=== PATIENT | female | born 1940 | race African-American/Black ===

== ENCOUNTER 2016-09-13 11:09 | Emergency (ER) | payer MEDICARE, MEDICAID ==
[~2016-09-13] VITALS: Ht 167.6 cm; Wt 68.0 kg
[~2016-09-13 11:09] MED LIST: ACETAMINOP160 MG/54 ORAL; ATORVASTATIN CA20 MG ORAL; FUROSEMIDE20 M1 ORAL; LANTUS5 UNITS SUBQ; LISINOPRIL2.5 MG ORAL; METFORMIN HCL500 M1 ORAL; NORCO 5-325 TA1 EACH ORAL
--- NOTE | 2016-09-13 11:26 | Emergency Room Report ---
History of Present Illness General Chief Complaint: Edema Source: Patient, EMS Present Illness HPI Patient is a 75-year-old female who presented after increased bilateral lower extremity swelling. Patient had a recent history of fracture to her right hip. This was treated nonoperatively. Patient had no recent fever. jail had noticed increased swelling to both legs. She had not been vomiting. She had gradual onset of symptoms. Allergies: Coded Allergies: No Known Allergies (Verified , 12/31/09) Patient History Past Medical History: see triage record Reviewed Nursing Documentation: PMH: Agreed, PSxH: Agreed Nursing Documentation-PMH Past Medical History: No History, Except For Hx Hypertension: Yes Hx Pacemaker: No Hx Asthma: No Hx COPD: No Hx Diabetes: Yes Hx Cancer: No Hx Gastrointestinal Problems: No Hx Dialysis: No Hx Neurological Problems: No Hx Cerebrovascular Accident: No Hx Seizures: No Review of Systems All Other Systems: limited - by mental status Physical Exam Vital Signs Date Time Temp Pulse Resp B/P Pulse Ox O2 Delivery O2 Flow Rate FiO2 09/13/16 11:04 98.4 68 20 124/72 98 Room Air Sp02 EP Interpretation: reviewed, normal General Appearance: normal inspection, well appearing, no apparent distress, alert, GCS 15 Head: atraumatic ENT: normal ENT inspection, hearing grossly normal, normal voice Neck: normal inspection, full range of motion, supple, no bony tend Respiratory: normal inspection, no respiratory distress, no retraction, rales Cardiovascular #1: regular rate, rhythm, edema - bilateral lower extremity mild Gastrointestinal: normal inspection, normal bowel sounds, non tender, soft, no guarding, no hernia Genitourinary: no CVA tenderness Musculoskeletal: normal inspection, back normal, normal range of motion, tender - right leg externally rotated, shortened Neurologic: normal inspection, alert, responsive, speech normal Psychiatric: normal inspection, judgement/insight normal, mood/affect normal Skin: normal inspection, normal color, no rash Medical Decision Making Diagnostic Impression: Primary Impression: Edema ER Course Patient presented for lower extremity edema. Because of complexity of patient's case laboratory testing and imaging studies were ordered. The patient had known hip fracture. The a duplex ultrasound of the patient's bilateral lower extremity showed no evidence of deep venous thrombosis. Laboratory testing was unremarkable. The patient was noted to have minimal edema. Patient was sent back to her custodial. The patient was to return if she began having increased shortness of breath fever or other concerns Labs Test 09/13/16 11:48 09/13/16 14:11 White Blood Count 7.6 K/UL (4.8-10.8) Red Blood Count 3.88 M/UL (4.20-5.40) Hemoglobin 11.1 G/DL (12.0-16.0) Hematocrit 34.9 % (37.0-47.0) Mean Corpuscular Volume 90 FL (80-99) Mean Corpuscular Hemoglobin 28.6 PG (27.0-31.0) Mean Corpuscular Hemoglobin Concent 31.8 G/DL (32.0-36.0) Red Cell Distribution Width 13.8 % (11.6-14.8) Platelet Count 265 K/UL (150-450) Mean Platelet Volume 6.3 FL (6.5-10.1) Neutrophils (%) (Auto) 75.3 % (45.0-75.0) Lymphocytes (%) (Auto) 17.5 % (20.0-45.0) Monocytes (%) (Auto) 5.9 % (1.0-10.0) Eosinophils (%) (Auto) 0.6 % (0.0-3.0) Basophils (%) (Auto) 0.6 % (0.0-2.0) Sodium Level 142 mEQ/L (135-145) Potassium Level 4.3 mEQ/L (3.4-4.9) Chloride Level 101 mEQ/L (98-107) Carbon Dioxide Level 29 mEQ/L (20-30) Anion Gap 12 (5-15) Blood Urea Nitrogen 17 mg/dL (7-23) Creatinine 0.8 mg/dL (0.5-0.9) Estimat Glomerular Filtration Rate mL/min (>60) Glucose Level 182 mg/dL (74-106) Lactic Acid Level 1.30 mmol/L (0.66-2.22) Calcium Level 9.1 mg/dL (8.6-10.2) Total Bilirubin 0.5 mg/dL (0.0-1.2) Aspartate Amino Transf (AST/SGOT) 21 U/L (5-40) Alanine Aminotransferase (ALT/SGPT) 15 U/L (3-33) Alkaline Phosphatase 121 U/L (35-104) Total Creatine Kinase 46 U/L (26-140) Creatine Kinase MB < 1.5 ng/mL (< 3.8) Creatine Kinase MB Relative Index 3.2 Troponin I < 0.30 ng/mL (<=0.30) Pro-B-Type Natriuretic Peptide 304 pg/mL (0-450) Total Protein 7.2 g/dL (6.6-8.7) Albumin 3.7 g/dL (3.5-5.2) Globulin 3.5 g/dL Albumin/Globulin Ratio 1.0 (1.0-2.7) Urine Color Pale yellow Urine Appearance Clear Urine pH 5 (4.5-8.0) Urine Specific [place] 1.010 (1.005-1.035) Urine Protein Negative (NEGATIVE) Urine Glucose (UA) Negative (NEGATIVE) Urine Ketones Negative (NEGATIVE) Urine Occult Blood Negative (NEGATIVE) Urine Nitrite Negative (NEGATIVE) Urine Bilirubin Negative (NEGATIVE) Urine Urobilinogen Normal MG/DL (0.0-1.0) Urine Leukocyte Esterase Negative (NEGATIVE) Last Vital Signs Date Time Temp Pulse Resp B/P Pulse Ox O2 Delivery O2 Flow Rate FiO2 09/13/16 11:04 98.4 68 20 124/72 98 Room Air Status: improved Disposition: XF SNF Condition: Stable Kanu Ornelas Sep 13, 2016 11:26
[2016-09-13 11:30] VITALS: BP 127/82
[2016-09-13 12:00] LABS: BASOPHILS % (AUTO) 0.6 % (0.0-2.0); EOSINOPHILS % (AUTO) 0.6 % (0.0-3.0); LYMPHOCYTES % (AUTO) 17.5 % (20.0-45.0); MEAN CORPUSCULAR HEMOGLOBIN 28.6 PG (27.0-31.0); MEAN CORPUSCULAR HGB CONC 31.8 G/DL (32.0-36.0); MEAN CORPUSCULAR VOLUME 90 FL (80-99); MEAN PLATELET VOLUME 6.3 FL (6.5-10.1); MONOCYTES % (AUTO) 5.9 % (1.0-10.0); NEUTROPHILS % (AUTO) 75.3 % (45.0-75.0); PLATELET COUNT 265 K/UL (150-450); RED BLOOD COUNT 3.88 M/UL (4.20-5.40); RED CELL DISTRIBUTION WIDTH 13.8 % (11.6-14.8); WHITE BLOOD COUNT 7.6 K/UL (4.8-10.8)
[2016-09-13 12:10] LABS: ALANINE AMINOTRANSFERASE 15 U/L (3-33); ANION GAP 12 (5-15); ASPARTATE AMINO TRANSFERASE 21 U/L (5-40); CALCIUM 9.1 mg/dL (8.6-10.2); CARBON DIOXIDE 29 mEQ/L (20-30); CHLORIDE 101 mEQ/L (98-107); CREATININE 0.8 mg/dL (0.5-0.9); HEMOLYSIS 9; POTASSIUM 4.3 mEQ/L (3.4-4.9); SODIUM 142 mEQ/L (135-145); TOTAL PROTEIN 7.2 g/dL (6.6-8.7); TROPONIN I < 0.30 ng/mL (<=0.30)
[2016-09-13 12:21] LABS: CKMB < 1.5 ng/mL (< 3.8)
[2016-09-13] MEDS ORDERED: MILK OF MA400 MG/51 ORAL (14:24)
[2016-09-13] MEDS ORDERED: VITAMIN C250 MG ORAL (14:24)
[2016-09-13] MEDS ORDERED: DOCUSATE SODIU100 MG ORAL (14:24)
[2016-09-13] MEDS ORDERED: MULTIVITAMINS1 EAC8 ORAL (14:24)
[2016-09-13] MEDS ORDERED: PRO-STAT LIQUID30 ML ORAL (14:24)
[2016-09-13 14:39] LABS: APPEARANCE,URINE CLEAR; KETONES,URINE NEGATIVE (NEGATIVE); LEUKOCYTE ESTERASE ,URINE NEGATIVE (NEGATIVE); NITRITE,URINE NEGATIVE (NEGATIVE); PH,URINE 5 (4.5-8.0); PROTEIN,URINE NEGATIVE (NEGATIVE); UROBILINOGEN,URINE NORMAL MG/DL (0.0-1.0)
[2016-09-13 16:00] VITALS: BP 118/75
[2016-09-13 16:14] VITALS: BP 118/75
--- NOTE | 2016-09-14 10:29 | Diagnostic Imaging Report ---
Indication: Dyspnea Comparison: 08/12/16 A single view chest radiograph was obtained. Findings: Cardiomegaly is present but stable. Lung volumes are low on the current study. There is no definite infiltrate identified. Aorta is enlarged. Bones are osteopenic. Vascular calcifications are present. Impression: No acute disease
--- NOTE | 2016-09-16 18:02 | Cardiology Report ---
APPROVED REPORT EKG Measurement Heart [id number] Unusual P axis and short OR, probable junctional rhythm Abnormal ECG
--- NOTE | 2016-09-16 23:19 | Diagnostic Imaging Report ---
APPROVED REPORT CPT Code: 66242 Present Symptoms Lower Extremity Pain: Bilateral BILATERAL: Imaging reveals a patent deep venous system bilaterally. There is no evidence of thrombus within the femoral, popliteal or tibial segments. The greater saphenous veins are also within normal limits. Doppler indicates normal spontaneous flow within these segments.
== END 2016-09-13 16:14 ==
LOC: EDBD 11:09 → EMR 12:54
DX: R60.9 Edema, unspecified (principal); E11.9 Type 2 diabetes mellitus without complications; I10 Essential (primary) hypertension
CPT/HCPCS: 36415; 71010; 80053; 81003; 82550; 82553; 82962; 83605; 83880; 84484; 85025; 87040; 93005; 93970; 99283

== ENCOUNTER 2016-10-27 03:04 | Inpatient (IN) | payer MEDICAID, MEDICARE ==
[~2016-10-27] VITALS: Ht 154.9 cm; Wt 59.0 kg
[2016-10-27] VITALS (7 sets, daily range): BP systolic 126–165; BP diastolic 64–87
[~2016-10-27 03:04] MED LIST changes: +DOCUSATE SODIU100 MG ORAL; +MILK OF MA400 MG/51 ORAL; +MULTIVITAMINS1 EAC8 ORAL; +PRO-STAT LIQUID30 ML ORAL; +VITAMIN C250 MG ORAL
[2016-10-27] MEDS ORDERED: D5 1/2NS 1,000 ML IV SCH (03:15)
[2016-10-27 04:20] LABS: MEAN CORPUSCULAR HEMOGLOBIN 26.9 PG (27.0-31.0); MEAN CORPUSCULAR HGB CONC 31.2 G/DL (32.0-36.0); MEAN CORPUSCULAR VOLUME 86 FL (80-99); MEAN PLATELET VOLUME 6.7 FL (6.5-10.1); PLATELET COUNT 272 K/UL (150-450); RED BLOOD COUNT 4.21 M/UL (4.20-5.40); RED CELL DISTRIBUTION WIDTH 13.4 % (11.6-14.8); WHITE BLOOD COUNT 11.6 K/UL (4.8-10.8)
--- NOTE | 2016-10-27 04:27 | Emergency Room Report ---
History of Present Illness General Chief Complaint: Abnormal Labs Source: Patient Present Illness HPI 76-year-old female presents ED for evaluation. Per EMS patient was hypoglycemic at convalescent home. Accu-Chek was in the 30s. Patient was given glucagon in the field. Accu-Chek in ED slightly improved. Per EMS patient had blood sugar greater than 400 last night and was then given insulin by nursing staff. Upon arrival patient is lethargic but awake. Protecting airway. Unable to provide any additional history at this time. No reported fevers chills. No reported chest pain shortness of breath. No other aggravating relieving factors. No other associated symptoms Allergies: Coded Allergies: No Known Allergies (Verified , 12/31/09) Patient History Past Medical History: DM, HTN Pertinent Family History: none Social History: Denies: alcohol use, drug use, smoking Now: No Immunizations: UTD Reviewed Nursing Documentation: PMH: Agreed, PSxH: Agreed Nursing Documentation-PMH Hx Hypertension: Yes Hx Pacemaker: No Hx Asthma: No Hx COPD: No Hx Diabetes: Yes Hx Cancer: No Hx Gastrointestinal Problems: No Hx Dialysis: No Hx Neurological Problems: No Hx Cerebrovascular Accident: No Hx Seizures: No Review of Systems All Other Systems: negative except mentioned in HPI Physical Exam Vital Signs Date Time Temp Pulse Resp B/P Pulse Ox O2 Delivery O2 Flow Rate FiO2 10/27/16 03:13 97.2 70 21 144/70 100 Room Air Sp02 EP Interpretation: reviewed, normal General Appearance: lethargic, thin Head: normocephalic Eyes: bilateral eye PERRL, bilateral eye normal inspection ENT: normal ENT inspection Neck: full range of motion Respiratory: chest non-tender, lungs clear, normal breath sounds, speaking full sentences Cardiovascular #1: regular rate, rhythm, no edema Gastrointestinal: normal bowel sounds, non tender, soft, non-distended, no guarding, no rebound Rectal: deferred Genitourinary: no CVA tenderness Musculoskeletal: normal inspection Neurologic: other - lethargic Psychiatric: other - lethargic Skin: normal inspection Lymphatic: normal inspection Medical Decision Making Diagnostic Impression: Primary Impression: Hypoglycemia ER Course Hospital Course 76-year-old female presenting to ED with lethargy, low FS in field. Given glucagon Differential diagnoses include: dehyration, sepsis, hypoglycemia Clinical course Patient placed on stretcher. 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 Accu-Chek in ED in his 70s. After initial history and physical I ordered labs, D5 1/2 NS Labs-glucose 230, electrolytes ok, noted leukocytosis, hb/hct stable, UA + bacteria antibiotics given. Patient on long-acting medications and will require admission. Case discussed with Dr. Michaels and he agreed to accept the patient to his service for further care and support i. I feel this is a highly complex case requiring extensive working including EKG/Rhythm strip, Xray/CT/US, Blood/urine lab work, repeat exams while in ED, and administration of strong opiates/narcotics for pain control, admission to hospital or close patient follow up. diagnosis - hypoglycemia admitted to floor in serious condition Labs Test 10/27/16 03:54 10/27/16 04:17 White Blood Count 11.6 K/UL (4.8-10.8) Red Blood Count 4.21 M/UL (4.20-5.40) Hemoglobin 11.3 G/DL (12.0-16.0) Hematocrit 36.3 % (37.0-47.0) Mean Corpuscular Volume 86 FL (80-99) Mean Corpuscular Hemoglobin 26.9 PG (27.0-31.0) Mean Corpuscular Hemoglobin Concent 31.2 G/DL (32.0-36.0) Red Cell Distribution Width 13.4 % (11.6-14.8) Platelet Count 272 K/UL (150-450) Mean Platelet Volume 6.7 FL (6.5-10.1) Neutrophils (%) (Auto) % (45.0-75.0) Lymphocytes (%) (Auto) % (20.0-45.0) Monocytes (%) (Auto) % (1.0-10.0) Eosinophils (%) (Auto) % (0.0-3.0) Basophils (%) (Auto) % (0.0-2.0) Sodium Level 142 mEQ/L (135-145) Potassium Level 3.5 mEQ/L (3.4-4.9) Chloride Level 105 mEQ/L (98-107) Carbon Dioxide Level 19 mEQ/L (20-30) Anion Gap 18 (5-15) Blood Urea Nitrogen 23 mg/dL (7-23) Creatinine 0.8 mg/dL (0.5-0.9) Estimat Glomerular Filtration Rate mL/min (>60) Glucose Level 230 mg/dL (74-106) Calcium Level 8.6 mg/dL (8.6-10.2) Total Bilirubin 0.3 mg/dL (0.0-1.2) Aspartate Amino Transf (AST/SGOT) 26 U/L (5-40) Alanine Aminotransferase (ALT/SGPT) 20 U/L (3-33) Alkaline Phosphatase 99 U/L (35-104) Total Creatine Kinase 56 U/L (26-140) Troponin I < 0.30 ng/mL (<=0.30) Total Protein 7.1 g/dL (6.6-8.7) Albumin 3.5 g/dL (3.5-5.2) Globulin 3.6 g/dL Albumin/Globulin Ratio 0.9 (1.0-2.7) Urine Color Yellow Urine Appearance Slightly cloudy Urine pH 5 (4.5-8.0) Urine Specific [place] 1.020 (1.005-1.035) Urine Protein 2+ (NEGATIVE) Urine Glucose (UA) 1+ (NEGATIVE) Urine Ketones Negative (NEGATIVE) Urine Occult Blood 1+ (NEGATIVE) Urine Nitrite Negative (NEGATIVE) Urine Bilirubin Negative (NEGATIVE) Urine Urobilinogen Normal MG/DL (0.0-1.0) Urine Leukocyte Esterase 1+ (NEGATIVE) Urine RBC 2-4 /HPF (0 - 2) Urine WBC 0-2 /HPF (0 - 2) Urine Squamous Epithelial Cells Few /LPF (NONE/OCC) Urine Calcium Oxalate Crystals Many /LPF (NONE) Urine Bacteria Few /HPF (NONE) Urine Fine Granular Casts 2-4 /LPF (NONE) Urine Coarse Granular Casts 5-10 /LPF (NONE) EKG Diagnostic Results Rate: normal Rhythm: NSR ST Segments: no acute changes ASA given to the pt in ED: No Rhythm Strip Diag. Results EP Interpretation: yes Rhythm: NSR, no PVC's, no ectopy Chest X-Ray Diagnostic Results EP Interpretation: Yes Findings: no consolidation, no effusion, no pneumothorax, no acute cardiopulmonary disease, other - cardiomegaly Number of Views: 1 Last Vital Signs Date Time Temp Pulse Resp B/P Pulse Ox O2 Delivery O2 Flow Rate FiO2 10/27/16 03:13 97.2 70 21 144/70 100 Room Air Status: improved Disposition: ADMITTED INPATIENT Condition: Serious Referrals: YAQUELIN MICHAELS (PCP) ELYSIA THOMSON M.D. Oct 27, 2016 04:26
[2016-10-27 04:41] LABS: APPEARANCE,URINE SLIGHTLY CLOUDY; KETONES,URINE NEGATIVE (NEGATIVE); LEUKOCYTE ESTERASE ,URINE 1+ (NEGATIVE); NITRITE,URINE NEGATIVE (NEGATIVE); PH,URINE 5 (4.5-8.0); PROTEIN,URINE 2+ (NEGATIVE); UROBILINOGEN,URINE NORMAL MG/DL (0.0-1.0)
[2016-10-27 04:50] LABS: BACTERIA,URINE FEW /HPF; CALCIUM OXALATE CRYSTALS,UR MANY /LPF; SQUAMOUS EPITHELIAL CELL,UR FEW /LPF (NONE/OCC); WBC,URINE 0-2 /HPF (0 - 2)
[2016-10-27 05:02] LABS: TROPONIN I < 0.30 ng/mL (<=0.30)
[2016-10-27 05:05] LABS: ALANINE AMINOTRANSFERASE 20 U/L (3-33); ALBUMIN/GLOBULIN RATIO 0.9 (1.0-2.7); ANION GAP 18 (5-15); ASPARTATE AMINO TRANSFERASE 26 U/L (5-40); CALCIUM 8.6 mg/dL (8.6-10.2); CARBON DIOXIDE 19 mEQ/L (20-30); CHLORIDE 105 mEQ/L (98-107); CREATININE 0.8 mg/dL (0.5-0.9); HEMOLYSIS 9; POTASSIUM 3.5 mEQ/L (3.4-4.9); SODIUM 142 mEQ/L (135-145); TOTAL PROTEIN 7.1 g/dL (6.6-8.7)
[2016-10-27] MEDS ORDERED: cefTRIAXone 1 GM in NS 55 ML IVPB ONE (05:15)
[2016-10-27] MEDS ORDERED: Mylanta II UD 30ml ORAL PRN (07:15)
[2016-10-27] MEDS ORDERED: Miralax 17gm pkt ORAL PRN (07:15)
[2016-10-27] MEDS ORDERED: Nitroglycerin Subl 0.4mg tab (Bottle Of 25) SL PRN (07:15)
[2016-10-27] MEDS ORDERED: DuoNeb 0.5-3(2.5)mg/3ml neb HHN PRN (07:15)
[2016-10-27 07:22] LABS: CKMB 1.8 ng/mL (< 3.8)
[2016-10-27] MEDS ORDERED: Cefepime HCl 1 GM in D5W 55 ML IV SCH (09:00)
--- NOTE | 2016-10-27 10:00 | Cardiology Report ---
APPROVED REPORT EKG Measurement Heart [id number] [place] 102P [id number] Ectopic atrial rhythm vs accelerated junctional rhythm Nonspecific T wave abnormality Abnormal ECG
[2016-10-27] MEDS: Cefepime HCl 1 GM in D5W 55 ML IV SCH (10:53)
--- NOTE | 2016-10-27 10:54 | Diagnostic Imaging Report ---
Indication: Chest Pain Comparison: 09/13/16 A single view chest radiograph was obtained. Findings: The heart is enlarged. Central vascular prominence demonstrated. Bones are osteopenic. Impression: No acute findings accounting for low lung volumes
[2016-10-27] MEDS: Lisinopril 2.5mg tab ORAL SCH (10:56)
[2016-10-27] MEDS: Heparin 5000 units/ml inj SUBQ SCH ×2 (10:59→20:56)
[2016-10-27] MEDS: NovoLOG Insulin Flexpen SUBQ SCH ×3 (11:36→20:59)
--- NOTE | 2016-10-27 16:06 | Consultation ---
Consult Note Consult Note ID CONSULT: Dict# [id number] Assessment/Plan ASSESSMENT: 76 y/o female with: // Leukocytosis - mild, afebrile r/o infection vs stress - UA benign, CXR: NAF // DM with hypo/hyperglycemia // NH resident // NKDA // Full Code PLAN: - continue empiric cefepime d# 1 - f/u cultures - monitor CBC, temperatures - monitor BMP - glucose control Thanks! Will follow ANDREA THURMAN Oct 27, 2016 16:06
--- NOTE | 2016-10-27 17:11 | History and Physical ---
History of Present Illness General Date patient seen: Oct 27, 2016 Reason for Hospitalization: Abnormal Labs Present Illness HPI 76-year-old female with hx of DM, dementia, bed ridden, recent fx of femur, detention resident presents ED with CC of hypoglycemic at convalescent home. Accu-Chek was in the 30s. Patient was given glucagon in the field. Accu -Chek in ED slightly improved. Per EMS patient had blood sugar greater than 400 last night and was then given insulin by nursing staff. Upon arrival patient is lethargic but awake. She was also found to have leukocytosis and UTI and admitted for further w/u. Allergies: Coded Allergies: No Known Allergies (Verified , 12/31/09) Medication History Scheduled Amino Acids/Protein Hydrolys (Pro-Stat Liquid), 30 ML ORAL TWICE A DAY, ( Reported) Ascorbic Acid* (Vitamin C*), 250 MG ORAL DAILY, (Reported) Atorvastatin Calcium* (Atorvastatin Calcium*), 10 MG ORAL BEDTIME, (Reported) Docusate Sodium* (Docusate Sodium*), 100 MG ORAL BID, (Reported) Furosemide* (Lasix*), 20 MG ORAL DAILY, (Reported) Insulin Glargine (Lantus), 5 SUBQ AC, (Reported) Lisinopril* (Lisinopril*), 2.5 MG ORAL DAILY, (Reported) Magnesium Hydroxide* (Milk Of Magnesia*), 30 ML ORAL DAILY, (Reported) Metformin Hcl* (Metformin Hcl*), 500 MG ORAL TWICE A DAY, (Reported) Multivitamin With Minerals (Multivitamins With Minerals*), 1 TAB ORAL DAILY, ( Reported) Scheduled PRN Acetaminophen* (Acetaminophen*), 325 MG ORAL Q6H PRN for Mild Pain/Temp > 100.5, (Reported) Hydrocodone Bit/Acetaminophen 5-325* ([place] 5-325*), 1 TAB ORAL Q4H PRN for For Pain, (Reported) Patient History Limited by: medical condition Healthcare decision maker Brandy Ugalde Resuscitation status Full Code Advanced Directive on File Past Medical/Surgical History Past Medical/Surgical History: (1) Dementia (2) Hip fracture (3) Diabetes mellitus Review of Systems All Other Systems: negative except mentioned in HPI Physical Exam General Appearance: cachetic Lines, tubes and drains: peripheral HEENT: normocephalic, atraumatic Neck: non-tender, normal alignment Respiratory/Chest: chest wall non-tender, lungs clear Breasts: no masses Cardiovascular/Chest: normal peripheral pulses Abdomen: normal bowel sounds, non tender Genitourinary/Rectal: normal genital exam Extremities: normal range of motion, normal inspection Skin Exam: normal pigmentation Last 24 Hour Vital Signs Date Time Temp Pulse Resp B/P Pulse Ox O2 Delivery O2 Flow Rate FiO2 10/27/16 12:01 97.6 88 20 150/77 98 Room Air 10/27/16 10:56 135/68 10/27/16 10:00 97.9 83 20 135/68 99 Room Air 10/27/16 09:48 75 20 126/66 98 Room Air 10/27/16 08:59 75 20 126/66 98 Room Air 10/27/16 06:20 98.0 68 21 165/64 100 Room Air 10/27/16 05:20 97.8 75 17 140/65 100 Room Air 10/27/16 03:20 97.2 73 16 130/87 100 Room Air 10/27/16 03:13 97.2 70 21 144/70 100 Room Air Intake and Output 10/26/16 10/27/16 19:00 07:00 # Voids 1 Laboratory Tests Test 10/27/16 03:54 10/27/16 04:17 White Blood Count 11.6 K/UL (4.8-10.8) H Red Blood Count 4.21 M/UL (4.20-5.40) Hemoglobin 11.3 G/DL (12.0-16.0) L Hematocrit 36.3 % (37.0-47.0) L Mean Corpuscular Volume 86 FL (80-99) Mean Corpuscular Hemoglobin 26.9 PG (27.0-31.0) L Mean Corpuscular Hemoglobin Concent 31.2 G/DL (32.0-36.0) L Red Cell Distribution Width 13.4 % (11.6-14.8) Platelet Count 272 K/UL (150-450) Mean Platelet Volume 6.7 FL (6.5-10.1) Neutrophils (%) (Auto) % (45.0-75.0) Lymphocytes (%) (Auto) % (20.0-45.0) Monocytes (%) (Auto) % (1.0-10.0) Eosinophils (%) (Auto) % (0.0-3.0) Basophils (%) (Auto) % (0.0-2.0) Sodium Level 142 mEQ/L (135-145) Potassium Level 3.5 mEQ/L (3.4-4.9) Chloride Level 105 mEQ/L (98-107) Carbon Dioxide Level 19 mEQ/L (20-30) L Anion Gap 18 (5-15) H Blood Urea Nitrogen 23 mg/dL (7-23) Creatinine 0.8 mg/dL (0.5-0.9) Estimat Glomerular Filtration Rate mL/min (>60) Glucose Level 230 mg/dL (74-106) H Calcium Level 8.6 mg/dL (8.6-10.2) Total Bilirubin 0.3 mg/dL (0.0-1.2) Aspartate Amino Transf (AST/SGOT) 26 U/L (5-40) Alanine Aminotransferase (ALT/SGPT) 20 U/L (3-33) Alkaline Phosphatase 99 U/L (35-104) Total Creatine Kinase 56 U/L (26-140) Creatine Kinase MB 1.8 ng/mL (< 3.8) Creatine Kinase MB Relative Index 3.2 Troponin I < 0.30 ng/mL (<=0.30) Total Protein 7.1 g/dL (6.6-8.7) Albumin 3.5 g/dL (3.5-5.2) Globulin 3.6 g/dL Albumin/Globulin Ratio 0.9 (1.0-2.7) L Urine Color Yellow Urine Appearance Slightly cloudy Urine pH 5 (4.5-8.0) Urine Specific [place] 1.020 (1.005-1.035) Urine Protein 2+ (NEGATIVE) H Urine Glucose (UA) 1+ (NEGATIVE) H Urine Ketones Negative (NEGATIVE) Urine Occult Blood 1+ (NEGATIVE) H Urine Nitrite Negative (NEGATIVE) Urine Bilirubin Negative (NEGATIVE) Urine Urobilinogen Normal MG/DL (0.0-1.0) Urine Leukocyte Esterase 1+ (NEGATIVE) H Urine RBC 2-4 /HPF (0 - 2) H Urine WBC 0-2 /HPF (0 - 2) Urine Squamous Epithelial Cells Few /LPF (NONE/OCC) Urine Calcium Oxalate Crystals Many /LPF (NONE) Urine Bacteria Few /HPF (NONE) Urine Fine Granular Casts 2-4 /LPF (NONE) H Urine Coarse Granular Casts 5-10 /LPF (NONE) H Height (Feet): 5 Height (Inches): 1.00 Weight (Pounds): 130 Medications Current Medications Medications (Trade) Dose Ordered Sig/Aaron Route PRN Reason Start Time Stop Time Status Last Admin Dose Admin Acetaminophen (Tylenol) 650 mg Q4H PRN ORAL fever 10/27/16 07:15 11/26/16 07:14 Al Hydroxide/Mg Hydroxide (Mylanta II) 30 ml Q6H PRN ORAL dyspepsia 10/27/16 07:15 11/26/16 07:14 Albuterol/ Ipratropium (DuoNeb 0.5-3(2.5)mg/3ml) 3 ml Q4H PRN HHN Shortness of Breath 10/27/16 07:15 11/01/16 07:14 Atorvastatin Calcium (Lipitor) 10 mg BEDTIME ORAL 10/27/16 21:00 11/26/16 20:59 Cefepime HCl/ Dextrose (Maxipime/D5W) 55 ml @ 110 mls/hr Q24H IV 10/27/16 09:00 11/03/16 08:59 10/27/16 10:53 Dextrose STAT PRN IV Hypoglycemia 10/27/16 07:15 11/26/16 07:14 Heparin Sodium (Porcine) (Heparin 5000 units/ml) 5,000 units EVERY 12 HOURS SUBQ 10/27/16 09:00 11/26/16 08:59 10/27/16 10:59 Insulin Aspart (NovoLOG) BEFORE MEALS AND HS SUBQ 10/27/16 11:30 11/26/16 11:29 10/27/16 11:36 Lisinopril (Zestril) 2.5 mg DAILY ORAL 10/27/16 09:00 11/26/16 08:59 10/27/16 10:56 Nitroglycerin (Ntg) 0.4 mg Q5MIN X 3 DOSES PRN SL Prn Chest Pain 10/27/16 07:15 11/26/16 07:14 Ondansetron HCl (Zofran) 4 mg Q6H PRN IVP Nausea & Vomiting 10/27/16 07:15 11/26/16 07:14 Polyethylene Glycol (Miralax) 17 gm DAILYPRN PRN ORAL Constipation 10/27/16 07:15 11/26/16 07:14 Temazepam (Restoril) 15 mg HSPRN PRN ORAL Insomnia 10/27/16 07:15 11/03/16 07:14 Assessment/Plan Problem List: (1) UTI (urinary tract infection) ICD Codes: N39.0 - Urinary tract infection, site not specified SNOMED: 68952399 (2) Hypoglycemia ICD Codes: E16.2 - Hypoglycemia, unspecified SNOMED: 890950962 (3) Diabetes mellitus ICD Codes: E11.9 - Type 2 diabetes mellitus without complications SNOMED: 25222838 (4) Dementia ICD Codes: F03.90 - Unspecified dementia without behavioral disturbance SNOMED: 57658171 (5) Hip fracture ICD Codes: S72.009A - Fracture of unspecified part of neck of unspecified femur , initial encounter for closed fracture SNOMED: 050843633 Assessment/Plan iv fluid iv antibiotics endo evaluation check cultures dvt prophylaxis pain management. YAQUELIN CORRAL Oct 27, 2016 17:11
[2016-10-27] MEDS: LORazepam Inj 2mg/ml 1ml IV PRN (22:27)
[2016-10-28] VITALS (7 sets, daily range): BP systolic 98–177; BP diastolic 55–77
--- NOTE | 2016-10-28 00:38 | Consultation ---
DATE OF CONSULTATION: 10/27/2016 INFECTIOUS DISEASE CONSULTATION CONSULTING PHYSICIAN: Tayo Vaughn M.D. REQUESTING PHYSICIAN: Kristy Michaels M.D. REASON FOR CONSULTATION: Leukocytosis. HISTORY OF PRESENT ILLNESS: This is a 76-year-old diabetic female, senior care resident, admitted on 10/27/2016 with hypoglycemia. The patient had reported hyperglycemia and was given insulin and later found to be hypoglycemic. She has associated mild leukocytosis and no fevers. Chest x-ray shows no acute findings. Urinalysis is benign. She has been started on empiric cefepime and ID now consulted to assist in management. PAST MEDICAL HISTORY: 1. Hypertension. 2. Hyperlipidemia. 3. Diabetes. FAMILY HISTORY: Noncontributory. SOCIAL HISTORY: The patient is resident of a senior care. No active tobacco, alcohol, or illicit drug abuse. ALLERGIES: No known drug allergies. MEDICATIONS: 1. Cefepime. 2. Lipitor. 3. Lisinopril. 4. Subcutaneous heparin. REVIEW OF SYSTEMS: As per history of present illness. Ten systems reviewed. All pertinent positives and negatives noted. PHYSICAL EXAMINATION: VITAL SIGNS: Maximum temperature 98 degrees, blood pressure 150/77, heart rate in the 90s, respiratory rate 20, and saturating 98% on room air. GENERAL: No apparent distress. Nontoxic appearing. CARDIOVASCULAR: Regular rate and rhythm. No murmurs. PULMONARY: Clear to auscultation bilaterally. ABDOMEN: Bowel sounds present. Soft, nondistended, and nontender. EXTREMITIES: No edema. LABORATORY DATA: White blood cell count 11.6, hemoglobin 11.3, and platelets 272,000. Sodium 142, potassium 3.5, chloride 105, bicarbonates 19 BUN 23, and creatinine 0.8. Liver function tests within normal limits. Troponin negative x1. MICROBIOLOGY: 1. On 10/27/2015, sputum culture pending. 2. On 10/27/2015, Legionella urine antigen pending. IMAGIN. On 10/27/2016, chest x-ray low lung volumes and no acute findings. ASSESSMENT: 1. Leukocytosis, mild and afebrile. Rule out infection versus stress. Urinalysis is benign. Chest x-ray shows no acute findings. 2. Diabetes with hypoglycemia. 3. [facility] resident. 4. No known drug allergies. 5. Full Code. PLAN: 1. Continue empiric cefepime day #1. 2. Follow up cultures. 3. Monitor CBC and temperatures. 4. Monitor BMP. 5. Glucose control. Thank you. We will follow. Tayo Vaughn M.D. DR: Emanuel JOB#: [id number] CC: Kristy Michaels M.D.; Fax#: [phone] Lord M.D; Fax#: [phone]
[2016-10-28] MEDS: LORazepam Inj 2mg/ml 1ml IV PRN ×3 (03:48→22:07)
[2016-10-28] MEDS: NovoLOG Insulin Flexpen SUBQ SCH ×4 (06:20→21:34)
[2016-10-28 06:58] LABS: BASOPHILS % (AUTO) 0.3 % (0.0-2.0); EOSINOPHILS % (AUTO) 1.3 % (0.0-3.0); MEAN CORPUSCULAR HGB CONC 31.2 G/DL (32.0-36.0); MEAN CORPUSCULAR VOLUME 87 FL (80-99); MEAN PLATELET VOLUME 7.4 FL (6.5-10.1); MONOCYTES % (AUTO) 5.3 % (1.0-10.0); NEUTROPHILS % (AUTO) 82.2 % (45.0-75.0); PLATELET COUNT 195 K/UL (150-450); RED BLOOD COUNT 3.64 M/UL (4.20-5.40); RED CELL DISTRIBUTION WIDTH 13.4 % (11.6-14.8)
[2016-10-28 07:18] LABS: ANION GAP 16 (5-15); CALCIUM 8.2 mg/dL (8.6-10.2); CARBON DIOXIDE 22 mEQ/L (20-30); CHLORIDE 105 mEQ/L (98-107); CREATININE 0.8 mg/dL (0.5-0.9); HEMOLYSIS 5; PHOSPHORUS 3.7 mg/dL (2.5-4.8); POTASSIUM 3.9 mEQ/L (3.4-4.9); SODIUM 143 mEQ/L (135-145)
--- NOTE | 2016-10-28 08:28 | Consultation ---
DATE OF CONSULTATION: 10/28/2016 ENDOCRINOLOGY CONSULTATION: CONSULTING PHYSICIAN: Marcos Valero M.D. REFERRING PHYSICIAN: Kristy Michaels M.D. REASON FOR CONSULTATION: Diabetes management and hypoglycemia. HISTORY OF PRESENT ILLNESS: This is a 76-year-old female resident of a [place] [facility] facility with history of diabetes, who had an elevated glucose at the retirement, but apparently the patient's blood sugar dropped. The patient was admitted to the hospital for evaluation was found to have leukocytosis. Urine is clean. Chest x-ray does not show any infection. The patient is admitted for observation and treatment. PAST MEDICAL HISTORY: 1. Diabetes. 2. Hypertension. 3. Dyslipidemia. FAMILY HISTORY: Noncontributory. SOCIAL HISTORY: The patient resides in a [place] [facility] facility. No smoking, alcohol, or drug use. ALLERGIES: None. MEDICATIONS: Cefepime, Lipitor, lisinopril, Lantus, and metformin. REVIEW OF SYSTEMS: As per history of present illness. PHYSICAL EXAMINATION: VITAL SIGNS: Temperature is 98 degrees, blood pressure 150/77, heart rate 90 degrees, and respiratory of 20. HEENT: Pupils are equal and reactive to light. Sclerae are anicteric. NECK: No JVD. HEART: Tachycardic. LUNGS: Clear. ABDOMEN: Positive bowel sounds. Soft. EXTREMITIES: Trace edema. LABORATORY VALUES: Sodium 140, potassium 3.5, chloride 105, bicarb 19, BUN 23, creatinine 0.8. DIAGNOSES: 1. Leukocytosis. 2. Hypoglycemia. 3. Diabetes, out of control. PLAN: Resume Metformin. Continue sliding scale. We will hold off on long-acting basal insulin for now. I will follow the patient during hospital stay. Thank you, Dr. Michaels, for the courtesy of this consultation. Marcos Valero M.D. DR: BASSEM JOB#: [id number] CC: JUAN MANUEL
[2016-10-28] MEDS: Lisinopril 2.5mg tab ORAL SCH (09:00)
[2016-10-28] MEDS: Cefepime HCl 1 GM in D5W 55 ML IV SCH (09:18)
[2016-10-28] MEDS: Heparin 5000 units/ml inj SUBQ SCH ×2 (09:19→21:33)
[2016-10-28] MEDS: metFORMIN 500mg tab ORAL SCH ×2 (12:17→17:56)
--- NOTE | 2016-10-28 14:55 | Infectious Diseases Prog Note ---
Assessment/Plan Assessment/Plan ASSESSMENT: 76 y/o female with: // Leukocytosis, mild - resolved, afebrile r/o infection vs stress. Cultures pending - UA benign, CXR: NAF // DM with hypo/hyperglycemia // NH resident // NKDA // Full Code PLAN: - continue empiric cefepime d# 2 pending cultures - f/u cultures - monitor CBC, temperatures - monitor BMP - glucose control Subjective Allergies: Coded Allergies: No Known Allergies (Verified , 12/31/09) Subjective remains afebrile, leukocytosis resolved cultures pending Objective Vital Signs Last 24 Hour Vital Signs Date Time Temp Pulse Resp B/P Pulse Ox O2 Delivery O2 Flow Rate FiO2 10/28/16 12:00 97.3 74 22 143/55 99 Room Air 10/28/16 09:00 103/62 10/28/16 08:00 96.8 52 18 103/62 97 Room Air 10/28/16 06:55 52 19 Room Air 10/28/16 04:00 97.0 69 16 117/67 98 Room Air 10/28/16 00:00 97.3 62 16 98/71 96 Room Air 10/27/16 20:00 97.6 73 19 151/86 97 Room Air 10/27/16 19:00 78 18 Room Air Height (Feet): 5 Height (Inches): 1.00 Weight (Pounds): 130 General Appearance: no acute distress Respiratory/Chest: no respiratory distress Cardiovascular: normal rate, regular rhythm Abdomen: normal bowel sounds, soft, non tender, non distended Laboratory Tests Test 10/28/16 06:30 White Blood Count 9.0 K/UL (4.8-10.8) Red Blood Count 3.64 M/UL (4.20-5.40) L Hemoglobin 9.9 G/DL (12.0-16.0) L Hematocrit 31.6 % (37.0-47.0) L Mean Corpuscular Volume 87 FL (80-99) Mean Corpuscular Hemoglobin 27.0 PG (27.0-31.0) Mean Corpuscular Hemoglobin Concent 31.2 G/DL (32.0-36.0) L Red Cell Distribution Width 13.4 % (11.6-14.8) Platelet Count 195 K/UL (150-450) Mean Platelet Volume 7.4 FL (6.5-10.1) Neutrophils (%) (Auto) 82.2 % (45.0-75.0) H Lymphocytes (%) (Auto) 11.0 % (20.0-45.0) L Monocytes (%) (Auto) 5.3 % (1.0-10.0) Eosinophils (%) (Auto) 1.3 % (0.0-3.0) Basophils (%) (Auto) 0.3 % (0.0-2.0) Sodium Level 143 mEQ/L (135-145) Potassium Level 3.9 mEQ/L (3.4-4.9) Chloride Level 105 mEQ/L (98-107) Carbon Dioxide Level 22 mEQ/L (20-30) Anion Gap 16 (5-15) H Blood Urea Nitrogen 18 mg/dL (7-23) Creatinine 0.8 mg/dL (0.5-0.9) Estimat Glomerular Filtration Rate mL/min (>60) Glucose Level 207 mg/dL (74-106) H Calcium Level 8.2 mg/dL (8.6-10.2) L Phosphorus Level 3.7 mg/dL (2.5-4.8) Albumin 3.2 g/dL (3.5-5.2) L Current Medications Medications (Trade) Dose Ordered Sig/Aaron Route PRN Reason Start Time Stop Time Status Last Admin Dose Admin Acetaminophen (Tylenol) 650 mg Q4H PRN ORAL fever 10/27/16 07:15 11/26/16 07:14 Al Hydroxide/Mg Hydroxide (Mylanta II) 30 ml Q6H PRN ORAL dyspepsia 10/27/16 07:15 11/26/16 07:14 Albuterol/ Ipratropium (DuoNeb 0.5-3(2.5)mg/3ml) 3 ml Q4H PRN HHN Shortness of Breath 10/27/16 07:15 11/01/16 07:14 Atorvastatin Calcium (Lipitor) 10 mg BEDTIME ORAL 10/27/16 21:00 11/26/16 20:59 10/27/16 20:55 Cefepime HCl/ Dextrose (Maxipime/D5W) 55 ml @ 110 mls/hr Q24H IV 10/27/16 09:00 11/03/16 08:59 10/28/16 09:18 Dextrose STAT PRN IV Hypoglycemia 10/27/16 07:15 11/26/16 07:14 Heparin Sodium (Porcine) (Heparin 5000 units/ml) 5,000 units EVERY 12 HOURS SUBQ 10/27/16 09:00 11/26/16 08:59 10/28/16 09:19 Insulin Aspart (NovoLOG) BEFORE MEALS AND HS SUBQ 10/27/16 11:30 11/26/16 11:29 10/28/16 12:18 Lisinopril (Zestril) 2.5 mg DAILY ORAL 10/27/16 09:00 11/26/16 08:59 10/27/16 10:56 Lorazepam (Ativan 2mg/ml 1ml) 2 mg Q4H PRN IV For Anxiety 10/27/16 21:00 11/03/16 20:59 10/28/16 14:08 Metformin HCl (Glucophage) 500 mg TIAC ORAL 10/28/16 11:30 11/27/16 11:29 10/28/16 12:17 Nitroglycerin (Ntg) 0.4 mg Q5MIN X 3 DOSES PRN SL Prn Chest Pain 10/27/16 07:15 11/26/16 07:14 Ondansetron HCl (Zofran) 4 mg Q6H PRN IVP Nausea & Vomiting 10/27/16 07:15 11/26/16 07:14 Polyethylene Glycol (Miralax) 17 gm DAILYPRN PRN ORAL Constipation 10/27/16 07:15 11/26/16 07:14 Temazepam (Restoril) 15 mg HSPRN PRN ORAL Insomnia 10/27/16 07:15 11/03/16 07:14 ANDREA THURMAN Oct 28, 2016 14:55
--- NOTE | 2016-10-28 17:03 | Pulmonology Progress Note ---
Assessment/Plan Problems: (1) UTI (urinary tract infection) (2) Hypoglycemia (3) Diabetes mellitus (4) Dementia (5) Hip fracture Assessment/Plan continue cefepime pending cultures hold off long acting insulin check electrolytes pain control Subjective ROS Limited/Unobtainable: No Constitutional: Reports: no symptoms HEENT: Repors: no symptoms Respiratory: Reports: no symptoms Allergies: Coded Allergies: No Known Allergies (Verified , 12/31/09) Objective Last 24 Hour Vital Signs Date Time Temp Pulse Resp B/P Pulse Ox O2 Delivery O2 Flow Rate FiO2 10/28/16 15:35 97.2 68 15 148/77 92 Room Air 10/28/16 12:00 97.3 74 22 143/55 99 Room Air 10/28/16 09:00 103/62 10/28/16 08:00 96.8 52 18 103/62 97 Room Air 10/28/16 06:55 52 19 Room Air 10/28/16 04:00 97.0 69 16 117/67 98 Room Air 10/28/16 00:00 97.3 62 16 98/71 96 Room Air 10/27/16 20:00 97.6 73 19 151/86 97 Room Air 10/27/16 19:00 78 18 Room Air Intake and Output 10/27/16 10/28/16 19:00 07:00 Intake Total 820 ml Balance 820 ml Intake Oral 350 ml IV Total 470 ml # Voids 2 3 # Bowel Movements 2 2 Objective General Appearance: cachetic Lines, tubes and drains: peripheral HEENT: normocephalic, atraumatic Neck: non-tender, normal alignment Respiratory/Chest: chest wall non-tender, lungs clear Breasts: no masses Cardiovascular/Chest: normal peripheral pulses Abdomen: normal bowel sounds, non tender Genitourinary/Rectal: normal genital exam Extremities: normal range of motion, normal inspection Skin Exam: normal pigmentation Laboratory Tests 10/28/16 06:30: White Blood Count 9.0, Red Blood Count 3.64L, Hemoglobin 9.9L, Hematocrit 31.6L , Mean Corpuscular Volume 87, Mean Corpuscular Hemoglobin 27.0, Mean Corpuscular Hemoglobin Concent 31.2L, Red Cell Distribution Width 13.4, Platelet Count 195, Mean Platelet Volume 7.4, Neutrophils (%) (Auto) 82.2H, Lymphocytes (%) (Auto) 11.0L, Monocytes (%) (Auto) 5.3, Eosinophils (%) (Auto) 1.3, Basophils (%) (Auto) 0.3, Sodium Level 143, Potassium Level 3.9, Chloride Level 105, Carbon Dioxide Level 22, Anion Gap 16H, Blood Urea Nitrogen 18, Creatinine 0.8, Estimat Glomerular Filtration Rate , Glucose Level 207H, Calcium Level 8.2L, Phosphorus Level 3.7, Albumin 3.2L Current Medications Medications (Trade) Dose Ordered Sig/Aaron Route PRN Reason Start Time Stop Time Status Last Admin Dose Admin Acetaminophen (Tylenol) 650 mg Q4H PRN ORAL fever 10/27/16 07:15 11/26/16 07:14 Al Hydroxide/Mg Hydroxide (Mylanta II) 30 ml Q6H PRN ORAL dyspepsia 10/27/16 07:15 11/26/16 07:14 Albuterol/ Ipratropium (DuoNeb 0.5-3(2.5)mg/3ml) 3 ml Q4H PRN HHN Shortness of Breath 10/27/16 07:15 11/01/16 07:14 Atorvastatin Calcium (Lipitor) 10 mg BEDTIME ORAL 10/27/16 21:00 11/26/16 20:59 10/27/16 20:55 Cefepime HCl/ Dextrose (Maxipime/D5W) 55 ml @ 110 mls/hr Q24H IV 10/27/16 09:00 11/03/16 08:59 10/28/16 09:18 Dextrose STAT PRN IV Hypoglycemia 10/27/16 07:15 11/26/16 07:14 Heparin Sodium (Porcine) (Heparin 5000 units/ml) 5,000 units EVERY 12 HOURS SUBQ 10/27/16 09:00 11/26/16 08:59 10/28/16 09:19 Insulin Aspart (NovoLOG) BEFORE MEALS AND HS SUBQ 10/27/16 11:30 11/26/16 11:29 10/28/16 12:18 Lisinopril (Zestril) 2.5 mg DAILY ORAL 10/27/16 09:00 11/26/16 08:59 10/27/16 10:56 Lorazepam (Ativan 2mg/ml 1ml) 2 mg Q4H PRN IV For Anxiety 2/20/17 21:00 11/03/16 20:59 10/28/16 14:08 Metformin HCl (Glucophage) 500 mg TIAC ORAL 10/28/16 11:30 11/27/16 11:29 10/28/16 12:17 Nitroglycerin (Ntg) 0.4 mg Q5MIN X 3 DOSES PRN SL Prn Chest Pain 10/27/16 07:15 11/26/16 07:14 Ondansetron HCl (Zofran) 4 mg Q6H PRN IVP Nausea & Vomiting 10/27/16 07:15 11/26/16 07:14 Polyethylene Glycol (Miralax) 17 gm DAILYPRN PRN ORAL Constipation 10/27/16 07:15 11/26/16 07:14 Temazepam (Restoril) 15 mg HSPRN PRN ORAL Insomnia 10/27/16 07:15 11/03/16 07:14 YAQUELIN CORRAL Oct 28, 2016 17:03
[2016-10-29 04:00] VITALS: BP_SYST 135
[2016-10-29] MEDS: metFORMIN 500mg tab ORAL SCH ×3 (06:25→17:18)
[2016-10-29] MEDS: NovoLOG Insulin Flexpen SUBQ SCH ×4 (06:33→20:32)
--- NOTE | 2016-10-29 06:46 | General Progress Note ---
Assessment/Plan Problem List: (1) Hypoglycemia ICD Codes: E16.2 - Hypoglycemia, unspecified SNOMED: 541812292 (2) Diabetes mellitus ICD Codes: E11.9 - Type 2 diabetes mellitus without complications SNOMED: 75972674 (3) Dementia ICD Codes: F03.90 - Unspecified dementia without behavioral disturbance SNOMED: 13777546 Assessment/Plan glucose values are stable without hypoglycemia continue Metformin 500 mg tid + SSI Subjective ROS Limited/Unobtainable: Yes Allergies: Coded Allergies: No Known Allergies (Verified , 12/31/09) Subjective events noted - interval notes reviewed glucose values are stable without hypoglycemia Objective Last 24 Hour Vital Signs Date Time Temp Pulse Resp B/P Pulse Ox O2 Delivery O2 Flow Rate FiO2 10/29/16 04:00 97.5 67 17 135/ 97 Room Air 10/28/16 22:58 97.5 65 17 128/62 98 10/28/16 19:30 62 20 Room Air 21 10/28/16 19:24 97.5 65 17 177/74 99 Room Air 10/28/16 15:35 97.2 68 15 148/77 92 Room Air 10/28/16 12:00 97.3 74 22 143/55 99 Room Air 10/28/16 09:00 103/62 10/28/16 08:00 96.8 52 18 103/62 97 Room Air 10/28/16 06:55 52 19 Room Air Intake and Output 10/28/16 10/29/16 19:00 07:00 Intake Total 600 ml Balance 600 ml Intake Oral 600 ml # Voids 3 # Bowel Movements 3 1 Height (Feet): 5 Height (Inches): 1.00 Weight (Pounds): 130 General Appearance: no apparent distress EENT: pale conjunctivae Neck: normal alignment Cardiovascular: normal rate Respiratory/Chest: lungs clear Abdomen: normal bowel sounds Objective Current Medications Medications (Trade) Dose Ordered Sig/Aaron Route PRN Reason Start Time Stop Time Status Last Admin Dose Admin Acetaminophen (Tylenol) 650 mg Q4H PRN ORAL fever 10/27/16 07:15 11/26/16 07:14 Al Hydroxide/Mg Hydroxide (Mylanta II) 30 ml Q6H PRN ORAL dyspepsia 10/27/16 07:15 11/26/16 07:14 Albuterol/ Ipratropium (DuoNeb 0.5-3(2.5)mg/3ml) 3 ml Q4H PRN HHN Shortness of Breath 10/27/16 07:15 11/01/16 07:14 Atorvastatin Calcium (Lipitor) 10 mg BEDTIME ORAL 10/27/16 21:00 11/26/16 20:59 10/28/16 21:32 Cefepime HCl/ Dextrose (Maxipime/D5W) 55 ml @ 110 mls/hr Q24H IV 10/27/16 09:00 11/03/16 08:59 10/28/16 09:18 Dextrose STAT PRN IV Hypoglycemia 10/27/16 07:15 11/26/16 07:14 Heparin Sodium (Porcine) (Heparin 5000 units/ml) 5,000 units EVERY 12 HOURS SUBQ 10/27/16 09:00 11/26/16 08:59 10/28/16 21:33 Insulin Aspart (NovoLOG) BEFORE MEALS AND HS SUBQ 10/27/16 11:30 11/26/16 11:29 10/29/16 06:33 Lisinopril (Zestril) 2.5 mg DAILY ORAL 10/27/16 09:00 11/26/16 08:59 10/27/16 10:56 Lorazepam (Ativan 2mg/ml 1ml) 2 mg Q4H PRN IV For Anxiety 10/27/16 21:00 11/03/16 20:59 10/28/16 22:07 Metformin HCl (Glucophage) 500 mg TIAC ORAL 10/28/16 11:30 11/27/16 11:29 10/29/16 06:25 Nitroglycerin (Ntg) 0.4 mg Q5MIN X 3 DOSES PRN SL Prn Chest Pain 10/27/16 07:15 11/26/16 07:14 Ondansetron HCl (Zofran) 4 mg Q6H PRN IVP Nausea & Vomiting 10/27/16 07:15 11/26/16 07:14 Polyethylene Glycol (Miralax) 17 gm DAILYPRN PRN ORAL Constipation 10/27/16 07:15 11/26/16 07:14 Temazepam (Restoril) 15 mg HSPRN PRN ORAL Insomnia 10/27/16 07:15 11/03/16 07:14 Item Value Date Time Bedside Blood Glucose 169 mg/dl H 10/29/16 0633 Bedside Blood Glucose 156 mg/dl H 10/28/16 2134 Bedside Blood Glucose 148 mg/dl H 10/28/16 1756 Bedside Blood Glucose 146 mg/dl H 10/28/16 1218 Bedside Blood Glucose 190 mg/dl H 10/28/16 0620 JOCELINE ABRRON Oct 29, 2016 06:46
[2016-10-29 08:45] VITALS: BP 145/94
[2016-10-29] MEDS: Cefepime HCl 1 GM in D5W 55 ML IV SCH (08:45)
[2016-10-29] MEDS: Lisinopril 2.5mg tab ORAL SCH (08:45)
[2016-10-29] MEDS: Heparin 5000 units/ml inj SUBQ SCH ×2 (08:46→20:33)
[2016-10-29 12:07] VITALS: BP 132/74
--- NOTE | 2016-10-29 14:13 | Infectious Diseases Prog Note ---
Assessment/Plan Assessment/Plan ASSESSMENT: 76 y/o female with: // Leukocytosis, mild - resolved, afebrile r/o infection vs stress. Cultures pending - UA benign, CXR: NAF // DM with hypo/hyperglycemia // NH resident // NKDA // Full Code PLAN: - limit empiric cefepime d# 3 after today, monitor pt off of ABX - f/u cultures - monitor CBC, temperatures - monitor BMP - glucose control Subjective Allergies: Coded Allergies: No Known Allergies (Verified , 12/31/09) Subjective remains afebrile, leukocytosis resolved cultures pending Objective Vital Signs Last 24 Hour Vital Signs Date Time Temp Pulse Resp B/P Pulse Ox O2 Delivery O2 Flow Rate FiO2 10/29/16 12:07 97.5 66 20 132/74 99 Room Air 10/29/16 08:45 97.5 71 21 145/94 99 Room Air 10/29/16 08:45 145/94 10/29/16 08:25 65 20 Room Air 21 10/29/16 04:00 97.5 67 17 135/ 97 Room Air 10/28/16 22:58 97.5 65 17 128/62 98 10/28/16 19:30 62 20 Room Air 21 10/28/16 19:24 97.5 65 17 177/74 99 Room Air 10/28/16 15:35 97.2 68 15 148/77 92 Room Air Height (Feet): 5 Height (Inches): 1.00 Weight (Pounds): 130 General Appearance: no acute distress Respiratory/Chest: no respiratory distress Cardiovascular: normal rate, regular rhythm Abdomen: normal bowel sounds, soft, non tender, non distended Microbiology Date/Time Source Procedure Growth Status 10/27/16 06:00 Nasal Nares MRSA Culture - Final NO METHICILLIN RESISTANT STAPH AUREUS... Complete 10/27/16 06:16 Rectum VRE Culture - Final Enterococcus Faecalis - Vre Complete Current Medications Medications (Trade) Dose Ordered Sig/Aaron Route PRN Reason Start Time Stop Time Status Last Admin Dose Admin Acetaminophen (Tylenol) 650 mg Q4H PRN ORAL fever 10/27/16 07:15 11/26/16 07:14 Al Hydroxide/Mg Hydroxide (Mylanta II) 30 ml Q6H PRN ORAL dyspepsia 10/27/16 07:15 11/26/16 07:14 Albuterol/ Ipratropium (DuoNeb 0.5-3(2.5)mg/3ml) 3 ml Q4H PRN HHN Shortness of Breath 10/27/16 07:15 11/01/16 07:14 Atorvastatin Calcium (Lipitor) 10 mg BEDTIME ORAL 10/27/16 21:00 11/26/16 20:59 10/28/16 21:32 Cefepime HCl/ Dextrose (Maxipime/D5W) 55 ml @ 110 mls/hr Q24H IV 10/27/16 09:00 11/03/16 08:59 10/29/16 08:45 Dextrose STAT PRN IV Hypoglycemia 10/27/16 07:15 11/26/16 07:14 Heparin Sodium (Porcine) (Heparin 5000 units/ml) 5,000 units EVERY 12 HOURS SUBQ 10/27/16 09:00 11/26/16 08:59 10/29/16 08:46 Insulin Aspart (NovoLOG) BEFORE MEALS AND HS SUBQ 10/27/16 11:30 11/26/16 11:29 10/29/16 12:17 Lisinopril (Zestril) 2.5 mg DAILY ORAL 10/27/16 09:00 11/26/16 08:59 10/29/16 08:45 Lorazepam (Ativan 2mg/ml 1ml) 2 mg Q4H PRN IV For Anxiety 10/27/16 21:00 11/03/16 20:59 10/28/16 22:07 Metformin HCl (Glucophage) 500 mg TIAC ORAL 10/28/16 11:30 11/27/16 11:29 10/29/16 12:20 Nitroglycerin (Ntg) 0.4 mg Q5MIN X 3 DOSES PRN SL Prn Chest Pain 10/27/16 07:15 11/26/16 07:14 Ondansetron HCl (Zofran) 4 mg Q6H PRN IVP Nausea & Vomiting 10/27/16 07:15 11/26/16 07:14 Polyethylene Glycol (Miralax) 17 gm DAILYPRN PRN ORAL Constipation 10/27/16 07:15 11/26/16 07:14 Temazepam (Restoril) 15 mg HSPRN PRN ORAL Insomnia 10/27/16 07:15 11/03/16 07:14 ANDREA THURMAN Oct 29, 2016 14:13
--- NOTE | 2016-10-29 15:34 | Pulmonology Progress Note ---
Assessment/Plan Problems: (1) UTI (urinary tract infection) (2) Hypoglycemia (3) Diabetes mellitus (4) Dementia (5) Hip fracture Assessment/Plan continue cefepime pending cultures, afebrile, hold off long acting insulin check electrolytes pain control will dc to senior living in remains stable in am Subjective ROS Limited/Unobtainable: No Interval Events: comfortable Allergies: Coded Allergies: No Known Allergies (Verified , 12/31/09) Objective Last 24 Hour Vital Signs Date Time Temp Pulse Resp B/P Pulse Ox O2 Delivery O2 Flow Rate FiO2 10/29/16 12:07 97.5 66 20 132/74 99 Room Air 10/29/16 08:45 97.5 71 21 145/94 99 Room Air 10/29/16 08:45 145/94 10/29/16 08:25 65 20 Room Air 21 10/29/16 04:00 97.5 67 17 135/ 97 Room Air 10/28/16 22:58 97.5 65 17 128/62 98 10/28/16 19:30 62 20 Room Air 21 10/28/16 19:24 97.5 65 17 177/74 99 Room Air 10/28/16 15:35 97.2 68 15 148/77 92 Room Air Intake and Output 10/28/16 10/29/16 19:00 07:00 Intake Total 600 ml Balance 600 ml Intake Oral 600 ml # Voids 3 # Bowel Movements 3 1 Objective General Appearance: cachetic Lines, tubes and drains: peripheral HEENT: normocephalic, atraumatic Neck: non-tender, normal alignment Respiratory/Chest: chest wall non-tender, lungs clear Breasts: no masses Cardiovascular/Chest: normal peripheral pulses Abdomen: normal bowel sounds, non tender Genitourinary/Rectal: normal genital exam Extremities: normal range of motion, normal inspection Skin Exam: normal pigmentation Microbiology Date/Time Source Procedure Growth Status 10/27/16 06:00 Nasal Nares MRSA Culture - Final NO METHICILLIN RESISTANT STAPH AUREUS... Complete 10/27/16 06:16 Rectum VRE Culture - Final Enterococcus Faecalis - Vre Complete Current Medications Medications (Trade) Dose Ordered Sig/Aaron Route PRN Reason Start Time Stop Time Status Last Admin Dose Admin Acetaminophen (Tylenol) 650 mg Q4H PRN ORAL fever 10/27/16 07:15 11/26/16 07:14 Al Hydroxide/Mg Hydroxide (Mylanta II) 30 ml Q6H PRN ORAL dyspepsia 10/27/16 07:15 11/26/16 07:14 Albuterol/ Ipratropium (DuoNeb 0.5-3(2.5)mg/3ml) 3 ml Q4H PRN HHN Shortness of Breath 10/27/16 07:15 11/01/16 07:14 Atorvastatin Calcium (Lipitor) 10 mg BEDTIME ORAL 10/27/16 21:00 11/26/16 20:59 10/28/16 21:32 Cefepime HCl/ Dextrose (Maxipime/D5W) 55 ml @ 110 mls/hr Q24H IV 10/27/16 09:00 10/29/16 23:59 10/29/16 08:45 Dextrose STAT PRN IV Hypoglycemia 10/27/16 07:15 11/26/16 07:14 Heparin Sodium (Porcine) (Heparin 5000 units/ml) 5,000 units EVERY 12 HOURS SUBQ 10/27/16 09:00 11/26/16 08:59 10/29/16 08:46 Insulin Aspart (NovoLOG) BEFORE MEALS AND HS SUBQ 10/27/16 11:30 11/26/16 11:29 10/29/16 12:17 Lisinopril (Zestril) 2.5 mg DAILY ORAL 10/27/16 09:00 11/26/16 08:59 10/29/16 08:45 Lorazepam (Ativan 2mg/ml 1ml) 2 mg Q4H PRN IV For Anxiety 10/27/16 21:00 11/03/16 20:59 10/28/16 22:07 Metformin HCl (Glucophage) 500 mg TIAC ORAL 10/28/16 11:30 11/27/16 11:29 10/29/16 12:20 Nitroglycerin (Ntg) 0.4 mg Q5MIN X 3 DOSES PRN SL Prn Chest Pain 10/27/16 07:15 11/26/16 07:14 Ondansetron HCl (Zofran) 4 mg Q6H PRN IVP Nausea & Vomiting 10/27/16 07:15 11/26/16 07:14 Polyethylene Glycol (Miralax) 17 gm DAILYPRN PRN ORAL Constipation 10/27/16 07:15 11/26/16 07:14 Temazepam (Restoril) 15 mg HSPRN PRN ORAL Insomnia 10/27/16 07:15 11/03/16 07:14 YAQUELIN CORRAL Oct 29, 2016 15:34
[2016-10-29] MEDS ORDERED: NOVOLOG100 UNITS1 SUBQ (15:35)
[2016-10-29 16:00] VITALS: BP 130/74
[2016-10-29 16:22] VITALS: BP 144/85
[2016-10-29 16:34] LABS: PROTHROMBIN TIME 10.3 SEC (9.30-11.50)
[2016-10-29 16:46] LABS: BASOPHILS % (AUTO) 0.4 % (0.0-2.0); EOSINOPHILS % (AUTO) 1.4 % (0.0-3.0); LYMPHOCYTES % (AUTO) 19.6 % (20.0-45.0); MEAN CORPUSCULAR HEMOGLOBIN 26.8 PG (27.0-31.0); MEAN CORPUSCULAR HGB CONC 31.7 G/DL (32.0-36.0); MEAN CORPUSCULAR VOLUME 84 FL (80-99); MEAN PLATELET VOLUME 7.1 FL (6.5-10.1); MONOCYTES % (AUTO) 6.9 % (1.0-10.0); NEUTROPHILS % (AUTO) 71.7 % (45.0-75.0); PLATELET COUNT 225 K/UL (150-450); RED BLOOD COUNT 3.94 M/UL (4.20-5.40); WHITE BLOOD COUNT 6.6 K/UL (4.8-10.8)
[2016-10-29 20:19] LABS: BAND NEUTROPHILS % (MANUAL) 2 % (0-8); EOSINOPHILS % (MANUAL) 2 % (0-3); LYMPHOCYTES % (MANUAL) 29 % (20-45); NEUTROPHILS % (MANUAL) 59 % (45-75); TOTAL CELLS COUNTED 100
[2016-10-29 20:20] LABS: ANISOCYTOSIS 1+; BASOPHILS % (MANUAL) 0 % (0-2); HYPOCHROMASIA 1+; PLATELET ESTIMATE ADEQUATE; PLATELET MORPHOLOGY NORMAL
[2016-10-29 20:30] VITALS: BP 140/80
[2016-10-29 20:39] LABS: PATH BLOOD SMEAR/OMC SENT TO PATHOLOGIST
[2016-10-29 21:01] LABS: RETICULOCYTE COUNT 0.8 % (0.0-2.0)
[2016-10-30] VITALS: BP 108/67
[2016-10-30 04:00] VITALS: BP 121/70
[2016-10-30] MEDS: metFORMIN 500mg tab ORAL SCH ×2 (06:52→11:56)
[2016-10-30] MEDS: NovoLOG Insulin Flexpen SUBQ SCH ×2 (06:53→11:56)
[2016-10-30 07:06] LABS: BASOPHILS % (AUTO) 0.6 % (0.0-2.0); EOSINOPHILS % (AUTO) 1.4 % (0.0-3.0); LYMPHOCYTES % (AUTO) 25.2 % (20.0-45.0); MEAN CORPUSCULAR HGB CONC 31.3 G/DL (32.0-36.0); MEAN CORPUSCULAR VOLUME 86 FL (80-99); MEAN PLATELET VOLUME 6.9 FL (6.5-10.1); MONOCYTES % (AUTO) 6.3 % (1.0-10.0); NEUTROPHILS % (AUTO) 66.5 % (45.0-75.0); PLATELET COUNT 236 K/UL (150-450); RED CELL DISTRIBUTION WIDTH 13.1 % (11.6-14.8); WHITE BLOOD COUNT 6.4 K/UL (4.8-10.8)
--- NOTE | 2016-10-30 07:20 | General Progress Note ---
Assessment/Plan Problem List: (1) Hypoglycemia ICD Codes: E16.2 - Hypoglycemia, unspecified SNOMED: 946294369 (2) Diabetes mellitus ICD Codes: E11.9 - Type 2 diabetes mellitus without complications SNOMED: 61533115 (3) Dementia ICD Codes: F03.90 - Unspecified dementia without behavioral disturbance SNOMED: 04426562 Assessment/Plan glucose values are stable without hypoglycemia continue Metformin 500 mg tid + SSI no need for basal insulin Subjective ROS Limited/Unobtainable: Yes Allergies: Coded Allergies: No Known Allergies (Verified , 12/31/09) Subjective events noted - interval notes reviewed glucose values are stable without hypoglycemia Objective Last 24 Hour Vital Signs Date Time Temp Pulse Resp B/P Pulse Ox O2 Delivery O2 Flow Rate FiO2 10/30/16 04:00 97.3 63 18 121/70 100 Room Air 10/30/16 00:00 97.5 64 18 108/67 97 Room Air 10/29/16 20:30 98.1 70 19 140/80 98 Room Air 10/29/16 19:25 71 20 Room Air 21 10/29/16 16:22 97.9 71 17 144/85 97 Room Air 10/29/16 12:07 97.5 66 20 132/74 99 Room Air 10/29/16 08:45 97.5 71 21 145/94 99 Room Air 10/29/16 08:45 145/94 10/29/16 08:25 65 20 Room Air 21 Intake and Output 10/29/16 10/30/16 19:00 07:00 Intake Total 775 ml 240 ml Balance 775 ml 240 ml Intake Oral 720 ml 240 ml IV Total 55 ml # Voids 3 3 # Bowel Movements 2 3 Laboratory Tests 10/29/16 16:05: White Blood Count 6.6, Red Blood Count 3.94L, Hemoglobin 10.6L, Hematocrit 33.3L , Mean Corpuscular Volume 84, Mean Corpuscular Hemoglobin 26.8L, Mean Corpuscular Hemoglobin Concent 31.7L, Red Cell Distribution Width 13.0, Platelet Count 225, Mean Platelet Volume 7.1, Neutrophils (%) (Auto) 71.7, Lymphocytes (%) (Auto) 19.6L, Monocytes (%) (Auto) 6.9, Eosinophils (%) (Auto) 1.4, Basophils (%) (Auto) 0.4, Differential Total Cells Counted 100, Neutrophils % (Manual) 59, Lymphocytes % (Manual) 29, Monocytes % (Manual) 8, Eosinophils % (Manual) 2, Basophils % (Manual) 0, Band Neutrophils 2, Platelet Estimate Adequate, Platelet Morphology Normal, Hypochromasia 1+, Anisocytosis 1+ , Erythrocyte Sedimentation Rate 47H, Reticulocyte Count 0.8, Prothrombin Time 10.3, Prothromb Time International Ratio 1.0, Activated Partial Thromboplast Time 28, Iron Level 33L, Total Iron Binding Capacity 317, Percent Iron Saturation 10L, Unsaturated Iron Binding 284, Lactate Dehydrogenase 219, Carcinoembryonic Antigen 4.9H, Vitamin B12 Level 222, Folate [Pending] 10/29/16 20:30: Stool Occult Blood [Pending] 10/30/16 06:35: White Blood Count 6.4, Red Blood Count 4.00L, Hemoglobin 10.8L, Hematocrit 34.5L , Mean Corpuscular Volume 86, Mean Corpuscular Hemoglobin 27.0, Mean Corpuscular Hemoglobin Concent 31.3L, Red Cell Distribution Width 13.1, Platelet Count 236, Mean Platelet Volume 6.9, Neutrophils (%) (Auto) 66.5, Lymphocytes (%) (Auto) 25.2, Monocytes (%) (Auto) 6.3, Eosinophils (%) (Auto) 1.4, Basophils (%) (Auto) 0.6 Height (Feet): 5 Height (Inches): 1.00 Weight (Pounds): 130 General Appearance: no apparent distress Neck: normal alignment Cardiovascular: regular rhythm Respiratory/Chest: decreased breath sounds Abdomen: normal bowel sounds Edema: 1+ Arm (L), 1+ Arm (R), 1+ Leg (L), 1+ Leg (R), 1+ Pedal (L), 1+ Pedal ( R), 1+ Generalized Objective Current Medications Medications (Trade) Dose Ordered Sig/Aaron Route PRN Reason Start Time Stop Time Status Last Admin Dose Admin Acetaminophen (Tylenol) 650 mg Q4H PRN ORAL fever 10/27/16 07:15 11/26/16 07:14 Al Hydroxide/Mg Hydroxide (Mylanta II) 30 ml Q6H PRN ORAL dyspepsia 10/27/16 07:15 11/26/16 07:14 Albuterol/ Ipratropium (DuoNeb 0.5-3(2.5)mg/3ml) 3 ml Q4H PRN HHN Shortness of Breath 10/27/16 07:15 11/01/16 07:14 Atorvastatin Calcium (Lipitor) 10 mg BEDTIME ORAL 10/27/16 21:00 11/26/16 20:59 10/29/16 20:31 Dextrose (Dextrose 50%) STAT PRN IV Hypoglycemia 10/27/16 07:15 11/26/16 07:14 Heparin Sodium (Porcine) (Heparin 5000 units/ml) 5,000 units EVERY 12 HOURS SUBQ 10/27/16 09:00 11/26/16 08:59 10/29/16 20:33 Insulin Aspart (NovoLOG) BEFORE MEALS AND HS SUBQ 10/27/16 11:30 11/26/16 11:29 10/30/16 06:53 Lisinopril (Zestril) 2.5 mg DAILY ORAL 10/27/16 09:00 11/26/16 08:59 10/29/16 08:45 Lorazepam (Ativan 2mg/ml 1ml) 2 mg Q4H PRN IV For Anxiety 10/27/16 21:00 11/03/16 20:59 10/28/16 22:07 Metformin HCl (Glucophage) 500 mg TIAC ORAL 10/28/16 11:30 11/27/16 11:29 10/30/16 06:52 Nitroglycerin (Ntg) 0.4 mg Q5MIN X 3 DOSES PRN SL Prn Chest Pain 10/27/16 07:15 11/26/16 07:14 Ondansetron HCl (Zofran) 4 mg Q6H PRN IVP Nausea & Vomiting 10/27/16 07:15 11/26/16 07:14 Polyethylene Glycol (Miralax) 17 gm DAILYPRN PRN ORAL Constipation 10/27/16 07:15 11/26/16 07:14 Temazepam (Restoril) 15 mg HSPRN PRN ORAL Insomnia 10/27/16 07:15 11/03/16 07:14 Item Value Date Time Bedside Blood Glucose 163 mg/dl H 10/30/16 0653 Bedside Blood Glucose 157 mg/dl H 10/29/162031 Bedside Blood Glucose 181 mg/dl H 10/29/16 1718 Bedside Blood Glucose 185 mg/dl H 10/29/16 1217 Bedside Blood Glucose 169 mg/dl H 10/29/16 0633 JOCELINE BARRON Oct 30, 2016 07:20
[2016-10-30 07:37] VITALS: BP 125/48
[2016-10-30] MEDS: Lisinopril 2.5mg tab ORAL SCH (08:29)
[2016-10-30] MEDS: Heparin 5000 units/ml inj SUBQ SCH (08:39)
[2016-10-30 11:25] VITALS: BP 139/70
--- NOTE | 2016-10-31 14:44 | Discharge Summary ---
Discharge Summary Hospital Course Date of Admission Oct 27, 2016 at 03:35 Date of Discharge Oct 30, 2016 at 12:10 Admitting Diagnosis hypoglycemia HPI Venessa Ugalde is a 76 year old female who was admitted on Oct 27, 2016 at 03: 35 for Hypoglycemia Hospital Course [id number] Discharge Discharge Disposition Patient was discharged to SNF/Subacute Facility(03) Discharge Diagnoses: Debbie Blas NP Oct 31, 2016 14:44
--- NOTE | 2016-11-01 01:58 | Discharge Summary 2 SIG ---
DATE OF ADMISSION: 10/27/2016 DATE OF DISCHARGE: 10/30/2016 CONSULTANTS: 1. Tayo Vaughn M.D. 2. Marcos Valero M.D. BRIEF HOSPITAL COURSE: The patient is a 76-year-old female, with history of diabetes, dementia, bed-ridden, recent femur fracture, and intermediate resident, was taken to ED due to hypoglycemia at convalescent home. Accu-Chek was in the 30s and the patient was given glucagon in the field with improvement of blood sugar. She had blood sugar greater than 400 the night prior and was given insulin by the nursing staff. Upon arrival to ED, the patient was lethargic, but arousable. She was also found to have leukocytosis and urinary tract infection. She was admitted for IV hydration and was started on IV cefepime. Dr. Vaughn was consulted for antibiotic management. Dr. Valero was consulted for diabetes management and hypoglycemia. Metformin was resumed and the patient was continued on NovoLog sliding scale. Basal insulin was placed on hold. Glucose values are stable without hypoglycemia. She was recommended to continue metformin 500 mg t.i.d. No need for basal insulin. She was recommended to continue metformin 500 mg t.i.d. with sliding scale. No need for basal insulin. She received three doses of cefepime and was monitored off antibiotics. The patient was eventually discharged home. FINAL DIAGNOSES: 1. Acute toxic metabolic encephalopathy. 2. Diabetes mellitus. 3. Episode of hypoglycemia. 4. Dementia. 5. Urinary tract infection. 6. Recent hip fracture, bedridden with functional quadriplegia. Kristy Michaels M.D. I have been assigned to dictate discharge summary on this account and I was not involved in the patient's management. Debbie Blas N.P. DR: SAVANA JOB#: [id number] CC: JUAN MANUEL
== END 2016-10-30 12:10 | DRG 420 ==
LOC: EDBD 03:04 → EMR 03:29 → 4E 03:35 → EDBEDREQ 06:03 → 4E 18:44
DX: E11.649 Type 2 diabetes mellitus with hypoglycemia without coma (principal); N39.0 Urinary tract infection, site not specified; F03.90 Unspecified dementia, unspecified severity, without behavioral disturbance, psychotic disturbance, mood disturbance, and anxiety; S72.009D Fracture of unspecified part of neck of unspecified femur, subsequent encounter for closed fracture with routine healing; I10 Essential (primary) hypertension; E78.5 Hyperlipidemia, unspecified; Z79.4 Long term (current) use of insulin
CPT/HCPCS: 36415; 71010; 80053; 80069; 81003; 82270; 82378; 82550; 82553; 82607; 82746; 82962; 83540; 83550; 83615; 84484; 85007; 85025; 85044; 85060; 85610; 85651; 85730; 87081; 93005; 94664; J1815

== ENCOUNTER 2016-12-20 12:09 | Inpatient (IN) | payer MEDICARE, MEDICAID ==
[~2016-12-20] VITALS: Ht 152.4 cm; Wt 49.9 kg
[~2016-12-20 12:09] MED LIST changes: +NOVOLOG100 UNITS1 SUBQ
[2016-12-20] MEDS ORDERED: VITAMIN C250 MG ORAL (12:28)
[2016-12-20] MEDS ORDERED: PRO-STAT LIQUID30 ML ORAL (12:28)
[2016-12-20] MEDS ORDERED: MAXZIDE 37.5 M1 EAC1 PO (12:28)
[2016-12-20] MEDS ORDERED: LANTUS SOL100 UNIT/1 SUBQ (12:45)
[2016-12-20] MEDS ORDERED: HUMULIN R100 UNIT/1 SUBQ (12:45)
[2016-12-20 13:07] LABS: BASOPHILS % (AUTO) 0.5 % (0.0-2.0); EOSINOPHILS % (AUTO) 0.1 % (0.0-3.0); LYMPHOCYTES % (AUTO) 16.1 % (20.0-45.0); MEAN CORPUSCULAR HEMOGLOBIN 25.5 PG (27.0-31.0); MEAN CORPUSCULAR HGB CONC 30.3 G/DL (32.0-36.0); MEAN CORPUSCULAR VOLUME 84 FL (80-99); MEAN PLATELET VOLUME 6.1 FL (6.5-10.1); MONOCYTES % (AUTO) 6.1 % (1.0-10.0); NEUTROPHILS % (AUTO) 77.2 % (45.0-75.0); PLATELET COUNT 382 K/UL (150-450); RED CELL DISTRIBUTION WIDTH 13.3 % (11.6-14.8); WHITE BLOOD COUNT 11.2 K/UL (4.8-10.8)
[2016-12-20] MEDS ORDERED: Azithromycin 500 MG in D5W 275 ML IVPB STA (13:13)
--- NOTE | 2016-12-20 13:13 | Emergency Room Report ---
History of Present Illness General Chief Complaint: Generalized Weakness Source: Patient, Family Member, Medical Record Present Illness HPI [id number] BIBEMS from SNF with "weakness". Patient is aphasic, bedbound. Not contributing any additional HPI at this time. In response to any questions, she looks at me and smiles. Not in any acute distress. Patient did not come with any paperwork from SNF that specified additional information on "weakness. " PMHx DM, known difficult ambulation, nondisplaced fx right greater trochanter, HTN, HLD. Allergies: Coded Allergies: No Known Allergies (Verified , 12/31/09) Patient History Past Medical History: other - see HPI Past Surgical History: none Pertinent Family History: none Social History: Denies: alcohol use, drug use, smoking Now: No Immunizations: UTD Reviewed Nursing Documentation: PMH: Agreed, PSxH: Agreed Nursing Documentation-PMH Past Medical History: No History, Except For Hx Hypertension: Yes - Right femur fx Hx Pacemaker: No Hx Asthma: No Hx COPD: No Hx Diabetes: Yes Hx Cancer: No Hx Gastrointestinal Problems: No Hx Dialysis: No Hx Neurological Problems: Yes - Muscle weakness, difficulty in walking Hx Cerebrovascular Accident: No Hx Seizures: No Hx Cerebral Palsy: Yes Review of Systems All Other Systems: negative except mentioned in HPI Physical Exam Vital Signs Date Time Temp Pulse Resp B/P Pulse Ox O2 Delivery O2 Flow Rate FiO2 12/20/16 12:01 98.1 65 18 109/57 97 Nasal Cannula 2.0 Sp02 EP Interpretation: reviewed, normal General Appearance: normal inspection, well appearing, no apparent distress, alert, GCS 15, non-toxic, other - Well appearing, elderly female, alert and sitting comfortably in stretcher Head: normocephalic, atraumatic Eyes: bilateral eye EOMI, bilateral eye PERRL ENT: normal ENT inspection, hearing grossly normal, normal voice Neck: normal inspection, full range of motion, supple, no bony tend Respiratory: normal inspection, lungs clear, normal breath sounds, no respiratory distress, no retraction, no wheezing Cardiovascular #1: regular rate, rhythm, no edema Gastrointestinal: normal inspection, normal bowel sounds, non tender, soft, no guarding, no hernia Genitourinary: no CVA tenderness Musculoskeletal: normal inspection, back normal, normal range of motion, no calf tenderness, pelvis stable, Gen's Sign negative, other - Right lower extremity shortened, externally rotated. No ttp to right hip, pelvis Neurologic: normal inspection, alert, oriented x3, responsive, production assembler III-XII nml as tested, motor strength/tone normal, speech normal Psychiatric: normal inspection, judgement/insight normal, mood/affect normal Skin: normal inspection, normal color, no rash Lymphatic: normal inspection Medical Decision Making Medicare Attestation I Raf Mesa MD hereby attest that the medical record entry for date of service, 08/11/16 accurately reflects signatures/notations that I made in my capacity as MD when I treated/diagnosed the above listed Medicare beneficiary. I attest that this information is true, accurate and complete to the best of my knowledge. I understand that any falsification, omission, or concealment of material fact may subject me to administrative, civil, or criminal liability. This patient warrants hospital admission for extreme of age and has a condition that cannot be treated as outpatient. Diagnostic Impression: Primary Impression: Episode of generalized weakness Additional Impressions: Hyperkalemia EDGAR (acute kidney injury) ER Course Leuks 11k. Troponin 0. CXR: No obvious PNA. UA: Patient has not provided UA. Has had UTIs in the past. Weakness - Multifactorial causes - Known right femur fx. Now bedridden. - Infection? Afebrile with stable vitals, but slight leukocytosis. No obvious PNA on CXR. Frequent UTI in past. Will tx for infection with empiric Abx. Blood Cx sent. Pending result - [facility] cancelled or been unable to complete processing of CMP at 1230pm and 2:30pm despite efficient blood draws by ED RN. Unknown if patient has additional metabolic abnormalities contributing to weakness at time of endorsement to Dr iMchaels at 1:11pm for med/surg admission. On review of EMR , no history of CKD or electrolyte abnormality previously. Unlikely hyperK looking at ECG which today shows previously seen junctional rhythm. Before patient was transferred to floor, a THIRD sample for CMP was sent to lab for processing at 3:50pm. Result was Na 128, K 9.1 and serumCr 1.7. I had already finished my shift, but Dr Ornelas in the ED was informed and subsequently informed Dr Michaels. Patient was transferred to a telemetry bed and treatment for HyperK was initiated. Etiology of hyperK and EDGAR unknown at this time but possibly also contributing to patient's multifactorial causes of weakness. EKG Diagnostic Results Rate: other - junctional rhythm (similar to 10/24/16 ECG) ST Segments: no acute changes ASA given to the pt in ED: No Rhythm Strip Diag. Results EP Interpretation: yes Rate: 65 Rhythm: NSR, no PVC's, no ectopy Chest X-Ray Diagnostic Results EP Interpretation: Yes Findings: no effusion, no pneumothorax Number of Views: 1 Last Vital Signs Date Time Temp Pulse Resp B/P Pulse Ox O2 Delivery O2 Flow Rate FiO2 12/20/16 12:01 98.1 65 18 109/57 97 Nasal Cannula 2.0 Status: improved Disposition: ADMITTED INPATIENT Condition: Serious RAF MESA M.D. Dec 20, 2016 13:13
[2016-12-20] MEDS ORDERED: cefTRIAXone 1 GM in NS 55 ML IVPB ONE (13:15)
[2016-12-20 13:34] LABS: TROPONIN I < 0.30 ng/mL (<=0.30)
[2016-12-20] MEDS ORDERED: cefTRIAXone 1 GM in NS 110 ML IVPB ONE (14:00)
[2016-12-20] MEDS ORDERED: Azithromycin Inj IV ONE (14:09)
[2016-12-20 15:02] VITALS: BP 109/57
--- NOTE | 2016-12-20 15:20 | History and Physical ---
History of Present Illness General Date patient seen: Dec 20, 2016 Time patient seen: 14:00 Reason for Hospitalization: Generalized Weakness Present Illness HPI 76Yy/o female was brought for episode of generalized weakness PMH: DM, nondisplaced fx right greater trochanter, HTN, HLD, dementia patient unable to provide any history workup in ER revealed mild leukocytosis CXR negative UA pending BMP with evidence of acute renal failure BUN/creat- 62/1.7, hyperkalemia -9.1 and hyponatremia-128 troponin negative ECG with shortened CA interval Allergies: Coded Allergies: No Known Allergies (Verified , 12/31/09) Medication History Scheduled Amino Acids/Protein Hydrolys (Pro-Stat Liquid), 30 ML ORAL TWICE A DAY, ( Reported) Amino Acids/Protein Hydrolys (Pro-Stat Liquid), 30 ML ORAL TWICE A DAY, ( Reported) Ascorbic Acid* (Vitamin C*), 250 MG ORAL DAILY, (Reported) Ascorbic Acid* (Vitamin C*), 250 MG ORAL DAILY, (Reported) Atorvastatin Calcium* (Atorvastatin Calcium*), 10 MG ORAL BEDTIME, (Reported) Docusate Sodium* (Docusate Sodium*), 100 MG ORAL BID, (Reported) Furosemide* (Lasix*), 20 MG ORAL DAILY, (Reported) Insulin Aspart (Novolog Flexpen), 0 UNITS SUBQ BEFORE MEALS AND HS Insulin Glargine (Lantus), 5 SUBQ AC, (Reported) Insulin Glargine (Lantus), 20 UNITS SUBQ BID, (Reported) Lisinopril* (Lisinopril*), 2.5 MG ORAL DAILY, (Reported) Magnesium Hydroxide* (Milk Of Magnesia*), 30 ML ORAL DAILY, (Reported) Metformin Hcl* (Metformin Hcl*), 500 MG ORAL TWICE A DAY, (Reported) Multivitamin With Minerals (Multivitamins With Minerals*), 1 TAB ORAL DAILY, ( Reported) Triamterene/Hydrochlorothiazid (Maxzide 37.5 Mg-25 Mg Tablet), 1 EACH PO DAILY, (Reported) Scheduled PRN Acetaminophen* (Acetaminophen*), 325 MG ORAL Q6H PRN for Mild Pain/Temp > 100.5, (Reported) Hydrocodone Bit/Acetaminophen 5-325* ([place] 5-325*), 1 TAB ORAL Q4H PRN for For Pain, (Reported) Miscellaneous Medications Insulin Regular, Human (Humulin R), 0 SUBQ, (Reported) Patient History Healthcare decision maker Resuscitation status Advanced Directive on File Past Medical/Surgical History Past Medical/Surgical History: (1) UTI (urinary tract infection) (2) Hip fracture (3) Diabetes mellitus (4) Dementia (5) Diabetes (6) HTN (hypertension) Review of Systems ROS Narrative unable to obtain due to ALOC Physical Exam General Appearance: no apparent distress, alert, confused Lines, tubes and drains: peripheral HEENT: normocephalic, atraumatic, anicteric Neck: supple Respiratory/Chest: lungs clear - moderate air entry , no respiratory distress, no accessory muscle use Cardiovascular/Chest: normal rate, regular rhythm Abdomen: normal bowel sounds, non tender, soft Extremities: no calf tenderness, no edema, other - RLE shorter, external rotation Neurologic: abnormal gait, alert - confused Musculoskeletal: atrophy - BLE Last 24 Hour Vital Signs Date Time Temp Pulse Resp B/P Pulse Ox O2 Delivery O2 Flow Rate FiO2 12/20/16 15:02 98.1 18 109/57 97 Nasal Cannula 2.0 12/20/16 12:01 98.1 65 18 109/57 97 Nasal Cannula 2.0 Laboratory Tests Test 12/20/16 12:35 12/20/16 14:30 White Blood Count 11.2 K/UL (4.8-10.8) H Red Blood Count 5.10 M/UL (4.20-5.40) Hemoglobin 13.0 G/DL (12.0-16.0) Hematocrit 43.0 % (37.0-47.0) Mean Corpuscular Volume 84 FL (80-99) Mean Corpuscular Hemoglobin 25.5 PG (27.0-31.0) L Mean Corpuscular Hemoglobin Concent 30.3 G/DL (32.0-36.0) L Red Cell Distribution Width 13.3 % (11.6-14.8) Platelet Count 382 K/UL (150-450) Mean Platelet Volume 6.1 FL (6.5-10.1) L Neutrophils (%) (Auto) 77.2 % (45.0-75.0) H Lymphocytes (%) (Auto) 16.1 % (20.0-45.0) L Monocytes (%) (Auto) 6.1 % (1.0-10.0) Eosinophils (%) (Auto) 0.1 % (0.0-3.0) Basophils (%) (Auto) 0.5 % (0.0-2.0) Troponin I < 0.30 ng/mL (<=0.30) Sodium Level Pending Potassium Level Pending Chloride Level Pending Carbon Dioxide Level Pending Blood Urea Nitrogen Pending Creatinine Pending Estimat Glomerular Filtration Rate Pending Glucose Level Pending Calcium Level Pending Total Bilirubin Pending Aspartate Amino Transf (AST/SGOT) Pending Alanine Aminotransferase (ALT/SGPT) Pending Alkaline Phosphatase Pending Total Creatine Kinase Pending Creatine Kinase MB Pending Total Protein Pending Albumin Pending Globulin Pending Height (Feet): 5 Weight (Pounds): 110 Assessment/Plan Assessment/Plan ASSESSMENT episode of generalized weakness acute toxic metabolic encephalopathy acute renal failrue acute severe hyperkalemia hyponatremia leukocytosis possible UTI with hx of recent UTI Hx of R femur fracture cerebral palsy DM HTN functional quadriplegia PLAN OF CARE SHAY start IVF with bicarbonate treat hyperkalemia with Kayexalate, Ca gluconate, 1L NS bolus, D50 and 10 u insulin IV, repeat K at 2100 and treat further nephro eval empiric abx check UA BS management with SS of insulin, check HgA1c DVT GI prophylaxis PT/OT bowel regimen case discussed and evaluated by supervising physician Gelacio Aguirre)Chica NP Dec 20, 2016 15:20
[2016-12-20] MEDS ORDERED: DuoNeb 0.5-3(2.5)mg/3ml neb HHN PRN ×2 (15:30→19:00)
[2016-12-20] MEDS ORDERED: Acetaminophen 650mg/20.3ml ORAL PRN ×2 (15:30→19:00)
[2016-12-20] MEDS ORDERED: Milk of Magnesia 30ml Ud ORAL PRN ×2 (16:00→19:00)
[2016-12-20 16:31] VITALS: BP 121/73
[2016-12-20 16:36] LABS: ALANINE AMINOTRANSFERASE 16 U/L (3-33); ANION GAP 19 (5-15); ASPARTATE AMINO TRANSFERASE 14 U/L (5-40); CALCIUM 9.6 mg/dL (8.6-10.2); CARBON DIOXIDE 12 mEQ/L (20-30); CHLORIDE 97 mEQ/L (98-107); CREATININE 1.7 mg/dL (0.5-0.9); HEMOLYSIS 25; SODIUM 128 mEQ/L (135-145); TOTAL PROTEIN 8.4 g/dL (6.6-8.7)
[2016-12-20 16:42] LABS: POTASSIUM 9.1 mEQ/L (3.4-4.9)
[2016-12-20 16:46] LABS: CKMB < 1.5 ng/mL (< 3.8)
[2016-12-20] MEDS ORDERED: NovoLOG Insulin Flexpen SUBQ SCH (17:00)
[2016-12-20] MEDS ORDERED: Sodium Polystyrene Sulfonate 15gm Powder ORAL ONE ×2 (17:30→22:15)
[2016-12-20 18:30] VITALS: BP 120/56
[2016-12-20 20:25] VITALS: BP 112/64
[2016-12-20] MEDS ORDERED: Heparin 5000 units/ml inj SUBQ SCH (21:00)
[2016-12-20] MEDS: Heparin 5000 units/ml inj SUBQ SCH (22:20)
[2016-12-20] MEDS: NovoLOG Insulin Flexpen SUBQ SCH (22:22)
[2016-12-21] VITALS: BP 101/57
[2016-12-21] MEDS ORDERED: Calcium Gluconate 1gm/10ml vial IVP ONE
[2016-12-21 04:00] VITALS: BP 132/65
[2016-12-21 04:31] LABS: BASOPHILS % (AUTO) 0.6 % (0.0-2.0); EOSINOPHILS % (AUTO) 0.4 % (0.0-3.0); LYMPHOCYTES % (AUTO) 16.9 % (20.0-45.0); MEAN CORPUSCULAR HEMOGLOBIN 26.2 PG (27.0-31.0); MEAN CORPUSCULAR HGB CONC 31.5 G/DL (32.0-36.0); MEAN CORPUSCULAR VOLUME 83 FL (80-99); MEAN PLATELET VOLUME 5.6 FL (6.5-10.1); MONOCYTES % (AUTO) 8.7 % (1.0-10.0); NEUTROPHILS % (AUTO) 73.3 % (45.0-75.0); PLATELET COUNT 313 K/UL (150-450); RED BLOOD COUNT 4.26 M/UL (4.20-5.40); RED CELL DISTRIBUTION WIDTH 13.5 % (11.6-14.8)
[2016-12-21 04:51] LABS: ANION GAP 19 (5-15); CALCIUM 8.9 mg/dL (8.6-10.2); CARBON DIOXIDE 14 mEQ/L (20-30); CHLORIDE 105 mEQ/L (98-107); CREATININE 1.3 mg/dL (0.5-0.9); HEMOLYSIS 1; POTASSIUM 5.2 mEQ/L (3.4-4.9); SODIUM 138 mEQ/L (135-145)
[2016-12-21] MEDS: NovoLOG Insulin Flexpen SUBQ SCH ×4 (06:04→21:21)
[2016-12-21 08:00] VITALS: BP 98/60
[2016-12-21] MEDS: Heparin 5000 units/ml inj SUBQ SCH ×2 (08:36→21:20)
--- NOTE | 2016-12-21 09:50 | Diagnostic Imaging Report ---
Indication: PAIN Technique: XRAY CHEST 1 V Comparison:10/27/2016 Findings: Poor inspiration. The heart is probably normal in size. There is bilateral chronic interstitial disease. Aorta is calcified. No airspace disease. No pleural fluid. Bones are osteopenic. Impression: Osteopenia. Chronic interstitial disease. Atherosclerotic change. No acute abnormality.
[2016-12-21] MEDS ORDERED: NS 275ml ONE (10:52)
--- NOTE | 2016-12-21 11:36 | General Progress Note ---
Progress Note Progress Note [id number] full note dictated JANINE LINDSEY Dec 21, 2016 11:36
[2016-12-21 12:00] VITALS: BP 107/65
[2016-12-21] MEDS ORDERED: Sodium Bicarbonate 100 ML in D5W 1000ml 1,000 ML IV SCH (13:30)
--- NOTE | 2016-12-21 13:36 | Pulmonology Progress Note ---
Assessment/Plan Assessment/Plan ASSESSMENT acute toxic metabolic encephalopathy on chronic dementia acute severe hyperkalemia acute renal failure anion gap acidosis hyponatremia leukocytosis possible UTI with hx of recent UTI Hx of R femur fracture cerebral palsy DM HTN functional quadriplegia PLAN OF CARE SHAY acute toxic metabolic encephalopathy likely 2 to acute renal failure , improving nephro eval appreciated IVF changed with 2 amp of bicarb as per nephro renal parameters improving, K down to 5.2 K at 2100 was 6.6 at that time repeated treatment with Ca gluconate, Kayexalate, 1 L NS and D50 with 10u of insulin empiric abx check UA BS management with SS of insulin, GlY2k-9.9 DVT, GI prophylaxis PT/OT bowel regimen case discussed and evaluated by supervising physician Subjective Allergies: Coded Allergies: No Known Allergies (Verified , 12/31/09) Subjective K-5.2 this am creat trending down SR on tele Objective Last 24 Hour Vital Signs Date Time Temp Pulse Resp B/P Pulse Ox O2 Delivery O2 Flow Rate FiO2 12/21/16 08:08 Nasal Cannula 2.0 28 12/21/16 08:08 90 18 Nasal Cannula 2.0 28 12/21/16 08:08 98 Nasal Cannula 2.0 28 12/21/16 08:00 97.2 73 18 98/60 100 Nasal Cannula 2.0 12/21/16 08:00 74 12/21/16 04:00 97.1 82 20 132/65 94 Nasal Cannula 2.0 12/21/16 03:35 86 12/21/16 00:00 97.0 78 20 101/57 100 Nasal Cannula 2.0 12/20/16 23:48 75 12/20/16 20:25 96.6 83 20 112/64 100 Room Air 12/20/16 19:43 82 12/20/16 18:54 92 18 Nasal Cannula 2.0 28 12/20/16 18:54 98 Nasal Cannula 2.0 28 12/20/16 18:54 Nasal Cannula 2.0 28 12/20/16 18:30 98.2 85 19 120/56 100 Nasal Cannula 12/20/16 18:25 86 12/20/16 16:31 97.8 68 18 121/73 96 Nasal Cannula 12/20/16 15:02 98.1 18 109/57 97 Nasal Cannula 2.0 Intake and Output 12/20/16 12/21/16 19:00 07:00 Intake Total 1400 ml Output Total 2 ml Balance 1398 ml Intake IV Total 1350 ml Other 50 ml Output Urine Total 2 ml # Bowel Movements 3 Objective General Appearance: no apparent distress, alert, confused Lines, tubes and drains: peripheral HEENT: normocephalic, atraumatic, anicteric Neck: supple Respiratory/Chest: lungs clear with moderate air entry , no respiratory distress, no accessory muscle use Cardiovascular/Chest: normal rate, regular rhythm Abdomen: normal bowel sounds, non tender, soft Extremities: no calf tenderness, no edema, Neurologic: abnormal gait, alert but confused Musculoskeletal: atrophy - BLE Laboratory Tests 12/20/16 15:40: Hemoglobin A1c 7.9H 12/20/16 15:50: Sodium Level 128L, Potassium Level 9.1*H, Chloride Level 97L, Carbon Dioxide Level 12L, Anion Gap 19H, Blood Urea Nitrogen 62H, Creatinine 1.7H, Estimat Glomerular Filtration Rate , Glucose Level 255H, Calcium Level 9.6, Total Bilirubin 0.4, Aspartate Amino Transf (AST/SGOT) 14, Alanine Aminotransferase ( ALT/SGPT) 16, Alkaline Phosphatase 111H, Total Creatine Kinase 41, Creatine Kinase MB < 1.5, Creatine Kinase MB Relative Index , Total Protein 8.4, Albumin 4.3, Globulin 4.1, Albumin/Globulin Ratio 1.0 12/20/16 20:20: Potassium Level 6.6*H 12/21/16 04:05: Sodium Level 138#, Potassium Level 5.2H, Chloride Level 105, Carbon Dioxide Level 14L, Anion Gap 19H, Blood Urea Nitrogen 48H, Creatinine 1.3H, Estimat Glomerular Filtration Rate , Glucose Level 54#L, Calcium Level 8.9, White Blood Count 9.0, Red Blood Count 4.26, Hemoglobin 11.1L, Hematocrit 35.4L, Mean Corpuscular Volume 83, Mean Corpuscular Hemoglobin 26.2L, Mean Corpuscular Hemoglobin Concent 31.5L, Red Cell Distribution Width 13.5, Platelet Count 313, Mean Platelet Volume 5.6L, Neutrophils (%) (Auto) 73.3, Lymphocytes (%) (Auto) 16.9L, Monocytes (%) (Auto) 8.7, Eosinophils (%) (Auto) 0.4, Basophils (%) (Auto ) 0.6 12/21/16 12:15: Lactic Acid Level 1.30 Current Medications Medications (Trade) Dose Ordered Sig/Aaron Route PRN Reason Start Time Stop Time Status Last Admin Dose Admin Acetaminophen (Tylenol) 650 mg Q6H PRN ORAL Mild Pain/Temp > 100.5 12/20/16 19:00 01/19/17 18:59 Albuterol/ Ipratropium (DuoNeb 0.5-3(2.5)mg/3ml) 3 ml Q6H PRN HHN sob 12/20/16 19:00 12/25/16 18:59 Atorvastatin Calcium (Lipitor) 10 mg BEDTIME ORAL 12/20/16 21:00 01/19/17 20:59 12/20/16 22:19 Dextrose (Dextrose 50%) STAT PRN IV Hypoglycemia 12/20/16 19:00 01/19/17 18:59 Heparin Sodium (Porcine) (Heparin 5000 units/ml) 5,000 units EVERY 12 HOURS SUBQ 12/20/16 21:00 01/19/17 20:59 12/21/16 08:36 Insulin Aspart (NovoLOG) BEFORE MEALS AND HS SUBQ 12/20/16 21:00 01/19/17 20:59 12/21/16 12:54 Levofloxacin (Levaquin) 50 ml @ 50 mls/hr Q24H IVPB 12/21/16 21:00 12/28/16 20:59 Magnesium Hydroxide 30 ml 30 ml DAILYPRN PRN ORAL Constipation 12/20/16 19:00 01/19/17 18:59 Sodium Bicarbonate/ Dextrose (Sodium Bicarbonate/D5W 1000ml) 1,100 ml @ 70 mls/hr [id number] IV 12/21/16 13:30 01/20/17 13:29 12/21/16 13:08 Gelacio BruceChica curry NP Dec 21, 2016 13:36
[2016-12-21 16:00] VITALS: BP 118/72
[2016-12-21] MEDS: Sodium Bicarbonate 100 ML in D5W 1000ml 1,000 ML IV SCH (17:00)
[2016-12-21] MEDS ORDERED: Milk of Magnesia 30ml Ud ORAL PRN (18:00)
[2016-12-21] MEDS ORDERED: Acetaminophen 650mg/20.3ml ORAL PRN (18:00)
[2016-12-21] MEDS ORDERED: DuoNeb 0.5-3(2.5)mg/3ml neb HHN PRN (18:00)
[2016-12-21] MEDS ORDERED: Levofloxacin 250mg/D5W 50ml IVPB SCH (18:00)
[2016-12-21 20:15] VITALS: BP 106/86
--- NOTE | 2016-12-21 22:39 | Consultation ---
DATE OF CONSULTATION: 12/21/2016 NEPHROLOGY CONSULTATION CONSULTING PHYSICIAN: Gwendolyn Moise M.D. REFERRING PHYSICIAN: Kristy Michaels M.D. REASON FOR CONSULTATION: Severe hyperkalemia. HISTORY OF PRESENT ILLNESS: The patient is a 76-year-old female with past medical history significant for history of diabetes, hypertension, history of generalized weakness and difficult walking, and history of hyperlipidemia, who was brought in to [facility] for evaluation of generalized weakness. In the ER, the patient found to have a potassium of 9 and creatinine was also elevated. The patient consequently was admitted in the hospital for complete evaluation. I was called for management of renal disease and electrolyte imbalance. PAST MEDICAL HISTORY: Includin. History of diabetes. 2. History of difficulty walking. 3. History of hyperlipidemia. 4. History of hypertension. 5. History of hypoglycemia. ALLERGIES: No known drug allergy. SOCIAL HISTORY: [facility] in a [facility]. There is no history of current tobacco, alcohol, or drug use. FAMILY HISTORY: Noncontributory. REVIEW OF SYSTEMS: At this point, the patient is more alert.General: She complained of generalized weakness. No fever or chills. Head and Neck: No dysphagia, odynophagia, blurry vision, headache, or neck stiffness. Pulmonary: Mild shortness of breath. No cough or sputum. Cardiovascular: No chest pain or palpitations. Gastrointestinal: There was no nausea or vomiting. The patient apparently was on mechanical soft diet at [facility]. Genitourinary: No dysuria. No frequency. No hematuria. MEDICATIONS: Medications at home are includin. Ascorbic acid 250 mg by mouth daily. 2. Colace 200 mg by mouth daily. 3. Lasix 20 mg by mouth daily. 4. Lisinopril 2.5 mg by mouth daily. 5. Magnesium 30 mg by mouth daily. 6. Metformin 500 mg by mouth daily. 7. Ambien one tablet by mouth daily. 8. Maxzide 37.5/25 mg by mouth daily. PHYSICAL EXAMINATION: VITAL SIGNS: The patient has temperature of 97 degrees, blood pressure of 101/57, pulse rate of 78, and respiratory rate of 20. HEAD AND NECK: No JVP. No LAD. Bitemporal wasting. Dry mucous membranes. Extraocular movements intact. Pupils are reactive to light and accommodation. LUNGS: Decreased breathing sounds on both sides. CARDIAC: Regular rate and rhythm. S1, S2. Positive systolic murmur. ABDOMEN: Soft and nontender. EXTREMITIES: No edema. No clubbing. No cyanosis. LABORATORY AND DIAGNOSTIC DATA: The patient had WBC count of 9, hemoglobin of 11.1, 35 hematocrit, and platelet count of 313, 000. On admission, the patient had a sodium of 128, potassium 9.1, 97 chloride, bicarbonate was 12, BUN 62, creatinine 1.7, glucose of 265, and calcium of 9.7. AST of 14, ALT of 16, and alkaline phosphorus of 111. Total CK-MB of less than 1.5. Total protein of 8.4. Albumin of 4.1. Potassium today is 5.2 and a bicarbonate is still at a level of 14. Blood sugar is around 54. There is no urine. Chest x-ray in the ER revealed osteopenia, chronic interstitial disease, no cardiomegaly. There is no ABG. ASSESSMENT: 1. Hyponatremia. 2. Severe hyperkalemia. 3. Acute renal failure. 4. Anion gap acidosis, which is mostly anion gap and non-gap. Delta gap is about 7. PLAN: Plan for the patient to obtain an ABG. Check intravenous fluids. Change intravenous fluids to D5 water plus two amps of bicarbonate to run at 75 mL/h. Obtain an ABG. Check the random urine protein creatinine ratio to calculate the proteinuria. Check the urine sodium and creatinine to calculate fractional excretion of sodium. Check the hemoglobin A1c recommended 6 to 7. Avoid any NSAIDs and nephrotoxics. I would discontinue the Maxzide most likely the cause of the hyponatremia. I would hold the lisinopril. We did not recommend the patient to get any diuretic at this standpoint. We would continue with the hydration. I would monitor renal function and electrolytes closely. Replace electrolytes as needed. Again, I would like to thank Dr. Michaels, for allowing me to participate in the care of this patient. Gwendolyn Moise M.D. DR: ROHITH JOB#: [id number] CC:
[2016-12-22 00:17] VITALS: BP 93/57
[2016-12-22 04:22] VITALS: BP 99/58
[2016-12-22] MEDS: Sodium Bicarbonate 100 ML in D5W 1000ml 1,000 ML IV SCH (05:33)
[2016-12-22] MEDS: NovoLOG Insulin Flexpen SUBQ SCH ×4 (05:37→21:07)
[2016-12-22 06:30] LABS: BASOPHILS % (AUTO) 0.9 % (0.0-2.0); EOSINOPHILS % (AUTO) 0.4 % (0.0-3.0); LYMPHOCYTES % (AUTO) 23.5 % (20.0-45.0); MEAN CORPUSCULAR HEMOGLOBIN 26.1 PG (27.0-31.0); MEAN CORPUSCULAR HGB CONC 31.5 G/DL (32.0-36.0); MEAN CORPUSCULAR VOLUME 83 FL (80-99); MEAN PLATELET VOLUME 5.1 FL (6.5-10.1); MONOCYTES % (AUTO) 8.4 % (1.0-10.0); NEUTROPHILS % (AUTO) 66.8 % (45.0-75.0); PLATELET COUNT 261 K/UL (150-450); RED BLOOD COUNT 4.09 M/UL (4.20-5.40); RED CELL DISTRIBUTION WIDTH 13.3 % (11.6-14.8); WHITE BLOOD COUNT 7.3 K/UL (4.8-10.8)
[2016-12-22 07:11] LABS: ALANINE AMINOTRANSFERASE 13 U/L (3-33); ALBUMIN/GLOBULIN RATIO 1.1 (1.0-2.7); ANION GAP 19 (5-15); ASPARTATE AMINO TRANSFERASE 14 U/L (5-40); CALCIUM 8.7 mg/dL (8.6-10.2); CARBON DIOXIDE 19 mEQ/L (20-30); CHLORIDE 98 mEQ/L (98-107); CREATININE 1.3 mg/dL (0.5-0.9); HEMOLYSIS 20; POTASSIUM 3.9 mEQ/L (3.4-4.9); SODIUM 136 mEQ/L (135-145); TOTAL PROTEIN 6.6 g/dL (6.6-8.7)
[2016-12-22 08:54] VITALS: BP 109/55
[2016-12-22] MEDS: Heparin 5000 units/ml inj SUBQ SCH ×2 (11:13→21:09)
--- NOTE | 2016-12-22 12:46 | Diagnostic Imaging Report ---
Indication: Acute renal failure, abnormal renal function tests Technique: Grayscale and duplex images of the kidneys, retroperitoneum, and bladder were obtained. Comparison:01/02/2010 Findings: Right kidney measures 9.8 cm in length. Left kidney measures 8.8 cm in length. Both kidneys demonstrate normal echogenicity. No hydronephrosis. The right kidney demonstrates a 10 mm upper pole cyst. The left kidney demonstrates small renal sinus calcifications. Findings evident previously. Normal inferior vena cava. Bladder is normal. Impression: Negative for hydronephrosis Questionable small left renal sinus, possibly calyceal, calculi. Small right renal cyst
[2016-12-22 12:59] VITALS: BP 123/55
[2016-12-22 16:40] VITALS: BP 122/82
--- NOTE | 2016-12-22 16:51 | Nephrology Progress Note ---
Assessment/Plan Assessment 1. Hyponatremia. 2. Severe hyperkalemia. 3. Acute renal failure. 4. Anion gap acidosis, which is mostly anion gap and non-gap. Plan plan to continue ivf replace electrolyte hold maureen and ARB Avoid NSAID Subjective ROS Limited/Unobtainable: Yes Constitutional: Reports: no symptoms HEENT: Reports: no symptoms Genitourinary: Reports: no symptoms Neurologic/Psychiatric: Reports: no symptoms Subjective was transferred to none monitor bed Objective Objective Last 24 Hour Vital Signs Date Time Temp Pulse Resp B/P Pulse Ox O2 Delivery O2 Flow Rate FiO2 12/22/16 12:59 97.0 79 20 123/55 97 Room Air 12/22/16 08:54 96.6 80 20 109/55 97 Room Air 12/22/16 04:22 97.5 72 18 99/58 100 Room Air 12/22/16 00:17 97.9 86 19 93/57 97 Room Air 12/21/16 20:15 97.2 84 18 106/86 97 Room Air 12/21/16 20:00 Nasal Cannula 2.0 28 12/21/16 19:57 98 Nasal Cannula 2.0 28 12/21/16 19:57 93 18 Nasal Cannula 2.0 28 Intake and Output 12/21/16 12/22/16 19:00 07:00 Intake Total 210 ml 890 ml Balance 210 ml 890 ml Intake IV Total 210 ml 890 ml # Voids 1 2 # Bowel Movements 1 1 Laboratory Tests 12/22/16 04:30: White Blood Count 7.3, Red Blood Count 4.09L, Hemoglobin 10.7L, Hematocrit 33.9L , Mean Corpuscular Volume 83, Mean Corpuscular Hemoglobin 26.1L, Mean Corpuscular Hemoglobin Concent 31.5L, Red Cell Distribution Width 13.3, Platelet Count 261, Mean Platelet Volume 5.1L, Neutrophils (%) (Auto) 66.8, Lymphocytes (%) (Auto) 23.5, Monocytes (%) (Auto) 8.4, Eosinophils (%) (Auto) 0.4, Basophils (%) (Auto) 0.9, Sodium Level 136, Potassium Level 3.9, Chloride Level 98, Carbon Dioxide Level 19L, Anion Gap 19H, Blood Urea Nitrogen 33H, Creatinine 1.3H, Estimat Glomerular Filtration Rate , Glucose Level 201#H, Calcium Level 8.7, Total Bilirubin 0.5, Aspartate Amino Transf (AST/SGOT) 14, Alanine Aminotransferase (ALT/SGPT) 13, Alkaline Phosphatase 88, Total Protein 6.6, Albumin 3.5, Globulin 3.1, Albumin/Globulin Ratio 1.1 12/22/16 14:00: Urine Eosinophils None seen, Urine Random Creatinine [Pending], Urine Random Microalbumin [Pending], Urine Creatinine 40.8, Urine Microalbumin/Creatinine Ratio [Pending] Height (Feet): 5 Height (Inches): 0.00 Weight (Pounds): 110 Objective HEAD AND NECK: No JVP. No LAD. Bitemporal wasting. Dry mucous membranes. Extraocular movements intact. Pupils are reactive to light and accommodation. LUNGS: Decreased breathing sounds on both sides. CARDIAC: Regular rate and rhythm. S1, S2. Positive systolic murmur. ABDOMEN: Soft and nontender. EXTREMITIES: No edema. No clubbing. No cyanosis. JANINE LINDSEY Dec 22, 2016 16:51
[2016-12-22 20:00] VITALS: BP 129/66
[2016-12-22] MEDS ORDERED: NovoLOG Insulin Flexpen SUBQ ONE (22:00)
--- NOTE | 2016-12-22 22:59 | Pulmonology Progress Note ---
Assessment/Plan Problems: (1) Hyperkalemia (2) EDGAR (acute kidney injury) (3) HTN (hypertension) (4) Diabetes (5) Dementia Assessment/Plan improving continue iv fluids pt/tp aspiration precaution Subjective ROS Limited/Unobtainable: No Allergies: Coded Allergies: No Known Allergies (Verified , 12/31/09) Objective Last 24 Hour Vital Signs Date Time Temp Pulse Resp B/P Pulse Ox O2 Delivery O2 Flow Rate FiO2 12/22/16 19:22 Nasal Cannula 2.0 28 12/22/16 19:22 96 Nasal Cannula 2.0 28 12/22/16 19:21 92 18 Nasal Cannula 2.0 28 12/22/16 16:40 97.0 79 20 122/82 95 Room Air 12/22/16 12:59 97.0 79 20 123/55 97 Room Air 12/22/16 08:54 96.6 80 20 109/55 97 Room Air 12/22/16 04:22 97.5 72 18 99/58 100 Room Air 12/22/16 00:17 97.9 86 19 93/57 97 Room Air Intake and Output 12/21/16 12/22/16 19:00 07:00 Intake Total 210 ml 890 ml Balance 210 ml 890 ml IV Total 210 ml 890 ml # Voids 1 2 # Bowel Movements 1 1 Objective General Appearance: WD/WN, no apparent distress Lines, tubes and drains: peripheral HEENT: normocephalic, atraumatic Neck: non-tender, supple Respiratory/Chest: chest wall non-tender, rhonchi - bilaterally Cardiovascular/Chest: normal peripheral pulses, normal rate Abdomen: normal bowel sounds Genitourinary/Rectal: normal genital exam Extremities: normal range of motion Microbiology Date/Time Source Procedure Growth Status 12/20/16 13:55 Blood Blood Culture - Preliminary NO GROWTH AFTER 24 HOURS Resulted 12/20/16 13:10 Nasal Nares MRSA Culture - Final NO METHICILLIN RESISTANT STAPH AUREUS... Complete 12/20/16 13:55 Rectum VRE Culture - Final Enterococcus Faecalis - Vre Complete Laboratory Tests 12/22/16 04:30: White Blood Count 7.3, Red Blood Count 4.09L, Hemoglobin 10.7L, Hematocrit 33.9L , Mean Corpuscular Volume 83, Mean Corpuscular Hemoglobin 26.1L, Mean Corpuscular Hemoglobin Concent 31.5L, Red Cell Distribution Width 13.3, Platelet Count 261, Mean Platelet Volume 5.1L, Neutrophils (%) (Auto) 66.8, Lymphocytes (%) (Auto) 23.5, Monocytes (%) (Auto) 8.4, Eosinophils (%) (Auto) 0.4, Basophils (%) (Auto) 0.9, Sodium Level 136, Potassium Level 3.9, Chloride Level 98, Carbon Dioxide Level 19L, Anion Gap 19H, Blood Urea Nitrogen 33H, Creatinine 1.3H, Estimat Glomerular Filtration Rate , Glucose Level 201#H, Calcium Level 8.7, Total Bilirubin 0.5, Aspartate Amino Transf (AST/SGOT) 14, Alanine Aminotransferase (ALT/SGPT) 13, Alkaline Phosphatase 88, Total Protein 6.6, Albumin 3.5, Globulin 3.1, Albumin/Globulin Ratio 1.1 12/22/16 14:00: Urine Eosinophils None seen, Urine Random Creatinine [Pending], Urine Random Microalbumin [Pending], Urine Creatinine 40.8, Urine Microalbumin/Creatinine Ratio [Pending] Current Medications Medications (Trade) Dose Ordered Sig/Aaron Route PRN Reason Start Time Stop Time Status Last Admin Dose Admin Acetaminophen (Tylenol) 650 mg Q6H PRN ORAL Mild Pain/Temp > 100.5 12/21/16 18:00 01/20/17 17:59 12/22/16 15:50 Albuterol/ Ipratropium (DuoNeb 0.5-3(2.5)mg/3ml) 3 ml Q6H PRN HHN sob 12/21/16 18:00 12/26/16 17:59 Atorvastatin Calcium (Lipitor) 10 mg BEDTIME ORAL 12/21/16 21:00 01/20/17 20:59 12/22/16 21:06 Dextrose (Dextrose 50%) STAT PRN IV Hypoglycemia 12/21/16 18:00 01/20/17 17:59 Heparin Sodium (Porcine) (Heparin 5000 units/ml) 5,000 units EVERY 12 HOURS SUBQ 12/21/16 21:00 01/20/17 20:59 12/22/16 21:09 Insulin Aspart (NovoLOG) BEFORE MEALS AND HS SUBQ 12/21/16 21:00 01/20/17 20:59 12/22/16 21:07 Levofloxacin (Levaquin) 250 mg QHS ORAL 12/22/16 21:00 12/27/16 20:59 12/22/16 21:06 Magnesium Hydroxide (Mom) 30 ml DAILYPRN PRN ORAL Constipation 12/21/16 18:00 01/20/17 17:59 Sodium Bicarbonate/ Dextrose (Sodium Bicarbonate/D5W 1000ml) 1,100 ml @ 70 mls/hr [id number] IV 12/21/16 17:00 01/20/17 16:59 12/22/16 05:33 YAQUELIN CORRAL Dec 22, 2016 22:59
[2016-12-23] VITALS: BP 124/55
[2016-12-23 04:00] VITALS: BP 135/60
[2016-12-23] MEDS: NovoLOG Insulin Flexpen SUBQ SCH ×4 (06:02→21:53)
[2016-12-23 06:56] LABS: BASOPHILS % (AUTO) 1.1 % (0.0-2.0); EOSINOPHILS % (AUTO) 0.8 % (0.0-3.0); LYMPHOCYTES % (AUTO) 23.7 % (20.0-45.0); MEAN CORPUSCULAR HEMOGLOBIN 25.9 PG (27.0-31.0); MEAN CORPUSCULAR HGB CONC 31.9 G/DL (32.0-36.0); MEAN CORPUSCULAR VOLUME 81 FL (80-99); MEAN PLATELET VOLUME 5.6 FL (6.5-10.1); MONOCYTES % (AUTO) 9.5 % (1.0-10.0); NEUTROPHILS % (AUTO) 64.9 % (45.0-75.0); PLATELET COUNT 274 K/UL (150-450); RED BLOOD COUNT 4.01 M/UL (4.20-5.40); RED CELL DISTRIBUTION WIDTH 13.2 % (11.6-14.8); WHITE BLOOD COUNT 6.5 K/UL (4.8-10.8)
[2016-12-23 07:07] LABS: ALANINE AMINOTRANSFERASE 13 U/L (3-33); ALBUMIN/GLOBULIN RATIO 1.1 (1.0-2.7); ANION GAP 14 (5-15); ASPARTATE AMINO TRANSFERASE 13 U/L (5-40); CALCIUM 8.7 mg/dL (8.6-10.2); CARBON DIOXIDE 29 mEQ/L (20-30); CHLORIDE 96 mEQ/L (98-107); CREATININE 1.2 mg/dL (0.5-0.9); HEMOLYSIS 2; MAGNESIUM 1.9 mg/dL (1.7-2.5); PHOSPHORUS 4.1 mg/dL (2.5-4.8); POTASSIUM 3.3 mEQ/L (3.4-4.9); SODIUM 139 mEQ/L (135-145); TOTAL PROTEIN 6.3 g/dL (6.6-8.7)
--- NOTE | 2016-12-23 07:47 | Nephrology Progress Note ---
Assessment/Plan Assessment 1. Hyponatremia. 2. hypokalemia 3. Acute renal failure. 4. Anion gap acidosis, which is mostly anion gap and non-gap. Plan plan to continue ivf replace electrolyte hold maureen and ARB Avoid NSAID Subjective Constitutional: Reports: no symptoms Genitourinary: Reports: no symptoms Neurologic/Psychiatric: Reports: no symptoms Subjective able to tolerate po without any problem today is more alert and awake Objective Objective Last 24 Hour Vital Signs Date Time Temp Pulse Resp B/P Pulse Ox O2 Delivery O2 Flow Rate FiO2 12/23/16 04:00 97.0 78 18 135/60 98 Room Air 12/23/16 00:00 96.8 89 18 124/55 Room Air 12/22/16 20:00 97.0 84 18 129/66 100 Room Air 12/22/16 19:22 Nasal Cannula 2.0 28 12/22/16 19:22 96 Nasal Cannula 2.0 28 12/22/16 19:21 92 18 Nasal Cannula 2.0 28 12/22/16 16:40 97.0 79 20 122/82 95 Room Air 12/22/16 12:59 97.0 79 20 123/55 97 Room Air 12/22/16 08:54 96.6 80 20 109/55 97 Room Air Intake and Output 12/22/16 12/23/16 19:00 07:00 Intake Total 1200 ml Balance 1200 ml Intake Oral 360 ml IV Total 840 ml # Voids 3 3 # Bowel Movements 1 Laboratory Tests 12/22/16 14:00: Urine Eosinophils None seen, Urine Random Creatinine [Pending], Urine Random Microalbumin [Pending], Urine Creatinine 40.8, Urine Microalbumin/Creatinine Ratio [Pending] 12/23/16 05:50: White Blood Count 6.5, Red Blood Count 4.01L, Hemoglobin 10.4L, Hematocrit 32.6L , Mean Corpuscular Volume 81, Mean Corpuscular Hemoglobin 25.9L, Mean Corpuscular Hemoglobin Concent 31.9L, Red Cell Distribution Width 13.2, Platelet Count 274, Mean Platelet Volume 5.6L, Neutrophils (%) (Auto) 64.9, Lymphocytes (%) (Auto) 23.7, Monocytes (%) (Auto) 9.5, Eosinophils (%) (Auto) 0.8, Basophils (%) (Auto) 1.1, Sodium Level 139, Potassium Level 3.3L, Chloride Level 96L, Carbon Dioxide Level 29, Anion Gap 14, Blood Urea Nitrogen 22, Creatinine 1.2H, Estimat Glomerular Filtration Rate , Glucose Level 117H, Calcium Level 8.7, Phosphorus Level 4.1, Magnesium Level 1.9, Total Bilirubin 0.4, Aspartate Amino Transf (AST/SGOT) 13, Alanine Aminotransferase (ALT/SGPT) 13, Alkaline Phosphatase 86, Total Protein 6.3L, Albumin 3.4L, Globulin 2.9, Albumin/Globulin Ratio 1.1 Height (Feet): 5 Height (Inches): 0.00 Weight (Pounds): 110 Objective HEAD AND NECK: No JVP. No LAD. Bitemporal wasting. Dry mucous membranes. Extraocular movements intact. Pupils are reactive to light and accommodation. LUNGS: Decreased breathing sounds on both sides. CARDIAC: Regular rate and rhythm. S1, S2. Positive systolic murmur. ABDOMEN: Soft and nontender. EXTREMITIES: No edema. No clubbing. No cyanosis. JANINE LINDSEY Dec 23, 2016 07:47
[2016-12-23 08:00] VITALS: BP 127/78
[2016-12-23] MEDS ORDERED: KCl 10% 40mEq/30ml liquid NG ONE (09:00)
[2016-12-23] MEDS: Heparin 5000 units/ml inj SUBQ SCH ×2 (10:38→21:53)
[2016-12-23 12:00] VITALS: BP 145/55
[2016-12-23 13:14] LABS: CREATININE RANDOM URINE 39.6 mg/dL (Not Estab.); MICROALBUMIN/CREATININE RATIO 83.1 mg/g creat (0.0-30.0)
[2016-12-23 16:00] VITALS: BP 126/74
--- NOTE | 2016-12-23 18:51 | Pulmonology Progress Note ---
Assessment/Plan Problems: (1) Hyperkalemia (2) EDGAR (acute kidney injury) (3) HTN (hypertension) (4) Diabetes (5) Dementia Assessment/Plan improving continue iv fluids pt/tp check K DAILY SLIDING SCLAE aspiration precaution DC to nursign home in am Subjective ROS Limited/Unobtainable: No Allergies: Coded Allergies: No Known Allergies (Verified , 12/31/09) Objective Last 24 Hour Vital Signs Date Time Temp Pulse Resp B/P Pulse Ox O2 Delivery O2 Flow Rate FiO2 12/23/16 16:00 97.9 79 18 126/74 99 Room Air 12/23/16 12:00 97.9 78 18 145/55 100 Room Air 12/23/16 08:00 97.6 91 18 127/78 100 Room Air 12/23/16 04:00 97.0 78 18 135/60 98 Room Air 12/23/16 00:00 96.8 89 18 124/55 Room Air 12/22/16 20:00 97.0 84 18 129/66 100 Room Air 12/22/16 19:22 Nasal Cannula 2.0 28 12/22/16 19:22 96 Nasal Cannula 2.0 28 12/22/16 19:21 92 18 Nasal Cannula 2.0 28 Intake and Output 12/22/16 12/23/16 19:00 07:00 Intake Total 1200 ml Balance 1200 ml Intake Oral 360 ml IV Total 840 ml # Voids 3 3 # Bowel Movements 1 Objective General Appearance: WD/WN, no apparent distress Lines, tubes and drains: peripheral HEENT: normocephalic, atraumatic Neck: non-tender, supple Respiratory/Chest: chest wall non-tender, rhonchi - bilaterally Cardiovascular/Chest: normal peripheral pulses, normal rate Abdomen: normal bowel sounds Genitourinary/Rectal: normal genital exam Extremities: normal range of motion Laboratory Tests 12/23/16 05:50: White Blood Count 6.5, Red Blood Count 4.01L, Hemoglobin 10.4L, Hematocrit 32.6L , Mean Corpuscular Volume 81, Mean Corpuscular Hemoglobin 25.9L, Mean Corpuscular Hemoglobin Concent 31.9L, Red Cell Distribution Width 13.2, Platelet Count 274, Mean Platelet Volume 5.6L, Neutrophils (%) (Auto) 64.9, Lymphocytes (%) (Auto) 23.7, Monocytes (%) (Auto) 9.5, Eosinophils (%) (Auto) 0.8, Basophils (%) (Auto) 1.1, Sodium Level 139, Potassium Level 3.3L, Chloride Level 96L, Carbon Dioxide Level 29, Anion Gap 14, Blood Urea Nitrogen 22, Creatinine 1.2H, Estimat Glomerular Filtration Rate , Glucose Level 117H, Calcium Level 8.7, Phosphorus Level 4.1, Magnesium Level 1.9, Total Bilirubin 0.4, Aspartate Amino Transf (AST/SGOT) 13, Alanine Aminotransferase (ALT/SGPT) 13, Alkaline Phosphatase 86, Total Protein 6.3L, Albumin 3.4L, Globulin 2.9, Albumin/Globulin Ratio 1.1 Current Medications Medications (Trade) Dose Ordered Sig/Aaron Route PRN Reason Start Time Stop Time Status Last Admin Dose Admin Acetaminophen (Tylenol) 650 mg Q6H PRN ORAL Mild Pain/Temp > 100.5 12/21/16 18:00 01/20/17 17:59 12/22/16 15:50 Albuterol/ Ipratropium (DuoNeb 0.5-3(2.5)mg/3ml) 3 ml Q6H PRN HHN sob 12/21/16 18:00 12/26/16 17:59 Atorvastatin Calcium (Lipitor) 10 mg BEDTIME ORAL 12/21/16 21:00 01/20/17 20:59 12/22/16 21:06 Dextrose (Dextrose 50%) STAT PRN IV Hypoglycemia 12/21/16 18:00 01/20/17 17:59 Heparin Sodium (Porcine) (Heparin 5000 units/ml) 5,000 units EVERY 12 HOURS SUBQ 12/21/16 21:00 01/20/17 20:59 12/23/16 10:38 Insulin Aspart (NovoLOG) BEFORE MEALS AND HS SUBQ 12/21/16 21:00 01/20/17 20:59 12/23/16 17:39 Levofloxacin (Levaquin) 250 mg QHS ORAL 12/22/16 21:00 12/27/16 20:59 12/22/16 21:06 Magnesium Hydroxide (Mom) 30 ml DAILYPRN PRN ORAL Constipation 12/21/16 18:00 01/20/17 17:59 YAQUELIN CORRAL Dec 23, 2016 18:51
[2016-12-23 20:00] VITALS: BP 124/74
[2016-12-24] VITALS: BP 132/71
--- NOTE | 2016-12-24 00:26 | Cardiology Report ---
APPROVED REPORT EKG Measurement Heart [id number] Normal sinus rhythm with sinus arrhythmia Normal ECG
--- NOTE | 2016-12-24 00:27 | Cardiology Report ---
APPROVED REPORT EKG Measurement Heart [id number] Unusual P axis and short MI, probable ectopic atrial rhythm Abnormal ECG
[2016-12-24 04:00] VITALS: BP 128/73
[2016-12-24] MEDS: NovoLOG Insulin Flexpen SUBQ SCH ×2 (06:10→12:59)
[2016-12-24 08:00] VITALS: BP 116/63
[2016-12-24] MEDS: Heparin 5000 units/ml inj SUBQ SCH (09:54)
[2016-12-24 12:00] VITALS: BP 98/76
--- NOTE | 2016-12-24 16:36 | Nephrology Progress Note ---
Assessment/Plan Assessment 1. Hyponatremia. 2. hypokalemia 3. Acute renal failure. 4. Anion gap acidosis, which is mostly anion gap and non-gap. Plan plan to continue ivf replace electrolyte hold maureen and ARB Avoid NSAID Subjective Constitutional: Reports: no symptoms HEENT: Reports: no symptoms Genitourinary: Reports: no symptoms Neurologic/Psychiatric: Reports: no symptoms Subjective patient seen this am at 8 able to tolerate po without any problem alert and awake Objective Objective Last 24 Hour Vital Signs Date Time Temp Pulse Resp B/P Pulse Ox O2 Delivery O2 Flow Rate FiO2 12/24/16 12:00 97.0 76 18 98/76 98 Room Air 12/24/16 08:00 97.9 79 18 116/63 97 Room Air 12/24/16 04:00 97.6 75 18 128/73 96 Room Air 12/24/16 00:00 97.6 77 18 132/71 97 Room Air 12/23/16 20:00 97.8 81 18 124/74 99 Room Air 12/23/16 19:30 90 20 Nasal Cannula 2.0 28 12/23/16 19:30 Nasal Cannula 2.0 28 12/23/16 19:30 96 Nasal Cannula 2.0 28 Intake and Output 12/23/16 12/24/16 18:59 06:59 Intake Total 840 ml 200 ml Balance 840 ml 200 ml Intake Oral 840 ml 200 ml # Voids 3 2 Height (Feet): 5 Height (Inches): 0.00 Weight (Pounds): 110 Objective HEAD AND NECK: No JVP. No LAD. Bitemporal wasting. Dry mucous membranes. Extraocular movements intact. Pupils are reactive to light and accommodation. LUNGS: Decreased breathing sounds on both sides. CARDIAC: Regular rate and rhythm. S1, S2. Positive systolic murmur. ABDOMEN: Soft and nontender. EXTREMITIES: No edema. No clubbing. No cyanosis. JANINE LINDSEY Dec 24, 2016 16:36
--- NOTE | 2016-12-24 21:43 | Pulmonology Progress Note ---
Assessment/Plan Problems: (1) Hyperkalemia (2) EDGAR (acute kidney injury) (3) HTN (hypertension) (4) Diabetes (5) Dementia Assessment/Plan improving continue iv fluids pt/tp check K DAILY SLIDING SCLAE aspiration precaution DC to nursign home today pt was seen earlier today prior to discharge Subjective ROS Limited/Unobtainable: No Interval Events: looks comfortable Allergies: Coded Allergies: No Known Allergies (Verified , 12/31/09) Objective Last 24 Hour Vital Signs Date Time Temp Pulse Resp B/P Pulse Ox O2 Delivery O2 Flow Rate FiO2 12/24/16 12:00 97.0 76 18 98/76 98 Room Air 12/24/16 08:00 97.9 79 18 116/63 97 Room Air 12/24/16 04:00 97.6 75 18 128/73 96 Room Air 12/24/16 00:00 97.6 77 18 132/71 97 Room Air Intake and Output 12/23/16 12/24/16 19:00 07:00 Intake Total 840 ml 200 ml Balance 840 ml 200 ml Intake Oral 840 ml 200 ml # Voids 3 2 Objective General Appearance: WD/WN, no apparent distress Lines, tubes and drains: peripheral HEENT: normocephalic, atraumatic Neck: non-tender, supple Respiratory/Chest: chest wall non-tender, rhonchi - bilaterally Cardiovascular/Chest: normal peripheral pulses, normal rate Abdomen: normal bowel sounds Genitourinary/Rectal: normal genital exam Extremities: normal range of motion YAQUELIN CORRAL Dec 24, 2016 21:43
--- NOTE | 2016-12-26 01:38 | Discharge Summary 2 SIG ---
DATE OF ADMISSION: 12/20/2016 DATE OF DISCHARGE: 12/24/2016 CONSULTANTS: Gwendolyn Moise M.D. HOSPITAL COURSE: The patient is a 76-year-old female, who was brought in for episode of generalized weakness. She has history of diabetes, nondisplaced fracture on the right greater trochanter, hypertension, hyperlipidemia, dementia. Workup at ED showed leukocytosis. Chest x-ray was negative. Laboratories showed evidence of renal failure. BUN 62, creatinine of 1.7, and potassium level was elevated to 9.1. Hyponatremic, sodium level of 128. Troponin was negative. EKG with shortened PA interval. Dr. Moise was consulted. The patient was given IV hydration with D5 water plus 2 amps of bicarbonate. Maxzide was discontinued and lisinopril was placed on hold. Electrolytes were repleted. Renal ultrasound showed negative hydronephrosis. Hemoglobin A1c was 7.9 Laboratories improved. Sodium normalized. The patient underwent physical therapy evaluation and was eventually discharged to SNF. FINAL DIAGNOSES: 1. Acute renal failure. 2. Severe hyperkalemia. 3. Anion gap acidosis. 4. Hyponatremia. 5. Diabetes mellitus, out of control. 6. Dementia. Kristy Michaels M.D. I have been assigned to dictate discharge summary on this account and I was not involved in the patient's management. Debbie Blas N.P. DR: Shyann JOB#: [id number] CC: JUAN MANUEL
== END 2016-12-24 15:20 | DRG 460 ==
LOC: EDBD 12:09 → EMR 12:57 → EDBEDREQ 13:53 → 4W 14:05 → EDBEDREQ 14:42 → 2W 17:43 → 4W 12-21 17:26
DX: N17.9 Acute kidney failure, unspecified (principal); G92 Toxic encephalopathy; E87.2 Acidosis; R53.2 Functional quadriplegia; E87.5 Hyperkalemia; E87.1 Hypo-osmolality and hyponatremia; G80.9 Cerebral palsy, unspecified; I10 Essential (primary) hypertension; F03.90 Unspecified dementia, unspecified severity, without behavioral disturbance, psychotic disturbance, mood disturbance, and anxiety; E11.65 Type 2 diabetes mellitus with hyperglycemia
CPT/HCPCS: 36415; 71010; 76775; 80048; 80053; 82043; 82550; 82553; 82570; 82962; 83036; 83605; 83735; 84100; 84132; 84484; 85025; 87040; 87081; 89050; 93005; 94664; 94760; J1815

== ENCOUNTER 2017-01-19 15:51 | Inpatient (IN) | payer MEDICARE, MEDICAID ==
[~2017-01-19] VITALS: Ht 157.5 cm; Wt 59.0 kg
[~2017-01-19 15:51] MED LIST changes: +HUMULIN R100 UNIT/1 SUBQ; +LANTUS SOL100 UNIT/1 SUBQ; +MAXZIDE 37.5 M1 EAC1 PO
[2017-01-19] MEDS ORDERED: Calcium Gluconate 1gm/10ml vial IVP ONE (16:15)
[2017-01-19 17:00] VITALS: BP 114/57
[2017-01-19 17:19] LABS: BASOPHILS % (AUTO) 0.9 % (0.0-2.0); EOSINOPHILS % (AUTO) 0.7 % (0.0-3.0); LYMPHOCYTES % (AUTO) 22.5 % (20.0-45.0); MEAN CORPUSCULAR HEMOGLOBIN 28.5 PG (27.0-31.0); MEAN CORPUSCULAR HGB CONC 33.8 G/DL (32.0-36.0); MEAN CORPUSCULAR VOLUME 85 FL (80-99); MEAN PLATELET VOLUME 5.8 FL (6.5-10.1); MONOCYTES % (AUTO) 7.8 % (1.0-10.0); NEUTROPHILS % (AUTO) 68.1 % (45.0-75.0); PLATELET COUNT 319 K/UL (150-450); RED BLOOD COUNT 4.36 M/UL (4.20-5.40); RED CELL DISTRIBUTION WIDTH 14.5 % (11.6-14.8); WHITE BLOOD COUNT 6.6 K/UL (4.8-10.8)
[2017-01-19 17:30] LABS: ALANINE AMINOTRANSFERASE 25 U/L (3-33); ALBUMIN/GLOBULIN RATIO 1.4 (1.0-2.7); ANION GAP 23 (5-15); ASPARTATE AMINO TRANSFERASE 21 U/L (5-40); CALCIUM 10.2 mg/dL (8.6-10.2); CARBON DIOXIDE 18 mEQ/L (20-30); CHLORIDE 90 mEQ/L (98-107); CREATININE 1.5 mg/dL (0.5-0.9); HEMOLYSIS 2; SODIUM 131 mEQ/L (135-145); TOTAL PROTEIN 8.7 g/dL (6.6-8.7); TROPONIN I < 0.30 ng/mL (<=0.30)
[2017-01-19 17:36] LABS: POTASSIUM 6.4 mEQ/L (3.4-4.9)
[2017-01-19] MEDS ORDERED: Sodium Bicarbonate 8.4% 50ml Carp IV ONE (17:45)
[2017-01-19] MEDS ORDERED: ACETAMINOPHEN325 M1 ORAL (17:56)
[2017-01-19] MEDS ORDERED: DuoNeb 0.5-3(2.5)mg/3ml neb HHN PRN (18:45)
[2017-01-19] MEDS ORDERED: Miralax 17gm pkt ORAL PRN (18:45)
[2017-01-19] MEDS ORDERED: Zolpidem 5mg tab ORAL PRN (18:45)
[2017-01-19] MEDS ORDERED: Mylanta II UD 30ml ORAL PRN (18:45)
--- NOTE | 2017-01-19 18:53 | Consultation ---
Consult Note Consult Note asked to eval for high K and renal failure- PAST MEDICAL HISTORY: Includin. History of diabetes. 2. History of difficulty walking. 3. History of hyperlipidemia. 4. History of hypertension. 5. History of hypoglycemia. ALLERGIES: No known drug allergy. SOCIAL HISTORY: Lives in a [place] [facility]. There is no history of current tobacco, alcohol, or drug use. MEDICATIONS: Medications at home are includin. Ascorbic acid 250 mg by mouth daily. 2. Colace 200 mg by mouth daily. 3. Lasix 20 mg by mouth daily. 4. Lisinopril 2.5 mg by mouth daily. 5. Magnesium 30 mg by mouth daily. 6. Metformin 500 mg by mouth daily. 7. Ambien one tablet by mouth daily. 8. Maxzide 37.5/25 mg by mouth daily. Patient seen in ER- Examined- Data reviewed PHYSICAL EXAMINATION: VITAL SIGNS: The patient has temperature of 97 degrees, blood pressure of 114/57, pulse rate of 78, and respiratory rate of 22. HEAD AND NECK: No JVP. No LAD. Bitemporal wasting. Dry mucous membranes. Extraocular movements intact. Pupils are reactive to light and accommodation. LUNGS: Decreased breathing sounds on both sides. CARDIAC: Regular rate and rhythm. S1, S2. Positive systolic murmur. ABDOMEN: Soft and nontender. EXTREMITIES: No edema. No clubbing. No cyanosis. Assessment/Plan status: 1. Hyponatremia. 2. Severe hyperkalemia. 3. Acute renal failure. 1.2.3 likely all related to diuretics and lisinopril 4. DM PLAN: Barron Slow Hydrate monitor renal parameters- Urine studies 2D Echo Per orders CYNDY MATHEWS January 19, 2017 18:53
--- NOTE | 2017-01-19 19:03 | Emergency Room Report ---
History of Present Illness General Chief Complaint: Abnormal Labs Source: Patient, EMS Present Illness HPI Patient is a 76-year-old female who presented for abnormal laboratory values. Patient noted have a prior history of hyperkalemia. Patient had the been given Kayexalate prior to arrival. The patient was noted to have a potassium greater than 7 on laboratory testing. The patient was sent for further evaluation and treatment. Patient had prior history of generalized weakness. Allergies: Coded Allergies: No Known Allergies (Verified , 12/31/09) Patient History Past Medical History: see triage record Reviewed Nursing Documentation: PMH: Agreed, PSxH: Agreed Nursing Documentation-PMH Past Medical History: No History, Except For Hx Hypertension: Yes Hx Pacemaker: No Hx Asthma: No Hx COPD: No Hx Diabetes: Yes Hx Cancer: No Hx Gastrointestinal Problems: No Hx Dialysis: No Hx Neurological Problems: Yes Hx Cerebrovascular Accident: No Hx Seizures: No Hx Cerebral Palsy: Yes Review of Systems All Other Systems: negative except mentioned in HPI Physical Exam Vital Signs Date Time Temp Pulse Resp B/P Pulse Ox O2 Delivery O2 Flow Rate FiO2 01/19/17 15:54 97.9 80 20 114/71 99 Room Air Sp02 EP Interpretation: reviewed, normal General Appearance: normal inspection, well appearing, no apparent distress, alert, non-toxic Head: atraumatic ENT: normal ENT inspection, hearing grossly normal, normal voice Neck: normal inspection, full range of motion, supple, no bony tend Respiratory: normal inspection, lungs clear, normal breath sounds, no respiratory distress, no retraction, no wheezing Cardiovascular #1: regular rate, rhythm, no edema Gastrointestinal: normal inspection, normal bowel sounds, non tender, soft, no guarding, no hernia Genitourinary: no CVA tenderness Musculoskeletal: normal inspection, back normal, normal range of motion Neurologic: normal inspection, alert, responsive, speech normal Psychiatric: normal inspection, judgement/insight normal, mood/affect normal Skin: normal inspection, normal color, no rash Medical Decision Making Diagnostic Impression: Primary Impression: Dementia Additional Impression: Hyperkalemia ER Course Patient presented for abnormal laboratory values. Differential diagnosis included was not limited to hyperkalemia secondary to acidoses, hemolysis, laboratory error among others.Because of complexity of patient's case laboratory testing and imaging studies were ordered. I EKG showed minimal peaking of the T waves with possible ectopic atrial rhythm rate of 79. The patient given IV calcium emergency department. She is also given IV bicarbonate. The patient was discussed with Dr. Silvio alvarez for inpatient management due to complexity of medical condition. Labs Test 01/19/17 16:45 White Blood Count 6.6 K/UL (4.8-10.8) Red Blood Count 4.36 M/UL (4.20-5.40) Hemoglobin 12.4 G/DL (12.0-16.0) Hematocrit 36.8 % (37.0-47.0) Mean Corpuscular Volume 85 FL (80-99) Mean Corpuscular Hemoglobin 28.5 PG (27.0-31.0) Mean Corpuscular Hemoglobin Concent 33.8 G/DL (32.0-36.0) Red Cell Distribution Width 14.5 % (11.6-14.8) Platelet Count 319 K/UL (150-450) Mean Platelet Volume 5.8 FL (6.5-10.1) Neutrophils (%) (Auto) 68.1 % (45.0-75.0) Lymphocytes (%) (Auto) 22.5 % (20.0-45.0) Monocytes (%) (Auto) 7.8 % (1.0-10.0) Eosinophils (%) (Auto) 0.7 % (0.0-3.0) Basophils (%) (Auto) 0.9 % (0.0-2.0) Sodium Level 131 mEQ/L (135-145) Potassium Level 6.4 mEQ/L (3.4-4.9) Chloride Level 90 mEQ/L (98-107) Carbon Dioxide Level 18 mEQ/L (20-30) Anion Gap 23 (5-15) Blood Urea Nitrogen 61 mg/dL (7-23) Creatinine 1.5 mg/dL (0.5-0.9) Estimat Glomerular Filtration Rate mL/min (>60) Glucose Level 297 mg/dL (74-106) Calcium Level 10.2 mg/dL (8.6-10.2) Total Bilirubin 0.5 mg/dL (0.0-1.2) Aspartate Amino Transf (AST/SGOT) 21 U/L (5-40) Alanine Aminotransferase (ALT/SGPT) 25 U/L (3-33) Alkaline Phosphatase 108 U/L (35-104) Troponin I < 0.30 ng/mL (<=0.30) Total Protein 8.7 g/dL (6.6-8.7) Albumin 5.1 g/dL (3.5-5.2) Globulin 3.6 g/dL Albumin/Globulin Ratio 1.4 (1.0-2.7) EKG Diagnostic Results Rate: normal - 79 Rhythm: NSR ST Segments: no acute changes Last Vital Signs Date Time Temp Pulse Resp B/P Pulse Ox O2 Delivery O2 Flow Rate FiO2 01/19/17 17:00 78 18 114/57 100 Room Air 01/19/17 15:54 97.9 Status: unchanged Disposition: ADMITTED INPATIENT Condition: Serious Referrals: YAQUELIN ALVAREZ (PCP) Kanu Ornelas January 19, 2017 19:03
[2017-01-19 20:00] VITALS: BP 112/52
[2017-01-19] MEDS: Heparin 5000 units/ml inj SUBQ SCH (20:47)
[2017-01-19] MEDS: NovoLOG Insulin Flexpen SUBQ SCH (21:05)
[2017-01-19] MEDS ORDERED: MILK OF MA400 MG/51 ORAL (22:53)
--- NOTE | 2017-01-19 23:59 | History and Physical ---
History of Present Illness General Date patient seen: January 19, 2017 Reason for Hospitalization: Abnormal Labs Present Illness HPI 76-year-old female with hx of HTN, DM, [facility] resident presented for abnormal laboratory values. Patient noted to have hyperkalemia. She was given Kayexalate prior to arrival. The patient was noted to have a potassium greater than 7 on laboratory testing. She is admitted to telemetry for ATN and hyperkalemia. Allergies: Coded Allergies: No Known Allergies (Verified , 12/31/09) Medication History Scheduled Acetaminophen* (Acetaminophen 325MG Tablet*), 325 MG ORAL Q6HR, (Reported) Amino Acids/Protein Hydrolys (Pro-Stat Liquid), 30 ML ORAL TWICE A DAY, ( Reported) Ascorbic Acid* (Vitamin C*), 250 MG ORAL DAILY, (Reported) Atorvastatin Calcium* (Atorvastatin Calcium*), 20 MG ORAL BEDTIME, (Reported) Docusate Sodium* (Docusate Sodium*), 100 MG ORAL BID, (Reported) Furosemide* (Lasix*), 20 MG ORAL DAILY, (Reported) Insulin Aspart (Novolog Flexpen), 0 UNITS SUBQ BEFORE MEALS AND HS Insulin Glargine (Lantus), 5 SUBQ AC, (Reported) Insulin Glargine (Lantus), 20 UNITS SUBQ BID, (Reported) Lisinopril* (Lisinopril*), 2.5 MG ORAL DAILY, (Reported) Magnesium Hydroxide* (Milk Of Magnesia*), 30 ML ORAL DAILY, (Reported) Metformin Hcl* (Metformin Hcl*), 500 MG ORAL TWICE A DAY, (Reported) Multivitamin With Minerals (Multivitamins With Minerals*), 1 TAB ORAL DAILY, ( Reported) Triamterene/Hydrochlorothiazid (Maxzide 37.5 Mg-25 Mg Tablet), 1 EACH PO DAILY, (Reported) Scheduled PRN Hydrocodone Bit/Acetaminophen 5-325* ([place] 5-325*), 1 TAB ORAL Q4H PRN for For Pain, (Reported) Discontinued Medications Acetaminophen* (Acetaminophen*), 325 MG ORAL Q6H PRN for Mild Pain/Temp > 100.5, (Reported) Discontinued Reason: Prescription changed Amino Acids/Protein Hydrolys (Pro-Stat Liquid), 30 ML ORAL TWICE A DAY, ( Reported) Discontinued Reason: Pt stopped taking med Ascorbic Acid* (Vitamin C*), 250 MG ORAL DAILY, (Reported) Discontinued Reason: Therapy completed Insulin Regular, Human (Humulin R), 0 SUBQ, (Reported) Discontinued Reason: discontinued med Magnesium Hydroxide* (Milk Of Magnesia*), 30 ML ORAL DAILY, (Reported) Discontinued Reason: Pt stopped taking med Patient History Healthcare decision maker Resuscitation status Full Code Advanced Directive on File Yes Past Medical/Surgical History Past Medical/Surgical History: (1) Dementia (2) HTN (hypertension) (3) Diabetes Physical Exam General Appearance: WD/WN Lines, tubes and drains: peripheral HEENT: normocephalic, atraumatic Neck: non-tender, normal alignment Respiratory/Chest: chest wall non-tender, lungs clear Cardiovascular/Chest: normal peripheral pulses, normal rate, regular rhythm Last 24 Hour Vital Signs Date Time Temp Pulse Resp B/P Pulse Ox O2 Delivery O2 Flow Rate FiO2 01/19/17 20:00 80 18 112/52 97 Room Air 01/19/17 19:35 97.9 78 18 114/57 100 Room Air 01/19/17 17:00 78 18 114/57 100 Room Air 01/19/17 15:54 97.9 80 20 114/71 99 Room Air Laboratory Tests Test 01/19/17 16:45 White Blood Count 6.6 K/UL (4.8-10.8) Red Blood Count 4.36 M/UL (4.20-5.40) Hemoglobin 12.4 G/DL (12.0-16.0) Hematocrit 36.8 % (37.0-47.0) L Mean Corpuscular Volume 85 FL (80-99) Mean Corpuscular Hemoglobin 28.5 PG (27.0-31.0) Mean Corpuscular Hemoglobin Concent 33.8 G/DL (32.0-36.0) Red Cell Distribution Width 14.5 % (11.6-14.8) Platelet Count 319 K/UL (150-450) Mean Platelet Volume 5.8 FL (6.5-10.1) L Neutrophils (%) (Auto) 68.1 % (45.0-75.0) Lymphocytes (%) (Auto) 22.5 % (20.0-45.0) Monocytes (%) (Auto) 7.8 % (1.0-10.0) Eosinophils (%) (Auto) 0.7 % (0.0-3.0) Basophils (%) (Auto) 0.9 % (0.0-2.0) Sodium Level 131 mEQ/L (135-145) L Potassium Level 6.4 mEQ/L (3.4-4.9) *H Chloride Level 90 mEQ/L (98-107) L Carbon Dioxide Level 18 mEQ/L (20-30) L Anion Gap 23 (5-15) H Blood Urea Nitrogen 61 mg/dL (7-23) H Creatinine 1.5 mg/dL (0.5-0.9) H Estimat Glomerular Filtration Rate mL/min (>60) Glucose Level 297 mg/dL (74-106) H Calcium Level 10.2 mg/dL (8.6-10.2) Total Bilirubin 0.5 mg/dL (0.0-1.2) Aspartate Amino Transf (AST/SGOT) 21 U/L (5-40) Alanine Aminotransferase (ALT/SGPT) 25 U/L (3-33) Alkaline Phosphatase 108 U/L (35-104) H Troponin I < 0.30 ng/mL (<=0.30) Total Protein 8.7 g/dL (6.6-8.7) Albumin 5.1 g/dL (3.5-5.2) Globulin 3.6 g/dL Albumin/Globulin Ratio 1.4 (1.0-2.7) Height (Feet): 5 Height (Inches): 2.00 Weight (Pounds): 130 Medications Current Medications Medications (Trade) Dose Ordered Sig/Aaron Route PRN Reason Start Time Stop Time Status Last Admin Dose Admin Acetaminophen (Tylenol) 650 mg Q4H PRN ORAL fever 01/19/17 18:45 02/18/17 18:44 Albuterol/ Ipratropium (DuoNeb 0.5-3(2.5)mg/3ml) 3 ml Q6H PRN HHN dyspnea 01/19/17 18:45 01/24/17 18:44 Clonidine HCl (Catapres) 0.1 mg Q4H PRN ORAL For High Blood Pressure 01/19/17 18:45 02/18/17 18:44 Dextrose STAT PRN IV Hypoglycemia 01/19/17 18:45 02/18/17 18:44 Heparin Sodium (Porcine) (Heparin 5000 units/ml) 5,000 units EVERY 12 HOURS SUBQ 01/19/17 21:00 02/18/17 20:59 01/19/17 20:47 Insulin Aspart (NovoLOG) BEFORE MEALS AND HS SUBQ 01/19/17 21:00 02/18/17 20:59 01/19/17 21:05 Morphine Sulfate (Morphine Sulfate) 1 mg Q4H PRN IVP For Pain 01/19/17 18:45 01/26/17 18:44 Ondansetron HCl (Zofran) 4 mg Q6H PRN IVP Nausea & Vomiting 01/19/17 18:45 02/18/17 18:44 Pantoprazole (Protonix) 40 mg DAILY ORAL 01/19/17 19:00 02/18/17 18:59 01/19/17 20:46 Polyethylene Glycol (Miralax) 17 gm HSPRN PRN ORAL Constipation 01/19/17 18:45 02/18/17 18:44 Sodium Polystyrene Sulfonate (Kayexalate) 45 gm DAILY ORAL 01/20/17 09:00 01/23/17 08:59 Sodium Chloride (Sodium Chloride 1000ml bag) 1,000 ml @ 75 mls/hr [id number] IV 01/19/17 19:00 02/18/17 18:59 01/19/17 20:46 Zolpidem Tartrate (Ambien) 5 mg HSPRN PRN ORAL Insomnia 01/19/17 18:45 02/18/17 18:44 Assessment/Plan Problem List: (1) Hyperkalemia ICD Codes: E87.5 - Hyperkalemia SNOMED: 62750251 (2) ATN (acute tubular necrosis) ICD Codes: N17.0 - Acute kidney failure with tubular necrosis SNOMED: 58080067 (3) Dementia ICD Codes: F03.90 - Unspecified dementia without behavioral disturbance SNOMED: 41627302 (4) Diabetes ICD Codes: E11.9 - Type 2 diabetes mellitus without complications SNOMED: 29563213 (5) HTN (hypertension) ICD Codes: I10 - Essential (primary) hypertension SNOMED: 94871261 Assessment/Plan IV fluids kayexalate renal work up check electrolytes in am sliding scale diabetic diet YAQUELIN CORRAL January 19, 2017 23:59
[2017-01-20 00:10] VITALS: BP 103/57
[2017-01-20 03:59] VITALS: BP 100/53
[2017-01-20] MEDS: NovoLOG Insulin Flexpen SUBQ SCH ×4 (06:06→20:41)
[2017-01-20 07:44] LABS: BASOPHILS % (AUTO) 0.8 % (0.0-2.0); EOSINOPHILS % (AUTO) 0.9 % (0.0-3.0); LYMPHOCYTES % (AUTO) 12.8 % (20.0-45.0); MEAN CORPUSCULAR HEMOGLOBIN 26.3 PG (27.0-31.0); MEAN CORPUSCULAR HGB CONC 31.6 G/DL (32.0-36.0); MEAN CORPUSCULAR VOLUME 83 FL (80-99); MONOCYTES % (AUTO) 8.5 % (1.0-10.0); PLATELET COUNT 262 K/UL (150-450); RED CELL DISTRIBUTION WIDTH 14.4 % (11.6-14.8)
[2017-01-20 07:55] VITALS: BP 94/52
[2017-01-20 08:05] LABS: ALANINE AMINOTRANSFERASE 22 U/L (3-33); ALBUMIN/GLOBULIN RATIO 1.1 (1.0-2.7); ANION GAP 19 (5-15); ASPARTATE AMINO TRANSFERASE 22 U/L (5-40); CARBON DIOXIDE 18 mEQ/L (20-30); CHLORIDE 98 mEQ/L (98-107); CHOLESTEROL 139 mg/dL (< 200); CHOLESTEROL/HDL RATIO 1.8 (3.3-4.4); CREATININE 1.2 mg/dL (0.5-0.9); HEMOLYSIS 3; LDL CHOLESTEROL (CALC.) 45 mg/dL (60-99); POTASSIUM 4.9 mEQ/L (3.4-4.9); SODIUM 135 mEQ/L (135-145); TOTAL PROTEIN 6.6 g/dL (6.6-8.7)
[2017-01-20 08:08] LABS: CRP QUANT < 0.3 mg/dL (< 0.5); MAGNESIUM 2.2 mg/dL (1.7-2.5); PHOSPHORUS 4.6 mg/dL (2.5-4.8); URIC ACID 5.3 mg/dL (3.0-7.5)
[2017-01-20 08:29] LABS: HEMOGLOBIN A1C 7.6 % (< 6.0)
--- NOTE | 2017-01-20 08:57 | Pulmonology Progress Note ---
Assessment/Plan Problems: (1) Hyperkalemia (2) ATN (acute tubular necrosis) (3) Dementia (4) Diabetes (5) HTN (hypertension) Assessment/Plan IV fluids NS sliding scale check electrolytes swallow study calorie count Subjective ROS Limited/Unobtainable: No Interval Events: looks better, Constitutional: Reports: no symptoms HEENT: Repors: no symptoms Respiratory: Reports: no symptoms Allergies: Coded Allergies: No Known Allergies (Verified , 12/31/09) Objective Last 24 Hour Vital Signs Date Time Temp Pulse Resp B/P Pulse Ox O2 Delivery O2 Flow Rate FiO2 01/20/17 07:55 97.0 66 20 94/52 99 Room Air 01/20/17 04:00 65 01/20/17 03:59 98.1 70 18 100/53 99 Room Air 01/20/17 00:10 98.8 78 17 103/57 98 Room Air 01/20/17 00:00 75 01/19/17 20:00 80 18 112/52 97 Room Air 01/19/17 19:35 97.9 78 18 114/57 100 Room Air 01/19/17 17:00 78 18 114/57 100 Room Air 01/19/17 15:54 97.9 80 20 114/71 99 Room Air Intake and Output 01/19/17 01/20/17 19:00 07:00 Intake Total 0 ml 765 ml Output Total 1400 ml Balance 0 ml -635 ml Intake Oral 0 ml IV Total 765 ml Output Urine Total 1400 ml # Bowel Movements 3 General Appearance: cachetic HEENT: normocephalic, atraumatic Respiratory/Chest: chest wall non-tender, lungs clear Cardiovascular: normal peripheral pulses, normal rate Abdomen: normal bowel sounds, soft, non tender Extremities: no cyanosis, no clubbing Skin: no rash Neurologic/Psychiatric: plastic dolls mold filler II-XII grossly normal Laboratory Tests 01/19/17 16:45: White Blood Count 6.6, Red Blood Count 4.36, Hemoglobin 12.4, Hematocrit 36.8L, Mean Corpuscular Volume 85, Mean Corpuscular Hemoglobin 28.5, Mean Corpuscular Hemoglobin Concent 33.8, Red Cell Distribution Width 14.5, Platelet Count 319, Mean Platelet Volume 5.8L, Neutrophils (%) (Auto) 68.1, Lymphocytes (%) (Auto) 22.5, Monocytes (%) (Auto) 7.8, Eosinophils (%) (Auto) 0.7, Basophils (%) (Auto ) 0.9, Sodium Level 131L, Potassium Level 6.4*H, Chloride Level 90L, Carbon Dioxide Level 18L, Anion Gap 23H, Blood Urea Nitrogen 61H, Creatinine 1.5H, Estimat Glomerular Filtration Rate , Glucose Level 297H, Calcium Level 10.2, Total Bilirubin 0.5, Aspartate Amino Transf (AST/SGOT) 21, Alanine Aminotransferase (ALT/SGPT) 25, Alkaline Phosphatase 108H, Troponin I < 0.30, Total Protein 8.7, Albumin 5.1, Globulin 3.6, Albumin/Globulin Ratio 1.4 01/20/17 02:00: Urine Random Sodium 89 01/20/17 07:05: White Blood Count 6.0, Red Blood Count 3.70L, Hemoglobin 9.7L, Hematocrit 30.7L , Mean Corpuscular Volume 83, Mean Corpuscular Hemoglobin 26.3L, Mean Corpuscular Hemoglobin Concent 31.6L, Red Cell Distribution Width 14.4, Platelet Count 262, Mean Platelet Volume 6.0L, Neutrophils (%) (Auto) 77.0H, Lymphocytes (%) (Auto) 12.8L, Monocytes (%) (Auto) 8.5, Eosinophils (%) (Auto) 0.9, Basophils (%) (Auto) 0.8, Sodium Level 135, Potassium Level 4.9, Chloride Level 98, Carbon Dioxide Level 18L, Anion Gap 19H, Blood Urea Nitrogen 50H, Creatinine 1.2H, Estimat Glomerular Filtration Rate , Glucose Level 111#H, Calcium Level 9.0, Total Bilirubin 0.6, Aspartate Amino Transf (AST/SGOT) 22, Alanine Aminotransferase (ALT/SGPT) 22, Alkaline Phosphatase 77, Total Protein 6.6, Albumin 3.5, Globulin 3.1, Albumin/Globulin Ratio 1.1, Hemoglobin A1c 7.6H , Uric Acid 5.3, Phosphorus Level 4.6, Magnesium Level 2.2, Gamma Glutamyl Transpeptidase 23, Total Creatine Kinase 34, C-Reactive Protein, Quantitative < 0.3, Pro-B-Type Natriuretic Peptide 54, Triglycerides Level 78, Cholesterol Level 139, LDL Cholesterol 45L, HDL Cholesterol 78H, Cholesterol/HDL Ratio 1.8L , Thyroid Stimulating Hormone (TSH) 4.680H Current Medications Medications (Trade) Dose Ordered Sig/Aaron Route PRN Reason Start Time Stop Time Status Last Admin Dose Admin Acetaminophen (Tylenol) 650 mg Q4H PRN ORAL fever 01/19/17 18:45 02/18/17 18:44 Albuterol/ Ipratropium (DuoNeb 0.5-3(2.5)mg/3ml) 3 ml Q6H PRN HHN dyspnea 01/19/17 18:45 01/24/17 18:44 Clonidine HCl (Catapres) 0.1 mg Q4H PRN ORAL For High Blood Pressure 01/19/17 18:45 02/18/17 18:44 Dextrose STAT PRN IV Hypoglycemia 01/19/17 18:45 02/18/17 18:44 Heparin Sodium (Porcine) (Heparin 5000 units/ml) 5,000 units EVERY 12 HOURS SUBQ 01/19/17 21:00 02/18/17 20:59 01/19/17 20:47 Insulin Aspart (NovoLOG) BEFORE MEALS AND HS SUBQ 01/19/17 21:00 02/18/17 20:59 01/19/17 21:05 Morphine Sulfate (Morphine Sulfate) 1 mg Q4H PRN IVP For Pain 01/19/17 18:45 01/26/17 18:44 Ondansetron HCl (Zofran) 4 mg Q6H PRN IVP Nausea & Vomiting 01/19/17 18:45 02/18/17 18:44 Pantoprazole 40 mg 40 mg DAILY ORAL 01/19/17 19:00 02/18/17 18:59 01/19/17 20:46 Polyethylene Glycol (Miralax) 17 gm HSPRN PRN ORAL Constipation 01/19/17 18:45 02/18/17 18:44 Sodium Polystyrene Sulfonate (Kayexalate) 45 gm DAILY ORAL 01/20/17 09:00 01/23/17 08:59 Sodium Chloride (Sodium Chloride 1000ml bag) 1,000 ml @ 75 mls/hr [id number] IV 01/19/17 19:00 02/18/17 18:59 01/19/17 20:46 Sodium Chloride (Sodium Chloride 1000ml bag) 1,000 ml @ 999 mls/hr Q1H1M ONCE IV 01/20/17 09:00 01/20/17 10:00 UNV Zolpidem Tartrate (Ambien) 5 mg HSPRN PRN ORAL Insomnia 01/19/17 18:45 02/18/17 18:44 YAQUELIN CORRAL January 20, 2017 08:57
[2017-01-20] MEDS ORDERED: Sodium Polystyrene Sulfonate 15gm Powder ORAL SCH (09:00)
[2017-01-20] MEDS: Heparin 5000 units/ml inj SUBQ SCH ×2 (09:17→20:41)
--- NOTE | 2017-01-20 09:38 | General Progress Note ---
Assessment/Plan Status: doing well, stable - from renal stand point Assessment/Plan status: 1. Hyponatremia. 2. Severe hyperkalemia. 3. Acute renal failure. 1.2.3 likely all related to diuretics and lisinopril- ALL IMPROVED 4. DM PLAN: Barron Slow Hydrate monitor renal parameters- Urine studies 2D Echo Per orders Subjective ROS Limited/Unobtainable: No Constitutional: Reports: malaise, weakness Allergies: Coded Allergies: No Known Allergies (Verified , 12/31/09) Objective Last 24 Hour Vital Signs Date Time Temp Pulse Resp B/P Pulse Ox O2 Delivery O2 Flow Rate FiO2 01/20/17 07:55 97.0 66 20 94/52 99 Room Air 01/20/17 04:00 65 01/20/17 03:59 98.1 70 18 100/53 99 Room Air 01/20/17 00:10 98.8 78 17 103/57 98 Room Air 01/20/17 00:00 75 01/19/17 20:00 80 18 112/52 97 Room Air 01/19/17 19:35 97.9 78 18 114/57 100 Room Air 01/19/17 17:00 78 18 114/57 100 Room Air 01/19/17 15:54 97.9 80 20 114/71 99 Room Air Intake and Output 01/19/17 01/20/17 19:00 07:00 Intake Total 0 ml 765 ml Output Total 1400 ml Balance 0 ml -635 ml Intake Oral 0 ml IV Total 765 ml Output Urine Total 1400 ml # Bowel Movements 3 Laboratory Tests 01/19/17 16:45: White Blood Count 6.6, Red Blood Count 4.36, Hemoglobin 12.4, Hematocrit 36.8L, Mean Corpuscular Volume 85, Mean Corpuscular Hemoglobin 28.5, Mean Corpuscular Hemoglobin Concent 33.8, Red Cell Distribution Width 14.5, Platelet Count 319, Mean Platelet Volume 5.8L, Neutrophils (%) (Auto) 68.1, Lymphocytes (%) (Auto) 22.5, Monocytes (%) (Auto) 7.8, Eosinophils (%) (Auto) 0.7, Basophils (%) (Auto ) 0.9, Sodium Level 131L, Potassium Level 6.4*H, Chloride Level 90L, Carbon Dioxide Level 18L, Anion Gap 23H, Blood Urea Nitrogen 61H, Creatinine 1.5H, Estimat Glomerular Filtration Rate , Glucose Level 297H, Calcium Level 10.2, Total Bilirubin 0.5, Aspartate Amino Transf (AST/SGOT) 21, Alanine Aminotransferase (ALT/SGPT) 25, Alkaline Phosphatase 108H, Troponin I < 0.30, Total Protein 8.7, Albumin 5.1, Globulin 3.6, Albumin/Globulin Ratio 1.4 01/20/17 02:00: Urine Random Sodium 89 01/20/17 07:05: White Blood Count 6.0, Red Blood Count 3.70L, Hemoglobin 9.7L, Hematocrit 30.7L , Mean Corpuscular Volume 83, Mean Corpuscular Hemoglobin 26.3L, Mean Corpuscular Hemoglobin Concent 31.6L, Red Cell Distribution Width 14.4, Platelet Count 262, Mean Platelet Volume 6.0L, Neutrophils (%) (Auto) 77.0H, Lymphocytes (%) (Auto) 12.8L, Monocytes (%) (Auto) 8.5, Eosinophils (%) (Auto) 0.9, Basophils (%) (Auto) 0.8, Sodium Level 135, Potassium Level 4.9, Chloride Level 98, Carbon Dioxide Level 18L, Anion Gap 19H, Blood Urea Nitrogen 50H, Creatinine 1.2H, Estimat Glomerular Filtration Rate , Glucose Level 111#H, Calcium Level 9.0, Total Bilirubin 0.6, Aspartate Amino Transf (AST/SGOT) 22, Alanine Aminotransferase (ALT/SGPT) 22, Alkaline Phosphatase 77, Total Protein 6.6, Albumin 3.5, Globulin 3.1, Albumin/Globulin Ratio 1.1, Hemoglobin A1c 7.6H , Uric Acid 5.3, Phosphorus Level 4.6, Magnesium Level 2.2, Gamma Glutamyl Transpeptidase 23, Total Creatine Kinase 34, C-Reactive Protein, Quantitative < 0.3, Pro-B-Type Natriuretic Peptide 54, Triglycerides Level 78, Cholesterol Level 139, LDL Cholesterol 45L, HDL Cholesterol 78H, Cholesterol/HDL Ratio 1.8L , Thyroid Stimulating Hormone (TSH) 4.680H Height (Feet): 5 Height (Inches): 2.00 Weight (Pounds): 130 General Appearance: no apparent distress Neck: limited range of motion Cardiovascular: normal rate Respiratory/Chest: decreased breath sounds Abdomen: soft Objective OTHER PE NOT CHANGED FOULADIAN,CYNDY January 20, 2017 09:38
[2017-01-20] MEDS: Morphine Sulfate 2mg/ml Inj IVP PRN ×2 (11:20→16:26)
[2017-01-20 11:45] VITALS: BP 145/71
--- NOTE | 2017-01-20 12:16 | Wound Care Consultation ---
Wound Assessment Wound Assessment #1: Wound Number: #1 Wound Present on Admission: Yes New Wound: No Status Change of Wound: No Wound Location Body Site Modif: right, upper Wound Location Body Site: arm - forearm Wound Type: ecchymosis - sacttered intact and ruptured ecchymosis. Jonnathan Test: Does not Jonnathan Wound Thickness: Partial Thickness Wound Length: 6.0 Wound Width: 4.0 Percent of Wound [place]/Red: 100 Wound Drainage Description: Serosanguineous Wound Drainage Amount: Scant Wound Drainage Odor: None/Absent Tissue Surrounding Wound: Erythemic Wound General Appearance: Reddened Wound Assessment #2: Wound Number: #2 Wound Present on Admission: Yes New Wound: No Status Change of Wound: No Wound Location Body Site Modif: left Wound Location Body Site: foot - 1st toe noted claw like toe Wound Type: pressure ulcer Jonnathan Test: Does not Jonnathan Pressure Ulcer Stage: deep tissue injury - suspected Wound Thickness: Full Thickness Wound Length: 2.0 Wound Width: 2.0 Wound Depth: utd Percent of Wound [place]/Red: 50 Percent of Wound Purple/Maroon: 50 Wound Drainage Amount: None Wound Drainage Odor: None/Absent Tissue Surrounding Wound: Erythemic Wound General Appearance: Reddened Wound Assessment #3: Wound Number: #3 Wound Present on Admission: Yes New Wound: No Status Change of Wound: No Wound Location Body Site Modif: right Wound Location Body Site: toe - 1st toe ,claw like toe Wound Type: pressure ulcer Jonnathan Test: Does not Jonnathan Pressure Ulcer Stage: deep tissue injury - suspected Wound Thickness: Full Thickness Wound Length: 2.0 Wound Width: 2.0 Wound Depth: utd Percent of Wound [place]/Red: 50 Percent of Wound Purple/Maroon: 50 Wound Drainage Amount: None Wound Drainage Odor: None/Absent Tissue Surrounding Wound: Erythemic Wound General Appearance: Reddened Wound Assessment #4: Wound Number: #4 Wound Present on Admission: Yes New Wound: No Status Change of Wound: No Wound Location Body Site Modif: left Wound Location Body Site: heel Wound Type: pressure ulcer Jonnathan Test: Does not Jonnathan Pressure Ulcer Stage: I Wound Length: 4.0 Wound Width: 4.0 Percent of Wound [place]/Red: 100 Wound Drainage Amount: None Wound Drainage Odor: None/Absent Tissue Surrounding Wound: Intact Wound General Appearance: Reddened Wound Assessment #5: Wound Number: #5 Wound Present on Admission: Yes New Wound: No Status Change of Wound: No Wound Location Body Site Modif: right Wound Location Body Site: heel Wound Type: pressure ulcer Jonnathan Test: Does not Jonnathan Pressure Ulcer Stage: I Wound Length: 4.0 Wound Width: 4.0 Percent of Wound [place]/Red: 100 Wound Drainage Amount: None Wound Drainage Odor: None/Absent Tissue Surrounding Wound: Intact Wound General Appearance: Reddened Wound Comment #1 right forearm scattered intact and ruptures ecchymosis. #2 left 1st toe suspected deep tissue injury. #3 right 1st toe suspected deep tissue injury. #4 left heel pressure ulcer stage I. #5 right heel pressure ulcer stage I. Recommendation. -Apply low air loss overlay mattress SPR. -Local wound care as ordered. -Turn and reposition. -Keep clean and dry. -Optimize nutrition. -Avoid shear and friction. -Heel protectors. -Offload heels. -Assess and notify MD for any further changes of condition in skin noted. KIRBY CARR January 20, 2017 12:16
--- NOTE | 2017-01-20 13:48 | Diagnostic Imaging Report ---
Indications: Abdominal pain, elevated renal function tests and serum alkaline phosphatase Technique: Transabdominal real-time grayscale and duplex Doppler imaging of the upper abdomen and retroperitoneum was performed. Findings: Comparison: None. Patient uncooperativeness limits evaluation. Liver normal size and surface contour, parenchymal echogenicity. No focal lesions. Gallbladder unremarkable. No intraluminal stones or sludge. No mural thickening or adjacent fluid collections. Sonographic Hanks sign negative.. Bile ducts normal caliber. Common bile duct 8 mm. Pancreas head and body suboptimally visualized without obvious abnormality; tail completely obscured. Spleen unremarkable. Right kidney unremarkable. Left kidney unremarkable. Abdominal aorta, intrahepatic portion of inferior vena cava patent, normal caliber. Duplex Doppler imaging demonstrates antegrade flow in splenic, portal, hepatic veins. No ascites. IMPRESSION: Suboptimal visualization of pancreas Otherwise negative abdominal ultrasound.
--- NOTE | 2017-01-20 14:25 | Cardiology Report ---
APPROVED REPORT EKG Measurement Heart [id number] Unusual P axis, possible ectopic atrial rhythm Abnormal ECG
--- NOTE | 2017-01-20 15:50 | Cardiology Report ---
APPROVED REPORT EXAM: Two-dimensional and M-mode echocardiogram with Doppler and color Doppler. INDICATION Congestive Heart Failure M-Mode DIMENSIONS IVSd.9 (0.7-1.1cm)Left Atrium (MM)4.0 (1.6-4.0cm) LVDd4.9 (3.5-5.6cm)Aortic Root2.9 (2.0-3.7cm) PWd.9 (0.7-1.1cm)Aortic Cusp Exc.1.9 (1.5-2.0cm) LVDs3.1 (2.5-4.0cm) PWs1.4 cm Technically difficult study due to poor acoustic windows, and patient being combative. Normal left ventricular chamber size, systolic function and wall motion to extent visualized. Left ventricular ejection fraction estimated to be 65 %. Study quality precludes accurate assessment of regional wall motion. No evidence of left ventricular hypertrophy. Possible atrial septal aneurysm noted No evidence of pericardial effusion. Anterior Echo-free space may be due to pericardial fat or effusion. All other cardiac chamber sizes are within normal limits. Focal aortic valve sclerosis with adequate cusp excursion. Thickened mitral valve leaflets with normal excursion. Pulmonic valve not well visualized. Normal tricuspid valve structure. IVC at normal size 1.7 cm with physiologic collapse. RA pressure 10mmHg. A color flow and spectral Doppler study was performed and revealed: No aortic regurgitation. Mitral diastolic velocities suggest reduced left ventricular relaxation c/w mild LV diastolic dysfunction Grade I. Mild mitral regurgitation Moderate tricuspid regurgitation. Tricuspid systolic velocities suggests peak right ventricular systolic pressure of 40mmHg consistent with mild pulmonary hypertension.
--- NOTE | 2017-01-20 15:50 | Diagnostic Imaging Report ---
Indications: Abdominal pain Technique: Portable supine AP abdomen Findings: Comparison: 01/12/06 Bowel gas pattern remains nonobstructive. Increased feces again noted throughout colon and rectum. Compression fractures of the T12-L2 vertebral bodies now noted. Mild degenerative changes again noted in lower lumbar spine. Fixation hardware now noted in the proximal aspect of right femur, incompletely imaged. Bones are diffusely demineralized. IMPRESSION: No evidence of acute abdominopelvic disease, unchanged Multiple thoracolumbar vertebral body compression fractures, new since previous exam, acuity indeterminate Interval ORIF right femoral fracture, incompletely imaged Degenerative spondylosis Constipation Osteopenia
[2017-01-20 16:10] VITALS: BP 129/62
[2017-01-20 20:00] VITALS: BP 127/57
[2017-01-21] VITALS (7 sets, daily range): BP systolic 104–131; BP diastolic 57–78
[2017-01-21] MEDS: Levothyroxine 25mcg tab ORAL SCH (06:14)
[2017-01-21] MEDS: NovoLOG Insulin Flexpen SUBQ SCH ×4 (06:17→20:28)
[2017-01-21 07:57] LABS: BASOPHILS % (AUTO) 0.9 % (0.0-2.0); EOSINOPHILS % (AUTO) 1.3 % (0.0-3.0); LYMPHOCYTES % (AUTO) 24.1 % (20.0-45.0); MEAN CORPUSCULAR HEMOGLOBIN 26.2 PG (27.0-31.0); MEAN CORPUSCULAR HGB CONC 31.5 G/DL (32.0-36.0); MEAN CORPUSCULAR VOLUME 83 FL (80-99); MEAN PLATELET VOLUME 5.8 FL (6.5-10.1); MONOCYTES % (AUTO) 8.6 % (1.0-10.0); NEUTROPHILS % (AUTO) 65.2 % (45.0-75.0); PLATELET COUNT 262 K/UL (150-450); RED BLOOD COUNT 3.88 M/UL (4.20-5.40); RED CELL DISTRIBUTION WIDTH 14.9 % (11.6-14.8)
[2017-01-21 08:12] LABS: ALANINE AMINOTRANSFERASE 26 U/L (3-33); ALBUMIN/GLOBULIN RATIO 1.1 (1.0-2.7); ANION GAP 17 (5-15); ASPARTATE AMINO TRANSFERASE 21 U/L (5-40); CALCIUM 9.2 mg/dL (8.6-10.2); CARBON DIOXIDE 19 mEQ/L (20-30); CHLORIDE 102 mEQ/L (98-107); CREATININE 1.1 mg/dL (0.5-0.9); HEMOLYSIS 5; MAGNESIUM 2.3 mg/dL (1.7-2.5); PHOSPHORUS 4.1 mg/dL (2.5-4.8); POTASSIUM 4.8 mEQ/L (3.4-4.9); SODIUM 138 mEQ/L (135-145); TOTAL PROTEIN 7.2 g/dL (6.6-8.7)
[2017-01-21] MEDS: Heparin 5000 units/ml inj SUBQ SCH ×2 (08:43→20:27)
--- NOTE | 2017-01-21 11:03 | General Progress Note ---
Assessment/Plan Status: stable Status Narrative Cr 1.1 Assessment/Plan status: 1. Hyponatremia. 2. Severe hyperkalemia. 3. Acute renal failure. 1.2.3 likely all related to diuretics and lisinopril- ALL IMPROVED 4. DM PLAN: DC Barron Slow Hydrate monitor renal parameters- Urine studies 2D Echo EjFx 65% Per orders Subjective ROS Limited/Unobtainable: No Constitutional: Reports: malaise Allergies: Coded Allergies: No Known Allergies (Verified , 12/31/09) Objective Last 24 Hour Vital Signs Date Time Temp Pulse Resp B/P Pulse Ox O2 Delivery O2 Flow Rate FiO2 01/21/17 08:00 73 01/21/17 07:52 97.0 74 20 131/68 100 Room Air 01/21/17 04:00 59 01/21/17 04:00 97.2 69 18 112/66 98 Room Air 01/21/17 00:00 96.9 64 19 118/71 99 Room Air 01/21/17 00:00 63 01/20/17 23:49 74 01/20/17 20:00 97.6 76 21 127/57 98 Room Air 01/20/17 16:10 97.0 77 20 129/62 95 Room Air 01/20/17 15:24 77 01/20/17 11:45 97.0 77 20 145/71 95 Room Air 01/20/17 11:30 73 Intake and Output 01/20/17 01/21/17 19:00 07:00 Intake Total 470 ml 588 ml Output Total 600 ml 1300 ml Balance -130 ml -712 ml Intake Oral 120 ml IV Total 350 ml 588 ml Output Urine Total 600 ml 1300 ml # Voids 2 Laboratory Tests 01/21/17 07:35: White Blood Count 5.0, Red Blood Count 3.88L, Hemoglobin 10.2L, Hematocrit 32.3L , Mean Corpuscular Volume 83, Mean Corpuscular Hemoglobin 26.2L, Mean Corpuscular Hemoglobin Concent 31.5L, Red Cell Distribution Width 14.9H, Platelet Count 262, Mean Platelet Volume 5.8L, Neutrophils (%) (Auto) 65.2, Lymphocytes (%) (Auto) 24.1, Monocytes (%) (Auto) 8.6, Eosinophils (%) (Auto) 1.3, Basophils (%) (Auto) 0.9, Sodium Level 138, Potassium Level 4.8, Chloride Level 102, Carbon Dioxide Level 19L, Anion Gap 17H, Blood Urea Nitrogen 32H, Creatinine 1.1H, Estimat Glomerular Filtration Rate , Glucose Level 141H, Calcium Level 9.2, Phosphorus Level 4.1, Magnesium Level 2.3, Total Bilirubin 0.5, Aspartate Amino Transf (AST/SGOT) 21, Alanine Aminotransferase (ALT/SGPT) 26, Alkaline Phosphatase 89, Total Protein 7.2, Albumin 3.8, Globulin 3.4, Albumin/Globulin Ratio 1.1 Height (Feet): 5 Height (Inches): 2.00 Weight (Pounds): 130 General Appearance: no apparent distress Objective OTHER PE NOT CHANGED CYNDY MATHEWS January 21, 2017 11:03
--- NOTE | 2017-01-21 12:54 | Pulmonology Progress Note ---
Assessment/Plan Problems: (1) Hyperkalemia (2) ATN (acute tubular necrosis) (3) Dementia (4) Diabetes (5) HTN (hypertension) Assessment/Plan IV fluids NS sliding scale check electrolytes swallow study calorie count improving med/surg check electrolytes in am Subjective ROS Limited/Unobtainable: No Interval Events: eating, doing well Allergies: Coded Allergies: No Known Allergies (Verified , 12/31/09) Objective Last 24 Hour Vital Signs Date Time Temp Pulse Resp B/P Pulse Ox O2 Delivery O2 Flow Rate FiO2 01/21/17 11:47 97.0 58 20 104/59 100 Room Air 01/21/17 08:00 73 01/21/17 07:52 97.0 74 20 131/68 100 Room Air 01/21/17 04:00 59 01/21/17 04:00 97.2 69 18 112/66 98 Room Air 01/21/17 00:00 96.9 64 19 118/71 99 Room Air 01/21/17 00:00 63 01/20/17 23:49 74 01/20/17 20:00 97.6 76 21 127/57 98 Room Air 01/20/17 16:10 97.0 77 20 129/62 95 Room Air 01/20/17 15:24 77 Intake and Output 01/20/17 01/21/17 19:00 07:00 Intake Total 470 ml 588 ml Output Total 600 ml 1300 ml Balance -130 ml -712 ml Intake Oral 120 ml IV Total 350 ml 588 ml Output Urine Total 600 ml 1300 ml # Voids 2 General Appearance: WD/WN, cachetic HEENT: normocephalic Respiratory/Chest: chest wall non-tender, lungs clear Breasts: no masses Cardiovascular: no JVD Abdomen: normal bowel sounds, soft, non tender Microbiology Date/Time Source Procedure Growth Status 01/19/17 18:30 Nasal Nares MRSA Culture - Final NO METHICILLIN RESISTANT STAPH AUREUS... Complete Laboratory Tests 01/21/17 07:35: White Blood Count 5.0, Red Blood Count 3.88L, Hemoglobin 10.2L, Hematocrit 32.3L , Mean Corpuscular Volume 83, Mean Corpuscular Hemoglobin 26.2L, Mean Corpuscular Hemoglobin Concent 31.5L, Red Cell Distribution Width 14.9H, Platelet Count 262, Mean Platelet Volume 5.8L, Neutrophils (%) (Auto) 65.2, Lymphocytes (%) (Auto) 24.1, Monocytes (%) (Auto) 8.6, Eosinophils (%) (Auto) 1.3, Basophils (%) (Auto) 0.9, Sodium Level 138, Potassium Level 4.8, Chloride Level 102, Carbon Dioxide Level 19L, Anion Gap 17H, Blood Urea Nitrogen 32H, Creatinine 1.1H, Estimat Glomerular Filtration Rate , Glucose Level 141H, Calcium Level 9.2, Phosphorus Level 4.1, Magnesium Level 2.3, Total Bilirubin 0.5, Aspartate Amino Transf (AST/SGOT) 21, Alanine Aminotransferase (ALT/SGPT) 26, Alkaline Phosphatase 89, Total Protein 7.2, Albumin 3.8, Globulin 3.4, Albumin/Globulin Ratio 1.1 Current Medications Medications (Trade) Dose Ordered Sig/Aaron Route PRN Reason Start Time Stop Time Status Last Admin Dose Admin Acetaminophen (Tylenol) 650 mg Q4H PRN ORAL fever 01/19/17 18:45 02/18/17 18:44 Albuterol/ Ipratropium (DuoNeb 0.5-3(2.5)mg/3ml) 3 ml Q6H PRN HHN dyspnea 01/19/17 18:45 01/24/17 18:44 Dextrose (Dextrose 50%) STAT PRN IV Hypoglycemia 01/19/17 18:45 02/18/17 18:44 Heparin Sodium (Porcine) (Heparin 5000 units/ml) 5,000 units EVERY 12 HOURS SUBQ 01/19/17 21:00 02/18/17 20:59 01/21/17 08:43 Insulin Aspart (NovoLOG) BEFORE MEALS AND HS SUBQ 01/19/17 21:00 02/18/17 20:59 01/21/17 12:04 Levothyroxine Sodium (Synthroid) 25 mcg DAILY@0630 ORAL 01/21/17 06:30 02/20/17 06:29 01/21/17 06:14 Morphine Sulfate (Morphine Sulfate) 1 mg Q4H PRN IVP For Pain 01/19/17 18:45 01/26/17 18:44 01/20/17 16:26 Ondansetron HCl (Zofran) 4 mg Q6H PRN IVP Nausea & Vomiting 01/19/17 18:45 02/18/17 18:44 Pantoprazole (Protonix) 40 mg DAILY ORAL 01/19/17 19:00 02/18/17 18:59 01/21/17 08:42 Polyethylene Glycol (Miralax) 17 gm HSPRN PRN ORAL Constipation 01/19/17 18:45 02/18/17 18:44 Zolpidem Tartrate (Ambien) 5 mg HSPRN PRN ORAL Insomnia 01/19/17 18:45 02/18/17 18:44 YAQUELIN CORRAL January 21, 2017 12:54
[2017-01-22 03:46] VITALS: BP 119/73
[2017-01-22] MEDS: NovoLOG Insulin Flexpen SUBQ SCH ×3 (06:19→17:43)
[2017-01-22] MEDS: Levothyroxine 25mcg tab ORAL SCH (06:20)
[2017-01-22] MEDS ORDERED: DuoNeb 0.5-3(2.5)mg/3ml neb HHN PRN (08:00)
[2017-01-22] MEDS ORDERED: Morphine Sulfate 2mg/ml Inj IVP PRN (08:00)
[2017-01-22 08:10] VITALS: BP 120/61
[2017-01-22] MEDS ORDERED: Heparin 5000 units/ml inj SUBQ SCH (09:00)
[2017-01-22 09:11] LABS: BASOPHILS % (AUTO) 0.7 % (0.0-2.0); EOSINOPHILS % (AUTO) 0.7 % (0.0-3.0); LYMPHOCYTES % (AUTO) 26.2 % (20.0-45.0); MEAN CORPUSCULAR HEMOGLOBIN 26.3 PG (27.0-31.0); MEAN CORPUSCULAR HGB CONC 31.8 G/DL (32.0-36.0); MEAN CORPUSCULAR VOLUME 83 FL (80-99); MONOCYTES % (AUTO) 7.5 % (1.0-10.0); PLATELET COUNT 253 K/UL (150-450); RED BLOOD COUNT 3.81 M/UL (4.20-5.40); RED CELL DISTRIBUTION WIDTH 14.4 % (11.6-14.8); WHITE BLOOD COUNT 6.2 K/UL (4.8-10.8)
[2017-01-22] MEDS ORDERED: NS 275ml ONE (09:26)
[2017-01-22] MEDS ORDERED: Tubing Blood Filter IV ONE (09:26)
[2017-01-22 09:39] LABS: ALANINE AMINOTRANSFERASE 26 U/L (3-33); ALBUMIN/GLOBULIN RATIO 1.1 (1.0-2.7); ANION GAP 17 (5-15); ASPARTATE AMINO TRANSFERASE 22 U/L (5-40); CALCIUM 9.3 mg/dL (8.6-10.2); CARBON DIOXIDE 21 mEQ/L (20-30); CHLORIDE 103 mEQ/L (98-107); HEMOLYSIS 0; MAGNESIUM 2.4 mg/dL (1.7-2.5); PHOSPHORUS 3.4 mg/dL (2.5-4.8); POTASSIUM 4.5 mEQ/L (3.4-4.9); SODIUM 141 mEQ/L (135-145); TOTAL PROTEIN 6.8 g/dL (6.6-8.7)
[2017-01-22 11:36] VITALS: BP 135/70
--- NOTE | 2017-01-22 15:22 | General Progress Note ---
Assessment/Plan Status: stable Assessment/Plan status: 1. Hyponatremia. 2. Severe hyperkalemia. 3. Acute renal failure. 1.2.3 likely all related to diuretics and lisinopril- ALL IMPROVED 4. DM PLAN: stable from renal stand- Slow Hydrate- monitor renal parameters- Urine studies 2D Echo EjFx 65% Per orders Subjective ROS Limited/Unobtainable: No Constitutional: Reports: malaise, weakness Allergies: Coded Allergies: No Known Allergies (Verified , 12/31/09) Objective Last 24 Hour Vital Signs Date Time Temp Pulse Resp B/P Pulse Ox O2 Delivery O2 Flow Rate FiO2 01/22/17 11:36 98.2 71 18 135/70 99 Room Air 01/22/17 08:10 98.0 71 18 120/61 99 Room Air 01/22/17 03:46 98.4 98 18 119/73 94 Room Air 01/21/17 23:49 98.7 100 19 116/78 96 Room Air 01/21/17 20:16 98.8 79 17 118/64 93 Room Air 01/21/17 16:00 64 01/21/17 15:46 96.9 77 20 112/57 100 Room Air Intake and Output 01/21/17 01/22/17 19:00 07:00 Intake Total 562.5 ml Balance 562.5 ml Intake Oral 360 ml IV Total 202.5 ml # Voids 1 2 # Bowel Movements 1 1 Laboratory Tests 01/22/17 08:40: White Blood Count 6.2, Red Blood Count 3.81L, Hemoglobin 10.0L, Hematocrit 31.5L , Mean Corpuscular Volume 83, Mean Corpuscular Hemoglobin 26.3L, Mean Corpuscular Hemoglobin Concent 31.8L, Red Cell Distribution Width 14.4, Platelet Count 253, Mean Platelet Volume 6.0L, Neutrophils (%) (Auto) 65.0, Lymphocytes (%) (Auto) 26.2, Monocytes (%) (Auto) 7.5, Eosinophils (%) (Auto) 0.7, Basophils (%) (Auto) 0.7, Sodium Level 141, Potassium Level 4.5, Chloride Level 103, Carbon Dioxide Level 21, Anion Gap 17H, Blood Urea Nitrogen 24H, Creatinine 1.0H, Estimat Glomerular Filtration Rate , Glucose Level 100, Calcium Level 9.3, Phosphorus Level 3.4, Magnesium Level 2.4, Total Bilirubin 0.4, Aspartate Amino Transf (AST/SGOT) 22, Alanine Aminotransferase (ALT/SGPT) 26, Alkaline Phosphatase 87, Total Protein 6.8, Albumin 3.7, Globulin 3.1, Albumin/Globulin Ratio 1.1 Height (Feet): 5 Height (Inches): 2.00 Weight (Pounds): 130 General Appearance: no apparent distress Neck: limited range of motion Cardiovascular: regular rhythm Respiratory/Chest: decreased breath sounds Abdomen: soft Objective OTHER PE NOT CHANGED CYNDY MATHEWS January 22, 2017 15:22
[2017-01-22 15:55] VITALS: BP 128/65
--- NOTE | 2017-01-22 16:24 | Pulmonology Progress Note ---
Assessment/Plan Problems: (1) Hyperkalemia (2) ATN (acute tubular necrosis) (3) Dementia (4) Diabetes (5) HTN (hypertension) Assessment/Plan improving NS sliding scale check electrolytes swallow study calorie count improving med/surg ok to dc to nursing Subjective ROS Limited/Unobtainable: No Constitutional: Reports: no symptoms HEENT: Repors: no symptoms Respiratory: Reports: no symptoms Allergies: Coded Allergies: No Known Allergies (Verified , 12/31/09) Objective Last 24 Hour Vital Signs Date Time Temp Pulse Resp B/P Pulse Ox O2 Delivery O2 Flow Rate FiO2 01/22/17 15:55 98.0 75 18 128/65 99 Room Air 01/22/17 11:36 98.2 71 18 135/70 99 Room Air 01/22/17 08:10 98.0 71 18 120/61 99 Room Air 01/22/17 03:46 98.4 98 18 119/73 94 Room Air 01/21/17 23:49 98.7 100 19 116/78 96 Room Air 01/21/17 20:16 98.8 79 17 118/64 93 Room Air Intake and Output 01/21/17 01/22/17 19:00 07:00 Intake Total 562.5 ml Balance 562.5 ml Intake Oral 360 ml IV Total 202.5 ml # Voids 1 2 # Bowel Movements 1 1 General Appearance: cachetic HEENT: normocephalic, anicteric Respiratory/Chest: chest wall non-tender, lungs clear Breasts: no masses Cardiovascular: normal peripheral pulses Abdomen: normal bowel sounds, soft, non tender Genitourinary: normal external genitalia Extremities: no cyanosis Neurologic/Psychiatric: 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 Complete 01/20/17 00:00 Rectum VRE Culture - Final NO VANCOMYCIN RESISTANT ENTEROCOCCUS ... Complete Laboratory Tests 01/22/17 08:40: White Blood Count 6.2, Red Blood Count 3.81L, Hemoglobin 10.0L, Hematocrit 31.5L , Mean Corpuscular Volume 83, Mean Corpuscular Hemoglobin 26.3L, Mean Corpuscular Hemoglobin Concent 31.8L, Red Cell Distribution Width 14.4, Platelet Count 253, Mean Platelet Volume 6.0L, Neutrophils (%) (Auto) 65.0, Lymphocytes (%) (Auto) 26.2, Monocytes (%) (Auto) 7.5, Eosinophils (%) (Auto) 0.7, Basophils (%) (Auto) 0.7, Sodium Level 141, Potassium Level 4.5, Chloride Level 103, Carbon Dioxide Level 21, Anion Gap 17H, Blood Urea Nitrogen 24H, Creatinine 1.0H, Estimat Glomerular Filtration Rate , Glucose Level 100, Calcium Level 9.3, Phosphorus Level 3.4, Magnesium Level 2.4, Total Bilirubin 0.4, Aspartate Amino Transf (AST/SGOT) 22, Alanine Aminotransferase (ALT/SGPT) 26, Alkaline Phosphatase 87, Total Protein 6.8, Albumin 3.7, Globulin 3.1, Albumin/Globulin Ratio 1.1 Current Medications Medications (Trade) Dose Ordered Sig/Aaron Route PRN Reason Start Time Stop Time Status Last Admin Dose Admin Acetaminophen (Tylenol) 650 mg Q4H PRN ORAL T>100.5 01/22/17 08:00 02/21/17 07:59 Albuterol/ Ipratropium (DuoNeb 0.5-3(2.5)mg/3ml) 3 ml Q6H PRN HHN dyspnea 01/22/17 08:00 01/27/17 07:59 Dextrose (Dextrose 50%) STAT PRN IV Hypoglycemia 01/22/17 08:00 02/21/17 07:59 Heparin Sodium (Porcine) (Heparin 5000 units/ml) 5,000 units EVERY 12 HOURS SUBQ 01/22/17 09:00 02/21/17 08:59 01/22/17 08:46 Insulin Aspart (NovoLOG) BEFORE MEALS AND HS SUBQ 01/22/17 11:30 02/21/17 11:29 01/22/17 12:02 Levothyroxine Sodium (Synthroid) 25 mcg DAILY@0630 ORAL 01/23/17 06:30 02/22/17 06:29 Morphine Sulfate (Morphine Sulfate) 1 mg Q4H PRN IVP PAIN 4-10 01/22/17 08:00 01/29/17 07:59 Ondansetron HCl (Zofran) 4 mg Q6H PRN IVP Nausea & Vomiting 01/22/17 08:00 02/21/17 07:59 Pantoprazole (Protonix) 40 mg DAILY ORAL 01/22/17 09:00 02/21/17 08:59 01/22/17 08:45 Polyethylene Glycol (Miralax) 17 gm HSPRN PRN ORAL Constipation 01/22/17 21:00 02/21/17 20:59 Zolpidem Tartrate (Ambien) 5 mg HSPRN PRN ORAL Insomnia 01/22/17 21:00 02/21/17 20:59 YAQUELIN CORRAL January 22, 2017 16:24
[2017-01-22] MEDS ORDERED: Zolpidem 5mg tab ORAL PRN (21:00)
[2017-01-22] MEDS ORDERED: Miralax 17gm pkt ORAL PRN (21:00)
[2017-01-23] MEDS ORDERED: Levothyroxine 25mcg tab ORAL SCH (06:30)
--- NOTE | 2017-01-23 14:18 | Discharge Summary ---
Discharge Summary Hospital Course Date of Admission January 19, 2017 at 17:33 Date of Discharge January 22, 2017 at 18:08 Admitting Diagnosis HYPERKALEMIA HPI Venessa Ugalde is a 76 year old female who was admitted on January 19, 2017 at 17: 33 for Hyperkalemia Hospital Course [id number] Discharge Discharge Disposition Patient was discharged to SNF/Subacute Facility(03) Discharge Diagnoses: Debbie Blas NP January 23, 2017 14:17
--- NOTE | 2017-01-23 23:01 | Discharge Summary 2 SIG ---
DATE OF ADMISSION: 01/19/2017 DATE OF DISCHARGE: 01/22/2017 CONSULTANTS: Pérez Schneider M.D. BRIEF HOSPITAL COURSE: The patient is a 76-year-old female with history of hypertension and diabetes, assisted resident, presented to ED for abnormal labs. The patient was noted to have hyperkalemia and was given Kayexalate prior to arrival. On evaluation at ED, potassium level was 6.4. EKG showed minimal peaking of T-waves with possible ectopic atrial rhythm at a rate of 79. She was given IV calcium and IV bicarbonate and was admitted for further management. Dr. Schneider was consulted. The patient was given slow IV hydration. Echocardiogram done showed ejection fraction of 65% with mild pulmonary hypertension, mild mitral regurgitation and moderate tricuspid regurgitation. Abdominal ultrasound showed unremarkable kidneys, otherwise, negative. She came in with multiple deep tissue injuries and stage I pressure ulcer on bilateral heels. She was given wound care and was given frequent repositioning and turning with offloading of site. Electrolytes improved, and the patient was discharged back to assisted. FINAL DIAGNOSES: 1. Acute renal failure, likely related to diuretics and lisinopril. 2. Acute tubular necrosis. 3. Severe hyperkalemia. 4. Hyponatremia. 5. Diabetes mellitus. 6. Dementia. Kristy Michaels M.D. I have been assigned to dictate discharge summary on this account and I was not involved in the patient's management. Debbie Blas N.P. DR: ANNMARIE JOB#: [id number] CC:
== END 2017-01-22 18:08 | DRG 425 ==
LOC: EDBD 15:51 → EMR 16:40 → 2E 17:33 → EDBEDREQ 17:37 → 4W 01-22 07:46
DX: E87.5 Hyperkalemia (principal); N17.0 Acute kidney failure with tubular necrosis; F03.90 Unspecified dementia, unspecified severity, without behavioral disturbance, psychotic disturbance, mood disturbance, and anxiety; I10 Essential (primary) hypertension; E11.9 Type 2 diabetes mellitus without complications; E78.5 Hyperlipidemia, unspecified; E87.1 Hypo-osmolality and hyponatremia; Z79.4 Long term (current) use of insulin
CPT/HCPCS: 36415; 74000; 76700; 80053; 80061; 82550; 82962; 82977; 83036; 83735; 83880; 84100; 84300; 84443; 84484; 84550; 85025; 86140; 87081; 93005; 93306; J1815

== ENCOUNTER 2017-08-24 08:59 | Emergency (ER) | payer MEDICARE, MEDICAID ==
[~2017-08-24] VITALS: Ht 165.1 cm; Wt 54.4 kg
[~2017-08-24 08:59] MED LIST changes: +ACETAMINOPHEN325 M1 ORAL
[2017-08-24 10:09] VITALS: BP 112/54
--- NOTE | 2017-08-24 10:42 | Diagnostic Imaging Report ---
Indication: Headache Technique: Contiguous 5 mm thick transaxial imaging of the head obtained in a Siemens Sensation [address] scanner. Soft tissue and bone windows generated. Automatic Exposure Control was utilized. Total Dose length Product (DLP): 1365.[address] Dose Index Volume (CTDIvol): 70.38 mGy Comparison: none Findings: There is mild prominence of the ventricles, basal cisterns, and cerebral sulci consistent with atrophy. Moderate, nonspecific, white matter hypoattenuation is noted throughout the brain consistent with chronic small vessel disease. There is no midline shift, edema, acute hemorrhage, mass effect, or abnormal extra-axial fluid collections. Bones and extra osseous soft tissues are unremarkable. Impression: No acute intracranial bleed, mass effect or edema. Mild atrophy of the brain. Nonspecific, patchy white matter hypoattenuation probably due to chronic small vessel disease. The CT scanner at [facility] is accredited by the [employer] and the scans are performed using dose optimization techniques as appropriate to a performed exam including Automatic Exposure control.
--- NOTE | 2017-08-24 10:53 | Diagnostic Imaging Report ---
Indication: Abdominal pain Technique: Continuous helical transaxial imaging of the pelvis was obtained from the iliac crest to the pubic symphysis. Coronal 2-D reformats were also obtained. Study obtained in a Siemens sensation [address] Intravenous non-ionic contrast was administered. Total Dose length Product (DLP): 308.[address] Dose Index Volume (CTDIvol): 11.03 mGy Comparison: None Findings: No acute fractures identified. There are pins in the right hip place for a previous hip fracture. Bones are osteopenic. Degenerative joint disease involving the sacroiliac joints and both hips noted with narrowed joint space and osteophytes. Arterial calcifications are present. Urinary bladder is unremarkable. Uterus is seen and appears to be atrophic. There is a left inguinal hernia containing fat. Can't exclude a hernia containing a small amount of bowel. Please correlate clinically. IMPRESSION: No acute injury identified. Degenerative arthritis and generalized osteopenia noted. Old right hip fracture surgically reduced. Incidental left inguinal hernia containing fat and soft tissue attenuation. Small amount of fluid or bowel within the hernia is not excludable. The CT scanner at [facility] is accredited by the [employer] and the scans are performed using dose optimization techniques as appropriate to a performed exam including Automatic Exposure control.
--- NOTE | 2017-08-24 12:07 | Diagnostic Imaging Report ---
Indication: Pain Findings: 3 views of the left shoulder were obtained. No acute fracture or malalignment of the seen. The bones are moderately osteopenic. Degenerative changes of the left shoulder and calcification of the aorta demonstrated. IMPRESSION: No acute injury
[2017-08-24 12:21] VITALS: BP 128/49
[2017-08-24 12:33] VITALS: BP 128/49
--- NOTE | 2017-08-24 13:26 | Emergency Room Report ---
History of Present Illness General Chief Complaint: Multiple Trauma/Fall Source: Medical Record Present Illness HPI 76-year-old female presents ED for evaluation. EMS states that patient fell early this morning at intermediate facility. Unwitnessed. Patient is here for evaluation. Upon arrival patient denies any pain complaints. However EMS states that patient did cry when being moved to the stretcher was guarding her left shoulder. Denies any other injuries. Denies chest pain shortness of breath. No other of any relieving factors. Denies any other associated symptoms Allergies: Coded Allergies: No Known Allergies (Verified , 12/31/09) Patient History Past Medical History: DM, HTN, psych hx Past Surgical History: none Pertinent Family History: none Social History: Denies: smoking, alcohol use, drug use Now: No Immunizations: UTD Reviewed Nursing Documentation: PMH: Agreed, PSxH: Agreed Nursing Documentation-PMH Hx Hypertension: Yes Hx Pacemaker: No Hx Asthma: No Hx COPD: No Hx Diabetes: Yes Hx Cancer: No Hx Dialysis: No History Of Psychiatric Problem: Yes - behavioral Hx Neurological Problems: Yes - Muscle weakness, difficulty in walking Hx Cerebrovascular Accident: No Hx Seizures: No Hx Cerebral Palsy: Yes Review of Systems All Other Systems: negative except mentioned in HPI Physical Exam Vital Signs Date Time Temp Pulse Resp B/P (MAP) Pulse Ox O2 Delivery O2 Flow Rate FiO2 08/24/17 08:51 97.9 72 16 100/60 98 08/24/17 10:09 Room Air Sp02 EP Interpretation: reviewed, normal General Appearance: no apparent distress, alert, GCS 15, non-toxic Head: normocephalic, atraumatic Eyes: bilateral eye normal inspection, bilateral eye PERRL ENT: hearing grossly normal, normal pharynx, no angioedema, normal voice Neck: full range of motion, supple/symm/no masses Respiratory: chest non-tender, lungs clear, normal breath sounds, speaking full sentences Cardiovascular #1: regular rate, rhythm, no edema Cardiovascular #2: 2+ carotid (R), 2+ carotid (L), 2+ radial (R), 2+ radial (L) , 2+ dorsalis pedis (R), 2+ dorsalis pedis (L) Gastrointestinal: normal bowel sounds, non tender, soft, non-distended, no guarding, no rebound Rectal: deferred Genitourinary: normal inspection, no CVA tenderness Musculoskeletal: back normal, gait/station normal, normal range of motion, non- tender Neurologic: alert, oriented x3, responsive, motor strength/tone normal, sensory intact, speech normal Psychiatric: judgement/insight normal, memory normal, mood/affect normal, no suicidal/homicidal ideation Reflexes: 3+ bicep (R), 3+ bicep (L), 3+ tricep (R), 3+ tricep (L), 3+ knee (R) , 3+ knee (L) Skin: normal color, no rash, warm/dry, well hydrated Lymphatic: no adenopathy Medical Decision Making Diagnostic Impression: Primary Impression: Fall Qualified Codes: W19.XXXA - Unspecified fall, initial encounter ER Course Hospital Course 76-year-old female presents to ED status post fall at [facility] Differential diagnoses include: Fracture, dislocation, sprain, contusion Clinical course Patient placed on stretcher. After initial history and physical, I ordered Xrays of L shoulder, CT of head and pelvis Xrays prelim read shows no acute fracture/dislocation. CT of head and pelvis unremarkable. Patient will be discharged back to intermediate physical Diagnosis - fall Stable and discharged to SNF. weight bear as tolerated. Followup with PMD. Return to ED if symptoms recur or worsen Other X-Ray Diagnostic Results Other X-Ray Diagnostic Results : X-Ray ordered: L shoulder # of Views/Limited Vs Complete: 3 View Indication: Pain EP Interpretation: Yes Interpretation: no dislocation, no soft tissue swelling, no fractures Impression: No acute disease Electronically Signed by: Electronically signed by Jose Miguel Olson MD CT/MRI/US Diagnostic Results CT/MRI/US Diagnostic Results #1: Imaging Test Ordered: CT head Impression no acute process CT/MRI/US Diagnostic Results #2: Imaging Test Ordered: CT Pelvis Impression no acute process Last Vital Signs Date Time Temp Pulse Resp B/P (MAP) Pulse Ox O2 Delivery O2 Flow Rate FiO2 08/24/17 12:33 82 18 128/49 Room Air 08/24/17 12:21 96 08/24/17 08:51 97.9 Status: improved Disposition: [facility] SN[facility] Condition: Stable Referrals: YAQUELIN CORRAL (PCP) Patient Instructions: Fall Prevention in the Home, [id number] JOSE MIGUEL OLSON M.D. Aug 24, 2017 13:26
== END 2017-08-24 12:36 ==
LOC: EDBD 08:59 → EMR 09:30
DX: M25.512 Pain in left shoulder (principal); R51 Headache; W19.XXXA Unspecified fall, initial encounter; Y92.129 Unspecified place in nursing home as the place of occurrence of the external cause; G31.9 Degenerative disease of nervous system, unspecified; K40.90 Unilateral inguinal hernia, without obstruction or gangrene, not specified as recurrent; E11.9 Type 2 diabetes mellitus without complications; G80.9 Cerebral palsy, unspecified; I10 Essential (primary) hypertension
CPT/HCPCS: 70450; 72192; 99284

== ENCOUNTER 2017-09-14 21:35 | Inpatient (IN) | payer MEDICAID, MEDICARE ==
[~2017-09-14] VITALS: Ht 162.6 cm; Wt 54.4 kg
--- NOTE | 2017-09-14 21:50 | Emergency Room Report ---
History of Present Illness General Chief Complaint: Abnormal Labs Source: Patient, Medical Record, EMS Present Illness HPI Is a 76-year-old female with history of diabetes, femur fracture and dementia. He presents with chief complaint of hyperkalemia on lab done today. Patient is no other complaint. No nausea no vomiting. No fever or chills. Allergies: Coded Allergies: No Known Allergies (Verified , 12/31/09) Patient History Past Medical History: see triage record, old chart reviewed Past Surgical History: other Pertinent Family History: none Social History: Denies: smoking Now: No Immunizations: other Reviewed Nursing Documentation: PMH: Agreed, PSxH: Agreed Nursing Documentation-PMH Past Medical History: No History, Except For Hx Hypertension: Yes - fracture of right femur Hx Pacemaker: No Hx Asthma: No Hx COPD: No Hx Diabetes: Yes Hx Cancer: No Hx Dialysis: No History Of Psychiatric Problem: Yes - dimentia Hx Neurological Problems: Yes - Muscle weakness, difficulty in walking Hx Cerebrovascular Accident: No Hx Seizures: No Hx Cerebral Palsy: Yes Review of Systems Eye: Denies: eye pain, blurred vision ENT: Denies: ear pain, nose congestion, throat swelling Respiratory: Denies: cough, shortness of breath Cardiovascular: Denies: chest pain, palpitations Gastrointestinal: Denies: abdominal pain, diarrhea, nausea, vomiting Musculoskeletal: Denies: back pain, joint pain Skin: Denies: rash Neurological: Denies: headache, numbness Endocrine: Denies: increased thirst, increased urine Hematologic/Lymphatic: Denies: easy bruising All Other Systems: negative except mentioned in HPI Physical Exam Vital Signs Date Time Temp Pulse Resp B/P (MAP) Pulse Ox O2 Delivery O2 Flow Rate FiO2 09/14/17 21:31 98.2 75 18 122/53 98 Room Air vitals normal Sp02 EP Interpretation: reviewed, normal General Appearance: well appearing, no apparent distress, alert Head: normocephalic, atraumatic Eyes: bilateral eye PERRL, bilateral eye EOMI ENT: hearing grossly normal, normal pharynx Neck: full range of motion, supple, no meningismus Respiratory: chest non-tender, lungs clear, normal breath sounds Cardiovascular #1: regular rate, rhythm, no murmur Gastrointestinal: normal bowel sounds, non tender, no mass, no organomegaly, no bruit, non-distended Musculoskeletal: back normal, normal range of motion Neurologic: alert Psychiatric: mood/affect normal Skin: warm/dry Medical Decision Making Diagnostic Impression: Primary Impression: Acute hyperkalemia Additional Impressions: ARF (acute renal failure) Qualified Codes: N17.9 - Acute kidney failure, unspecified Anemia Qualified Codes: D64.9 - Anemia, unspecified ER Course Patient presents with mild hyperkalemia. There is no EKG changes. Patient also is an acute renal failure. Her baseline creatinine is normal but now 2.5. Patient received IV fluid. No evidence of infection. Will admit for IV fluid and further workup. I discussed this with Dr. Michaels who will admit. Laboratory Tests Test 09/14/17 22:25 09/14/17 22:54 White Blood Count 7.1 K/UL (4.8-10.8) Red Blood Count 3.64 M/UL (4.20-5.40) L Hemoglobin 9.1 G/DL (12.0-16.0) L Hematocrit 30.6 % (37.0-47.0) L Mean Corpuscular Volume 84 FL (80-99) Mean Corpuscular Hemoglobin 24.9 PG (27.0-31.0) L Mean Corpuscular Hemoglobin Concent 29.7 G/DL (32.0-36.0) L Red Cell Distribution Width 13.1 % (11.6-14.8) Platelet Count 278 K/UL (150-450) Mean Platelet Volume 5.3 FL (6.5-10.1) L Neutrophils (%) (Auto) 69.8 % (45.0-75.0) Lymphocytes (%) (Auto) 19.6 % (20.0-45.0) L Monocytes (%) (Auto) 8.9 % (1.0-10.0) Eosinophils (%) (Auto) 1.0 % (0.0-3.0) Basophils (%) (Auto) 0.7 % (0.0-2.0) Sodium Level 134 MMOL/L (136-145) L Potassium Level 5.8 MMOL/L (3.5-5.1) H Chloride Level 103 MMOL/L (98-107) Carbon Dioxide Level 21 MMOL/L (21-32) Anion Gap 10 mmol/L (5-15) Blood Urea Nitrogen 69 mg/dL (7-18) H Creatinine 2.5 MG/DL (0.55-1.30) H Estimat Glomerular Filtration Rate mL/min (>60) Glucose Level 88 MG/DL (74-106) Calcium Level 8.1 MG/DL (8.5-10.1) L Urine Color Pale yellow Urine Appearance Clear Urine pH 5 (4.5-8.0) Urine Specific [place] 1.010 (1.005-1.035) Urine Protein Negative (NEGATIVE) Urine Glucose (UA) Negative (NEGATIVE) Urine Ketones Negative (NEGATIVE) Urine Occult Blood Negative (NEGATIVE) Urine Nitrite Negative (NEGATIVE) Urine Bilirubin Negative (NEGATIVE) Urine Urobilinogen Normal MG/DL (0.0-1.0) Urine Leukocyte Esterase Negative (NEGATIVE) Urine RBC 0-2 /HPF (0 - 2) Urine WBC 0 /HPF (0 - 2) Urine Squamous Epithelial Cells Few /LPF (NONE/OCC) Urine Bacteria None /HPF (NONE) Lab Results Impression labs with hyperkalemia EKG Diagnostic Results Rate: normal Rhythm: NSR ST Segments: no acute changes Rhythm Strip Diag. Results Rhythm Strip Time: 21:50 EP Interpretation: yes Rate: 75 Rhythm: NSR, no PVC's, no ectopy Last Vital Signs Date Time Temp Pulse Resp B/P (MAP) Pulse Ox O2 Delivery O2 Flow Rate FiO2 09/14/17 21:31 98.2 75 18 122/53 98 Room Air Status: improved Disposition: ADMITTED INPATIENT Condition: Serious NITHYA SALVADOR M.D. Sep 14, 2017 21:50
[2017-09-14 22:51] LABS: BASOPHILS % (AUTO) 0.7 % (0.0-2.0); HEMATOCRIT 30.6 % (37.0-47.0); HEMOGLOBIN 9.1 G/DL (12.0-16.0); LYMPHOCYTES % (AUTO) 19.6 % (20.0-45.0); MEAN CORPUSCULAR VOLUME 84 FL (80-99); MONOCYTES % (AUTO) 8.9 % (1.0-10.0); NEUTROPHILS % (AUTO) 69.8 % (45.0-75.0); PLATELET COUNT 278 K/UL (150-450); RED BLOOD COUNT 3.64 M/UL (4.20-5.40); RED CELL DISTRIBUTION WIDTH 13.1 % (11.6-14.8); WHITE BLOOD COUNT 7.1 K/UL (4.8-10.8)
[2017-09-14 23:01] LABS: ANION GAP 10 mmol/L (5-15); BLOOD UREA NITROGEN 69 mg/dL (7-18); CALCIUM 8.1 MG/DL (8.5-10.1); CARBON DIOXIDE 21 MMOL/L (21-32); CHLORIDE 103 MMOL/L (98-107); CREATININE 2.5 MG/DL (0.55-1.30); POTASSIUM 5.8 MMOL/L (3.5-5.1); SODIUM 134 MMOL/L (136-145)
[2017-09-14] MEDS ORDERED: Sodium Polystyrene Sulfonate 15gm Powder ORAL ONE (23:15)
[2017-09-14 23:23] LABS: APPEARANCE,URINE CLEAR; BILIRUBIN, URINE NEGATIVE (NEGATIVE); COLOR,URINE PALE YELLOW; GLUCOSE, URINE (UA) NEGATIVE (NEGATIVE); KETONES,URINE NEGATIVE (NEGATIVE); LEUKOCYTE ESTERASE ,URINE NEGATIVE (NEGATIVE); NITRITE,URINE NEGATIVE (NEGATIVE); PH,URINE 5 (4.5-8.0); PROTEIN,URINE NEGATIVE (NEGATIVE); UROBILINOGEN,URINE NORMAL MG/DL (0.0-1.0)
[2017-09-14] MEDS ORDERED: Albuterol/Ipratropium 3ml neb HHN PRN (23:45)
[2017-09-14] MEDS ORDERED: Zolpidem 5mg tab ORAL PRN (23:45)
[2017-09-14] MEDS ORDERED: Mylanta II UD 30ml ORAL PRN (23:45)
[2017-09-14] MEDS ORDERED: Miralax 17gm pkt ORAL PRN (23:45)
[2017-09-15] VITALS (8 sets, daily range): BP systolic 93–124; BP diastolic 52–70
[2017-09-15] MEDS ORDERED: LORazepam Inj 2mg/ml 1ml IV ONE (00:30)
[2017-09-15 02:22] LABS: ANION GAP 10 mmol/L (5-15); BLOOD UREA NITROGEN 65 mg/dL (7-18); CALCIUM 7.6 MG/DL (8.5-10.1); CARBON DIOXIDE 20 MMOL/L (21-32); CHLORIDE 104 MMOL/L (98-107); CREATININE 2.5 MG/DL (0.55-1.30); POTASSIUM 5.8 MMOL/L (3.5-5.1); SODIUM 134 MMOL/L (136-145)
[2017-09-15] MEDS: NovoLOG Insulin Flexpen SUBQ SCH ×4 (06:17→20:26)
[2017-09-15] MEDS: Sodium Polystyrene Sulfonate 15gm Powder ORAL SCH (09:00)
[2017-09-15 09:03] LABS: BASOPHILS % (AUTO) 0.7 % (0.0-2.0); EOSINOPHILS % (AUTO) 0.9 % (0.0-3.0); HEMATOCRIT 26.5 % (37.0-47.0); HEMOGLOBIN 8.2 G/DL (12.0-16.0); LYMPHOCYTES % (AUTO) 18.4 % (20.0-45.0); MEAN CORPUSCULAR VOLUME 84 FL (80-99); MONOCYTES % (AUTO) 9.4 % (1.0-10.0); NEUTROPHILS % (AUTO) 70.6 % (45.0-75.0); PLATELET COUNT 259 K/UL (150-450); RED BLOOD COUNT 3.14 M/UL (4.20-5.40); RED CELL DISTRIBUTION WIDTH 13.6 % (11.6-14.8); WHITE BLOOD COUNT 6.5 K/UL (4.8-10.8)
[2017-09-15 09:26] LABS: ALANINE AMINOTRANSFERASE 17 U/L (12-78); ALBUMIN 2.8 G/DL (3.4-5.0); ALBUMIN/GLOBULIN RATIO 0.8 (1.0-2.7); ALKALINE PHOSPHATASE 87 U/L (46-116); ANION GAP 11 mmol/L (5-15); ASPARTATE AMINO TRANSFERASE 13 U/L (15-37); BILIRUBIN,TOTAL 0.2 MG/DL (0.2-1.0); BLOOD UREA NITROGEN 59 mg/dL (7-18); CALCIUM 7.2 MG/DL (8.5-10.1); CARBON DIOXIDE 18 MMOL/L (21-32); CHLORIDE 109 MMOL/L (98-107); CHOLESTEROL 120 MG/DL (< 200); CREATININE 2.3 MG/DL (0.55-1.30); HDL CHOLESTEROL 68 MG/DL (40-60); POTASSIUM 5.6 MMOL/L (3.5-5.1); SODIUM 138 MMOL/L (136-145); TRIGLYCERIDES 91 MG/DL (30-150)
[2017-09-15] MEDS: Heparin 5000 units/ml inj SUBQ SCH ×2 (09:40→20:25)
--- NOTE | 2017-09-15 12:13 | Consultation ---
Consult Note Consult Note asked to eval for renal failure and high K Is a 76-year-old female with history of diabetes, femur fracture and dementia. He presents with chief complaint of hyperkalemia on lab done today. Patient is no other complaint. No nausea no vomiting. No fever or chills. Reviewed Nursing Documentation: PMH: Agreed, PSxH: Agreed Hx Hypertension: Yes - fracture of right femur Hx Diabetes: Yes History Of Psychiatric Problem: Yes - dimentia Hx Neurological Problems: Yes - Muscle weakness, difficulty in walking Hx Cerebral Palsy: Yes examined data reviewed . Assessment/Plan Acute renal failure ? CKD DM Anemia Plan: Hydrate Anemia patricio Urine studies monitor renal parameters urine for Eos and Na CYNDY MATHEWS Sep 15, 2017 12:13
[2017-09-15] MEDS ORDERED: Sodium Chloride 500ML 500 ML IV ONE (12:15)
[2017-09-15 12:43] LABS: FERRITIN 51 NG/ML (8-388); PHOSPHORUS 4.9 MG/DL (2.5-4.9)
[2017-09-15 12:54] LABS: % IRON SATURATION 13 % (15-50); IRON 32 ug/dL (50-175); TOTAL IRON BINDING CAPACITY 248 ug/dL (250-450)
--- NOTE | 2017-09-15 13:37 | Wound Care Consultation ---
Wound Assessment Wound Assessment #1: Wound Number: 1 Wound Present on Admission: Yes Wound Location Body Site Modif: right Wound Location Body Site: toe - 1st big toe , noted contracted Wound Type: pressure ulcer Jonnathan Test: Does not Jonnathan Pressure Ulcer Stage: Deep Tissue Injury - suspected Wound Thickness: Full Thickness Wound Length: 2.0 Wound Width: 2.0 Wound Depth: utd Percent of Wound Black/Brown: 100 - rodriguez/brown/dry Other Colors Identified: noted thick yellow adhered callus to site Wound Drainage Amount: None Wound Drainage Odor: None/Absent Tissue Surrounding Wound: Intact Wound General Appearance: Reddened - rodriguez/brown Wound Assessment #2: Wound Number: 2 Wound Present on Admission: Yes New Wound: No Status Change of Wound: No Wound Location Body Site Modif: right, dorsal - aspect of foot Wound Type: other - dry flaky skin Percent of Wound Black/Brown: 100 - rodriguez color scattered dry flaky adhered skin Wound Drainage Amount: None Wound Drainage Odor: None/Absent Tissue Surrounding Wound: Intact Wound General Appearance: Open to air Wound Assessment #3: Wound Number: 3 Wound Present on Admission: Yes New Wound: No Status Change of Wound: No Wound Location Body Site Modif: right, lateral Wound Location Body Site: malleolus/ankle Wound Type: pressure ulcer Jonnathan Test: Does not Jonnathan Pressure Ulcer Stage: Deep Tissue Injury - suspected Wound Thickness: Full Thickness Wound Length: 2.0 Wound Width: 2.0 Wound Depth: utd Percent of Wound [place]/Red: 50 - deep red Percent of Wound Purple/Maroon: 50 Other Colors Identified: noted dry brown color, Wound Drainage Amount: None Wound Drainage Odor: None/Absent Tissue Surrounding Wound: Erythemic Wound General Appearance: Reddened - maroon,deep red, brown dry. Wound Assessment #4: Wound Number: 4 Wound Present on Admission: Yes New Wound: No Status Change of Wound: No Wound Location Body Site Modif: left, right Wound Location Body Site: toe - scattered on anterior portion of toes. Wound Type: pressure ulcer Jonnathan Test: Does not Jonnathan Pressure Ulcer Stage: I Percent of Wound [place]/Red: 100 - scattered Wound Drainage Amount: None Wound Drainage Odor: None/Absent Tissue Surrounding Wound: Intact Wound General Appearance: Reddened, Open to air Wound Assessment #5: Wound Number: 5 Wound Present on Admission: Yes New Wound: No Status Change of Wound: No Wound Location Body Site Modif: left Wound Location Body Site: heel Wound Type: pressure ulcer Jonnathan Test: Does not Jonnathan Pressure Ulcer Stage: Deep Tissue Injury - suspected Wound Thickness: Full Thickness Wound Length: 6.0 Wound Width: 6.0 Wound Depth: utd Percent of Wound [place]/Red: 100 - deep red Wound Drainage Amount: None Wound Drainage Odor: None/Absent Tissue Surrounding Wound: Erythemic Wound General Appearance: Reddened Wound Assessment #6: Wound Number: 6 Wound Present on Admission: Yes New Wound: No Status Change of Wound: No Wound Location Body Site Modif: right Wound Location Body Site: heel Wound Type: pressure ulcer Jonnathan Test: Does not Jonnathan Pressure Ulcer Stage: Deep Tissue Injury - suspected Wound Thickness: Full Thickness Wound Length: 6.0 Wound Width: 6.0 Wound Depth: utd Percent of Wound [place]/Red: 100 - deep red Wound Drainage Amount: None Wound Drainage Odor: None/Absent Tissue Surrounding Wound: Erythemic Wound General Appearance: Reddened Wound Assessment #7: Wound Number: 7 Wound Present on Admission: Yes New Wound: No Status Change of Wound: No Wound Location Body Site Modif: left, lateral Wound Location Body Site: foot - extending to 5 metatarsal ,extending to 5 lateral toe Wound Type: pressure ulcer Jonnathan Test: Does not Jonnathan Pressure Ulcer Stage: Deep Tissue Injury - scattered suspected Wound Thickness: Full Thickness Percent of Wound [place]/Red: 100 - deep red Wound Drainage Amount: None Wound Drainage Odor: None/Absent Tissue Surrounding Wound: Erythemic Wound General Appearance: Reddened Wound Assessment #8: Wound Number: 8 Wound Present on Admission: Yes New Wound: No Status Change of Wound: No Wound Location Body Site Modif: right, lateral Wound Location Body Site: foot - extending to 5 metatarsal ,extending to 5 lateral toe Wound Type: pressure ulcer Jonnathan Test: Does not Jonnathan Pressure Ulcer Stage: Deep Tissue Injury - scattered suspected Wound Thickness: Full Thickness Percent of Wound [place]/Red: 100 - deep red Wound Drainage Amount: None Wound Drainage Odor: None/Absent Tissue Surrounding Wound: Erythemic Wound General Appearance: Reddened Wound Comment #1 Right tip of 1st big toe suspected deep tissue injury #2 Right dorsal aspect of foot scattered dry brown flaky skin. #3 Right lateral malleolus suspected deep tissue injury. #4 Left and right foot anterior toes scattered stage 1 redness, noted contracture/curl to toes #5 Left heel suspected deep tissue injury. #6 Right heel suspected deep tissue injury. #7 Left lateral foot extending to 5th metatarsal head to 5th toe suspected deep tissue injury. #8 Right lateral foot extending to 5th metatarsal head to 5th toe suspected deep tissue injury. #9 Posterior back scattered scar tissues-intact. Noted toes to bilateral feet with contracted/curled toes,- strict off load to avoid skin breakdown. RECOMMENDATION. -Local wound care as ordered. -Turn and reposition. -Keep clean and dry. -Offload affected sites. -Avoid shear or friction. -Optimize nutrition. -Apply low air loss SPR mattress. -Assess and notify for any further changes of condition to skin noted. KIRBY CARR Sep 15, 2017 13:37
[2017-09-15] MEDS: Morphine Sulfate 2mg/ml Inj IVP PRN ×2 (14:26→21:32)
--- NOTE | 2017-09-15 16:14 | General Progress Note ---
Assessment/Plan Status: stable, progressing Assessment/Plan encephalopathy -zyprexa -haldol im Subjective Date patient seen: Sep 15, 2017 Neurologic/Psychiatric: Reports: anxiety, depressed, emotional problems Allergies: Coded Allergies: No Known Allergies (Verified , 12/31/09) Objective Last 24 Hour Vital Signs Date Time Temp Pulse Resp B/P (MAP) Pulse Ox O2 Delivery O2 Flow Rate FiO2 09/15/17 15:46 97.8 68 21 124/70 97 09/15/17 14:21 62 20 Room Air 21 09/15/17 11:45 97.9 62 20 96/52 99 09/15/17 08:56 98.0 64 20 109/62 100 09/15/17 04:00 97.5 66 21 107/55 95 09/15/17 02:30 97.3 74 21 108/58 98 09/15/17 02:13 98.2 18 122/53 98 Room Air 09/15/17 02:13 98.2 18 122/53 98 Room Air 09/14/17 21:31 98.2 75 18 122/53 98 Room Air Intake and Output 09/14/17 09/15/17 19:00 07:00 Intake Total 0 ml Output Total 900 ml Balance -900 ml Intake Oral 0 ml Output Urine Total 900 ml Laboratory Tests 09/14/17 22:25: White Blood Count 7.1, Red Blood Count 3.64L, Hemoglobin 9.1L, Hematocrit 30.6L , Mean Corpuscular Volume 84, Mean Corpuscular Hemoglobin 24.9L, Mean Corpuscular Hemoglobin Concent 29.7L, Red Cell Distribution Width 13.1, Platelet Count 278, Mean Platelet Volume 5.3L, Neutrophils (%) (Auto) 69.8, Lymphocytes (%) (Auto) 19.6L, Monocytes (%) (Auto) 8.9, Eosinophils (%) (Auto) 1.0, Basophils (%) (Auto) 0.7, Sodium Level 134L, Potassium Level 5.8H, Chloride Level 103, Carbon Dioxide Level 21, Anion Gap 10, Blood Urea Nitrogen 69H, Creatinine 2.5H, Estimat Glomerular Filtration Rate , Glucose Level 88, Calcium Level 8.1L 09/14/17 22:54: Urine Color Pale yellow, Urine Appearance Clear, Urine pH 5, Urine Specific [place] 1.010, Urine Protein Negative, Urine Glucose (UA) Negative, Urine Ketones Negative, Urine Occult Blood Negative, Urine Nitrite Negative, Urine Bilirubin Negative, Urine Urobilinogen Normal, Urine Leukocyte Esterase Negative , Urine RBC 0-2, Urine WBC 0, Urine Squamous Epithelial Cells Few, Urine Bacteria None 09/15/17 01:45: Sodium Level 134L, Potassium Level 5.8H, Chloride Level 104, Carbon Dioxide Level 20L, Anion Gap 10, Blood Urea Nitrogen 65H, Creatinine 2.5H, Estimat Glomerular Filtration Rate , Glucose Level 152H, Calcium Level 7.6L 09/15/17 08:45: White Blood Count 6.5, Red Blood Count 3.14L, Hemoglobin 8.2L, Hematocrit 26.5L , Mean Corpuscular Volume 84, Mean Corpuscular Hemoglobin 26.2L, Mean Corpuscular Hemoglobin Concent 31.0L, Red Cell Distribution Width 13.6, Platelet Count 259, Mean Platelet Volume 6.0L, Neutrophils (%) (Auto) 70.6, Lymphocytes (%) (Auto) 18.4L, Monocytes (%) (Auto) 9.4, Eosinophils (%) (Auto) 0.9, Basophils (%) (Auto) 0.7, Sodium Level 138, Potassium Level 5.6H, Chloride Level 109H, Carbon Dioxide Level 18L, Anion Gap 11, Blood Urea Nitrogen 59H, Creatinine 2.3H, Estimat Glomerular Filtration Rate , Glucose Level 151H, Calcium Level 7.2L, Hemoglobin A1c 7.5H, Uric Acid 5.3, Phosphorus Level 4.9, Magnesium Level 1.9, Iron Level 32L, Total Iron Binding Capacity 248L, Percent Iron Saturation 13L, Unsaturated Iron Binding 216, Ferritin 51, Total Bilirubin 0.2, Aspartate Amino Transf (AST/SGOT) 13L, Alanine Aminotransferase (ALT/SGPT) 17, Alkaline Phosphatase 87, Total Protein 6.3L, Albumin 2.8L, Globulin 3.5, Albumin/Globulin Ratio 0.8L, Triglycerides Level 91, Cholesterol Level 120, LDL Cholesterol 40, HDL Cholesterol 68H, Cholesterol/HDL Ratio 1.8L, Vitamin B12 Level 266, Folate 16.9, Thyroid Stimulating Hormone (TSH) 5.144H 09/15/17 13:00: Urine Random Sodium 53 Height (Feet): 5 Height (Inches): 4.00 Weight (Pounds): 120 General Appearance: no apparent distress, alert, confused, agitated Neurologic: disoriented, depressed affect Rema Banks M.D. Sep 15, 2017 16:14
[2017-09-15] MEDS ORDERED: Haloperidol Lactate 5 MG in D5W 55 ML IVPB PRN (16:15)
--- NOTE | 2017-09-15 17:46 | Cardiology Report ---
APPROVED REPORT EXAM: Two-dimensional and M-mode echocardiogram with Doppler and color Doppler. INDICATION Congestive Heart Failure M-Mode DIMENSIONS IVSd1.6 (0.7-1.1cm)Left Atrium (MM)4.0 (1.6-4.0cm) LVDd3.7 (3.5-5.6cm)Aortic Root3.5 (2.0-3.7cm) PWd1.4 (0.7-1.1cm)Aortic Cusp Exc.1.9 (1.5-2.0cm) IVSs2.1 cm LVDs2.5 (2.5-4.0cm) PWs1.4 cm Limited study due to combative patient. Normal left ventricular chamber size,midl global hypokiesis Left ventricular ejection fraction estimated to be 45-50 %. Mild left ventricular hypertrophy by 2-D. No evidence of pericardial effusion . All other cardiac chamber sizes are within normal limits. Focal aortic valve sclerosis with adequate cusp excursion. Thickened mitral valve leaflets with normal excursion. Mitral annulus and aortic root calcification. Pulmonic valve not well visualized. Normal tricuspid valve structure. A color flow and spectral Doppler study was performed and revealed: No aortic regurgitation. Mild mitral regurgitation . Mitral diastolic velocities suggest reduced left ventricular relaxation c/w mild LV diastolic dysfunction (Grade I ) Mild tricuspid regurgitation. Tricuspid systolic velocities suggests peak right ventricular systolic pressure of 37mmHg . No pulmonic regurgitation present.
--- NOTE | 2017-09-15 17:54 | Cardiology Report ---
APPROVED REPORT EKG Measurement Heart [id number] MA 116P [id number] Normal sinus rhythm Normal ECG
--- NOTE | 2017-09-15 20:31 | History and Physical ---
History of Present Illness General Date patient seen: Sep 15, 2016 Reason for Hospitalization: Critically abnormal labs Present Illness HPI 76 y/o gentle lady with pmhx Diabetes, Dementia, Right femur fracture and chronic kidney disease presents to [facility] ER after residential laboratory results reveal critical high potassium. Allergies: Coded Allergies: No Known Allergies (Verified , 12/31/09) Medication History Scheduled Acetaminophen* (Acetaminophen 325MG Tablet*), 325 MG ORAL Q6HR, (Reported) Amino Acids/Protein Hydrolys (Pro-Stat Liquid), 30 ML ORAL TWICE A DAY, ( Reported) Ascorbic Acid* (Vitamin C*), 250 MG ORAL DAILY, (Reported) Atorvastatin Calcium* (Atorvastatin Calcium*), 20 MG ORAL BEDTIME, (Reported) Docusate Sodium* (Docusate Sodium*), 100 MG ORAL BID, (Reported) Furosemide* (Lasix*), 20 MG ORAL DAILY, (Reported) Insulin Aspart (Novolog Flexpen), 0 UNITS SUBQ BEFORE MEALS AND HS Insulin Glargine (Lantus), 5 SUBQ AC, (Reported) Insulin Glargine (Lantus), 20 UNITS SUBQ BID, (Reported) Lisinopril* (Lisinopril*), 2.5 MG ORAL DAILY, (Reported) Magnesium Hydroxide* (Milk Of Magnesia*), 30 ML ORAL DAILY, (Reported) Metformin Hcl* (Metformin Hcl*), 500 MG ORAL TWICE A DAY, (Reported) Multivitamin With Minerals (Multivitamins With Minerals*), 1 TAB ORAL DAILY, ( Reported) Triamterene/Hydrochlorothiazid (Maxzide 37.5 Mg-25 Mg Tablet), 1 EACH PO DAILY, (Reported) Scheduled PRN Hydrocodone Bit/Acetaminophen 5-325* ([place] 5-325*), 1 TAB ORAL Q4H PRN for For Pain, (Reported) Patient History Healthcare decision maker Resuscitation status Full Code Advanced Directive on File Past Medical/Surgical History Past Medical/Surgical History: (1) Diabetes mellitus (2) Hip fracture (3) UTI (urinary tract infection) (4) Encephalopathy acute (5) Dementia (6) HTN (hypertension) (7) ATN (acute tubular necrosis) (8) Fall (9) Anemia (10) Acute hyperkalemia (11) ARF (acute renal failure) Review of Systems Constitutional: Reports: weakness All Other Systems: negative except mentioned in HPI Physical Exam General Appearance: no apparent distress, confused HEENT: normocephalic, atraumatic, PERRL Neck: non-tender, normal alignment, supple, normal inspection Respiratory/Chest: chest wall non-tender, normal breath sounds, no respiratory distress Breasts: no masses Cardiovascular/Chest: normal peripheral pulses, normal rate, regular rhythm, no JVD Abdomen: normal bowel sounds, non tender, soft, no organomegaly, no mass Genitourinary/Rectal: normal genital exam, normal rectal exam Extremities: other - right lower extremity immobile Skin Exam: normal pigmentation, warm/dry Neurologic: pillowcase sewer II-XII grossly normal, responsive, depressed affect Last 24 Hour Vital Signs Date Time Temp Pulse Resp B/P (MAP) Pulse Ox O2 Delivery O2 Flow Rate FiO2 09/15/17 19:13 97.3 71 20 102/58 98 Room Air 09/15/17 15:47 Room Air 09/15/17 15:46 97.8 68 21 124/70 97 09/15/17 14:21 62 20 Room Air 21 09/15/17 11:46 Room Air 09/15/17 11:45 97.9 62 20 96/52 99 09/15/17 08:57 Room Air 09/15/17 08:56 98.0 64 20 109/62 100 09/15/17 04:00 97.5 66 21 107/55 95 09/15/17 02:30 97.3 74 21 108/58 98 09/15/17 02:13 98.2 18 122/53 98 Room Air 09/15/17 02:13 98.2 18 122/53 98 Room Air 09/14/17 21:31 98.2 75 18 122/53 98 Room Air Intake and Output 09/14/17 09/15/17 19:00 07:00 Intake Total 0 ml Output Total 900 ml Balance -900 ml Intake Oral 0 ml Output Urine Total 900 ml Laboratory Tests Test 09/14/17 22:25 09/14/17 22:54 09/15/17 01:45 09/15/17 08:45 White Blood Count 7.1 K/UL (4.8-10.8) 6.5 K/UL (4.8-10.8) Red Blood Count 3.64 M/UL (4.20-5.40) L 3.14 M/UL (4.20-5.40) L Hemoglobin 9.1 G/DL (12.0-16.0) L 8.2 G/DL (12.0-16.0) L Hematocrit 30.6 % (37.0-47.0) L 26.5 % (37.0-47.0) L Mean Corpuscular Volume 84 FL (80-99) 84 FL (80-99) Mean Corpuscular Hemoglobin 24.9 PG (27.0-31.0) L 26.2 PG (27.0-31.0) L Mean Corpuscular Hemoglobin Concent 29.7 G/DL (32.0-36.0) L 31.0 G/DL (32.0-36.0) L Red Cell Distribution Width 13.1 % (11.6-14.8) 13.6 % (11.6-14.8) Platelet Count 278 K/UL (150-450) 259 K/UL (150-450) Mean Platelet Volume 5.3 FL (6.5-10.1) L 6.0 FL (6.5-10.1) L Neutrophils (%) (Auto) 69.8 % (45.0-75.0) 70.6 % (45.0-75.0) Lymphocytes (%) (Auto) 19.6 % (20.0-45.0) L 18.4 % (20.0-45.0) L Monocytes (%) (Auto) 8.9 % (1.0-10.0) 9.4 % (1.0-10.0) Eosinophils (%) (Auto) 1.0 % (0.0-3.0) 0.9 % (0.0-3.0) Basophils (%) (Auto) 0.7 % (0.0-2.0) 0.7 % (0.0-2.0) Sodium Level 134 MMOL/L (136-145) L 134 MMOL/L (136-145) L 138 MMOL/L (136-145) Potassium Level 5.8 MMOL/L (3.5-5.1) H 5.8 MMOL/L (3.5-5.1) H 5.6 MMOL/L (3.5-5.1) H Chloride Level 103 MMOL/L (98-107) 104 MMOL/L (98-107) 109 MMOL/L (98-107) H Carbon Dioxide Level 21 MMOL/L (21-32) 20 MMOL/L (21-32) L 18 MMOL/L (21-32) L Anion Gap 10 mmol/L (5-15) 10 mmol/L (5-15) 11 mmol/L (5-15) Blood Urea Nitrogen 69 mg/dL (7-18) H 65 mg/dL (7-18) H 59 mg/dL (7-18) H Creatinine 2.5 MG/DL (0.55-1.30) H 2.5 MG/DL (0.55-1.30) H 2.3 MG/DL (0.55-1.30) H Estimat Glomerular Filtration Rate mL/min (>60) mL/min (>60) mL/min (>60) Glucose Level 88 MG/DL (74-106) 152 MG/DL (74-106) H 151 MG/DL (74-106) H Calcium Level 8.1 MG/DL (8.5-10.1) L 7.6 MG/DL (8.5-10.1) L 7.2 MG/DL (8.5-10.1) L Urine Color Pale yellow Urine Appearance Clear Urine pH 5 (4.5-8.0) Urine Specific [place] 1.010 (1.005-1.035) Urine Protein Negative (NEGATIVE) Urine Glucose (UA) Negative (NEGATIVE) Urine Ketones Negative (NEGATIVE) Urine Occult Blood Negative (NEGATIVE) Urine Nitrite Negative (NEGATIVE) Urine Bilirubin Negative (NEGATIVE) Urine Urobilinogen Normal MG/DL (0.0-1.0) Urine Leukocyte Esterase Negative (NEGATIVE) Urine RBC 0-2 /HPF (0 - 2) Urine WBC 0 /HPF (0 - 2) Urine Squamous Epithelial Cells Few /LPF (NONE/OCC) Urine Bacteria None /HPF (NONE) Hemoglobin A1c 7.5 % (4.3-6.0) H Uric Acid 5.3 MG/DL (2.6-7.2) Phosphorus Level 4.9 MG/DL (2.5-4.9) Magnesium Level 1.9 MG/DL (1.8-2.4) Iron Level 32 ug/dL (50-175) L Total Iron Binding Capacity 248 ug/dL (250-450) L Percent Iron Saturation 13 % (15-50) L Unsaturated Iron Binding 216 ug/dL (112-346) Ferritin 51 NG/ML (8-388) Total Bilirubin 0.2 MG/DL (0.2-1.0) Aspartate Amino Transf (AST/SGOT) 13 U/L (15-37) L Alanine Aminotransferase (ALT/SGPT) 17 U/L (12-78) Alkaline Phosphatase 87 U/L (46-116) Total Protein 6.3 G/DL (6.4-8.2) L Albumin 2.8 G/DL (3.4-5.0) L Globulin 3.5 g/dL Albumin/Globulin Ratio 0.8 (1.0-2.7) L Triglycerides Level 91 MG/DL (30-150) Cholesterol Level 120 MG/DL (< 200) LDL Cholesterol 40 mg/dL (<100) HDL Cholesterol 68 MG/DL (40-60) H Cholesterol/HDL Ratio 1.8 (3.3-4.4) L Vitamin B12 Level 266 PG/ML (193-986) Folate 16.9 NG/ML (8.6-58.9) Thyroid Stimulating Hormone (TSH) 5.144 uiU/mL (0.358-3.740) Test 09/15/17 13:00 Urine Random Sodium 53 MEQ/L (20-110) Height (Feet): 5 Height (Inches): 4.00 Weight (Pounds): 120 Medications Current Medications Medications (Trade) Dose Ordered Sig/Aaron Route PRN Reason Start Time Stop Time Status Last Admin Dose Admin Acetaminophen (Tylenol) 650 mg Q4H PRN ORAL fever 09/14/17 23:45 10/14/17 23:44 Albuterol/ Ipratropium (Albuterol/ Ipratropium) 3 ml Q6H PRN HHN dyspnea 09/14/17 23:45 09/19/17 23:44 Clonidine HCl (Catapres) 0.1 mg Q4H PRN ORAL For High Blood Pressure 09/14/17 23:45 10/14/17 23:44 Dextrose (Dextrose 50%) STAT PRN IV Hypoglycemia 09/14/17 23:45 10/14/17 23:44 Haloperidol Lactate (Haldol) 5 mg Q6H PRN IM AGITATION 09/15/17 16:30 10/15/17 16:29 Heparin Sodium (Porcine) (Heparin 5000 units/ml) 5,000 units EVERY 12 HOURS SUBQ 09/15/17 09:00 10/15/17 08:59 09/15/17 09:40 Insulin Aspart (NovoLOG) BEFORE MEALS AND HS SUBQ 09/15/17 06:30 10/15/17 06:29 09/15/17 17:15 Morphine Sulfate (Morphine Sulfate) 1 mg Q4H PRN IVP For Pain 09/14/17 23:45 09/21/17 23:44 09/15/17 14:26 Olanzapine (ZyPREXA) 5 mg BEDTIME ORAL 09/15/17 21:00 10/15/17 20:59 Ondansetron HCl (Zofran) 4 mg Q6H PRN IVP Nausea & Vomiting 09/14/17 23:45 10/14/17 23:44 Polyethylene Glycol (Miralax) 17 gm HSPRN PRN ORAL Constipation 09/14/17 23:45 10/14/17 23:44 Sodium Polystyrene Sulfonate (Kayexalate) 45 gm DAILY ORAL 09/15/17 09:00 09/18/17 08:59 Sodium Chloride 1,000 ml @ 75 mls/hr [id number] IV 09/15/17 13:00 10/15/17 12:59 09/15/17 14:24 Zolpidem Tartrate (Ambien) 5 mg HSPRN PRN ORAL Insomnia 09/14/17 23:45 09/21/17 23:44 Assessment/Plan Problem List: (1) Encephalopathy acute ICD Codes: G93.40 - Encephalopathy, unspecified SNOMED: 4106106 (2) HTN (hypertension) ICD Codes: I10 - Essential (primary) hypertension SNOMED: 17608765 (3) ATN (acute tubular necrosis) ICD Codes: N17.0 - Acute kidney failure with tubular necrosis SNOMED: 08370074 (4) Hip fracture ICD Codes: S72.009A - Fracture of unspecified part of neck of unspecified femur , initial encounter for closed fracture SNOMED: 416066765 (5) Dementia ICD Codes: F03.90 - Unspecified dementia without behavioral disturbance SNOMED: 08415503 (6) Diabetes mellitus ICD Codes: E11.9 - Type 2 diabetes mellitus without complications SNOMED: 36968918 (7) Acute hyperkalemia ICD Codes: E87.5 - Hyperkalemia SNOMED: 3765264 Status: stable, progressing Assessment/Plan Kayexelate potassium binding Renal consultation Electrolyte replacement Tight BP and BG control Pain management Right lower extremity stabilization YAQUELIN CORRAL Sep 15, 2017 20:31
[2017-09-16 03:09] VITALS: BP 114/59
[2017-09-16] MEDS: NovoLOG Insulin Flexpen SUBQ SCH ×4 (05:59→20:59)
[2017-09-16 07:26] LABS: BASOPHILS % (AUTO) 0.9 % (0.0-2.0); EOSINOPHILS % (AUTO) 1.6 % (0.0-3.0); HEMATOCRIT 26.2 % (37.0-47.0); MEAN CORPUSCULAR VOLUME 85 FL (80-99); MONOCYTES % (AUTO) 9.3 % (1.0-10.0); NEUTROPHILS % (AUTO) 67.3 % (45.0-75.0); PLATELET COUNT 233 K/UL (150-450); RED CELL DISTRIBUTION WIDTH 13.3 % (11.6-14.8); WHITE BLOOD COUNT 5.5 K/UL (4.8-10.8)
[2017-09-16 07:53] LABS: ALANINE AMINOTRANSFERASE 14 U/L (12-78); ALBUMIN 2.6 G/DL (3.4-5.0); ALKALINE PHOSPHATASE 82 U/L (46-116); ANION GAP 11 mmol/L (5-15); ASPARTATE AMINO TRANSFERASE 13 U/L (15-37); BILIRUBIN,TOTAL 0.3 MG/DL (0.2-1.0); BLOOD UREA NITROGEN 45 mg/dL (7-18); CARBON DIOXIDE 18 MMOL/L (21-32); CHLORIDE 113 MMOL/L (98-107); POTASSIUM 4.9 MMOL/L (3.5-5.1); SODIUM 141 MMOL/L (136-145)
[2017-09-16 08:00] VITALS: BP 122/66
--- NOTE | 2017-09-16 09:04 | Nephrology Progress Note ---
Assessment/Plan Problem List: (1) Encephalopathy acute (2) ATN (acute tubular necrosis) (3) Dementia (4) ARF (acute renal failure) (5) Anemia Assessment Acute renal failure ? CKD DM Anemia Plan Plan: IV Iron Slow Hydrate Anemia patricio Urine studies monitor renal parameters urine for Eos and Na 2D echo : Left ventricular ejection fraction estimated to be 45-50 %. Mild left ventricular hypertrophy by 2-D. Subjective ROS Limited/Unobtainable: No Constitutional: Reports: malaise Objective Objective Last 24 Hour Vital Signs Date Time Temp Pulse Resp B/P (MAP) Pulse Ox O2 Delivery O2 Flow Rate FiO2 09/16/17 08:00 95.5 66 20 122/66 100 09/16/17 07:09 65 18 Room Air 21 09/16/17 03:09 96.4 66 20 114/59 100 Room Air 09/15/17 23:26 97.5 72 20 93/59 99 Room Air 09/15/17 19:13 97.3 71 20 102/58 98 Room Air 09/15/17 19:00 71 20 Room Air 21 09/15/17 15:47 Room Air 09/15/17 15:46 97.8 68 21 124/70 97 09/15/17 14:21 62 20 Room Air 21 09/15/17 11:46 Room Air 09/15/17 11:45 97.9 62 20 96/52 99 Intake and Output 09/15/17 09/16/17 19:00 07:00 Intake Total 780 ml 900 ml Output Total 900 ml 800 ml Balance -120 ml 100 ml Intake Oral 480 ml IV Total 300 ml 900 ml Output Urine Total 900 ml 800 ml # Bowel Movements 3 3 Laboratory Tests 09/15/17 13:00: Urine Random Sodium 53 09/16/17 03:30: Stool Occult Blood [Pending] 09/16/17 04:40: White Blood Count 5.5, Red Blood Count 3.10L, Hemoglobin 8.0L, Hematocrit 26.2L , Mean Corpuscular Volume 85, Mean Corpuscular Hemoglobin 25.9L, Mean Corpuscular Hemoglobin Concent 30.7L, Red Cell Distribution Width 13.3, Platelet Count 233, Mean Platelet Volume 6.1L, Neutrophils (%) (Auto) 67.3, Lymphocytes (%) (Auto) 21.0, Monocytes (%) (Auto) 9.3, Eosinophils (%) (Auto) 1.6, Basophils (%) (Auto) 0.9, Erythrocyte Sedimentation Rate 48H, Reticulocyte Count [Pending], Prothrombin Time 10.0, Prothromb Time International Ratio 1.0, Activated Partial Thromboplast Time 28, Sodium Level 141, Potassium Level 4.9, Chloride Level 113H, Carbon Dioxide Level 18L, Anion Gap 11, Blood Urea Nitrogen 45H, Creatinine 2.0H, Estimat Glomerular Filtration Rate , Glucose Level 124H, Uric Acid 5.1, Calcium Level 8.0L, Phosphorus Level 5.0H, Magnesium Level 1.5L, Total Bilirubin 0.3, Aspartate Amino Transf (AST/SGOT) 13L, Alanine Aminotransferase (ALT/SGPT) 14, Alkaline Phosphatase 82, Lactate Dehydrogenase 169, C-Reactive Protein, Quantitative < 0.4, Pro-B-Type Natriuretic Peptide 340H , Total Protein 5.8L, Albumin 2.6L, Globulin 3.2 Height (Feet): 5 Height (Inches): 4.00 Weight (Pounds): 120 General Appearance: no apparent distress Respiratory/Chest: decreased breath sounds Abdomen: soft Objective no signs of chf CYNDY MATHEWS Sep 16, 2017 09:04
--- NOTE | 2017-09-16 09:43 | Consultation ---
DATE OF CONSULTATION: 09/14/2017 HISTORY OF PRESENT ILLNESS: This is a 76-year-old female with a history of diabetes mellitus, dementia, femoral fracture, who has been admitted to the hospital due to altered mental status and the patient was found to have renal failure and hyperkalemia. During the evaluation, the patient became agitated, not able to follow redirection, poor historian, not engaged, and is easily agitated. PAST PSYCHIATRIC HISTORY: She has a history of dementia and agitation. PAST MEDICAL HISTORY: As above. ALLERGIES: No known drug allergies. SUBSTANCE ABUSE HISTORY: No history of illicit drug use or alcohol. MENTAL STATUS EXAMINATION: The patient to have a recovery consciousness. Mood is agitated. Affect is flat. Thought process is congruent with mood. Thought process is concrete. Thought content, no suicidal or homicidal ideation. ASSESSMENT: 1. Encephalopathy. 2. Dementia. PLAN: 1. We will start the patient on Zyprexa and then Haldol IM. 2. We will continue to follow and readjust the medications. Rema Banks M.D. DR: Jean Marie JOB#: [id number] CC:
[2017-09-16] MEDS: Sodium Polystyrene Sulfonate 15gm Powder ORAL SCH (09:50)
[2017-09-16] MEDS: Heparin 5000 units/ml inj SUBQ SCH ×2 (09:51→20:57)
[2017-09-16 11:55] VITALS: BP 129/57
[2017-09-16] MEDS ORDERED: Iron Sucrose 200 MG in NS 110 ML IV ONE (12:00)
--- NOTE | 2017-09-16 12:30 | Diagnostic Imaging Report ---
Indication: Cough Technique: XRAY Chest 1v Comparison: 12/21/2016 Findings: Heart size and mediastinal contours are stable. There is bilateral interstitial opacification/edema and patchy perihilar and left basilar airspace opacities. No large pleural effusion. No pneumothorax. There is inferior and medial displacement of the right humeral head raising question for shoulder dislocation. Impression: Interstitial opacification/edema and patchy bilateral airspace opacities. These findings may related to CHF/pulmonary edema with superimposed pneumonia not entirely excluded. Clinical correlation and follow-up exam recommended. Questionable right shoulder dislocation. Dedicated right shoulder radiographs recommended for further evaluation.
[2017-09-16 16:00] VITALS: BP 130/73
--- NOTE | 2017-09-16 16:50 | Pulmonology Progress Note ---
Assessment/Plan Problems: (1) Encephalopathy acute (2) HTN (hypertension) (3) ATN (acute tubular necrosis) (4) Hip fracture (5) Dementia (6) Diabetes mellitus (7) Acute hyperkalemia Assessment/Plan check electrolytes renal studies pending sliding scale all noted dvt prophylaxis. Subjective ROS Limited/Unobtainable: No Constitutional: Reports: no symptoms HEENT: Repors: no symptoms Respiratory: Reports: no symptoms Cardiovascular: Reports: no symptoms Allergies: Coded Allergies: No Known Allergies (Verified , 12/31/09) Objective Last 24 Hour Vital Signs Date Time Temp Pulse Resp B/P (MAP) Pulse Ox O2 Delivery O2 Flow Rate FiO2 09/16/17 16:00 96.6 72 18 130/73 98 09/16/17 11:55 97.0 70 20 129/57 100 09/16/17 08:00 95.5 66 20 122/66 100 09/16/17 07:09 65 18 Room Air 21 09/16/17 03:09 96.4 66 20 114/59 100 Room Air 09/15/17 23:26 97.5 72 20 93/59 99 Room Air 09/15/17 19:13 97.3 71 20 102/58 98 Room Air 09/15/17 19:00 71 20 Room Air 21 Intake and Output 09/15/17 09/16/17 19:00 07:00 Intake Total 780 ml 900 ml Output Total 900 ml 800 ml Balance -120 ml 100 ml Intake Oral 480 ml IV Total 300 ml 900 ml Output Urine Total 900 ml 800 ml # Bowel Movements 3 3 General Appearance: WD/WN HEENT: normocephalic Respiratory/Chest: chest wall non-tender, lungs clear, normal breath sounds Breasts: no masses Cardiovascular: normal peripheral pulses Genitourinary: normal external genitalia Extremities: no cyanosis Skin: no rash Laboratory Tests 09/16/17 04:00: Urine Eosinophils None seen 09/16/17 04:40: White Blood Count 5.5, Red Blood Count 3.10L, Hemoglobin 8.0L, Hematocrit 26.2L , Mean Corpuscular Volume 85, Mean Corpuscular Hemoglobin 25.9L, Mean Corpuscular Hemoglobin Concent 30.7L, Red Cell Distribution Width 13.3, Platelet Count 233, Mean Platelet Volume 6.1L, Neutrophils (%) (Auto) 67.3, Lymphocytes (%) (Auto) 21.0, Monocytes (%) (Auto) 9.3, Eosinophils (%) (Auto) 1.6, Basophils (%) (Auto) 0.9, Differential Total Cells Counted 100, Neutrophils % (Manual) 73, Lymphocytes % (Manual) 19L, Monocytes % (Manual) 7, Eosinophils % (Manual) 0, Basophils % (Manual) 1, Band Neutrophils 0, Other Cell Type Pathologist comment, Platelet Estimate Adequate, Platelet Morphology Normal, Poikilocytosis 1+, Anisocytosis 1+, [place] Cells 1+, Schistocytes 1+, Erythrocyte Sedimentation Rate 48H, Reticulocyte Count 1.1, Prothrombin Time 10.0, Prothromb Time International Ratio 1.0, Activated Partial Thromboplast Time 28, Sodium Level 141, Potassium Level 4.9, Chloride Level 113H, Carbon Dioxide Level 18L, Anion Gap 11, Blood Urea Nitrogen 45H, Creatinine 2.0H, Estimat Glomerular Filtration Rate , Glucose Level 124H, Uric Acid 5.1, Calcium Level 8.0L, Phosphorus Level 5.0H, Magnesium Level 1.5L, Total Bilirubin 0.3, Aspartate Amino Transf (AST/SGOT) 13L, Alanine Aminotransferase (ALT/SGPT) 14, Alkaline Phosphatase 82, Lactate Dehydrogenase 169, C-Reactive Protein, Quantitative < 0.4, Pro-B-Type Natriuretic Peptide 340H, Total Protein 5.8L, Albumin 2.6L, Globulin 3.2 09/16/17 14:50: Stool Occult Blood [Pending] Current Medications Medications (Trade) Dose Ordered Sig/Aaron Route PRN Reason Start Time Stop Time Status Last Admin Dose Admin Acetaminophen (Tylenol) 650 mg Q4H PRN ORAL fever 09/14/17 23:45 10/14/17 23:44 Albuterol/ Ipratropium (Albuterol/ Ipratropium) 3 ml Q6H PRN HHN dyspnea 09/14/17 23:45 09/19/17 23:44 Clonidine HCl (Catapres) 0.1 mg Q4H PRN ORAL For High Blood Pressure 09/14/17 23:45 10/14/17 23:44 Dextrose (Dextrose 50%) STAT PRN IV Hypoglycemia 09/14/17 23:45 10/14/17 23:44 Haloperidol Lactate (Haldol) 5 mg Q6H PRN IM AGITATION 09/15/17 16:30 10/15/17 16:29 Heparin Sodium (Porcine) (Heparin 5000 units/ml) 5,000 units EVERY 12 HOURS SUBQ 09/15/17 09:00 10/15/17 08:59 09/16/17 09:51 Insulin Aspart (NovoLOG) BEFORE MEALS AND HS SUBQ 09/15/17 06:30 10/15/17 06:29 09/16/17 11:51 Iron Sucrose 100 mg/Sodium Chloride 60 ml @ 240 mls/hr BEDTIME IV 09/17/17 21:00 09/21/17 21:14 Morphine Sulfate (Morphine Sulfate) 1 mg Q4H PRN IVP For Pain 09/14/17 23:45 09/21/17 23:44 09/15/17 21:32 Olanzapine (ZyPREXA) 5 mg BEDTIME ORAL 09/15/17 21:00 10/15/17 20:59 09/15/17 20:24 Ondansetron HCl (Zofran) 4 mg Q6H PRN IVP Nausea & Vomiting 09/14/17 23:45 10/14/17 23:44 Polyethylene Glycol (Miralax) 17 gm HSPRN PRN ORAL Constipation 09/14/17 23:45 10/14/17 23:44 Sodium Polystyrene Sulfonate (Kayexalate) 45 gm DAILY ORAL 09/15/17 09:00 09/18/17 08:59 09/16/17 09:50 Sodium Chloride 1,000 ml @ 75 mls/hr [id number] IV 09/16/17 09:30 10/16/17 09:29 09/16/17 10:06 Zolpidem Tartrate (Ambien) 5 mg HSPRN PRN ORAL Insomnia 09/14/17 23:45 09/21/17 23:44 09/15/17 21:21 YAQUELIN CORRAL Sep 16, 2017 16:50
--- NOTE | 2017-09-16 17:08 | Diagnostic Imaging Report ---
Indication: Renal failure Technique: US Renal multiplanar grayscale and color Doppler imaging of the kidneys and bladder Comparison: 01/02/2010 Findings: The right kidney measures 9.3 cm in length. The left kidney measures 8.9 cm in length. Both kidneys demonstrate normal parenchymal thickness and echogenicity. Color flow to both kidneys noted and normal in appearance. A 9 mm simple renal cyst is noted within the upper pole the right kidney. There is no definite renal stone bilaterally. No evidence of hydronephrosis bilaterally. Bladder is decompressed by a Barron catheter. Imaged portions of the liver and IVC unremarkable in appearance. Impression: Kidneys demonstrate normal parenchymal thickness and echogenicity. No hydronephrosis bilaterally. No definite renal stones seen. Barron catheter decompresses the bladder, limiting its evaluation.
[2017-09-16] MEDS: Haloperidol 5mg/ml Inj IM PRN (18:53)
[2017-09-16 20:00] VITALS: BP 141/86
[2017-09-17] VITALS: BP 135/67
[2017-09-17 04:10] VITALS: BP 124/62
[2017-09-17] MEDS: NovoLOG Insulin Flexpen SUBQ SCH ×4 (05:49→21:10)
[2017-09-17 07:47] LABS: BASOPHILS % (AUTO) 0.9 % (0.0-2.0); EOSINOPHILS % (AUTO) 1.8 % (0.0-3.0); HEMATOCRIT 27.9 % (37.0-47.0); HEMOGLOBIN 8.7 G/DL (12.0-16.0); LYMPHOCYTES % (AUTO) 16.3 % (20.0-45.0); MEAN CORPUSCULAR VOLUME 85 FL (80-99); NEUTROPHILS % (AUTO) 70.1 % (45.0-75.0); PLATELET COUNT 266 K/UL (150-450); RED BLOOD COUNT 3.28 M/UL (4.20-5.40); RED CELL DISTRIBUTION WIDTH 13.7 % (11.6-14.8); WHITE BLOOD COUNT 7.2 K/UL (4.8-10.8)
[2017-09-17 08:34] LABS: ALANINE AMINOTRANSFERASE 23 U/L (12-78); ALBUMIN 2.8 G/DL (3.4-5.0); ALBUMIN/GLOBULIN RATIO 0.8 (1.0-2.7); ALKALINE PHOSPHATASE 99 U/L (46-116); ANION GAP 12 mmol/L (5-15); ASPARTATE AMINO TRANSFERASE 23 U/L (15-37); BILIRUBIN,TOTAL 0.3 MG/DL (0.2-1.0); BLOOD UREA NITROGEN 35 mg/dL (7-18); CALCIUM 8.2 MG/DL (8.5-10.1); CARBON DIOXIDE 20 MMOL/L (21-32); CHLORIDE 113 MMOL/L (98-107); CREATININE 2.1 MG/DL (0.55-1.30); PHOSPHORUS 5.5 MG/DL (2.5-4.9); POTASSIUM 4.4 MMOL/L (3.5-5.1); SODIUM 145 MMOL/L (136-145)
[2017-09-17] MEDS: Heparin 5000 units/ml inj SUBQ SCH ×2 (09:01→21:09)
[2017-09-17] MEDS: Sodium Polystyrene Sulfonate 15gm Powder ORAL SCH (11:02)
--- NOTE | 2017-09-17 11:24 | Nephrology Progress Note ---
Assessment/Plan Problem List: (1) Encephalopathy acute (2) ATN (acute tubular necrosis) (3) Dementia (4) ARF (acute renal failure) (5) Anemia Assessment Acute renal failure Cr 2.1 ? CKD DM Anemia Plan Plan: IV Iron Slow Hydrate Anemia patricio Urine studies monitor renal parameters urine for Eos and Na 2D echo : Left ventricular ejection fraction estimated to be 45-50 %. Mild left ventricular hypertrophy by 2-D. Subjective ROS Limited/Unobtainable: No Constitutional: Reports: malaise, weakness Objective Objective Last 24 Hour Vital Signs Date Time Temp Pulse Resp B/P (MAP) Pulse Ox O2 Delivery O2 Flow Rate FiO2 09/17/17 07:34 79 18 Room Air 21 09/17/17 04:10 97.0 81 18 124/62 98 09/17/17 04:00 98 Room Air 09/17/17 00:00 97.3 84 20 135/67 98 Room Air 09/16/17 20:45 84 18 Room Air 21 09/16/17 20:00 97.3 103 20 141/86 98 Room Air 09/16/17 20:00 98 Room Air 09/16/17 16:00 96.6 72 18 130/73 98 09/16/17 11:55 97.0 70 20 129/57 100 Intake and Output 09/16/17 09/17/17 19:00 07:00 Intake Total 1035 ml 300 ml Output Total 750 ml 1200 ml Balance 285 ml -900 ml Intake Oral 240 ml IV Total 795 ml 300 ml Output Urine Total 750 ml 1200 ml # Bowel Movements 1 1 Laboratory Tests 09/16/17 14:50: Stool Occult Blood Negative 09/17/17 05:25: White Blood Count 7.2, Red Blood Count 3.28L, Hemoglobin 8.7L, Hematocrit 27.9L , Mean Corpuscular Volume 85, Mean Corpuscular Hemoglobin 26.4L, Mean Corpuscular Hemoglobin Concent 31.1L, Red Cell Distribution Width 13.7, Platelet Count 266, Mean Platelet Volume 6.2L, Neutrophils (%) (Auto) 70.1, Lymphocytes (%) (Auto) 16.3L, Monocytes (%) (Auto) 11.0H, Eosinophils (%) (Auto ) 1.8, Basophils (%) (Auto) 0.9, Erythrocyte Sedimentation Rate [Pending], Sodium Level 145, Potassium Level 4.4, Chloride Level 113H, Carbon Dioxide Level 20L, Anion Gap 12, Blood Urea Nitrogen 35H, Creatinine 2.1H, Estimat Glomerular Filtration Rate , Glucose Level 95, Calcium Level 8.2L, Phosphorus Level 5.5H, Magnesium Level 1.6L, Total Bilirubin 0.3, Aspartate Amino Transf ( AST/SGOT) 23, Alanine Aminotransferase (ALT/SGPT) 23, Alkaline Phosphatase 99, C -Reactive Protein, Quantitative < 0.4, Total Protein 6.5, Albumin 2.8L, Globulin 3.7, Albumin/Globulin Ratio 0.8L Height (Feet): 5 Height (Inches): 4.00 Weight (Pounds): 120 Objective no signs of chf CYNDY MATHEWS Sep 17, 2017 11:24
[2017-09-17] MEDS: Haloperidol 5mg/ml Inj IM PRN (15:26)
[2017-09-17 16:00] VITALS: BP 114/78
[2017-09-17] MEDS ORDERED: LORazepam Inj 2mg/ml 1ml IM PRN (17:00)
--- NOTE | 2017-09-17 18:52 | Pulmonology Progress Note ---
Assessment/Plan Problems: (1) Encephalopathy acute (2) HTN (hypertension) (3) ATN (acute tubular necrosis) (4) Hip fracture (5) Dementia (6) Diabetes mellitus (7) Acute hyperkalemia Assessment/Plan check electrolytes renal studies pending sliding scale all noted dvt prophylaxis. acute on chronic renal failure, anemia with negative OB, most likely secondary to renal disease. Subjective ROS Limited/Unobtainable: No Constitutional: Reports: no symptoms HEENT: Repors: no symptoms Respiratory: Reports: no symptoms Allergies: Coded Allergies: No Known Allergies (Verified , 12/31/09) Objective Last 24 Hour Vital Signs Date Time Temp Pulse Resp B/P (MAP) Pulse Ox O2 Delivery O2 Flow Rate FiO2 09/17/17 16:00 81 114/78 09/17/17 07:34 79 18 Room Air 21 09/17/17 04:10 97.0 81 18 124/62 98 09/17/17 04:00 98 Room Air 09/17/17 00:00 97.3 84 20 135/67 98 Room Air 09/16/17 20:45 84 18 Room Air 21 09/16/17 20:00 97.3 103 20 141/86 98 Room Air 09/16/17 20:00 98 Room Air Intake and Output 09/16/17 09/17/17 19:00 07:00 Intake Total 1035 ml 375 ml Output Total 750 ml 1200 ml Balance 285 ml -825 ml Intake Oral 240 ml IV Total 795 ml 375 ml Output Urine Total 750 ml 1200 ml # Bowel Movements 1 1 General Appearance: WD/WN HEENT: normocephalic, atraumatic Respiratory/Chest: chest wall non-tender, lungs clear Breasts: no masses Cardiovascular: normal peripheral pulses Abdomen: normal bowel sounds, no organomegaly Genitourinary: normal external genitalia Skin: no rash Neurologic/Psychiatric: space scheduler II-XII grossly normal, no motor/sensory deficits Microbiology Date/Time Source Procedure Growth Status 09/15/17 05:50 Rectum VRE Culture - Final Enterococcus Faecalis - Vre Complete Laboratory Tests 09/17/17 05:25: White Blood Count 7.2, Red Blood Count 3.28L, Hemoglobin 8.7L, Hematocrit 27.9L , Mean Corpuscular Volume 85, Mean Corpuscular Hemoglobin 26.4L, Mean Corpuscular Hemoglobin Concent 31.1L, Red Cell Distribution Width 13.7, Platelet Count 266, Mean Platelet Volume 6.2L, Neutrophils (%) (Auto) 70.1, Lymphocytes (%) (Auto) 16.3L, Monocytes (%) (Auto) 11.0H, Eosinophils (%) (Auto ) 1.8, Basophils (%) (Auto) 0.9, Erythrocyte Sedimentation Rate 66H, Sodium Level 145, Potassium Level 4.4, Chloride Level 113H, Carbon Dioxide Level 20L, Anion Gap 12, Blood Urea Nitrogen 35H, Creatinine 2.1H, Estimat Glomerular Filtration Rate , Glucose Level 95, Calcium Level 8.2L, Phosphorus Level 5.5H, Magnesium Level 1.6L, Total Bilirubin 0.3, Aspartate Amino Transf (AST/SGOT) 23 , Alanine Aminotransferase (ALT/SGPT) 23, Alkaline Phosphatase 99, C-Reactive Protein, Quantitative < 0.4, Total Protein 6.5, Albumin 2.8L, Globulin 3.7, Albumin/Globulin Ratio 0.8L Current Medications Medications (Trade) Dose Ordered Sig/Aaron Route PRN Reason Start Time Stop Time Status Last Admin Dose Admin Acetaminophen (Tylenol) 650 mg Q4H PRN ORAL fever 09/14/17 23:45 10/14/17 23:44 Albuterol/ Ipratropium (Albuterol/ Ipratropium) 3 ml Q6H PRN HHN dyspnea 09/14/17 23:45 09/19/17 23:44 Clonidine HCl (Catapres) 0.1 mg Q4H PRN ORAL For High Blood Pressure 09/14/17 23:45 10/14/17 23:44 Dextrose (Dextrose 50%) STAT PRN IV Hypoglycemia 09/14/17 23:45 10/14/17 23:44 Epoetin Kelechi (Procrit (for non ESRD use)) 10,000 units MON-WED-FRI SUBQ 09/18/17 21:00 10/18/17 20:59 Haloperidol Lactate (Haldol) 5 mg Q6H PRN IM AGITATION 09/15/17 16:30 10/15/17 16:29 09/17/17 15:26 Heparin Sodium (Porcine) (Heparin 5000 units/ml) 5,000 units EVERY 12 HOURS SUBQ 09/15/17 09:00 10/15/17 08:59 09/17/17 09:01 Insulin Aspart (NovoLOG) BEFORE MEALS AND HS SUBQ 09/15/17 06:30 10/15/17 06:29 09/17/17 12:04 Iron Sucrose 100 mg/Sodium Chloride 60 ml @ 240 mls/hr BEDTIME IV 09/17/17 21:00 09/21/17 21:14 Lorazepam (Ativan 2mg/ml 1ml) 1 mg Q4H PRN IM For Anxiety 09/17/17 17:00 09/24/17 16:59 09/17/17 17:43 Morphine Sulfate (Morphine Sulfate) 1 mg Q4H PRN IVP For Pain 09/14/17 23:45 09/21/17 23:44 09/15/17 21:32 Olanzapine (ZyPREXA) 5 mg BEDTIME ORAL 09/15/17 21:00 10/15/17 20:59 09/16/17 20:57 Ondansetron HCl (Zofran) 4 mg Q6H PRN IVP Nausea & Vomiting 09/14/17 23:45 10/14/17 23:44 Polyethylene Glycol (Miralax) 17 gm HSPRN PRN ORAL Constipation 09/14/17 23:45 10/14/17 23:44 Sodium Polystyrene Sulfonate (Kayexalate) 45 gm DAILY ORAL 09/15/17 09:00 09/18/17 08:59 09/17/17 11:02 Sodium Chloride 1,000 ml @ 75 mls/hr [id number] IV 09/16/17 09:30 10/16/17 09:29 09/17/17 13:10 Zolpidem Tartrate (Ambien) 5 mg HSPRN PRN ORAL Insomnia 09/14/17 23:45 09/21/17 23:44 09/15/17 21:21 YAQUELIN CORRAL Sep 17, 2017 18:52
[2017-09-17 20:00] VITALS: BP 140/83
[2017-09-17] MEDS: Iron Sucrose 100 MG in NS 55 ML IV SCH (21:19)
[2017-09-18] VITALS: BP 111/59
[2017-09-18 04:00] VITALS: BP 131/67
[2017-09-18] MEDS: NovoLOG Insulin Flexpen SUBQ SCH ×4 (06:34→20:37)
[2017-09-18 07:48] LABS: BASOPHILS % (AUTO) 0.5 % (0.0-2.0); EOSINOPHILS % (AUTO) 1.6 % (0.0-3.0); HEMOGLOBIN 8.5 G/DL (12.0-16.0); LYMPHOCYTES % (AUTO) 12.8 % (20.0-45.0); MEAN CORPUSCULAR VOLUME 84 FL (80-99); MONOCYTES % (AUTO) 10.5 % (1.0-10.0); NEUTROPHILS % (AUTO) 74.6 % (45.0-75.0); PLATELET COUNT 242 K/UL (150-450); RED BLOOD COUNT 3.09 M/UL (4.20-5.40); RED CELL DISTRIBUTION WIDTH 13.7 % (11.6-14.8); WHITE BLOOD COUNT 8.2 K/UL (4.8-10.8)
[2017-09-18 07:51] LABS: ALANINE AMINOTRANSFERASE 21 U/L (12-78); ALBUMIN 2.5 G/DL (3.4-5.0); ALBUMIN/GLOBULIN RATIO 0.7 (1.0-2.7); ALKALINE PHOSPHATASE 96 U/L (46-116); ANION GAP 12 mmol/L (5-15); ASPARTATE AMINO TRANSFERASE 22 U/L (15-37); BILIRUBIN,TOTAL 0.3 MG/DL (0.2-1.0); BLOOD UREA NITROGEN 29 mg/dL (7-18); CALCIUM 8.1 MG/DL (8.5-10.1); CARBON DIOXIDE 21 MMOL/L (21-32); CHLORIDE 112 MMOL/L (98-107); PHOSPHORUS 5.4 MG/DL (2.5-4.9); POTASSIUM 3.5 MMOL/L (3.5-5.1); SODIUM 145 MMOL/L (136-145)
[2017-09-18 08:00] VITALS: BP 127/70
[2017-09-18] MEDS: Haloperidol 5mg/ml Inj IM PRN (08:23)
[2017-09-18] MEDS: Heparin 5000 units/ml inj SUBQ SCH ×2 (08:24→20:37)
[2017-09-18 12:00] VITALS: BP 130/70
--- NOTE | 2017-09-18 14:53 | Wound Nurse Progress Note ---
Wound RN Progress Note Wound Consult #1 Right tip of 1st big toe suspected deep tissue injury #2 Right dorsal aspect of foot scattered dry brown flaky skin. #3 Right lateral malleolus suspected deep tissue injury. #4 Left and right foot anterior toes scattered stage 1 redness, noted contracture/curl to toes #5 Left heel suspected deep tissue injury. #6 Right heel suspected deep tissue injury. #7 Left lateral foot extending to 5th metatarsal head to 5th toe suspected deep tissue injury. #8 Right lateral foot extending to 5th metatarsal head to 5th toe suspected deep tissue injury. #9 Posterior back scattered scar tissues-intact. Reassesses this Pt today skin intact. Noted good progress in all sites. Will cont same treatment and recommendations below Noted toes to bilateral feet with contracted/curled toes,- strict off load to avoid skin breakdown. RECOMMENDATION. -Local wound care as ordered. -Turn and reposition. -Keep clean and dry. -Offload affected sites. -Avoid shear or friction. -Optimize nutrition. -Apply low air loss SPR mattress. -Assess and notify MD for any further changes of condition to skin noted. SONNY FUENTES RN Sep 18, 2017 14:53
--- NOTE | 2017-09-18 15:38 | Nephrology Progress Note ---
Assessment/Plan Problem List: (1) Encephalopathy acute (2) ATN (acute tubular necrosis) (3) Dementia (4) ARF (acute renal failure) (5) Anemia Assessment Acute renal failure Cr 2.1 ? CKD DM Anemia Plan Plan: IV Iron Slow Hydrate Anemia patricio Urine studies monitor renal parameters urine for Eos and Na 2D echo : Left ventricular ejection fraction estimated to be 45-50 %. Mild left ventricular hypertrophy by 2-D. Subjective ROS Limited/Unobtainable: No Constitutional: Reports: malaise Objective Objective Last 24 Hour Vital Signs Date Time Temp Pulse Resp B/P (MAP) Pulse Ox O2 Delivery O2 Flow Rate FiO2 09/18/17 12:00 98.0 81 18 130/70 98 09/18/17 08:00 97.7 83 18 127/70 100 09/18/17 07:23 77 20 Room Air 21 09/18/17 04:00 97.7 81 22 131/67 95 09/18/17 04:00 95 Room Air 09/18/17 00:00 97.7 83 22 111/59 98 09/18/17 00:00 98 Room Air 09/17/17 20:24 74 20 Room Air 21 09/17/17 20:00 96 Room Air 09/17/17 20:00 97.3 97 20 140/83 96 09/17/17 16:00 81 114/78 Intake and Output 09/17/17 09/18/17 19:00 07:00 Intake Total 1155 ml 860 ml Output Total 1250 ml 1600 ml Balance -95 ml -740 ml Intake Oral 480 ml IV Total 675 ml 860 ml Output Urine Total 1250 ml 1600 ml # Bowel Movements 1 Laboratory Tests 09/18/17 06:25: White Blood Count 8.2, Red Blood Count 3.09L, Hemoglobin 8.5L, Hematocrit 26.0L , Mean Corpuscular Volume 84, Mean Corpuscular Hemoglobin 27.4, Mean Corpuscular Hemoglobin Concent 32.6, Red Cell Distribution Width 13.7, Platelet Count 242, Mean Platelet Volume 5.9L, Neutrophils (%) (Auto) 74.6, Lymphocytes ( %) (Auto) 12.8L, Monocytes (%) (Auto) 10.5H, Eosinophils (%) (Auto) 1.6, Basophils (%) (Auto) 0.5, Sodium Level 145, Potassium Level 3.5, Chloride Level 112H, Carbon Dioxide Level 21, Anion Gap 12, Blood Urea Nitrogen 29H, Creatinine 2.0H, Estimat Glomerular Filtration Rate , Glucose Level 109H, Uric Acid 5.0, Calcium Level 8.1L, Phosphorus Level 5.4H, Magnesium Level 1.5L, Total Bilirubin 0.3, Aspartate Amino Transf (AST/SGOT) 22, Alanine Aminotransferase (ALT/SGPT) 21, Alkaline Phosphatase 96, C-Reactive Protein, Quantitative 0.8, Pro-B-Type Natriuretic Peptide 1736H, Total Protein 5.9L, Albumin 2.5L, Globulin 3.4, Albumin/Globulin Ratio 0.7L 09/18/17 06:30: Urine Eosinophils Seen Height (Feet): 5 Height (Inches): 4.00 Weight (Pounds): 120 General Appearance: no apparent distress Objective no signs of chf CYNDY MATHEWS Sep 18, 2017 15:38
[2017-09-18 16:02] VITALS: BP 144/48
--- NOTE | 2017-09-18 17:00 | Pulmonology Progress Note ---
Assessment/Plan Problems: (1) Encephalopathy acute (2) HTN (hypertension) (3) ATN (acute tubular necrosis) (4) Hip fracture (5) Dementia (6) Diabetes mellitus (7) Acute hyperkalemia Assessment/Plan check electrolytes renal studies pending sliding scale all noted dvt prophylaxis. acute on chronic renal failure, anemia with negative OB, most likely secondary to renal disease. improivng dc to snif Subjective ROS Limited/Unobtainable: No Constitutional: Reports: no symptoms HEENT: Repors: no symptoms Respiratory: Reports: no symptoms Allergies: Coded Allergies: No Known Allergies (Verified , 12/31/09) Objective Last 24 Hour Vital Signs Date Time Temp Pulse Resp B/P (MAP) Pulse Ox O2 Delivery O2 Flow Rate FiO2 09/18/17 16:02 98.5 81 18 144/48 95 Room Air 09/18/17 12:00 98.0 81 18 130/70 98 09/18/17 08:00 97.7 83 18 127/70 100 09/18/17 07:23 77 20 Room Air 21 09/18/17 04:00 97.7 81 22 131/67 95 09/18/17 04:00 95 Room Air 09/18/17 00:00 97.7 83 22 111/59 98 09/18/17 00:00 98 Room Air 09/17/17 20:24 74 20 Room Air 21 09/17/17 20:00 96 Room Air 09/17/17 20:00 97.3 97 20 140/83 96 Intake and Output 09/17/17 09/18/17 19:00 07:00 Intake Total 1155 ml 860 ml Output Total 1250 ml 1600 ml Balance -95 ml -740 ml Intake Oral 480 ml IV Total 675 ml 860 ml Output Urine Total 1250 ml 1600 ml # Bowel Movements 1 General Appearance: cachetic HEENT: normocephalic, atraumatic Respiratory/Chest: chest wall non-tender, lungs clear Cardiovascular: normal peripheral pulses, regular rhythm Genitourinary: normal external genitalia Extremities: no cyanosis Laboratory Tests 09/18/17 06:25: White Blood Count 8.2, Red Blood Count 3.09L, Hemoglobin 8.5L, Hematocrit 26.0L , Mean Corpuscular Volume 84, Mean Corpuscular Hemoglobin 27.4, Mean Corpuscular Hemoglobin Concent 32.6, Red Cell Distribution Width 13.7, Platelet Count 242, Mean Platelet Volume 5.9L, Neutrophils (%) (Auto) 74.6, Lymphocytes ( %) (Auto) 12.8L, Monocytes (%) (Auto) 10.5H, Eosinophils (%) (Auto) 1.6, Basophils (%) (Auto) 0.5, Sodium Level 145, Potassium Level 3.5, Chloride Level 112H, Carbon Dioxide Level 21, Anion Gap 12, Blood Urea Nitrogen 29H, Creatinine 2.0H, Estimat Glomerular Filtration Rate , Glucose Level 109H, Uric Acid 5.0, Calcium Level 8.1L, Phosphorus Level 5.4H, Magnesium Level 1.5L, Total Bilirubin 0.3, Aspartate Amino Transf (AST/SGOT) 22, Alanine Aminotransferase (ALT/SGPT) 21, Alkaline Phosphatase 96, C-Reactive Protein, Quantitative 0.8, Pro-B-Type Natriuretic Peptide 1736H, Total Protein 5.9L, Albumin 2.5L, Globulin 3.4, Albumin/Globulin Ratio 0.7L 09/18/17 06:30: Urine Eosinophils Seen Current Medications Medications (Trade) Dose Ordered Sig/Aaron Route PRN Reason Start Time Stop Time Status Last Admin Dose Admin Acetaminophen (Tylenol) 650 mg Q4H PRN ORAL fever 09/14/17 23:45 10/14/17 23:44 Albuterol/ Ipratropium (Albuterol/ Ipratropium) 3 ml Q6H PRN HHN dyspnea 09/14/17 23:45 09/19/17 23:44 Clonidine HCl (Catapres) 0.1 mg Q4H PRN ORAL For High Blood Pressure 09/14/17 23:45 10/14/17 23:44 Dextrose (Dextrose 50%) STAT PRN IV Hypoglycemia 09/14/17 23:45 10/14/17 23:44 Epoetin Kelechi (Procrit (for non ESRD use)) 10,000 units MON-WED-THU SUBQ 09/18/17 21:00 10/18/17 20:59 Haloperidol Lactate (Haldol) 5 mg Q6H PRN IM AGITATION 09/15/17 16:30 10/15/17 16:29 09/18/17 08:23 Heparin Sodium (Porcine) (Heparin 5000 units/ml) 5,000 units EVERY 12 HOURS SUBQ 09/15/17 09:00 10/15/17 08:59 09/18/17 08:24 Insulin Aspart (NovoLOG) BEFORE MEALS AND HS SUBQ 09/15/17 06:30 10/15/17 06:29 09/18/17 11:58 Iron Sucrose 100 mg/Sodium Chloride 60 ml @ 240 mls/hr BEDTIME IV 09/17/17 21:00 09/21/17 21:14 09/17/17 21:19 Lorazepam (Ativan 2mg/ml 1ml) 1 mg Q4H PRN IM For Anxiety 09/17/17 17:00 09/24/17 16:59 09/17/17 17:43 Morphine Sulfate (Morphine Sulfate) 1 mg Q4H PRN IVP For Pain 09/14/17 23:45 09/21/17 23:44 09/15/17 21:32 Olanzapine (ZyPREXA) 5 mg BEDTIME ORAL 09/15/17 21:00 10/15/17 20:59 09/17/17 21:08 Ondansetron HCl (Zofran) 4 mg Q6H PRN IVP Nausea & Vomiting 09/14/17 23:45 10/14/17 23:44 Polyethylene Glycol (Miralax) 17 gm HSPRN PRN ORAL Constipation 09/14/17 23:45 10/14/17 23:44 Sodium Chloride 1,000 ml @ 75 mls/hr [id number] IV 09/16/17 09:30 10/16/17 09:29 09/18/17 14:22 Zolpidem Tartrate (Ambien) 5 mg HSPRN PRN ORAL Insomnia 09/14/17 23:45 09/21/17 23:44 09/15/17 21:21 YAQUELIN CORRAL Sep 18, 2017 17:00
[2017-09-18 20:00] VITALS: BP 142/84
[2017-09-18] MEDS: Iron Sucrose 100 MG in NS 55 ML IV SCH (20:31)
[2017-09-18] MEDS ORDERED: Epogen (for non ESRD use) SUBQ SCH (21:00)
[2017-09-19] VITALS: BP 149/71
[2017-09-19 04:00] VITALS: BP 143/74
[2017-09-19] MEDS: NovoLOG Insulin Flexpen SUBQ SCH ×2 (06:40→12:03)
[2017-09-19] MEDS: Heparin 5000 units/ml inj SUBQ SCH (08:22)
[2017-09-19 08:44] VITALS: BP 157/89
--- NOTE | 2017-09-19 10:05 | Pulmonology Progress Note ---
Assessment/Plan Problems: (1) Encephalopathy acute (2) HTN (hypertension) (3) ATN (acute tubular necrosis) (4) Hip fracture (5) Dementia (6) Diabetes mellitus (7) Acute hyperkalemia Assessment/Plan i sliding scale all noted dvt prophylaxis. acute on chronic renal failure, anemia with negative OB, most likely secondary to renal disease. improivng dc to snif Subjective Constitutional: Reports: no symptoms HEENT: Repors: no symptoms Respiratory: Reports: no symptoms Cardiovascular: Reports: no symptoms Gastrointestinal/Abdominal: Reports: no symptoms Allergies: Coded Allergies: No Known Allergies (Verified , 12/31/09) Objective Last 24 Hour Vital Signs Date Time Temp Pulse Resp B/P (MAP) Pulse Ox O2 Delivery O2 Flow Rate FiO2 09/19/17 08:44 97.6 87 20 157/89 100 09/19/17 06:30 92 20 Room Air 21 09/19/17 04:00 97.2 77 20 143/74 97 09/19/17 00:00 98.2 82 20 149/71 98 09/18/17 20:00 97.0 86 20 142/84 98 09/18/17 19:29 91 20 Room Air 21 09/18/17 16:02 98.5 81 18 144/48 95 Room Air 09/18/17 12:00 98.0 81 18 130/70 98 Intake and Output 09/18/17 09/19/17 19:00 07:00 Intake Total 1065 ml 1125 ml Output Total 1600 ml Balance 1065 ml -475 ml Intake Oral 240 ml 240 ml IV Total 825 ml 885 ml Output Urine Total 1600 ml # Bowel Movements 1 General Appearance: cachetic HEENT: normocephalic Respiratory/Chest: chest wall non-tender, lungs clear Breasts: no masses Abdomen: normal bowel sounds, no mass Genitourinary: normal external genitalia Extremities: no clubbing Skin: no lesions Laboratory Tests 09/19/17 08:30: C-Reactive Protein, Quantitative 3.3H Current Medications Medications (Trade) Dose Ordered Sig/Aaron Route PRN Reason Start Time Stop Time Status Last Admin Dose Admin Acetaminophen (Tylenol) 650 mg Q4H PRN ORAL fever 09/14/17 23:45 10/14/17 23:44 Albuterol/ Ipratropium (Albuterol/ Ipratropium) 3 ml Q6H PRN HHN dyspnea 09/14/17 23:45 09/19/17 23:44 Clonidine HCl (Catapres) 0.1 mg Q4H PRN ORAL For High Blood Pressure 09/14/17 23:45 10/14/17 23:44 Dextrose (Dextrose 50%) STAT PRN IV Hypoglycemia 09/14/17 23:45 10/14/17 23:44 Epoetin Kelechi (Procrit (for non ESRD use)) 10,000 units THU-THU-THU SUBQ 09/18/17 21:00 10/18/17 20:59 09/18/17 20:31 Haloperidol Lactate (Haldol) 5 mg Q6H PRN IM AGITATION 09/15/17 16:30 10/15/17 16:29 09/18/17 08:23 Heparin Sodium (Porcine) (Heparin 5000 units/ml) 5,000 units EVERY 12 HOURS SUBQ 09/15/17 09:00 10/15/17 08:59 09/19/17 08:22 Insulin Aspart (NovoLOG) BEFORE MEALS AND HS SUBQ 09/15/17 06:30 10/15/17 06:29 09/19/17 06:40 Iron Sucrose 100 mg/Sodium Chloride 60 ml @ 240 mls/hr BEDTIME IV 09/17/17 21:00 09/21/17 21:14 09/18/17 20:31 Lorazepam (Ativan 2mg/ml 1ml) 1 mg Q4H PRN IM For Anxiety 09/17/17 17:00 09/24/17 16:59 09/17/17 17:43 Morphine Sulfate (Morphine Sulfate) 1 mg Q4H PRN IVP For Pain 09/14/17 23:45 09/21/17 23:44 09/15/17 21:32 Olanzapine (ZyPREXA) 5 mg BEDTIME ORAL 09/15/17 21:00 10/15/17 20:59 09/18/17 20:31 Ondansetron HCl (Zofran) 4 mg Q6H PRN IVP Nausea & Vomiting 09/14/17 23:45 10/14/17 23:44 Polyethylene Glycol (Miralax) 17 gm HSPRN PRN ORAL Constipation 09/14/17 23:45 10/14/17 23:44 Sodium Chloride 1,000 ml @ 75 mls/hr [id number] IV 09/16/17 09:30 10/16/17 09:29 09/19/17 04:03 Zolpidem Tartrate (Ambien) 5 mg HSPRN PRN ORAL Insomnia 09/14/17 23:45 09/21/17 23:44 09/15/17 21:21 YAQUELIN CORRAL Sep 19, 2017 10:05
[2017-09-19 11:41] VITALS: BP 112/62
--- NOTE | 2017-09-19 12:53 | Nephrology Progress Note ---
Assessment/Plan Problem List: (1) Encephalopathy acute (2) ATN (acute tubular necrosis) (3) Dementia (4) ARF (acute renal failure) (5) Anemia Assessment Acute renal failure Cr 2.1 ? CKD DM Anemia Plan Plan: IV Iron Slow Hydrate Anemia patricio Urine studies monitor renal parameters urine for Eos and Na 2D echo : Left ventricular ejection fraction estimated to be 45-50 %. Mild left ventricular hypertrophy by 2-D. Subjective ROS Limited/Unobtainable: No Constitutional: Reports: malaise Objective Objective Last 24 Hour Vital Signs Date Time Temp Pulse Resp B/P (MAP) Pulse Ox O2 Delivery O2 Flow Rate FiO2 09/19/17 11:41 98.2 67 21 112/62 100 09/19/17 08:44 97.6 87 20 157/89 100 09/19/17 06:30 92 20 Room Air 21 09/19/17 04:00 97.2 77 20 143/74 97 09/19/17 00:00 98.2 82 20 149/71 98 09/18/17 20:00 97.0 86 20 142/84 98 09/18/17 19:29 91 20 Room Air 21 09/18/17 16:02 98.5 81 18 144/48 95 Room Air Intake and Output 09/18/17 09/19/17 19:00 07:00 Intake Total 1065 ml 1125 ml Output Total 1600 ml Balance 1065 ml -475 ml Intake Oral 240 ml 240 ml IV Total 825 ml 885 ml Output Urine Total 1600 ml # Bowel Movements 1 Laboratory Tests 09/19/17 08:30: C-Reactive Protein, Quantitative 3.3H Height (Feet): 5 Height (Inches): 4.00 Weight (Pounds): 120 General Appearance: no apparent distress Objective no signs of chf CYNDY MATHEWS Sep 19, 2017 12:53
[2017-09-19] MEDS ORDERED: 1/2 NS 1000ml IV ONE ×2 (15:29→17:29)
[2017-09-19] MEDS ORDERED: Tubing IV Secondary IV ONE (15:29)
[2017-09-19 16:00] VITALS: BP 154/91
--- NOTE | 2017-09-19 18:53 | General Progress Note ---
Assessment/Plan Status: stable, progressing Assessment/Plan encephalopathy -zyprexa -haldol im Subjective Date patient seen: Sep 17, 2017 Neurologic/Psychiatric: Reports: anxiety, depressed, emotional problems Allergies: Coded Allergies: No Known Allergies (Verified , 12/31/09) Objective Last 24 Hour Vital Signs Date Time Temp Pulse Resp B/P (MAP) Pulse Ox O2 Delivery O2 Flow Rate FiO2 09/19/17 16:00 96.8 74 20 154/91 100 09/19/17 11:41 98.2 67 21 112/62 100 09/19/17 08:44 97.6 87 20 157/89 100 09/19/17 06:30 92 20 Room Air 21 09/19/17 04:00 97.2 77 20 143/74 97 09/19/17 00:00 98.2 82 20 149/71 98 09/18/17 20:00 97.0 86 20 142/84 98 09/18/17 19:29 91 20 Room Air 21 Intake and Output 09/18/17 09/19/17 19:00 07:00 Intake Total 1065 ml 1125 ml Output Total 1600 ml Balance 1065 ml -475 ml Intake Oral 240 ml 240 ml IV Total 825 ml 885 ml Output Urine Total 1600 ml # Bowel Movements 1 Laboratory Tests 09/19/17 08:30: C-Reactive Protein, Quantitative 3.3H Height (Feet): 5 Height (Inches): 4.00 Weight (Pounds): 120 General Appearance: no apparent distress, alert, confused, agitated Neurologic: disoriented Rema Banks M.D. Sep 19, 2017 18:53
--- NOTE | 2017-09-19 18:53 | General Progress Note ---
Assessment/Plan Status: unchanged Assessment/Plan encephalopathy -zyprexa -haldol im Subjective Date patient seen: Sep 18, 2017 Neurologic/Psychiatric: Reports: anxiety, emotional problems Allergies: Coded Allergies: No Known Allergies (Verified , 12/31/09) Objective Last 24 Hour Vital Signs Date Time Temp Pulse Resp B/P (MAP) Pulse Ox O2 Delivery O2 Flow Rate FiO2 09/19/17 16:00 96.8 74 20 154/91 100 09/19/17 11:41 98.2 67 21 112/62 100 09/19/17 08:44 97.6 87 20 157/89 100 09/19/17 06:30 92 20 Room Air 21 09/19/17 04:00 97.2 77 20 143/74 97 09/19/17 00:00 98.2 82 20 149/71 98 09/18/17 20:00 97.0 86 20 142/84 98 09/18/17 19:29 91 20 Room Air 21 Intake and Output 09/18/17 09/19/17 19:00 07:00 Intake Total 1065 ml 1125 ml Output Total 1600 ml Balance 1065 ml -475 ml Intake Oral 240 ml 240 ml IV Total 825 ml 885 ml Output Urine Total 1600 ml # Bowel Movements 1 Laboratory Tests 09/19/17 08:30: C-Reactive Protein, Quantitative 3.3H Height (Feet): 5 Height (Inches): 4.00 Weight (Pounds): 120 General Appearance: alert, confused, agitated Neurologic: alert, disoriented, depressed affect Rema Banks M.D. Sep 19, 2017 18:53
--- NOTE | 2017-09-22 07:56 | Discharge Summary ---
Discharge Summary Hospital Course Date of Admission Sep 14, 2017 at 23:43 Date of Discharge Sep 19, 2017 at 17:30 Admitting Diagnosis Hyperkalemia, ARF HPI Venessa Ugalde is a 77 year old female who was admitted on Sep 14, 2017 at 23:43 for Hyperkalemia/Acute Renal Failure Hospital Course dc summary #[id number] Discharge Medications Continued Medications: Ascorbic Acid* (Vitamin C*) 250 Mg Tablet 250 MG ORAL DAILY, #30 TAB 0 Refills Atorvastatin Calcium* (Atorvastatin Calcium*) 20 Mg Tablet 20 MG ORAL BEDTIME, TAB Docusate Sodium* (Docusate Sodium*) 100 Mg Capsule 100 MG ORAL BID, CAP Furosemide* (Lasix*) 20 Mg Tablet 20 MG ORAL DAILY, TAB Insulin Aspart (Novolog Flexpen) 100 Unit/1 Ml Insuln.pen 0 UNITS SUBQ BEFORE MEALS AND HS for 30 Days, EA Insulin Glargine (Lantus) 100 Unit/1 Ml Vial 5 SUBQ AC, #1 EA 0 Refills Insulin Glargine (Lantus) 100 Unit/1 Ml Insuln.pen 20 UNITS SUBQ BID, #1 EA 0 Refills Lisinopril* (Lisinopril*) 2.5 Mg Tablet 2.5 MG ORAL DAILY, TAB 0 Refills Magnesium Hydroxide* (Milk Of Magnesia*) 400 Mg/5 Ml Oral.susp 30 ML ORAL DAILY, ML Metformin Hcl* (Metformin Hcl*) 500 Mg Tablet 500 MG ORAL TWICE A DAY, TAB Multivitamin With Minerals (Multivitamins With Minerals*) 1 Each Tablet 1 TAB ORAL DAILY, TAB Triamterene/Hydrochlorothiazid (Maxzide 37.5 Mg-25 Mg Tablet) 1 Each Tablet 1 EACH PO DAILY, TAB Discharge Condition Upon Discharge: stable Discharge Disposition Patient was discharged to SNF/Subacute Facility(03) Discharge Diagnoses: Discharge Instructions Discharge Instructions Special Instructions I have been assigned to complete a D/C Summary on this account. I was not involved in the patient management Chica Brizuela NP ([facility]) Sep 22, 2017 07:56
--- NOTE | 2017-09-23 04:15 | Discharge Summary 2 SIG ---
DATE OF ADMISSION: 09/14/2017 DATE OF DISCHARGE: 09/19/2017 REASON FOR ADMISSION: 77-year-old female with a history of diabetes, hypertension, right femoral fracture, history of cerebral palsy, and dementia, presented to the emergency department after [facility] laboratory results revealed critically high potassium. Workup in the emergency room revealed acute renal failure with BUN- 69, creatinine -2.5, and potassium - 5.8. Laboratory workup also revealed evidence of anemia with hemoglobin -9.1 and hematocrit -30.6. The patient was admitted with diagnosis of acute renal failure/ possible acute tubular necrosis, acute hyperkalemia, acute encephalopathy and anemia. HOSPITAL COURSE: The patient admitted. The patient was started on slow hydration. Hyperkalemia was addressed and treated. Renal parameters and electrolytes were closely monitored. Nephrotoxic were avoided. Tour Conductor consult was requested. Urine studies were done. Anemia workup was consistent with anemia of chronic disease and low iron. IV iron was given. The patient was on the Epogen along with IV iron. Stool OB was negative, no evidence of acute GI bleeding. Anemia was likely secondary to chronic kidney disease. Renal ultrasound revealed no hydronephrosis, normal echogenicity bilaterally, and no evidence of renal stones. With hydration, creatinine down to 2. The patient apparently had chronic kidney disease as well. Echocardiogram revealed ejection fraction of 45% to 50% with right ventricular systolic pressure of 37. Blood sugar was managed with sliding scale of insulin. Hemoglobin A1c -7.5, nearly at goal. Lipid panel within normal limits. Blood pressure remained stable. Clonidine remained on standby as needed. Psychiatrist seen and evaluated the patient, diagnosed the patient with encephalopathy and dementia. The patient was started on Zyprexa. Furthermore, psychiatric medication regimen was optimized as per Psychiatry and to be continued at [facility] facility. Acute encephalopathy was possibly precipitated by acute renal failure and the patient's mental status back to baseline prior to discharge. Potassium down to normal. The patient was stable for discharge. FINAL DIAGNOSES: 1. Acute renal failure on chronic kidney disease. 2. Acute tubular necrosis. 3. Acute hyperkalemia, resolved. 4. Anemia of chronic disease. 5. Diabetes mellitus. 6. Acute encephalopathy on chronic dementia. 7. Hypertension. 8. History of right hip fracture. DISCHARGE MEDICATIONS: See medication reconciliation list. DISCHARGE INSTRUCTIONS: The patient was discharged to [facility] facility. Follow up with medical doctor at the facility. Closely monitor renal function, electrolytes and hemoglobin/hematocrit. Kristy Michaels M.D. I have been assigned to dictate discharge summary on this account and I was not involved in the patient's management. Chica BerryNyu Langone Orthopedic HospitalHenrik NValeria DR: RUBEN JOB#: [id number] CC: JUAN MANUEL
== END 2017-09-19 17:30 | DRG 469 ==
LOC: EDBD 21:35 → EMR 21:40 → 4E 23:43 → ENRESERV 09-15 01:22 → EDBEDREQ 09-15 01:24
DX: N17.0 Acute kidney failure with tubular necrosis (principal); G93.40 Encephalopathy, unspecified; E11.22 Type 2 diabetes mellitus with diabetic chronic kidney disease; F03.90 Unspecified dementia, unspecified severity, without behavioral disturbance, psychotic disturbance, mood disturbance, and anxiety; E87.5 Hyperkalemia; I12.9 Hypertensive chronic kidney disease with stage 1 through stage 4 chronic kidney disease, or unspecified chronic kidney disease; D63.8 Anemia in other chronic diseases classified elsewhere; G80.9 Cerebral palsy, unspecified; N18.9 Chronic kidney disease, unspecified; Z79.4 Long term (current) use of insulin; S72.001D Fracture of unspecified part of neck of right femur, subsequent encounter for closed fracture with routine healing; Z91.81 History of falling
CPT/HCPCS: 36415; 71045; 76775; 80048; 80053; 80061; 81001; 82270; 82378; 82607; 82728; 82746; 82962; 83036; 83540; 83550; 83615; 83735; 83880; 84100; 84300; 84443; 84550; 85007; 85025; 85044; 85060; 85610; 85651; 85730; 86140; 87081; 89050; 93005; 93306; 94664; 99285; J1815

== ENCOUNTER 2019-04-13 12:38 | Inpatient (IN) | payer MEDICARE, MEDICAID ==
[~2019-04-13] VITALS: Ht 162.6 cm; Wt 72.6 kg
[2019-04-13 12:45] VITALS: BP 125/71
--- NOTE | 2019-04-13 12:45 | NUR ---
ED Nurse Note: pt brought by ambulance from [facility] due to clogged g-tube. unknown size. pt is non-verbal. contracted on both upper arms. no visible open wound noted. came with perera catheter. g-tube on upper abdomen. on cardiac exercise specialist. respirations even and non-labored noted. will wait for the further order.
[2019-04-13] MEDS ORDERED: PROTONIX40 MG GT (12:52)
[2019-04-13] MEDS ORDERED: CLONIDINE HCL0.1 MG GT (12:52)
[2019-04-13] MEDS ORDERED: EPOGEN4000 UNIT/ SUBQ (12:52)
[2019-04-13] MEDS ORDERED: GABAPENTIN100 MG ORAL (12:52)
[2019-04-13] MEDS ORDERED: EPOGEN20000 UNI1 SUBQ (12:52)
--- NOTE | 2019-04-13 14:17 | Emergency Room Report ---
History of Present Illness General Chief Complaint: Malfunctioning Gastric Tube Source: Medical Record Present Illness HPI 78-year-old female presents with G-tube malfunction, started prior to arrival, not flushing, severity is mild, unknown aggravating or alleviating factors, patient is not answering questions, records obtained from [facility]. Allergies: Coded Allergies: No Known Allergies (Verified , 12/31/09) Patient History Limited by: medical condition - Dementia Past Medical History: see triage record Reviewed Nursing Documentation: PMH: Agreed; PSxH: Agreed Nursing Documentation-PMH Past Medical History: No History, Except For Hx Hypertension: Yes - fracture of right femur Hx Pacemaker: No Hx Asthma: No Hx COPD: No Hx Diabetes: Yes Hx Cancer: No Hx Dialysis: No Hx Neurological Problems: Yes - Muscle weakness, difficulty in walking Hx Cerebrovascular Accident: No Hx Seizures: No Hx Cerebral Palsy: Yes Review of Systems All Other Systems: limited - Dementia Physical Exam Vital Signs Date Time Temp Pulse Resp B/P (MAP) Pulse Ox O2 Delivery O2 Flow Rate FiO2 04/13/19 12:39 97.7 68 16 123/65 (84) 97 Room Air Sp02 EP Interpretation: reviewed, normal General Appearance: well appearing, no apparent distress, alert Head: normocephalic, atraumatic Eyes: bilateral eye PERRL, bilateral eye EOMI ENT: uvula midline, moist mucus membranes Neck: supple, thyroid normal, supple/symm/no masses Respiratory: lungs clear, no respiratory distress, no retraction, no accessory muscle use Cardiovascular #1: normal peripheral pulses, regular rate, rhythm, no edema, no gallop, no murmur Gastrointestinal: non tender, soft, no guarding, no rebound, other - G-tube in place not flushing Musculoskeletal: normal inspection Neurologic: alert, responsive Psychiatric: mood/affect normal Skin: no rash, warm/dry Procedures Additional Procedure Procedure Narrative G-tube replacement, replaced with 20 Romanian G-tube, patient tolerated procedure well, confirmation with KUB with Gastrografin Medical Decision Making Diagnostic Impression: Primary Impression: Malfunction of gastrostomy tube ER Course Patient with G-tube malfunction, replaced G-tube, KUB shows Gastrografin in the stomach, will send patient back to [facility]. EKG Diagnostic Results EKG Time: 13:18 EP Interpretation: NSR, rate 66, QTc 475, no acute ST elevations, normal axis Rate: normal Rhythm: NSR ST Segments: no acute changes Chest X-Ray Diagnostic Results Chest X-Ray Diagnostic Results : Chest X-Ray Ordered: Yes # of Views/Limited/Complete: 1 View Indication: Other - preop Interpretation: no consolidation, no effusion, no pneumothorax, no acute cardiopulmonary disease Impression: No acute disease Electronically Signed by: Andrea Carmichael MD Other X-Ray Diagnostic Results Other X-Ray Diagnostic Results : X-Ray ordered: KUB # of Views/Limited Vs Complete: 1 View Indication: Other - G tube confirmation EP Interpretation: Yes Interpretation: other - Gastrograffin in stomach Impression: Other - Gastrograffin in stomach, G tube in correct position Electronically Signed by: Andrea Carmichael MD Last Vital Signs Date Time Temp Pulse Resp B/P (MAP) Pulse Ox O2 Delivery O2 Flow Rate FiO2 04/13/19 12:45 65 15 125/71 98 Room Air 04/13/19 12:39 97.7 Disposition: XFER SNF Condition: Stable Referrals: Jeffrey Crowder MD (PCP) Patient Instructions: Gastrostomy Tube Home Guide, Adult Additional Instructions: The patient was provided with discharge instructions, notified to follow-up with a primary care doctor and or specialist in the next 24-48 hours, and to return to the ED if they have worsening of their symptoms. Please note that this report is being documented using [employer] technology. This can lead to erroneous entry secondary to incorrect interpretation by the dictating instrument. G-tube was replaced Andrea Carmichael MD Apr 13, 2019 14:17
--- NOTE | 2019-04-13 14:22 | NUR ---
ED Nurse Note: KUB done at the bed side.
--- NOTE | 2019-04-13 14:27 | NUR ---
ED Nurse Note: RN able to injected 30ml of gastrografin and flush with 60 ml of tap water without any complication.
[2019-04-13 15:00] VITALS: BP 143/66
[2019-04-13] MEDS ORDERED: Cefepime HCl 2 GM in NS 110 ML IV SCH (15:15)
[2019-04-13 15:44] LABS: APPEARANCE,URINE SLIGHTLY CLOUDY; BILIRUBIN, URINE NEGATIVE (NEGATIVE); COLOR,URINE PALE YELLOW; GLUCOSE, URINE (UA) 1+ (NEGATIVE); KETONES,URINE NEGATIVE (NEGATIVE); LEUKOCYTE ESTERASE ,URINE 3+ (NEGATIVE); NITRITE,URINE NEGATIVE (NEGATIVE); PH,URINE 8 (4.5-8.0); PROTEIN,URINE 3+ (NEGATIVE); UROBILINOGEN,URINE NORMAL MG/DL (0.0-1.0)
[2019-04-13 15:44] LABS: BASOPHILS % (AUTO) 0.4 % (0.0-2.0); EOSINOPHILS % (AUTO) 3.5 % (0.0-3.0); HEMATOCRIT 42.3 % (37.0-47.0); HEMOGLOBIN 13.4 G/DL (12.0-16.0); LYMPHOCYTES % (AUTO) 33.5 % (20.0-45.0); MEAN CORPUSCULAR VOLUME 85 FL (80-99); MONOCYTES % (AUTO) 7.3 % (1.0-10.0); NEUTROPHILS % (AUTO) 55.2 % (45.0-75.0); PLATELET COUNT 222 K/UL (150-450); RED BLOOD COUNT 4.98 M/UL (4.20-5.40); RED CELL DISTRIBUTION WIDTH 14.5 % (11.6-14.8); WHITE BLOOD COUNT 6.6 K/UL (4.8-10.8)
[2019-04-13 16:00] LABS: ANION GAP 8 mmol/L (5-15); BLOOD UREA NITROGEN 59 mg/dL (7-18); CALCIUM 10.2 MG/DL (8.5-10.1); CARBON DIOXIDE 30 MMOL/L (21-32); CHLORIDE 103 MMOL/L (98-107); CREATININE 1.6 MG/DL (0.55-1.30); SODIUM 141 MMOL/L (136-145)
[2019-04-13 16:03] LABS: POTASSIUM 5.3 MMOL/L (3.5-5.1)
[2019-04-13 16:05] LABS: ALANINE AMINOTRANSFERASE 73 U/L (12-78); ALBUMIN 3.3 G/DL (3.4-5.0); ALBUMIN/GLOBULIN RATIO 0.6 (1.0-2.7); ALKALINE PHOSPHATASE 219 U/L (46-116); ASPARTATE AMINO TRANSFERASE 87 U/L (15-37); BILIRUBIN,TOTAL 0.5 MG/DL (0.2-1.0)
--- NOTE | 2019-04-13 16:33 | NUR ---
ED Nurse Note: Dr. Peña at the bed side.
[2019-04-13 17:00] VITALS: BP 144/72
[2019-04-13] MEDS ORDERED: LORazepam Inj 2mg/ml 1ml IV ONE (17:00)
--- NOTE | 2019-04-13 17:00 | NUR ---
ED Nurse Note: pt started screaming on and off. Dr. Milian notified.
[2019-04-13] MEDS ORDERED: LORazepam Inj 2mg/ml 1ml ONE (17:01)
--- NOTE | 2019-04-13 17:55 | NUR ---
ED Nurse Note: Reports given to FELY Ochoa
--- NOTE | 2019-04-13 18:45 | NUR ---
NURSE NOTES: Received patient from ER via gurney. Patient opens her eyes spontaneously. No Belongings. IV on right G22. GT in place. prepared IV and feeding pump in the room. Will endorse to the next shift to do admission.
--- NOTE | 2019-04-13 19:00 | NUR ---
HAND-OFF: Report given to Adilene to complete admission.
--- NOTE | 2019-04-13 19:48 | NUR ---
NURSE NOTES: Received patient awake in bed, IV access inserted in ER. Vital signs stable. Will call Dr Peña for admission orders.
[2019-04-13 20:00] VITALS: BP 132/77
--- NOTE | 2019-04-13 20:51 | NUR ---
CASE MANAGEMENT: REVIEW 78Y/F BIBA FROM [facility] CC: CLOGGED G-TUBE SI: MALFUNCTION OF GASTROSTOMY TUBE G-TUBE REPLACEMENT 04/13 T 98.0 HR 89 RR 12 BP 146/67 SAT 99% ROOM AIR K 5.3 BUN 59 CR 1.6 URINE CX PENDING IS: ATIVAN IV X1 CEFEPIME IV X1 PATIENT ADMITTED TO MED/SURG UNIT 04/13/2019 DCP: PATIENT IS FROM [facility]
[2019-04-13] MEDS: Heparin 5000 units/ml inj SUBQ SCH (21:33)
[2019-04-13] MEDS: Albuterol/Ipratropium 3ml neb HHN SCH (21:37)
[2019-04-13] MEDS ORDERED: Vancomycin 1.25gm Premix IVPB SCH (23:00)
[2019-04-14] VITALS: BP 118/64
[2019-04-14] MEDS: Albuterol/Ipratropium 3ml neb HHN SCH ×4 (01:05→19:19)
[2019-04-14 04:00] VITALS: BP 112/69
[2019-04-14] MEDS: NovoLOG Insulin Flexpen SUBQ SCH ×4 (06:17→21:20)
[2019-04-14] MEDS ORDERED: NovoLOG Insulin Flexpen SUBQ SCH (06:30)
--- NOTE | 2019-04-14 07:45 | NUR ---
NURSE NOTES: received patient A/A/Ox1, nonverbal. On gtube feeding and tolerating no gastric residual. hob elevated for aspiration precaution. siderails are up x3. bed is in the lowest position. bed alarm and lock mode at all times. No acute resp distress noted. will cont to monitor.
[2019-04-14 08:00] VITALS: BP 124/58
--- NOTE | 2019-04-14 08:05 | NUR ---
HAND-OFF: Report given to MARQUES Jordan.
[2019-04-14] MEDS: Heparin 5000 units/ml inj SUBQ SCH ×2 (08:58→21:17)
[2019-04-14] MEDS: Gabapentin 300 MG/6 ML Soln GT SCH ×3 (08:58→17:19)
[2019-04-14 12:00] VITALS: BP 115/55
--- NOTE | 2019-04-14 12:22 | NUR ---
RD ASSESSMENT & RECOMMENDATIONS SEE CARE ACTIVITY FOR COMPLETE ASSESSMENT DAILY ESTIMATED NEEDS: Needs based on DM, Renal 59.7kg 25-30 kcals/kg 3928-9911 total kcals 1-1.5 g protein/kg 60-90 g total protein 25-30 mL/kg 4898-5992 total fluid mLs NUTRITION DIAGNOSIS: 1) Altered nutrition related lab values r/t clinical status, DM as evidenced by pt w/ elev BUN (59), Cr (1.6), K (5.3), & elev BG (POC 165-236). 2) Chewing/ swallowing difficulty r/t dysphagia as evidenced by pt is GT dep. CURRENT TF: Glucerna 1.2 @45ml /hr x24 hrs (PO DIET RECOMMENDATIONS: CAR WIPER eval prior to oral grat) ENTERAL NUTRITION RECOMMENDATIONS--->>> NEPRO @35ml/hr x24 hrs to provide 840ml, 1512 kcal, 68g pro, 611ml free H2O * REC TF CHANGE TO NEPRO (elev K, elev Creat and BUN) * Start Nepro @25ml/hr for 6 hrs. Advance as tolerated 10ml to goal of 35ml/hr. * Flush per MD/ HOB over 30 degrees ADDITIONAL RECOMMENDATIONS: 1) Rec TF change to NEPRO 2) CAR WIPER if pt is appropriate for oral grat 3) Monitor lytes daily 4) F/up w/ wound eval (photo of L thigh) 5) Calibrate bed scale for accurate wt EMR WT: 160 lbs BED WT: 131.4 lbs
[2019-04-14] MEDS: Cefepime HCl 1 GM in D5W 55 ML IVPB SCH (14:17)
--- NOTE | 2019-04-14 15:00 | NUR ---
NURSE NOTES: had called Dr Peña re: agitation/moaning. spoke with nicola @ the office and stated that he will be making his rounds. informed the Leo LEYVA.
[2019-04-14 16:00] VITALS: BP 114/69
--- NOTE | 2019-04-14 16:16 | NUR ---
*-* INSURANCE *-* ALL CLINICAL AND REVIEWS HAVE BEEN FAXED TO: [employer] FAX ALL CLINICALS TO: [phone]
--- NOTE | 2019-04-14 19:03 | NUR ---
HAND-OFF: Report given to Tana.
--- NOTE | 2019-04-14 19:30 | NUR ---
NURSE NOTES: RECEIVED PATIENT LYING IN BED, AWAKE, ORIENTED TO SELF, REALITY ORIENTATION PROVIDED DURING ASSESSMENT, FAMILY REMAIN AT BEDSIDE. INTERMITTENTLY YELLING OUT, NO SIGNS AND SYMPTOMS OF ACUTE CARDIO RESPIRATORY DISTRESS/SHORTNESS OF BREATH, TRACE EDEMA NOTED TO BILATERAL LOWER EXTREMITIES, ELEVATED ON PILLOW FOR COMFORT/PRESSURE RELIEF. G TUBE INTACT TO LEFT UPPER ABDOMEN, TOLERATING FEEDING, NO GASTRIC RESIDUAL ASPIRATED VIA G TUBE. SIDE RAILS UP X3/BED IN LOWEST POSITION FOR SAFETY. FREQUENT ROUNDING FOR SAFETY/NEEDS. NAD.
[2019-04-14 20:00] VITALS: BP 110/83
--- NOTE | 2019-04-14 20:18 | NUR ---
CASE MANAGEMENT: REVIEW SI: MALFUNCTION OF GASTROSTOMY TUBE G-TUBE REPLACEMENT 04/13 T 98.0 HR 80 RR 20 BP 115/55 SAT 97% ROOM AIR 2D ECHO PENDING IS: VANCO IV X1 CEFEPIME IV Q24HR NS IVF @100ML/HR ALBUTEROL HHN X1 HEPARIN SUBQ Q12HR MED/SURG UNIT STATUS [facility]
[2019-04-14] MEDS ORDERED: Vancomycin 1gm/D5W 275ml IVPB ONE ×2 (23:00)
[2019-04-15] VITALS: BP 117/50
[2019-04-15] MEDS: Albuterol/Ipratropium 3ml neb HHN SCH ×4 (00:38→20:05)
--- NOTE | 2019-04-15 02:00 | Progress Note ---
DATE: 04/14/2019 INTERNAL MEDICINE PROGRESS NOTE SUBJECTIVE: The patient has less congestion. She is more alert today, but also agitated at times. OBJECTIVE: VITAL SIGNS: Blood pressure 114/69, heart rate 80, and respiratory rate 20. She is afebrile. T-max 99. LUNGS: Coarse breath sounds. Few rhonchi. HEART: Regular rhythm and rate. Normal S1, S2. ABDOMEN: Soft with G-tube. EXTREMITIES: Contractures. No edema. NEUROLOGIC: Nonverbal. IMPRESSION: 1. Healthcare-acquired pneumonia, likely due to aspiration. 2. Cerebrovascular accident with dementia. 3. Atherosclerotic cardiovascular disease. 4. Hyperkalemia. 5. Acute renal failure. 6. Type 2 diabetes mellitus. 7. Mild protein-calorie malnutrition. 8. Urinary tract infection. PLAN: 1. Empiric antibiotics. 2. Respiratory hygiene. 3. Aspiration precaution. 4. Nutrition by feeding tube. 5. Insulin by sliding scale. 6. Cautious hydration. 7. Await culture results. 8. DVT prophylaxis. 9. Hold metformin in view of renal failure. 10. Follow up lab studies. Kavon Peña M.D. DR: FILIBERTO JOB#: [id number] CC:
[2019-04-15 04:00] VITALS: BP 141/65
--- NOTE | 2019-04-15 04:15 | History and Physical Report ---
DATE OF ADMISSION: 04/13/2019 REASON FOR ADMISSION: Healthcare-acquired pneumonia. HISTORY OF PRESENT ILLNESS: This is a 78-year-old female residing in a intermediate facility with advanced cerebrovascular disease and dementia. She has a G-tube that she is dependent on for nutrition, the tube was clogged. The patient was also noted to have some regurgitation and subsequent congestion. She was transferred to the emergency room, there the tube was unclogged and noted to be functional. X-rays were reviewed and no signs of dislodgement was seen. The patient was noted to have a pulmonary infiltrate and concerns over pneumonia prompted further hospitalization in the setting of her presentation. PAST MEDICAL HISTORY: Cerebrovascular disease with dementia, dysphagia with G-tube, hyperlipidemia, osteoarthritis, degenerative disk disease, hypertensive heart disease, diastolic dysfunction with history of congestive heart failure, insulin-requiring diabetes mellitus, chronic kidney disease due to diabetic . ALLERGIES: None. FAMILY HISTORY: Noncontributory. SOCIAL HISTORY: No record of smoking, alcohol, or substance abuse. MEDICATIONS: Prior to admission, reviewed and reconciled. REVIEW OF SYSTEMS: Cannot be obtained from the patient. Pertinent data following review of hospital records and [facility] chart is noted above. PHYSICAL EXAMINATION: VITAL SIGNS: Afebrile, blood pressure 123/65, pulse 68, respiratory rate 16, and room air oxygen saturation 97%. HEENT: Conjunctivae are pink. Oropharynx with secretions and gurgling. NECK: Obese. LUNGS: Coarse breath sounds and rhonchi. CARDIAC: Regular rhythm and rate. Normal S1 and S2 with no murmur appreciated. ABDOMEN: Soft. G-tube site intact. There is no drainage or bleeding. EXTREMITIES: No clubbing, cyanosis, or edema. The patient is noncommunicative and there is paraparesis. LABORATORY STUDIES: Urinalysis revealed moderate bacteria and 3+ leukocyte esterase. White count 6.6 and hemoglobin 13.4. Sodium 141, potassium 5.3, bicarbonate 30, BUN 59, and creatinine 1.6. Troponin is negative. Albumin 3.3. Chest x-ray reveals right upper lobe patchy infiltrate. IMPRESSION: 1. Aspiration 2. Healthcare-acquired pneumonia. 3. Status post G-tube dysfunction and replacement. 4. Urinary tract infection. 5. Cerebrovascular disease with dementia. 6. Dehydration. 7. Hypovolemia. 8. Acute on chronic renal failure. 9. Mild protein-calorie malnutrition. PLAN: 1. Cautious hydration. 2. Panculture. 3. Respiratory hygiene. 4. Empiric antimicrobials. 5. Sputum culture. 6. Nutrition by feeding tube. 7. Hold metformin in view of elevated renal function. 8. Insulin coverage by sliding scale. 9. DVT and stress ulcer prophylaxis. Kavon Peña M.D. DR: JANNA JOB#: [id number] CC:
[2019-04-15] MEDS: NovoLOG Insulin Flexpen SUBQ SCH ×4 (05:49→21:00)
--- NOTE | 2019-04-15 06:11 | NUR ---
NURSE NOTES: RESTED WELL, NO SIGNIFICANT CHANGE OF CONDITION NOTED THROUGHOUT THE NIGHT. SAFETY MAINTAINED. NAD.
--- NOTE | 2019-04-15 07:23 | NUR ---
NURSE NOTES: Patient received awake in bed, responsive to name. Feeding running at 45cc/hr. IV sites on bilateral hands patent and intact, fluid running from left hand at 75cc/hr. HOB elevated, bed locked in lowest position. Call light placed within reach, will continue to monitor.
[2019-04-15 07:34] LABS: BASOPHILS % (AUTO) 0.6 % (0.0-2.0); EOSINOPHILS % (AUTO) 3.6 % (0.0-3.0); LYMPHOCYTES % (AUTO) 23.9 % (20.0-45.0); MEAN CORPUSCULAR VOLUME 87 FL (80-99); MONOCYTES % (AUTO) 11.9 % (1.0-10.0); NEUTROPHILS % (AUTO) 60.1 % (45.0-75.0); PLATELET COUNT 207 K/UL (150-450); RED BLOOD COUNT 4.24 M/UL (4.20-5.40); RED CELL DISTRIBUTION WIDTH 15.3 % (11.6-14.8); WHITE BLOOD COUNT 7.1 K/UL (4.8-10.8)
[2019-04-15 07:58] LABS: ALANINE AMINOTRANSFERASE 60 U/L (12-78); ALBUMIN 3.1 G/DL (3.4-5.0); ALBUMIN/GLOBULIN RATIO 0.6 (1.0-2.7); ALKALINE PHOSPHATASE 184 U/L (46-116); ANION GAP 7 mmol/L (5-15); ASPARTATE AMINO TRANSFERASE 43 U/L (15-37); BILIRUBIN,TOTAL 0.5 MG/DL (0.2-1.0); BLOOD UREA NITROGEN 51 mg/dL (7-18); CALCIUM 9.5 MG/DL (8.5-10.1); CARBON DIOXIDE 29 MMOL/L (21-32); CHLORIDE 107 MMOL/L (98-107); CREATININE 1.8 MG/DL (0.55-1.30); POTASSIUM 3.9 MMOL/L (3.5-5.1); SODIUM 143 MMOL/L (136-145)
[2019-04-15 08:00] VITALS: BP 145/104
[2019-04-15 08:11] LABS: HEMOGLOBIN 11.5 G/DL (12.0-16.0)
--- NOTE | 2019-04-15 08:13 | Diagnostic Imaging Report ---
Indication: Reason For Exam: PAIN Technique: AP views of the abdomen Comparison: Abdominal radiograph dated 01/20/2017 Findings: Nonobstructive bowel gas pattern. Oral contrast opacifies the lumen of the stomach. Patchy left basilar airspace opacity, better appreciated on same-day chest radiograph. There are multilevel discogenic degenerative changes of the visualized spine. Fixation pins are noted in the right femoral neck. IMPRESSION: Nonobstructive bowel gas pattern. Oral contrast noted within the stomach.
--- NOTE | 2019-04-15 08:13 | Diagnostic Imaging Report ---
Indication: Reason For Exam: PREOP Technique: Single AP view of the chest. Comparison: Chest radiograph dated 09/16/2017 Findings: The cardiomediastinal silhouette is unchanged. Persistent pulmonary vascular congestion. Mild diffuse peribronchial thickening. There is patchy left basilar airspace opacity. No pneumothorax. No pleural fluid. The right humeral head is again noted to be displaced inferior and medial to the glenoid, which is also seen on prior examination from 2018. IMPRESSION: 1. Left basilar airspace opacity with may represent atelectasis but is also concerning for pneumonia. 2. Persistent pulmonary vascular congestion. 3. Anterior dislocation of the right shoulder joint, which may represent no acute dislocation versus chronic dislocation. Correlation with physical exam and dedicated shoulder radiographs is recommended. Findings discussed via telephone with Dr. Milian at 1503 on 04/13/2019.
--- NOTE | 2019-04-15 08:30 | Progress Note ---
DATE: 04/14/2019 SUBJECTIVE: The patient is asleep, but arousable. He continues to be in cuff restraints. He still gets agitated easily, not redirectable, needs frequent redirection, and administration of p.r.n. medications. MENTAL STATUS EXAMINATION: The patient is alert, confused. Mood is agitated. Affect is flat. Thought process, disorganized. Thought content, no suicidal or homicidal ideation. ASSESSMENT: 1. Alcohol dependence and alcohol withdrawal. 2. Acute encephalopathy. PLAN: 1. We will continue the Zyprexa p.o. p.r.n. 2. Continue the citalopram in the morning. 3. The patient has been refusing . Haldol IM and Ativan IV has been added. Rema Banks M.D. DR: SHEILA JOB#: [id number] CC:
[2019-04-15] MEDS: HYDROcodone/Acetamin 5/325 tab ORAL PRN ×2 (09:03→20:31)
[2019-04-15] MEDS: Heparin 5000 units/ml inj SUBQ SCH ×2 (09:17→20:30)
--- NOTE | 2019-04-15 09:30 | NUR ---
RADIOLOGY DEPT., CHEST X-RAY DONE.-P.DYE
[2019-04-15] MEDS: Gabapentin 300 MG/6 ML Soln GT SCH ×3 (09:32→16:30)
--- NOTE | 2019-04-15 11:41 | NUR ---
*-* INSURANCE *-* ALL CLINICAL AND REVIEWS HAVE BEEN FAXED TO: [employer] FAX ALL CLINICALS TO: [phone]
--- NOTE | 2019-04-15 11:50 | Diagnostic Imaging Report ---
Indication: Shortness of breath Technique: XRAY Chest 1v Comparison: 04/13/2019 Findings: Stable cardiomegaly. Atherosclerotic calcifications again noted in the aorta. There is increased haziness of the pulmonary vascularity compared to one day prior. Patchy bibasilar opacities again noted. Suggestion of mitral annular calcifications. There is osteopenia and degenerative change of the spine. Unchanged dislocation of the right shoulder is again noted Impression: Increased haziness of the pulmonary vascularity suggesting worsening congestive changes/edema. Bibasilar opacities which may related to atelectasis and/or pneumonia. Unchanged dislocation of the right shoulder, possibly chronic.
[2019-04-15 12:00] VITALS: BP 137/90
[2019-04-15] MEDS: Cefepime HCl 1 GM in D5W 55 ML IVPB SCH (15:26)
[2019-04-15 16:00] VITALS: BP 131/89
--- NOTE | 2019-04-15 19:30 | NUR ---
NURSE NOTES: RECEIVED PATIENT LYING IN BED, AWAKE, NON VERBAL, ALL NEEDS ANTICIPATED AND MET BY NURSING STAFF. NO SIGNS AND SYMPTOMS OF ACUTE CARDIO RESPIRATORY DISTRESS/SHORTNESS OF BREATH. ABDOMEN ROUND, AUDIBLE BOWEL SOUNDS IN ALL QUADRANTS, TOLERATING G TUBE FEEDING AT 45ML/HR, NO GASTRIC RESIDUAL ASPIRATED, NO N/V/D. AN CATHETER INTACT/PATENT, DRAINING YELLOW URINE VIA GRAVITY, TUBING ANCHORED TO THIGH. SIDE RAILS UP X3/BED IN LOWEST POSITION FOR SAFETY/FREQUENT ROUNDING FOR SAFETY/NEEDS. NAD.
--- NOTE | 2019-04-15 19:55 | NUR ---
HAND-OFF: Report given to Tana MOHAN.
[2019-04-15 20:00] VITALS: BP 98/67
--- NOTE | 2019-04-15 20:21 | NUR ---
CASE MANAGEMENT: REVIEW SI: MALFUNCTION OF G-TUBE . DEHYDRATION . HYPOVOLEMIA . ACUTE RENAL FAILURE G-TUBE REPLACEMENT 04/13 2D ECHO PENDING T 98.5 HR 76 RR 19 BP 96% ROOM AIR BUN 51 CR 1.8 GLUCOSE 247 AST 43 ALK PHOS 184 TSH 13.616 IS: CEFEPIME IV Q24HR NS IVF 2,000ML X1 NS IVF @ 75ML/HR NOVOLOG SUBQ ACHS HEPARIN SUBQ Q12HR NORCO 5/325 PO Q4HR PRN MED/SURG UNIT STATUS DCP: PATIENT IS FROM [facility]
--- NOTE | 2019-04-15 21:00 | NUR ---
NURSE NOTES: BLOOD GLUCOSE LEVEL MONITORED VIA GLUCOMETER WITH RESULT 104MG/DL, ASYMPTOMATIC, NO INSULIN SLIDING SCALE COVERAGE ADM.
--- NOTE | 2019-04-15 23:15 | Progress Note ---
DATE: 04/15/2019 INTERNAL MEDICINE PROGRESS NOTE SUBJECTIVE: The patient has less secretions. She has episodes of agitation. She has trouble sleeping ____. Urine cultures are notable for normal dada. Urine culture has gram-negative bacillus. OBJECTIVE: GENERAL: . LUNGS: Good breath sounds with few rhonchi. HEART: Regular rhythm and rate. Normal S1 and S2. ABDOMEN: Soft. G-tube intact. EXTREMITIES: Contractures and trace edema. LABORATORY DATA: Chest x-ray today revealed bibasilar opacities and some increased edema with chronic right shoulder dislocation. White count 7 and hemoglobin 11.5. Potassium 3.9, sodium 142, bicarbonate 29, BUN 51, creatinine 1.8, TSH is 13.6, and glucose 247. IMPRESSION: 1. Healthcare acquired aspiration pneumonia. 2. Pulmonary venous congestion/acute on chronic diastolic congestive heart failure. 3. Urinary tract infection. 4. Hypothyroidism. PLAN: 1. Discontinue intravenous fluids. 2. Discontinue vancomycin. 3. Continue cefepime, add Flagyl. 4. Respiratory hygiene. 5. Thyroid replacement. 6. Insulin coverage by sliding scale. Kavon Peña M.D. DR: TITA JOB#: [id number] CC:
[2019-04-16] VITALS: BP 111/90
[2019-04-16] MEDS: metroNIDAZOLE 500mg tab GT SCH ×4 (00:45→22:05)
[2019-04-16] MEDS: Albuterol/Ipratropium 3ml neb HHN SCH ×4 (01:23→19:48)
[2019-04-16] MEDS: Levemir Flexpen SUBQ SCH ×3 (01:33→17:14)
[2019-04-16 04:00] VITALS: BP 134/92
[2019-04-16] MEDS: NovoLOG Insulin Flexpen SUBQ SCH ×4 (06:05→20:15)
--- NOTE | 2019-04-16 06:13 | NUR ---
NURSE NOTES: RESTED WELL, NO SIGNIFICANT CHANGE OF CONDITION NOTED THROUGHOUT THE NIGHT. SAFETY MAINTAINED. NAD.
--- NOTE | 2019-04-16 07:54 | NUR ---
NURSE NOTES: Pt resting in bed. A/O x 1, calm, non-Verbal, no SOB and discomfort noted. GTube in place, tolerating feeding well. no residual. HOB elevated >[address], clean yellow urine. bed in low position, bed alarm on. fall precaution maintained. will continue to monitor. Addendum: 04/16/19 at 1737 by Smitha Bush RN GTube dressing changed. Redness/rash left upper thigh, dressing on.
[2019-04-16 08:00] VITALS: BP 100/42
[2019-04-16] MEDS: Gabapentin 300 MG/6 ML Soln GT SCH ×3 (09:02→17:13)
[2019-04-16] MEDS: Heparin 5000 units/ml inj SUBQ SCH ×2 (09:05→20:14)
[2019-04-16] MEDS: HYDROcodone/Acetamin 5/325 tab ORAL PRN ×2 (09:06→20:13)
--- NOTE | 2019-04-16 09:37 | NUR ---
RD ASSESSMENT & RECOMMENDATIONS SEE CARE ACTIVITY FOR COMPLETE ASSESSMENT DAILY ESTIMATED NEEDS: Needs based on DM, Renal 59.7kg 25-30 kcals/kg 4868-7427 total kcals 1-1.5 g protein/kg 60-90 g total protein 25-30 mL/kg 6443-2012 total fluid mLs NUTRITION DIAGNOSIS: 1) Altered nutrition related lab values r/t clinical status, DM as evidenced by pt w/ elev BUN (51), Cr (1.8), K (5.3-> now wnl), & elev BG (POC 104-244). 2) Swallowing difficulty r/t dysphagia as evidenced by pt is GT dep. CURRENT TF:Glucerna 1.2 @45ml /hr x22 hrs PO DIET RECOMMENDATIONS: METER REPAIR SHOP SUPERVISOR eval prior to oral grat ENTERAL NUTRITION RECOMMENDATIONS: Glucerna 1.2 @ 60m/hr x 22 hrs (hold 1 hr before and after Synthroid) to provide 1320ml, 1584kcal, 79g prot, 1062ml free water * Rec to increase goal rate to 60ml/hr x 22 hrs * Hold 1 hr before and after Synthroid med * HOB over 30 degrees/ water flush per MD With consistently elev K, rec TF change to Nepro @ 40ml/hr x 22 hrs to provide 880ml, 1584kcal, 71g prot -> start Nepro @20ml/hr for 6 hrs, -> Advance 10ml q 4-6 hrs as tolerated to goal rate. ADDITIONAL RECOMMENDATIONS: 1) Monitor lytes closely, need for TF change (elev K upon adm, but slightly hemolyzed per EMR) 2) METER REPAIR SHOP SUPERVISOR if pt is appropriate for oral grat 3) F/up w/ wound eval (photo of L thigh) 4) Calibrate bed scale for accurate wt EMR WT: 160 lbs BED WT: 131.4 lbs
[2019-04-16 12:00] VITALS: BP 90/71
[2019-04-16] MEDS: Cefepime HCl 1 GM in D5W 55 ML IVPB SCH (15:34)
[2019-04-16 16:00] VITALS: BP 104/52
--- NOTE | 2019-04-16 19:37 | NUR ---
NURSE NOTES: Pt received in bed, eyes open, nonverbal, gtube feeding running, no signs of distress, head of bed elevated, will continue to monitor.
[2019-04-16 20:00] VITALS: BP 125/67
--- NOTE | 2019-04-16 20:00 | Consultation ---
DATE OF CONSULTATION: 04/16/2019 PULMONARY CONSULTATION CONSULTING PHYSICIAN: Navjot Reddy M.D. REFERRING PHYSICIAN: Kavon Peña M.D. REASON FOR CONSULTATION: Pneumonia. HISTORY OF PRESENT ILLNESS: This is a 78-year-old female, who is a custodial resident. She has a history of dementia. She has a chronic G-tube. The patient was found to have pulmonary congestion and is brought to the hospital. An x-ray of the chest was reviewed and she was found to have infiltrates. She is admitted to the hospital and diagnosed with pneumonia, likely aspiration. PAST MEDICAL HISTORY: CVA, clogged G-tube, hyperlipidemia, osteoarthrosis, DJD, heart failure, and diabetes mellitus. MEDICATIONS: Reviewed and reconciled in the chart. ALLERGIES: None. SOCIAL HISTORY: No history of alcohol or tobacco usage. PHYSICAL EXAMINATION: GENERAL: A debilitated elderly female. HEENT: Unremarkable. LUNGS: Clear breath sounds bilaterally. HEART: Normal heart sounds. ABDOMEN: Soft. G-tube is in place. EXTREMITIES: There is no edema. LABORATORY DATA: Lab testing shows white count 7000. Hemoglobin is normal. Creatinine 1.8. An x-ray of the chest obtained yesterday shows dislocation of the right shoulder, which is chronic, bibasilar opacity suspicious for pneumonia. IMPRESSION: 1. Pneumonia likely aspiration. 2. Chronic G-tube. 3. CVA. 4. Chronic right shoulder dislocation. DISCUSSION: 1. Continue antibiotics, broad-spectrum. 2. Discontinue metformin. 3. Insulin sliding scale. 4. DVT and GI prophylaxis. 5. We will follow carefully. 6. Ordered respiratory hygiene. Navjot Reddy M.D. DR: ANDREA JOB#: [id number] CC:
--- NOTE | 2019-04-16 22:00 | Progress Note ---
DATE: 04/16/2019 CARDIOLOGY PROGRESS NOTE SUBJECTIVE: The patient is more comfortable. Less agitation. No respiratory distress and decreased congestion. Sputum cultures positive for gram-negative rods. Urine culture is positive for Providencia and Proteus. OBJECTIVE: HEENT: Oral secretions. LUNGS: Bilateral breath sounds with few rhonchi. HEART: Regular rhythm and rate. Normal S1, S2. A 1/6 systolic murmur at apex. ABDOMEN: Soft. G-tube intact. EXTREMITIES: No edema. Contractures noted. IMPRESSION: 1. Aspiration pneumonia. 2. Polymicrobial urinary tract infection. 3. Dehydration. 4. Hypovolemia. 5. Acute on chronic renal failure. 6. Diabetes mellitus with hyperglycemia. 7. Hypothyroidism. 8. Mild protein-calorie malnutrition. 9. Dysphagia with G-tube. PLAN: 1. Continue cefepime and Flagyl. 2. Await final cultures of the sputum. 3. Respiratory hygiene. 4. DVT prophylaxis. 5. Nutrition by feeding tube. 6. Recheck laboratory studies and adjust IV fluids. Kavon Peña M.D. DR: RICHY JOB#: [id number] CC:
[2019-04-17] VITALS: BP 110/57
[2019-04-17] MEDS: Albuterol/Ipratropium 3ml neb HHN SCH ×4 (01:27→19:47)
[2019-04-17 04:00] VITALS: BP 113/45
[2019-04-17] MEDS: metroNIDAZOLE 500mg tab GT SCH (05:29)
[2019-04-17] MEDS: NovoLOG Insulin Flexpen SUBQ SCH ×4 (06:24→20:23)
--- NOTE | 2019-04-17 07:23 | NUR ---
HAND-OFF: Report given to FELY Brewster.
[2019-04-17] MEDS: HYDROcodone/Acetamin 5/325 tab ORAL PRN ×3 (07:32→21:51)
--- NOTE | 2019-04-17 07:56 | NUR ---
NURSE NOTES: PT AXOX1, OPENS EYES SPONTANEOUSLY. PT IS MOANING, SQUIRMING. FLACC PAIN SCALE 6/10. RN ADMINISTERED PRN NORCO 5/325MG ORDERED. PT IN HIGH FOLWER'S POSITION WITH HOB ELEVATED. BED IN LOWEST POSITION WITH BEDSIDE RAILS X3 RAISED. AN CATH DRAINING CLEAR YELLOW URINE BY GRAVITY. 10CC RESIDUAL NOTED FROM GTUBE FEEDING. WILL CONTINUE TO MONITOR.
[2019-04-17 08:00] VITALS: BP 108/63
[2019-04-17 08:09] LABS: BASOPHILS % (AUTO) 0.5 % (0.0-2.0); HEMATOCRIT 35.7 % (37.0-47.0); HEMOGLOBIN 10.9 G/DL (12.0-16.0); LYMPHOCYTES % (AUTO) 28.3 % (20.0-45.0); MEAN CORPUSCULAR VOLUME 88 FL (80-99); MONOCYTES % (AUTO) 9.3 % (1.0-10.0); NEUTROPHILS % (AUTO) 56.9 % (45.0-75.0); PLATELET COUNT 174 K/UL (150-450); RED BLOOD COUNT 4.07 M/UL (4.20-5.40); RED CELL DISTRIBUTION WIDTH 15.6 % (11.6-14.8); WHITE BLOOD COUNT 7.7 K/UL (4.8-10.8)
[2019-04-17 08:29] LABS: ALANINE AMINOTRANSFERASE 43 U/L (12-78); ALBUMIN 2.9 G/DL (3.4-5.0); ALBUMIN/GLOBULIN RATIO 0.7 (1.0-2.7); ALKALINE PHOSPHATASE 159 U/L (46-116); ANION GAP 7 mmol/L (5-15); ASPARTATE AMINO TRANSFERASE 31 U/L (15-37); BILIRUBIN,TOTAL 0.4 MG/DL (0.2-1.0); BLOOD UREA NITROGEN 43 mg/dL (7-18); CALCIUM 9.3 MG/DL (8.5-10.1); CARBON DIOXIDE 26 MMOL/L (21-32); CHLORIDE 111 MMOL/L (98-107); CREATININE 1.8 MG/DL (0.55-1.30); POTASSIUM 5.1 MMOL/L (3.5-5.1); SODIUM 144 MMOL/L (136-145)
[2019-04-17] MEDS: Gabapentin 300 MG/6 ML Soln GT SCH ×3 (09:26→17:06)
[2019-04-17] MEDS: Levemir Flexpen SUBQ SCH ×2 (09:27→17:08)
[2019-04-17] MEDS: Heparin 5000 units/ml inj SUBQ SCH ×2 (09:39→20:22)
--- NOTE | 2019-04-17 11:53 | Pulmonology Progress Note ---
Assessment/Plan Assessment/Plan IMPRESSION: 1. Pneumonia likely aspiration. 2. Chronic G-tube. 3. CVA. 4. Chronic right shoulder dislocation. DISCUSSION: 1. Continue antibiotics, broad-spectrum. 2. Discontinue metformin. 3. Insulin sliding scale. 4. DVT and GI prophylaxis. 5. We will follow carefully. 6. Ordered respiratory hygiene. Subjective Interval Events: Low grade fever Constitutional: Reports: no symptoms HEENT: Repors: no symptoms Respiratory: Reports: no symptoms Cardiovascular: Reports: no symptoms Gastrointestinal/Abdominal: Reports: no symptoms Allergies: Coded Allergies: No Known Allergies (Verified , 12/31/09) Objective Last 24 Hour Vital Signs Date Time Temp Pulse Resp B/P (MAP) Pulse Ox O2 Delivery O2 Flow Rate FiO2 04/17/19 08:00 100.0 85 16 108/63 (78) 95 04/17/19 07:56 90 19 99 Room Air 21 04/17/19 07:45 85 16 95 Room Air 04/17/19 04:00 97.7 79 17 113/45 (67) 98 04/17/19 01:29 76 18 99 Room Air 21 04/17/19 01:18 72 18 96 Room Air 04/17/19 00:00 98.2 79 18 110/57 (74) 98 04/16/19 21:00 Room Air 04/16/19 20:00 98.3 87 17 125/67 (86) 100 04/16/19 19:49 82 18 99 Room Air 21 04/16/19 19:39 79 18 97 Room Air 04/16/19 16:00 98.8 81 20 104/52 (69) 82 04/16/19 12:41 76 16 99 Room Air 04/16/19 12:31 75 16 95 Room Air 04/16/19 12:00 97.0 81 20 90/71 (77) 96 Intake and Output 04/16/19 04/17/19 19:00 07:00 Output Total 1250 ml 300 ml Balance -1250 ml -300 ml Output Urine Total 1250 ml 300 ml # Bowel Movements 2 2 General Appearance: no acute distress HEENT: normocephalic Respiratory/Chest: chest wall non-tender, lungs clear Cardiovascular: normal peripheral pulses, normal rate Abdomen: normal bowel sounds Laboratory Tests 04/17/19 05:25: White Blood Count 7.7, Red Blood Count 4.07L, Hemoglobin 10.9L, Hematocrit 35.7L , Mean Corpuscular Volume 88, Mean Corpuscular Hemoglobin 26.8L, Mean Corpuscular Hemoglobin Concent 30.5L, Red Cell Distribution Width 15.6H, Platelet Count 174, Mean Platelet Volume 7.0, Neutrophils (%) (Auto) 56.9, Lymphocytes (%) (Auto) 28.3, Monocytes (%) (Auto) 9.3, Eosinophils (%) (Auto) 5.0H, Basophils (%) (Auto) 0.5, Sodium Level 144, Potassium Level 5.1, Chloride Level 111H, Carbon Dioxide Level 26, Anion Gap 7, Blood Urea Nitrogen 43H, Creatinine 1.8H, Estimat Glomerular Filtration Rate , Glucose Level 217H, Calcium Level 9.3, Magnesium Level 2.8H, Total Bilirubin 0.4, Aspartate Amino Transf (AST/SGOT) 31, Alanine Aminotransferase (ALT/SGPT) 43, Alkaline Phosphatase 159H, Total Protein 7.3, Albumin 2.9L, Globulin 4.4, Albumin/ Globulin Ratio 0.7L Current Medications Medications (Trade) Dose Ordered Sig/Aaron Route PRN Reason Start Time Stop Time Status Last Admin Dose Admin Acetaminophen/ Hydrocodone Bitart ([place] 5/325) 1 tab Q4H PRN ORAL Moderate Pain (Pain Scale 4-6) 04/15/19 08:00 04/22/19 07:59 04/17/19 07:32 Albuterol/ Ipratropium (Albuterol/ Ipratropium) 3 ml Q6HRT HHN 04/13/19 21:00 04/18/19 20:59 04/17/19 07:45 Atorvastatin Calcium (Lipitor) 10 mg BEDTIME GT 04/16/19 21:00 05/16/19 20:59 04/16/19 20:11 Ceftriaxone Sodium 1 gm/ Dextrose 55 ml @ 110 mls/hr Q24H IVPB 04/17/19 12:00 04/24/19 11:59 Dextrose (Dextrose 50%) 25 ml Q30M PRN IV Hypoglycemia 04/14/19 01:30 05/14/19 01:29 Dextrose (Dextrose 50%) 50 ml Q30M PRN IV Hypoglycemia 04/14/19 01:30 05/14/19 01:29 Gabapentin (Neurontin) 100 mg THREE TIMES A DAY GT 04/14/19 09:00 05/14/19 08:59 04/17/19 09:26 Heparin Sodium (Porcine) (Heparin 5000 units/ml) 5,000 units EVERY 12 HOURS SUBQ 04/13/19 21:00 05/13/19 20:59 04/17/19 09:39 Insulin Aspart (NovoLOG) BEFORE MEALS AND HS SUBQ 04/14/19 06:30 05/14/19 06:29 04/17/19 06:24 Insulin Detemir (Levemir) 10 units BID SUBQ 04/15/19 22:45 05/15/19 22:44 04/17/19 09:27 Levothyroxine Sodium (Synthroid) 50 mcg DAILY@0630 GT 04/16/19 06:30 05/16/19 06:29 04/17/19 06:22 Navjot Reddy MD Apr 17, 2019 11:53
[2019-04-17 12:00] VITALS: BP 155/76
[2019-04-17] MEDS: cefTRIAXone 1 GM in D5W 55 ML IVPB SCH (12:11)
--- NOTE | 2019-04-17 14:55 | Cardiology Report ---
APPROVED REPORT EKG Measurement Heart [id number] Unusual P axis and short LA, probable junctional rhythm Possible Anterior infarct, age undetermined Abnormal ECG
--- NOTE | 2019-04-17 15:53 | NUR ---
NURSE NOTES: PT RESTING IN BED, IN NO APPARENT DISTRESS AT THIS TIME. TOLERATING GTUBE FEEDINGS. IN NO APPARENT DISTRESS AT THIS TIME. WILL CONTINUE TO MONITOR.
[2019-04-17 16:00] VITALS: BP 117/62
--- NOTE | 2019-04-17 19:33 | NUR ---
NURSE NOTES: Pt received in bed awake, nonverbal, no signs of distress or pain, gtube feeding running, perera catheter in place draining urine, head of bed elevated, will continue to monitor.
--- NOTE | 2019-04-17 19:35 | NUR ---
HAND-OFF: Report given to Enzo JOSEPH RN.
[2019-04-17 20:00] VITALS: BP 133/69
[2019-04-18] VITALS: BP 108/60
--- NOTE | 2019-04-18 00:15 | Progress Note ---
DATE: 04/17/2019 CARDIOLOGY AND INTERNAL MEDICINE PROGRESS NOTE SUBJECTIVE: The patient has less congestion. OBJECTIVE: VITAL SIGNS: T-max of 100, blood pressure 108/63, heart rate 85, and respiratory rate 16. LUNGS: Few rhonchi. HEART: Regular rhythm and rate. Normal S1 and S2. ABDOMEN: Soft. G-tube intact. EXTREMITIES: No edema. LABORATORY DATA: White count 7.7 and hemoglobin 10.9. Sodium 144, potassium 5.1, bicarbonate 26, BUN 43, and creatinine 1.8. Albumin 2.9. IMPRESSION: 1. Polymicrobial urinary tract infection. 2. Recovered sepsis. 3. Proteus pneumonia. 4. G-tube dependent due to dysphagia. 5. Cerebrovascular disease with dementia. 6. Diabetes mellitus. 7. Chronic kidney disease. 8. Hypothyroidism. PLAN: 1. Antimicrobials. 2. Respiratory hygiene. 3. DVT prophylaxis. 4. Bronchodilators as needed. 5. Nutrition by feeding tube. 6. Avoid metformin in view of chronic kidney disease. 7. Thyroid replacement. Kavon Peña M.D. DR: KEN JOB#: [id number] CC:
[2019-04-18] MEDS: Albuterol/Ipratropium 3ml neb HHN SCH ×4 (00:35→19:40)
[2019-04-18 04:00] VITALS: BP 95/47
[2019-04-18] MEDS: NovoLOG Insulin Flexpen SUBQ SCH ×4 (06:22→21:00)
--- NOTE | 2019-04-18 07:10 | NUR ---
NURSE NOTES: received patient in bed awake, nonverbal, no signs of distress, gtube feeding stop will resume later, on fall and aspiration precaution ,perera catheter in place draining urine, head of bed elevated, will continue to monitor patient condition tish andrade
--- NOTE | 2019-04-18 07:26 | NUR ---
HAND-OFF: Report given to FELY Hewitt.
[2019-04-18 08:00] VITALS: BP 121/82
[2019-04-18] MEDS: Heparin 5000 units/ml inj SUBQ SCH ×2 (08:10→21:36)
[2019-04-18] MEDS: Levemir Flexpen SUBQ SCH ×2 (08:11→17:37)
[2019-04-18] MEDS: Gabapentin 300 MG/6 ML Soln GT SCH ×3 (08:54→17:36)
--- NOTE | 2019-04-18 09:08 | Pulmonology Progress Note ---
Assessment/Plan Assessment/Plan IMPRESSION: 1. Pneumonia likely aspiration. 2. Chronic G-tube. 3. CVA. 4. Chronic right shoulder dislocation. DISCUSSION: 1. Continue antibiotics, broad-spectrum. 2. Discontinued metformin. 3. Insulin sliding scale. 4. DVT and GI prophylaxis. 5. We will follow carefully. 6. Ordered respiratory hygiene. Subjective Interval Events: none new Constitutional: Reports: no symptoms HEENT: Repors: no symptoms Respiratory: Reports: no symptoms Cardiovascular: Reports: no symptoms Gastrointestinal/Abdominal: Reports: no symptoms Genitourinary: Reports: no symptoms Allergies: Coded Allergies: No Known Allergies (Verified , 12/31/09) Objective Last 24 Hour Vital Signs Date Time Temp Pulse Resp B/P (MAP) Pulse Ox O2 Delivery O2 Flow Rate FiO2 04/18/19 08:12 73 18 98 Room Air 21 04/18/19 08:00 98.9 72 19 121/82 (95) 98 04/18/19 07:53 70 18 97 Room Air 04/18/19 04:00 96.4 70 21 95/47 (63) 95 04/18/19 00:42 90 18 100 Room Air 04/18/19 00:35 74 18 97 Room Air 04/18/19 00:00 97.8 85 20 108/60 (76) 95 04/17/19 22:21 98.6 04/17/19 21:00 Room Air 04/17/19 20:00 98.6 72 21 133/69 (90) 95 04/17/19 19:55 88 18 99 Room Air 04/17/19 19:47 71 18 97 Room Air 04/17/19 16:00 98.0 71 18 117/62 (80) 93 04/17/19 13:10 92 18 100 Room Air 04/17/19 12:57 89 18 96 Room Air 04/17/19 12:00 95.5 91 16 155/76 (102) 96 Intake and Output 04/17/19 04/18/19 19:00 07:00 Intake Total 1320 ml 95 ml Output Total 500 ml Balance 1320 ml -405 ml Intake Free Water 220 ml 50 ml IV Total 110 ml Tube Feeding 990 ml 45 ml Output Urine Total 500 ml # Voids 2 # Bowel Movements 1 1 General Appearance: no acute distress HEENT: normocephalic Respiratory/Chest: chest wall non-tender Cardiovascular: normal peripheral pulses, normal rate Abdomen: normal bowel sounds Current Medications Medications (Trade) Dose Ordered Sig/Aaron Route PRN Reason Start Time Stop Time Status Last Admin Dose Admin Acetaminophen/ Hydrocodone Bitart ([place] 5/325) 1 tab Q4H PRN ORAL Moderate Pain (Pain Scale 4-6) 04/15/19 08:00 04/22/19 07:59 04/17/19 21:51 Albuterol/ Ipratropium (Albuterol/ Ipratropium) 3 ml Q6HRT HHN 04/13/19 21:00 04/18/19 20:59 04/18/19 07:53 Atorvastatin Calcium (Lipitor) 10 mg BEDTIME GT 04/16/19 21:00 05/16/19 20:59 04/17/19 20:21 Ceftriaxone Sodium 1 gm/ Dextrose 55 ml @ 110 mls/hr Q24H IVPB 04/17/19 12:00 04/24/19 11:59 04/17/19 12:11 Dextrose (Dextrose 50%) 25 ml Q30M PRN IV Hypoglycemia 04/14/19 01:30 05/14/19 01:29 Dextrose (Dextrose 50%) 50 ml Q30M PRN IV Hypoglycemia 04/14/19 01:30 05/14/19 01:29 Gabapentin (Neurontin) 100 mg THREE TIMES A DAY GT 04/14/19 09:00 05/14/19 08:59 04/18/19 08:54 Heparin Sodium (Porcine) (Heparin 5000 units/ml) 5,000 units EVERY 12 HOURS SUBQ 04/13/19 21:00 05/13/19 20:59 04/18/19 08:10 Insulin Aspart (NovoLOG) BEFORE MEALS AND HS SUBQ 04/14/19 06:30 05/14/19 06:29 04/18/19 06:22 Insulin Detemir (Levemir) 10 units BID SUBQ 04/15/19 22:45 05/15/19 22:44 04/18/19 08:11 Levothyroxine Sodium (Synthroid) 50 mcg DAILY@0630 GT 04/16/19 06:30 05/16/19 06:29 04/18/19 06:19 Navjot Reddy MD Apr 18, 2019 09:08
[2019-04-18 12:00] VITALS: BP 118/86
[2019-04-18] MEDS: cefTRIAXone 1 GM in D5W 55 ML IVPB SCH (12:07)
--- NOTE | 2019-04-18 13:29 | Cardiology Report ---
APPROVED REPORT EXAM: Two-dimensional and M-mode echocardiogram with Doppler and color Doppler. INDICATION Congestive Heart Failure M-Mode DIMENSIONS IVSd1.0 (0.7-1.1cm)Left Atrium (MM)4.2 (1.6-4.0cm) LVDd5.4 (3.5-5.6cm)Aortic Root2.4 (2.0-3.7cm) PWd1.0 (0.7-1.1cm)Aortic Cusp Exc.1.7 (1.5-2.0cm) LVDs4.0 (2.5-4.0cm) PWs1.3 cm Normal left ventricular chamber size, systolic function and wall motion to extent visualized. Left ventricular ejection fraction estimated to be 55%. No evidence of left ventricular hypertrophy. No evidence of pericardial effusion. All other cardiac chamber sizes are within normal limits. Focal aortic valve sclerosis with adequate cusp excursion. Thickened mitral valve leaflets with normal excursion. Mitral annulus and aortic root calcification. Pulmonic valve not well visualized. Normal tricuspid valve structure. IVC not obtainable due to GI tube. A color flow and spectral Doppler study was performed and revealed: Trace aortic regurgitation. Mild mitral regurgitation. Mitral diastolic velocities suggest reduced left ventricular relaxation c/w mild LV diastolic dysfunction (Grade I). Mild tricuspid regurgitation. Tricuspid systolic velocities suggests peak right ventricular systolic pressure of 39 mmHg, consistent with mild pulmonary hypertension. Pulmonic regurgitation present.
[2019-04-18] MEDS: HYDROcodone/Acetamin 5/325 tab ORAL PRN (14:05)
[2019-04-18 16:00] VITALS: BP 121/80
--- NOTE | 2019-04-18 16:52 | NUR ---
DISCHARGE PLANNING DISCHARGE ORDER NOTED Patient has been accepted to; [facility] [address] [place] [address] Bed:16-B Skilled [phone] for Nurse to Nurse report [facility] ETA for transportation: 17:45
--- NOTE | 2019-04-18 18:17 | NUR ---
NURSE NOTES With order discharge back to SNF ,left message to Anastasiya Ugalde, regarding patient plan of care discharged back to SNF [address] Peña regarding perera cath with order dc perera cath [phone] paged and left message to Dr Peña regarding discharge medication , awaiting for his call 1909 endorse to Ms VILLAR for continuity of care .tish andrade
[2019-04-18] MEDS ORDERED: ATORVASTATIN CA20 MG ORAL (19:06)
[2019-04-18] MEDS ORDERED: HEPARIN SO5000 UNIT2 SUBQ (19:07)
[2019-04-18] MEDS ORDERED: GABAPENTIN100 MG GT (19:07)
[2019-04-18] MEDS ORDERED: NORCO 5-325 TA1 EACH ORAL (19:08)
[2019-04-18] MEDS ORDERED: NOVOLOG100 UNIT/5 (19:09)
[2019-04-18] MEDS ORDERED: LEVEMIR100 UNIT/1 SUBQ (19:10)
--- NOTE | 2019-04-18 19:10 | NUR ---
NURSE NOTES: Received report from Nora Herrera RN. Patient laying on the bed nonverbal with spontaneous eye opening that able to track. Ready to be discharged with all paperwork placed by RN, No IV, G-tube feeding stopped, and perera dc'd. Patient breathing unlabored and evenly without distress, discomfort, or sob noted. No signs of pain noted at this time. Bed placed at the lowest with alarm, brake, and side rails up x 3 for safety measure. Fall and aspiration precaution noted. HOB elevated. Call light placed within reach. Will continue to monitor and provide care as ordered.
[2019-04-18] MEDS ORDERED: SYNTHROID50 MCG GT (19:11)
[2019-04-18] MEDS ORDERED: GABAPENTIN100 MG ORAL (19:37)
[2019-04-18] MEDS ORDERED: LEVAQUIN500 MG ORAL (19:37)
[2019-04-18] MEDS ORDERED: ATORVASTATIN CA10 MG ORAL (19:38)
[2019-04-18] MEDS ORDERED: LEVEMIR FL100 UNIT/1 SUBQ (19:41)
--- NOTE | 2019-04-18 20:43 | NUR ---
NURSE NOTES: Gave report to FELY Loya in [facility]. Called [facility] to make appt. ETA within 45 minutes per Dalia, [facility] personnel.
--- NOTE | 2019-04-18 21:10 | NUR ---
NURSE NOTES: Patient's blood sugar reading 54mg/dl at 2109. Inserted new 24g IV on the right hand to give 50 ml of Dextrose 50%. Patient tolerated the procedure well. Gave dextrose 50% at 2135 and rechecked the blood sugar at 2150, reading 198 mg/dl. Transportation arrived to the unit since 2114. Sent paper with detail to the CVP. Patient in stable condition. Will continue to monitor and provide care as ordered.
--- NOTE | 2019-04-18 21:58 | NUR ---
NURSE NOTES: Gave report to [facility] personnel. Patient in stable condition with vital signs reading 125/74 RR 18 HR 75 O2 95% on room air. Patient breathing unlabored and evenly without signs of distress, discomfort, or sob. No complains of pain noted at this time. Patient's new IV on the right hand was dc'd, removed ID, and G-tube intact with clean dressing around. Belonging's list was checked that patient had no belongings. Patient was unable to sign the paper. Patient left the room at 2158. All required medical documents/ education papers were sent with the patient to [email or web address].
--- NOTE | 2019-04-19 01:45 | Progress Note ---
DATE: 04/18/2019 INTERNAL MEDICINE PROGRESS NOTE The patient is seen and evaluated and assessed for appropriate discharge to snf facility. Medications were adjusted for discharge and discussed with nursing on staff. The patient has recovered adequately from acute infection to complete recovery at a lower level of care. Please refer to discharge summary for additional details. Kavon Peña M.D. DR: GOVIND JOB#: [id number] CC:
[2019-04-19] MEDS ORDERED: Levemir Flexpen SUBQ SCH (09:00)
--- NOTE | 2019-04-19 09:10 | Discharge Summary ---
Discharge Summary Discharge Summary _ DATE OF ADMISSION: 04/13/2019 DATE OF DISCHARGE: 04/18/2019 DISCHARGED BY: REASON FOR ADMISSION: 78 years old female, resident of senior care facility, with past medical history of advanced cerebrovascular disease with dementia, dysphagia, G-tube feeding, hyperlipidemia, osteoarthritis, degenerative disc disease, hypertensive heart disease, diastolic dysfunction with history of congestive heart failure, insulin requiring diabetes mellitus, chronic kidney disease due to diabetic nephropathy, was sent for emergency room for evaluation Patient noted to be congested, and her G-tube was clogged. Chest x-ray revealed evidence of pulmonary infiltrates, concerning for pneumonia. Persistent pulmonary vascular congestion. Abdominal x-ray revealed nonobstructive bowel gas pattern, patchy left basilar airspace opacity. G-tube in correct position. Multilevel degenerative changes of the visualized spine. Laboratory work-up revealed no leukocytosis, stable hemoglobin and hematocrit. BUN 59, creatinine 1.6. Troponin negative. Urinalysis revealed moderate bacteria, +3 protein. G-tube was clogged and was replaced in the emergency department. Patient started on IV antibiotics for probable pneumonia and UTI and admitted for further management. CONSULTANTS: pulmonary Dr. Reddy [facility] COURSE: Patient admitted to medical surgical floor. Patient started on empiric antibiotics. Supplemental oxygen provided as needed to keep pulse oximetry above 92%. Handheld nebulizing therapy with bronchodilator provided as needed. Strict aspiration precaution maintained. Tube feeding formula provided as per registered public health nurse recommendation along with protein supplements. Supplemental oxygen titrated to keep pulse oximetry above 92%. Bronchodilator treatment provided as needed. Prior to discharge pulse oximetry stable on room air. DVT prophylaxis provided. Urine culture revealed Providencia and Proteus. Blood cultures were negative. Sputum revealed Proteus. Antibiotic regimen optimized based on culture. Patient will need to complete antibiotic regimen at the facility. Echocardiogram revealed ejection fraction of 55% with no evidence of left ventricular hypertrophy. No evidence of pericardial effusion. No evidence of wall motion abnormality. Right ventricular systolic pressure of 39 consistent with a mild pulmonary hypertension. Renal parameters and electrolytes were closely monitored. Electrolytes corrected as needed. Nephrotoxins were avoided. Creatinine remained at the baseline. Patient had chronic kidney disease, likely due to diabetic nephropathy. AT this point I do not blood sugar was managed with long-acting insulin and sliding scale of short acting insulin. Metformin was on hold due to elevated renal function. GI prophylaxis provided. Noted elevated TSH 13.6. Dose of levothyroxine was up-titrated. Patient clinically stabilized and was ready for discharge back to senior care facility for continuation of care. Complete antibiotic course as outlined in medication reconciliation list. FINAL DIAGNOSES: Proteus pneumonia, likely aspiration Polymicrobial urinary tract infection with Proteus and Providentia G-tube dysfunction, s/p replacement Advanced cerebrovascular disease with dementia Dysphagia, G-tube dependency Dehydration Hypovolemia Chronic kidney disease Hypothyroidism Protein calorie malnutrition DISCHARGE MEDICATIONS: See Medication Reconciliation list. DISCHARGE INSTRUCTIONS: Patient was discharged to the senior care facility. Follow up with medical doctor at the facility. I have been assigned to dictate discharge summary for this account. I was not involved in the patient's management. Chica Brizuela NP Apr 19, 2019 09:10
--- NOTE | 2019-04-19 09:52 | NUR ---
*-* INSURANCE *-* UPDATED CLINICALS AND DISCHARGE SUMMARY HAVE BEEN FAXED TO: [employer] FAX ALL CLINICALS TO: [phone]
[2019-04-22] MEDS ORDERED: Levofloxacin 500mg tab GT SCH (12:00)
== END 2019-04-18 21:58 | DRG 137 ==
LOC: EDBD 12:38 → EMR 13:30 → 4E 13:51 → CANBEDREQ 14:48 → EDBEDREQ 15:09 → 4E 04-14 04:23
DX: J69.0 Pneumonitis due to inhalation of food and vomit (principal); J15.6 Pneumonia due to other Gram-negative bacteria; N39.0 Urinary tract infection, site not specified; Z43.1 Encounter for attention to gastrostomy; E87.5 Hyperkalemia; N17.9 Acute kidney failure, unspecified; E44.1 Mild protein-calorie malnutrition; Z68.27 Body mass index [BMI] 27.0-27.9, adult; E86.0 Dehydration; E86.1 Hypovolemia; G93.40 Encephalopathy, unspecified; Y95 Nosocomial condition; R13.10 Dysphagia, unspecified; I13.0 Hypertensive heart and chronic kidney disease with heart failure and stage 1 through stage 4 chronic kidney disease, or unspecified chronic kidney disease; I69.318 Other symptoms and signs involving cognitive functions following cerebral infarction; F01.50 Vascular dementia, unspecified severity, without behavioral disturbance, psychotic disturbance, mood disturbance, and anxiety; K94.23 Gastrostomy malfunction; Y83.3 Surgical operation with formation of external stoma as the cause of abnormal reaction of the patient, or of later complication, without mention of misadventure at the time of the procedure; E11.65 Type 2 diabetes mellitus with hyperglycemia; N18.9 Chronic kidney disease, unspecified; E03.9 Hypothyroidism, unspecified; E78.5 Hyperlipidemia, unspecified; M19.90 Unspecified osteoarthritis, unspecified site; M24.411 Recurrent dislocation, right shoulder; I25.10 Atherosclerotic heart disease of native coronary artery without angina pectoris; I50.33 Acute on chronic diastolic (congestive) heart failure; E11.22 Type 2 diabetes mellitus with diabetic chronic kidney disease; Z79.84 Long term (current) use of oral hypoglycemic drugs
CPT/HCPCS: 36415; 71045; 74018; 80053; 80202; 81003; 82962; 83690; 83735; 84443; 84484; 85025; 85610; 85730; 87040; 87070; 87081; 87086; 87181; 87205; 93005; 93306; 94640; 96365; 96366; 96367; 96375; 99285; J1815; J7620; S5561

== ENCOUNTER 2019-06-09 21:46 | Inpatient (IN) | payer MEDICARE, MEDICAID ==
[~2019-06-09] VITALS: Ht 165.1 cm; Wt 69.9 kg
[~2019-06-09 21:46] MED LIST changes: +ATORVASTATIN CA10 MG ORAL; +CLONIDINE HCL0.1 MG GT; +EPOGEN20000 UNI1 SUBQ; +EPOGEN4000 UNIT/ SUBQ; +GABAPENTIN100 MG GT; +GABAPENTIN100 MG ORAL; +HEPARIN SO5000 UNIT2 SUBQ; +LEVAQUIN500 MG ORAL; +LEVEMIR FL100 UNIT/1 SUBQ; +LEVEMIR100 UNIT/1 SUBQ; +NOVOLOG100 UNIT/5; +PROTONIX40 MG GT; +SYNTHROID50 MCG GT
--- NOTE | 2019-06-09 21:55 | NUR ---
ED Nurse Note: pt brought in by ambulance 92 from [facility] for SOB since with sp02 70% at long-term per report. pt sp02 is currently 100% on 15L NR mask. Bp 139/89 P 78.
[2019-06-09 21:56] VITALS: BP 140/82
[2019-06-09] MEDS ORDERED: Albuterol ud Inhalation HHN ONE (22:00)
--- NOTE | 2019-06-09 22:00 | Emergency Room Report ---
History of Present Illness General Source: Medical Record, EMS Present Illness HPI This is a 78-year-old -[place] female with history of diabetes, hypertension, CVA, seizure who presents with shortness of breath. Onset for about an hour. Per EMS, oxygenation was in the 70 percentile by long-term. They have oxygenation from 80 to 90%. Patient appeared to be short of breath. No nausea no vomiting. No fever chills. Patient was getting IV fluid. They put her on nonrebreather and brought her here. Unable to get any history from this patient because she is nonverbal. She grunts answer response to pain. Allergies: Coded Allergies: No Known Allergies (Verified , 12/31/09) Patient History Past Medical History: see triage record, old chart reviewed, DM, HTN, CVA/TIA, dementia, seizures Past Surgical History: other Pertinent Family History: none Social History: Denies: smoking Nursing Documentation-PMH Hx Hypertension: Yes - fracture of right femur Hx Pacemaker: No Hx Asthma: No Hx COPD: No Hx Diabetes: Yes Hx Cancer: No Hx Dialysis: No Hx Neurological Problems: Yes - Muscle weakness, difficulty in walking Hx Cerebrovascular Accident: No Hx Seizures: No Hx Cerebral Palsy: Yes Review of Systems Respiratory: Reports: shortness of breath All Other Systems: limited - Patient nonverbal Physical Exam Vitals with hypoxia Sp02 EP Interpretation: reviewed, abnormal General Appearance: alert, mild distress Head: normocephalic, atraumatic Eyes: bilateral eye PERRL, bilateral eye EOMI ENT: hearing grossly normal, normal pharynx Neck: full range of motion, supple, no meningismus Respiratory: chest non-tender, respiratory distress, accessory muscle use, rales, rhonchi Cardiovascular #1: regular rate, rhythm, no murmur Gastrointestinal: normal bowel sounds, non tender, no mass, no organomegaly, no bruit, non-distended Musculoskeletal: back normal, other - contracted Psychiatric: mood/affect normal Skin: no rash Lymphatic: normal inspection Medical Decision Making Diagnostic Impression: Primary Impression: CHF (congestive heart failure) Qualified Codes: I50.9 - Heart failure, unspecified Additional Impressions: UTI (urinary tract infection) Qualified Codes: N30.00 - Acute cystitis without hematuria Encephalopathy acute Anemia Qualified Codes: D64.9 - Anemia, unspecified ARF (acute renal failure) Qualified Codes: N17.9 - Acute kidney failure, unspecified ER Course Presents with respiratory distress secondary to CHF. She also has acute on chronic renal failure. A Barron was placed and purulent urine came out. She grew out both dementia and Proteus in the past. Sensitive to ertapenem. I gave her a dose here. She is much better after getting breathing treatment and oxygen. Diuresed well with IV Lasix. I case with Dr. Peña who will admit. Lab Results Impression Labs with elevated BUN and creatinine. EKG Diagnostic Results Rate: normal Rhythm: NSR ST Segments: other - baseline tremors Rhythm Strip Diag. Results EP Interpretation: yes Rate: 73 Rhythm: NSR, no PVC's, no ectopy Chest X-Ray Diagnostic Results Chest X-Ray Diagnostic Results : Chest X-Ray Ordered: Yes # of Views/Limited/Complete: 1 View Indication: Shortness of Breath EP Interpretation: Yes Interpretation: no consolidation, no pneumothorax, other - Bilateral pleural effusion. Vasc congestion. Impression: Other - CHF Electronically Signed by: Giuliano Montoya MD Status: improved Disposition: ADMITTED INPATIENT Condition: Serious Giuliano Montoya MD Jun 09, 2019 22:00
--- NOTE | 2019-06-09 22:07 | NUR ---
ED Nurse Note: blood work sent to lab
--- NOTE | 2019-06-09 22:08 | NUR ---
ED Nurse Note: X ray at bed side
[2019-06-09] MEDS ORDERED: Ertapenem 1 GM in NS 55 ML IV ONE (22:30)
[2019-06-09 22:36] LABS: ALANINE AMINOTRANSFERASE 52 U/L (12-78); ALBUMIN 2.9 G/DL (3.4-5.0); ALBUMIN/GLOBULIN RATIO 0.6 (1.0-2.7); ALKALINE PHOSPHATASE 214 U/L (46-116); ANION GAP 13 mmol/L (5-15); ASPARTATE AMINO TRANSFERASE 25 U/L (15-37); BASOPHILS % (AUTO) 0.4 % (0.0-2.0); BILIRUBIN,TOTAL 0.5 MG/DL (0.2-1.0); BLOOD UREA NITROGEN 132 mg/dL (7-18); CALCIUM 10.1 MG/DL (8.5-10.1); CARBON DIOXIDE 24 MMOL/L (21-32); CHLORIDE 86 MMOL/L (98-107); CREATINE KINASE 66 U/L (26-308); EOSINOPHILS % (AUTO) 1.2 % (0.0-3.0); HEMATOCRIT 33.3 % (37.0-47.0); HEMOGLOBIN 10.5 G/DL (12.0-16.0); LYMPHOCYTES % (AUTO) 7.7 % (20.0-45.0); MEAN CORPUSCULAR VOLUME 84 FL (80-99); MONOCYTES % (AUTO) 7.6 % (1.0-10.0); NEUTROPHILS % (AUTO) 83.1 % (45.0-75.0); POTASSIUM 4.3 MMOL/L (3.5-5.1); RED BLOOD COUNT 3.97 M/UL (4.20-5.40); RED CELL DISTRIBUTION WIDTH 15.7 % (11.6-14.8); SODIUM 123 MMOL/L (136-145); WHITE BLOOD COUNT 11.2 K/UL (4.8-10.8)
[2019-06-09 22:37] LABS: CKMB 2.2 NG/ML (0.0-3.6)
[2019-06-09 22:44] LABS: PLATELET COUNT 120 K/UL (150-450)
[2019-06-09] MEDS ORDERED: MIRALAX17 G2 GT (22:46)
[2019-06-09] MEDS ORDERED: DOCUSATE SODIU100 MG GT (22:46)
[2019-06-09] MEDS ORDERED: ZOFRAN 4 MG4 MG/2 ML GT (22:46)
[2019-06-09] MEDS ORDERED: GLYCOPYRROLATE1 MG GT (22:46)
[2019-06-09] MEDS ORDERED: FUROSEMIDE20 M1 GT (22:46)
[2019-06-09] MEDS ORDERED: NEPRO CARB STE237 ML GT (22:46)
[2019-06-09] MEDS ORDERED: BISACODYL5 MG RC (22:46)
[2019-06-09] MEDS ORDERED: LACTULOSE20 GM/301 GT (22:46)
[2019-06-09] MEDS ORDERED: MULTI-BETIC TA1 EAC1 GT (22:46)
[2019-06-09] MEDS ORDERED: EMERGEN-C 500500 MG GT (22:46)
[2019-06-09] MEDS ORDERED: KEPPRA1000 MG GT (22:46)
[2019-06-09] MEDS ORDERED: CATAPRES0.1 MG GT (22:46)
[2019-06-09] MEDS ORDERED: MILK OF MA400 MG/51 GT (22:46)
[2019-06-09] MEDS ORDERED: TYLENOL325 MG GT (22:46)
[2019-06-09] MEDS ORDERED: ROBITUSSIN AC5 ML GT (22:46)
[2019-06-09] MEDS ORDERED: GABAPENTIN100 MG GT (22:46)
[2019-06-09 22:57] LABS: APPEARANCE,URINE SLIGHTLY CLOUDY; BILIRUBIN, URINE NEGATIVE (NEGATIVE); COLOR,URINE PALE YELLOW; GLUCOSE, URINE (UA) 1+ (NEGATIVE); KETONES,URINE NEGATIVE (NEGATIVE); LEUKOCYTE ESTERASE ,URINE 3+ (NEGATIVE); NITRITE,URINE NEGATIVE (NEGATIVE); PH,URINE 5 (4.5-8.0); PROTEIN,URINE 2+ (NEGATIVE); UROBILINOGEN,URINE NORMAL MG/DL (0.0-1.0)
--- NOTE | 2019-06-09 23:58 | NUR ---
ED Nurse Note: pt brought up to room 210 accompanied by elementary art teacher and rn via martha with monitor box in stable condition. Report given to FELY Almonte. pt has no belonging list.
--- NOTE | 2019-06-10 | NUR ---
NURSE NOTES: Received patient from ED nurse Dominguez RN. Patient is obtunded, receiving oxygen via nasal cannula at 2L/min, patient tolerating well, O2 Sat 97%. Heart Monitor is on. Patient has a G-tube that is patent on Left Upper Quadrant. Barron catheter is intact and draining, white sediment noted in Barron Bag. IV site is in the Right Upper Arm Single Lumen. Heart monitor is on, family at bedside, bed alarm on, side rails up x3, call light within reach, bed alarm on, Will continue to monitor.
[2019-06-10] MEDS ORDERED: Acetaminophen 650mg/20.3ml GT PRN (00:45)
[2019-06-10] MEDS: Albuterol/Ipratropium 3ml neb HHN SCH ×4 (02:06→19:15)
[2019-06-10] MEDS ORDERED: LANTUS SOL100 UNIT/1 SUBQ (04:59)
[2019-06-10] MEDS ORDERED: OMEPRAZOLE40 M1 GT (05:00)
[2019-06-10] MEDS ORDERED: FUROSEMIDE20 M1 GT (05:04)
[2019-06-10] MEDS ORDERED: PANTOPRAZOLE SO40 MG GT (05:04)
[2019-06-10] MEDS: NovoLOG Insulin Flexpen SUBQ SCH ×4 (06:10→21:00)
[2019-06-10] MEDS ORDERED: NovoLOG Insulin Flexpen SUBQ SCH (06:30)
--- NOTE | 2019-06-10 07:51 | NUR ---
HAND-OFF: Report given to Oliva GEIGER.
[2019-06-10 08:00] VITALS: BP 113/47
--- NOTE | 2019-06-10 08:01 | NUR ---
NURSE NOTES: pt obtunded, opens eyes when pt is moved but not to when you call her name. Pt on compliance monitor no signs of cardiac distress at this time. Pt is getting a respiratory treatment at this time. Pt will be assessed by wound care nurse (pt has bilateral heel DTI and sacral wound stage 1, picts were taken by night nurse upon admission. Pt on GTube set up at 15ml goal is 45ml, Gtube patent and flushing. pt has perera cath patent urine clear with some sedimentation. Pt has R upper midline dressing is not intact but line is flushing. Pt has R upper chest IV 22g running ns at 100ml/hr. Will continue to follow plan of care and monitor pt.
--- NOTE | 2019-06-10 10:30 | History and Physical Report ---
DATE OF ADMISSION: 06/09/2019 CHIEF COMPLAINT: CHF, respiratory failure. HISTORY OF PRESENT ILLNESS: The patient is an unfortunate 78-year-old female. She has a prior history of stroke, chronic kidney disease, hypertension, CHF, dysphagia status post G-tube. She has a history of seizure disorder. She was transferred from a [facility] facility with complaints of desaturation and hypoxemia. The patient just seen several days ago. At that time, she is doing well. She was noted to have an elevated BUN and creatinine. She has been started on IV fluids only for a few hours, unfortunately became congested and short of breath. On evaluation in the emergency room, the patient was noted to be in heart failure. She was hypoxic on 5 liters of oxygen. She was given a dose of Lasix. Supplemental oxygen was also administered. The patient is now admitted for further evaluation and care. PAST MEDICAL HISTORY: As above. PAST SURGICAL HISTORY: Includes a G-tube. CURRENT MEDICATIONS: Reconciled and reviewed. ALLERGIES: None. FAMILY HISTORY: None. SOCIAL HISTORY: Negative for tobacco, ethanol, or drugs. REVIEW OF SYSTEMS: Unobtainable as the patient is nonverbal at baseline. PHYSICAL EXAMINATION: VITAL SIGNS: Temperature 98.2, pulse 77, respirations 18, blood pressure 113/47. GENERAL: The patient is well developed. No apparent distress. The patient opens her eyes, but does not follow commands. HEART: Regular rate and rhythm. LUNGS: Significant for scattered rhonchi and rales. ABDOMEN: Soft, nontender, nondistended. EXTREMITIES: Without clubbing, cyanosis, or edema. LABORATORY DATA: Labs showed a white count of 11, hemoglobin 10, hematocrit 33, platelets of 120. Sodium 123, potassium 4.3, chloride 86, bicarb 24, BUN 132, creatinine 3. UA showed too numerous to count wbc's. ASSESSMENT: This is an unfortunate female who complains of respiratory failure secondary to CHF exacerbation. She has acute on chronic renal failure as well as UTIs. PLAN: 1. Aggressive diuresis with close monitoring of renal function. 2. IV antibiotics. 3. Follow up cultures. 4. Cardiology and Renal consultations to be obtained. 5. We will continue the patient on seizure medications as well as thyroid replacement therapy. 6. The patient's overall prognosis is poor. 7. There is an advance directive for DNR/DNI. Jeffrey Crowder M.D. DR: CHRISTIANO JOB#: [id number] CC:
--- NOTE | 2019-06-10 11:28 | NUR ---
RD ASSESSMENT & RECOMMENDATIONS SEE CARE ACTIVITY FOR COMPLETE ASSESSMENT DAILY ESTIMATED NEEDS: Needs based on DM, Renal, wound, PROGRAM PROPOSALS COORDINATOR TF, bedbound, CHF 65kg 20-25 kcals/kg 6075-4956 total kcals 0.8-1.25 g protein/kg 52-81 g total protein 20-22 mL/kg 6600-9462 total fluid mLs NUTRITION DIAGNOSIS: 1) Altered nutrition related lab values r/t clinical status, DM, ARF on CKD as evidenced by pt w/ elev BUN (132), Cr (3.0), low Na (123), elev BG 163 2) Swallowing difficulty r/t dysphagia as evidenced by pt is GT dep. CURRENT TF:Glucerna 1.2 @45ml /hr x22 hrs ENTERAL NUTRITION RECOMMENDATIONS: Glucerna 1.5 @ 45ml/hr x 22 hrs to provide 990ml, 1485kcal, 81g prot, 751ml free water * Rec TF change to Glucerna 1.5 for less free H2O (hyponatremia) * Initiate Glucerna 1.5 @ 25ml/hr x 6 hrs, advance 10ml q 4-6 hrs as tolerated to goal rate. * Hold 1 hr before and after Synthroid med * HOB over 30 degrees/ water flush per MD ADDITIONAL RECOMMENDATIONS: 1) Monitor lytes closely, need for TF change ( Pt on Nepro PROGRAM PROPOSALS COORDINATOR, possible h/o electrolyte imbalance) 2) F/up w/ wound eval : rec adding MVI x 1, Vit C 250mg QD, Maik 1pkt BID via PEG 3) Calibrate bed scale for accurate wt BED WT: 154 lbs vs SNF recorded WT: 143 lbs
--- NOTE | 2019-06-10 11:49 | Diagnostic Imaging Report ---
Indication: Dyspnea Comparison: 04/15/2019 A single view chest radiograph was obtained. Findings: Vascularity and interstitial prominence demonstrated with slight worsening since the last occasion. The heart is enlarged. Bones are osteopenic. IMPRESSION: Interstitial edema
[2019-06-10 12:00] VITALS: BP 114/59
--- NOTE | 2019-06-10 15:19 | NUR ---
INTERQUAL CRITERIA MET
--- NOTE | 2019-06-10 15:52 | NUR ---
NURSE NOTES:WOUND CARE NOTES: Pt presented on admission with Non-blanchable erythema over Keloid scar sacrococcygeal area.Darker skin tone noted to sacrum. Non-blanching erythema with delineated margins medial L heel. Base of wound is fluctuant(L)3cm x (W)2.5cm. R heel boggy with non-blanching erythema. Historical scar from previous wound also noted to R heel. Thick callus note to dorsal L 1st metatarsal (L)1cm x (W)1cm. Tx.Plan: Apply Moisture Barrier paste to sacrum. Cover with Optifoam drsg. Change every 3 days and prn. Apply Cavilon Skin Barrier to both heels. Cover each heel with Optifoam drsg. Change every 7 days and prn. Reposition at least every 2hours or as tolerated. Off-load heels with pillow.
[2019-06-10 16:00] VITALS: BP 110/71
[2019-06-10] MEDS ORDERED: BISACODYL10 M1 RC (18:56)
[2019-06-10] MEDS ORDERED: ADULT WAL-100 MG/5 M GT (19:01)
[2019-06-10] MEDS ORDERED: VITAMIN D250000 UNI1 GT (19:04)
[2019-06-10] MEDS ORDERED: MULTIVITAMINS1 EAC2 GT (19:08)
[2019-06-10] MEDS ORDERED: VITAMIN C250 MG GT (19:09)
[2019-06-10] MEDS ORDERED: SYMLIN600 MCG/1 SUBQ (19:11)
[2019-06-10] MEDS ORDERED: NEPHROVITE1 TAB GT (19:15)
[2019-06-10] MEDS ORDERED: HEPARIN SO5000 UNIT2 SUBQ (19:17)
[2019-06-10] MEDS ORDERED: DUONEB 0.5-3(2.53 ML HHN (19:23)
[2019-06-10] MEDS ORDERED: EPOGEN4000 UNIT/ SUBQ (19:25)
--- NOTE | 2019-06-10 19:35 | NUR ---
HAND-OFF: Report given to Elton/RN, pt need to be continuosly sucktioned, monitor B/P .
--- NOTE | 2019-06-10 19:40 | NUR ---
NURSE NOTES: Received patient report from Oliva GEIGER. Patient is obtunded, receiving oxygen via nasal cannula at 2L/min, patient and tolerating well. Heart Monitor is on. Patient has a G-tube that is patent on Left Upper Quadrant. Barron catheter is intact and draining, white sediment noted in Barron Bag. IV site is in the Right Upper Arm Single Lumen. Heart monitor is on, bed alarm on, side rails up x3, call light within reach, bed alarm on. Will continue to monitor and follow plan of care.
[2019-06-10 20:00] VITALS: BP 111/86
--- NOTE | 2019-06-10 20:32 | NUR ---
CASE MANAGEMENT: REVIEW 78Y/FEMALE CC: SOB . ORAL SWELLING SI: CHF . ACUTE RENAL FAILURE T 99.1 HR 88 RR 22 BP 140/82 94% NON-REBREATHER 15.0 WBC 11.2 H/H 10.5/33.3 NA 123 CHLOR 86 BUN 132 CR 3.0 BNP 808 IS: ALBUTEROL HHN X1 ERTAPENEM IV X1 LASIX IV X1 PATIENT ADMITTED TO TELEMETRY UNIT 06/09/2019 DCP: PATIENT IS FROM [facility]
[2019-06-10] MEDS: Heparin 5000 units/ml inj SUBQ SCH (21:00)
[2019-06-10] MEDS ORDERED: Ertapenem 0.5 GM in NS 55 ML IVPB SCH (22:00)
[2019-06-11] VITALS (7 sets, daily range): BP systolic 105–133; BP diastolic 55–60
[2019-06-11] MEDS: Albuterol/Ipratropium 3ml neb HHN SCH ×4 (00:13→20:05)
[2019-06-11] MEDS: NovoLOG Insulin Flexpen SUBQ SCH ×4 (06:30→21:57)
--- NOTE | 2019-06-11 08:27 | NUR ---
NURSE NOTES: pt is awake and is continuously getting suctioned. 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 Notified doctor Lakesha pt is not tolerating 15ml feeding. Feeding has been put on hold doctor is aware. Dr Crowder will consult GI doctor for a possible J-tube placement. Pt IV is intact and running Ns. Bed is locked and in lowest position. Call light is within reach. Will continue to monitor pt.
[2019-06-11] MEDS ORDERED: guaiFENesin 100mg/5ml Liq ud GT PRN (08:30)
[2019-06-11] MEDS ORDERED: Metoclopramide 10mg/2ml Inj IVP PRN (08:30)
[2019-06-11] MEDS ORDERED: Glycopyrrolate 0.2mg/ml 1ml Vial IV SCH (08:30)
--- NOTE | 2019-06-11 08:31 | General Progress Note ---
Assessment/Plan Problem List: (1) HTN (hypertension) ICD Codes: I10 - Essential (primary) hypertension SNOMED: 62361116 (2) Pneumonia ICD Codes: J18.9 - Pneumonia, unspecified organism SNOMED: 586677364 (3) ATN (acute tubular necrosis) ICD Codes: N17.0 - Acute kidney failure with tubular necrosis SNOMED: 66564679 (4) CHF (congestive heart failure) ICD Codes: I50.9 - Heart failure, unspecified SNOMED: 36104401 Qualifiers: Qualified Codes: I50.9 - Heart failure, unspecified (5) Encephalopathy acute ICD Codes: G93.40 - Encephalopathy, unspecified SNOMED: 1825406 (6) UTI (urinary tract infection) ICD Codes: N39.0 - Urinary tract infection, site not specified SNOMED: 04796180 Qualifiers: Qualified Codes: N30.00 - Acute cystitis without hematuria Status: stable Assessment/Plan: ivf monitor volume status glycopyrrolate resp rx suctioning gt feeds add reglan check kub iv abx follow up cultures Subjective ROS Limited/Unobtainable: Yes Constitutional: Reports: malaise, weakness HEENT: Reports: no symptoms Cardiovascular: Reports: no symptoms Respiratory: Reports: shortness of breath, sputum Gastrointestinal/Abdominal: Reports: difficulty swallowing Genitourinary: Reports: no symptoms Neurologic/Psychiatric: Reports: pre-existing deficit, seizure Endocrine: Reports: no symptoms Hematologic/Lymphatic: Reports: no symptoms Allergies: Coded Allergies: No Known Allergies (Verified , 12/31/09) All Systems: reviewed and negative except above Subjective congested. mostly oral secretions. not tolerating feeds. labs pending. on ivf. BP better Objective Last 24 Hour Vital Signs Date Time Temp Pulse Resp B/P (MAP) Pulse Ox O2 Delivery O2 Flow Rate FiO2 06/11/19 08:17 85 18 100 Nasal Cannula 2.0 28 78 20 99 06/11/19 08:14 78 20 98 Nasal Cannula 2.0 28 06/11/19 04:00 97.1 77 18 123/60 (81) 99 06/11/19 04:00 74 06/11/19 00:13 85 18 100 Nasal Cannula 2.0 28 80 18 100 06/11/19 00:00 77 06/11/19 00:00 97.7 79 18 113/56 (75) 100 06/10/19 21:00 Nasal Cannula 2.0 06/10/19 20:00 93 06/10/19 20:00 97.9 90 18 111/86 (94) 100 06/10/19 19:15 99 18 89 Nasal Cannula 2.0 28 06/10/19 19:15 95 18 99 Nasal Cannula 2.0 28 89 18 99 06/10/19 16:00 76 06/10/19 16:00 2.0 06/10/19 16:00 97.2 81 22 110/71 (84) 96 06/10/19 13:30 78 20 99 Nasal Cannula 1.0 24 78 20 97 06/10/19 12:00 77 06/10/19 12:00 98.2 89 20 114/59 (77) 95 06/10/19 12:00 2.0 06/10/19 11:24 83 06/10/19 09:00 Nasal Cannula 2.0 Intake and Output 06/10/19 06/11/19 19:00 07:00 Intake Total 1200 ml 60 ml Output Total 250 ml 1000 ml Balance 950 ml -940 ml Intake Oral 0 ml Free Water 60 ml Other 1200 ml Output Urine Total 250 ml 1000 ml # Bowel Movements 1 Height (Feet): 5 Height (Inches): 5.00 Weight (Pounds): 154 General Appearance: WD/WN, lethargic, confused Neck: supple Cardiovascular: regular rhythm Respiratory/Chest: rhonchi - bilaterally Abdomen: normal bowel sounds, non tender, soft, no organomegaly, no mass Edema: no edema noted Arm (L), no edema noted Arm (R), no edema noted Leg (L), no edema noted Leg (R), no edema noted Pedal (L), no edema noted Pedal (R), no edema noted Generalized Neurologic: disoriented Jeffrey Crowder MD Jun 11, 2019 08:31
[2019-06-11] MEDS: Heparin 5000 units/ml inj SUBQ SCH ×2 (09:00→21:00)
[2019-06-11 09:05] LABS: BASOPHILS % (AUTO) 0.6 % (0.0-2.0); EOSINOPHILS % (AUTO) 1.8 % (0.0-3.0); HEMATOCRIT 26.6 % (37.0-47.0); HEMOGLOBIN 8.5 G/DL (12.0-16.0); LYMPHOCYTES % (AUTO) 17.4 % (20.0-45.0); MEAN CORPUSCULAR VOLUME 85 FL (80-99); NEUTROPHILS % (AUTO) 67.3 % (45.0-75.0); PLATELET COUNT 118 K/UL (150-450); RED BLOOD COUNT 3.12 M/UL (4.20-5.40); RED CELL DISTRIBUTION WIDTH 17.5 % (11.6-14.8); WHITE BLOOD COUNT 7.7 K/UL (4.8-10.8)
[2019-06-11 09:42] LABS: ALANINE AMINOTRANSFERASE 42 U/L (12-78); ALBUMIN 2.6 G/DL (3.4-5.0); ALBUMIN/GLOBULIN RATIO 0.6 (1.0-2.7); ALKALINE PHOSPHATASE 143 U/L (46-116); ANION GAP 14 mmol/L (5-15); ASPARTATE AMINO TRANSFERASE 21 U/L (15-37); BILIRUBIN,TOTAL 0.4 MG/DL (0.2-1.0); BLOOD UREA NITROGEN 117 mg/dL (7-18); CALCIUM 9.2 MG/DL (8.5-10.1); CARBON DIOXIDE 21 MMOL/L (21-32); CHLORIDE 100 MMOL/L (98-107); CREATININE 2.7 MG/DL (0.55-1.30); POTASSIUM 4.3 MMOL/L (3.5-5.1); SODIUM 135 MMOL/L (136-145)
--- NOTE | 2019-06-11 11:28 | NUR ---
NURSE NOTES: Checked residual on feeding and it is still more than 100ml. Feeding still is being held.
[2019-06-11] MEDS ORDERED: D5NS 1000ml IV ONE (13:57)
[2019-06-11] MEDS ORDERED: Tubing IV Secondary IV ONE (13:57)
--- NOTE | 2019-06-11 14:43 | NUR ---
CASE MANAGEMENT: REVIEW 06/11/2019 SI:HEART FAILURE. ACUTE KIDNEY FAILURE. T 97.1 HR 77 RR 18 B/P 123/60 SATS 99% ON 2L/NC LABS: NA 135 BUN 117 CR 2.7 GLU 143 ALP 143 IS:IVF @ 100 mL/HR GABAPENTIN GT BID INSULIN ASPART SUBQ AC/HS KEPPRA GT Q12H ERTAPENEM IV Q24H TELE
--- NOTE | 2019-06-11 19:43 | NUR ---
HAND-OFF: Report given to Vasquez/FELY pt ins stable condition.
--- NOTE | 2019-06-11 19:44 | NUR ---
NURSE NOTES: Received report from FELY Baptiste. Patient is awake and obtunded, lying in semi thao's; resting well. No signs of acute cardiorespiratory distress noted. On nasal cannula @ 2LPM and tolerating well. With G tube intact and patent with no residual noted. On Glucerna 1.2 @ 10cc/hr and tolerating well. Checked IV site and flushed. No erythema, bleeding or infiltration noted. On perera catheter draining well to gravity. Bed at lowest position, brakes on, siderails x3. Call light within reach. Will continue to monitor. Addendum: 06/12/19 at 0049 by Carly Ovalle RN Continuous suctioning done.
[2019-06-12] VITALS: BP_SYST 143; BP_SYST 166; BP_DIAS 58; BP_DIAS 83
--- NOTE | 2019-06-12 00:36 | NUR ---
NURSE NOTES: Informed Dr. Crowder that patient has gastric residual of 110cc and will hold G tube feeding. Will continue to monitor.
[2019-06-12] MEDS: Albuterol/Ipratropium 3ml neb HHN SCH ×5 (01:14→23:49)
[2019-06-12 04:00] VITALS: BP 129/86
--- NOTE | 2019-06-12 06:27 | NUR ---
CASE MANAGEMENT: REVIEW 06/12/2019 SI:HEART FAILURE. ACUTE KIDNEY FAILURE. T 98.2 HR 80 RR 20 B/P 129/86 SATS 100% ON 2L/NC NO LABS TODAY IS:IVF @ 100 mL/HR GABAPENTIN GT BID INSULIN ASPART SUBQ AC/HS KEPPRA GT Q12H ERTAPENEM IV Q24H TELE
[2019-06-12] MEDS: NovoLOG Insulin Flexpen SUBQ SCH ×4 (06:29→21:00)
--- NOTE | 2019-06-12 06:50 | NUR ---
NURSE NOTES: Informed Dr. Crowder patient's gastric residual of 10ml. Per Dr. Crowder, hold the G tube feeding.
--- NOTE | 2019-06-12 07:45 | NUR ---
HAND-OFF: Report given to FELY Baptiste. Plan of care endorsed.
--- NOTE | 2019-06-12 07:46 | NUR ---
NURSE NOTES: Pt. obtunded, opens up eyes to pain stimulation only. Pt on monitoring tech no signs of Cardiac distress at this time. Pt has difficulty getting rid of secretions. pt has perera and it is patent. Pt has midline on r upper arm and is flushing good. IV site is intact and patent funning fluids. Gtube patent but feeding is on hold due to high residual, per doctors [place] orders. Bed is locked and lowest position. Call light within reach. Will continue to follow plan of care for pt.
[2019-06-12 08:00] VITALS: BP 138/91
--- NOTE | 2019-06-12 08:16 | NUR ---
NURSE NOTES: per Doctor [place] OK to use midline. reported labs to doctor, no new orders at this time.
[2019-06-12] MEDS: Heparin 5000 units/ml inj SUBQ SCH ×2 (09:00→21:00)
--- NOTE | 2019-06-12 11:17 | General Progress Note ---
Assessment/Plan Problem List: (1) HTN (hypertension) ICD Codes: I10 - Essential (primary) hypertension SNOMED: 08013444 (2) Pneumonia ICD Codes: J18.9 - Pneumonia, unspecified organism SNOMED: 140209572 (3) ATN (acute tubular necrosis) ICD Codes: N17.0 - Acute kidney failure with tubular necrosis SNOMED: 82708774 (4) CHF (congestive heart failure) ICD Codes: I50.9 - Heart failure, unspecified SNOMED: 18097430 Qualifiers: Qualified Codes: I50.9 - Heart failure, unspecified (5) Encephalopathy acute ICD Codes: G93.40 - Encephalopathy, unspecified SNOMED: 7825383 (6) UTI (urinary tract infection) ICD Codes: N39.0 - Urinary tract infection, site not specified SNOMED: 90620800 Qualifiers: Qualified Codes: N30.00 - Acute cystitis without hematuria Status: stable Assessment/Plan: ivf monitor volume status glycopyrrolate resp rx suctioning gt feeds add reglan check kub gi eval iv abx follow up cultures Subjective ROS Limited/Unobtainable: No Constitutional: Reports: malaise, weakness HEENT: Reports: no symptoms Cardiovascular: Reports: no symptoms Respiratory: Reports: no symptoms Gastrointestinal/Abdominal: Reports: difficulty swallowing Genitourinary: Reports: no symptoms Neurologic/Psychiatric: Reports: pre-existing deficit, seizure Endocrine: Reports: no symptoms Hematologic/Lymphatic: Reports: anemia Allergies: Coded Allergies: No Known Allergies (Verified , 12/31/09) All Systems: reviewed and negative except above Subjective congested. mostly oral secretions. not tolerating feeds. labs pending. on ivf. BP better labs noted. h/h lower. no signs of bleeding. Objective Last 24 Hour Vital Signs Date Time Temp Pulse Resp B/P (MAP) Pulse Ox O2 Delivery O2 Flow Rate FiO2 06/12/19 07:39 80 18 100 Nasal Cannula 2.0 28 80 18 100 06/12/19 04:00 80 06/12/19 04:00 98.2 79 20 129/86 (100) 100 06/12/19 01:28 94 22 100 Nasal Cannula 2.0 28 06/12/19 01:14 80 20 100 Nasal Cannula 2.0 28 06/12/19 00:00 97.4 79 18 143/58 (86) 100 06/12/19 00:00 85 06/11/19 21:00 Nasal Cannula 2.0 06/11/19 20:15 76 20 100 Nasal Cannula 2.0 28 06/11/19 20:05 75 20 100 Nasal Cannula 2.0 28 06/11/19 20:00 97.4 74 16 133/60 (84) 97 06/11/19 20:00 76 06/11/19 16:00 81 06/11/19 16:00 97.9 80 18 116/58 (77) 97 06/11/19 13:20 80 20 100 Nasal Cannula 2.0 28 77 20 100 06/11/19 12:00 98.1 81 20 109/55 (73) 100 06/11/19 12:00 79 Intake and Output 06/11/19 06/12/19 19:00 07:00 Output Total 1100 ml 600 ml Balance -1100 ml -600 ml Output Urine Total 1100 ml 600 ml # Bowel Movements 1 1 Height (Feet): 5 Height (Inches): 5.00 Weight (Pounds): 154 General Appearance: WD/WN, alert Neck: supple Cardiovascular: normal rate, regular rhythm Respiratory/Chest: chest wall non-tender, no respiratory distress, no accessory muscle use, rhonchi - bilaterally Abdomen: normal bowel sounds, non tender, soft, no organomegaly Edema: no edema noted Arm (L), no edema noted Arm (R), no edema noted Leg (L), no edema noted Leg (R), no edema noted Pedal (L), no edema noted Pedal (R), no edema noted Generalized Jeffrey Crowder MD Jun 12, 2019 11:17
[2019-06-12] MEDS: Fluconazole 100mg tab GT SCH (11:25)
[2019-06-12 12:00] VITALS: BP 117/62
--- NOTE | 2019-06-12 12:17 | Pulmonology Progress Note ---
Assessment/Plan Assessment/Plan Pulmonary Consultation HPI: Patient is a 78 year-old woman with history of Diabetes, Hypertension, previous CVA, Dementia seizures who presents with shortness of breath. Noted to have evidence of UTI, required diuresis after receiving IV fluids in the ED. No report of nausea, vomiting, fever or chills. Patient is nonverbal. Allergies: No Known Allergies Past Medical History: DM, HTN, CVA/TIA, Dementia, Seizures, CP, right femure fracture, weakness All Other Systems: limited Physical Exam Vitals signs noted General Appearance: alert, mild distress, chronically ill appearing Head: normocephalic, atraumatic Eyes: bilateral eye PERRL, bilateral eye EOMI ENT: hearing grossly normal, normal pharynx Neck: no LN Respiratory: chest non-tender, respiratory distress, accessory muscle use, basal rales, occasional rhonchi Cardiovascular: regular rate, rhythm, HS1/HS2 normal, no murmur Gastrointestinal: normal bowel sounds, non tender, no mass, no organomegaly, no bruit, non-distended Musculoskeletal: contracted, no edema Skin: no rash Impression: Congestive heart failure Possible pneumonia Urinary tract infection Encephalopathy, Dementia Previous Seizures Anemia Acute renal failure Hyponatremia Diabetes Hypertension Previous CVA Cerebral Palsy Previous rght femur fracture Weakness Plan IV antibiotics Diurese PRN O2 PRN HHN [employer] medications PPX Monitor labs Labs noted. EKG: Rate: normal, NSR Chest X-Ray: no consolidation, no pneumothorax, other - Bilateral pleural effusion. Vasc congestion s/o CHF Subjective ROS Limited/Unobtainable: No Allergies: Coded Allergies: No Known Allergies (Verified , 12/31/09) Objective Last 24 Hour Vital Signs Date Time Temp Pulse Resp B/P (MAP) Pulse Ox O2 Delivery O2 Flow Rate FiO2 06/12/19 07:39 80 18 100 Nasal Cannula 2.0 28 80 18 100 06/12/19 04:00 80 06/12/19 04:00 98.2 79 20 129/86 (100) 100 06/12/19 01:28 94 22 100 Nasal Cannula 2.0 28 06/12/19 01:14 80 20 100 Nasal Cannula 2.0 28 06/12/19 00:00 97.4 79 18 143/58 (86) 100 06/12/19 00:00 85 06/11/19 21:00 Nasal Cannula 2.0 06/11/19 20:15 76 20 100 Nasal Cannula 2.0 28 06/11/19 20:05 75 20 100 Nasal Cannula 2.0 28 06/11/19 20:00 97.4 74 16 133/60 (84) 97 06/11/19 20:00 76 06/11/19 16:00 81 06/11/19 16:00 97.9 80 18 116/58 (77) 97 06/11/19 13:20 80 20 100 Nasal Cannula 2.0 28 77 20 100 Intake and Output 06/11/19 06/12/19 19:00 07:00 Output Total 1100 ml 600 ml Balance -1100 ml -600 ml Output Urine Total 1100 ml 600 ml # Bowel Movements 1 1 Microbiology Date/Time Source Procedure Growth Status 06/09/19 22:00 Blood Blood Culture - Preliminary NO GROWTH AFTER 48 HOURS Resulted 06/09/19 21:45 Blood Blood Culture - Preliminary NO GROWTH AFTER 48 HOURS Resulted 06/09/19 22:16 Nasal Nares MRSA Culture - Final Staphylococcus Aureus - Mrsa Complete 06/09/19 22:16 Urine,Clean Catch Urine Culture - Preliminary YEAST Resulted 06/09/19 22:16 Rectum - Final NO CARBAPENEM-RESISTANT ENTEROBACTERI... Complete 06/09/19 22:16 Rectum VRE Culture - Final Enterococcus Faecalis - Vre Complete Current Medications Medications (Trade) Dose Ordered Sig/Aaron Route PRN Reason Start Time Stop Time Status Last Admin Dose Admin Acetaminophen (Tylenol) 650 mg Q4H PRN GT Mild Pain/Temp > 100.5 06/10/19 00:45 07/10/19 00:44 Albuterol/ Ipratropium (Albuterol/ Ipratropium) 3 ml Q6HRT HHN 06/10/19 01:00 06/15/19 00:59 06/12/19 07:35 Dextrose (Dextrose 50%) 25 ml Q30M PRN IV Hypoglycemia 06/10/19 00:45 07/10/19 00:44 Dextrose (Dextrose 50%) 50 ml Q30M PRN IV Hypoglycemia 06/10/19 00:45 07/10/19 00:44 Fluconazole (Diflucan) 100 mg DAILY GT 06/12/19 10:45 06/19/19 10:44 06/12/19 11:25 Gabapentin (Neurontin) 100 mg BID GT 06/11/19 09:00 07/11/19 08:59 06/12/19 09:53 Guaifenesin (Robitussin) 100 mg Q6H PRN GT For Cough 06/11/19 08:30 07/11/19 08:29 Heparin Sodium (Porcine) (Heparin 5000 units/ml) 5,000 units EVERY 12 HOURS SUBQ 06/10/19 21:00 07/10/19 20:59 Insulin Aspart (NovoLOG) BEFORE MEALS AND HS SUBQ 06/10/19 06:30 07/10/19 06:29 06/12/19 06:29 Levetiracetam (Keppra) 1,000 mg Q12HR GT 06/11/19 09:00 07/11/19 08:59 06/12/19 09:53 Levothyroxine Sodium (Synthroid) 50 mcg ACBREAKFAST GT 06/12/19 06:30 07/12/19 06:29 06/12/19 06:20 Metoclopramide HCl (Reglan) 5 mg Q8H PRN IVP Nausea & Vomiting 06/11/19 08:30 07/11/19 08:29 Sodium Chloride 1,000 ml @ 100 mls/hr Q10H IV 06/10/19 02:15 07/10/19 02:14 06/12/19 04:15 Kavon Seals MD Jun 12, 2019 12:17
--- NOTE | 2019-06-12 12:36 | Diagnostic Imaging Report ---
EXAM: XR Abdomen, 2 Views CLINICAL HISTORY: ABD PAIN TECHNIQUE: Frontal view of the abdomen pelvis with upright view of the abdomen. COMPARISON: Abdominal radiographs on 04 13 2019 FINDINGS: Hardware: None. Abdomen: Nonobstructive bowel gas pattern. No free air. Large amount of stool may represent constipation. Catheter projected over the pelvis. Bones: Osteopenia. Mild degenerative changes of the hips and spine. Screws traversing the right femoral neck. Soft tissues: Normal. Lower chest: Left greater than right bibasilar opacities. IMPRESSION: 1. Nonobstructive bowel gas pattern. No free air. Large amount of stool may represent constipation. 2. Left greater than right bibasilar opacities.
--- NOTE | 2019-06-12 12:37 | Diagnostic Imaging Report ---
EXAM: XR Chest, 1 View CLINICAL HISTORY: INFECT TECHNIQUE: Frontal view of the chest. COMPARISON: Chest radiograph on 06 09 2019 FINDINGS: Hardware: None. Lungs pleura: Left pleural effusion with atelectasis versus pneumonia. Possible trace right pleural effusion. Patchy airspace opacities throughout the lungs may represent pulmonary edema versus infectious inflammatory process. Heart mediastinum: Stable enlargement of the cardiomediastinal silhouette. Atherosclerotic calcifications of the aorta. Soft tissues: Unremarkable. Bones: No acute fracture. Upper abdomen: Normal. IMPRESSION: Left pleural effusion with atelectasis versus pneumonia. Possible trace right pleural effusion. Patchy airspace opacities throughout the lungs may represent pulmonary edema versus infectious inflammatory process, increased compared to prior exam.
[2019-06-12 16:30] VITALS: BP 106/58
--- NOTE | 2019-06-12 16:30 | Consultation ---
DATE OF CONSULTATION: 06/12/2019 INFECTIOUS DISEASE CONSULTATION This consult is for coverage of Dr. Prieto. CONSULTING PHYSICIAN: Bay Richter M.D. PRIMARY ATTENDING: Jeffrey Crowder M.D. REASON FOR CONSULT: UTI. HISTORY OF PRESENT ILLNESS: This is a 78-year-old female admitted on 06/09/2019 from residential facility because of shortness of breath. She had O2 saturation. The admitting diagnosis was CHF exacerbation. She had also pyuria and suspected for UTI. She has advanced dementia and not a source of history. PAST MEDICAL HISTORY: Significant for diabetes mellitus, hypertension, status post CVA, seizure disorder, dementia, anemia, chronic kidney disease, status post G-tube placement, hypothyroidism. MEDICATIONS: Levothyroxine, gabapentin, Keppra, metoprolol. Get a dose of Ertapenem, heparin, insulin, sodium chloride, albuterol ipratropium, and Tylenol. SOCIAL HISTORY: snf resident. Single. Code Status is DNR/DNI. REVIEW OF SYSTEMS: Unobtainable. PHYSICAL EXAMINATION: VITAL SIGNS: Pulse 80, blood pressure is 129/86, temperature 98.2. GENERAL APPEARANCE: Seems to be well developed. HEAD AND NECK: Keiser conjunctiva. HEART: Normal rate. Has a right arm PICC line. LUNGS: Has bilateral rales that improved with clearing of the throat and coughing. ABDOMEN: Has a G-tube. Soft. EXTREMITIES: Has pedal edema bilaterally. SKIN: Has skin lesion in the left big toe likely healed ulcer. Has onychomycosis of toes. NEUROLOGIC: Nonresponsive. LABORATORY DATA: WBC 7.7. WBC at the time of admission was 11.2, hemoglobin 8.5, hematocrit 26.6, platelets 118. Sodium 135, potassium 4.3, chloride 100, bicarb 21, BUN 117, creatinine 2.7, glucose 143. Albumin is 2.6. UA showed rbc's 40 to 60, wbc's too numerous to count. VRE is positive. MRSA screen positive. Urine culture growing yeast. Blood culture x2 negative. IMPRESSION: UTI, not seems to be fungal. The patient has CHF. Has also lung infiltrates. 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 RECOMMENDATION: Start on Fluconazole through G-tube. May order a chest x-ray. Prognosis is poor. At the end of my exam, I thank Dr. Crowder for involving me in the care of this patient. Bay Richter M.D. DR: SAMUEL JOB#: [id number] CC: JUAN MANUEL
--- NOTE | 2019-06-12 19:56 | NUR ---
HAND-OFF: Report given to Carly/FELY.
--- NOTE | 2019-06-12 19:57 | NUR ---
NURSE NOTES: Received report from FELY Baptiste. Patient is awake and obtunded, lying in semi thao's; resting well. No signs of acute cardiorespiratory distress noted. On nasal cannula @ 2LPM and tolerating well. With G tube intact and patent with residual of 10cc. G tube feeding on hold. Checked IV site and flushed. No erythema, bleeding or infiltration noted. On perera catheter draining well to gravity. Bed at lowest position, brakes on, siderails x3. Call light within reach. Will continue to monitor.
[2019-06-12 20:00] VITALS: BP 131/66
[2019-06-13] VITALS: BP 120/65
--- NOTE | 2019-06-13 02:30 | NUR ---
NURSE NOTES: Resting throughout the night. No significant change of condition noted. Continuous suctioning done. Will continue to monitor.
--- NOTE | 2019-06-13 03:45 | Progress Note ---
DATE: 06/11/2019 CARDIOLOGY PROGRESS NOTE Late entry. SUBJECTIVE: The patient has congestion. She remains on antimicrobials as well as intravenous fluids. Oxygen requirements have decreased. OBJECTIVE: VITAL SIGNS: Blood pressure 105/55, pulse 73, respirations 18. LUNGS: Coarse breath sounds, rhonchi. HEART: Regular rhythm and rate. Normal S1, S2 with a fourth heart sound. A 1/6 systolic murmur at apex. ABDOMEN: Soft. G-tube intact. EXTREMITIES: Trace edema. Monitor sinus with atrial ectopy nonsustained. LABORATORY DATA: Notable for sodium 135, potassium 4.3, bicarb 21, BUN 117, creatinine 2.7, glucose 143. Albumin 2.6. White count 7.7, hemoglobin 8.5. IMPRESSION: 1. Urinary tract infection with sepsis. 2. Hyponatremia, improved. 3. Hypochloremia, improved. 4. Acute renal failure, slightly improved. 5. Advanced dementia. 6. Acute on chronic diastolic congestive heart failure. 7. Dysphagia. PLAN: 1. Respiratory hygiene. 2. Antimicrobials. 3. Hold diuresis. 4. Nutrition by feeding tube. 5. Cautious saline. 6. Hydration for now. Kavon Peña M.D. DR: JANEY JOB#: [id number] CC:
--- NOTE | 2019-06-13 03:45 | Progress Note ---
DATE: 06/10/2019 CARDIOLOGY PROGRESS NOTE Late entry for 06/10/2019. SUBJECTIVE: The patient has been on diuretic therapy. Respiratory symptoms have decreased, but she remains congested. Monitored rhythm, sinus tachycardia and sinus arrhythmia with atrial ectopy. OBJECTIVE: VITAL SIGNS: Blood pressure 114/59, pulse 20, respirations 20, and oxygen saturation on 2 L nasal cannula 95%. LUNGS: Coarse breath sounds. Few rales. HEART: Regular rhythm and rate. Normal S1, S2 with a 1/6 systolic murmur at apex. ABDOMEN: Soft, nontender. EXTREMITIES: With trace edema. LABORATORY DATA: No new labs. IMPRESSION: 1. Acute renal failure. 2. Hyponatremia. 3. Hypochloremia. 4. Acute on chronic diastolic congestive heart failure. 5. Dysphagia with aspiration, G-tube. 6. Moderate protein-calorie malnutrition. 7. Advanced dementia. PLAN: 1. Continue diuresis. 2. Free water restriction. 3. Respiratory hygiene. 4. Antimicrobials. Kavon Peña M.D. DR: JANEY JOB#: [id number] CC:
[2019-06-13 04:00] VITALS: BP 135/68
--- NOTE | 2019-06-13 04:00 | Progress Note ---
DATE: 06/12/2019 CARDIOLOGY PROGRESS NOTE SUBJECTIVE: Still with some congestion. No shortness of breath. Saturating adequately on low-dose oxygen by nasal cannula. OBJECTIVE: VITAL SIGNS: Blood pressure 129/86, pulse 79, respirations 20, and afebrile. LUNGS: Coarse breath sounds. Few rhonchi. HEART: Regular rhythm and rate. Normal S1, S2. ABDOMEN: Soft. EXTREMITIES: Trace edema. LABORATORY DATA: No new laboratory studies. IMPRESSION: 1. Acute renal failure. 2. Acute on chronic diastolic congestive heart failure. 3. Urinary tract infection with sepsis. 4. Aspiration. 5. Hypertensive heart disease. 6. Hypothyroidism. 7. Paroxysmal atrial ectopy. PLAN: 1. Decrease IV fluids. 2. Recheck lab studies. 3. Continue antimicrobials. 4. Respiratory hygiene. 5. Aspiration precautions. 6. DVT prophylaxis. 7. Continue anti-seizure therapy. 8. Maintain beta-blockade. Kavon Peña M.D. DR: JANEY JOB#: [id number] CC:
--- NOTE | 2019-06-13 04:00 | Consultation ---
DATE OF CONSULTATION: 06/09/2019 CARDIOLOGY CONSULTATION CONSULTING PHYSICIAN: Kavon Peña M.D. REFERRING PHYSICIAN: Jeffrey Crowder M.D. REASON FOR CONSULT: Acute congestive heart failure. HISTORY OF PRESENT ILLNESS: This is a 78-year-old female. She resides at a [facility] facility and has advanced dementia due to prior cerebrovascular disease. She was noted to be increasingly shortness of breath for about an hour and prior to the transfer and summoned by paramedics to the emergency room where she was hypoxic, tachypneic, and slightly diaphoretic. The patient was placed on a non-rebreather mask and further workup was reviewed. PAST MEDICAL HISTORY: Hypertension, history of right femur fracture, type 2 diabetes mellitus, cerebrovascular disease with dementia, seizure disorder, degenerative valve disease, and osteoarthritis. Dysphagia with G-tube and chronic kidney disease. ALLERGIES: None. MEDICATIONS: Prior to admission, reviewed and reconciled. FAMILY HISTORY: Noncontributory. SOCIAL HISTORY: There is no prior record of smoking, alcohol, or substance abuse. REVIEW OF SYSTEMS: Not obtainable from the patient. PHYSICAL EXAMINATION: VITAL SIGNS: Blood pressure 140/82, pulse 88, respirations 21. Afebrile. Oxygen saturation on a non-rebreather mask is 94%. GENERAL: Temporal wasting. Diaphoretic. HEENT: Poor oral hygiene. NECK: Elevated jugular venous pressure. Some accessory muscle use. LUNGS: With bilateral rhonchi and rales. CARDIAC: Regular rhythm and rate. Normal S1, S2 with a fourth heart sound. A 1/6 systolic murmur at apex. ABDOMEN: Soft. G-tube intact. EXTREMITIES: No edema. NEUROLOGIC: The patient is nonverbal. IMAGING: Chest x-ray reveals pulmonary venous congestion. LABORATORY DATA: White count 11.3, hemoglobin 10.5. Sodium 123, potassium 4.3, chloride 86, bicarb 24, BUN 132, and creatinine 3. Glucose 163. Pro-natriuretic peptide was 808. Albumin 2.9. IMPRESSION: 1. Acute diastolic congestive heart failure. 2. Acute renal failure. 3. Hyponatremia. 4. Hypochloremia. 5. Moderate protein-calorie malnutrition. 6. Cerebrovascular disease with dementia. 7. Urinary tract infection with sepsis. PLAN: 1. Cautious diuresis. 2. Antimicrobials. 3. May need saline hydration with concomitant diuresis to correct sodium deficit. 4. DVT prophylaxis. 5. Recheck lab studies. 6. DNR/DNI based on advanced directives. 7. Consider adjustment of G-tube feeding formula. No free water per G-tube. Kavon Peña M.D. DR: FILIBERTO JOB#: [id number] CC:
[2019-06-13] MEDS: NovoLOG Insulin Flexpen SUBQ SCH ×4 (05:37→21:07)
--- NOTE | 2019-06-13 07:10 | NUR ---
NURSE NOTES: Received report from FELY Carroll. Patient is awake and obtunded, lying in left semi thao's; resting well. No signs of acute cardiorespiratory distress noted. On nasal cannula @ 2LPM and tolerating well. With G tube intact and patent. G tube feeding on hold. Checked IV site and flushed. No erythema, bleeding or infiltration noted. On perera catheter draining yellow urine to gravity. Bed at lowest position, brakes on, locked, and siderailsx3. Call light within reach. Will continue to monitor.
[2019-06-13] MEDS: Albuterol/Ipratropium 3ml neb HHN SCH ×3 (07:23→19:18)
--- NOTE | 2019-06-13 07:30 | NUR ---
HAND-OFF: Report given to FELY Ponce. Plan of care endorsed.
[2019-06-13 08:00] VITALS: BP 123/91
--- NOTE | 2019-06-13 08:37 | Pulmonology Progress Note ---
Assessment/Plan Assessment/Plan Impression: Congestive heart failure Possible pneumonia Urinary tract infection Encephalopathy, Dementia HO Seizures Anemia Acute renal failure Diabetes Hypertension Previous CVA Cerebral Palsy HO right femur fracture Debility Plan IV antibiotics monitor fluid status O2 as needed neb therapy maintain meds Monitor labs DVT prophylaxis impression, plan, and exam edited and reviewed in detail care discussed with RN Subjective Allergies: Coded Allergies: No Known Allergies (Verified , 12/31/09) Subjective overall care reviewed and discussed Objective Last 24 Hour Vital Signs Date Time Temp Pulse Resp B/P (MAP) Pulse Ox O2 Delivery O2 Flow Rate FiO2 06/13/19 08:00 97.9 107 18 123/91 (102) 98 06/13/19 07:23 75 18 100 Nasal Cannula 2.0 28 73 18 99 06/13/19 04:00 76 06/13/19 04:00 97.5 80 20 135/68 (90) 99 06/13/19 00:00 98.8 79 18 120/65 (83) 99 06/13/19 00:00 75 06/12/19 23:59 84 20 100 Nasal Cannula 2.0 28 06/12/19 23:49 83 20 98 Nasal Cannula 2.0 28 06/12/19 21:00 Nasal Cannula 2.0 06/12/19 20:00 75 06/12/19 20:00 98.5 82 20 131/66 (87) 99 06/12/19 19:37 78 20 99 Nasal Cannula 2.0 28 06/12/19 19:28 77 20 98 Nasal Cannula 2.0 28 06/12/19 16:30 98.4 79 20 106/58 (74) 99 06/12/19 16:00 78 06/12/19 13:17 78 18 100 Nasal Cannula 2.0 28 78 18 100 06/12/19 12:00 98.6 78 18 117/62 (80) 100 06/12/19 12:00 82 06/12/19 09:00 Nasal Cannula 2.0 Intake and Output 06/12/19 06/13/19 19:00 07:00 Output Total 800 ml 1200 ml Balance -800 ml -1200 ml Output Urine Total 800 ml 1200 ml # Bowel Movements 1 Objective WDWN NAD on oxygen reduced breath sounds bilaterally with scattered rhonchi [id number] without MRG NABS nontender no HSM no CC mild edema confused nonfocal Laboratory Tests 06/13/19 07:55: White Blood Count [Pending], Red Blood Count [Pending], Hemoglobin [Pending], Hematocrit [Pending], Mean Corpuscular Volume [Pending], Mean Corpuscular Hemoglobin [Pending], Mean Corpuscular Hemoglobin Concent [Pending], Red Cell Distribution Width [Pending], Platelet Count [Pending], Mean Platelet Volume [ Pending], Neutrophils (%) (Auto) [Pending], Lymphocytes (%) (Auto) [Pending], Monocytes (%) (Auto) [Pending], Eosinophils (%) (Auto) [Pending], Basophils (%) (Auto) [Pending], Sodium Level [Pending], Potassium Level [Pending], Chloride Level [Pending], Carbon Dioxide Level [Pending], Blood Urea Nitrogen [Pending], Creatinine [Pending], Estimat Glomerular Filtration Rate [Pending], Glucose Level [Pending], Calcium Level [Pending], Magnesium Level [Pending], Total Bilirubin [Pending], Aspartate Amino Transf (AST/SGOT) [Pending], Alanine Aminotransferase (ALT/SGPT) [Pending], Alkaline Phosphatase [Pending], Pro-B- Type Natriuretic Peptide [Pending], Total Protein [Pending], Albumin [Pending], Globulin [Pending] Current Medications Medications (Trade) Dose Ordered Sig/Aaron Route PRN Reason Start Time Stop Time Status Last Admin Dose Admin Acetaminophen (Tylenol) 650 mg Q4H PRN GT Mild Pain/Temp > 100.5 06/10/19 00:45 07/10/19 00:44 Albuterol/ Ipratropium (Albuterol/ Ipratropium) 3 ml Q6HRT HHN 06/10/19 01:00 06/15/19 00:59 06/13/19 07:23 Dextrose (Dextrose 50%) 25 ml Q30M PRN IV Hypoglycemia 06/10/19 00:45 07/10/19 00:44 Dextrose (Dextrose 50%) 50 ml Q30M PRN IV Hypoglycemia 06/10/19 00:45 07/10/19 00:44 Fluconazole (Diflucan) 100 mg DAILY GT 06/12/19 10:45 06/19/19 10:44 06/12/19 11:25 Gabapentin (Neurontin) 100 mg BID GT 06/11/19 09:00 07/11/19 08:59 06/12/19 18:06 Guaifenesin (Robitussin) 100 mg Q6H PRN GT For Cough 06/11/19 08:30 07/11/19 08:29 Heparin Sodium (Porcine) (Heparin 5000 units/ml) 5,000 units EVERY 12 HOURS SUBQ 06/10/19 21:00 07/10/19 20:59 Insulin Aspart (NovoLOG) BEFORE MEALS AND HS SUBQ 06/10/19 06:30 07/10/19 06:29 06/13/19 05:37 Levetiracetam (Keppra) 1,000 mg Q12HR GT 06/11/19 09:00 07/11/19 08:59 06/12/19 21:38 Levothyroxine Sodium (Synthroid) 50 mcg ACBREAKFAST GT 06/12/19 06:30 07/12/19 06:29 06/13/19 05:35 Metoclopramide HCl (Reglan) 5 mg Q8H PRN IVP Nausea & Vomiting 06/11/19 08:30 07/11/19 08:29 Sodium Chloride 1,000 ml @ 50 mls/hr Q20H IV 06/13/19 02:30 07/13/19 02:29 06/13/19 03:07 Torey Douglass MD Jun 13, 2019 08:37
[2019-06-13 08:41] LABS: BASOPHILS % (AUTO) 0.5 % (0.0-2.0); EOSINOPHILS % (AUTO) 2.7 % (0.0-3.0); HEMATOCRIT 30.3 % (37.0-47.0); HEMOGLOBIN 9.4 G/DL (12.0-16.0); MEAN CORPUSCULAR VOLUME 87 FL (80-99); MONOCYTES % (AUTO) 11.8 % (1.0-10.0); PLATELET COUNT 153 K/UL (150-450); RED CELL DISTRIBUTION WIDTH 17.6 % (11.6-14.8); WHITE BLOOD COUNT 8.2 K/UL (4.8-10.8)
[2019-06-13 09:06] LABS: ALANINE AMINOTRANSFERASE 33 U/L (12-78); ALBUMIN 2.5 G/DL (3.4-5.0); ALBUMIN/GLOBULIN RATIO 0.5 (1.0-2.7); ALKALINE PHOSPHATASE 121 U/L (46-116); ANION GAP 10 mmol/L (5-15); ASPARTATE AMINO TRANSFERASE 18 U/L (15-37); BILIRUBIN,TOTAL 0.4 MG/DL (0.2-1.0); BLOOD UREA NITROGEN 63 mg/dL (7-18); CALCIUM 8.2 MG/DL (8.5-10.1); CARBON DIOXIDE 22 MMOL/L (21-32); CHLORIDE 115 MMOL/L (98-107); POTASSIUM 4.2 MMOL/L (3.5-5.1); SODIUM 147 MMOL/L (136-145)
--- NOTE | 2019-06-13 09:07 | NUR ---
NURSE NOTES: Spoke with Dr. Griffith. and Dr. Griffith saw patient.
[2019-06-13] MEDS: Fluconazole 100mg tab GT SCH (09:09)
[2019-06-13] MEDS: Heparin 5000 units/ml inj SUBQ SCH ×2 (09:09→21:03)
--- NOTE | 2019-06-13 11:12 | NUR ---
CASE MANAGEMENT: REVIEW 06/13/2019 SI:HEART FAILURE. ACUTE KIDNEY FAILURE. PNA, UTI 97.9 107 18 123/91 98 NC 2L RBC 3.50; H/H 9.4/30.3 NA+ 147; BUN 63; CREA 2.0 BNP 2781; CA 8.2; MG 2.6; ALK PHOS 121 IS:IV CEFEPIME Q8H IV REGLAN Q8H HEPARIN SQ Q12 IVF @ 50 mL/HR DIFLUCAN GT QD GABAPENTIN GT BID INSULIN ASPART SUBQ AC/HS KEPPRA GT Q12H ERTAPENEM IV Q24H NOVOLOG QD AC&HS ALBUTEROL HHN Q6/PRN TELE PLAN: FLU WITH SP CX LABS BNP, MG, CMP, CXR DVT PROPHYLAXIS
--- NOTE | 2019-06-13 11:26 | Infectious Diseases Prog Note ---
Assessment/Plan Assessment/Plan antibiotics : fluconazole A 1. pneumonia 2. fungal UTI 3. diabetes mellitus 4. hypertension 5. 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 start cefepime 2. continue fluconazole 5 more days 3. will follow up cultures 4. sputum culture Subjective ROS Limited/Unobtainable: Yes Allergies: Coded Allergies: No Known Allergies (Verified , 12/31/09) Objective Vital Signs Last 24 Hour Vital Signs Date Time Temp Pulse Resp B/P (MAP) Pulse Ox O2 Delivery O2 Flow Rate FiO2 06/13/19 08:00 97.9 107 18 123/91 (102) 98 06/13/19 07:23 75 18 100 Nasal Cannula 2.0 28 73 18 99 06/13/19 04:00 76 06/13/19 04:00 97.5 80 20 135/68 (90) 99 06/13/19 00:00 98.8 79 18 120/65 (83) 99 06/13/19 00:00 75 06/12/19 23:59 84 20 100 Nasal Cannula 2.0 28 06/12/19 23:49 83 20 98 Nasal Cannula 2.0 28 06/12/19 21:00 Nasal Cannula 2.0 06/12/19 20:00 75 06/12/19 20:00 98.5 82 20 131/66 (87) 99 06/12/19 19:37 78 20 99 Nasal Cannula 2.0 28 06/12/19 19:28 77 20 98 Nasal Cannula 2.0 28 06/12/19 16:30 98.4 79 20 106/58 (74) 99 06/12/19 16:00 78 06/12/19 13:17 78 18 100 Nasal Cannula 2.0 28 78 18 100 06/12/19 12:00 98.6 78 18 117/62 (80) 100 06/12/19 12:00 82 Height (Feet): 5 Height (Inches): 5.00 Weight (Pounds): 154 Respiratory/Chest: lungs clear Cardiovascular: normal rate, regular rhythm, no gallop/murmur Abdomen: soft, non tender, other - GT Extremities: other - + edema, right arm PICC Laboratory Tests Test 06/13/19 07:55 White Blood Count 8.2 K/UL (4.8-10.8) Red Blood Count 3.50 M/UL (4.20-5.40) L Hemoglobin 9.4 G/DL (12.0-16.0) L Hematocrit 30.3 % (37.0-47.0) L Mean Corpuscular Volume 87 FL (80-99) Mean Corpuscular Hemoglobin 26.8 PG (27.0-31.0) L Mean Corpuscular Hemoglobin Concent 30.9 G/DL (32.0-36.0) L Red Cell Distribution Width 17.6 % (11.6-14.8) H Platelet Count 153 K/UL (150-450) Mean Platelet Volume 5.6 FL (6.5-10.1) L Neutrophils (%) (Auto) 63.0 % (45.0-75.0) Lymphocytes (%) (Auto) 22.0 % (20.0-45.0) Monocytes (%) (Auto) 11.8 % (1.0-10.0) H Eosinophils (%) (Auto) 2.7 % (0.0-3.0) Basophils (%) (Auto) 0.5 % (0.0-2.0) Sodium Level 147 MMOL/L (136-145) H Potassium Level 4.2 MMOL/L (3.5-5.1) Chloride Level 115 MMOL/L (98-107) H Carbon Dioxide Level 22 MMOL/L (21-32) Anion Gap 10 mmol/L (5-15) Blood Urea Nitrogen 63 mg/dL (7-18) H Creatinine 2.0 MG/DL (0.55-1.30) H Estimat Glomerular Filtration Rate mL/min (>60) Glucose Level 108 MG/DL (74-106) H Calcium Level 8.2 MG/DL (8.5-10.1) L Magnesium Level 2.6 MG/DL (1.8-2.4) H Total Bilirubin 0.4 MG/DL (0.2-1.0) Aspartate Amino Transf (AST/SGOT) 18 U/L (15-37) Alanine Aminotransferase (ALT/SGPT) 33 U/L (12-78) Alkaline Phosphatase 121 U/L (46-116) H Pro-B-Type Natriuretic Peptide 2781 pg/mL (0-125) H Total Protein 7.2 G/DL (6.4-8.2) Albumin 2.5 G/DL (3.4-5.0) L Globulin 4.7 g/dL Albumin/Globulin Ratio 0.5 (1.0-2.7) L Current Medications Medications (Trade) Dose Ordered Sig/Aaron Route PRN Reason Start Time Stop Time Status Last Admin Dose Admin Acetaminophen (Tylenol) 650 mg Q4H PRN GT Mild Pain/Temp > 100.5 06/10/19 00:45 07/10/19 00:44 Albuterol/ Ipratropium (Albuterol/ Ipratropium) 3 ml Q6HRT HHN 06/10/19 01:00 06/15/19 00:59 06/13/19 07:23 Dextrose (Dextrose 50%) 25 ml Q30M PRN IV Hypoglycemia 06/10/19 00:45 07/10/19 00:44 Dextrose (Dextrose 50%) 50 ml Q30M PRN IV Hypoglycemia 06/10/19 00:45 07/10/19 00:44 Fluconazole (Diflucan) 100 mg DAILY GT 06/12/19 10:45 06/19/19 10:44 06/13/19 09:09 Gabapentin (Neurontin) 100 mg BID GT 06/11/19 09:00 07/11/19 08:59 06/13/19 09:09 Guaifenesin (Robitussin) 100 mg Q6H PRN GT For Cough 06/11/19 08:30 07/11/19 08:29 Heparin Sodium (Porcine) (Heparin 5000 units/ml) 5,000 units EVERY 12 HOURS SUBQ 06/10/19 21:00 07/10/19 20:59 06/13/19 09:09 Insulin Aspart (NovoLOG) BEFORE MEALS AND HS SUBQ 06/10/19 06:30 07/10/19 06:29 06/13/19 05:37 Levetiracetam (Keppra) 1,000 mg Q12HR GT 06/11/19 09:00 07/11/19 08:59 06/13/19 09:09 Levothyroxine Sodium (Synthroid) 50 mcg ACBREAKFAST GT 06/12/19 06:30 07/12/19 06:29 06/13/19 05:35 Metoclopramide HCl (Reglan) 10 mg Q8H IVP 06/13/19 12:00 07/13/19 11:59 Sodium Chloride 1,000 ml @ 50 mls/hr Q20H IV 06/13/19 02:30 07/13/19 02:29 06/13/19 03:07 Tyrel Prieto MD Jun 13, 2019 11:26
--- NOTE | 2019-06-13 11:27 | General Progress Note ---
Assessment/Plan Status: stable Assessment/Plan: Assessment - TF intolerance, likely due to underlying DM gastroparesis - hyponatremia, resolved - OBS - dysphagia Recommendations - short term Reglan trial - Elevate HOB - Re-try TF on Reglan - d/w sister Anastasiya hyatt J tube option Subjective Allergies: Coded Allergies: No Known Allergies (Verified , 12/31/09) Objective Last 24 Hour Vital Signs Date Time Temp Pulse Resp B/P (MAP) Pulse Ox O2 Delivery O2 Flow Rate FiO2 06/13/19 08:00 97.9 107 18 123/91 (102) 98 06/13/19 07:23 75 18 100 Nasal Cannula 2.0 28 73 18 99 06/13/19 04:00 76 06/13/19 04:00 97.5 80 20 135/68 (90) 99 06/13/19 00:00 98.8 79 18 120/65 (83) 99 06/13/19 00:00 75 06/12/19 23:59 84 20 100 Nasal Cannula 2.0 28 06/12/19 23:49 83 20 98 Nasal Cannula 2.0 28 06/12/19 21:00 Nasal Cannula 2.0 06/12/19 20:00 75 06/12/19 20:00 98.5 82 20 131/66 (87) 99 06/12/19 19:37 78 20 99 Nasal Cannula 2.0 28 06/12/19 19:28 77 20 98 Nasal Cannula 2.0 28 06/12/19 16:30 98.4 79 20 106/58 (74) 99 06/12/19 16:00 78 06/12/19 13:17 78 18 100 Nasal Cannula 2.0 28 78 18 100 06/12/19 12:00 98.6 78 18 117/62 (80) 100 06/12/19 12:00 82 Intake and Output 06/12/19 06/13/19 19:00 07:00 Output Total 800 ml 1200 ml Balance -800 ml -1200 ml Output Urine Total 800 ml 1200 ml # Bowel Movements 1 Laboratory Tests 06/13/19 07:55: White Blood Count 8.2, Red Blood Count 3.50L, Hemoglobin 9.4L, Hematocrit 30.3L , Mean Corpuscular Volume 87, Mean Corpuscular Hemoglobin 26.8L, Mean Corpuscular Hemoglobin Concent 30.9L, Red Cell Distribution Width 17.6H, Platelet Count 153, Mean Platelet Volume 5.6L, Neutrophils (%) (Auto) 63.0, Lymphocytes (%) (Auto) 22.0, Monocytes (%) (Auto) 11.8H, Eosinophils (%) (Auto) 2.7, Basophils (%) (Auto) 0.5, Sodium Level 147H, Potassium Level 4.2, Chloride Level 115H, Carbon Dioxide Level 22, Anion Gap 10, Blood Urea Nitrogen 63H, Creatinine 2.0H, Estimat Glomerular Filtration Rate , Glucose Level 108H, Calcium Level 8.2L, Magnesium Level 2.6H, Total Bilirubin 0.4, Aspartate Amino Transf (AST/SGOT) 18, Alanine Aminotransferase (ALT/SGPT) 33, Alkaline Phosphatase 121H, Pro-B-Type Natriuretic Peptide 2781H, Total Protein 7.2, Albumin 2.5L, Globulin 4.7, Albumin/Globulin Ratio 0.5L Height (Feet): 5 Height (Inches): 5.00 Weight (Pounds): 154 Darrell Griffith MD Jun 13, 2019 11:27
--- NOTE | 2019-06-13 11:31 | NUR ---
*-* INSURANCE *--* ALL CLINICALS AND REVIEWS HAVE BEEN FAXED TO: [facility] FAX ALL CLINICALS TO [phone]
--- NOTE | 2019-06-13 11:57 | NUR ---
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 2) Swallowing difficulty r/t dysphagia as evidenced by pt is GT dep. CURRENT TF:Glucerna 1.2 @45ml /hr x22 hrs ENTERAL NUTRITION RECOMMENDATIONS: Glucerna 1.5 @ 45ml/hr x 22 hrs to provide 990ml, 1485kcal, 81g prot, 751ml free water * Rec TF change to Glucerna 1.5 for less free H2O (hyponatremia) * Initiate Glucerna 1.5 @ 25ml/hr x 6 hrs, advance 10ml q 4-6 hrs as tolerated to goal rate. * Hold 1 hr before and after Synthroid med * HOB over 30 degrees/ water flush per MD ADDITIONAL RECOMMENDATIONS: 1) Monitor lytes closely, need for TF change ( Pt on Nepro CLIPPER AND TURNER, possible h/o electrolyte imbalance) 2) F/up w/ wound eval rec adding MVI x 1, Vit C 250mg QD, Maik 1pkt BID via PEG 3) Calibrate bed scale for accurate wt BED WT: 154 lbs vs SNF recorded WT: 143 lbs
[2019-06-13 12:00] VITALS: BP 144/71
[2019-06-13] MEDS: Metoclopramide 10mg/2ml Inj IVP SCH ×2 (12:13→21:02)
[2019-06-13] MEDS: Cefepime HCl 1 GM in D5W 55 ML IVPB SCH (14:24)
[2019-06-13 16:00] VITALS: BP 124/50
--- NOTE | 2019-06-13 17:40 | General Progress Note ---
Assessment/Plan Problem List: (1) HTN (hypertension) ICD Codes: I10 - Essential (primary) hypertension SNOMED: 36157509 (2) Pneumonia ICD Codes: J18.9 - Pneumonia, unspecified organism SNOMED: 676146822 (3) ATN (acute tubular necrosis) ICD Codes: N17.0 - Acute kidney failure with tubular necrosis SNOMED: 87868108 (4) CHF (congestive heart failure) ICD Codes: I50.9 - Heart failure, unspecified SNOMED: 10771598 Qualifiers: Qualified Codes: I50.9 - Heart failure, unspecified (5) Encephalopathy acute ICD Codes: G93.40 - Encephalopathy, unspecified SNOMED: 1431124 (6) UTI (urinary tract infection) ICD Codes: N39.0 - Urinary tract infection, site not specified SNOMED: 79949580 Qualifiers: Qualified Codes: N30.00 - Acute cystitis without hematuria Status: stable Assessment/Plan: ivf monitor volume status glycopyrrolate resp rx suctioning gt feeds reglan gi eval noted bowel regime iv abx per id follow up cultures Subjective ROS Limited/Unobtainable: Yes Constitutional: Reports: malaise, weakness HEENT: Reports: no symptoms Cardiovascular: Reports: no symptoms Respiratory: Reports: no symptoms Gastrointestinal/Abdominal: Reports: difficulty swallowing Genitourinary: Reports: no symptoms Neurologic/Psychiatric: Reports: pre-existing deficit, seizure Endocrine: Reports: no symptoms Hematologic/Lymphatic: Reports: no symptoms Allergies: Coded Allergies: No Known Allergies (Verified , 12/31/09) All Systems: reviewed and negative except above Subjective less congested. feeds on hold. Bun/cr trending down. kub- no obstruction. +stool Objective Last 24 Hour Vital Signs Date Time Temp Pulse Resp B/P (MAP) Pulse Ox O2 Delivery O2 Flow Rate FiO2 06/13/19 13:24 67 18 100 Nasal Cannula 2.0 28 64 18 100 06/13/19 12:00 98.1 75 22 144/71 (95) 100 06/13/19 11:45 74 06/13/19 09:02 75 06/13/19 09:00 Nasal Cannula 2.0 06/13/19 08:00 97.9 107 18 123/91 (102) 98 06/13/19 07:42 77 06/13/19 07:23 75 18 100 Nasal Cannula 2.0 28 73 18 99 06/13/19 04:00 76 06/13/19 04:00 97.5 80 20 135/68 (90) 99 06/13/19 00:00 98.8 79 18 120/65 (83) 99 06/13/19 00:00 75 06/12/19 23:59 84 20 100 Nasal Cannula 2.0 28 06/12/19 23:49 83 20 98 Nasal Cannula 2.0 28 06/12/19 21:00 Nasal Cannula 2.0 06/12/19 20:00 75 06/12/19 20:00 98.5 82 20 131/66 (87) 99 06/12/19 19:37 78 20 99 Nasal Cannula 2.0 28 06/12/19 19:28 77 20 98 Nasal Cannula 2.0 28 Intake and Output 06/12/19 06/13/19 19:00 07:00 Output Total 800 ml 1200 ml Balance -800 ml -1200 ml Output Urine Total 800 ml 1200 ml # Bowel Movements 1 Laboratory Tests 06/13/19 07:55: White Blood Count 8.2, Red Blood Count 3.50L, Hemoglobin 9.4L, Hematocrit 30.3L , Mean Corpuscular Volume 87, Mean Corpuscular Hemoglobin 26.8L, Mean Corpuscular Hemoglobin Concent 30.9L, Red Cell Distribution Width 17.6H, Platelet Count 153, Mean Platelet Volume 5.6L, Neutrophils (%) (Auto) 63.0, Lymphocytes (%) (Auto) 22.0, Monocytes (%) (Auto) 11.8H, Eosinophils (%) (Auto) 2.7, Basophils (%) (Auto) 0.5, Sodium Level 147H, Potassium Level 4.2, Chloride Level 115H, Carbon Dioxide Level 22, Anion Gap 10, Blood Urea Nitrogen 63H, Creatinine 2.0H, Estimat Glomerular Filtration Rate , Glucose Level 108H, Calcium Level 8.2L, Magnesium Level 2.6H, Total Bilirubin 0.4, Aspartate Amino Transf (AST/SGOT) 18, Alanine Aminotransferase (ALT/SGPT) 33, Alkaline Phosphatase 121H, Pro-B-Type Natriuretic Peptide 2781H, Total Protein 7.2, Albumin 2.5L, Globulin 4.7, Albumin/Globulin Ratio 0.5L Height (Feet): 5 Height (Inches): 5.00 Weight (Pounds): 154 Objective General Appearance: WD/WN, alert Neck: supple Cardiovascular: normal rate, regular rhythm Respiratory/Chest: chest wall non-tender, no respiratory distress, no accessory muscle use, rhonchi - bilaterally Abdomen: normal bowel sounds, non tender, soft, no organomegaly Edema: no edema noted Arm (L), no edema noted Arm (R), no edema noted Leg (L), no edema noted Leg (R), no edema noted Pedal (L), no edema noted Pedal (R), no edema noted Generalized Jeffrey Crowder MD Jun 13, 2019 17:40
--- NOTE | 2019-06-13 19:00 | NUR ---
NURSE NOTES: Received patient from FELY Ponce, patient in stable condition, alert not oriented, responsive to stimuli,no distress, IV on right chest g 22, asymptomatic,intact, patent, gtube patent, bed low&locked, side rails upx3, will continue to monitor and reassess
--- NOTE | 2019-06-13 19:45 | Consultation ---
DATE OF CONSULTATION: 06/13/2019 GASTROENTEROLOGY CONSULTATION CONSULTING PHYSICIAN: Darrell Griffith M.D. CHIEF COMPLAINT: I was asked to see this patient by Dr. Jeffrey Crowder and Dr. Kavon Peña for gastrostomy feeding intolerance. HISTORY OF PRESENT ILLNESS: The patient is an unfortunate 78-year-old woman, with a longstanding history of mental retardation who underwent gastrostomy tube placement in November 2017 due to stroke. The patient has been on long-term enteral feeding since then. The patient has been seen a few times and her gastrostomy tube has been changed. On this admission, however the patient has been noted to have her frequent elevated residuals and therefore this consultation was generated. The patient has had no vomiting, but did come with some respiratory difficulties. The patient herself is obtunded and most of the information is only available from the chart and discussion with the patient's sister, Anastasiya Ugalde. The patient has had no diarrhea. PAST MEDICAL HISTORY: History of childhood mental retardation, seizure disorder, history of stroke, chronic kidney disease, hypertension, congestive heart failure, status post with gastrostomy tube placement for dysphagia. FAMILY HISTORY: Noncontributory. SOCIAL HISTORY: The patient has had no history of smoking or drinking. Her sisters looks after her affairs and she requires [id number] care. REVIEW OF SYSTEMS: Otherwise negative. PHYSICAL EXAMINATION: GENERAL: Debilitated, nonverbal woman, seen in her bed, in no distress. HEENT: Normocephalic, atraumatic. Dentition is poor. NECK: Supple. CHEST: Reveals scattered rhonchi. CARDIOVASCULAR: Revealed a regular rate. ABDOMEN: Soft with good bowel sounds. Gastrostomy tube is in good position. There was no masses or organomegaly. EXTREMITIES: Revealed no edema. NEUROLOGIC: Notable for mental obtundation. LABORATORY DATA: Noted. ASSESSMENT: This patient has developed tube feeding intolerance, which is likely a form of gastroparesis. The cause of her gastroparesis is uncertain, but diabetes would be high in the differential as she is diabetic. As to why, she has now presented with diabetic gastroparesis maybe related to the hyponatremia seen in this admission, which may have also secondarily effect her neural function. The hyponatremia has resolved, but she apparently still is not tolerating tube feedings. I have discussed the options of motility treatment with Reglan versus jejunostomy conversion. There was a long discussion held and I answered all of her sister's questions. I suggested for that for the time being, give the patient a short-term trial of Reglan to see if she would even respond to this medication with respect to her feeding tolerance. The patient's sister was made aware of the long-term risks associated with Reglan use. The problems of jejunostomy conversion including recurrent trips to the hospital to have it replaced was also explained. RECOMMENDATIONS: 1. Begin trial of intravenous Reglan and check tube feeding tolerance. 2. Elevate head of bed. 3. Continue other management as outlined in the chart. 4. I will follow this patient with you. Thank you for asking me to participate in the care of this patient. Darrell Griffith M.D. DR: GYPSY JOB#: [id number] CC: JUAN MANUEL
--- NOTE | 2019-06-13 19:45 | NUR ---
HAND-OFF: Report given to FELY Mcmahan.
[2019-06-13 20:00] VITALS: BP 121/63
[2019-06-14] VITALS (8 sets, daily range): BP systolic 127–165; BP diastolic 68–86
[2019-06-14] MEDS: Albuterol/Ipratropium 3ml neb HHN SCH ×3 (00:52→13:22)
--- NOTE | 2019-06-14 03:45 | Progress Note ---
DATE: 06/13/2019 SUBJECTIVE: The patient has less congestion. Feedings on hold due to recurring aspiration. No fevers. Monitored rhythm sinus and sinus tachycardia with atrial ectopy nonsustained. OBJECTIVE: VITAL SIGNS: Blood pressure 124/50, pulse 70, respirations 20. LUNGS: Coarse breath sounds, rhonchi. HEART: Regular rhythm and rate. Normal S1, S2. Fourth heart sound. ABDOMEN: Soft. EXTREMITIES: No edema. LABORATORY DATA: White count 8.2, hemoglobin 9.4. Potassium 4.2, sodium 147, bicarb 22, BUN 63, creatinine 2. Pro-natriuretic peptide 2700. IMPRESSION: 1. Acute renal failure, improving. 2. Dehydration, hypernatremia. 3. Hyperchloremia. 4. Acute on chronic diastolic congestive heart failure. 5. Moderate to severe protein-calorie malnutrition. 6. Healthcare-acquired aspiration pneumonia. 7. Dysphagia with G-tube. PLAN: 1. Promotility agents. 2. Aspiration precautions. 3. Antimicrobials. 4. Respiratory hygiene. 5. Hypotonic IV fluids. 6. Hold diuretics. 7. DVT prophylaxis. 8. Continue thyroid replacement. Kavon Peña M.D. DR: JANEY JOB#: [id number] CC:
[2019-06-14] MEDS: Metoclopramide 10mg/2ml Inj IVP SCH ×3 (04:49→20:25)
[2019-06-14 06:51] LABS: ALANINE AMINOTRANSFERASE 29 U/L (12-78); ALBUMIN 2.3 G/DL (3.4-5.0); ALBUMIN/GLOBULIN RATIO 0.5 (1.0-2.7); ALKALINE PHOSPHATASE 127 U/L (46-116); ANION GAP 9 mmol/L (5-15); ASPARTATE AMINO TRANSFERASE 19 U/L (15-37); BILIRUBIN,TOTAL 0.4 MG/DL (0.2-1.0); BLOOD UREA NITROGEN 49 mg/dL (7-18); CALCIUM 8.3 MG/DL (8.5-10.1); CARBON DIOXIDE 23 MMOL/L (21-32); CHLORIDE 115 MMOL/L (98-107); CREATININE 1.9 MG/DL (0.55-1.30); POTASSIUM 4.4 MMOL/L (3.5-5.1); SODIUM 147 MMOL/L (136-145)
[2019-06-14] MEDS: NovoLOG Insulin Flexpen SUBQ SCH ×4 (07:08→21:15)
--- NOTE | 2019-06-14 08:08 | NUR ---
CASE MANAGEMENT:REVIEW 06/14/19 SI: ACUTE RENAL FAILURE. DEHYDRATION AC/CHR CHF. PNA 99.1 78 19 137/71 99% ON 2L/NC BUN+49 CR+1.9 IS: IVF@75/HR IV CEFEPIME Q24 IV REGLAN Q8HRS DIFLUCAN GT QD NEURONTIN GT BID KEPPRA GT Q12 HEPARIN SQ Q12 DUONEB HHN Q6HRS RTC : TELEMETRY STATUS DCP: FROM [facility]
--- NOTE | 2019-06-14 08:14 | NUR ---
HAND-OFF: Report given to FELY Lazaro, patient in stable condition, plan of care endorsed.
--- NOTE | 2019-06-14 08:16 | NUR ---
Received patient from FELY Youssef, in bed alert not oriented and not talking, responsive to stimuli, no distress,noted IV on right upper chest 22G, asymptomatic,intact, patent, gtube patent, bed low&locked, side rails upx3, will continue with the plan of care.
--- NOTE | 2019-06-14 08:31 | General Progress Note ---
Assessment/Plan Problem List: (1) HTN (hypertension) ICD Codes: I10 - Essential (primary) hypertension SNOMED: 01420829 (2) Pneumonia ICD Codes: J18.9 - Pneumonia, unspecified organism SNOMED: 815922450 (3) ATN (acute tubular necrosis) ICD Codes: N17.0 - Acute kidney failure with tubular necrosis SNOMED: 72162966 (4) CHF (congestive heart failure) ICD Codes: I50.9 - Heart failure, unspecified SNOMED: 70373542 Qualifiers: Qualified Codes: I50.9 - Heart failure, unspecified (5) Encephalopathy acute ICD Codes: G93.40 - Encephalopathy, unspecified SNOMED: 1668688 (6) UTI (urinary tract infection) ICD Codes: N39.0 - Urinary tract infection, site not specified SNOMED: 59402882 Qualifiers: Qualified Codes: N30.00 - Acute cystitis without hematuria Status: stable Assessment/Plan: ivf adjusted- d5w monitor volume status glycopyrrolate for sxecretion control resp rx suctioning gt feeds reglan gi eval follow up bowel regime iv abx per id follow up cultures dc planning tomorrow if continued improvement Subjective ROS Limited/Unobtainable: Yes Constitutional: Reports: malaise, weakness HEENT: Reports: no symptoms Cardiovascular: Reports: edema Respiratory: Reports: cough, shortness of breath, sputum Gastrointestinal/Abdominal: Reports: difficulty swallowing Genitourinary: Reports: no symptoms Neurologic/Psychiatric: Reports: pre-existing deficit, seizure Endocrine: Reports: no symptoms Hematologic/Lymphatic: Reports: no symptoms Allergies: Coded Allergies: No Known Allergies (Verified , 12/31/09) All Systems: reviewed and negative except above Subjective less congested. feeds on hold. Bun/cr trending down. kub- no obstruction. +stool tolerating feeds now. Na up. remains on iv and po abx Objective Last 24 Hour Vital Signs Date Time Temp Pulse Resp B/P (MAP) Pulse Ox O2 Delivery O2 Flow Rate FiO2 06/14/19 07:56 85 18 100 Nasal Cannula 2.0 28 76 16 99 06/14/19 04:00 99.1 78 19 137/71 (93) 96 06/14/19 04:00 81 06/14/19 00:52 81 18 100 Nasal Cannula 2.0 28 78 18 100 06/14/19 00:00 99.1 79 18 127/72 (90) 96 06/14/19 00:00 77 06/13/19 21:00 Nasal Cannula 2.0 06/13/19 20:00 98.8 72 18 121/63 (82) 96 06/13/19 20:00 78 06/13/19 19:18 84 18 100 Nasal Cannula 2.0 28 82 18 100 06/13/19 16:00 98.1 70 20 124/50 (74) 100 06/13/19 15:15 71 06/13/19 13:24 67 18 100 Nasal Cannula 2.0 28 64 18 100 06/13/19 12:00 98.1 75 22 144/71 (95) 100 06/13/19 11:45 74 06/13/19 09:02 75 06/13/19 09:00 Nasal Cannula 2.0 Intake and Output 06/13/19 06/14/19 19:00 07:00 Output Total 800 ml 1300 ml Balance -800 ml -1300 ml Output Urine Total 800 ml 1300 ml # Bowel Movements 1 Laboratory Tests 06/14/19 05:45: Sodium Level 147H, Potassium Level 4.4, Chloride Level 115H, Carbon Dioxide Level 23, Anion Gap 9, Blood Urea Nitrogen 49H, Creatinine 1.9H, Estimat Glomerular Filtration Rate , Glucose Level 231#H, Calcium Level 8.3L, Total Bilirubin 0.4, Aspartate Amino Transf (AST/SGOT) 19, Alanine Aminotransferase ( ALT/SGPT) 29, Alkaline Phosphatase 127H, Total Protein 7.0, Albumin 2.3L, Globulin 4.7, Albumin/Globulin Ratio 0.5L Height (Feet): 5 Height (Inches): 5.00 Weight (Pounds): 154 Objective General Appearance: WD/WN, alert Neck: supple Cardiovascular: normal rate, regular rhythm Respiratory/Chest: chest wall non-tender, no respiratory distress, no accessory muscle use, rhonchi - bilaterally Abdomen: normal bowel sounds, non tender, soft, no organomegaly Edema: no edema noted Arm (L), no edema noted Arm (R), no edema noted Leg (L), no edema noted Leg (R), no edema noted Pedal (L), no edema noted Pedal (R), no edema noted Generalized Jeffrey Crowder MD Jun 14, 2019 08:31
--- NOTE | 2019-06-14 08:44 | Pulmonology Progress Note ---
Assessment/Plan Assessment/Plan Impression: Congestive heart failure Possible pneumonia Urinary tract infection Encephalopathy, Dementia HO Seizures Anemia Acute renal failure Diabetes Hypertension Previous CVA Cerebral Palsy HO right femur fracture Debility Pleural effusions Plan IV antibiotics noted check decub views and consider tap cultures reviewed imaging reviewed monitor fluid status O2 as needed neb therapy maintain meds for change Monitor labs DVT prophylaxis cards follow up and recommendations impression, plan, and exam edited and reviewed in detail care discussed with RN Subjective ROS Limited/Unobtainable: Yes Allergies: Coded Allergies: No Known Allergies (Verified , 12/31/09) Subjective overall care reviewed and discussed Objective Last 24 Hour Vital Signs Date Time Temp Pulse Resp B/P (MAP) Pulse Ox O2 Delivery O2 Flow Rate FiO2 06/14/19 07:56 85 18 100 Nasal Cannula 2.0 28 76 16 99 06/14/19 04:00 99.1 78 19 137/71 (93) 96 06/14/19 04:00 81 06/14/19 00:52 81 18 100 Nasal Cannula 2.0 28 78 18 100 06/14/19 00:00 99.1 79 18 127/72 (90) 96 06/14/19 00:00 77 06/13/19 21:00 Nasal Cannula 2.0 06/13/19 20:00 98.8 72 18 121/63 (82) 96 06/13/19 20:00 78 06/13/19 19:18 84 18 100 Nasal Cannula 2.0 28 82 18 100 06/13/19 16:00 98.1 70 20 124/50 (74) 100 06/13/19 15:15 71 06/13/19 13:24 67 18 100 Nasal Cannula 2.0 28 64 18 100 06/13/19 12:00 98.1 75 22 144/71 (95) 100 06/13/19 11:45 74 06/13/19 09:02 75 06/13/19 09:00 Nasal Cannula 2.0 Intake and Output 06/13/19 06/14/19 19:00 07:00 Output Total 800 ml 1300 ml Balance -800 ml -1300 ml Output Urine Total 800 ml 1300 ml # Bowel Movements 1 Objective WDWN NAD on oxygen reduced breath sounds bilaterally with scattered rhonchi [id number] without MRG NABS nontender no HSM no CC mild edema confused nonfocal Laboratory Tests 06/14/19 05:45: Sodium Level 147H, Potassium Level 4.4, Chloride Level 115H, Carbon Dioxide Level 23, Anion Gap 9, Blood Urea Nitrogen 49H, Creatinine 1.9H, Estimat Glomerular Filtration Rate , Glucose Level 231#H, Calcium Level 8.3L, Total Bilirubin 0.4, Aspartate Amino Transf (AST/SGOT) 19, Alanine Aminotransferase ( ALT/SGPT) 29, Alkaline Phosphatase 127H, Total Protein 7.0, Albumin 2.3L, Globulin 4.7, Albumin/Globulin Ratio 0.5L Current Medications Medications (Trade) Dose Ordered Sig/Aaron Route PRN Reason Start Time Stop Time Status Last Admin Dose Admin Acetaminophen (Tylenol) 650 mg Q4H PRN GT Mild Pain/Temp > 100.5 06/10/19 00:45 07/10/19 00:44 Albuterol/ Ipratropium (Albuterol/ Ipratropium) 3 ml Q6HRT HHN 06/10/19 01:00 06/15/19 00:59 06/14/19 07:56 Cefepime HCl 1 gm/ Dextrose 55 ml @ 110 mls/hr Q24H IVPB 06/13/19 13:00 06/20/19 12:59 06/13/19 14:24 Dextrose 1,000 ml @ 50 mls/hr Q20H IV 06/14/19 08:30 07/14/19 08:29 Dextrose (Dextrose 50%) 25 ml Q30M PRN IV Hypoglycemia 06/10/19 00:45 07/10/19 00:44 Dextrose (Dextrose 50%) 50 ml Q30M PRN IV Hypoglycemia 06/10/19 00:45 07/10/19 00:44 Fluconazole (Diflucan) 100 mg DAILY GT 06/12/19 10:45 06/19/19 10:44 06/13/19 09:09 Gabapentin (Neurontin) 100 mg BID GT 06/11/19 09:00 07/11/19 08:59 06/13/19 19:07 Guaifenesin (Robitussin) 100 mg Q6H PRN GT For Cough 06/11/19 08:30 07/11/19 08:29 Heparin Sodium (Porcine) (Heparin 5000 units/ml) 5,000 units EVERY 12 HOURS SUBQ 06/10/19 21:00 07/10/19 20:59 06/13/19 21:03 Insulin Aspart (NovoLOG) BEFORE MEALS AND HS SUBQ 06/10/19 06:30 07/10/19 06:29 06/14/19 07:08 Levetiracetam (Keppra) 1,000 mg Q12HR GT 06/11/19 09:00 07/11/19 08:59 06/13/19 21:02 Levothyroxine Sodium (Synthroid) 50 mcg ACBREAKFAST GT 06/12/19 06:30 07/12/19 06:29 06/14/19 07:06 Metoclopramide HCl (Reglan) 10 mg Q8H IVP 06/13/19 12:00 07/13/19 11:59 06/14/19 04:49 Torey Douglass MD Jun 14, 2019 08:44
[2019-06-14] MEDS: Fluconazole 100mg tab GT SCH (09:09)
[2019-06-14] MEDS: Heparin 5000 units/ml inj SUBQ SCH ×2 (09:12→20:27)
--- NOTE | 2019-06-14 11:05 | Infectious Diseases Prog Note ---
Assessment/Plan Assessment/Plan antibiotics : cefepime, fluconazole A 1. pneumonia 2. fungal UTI 3. diabetes mellitus 4. hypertension 5. 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 continue cefepime 2. continue fluconazole 4 more days 3. will follow up cultures Subjective ROS Limited/Unobtainable: Yes Allergies: Coded Allergies: No Known Allergies (Verified , 12/31/09) Objective Vital Signs Last 24 Hour Vital Signs Date Time Temp Pulse Resp B/P (MAP) Pulse Ox O2 Delivery O2 Flow Rate FiO2 06/14/19 09:00 Nasal Cannula 2.0 06/14/19 08:00 77 06/14/19 08:00 99.3 77 20 134/68 (90) 98 06/14/19 07:56 85 18 100 Nasal Cannula 2.0 28 76 16 99 06/14/19 04:00 99.1 78 19 137/71 (93) 96 06/14/19 04:00 81 06/14/19 00:52 81 18 100 Nasal Cannula 2.0 28 78 18 100 06/14/19 00:00 99.1 79 18 127/72 (90) 96 06/14/19 00:00 77 06/13/19 21:00 Nasal Cannula 2.0 06/13/19 20:00 98.8 72 18 121/63 (82) 96 06/13/19 20:00 78 06/13/19 19:18 84 18 100 Nasal Cannula 2.0 28 82 18 100 06/13/19 16:00 98.1 70 20 124/50 (74) 100 06/13/19 15:15 71 06/13/19 13:24 67 18 100 Nasal Cannula 2.0 28 64 18 100 06/13/19 12:00 98.1 75 22 144/71 (95) 100 06/13/19 11:45 74 Height (Feet): 5 Height (Inches): 5.00 Weight (Pounds): 154 Respiratory/Chest: lungs clear Cardiovascular: normal rate, regular rhythm, no gallop/murmur Abdomen: soft, non tender, other - GT Extremities: other - + edema, right arm PICC Microbiology Date/Time Source Procedure Growth Status 06/13/19 12:05 Sputum Gram Stain - Final Resulted 06/13/19 12:05 Sputum Sputum Culture Pending Resulted Laboratory Tests Test 06/14/19 05:45 Sodium Level 147 MMOL/L (136-145) H Potassium Level 4.4 MMOL/L (3.5-5.1) Chloride Level 115 MMOL/L (98-107) H Carbon Dioxide Level 23 MMOL/L (21-32) Anion Gap 9 mmol/L (5-15) Blood Urea Nitrogen 49 mg/dL (7-18) H Creatinine 1.9 MG/DL (0.55-1.30) H Estimat Glomerular Filtration Rate mL/min (>60) Glucose Level 231 MG/DL (74-106) #H Calcium Level 8.3 MG/DL (8.5-10.1) L Total Bilirubin 0.4 MG/DL (0.2-1.0) Aspartate Amino Transf (AST/SGOT) 19 U/L (15-37) Alanine Aminotransferase (ALT/SGPT) 29 U/L (12-78) Alkaline Phosphatase 127 U/L (46-116) H Total Protein 7.0 G/DL (6.4-8.2) Albumin 2.3 G/DL (3.4-5.0) L Globulin 4.7 g/dL Albumin/Globulin Ratio 0.5 (1.0-2.7) L Current Medications Medications (Trade) Dose Ordered Sig/Aaron Route PRN Reason Start Time Stop Time Status Last Admin Dose Admin Acetaminophen (Tylenol) 650 mg Q4H PRN GT Mild Pain/Temp > 100.5 06/10/19 00:45 07/10/19 00:44 Albuterol/ Ipratropium (Albuterol/ Ipratropium) 3 ml Q6HRT HHN 06/10/19 01:00 06/15/19 00:59 06/14/19 07:56 Cefepime HCl 1 gm/ Dextrose 55 ml @ 110 mls/hr Q24H IVPB 06/13/19 13:00 06/20/19 12:59 06/13/19 14:24 Dextrose 1,000 ml @ 50 mls/hr Q20H IV 06/14/19 08:30 07/14/19 08:29 06/14/19 09:10 Dextrose (Dextrose 50%) 25 ml Q30M PRN IV Hypoglycemia 06/10/19 00:45 07/10/19 00:44 Dextrose (Dextrose 50%) 50 ml Q30M PRN IV Hypoglycemia 06/10/19 00:45 07/10/19 00:44 Fluconazole (Diflucan) 100 mg DAILY GT 06/12/19 10:45 06/19/19 10:44 06/14/19 09:09 Gabapentin (Neurontin) 100 mg BID GT 06/11/19 09:00 07/11/19 08:59 06/14/19 09:09 Guaifenesin (Robitussin) 100 mg Q6H PRN GT For Cough 06/11/19 08:30 07/11/19 08:29 Heparin Sodium (Porcine) (Heparin 5000 units/ml) 5,000 units EVERY 12 HOURS SUBQ 06/10/19 21:00 07/10/19 20:59 06/14/19 09:12 Insulin Aspart (NovoLOG) BEFORE MEALS AND HS SUBQ 06/10/19 06:30 07/10/19 06:29 06/14/19 07:08 Levetiracetam (Keppra) 1,000 mg Q12HR GT 06/11/19 09:00 07/11/19 08:59 06/14/19 09:09 Levothyroxine Sodium (Synthroid) 50 mcg ACBREAKFAST GT 06/12/19 06:30 07/12/19 06:29 06/14/19 07:06 Metoclopramide HCl (Reglan) 10 mg Q8H IVP 06/13/19 12:00 07/13/19 11:59 06/14/19 04:49 Tyrel Prieto MD Jun 14, 2019 11:05
--- NOTE | 2019-06-14 11:19 | NUR ---
RADIOLOGY DEPT. CHEST X-RAY DONE.-P.DYE
--- NOTE | 2019-06-14 12:11 | Diagnostic Imaging Report ---
Indication: Shortness of breath Technique: 3 views of the chest (AP, right lateral decubitus, left lateral decubitus) Comparison: 06/12/2019 Findings: Frontal chest radiograph demonstrates persistent bilateral diffuse interstitial and airspace disease which appears unchanged from the prior exam. The heart remains enlarged. The left hemidiaphragm remains obscured. The right costophrenic angle is slightly blunted. The right lateral decubitus view demonstrates layering of a small amount of free pleural fluid. There is probably but not definitively layering of pleural fluid on the left lateral decubitus view. Impression: Bilateral diffuse interstitial and airspace infiltrates versus edema, unchanged over 2 days Evidence of a small amount of free pleural fluid on the right. Equivocal evidence a small amount of free pleural fluid on the left.
[2019-06-14] MEDS: Cefepime HCl 1 GM in D5W 55 ML IVPB SCH (14:00)
--- NOTE | 2019-06-14 15:01 | NUR ---
NURSE NOTES:WOUND CARE FOLLOW-UP NOTES: Non-blanchable erythema without induration sacrum over keloid scar. Non-blanchable erythema with fluctuance L heel (L)5.5cm x (W)6.5cm. R heel boggy with non-blanchable erythema(L)4cm x (W)5.5cm. Thick dry callus noted to dorsal L st metatarsal. No new skin concerns noted. Tx.Plan: Apply Moisture Barrier Paste to buttocks. Cover with Optifoam drsg. Change every 3 days and prn. Apply Cavilon Skin Barrier to Both heels. Cover each heel with Optifoam drsg. Change every 7 days and prn. Reposition at least every 2hours or as tolerated. Off-load heels with pillows.
--- NOTE | 2019-06-14 15:42 | NUR ---
*-* INSURANCE *--* ALL CLINICALS AND REVIEWS HAVE BEEN FAXED TO: [facility] FAX ALL CLINICALS TO [phone]
--- NOTE | 2019-06-14 15:54 | General Progress Note ---
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 Objective Last 24 Hour Vital Signs Date Time Temp Pulse Resp B/P (MAP) Pulse Ox O2 Delivery O2 Flow Rate FiO2 06/14/19 13:22 69 20 100 Nasal Cannula 2.0 28 68 18 97 06/14/19 12:00 77 06/14/19 12:00 98.3 77 22 136/70 (92) 100 06/14/19 09:00 Nasal Cannula 2.0 06/14/19 08:00 77 06/14/19 08:00 99.3 77 20 134/68 (90) 98 06/14/19 07:56 85 18 100 Nasal Cannula 2.0 28 76 16 99 06/14/19 04:00 99.1 78 19 137/71 (93) 96 06/14/19 04:00 81 06/14/19 00:52 81 18 100 Nasal Cannula 2.0 28 78 18 100 06/14/19 00:00 99.1 79 18 127/72 (90) 96 06/14/19 00:00 77 06/13/19 21:00 Nasal Cannula 2.0 06/13/19 20:00 98.8 72 18 121/63 (82) 96 06/13/19 20:00 78 06/13/19 19:18 84 18 100 Nasal Cannula 2.0 28 82 18 100 06/13/19 16:00 98.1 70 20 124/50 (74) 100 Intake and Output 06/13/19 06/14/19 19:00 07:00 Output Total 800 ml 1300 ml Balance -800 ml -1300 ml Output Urine Total 800 ml 1300 ml # Bowel Movements 1 Laboratory Tests 06/14/19 05:45: Sodium Level 147H, Potassium Level 4.4, Chloride Level 115H, Carbon Dioxide Level 23, Anion Gap 9, Blood Urea Nitrogen 49H, Creatinine 1.9H, Estimat Glomerular Filtration Rate , Glucose Level 231#H, Calcium Level 8.3L, Total Bilirubin 0.4, Aspartate Amino Transf (AST/SGOT) 19, Alanine Aminotransferase ( ALT/SGPT) 29, Alkaline Phosphatase 127H, Total Protein 7.0, Albumin 2.3L, Globulin 4.7, Albumin/Globulin Ratio 0.5L Height (Feet): 5 Height (Inches): 5.00 Weight (Pounds): 154 Objective Elderly AA woman NCAT supple CTA RRR abd soft, (+) GT no edema OBS Darrell Griffith MD Jun 14, 2019 15:54
--- NOTE | 2019-06-14 17:33 | NUR ---
NURSE NOTES: Transferred patient from [facility] Rm 210-[address] [facility] Rm 405-2 per MD order. Report given to Agnes GEIGER. IV is intact and patent with fluids running and patient tolerating well. Patient is on G-Tube, Glucerna 1.2 running at 45cc/hr and patient tolerating well, no residual at this time. Patient has F/C for retention. Patient has no belongings. All meds transferred with patient. Patient is in stable condition.
[2019-06-14] MEDS ORDERED: guaiFENesin 100mg/5ml Liq ud GT PRN (18:00)
[2019-06-14] MEDS ORDERED: Acetaminophen 650mg/20.3ml GT PRN (18:00)
[2019-06-14] MEDS ORDERED: Albuterol/Ipratropium 3ml neb HHN SCH (19:00)
--- NOTE | 2019-06-14 19:08 | NUR ---
HAND-OFF: Report given to Vesna GEIGER.
--- NOTE | 2019-06-14 19:45 | NUR ---
NURSE NOTES: Received patient in bed, total care,on oxygen at 2 liters/min, Barron catheter in place, secured, draining well. PICC line site clean dry and intact, call light is within reach, bed is in low position, locked, alarm is on. Will continue to monitor for comfort and safety.
[2019-06-14] MEDS: Gabapentin 300 MG/6 ML Soln GT SCH (20:29)
[2019-06-14] MEDS ORDERED: HydrALAZINE 50mg tab GT SCH (22:00)
[2019-06-14] MEDS: HydrALAZINE 50mg tab GT SCH (22:30)
[2019-06-15] VITALS: BP 143/80
--- NOTE | 2019-06-15 00:45 | Progress Note ---
DATE: 06/14/2019 CARDIOLOGY PROGRESS NOTE SUBJECTIVE: The patient remains with episodes of congestion, but improving overall. Feedings are on hold. He remains on IV fluids. OBJECTIVE: VITAL SIGNS: Blood pressure 137/71, pulse 78, respirations 19, and temperature 99.1. LUNGS: Scattered rhonchi. HEART: Regular rhythm and rate. Normal S1, S2. ABDOMEN: Soft. EXTREMITIES: No edema. LABORATORY DATA: Sodium 147, potassium 4.4, bicarbonate 22, BUN 49, creatinine 1.9. IMPRESSION: 1. Healthcare-acquired pneumonia. 2. Dysphagia. 3. Acute on chronic renal failure. 4. Dehydration, hyponatremia. 5. Hyperchloremia. 6. Moderate to severe protein-calorie malnutrition. 7. Hypertensive heart disease. PLAN: 1. Continue hypotonic IV fluids. 2. Holding diuretics. 3. Titrating antihypertensives. 4. Nutritional support by feeding tube when able. 5. Aspiration precautions. 6. Promotility agents. Kavon Peña M.D. DR: JANEY JOB#: [id number] CC:
[2019-06-15] MEDS: Albuterol/Ipratropium 3ml neb HHN SCH ×4 (01:45→19:00)
[2019-06-15 04:00] VITALS: BP 140/78
[2019-06-15] MEDS: Metoclopramide 10mg/2ml Inj IVP SCH ×3 (04:13→20:58)
[2019-06-15] MEDS: HydrALAZINE 50mg tab GT SCH ×3 (05:44→21:43)
[2019-06-15] MEDS: NovoLOG Insulin Flexpen SUBQ SCH ×4 (05:45→22:25)
[2019-06-15 06:57] LABS: ALANINE AMINOTRANSFERASE 27 U/L (12-78); ALBUMIN 2.4 G/DL (3.4-5.0); ALBUMIN/GLOBULIN RATIO 0.5 (1.0-2.7); ALKALINE PHOSPHATASE 124 U/L (46-116); ANION GAP 10 mmol/L (5-15); BILIRUBIN,TOTAL 0.5 MG/DL (0.2-1.0); BLOOD UREA NITROGEN 40 mg/dL (7-18); CALCIUM 8.3 MG/DL (8.5-10.1); CARBON DIOXIDE 23 MMOL/L (21-32); CHLORIDE 111 MMOL/L (98-107); CREATININE 1.7 MG/DL (0.55-1.30); POTASSIUM 4.6 MMOL/L (3.5-5.1); SODIUM 144 MMOL/L (136-145)
--- NOTE | 2019-06-15 07:26 | NUR ---
HAND-OFF: Report given to Rodolfo GEIGER.
--- NOTE | 2019-06-15 07:30 | NUR ---
NURSE NOTES: Received patient on bed. Midline dressing changed by rn night RN. GT clamped for rn night medication. Unclamped and flushed for patency. FC intact and patent. Suctioning done by RT and collected sputum, RN sent it to lab. Head of bed elevated. Bed locked in lowest position. Padded sided rails up. Call light within reach. Will continue plan of care.
[2019-06-15 07:49] LABS: ASPARTATE AMINO TRANSFERASE 17 U/L (15-37)
[2019-06-15 08:00] VITALS: BP 109/65
[2019-06-15] MEDS: Gabapentin 300 MG/6 ML Soln GT SCH ×2 (08:49→21:42)
[2019-06-15] MEDS: Fluconazole 100mg tab GT SCH (08:49)
[2019-06-15] MEDS: Heparin 5000 units/ml inj SUBQ SCH ×2 (08:53→22:24)
--- NOTE | 2019-06-15 10:33 | Infectious Diseases Prog Note ---
Assessment/Plan Assessment/Plan antibiotics : cefepime, fluconazole A 1. gram negative pneumonia 2. fungal UTI 3. diabetes mellitus 4. hypertension 5. 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 continue cefepime 2. continue fluconazole 3 more days 3. will follow up cultures Subjective ROS Limited/Unobtainable: Yes Allergies: Coded Allergies: No Known Allergies (Verified , 12/31/09) Objective Vital Signs Last 24 Hour Vital Signs Date Time Temp Pulse Resp B/P (MAP) Pulse Ox O2 Delivery O2 Flow Rate FiO2 06/15/19 08:00 100.0 87 28 109/65 (80) 06/15/19 07:08 88 20 99 Nasal Cannula 2.0 28 89 20 97 06/15/19 05:44 150/77 06/15/19 04:00 99.0 79 24 140/78 (98) 97 06/15/19 00:00 98.2 89 24 143/80 (101) 98 06/14/19 22:30 138/78 06/14/19 21:23 Nasal Cannula 2.0 06/14/19 20:00 98.2 80 24 140/79 (99) 99 06/14/19 19:23 69 19 100 Nasal Cannula 2.0 28 67 18 96 06/14/19 17:45 98.1 80 20 133/73 (93) 98 06/14/19 16:30 82 154/84 (107) 06/14/19 16:00 98.5 88 20 165/86 (112) 100 06/14/19 13:22 69 20 100 Nasal Cannula 2.0 28 68 18 97 06/14/19 12:00 77 06/14/19 12:00 98.3 77 22 136/70 (92) 100 Height (Feet): 5 Height (Inches): 5.00 Weight (Pounds): 154 Respiratory/Chest: lungs clear Cardiovascular: normal rate, regular rhythm, no gallop/murmur Abdomen: soft, non tender, other - GT Extremities: no edema Microbiology Date/Time Source Procedure Growth Status 06/13/19 12:05 Sputum Gram Stain - Final Resulted 06/13/19 12:05 Sputum Culture - Preliminary Gram Negative Bacillus 1 Usual Respiratory Smita Resulted Laboratory Tests Test 06/15/19 04:34 Sodium Level 144 MMOL/L (136-145) Potassium Level 4.6 MMOL/L (3.5-5.1) Chloride Level 111 MMOL/L (98-107) H Carbon Dioxide Level 23 MMOL/L (21-32) Anion Gap 10 mmol/L (5-15) Blood Urea Nitrogen 40 mg/dL (7-18) H Creatinine 1.7 MG/DL (0.55-1.30) H Estimat Glomerular Filtration Rate mL/min (>60) Glucose Level 219 MG/DL (74-106) H Calcium Level 8.3 MG/DL (8.5-10.1) L Total Bilirubin 0.5 MG/DL (0.2-1.0) Aspartate Amino Transf (AST/SGOT) 17 U/L (15-37) Alanine Aminotransferase (ALT/SGPT) 27 U/L (12-78) Alkaline Phosphatase 124 U/L (46-116) H Total Protein 7.2 G/DL (6.4-8.2) Albumin 2.4 G/DL (3.4-5.0) L Globulin 4.8 g/dL Albumin/Globulin Ratio 0.5 (1.0-2.7) L Current Medications Medications (Trade) Dose Ordered Sig/Aaron Route PRN Reason Start Time Stop Time Status Last Admin Dose Admin Acetaminophen (Tylenol) 650 mg Q4H PRN GT Mild Pain/Temp > 100.5 06/14/19 18:00 07/10/19 17:59 Albuterol/ Ipratropium (Albuterol/ Ipratropium) 3 ml Q6HRT HHN 06/15/19 01:45 06/20/19 01:44 06/15/19 07:22 Cefepime HCl 1 gm/ Dextrose 55 ml @ 110 mls/hr Q24H IVPB 06/15/19 13:00 06/20/19 12:59 Dextrose 1,000 ml @ 50 mls/hr Q20H IV 06/14/19 17:45 07/14/19 08:29 06/15/19 09:57 Dextrose (Dextrose 50%) 25 ml Q30M PRN IV Hypoglycemia 06/14/19 17:45 07/10/19 00:44 Dextrose (Dextrose 50%) 50 ml Q30M PRN IV Hypoglycemia 06/14/19 17:45 07/10/19 00:44 Fluconazole (Diflucan) 100 mg DAILY GT 06/15/19 09:00 06/19/19 10:44 06/15/19 08:49 Gabapentin (Neurontin) 100 mg Q12HR GT 06/14/19 21:00 07/14/19 20:59 06/15/19 08:49 Guaifenesin (Robitussin) 100 mg Q6H PRN GT For Cough 06/14/19 18:00 07/11/19 17:59 Heparin Sodium (Porcine) (Heparin 5000 units/ml) 5,000 units EVERY 12 HOURS SUBQ 06/14/19 21:00 07/10/19 20:59 06/15/19 08:53 Hydralazine HCl (Apresoline) 50 mg Q8HR GT 06/14/19 22:00 07/14/19 21:59 06/15/19 05:44 Insulin Aspart (NovoLOG) BEFORE MEALS AND HS SUBQ 06/14/19 21:00 07/10/19 06:29 06/15/19 05:45 Levetiracetam (Keppra) 1,000 mg Q12HR GT 06/14/19 21:00 07/11/19 08:59 06/15/19 08:50 Levothyroxine Sodium (Synthroid) 50 mcg ACBREAKFAST GT 06/15/19 06:30 07/12/19 06:29 06/15/19 05:44 Metoclopramide HCl (Reglan) 10 mg Q8H IVP 06/14/19 20:00 07/13/19 11:59 06/15/19 04:13 Tyrel Prieto MD Jun 15, 2019 10:32
[2019-06-15 12:00] VITALS: BP 115/63
--- NOTE | 2019-06-15 13:08 | NUR ---
CASE MANAGEMENT:REVIEW 06/15/19 SI: ACUTE RENAL FAILURE. DEHYDRATION AC/CHR CHF. PNA 100.0 87 28 109/65 97% ON 2L/NC BUN+40 CR+1.7 GLUCOSE+219 IS: IVF@75/HR IV CEFEPIME Q24 IV REGLAN Q8HRS DIFLUCAN GT QD NEURONTIN GT BID KEPPRA GT Q12 HEPARIN SQ Q12 DUONEB HHN Q6HRS RTC HYDRALAZINE GT Q8HRS : TELEMETRY STATUS DCP: FROM [facility]
--- NOTE | 2019-06-15 13:10 | NUR ---
DISCHARGE PLANNING FAXED CLINICALS TO [facility] IN ANTICIPATION OF POSSIBLE DC TOMORROW OR THURSDAY
[2019-06-15] MEDS: Cefepime HCl 1 GM in D5W 55 ML IVPB SCH (13:20)
--- NOTE | 2019-06-15 15:00 | NUR ---
NURSE NOTES: BP 90/50, placed in trendelenburg position. Will recheck BP.
[2019-06-15 16:00] VITALS: BP 108/61
--- NOTE | 2019-06-15 16:45 | NUR ---
NURSE NOTES: BP at 106/55, hold Lasix as per Dr. Crowder.
--- NOTE | 2019-06-15 16:46 | General Progress Note ---
Assessment/Plan Problem List: (1) HTN (hypertension) ICD Codes: I10 - Essential (primary) hypertension SNOMED: 61597607 (2) Pneumonia ICD Codes: J18.9 - Pneumonia, unspecified organism SNOMED: 285719196 (3) ATN (acute tubular necrosis) ICD Codes: N17.0 - Acute kidney failure with tubular necrosis SNOMED: 40151054 (4) CHF (congestive heart failure) ICD Codes: I50.9 - Heart failure, unspecified SNOMED: 36434337 Qualifiers: Qualified Codes: I50.9 - Heart failure, unspecified (5) Encephalopathy acute ICD Codes: G93.40 - Encephalopathy, unspecified SNOMED: 4143666 (6) UTI (urinary tract infection) ICD Codes: N39.0 - Urinary tract infection, site not specified SNOMED: 47408396 Qualifiers: Qualified Codes: N30.00 - Acute cystitis without hematuria Status: stable Assessment/Plan: ivf dcd lasix x 1 monitor volume status glycopyrrolate for sxecretion control resp rx suctioning gt feeds reglan gi eval follow up bowel regime iv abx per id follow up cultures dc planning tomorrow if continued improvement Subjective ROS Limited/Unobtainable: No Constitutional: Reports: malaise, weakness HEENT: Reports: no symptoms Cardiovascular: Reports: no symptoms Respiratory: Reports: cough, shortness of breath, sputum Gastrointestinal/Abdominal: Reports: difficulty swallowing Genitourinary: Reports: no symptoms Neurologic/Psychiatric: Reports: pre-existing deficit, seizure Endocrine: Reports: no symptoms Hematologic/Lymphatic: Reports: anemia Allergies: Coded Allergies: No Known Allergies (Verified , 12/31/09) All Systems: reviewed and negative except above Subjective seems more congested today. tolerating feeds. no residuals. remains poorly responsive. currently on ivf. cxr with chf Objective Last 24 Hour Vital Signs Date Time Temp Pulse Resp B/P (MAP) Pulse Ox O2 Delivery O2 Flow Rate FiO2 06/15/19 14:07 75 20 99 Nasal Cannula 2.0 28 78 20 98 06/15/19 14:00 90/50 06/15/19 12:00 98.7 73 20 115/63 (80) 100 06/15/19 09:00 Nasal Cannula 2.0 06/15/19 08:00 100.0 87 28 109/65 (80) 96 06/15/19 07:08 88 20 99 Nasal Cannula 2.0 28 89 20 97 06/15/19 05:44 150/77 06/15/19 04:00 99.0 79 24 140/78 (98) 97 06/15/19 00:00 98.2 89 24 143/80 (101) 98 06/14/19 22:30 138/78 06/14/19 21:23 Nasal Cannula 2.0 06/14/19 20:00 98.2 80 24 140/79 (99) 99 06/14/19 19:23 69 19 100 Nasal Cannula 2.0 28 67 18 96 06/14/19 17:45 98.1 80 20 133/73 (93) 98 Intake and Output 06/14/19 06/15/19 18:59 06:59 Intake Total 840 ml Output Total 900 ml Balance -900 ml 840 ml Free Water 300 ml Tube Feeding 540 ml Output Urine Total 900 ml # Bowel Movements 1 Laboratory Tests 06/15/19 04:34: Sodium Level 144, Potassium Level 4.6, Chloride Level 111H, Carbon Dioxide Level 23, Anion Gap 10, Blood Urea Nitrogen 40H, Creatinine 1.7H, Estimat Glomerular Filtration Rate , Glucose Level 219H, Calcium Level 8.3L, Total Bilirubin 0.5, Aspartate Amino Transf (AST/SGOT) 17, Alanine Aminotransferase ( ALT/SGPT) 27, Alkaline Phosphatase 124H, Total Protein 7.2, Albumin 2.4L, Globulin 4.8, Albumin/Globulin Ratio 0.5L Height (Feet): 5 Height (Inches): 5.00 Weight (Pounds): 154 Objective General Appearance: WD/WN, alert Neck: supple Cardiovascular: normal rate, regular rhythm Respiratory/Chest: chest wall non-tender, no respiratory distress, no accessory muscle use, rhonchi - bilaterally Abdomen: normal bowel sounds, non tender, soft, no organomegaly Edema: no edema noted Arm (L), no edema noted Arm (R), no edema noted Leg (L), no edema noted Leg (R), no edema noted Pedal (L), no edema noted Pedal (R), no edema noted Generalized Jeffrey Crowder MD Jun 15, 2019 16:46
--- NOTE | 2019-06-15 19:00 | Pulmonology Progress Note ---
Assessment/Plan Assessment/Plan Pulmonary Progress Note HPI: Patient is a 78 year-old woman with history of Diabetes, Hypertension, previous CVA, Dementia seizures who presents with shortness of breath. Noted to have evidence of UTI, required diuresis after receiving IV fluids in the ED. No report of nausea, vomiting, fever or chills. Patient is nonverbal. Allergies: No Known Allergies Past Medical History: DM, HTN, CVA/TIA, Dementia, Seizures, CP, right femure fracture, weakness All Other Systems: limited Physical Exam Vitals signs noted General Appearance: alert, mild distress, chronically ill appearing Head: normocephalic, atraumatic Eyes: bilateral eye PERRL, bilateral eye EOMI ENT: hearing grossly normal, normal pharynx Neck: no LN Respiratory: chest non-tender, respiratory distress, accessory muscle use, basal rales, occasional rhonchi Cardiovascular: regular rate, rhythm, HS1/HS2 normal, no murmur Gastrointestinal: normal bowel sounds, non tender, no mass, no organomegaly, no bruit, non-distended Musculoskeletal: contracted, no edema Skin: no rash Impression: Congestive heart failure Possible pneumonia Urinary tract infection Encephalopathy, Dementia Previous Seizures Anemia Acute renal failure Hyponatremia Diabetes Hypertension Previous CVA Cerebral Palsy Previous rght femur fracture Weakness Plan IV antibiotics Diurese PRN O2 PRN HHN 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 EKG: Rate: normal, NSR Chest X-Ray: no consolidation, no pneumothorax, other - Bilateral pleural effusion. Vasc congestion s/o CHF Subjective ROS Limited/Unobtainable: No Allergies: Coded Allergies: No Known Allergies (Verified , 12/31/09) Objective Last 24 Hour Vital Signs Date Time Temp Pulse Resp B/P (MAP) Pulse Ox O2 Delivery O2 Flow Rate FiO2 06/15/19 16:00 98.8 71 18 108/61 (77) 98 06/15/19 14:07 75 20 99 Nasal Cannula 2.0 28 78 20 98 06/15/19 14:00 90/50 06/15/19 12:00 98.7 73 20 115/63 (80) 100 06/15/19 09:00 Nasal Cannula 2.0 06/15/19 08:00 100.0 87 28 109/65 (80) 96 06/15/19 07:08 88 20 99 Nasal Cannula 2.0 28 89 20 97 06/15/19 05:44 150/77 06/15/19 04:00 99.0 79 24 140/78 (98) 97 06/15/19 00:00 98.2 89 24 143/80 (101) 98 06/14/19 22:30 138/78 06/14/19 21:23 Nasal Cannula 2.0 06/14/19 20:00 98.2 80 24 140/79 (99) 99 06/14/19 19:23 69 19 100 Nasal Cannula 2.0 28 67 18 96 Intake and Output 06/14/19 06/15/19 19:00 07:00 Intake Total 45 ml 990 ml Output Total 900 ml Balance -855 ml 990 ml Free Water 450 ml Tube Feeding 45 ml 540 ml Output Urine Total 900 ml # Bowel Movements 1 Microbiology Date/Time Source Procedure Growth Status 06/13/19 12:05 Sputum Gram Stain - Final Resulted 06/13/19 12:05 Sputum Culture - Preliminary Gram Negative Bacillus 1 Usual Respiratory Smita Resulted Laboratory Tests 06/15/19 04:34: Sodium Level 144, Potassium Level 4.6, Chloride Level 111H, Carbon Dioxide Level 23, Anion Gap 10, Blood Urea Nitrogen 40H, Creatinine 1.7H, Estimat Glomerular Filtration Rate , Glucose Level 219H, Calcium Level 8.3L, Total Bilirubin 0.5, Aspartate Amino Transf (AST/SGOT) 17, Alanine Aminotransferase ( ALT/SGPT) 27, Alkaline Phosphatase 124H, Total Protein 7.2, Albumin 2.4L, Globulin 4.8, Albumin/Globulin Ratio 0.5L Current Medications Medications (Trade) Dose Ordered Sig/Aaron Route PRN Reason Start Time Stop Time Status Last Admin Dose Admin Acetaminophen (Tylenol) 650 mg Q4H PRN GT Mild Pain/Temp > 100.5 06/14/19 18:00 07/10/19 17:59 Albuterol/ Ipratropium (Albuterol/ Ipratropium) 3 ml Q6HRT HHN 06/15/19 01:45 06/20/19 01:44 06/15/19 14:08 Cefepime HCl 1 gm/ Dextrose 55 ml @ 110 mls/hr Q24H IVPB 06/15/19 13:00 06/20/19 12:59 06/15/19 13:20 Dextrose (Dextrose 50%) 25 ml Q30M PRN IV Hypoglycemia 06/14/19 17:45 07/10/19 00:44 Dextrose (Dextrose 50%) 50 ml Q30M PRN IV Hypoglycemia 06/14/19 17:45 07/10/19 00:44 Fluconazole (Diflucan) 100 mg DAILY GT 06/15/19 09:00 06/19/19 10:44 06/15/19 08:49 Gabapentin (Neurontin) 100 mg Q12HR GT 06/14/19 21:00 07/14/19 20:59 06/15/19 08:49 Guaifenesin (Robitussin) 100 mg Q6H PRN GT For Cough 06/14/19 18:00 07/11/19 17:59 Heparin Sodium (Porcine) (Heparin 5000 units/ml) 5,000 units EVERY 12 HOURS SUBQ 06/14/19 21:00 07/10/19 20:59 06/15/19 08:53 Hydralazine HCl (Apresoline) 50 mg Q8HR GT 06/14/19 22:00 07/14/19 21:59 06/15/19 05:44 Insulin Aspart (NovoLOG) BEFORE MEALS AND HS SUBQ 06/14/19 21:00 07/10/19 06:29 06/15/19 17:02 Levetiracetam (Keppra) 1,000 mg Q12HR GT 06/14/19 21:00 07/11/19 08:59 06/15/19 08:50 Levothyroxine Sodium (Synthroid) 50 mcg ACBREAKFAST GT 06/15/19 06:30 07/12/19 06:29 06/15/19 05:44 Metoclopramide HCl (Reglan) 10 mg Q8H IVP 06/14/19 20:00 07/13/19 11:59 06/15/19 12:28 Kavon Seals MD Jun 15, 2019 19:00
--- NOTE | 2019-06-15 19:17 | NUR ---
HAND-OFF: Report given to Maria G.
--- NOTE | 2019-06-15 19:30 | NUR ---
NURSE NOTES: RECEIVED PT FROM FELY WILDER AND FELY SCHWARTZ. PT IS AAOX0, NONVERBAL, ON NC 2L, NO RESPIRATORY DISTRESS NOTED. G-TUBE IS INTACT AND PATENT, RUNNING GLUCERNA 1.2 AT 45CC/HR. AN CATH IS INTACT AND DRAINING WELL. MIDLINE CATHETER NOTE ON RIGHT UPPER ARM, INTACT AND PATENT. OPTIFOAMS ON BILATERAL HEELS AND SACRAL ARE INTACT. BED IS LOCKED AND LOW, BED ALARMS ACTIVE, SIDE RAILS UP X2 AND CALL LIGHT IS WITHIN REACH. WILL CONTINUE TO MONITOR.
[2019-06-15 20:00] VITALS: BP 135/67
--- NOTE | 2019-06-15 22:24 | General Progress Note ---
Assessment/Plan Status: stable Assessment/Plan: Assessment - TF intolerance, likely due to underlying DM gastroparesis - hyponatremia, resolved - OBS - dysphagia Recommendations - short term Reglan trial - 2 weeks - Elevate HOB - Continue TF on Reglan - change to PO, for 10 more days - d/c planning Subjective Allergies: Coded Allergies: No Known Allergies (Verified , 12/31/09) Subjective Above noted d/w research staff member tolerating TF Objective Last 24 Hour Vital Signs Date Time Temp Pulse Resp B/P (MAP) Pulse Ox O2 Delivery O2 Flow Rate FiO2 06/15/19 21:43 135/67 06/15/19 20:00 98.1 79 20 135/67 (89) 98 06/15/19 16:00 98.8 71 18 108/61 (77) 98 06/15/19 14:07 75 20 99 Nasal Cannula 2.0 28 78 20 98 06/15/19 14:00 90/50 06/15/19 12:00 98.7 73 20 115/63 (80) 100 06/15/19 09:00 Nasal Cannula 2.0 06/15/19 08:00 100.0 87 28 109/65 (80) 96 06/15/19 07:08 88 20 99 Nasal Cannula 2.0 28 89 20 97 06/15/19 05:44 150/77 06/15/19 04:00 99.0 79 24 140/78 (98) 97 06/15/19 00:00 98.2 89 24 143/80 (101) 98 06/14/19 22:30 138/78 Intake and Output 06/14/19 06/15/19 19:00 07:00 Intake Total 45 ml 990 ml Output Total 900 ml Balance -855 ml 990 ml Free Water 450 ml Tube Feeding 45 ml 540 ml Output Urine Total 900 ml # Bowel Movements 1 Laboratory Tests 06/15/19 04:34: Sodium Level 144, Potassium Level 4.6, Chloride Level 111H, Carbon Dioxide Level 23, Anion Gap 10, Blood Urea Nitrogen 40H, Creatinine 1.7H, Estimat Glomerular Filtration Rate , Glucose Level 219H, Calcium Level 8.3L, Total Bilirubin 0.5, Aspartate Amino Transf (AST/SGOT) 17, Alanine Aminotransferase ( ALT/SGPT) 27, Alkaline Phosphatase 124H, Total Protein 7.2, Albumin 2.4L, Globulin 4.8, Albumin/Globulin Ratio 0.5L Height (Feet): 5 Height (Inches): 5.00 Weight (Pounds): 154 Objective Elderly AA woman NCAT supple CTA RRR abd soft, (+) GT no edema OBS Darrell Griffith MD Jun 15, 2019 22:24
[2019-06-16] VITALS: BP 112/63
[2019-06-16] MEDS: Albuterol/Ipratropium 3ml neb HHN SCH ×4 (01:18→19:32)
--- NOTE | 2019-06-16 03:30 | Progress Note ---
DATE: 06/15/2019 CARDIOLOGY PROGRESS NOTE SUBJECTIVE: Somewhat more congested at times, but tolerating tube feedings. She remains on IV fluids. OBJECTIVE: VITAL SIGNS: Blood pressure 108/61, pulse 71, respirations 18, afebrile. LUNGS: Coarse breath sounds. Few rales. HEART: Regular rhythm and rate. Normal S1, S2. A 1/6 systolic murmur at base. ABDOMEN: Soft. G-tube intact. EXTREMITIES: No edema. LABORATORY DATA: Sodium 144, potassium 4.6, BUN 40, creatinine 1.7, bicarb 23, albumin 2.4. IMPRESSION: 1. Renal function continues to improve with hydration. 2. Glucose parameters are increasing. 3. The patient has acute on chronic diastolic congestive heart failure with third-spacing exacerbated by severe protein-calorie malnutrition. 4. Pulmonary infiltrates due to aspiration are present as well. PLAN: 1. The patient received a single dose of diuretic therapy. 2. IV fluids can be discontinued. 3. Glucose parameters will improve dextrose. I would observe without additional diuresis at this time. 4. Continue antihypertensive and anti-failure regimen with titration based on clinical parameters. 5. Aspiration precautions. 6. Insulin coverage by sliding scale. Kavon Peña M.D. DR: GOVIND JOB#: [id number] CC:
[2019-06-16 04:00] VITALS: BP 101/48
[2019-06-16] MEDS: HydrALAZINE 50mg tab GT SCH ×3 (06:00→22:01)
[2019-06-16] MEDS: Metoclopramide 10mg/10ml Liq NG SCH ×3 (06:34→22:04)
[2019-06-16] MEDS: NovoLOG Insulin Flexpen SUBQ SCH ×4 (06:35→22:03)
--- NOTE | 2019-06-16 07:30 | General Progress Note ---
Assessment/Plan Problem List: (1) HTN (hypertension) ICD Codes: I10 - Essential (primary) hypertension SNOMED: 19077039 (2) Pneumonia ICD Codes: J18.9 - Pneumonia, unspecified organism SNOMED: 654116517 (3) ATN (acute tubular necrosis) ICD Codes: N17.0 - Acute kidney failure with tubular necrosis SNOMED: 48248293 (4) CHF (congestive heart failure) ICD Codes: I50.9 - Heart failure, unspecified SNOMED: 31132807 Qualifiers: Qualified Codes: I50.9 - Heart failure, unspecified (5) Encephalopathy acute ICD Codes: G93.40 - Encephalopathy, unspecified SNOMED: 9421656 (6) UTI (urinary tract infection) ICD Codes: N39.0 - Urinary tract infection, site not specified SNOMED: 23868119 Qualifiers: Qualified Codes: N30.00 - Acute cystitis without hematuria Status: stable Assessment/Plan: ivf dcd lasix prn monitor volume status. difficult to manage with renal insuff glycopyrrolate for secretion control resp rx suctioning gt feeds- watch residuals reglan gi eval follow up bowel regime iv abx per id follow up cultures dc planning Subjective ROS Limited/Unobtainable: Yes Constitutional: Reports: malaise, weakness HEENT: Reports: no symptoms Cardiovascular: Reports: no symptoms Respiratory: Reports: cough, shortness of breath Gastrointestinal/Abdominal: Reports: difficulty swallowing Genitourinary: Reports: no symptoms Neurologic/Psychiatric: Reports: pre-existing deficit, seizure Endocrine: Reports: no symptoms Hematologic/Lymphatic: Reports: anemia Allergies: Coded Allergies: No Known Allergies (Verified , 12/31/09) All Systems: reviewed and negative except above Subjective remains congested. less than yesterday. per staff minimal secretions. tolerating gt feeds Objective Last 24 Hour Vital Signs Date Time Temp Pulse Resp B/P (MAP) Pulse Ox O2 Delivery O2 Flow Rate FiO2 06/16/19 06:00 117/67 06/16/19 04:00 97.9 89 18 101/48 (65) 94 06/16/19 01:18 88 20 100 Nasal Cannula 2.0 28 81 20 98 06/16/19 00:00 98.1 90 20 112/63 (79) 100 06/15/19 21:43 135/67 06/15/19 21:00 Nasal Cannula 2.0 10/9/19 20:00 98.1 79 20 135/67 (89) 98 06/15/19 16:00 98.8 71 18 108/61 (77) 98 06/15/19 14:07 75 20 99 Nasal Cannula 2.0 28 78 20 98 06/15/19 14:00 90/50 06/15/19 12:00 98.7 73 20 115/63 (80) 100 06/15/19 09:00 Nasal Cannula 2.0 06/15/19 08:00 100.0 87 28 109/65 (80) 96 Intake and Output 06/15/19 06/16/19 18:59 06:59 Intake Total 1395 ml Output Total 350 ml 650 ml Balance 1045 ml -650 ml Free Water 450 ml IV Total 405 ml Tube Feeding 540 ml Output Urine Total 350 ml 650 ml # Voids 1 # Bowel Movements 4 Height (Feet): 5 Height (Inches): 5.00 Weight (Pounds): 154 Objective General Appearance: WD/WN, alert Neck: supple Cardiovascular: normal rate, regular rhythm Respiratory/Chest: chest wall non-tender, no respiratory distress, no accessory muscle use, rhonchi - bilaterally Abdomen: normal bowel sounds, non tender, soft, no organomegaly Edema: no edema noted Arm (L), no edema noted Arm (R), no edema noted Leg (L), no edema noted Leg (R), no edema noted Pedal (L), no edema noted Pedal (R), no edema noted Generalized Jeffrey Crowder MD Jun 16, 2019 07:30
--- NOTE | 2019-06-16 07:32 | NUR ---
HAND-OFF: REPORT GIVEN TO FELY GR. ENDORSED PLAN OF CARE. PT IS IN STABLE CONDITION.
--- NOTE | 2019-06-16 07:33 | NUR ---
NURSE NOTES: PATIENT RECEIVED FROM JEANA, RN. PATIENT ALERT BUT NON-VERBAL, INTRODUCED MYSELF, PATIENT HAS FLAT AFFECT. PATIENT HAS UPPER RIGHT ARM SINGLE LUMEN ACCESS NO IV SITE. NO FLUIDS RUNNING. PATIENT HAS GTUBE TURNED OFF PER POLICY TO HOLD FOR SYNTHROID. WILL TURN ON AGAIN AT CORRECT TIME. BED IS IN THE LOW AND LOCKED POSITION, CALL LIGHT AT REACH, EXPLAINED TO PATIENT TO USE CALL LIGHT IF SHE NEEDS ANY ASSISTANCE.
[2019-06-16 08:00] VITALS: BP 99/62
--- NOTE | 2019-06-16 08:14 | Pulmonology Progress Note ---
Assessment/Plan Assessment/Plan Impression: Congestive heart failure Possible pneumonia Urinary tract infection Encephalopathy, Dementia HO Seizures Anemia Acute renal failure Diabetes Hypertension Previous CVA Cerebral Palsy HO right femur fracture Debility Pleural effusions Plan no significant effusions to tap cultures reviewed imaging reviewed- repeat in am monitor fluid status O2 as needed neb therapy maintain meds for change still acute at present DVT prophylaxis cards follow up and recommendations impression, plan, and exam edited and reviewed in detail care discussed with RN Subjective ROS Limited/Unobtainable: Yes Allergies: Coded Allergies: No Known Allergies (Verified , 12/31/09) Subjective overall care reviewed and discussed cxr seems worse Objective Last 24 Hour Vital Signs Date Time Temp Pulse Resp B/P (MAP) Pulse Ox O2 Delivery O2 Flow Rate FiO2 06/16/19 07:31 85 20 100 Nasal Cannula 2.0 28 84 20 97 06/16/19 06:00 117/67 06/16/19 04:00 97.9 89 18 101/48 (65) 94 06/16/19 01:18 88 20 100 Nasal Cannula 2.0 28 81 20 98 06/16/19 00:00 98.1 90 20 112/63 (79) 100 06/15/19 21:43 135/67 06/15/19 21:00 Nasal Cannula 2.0 06/15/19 20:00 98.1 79 20 135/67 (89) 98 06/15/19 16:00 98.8 71 18 108/61 (77) 98 06/15/19 14:07 75 20 99 Nasal Cannula 2.0 28 78 20 98 06/15/19 14:00 90/50 06/15/19 12:00 98.7 73 20 115/63 (80) 100 06/15/19 09:00 Nasal Cannula 2.0 Intake and Output 06/15/19 06/16/19 18:59 06:59 Intake Total 1395 ml Output Total 350 ml 650 ml Balance 1045 ml -650 ml Free Water 450 ml IV Total 405 ml Tube Feeding 540 ml Output Urine Total 350 ml 650 ml # Voids 1 # Bowel Movements 4 Objective WDWN NAD on oxygen reduced breath sounds bilaterally with persistent rhonchi [id number] without MRG NABS nontender no HSM no CC + edema confused nonfocal Microbiology Date/Time Source Procedure Growth Status 06/13/19 12:05 Sputum Gram Stain - Final Resulted 06/13/19 12:05 Sputum Culture - Preliminary Gram Negative Bacillus 1 Usual Respiratory Smita Resulted Current Medications Medications (Trade) Dose Ordered Sig/Aaron Route PRN Reason Start Time Stop Time Status Last Admin Dose Admin Acetaminophen (Tylenol) 650 mg Q4H PRN GT Mild Pain/Temp > 100.5 06/14/19 18:00 07/10/19 17:59 Albuterol/ Ipratropium (Albuterol/ Ipratropium) 3 ml Q6HRT HHN 06/15/19 01:45 06/20/19 01:44 06/16/19 07:35 Cefepime HCl 1 gm/ Dextrose 55 ml @ 110 mls/hr Q24H IVPB 06/15/19 13:00 06/20/19 12:59 06/15/19 13:20 Dextrose (Dextrose 50%) 25 ml Q30M PRN IV Hypoglycemia 06/14/19 17:45 07/10/19 00:44 Dextrose (Dextrose 50%) 50 ml Q30M PRN IV Hypoglycemia 06/14/19 17:45 07/10/19 00:44 Fluconazole (Diflucan) 100 mg DAILY GT 06/15/19 09:00 06/19/19 10:44 06/15/19 08:49 Gabapentin (Neurontin) 100 mg Q12HR GT 06/14/19 21:00 07/14/19 20:59 06/15/19 21:42 Guaifenesin (Robitussin) 100 mg Q6H PRN GT For Cough 06/14/19 18:00 07/11/19 17:59 Heparin Sodium (Porcine) (Heparin 5000 units/ml) 5,000 units EVERY 12 HOURS SUBQ 06/14/19 21:00 07/10/19 20:59 06/15/19 22:24 Hydralazine HCl (Apresoline) 50 mg Q8HR GT 06/14/19 22:00 07/14/19 21:59 06/15/19 21:43 Insulin Aspart (NovoLOG) BEFORE MEALS AND HS SUBQ 06/14/19 21:00 07/10/19 06:29 06/16/19 06:35 Levetiracetam (Keppra) 1,000 mg Q12HR GT 06/14/19 21:00 07/11/19 08:59 06/15/19 21:42 Levothyroxine Sodium (Synthroid) 50 mcg ACBREAKFAST GT 06/15/19 06:30 07/12/19 06:29 06/16/19 06:34 Metoclopramide HCl (Reglan) 10 mg EVERY 8 HOURS NG 06/16/19 06:00 06/26/19 06:00 06/16/19 06:34 Torey Douglass MD Jun 16, 2019 08:13
[2019-06-16] MEDS: Fluconazole 100mg tab GT SCH (08:32)
[2019-06-16] MEDS: Gabapentin 300 MG/6 ML Soln GT SCH ×2 (08:33→22:01)
[2019-06-16] MEDS: Heparin 5000 units/ml inj SUBQ SCH ×3 (08:36→21:00)
--- NOTE | 2019-06-16 08:55 | NUR ---
NURSE NOTES: holding g-tube feed per residual of 120ml also noticed a few small blood clots in the gtube when checking residual, because of this I held the Heparin.
[2019-06-16 09:03] LABS: ANION GAP 7 mmol/L (5-15); BLOOD UREA NITROGEN 40 mg/dL (7-18); CALCIUM 8.6 MG/DL (8.5-10.1); CARBON DIOXIDE 24 MMOL/L (21-32); CHLORIDE 110 MMOL/L (98-107); CREATININE 1.9 MG/DL (0.55-1.30); SODIUM 141 MMOL/L (136-145)
--- NOTE | 2019-06-16 09:03 | NUR ---
RD ASSESSMENT & RECOMMENDATIONS SEE CARE ACTIVITY FOR COMPLETE ASSESSMENT DAILY ESTIMATED NEEDS: Needs based on DM, Renal, wound, WOUND CARE CENTER CONSULTANT TF, bedbound, CHF 65kg 20-25 kcals/kg [id number] total kcals 1.25-1.5 g protein/kg 81-98 g total protein 20-25ml/kcal mL/kg 9634-8646 total fluid mLs NUTRITION DIAGNOSIS: 1) Altered nutrition related lab values r/t clinical status, DM, ARF on CKD as evidenced by pt w/ elev BUN (132-> 63-> 40), Cr (3.0-> 2.0-> 1.7), low Na (123-> 147-> 144). 2) Swallowing difficulty r/t dysphagia as evidenced by pt is GT dep. CURRENT TF: Glucerna 1.2 @45ml /hr x22 hrs ENTERAL NUTRITION RECOMMENDATIONS: Glucerna 1.2 @ 45ml/hr x 22 hrs + Prosource BID to provide 990ml, 1188kcal, 59g+ 22g prot, 797ml free water * Until BG is better controlled, will maintain recs at current TF (Glucerna 1.2 @45)- however rec to ADD PROSOURCE BID to meet est pro needs. * Hold 1 hr before and after Synthroid med * HOB over 30 degrees/ water flush per MD ADDITIONAL RECOMMENDATIONS: 1) Monitor lytes closely, need for TF change ( Pt on Nepro WOUND CARE CENTER CONSULTANT, possible h/o electrolyte imbalance) 2) Wound eval- MVI x 1, Vit C 250mg QD, Maik 1pkt BID via PEG 3) Calibrate bed scale for accurate wt BED WT: 154 lbs vs SNF recorded WT: 143 lbs . .
--- NOTE | 2019-06-16 10:52 | NUR ---
NURSE NOTES: CHECKED RESIDUAL FROM G TUBE. 30ML RESIDUAL. RESTARTED GTUBE FEEDINGS AT 45ML/HOUR.
--- NOTE | 2019-06-16 11:33 | NUR ---
NURSE NOTES: DR GARCIA MADE ROUNDS, TOLD HIM THAT PATIENT HAS RESIDUAL OF 120ML THIS AM, ALSO INFORMED HIM THAT PATIENT HAD A COUPLE OF SMALL BLOOD CLOTS IN RESIDUAL.
--- NOTE | 2019-06-16 11:52 | General Progress Note ---
Assessment/Plan Status: stable Assessment/Plan: Assessment - TF intolerance, likely due to underlying DM gastroparesis - hyponatremia, resolved - OBS - dysphagia - mild elevation in alk phos Recommendations - short term Reglan trial - 2 weeks - Elevate HOB - Check abd ultrasound - follow LFT Subjective Allergies: Coded Allergies: No Known Allergies (Verified , 12/31/09) Subjective Above noted d/w staff nurse TF held this am due to elevated residuals Objective Last 24 Hour Vital Signs Date Time Temp Pulse Resp B/P (MAP) Pulse Ox O2 Delivery O2 Flow Rate FiO2 06/16/19 09:00 Nasal Cannula 2.0 06/16/19 08:00 97.8 80 18 99/62 (74) 95 06/16/19 07:31 85 20 100 Nasal Cannula 2.0 28 84 20 97 06/16/19 06:00 117/67 06/16/19 04:00 97.9 89 18 101/48 (65) 94 06/16/19 01:18 88 20 100 Nasal Cannula 2.0 28 81 20 98 06/16/19 00:00 98.1 90 20 112/63 (79) 100 06/15/19 21:43 135/67 06/15/19 21:00 Nasal Cannula 2.0 06/15/19 20:00 98.1 79 20 135/67 (89) 98 06/15/19 16:00 98.8 71 18 108/61 (77) 98 06/15/19 14:07 75 20 99 Nasal Cannula 2.0 28 78 20 98 06/15/19 14:00 90/50 06/15/19 12:00 98.7 73 20 115/63 (80) 100 Intake and Output 06/15/19 06/16/19 19:00 07:00 Intake Total 1200 ml Output Total 350 ml 650 ml Balance 850 ml -650 ml Free Water 300 ml IV Total 405 ml Tube Feeding 495 ml Output Urine Total 350 ml 650 ml # Voids 1 # Bowel Movements 4 Laboratory Tests 06/16/19 08:30: Sodium Level 141, Potassium Level 5.0, Chloride Level 110H, Carbon Dioxide Level 24, Anion Gap 7, Blood Urea Nitrogen 40H, Creatinine 1.9H, Estimat Glomerular Filtration Rate , Glucose Level 198H, Calcium Level 8.6, Magnesium Level 2.3 Height (Feet): 5 Height (Inches): 5.00 Weight (Pounds): 154 Objective Elderly AA woman NCAT supple CTA RRR abd soft, (+) GT no edema OBS Darrell Griffith MD Jun 16, 2019 11:52
[2019-06-16 12:00] VITALS: BP 112/46
[2019-06-16] MEDS: Cefepime HCl 1 GM in D5W 55 ML IVPB SCH (12:18)
--- NOTE | 2019-06-16 12:46 | Infectious Diseases Prog Note ---
Assessment/Plan Assessment/Plan A 1. Pseudomonas pneumonia 2. fungal UTI 3. diabetes mellitus 4. hypertension 5. 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 change Cefepime to Levaquin 2. continue fluconazole 2 more days 3. will follow up cultures Subjective ROS Limited/Unobtainable: Yes Constitutional: Denies: fever Allergies: Coded Allergies: No Known Allergies (Verified , 12/31/09) Objective Vital Signs Last 24 Hour Vital Signs Date Time Temp Pulse Resp B/P (MAP) Pulse Ox O2 Delivery O2 Flow Rate FiO2 06/16/19 12:00 99.3 85 18 112/46 (68) 93 06/16/19 09:00 Nasal Cannula 2.0 06/16/19 08:00 97.8 80 18 99/62 (74) 95 06/16/19 07:31 85 20 100 Nasal Cannula 2.0 28 84 20 97 06/16/19 06:00 117/67 06/16/19 04:00 97.9 89 18 101/48 (65) 94 06/16/19 01:18 88 20 100 Nasal Cannula 2.0 28 81 20 98 06/16/19 00:00 98.1 90 20 112/63 (79) 100 06/15/19 21:43 135/67 06/15/19 21:00 Nasal Cannula 2.0 06/15/19 20:00 98.1 79 20 135/67 (89) 98 06/15/19 16:00 98.8 71 18 108/61 (77) 98 06/15/19 14:07 75 20 99 Nasal Cannula 2.0 28 78 20 98 06/15/19 14:00 90/50 Height (Feet): 5 Height (Inches): 5.00 Weight (Pounds): 154 General Appearance: no acute distress HEENT: mucous membranes moist Respiratory/Chest: lungs clear, other - oxygen by nasal cannula Cardiovascular: normal rate Abdomen: soft, non tender, other Extremities: other - hands edema Neurologic/Psychiatric: aphasia Laboratory Tests Test 06/16/19 08:30 Sodium Level 141 MMOL/L (136-145) Potassium Level 5.0 MMOL/L (3.5-5.1) Chloride Level 110 MMOL/L (98-107) H Carbon Dioxide Level 24 MMOL/L (21-32) Anion Gap 7 mmol/L (5-15) Blood Urea Nitrogen 40 mg/dL (7-18) H Creatinine 1.9 MG/DL (0.55-1.30) H Estimat Glomerular Filtration Rate mL/min (>60) Glucose Level 198 MG/DL (74-106) H Calcium Level 8.6 MG/DL (8.5-10.1) Magnesium Level 2.3 MG/DL (1.8-2.4) Current Medications Medications (Trade) Dose Ordered Sig/Aaron Route PRN Reason Start Time Stop Time Status Last Admin Dose Admin Acetaminophen (Tylenol) 650 mg Q4H PRN GT Mild Pain/Temp > 100.5 06/14/19 18:00 07/10/19 17:59 Albuterol/ Ipratropium (Albuterol/ Ipratropium) 3 ml Q6HRT HHN 06/15/19 01:45 06/20/19 01:44 06/16/19 07:35 Cefepime HCl 1 gm/ Dextrose 55 ml @ 110 mls/hr Q24H IVPB 06/15/19 13:00 06/20/19 12:59 06/16/19 12:18 Dextrose (Dextrose 50%) 25 ml Q30M PRN IV Hypoglycemia 06/14/19 17:45 07/10/19 00:44 Dextrose (Dextrose 50%) 50 ml Q30M PRN IV Hypoglycemia 06/14/19 17:45 07/10/19 00:44 Fluconazole (Diflucan) 100 mg DAILY GT 06/15/19 09:00 06/19/19 10:44 06/16/19 08:32 Gabapentin (Neurontin) 100 mg Q12HR GT 06/14/19 21:00 07/14/19 20:59 06/16/19 08:33 Guaifenesin (Robitussin) 100 mg Q6H PRN GT For Cough 06/14/19 18:00 07/11/19 17:59 Heparin Sodium (Porcine) (Heparin 5000 units/ml) 5,000 units EVERY 12 HOURS SUBQ 06/14/19 21:00 07/10/19 20:59 06/15/19 22:24 Hydralazine HCl (Apresoline) 50 mg Q8HR GT 06/14/19 22:00 07/14/19 21:59 06/15/19 21:43 Insulin Aspart (NovoLOG) BEFORE MEALS AND HS SUBQ 06/14/19 21:00 07/10/19 06:29 06/16/19 11:36 Levetiracetam (Keppra) 1,000 mg Q12HR GT 06/14/19 21:00 07/11/19 08:59 06/16/19 08:32 Levothyroxine Sodium (Synthroid) 50 mcg ACBREAKFAST GT 06/15/19 06:30 07/12/19 06:29 06/16/19 06:34 Metoclopramide HCl (Reglan) 10 mg EVERY 8 HOURS NG 06/16/19 06:00 06/26/19 06:00 06/16/19 06:34 Bay Richter MD Jun 16, 2019 12:46
--- NOTE | 2019-06-16 13:23 | NUR ---
CASE MANAGEMENT:REVIEW 06/16/19 SI: ACUTE RENAL FAILURE. DEHYDRATION AC/CHR CHF. PNA 99.3 85 18 99/62 95% ON 2L/NC BUN+40 CR+1.9 IS: IVF@75/HR LEVAQUIN GT QOD REGLAN GT Q8HRS DIFLUCAN GT QD NEURONTIN GT BID KEPPRA GT Q12 HEPARIN SQ Q12 DUONEB HHN Q6HRS RTC HYDRALAZINE GT Q8HRS : TELEMETRY STATUS DCP: FROM [facility]
[2019-06-16 16:00] VITALS: BP 124/64
--- NOTE | 2019-06-16 16:10 | NUR ---
NURSE NOTES: HELD RAGLAN AND BLOOD PRESSURE MEDICATION DUE AT 1400 DUE TO PATIENT UNDERGOING ABDOMINAL ULTRASOUND. DID NOT ADMINISTER BECAUSE WAS OVER 1 HOUR AFTER MEDICATION WAS DUE.
--- NOTE | 2019-06-16 16:15 | NUR ---
NURSE NOTES: PATIENT HAD PARTLY LOOSE BOWEL MOVEMENT THIS AM WITNESSED BY ME, SPOKE TO [facility] TO SEE IF SHE HAS HAD ANY LOOSE STOOL AGAIN TODAY [facility] STATED PATIENT HAD A SECOND LOOSE BOWEL MOVEMENT. WILL PLACE ORDER FOR C-DIFF CULTURE PER HOSPITAL [facility]OT[facility].
[2019-06-16 16:18] LABS: BASOPHILS % (AUTO) 0.5 % (0.0-2.0); HEMATOCRIT 32.2 % (37.0-47.0); HEMOGLOBIN 10.2 G/DL (12.0-16.0); LYMPHOCYTES % (AUTO) 25.6 % (20.0-45.0); MEAN CORPUSCULAR VOLUME 86 FL (80-99); MONOCYTES % (AUTO) 6.5 % (1.0-10.0); NEUTROPHILS % (AUTO) 62.4 % (45.0-75.0); PLATELET COUNT 146 K/UL (150-450); RED BLOOD COUNT 3.73 M/UL (4.20-5.40); RED CELL DISTRIBUTION WIDTH 15.6 % (11.6-14.8); WHITE BLOOD COUNT 9.5 K/UL (4.8-10.8)
--- NOTE | 2019-06-16 19:32 | NUR ---
HAND-OFF: Report given to FELY LE.
[2019-06-16 20:00] VITALS: BP 108/64
--- NOTE | 2019-06-16 20:00 | NUR ---
pt. received in bed. pt. awake but non-verbal.incomprehensible, moans something. eyes open spontaneously. no react PERRLA.no response to any stimulus. pt. has G-tube and Barron catheter via gravity. auscultation of lungs sound: gurgles sound presents may decreased by reposition. bed is in the lowest position and locked, call light within reach.
--- NOTE | 2019-06-16 23:54 | NUR ---
often oral suction requests d/t difficulty clearing secretion. sputum clear, thin consistency presents.
[2019-06-17] MEDS: Albuterol/Ipratropium 3ml neb HHN SCH ×4 (00:01→19:29)
[2019-06-17 00:39] VITALS: BP 129/76
[2019-06-17 04:00] VITALS: BP 122/65
--- NOTE | 2019-06-17 04:15 | Progress Note ---
DATE: 06/16/2019 CARDIOLOGY PROGRESS NOTE SUBJECTIVE: Secretions are decreased. Congestion is improved. G-tube feeds tolerated now without residuals. Monitored rhythm sinus with rare atrial ectopics. OBJECTIVE: VITAL SIGNS: Blood pressure 117/67, heart rate 89, and respirations 18. Afebrile. LUNGS: Few rhonchi. HEART: Regular rhythm and rate. Normal S1, S2 with a 1/6 systolic murmur at base. ABDOMEN: Soft. EXTREMITIES: No edema. LABORATORY DATA: White count 9.5 and hemoglobin 10.2. Potassium 5, BUN 40, and creatinine 1.9. IMPRESSION: 1. Pseudomonas pneumonia. 2. Fungal cystitis. 3. 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 4. Acute on chronic renal failure, recovered. 5. Chronic diastolic congestive heart failure. 6. Hypertensive heart disease. PLAN: 1. Antimicrobials. 2. Respiratory hygiene. 3. Off diuretics. 4. Maintain adequate hydration. 5. May need to resume intravenous fluids. 6. Titrate antihypertensives. 7. Continue antiseizure therapy. Kavon Peña M.D. DR: RICHY JOB#: [id number] CC:
[2019-06-17] MEDS: Metoclopramide 10mg/10ml Liq NG SCH ×3 (05:54→21:40)
[2019-06-17] MEDS: HydrALAZINE 50mg tab GT SCH ×3 (05:54→21:40)
[2019-06-17] MEDS: NovoLOG Insulin Flexpen SUBQ SCH ×4 (05:55→21:41)
--- NOTE | 2019-06-17 06:30 | NUR ---
NURSE NOTES: Dr. Crowder at bedside, made aware of increased secretions needing often suctioning (orally/NT). Per MD, will re-order lasix.
[2019-06-17 06:53] LABS: ALANINE AMINOTRANSFERASE 24 U/L (12-78); ALBUMIN 2.4 G/DL (3.4-5.0); ALBUMIN/GLOBULIN RATIO 0.5 (1.0-2.7); ALKALINE PHOSPHATASE 124 U/L (46-116); ANION GAP 7 mmol/L (5-15); ASPARTATE AMINO TRANSFERASE 19 U/L (15-37); BILIRUBIN,TOTAL 0.3 MG/DL (0.2-1.0); BLOOD UREA NITROGEN 35 mg/dL (7-18); CALCIUM 8.7 MG/DL (8.5-10.1); CARBON DIOXIDE 24 MMOL/L (21-32); CHLORIDE 110 MMOL/L (98-107); CREATININE 1.8 MG/DL (0.55-1.30); GAMMA GLUTAMYL TRANSPEPTIDASE 28 U/L (5-85); POTASSIUM 5.1 MMOL/L (3.5-5.1); SODIUM 141 MMOL/L (136-145)
--- NOTE | 2019-06-17 07:06 | NUR ---
HAND-OFF: Report given to Jesus GEIGER. Endorsed plan of care.
--- NOTE | 2019-06-17 07:18 | NUR ---
NURSE NOTES: HANDOFF RECEIVED FROM FELY LE. PATIENT RECEIVED SLEEPING IN BED, NO VISIBLE SIGNS OF DISTRESS. PATIENT HAS RIGHT ARM SINGLE LUMEN MIDLINE, SALINE LOCKED. BED IN THE LOW AND LOCKED POSITION WITH CALL LIGHT WITHIN REACH, WILL CONTINUE TO MONITOR PATIENT.
[2019-06-17 08:00] VITALS: BP 112/59
[2019-06-17] MEDS: Gabapentin 300 MG/6 ML Soln GT SCH ×2 (08:34→21:40)
[2019-06-17] MEDS: Heparin 5000 units/ml inj SUBQ SCH ×2 (08:34→21:00)
[2019-06-17] MEDS: Levofloxacin 750mg tab GT SCH (08:34)
[2019-06-17] MEDS: Fluconazole 100mg tab GT SCH (08:34)
--- NOTE | 2019-06-17 10:08 | Diagnostic Imaging Report ---
Indication: Abdominal pain Technique: Grayscale and duplex Doppler imaging of the abdomen performed. Comparison: None Findings: There is some limitation due to body habitus and bowel gas. The liver is unremarkable. Doppler interrogation of the main portal vein shows patency with hepatopedal, monophasic flow. There is no biliary ductal dilatation identified. Gallbladder is unremarkable. The pancreas, aorta and IVC are poorly seen. Both kidneys appear grossly unremarkable. There is a 9 mm right renal cyst. There is no hydronephrosis. IMPRESSION: No acute findings. Some limitations on this study. Right renal cyst
--- NOTE | 2019-06-17 10:58 | NUR ---
RADIOLOGY DEPT., CHEST X-RAY DONE.-P.DYE
[2019-06-17 12:00] VITALS: BP 116/62
--- NOTE | 2019-06-17 12:53 | Diagnostic Imaging Report ---
Indication: Dyspnea Comparison: 06/14/2019 A single view chest radiograph was obtained. Findings: Pulmonary vascular congestion and interstitial edema and some alveolar disease noted with some improvement over the last few days. Heart remains enlarged. IMPRESSION: Mild to moderate CHF with some interval improvement
--- NOTE | 2019-06-17 14:58 | Infectious Diseases Prog Note ---
Assessment/Plan Assessment/Plan A 1. Pseudomonas pneumonia 2. fungal UTI 3. diabetes mellitus 4. hypertension 5. 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 continue Levaquin 2. continue fluconazole 1 more day 3. will follow up cultures Subjective ROS Limited/Unobtainable: Yes Allergies: Coded Allergies: No Known Allergies (Verified , 12/31/09) Objective Vital Signs Last 24 Hour Vital Signs Date Time Temp Pulse Resp B/P (MAP) Pulse Ox O2 Delivery O2 Flow Rate FiO2 06/17/19 13:24 116/62 06/17/19 12:41 79 20 100 Nasal Cannula 2.0 28 72 20 98 06/17/19 12:00 98.4 79 18 116/62 (80) 98 06/17/19 09:00 Nasal Cannula 2.0 06/17/19 08:01 98 Nasal Cannula 2.0 28 06/17/19 08:00 98.0 78 18 112/59 (76) 97 06/17/19 07:50 82 20 100 Nasal Cannula 2.0 28 75 20 98 06/17/19 05:54 116/78 06/17/19 04:00 99.1 85 20 122/65 (84) 97 06/17/19 00:39 99.0 76 20 129/76 (93) 94 06/17/19 00:01 79 18 100 Nasal Cannula 2.0 28 74 18 98 06/16/19 22:01 125/72 06/16/19 21:00 Nasal Cannula 2.0 06/16/19 20:00 98.2 72 16 108/64 (79) 99 06/16/19 19:39 95 Nasal Cannula 2.0 28 06/16/19 19:36 82 18 97 Nasal Cannula 2.0 28 77 18 95 06/16/19 19:35 77 18 95 Nasal Cannula 2.0 28 06/16/19 16:00 98.8 77 18 124/64 (84) 98 Height (Feet): 5 Height (Inches): 5.00 Weight (Pounds): 154 General Appearance: no acute distress HEENT: mucous membranes moist Respiratory/Chest: lungs clear, other - oxygen by nasal cannula Cardiovascular: normal rate Abdomen: soft, non tender, other - GT feeding Genitourinary: other - Barron catheter Extremities: no edema Neurologic/Psychiatric: other - sleeping Laboratory Tests Test 06/17/19 04:52 Sodium Level 141 MMOL/L (136-145) Potassium Level 5.1 MMOL/L (3.5-5.1) Chloride Level 110 MMOL/L (98-107) H Carbon Dioxide Level 24 MMOL/L (21-32) Anion Gap 7 mmol/L (5-15) Blood Urea Nitrogen 35 mg/dL (7-18) H Creatinine 1.8 MG/DL (0.55-1.30) H Estimat Glomerular Filtration Rate mL/min (>60) Glucose Level 229 MG/DL (74-106) H Calcium Level 8.7 MG/DL (8.5-10.1) Total Bilirubin 0.3 MG/DL (0.2-1.0) Gamma Glutamyl Transpeptidase 28 U/L (5-85) Aspartate Amino Transf (AST/SGOT) 19 U/L (15-37) Alanine Aminotransferase (ALT/SGPT) 24 U/L (12-78) Alkaline Phosphatase 124 U/L (46-116) H Total Protein 7.2 G/DL (6.4-8.2) Albumin 2.4 G/DL (3.4-5.0) L Globulin 4.8 g/dL Albumin/Globulin Ratio 0.5 (1.0-2.7) L Current Medications Medications (Trade) Dose Ordered Sig/Aaron Route PRN Reason Start Time Stop Time Status Last Admin Dose Admin Acetaminophen (Tylenol) 650 mg Q4H PRN GT Mild Pain/Temp > 100.5 06/14/19 18:00 07/10/19 17:59 Albuterol/ Ipratropium (Albuterol/ Ipratropium) 3 ml Q6HRT HHN 06/15/19 01:45 06/20/19 01:44 06/17/19 12:41 Dextrose (Dextrose 50%) 25 ml Q30M PRN IV Hypoglycemia 06/14/19 17:45 07/10/19 00:44 Dextrose (Dextrose 50%) 50 ml Q30M PRN IV Hypoglycemia 06/14/19 17:45 07/10/19 00:44 Fluconazole (Diflucan) 100 mg DAILY GT 06/15/19 09:00 06/19/19 10:44 06/17/19 08:34 Gabapentin (Neurontin) 100 mg Q12HR GT 06/14/19 21:00 07/14/19 20:59 06/17/19 08:34 Guaifenesin (Robitussin) 100 mg Q6H PRN GT For Cough 06/14/19 18:00 07/11/19 17:59 Heparin Sodium (Porcine) (Heparin 5000 units/ml) 5,000 units EVERY 12 HOURS SUBQ 06/14/19 21:00 07/10/19 20:59 06/15/19 22:24 Hydralazine HCl (Apresoline) 50 mg Q8HR GT 06/14/19 22:00 07/14/19 21:59 06/17/19 13:24 Insulin Aspart (NovoLOG) BEFORE MEALS AND HS SUBQ 06/14/19 21:00 07/10/19 06:29 06/17/19 12:06 Levetiracetam (Keppra) 1,000 mg Q12HR GT 06/14/19 21:00 07/11/19 08:59 06/17/19 08:34 Levofloxacin (Levaquin) 750 mg EVERY OTHER DAY GT 06/17/19 09:00 06/24/19 08:59 06/17/19 08:34 Levothyroxine Sodium (Synthroid) 50 mcg ACBREAKFAST GT 06/15/19 06:30 07/12/19 06:29 06/17/19 05:54 Metoclopramide HCl (Reglan) 10 mg EVERY 8 HOURS NG 06/16/19 06:00 06/26/19 06:00 06/17/19 13:24 Bay Richter MD Jun 17, 2019 14:58
--- NOTE | 2019-06-17 15:29 | Pulmonology Progress Note ---
Assessment/Plan Assessment/Plan Impression: Congestive heart failure Possible pneumonia Urinary tract infection Encephalopathy, Dementia HO Seizures Anemia Acute renal failure Diabetes Hypertension Previous CVA Cerebral Palsy HO right femur fracture Debility Pleural effusions Plan no significant effusions to tap cultures reviewed imaging reviewed- somewhat better monitor fluid status O2 as needed neb therapy maintain meds for change hope to see further improvement DVT prophylaxis cards follow up and recommendations impression, plan, and exam edited and reviewed in detail care discussed with RN Subjective ROS Limited/Unobtainable: Yes Allergies: Coded Allergies: No Known Allergies (Verified , 12/31/09) Subjective overall care reviewed and discussed cxr reviewed and slightly improved Objective Last 24 Hour Vital Signs Date Time Temp Pulse Resp B/P (MAP) Pulse Ox O2 Delivery O2 Flow Rate FiO2 06/17/19 13:24 116/62 06/17/19 12:41 79 20 100 Nasal Cannula 2.0 28 72 20 98 06/17/19 12:00 98.4 79 18 116/62 (80) 98 06/17/19 09:00 Nasal Cannula 2.0 06/17/19 08:01 98 Nasal Cannula 2.0 28 06/17/19 08:00 98.0 78 18 112/59 (76) 97 06/17/19 07:50 82 20 100 Nasal Cannula 2.0 28 75 20 98 06/17/19 05:54 116/78 06/17/19 04:00 99.1 85 20 122/65 (84) 97 06/17/19 00:39 99.0 76 20 129/76 (93) 94 06/17/19 00:01 79 18 100 Nasal Cannula 2.0 28 74 18 98 06/16/19 22:01 125/72 06/16/19 21:00 Nasal Cannula 2.0 06/16/19 20:00 98.2 72 16 108/64 (79) 99 06/16/19 19:39 95 Nasal Cannula 2.0 28 06/16/19 19:36 82 18 97 Nasal Cannula 2.0 28 77 18 95 06/16/19 19:35 77 18 95 Nasal Cannula 2.0 28 06/16/19 16:00 98.8 77 18 124/64 (84) 98 Intake and Output 06/16/19 06/17/19 19:00 07:00 Intake Total 45 ml 820 ml Output Total 1000 ml Balance -955 ml 820 ml Free Water 370 ml Tube Feeding 45 ml 450 ml Output Urine Total 1000 ml # Bowel Movements 4 Objective WDWN NAD on oxygen reduced breath sounds bilaterally with persistent rhonchi [id number] without MRG NABS nontender no HSM no CC + edema confused nonfocal Laboratory Tests 06/17/19 04:52: Sodium Level 141, Potassium Level 5.1, Chloride Level 110H, Carbon Dioxide Level 24, Anion Gap 7, Blood Urea Nitrogen 35H, Creatinine 1.8H, Estimat Glomerular Filtration Rate , Glucose Level 229H, Calcium Level 8.7, Total Bilirubin 0.3, Gamma Glutamyl Transpeptidase 28, Aspartate Amino Transf (AST/ SGOT) 19, Alanine Aminotransferase (ALT/SGPT) 24, Alkaline Phosphatase 124H, Total Protein 7.2, Albumin 2.4L, Globulin 4.8, Albumin/Globulin Ratio 0.5L Current Medications Medications (Trade) Dose Ordered Sig/Aaron Route PRN Reason Start Time Stop Time Status Last Admin Dose Admin Acetaminophen (Tylenol) 650 mg Q4H PRN GT Mild Pain/Temp > 100.5 06/14/19 18:00 07/10/19 17:59 Albuterol/ Ipratropium (Albuterol/ Ipratropium) 3 ml Q6HRT HHN 06/15/19 01:45 06/20/19 01:44 06/17/19 12:41 Dextrose (Dextrose 50%) 25 ml Q30M PRN IV Hypoglycemia 06/14/19 17:45 07/10/19 00:44 Dextrose (Dextrose 50%) 50 ml Q30M PRN IV Hypoglycemia 06/14/19 17:45 07/10/19 00:44 Fluconazole (Diflucan) 100 mg DAILY GT 06/15/19 09:00 06/19/19 10:44 06/17/19 08:34 Gabapentin (Neurontin) 100 mg Q12HR GT 06/14/19 21:00 07/14/19 20:59 06/17/19 08:34 Guaifenesin (Robitussin) 100 mg Q6H PRN GT For Cough 06/14/19 18:00 07/11/19 17:59 Heparin Sodium (Porcine) (Heparin 5000 units/ml) 5,000 units EVERY 12 HOURS SUBQ 06/14/19 21:00 07/10/19 20:59 06/15/19 22:24 Hydralazine HCl (Apresoline) 50 mg Q8HR GT 06/14/19 22:00 07/14/19 21:59 06/17/19 13:24 Insulin Aspart (NovoLOG) BEFORE MEALS AND HS SUBQ 06/14/19 21:00 07/10/19 06:29 06/17/19 12:06 Levetiracetam (Keppra) 1,000 mg Q12HR GT 06/14/19 21:00 07/11/19 08:59 06/17/19 08:34 Levofloxacin (Levaquin) 750 mg EVERY OTHER DAY GT 06/17/19 09:00 06/24/19 08:59 06/17/19 08:34 Levothyroxine Sodium (Synthroid) 50 mcg ACBREAKFAST GT 06/15/19 06:30 07/12/19 06:29 06/17/19 05:54 Metoclopramide HCl (Reglan) 10 mg EVERY 8 HOURS NG 06/16/19 06:00 06/26/19 06:00 06/17/19 13:24 Torey Douglsas MD Jun 17, 2019 15:29
[2019-06-17 16:00] VITALS: BP 121/69
--- NOTE | 2019-06-17 16:04 | General Progress Note ---
Assessment/Plan Problem List: (1) HTN (hypertension) ICD Codes: I10 - Essential (primary) hypertension SNOMED: 67058439 (2) Pneumonia ICD Codes: J18.9 - Pneumonia, unspecified organism SNOMED: 564617340 (3) ATN (acute tubular necrosis) ICD Codes: N17.0 - Acute kidney failure with tubular necrosis SNOMED: 57477906 (4) CHF (congestive heart failure) ICD Codes: I50.9 - Heart failure, unspecified SNOMED: 92524085 Qualifiers: Qualified Codes: I50.9 - Heart failure, unspecified (5) Encephalopathy acute ICD Codes: G93.40 - Encephalopathy, unspecified SNOMED: 0871556 (6) UTI (urinary tract infection) ICD Codes: N39.0 - Urinary tract infection, site not specified SNOMED: 75787102 Qualifiers: Qualified Codes: N30.00 - Acute cystitis without hematuria Status: stable Assessment/Plan: lasix monitor volume status. difficult to manage with renal insuff glycopyrrolate for secretion control resp rx suctioning gt feeds- watch residuals reglan gi eval follow up bowel regime iv abx per id follow up cultures hold dc planning planning Subjective ROS Limited/Unobtainable: Yes Constitutional: Reports: malaise, weakness HEENT: Reports: no symptoms Cardiovascular: Reports: edema Respiratory: Reports: shortness of breath, SOB at rest, sputum Gastrointestinal/Abdominal: Reports: difficulty swallowing Genitourinary: Reports: no symptoms Neurologic/Psychiatric: Reports: pre-existing deficit, seizure Endocrine: Reports: no symptoms Hematologic/Lymphatic: Reports: no symptoms Allergies: Coded Allergies: No Known Allergies (Verified , 12/31/09) All Systems: reviewed and negative except above Subjective remains congested. per staff worsening secretions. tolerating gt feeds needs frequent deep suctioning. Objective Last 24 Hour Vital Signs Date Time Temp Pulse Resp B/P (MAP) Pulse Ox O2 Delivery O2 Flow Rate FiO2 06/17/19 13:24 116/62 06/17/19 12:41 79 20 100 Nasal Cannula 2.0 28 72 20 98 06/17/19 12:00 98.4 79 18 116/62 (80) 98 06/17/19 09:00 Nasal Cannula 2.0 06/17/19 08:01 98 Nasal Cannula 2.0 28 06/17/19 08:00 98.0 78 18 112/59 (76) 97 06/17/19 07:50 82 20 100 Nasal Cannula 2.0 28 75 20 98 06/17/19 05:54 116/78 06/17/19 04:00 99.1 85 20 122/65 (84) 97 06/17/19 00:39 99.0 76 20 129/76 (93) 94 06/17/19 00:01 79 18 100 Nasal Cannula 2.0 28 74 18 98 06/16/19 22:01 125/72 06/16/19 21:00 Nasal Cannula 2.0 06/16/19 20:00 98.2 72 16 108/64 (79) 99 06/16/19 19:39 95 Nasal Cannula 2.0 28 06/16/19 19:36 82 18 97 Nasal Cannula 2.0 28 77 18 95 06/16/19 19:35 77 18 95 Nasal Cannula 2.0 28 Intake and Output 06/16/19 06/17/19 19:00 07:00 Intake Total 45 ml 820 ml Output Total 1000 ml Balance -955 ml 820 ml Free Water 370 ml Tube Feeding 45 ml 450 ml Output Urine Total 1000 ml # Bowel Movements 4 Laboratory Tests 06/17/19 04:52: Sodium Level 141, Potassium Level 5.1, Chloride Level 110H, Carbon Dioxide Level 24, Anion Gap 7, Blood Urea Nitrogen 35H, Creatinine 1.8H, Estimat Glomerular Filtration Rate , Glucose Level 229H, Calcium Level 8.7, Total Bilirubin 0.3, Gamma Glutamyl Transpeptidase 28, Aspartate Amino Transf (AST/ SGOT) 19, Alanine Aminotransferase (ALT/SGPT) 24, Alkaline Phosphatase 124H, Total Protein 7.2, Albumin 2.4L, Globulin 4.8, Albumin/Globulin Ratio 0.5L Height (Feet): 5 Height (Inches): 5.00 Weight (Pounds): 154 Objective General Appearance: WD/WN, alert Neck: supple Cardiovascular: normal rate, regular rhythm Respiratory/Chest: chest wall non-tender, no respiratory distress, no accessory muscle use, rhonchi - bilaterally Abdomen: normal bowel sounds, non tender, soft, no organomegaly Edema: no edema noted Arm (L), no edema noted Arm (R), no edema noted Leg (L), no edema noted Leg (R), no edema noted Pedal (L), no edema noted Pedal (R), no edema noted Generalized Jeffrey Crowder MD Jun 17, 2019 16:04
--- NOTE | 2019-06-17 19:28 | General Progress Note ---
Assessment/Plan Status: stable Assessment/Plan: Assessment - TF intolerance, likely due to underlying DM gastroparesis - hyponatremia, resolved - OBS - dysphagia - mild elevation in alk phos Recommendations - short term Reglan trial - 2 weeks - Elevate HOB - Check abd ultrasound - negative - follow LFT Subjective Allergies: Coded Allergies: No Known Allergies (Verified , 12/31/09) Subjective Above noted tolerating TF Objective Last 24 Hour Vital Signs Date Time Temp Pulse Resp B/P (MAP) Pulse Ox O2 Delivery O2 Flow Rate FiO2 06/17/19 16:00 97.9 76 18 121/69 (86) 98 06/17/19 13:24 116/62 06/17/19 12:41 79 20 100 Nasal Cannula 2.0 28 72 20 98 06/17/19 12:00 98.4 79 18 116/62 (80) 98 06/17/19 09:00 Nasal Cannula 2.0 06/17/19 08:01 98 Nasal Cannula 2.0 28 06/17/19 08:00 98.0 78 18 112/59 (76) 97 06/17/19 07:50 82 20 100 Nasal Cannula 2.0 28 75 20 98 06/17/19 05:54 116/78 06/17/19 04:00 99.1 85 20 122/65 (84) 97 06/17/19 00:39 99.0 76 20 129/76 (93) 94 06/17/19 00:01 79 18 100 Nasal Cannula 2.0 28 74 18 98 06/16/19 22:01 125/72 06/16/19 21:00 Nasal Cannula 2.0 06/16/19 20:00 98.2 72 16 108/64 (79) 99 06/16/19 19:39 95 Nasal Cannula 2.0 28 06/16/19 19:36 82 18 97 Nasal Cannula 2.0 28 77 18 95 06/16/19 19:35 77 18 95 Nasal Cannula 2.0 28 Intake and Output 06/16/19 06/17/19 19:00 07:00 Intake Total 45 ml 820 ml Output Total 1000 ml Balance -955 ml 820 ml Free Water 370 ml Tube Feeding 45 ml 450 ml Output Urine Total 1000 ml # Bowel Movements 4 Laboratory Tests 06/17/19 04:52: Sodium Level 141, Potassium Level 5.1, Chloride Level 110H, Carbon Dioxide Level 24, Anion Gap 7, Blood Urea Nitrogen 35H, Creatinine 1.8H, Estimat Glomerular Filtration Rate , Glucose Level 229H, Calcium Level 8.7, Total Bilirubin 0.3, Gamma Glutamyl Transpeptidase 28, Aspartate Amino Transf (AST/ SGOT) 19, Alanine Aminotransferase (ALT/SGPT) 24, Alkaline Phosphatase 124H, Total Protein 7.2, Albumin 2.4L, Globulin 4.8, Albumin/Globulin Ratio 0.5L Height (Feet): 5 Height (Inches): 5.00 Weight (Pounds): 154 Objective Elderly AA woman NCAT supple CTA RRR abd soft, (+) GT no edema OBS Darrell Griffith MD Jun 17, 2019 19:28
--- NOTE | 2019-06-17 19:59 | NUR ---
HAND-OFF: Report given to FELY LE.
[2019-06-17 20:00] VITALS: BP 120/57
--- NOTE | 2019-06-17 21:00 | NUR ---
NURSE NOTES: pt. received in bed. pt. awake but non-verbal.incomprehensible, moans something. auscultation of lungs sound: gurgles sound presents may decreased by reposition. no react PERRLA.no response to any stimulus. pt. has G-tube and Barron catheter via gravity. bed is in the lowest position and locked, call light within reach.
[2019-06-18] VITALS: BP 123/54
[2019-06-18] MEDS: Albuterol/Ipratropium 3ml neb HHN SCH ×4 (01:16→20:23)
--- NOTE | 2019-06-18 01:21 | NUR ---
NURSE NOTES: frequently oral suction requires d/t difficulty clearing secretion. sputum clear, thin consistency presents.
[2019-06-18 04:00] VITALS: BP 96/45
[2019-06-18] MEDS: HydrALAZINE 50mg tab GT SCH (06:00)
[2019-06-18] MEDS: Metoclopramide 10mg/10ml Liq NG SCH (06:03)
[2019-06-18] MEDS: NovoLOG Insulin Flexpen SUBQ SCH ×4 (06:16→21:25)
--- NOTE | 2019-06-18 06:26 | General Progress Note ---
Assessment/Plan Status: stable Assessment/Plan: Assessment - TF intolerance, likely due to underlying DM gastroparesis - hyponatremia, resolved - OBS - dysphagia - mild elevation in alk phos Recommendations - short term Reglan trial - 2 weeks - Elevate HOB - Check abd ultrasound - negative - follow LFT Subjective ROS Limited/Unobtainable: No Allergies: Coded Allergies: No Known Allergies (Verified , 12/31/09) Objective Last 24 Hour Vital Signs Date Time Temp Pulse Resp B/P (MAP) Pulse Ox O2 Delivery O2 Flow Rate FiO2 06/18/19 06:00 104/52 06/18/19 04:00 98.2 78 16 96/45 (62) 95 06/18/19 01:16 79 20 99 Nasal Cannula 2.0 28 81 20 98 06/18/19 00:00 98.1 83 18 123/54 (77) 06/17/19 21:40 125/76 06/17/19 21:00 Nasal Cannula 2.0 06/17/19 20:00 98.7 76 18 120/57 (78) 98 06/17/19 19:31 77 20 100 Nasal Cannula 2.0 28 73 20 99 06/17/19 19:29 99 Nasal Cannula 2.0 28 06/17/19 16:00 97.9 76 18 121/69 (86) 98 06/17/19 13:24 116/62 06/17/19 12:41 79 20 100 Nasal Cannula 2.0 28 72 20 98 06/17/19 12:00 98.4 79 18 116/62 (80) 98 06/17/19 09:00 Nasal Cannula 2.0 06/17/19 08:01 98 Nasal Cannula 2.0 28 06/17/19 08:00 98.0 78 18 112/59 (76) 97 06/17/19 07:50 82 20 100 Nasal Cannula 2.0 28 75 20 98 Intake and Output 06/17/19 06/18/19 19:00 07:00 Intake Total 410 ml Output Total 1200 ml Balance -790 ml Free Water 140 ml Tube Feeding 270 ml Output Urine Total 1200 ml # Bowel Movements 1 Height (Feet): 5 Height (Inches): 5.00 Weight (Pounds): 154 General Appearance: no apparent distress Cardiovascular: normal rate Abdomen: normal bowel sounds, non tender, soft Extremities: non-tender Eder Sims MD Jun 18, 2019 06:26
--- NOTE | 2019-06-18 07:20 | NUR ---
HAND-OFF: Report given to Jenaro GEIGER.
--- NOTE | 2019-06-18 07:30 | NUR ---
NURSE NOTES: Patient awake, non-verbal; on nasal cannula 2 Liter, no sing of distress and shortness of breath; will give suctioning as needed; Tube feeding Glucerna 1.2 running 45cc, no residual, head of the bed elevated; Barron in place and drains well; IV Right-Upper arm single lumen mid-line, dressing dry and intact; side rails up x2, breaks engaged, bed at lowest position; will keep monitoring.
[2019-06-18] MEDS: Heparin 5000 units/ml inj SUBQ SCH ×2 (08:09→21:00)
[2019-06-18] MEDS: Gabapentin 300 MG/6 ML Soln GT SCH ×2 (08:09→21:22)
[2019-06-18] MEDS: Fluconazole 100mg tab GT SCH (08:09)
[2019-06-18 08:35] VITALS: BP 123/70
--- NOTE | 2019-06-18 08:38 | General Progress Note ---
Assessment/Plan Problem List: (1) HTN (hypertension) ICD Codes: I10 - Essential (primary) hypertension SNOMED: 79809378 (2) Pneumonia ICD Codes: J18.9 - Pneumonia, unspecified organism SNOMED: 410981665 (3) ATN (acute tubular necrosis) ICD Codes: N17.0 - Acute kidney failure with tubular necrosis SNOMED: 23905900 (4) CHF (congestive heart failure) ICD Codes: I50.9 - Heart failure, unspecified SNOMED: 53654020 Qualifiers: Qualified Codes: I50.9 - Heart failure, unspecified (5) Encephalopathy acute ICD Codes: G93.40 - Encephalopathy, unspecified SNOMED: 0107983 (6) UTI (urinary tract infection) ICD Codes: N39.0 - Urinary tract infection, site not specified SNOMED: 26638822 Qualifiers: Qualified Codes: N30.00 - Acute cystitis without hematuria Status: stable Assessment/Plan: lasix monitor volume status. difficult to manage with renal insuff glycopyrrolate for secretion control resp rx suctioning gt feeds- watch residuals reglan gi eval follow up bowel regime iv abx per id follow up cultures hold dc planning planning Subjective ROS Limited/Unobtainable: No Constitutional: Reports: malaise, weakness HEENT: Reports: no symptoms Cardiovascular: Reports: no symptoms Respiratory: Reports: cough, shortness of breath Gastrointestinal/Abdominal: Reports: difficulty swallowing Genitourinary: Reports: no symptoms Neurologic/Psychiatric: Reports: pre-existing deficit, seizure Endocrine: Reports: no symptoms Hematologic/Lymphatic: Reports: anemia Allergies: Coded Allergies: No Known Allergies (Verified , 12/31/09) All Systems: reviewed and negative except above Subjective remains congested. per staff worsening secretions. tolerating gt feeds. no residuals needs frequent deep suctioning. cxr yesterday with improving chf Objective Last 24 Hour Vital Signs Date Time Temp Pulse Resp B/P (MAP) Pulse Ox O2 Delivery O2 Flow Rate FiO2 06/18/19 08:35 97.2 79 18 123/70 (87) 100 06/18/19 07:28 87 24 98 Nasal Cannula 2.0 28 80 22 95 06/18/19 07:27 95 Nasal Cannula 2.0 28 06/18/19 06:00 104/52 06/18/19 04:00 98.2 78 16 96/45 (62) 95 06/18/19 01:16 79 20 99 Nasal Cannula 2.0 28 81 20 98 06/18/19 00:00 98.1 83 18 123/54 (77) 06/17/19 21:40 125/76 06/17/19 21:00 Nasal Cannula 2.0 06/17/19 20:00 98.7 76 18 120/57 (78) 98 06/17/19 19:31 77 20 100 Nasal Cannula 2.0 28 73 20 99 06/17/19 19:29 99 Nasal Cannula 2.0 28 06/17/19 16:00 97.9 76 18 121/69 (86) 98 06/17/19 13:24 116/62 06/17/19 12:41 79 20 100 Nasal Cannula 2.0 28 72 20 98 06/17/19 12:00 98.4 79 18 116/62 (80) 98 06/17/19 09:00 Nasal Cannula 2.0 Intake and Output 06/17/19 06/18/19 19:00 07:00 Intake Total 605 ml Output Total 1850 ml Balance -1245 ml Free Water 200 ml Tube Feeding 405 ml Output Urine Total 1850 ml # Bowel Movements 1 Height (Feet): 5 Height (Inches): 5.00 Weight (Pounds): 154 Objective General Appearance: WD/WN, alert Neck: supple Cardiovascular: normal rate, regular rhythm Respiratory/Chest: chest wall non-tender, no respiratory distress, no accessory muscle use, rhonchi - bilaterally Abdomen: normal bowel sounds, non tender, soft, no organomegaly Edema: no edema noted Arm (L), no edema noted Arm (R), no edema noted Leg (L), no edema noted Leg (R), no edema noted Pedal (L), no edema noted Pedal (R), no edema noted Generalized Jeffrey Crowder MD Jun 18, 2019 08:38
--- NOTE | 2019-06-18 09:36 | Pulmonology Progress Note ---
Assessment/Plan Assessment/Plan Impression: Congestive heart failure Possible pneumonia Urinary tract infection Encephalopathy, Dementia HO Seizures Anemia Acute renal failure Diabetes Hypertension Previous CVA Cerebral Palsy HO right femur fracture Debility Pleural effusions Plan no significant effusions to tap on decub cultures reviewed imaging reviewed- repeat suction if needed consider CPT monitor fluid status O2 as needed neb therapy maintain meds for change hope to see further improvement but not ready for dc DVT prophylaxis cards follow up and recommendations impression, plan, and exam edited and reviewed in detail care discussed with RN Subjective ROS Limited/Unobtainable: Yes Allergies: Coded Allergies: No Known Allergies (Verified , 12/31/09) Subjective overall care reviewed and discussed increase congestion Objective Last 24 Hour Vital Signs Date Time Temp Pulse Resp B/P (MAP) Pulse Ox O2 Delivery O2 Flow Rate FiO2 06/18/19 09:00 Nasal Cannula 2.0 06/18/19 08:35 97.2 79 18 123/70 (87) 100 06/18/19 07:28 87 24 98 Nasal Cannula 2.0 28 80 22 95 06/18/19 07:27 95 Nasal Cannula 2.0 28 06/18/19 06:00 104/52 06/18/19 04:00 98.2 78 16 96/45 (62) 95 06/18/19 01:16 79 20 99 Nasal Cannula 2.0 28 81 20 98 06/18/19 00:00 98.1 83 18 123/54 (77) 06/17/19 21:40 125/76 06/17/19 21:00 Nasal Cannula 2.0 06/17/19 20:00 98.7 76 18 120/57 (78) 98 06/17/19 19:31 77 20 100 Nasal Cannula 2.0 28 73 20 99 06/17/19 19:29 99 Nasal Cannula 2.0 28 06/17/19 16:00 97.9 76 18 121/69 (86) 98 06/17/19 13:24 116/62 06/17/19 12:41 79 20 100 Nasal Cannula 2.0 28 72 20 98 06/17/19 12:00 98.4 79 18 116/62 (80) 98 Intake and Output 06/17/19 06/18/19 18:59 06:59 Intake Total 45 ml 605 ml Output Total 1200 ml Balance 45 ml -595 ml Free Water 200 ml Tube Feeding 45 ml 405 ml Output Urine Total 1200 ml # Bowel Movements 1 1 Objective WDWN NAD on oxygen reduced breath sounds bilaterally with persistent rhonchi and coarse breath sounds [id number] without MRG NABS nontender no HSM no CC + edema confused nonfocal Current Medications Medications (Trade) Dose Ordered Sig/Aaron Route PRN Reason Start Time Stop Time Status Last Admin Dose Admin Acetaminophen (Tylenol) 650 mg Q4H PRN GT Mild Pain/Temp > 100.5 06/14/19 18:00 07/10/19 17:59 Albuterol/ Ipratropium (Albuterol/ Ipratropium) 3 ml Q6HRT HHN 06/15/19 01:45 06/20/19 01:44 06/18/19 07:26 Dextrose (Dextrose 50%) 25 ml Q30M PRN IV Hypoglycemia 06/14/19 17:45 07/10/19 00:44 Dextrose (Dextrose 50%) 50 ml Q30M PRN IV Hypoglycemia 06/14/19 17:45 07/10/19 00:44 Fluconazole (Diflucan) 100 mg DAILY GT 06/15/19 09:00 06/19/19 10:44 06/18/19 08:09 Gabapentin (Neurontin) 100 mg Q12HR GT 06/14/19 21:00 07/14/19 20:59 06/18/19 08:09 Guaifenesin (Robitussin) 100 mg Q6H PRN GT For Cough 06/14/19 18:00 07/11/19 17:59 Heparin Sodium (Porcine) (Heparin 5000 units/ml) 5,000 units EVERY 12 HOURS SUBQ 06/14/19 21:00 07/10/19 20:59 06/15/19 22:24 Insulin Aspart (NovoLOG) BEFORE MEALS AND HS SUBQ 06/14/19 21:00 07/10/19 06:29 06/18/19 06:16 Levetiracetam (Keppra) 1,000 mg Q12HR GT 06/14/19 21:00 07/11/19 08:59 06/18/19 08:09 Levofloxacin (Levaquin) 750 mg EVERY OTHER DAY GT 06/17/19 09:00 06/24/19 08:59 06/17/19 08:34 Levothyroxine Sodium (Synthroid) 50 mcg ACBREAKFAST GT 06/15/19 06:30 07/12/19 06:29 06/18/19 06:03 Metoclopramide HCl (Reglan) 10 mg EVERY 8 HOURS NG 06/16/19 06:00 06/26/19 06:00 06/18/19 06:03 Torey Douglass MD Jun 18, 2019 09:36
--- NOTE | 2019-06-18 11:14 | Infectious Diseases Prog Note ---
Assessment/Plan Assessment/Plan antibiotics : levoquin, fluconazole A 1. pseudomonas pneumonia 2. fungal UTI 3. diabetes mellitus 4. hypertension 5. 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 continue levoquin 5 more days 2. d/c fluconazole 3. will follow up cultures Subjective ROS Limited/Unobtainable: Yes Allergies: Coded Allergies: No Known Allergies (Verified , 12/31/09) Objective Vital Signs Last 24 Hour Vital Signs Date Time Temp Pulse Resp B/P (MAP) Pulse Ox O2 Delivery O2 Flow Rate FiO2 06/18/19 09:00 Nasal Cannula 2.0 06/18/19 08:35 97.2 79 18 123/70 (87) 100 06/18/19 07:28 87 24 98 Nasal Cannula 2.0 28 80 22 95 06/18/19 07:27 95 Nasal Cannula 2.0 28 06/18/19 06:00 104/52 06/18/19 04:00 98.2 78 16 96/45 (62) 95 06/18/19 01:16 79 20 99 Nasal Cannula 2.0 28 81 20 98 06/18/19 00:00 98.1 83 18 123/54 (77) 06/17/19 21:40 125/76 06/17/19 21:00 Nasal Cannula 2.0 06/17/19 20:00 98.7 76 18 120/57 (78) 98 06/17/19 19:31 77 20 100 Nasal Cannula 2.0 28 73 20 99 06/17/19 19:29 99 Nasal Cannula 2.0 28 06/17/19 16:00 97.9 76 18 121/69 (86) 98 06/17/19 13:24 116/62 06/17/19 12:41 79 20 100 Nasal Cannula 2.0 28 72 20 98 06/17/19 12:00 98.4 79 18 116/62 (80) 98 Height (Feet): 5 Height (Inches): 5.00 Weight (Pounds): 154 Respiratory/Chest: lungs clear Cardiovascular: normal rate, regular rhythm, no gallop/murmur Abdomen: soft, non tender, other - GT Extremities: no edema Current Medications Medications (Trade) Dose Ordered Sig/Aaron Route PRN Reason Start Time Stop Time Status Last Admin Dose Admin Acetaminophen (Tylenol) 650 mg Q4H PRN GT Mild Pain/Temp > 100.5 06/14/19 18:00 07/10/19 17:59 Albuterol/ Ipratropium (Albuterol/ Ipratropium) 3 ml Q6HRT HHN 06/15/19 01:45 06/20/19 01:44 06/18/19 07:26 Dextrose (Dextrose 50%) 25 ml Q30M PRN IV Hypoglycemia 06/14/19 17:45 07/10/19 00:44 Dextrose (Dextrose 50%) 50 ml Q30M PRN IV Hypoglycemia 06/14/19 17:45 07/10/19 00:44 Fluconazole (Diflucan) 100 mg DAILY GT 06/15/19 09:00 06/19/19 10:44 06/18/19 08:09 Gabapentin (Neurontin) 100 mg Q12HR GT 06/14/19 21:00 07/14/19 20:59 06/18/19 08:09 Guaifenesin (Robitussin) 100 mg Q6H PRN GT For Cough 06/14/19 18:00 07/11/19 17:59 Heparin Sodium (Porcine) (Heparin 5000 units/ml) 5,000 units EVERY 12 HOURS SUBQ 06/14/19 21:00 07/10/19 20:59 06/15/19 22:24 Insulin Aspart (NovoLOG) BEFORE MEALS AND HS SUBQ 06/14/19 21:00 07/10/19 06:29 06/18/19 06:16 Levetiracetam (Keppra) 1,000 mg Q12HR GT 06/14/19 21:00 07/11/19 08:59 06/18/19 08:09 Levofloxacin (Levaquin) 750 mg EVERY OTHER DAY GT 06/17/19 09:00 06/24/19 08:59 06/17/19 08:34 Levothyroxine Sodium (Synthroid) 50 mcg ACBREAKFAST GT 06/15/19 06:30 07/12/19 06:29 06/18/19 06:03 Metoclopramide HCl (Reglan) 10 mg EVERY 8 HOURS NG 06/16/19 06:00 06/26/19 06:00 06/18/19 06:03 Tyrel Prieto MD Jun 18, 2019 11:14
[2019-06-18 12:00] VITALS: BP 112/75
--- NOTE | 2019-06-18 12:39 | NUR ---
NURSE NOTES: Wound care provided, patient tolerated well.
[2019-06-18] MEDS: Metoclopramide 10mg/10ml Liq GT SCH ×2 (14:39→21:31)
--- NOTE | 2019-06-18 15:13 | NUR ---
CASE MANAGEMENT:REVIEW 06/18/2019 SI: ACUTE RENAL FAILURE. DEHYDRATION AC/CHR CHF. PNA T 98.1 HR 69 RR 20 B/P 112/75 SATS 100% ON 2L/NC CL 110 BUN 35 CR 1.8 GLU 229 ALP 124 IS: IVF@75 mL/HR LEVAQUIN GT QOD REGLAN GT Q8HRS DIFLUCAN GT QD NEURONTIN GT BID KEPPRA GT Q12 HEPARIN SQ Q12 DUONEB HHN Q6HRS RTC HYDRALAZINE GT Q8HRS : MED/SURG STATUS DCP: FROM [facility]
[2019-06-18 16:00] VITALS: BP 121/72
[2019-06-18] MEDS ORDERED: Tubing IV Secondary IV ONE (17:01)
--- NOTE | 2019-06-18 19:20 | NUR ---
HAND-OFF: Report given to FELY Raygoza.
--- NOTE | 2019-06-18 19:42 | NUR ---
NURSE NOTES: Received report from FELY Navarro. Patient asleep. Breathing unlabored on 2L O2 via nasal cannula. G-tube in placed running feeding as ordered, no residual at this time. Midline noted on right upper arm single lumen intact. Barron intact draining urine. Bed placed at the lowest with alarm, brake, and siderails up for safety. Call light placed within reach. Will continue to monitor and provide care as ordered.
[2019-06-18 20:00] VITALS: BP 106/55
[2019-06-18] MEDS: Dyna-Hex 2% Top Sol 2oz TOPIC SCH (23:22)
[2019-06-19] VITALS: BP 100/56
[2019-06-19] MEDS: Albuterol/Ipratropium 3ml neb HHN SCH ×4 (01:44→20:14)
[2019-06-19 04:00] VITALS: BP 125/65
[2019-06-19] MEDS: Metoclopramide 10mg/10ml Liq GT SCH ×3 (05:58→21:27)
--- NOTE | 2019-06-19 06:17 | General Progress Note ---
Assessment/Plan Status: stable Assessment/Plan: Assessment - TF intolerance, likely due to underlying DM gastroparesis - hyponatremia, resolved - OBS - dysphagia - mild elevation in alk phos Recommendations - short term Reglan trial - 2 weeks - Elevate HOB - Check abd ultrasound - negative - follow LFT Subjective ROS Limited/Unobtainable: Yes Allergies: Coded Allergies: No Known Allergies (Verified , 12/31/09) Objective Last 24 Hour Vital Signs Date Time Temp Pulse Resp B/P (MAP) Pulse Ox O2 Delivery O2 Flow Rate FiO2 06/19/19 04:00 97.7 78 20 125/65 (85) 98 06/19/19 01:44 74 18 99 Nasal Cannula 2.0 28 81 16 97 06/19/19 00:00 97.9 81 20 100/56 (71) 96 06/18/19 21:00 Nasal Cannula 2.0 06/18/19 20:23 72 20 100 Nasal Cannula 2.0 28 72 15 95 06/18/19 20:23 95 Nasal Cannula 2.0 28 06/18/19 20:00 97.9 75 20 106/55 (72) 99 06/18/19 16:00 97.5 80 18 121/72 (88) 99 06/18/19 13:28 81 22 99 Nasal Cannula 2.0 28 78 20 96 06/18/19 12:00 98.1 69 20 112/75 (87) 100 06/18/19 09:00 Nasal Cannula 2.0 06/18/19 08:35 97.2 79 18 123/70 (87) 100 06/18/19 07:28 87 24 98 Nasal Cannula 2.0 28 80 22 95 06/18/19 07:27 95 Nasal Cannula 2.0 28 Intake and Output 06/18/19 06/19/19 19:00 07:00 Intake Total 990 ml 660 ml Balance 990 ml 660 ml Free Water 450 ml 300 ml Tube Feeding 540 ml 360 ml # Bowel Movements 1 Height (Feet): 5 Height (Inches): 5.00 Weight (Pounds): 154 General Appearance: alert EENT: normal ENT inspection Neck: supple Cardiovascular: normal rate Respiratory/Chest: decreased breath sounds Abdomen: normal bowel sounds, non tender, soft Extremities: non-tender Eder Sims MD Jun 19, 2019 06:17
[2019-06-19] MEDS: NovoLOG Insulin Flexpen SUBQ SCH ×4 (06:29→21:18)
--- NOTE | 2019-06-19 07:17 | NUR ---
NURSE NOTES: Lab results not available yet. Called Lab to confirm if lab draw will be done by the sack keeper. fork lift technician Raudel confirmed that sack keeper will draw the lab.
--- NOTE | 2019-06-19 07:30 | NUR ---
HAND-OFF: Report given to FELY Navarro.
--- NOTE | 2019-06-19 07:31 | NUR ---
NURSE NOTES: Patient awake, non-verbal; on Nasal cannula 2 Liter, no sing of distress and shortness of breath; no sing of chest pain; Glucernal1.2 running at 45cc, no residual; head of the bed elevated, side rails padded, breaks engaged, bed at lowest position; Barron in place, drains yellow urine; IV Right-Upper arm single Lumen, flushes well; will give suction as needed and will check blood sugar as scheduled. will keep monitoring.
[2019-06-19 08:00] VITALS: BP 125/68
--- NOTE | 2019-06-19 08:27 | Pulmonology Progress Note ---
Assessment/Plan Assessment/Plan Impression: Congestive heart failure Possible pneumonia Urinary tract infection Encephalopathy, Dementia HO Seizures Anemia Acute renal failure Diabetes Hypertension Previous CVA Cerebral Palsy HO right femur fracture Debility Pleural effusions Plan monitor fluid status cultures reviewed imaging reviewed- repeat suction if needed mobilize secretions monitor fluid status O2 as needed neb therapy maintain meds for change continue same DVT prophylaxis cards follow up and recommendations impression, plan, and exam edited and reviewed in detail care discussed with RN Subjective Allergies: Coded Allergies: No Known Allergies (Verified , 12/31/09) Subjective overall care reviewed and discussed + congestion Objective Last 24 Hour Vital Signs Date Time Temp Pulse Resp B/P (MAP) Pulse Ox O2 Delivery O2 Flow Rate FiO2 06/19/19 08:09 77 20 99 Nasal Cannula 2.0 28 76 20 96 06/19/19 07:59 96 Nasal Cannula 2.0 28 06/19/19 04:00 97.7 78 20 125/65 (85) 98 06/19/19 01:44 74 18 99 Nasal Cannula 2.0 28 81 16 97 06/19/19 00:00 97.9 81 20 100/56 (71) 96 06/18/19 21:00 Nasal Cannula 2.0 06/18/19 20:23 72 20 100 Nasal Cannula 2.0 28 72 15 95 06/18/19 20:23 95 Nasal Cannula 2.0 28 06/18/19 20:00 97.9 75 20 106/55 (72) 99 06/18/19 16:00 97.5 80 18 121/72 (88) 99 06/18/19 13:28 81 22 99 Nasal Cannula 2.0 28 78 20 96 06/18/19 12:00 98.1 69 20 112/75 (87) 100 06/18/19 09:00 Nasal Cannula 2.0 06/18/19 08:35 97.2 79 18 123/70 (87) 100 Intake and Output 06/18/19 06/19/19 19:00 07:00 Intake Total 990 ml 900 ml Balance 990 ml 900 ml Free Water 450 ml 450 ml Tube Feeding 540 ml 450 ml # Bowel Movements 1 2 Objective WDWN NAD on oxygen reduced breath sounds bilaterally with persistent rhonchi and coarse breath sounds [id number] without MRG NABS nontender no HSM no CC + edema confused nonfocal Current Medications Medications (Trade) Dose Ordered Sig/Aaron Route PRN Reason Start Time Stop Time Status Last Admin Dose Admin Acetaminophen (Tylenol) 650 mg Q4H PRN GT Mild Pain/Temp > 100.5 06/14/19 18:00 07/10/19 17:59 Albuterol/ Ipratropium (Albuterol/ Ipratropium) 3 ml Q6HRT HHN 06/15/19 01:45 06/20/19 01:44 06/19/19 07:59 Chlorhexidine Gluconate (Arabella-Hex 2%) 1 applic DAILY@1999 TOPIC 06/18/19 22:45 07/18/19 22:44 06/18/19 23:22 Dextrose (Dextrose 50%) 25 ml Q30M PRN IV Hypoglycemia 06/14/19 17:45 07/10/19 00:44 Dextrose (Dextrose 50%) 50 ml Q30M PRN IV Hypoglycemia 06/14/19 17:45 07/10/19 00:44 Gabapentin (Neurontin) 100 mg Q12HR GT 06/14/19 21:00 07/14/19 20:59 06/18/19 21:22 Guaifenesin (Robitussin) 100 mg Q6H PRN GT For Cough 06/14/19 18:00 07/11/19 17:59 Heparin Sodium (Porcine) (Heparin 5000 units/ml) 5,000 units EVERY 12 HOURS SUBQ 06/14/19 21:00 07/10/19 20:59 06/15/19 22:24 Insulin Aspart (NovoLOG) BEFORE MEALS AND HS SUBQ 06/14/19 21:00 07/10/19 06:29 06/19/19 06:29 Levetiracetam (Keppra) 1,000 mg Q12HR GT 06/14/19 21:00 07/11/19 08:59 06/18/19 21:22 Levofloxacin (Levaquin) 750 mg EVERY OTHER DAY GT 06/17/19 09:00 06/24/19 08:59 06/17/19 08:34 Levothyroxine Sodium (Synthroid) 50 mcg ACBREAKFAST GT 06/15/19 06:30 07/12/19 06:29 06/19/19 06:23 Metoclopramide HCl (Reglan) 10 mg EVERY 8 HOURS GT 06/18/19 15:00 07/18/19 14:59 06/19/19 05:58 Torey Douglass MD Jun 19, 2019 08:27
[2019-06-19] MEDS: Gabapentin 300 MG/6 ML Soln GT SCH ×2 (08:58→21:15)
[2019-06-19] MEDS: Heparin 5000 units/ml inj SUBQ SCH ×2 (08:59→21:17)
[2019-06-19] MEDS: Levofloxacin 750mg tab GT SCH (08:59)
[2019-06-19 09:42] LABS: BASOPHILS % (AUTO) 0.6 % (0.0-2.0); EOSINOPHILS % (AUTO) 4.4 % (0.0-3.0); HEMATOCRIT 29.6 % (37.0-47.0); HEMOGLOBIN 9.2 G/DL (12.0-16.0); LYMPHOCYTES % (AUTO) 19.3 % (20.0-45.0); MEAN CORPUSCULAR VOLUME 87 FL (80-99); NEUTROPHILS % (AUTO) 70.6 % (45.0-75.0); PLATELET COUNT 290 K/UL (150-450); RED BLOOD COUNT 3.42 M/UL (4.20-5.40); RED CELL DISTRIBUTION WIDTH 17.1 % (11.6-14.8); WHITE BLOOD COUNT 9.5 K/UL (4.8-10.8)
--- NOTE | 2019-06-19 09:50 | Diagnostic Imaging Report ---
EXAM: XR Chest, 1 View CLINICAL HISTORY: Shortness of breath TECHNIQUE: Frontal view of the chest. COMPARISON: No relevant prior studies available. FINDINGS: Lungs: No significant change in the prominent reticular interstitial markings. Subsegmental atelectasis versus infiltrate in the left lung base. Pleural space: Possible small left pleural effusion. Heart: Unremarkable. No cardiomegaly. Mediastinum: Unremarkable. Bones joints: Anterior dislocation of the right shoulder. Vasculature: Atherosclerotic calcifications are noted within the aortic arch. IMPRESSION: 1. No significant change in the prominent interstitial markings. This may represent pulmonary vascular congestion, interstitial edema, or interstitial pneumonitis. 2. Possible small left pleural effusion. 3. Subsegmental atelectasis versus infiltrate in the left lung base. 4. Anterior dislocation of the right shoulder.
[2019-06-19 10:08] LABS: ALANINE AMINOTRANSFERASE 25 U/L (12-78); ALBUMIN 2.5 G/DL (3.4-5.0); ALBUMIN/GLOBULIN RATIO 0.5 (1.0-2.7); ALKALINE PHOSPHATASE 120 U/L (46-116); ANION GAP 5 mmol/L (5-15); ASPARTATE AMINO TRANSFERASE 25 U/L (15-37); BILIRUBIN,TOTAL 0.4 MG/DL (0.2-1.0); BLOOD UREA NITROGEN 33 mg/dL (7-18); CALCIUM 9.2 MG/DL (8.5-10.1); CARBON DIOXIDE 26 MMOL/L (21-32); CHLORIDE 108 MMOL/L (98-107); CREATININE 1.9 MG/DL (0.55-1.30); POTASSIUM 5.5 MMOL/L (3.5-5.1); SODIUM 139 MMOL/L (136-145)
[2019-06-19 12:00] VITALS: BP 136/71
--- NOTE | 2019-06-19 12:02 | Infectious Diseases Prog Note ---
Assessment/Plan Assessment/Plan A 1. Pseudomonas pneumonia 2. fungal UTI treated 3. diabetes mellitus 4. hypertension 5. 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 continue Levaquin X 4 more days Subjective ROS Limited/Unobtainable: Yes Allergies: Coded Allergies: No Known Allergies (Verified , 12/31/09) Objective Vital Signs Last 24 Hour Vital Signs Date Time Temp Pulse Resp B/P (MAP) Pulse Ox O2 Delivery O2 Flow Rate FiO2 06/19/19 09:00 Nasal Cannula 2.0 06/19/19 08:09 77 20 99 Nasal Cannula 2.0 28 76 20 96 06/19/19 08:00 98.4 71 18 125/68 (87) 96 06/19/19 07:59 96 Nasal Cannula 2.0 28 06/19/19 04:00 97.7 78 20 125/65 (85) 98 06/19/19 01:44 74 18 99 Nasal Cannula 2.0 28 81 16 97 06/19/19 00:00 97.9 81 20 100/56 (71) 96 06/18/19 21:00 Nasal Cannula 2.0 06/18/19 20:23 72 20 100 Nasal Cannula 2.0 28 72 15 95 06/18/19 20:23 95 Nasal Cannula 2.0 28 06/18/19 20:00 97.9 75 20 106/55 (72) 99 06/18/19 16:00 97.5 80 18 121/72 (88) 99 06/18/19 13:28 81 22 99 Nasal Cannula 2.0 28 78 20 96 Height (Feet): 5 Height (Inches): 5.00 Weight (Pounds): 154 General Appearance: no acute distress HEENT: mucous membranes moist Respiratory/Chest: lungs clear Cardiovascular: normal rate, other - R arm PICC line Abdomen: soft, non tender, other - GT feeding Extremities: no edema Neurologic/Psychiatric: other - sleeping Laboratory Tests Test 06/19/19 08:05 White Blood Count 9.5 K/UL (4.8-10.8) Red Blood Count 3.42 M/UL (4.20-5.40) L Hemoglobin 9.2 G/DL (12.0-16.0) L Hematocrit 29.6 % (37.0-47.0) L Mean Corpuscular Volume 87 FL (80-99) Mean Corpuscular Hemoglobin 26.9 PG (27.0-31.0) L Mean Corpuscular Hemoglobin Concent 31.0 G/DL (32.0-36.0) L Red Cell Distribution Width 17.1 % (11.6-14.8) H Platelet Count 290 K/UL (150-450) Mean Platelet Volume 5.5 FL (6.5-10.1) L Neutrophils (%) (Auto) 70.6 % (45.0-75.0) Lymphocytes (%) (Auto) 19.3 % (20.0-45.0) L Monocytes (%) (Auto) 5.0 % (1.0-10.0) Eosinophils (%) (Auto) 4.4 % (0.0-3.0) H Basophils (%) (Auto) 0.6 % (0.0-2.0) Sodium Level 139 MMOL/L (136-145) Potassium Level 5.5 MMOL/L (3.5-5.1) H Chloride Level 108 MMOL/L (98-107) H Carbon Dioxide Level 26 MMOL/L (21-32) Anion Gap 5 mmol/L (5-15) Blood Urea Nitrogen 33 mg/dL (7-18) H Creatinine 1.9 MG/DL (0.55-1.30) H Estimat Glomerular Filtration Rate mL/min (>60) Glucose Level 165 MG/DL (74-106) H Calcium Level 9.2 MG/DL (8.5-10.1) Total Bilirubin 0.4 MG/DL (0.2-1.0) Aspartate Amino Transf (AST/SGOT) 25 U/L (15-37) Alanine Aminotransferase (ALT/SGPT) 25 U/L (12-78) Alkaline Phosphatase 120 U/L (46-116) H Total Protein 7.2 G/DL (6.4-8.2) Albumin 2.5 G/DL (3.4-5.0) L Globulin 4.7 g/dL Albumin/Globulin Ratio 0.5 (1.0-2.7) L Current Medications Medications (Trade) Dose Ordered Sig/Aaron Route PRN Reason Start Time Stop Time Status Last Admin Dose Admin Acetaminophen (Tylenol) 650 mg Q4H PRN GT Mild Pain/Temp > 100.5 06/14/19 18:00 07/10/19 17:59 Albuterol/ Ipratropium (Albuterol/ Ipratropium) 3 ml Q6HRT HHN 06/15/19 01:45 06/20/19 01:44 06/19/19 07:59 Chlorhexidine Gluconate (Arabella-Hex 2%) 1 applic DAILY@2000 TOPIC 06/18/19 22:45 07/18/19 22:44 06/18/19 23:22 Dextrose (Dextrose 50%) 25 ml Q30M PRN IV Hypoglycemia 06/14/19 17:45 07/10/19 00:44 Dextrose (Dextrose 50%) 50 ml Q30M PRN IV Hypoglycemia 06/14/19 17:45 07/10/19 00:44 Gabapentin (Neurontin) 100 mg Q12HR GT 06/14/19 21:00 07/14/19 20:59 06/19/19 08:58 Guaifenesin (Robitussin) 100 mg Q6H PRN GT For Cough 06/14/19 18:00 07/11/19 17:59 Heparin Sodium (Porcine) (Heparin 5000 units/ml) 5,000 units EVERY 12 HOURS SUBQ 06/14/19 21:00 07/10/19 20:59 06/15/19 22:24 Insulin Aspart (NovoLOG) BEFORE MEALS AND HS SUBQ 06/14/19 21:00 07/10/19 06:29 06/19/19 06:29 Levetiracetam (Keppra) 1,000 mg Q12HR GT 06/14/19 21:00 07/11/19 08:59 06/19/19 08:59 Levofloxacin (Levaquin) 750 mg EVERY OTHER DAY GT 06/17/19 09:00 06/24/19 08:59 06/19/19 08:59 Levothyroxine Sodium (Synthroid) 50 mcg ACBREAKFAST GT 06/15/19 06:30 07/12/19 06:29 06/19/19 06:23 Metoclopramide HCl (Reglan) 10 mg EVERY 8 HOURS GT 06/18/19 15:00 07/18/19 14:59 06/19/19 05:58 Bay Richter MD Jun 19, 2019 12:02
--- NOTE | 2019-06-19 12:23 | General Progress Note ---
Assessment/Plan Problem List: (1) HTN (hypertension) ICD Codes: I10 - Essential (primary) hypertension SNOMED: 12049409 (2) Pneumonia ICD Codes: J18.9 - Pneumonia, unspecified organism SNOMED: 873438254 (3) ATN (acute tubular necrosis) ICD Codes: N17.0 - Acute kidney failure with tubular necrosis SNOMED: 37723690 (4) CHF (congestive heart failure) ICD Codes: I50.9 - Heart failure, unspecified SNOMED: 72796479 Qualifiers: Qualified Codes: I50.9 - Heart failure, unspecified (5) Encephalopathy acute ICD Codes: G93.40 - Encephalopathy, unspecified SNOMED: 1136135 (6) UTI (urinary tract infection) ICD Codes: N39.0 - Urinary tract infection, site not specified SNOMED: 08909948 Qualifiers: Qualified Codes: N30.00 - Acute cystitis without hematuria Status: stable Assessment/Plan: lasix monitor volume status. difficult to manage with renal insuff glycopyrrolate for secretion control resp rx suctioning gt feeds- watch residuals reglan bowel regime iv abx per id follow up cultures kayexylate x 1 dc planning tomorrow if continued improvement Subjective ROS Limited/Unobtainable: Yes Constitutional: Reports: malaise, weakness HEENT: Reports: no symptoms Cardiovascular: Reports: edema Respiratory: Reports: cough, sputum Gastrointestinal/Abdominal: Reports: difficulty swallowing Genitourinary: Reports: no symptoms Neurologic/Psychiatric: Reports: pre-existing deficit, seizure Endocrine: Reports: no symptoms Hematologic/Lymphatic: Reports: anemia Allergies: Coded Allergies: No Known Allergies (Verified , 12/31/09) All Systems: reviewed and negative except above Subjective no events. w/o complaints. no fever or chills. per staff less congested. requiring less suctioning. Objective Last 24 Hour Vital Signs Date Time Temp Pulse Resp B/P (MAP) Pulse Ox O2 Delivery O2 Flow Rate FiO2 06/19/19 09:00 Nasal Cannula 2.0 06/19/19 08:09 77 20 99 Nasal Cannula 2.0 28 76 20 96 06/19/19 08:00 98.4 71 18 125/68 (87) 96 06/19/19 07:59 96 Nasal Cannula 2.0 28 06/19/19 04:00 97.7 78 20 125/65 (85) 98 06/19/19 01:44 74 18 99 Nasal Cannula 2.0 28 81 16 97 06/19/19 00:00 97.9 81 20 100/56 (71) 96 06/18/19 21:00 Nasal Cannula 2.0 06/18/19 20:23 72 20 100 Nasal Cannula 2.0 28 72 15 95 06/18/19 20:23 95 Nasal Cannula 2.0 28 06/18/19 20:00 97.9 75 20 106/55 (72) 99 06/18/19 16:00 97.5 80 18 121/72 (88) 99 06/18/19 13:28 81 22 99 Nasal Cannula 2.0 28 78 20 96 Intake and Output 06/18/19 06/19/19 19:00 07:00 Intake Total 990 ml 900 ml Balance 990 ml 900 ml Free Water 450 ml 450 ml Tube Feeding 540 ml 450 ml # Bowel Movements 1 2 Laboratory Tests 06/19/19 08:05: White Blood Count 9.5, Red Blood Count 3.42L, Hemoglobin 9.2L, Hematocrit 29.6L , Mean Corpuscular Volume 87, Mean Corpuscular Hemoglobin 26.9L, Mean Corpuscular Hemoglobin Concent 31.0L, Red Cell Distribution Width 17.1H, Platelet Count 290, Mean Platelet Volume 5.5L, Neutrophils (%) (Auto) 70.6, Lymphocytes (%) (Auto) 19.3L, Monocytes (%) (Auto) 5.0, Eosinophils (%) (Auto) 4.4H, Basophils (%) (Auto) 0.6, Sodium Level 139, Potassium Level 5.5H, Chloride Level 108H, Carbon Dioxide Level 26, Anion Gap 5, Blood Urea Nitrogen 33H, Creatinine 1.9H, Estimat Glomerular Filtration Rate , Glucose Level 165H, Calcium Level 9.2, Total Bilirubin 0.4, Aspartate Amino Transf (AST/SGOT) 25, Alanine Aminotransferase (ALT/SGPT) 25, Alkaline Phosphatase 120H, Total Protein 7.2, Albumin 2.5L, Globulin 4.7, Albumin/Globulin Ratio 0.5L Height (Feet): 5 Height (Inches): 5.00 Weight (Pounds): 154 Objective General Appearance: WD/WN, alert Neck: supple Cardiovascular: normal rate, regular rhythm Respiratory/Chest: chest wall non-tender, no respiratory distress, no accessory muscle use, rhonchi - bilaterally Abdomen: normal bowel sounds, non tender, soft, no organomegaly Edema: no edema noted Arm (L), no edema noted Arm (R), no edema noted Leg (L), no edema noted Leg (R), no edema noted Pedal (L), no edema noted Pedal (R), no edema noted Generalized Jeffrey Crowder MD Jun 19, 2019 12:23
[2019-06-19] MEDS ORDERED: Sodium Polystyrene Sulfonate 15gm Powder GT SCH (12:30)
[2019-06-19] MEDS ORDERED: Sodium Polystyrene Sulfonate 15gm Powder ORAL SCH (12:30)
--- NOTE | 2019-06-19 12:35 | NUR ---
CASE MANAGEMENT:REVIEW 06/19/2019 SI: ACUTE RENAL FAILURE. DEHYDRATION AC/CHR CHF. PNA T 97.7 HR 78 RR 20 B/P 125/65 SATS 98% ON 2L/NC K 5.5 CL 108 BUN 33 CR 1.9 GLU 165 ALP 120 IS: IVF@75 mL/HR LEVAQUIN GT QOD REGLAN GT Q8HRS DIFLUCAN GT QD NEURONTIN GT BID KEPPRA GT Q12 HEPARIN SQ Q12 DUONEB HHN Q6HRS RTC HYDRALAZINE GT Q8HRS : MED/SURG STATUS [facility]
[2019-06-19 16:00] VITALS: BP 131/76
--- NOTE | 2019-06-19 17:37 | NUR ---
HAND-OFF: Report given to FELY Luong.
--- NOTE | 2019-06-19 17:40 | NUR ---
NURSE NOTES: received report from Mare. patient A/A/Ox1, moans, and groans. nonverbal. repositioned. changed GT drsg. dry and intact. tube feeding tolerating well. no gastric residual. kept HOB elevated for aspiration precaution. On O2 2L via NC. breath sounds clear and not coughing @ this time. (midline) central line intact. no d/t/and initial noted. perera cath inplaced and draining well with clear yellow urine. siderails are up x3. bed locked and alarm activated. will cont tto monitor.
--- NOTE | 2019-06-19 18:52 | NUR ---
NURSE NOTES: able to suctioned orally. patient tends to accumulate sputum in her mouth. no acute resp distress noted. kept hob 30 degrees. will cont to monitor.
--- NOTE | 2019-06-19 19:25 | NUR ---
HAND-OFF: Report given to Razia.
--- NOTE | 2019-06-19 19:30 | NUR ---
NURSE NOTES: Received report from MARQUES Luong. Patient asleep. Breathing unlabored on 2L O2 via NC. No s/s of pain noted at this time. Right upper arm midline noted intact and patent. Gtube intact and patent running feeding as ordered without residual at this time. Barron intact and secured draining urine. Bed placed at the lowest with alarm, brake, and siderails up for patient safety. Call light placed within reach. Will continue to monitor and provide care as ordered.
[2019-06-19 20:00] VITALS: BP 121/60
[2019-06-19] MEDS: Dyna-Hex 2% Top Sol 2oz TOPIC SCH (21:15)
--- NOTE | 2019-06-19 22:45 | Progress Note ---
DATE: 06/17/2019 CARDIOLOGY PROGRESS NOTE This is a late entry. SUBJECTIVE: The patient continues to have congestion with increased secretions noted by staff. Frequent suctioning required. G-tube feedings are noted to be without residual. The monitored rhythm sinus with sinus arrhythmia and atrial ectopics. OBJECTIVE: VITAL SIGNS: Blood pressure 116/62, pulse 79, respiratory rate 18, and afebrile. HEENT: Temporal wasting, withdrawn. LUNGS: Bilateral breath sounds with rhonchi. HEART: Regular rhythm rate. Normal S1, S2 with a 1/6 systolic murmur at the base. ABDOMEN: Soft. G-tube intact. EXTREMITIES: No edema. Contractures noted. LABORATORY AND DIAGNOSTIC DATA: Sodium 141, potassium 5.1, bicarb 24, BUN 35, creatinine 1.8. Albumin 2.4. Glucose 229. IMPRESSION: 1. Aspiration. 2. Healthcare acquired pneumonia. 3. Dysphagia. 4. Moderate to severe protein-calorie malnutrition. 5. Acute on chronic diastolic congestive heart failure. 6. Acute on chronic renal failure. 7. Pseudomonas pneumonia. 8. Acute myocardial ischemia, resolved. 9. Hypertensive heart disease with adequate blood pressure control. PLAN: 1. Antimicrobials. 2. Respiratory hygiene. 3. Nutrition by feeding tube, no diuretics presently indicated, review chest x-ray. 4. Maintain current antihypertensives without change. Kavon Peña M.D. DR: Morris JOB#: [id number] CC:
--- NOTE | 2019-06-19 22:45 | Progress Note ---
DATE: 06/18/2019 CARDIOLOGY PROGRESS NOTE Late entry 06/18/2019 SUBJECTIVE: The patient has worsening secretions. No G-tube residuals. Still requires suctioning. Chest x-ray from yesterday reviewed. Improved congestive heart failure noted. PHYSICAL EXAMINATION: VITAL SIGNS: Blood pressure 104/52, pulse 80, respirations 22, afebrile. GENERAL: Withdrawn. LUNGS: Coarse breath sounds. Rhonchi. HEART: Regular rhythm and rate. Normal S1, S2 with a fourth heart sound. No change in murmur. Monitor sinus and sinus arrhythmia with occasional ectopics. ABDOMEN: Soft with G-tube. EXTREMITIES: No edema. LABORATORY DATA: No new laboratories today. IMPRESSION: 1. Pseudomonas pneumonia. 2. Aspiration with aspiration pneumonia. 3. Acute on chronic diastolic congestive heart failure. 4. Acute on chronic renal failure. 5. Acute myocardial ischemia, all improved. 6. Hypertensive heart disease, now with lower range blood pressure. PLAN: 1. Respiratory hygiene. 2. Antimicrobials. 3. No diuretic therapy at this time. 4. Monitor volume status. 5. Fluid challenge for further episodes of hypotension. 6. The patient is presently off all cardiac medications. Kavon Peña M.D. DR: ESTHELA JOB#: [id number] CC:
--- NOTE | 2019-06-19 23:30 | Progress Note ---
DATE: 06/19/2019 CARDIOLOGY PROGRESS NOTE SUBJECTIVE: Congestion has decreased today. The patient is still requiring suctioning, but less frequently. G-tube feedings as tolerated. There is no residuals. OBJECTIVE: VITAL SIGNS: Blood pressure 125/68, pulse 71, respirations 18, and afebrile. Oxygen saturation on 2 liters is 96%. Monitor reveals sinus rhythm with arrhythmia and occasional atrial ectopics. LUNGS: Coarse breath sounds. Few rhonchi. HEART: Regular rhythm and rate. Normal S1, S2. GASTROINTESTINAL: Abdomen is soft. G-tube site intact. EXTREMITIES: No edema. NEUROLOGIC: Positive contractures. LABORATORY DATA: White count 9.5, hemoglobin 9.2, and platelets 290,000. Sodium 139, potassium 5.5, bicarb 26, BUN 33, and creatinine 1.9. IMPRESSION: 1. Pseudomonas pneumonia. 2. Aspiration pneumonia. 3. Severe protein-calorie malnutrition. 4. Hyperkalemia. 5. Acute on chronic renal failure. 6. Acute on chronic diastolic congestive heart failure. 7. History of hypertension presently with low range blood pressure. Off therapy. PLAN: 1. Kayexalate x1. 2. No diuretic therapy presently. 3. Recheck laboratory studies. 4. Continue antimicrobials and respiratory hygiene. 5. Discharge planning. Kavon Peña M.D. DR: RICHY JOB#: [id number] CC:
[2019-06-20] VITALS: BP 104/51
[2019-06-20] MEDS: Albuterol/Ipratropium 3ml neb HHN SCH ×4 (01:10→19:18)
[2019-06-20 04:00] VITALS: BP 107/50
[2019-06-20] MEDS: Metoclopramide 10mg/10ml Liq GT SCH ×2 (05:08→15:27)
[2019-06-20] MEDS: NovoLOG Insulin Flexpen SUBQ SCH ×4 (06:29→21:19)
--- NOTE | 2019-06-20 06:50 | NUR ---
NURSE NOTES: Provided PRN oral suctioning as needed throughout the night. Patient tolerated the feeding well without residual. Held feeding at 0525 for synthroid scheduled at 0630. Patient had two bowel movements throughout the shift. Cleaned patient and changed sacral dressing.
[2019-06-20 07:00] LABS: BASOPHILS % (AUTO) 0.6 % (0.0-2.0); EOSINOPHILS % (AUTO) 3.5 % (0.0-3.0); HEMATOCRIT 28.5 % (37.0-47.0); HEMOGLOBIN 8.9 G/DL (12.0-16.0); LYMPHOCYTES % (AUTO) 21.4 % (20.0-45.0); MEAN CORPUSCULAR VOLUME 86 FL (80-99); MONOCYTES % (AUTO) 7.2 % (1.0-10.0); NEUTROPHILS % (AUTO) 67.3 % (45.0-75.0); PLATELET COUNT 333 K/UL (150-450); RED CELL DISTRIBUTION WIDTH 17.2 % (11.6-14.8); WHITE BLOOD COUNT 9.8 K/UL (4.8-10.8)
[2019-06-20 07:04] LABS: ANION GAP 8 mmol/L (5-15); BLOOD UREA NITROGEN 37 mg/dL (7-18); CALCIUM 9.1 MG/DL (8.5-10.1); CARBON DIOXIDE 24 MMOL/L (21-32); CHLORIDE 107 MMOL/L (98-107); CREATININE 2.2 MG/DL (0.55-1.30); POTASSIUM 5.3 MMOL/L (3.5-5.1); SODIUM 139 MMOL/L (136-145)
--- NOTE | 2019-06-20 07:42 | General Progress Note ---
Assessment/Plan Status: stable Assessment/Plan: Assessment - TF intolerance, likely due to underlying DM gastroparesis - hyponatremia, resolved - OBS - dysphagia - mild elevation in alk phos - GGT normal ---> bone origin Recommendations - short term Reglan trial - 2 weeks - Elevate HOB - Check PTH and vitamin D Subjective Allergies: Coded Allergies: No Known Allergies (Verified , 12/31/09) Subjective Above noted d/w staff home therapy rn tolerating TF (+) BM Objective Last 24 Hour Vital Signs Date Time Temp Pulse Resp B/P (MAP) Pulse Ox O2 Delivery O2 Flow Rate FiO2 06/20/19 04:00 98.2 91 20 107/50 (69) 97 06/20/19 01:10 75 18 98 Nasal Cannula 2.0 28 77 20 96 06/20/19 00:00 98.4 92 20 104/51 (68) 97 06/19/19 21:00 Nasal Cannula 2.0 06/19/19 20:16 95 Nasal Cannula 2.0 28 06/19/19 20:14 78 18 99 Nasal Cannula 2.0 28 74 20 95 06/19/19 20:00 98.2 78 20 121/60 (80) 97 06/19/19 16:00 98.5 72 19 131/76 (94) 98 06/19/19 12:51 79 19 99 Nasal Cannula 2.0 28 78 21 97 06/19/19 12:00 97.4 72 16 136/71 (92) 98 06/19/19 09:00 Nasal Cannula 2.0 06/19/19 08:09 77 20 99 Nasal Cannula 2.0 28 76 20 96 06/19/19 08:00 98.4 71 18 125/68 (87) 96 06/19/19 07:59 96 Nasal Cannula 2.0 28 Intake and Output 06/19/19 06/20/19 19:00 07:00 Intake Total 1020 ml 900 ml Output Total 1000 ml 1300 ml Balance 20 ml -400 ml Free Water 480 ml 450 ml Tube Feeding 540 ml 450 ml Output Urine Total 1000 ml 1300 ml # Bowel Movements 2 Laboratory Tests 06/19/19 08:05: White Blood Count 9.5, Red Blood Count 3.42L, Hemoglobin 9.2L, Hematocrit 29.6L , Mean Corpuscular Volume 87, Mean Corpuscular Hemoglobin 26.9L, Mean Corpuscular Hemoglobin Concent 31.0L, Red Cell Distribution Width 17.1H, Platelet Count 290, Mean Platelet Volume 5.5L, Neutrophils (%) (Auto) 70.6, Lymphocytes (%) (Auto) 19.3L, Monocytes (%) (Auto) 5.0, Eosinophils (%) (Auto) 4.4H, Basophils (%) (Auto) 0.6, Sodium Level 139, Potassium Level 5.5H, Chloride Level 108H, Carbon Dioxide Level 26, Anion Gap 5, Blood Urea Nitrogen 33H, Creatinine 1.9H, Estimat Glomerular Filtration Rate , Glucose Level 165H, Calcium Level 9.2, Total Bilirubin 0.4, Aspartate Amino Transf (AST/SGOT) 25, Alanine Aminotransferase (ALT/SGPT) 25, Alkaline Phosphatase 120H, Total Protein 7.2, Albumin 2.5L, Globulin 4.7, Albumin/Globulin Ratio 0.5L 06/20/19 05:55: White Blood Count 9.8, Red Blood Count 3.30L, Hemoglobin 8.9L, Hematocrit 28.5L , Mean Corpuscular Volume 86, Mean Corpuscular Hemoglobin 27.0, Mean Corpuscular Hemoglobin Concent 31.2L, Red Cell Distribution Width 17.2H, Platelet Count 333, Mean Platelet Volume 5.5L, Neutrophils (%) (Auto) 67.3, Lymphocytes (%) (Auto) 21.4, Monocytes (%) (Auto) 7.2, Eosinophils (%) (Auto) 3.5H, Basophils (%) (Auto) 0.6, Sodium Level 139, Potassium Level 5.3H, Chloride Level 107, Carbon Dioxide Level 24, Anion Gap 8, Blood Urea Nitrogen 37H, Creatinine 2.2H, Estimat Glomerular Filtration Rate , Glucose Level 232H, Calcium Level 9.1, Magnesium Level 2.0, Pro-B-Type Natriuretic Peptide 673H Height (Feet): 5 Height (Inches): 5.00 Weight (Pounds): 154 Objective Elderly AA woman NCAT supple CTA RRR abd soft, (+) GT no edema OBS Darrell Griffith MD Jun 20, 2019 07:42
--- NOTE | 2019-06-20 07:46 | NUR ---
HAND-OFF: Report given to FELY Navarro.
--- NOTE | 2019-06-20 07:58 | NUR ---
NURSE NOTES: Patient awake, non-verbal; on nasal cannula 2 Liter, no sing of distress and shortness of breath; no sing of chest pain; Tube Feeding Glucerna 1.2 running 45cc, no residual; side rials padded for seizre percussion, breaks engaged, bed at lowest position; Barron in place, drains yellow urine; IV Right-Upped arm single lumen, flushes well; will check blood sugar as scheduled; will given oral suctioning as needed; will keep monitoring.
[2019-06-20 08:00] VITALS: BP 105/59
--- NOTE | 2019-06-20 08:43 | Pulmonology Progress Note ---
Assessment/Plan Assessment/Plan Impression: Congestive heart failure /appears improved Possible pneumonia- better on cxr Encephalopathy, Dementia HO Seizures Anemia Acute renal failure Diabetes Hypertension Previous CVA Cerebral Palsy HO right femur fracture Debility Pleural effusions Plan monitor fluid status- keep negative imaging reviewed- repeat suction if needed mobilize secretions and follow monitor fluid status O2 as needed neb therapy maintain meds for change continue same DVT prophylaxis GI follow up for feeds follow up on edema cards follow up and recommendations impression, plan, and exam edited and reviewed in detail care discussed with RN Subjective ROS Limited/Unobtainable: Yes Allergies: Coded Allergies: No Known Allergies (Verified , 12/31/09) Subjective overall care reviewed and discussed + congestion improved gi intolerance of feeds Objective Last 24 Hour Vital Signs Date Time Temp Pulse Resp B/P (MAP) Pulse Ox O2 Delivery O2 Flow Rate FiO2 06/20/19 08:00 98.0 78 18 105/59 (74) 96 06/20/19 04:00 98.2 91 20 107/50 (69) 97 06/20/19 01:10 75 18 98 Nasal Cannula 2.0 28 77 20 96 06/20/19 00:00 98.4 92 20 104/51 (68) 97 06/19/19 21:00 Nasal Cannula 2.0 06/19/19 20:16 95 Nasal Cannula 2.0 28 06/19/19 20:14 78 18 99 Nasal Cannula 2.0 28 74 20 95 06/19/19 20:00 98.2 78 20 121/60 (80) 97 06/19/19 16:00 98.5 72 19 131/76 (94) 98 06/19/19 12:51 79 19 99 Nasal Cannula 2.0 28 78 21 97 06/19/19 12:00 97.4 72 16 136/71 (92) 98 06/19/19 09:00 Nasal Cannula 2.0 Intake and Output 06/19/19 06/20/19 19:00 07:00 Intake Total 1020 ml 900 ml Output Total 1000 ml 1300 ml Balance 20 ml -400 ml Free Water 480 ml 450 ml Tube Feeding 540 ml 450 ml Output Urine Total 1000 ml 1300 ml # Bowel Movements 2 Objective WDWN NAD on oxygen reduced breath sounds bilaterally with occasional rhonchi; no wheeze [id number] without MRG NABS nontender no HSM no CC + edema, mild confused nonfocal Laboratory Tests 06/20/19 05:55: White Blood Count 9.8, Red Blood Count 3.30L, Hemoglobin 8.9L, Hematocrit 28.5L , Mean Corpuscular Volume 86, Mean Corpuscular Hemoglobin 27.0, Mean Corpuscular Hemoglobin Concent 31.2L, Red Cell Distribution Width 17.2H, Platelet Count 333, Mean Platelet Volume 5.5L, Neutrophils (%) (Auto) 67.3, Lymphocytes (%) (Auto) 21.4, Monocytes (%) (Auto) 7.2, Eosinophils (%) (Auto) 3.5H, Basophils (%) (Auto) 0.6, Sodium Level 139, Potassium Level 5.3H, Chloride Level 107, Carbon Dioxide Level 24, Anion Gap 8, Blood Urea Nitrogen 37H, Creatinine 2.2H, Estimat Glomerular Filtration Rate , Glucose Level 232H, Calcium Level 9.1, Magnesium Level 2.0, Pro-B-Type Natriuretic Peptide 673H Current Medications Medications (Trade) Dose Ordered Sig/Aaron Route PRN Reason Start Time Stop Time Status Last Admin Dose Admin Acetaminophen (Tylenol) 650 mg Q4H PRN GT Mild Pain/Temp > 100.5 06/14/19 18:00 07/10/19 17:59 Albuterol/ Ipratropium (Albuterol/ Ipratropium) 3 ml Q6HRT HHN 06/20/19 08:00 06/25/19 07:59 Chlorhexidine Gluconate (Arabella-Hex 2%) 1 applic DAILY@2000 TOPIC 06/18/19 22:45 07/18/19 22:44 06/19/19 21:15 Dextrose (Dextrose 50%) 25 ml Q30M PRN IV Hypoglycemia 06/14/19 17:45 07/10/19 00:44 Dextrose (Dextrose 50%) 50 ml Q30M PRN IV Hypoglycemia 06/14/19 17:45 07/10/19 00:44 Gabapentin (Neurontin) 100 mg Q12HR GT 06/14/19 21:00 07/14/19 20:59 06/19/19 21:15 Guaifenesin (Robitussin) 100 mg Q6H PRN GT For Cough 06/14/19 18:00 07/11/19 17:59 Heparin Sodium (Porcine) (Heparin 5000 units/ml) 5,000 units EVERY 12 HOURS SUBQ 06/14/19 21:00 07/10/19 20:59 06/19/19 21:17 Insulin Aspart (NovoLOG) BEFORE MEALS AND HS SUBQ 06/14/19 21:00 07/10/19 06:29 06/20/19 06:29 Levetiracetam (Keppra) 1,000 mg Q12HR GT 06/14/19 21:00 07/11/19 08:59 06/19/19 21:15 Levofloxacin (Levaquin) 750 mg EVERY OTHER DAY GT 06/17/19 09:00 06/24/19 08:59 06/19/19 08:59 Levothyroxine Sodium (Synthroid) 50 mcg ACBREAKFAST GT 06/15/19 06:30 07/12/19 06:29 06/20/19 06:20 Metoclopramide HCl (Reglan) 10 mg EVERY 8 HOURS GT 06/18/19 15:00 07/18/19 14:59 06/20/19 05:08 Torey Douglass MD Jun 20, 2019 08:43
[2019-06-20] MEDS: Gabapentin 300 MG/6 ML Soln GT SCH ×2 (08:47→21:19)
[2019-06-20] MEDS: Heparin 5000 units/ml inj SUBQ SCH ×2 (08:47→21:18)
--- NOTE | 2019-06-20 10:50 | Infectious Diseases Prog Note ---
Assessment/Plan Assessment/Plan A 1. Pseudomonas pneumonia 2. fungal UTI treated 3. diabetes mellitus 4. hypertension 5. 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 continue Levaquin X 3 more days Subjective ROS Limited/Unobtainable: Yes Constitutional: Denies: fever Allergies: Coded Allergies: No Known Allergies (Verified , 12/31/09) Objective Vital Signs Last 24 Hour Vital Signs Date Time Temp Pulse Resp B/P (MAP) Pulse Ox O2 Delivery O2 Flow Rate FiO2 06/20/19 09:02 96 Nasal Cannula 2.0 28 06/20/19 09:00 Nasal Cannula 2.0 06/20/19 08:00 98.0 78 18 105/59 (74) 96 06/20/19 04:00 98.2 91 20 107/50 (69) 97 06/20/19 01:10 75 18 98 Nasal Cannula 2.0 28 77 20 96 06/20/19 00:00 98.4 92 20 104/51 (68) 97 06/19/19 21:00 Nasal Cannula 2.0 06/19/19 20:16 95 Nasal Cannula 2.0 28 06/19/19 20:14 78 18 99 Nasal Cannula 2.0 28 74 20 95 06/19/19 20:00 98.2 78 20 121/60 (80) 97 06/19/19 16:00 98.5 72 19 131/76 (94) 98 06/19/19 12:51 79 19 99 Nasal Cannula 2.0 28 78 21 97 06/19/19 12:00 97.4 72 16 136/71 (92) 98 Height (Feet): 5 Height (Inches): 5.00 Weight (Pounds): 154 General Appearance: no acute distress HEENT: mucous membranes moist Respiratory/Chest: lungs clear Cardiovascular: normal rate, other - R arm midline Abdomen: soft, non tender, other - GT feeding Extremities: no edema Neurologic/Psychiatric: aphasia Laboratory Tests Test 06/20/19 05:55 White Blood Count 9.8 K/UL (4.8-10.8) Red Blood Count 3.30 M/UL (4.20-5.40) L Hemoglobin 8.9 G/DL (12.0-16.0) L Hematocrit 28.5 % (37.0-47.0) L Mean Corpuscular Volume 86 FL (80-99) Mean Corpuscular Hemoglobin 27.0 PG (27.0-31.0) Mean Corpuscular Hemoglobin Concent 31.2 G/DL (32.0-36.0) L Red Cell Distribution Width 17.2 % (11.6-14.8) H Platelet Count 333 K/UL (150-450) Mean Platelet Volume 5.5 FL (6.5-10.1) L Neutrophils (%) (Auto) 67.3 % (45.0-75.0) Lymphocytes (%) (Auto) 21.4 % (20.0-45.0) Monocytes (%) (Auto) 7.2 % (1.0-10.0) Eosinophils (%) (Auto) 3.5 % (0.0-3.0) H Basophils (%) (Auto) 0.6 % (0.0-2.0) Sodium Level 139 MMOL/L (136-145) Potassium Level 5.3 MMOL/L (3.5-5.1) H Chloride Level 107 MMOL/L (98-107) Carbon Dioxide Level 24 MMOL/L (21-32) Anion Gap 8 mmol/L (5-15) Blood Urea Nitrogen 37 mg/dL (7-18) H Creatinine 2.2 MG/DL (0.55-1.30) H Estimat Glomerular Filtration Rate mL/min (>60) Glucose Level 232 MG/DL (74-106) H Calcium Level 9.1 MG/DL (8.5-10.1) Magnesium Level 2.0 MG/DL (1.8-2.4) Pro-B-Type Natriuretic Peptide 673 pg/mL (0-125) H Current Medications Medications (Trade) Dose Ordered Sig/Aaron Route PRN Reason Start Time Stop Time Status Last Admin Dose Admin Acetaminophen (Tylenol) 650 mg Q4H PRN GT Mild Pain/Temp > 100.5 06/14/19 18:00 07/10/19 17:59 Albuterol/ Ipratropium (Albuterol/ Ipratropium) 3 ml Q6HRT HHN 06/20/19 08:00 06/25/19 07:59 Chlorhexidine Gluconate (Arabella-Hex 2%) 1 applic DAILY@1999 TOPIC 06/18/19 22:45 07/18/19 22:44 06/19/19 21:15 Dextrose (Dextrose 50%) 25 ml Q30M PRN IV Hypoglycemia 06/14/19 17:45 07/10/19 00:44 Dextrose (Dextrose 50%) 50 ml Q30M PRN IV Hypoglycemia 06/14/19 17:45 07/10/19 00:44 Gabapentin (Neurontin) 100 mg Q12HR GT 06/14/19 21:00 07/14/19 20:59 06/20/19 08:47 Guaifenesin (Robitussin) 100 mg Q6H PRN GT For Cough 06/14/19 18:00 07/11/19 17:59 Heparin Sodium (Porcine) (Heparin 5000 units/ml) 5,000 units EVERY 12 HOURS SUBQ 06/14/19 21:00 07/10/19 20:59 06/20/19 08:47 Insulin Aspart (NovoLOG) BEFORE MEALS AND HS SUBQ 06/14/19 21:00 07/10/19 06:29 06/20/19 06:29 Levetiracetam (Keppra) 1,000 mg Q12HR GT 06/14/19 21:00 07/11/19 08:59 06/20/19 08:47 Levofloxacin (Levaquin) 750 mg EVERY OTHER DAY GT 06/17/19 09:00 06/24/19 08:59 06/19/19 08:59 Levothyroxine Sodium (Synthroid) 50 mcg ACBREAKFAST GT 06/15/19 06:30 07/12/19 06:29 06/20/19 06:20 Metoclopramide HCl (Reglan) 10 mg EVERY 8 HOURS GT 06/18/19 15:00 07/18/19 14:59 06/20/19 05:08 Bay Richter MD Jun 20, 2019 10:50
--- NOTE | 2019-06-20 11:48 | NUR ---
*-* INSURANCE *--* ALL CLINICALS AND REVIEWS HAVE BEEN FAXED TO: [facility] FAX ALL CLINICALS TO [phone]
[2019-06-20 12:00] VITALS: BP 110/61
--- NOTE | 2019-06-20 14:59 | General Progress Note ---
Assessment/Plan Problem List: (1) HTN (hypertension) ICD Codes: I10 - Essential (primary) hypertension SNOMED: 48023175 (2) Pneumonia ICD Codes: J18.9 - Pneumonia, unspecified organism SNOMED: 687460017 (3) ATN (acute tubular necrosis) ICD Codes: N17.0 - Acute kidney failure with tubular necrosis SNOMED: 25001695 (4) CHF (congestive heart failure) ICD Codes: I50.9 - Heart failure, unspecified SNOMED: 59389551 Qualifiers: Qualified Codes: I50.9 - Heart failure, unspecified (5) Encephalopathy acute ICD Codes: G93.40 - Encephalopathy, unspecified SNOMED: 7469801 (6) UTI (urinary tract infection) ICD Codes: N39.0 - Urinary tract infection, site not specified SNOMED: 92016519 Qualifiers: Qualified Codes: N30.00 - Acute cystitis without hematuria Status: stable Assessment/Plan: lasix monitor volume status. difficult to manage with renal insuff glycopyrrolate for secretion control resp rx suctioning gt feeds- watch residuals reglan bowel regime iv abx per id dc planning tomorrow if continued improvement Subjective ROS Limited/Unobtainable: Yes Constitutional: Reports: weakness HEENT: Reports: no symptoms Cardiovascular: Reports: edema Respiratory: Reports: cough, shortness of breath, sputum Gastrointestinal/Abdominal: Reports: difficulty swallowing Genitourinary: Reports: no symptoms Neurologic/Psychiatric: Reports: paresthesia, pre-existing deficit, seizure Endocrine: Reports: no symptoms Hematologic/Lymphatic: Reports: anemia Allergies: Coded Allergies: No Known Allergies (Verified , 12/31/09) All Systems: reviewed and negative except above Subjective no events. w/o complaints. no fever or chills. per staff less congested. requiring less suctioning. q8 by RT Objective Last 24 Hour Vital Signs Date Time Temp Pulse Resp B/P (MAP) Pulse Ox O2 Delivery O2 Flow Rate FiO2 06/20/19 13:08 77 18 97 Nasal Cannula 3.0 32 76 18 96 06/20/19 12:00 97.9 72 17 110/61 (77) 96 06/20/19 09:02 96 Nasal Cannula 2.0 28 06/20/19 09:00 Nasal Cannula 2.0 06/20/19 08:00 98.0 78 18 105/59 (74) 96 06/20/19 04:00 98.2 91 20 107/50 (69) 97 06/20/19 01:10 75 18 98 Nasal Cannula 2.0 28 77 20 96 06/20/19 00:00 98.4 92 20 104/51 (68) 97 06/19/19 21:00 Nasal Cannula 2.0 06/19/19 20:16 95 Nasal Cannula 2.0 28 06/19/19 20:14 78 18 99 Nasal Cannula 2.0 28 74 20 95 06/19/19 20:00 98.2 78 20 121/60 (80) 97 06/19/19 16:00 98.5 72 19 131/76 (94) 98 Intake and Output 06/19/19 06/20/19 19:00 07:00 Intake Total 1020 ml 900 ml Output Total 1000 ml 1300 ml Balance 20 ml -400 ml Free Water 480 ml 450 ml Tube Feeding 540 ml 450 ml Output Urine Total 1000 ml 1300 ml # Bowel Movements 2 Laboratory Tests 06/20/19 05:55: White Blood Count 9.8, Red Blood Count 3.30L, Hemoglobin 8.9L, Hematocrit 28.5L , Mean Corpuscular Volume 86, Mean Corpuscular Hemoglobin 27.0, Mean Corpuscular Hemoglobin Concent 31.2L, Red Cell Distribution Width 17.2H, Platelet Count 333, Mean Platelet Volume 5.5L, Neutrophils (%) (Auto) 67.3, Lymphocytes (%) (Auto) 21.4, Monocytes (%) (Auto) 7.2, Eosinophils (%) (Auto) 3.5H, Basophils (%) (Auto) 0.6, Sodium Level 139, Potassium Level 5.3H, Chloride Level 107, Carbon Dioxide Level 24, Anion Gap 8, Blood Urea Nitrogen 37H, Creatinine 2.2H, Estimat Glomerular Filtration Rate , Glucose Level 232H, Calcium Level 9.1, Magnesium Level 2.0, Pro-B-Type Natriuretic Peptide 673H Height (Feet): 5 Height (Inches): 5.00 Weight (Pounds): 154 Objective General Appearance: WD/WN, alert Neck: supple Cardiovascular: normal rate, regular rhythm Respiratory/Chest: chest wall non-tender, no respiratory distress, no accessory muscle use, rhonchi - bilaterally Abdomen: normal bowel sounds, non tender, soft, no organomegaly Edema: no edema noted Arm (L), no edema noted Arm (R), no edema noted Leg (L), no edema noted Leg (R), no edema noted Pedal (L), no edema noted Pedal (R), no edema noted Generalized Jeffrey Crowder MD Jun 20, 2019 14:59
[2019-06-20 16:00] VITALS: BP 110/69
--- NOTE | 2019-06-20 16:53 | NUR ---
DISCHARGE PLANNING FAXED CLINICALS TO SNF PATIENT WILL BE RETURN TO [facility] ROOM 16[address] T: [phone] FOR NURSE TO NURSE REPORT [facility] HAS BEEN ARRANGED FOR 1830 CHECK EMBOSSER
[2019-06-20] MEDS ORDERED: METOCLOPRA10 MG/10 M GT ×2 (18:29→18:30)
[2019-06-20] MEDS ORDERED: HIBICLENS118 ML TP ×3 (18:32→18:37)
--- NOTE | 2019-06-20 18:49 | NUR ---
NURSE NOTES: Report given to MARQUES Gan at [facility]; per MD bAarca, Barron and Mid line access kept upon discharge; wound care provided and picture taken and uploaded; dressing for mid-line and tube feeding changed;
--- NOTE | 2019-06-20 19:22 | NUR ---
HAND-OFF: Report given to FELY Raygoza.
--- NOTE | 2019-06-20 19:26 | NUR ---
NURSE NOTES: Received report from FELY Navarro. Patient ready for discharge. Documentations done. Midline on right upper arm intact with clean dressing. Barron intact draining urine. Gtube dressing intact and clean. Bilateral heel and sacral dressings have been changed during previous shift, intact, clean, and dry. Patient breathing unlabored in 2 L O2 via NC. Patient awake but non verbal. Bed placed at the lowest with alarm, brake, and siderails up for safety. Call light placed within reach. Will continue monitor and provide care as ordered. Attempted to reach person to notify about discharge, but was unable to reach at this time. Phone number did not have option to leave a message. Will try again.
--- NOTE | 2019-06-20 19:50 | NUR ---
NURSE NOTES: Next of Kin Tram Anastasiya came to visit the patient. Informed about the discharge. Family member verbalized understanding.
[2019-06-20] MEDS: Dyna-Hex 2% Top Sol 2oz TOPIC SCH (20:23)
--- NOTE | 2019-06-20 21:50 | NUR ---
NURSE NOTES: Patient left the unit with [facility]. Patient awake but nonverbal. Breathing unlabored without distress, discomfort, or sob on 2L O2 via NC. No s/s of pain noted at this time. Sacral stage 1, bilateral heel DTI pictures were taken during the previous shift. Otherwise, skin intact. No belongings. Attempted providing educational information. Family member Anastasiya is aware of discharge. VS: 92/42 RR20 HR75 Temp97.2 O2Sat 95% with 2L O2. Patient discharged with perera, midline, and gtube. Documentations placed in secure envelope and handed to [facility] personnel. Patient left the unit on a gurney in stable condition.
--- NOTE | 2019-06-21 05:00 | Progress Note ---
DATE: 06/20/2019 CARDIOLOGY PROGRESS NOTE SUBJECTIVE: Less congestion. Less suctioning required. OBJECTIVE: VITAL SIGNS: Blood pressure 110/61, heart rate 72, respiratory rate 17, and afebrile. Oxygen saturations on 2 liters is 96%. LUNGS: Few rhonchi. LUNGS: Good breath sounds. No wheezing. HEART: Regular rhythm and rate. Normal S1, S2 with a fourth heart sound. ABDOMEN: Soft. EXTREMITIES: There is no edema. LABORATORY DATA: White count 9.8 and hemoglobin 8.9. Sodium 139, potassium 5.3, magnesium 2, bicarb 24, BUN 37, and creatinine 2.2. IMPRESSION: 1. Dysphagia. 2. Aspiration pneumonia. 3. Chronic diastolic congestive heart failure. 4. Hyperkalemia, improved. 5. Acute renal failure, slightly worsened with underlying chronic kidney disease. 6. Qinhnanp-cj-gxyyam protein-calorie malnutrition. PLAN: 1. Increase fluid per G-tube. 2. Respiratory hygiene. 3. No diuretic therapy indicated. 4. Will need close monitoring at the [facility] facility due to comorbidities and high risk for deterioration. Kavon Peña M.D. DR: RICHY JOB#: [id number] CC:
--- NOTE | 2019-06-21 09:42 | Discharge Summary ---
Discharge Summary Discharge Summary _ DATE OF ADMISSION: 06/09/2019 DATE OF DISCHARGE: 06/20/2019 DISCHARGED BY: Dr. Crowder REASON FOR ADMISSION: 78 years old female with past medical history of diabetes mellitus, hypertension , seizure disorder, CHF, presented to emergency department with shortness of breath. Per EMS oxygenation was in 70 at the nursing facility. Patient appeared to be short of breath. No reported fever, no chills. No nausea or vomiting. Patient was placed on nonrebreather mask and brought to emergency room for evaluation . Laboratory workup revealed mild leukocytosis WBC 11.2, hemoglobin 10.5, hematocrit 33.3. Lactic acid 1.8. Sodium 123. Chloride 86. BUN 132, creatinine 3.0. Glucose 163. Troponin negative. pro BNP 808. EKG revealed normal sinus rhythm , no acute ischemic changes Stable LFT. Albumin 2.9. Urinalysis revealed evidence of urinary tract infection. Chest x-ray demonstrated interstitial edema. Per POLST, patient with DNR/DNI status with selective treatment. In emergency department patient received empiric antibiotic based on prior urine culture , received nebulizing treatment with bronchodilator, diuresed with IV Lasix and admitted for further management. CONSULTANTS: answering service operator pulmonary Dr. Douglass ID specialist Dr. Prieto GI specialist Dr. Griffith [facility] COURSE: Patient admitted to monitored floor. Patient started on empiric antibiotic as per ID specialist recommendation. Patient started on cautious diuresis with close monitoring of volumes and cardiorenal parameters. DVT prophylaxis provided. No free water per G-tube provided due to hyponatremia. Supplemental oxygen titrated to keep pulse oximetry above 92%. Bronchodilator therapy provided. Blood sugar was managed with sliding scale of insulin Seizure precaution maintained. Keppra continued. Supportive care provided. Diuretic soon stopped. Patient was on hypotonic IV fluids. Renal parameters and electrolytes were closely monitored, electrolytes further corrected as needed. Prior to discharge sodium up to 139 from initial 123 and chloride up to 107 from initial 86. BUN from 132 down to 37 and creatinine from 3 down to 2.2. Patient was followed-up with chest x-ray, which revealed left pleural effusion with atelectasis versus pneumonia. Possible trace right pleural effusion. Patchy airspace opacities throughout the lungs, possibly representing t pulmonary edema versus infectious inflammatory process, increased compared to prior exam. Patient was started on tretament for pneumonia, ID specialist followed. Blood cultures were negative. Urine culture revealed Kimberley. Sputum culture revealed Pseudomonas. Patient was followed up with CXR. Supplemental oxygen and bronchodilator therapy provided. Patient was suctioned as needed. Antitussive provided as needed. Antibiotic regimen was optimized as per ID specialist recommendation. Patient will require to continue Levaquin for 3 additional days at the facility as recommended by ID specialist. GI specialist followed . Patient initially had G tube feeding intolerance, likely due to underlying diabetes mellitus gastroparesis. Patient was placed on promotility agent with trial for 2 weeks. Strict aspiration /reflux precautions maintained. Tube feeding goal rate and protein supplements provided as per registered appraiser recommendation. Patient was eventually able to tolerate GT feeding Abdominal ultrasound demonstrated grossly unremarkable bilateral kidneys. Liver unremarkable. No acute finding overall demonstrated. Antihypertensive were titrated. Blood pressure was managed with Hydralazine and remained stable. Levothyroxine continued. Hemoglobin and hematocrit were closely monitored with goal to keep hemoglobin above 7. Prior to discharge hemoglobin 8.9, hematocrit 28.5. Last chest x-ray revealed subsegmental atelectasis versus infiltrate in the left lung base. Patient will need to continue Levaquin for 3 additional days to complete the treatment as recommended by ID specialist. Recommended to repeat the chest x-ray upon completion of treatment. Patient clinically stabilized: pro BNP down to 673; no fevers, no leukocytosis , stable respiratory status. Patient was ready for transfer back to the custodial facility for continuation of care. FINAL DIAGNOSES: Sepsis Fungal urinary tract infection, status post treatment Pseudomonas pneumonia Possibly aspiration pneumonia Acute renal failure with underlying chronic kidney disease Acute on chronic diastolic congestive heart failure Electrolyte abnormalities: hyponatremia , hypochloremia, hyperkalemia Pleural effusion Cerebrovascular disease with advanced dementia Dysphagia, feeding by G-tube G-tube intolerance, l likely due to diabetic gastroparesis -resolved Moderate to severe protein calorie malnutrition Dehydration Hypothyroidism Hypertensive heart disease Acute encephalopathy Dementia Cerebral palsy Anemia DISCHARGE MEDICATIONS: See Medication Reconciliation list. DISCHARGE INSTRUCTIONS: Patient was discharged to the custodial facility. Follow up with medical doctor at the facility. I have been assigned to dictate discharge summary for this account. I was not involved in the patient's management. Chica Brizuela NP Jun 21, 2019 09:42
--- NOTE | 2019-06-22 16:02 | Cardiology Report ---
APPROVED REPORT EKG Measurement Heart [id number] Accelerated Junctional rhythm Abnormal ECG
--- NOTE | 2019-06-30 00:22 | Coder Physician Query ---
PLEASE COMPLETE THE DOCUMENT BEFORE SIGNING Dear Dr. Crowder Date: 06/29/19 Front Office Specialist/CDS Name: DAISY, CCS Exercise your independent professional judgment when responding to query. Question asked do not imply a particular answer is desired/expected Clinical Documentation States: History & Physical:LABORATORY DATA: Labs showed a white count of 11, hemoglobin 10, hematocrit 33, platelets of 120. Sodium 123, potassium 4.3, chloride 86, bicarb 24, BUN 132, creatinine 3. UA showed too numerous to count wbc's. ASSESSMENT: This is an unfortunate female who complains of respiratory failure secondary to CHF exacerbation. She has acute on chronic renal failure as well as UTIs. Sepsis in DC Summary FINAL DIAGNOSES: Sepsis Fungal urinary tract infection, status post treatment Pseudomonas pneumonia Laboratory workup revealed mild leukocytosis WBC 11.2, hemoglobin 10.5, hematocrit 33.3. Lactic acid 1.8. ID specialist followed. Blood cultures were negative. Urine culture revealed Kimberley. Sputum culture revealed Pseudomonas. Was SEPSIS present on admission? [x] Yes [] No [] Clinically undeterminable Jeffrey Crowder M.D. Date & Time Please also document in your Progress Notes and/or Discharge Summary and indicate if the condition was present on admission. MTDD
== END 2019-06-20 21:42 | DRG 720 ==
LOC: EDBD 21:46 → EMR 21:57 → 2E 23:08 → EDBEDREQ 23:44 → 4E 06-14 17:14
DX: A41.9 Sepsis, unspecified organism (principal); I13.0 Hypertensive heart and chronic kidney disease with heart failure and stage 1 through stage 4 chronic kidney disease, or unspecified chronic kidney disease; N18.9 Chronic kidney disease, unspecified; I50.33 Acute on chronic diastolic (congestive) heart failure; I50.9 Heart failure, unspecified; Z66 Do not resuscitate; N17.0 Acute kidney failure with tubular necrosis; G93.40 Encephalopathy, unspecified; B37.49 Other urogenital candidiasis; J15.1 Pneumonia due to Pseudomonas; J69.0 Pneumonitis due to inhalation of food and vomit; I69.319 Unspecified symptoms and signs involving cognitive functions following cerebral infarction; E87.1 Hypo-osmolality and hyponatremia; E86.0 Dehydration; E87.8 Other disorders of electrolyte and fluid balance, not elsewhere classified; E87.5 Hyperkalemia; F01.50 Vascular dementia, unspecified severity, without behavioral disturbance, psychotic disturbance, mood disturbance, and anxiety; R13.10 Dysphagia, unspecified; Z43.1 Encounter for attention to gastrostomy; E43 Unspecified severe protein-calorie malnutrition; E03.9 Hypothyroidism, unspecified; G80.9 Cerebral palsy, unspecified; E11.22 Type 2 diabetes mellitus with diabetic chronic kidney disease; G40.909 Epilepsy, unspecified, not intractable, without status epilepticus; Z22.322 Carrier or suspected carrier of Methicillin resistant Staphylococcus aureus; E11.43 Type 2 diabetes mellitus with diabetic autonomic (poly)neuropathy; K31.84 Gastroparesis; D64.9 Anemia, unspecified
CPT/HCPCS: 36415; 71045; 71047; 74018; 76700; 80048; 80053; 80299; 81003; 82550; 82553; 82962; 82977; 83605; 83735; 83880; 83935; 84300; 84484; 85025; 87040; 87070; 87081; 87086; 87181; 87205; 93005; 94640; 94664; 96365; 96375; 99285; J1815; J2765; J7030; J7620

== ENCOUNTER 2019-10-14 23:48 | Inpatient (IN) | payer MEDICAID, MEDICARE ==
[~2019-10-14] VITALS: Ht 165.1 cm; Wt 62.2 kg
[~2019-10-14 23:48] MED LIST changes: +ADULT WAL-100 MG/5 M GT; +BISACODYL10 M1 RC; +BISACODYL5 MG RC; +CATAPRES0.1 MG GT; +DOCUSATE SODIU100 MG GT; +DUONEB 0.5-3(2.53 ML HHN; +EMERGEN-C 500500 MG GT; +FUROSEMIDE20 M1 GT; +GLYCOPYRROLATE1 MG GT; +HIBICLENS118 ML TP; +KEPPRA1000 MG GT; +LACTULOSE20 GM/301 GT; +METOCLOPRA10 MG/10 M GT; +MILK OF MA400 MG/51 GT; +MIRALAX17 G2 GT; +MULTI-BETIC TA1 EAC1 GT; +MULTIVITAMINS1 EAC2 GT; +NEPHROVITE1 TAB GT; +NEPRO CARB STE237 ML GT; +OMEPRAZOLE40 M1 GT; +PANTOPRAZOLE SO40 MG GT; +ROBITUSSIN AC5 ML GT; +SYMLIN600 MCG/1 SUBQ; +TYLENOL325 MG GT; +VITAMIN C250 MG GT; +VITAMIN D250000 UNI1 GT; +ZOFRAN 4 MG4 MG/2 ML GT
[2019-10-14 23:52] VITALS: BP 123/77
--- NOTE | 2019-10-14 23:53 | NUR ---
ED Nurse Note: Pt AGNES from [facility], [place] C/O SOB with congestion that started ealier today, pt aao x 0, VSS. Pt has productive cough but is unable to cough up secretions; pt was suctioned to improved breathing. Awaiting ERMD at bedside Addendum: 10/15/19 at 0327 by JOEY ED Nurse Note: Pt AGNES from [facility] [place] C/O SOB with congestion that started ealier today, pt aao x 0, VSS. Pt has productive cough but is unable to cough up secretions; pt was suctioned to improved breathing. Awaiting ERMD at bedside. Pt on 4L oxygen NC
[2019-10-15] VITALS (7 sets, daily range): BP systolic 99–160; BP diastolic 54–96
--- NOTE | 2019-10-15 | NUR ---
ED Nurse Note: ERMD at bedside
--- NOTE | 2019-10-15 00:05 | NUR ---
ED Nurse Note: Pt has PICC line on right upper arm; Line can be flushed with NS but does not allow for blood draw. ERMD aware
--- NOTE | 2019-10-15 00:28 | NUR ---
ED Nurse Note: All lab work drawn and sent to lab
[2019-10-15] MEDS ORDERED: Ipratropium 0.02% Inh Soln 2.5ml UD HHN ONE (00:30)
[2019-10-15] MEDS ORDERED: Albuterol ud Inhalation HHN ONE (00:30)
--- NOTE | 2019-10-15 00:30 | NUR ---
ED Nurse Note: RT at bedside
[2019-10-15 01:01] LABS: BASOPHILS % (AUTO) 0.6 % (0.0-2.0); EOSINOPHILS % (AUTO) 4.8 % (0.0-3.0); HEMATOCRIT 29.3 % (37.0-47.0); HEMOGLOBIN 9.5 G/DL (12.0-16.0); LYMPHOCYTES % (AUTO) 29.2 % (20.0-45.0); MEAN CORPUSCULAR VOLUME 87 FL (80-99); NEUTROPHILS % (AUTO) 51.4 % (45.0-75.0); PLATELET COUNT 247 K/UL (150-450); RED BLOOD COUNT 3.36 M/UL (4.20-5.40); RED CELL DISTRIBUTION WIDTH 15.9 % (11.6-14.8); WHITE BLOOD COUNT 5.7 K/UL (4.8-10.8)
[2019-10-15 01:12] LABS: ANION GAP 6 mmol/L (5-15); BLOOD UREA NITROGEN 90 mg/dL (7-18); CALCIUM 9.4 MG/DL (8.5-10.1); CARBON DIOXIDE 39 MMOL/L (21-32); CHLORIDE 94 MMOL/L (98-107); CREATININE 2.2 MG/DL (0.55-1.30); SODIUM 139 MMOL/L (136-145)
[2019-10-15 01:22] LABS: ALANINE AMINOTRANSFERASE 34 U/L (12-78); ALBUMIN 2.8 G/DL (3.4-5.0); ALBUMIN/GLOBULIN RATIO 0.5 (1.0-2.7); ALKALINE PHOSPHATASE 175 U/L (46-116); ASPARTATE AMINO TRANSFERASE 21 U/L (15-37); BILIRUBIN,TOTAL 0.4 MG/DL (0.2-1.0)
--- NOTE | 2019-10-15 01:34 | Emergency Room Report ---
History of Present Illness General Chief Complaint: Dyspnea/Respdistress Source: Patient Present Illness HPI This is an 79-year-old female with multiple medical problem. She is coming from a care home and is a DNR with selective treatment. She has a history of pneumonia renal failure diabetes seizure. She presents with chief complaint of respiratory distress and congestion. Onset for 1 day. No nausea no vomiting.. Thick wet cough. Nothing made it better. Nothing made it worse. History is limited because patient is nonverbal. Allergies: Coded Allergies: No Known Allergies (Verified , 12/31/09) Patient History Past Medical History: see triage record, old chart reviewed Past Surgical History: other Pertinent Family History: none Social History: Denies: smoking Last Menstrual Period: na Now: No Immunizations: other Reviewed Nursing Documentation: PMH: Agreed; PSxH: Agreed Nursing Documentation-PMH Past Medical History: No History, Except For Hx Cardiac Problems: Yes - CHf; anemia Hx Hypertension: Yes Hx Pacemaker: No Hx Asthma: No Hx COPD: No Hx Diabetes: Yes Hx Cancer: No Hx Dialysis: No - CKD Hx Neurological Problems: Yes - hypothyroid Hx Cerebrovascular Accident: No Hx Seizures: No Hx Cerebral Palsy: Yes Review of Systems Respiratory: Reports: shortness of breath All Other Systems: limited - Patient is nonverbal Physical Exam Vital Signs Date Time Temp Pulse Resp B/P (MAP) Pulse Ox O2 Delivery O2 Flow Rate FiO2 10/14/19 23:49 97.3 76 20 124/70 (88) 98 Nasal Cannula 3.0 10/15/19 00:30 36 Vitals with hypoxia Sp02 EP Interpretation: abnormal General Appearance: mild distress Head: normocephalic, atraumatic Eyes: bilateral eye PERRL, bilateral eye EOMI ENT: hearing grossly normal, normal pharynx Neck: full range of motion, supple, no meningismus Respiratory: chest non-tender, decreased breath sounds, accessory muscle use, rales, rhonchi Cardiovascular #1: regular rate, rhythm, no murmur Gastrointestinal: normal bowel sounds, non tender, no mass, no organomegaly, no bruit, non-distended Musculoskeletal: back normal, normal range of motion, swelling - 1+ pitting edema Psychiatric: mood/affect normal Medical Decision Making Diagnostic Impression: Primary Impression: CHF (congestive heart failure) Qualified Codes: I50.9 - Heart failure, unspecified Additional Impressions: ARF (acute renal failure) Qualified Codes: N17.9 - Acute kidney failure, unspecified EDGAR (acute kidney injury) UTI (urinary tract infection) Qualified Codes: N30.00 - Acute cystitis without hematuria Anemia Qualified Codes: D64.9 - Anemia, unspecified Hyperglycemia Proteinuria Qualified Codes: R80.9 - Proteinuria, unspecified ER Course Patient presents with congestion. She has a lot of mucus with suctioning. Breathing treatment given. She may have a component of pneumonia and CHF. Urine is also positive. I gave her dose of Rocephin. Previous culture grew out Providencia and Proteus. Both were sensitive to Rocephin. Will admit patient for gentle diuresis. She is also very dry. I contacted Dr. Crowder for admission. EKG Diagnostic Results Rate: normal Rhythm: NSR ST Segments: no acute changes Rhythm Strip Diag. Results EP Interpretation: yes Rate: 75 Rhythm: NSR, no PVC's, no ectopy Chest X-Ray Diagnostic Results Chest X-Ray Diagnostic Results : Chest X-Ray Ordered: Yes # of Views/Limited/Complete: 1 View Indication: Shortness of Breath EP Interpretation: Yes Interpretation: no consolidation, no effusion, no pneumothorax, other - vasc congestion Impression: Other - CHF Electronically Signed by: Giuliano Montoya MD Last Vital Signs Date Time Temp Pulse Resp B/P (MAP) Pulse Ox O2 Delivery O2 Flow Rate FiO2 10/15/19 00:30 75 14 100 Nasal Cannula 4.0 36 72 14 100 10/14/19 23:49 97.3 124/70 (88) Status: improved Disposition: ADMITTED INPATIENT Condition: Serious Referrals: Jeffrey Crowder MD (PCP) Giuliano Montoya MD Oct 15, 2019 01:34
--- NOTE | 2019-10-15 01:41 | Diagnostic Imaging Report ---
EXAM: XR Chest, 1 View CLINICAL HISTORY: SOB TECHNIQUE: Frontal view of the chest. COMPARISON: Chest x-ray 09/29/2019 FINDINGS: Lungs: Bilateral interstitial edema, similar to the prior study. No large consolidation. Pleural space: No pleural effusion. No pneumothorax. Heart: Unremarkable. No cardiomegaly. Bones/joints: Anterior inferior dislocation of the right humeral head, unchanged. IMPRESSION: 1. Bilateral interstitial edema, similar to the prior study. 2. Anterior inferior dislocation of the right humeral head, unchanged.
--- NOTE | 2019-10-15 02:00 | NUR ---
ED Nurse Note: Pt resting in bed, VSS, no s/s of distress noted. Pt requires intermittent suctioning d/t inability to cough up secretions.
[2019-10-15 02:23] LABS: APPEARANCE,URINE CLOUDY; BILIRUBIN, URINE NEGATIVE (NEGATIVE); COLOR,URINE PALE YELLOW; GLUCOSE, URINE (UA) 3+ (NEGATIVE); KETONES,URINE NEGATIVE (NEGATIVE); LEUKOCYTE ESTERASE ,URINE 3+ (NEGATIVE); NITRITE,URINE NEGATIVE (NEGATIVE); PH,URINE 6.5 (4.5-8.0); PROTEIN,URINE 2+ (NEGATIVE); UROBILINOGEN,URINE NORMAL MG/DL (0.0-1.0)
[2019-10-15] MEDS ORDERED: cefTRIAXone 1 GM in NS 55 ML IVPB ONE (02:30)
[2019-10-15] MEDS ORDERED: Acetaminophen 650 MG SUPP RECTAL PRN (03:15)
--- NOTE | 2019-10-15 04:00 | NUR ---
ED Nurse Note: Pt resting in bed, VSS no s/s of distress noted. All medications administered, no adverse reactions noted.
--- NOTE | 2019-10-15 04:05 | NUR ---
ED Nurse Note: Report given to FELY Domingo on telemetry floor for pt transfer.
--- NOTE | 2019-10-15 04:30 | NUR ---
ER DISCHARGE NOTE: Patient is cleared to be discharged to telemetry floor per ERMD, pt is aox4, on room air, with stable vital signs. pt was given dc and prescription instructions, pt was able to verbalize understanding. Pt was transported upstairs with [employer]IST and RN.
--- NOTE | 2019-10-15 04:45 | NUR ---
NURSE NOTES: Received patient from FELY Che. Patient is awake. No signs of distress. Respiration even and unlabored. GT intact. Patient noted to have old sacral wound, Stage I Left trochanter. Patient is nonverbal. Safety precautions in place. Bed locked and lowest position, seizure precautions in place. Call light within reach. Will Continue to monitor.
--- NOTE | 2019-10-15 07:27 | NUR ---
NURSE NOTES: Dr. Crowder contacted for admission orders
[2019-10-15] MEDS ORDERED: Lactulose 20gm/30ml UDC GT PRN (07:30)
[2019-10-15] MEDS ORDERED: Milk of Magnesia 30ml Ud GT PRN (07:30)
--- NOTE | 2019-10-15 07:30 | NUR ---
NURSE NOTES: Received report from Sarah Couch RN. Patient asleep in bed, responsive to shaking, nonverbal, unable to make needs known and follow commands. Receiving O2 via nasal cannula @ 4L/min, respirations even and unlabored, saturating at 100%. GT in place, dressing clean and dry. Left forearm 18g and right upper arm 20g saline locks patent and asymptomatic. Bed locked in lowest position with side rails up x 3. All needs attended to. Call light within reach. Will continue to monitor. Addendum: 10/15/19 at 0901 by Chiqui Mai RN Patient has GJ tube
--- NOTE | 2019-10-15 07:36 | NUR ---
HAND-OFF: Report given to FELY Florian. Pt stable.
[2019-10-15] MEDS: levETIRAcetam 500mg/5ml Liquid GT SCH ×2 (08:46→21:26)
[2019-10-15] MEDS: Piperacillin/Tazobactam 3.375 GM in NS 110 ML IVPB SCH ×2 (08:46→21:26)
[2019-10-15] MEDS: Aspirin Baby 81mg GT SCH (08:46)
[2019-10-15] MEDS: D5NS 1,000 ML IV SCH ×2 (08:46→18:00)
[2019-10-15] MEDS: Heparin 5000 units/ml inj SUBQ SCH ×2 (08:47→21:27)
--- NOTE | 2019-10-15 09:00 | NUR ---
NURSE NOTES: Glucerna 1.5 tube feeding initiated via JT @ 15 cc/hr. HoB elevated. Will advance to goal of 30 cc/hr as tolerated.
[2019-10-15 09:03] LABS: ALANINE AMINOTRANSFERASE 32 U/L (12-78); ALBUMIN 2.6 G/DL (3.4-5.0); ALBUMIN/GLOBULIN RATIO 0.5 (1.0-2.7); ALKALINE PHOSPHATASE 161 U/L (46-116); ANION GAP 5 mmol/L (5-15); ASPARTATE AMINO TRANSFERASE 18 U/L (15-37); BILIRUBIN,TOTAL 0.4 MG/DL (0.2-1.0); BLOOD UREA NITROGEN 86 mg/dL (7-18); CALCIUM 9.6 MG/DL (8.5-10.1); CARBON DIOXIDE 40 MMOL/L (21-32); CHLORIDE 97 MMOL/L (98-107); CREATININE 2.1 MG/DL (0.55-1.30); POTASSIUM 3.1 MMOL/L (3.5-5.1); SODIUM 142 MMOL/L (136-145)
--- NOTE | 2019-10-15 09:06 | NUR ---
NURSE NOTES: K 3.1 reported, awaiting orders.
[2019-10-15] MEDS: Albuterol/Ipratropium 3ml neb HHN SCH ×3 (11:01→19:46)
--- NOTE | 2019-10-15 11:45 | NUR ---
RD ASSESSMENT & RECOMMENDATIONS SEE CARE ACTIVITY FOR COMPLETE ASSESSMENT DAILY ESTIMATED NEEDS: Needs based on DM, Renal, wound, CHF, bedbound 57.4kg abw 23-30 kcals/kg 2205-8490 total kcals 0.8-1.2 g protein/kg 46-70 g total protein 20-25 mL/kg 8689-9576 total fluid mLs NUTRITION DIAGNOSIS: 1) Altered nutrition related lab values r/t DM, CKD, cardiac hx as evidenced by pt w/ elev BUN (90), Cr (2.2), elev BG (332), elev BNP (1455) 2) Swallowing difficulty r/t dysphagia as evidenced by pt is GT dep. CURRENT TF:Glucerna 1.5 @ 30ml/hr x 22 hrs ENTERAL NUTRITION RECOMMENDATIONS: Glucerna 1.5 @ 40ml/hr x 22 hrs to provide 880ml, 1320kcal, 72g prot, 668ml free water * Increase goal rate to 40ml/hr as tolerated * Hold 1 hr before and after Synthroid med * HOB over 30 degrees/ water flush per MD Monitor lytes closely, need to change TF to Nepro ADDITIONAL RECOMMENDATIONS: 1) Monitor lytes closely, need for TF change ( Pt on Nepro HYDRODYNAMICIST, possible h/o electrolyte imbalance) 2) Wound eval- add Vit C 250mg QD, Maik 1pkt BID via PEG 3) Calibrate bed scale for accurate wt Per SNF, UJ=513.8lbs/ bedscale this AM=1.4kg 4) Add NISS: BG elev, monitor need for long acting insulin .
--- NOTE | 2019-10-15 12:02 | NUR ---
NURSE NOTES: Followed up on potassium replacement orders, received telephone order for K-Dur 40meq GT x 1.
[2019-10-15] MEDS ORDERED: Vancomycin 1.25gm/NS Premix IVPB ONE (13:00)
--- NOTE | 2019-10-15 16:00 | Consultation ---
DATE OF CONSULTATION: 10/15/2019 INFECTIOUS DISEASES CONSULTATION CONSULTING PHYSICIAN: Tyrel Prieto M.D. REFERRING PHYSICIAN: Jeffrey Crowder M.D. REASON FOR CONSULTATION: Possible pneumonia. HISTORY OF PRESENTING ILLNESS: This is an 79-year-old lady with history of diabetes, renal failure, seizures, who came in with congestion and respiratory distress along with a cough. She has a concern for pneumonia and an Infectious Diseases consultation has been obtained for antibiotics. PAST MEDICAL HISTORY: 1. History of diabetes. 2. Pneumonia. 3. Renal failure. 4. Congestive heart failure. 5. Hypertension. MEDICATIONS: As an inpatient, she is on levothyroxine, MiraLAX, vancomycin, albuterol, ipratropium, gabapentin, subcutaneous heparin, Keppra, Zosyn, aspirin, lansoprazole, clonidine, lactulose, milk of magnesia. ALLERGIES: No known drug allergies. SOCIAL HISTORY: She does not smoke, drink, or use drugs. FAMILY HISTORY: Unknown. REVIEW OF SYSTEMS: Unable to obtain currently. PHYSICAL EXAMINATION: VITAL SIGNS: Temperature of 97.7, T-max of 97.7, pulse of 66, respiratory rate of 14, blood pressure 99/60, and O2 saturation 100%. HEENT: Pupils equally reactive to light and accommodation. Mouth appears clean without thrush. NECK: Supple. No adenopathy. No JVD. CARDIOVASCULAR: Regular rate and rhythm. No murmurs. LUNGS: Clear to auscultation bilaterally. No crackles. No wheezes. ABDOMEN: Soft and nontender. No organomegaly. G-tube site is clean. EXTREMITIES: No cyanosis, no clubbing. Edema noted bilaterally. LABORATORY AND DIAGNOSTIC DATA: White count 5.7, hemoglobin 9.5, hematocrit 29.3, MCV 87, platelet count 247, with neutrophils of 51%. Sodium 132, potassium 3.1, chloride 97, bicarb 40, BUN 86, creatinine 2.1, glucose 299, calcium 9.6. Total bilirubin 0.4. AST 18, ALT 32, and alkaline phosphatase 161. Total protein 7.8, albumin 2.6. UA showing too numerous to count white cells. Chest x-ray is showing bilateral interstitial edema, anterior inferior dislocation of the right humeral head. ASSESSMENT: This is an 79-year-old lady with history of hypertension, renal failure, congestive heart failure, seizures, who comes in with respiratory distress and congestion and was found to have: 1. Urinary tract infection. 2. Renal failure. 3. Hypertension. 4. Congestive heart failure. PLAN: 1. Continue Zosyn. 2. Discontinue vancomycin. 3. We will order urine cultures. 4. We will follow up cultures and adjust antibiotics accordingly. I would like to thank, Dr. Crowder, for this consultation. Tyrel Prieto M.D. DR: ORSIE JOB#: [id number] CC: Jeffrey Crowder M.D.
--- NOTE | 2019-10-15 17:24 | NUR ---
NURSE NOTES: Received report from FELY Florian. Pt in bed, nonverbal, moaning, calmed down to touch, A/Ox1 to name, pt running IV fluids according to order, Pt running tube feeds according, no respiratory distress noted, bed in lowest position, call light within reach. Upon assessment of pt, tube feeding found to have a cut in tubing, RN stopped feeds, clean and changed pt, and notified Dr. Crowder. RN applied tape to tubing at this time and recommended a GI consult in order for G-tube to be replaced. Addendum: 10/15/19 at 1817 by ANASTASIA VELEZ RN NURSE NOTES: Dr. Crowder ordered to stop feeds at this time
--- NOTE | 2019-10-15 17:24 | NUR ---
HAND-OFF: Report given to Kavita Vidales RN.
[2019-10-15] MEDS ORDERED: D5NS 1000ml IV ONE (17:35)
[2019-10-15] MEDS ORDERED: Tubing IV Secondary IV ONE (17:35)
[2019-10-15] MEDS ORDERED: NS 275ml ONE (17:35)
--- NOTE | 2019-10-15 18:15 | History and Physical Report ---
DATE OF ADMISSION: 10/15/2019 CHIEF COMPLAINT: Possible pneumonia. HISTORY OF PRESENT ILLNESS: The patient is an unfortunate 79-year-old female. She has a history of cerebral palsy, hypertension, chronic kidney disease, stroke, seizure disorder, diabetes, and congestive heart failure. She was transferred from alf facility with complaints of congestion. On evaluation in the emergency room, she was diagnosed with pneumonia and acute on chronic renal failure. She has been started on IV hydration and is now admitted for further evaluation and care. PAST MEDICAL HISTORY: As above. PAST SURGICAL HISTORY: Includes a history of G-tube. CURRENT MEDICATIONS: Reconciled and reviewed. ALLERGIES: None. FAMILY HISTORY: None. SOCIAL HISTORY: Negative for tobacco, ethanol, or drugs. The patient currently resides in a alf facility. PHYSICAL EXAMINATION: VITAL SIGNS: Temperature 97.3, pulse 79, respirations 18, and blood pressure 112/57. GENERAL: The patient is well developed, in no apparent distress. HEART: Regular rate and rhythm. LUNGS: Significant for scattered rhonchi. ABDOMEN: Soft, nontender, and nondistended. EXTREMITIES: Without clubbing, cyanosis, or edema. LABORATORY DATA: Chest x-ray showed bilateral interstitial edema, unchanged from prior x-rays. White count was 5, hemoglobin 9.5, hematocrit 29.3, and platelet count of 247,000. Sodium 139, potassium 3, chloride 94, bicarb 39, BUN 90, and creatinine 2.2. Natriuretic peptide was 400. UA showed too numerous to count wbc's. ASSESSMENT: This is an unfortunate female admitted with complaints of shortness of breath secondary to possible pneumonia. PROBLEM LIST: 1. Pneumonia, rule out aspiration. 2. Urinary tract infection. 3. Acute on chronic renal failure. 4. History of stroke. 5. Dementia. 6. Encephalopathy. 7. Seizure disorder. 8. Diabetes. PLAN: 1. Cautious hydration. 2. Broad spectrum IV antibiotics. 3. Follow up cultures. 4. Monitor electrolytes and renal function. 5. Continue G-tube feeds. 6. Continue seizure medications. 7. The patient is DNR. Jeffrey Crowder M.D. : FAUSTO :51 JOB#: [id number] CC:
--- NOTE | 2019-10-15 18:40 | NUR ---
CASE MANAGEMENT: INITIAL REVIEW 79 YO F PRESENTED TO [facility] CC: DYSPNEA PMHx: HTN. DM. CKD. SI:CHF. EDGAR. T 97.3 HR 76 RR 20 B/P 124/70 SATS 98% ON 3L/NC LABS: K 3 CL 94 CO2 39 BUN 90 CR 2.2 GLU 332 ALP 175 BNP 1455 IS: DUO NEB HHN X1 LASIX IV X1 KCL IV X1 CEFTRIAXONE IV X1 CXR IMPRESSION: 1. Bilateral interstitial edema, similar to the prior study. 2. Anterior inferior dislocation of the right humeral head, unchanged. PATIENT ADMITTED TO TELE 10/15/2019 @ 0246 DCP: PATIENT TO BE DISCHARGED TO SNF ONCE MEDICALLY CLEARED INTERQUAL MET
--- NOTE | 2019-10-15 19:34 | NUR ---
HAND-OFF: Report given to FELY Bhatia aware of G-tube cut and not working, no feeds per Dr. Crowder.
--- NOTE | 2019-10-15 19:35 | NUR ---
NURSE NOTES: Received report from Karen GEIGER. Pt is AO x 0 non verbal. JT is not running due to JT is non functional. AM shift RN made MD aware about JT. Bed alarm is on and call light is within reach. HOB is elevated > 45 degree. Rails are up x3. Will follow the plan of care.
--- NOTE | 2019-10-15 19:51 | Pulmonology Progress Note ---
Assessment/Plan Assessment/Plan Pulmonary Consultation . HPI: Patient is an 79-year-old woman with history of Diabetes, Renal failure, Seizures, admitted with cough, congestion and respiratory distress, felt to have possible Pneumonia PAST MEDICAL HISTORY: 1. History of diabetes. 2. Pneumonia. 3. Renal failure. 4. Congestive heart failure. 5. Hypertension 6. Hypothyroidism 7. Previous G tube MEDICATIONS: Levothyroxine, MiraLAX, vancomycin, albuterol, ipratropium, gabapentin, subcutaneous heparin, Keppra, Zosyn, aspirin, lansoprazole, clonidine, lactulose, MOM ALLERGIES: No known drug allergies. SOCIAL HISTORY: Non smoker, does not drink or use drugs. FAMILY HISTORY: Unknown. REVIEW OF SYSTEMS: NA PHYSICAL EXAMINATION: VITAL SIGNS NOTED: HEENT: NCAT. Moist mm NECK: Supple. No adenopathy. No JVD. CARDIOVASCULAR: Regular rate and rhythm. No murmurs. LUNGS: Clear to auscultation bilaterally. No crackles. No wheezes. ABDOMEN: Soft and nontender. No organomegaly. G-tube site is clean. EXTREMITIES: No cyanosis, no clubbing. Mild edema noted bilaterally. LABORATORY STUDIES NOTED: White count 5.7, hemoglobin 9.5, hematocrit 29.3, MCV 87, platelet count 247, with neutrophils of 51%. Sodium 132, potassium 3.1, chloride 97, bicarb 40, BUN 86, creatinine 2.1, glucose 299, calcium 9.6. Total bilirubin 0.4. AST 18, ALT 32, and alkaline phosphatase 161. Total protein 7.8, albumin 2.6. UA showing too numerous to count white cells. Chest x-ray is showing bilateral interstitial edema, anterior inferior dislocation of the right humeral head. ASSESSMENT: 1. Urinary tract infection. 2. Possible Pneumonia 3. Renal failure. 4. Hypertension. 5. Congestive heart failure. 6. Seizure History 7. Diabetes PLAN: 1. Antibiotics per ID. 2. Diurese PRN 3. O2 PRN 4. HHN 5. Aspiration Precautions 6. Monitor labs 7. PPX 8. Monitor cultures Subjective ROS Limited/Unobtainable: No Allergies: Coded Allergies: No Known Allergies (Verified , 12/31/09) Objective Last 24 Hour Vital Signs Date Time Temp Pulse Resp B/P (MAP) Pulse Ox O2 Delivery O2 Flow Rate FiO2 10/15/19 16:25 73 10/15/19 16:00 97.9 71 18 138/74 (95) 100 10/15/19 15:09 68 16 100 Nasal Cannula 2.0 28 65 16 100 10/15/19 12:00 97.9 62 16 105/54 (71) 100 10/15/19 11:56 66 10/15/19 11:09 65 18 100 Nasal Cannula 4.0 36 62 20 100 10/15/19 10:57 100 Nasal Cannula 4.0 36 10/15/19 10:57 62 20 100 Nasal Cannula 4.0 36 10/15/19 09:00 Nasal Cannula 4.0 10/15/19 08:00 97.7 66 14 99/60 (73) 100 10/15/19 07:49 68 10/15/19 06:18 Room Air 10/15/19 04:57 79 10/15/19 04:30 97.3 79 18 112/57 100 Nasal Cannula 4.0 36 10/15/19 04:09 97.3 79 18 112/57 100 Nasal Cannula 4.0 36 10/15/19 02:00 97.3 84 22 141/87 100 Nasal Cannula 4.0 36 10/15/19 00:30 75 14 100 Nasal Cannula 4.0 36 72 14 100 10/15/19 00:00 97.3 78 15 123/77 98 Nasal Cannula 4.0 10/14/19 23:59 78 15 Nasal Cannula 2.0 10/14/19 23:52 97.3 78 15 123/77 98 Nasal Cannula 2.0 10/14/19 23:49 97.3 76 20 124/70 (88) 98 Nasal Cannula 3.0 Intake and Output 10/14/19 10/15/19 19:00 07:00 Intake Total 0 ml Balance 0 ml Intake Oral 0 ml # Bowel Movements 1 Laboratory Tests 10/15/19 00:48: White Blood Count 5.7, Red Blood Count 3.36L, Hemoglobin 9.5L, Hematocrit 29.3L , Mean Corpuscular Volume 87, Mean Corpuscular Hemoglobin 28.2, Mean Corpuscular Hemoglobin Concent 32.4, Red Cell Distribution Width 15.9H, Platelet Count 247, Mean Platelet Volume 6.4L, Neutrophils (%) (Auto) 51.4, Lymphocytes (%) (Auto) 29.2, Monocytes (%) (Auto) 14.0H, Eosinophils (%) (Auto) 4.8H, Basophils (%) (Auto) 0.6, Sodium Level 139, Potassium Level 3.0L, Chloride Level 94L, Carbon Dioxide Level 39H, Anion Gap 6, Blood Urea Nitrogen 90H, Creatinine 2.2H, Estimat Glomerular Filtration Rate , Glucose Level 332H, Calcium Level 9.4, Total Bilirubin 0.4, Aspartate Amino Transf (AST/SGOT) 21, Alanine Aminotransferase (ALT/SGPT) 34, Alkaline Phosphatase 175H, Troponin I 0.000, Pro-B-Type Natriuretic Peptide 1455H, Total Protein 8.1, Albumin 2.8L, Globulin 5.3, Albumin/Globulin Ratio 0.5L 10/15/19 02:00: Urine Color Pale yellow, Urine Appearance Cloudy, Urine pH 6.5, Urine Specific Ferdinand 1.005, Urine Protein 2+H, Urine Glucose (UA) 3+H, Urine Ketones Negative , Urine Blood 3+H, Urine Nitrite Negative, Urine Bilirubin Negative, Urine Urobilinogen Normal, Urine Leukocyte Esterase 3+H, Urine RBC 10-15H, Urine WBC TntcH, Urine Squamous Epithelial Cells Few, Urine Bacteria ModerateH, Urine Yeast ManyH 10/15/19 07:50: Sodium Level 142, Potassium Level 3.1L, Chloride Level 97L, Carbon Dioxide Level 40H, Anion Gap 5, Blood Urea Nitrogen 86H, Creatinine 2.1H, Estimat Glomerular Filtration Rate , Glucose Level 299H, Calcium Level 9.6, Total Bilirubin 0.4, Aspartate Amino Transf (AST/SGOT) 18, Alanine Aminotransferase ( ALT/SGPT) 32, Alkaline Phosphatase 161H, Total Protein 7.8, Albumin 2.6L, Globulin 5.2, Albumin/Globulin Ratio 0.5L Current Medications Medications (Trade) Dose Ordered Sig/Aaron Route PRN Reason Start Time Stop Time Status Last Admin Dose Admin Albuterol/ Ipratropium (Albuterol/ Ipratropium) 3 ml QIDRT HHN 10/15/19 11:00 10/20/19 10:59 10/15/19 14:59 Aspirin (ASA) 81 mg DAILY GT 10/15/19 09:00 11/14/19 08:59 10/15/19 08:46 Clonidine HCl (Catapres Tab) 0.1 mg EVERY 6 HOURS PRN GT SBP>160 10/15/19 07:30 11/14/19 07:29 Dextrose/Sodium Chloride 1,000 ml @ 100 mls/hr Q10H IV 10/15/19 08:00 11/14/19 07:59 10/15/19 08:46 Gabapentin (Neurontin) 100 mg BID@0900,2100 GT 10/15/19 09:00 11/14/19 08:59 10/15/19 08:46 Heparin Sodium (Porcine) (Heparin 5000 units/ml) 5,000 units EVERY 12 HOURS SUBQ 10/15/19 09:00 11/14/19 08:59 10/15/19 08:47 Lactulose (Cephulac) 20 gm DAILYPRN PRN GT Constipation 10/15/19 07:30 11/14/19 07:29 Lansoprazole (Prevacid) 30 mg DAILY GT 10/15/19 09:00 11/14/19 08:59 10/15/19 08:46 Levetiracetam (Keppra) 1,000 mg BID@0900,2100 GT 10/15/19 09:00 11/14/19 08:59 10/15/19 08:46 Levothyroxine Sodium (Synthroid) 75 mcg DAILY@0630 GT 10/16/19 06:30 11/15/19 06:29 Magnesium Hydroxide (Mom) 30 ml DAILY PRN GT Constipation 10/15/19 07:30 11/14/19 07:29 Piperacillin Sod/ Tazobactam Sod 3.375 gm/Sodium Chloride 110 ml @ 27.5 mls/hr Q12HR IVPB 10/15/19 09:00 10/22/19 08:59 10/15/19 08:46 Polyethylene Glycol (Miralax) 17 gm BEDTIME GT 10/15/19 21:00 11/14/19 20:59 Kavon Seals MD Oct 15, 2019 19:51
[2019-10-15] MEDS: Miralax 17gm pkt GT SCH (21:00)
[2019-10-16] VITALS: BP 140/69
[2019-10-16 04:00] VITALS: BP 137/88
[2019-10-16] MEDS: D5NS 1,000 ML IV SCH ×3 (04:00→23:19)
--- NOTE | 2019-10-16 07:24 | NUR ---
HAND-OFF: Report given to Karen GEIGER.
--- NOTE | 2019-10-16 07:43 | NUR ---
NURSE NOTES: Received report from FELY Bhatia. PT in bed, nonverbal,obtunded, opens eyes to verbal stimuli and will look when name is called, pt has G-tube with feeds off as there is a cut in the G-tube, primary MD Crowder aware, pt has large amount of oral secretions, RN provided oral suctioning, and repositioned pt, O2 saturation up to 94% on 3L NC, bed in lowest position, call light within reach. Dr. Crowder in room, notified him of large amount of saliva and need for suctioning, Md also stated he contacted Dr. Griffith regarding G-tube
[2019-10-16 08:00] VITALS: BP 154/91
[2019-10-16] MEDS: Albuterol/Ipratropium 3ml neb HHN SCH ×4 (08:27→20:12)
[2019-10-16] MEDS ORDERED: Metoclopramide 10mg/2ml Inj IVP PRN (08:45)
--- NOTE | 2019-10-16 09:00 | NUR ---
NURSE NOTES: Dr. Sims change gtube at bedside. Immediately upon removal of old gtube, a large amount of greenish fluid came out, new gtube place, RN told to manually suction until it stopped and then restart feeds slowly. MD will order Reglan to be given Addendum: 10/16/19 at 1819 by ANASTASIA VELEZ RN NURSE NOTES: RN read Dr. Levi MD stated feeds goal are 60cc/hr, but order is for 30cc/hr and Reglan was ordered as a PRN. RN made MD aware and asked about changing orders
[2019-10-16] MEDS: levETIRAcetam 500mg/5ml Liquid GT SCH ×2 (09:17→22:07)
[2019-10-16] MEDS: Aspirin Baby 81mg GT SCH (09:17)
[2019-10-16] MEDS: Piperacillin/Tazobactam 3.375 GM in NS 110 ML IVPB SCH ×2 (09:18→22:07)
[2019-10-16] MEDS: Heparin 5000 units/ml inj SUBQ SCH ×2 (09:20→21:00)
--- NOTE | 2019-10-16 11:41 | Infectious Diseases Prog Note ---
Assessment/Plan Assessment/Plan A; 1. Urinary tract infection. 2. Acute renal failure. 3. Hypertension. 4. Congestive heart failure. 5. Anemia PLAN: 1. Continue Zosyn. 2. We will follow urine culture. Subjective ROS Limited/Unobtainable: Yes Constitutional: Denies: fever Allergies: Coded Allergies: No Known Allergies (Verified , 12/31/09) Objective Vital Signs Last 24 Hour Vital Signs Date Time Temp Pulse Resp B/P (MAP) Pulse Ox O2 Delivery O2 Flow Rate FiO2 10/16/19 09:00 Nasal Cannula 2.0 10/16/19 08:59 85 10/16/19 08:23 99 Nasal Cannula 2.0 28 10/16/19 08:23 76 24 100 Nasal Cannula 2.0 28 79 24 99 10/16/19 08:00 97.7 82 21 154/91 (112) 98 10/16/19 04:00 75 10/16/19 04:00 97.7 76 20 137/88 (104) 100 10/16/19 00:00 97.9 72 20 140/69 (92) 100 10/16/19 00:00 73 10/15/19 21:00 Nasal Cannula 4.0 10/15/19 20:00 97.9 80 20 160/96 (117) 100 10/15/19 19:46 100 2.0 28 10/15/19 19:46 77 18 100 Nasal Cannula 2.0 28 75 18 100 10/15/19 16:25 73 10/15/19 16:00 97.9 71 18 138/74 (95) 100 10/15/19 15:09 68 16 100 Nasal Cannula 2.0 28 65 16 100 10/15/19 12:00 97.9 62 16 105/54 (71) 100 10/15/19 11:56 66 Height (Feet): 5 Height (Inches): 0.00 Weight (Pounds): 145 HEENT: mucous membranes moist Respiratory/Chest: lungs clear, other - oxygen by nasal cannula Cardiovascular: normal rate Abdomen: soft, non tender, other - GT feeding Extremities: no edema Skin: other - left hip erythema Neurologic/Psychiatric: disoriented, aphasia, other - opens eyes Microbiology Date/Time Source Procedure Growth Status 10/15/19 02:00 Urine,Clean Catch Urine Culture - Preliminary Resulted Current Medications Medications (Trade) Dose Ordered Sig/Aaron Route PRN Reason Start Time Stop Time Status Last Admin Dose Admin Albuterol/ Ipratropium (Albuterol/ Ipratropium) 3 ml QIDRT HHN 10/15/19 11:00 10/20/19 10:59 10/16/19 08:27 Aspirin (ASA) 81 mg DAILY GT 10/15/19 09:00 11/14/19 08:59 10/16/19 09:17 Clonidine HCl (Catapres Tab) 0.1 mg EVERY 6 HOURS PRN GT SBP>160 10/15/19 07:30 11/14/19 07:29 Dextrose/Sodium Chloride 1,000 ml @ 100 mls/hr Q10H IV 10/15/19 08:00 11/14/19 07:59 10/15/19 08:46 Gabapentin (Neurontin) 100 mg BID@0900,2100 GT 10/15/19 09:00 11/14/19 08:59 10/16/19 09:17 Heparin Sodium (Porcine) (Heparin 5000 units/ml) 5,000 units EVERY 12 HOURS SUBQ 10/15/19 09:00 11/14/19 08:59 10/16/19 09:20 Lactulose (Cephulac) 20 gm DAILYPRN PRN GT Constipation 10/15/19 07:30 11/14/19 07:29 Lansoprazole (Prevacid) 30 mg DAILY GT 10/15/19 09:00 11/14/19 08:59 10/16/19 09:17 Levetiracetam (Keppra) 1,000 mg BID@0900,2100 GT 10/15/19 09:00 11/14/19 08:59 10/16/19 09:17 Levothyroxine Sodium (Synthroid) 75 mcg DAILY@0630 GT 10/16/19 06:30 11/15/19 06:29 Magnesium Hydroxide (Mom) 30 ml DAILY PRN GT Constipation 10/15/19 07:30 11/14/19 07:29 Metoclopramide HCl (Reglan) 2.5 mg Q8H PRN IVP Nausea & Vomiting 10/16/19 08:45 11/15/19 08:44 Piperacillin Sod/ Tazobactam Sod 3.375 gm/Sodium Chloride 110 ml @ 27.5 mls/hr Q12HR IVPB 2/8/20 09:00 10/22/19 08:59 10/16/19 09:18 Polyethylene Glycol (Miralax) 17 gm BEDTIME GT 10/15/19 21:00 11/14/19 20:59 Bay Richter MD Oct 16, 2019 11:41
[2019-10-16 12:00] VITALS: BP 126/94
--- NOTE | 2019-10-16 13:49 | General Progress Note ---
Assessment/Plan Problem List: (1) Diabetes mellitus ICD Codes: E11.9 - Type 2 diabetes mellitus without complications SNOMED: 49794859 (2) Encephalopathy acute ICD Codes: G93.40 - Encephalopathy, unspecified SNOMED: 1506928 (3) Pneumonia ICD Codes: J18.9 - Pneumonia, unspecified organism SNOMED: 913586469 (4) HTN (hypertension) ICD Codes: I10 - Essential (primary) hypertension SNOMED: 86434894 (5) CHF (congestive heart failure) ICD Codes: I50.9 - Heart failure, unspecified SNOMED: 02112463 Qualifiers: Qualified Codes: I50.9 - Heart failure, unspecified (6) ARF (acute renal failure) ICD Codes: N17.9 - Acute kidney failure, unspecified SNOMED: 39855245 Qualifiers: Qualified Codes: N17.9 - Acute kidney failure, unspecified Status: stable Assessment/Plan: resp care suctioning iv abx iv abx follow up cultures gi eval ct chest Subjective ROS Limited/Unobtainable: Yes Constitutional: Reports: malaise, weakness HEENT: Reports: no symptoms Cardiovascular: Reports: no symptoms Respiratory: Reports: cough, shortness of breath, sputum Gastrointestinal/Abdominal: Reports: difficulty swallowing Genitourinary: Reports: no symptoms Neurologic/Psychiatric: Reports: pre-existing deficit, seizure Endocrine: Reports: no symptoms Hematologic/Lymphatic: Reports: anemia Allergies: Coded Allergies: No Known Allergies (Verified , 12/31/09) All Systems: reviewed and negative except above Subjective no events. still very congested. copious secretions. gt torn Objective Last 24 Hour Vital Signs Date Time Temp Pulse Resp B/P (MAP) Pulse Ox O2 Delivery O2 Flow Rate FiO2 10/16/19 12:00 97.9 85 20 126/94 (105) 97 10/16/19 11:34 84 24 100 Nasal Cannula 2.0 28 82 24 100 10/16/19 11:34 84 10/16/19 09:00 Nasal Cannula 2.0 10/16/19 08:59 85 10/16/19 08:23 99 Nasal Cannula 2.0 28 10/16/19 08:23 76 24 100 Nasal Cannula 2.0 28 79 24 99 10/16/19 08:00 97.7 82 21 154/91 (112) 98 10/16/19 04:00 75 10/16/19 04:00 97.7 76 20 137/88 (104) 100 10/16/19 00:00 97.9 72 20 140/69 (92) 100 10/16/19 00:00 73 10/15/19 21:00 Nasal Cannula 4.0 10/15/19 20:00 97.9 80 20 160/96 (117) 100 10/15/19 19:46 100 2.0 28 10/15/19 19:46 77 18 100 Nasal Cannula 2.0 28 75 18 100 10/15/19 16:25 73 10/15/19 16:00 97.9 71 18 138/74 (95) 100 10/15/19 15:09 68 16 100 Nasal Cannula 2.0 28 65 16 100 Intake and Output 10/15/19 10/16/19 19:00 07:00 Intake Total 1383.333 ml 0 ml Output Total 1100 ml Balance 1383.333 ml -1100 ml IV Total 933.333 ml Tube Feeding 150 ml 0 ml Other 300 ml Output Urine Total 1100 ml Height (Feet): 5 Height (Inches): 0.00 Weight (Pounds): 145 General Appearance: WD/WN, lethargic, confused Neck: supple Cardiovascular: normal rate, regular rhythm Respiratory/Chest: crackles/rales, rhonchi - bilaterally Abdomen: normal bowel sounds, non tender, soft, no organomegaly Edema: no edema noted Arm (L), no edema noted Arm (R), no edema noted Leg (L), no edema noted Leg (R), no edema noted Pedal (L), no edema noted Pedal (R), no edema noted Generalized Neurologic: disoriented, unresponsive, aphasia Jeffrey Crowder MD Oct 16, 2019 13:49
[2019-10-16 16:00] VITALS: BP 142/88
--- NOTE | 2019-10-16 17:15 | Consultation ---
DATE OF CONSULTATION: 10/16/2019 CONSULTING PHYSICIAN: Eder Sims M.D. CHIEF COMPLAINT: Malfunctioning G-tube. HISTORY OF PRESENT ILLNESS: This is an 79-year-old female with history of diabetes, renal insufficiency, and seizure disorder, came to the hospital with evidence of respiratory distress and congestion. The patient had a malfunctioning G-tube. GI consult requested for evaluation. PAST MEDICAL HISTORY: 1. Diabetes. 2. Pneumonia. 3. Renal insufficiency. 4. CHF. 5. Hypertension. ALLERGIES: No known drug allergies. MEDICATIONS: Please see medication reconciliation list. SOCIAL HISTORY: Currently lives in a half-way. No recent history of tobacco, alcohol, or drug abuse. FAMILY HISTORY: Noncontributory. REVIEW OF SYSTEMS: Unable to obtain. PHYSICAL EXAMINATION: VITAL SIGNS: Temperature 97.7, pulse 76, respirations 20, and blood pressure 137/88. HEENT: Normocephalic and atraumatic. Sclerae anicteric. NECK: Supple. No evidence of obvious lymphadenopathy. CARDIOVASCULAR: Tachy. Regular rate. Plus S1 and S2. LUNGS: Decreased breath sounds bilaterally, diffusely. The patient is in mild respiratory distress with oxygen mask on her. ABDOMEN: Soft. G-tube in place. No rebound. No guarding. No peritoneal sign. EXTREMITIES: No cyanosis. No clubbing. LABORATORY DATA: White count is 5.7, hemoglobin 9.5, hematocrit 29, and platelet count 247,000. Chem-7, sodium 142, potassium 3.1, BUN 86, creatinine 2.1. Glucose is 299. ASSESSMENT: This is an 79-year-old female with numerous medical problems. From a GI standpoint, the patient has anemia, dysphagia, and malfunctioning G-tube. PLAN: G-tube was changed at the bedside. A 22-Brazilian was placed at the old G-tube site. As soon as we took the old G-tube out, there was a lot of greenish fluid came out suggestive of possibility of fluid retention, possibly gastroparesis given sugars of 299. I told the nurse at the bedside to suction the G-tube. When it is empty, start the tube feeding slowly Glucerna or Glytrol for goal of 60. Meanwhile, we are going to start the patient on low-dose Reglan given this evidence of possible gastroparesis and so much fluid in the stomach. We are going to order anemia workup, replace the potassium, and follow with the Pulmonology and ID. Eder Sims M.D. DR: MALLY JOB#: [id number] CC:
--- NOTE | 2019-10-16 19:41 | NUR ---
HAND-OFF: Report given to FELY Velazco.
--- NOTE | 2019-10-16 19:45 | NUR ---
NURSE NOTES: Received report from Karen Bueno RN. Pt in stable condition, denies pain at this time, SR. Will continue plan of care and close monitoring.
[2019-10-16 20:00] VITALS: BP 158/73
--- NOTE | 2019-10-16 20:49 | Pulmonology Progress Note ---
Assessment/Plan Assessment/Plan Pulmonary Progress Note HPI: Patient is an 79-year-old woman with history of Diabetes, Renal failure, Seizures, admitted with cough, congestion and respiratory distress, felt to have possible Pneumonia No overnight issues PAST MEDICAL HISTORY: 1. History of diabetes. 2. Pneumonia. 3. Renal failure. 4. Congestive heart failure. 5. Hypertension 6. Hypothyroidism 7. Previous G tube MEDICATIONS: Levothyroxine, MiraLAX, vancomycin, albuterol, ipratropium, gabapentin, subcutaneous heparin, Keppra, Zosyn, aspirin, lansoprazole, clonidine, lactulose, MOM ALLERGIES: No known drug allergies. PHYSICAL EXAMINATION: VITAL SIGNS NOTED: HEENT: NCAT. Moist mm NECK: Supple. No adenopathy. No JVD. CARDIOVASCULAR: Regular rate and rhythm. No murmurs. LUNGS: Clear to auscultation bilaterally. No crackles. No wheezes. ABDOMEN: Soft and nontender. No organomegaly. G-tube site is clean. EXTREMITIES: No cyanosis, no clubbing. Mild edema noted bilaterally. LABORATORY STUDIES NOTED: White count 5.7, hemoglobin 9.5, hematocrit 29.3, MCV 87, platelet count 247, with neutrophils of 51%. Sodium 132, potassium 3.1, chloride 97, bicarb 40, BUN 86, creatinine 2.1, glucose 299, calcium 9.6. Total bilirubin 0.4. AST 18, ALT 32, and alkaline phosphatase 161. Total protein 7.8, albumin 2.6. UA showing too numerous to count white cells. Chest x-ray is showing bilateral interstitial edema, anterior inferior dislocation of the right humeral head. ASSESSMENT: 1. Urinary tract infection. 2. Possible Pneumonia 3. Renal failure. 4. Hypertension. 5. Congestive heart failure. 6. Seizure History 7. Diabetes PLAN: 1. Antibiotics per ID. 2. Diurese PRN 3. O2 PRN 4. HHN 5. Aspiration Precautions 6. Monitor labs 7. PPX 8. Monitor cultures Subjective ROS Limited/Unobtainable: No Allergies: Coded Allergies: No Known Allergies (Verified , 12/31/09) Objective Last 24 Hour Vital Signs Date Time Temp Pulse Resp B/P (MAP) Pulse Ox O2 Delivery O2 Flow Rate FiO2 10/16/19 20:22 85 22 100 Nasal Cannula 2.0 28 10/16/19 20:12 76 20 100 Nasal Cannula 2.0 28 2/9/20 20:12 100 Nasal Cannula 2.0 28 10/16/19 16:46 75 10/16/19 16:00 97.7 77 20 142/88 (106) 100 10/16/19 15:19 84 24 100 Nasal Cannula 2.0 28 75 24 95 10/16/19 12:00 97.9 85 20 126/94 (105) 97 10/16/19 11:34 84 24 100 Nasal Cannula 2.0 28 82 24 100 10/16/19 11:34 84 10/16/19 09:00 Nasal Cannula 2.0 10/16/19 08:59 85 10/16/19 08:23 99 Nasal Cannula 2.0 28 10/16/19 08:23 76 24 100 Nasal Cannula 2.0 28 79 24 99 10/16/19 08:00 97.7 82 21 154/91 (112) 98 10/16/19 04:00 75 10/16/19 04:00 97.7 76 20 137/88 (104) 100 10/16/19 00:00 97.9 72 20 140/69 (92) 100 10/16/19 00:00 73 10/15/19 21:00 Nasal Cannula 4.0 Intake and Output 10/15/19 10/16/19 19:00 07:00 Intake Total 1383.333 ml 0 ml Output Total 1100 ml Balance 1383.333 ml -1100 ml IV Total 933.333 ml Tube Feeding 150 ml 0 ml Other 300 ml Output Urine Total 1100 ml Microbiology Date/Time Source Procedure Growth Status 10/15/19 02:00 Urine,Clean Catch Urine Culture - Preliminary Resulted Current Medications Medications (Trade) Dose Ordered Sig/Aaron Route PRN Reason Start Time Stop Time Status Last Admin Dose Admin Albuterol/ Ipratropium (Albuterol/ Ipratropium) 3 ml QIDRT HHN 10/15/19 11:00 10/20/19 10:59 10/16/19 20:12 Aspirin (ASA) 81 mg DAILY GT 10/15/19 09:00 11/14/19 08:59 10/16/19 09:17 Atropine Sulfate (Atropine Opth Jami) 1 drop TID LEFT EYE 10/16/19 14:00 11/15/19 13:59 10/16/19 17:04 Clonidine HCl (Catapres Tab) 0.1 mg EVERY 6 HOURS PRN GT SBP>160 10/15/19 07:30 11/14/19 07:29 Dextrose/Sodium Chloride 1,000 ml @ 100 mls/hr Q10H IV 10/15/19 08:00 11/14/19 07:59 10/16/19 12:52 Gabapentin (Neurontin) 100 mg BID@0900,2100 GT 10/15/19 09:00 11/14/19 08:59 10/16/19 09:17 Heparin Sodium (Porcine) (Heparin 5000 units/ml) 5,000 units EVERY 12 HOURS SUBQ 10/15/19 09:00 11/14/19 08:59 10/16/19 09:20 Lactulose (Cephulac) 20 gm DAILYPRN PRN GT Constipation 10/15/19 07:30 11/14/19 07:29 Lansoprazole (Prevacid) 30 mg DAILY GT 10/15/19 09:00 11/14/19 08:59 10/16/19 09:17 Levetiracetam (Keppra) 1,000 mg BID@0900,2100 GT 10/15/19 09:00 11/14/19 08:59 10/16/19 09:17 Levothyroxine Sodium (Synthroid) 75 mcg DAILY@0630 GT 10/16/19 06:30 11/15/19 06:29 Magnesium Hydroxide (Mom) 30 ml DAILY PRN GT Constipation 10/15/19 07:30 11/14/19 07:29 Metoclopramide HCl (Reglan) 2.5 mg Q8H IVP 10/17/19 00:45 11/15/19 08:44 Piperacillin Sod/ Tazobactam Sod 3.375 gm/Sodium Chloride 110 ml @ 27.5 mls/hr Q12HR IVPB 10/15/19 09:00 10/22/19 08:59 10/16/19 09:18 Polyethylene Glycol (Miralax) 17 gm BEDTIME GT 10/15/19 21:00 11/14/19 20:59 Kavon Seals MD Oct 16, 2019 20:49
[2019-10-16] MEDS: Miralax 17gm pkt GT SCH (22:08)
[2019-10-17] VITALS: BP 125/81
[2019-10-17] MEDS: Metoclopramide 10mg/2ml Inj IVP SCH ×3 (00:28→16:49)
[2019-10-17 04:00] VITALS: BP 131/57
--- NOTE | 2019-10-17 06:15 | NUR ---
NURSE NOTES: Informed Dr. Crowder of pt's intolerance to GT feeding. GT feeding turned off at about 2130, 60ml residuals Addendum: 10/17/19 at 0729 by Monique Velazco RN NURSE NOTES: Residuals were 60mls after checking 3 times during shift.
--- NOTE | 2019-10-17 07:13 | NUR ---
HAND-OFF: Report given to Karen Bueno RN. Pt in stable condition, no signs or symptoms of pain noted at this time, SR. Will continue plan of care and close monitoring. .
[2019-10-17 07:29] LABS: BASOPHILS % (AUTO) 0.5 % (0.0-2.0); EOSINOPHILS % (AUTO) 1.9 % (0.0-3.0); HEMATOCRIT 28.8 % (37.0-47.0); HEMOGLOBIN 8.9 G/DL (12.0-16.0); LYMPHOCYTES % (AUTO) 11.6 % (20.0-45.0); MEAN CORPUSCULAR VOLUME 91 FL (80-99); MONOCYTES % (AUTO) 11.6 % (1.0-10.0); NEUTROPHILS % (AUTO) 74.4 % (45.0-75.0); PLATELET COUNT 237 K/UL (150-450); RED BLOOD COUNT 3.17 M/UL (4.20-5.40); RED CELL DISTRIBUTION WIDTH 15.7 % (11.6-14.8); WHITE BLOOD COUNT 10.2 K/UL (4.8-10.8)
--- NOTE | 2019-10-17 07:33 | NUR ---
NURSE NOTES: Received report from FELY Amaya. pt in bed, asleep, respirations regular and unlabore SpO2 at 98% onn 2L NC, pt is nonverbal, with G-tube, feeds off as pt did not tolerate through the night, PMD aware, GI to see pt this am, IV site in tact and running IVF according to order, bed in lowest position, call light within reach.
[2019-10-17] MEDS: Albuterol/Ipratropium 3ml neb HHN SCH ×4 (07:45→18:52)
[2019-10-17 07:47] LABS: ALANINE AMINOTRANSFERASE 26 U/L (12-78); ALBUMIN 2.3 G/DL (3.4-5.0); ALBUMIN/GLOBULIN RATIO 0.5 (1.0-2.7); ALKALINE PHOSPHATASE 122 U/L (46-116); ANION GAP 4 mmol/L (5-15); ASPARTATE AMINO TRANSFERASE 13 U/L (15-37); BILIRUBIN,TOTAL 0.3 MG/DL (0.2-1.0); BLOOD UREA NITROGEN 47 mg/dL (7-18); CALCIUM 8.8 MG/DL (8.5-10.1); CARBON DIOXIDE 36 MMOL/L (21-32); CHLORIDE 112 MMOL/L (98-107); CREATININE 1.8 MG/DL (0.55-1.30); POTASSIUM 3.5 MMOL/L (3.5-5.1); SODIUM 152 MMOL/L (136-145)
[2019-10-17 07:56] LABS: IRON 21 ug/dL (50-175); TOTAL IRON BINDING CAPACITY 183 ug/dL (250-450)
[2019-10-17 07:57] LABS: % IRON SATURATION 11 % (15-50)
[2019-10-17 08:00] VITALS: BP 133/65
--- NOTE | 2019-10-17 08:33 | Pulmonology Progress Note ---
Assessment/Plan Assessment/Plan 1. Urinary tract infection. 2. doubt Pneumonia 3. Renal failure. 4. Hypertension. 5. Congestive heart failure. 6. Seizure History 7. Diabetes 8. Hypernatremia 9. EDGAR PLAN hypotonic fluids repeat imaging off antibiotics monitor fluid status meds noted oxygen as is respiratory care as is close followup impression, plan, and exam edited and reviewed in detail care discussed with RN Subjective Allergies: Coded Allergies: No Known Allergies (Verified , 12/31/09) Subjective care noted and reviewed over the weekend Objective Last 24 Hour Vital Signs Date Time Temp Pulse Resp B/P (MAP) Pulse Ox O2 Delivery O2 Flow Rate FiO2 10/17/19 08:07 Nasal Cannula 2.0 10/17/19 07:45 100 Nasal Cannula 2.0 28 10/17/19 07:45 62 20 100 Nasal Cannula 2.0 28 64 20 100 10/17/19 04:00 98.5 74 26 131/57 (81) 100 10/17/19 04:00 73 10/17/19 00:00 77 10/17/19 00:00 97.6 76 18 125/81 (96) 100 10/16/19 21:00 Nasal Cannula 2.0 10/16/19 20:22 85 22 100 Nasal Cannula 2.0 28 10/16/19 20:12 76 20 100 Nasal Cannula 2.0 28 10/16/19 20:12 100 Nasal Cannula 2.0 28 10/16/19 20:00 98.0 78 18 158/73 (101) 100 10/16/19 20:00 79 10/16/19 16:46 75 10/16/19 16:00 97.7 77 20 142/88 (106) 100 10/16/19 15:19 84 24 100 Nasal Cannula 2.0 28 75 24 95 10/16/19 12:00 97.9 85 20 126/94 (105) 97 10/16/19 11:34 84 24 100 Nasal Cannula 2.0 28 82 24 100 10/16/19 11:34 84 10/16/19 09:00 Nasal Cannula 2.0 10/16/19 08:59 85 Intake and Output 10/16/19 10/17/19 19:00 07:00 Intake Total 30 ml Output Total 350 ml 600 ml Balance -320 ml -600 ml Tube Feeding 30 ml Output Urine Total 600 ml Gastric Drainage Total 350 ml # Voids 4 # Bowel Movements 3 1 Objective WDWN NAD reduced breath sounds bilaterally without rhonchi or wheeze [id number] without MRG NABS nontender no HSM no CCE nonfocal Microbiology Date/Time Source Procedure Growth Status 10/15/19 02:00 Urine,Clean Catch Urine Culture - Preliminary Gram Negative Bacillus 1 Resulted Laboratory Tests 10/17/19 06:35: White Blood Count 10.2, Red Blood Count 3.17L, Hemoglobin 8.9L, Hematocrit 28.8L , Mean Corpuscular Volume 91, Mean Corpuscular Hemoglobin 28.2, Mean Corpuscular Hemoglobin Concent 31.1L, Red Cell Distribution Width 15.7H, Platelet Count 237, Mean Platelet Volume 6.3L, Neutrophils (%) (Auto) 74.4, Lymphocytes (%) (Auto) 11.6L, Monocytes (%) (Auto) 11.6H, Eosinophils (%) (Auto ) 1.9, Basophils (%) (Auto) 0.5, Sodium Level 152H, Potassium Level 3.5, Chloride Level 112H, Carbon Dioxide Level 36H, Anion Gap 4L, Blood Urea Nitrogen 47H, Creatinine 1.8H, Estimat Glomerular Filtration Rate , Glucose Level 447H, Calcium Level 8.8, Iron Level 21L, Total Iron Binding Capacity 183L , Percent Iron Saturation 11L, Unsaturated Iron Binding 162, Total Bilirubin 0.3 , Aspartate Amino Transf (AST/SGOT) 13L, Alanine Aminotransferase (ALT/SGPT) 26 , Alkaline Phosphatase 122H, Total Protein 7.2, Albumin 2.3L, Globulin 4.9, Albumin/Globulin Ratio 0.5L Current Medications Medications (Trade) Dose Ordered Sig/Aaron Route PRN Reason Start Time Stop Time Status Last Admin Dose Admin Albuterol/ Ipratropium (Albuterol/ Ipratropium) 3 ml QIDRT HHN 10/15/19 11:00 10/20/19 10:59 10/17/19 07:45 Aspirin (ASA) 81 mg DAILY GT 10/15/19 09:00 11/14/19 08:59 10/16/19 09:17 Atropine Sulfate (Atropine Opth Jami) 1 drop TID LEFT EYE 10/16/19 14:00 11/15/19 13:59 10/16/19 17:04 Clonidine HCl (Catapres Tab) 0.1 mg EVERY 6 HOURS PRN GT SBP>160 10/15/19 07:30 11/14/19 07:29 Dextrose/Sodium Chloride 1,000 ml @ 100 mls/hr Q10H IV 10/15/19 08:00 11/14/19 07:59 10/16/19 23:19 Gabapentin (Neurontin) 100 mg BID@0900,2100 GT 10/15/19 09:00 11/14/19 08:59 10/16/19 22:08 Heparin Sodium (Porcine) (Heparin 5000 units/ml) 5,000 units EVERY 12 HOURS SUBQ 10/15/19 09:00 11/14/19 08:59 10/16/19 09:20 Lactulose (Cephulac) 20 gm DAILYPRN PRN GT Constipation 10/15/19 07:30 11/14/19 07:29 Lansoprazole (Prevacid) 30 mg DAILY GT 10/15/19 09:00 11/14/19 08:59 10/16/19 09:17 Levetiracetam (Keppra) 1,000 mg BID@0900,2100 GT 10/15/19 09:00 11/14/19 08:59 10/16/19 22:07 Levothyroxine Sodium (Synthroid) 75 mcg DAILY@0630 GT 10/16/19 06:30 11/15/19 06:29 10/17/19 06:13 Magnesium Hydroxide (Mom) 30 ml DAILY PRN GT Constipation 10/15/19 07:30 11/14/19 07:29 Metoclopramide HCl (Reglan) 2.5 mg Q8H IVP 10/17/19 00:45 11/15/19 08:44 10/17/19 00:28 Piperacillin Sod/ Tazobactam Sod 3.375 gm/Sodium Chloride 110 ml @ 27.5 mls/hr Q12HR IVPB 10/15/19 09:00 10/22/19 08:59 10/16/19 22:07 Polyethylene Glycol (Miralax) 17 gm BEDTIME GT 10/15/19 21:00 11/14/19 20:59 10/16/19 22:08 Torey Douglass MD Oct 17, 2019 08:32
--- NOTE | 2019-10-17 08:49 | General Progress Note ---
Assessment/Plan Problem List: (1) Diabetes mellitus ICD Codes: E11.9 - Type 2 diabetes mellitus without complications SNOMED: 68138441 (2) Encephalopathy acute ICD Codes: G93.40 - Encephalopathy, unspecified SNOMED: 9491535 (3) Pneumonia ICD Codes: J18.9 - Pneumonia, unspecified organism SNOMED: 544308844 (4) HTN (hypertension) ICD Codes: I10 - Essential (primary) hypertension SNOMED: 82043995 (5) CHF (congestive heart failure) ICD Codes: I50.9 - Heart failure, unspecified SNOMED: 51658612 Qualifiers: Qualified Codes: I50.9 - Heart failure, unspecified (6) ARF (acute renal failure) ICD Codes: N17.9 - Acute kidney failure, unspecified SNOMED: 42555454 Qualifiers: Qualified Codes: N17.9 - Acute kidney failure, unspecified Status: stable Assessment/Plan: resp care suctioning iv abx hypotonic ivf added gllycopyrolate and atropine drops reglan follow up cultures gi eval appreciated ct chest Subjective ROS Limited/Unobtainable: No Constitutional: Reports: malaise, weakness HEENT: Reports: no symptoms Cardiovascular: Reports: no symptoms Gastrointestinal/Abdominal: Reports: no symptoms Genitourinary: Reports: no symptoms Neurologic/Psychiatric: Reports: seizure, weakness Endocrine: Reports: no symptoms Hematologic/Lymphatic: Reports: no symptoms Allergies: Coded Allergies: No Known Allergies (Verified , 12/31/09) All Systems: reviewed and negative except above Subjective still very congested. not tolerating feeds. high residuals. Na up. Objective Last 24 Hour Vital Signs Date Time Temp Pulse Resp B/P (MAP) Pulse Ox O2 Delivery O2 Flow Rate FiO2 10/17/19 08:07 Nasal Cannula 2.0 10/17/19 07:45 100 Nasal Cannula 2.0 28 10/17/19 07:45 62 20 100 Nasal Cannula 2.0 28 64 20 100 10/17/19 04:00 98.5 74 26 131/57 (81) 100 10/17/19 04:00 73 10/17/19 00:00 77 10/17/19 00:00 97.6 76 18 125/81 (96) 100 10/16/19 21:00 Nasal Cannula 2.0 10/16/19 20:22 85 22 100 Nasal Cannula 2.0 28 10/16/19 20:12 76 20 100 Nasal Cannula 2.0 28 10/16/19 20:12 100 Nasal Cannula 2.0 28 10/16/19 20:00 98.0 78 18 158/73 (101) 100 10/16/19 20:00 79 10/16/19 16:46 75 10/16/19 16:00 97.7 77 20 142/88 (106) 100 10/16/19 15:19 84 24 100 Nasal Cannula 2.0 28 75 24 95 10/16/19 12:00 97.9 85 20 126/94 (105) 97 10/16/19 11:34 84 24 100 Nasal Cannula 2.0 28 82 24 100 10/16/19 11:34 84 10/16/19 09:00 Nasal Cannula 2.0 10/16/19 08:59 85 Intake and Output 10/16/19 10/17/19 19:00 07:00 Intake Total 30 ml Output Total 350 ml 600 ml Balance -320 ml -600 ml Tube Feeding 30 ml Output Urine Total 600 ml Gastric Drainage Total 350 ml # Voids 4 # Bowel Movements 3 1 Laboratory Tests 10/17/19 06:35: White Blood Count 10.2, Red Blood Count 3.17L, Hemoglobin 8.9L, Hematocrit 28.8L , Mean Corpuscular Volume 91, Mean Corpuscular Hemoglobin 28.2, Mean Corpuscular Hemoglobin Concent 31.1L, Red Cell Distribution Width 15.7H, Platelet Count 237, Mean Platelet Volume 6.3L, Neutrophils (%) (Auto) 74.4, Lymphocytes (%) (Auto) 11.6L, Monocytes (%) (Auto) 11.6H, Eosinophils (%) (Auto ) 1.9, Basophils (%) (Auto) 0.5, Sodium Level 152H, Potassium Level 3.5, Chloride Level 112H, Carbon Dioxide Level 36H, Anion Gap 4L, Blood Urea Nitrogen 47H, Creatinine 1.8H, Estimat Glomerular Filtration Rate , Glucose Level 447H, Calcium Level 8.8, Iron Level 21L, Total Iron Binding Capacity 183L , Percent Iron Saturation 11L, Unsaturated Iron Binding 162, Total Bilirubin 0.3 , Aspartate Amino Transf (AST/SGOT) 13L, Alanine Aminotransferase (ALT/SGPT) 26 , Alkaline Phosphatase 122H, Total Protein 7.2, Albumin 2.3L, Globulin 4.9, Albumin/Globulin Ratio 0.5L Height (Feet): 5 Height (Inches): 0.00 Weight (Pounds): 145 General Appearance: WD/WN, alert, confused Neck: supple Cardiovascular: normal rate Respiratory/Chest: crackles/rales, rhonchi - bilaterally Abdomen: normal bowel sounds, non tender, soft, no organomegaly Edema: no edema noted Arm (L), no edema noted Arm (R), no edema noted Leg (L), no edema noted Leg (R), no edema noted Pedal (L), no edema noted Pedal (R), no edema noted Generalized Neurologic: alert, disoriented, unresponsive, aphasia Jeffrey Crowder MD Oct 17, 2019 08:49
[2019-10-17] MEDS: Aspirin Baby 81mg GT SCH (09:56)
[2019-10-17] MEDS: levETIRAcetam 500mg/5ml Liquid GT SCH ×2 (09:56→20:57)
[2019-10-17] MEDS: Heparin 5000 units/ml inj SUBQ SCH ×2 (09:58→20:58)
[2019-10-17] MEDS: Piperacillin/Tazobactam 3.375 GM in NS 110 ML IVPB SCH ×2 (10:00→20:57)
--- NOTE | 2019-10-17 10:36 | NUR ---
NURSE NOTES: RN checked residual from g-tube, only 20cc of green mucus fluid out, RN spoke with Dr. Griffith about pt status, MD stated to DC tube feed, set G-tube drain by gravity with clamping for 1 hour after medication is given and he will discuss with family the pt's need for a G/J tube change that will have to be replaced by endoscopy
--- NOTE | 2019-10-17 11:09 | Infectious Diseases Prog Note ---
Assessment/Plan Assessment/Plan antibiotics : zosyn A 1. gram negative UTI 2. renal failure improving 3. hypertension 4. CHF P 1. continue zosyn 2. will follow up cultures Subjective ROS Limited/Unobtainable: Yes Allergies: Coded Allergies: No Known Allergies (Verified , 12/31/09) Objective Vital Signs Last 24 Hour Vital Signs Date Time Temp Pulse Resp B/P (MAP) Pulse Ox O2 Delivery O2 Flow Rate FiO2 10/17/19 10:35 71 20 100 Nasal Cannula 2.0 28 73 20 100 10/17/19 08:07 Nasal Cannula 2.0 10/17/19 08:00 97.7 68 19 133/65 (87) 99 10/17/19 08:00 65 10/17/19 07:45 100 Nasal Cannula 2.0 28 10/17/19 07:45 62 20 100 Nasal Cannula 2.0 28 64 20 100 10/17/19 04:00 98.5 74 26 131/57 (81) 100 10/17/19 04:00 73 10/17/19 00:00 77 10/17/19 00:00 97.6 76 18 125/81 (96) 100 10/16/19 21:00 Nasal Cannula 2.0 10/16/19 20:22 85 22 100 Nasal Cannula 2.0 28 10/16/19 20:12 76 20 100 Nasal Cannula 2.0 28 10/16/19 20:12 100 Nasal Cannula 2.0 28 10/16/19 20:00 98.0 78 18 158/73 (101) 100 10/16/19 20:00 79 10/16/19 16:46 75 10/16/19 16:00 97.7 77 20 142/88 (106) 100 10/16/19 15:19 84 24 100 Nasal Cannula 2.0 28 75 24 95 10/16/19 12:00 97.9 85 20 126/94 (105) 97 10/16/19 11:34 84 24 100 Nasal Cannula 2.0 28 82 24 100 10/16/19 11:34 84 Height (Feet): 5 Height (Inches): 0.00 Weight (Pounds): 145 Respiratory/Chest: lungs clear Cardiovascular: normal rate, regular rhythm, no gallop/murmur Abdomen: soft, non tender, other - GT Extremities: other - + edema Microbiology Date/Time Source Procedure Growth Status 10/15/19 01:53 Nasal Nares MRSA Culture - Final Staphylococcus Aureus - Mrsa Complete 10/15/19 02:00 Urine,Clean Catch Urine Culture - Preliminary Gram Negative Bacillus 1 Resulted 10/15/19 01:53 Rectum - Final NO CARBAPENEM-RESISTANT ENTEROBACTERI... Complete 10/15/19 01:53 Rectum VRE Culture - Final Enterococcus Faecalis - Vre Complete Laboratory Tests Test 10/17/19 06:35 White Blood Count 10.2 K/UL (4.8-10.8) Red Blood Count 3.17 M/UL (4.20-5.40) L Hemoglobin 8.9 G/DL (12.0-16.0) L Hematocrit 28.8 % (37.0-47.0) L Mean Corpuscular Volume 91 FL (80-99) Mean Corpuscular Hemoglobin 28.2 PG (27.0-31.0) Mean Corpuscular Hemoglobin Concent 31.1 G/DL (32.0-36.0) L Red Cell Distribution Width 15.7 % (11.6-14.8) H Platelet Count 237 K/UL (150-450) Mean Platelet Volume 6.3 FL (6.5-10.1) L Neutrophils (%) (Auto) 74.4 % (45.0-75.0) Lymphocytes (%) (Auto) 11.6 % (20.0-45.0) L Monocytes (%) (Auto) 11.6 % (1.0-10.0) H Eosinophils (%) (Auto) 1.9 % (0.0-3.0) Basophils (%) (Auto) 0.5 % (0.0-2.0) Sodium Level 152 MMOL/L (136-145) H Potassium Level 3.5 MMOL/L (3.5-5.1) Chloride Level 112 MMOL/L (98-107) H Carbon Dioxide Level 36 MMOL/L (21-32) H Anion Gap 4 mmol/L (5-15) L Blood Urea Nitrogen 47 mg/dL (7-18) H Creatinine 1.8 MG/DL (0.55-1.30) H Estimat Glomerular Filtration Rate mL/min (>60) Glucose Level 447 MG/DL (74-106) H Calcium Level 8.8 MG/DL (8.5-10.1) Iron Level 21 ug/dL (50-175) L Total Iron Binding Capacity 183 ug/dL (250-450) L Percent Iron Saturation 11 % (15-50) L Unsaturated Iron Binding 162 ug/dL (112-346) Total Bilirubin 0.3 MG/DL (0.2-1.0) Aspartate Amino Transf (AST/SGOT) 13 U/L (15-37) L Alanine Aminotransferase (ALT/SGPT) 26 U/L (12-78) Alkaline Phosphatase 122 U/L (46-116) H Total Protein 7.2 G/DL (6.4-8.2) Albumin 2.3 G/DL (3.4-5.0) L Globulin 4.9 g/dL Albumin/Globulin Ratio 0.5 (1.0-2.7) L Current Medications Medications (Trade) Dose Ordered Sig/Aaron Route PRN Reason Start Time Stop Time Status Last Admin Dose Admin Albuterol/ Ipratropium (Albuterol/ Ipratropium) 3 ml QIDRT HHN 10/15/19 11:00 10/20/19 10:59 10/17/19 10:35 Aspirin (ASA) 81 mg DAILY GT 10/15/19 09:00 11/14/19 08:59 10/17/19 09:56 Atropine Sulfate (Atropine Opth Jami) 1 drop Q8HR SL 10/17/19 10:00 11/16/19 09:59 10/17/19 10:00 Clonidine HCl (Catapres Tab) 0.1 mg EVERY 6 HOURS PRN GT SBP>160 10/15/19 07:30 11/14/19 07:29 Dextrose 1,000 ml @ 75 mls/hr [id number] IV 10/17/19 08:45 11/16/19 08:44 10/17/19 10:01 Gabapentin (Neurontin) 100 mg BID@0900,2100 GT 10/15/19 09:00 11/14/19 08:59 10/17/19 09:56 Glycopyrrolate (Robinul) 0.2 mg Q8HR IV 10/17/19 14:00 11/16/19 13:59 Heparin Sodium (Porcine) (Heparin 5000 units/ml) 5,000 units EVERY 12 HOURS SUBQ 10/15/19 09:00 11/14/19 08:59 10/17/19 09:58 Lactulose (Cephulac) 20 gm DAILYPRN PRN GT Constipation 10/15/19 07:30 11/14/19 07:29 Lansoprazole (Prevacid) 30 mg DAILY GT 10/15/19 09:00 11/14/19 08:59 10/17/19 09:56 Levetiracetam (Keppra) 1,000 mg BID@0900,2100 GT 10/15/19 09:00 11/14/19 08:59 10/17/19 09:56 Levothyroxine Sodium (Synthroid) 75 mcg DAILY@0630 GT 10/16/19 06:30 11/15/19 06:29 10/17/19 06:13 Magnesium Hydroxide (Mom) 30 ml DAILY PRN GT Constipation 10/15/19 07:30 11/14/19 07:29 Metoclopramide HCl (Reglan) 2.5 mg Q8H IVP 10/17/19 00:45 11/15/19 08:44 10/17/19 09:58 Piperacillin Sod/ Tazobactam Sod 3.375 gm/Sodium Chloride 110 ml @ 27.5 mls/hr Q12HR IVPB 10/15/19 09:00 10/22/19 08:59 10/17/19 10:00 Polyethylene Glycol (Miralax) 17 gm BEDTIME GT 10/15/19 21:00 11/14/19 20:59 10/16/19 22:08 Tyrel Prieto MD Oct 17, 2019 11:09
[2019-10-17 12:00] VITALS: BP 136/59
--- NOTE | 2019-10-17 12:30 | NUR ---
CASE MANAGEMENT:REVIEW 10/17/19 SI:ACUTE ENCEPHALOPATHY PNA. ACUTE RENAL FAILURE. INCREASED SECRETIONS 97.7 68 19 133/65 99% ON 2L/NC H/H-8.9/28.8 NA+152 BUN+47 CR+1.8 IS: IV ZOSYN Q12 IVF@75/HR IV ROBINUL Q8HRS ATROPINE SL Q8HRS IV REGLAN Q8HRS DUONEB HHN QID KEPPRA GT BID ASA GT QD : TELEMETRY STATUS DCP: FROM [facility]: G-TUBE TO GRAVITY...CLAMP GT FOR 1 HR POST MEDICATION ADMINISTRATION
[2019-10-17] MEDS: Glycopyrrolate 0.2mg/ml 1ml Vial IV SCH ×2 (13:52→21:57)
--- NOTE | 2019-10-17 15:12 | NUR ---
NURSE NOTES:WOUND CARE NOTES:Pt presented on admission with non-blanching erythema without induration Sacrum. Dark discoloration without erythema or induration noted to L Ischium. Medial R heel is boggy with non-blanching erythema. Pt did not exhibit any signs of distress when palpated. Lateral R heel boggy with non-blanching erythema. Pt did not exhibit any signs of distress when palpated. All other bony prominences assessed and no other skin concerns noted. Pt has a Reji score of 10, is incontinent of B and B and is nutritional risk. Wound prevention protocols initiated. Optifoam drsgs placed to both hips ,Buttocks and both heels. Pt positioned in bed with pillow and both heels floated off mattress . Tx.Plan: Apply Moisture Barrier Paste to buttocks. Cover Sacrum with Optifoam drsg. Change every 3 days and prn. Apply Cavilon Skin Barrier to both heels. Cover each heel with Optifoam drsg. Change every 7 days and prn. Reposition at least every 2hours or as tolerated. Off-load heels with pillow. APM/VALERIE Mattress overlay.
[2019-10-17 16:00] VITALS: BP 165/77
--- NOTE | 2019-10-17 19:19 | NUR ---
HAND-OFF: Report given to FELY Stroud.
--- NOTE | 2019-10-17 19:30 | NUR ---
NURSE NOTES: Received pt and report from FELY Jones. Observed pt resting in bed with both eyes open. Pt is A/Ox0-1; nonverbal. ekg monitor is in placed; pt is NSR. IV site intact, asymptomatic, and patent; currently running D5W @75cc/hr. Pt has G-tube draining by gravity; current output is 200ml. Bed is in the lowest position and locked. Call light and bedside table is within reach. No signs/symptoms of acute distress noted at this time. Will continue plan of care.
[2019-10-17 20:00] VITALS: BP 143/77
[2019-10-17] MEDS: Miralax 17gm pkt GT SCH (20:57)
--- NOTE | 2019-10-17 22:56 | General Progress Note ---
Assessment/Plan Status: stable Assessment/Plan: Assessment - h/o gastroparesis and TF intolerance - s/p G-J conversion, Mid Sep, at [facility] - OBS - resp distress - contracted Recommendations - Hold fees - GT to gravity - abx , pulm toilet - will d/w family re options Subjective Allergies: Coded Allergies: No Known Allergies (Verified , 12/31/09) Subjective above noted confused, non communicative (+) loud ronchi TF on hold Objective Last 24 Hour Vital Signs Date Time Temp Pulse Resp B/P (MAP) Pulse Ox O2 Delivery O2 Flow Rate FiO2 10/17/19 18:53 99 Nasal Cannula 2.0 28 10/17/19 17:14 165/77 10/17/19 16:05 72 20 100 Nasal Cannula 2.0 28 69 20 100 10/17/19 16:00 96.1 91 18 165/77 (106) 94 10/17/19 15:28 70 10/17/19 12:04 68 10/17/19 12:00 96.6 78 18 136/59 (84) 100 10/17/19 10:35 71 20 100 Nasal Cannula 2.0 28 73 20 100 10/17/19 08:07 Nasal Cannula 2.0 10/17/19 08:00 97.7 68 19 133/65 (87) 99 10/17/19 08:00 65 10/17/19 07:45 100 Nasal Cannula 2.0 28 10/17/19 07:45 62 20 100 Nasal Cannula 2.0 28 64 20 100 10/17/19 04:00 98.5 74 26 131/57 (81) 100 10/17/19 04:00 73 10/17/19 00:00 77 10/17/19 00:00 97.6 76 18 125/81 (96) 100 Intake and Output 10/16/19 10/17/19 19:00 07:00 Intake Total 30 ml Output Total 350 ml 600 ml Balance -320 ml -600 ml Tube Feeding 30 ml Output Urine Total 600 ml Gastric Drainage Total 350 ml # Voids 4 # Bowel Movements 3 1 Laboratory Tests 10/17/19 06:35: White Blood Count 10.2, Red Blood Count 3.17L, Hemoglobin 8.9L, Hematocrit 28.8L , Mean Corpuscular Volume 91, Mean Corpuscular Hemoglobin 28.2, Mean Corpuscular Hemoglobin Concent 31.1L, Red Cell Distribution Width 15.7H, Platelet Count 237, Mean Platelet Volume 6.3L, Neutrophils (%) (Auto) 74.4, Lymphocytes (%) (Auto) 11.6L, Monocytes (%) (Auto) 11.6H, Eosinophils (%) (Auto ) 1.9, Basophils (%) (Auto) 0.5, Sodium Level 152H, Potassium Level 3.5, Chloride Level 112H, Carbon Dioxide Level 36H, Anion Gap 4L, Blood Urea Nitrogen 47H, Creatinine 1.8H, Estimat Glomerular Filtration Rate , Glucose Level 447H, Calcium Level 8.8, Iron Level 21L, Total Iron Binding Capacity 183L , Percent Iron Saturation 11L, Unsaturated Iron Binding 162, Total Bilirubin 0.3 , Aspartate Amino Transf (AST/SGOT) 13L, Alanine Aminotransferase (ALT/SGPT) 26 , Alkaline Phosphatase 122H, Total Protein 7.2, Albumin 2.3L, Globulin 4.9, Albumin/Globulin Ratio 0.5L Height (Feet): 5 Height (Inches): 0.00 Weight (Pounds): 145 Objective confused bedbound, contracted coarse ronchi RR abd soft, (+) 22Fr GT ext contracted and stiff OBS Darrell Griffith MD Oct 17, 2019 22:56
[2019-10-18] VITALS: BP 121/89
--- NOTE | 2019-10-18 01:30 | NUR ---
NURSE NOTES: Observed pt asleep in bed with both eyes closed. No signs/symptoms of acute distress noted at this time. Will continue plan of care.
[2019-10-18] MEDS: Metoclopramide 10mg/2ml Inj IVP SCH ×4 (01:35→21:24)
[2019-10-18 04:00] VITALS: BP 145/69
[2019-10-18] MEDS: Glycopyrrolate 0.2mg/ml 1ml Vial IV SCH ×3 (06:04→21:24)
--- NOTE | 2019-10-18 07:35 | NUR ---
NURSE NOTES: Received report from Luanne/RN, Observed patient lying semi-thao's, resting comfortably, On 2L nasal canula, no acute distress/SOB noted. Breathing evenly and unlabored. IV on left FA patent, and asymptomatic, D5W running at 75cc/hr. G-tube connected to Barron bag, draining well to gravity. Bed in low position and locked, Bed alarm engaged. Call light within reach, Encouraged to use call light when needed. Will continue plan of care.
--- NOTE | 2019-10-18 07:54 | NUR ---
HAND-OFF: Report given to FELY Davis. Plan of care endorsed.
[2019-10-18 07:56] LABS: ALANINE AMINOTRANSFERASE 25 U/L (12-78); ALBUMIN 2.7 G/DL (3.4-5.0); ALBUMIN/GLOBULIN RATIO 0.5 (1.0-2.7); ALKALINE PHOSPHATASE 118 U/L (46-116); ANION GAP 6 mmol/L (5-15); ASPARTATE AMINO TRANSFERASE 14 U/L (15-37); BILIRUBIN,TOTAL 0.4 MG/DL (0.2-1.0); BLOOD UREA NITROGEN 32 mg/dL (7-18); CALCIUM 9.6 MG/DL (8.5-10.1); CARBON DIOXIDE 37 MMOL/L (21-32); CHLORIDE 110 MMOL/L (98-107); CREATININE 1.6 MG/DL (0.55-1.30); POTASSIUM 3.6 MMOL/L (3.5-5.1); SODIUM 152 MMOL/L (136-145)
[2019-10-18 08:00] VITALS: BP 142/74
--- NOTE | 2019-10-18 08:11 | Pulmonology Progress Note ---
Assessment/Plan Assessment/Plan 1. Urinary tract infection. 2. doubt Pneumonia 3. Renal failure. 4. Hypertension. 5. Congestive heart failure. 6. Seizure History 7. Diabetes 8. Hypernatremia 9. EDGAR PLAN hypotonic fluids with caution repeat imaging and monitor for overload off antibiotics and monitor monitor fluid status meds noted oxygen as is respiratory care as is add levaquin based on urine culture results close followup for change impression, plan, and exam edited and reviewed in detail care discussed with RN Subjective Allergies: Coded Allergies: No Known Allergies (Verified , 12/31/09) Subjective care noted events noted and discussed on oxygen Objective Last 24 Hour Vital Signs Date Time Temp Pulse Resp B/P (MAP) Pulse Ox O2 Delivery O2 Flow Rate FiO2 10/18/19 04:00 66 10/18/19 04:00 97.9 66 20 145/69 (94) 97 10/18/19 00:00 67 10/18/19 00:00 97.7 73 19 121/89 (100) 98 10/17/19 21:00 Nasal Cannula 2.0 10/17/19 20:00 65 10/17/19 20:00 97.3 65 20 143/77 (99) 97 10/17/19 18:53 99 Nasal Cannula 2.0 28 10/17/19 17:14 165/77 10/17/19 16:05 72 20 100 Nasal Cannula 2.0 28 69 20 100 10/17/19 16:00 96.1 91 18 165/77 (106) 94 10/17/19 15:28 70 10/17/19 12:04 68 10/17/19 12:00 96.6 78 18 136/59 (84) 100 10/17/19 10:35 71 20 100 Nasal Cannula 2.0 28 73 20 100 Intake and Output 10/17/19 10/18/19 19:00 07:00 Intake Total 300 ml 310 ml Output Total 1420 ml 650 ml Balance -1120 ml -340 ml Free Water 300 ml 310 ml Output Urine Total 750 ml 550 ml Gastric Drainage Total 70 ml 100 ml Other 600 ml # Bowel Movements 1 1 Objective WDWN NAD reduced breath sounds bilaterally without rhonchi or wheeze [id number] without MRG NABS nontender no HSM no CCE nonfocal reviewed and edited Laboratory Tests 10/18/19 06:27: Sodium Level 152H, Potassium Level 3.6, Chloride Level 110H, Carbon Dioxide Level 37H, Anion Gap 6, Blood Urea Nitrogen 32H, Creatinine 1.6H, Estimat Glomerular Filtration Rate , Glucose Level 335#H, Calcium Level 9.6, Total Bilirubin 0.4, Aspartate Amino Transf (AST/SGOT) 14L, Alanine Aminotransferase ( ALT/SGPT) 25, Alkaline Phosphatase 118H, Total Protein 8.2, Albumin 2.7L, Globulin 5.5, Albumin/Globulin Ratio 0.5L Current Medications Medications (Trade) Dose Ordered Sig/Aaron Route PRN Reason Start Time Stop Time Status Last Admin Dose Admin Albuterol/ Ipratropium (Albuterol/ Ipratropium) 3 ml QIDRT HHN 10/15/19 11:00 10/20/19 10:59 10/17/19 16:04 Aspirin (ASA) 81 mg DAILY GT 10/15/19 09:00 11/14/19 08:59 10/17/19 09:56 Atropine Sulfate (Atropine Opth Jami) 1 drop Q8HR SL 10/17/19 10:00 11/16/19 09:59 10/18/19 06:04 Clonidine HCl (Catapres Tab) 0.1 mg EVERY 6 HOURS PRN GT SBP>160 10/15/19 07:30 11/14/19 07:29 10/17/19 17:14 Dextrose 1,000 ml @ 75 mls/hr [id number] IV 10/17/19 08:45 11/16/19 08:44 10/17/19 21:58 Gabapentin (Neurontin) 100 mg BID@0900,2100 GT 10/15/19 09:00 11/14/19 08:59 10/17/19 20:57 Glycopyrrolate (Robinul) 0.2 mg Q8HR IV 10/17/19 14:00 11/16/19 13:59 10/18/19 06:04 Heparin Sodium (Porcine) (Heparin 5000 units/ml) 5,000 units EVERY 12 HOURS SUBQ 10/15/19 09:00 11/14/19 08:59 10/17/19 20:58 Lactulose (Cephulac) 20 gm DAILYPRN PRN GT Constipation 10/15/19 07:30 11/14/19 07:29 Lansoprazole (Prevacid) 30 mg DAILY GT 10/15/19 09:00 11/14/19 08:59 10/17/19 09:56 Levetiracetam (Keppra) 1,000 mg BID@0900,2100 GT 10/15/19 09:00 11/14/19 08:59 10/17/19 20:57 Levothyroxine Sodium (Synthroid) 75 mcg DAILY@0630 GT 10/16/19 06:30 11/15/19 06:29 10/18/19 06:04 Magnesium Hydroxide (Mom) 30 ml DAILY PRN GT Constipation 10/15/19 07:30 11/14/19 07:29 Metoclopramide HCl (Reglan) 2.5 mg Q8H IVP 10/17/19 00:45 11/15/19 08:44 10/18/19 01:35 Piperacillin Sod/ Tazobactam Sod 3.375 gm/Sodium Chloride 110 ml @ 27.5 mls/hr Q12HR IVPB 10/15/19 09:00 10/22/19 08:59 10/17/19 20:57 Polyethylene Glycol (Miralax) 17 gm BEDTIME GT 10/15/19 21:00 11/14/19 20:59 10/17/19 20:57 Torey Douglass MD Oct 18, 2019 08:11
--- NOTE | 2019-10-18 08:27 | CDS Physician Query ---
Clarification is required for compliance, coding accuracy, and to reflect severity of illness for this patient Dear Dr. Jeffrey Crowder M.D. 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 PROBLEM LIST: 1. Pneumonia, rule out aspiration. 2. Urinary tract infection. 3. Acute on chronic renal failure. 4. History of stroke. 5. Dementia. 6. Encephalopathy. 7. Seizure disorder. 8. Diabetes. "Encephalopathy" documented in H&P Please indicate the nature and chronicity of the condition below: [] Metabolic Encephalopathy [] Toxic Encephalopathy [x] Toxic - Metabolic Encephalopathy [] Encephalopathy, Other [] Dementia with Delirium [] Hypoxic encephalopathy [] Posterior reversible encephalopathy syndrome [] Other: [] Not Applicable Present on Admission: [x] Yes [] No [] Clinically Undetermined Physician signature Date Please also document in your Progress Notes and/or Discharge Summary and indicate if the condition was present on admission. MTDD
--- NOTE | 2019-10-18 08:30 | CDS Physician Query ---
Clarification is required for compliance, coding accuracy, and to reflect severity of illness for this patient Dear Dr. Jeffrey Crowder M.D. Date: 10/18/2019 CDS: Allen Connolly ASSESSMENT: This is an unfortunate female admitted with complaints of shortness of breath secondary to possible pneumonia. PROBLEM LIST: 1. Pneumonia A diagnosis of "Pneumonia" is documented, and the patient is on: Please specify the underlying etiology: [] Gram +Positive Organism(s) [] Anaerobes [] Gram -Negative Organism(s) [x] Aspiration [] Pseudomonas [] Mycoplasma [] MRSA [] Not Applicable [] Other organism(s). Please specify: Present on Admission: [x] Yes [] No [] Clinically Undetermined Physician signature Date Please also document in your Progress Notes and/or Discharge Summary and indicate if the condition was present on admission. JUAN MANUEL
[2019-10-18] MEDS: Albuterol/Ipratropium 3ml neb HHN SCH ×4 (08:33→19:00)
[2019-10-18] MEDS: Aspirin Baby 81mg GT SCH (08:56)
[2019-10-18] MEDS: levETIRAcetam 500mg/5ml Liquid GT SCH ×2 (08:57→21:23)
[2019-10-18] MEDS: Piperacillin/Tazobactam 3.375 GM in NS 110 ML IVPB SCH (08:57)
[2019-10-18] MEDS ORDERED: Levofloxacin 500mg tab ORAL SCH (09:00)
[2019-10-18] MEDS: Heparin 5000 units/ml inj SUBQ SCH ×2 (09:00→21:25)
[2019-10-18] MEDS ORDERED: D5W w/KCl 20mEq 1,000 ML IV SCH (09:15)
--- NOTE | 2019-10-18 10:30 | Infectious Diseases Prog Note ---
Assessment/Plan Assessment/Plan antibiotics : zosyn A 1. pseudomonas UTI 2. renal failure improving 3. hypertension 4. CHF P 1. d/c zosyn 2. start levoquin 3. will follow up cultures Subjective ROS Limited/Unobtainable: Yes Allergies: Coded Allergies: No Known Allergies (Verified , 12/31/09) Objective Vital Signs Last 24 Hour Vital Signs Date Time Temp Pulse Resp B/P (MAP) Pulse Ox O2 Delivery O2 Flow Rate FiO2 10/18/19 07:10 66 16 100 Nasal Cannula 2.0 28 60 16 94 10/18/19 07:10 94 Nasal Cannula 2.0 28 10/18/19 04:00 66 10/18/19 04:00 97.9 66 20 145/69 (94) 97 10/18/19 00:00 67 10/18/19 00:00 97.7 73 19 121/89 (100) 98 10/17/19 21:00 Nasal Cannula 2.0 10/17/19 20:00 65 10/17/19 20:00 97.3 65 20 143/77 (99) 97 10/17/19 18:53 99 Nasal Cannula 2.0 28 10/17/19 17:14 165/77 10/17/19 16:05 72 20 100 Nasal Cannula 2.0 28 69 20 100 10/17/19 16:00 96.1 91 18 165/77 (106) 94 10/17/19 15:28 70 10/17/19 12:04 68 10/17/19 12:00 96.6 78 18 136/59 (84) 100 10/17/19 10:35 71 20 100 Nasal Cannula 2.0 28 73 20 100 Height (Feet): 5 Height (Inches): 0.00 Weight (Pounds): 145 Respiratory/Chest: lungs clear Cardiovascular: normal rate, regular rhythm, no gallop/murmur Abdomen: soft, non tender, other - GT Extremities: no edema Laboratory Tests Test 10/18/19 06:27 Sodium Level 152 MMOL/L (136-145) H Potassium Level 3.6 MMOL/L (3.5-5.1) Chloride Level 110 MMOL/L (98-107) H Carbon Dioxide Level 37 MMOL/L (21-32) H Anion Gap 6 mmol/L (5-15) Blood Urea Nitrogen 32 mg/dL (7-18) H Creatinine 1.6 MG/DL (0.55-1.30) H Estimat Glomerular Filtration Rate mL/min (>60) Glucose Level 335 MG/DL (74-106) #H Calcium Level 9.6 MG/DL (8.5-10.1) Total Bilirubin 0.4 MG/DL (0.2-1.0) Aspartate Amino Transf (AST/SGOT) 14 U/L (15-37) L Alanine Aminotransferase (ALT/SGPT) 25 U/L (12-78) Alkaline Phosphatase 118 U/L (46-116) H Total Protein 8.2 G/DL (6.4-8.2) Albumin 2.7 G/DL (3.4-5.0) L Globulin 5.5 g/dL Albumin/Globulin Ratio 0.5 (1.0-2.7) L Current Medications Medications (Trade) Dose Ordered Sig/Aaron Route PRN Reason Start Time Stop Time Status Last Admin Dose Admin Albuterol/ Ipratropium (Albuterol/ Ipratropium) 3 ml QIDRT HHN 10/15/19 11:00 10/20/19 10:59 10/18/19 08:33 Aspirin (ASA) 81 mg DAILY GT 10/15/19 09:00 11/14/19 08:59 10/18/19 08:56 Atropine Sulfate (Atropine Opth Jami) 1 drop Q8HR SL 10/17/19 10:00 11/16/19 09:59 10/18/19 06:04 Clonidine HCl (Catapres Tab) 0.1 mg EVERY 6 HOURS PRN GT SBP>160 10/15/19 07:30 11/14/19 07:29 10/17/19 17:14 Dextrose/ Electrolytes 1,000 ml @ 100 mls/hr Q10H IV 10/18/19 11:00 11/17/19 10:59 Gabapentin (Neurontin) 100 mg BID@0900,2100 GT 10/15/19 09:00 11/14/19 08:59 10/18/19 08:57 Glycopyrrolate (Robinul) 0.2 mg Q8HR IV 10/17/19 14:00 11/16/19 13:59 10/18/19 06:04 Heparin Sodium (Porcine) (Heparin 5000 units/ml) 5,000 units EVERY 12 HOURS SUBQ 10/15/19 09:00 11/14/19 08:59 10/18/19 09:00 Lactulose (Cephulac) 20 gm DAILYPRN PRN GT Constipation 10/15/19 07:30 11/14/19 07:29 Lansoprazole (Prevacid) 30 mg DAILY GT 10/15/19 09:00 11/14/19 08:59 10/18/19 08:57 Levetiracetam (Keppra) 1,000 mg BID@0900,2100 GT 10/15/19 09:00 11/14/19 08:59 10/18/19 08:57 Levofloxacin (Levaquin) 250 mg DAILY ORAL 10/19/19 09:00 10/26/19 08:59 Levothyroxine Sodium (Synthroid) 75 mcg DAILY@0630 GT 10/16/19 06:30 11/15/19 06:29 10/18/19 06:04 Magnesium Hydroxide (Mom) 30 ml DAILY PRN GT Constipation 10/15/19 07:30 11/14/19 07:29 Metoclopramide HCl (Reglan) 2.5 mg Q8H IVP 10/17/19 00:45 11/15/19 08:44 10/18/19 08:57 Piperacillin Sod/ Tazobactam Sod 3.375 gm/Sodium Chloride 110 ml @ 27.5 mls/hr Q12HR IVPB 10/15/19 09:00 10/22/19 08:59 10/18/19 08:57 Polyethylene Glycol (Miralax) 17 gm BEDTIME GT 10/15/19 21:00 11/14/19 20:59 10/17/19 20:57 Tyrel Prieto MD Oct 18, 2019 10:30
--- NOTE | 2019-10-18 10:33 | NUR ---
*-* INSURANCE *-* ALL CLINICALS AND REVIEWS HAVE BEEN FAXED TO: REF# [id number] # [phone] FAX# [phone] REVIEWS/CLINICALS
--- NOTE | 2019-10-18 10:45 | Consultation ---
DATE OF CONSULTATION: 10/17/2019 CARDIOLOGY CONSULTATION CONSULTING PHYSICIAN: Kavon Peña M.D. REFERRING PHYSICIAN: Jeffrey Crowder M.D. REASON FOR CONSULTATION: Congestive heart failure and dehydration. HISTORY OF PRESENT ILLNESS: This is an 79-year-old female. She has advanced dementia. She resides at a [facility] facility. She has a history of hypertensive heart disease and diastolic dysfunction with congestive heart failure. She presented to the emergency room two days ago with pneumonia and signs of acute renal failure. I have been asked to address abnormal cardiovascular parameters suggesting congestive heart failure. The patient is unable to give any history. Records are reviewed as well as prior hospital stays with the data noted. PAST MEDICAL HISTORY: Type 2 diabetes mellitus, chronic kidney disease with history of renal failure, dementia, dysphagia, history of aspiration, seizure disorder, history of diastolic dysfunction and congestive heart failure, hypertensive heart disease, peptic ulcer disease, constipation, hypothyroidism, gastroparesis, and diabetic neuropathy. ALLERGIES: None. SOCIAL HISTORY: No record of smoking, alcohol, or substance abuse. FAMILY HISTORY: Noncontributory. MEDICATIONS: Prior to admission, reviewed and reconciled. Current medications, reviewed in the MAR. REVIEW OF SYSTEMS: Unobtainable from the patient. Pertinent data from records is outlined above. PHYSICAL EXAMINATION: VITAL SIGNS: Blood pressure 142/77, pulse 65, respirations 20. Afebrile. Monitored rhythm, sinus with atrial ectopics. GENERAL: Nonverbal. HEENT: Dry mucous membranes. NECK: Jugular venous pressure grossly normal. LUNGS: Coarse breath sounds and rhonchi. CARDIAC: Regular rhythm and rate. Normal S1, S2 with a 1/6 systolic murmur at the base. ABDOMEN: Nontender. EXTREMITIES: With no edema. LABORATORY AND DIAGNOSTIC DATA: Chest x-ray with bilateral edema versus infiltrates. EKG from October 15 revealed ectopic atrial rhythm with nonspecific T-wave changes, ventricular rate 76. Labs, sodium 152, potassium 3.5, chloride 112, bicarb 36, BUN 47, and creatinine 1.8. On admission, BUN was 90 and creatinine 2.2. Currently glucose 447. Iron saturation 11%. Albumin 2.3. White count 10.2, hemoglobin 8.9. Urinalysis, too numerous to count white cells on admission. IMPRESSION: 1. Aspiration with pneumonia 2. Chronic diastolic congestive heart failure. 3. Urinary tract infection with possible sepsis. 4. Dehydration. 5. Hypernatremia. 6. Hyperchloremia. 7. Acute on chronic renal failure, improving with hydration. 8. Metabolic alkalosis. 9. Type 2 diabetes mellitus with uncontrolled glucose. 10. Iron deficiency anemia. 11. Severe protein-calorie malnutrition. 12. Cerebrovascular disease with dementia. 13. Dysphagia with G-tube. PLAN: 1. No diuretics at this time. 2. Antibiotics and respiratory hygiene. 3. Aspiration precautions. 4. Continue hypotonic IV fluid hydration 5. Replace potassium as needed. 6. Recheck thyroid function 7. DVT prophylaxis 8. Anti-platelet therapy. 9. Insulin coverage by sliding scale and advance long-acting insulin based on glucose parameters. Kavon Peña M.D. DR: FILIBERTO JOB#: [id number] CC:
[2019-10-18] MEDS ORDERED: D5 1/2NS w/KCl 20mEq 1,000 ML IV SCH (11:00)
[2019-10-18 12:00] VITALS: BP 140/58
--- NOTE | 2019-10-18 13:53 | Diagnostic Imaging Report ---
Clinical Indication: Shortness of breath Technique: Spiral acquisitions obtained through the chest. No IV contrast utilized, reason not stated. Multiplanar reconstructions generated. Total dose length product 391 mGycm. CTDIvol(s) 10 mGy. Dose reduction achieved using automated exposure control Comparison: none Findings: Exam is very limited. Patient contracted and unable to lift arms over head, resulting in excess imaging noise. There is also related degradation due to motion artifact. Debris is seen in the bilateral mainstem bronchi, but does not occlude them. Debris is seen occluding multiple right lower lobe segmental bronchi. As result, there is considerable atelectasis and consolidation in the right lower lobe. Interstitial opacities and some parenchymal consolidation are also seen in the right middle lobe. Debris is seen including multiple left lower lobe segmental bronchi, and considerable atelectasis and consolidation are seen involving much of the left lower lobe. Patchy areas of consolidation and atelectasis are seen in the inferior left upper lobe as well. There are small bilateral pleural effusions. The heart is upper limits normal in size. The pulmonary arteries are somewhat ectatic. No mediastinal or hilar mass or adenopathy. The thyroid is unremarkable. No axillary or chest wall mass or adenopathy. There is chronic appearing subluxation of the right shoulder joint as well as an old healed fracture deformity of the right humeral head and neck. There are degenerative changes of the left shoulder, possibly with some subluxation as well. There are degenerative changes of the thoracic spine. There is an anterior wedge compression fracture deformity of the L1 vertebral body, and a mild compression fracture deformity of the T12 vertebral body. There are also compression fracture deformities of T3 and T4. There is extensive vascular calcification. The included upper abdominal viscera demonstrate a gastrostomy. The retention balloon of the gastrostomy is not clearly visible. Impression: Debris seen including multiple lower lobe segmental bronchi bilaterally Bilateral lower lobe parenchymal opacities, likely combination of atelectasis related to the above and infiltrates Less extensive parenchymal opacities in the right middle lobe and left inferior upper lobe Trace bilateral pleural fluid Somewhat ectatic pulmonary arteries, could indicate pulmonary arterial hypertension Chronic appearing subluxation and fracture deformity of the right shoulder Degenerative changes and possible subluxation of the left shoulder Multiple vertebral body compression fractures, age-indeterminate. Consider further evaluation with MRI if clinically relevant Gastrostomy. Uncertain as to whether retention balloon is inflated The CT scanner at [facility] is accredited by the [employer] and the scans are performed using protocols designed to limit radiation exposure to as low as reasonably achievable to attain images of sufficient resolution adequate for diagnostic evaluation.
--- NOTE | 2019-10-18 14:05 | NUR ---
RD ASSESSMENT & RECOMMENDATIONS SEE CARE ACTIVITY FOR COMPLETE ASSESSMENT DAILY ESTIMATED NEEDS: Needs based on DM, Renal, wound, CHF, bedbound 57.4kg abw 23-30 kcals/kg 7734-3871 total kcals 0.8-1.2 g protein/kg 46-70 g total protein 20-25 mL/kg 4230-8885 total fluid mLs NUTRITION DIAGNOSIS: 1) Altered nutrition related lab values r/t DM, CKD, cardiac hx as evidenced by pt w/ elev BUN (90 ->32), Cr (2.2 ->1.6), elev BG (335, 447), elev BNP (1455) 2) Swallowing difficulty r/t dysphagia as evidenced by pt is GT dep, currently TF held, w/ GT to gravity. CURRENT TF:TF HELD, GT TO GRAVITY ENTERAL NUTRITION RECOMMENDATIONS: Glucerna 1.5 @ 45ml/hr x 22 hrs to provide 990ml, 1485kcal, 81g prot, 751ml free water * Once medically appropriate to feed, initiate Glucerna 1.5 @ 15ml/hr x 6 hrs, advance 10ml q 4-6 hrs as tolerated to goal rate * Hold 1 hr before and after Synthroid med * HOB over 30 degrees/ water flush per MD Monitor lytes closely, need to change TF to Nepro (Pt on Nepro BAIT MAN) ADDITIONAL RECOMMENDATIONS: 1) Monitor lytes closely, need for TF change ( Pt on Nepro BAIT MAN, possible h/o electrolyte imbalance) 2) Wound care- Maik 1pkt BID via PEG once pt tolerates TF 3) Calibrate bed scale for accurate wt ( Per SNF, ET=655.8lbs) 4) Add NISS: BG elev, monitor need for long acting insulin Monitor for hypoglycemia while pt is NPO 5) Consider DC 1/2NS from IVF: hypernatremia 6) Monitor NPO status, ability to feed: w/ GT to gravity at this time
--- NOTE | 2019-10-18 14:15 | Progress Note ---
DATE: 10/18/2019 CARDIOLOGY PROGRESS NOTE SUBJECTIVE: Condition largely unchanged. The patient remains on hypotonic IV fluids with D5W. Still with congestion and difficulty with . Monitored rhythm ectopic atrial rhythm. PHYSICAL EXAMINATION: VITAL SIGNS: Blood pressure 145/69, heart rate 66, respirations 20. LUNGS: Scattered rhonchi. CARDIAC: Regular rhythm and rate. Normal S1, S2. ABDOMEN: Soft. G-tube intact. EXTREMITIES: No edema. Contractures. LABORATORY DATA: Sodium 152, potassium 3.6, chloride 110, bicarb 37, BUN 32, creatinine 1.6. White count 10.2, hemoglobin 8.9. Glucose 235. IMPRESSION: 1. Aspiration pneumonia. 2. Urinary tract infection. 3. Sepsis. 4. Type 2 diabetes with hyperglycemia. 5. Chronic diastolic congestive heart failure. 6. Acute on chronic renal failure, improved. 7. Dehydration. 8. Hypernatremia. 9. Hyperchloremia. 10. Metabolic alkalosis. 11. Advanced dementia. 12. History of hypothyroidism. 13. Atrial ectopic rhythm of no clinical significance. PLAN: 1. Change IV fluids to half-normal saline. 2. Continue IV fluid hydration. 3. Insulin coverage by sliding scale. 4. Nutritional support by feeding tube. 5. Aspiration precaution. 6. Respiratory hygiene. 7. No diuretic therapy presently indicated. 8. Continue anti-platelet therapy. 9. DVT prophylaxis. Kavon Peña M.D. DR: ESTHELA JOB#: [id number] CC:
--- NOTE | 2019-10-18 15:28 | NUR ---
NURSE NOTES: Handoff received from FELY Davis.
--- NOTE | 2019-10-18 15:41 | NUR ---
CASE MANAGEMENT:REVIEW 10/18/19 SI:ACUTE ENCEPHALOPATHY PNA. ACUTE RENAL FAILURE. INCREASED SECRETIONS 98.1 64 18 140/58 96% ON 2L/NC IS: IV ZOSYN Q12 IVF@100/HR IV ROBINUL Q8HRS ATROPINE SL Q8HRS IV REGLAN Q8HRS DUONEB HHN QID KEPPRA GT BID ASA GT QD : TELEMETRY STATUS DCP: FROM CV PAVILION PLAN: G-TUBE TO GRAVITY...CLAMP GT FOR 1 HR POST MEDICATION ADMINISTRATION CONTINUE ROBINUL AND ATROPINE FOR SECRETIONS
[2019-10-18 15:44] VITALS: BP 100/63
--- NOTE | 2019-10-18 19:05 | General Progress Note ---
Assessment/Plan Problem List: (1) Diabetes mellitus ICD Codes: E11.9 - Type 2 diabetes mellitus without complications SNOMED: 97702616 (2) Encephalopathy acute ICD Codes: G93.40 - Encephalopathy, unspecified SNOMED: 5552559 (3) Pneumonia ICD Codes: J18.9 - Pneumonia, unspecified organism SNOMED: 917540799 (4) HTN (hypertension) ICD Codes: I10 - Essential (primary) hypertension SNOMED: 76657478 (5) CHF (congestive heart failure) ICD Codes: I50.9 - Heart failure, unspecified SNOMED: 23097539 Qualifiers: Qualified Codes: I50.9 - Heart failure, unspecified (6) ARF (acute renal failure) ICD Codes: N17.9 - Acute kidney failure, unspecified SNOMED: 72786357 Qualifiers: Qualified Codes: N17.9 - Acute kidney failure, unspecified Status: stable Assessment/Plan: resp care suctioning iv abx hypotonic ivf. follow up labs glycopyrolate and atropine drops reglan follow up cultures gi eval appreciated ct chest reviewed d/w sister nicola- agrees with J tube Subjective ROS Limited/Unobtainable: No Constitutional: Reports: malaise, weakness HEENT: Reports: no symptoms Cardiovascular: Reports: no symptoms Respiratory: Reports: cough, shortness of breath, sputum Gastrointestinal/Abdominal: Reports: no symptoms Genitourinary: Reports: no symptoms Neurologic/Psychiatric: Reports: pre-existing deficit, seizure Endocrine: Reports: no symptoms Hematologic/Lymphatic: Reports: anemia Allergies: Coded Allergies: No Known Allergies (Verified , 12/31/09) All Systems: reviewed and negative except above Subjective less congested. not tolerating feeds. high residuals. Na up. CT noted. Objective Last 24 Hour Vital Signs Date Time Temp Pulse Resp B/P (MAP) Pulse Ox O2 Delivery O2 Flow Rate FiO2 10/18/19 16:00 64 10/18/19 15:44 98.1 68 18 100/63 (75) 92 10/18/19 15:15 84 18 99 Nasal Cannula 2.0 28 80 20 94 10/18/19 12:00 64 10/18/19 12:00 98.1 63 18 140/58 (85) 96 10/18/19 11:39 70 16 100 Nasal Cannula 2.0 28 72 18 96 2/11/20 09:00 Nasal Cannula 2.0 10/18/19 08:00 63 10/18/19 08:00 97.2 65 18 142/74 (96) 96 10/18/19 07:10 66 16 100 Nasal Cannula 2.0 28 60 16 94 10/18/19 07:10 94 Nasal Cannula 2.0 28 10/18/19 04:00 66 10/18/19 04:00 97.9 66 20 145/69 (94) 97 10/18/19 00:00 67 10/18/19 00:00 97.7 73 19 121/89 (100) 98 10/17/19 21:00 Nasal Cannula 2.0 10/17/19 20:00 65 10/17/19 20:00 97.3 65 20 143/77 (99) 97 Intake and Output 10/17/19 10/18/19 19:00 07:00 Intake Total 300 ml 310 ml Output Total 1420 ml 650 ml Balance -1120 ml -340 ml Free Water 300 ml 310 ml Output Urine Total 750 ml 550 ml Gastric Drainage Total 70 ml 100 ml Other 600 ml # Bowel Movements 1 1 Laboratory Tests 10/18/19 06:27: Sodium Level 152H, Potassium Level 3.6, Chloride Level 110H, Carbon Dioxide Level 37H, Anion Gap 6, Blood Urea Nitrogen 32H, Creatinine 1.6H, Estimat Glomerular Filtration Rate , Glucose Level 335#H, Calcium Level 9.6, Total Bilirubin 0.4, Aspartate Amino Transf (AST/SGOT) 14L, Alanine Aminotransferase ( ALT/SGPT) 25, Alkaline Phosphatase 118H, Total Protein 8.2, Albumin 2.7L, Globulin 5.5, Albumin/Globulin Ratio 0.5L Height (Feet): 5 Height (Inches): 0.00 Weight (Pounds): 145 Objective General Appearance: WD/WN, alert, confused Neck: supple Cardiovascular: normal rate Respiratory/Chest: decreased crackles/rales, rhonchi - bilaterally Abdomen: normal bowel sounds, non tender, soft, no organomegaly Edema: no edema noted Arm (L), no edema noted Arm (R), no edema noted Leg (L), no edema noted Leg (R), no edema noted Pedal (L), no edema noted Pedal (R), no edema noted Generalized Neurologic: alert, disoriented, unresponsive, aphasia [place],Jeffrey M. MD Oct 18, 2019 19:05
--- NOTE | 2019-10-18 19:14 | NUR ---
HAND-OFF: Report given to FELY Domingo.
[2019-10-18 21:00] VITALS: BP 111/79
--- NOTE | 2019-10-18 21:02 | General Progress Note ---
Assessment/Plan Status: stable Assessment/Plan: Assessment - h/o gastroparesis and TF intolerance - s/p G-J conversion, Mid Sep, at [facility] - OBS - resp distress - contracted Recommendations - Hold fees - GT to gravity - abx , pulm toilet - await family call back re options Subjective Allergies: Coded Allergies: No Known Allergies (Verified , 12/31/09) Subjective above noted breathing better off of feeds message left with DTR to call to make plans Objective Last 24 Hour Vital Signs Date Time Temp Pulse Resp B/P (MAP) Pulse Ox O2 Delivery O2 Flow Rate FiO2 10/18/19 16:00 64 10/18/19 15:44 98.1 68 18 100/63 (75) 92 10/18/19 15:15 84 18 99 Nasal Cannula 2.0 28 80 20 94 10/18/19 12:00 64 10/18/19 12:00 98.1 63 18 140/58 (85) 96 10/18/19 11:39 70 16 100 Nasal Cannula 2.0 28 72 18 96 10/18/19 09:00 Nasal Cannula 2.0 10/18/19 08:00 63 10/18/19 08:00 97.2 65 18 142/74 (96) 96 10/18/19 07:10 66 16 100 Nasal Cannula 2.0 28 60 16 94 10/18/19 07:10 94 Nasal Cannula 2.0 28 10/18/19 04:00 66 10/18/19 04:00 97.9 66 20 145/69 (94) 97 10/18/19 00:00 67 10/18/19 00:00 97.7 73 19 121/89 (100) 98 Intake and Output 10/17/19 10/18/19 19:00 07:00 Intake Total 300 ml 310 ml Output Total 1420 ml 650 ml Balance -1120 ml -340 ml Free Water 300 ml 310 ml Output Urine Total 750 ml 550 ml Gastric Drainage Total 70 ml 100 ml Other 600 ml # Bowel Movements 1 1 Laboratory Tests 10/18/19 06:27: Sodium Level 152H, Potassium Level 3.6, Chloride Level 110H, Carbon Dioxide Level 37H, Anion Gap 6, Blood Urea Nitrogen 32H, Creatinine 1.6H, Estimat Glomerular Filtration Rate , Glucose Level 335#H, Calcium Level 9.6, Total Bilirubin 0.4, Aspartate Amino Transf (AST/SGOT) 14L, Alanine Aminotransferase ( ALT/SGPT) 25, Alkaline Phosphatase 118H, Total Protein 8.2, Albumin 2.7L, Globulin 5.5, Albumin/Globulin Ratio 0.5L Height (Feet): 5 Height (Inches): 0.00 Weight (Pounds): 145 Objective confused bedbound, contracted coarse ronchi - improved RR abd soft, (+) 22Fr GT ext contracted and stiff OBS Darrell Griffith MD Oct 18, 2019 21:02
--- NOTE | 2019-10-18 21:06 | NUR ---
HAND-OFF: Report given to [facility] RN. Pt stable and now in [id number].
[2019-10-18] MEDS ORDERED: Lactulose 20gm/30ml UDC GT PRN (21:09)
[2019-10-18] MEDS ORDERED: Milk of Magnesia 30ml Ud GT PRN (21:10)
--- NOTE | 2019-10-18 21:10 | NUR ---
NURSE NOTES: Received patient awake, confused, no SOB, with essentially normal vital signs.
[2019-10-18] MEDS: Miralax 17gm pkt GT SCH (21:24)
[2019-10-19] VITALS: BP 152/54
--- NOTE | 2019-10-19 01:15 | NUR ---
HAND-OFF: Report given to FELY Ramírez.
[2019-10-19 04:01] VITALS: BP 130/69
[2019-10-19] MEDS: Glycopyrrolate 0.2mg/ml 1ml Vial IV SCH ×3 (05:46→21:25)
[2019-10-19] MEDS: Metoclopramide 10mg/2ml Inj IVP SCH ×3 (05:46→21:34)
[2019-10-19 07:10] LABS: BASOPHILS % (AUTO) 0.5 % (0.0-2.0); EOSINOPHILS % (AUTO) 2.8 % (0.0-3.0); HEMATOCRIT 29.6 % (37.0-47.0); HEMOGLOBIN 9.3 G/DL (12.0-16.0); LYMPHOCYTES % (AUTO) 15.6 % (20.0-45.0); MEAN CORPUSCULAR VOLUME 91 FL (80-99); MONOCYTES % (AUTO) 8.7 % (1.0-10.0); NEUTROPHILS % (AUTO) 72.4 % (45.0-75.0); PLATELET COUNT 223 K/UL (150-450); RED BLOOD COUNT 3.27 M/UL (4.20-5.40); RED CELL DISTRIBUTION WIDTH 15.6 % (11.6-14.8); WHITE BLOOD COUNT 8.8 K/UL (4.8-10.8)
[2019-10-19 07:36] LABS: ALANINE AMINOTRANSFERASE 17 U/L (12-78); ALBUMIN 2.7 G/DL (3.4-5.0); ALBUMIN/GLOBULIN RATIO 0.5 (1.0-2.7); ALKALINE PHOSPHATASE 111 U/L (46-116); ANION GAP 6 mmol/L (5-15); ASPARTATE AMINO TRANSFERASE 13 U/L (15-37); BILIRUBIN,TOTAL 0.4 MG/DL (0.2-1.0); BLOOD UREA NITROGEN 26 mg/dL (7-18); CALCIUM 9.7 MG/DL (8.5-10.1); CARBON DIOXIDE 34 MMOL/L (21-32); CHLORIDE 110 MMOL/L (98-107); CREATININE 1.7 MG/DL (0.55-1.30); POTASSIUM 4.4 MMOL/L (3.5-5.1); SODIUM 150 MMOL/L (136-145)
[2019-10-19 08:00] VITALS: BP 149/63
--- NOTE | 2019-10-19 08:20 | NUR ---
NURSE NOTES: Eyes closed arousable to name and touch,respirations unlabored,02 on at 2 L N/C.G-tube in place to gravity,noted a light clear christa color drainage noted.IV fluids infusing as ordered.Call light within reach,bed alarm is on.
[2019-10-19] MEDS: Albuterol/Ipratropium 3ml neb HHN SCH ×4 (08:47→19:42)
[2019-10-19] MEDS: Heparin 5000 units/ml inj SUBQ SCH ×2 (09:52→21:25)
[2019-10-19] MEDS: Aspirin Baby 81mg GT SCH (10:04)
[2019-10-19] MEDS: levETIRAcetam 500mg/5ml Liquid GT SCH ×2 (10:04→21:23)
--- NOTE | 2019-10-19 10:29 | Infectious Diseases Prog Note ---
Assessment/Plan Assessment/Plan antibiotics : levoquin A 1. pseudomonas UTI 2. renal failure improving 3. hypertension 4. CHF P 1. continue po levoquin 5 more days 2. will follow up cultures Subjective ROS Limited/Unobtainable: Yes Allergies: Coded Allergies: No Known Allergies (Verified , 12/31/09) Objective Vital Signs Last 24 Hour Vital Signs Date Time Temp Pulse Resp B/P (MAP) Pulse Ox O2 Delivery O2 Flow Rate FiO2 10/19/19 09:09 95 Nasal Cannula 2.0 28 10/19/19 08:47 81 18 96 Nasal Cannula 2.0 28 75 16 95 10/19/19 04:01 98.3 71 25 130/69 (89) 92 10/19/19 00:00 97.8 66 22 152/54 (86) 100 10/18/19 21:00 97.7 70 20 111/79 (90) 100 10/18/19 21:00 Nasal Cannula 2.0 10/18/19 16:00 64 10/18/19 15:44 98.1 68 18 100/63 (75) 92 10/18/19 15:15 84 18 99 Nasal Cannula 2.0 28 80 20 94 10/18/19 12:00 64 10/18/19 12:00 98.1 63 18 140/58 (85) 96 10/18/19 11:39 70 16 100 Nasal Cannula 2.0 28 72 18 96 Height (Feet): 5 Height (Inches): 0.00 Weight (Pounds): 144 Respiratory/Chest: rhonchi - bilaterally Cardiovascular: normal rate, regular rhythm, no gallop/murmur Abdomen: soft, non tender, other - GT Extremities: other - + edema Laboratory Tests Test 10/19/19 05:45 White Blood Count 8.8 K/UL (4.8-10.8) Red Blood Count 3.27 M/UL (4.20-5.40) L Hemoglobin 9.3 G/DL (12.0-16.0) L Hematocrit 29.6 % (37.0-47.0) L Mean Corpuscular Volume 91 FL (80-99) Mean Corpuscular Hemoglobin 28.4 PG (27.0-31.0) Mean Corpuscular Hemoglobin Concent 31.4 G/DL (32.0-36.0) L Red Cell Distribution Width 15.6 % (11.6-14.8) H Platelet Count 223 K/UL (150-450) Mean Platelet Volume 5.9 FL (6.5-10.1) L Neutrophils (%) (Auto) 72.4 % (45.0-75.0) Lymphocytes (%) (Auto) 15.6 % (20.0-45.0) L Monocytes (%) (Auto) 8.7 % (1.0-10.0) Eosinophils (%) (Auto) 2.8 % (0.0-3.0) Basophils (%) (Auto) 0.5 % (0.0-2.0) Sodium Level 150 MMOL/L (136-145) H Potassium Level 4.4 MMOL/L (3.5-5.1) Chloride Level 110 MMOL/L (98-107) H Carbon Dioxide Level 34 MMOL/L (21-32) H Anion Gap 6 mmol/L (5-15) Blood Urea Nitrogen 26 mg/dL (7-18) H Creatinine 1.7 MG/DL (0.55-1.30) H Estimat Glomerular Filtration Rate 35.0 mL/min (>60) Glucose Level 330 MG/DL (74-106) H Calcium Level 9.7 MG/DL (8.5-10.1) Magnesium Level 2.2 MG/DL (1.8-2.4) Total Bilirubin 0.4 MG/DL (0.2-1.0) Aspartate Amino Transf (AST/SGOT) 13 U/L (15-37) L Alanine Aminotransferase (ALT/SGPT) 17 U/L (12-78) Alkaline Phosphatase 111 U/L (46-116) Pro-B-Type Natriuretic Peptide 4825 pg/mL (0-125) H Total Protein 7.9 G/DL (6.4-8.2) Albumin 2.7 G/DL (3.4-5.0) L Globulin 5.2 g/dL Albumin/Globulin Ratio 0.5 (1.0-2.7) L Thyroid Stimulating Hormone (TSH) 5.851 uiU/mL (0.358-3.740) Current Medications Medications (Trade) Dose Ordered Sig/Aaron Route PRN Reason Start Time Stop Time Status Last Admin Dose Admin Albuterol/ Ipratropium (Albuterol/ Ipratropium) 3 ml QIDRT HHN 10/19/19 07:00 10/20/19 10:59 10/19/19 08:47 Aspirin (ASA) 81 mg DAILY GT 10/19/19 09:00 11/14/19 08:59 10/19/19 10:04 Atropine Sulfate (Atropine Opth Jami) 1 drop Q8HR SL 10/18/19 22:00 11/16/19 09:59 10/19/19 05:47 Clonidine HCl (Catapres Tab) 0.1 mg Q6H PRN GT SBP>160 10/18/19 21:08 11/17/19 21:07 Dextrose 1,000 ml @ 75 mls/hr [id number] IV 10/18/19 21:15 11/17/19 19:02 10/18/19 21:23 Gabapentin (Neurontin) 100 mg BID@0900,2100 GT 10/18/19 22:00 11/17/19 21:59 10/19/19 09:53 Glycopyrrolate (Robinul) 0.2 mg Q8HR IV 10/18/19 22:00 11/16/19 13:59 10/19/19 05:46 Heparin Sodium (Porcine) (Heparin 5000 units/ml) 5,000 units EVERY 12 HOURS SUBQ 10/18/19 22:00 11/17/19 21:59 10/19/19 09:52 Lactulose (Cephulac) 20 gm DAILYPRN PRN GT Constipation 10/18/19 21:09 11/17/19 21:08 Lansoprazole (Prevacid) 30 mg DAILY GT 10/19/19 09:00 11/14/19 08:59 10/19/19 09:51 Levetiracetam (Keppra) 1,000 mg BID@0900,2100 GT 10/18/19 22:00 11/17/19 21:59 10/19/19 10:04 Levofloxacin (Levaquin) 250 mg DAILY GT 10/19/19 09:00 10/26/19 08:59 10/19/19 09:54 Levothyroxine Sodium (Synthroid) 75 mcg DAILY@0630 GT 10/19/19 06:30 11/15/19 06:29 10/19/19 05:46 Magnesium Hydroxide (Mom) 30 ml DAILYPRN PRN GT Constipation 10/18/19 21:10 11/17/19 21:09 Metoclopramide HCl (Reglan) 2.5 mg Q8HR IVP 10/18/19 22:00 11/17/19 21:59 10/19/19 05:46 Polyethylene Glycol (Miralax) 17 gm BEDTIME GT 10/18/19 22:00 11/17/19 21:59 10/18/19 21:24 Tyrel Prieto MD Oct 19, 2019 10:29
[2019-10-19 12:00] VITALS: BP 123/73
[2019-10-19] MEDS ORDERED: D5 1/2NS 1000ml IV ONE (13:51)
[2019-10-19 16:00] VITALS: BP 130/97
--- NOTE | 2019-10-19 17:05 | NUR ---
CASE MANAGEMENT:REVIEW SI;PSEUDOMONAS UTI. HTN. NCHF. 98.4 78 15 96% 2L NC H/H 9.3/29.6 NA 150 CO2 34 BUN 26 CR 1.7 BG 330 ISLEVAQUIN GT QD PREVACID GT QD DUO NEB HHN QIDHRT ATROPINE SULFATE SL Q8 HRS MED SURG STATUS PLAN;J-TUBE DCP;FROM [place]
--- NOTE | 2019-10-19 18:56 | Pulmonology Progress Note ---
Assessment/Plan Assessment/Plan Pulmonary Progress Note HPI: Patient is an 79-year-old woman with history of Diabetes, Renal failure, Seizures, admitted with cough, congestion and respiratory distress, noted to have Psudomonal UTI, basal atelectasis on CT chest PAST MEDICAL HISTORY: 1. History of diabetes. 2. Pneumonia. 3. Renal failure. 4. Congestive heart failure. 5. Hypertension 6. Hypothyroidism 7. Previous G tube ALLERGIES: No known drug allergies. Progress Note date and time: 10/18/19 0811 Assessment/Plan Assessment/Plan 1. Urinary tract infection. 2. basal atelectasis 3. Renal failure. 4. Hypertension. 5. Congestive heart failure. 6. Seizure History 7. Diabetes 8. Hypernatremia 9. EDGAR PLAN IVF repeat imaging and monitor for overload antibiotics per ID monitor fluid status meds noted oxygen as is respiratory care as is close followup for change impression, plan, and exam edited and reviewed in detail care discussed with RN Subjective Allergies: Coded Allergies: No Known Allergies (Verified , 12/31/09) Subjective care noted events noted and discussed on oxygen Objective Vital Signs Noted Objective WDWN NAD reduced breath sounds bilaterally without rhonchi or wheeze [id number] without MRG NABS nontender no HSM no CCE nonfocal reviewed and edited Laboratory Tests 10/18/19 06:27: Sodium Level 152H, Potassium Level 3.6, Chloride Level 110H, Carbon Dioxide Level 37H, Anion Gap 6, Blood Urea Nitrogen 32H, Creatinine 1.6H, Estimat Glomerular Filtration Rate , Glucose Level 335#H, Calcium Level 9.6, Total Bilirubin 0.4, Aspartate Amino Transf (AST/SGOT) 14L, Alanine Aminotransferase ( ALT/SGPT) 25, Alkaline Phosphatase 118H, Total Protein 8.2, Albumin 2.7L, Globulin 5.5, Albumin/Globulin Ratio 0.5L Subjective ROS Limited/Unobtainable: No Allergies: Coded Allergies: No Known Allergies (Verified , 12/31/09) Objective Last 24 Hour Vital Signs Date Time Temp Pulse Resp B/P (MAP) Pulse Ox O2 Delivery O2 Flow Rate FiO2 10/19/19 16:42 70 19 100 Nasal Cannula 2.0 28 67 16 100 10/19/19 13:41 78 19 98 Nasal Cannula 2.0 28 10/19/19 13:40 75 17 96 Nasal Cannula 2.0 28 10/19/19 13:25 77 18 97 Nasal Cannula 2.0 28 70 15 96 10/19/19 12:00 98.4 61 19 123/73 (90) 99 10/19/19 09:09 95 Nasal Cannula 2.0 28 10/19/19 09:00 Nasal Cannula 4.0 10/19/19 08:47 81 18 96 Nasal Cannula 2.0 28 75 16 95 10/19/19 08:00 149/63 (91) 10/19/19 04:01 98.3 71 25 130/69 (89) 92 10/19/19 00:00 97.8 66 22 152/54 (86) 100 10/18/19 21:00 97.7 70 20 111/79 (90) 100 10/18/19 21:00 Nasal Cannula 2.0 Intake and Output 10/18/19 10/19/19 19:00 07:00 Intake Total 675 ml Output Total 800 ml Balance -125 ml IV Total 675 ml Output Urine Total 400 ml Other 400 ml # Voids 1 # Bowel Movements 1 Laboratory Tests 10/19/19 05:45: White Blood Count 8.8, Red Blood Count 3.27L, Hemoglobin 9.3L, Hematocrit 29.6L , Mean Corpuscular Volume 91, Mean Corpuscular Hemoglobin 28.4, Mean Corpuscular Hemoglobin Concent 31.4L, Red Cell Distribution Width 15.6H, Platelet Count 223, Mean Platelet Volume 5.9L, Neutrophils (%) (Auto) 72.4, Lymphocytes (%) (Auto) 15.6L, Monocytes (%) (Auto) 8.7, Eosinophils (%) (Auto) 2.8, Basophils (%) (Auto) 0.5, Sodium Level 150H, Potassium Level 4.4, Chloride Level 110H, Carbon Dioxide Level 34H, Anion Gap 6, Blood Urea Nitrogen 26H, Creatinine 1.7H, Estimat Glomerular Filtration Rate 35.0, Glucose Level 330H, Calcium Level 9.7, Magnesium Level 2.2, Total Bilirubin 0.4, Aspartate Amino Transf (AST/SGOT) 13L, Alanine Aminotransferase (ALT/SGPT) 17, Alkaline Phosphatase 111, Pro-B-Type Natriuretic Peptide 4825H, Total Protein 7.9, Albumin 2.7L, Globulin 5.2, Albumin/Globulin Ratio 0.5L, Thyroid Stimulating Hormone (TSH) 5.851H Current Medications Medications (Trade) Dose Ordered Sig/Aaron Route PRN Reason Start Time Stop Time Status Last Admin Dose Admin Albuterol/ Ipratropium (Albuterol/ Ipratropium) 3 ml QIDRT HHN 10/19/19 07:00 10/20/19 10:59 10/19/19 13:25 Aspirin (ASA) 81 mg DAILY GT 10/19/19 09:00 11/14/19 08:59 10/19/19 10:04 Atropine Sulfate (Atropine Opth Jami) 1 drop Q8HR SL 10/18/19 22:00 11/16/19 09:59 10/19/19 14:22 Clonidine HCl (Catapres Tab) 0.1 mg Q6H PRN GT SBP>160 10/18/19 21:08 11/17/19 21:07 Dextrose 1,000 ml @ 75 mls/hr [id number] IV 10/18/19 21:15 11/17/19 19:02 10/19/19 11:15 Gabapentin (Neurontin) 100 mg BID@0900,2100 GT 10/18/19 22:00 11/17/19 21:59 10/19/19 09:53 Glycopyrrolate (Robinul) 0.2 mg Q8HR IV 10/18/19 22:00 11/16/19 13:59 10/19/19 14:22 Heparin Sodium (Porcine) (Heparin 5000 units/ml) 5,000 units EVERY 12 HOURS SUBQ 10/18/19 22:00 11/17/19 21:59 10/19/19 09:52 Lactulose (Cephulac) 20 gm DAILYPRN PRN GT Constipation 10/18/19 21:09 11/17/19 21:08 Lansoprazole (Prevacid) 30 mg DAILY GT 10/19/19 09:00 11/14/19 08:59 10/19/19 09:51 Levetiracetam (Keppra) 1,000 mg BID@0900,2100 GT 10/18/19 22:00 11/17/19 21:59 10/19/19 10:04 Levofloxacin (Levaquin) 250 mg DAILY GT 10/19/19 09:00 10/26/19 08:59 10/19/19 09:54 Levothyroxine Sodium (Synthroid) 75 mcg DAILY@0630 GT 10/19/19 06:30 11/15/19 06:29 10/19/19 05:46 Magnesium Hydroxide (Mom) 30 ml DAILYPRN PRN GT Constipation 10/18/19 21:10 11/17/19 21:09 Metoclopramide HCl (Reglan) 2.5 mg Q8HR IVP 10/18/19 22:00 11/17/19 21:59 10/19/19 14:23 Polyethylene Glycol (Miralax) 17 gm BEDTIME GT 10/18/19 22:00 11/17/19 21:59 10/18/19 21:24 Kavon Seals MD Oct 19, 2019 18:56
--- NOTE | 2019-10-19 19:45 | NUR ---
NURSE NOTES: Pt. received from FELY Almaguer. Pt. nonverbal, no indications of pain at this time, no signs of respiratory distress at this time. Gtube to drainage, draining well. IV right wrist 24g asymptomatic, intact and patent; D5W at 75cc/hr. Bed is low and locked, head of bed elevated, side rails x3 up and padded, bed alarm active, and call light is in reach. Will continue to monitor.
[2019-10-19 20:00] VITALS: BP 142/68
--- NOTE | 2019-10-19 20:23 | General Progress Note ---
Assessment/Plan Problem List: (1) Diabetes mellitus ICD Codes: E11.9 - Type 2 diabetes mellitus without complications SNOMED: 87617014 (2) Encephalopathy acute ICD Codes: G93.40 - Encephalopathy, unspecified SNOMED: 9629752 (3) Pneumonia ICD Codes: J18.9 - Pneumonia, unspecified organism SNOMED: 893827570 (4) HTN (hypertension) ICD Codes: I10 - Essential (primary) hypertension SNOMED: 40478615 (5) CHF (congestive heart failure) ICD Codes: I50.9 - Heart failure, unspecified SNOMED: 50215923 Qualifiers: Qualified Codes: I50.9 - Heart failure, unspecified (6) ARF (acute renal failure) ICD Codes: N17.9 - Acute kidney failure, unspecified SNOMED: 30136765 Qualifiers: Qualified Codes: N17.9 - Acute kidney failure, unspecified Status: stable Assessment/Plan: resp care suctioning iv abx hypotonic ivf. follow up labs glycopyrolate and atropine drops reglan follow up cultures gi eval appreciated ct chest reviewed- suspect aspiration of feeds d/w sister nicola and atenia- agrees with J tube Subjective ROS Limited/Unobtainable: No Constitutional: Reports: malaise, weakness HEENT: Reports: no symptoms Cardiovascular: Reports: no symptoms Respiratory: Reports: cough, shortness of breath, sputum Gastrointestinal/Abdominal: Reports: difficulty swallowing Genitourinary: Reports: no symptoms Neurologic/Psychiatric: Reports: pre-existing deficit, seizure Endocrine: Reports: no symptoms Hematologic/Lymphatic: Reports: no symptoms Allergies: Coded Allergies: No Known Allergies (Verified , 12/31/09) All Systems: reviewed and negative except above Subjective less congested. not tolerating feeds. high residuals. Na trending down. CT noted. Objective Last 24 Hour Vital Signs Date Time Temp Pulse Resp B/P (MAP) Pulse Ox O2 Delivery O2 Flow Rate FiO2 10/19/19 19:46 99 Nasal Cannula 2.0 28 10/19/19 19:45 65 18 100 Nasal Cannula 2.0 28 59 18 98 10/19/19 16:42 70 19 100 Nasal Cannula 2.0 28 67 16 100 10/19/19 13:41 78 19 98 Nasal Cannula 2.0 28 10/19/19 13:40 75 17 96 Nasal Cannula 2.0 28 10/19/19 13:25 77 18 97 Nasal Cannula 2.0 28 70 15 96 10/19/19 12:00 98.4 61 19 123/73 (90) 99 10/19/19 09:09 95 Nasal Cannula 2.0 28 10/19/19 09:00 Nasal Cannula 4.0 10/19/19 08:47 81 18 96 Nasal Cannula 2.0 28 75 16 95 10/19/19 08:00 149/63 (91) 10/19/19 04:01 98.3 71 25 130/69 (89) 92 10/19/19 00:00 97.8 66 22 152/54 (86) 100 10/18/19 21:00 97.7 70 20 111/79 (90) 100 10/18/19 21:00 Nasal Cannula 2.0 Intake and Output 10/18/19 10/19/19 19:00 07:00 Intake Total 675 ml Output Total 800 ml Balance -125 ml IV Total 675 ml Output Urine Total 400 ml Other 400 ml # Voids 1 # Bowel Movements 1 Laboratory Tests 10/19/19 05:45: White Blood Count 8.8, Red Blood Count 3.27L, Hemoglobin 9.3L, Hematocrit 29.6L , Mean Corpuscular Volume 91, Mean Corpuscular Hemoglobin 28.4, Mean Corpuscular Hemoglobin Concent 31.4L, Red Cell Distribution Width 15.6H, Platelet Count 223, Mean Platelet Volume 5.9L, Neutrophils (%) (Auto) 72.4, Lymphocytes (%) (Auto) 15.6L, Monocytes (%) (Auto) 8.7, Eosinophils (%) (Auto) 2.8, Basophils (%) (Auto) 0.5, Sodium Level 150H, Potassium Level 4.4, Chloride Level 110H, Carbon Dioxide Level 34H, Anion Gap 6, Blood Urea Nitrogen 26H, Creatinine 1.7H, Estimat Glomerular Filtration Rate 35.0, Glucose Level 330H, Calcium Level 9.7, Magnesium Level 2.2, Total Bilirubin 0.4, Aspartate Amino Transf (AST/SGOT) 13L, Alanine Aminotransferase (ALT/SGPT) 17, Alkaline Phosphatase 111, Pro-B-Type Natriuretic Peptide 4825H, Total Protein 7.9, Albumin 2.7L, Globulin 5.2, Albumin/Globulin Ratio 0.5L, Thyroid Stimulating Hormone (TSH) 5.851H Height (Feet): 5 Height (Inches): 0.00 Weight (Pounds): 144 Objective General Appearance: WD/WN, alert, confused Neck: supple Cardiovascular: normal rate Respiratory/Chest: decreased crackles/rales, rhonchi - bilaterally Abdomen: normal bowel sounds, non tender, soft, no organomegaly Edema: no edema noted Arm (L), no edema noted Arm (R), no edema noted Leg (L), no edema noted Leg (R), no edema noted Pedal (L), no edema noted Pedal (R), no edema noted Generalized Neurologic: alert, disoriented, unresponsive, aphasia Jeffrey Crowder MD Oct 19, 2019 20:23
--- NOTE | 2019-10-19 20:39 | NUR ---
NURSE NOTES: Turned and position,skin care give.Bed alarm on,call light within reach
[2019-10-19] MEDS: Miralax 17gm pkt GT SCH (21:24)
--- NOTE | 2019-10-19 21:56 | General Progress Note ---
Assessment/Plan Status: stable Assessment/Plan: Assessment - h/o gastroparesis and TF intolerance - s/p G-J conversion, Mid Sep, at [facility] - OBS - resp distress - contracted Recommendations - Hold feeds - GT to gravity - abx , pulm toilet - EGD with G --> J in am Subjective Allergies: Coded Allergies: No Known Allergies (Verified , 12/31/09) Subjective above noted breathing better off of feeds per PMD, family have agreed to G-->J conversion Objective Last 24 Hour Vital Signs Date Time Temp Pulse Resp B/P (MAP) Pulse Ox O2 Delivery O2 Flow Rate FiO2 10/19/19 19:46 99 Nasal Cannula 2.0 28 10/19/19 19:45 65 18 100 Nasal Cannula 2.0 28 59 18 98 10/19/19 16:42 70 19 100 Nasal Cannula 2.0 28 67 16 100 10/19/19 16:00 98.6 87 18 130/97 (108) 100 10/19/19 13:41 78 19 98 Nasal Cannula 2.0 28 10/19/19 13:40 75 17 96 Nasal Cannula 2.0 28 10/19/19 13:25 77 18 97 Nasal Cannula 2.0 28 70 15 96 10/19/19 12:00 98.4 61 19 123/73 (90) 99 10/19/19 09:09 95 Nasal Cannula 2.0 28 10/19/19 09:00 Nasal Cannula 4.0 10/19/19 08:47 81 18 96 Nasal Cannula 2.0 28 75 16 95 10/19/19 08:00 149/63 (91) 10/19/19 04:01 98.3 71 25 130/69 (89) 92 10/19/19 00:00 97.8 66 22 152/54 (86) 100 Intake and Output 10/18/19 10/19/19 19:00 07:00 Intake Total 675 ml Output Total 800 ml Balance -125 ml IV Total 675 ml Output Urine Total 400 ml Other 400 ml # Voids 1 # Bowel Movements 1 Laboratory Tests 10/19/19 05:45: White Blood Count 8.8, Red Blood Count 3.27L, Hemoglobin 9.3L, Hematocrit 29.6L , Mean Corpuscular Volume 91, Mean Corpuscular Hemoglobin 28.4, Mean Corpuscular Hemoglobin Concent 31.4L, Red Cell Distribution Width 15.6H, Platelet Count 223, Mean Platelet Volume 5.9L, Neutrophils (%) (Auto) 72.4, Lymphocytes (%) (Auto) 15.6L, Monocytes (%) (Auto) 8.7, Eosinophils (%) (Auto) 2.8, Basophils (%) (Auto) 0.5, Sodium Level 150H, Potassium Level 4.4, Chloride Level 110H, Carbon Dioxide Level 34H, Anion Gap 6, Blood Urea Nitrogen 26H, Creatinine 1.7H, Estimat Glomerular Filtration Rate 35.0, Glucose Level 330H, Calcium Level 9.7, Magnesium Level 2.2, Total Bilirubin 0.4, Aspartate Amino Transf (AST/SGOT) 13L, Alanine Aminotransferase (ALT/SGPT) 17, Alkaline Phosphatase 111, Pro-B-Type Natriuretic Peptide 4825H, Total Protein 7.9, Albumin 2.7L, Globulin 5.2, Albumin/Globulin Ratio 0.5L, Thyroid Stimulating Hormone (TSH) 5.851H Height (Feet): 5 Height (Inches): 0.00 Weight (Pounds): 144 Objective confused bedbound, contracted coarse ronchi - improved RR abd soft, (+) 22Fr GT ext contracted and stiff OBS Darrell Griffith MD Oct 19, 2019 21:56
--- NOTE | 2019-10-19 23:00 | NUR ---
NURSE NOTES: Pt. difficulty coughing and nonproductive. Oral suctioning used but very scant sputum suctioned. Pt. does not appear in respiratory distress, O2 sat 97% on 2L NC. Breath sounds diminished with slight expiratory rhonchi. Will continue to monitor.
[2019-10-20] VITALS (10 sets, daily range): BP systolic 126–162; BP diastolic 42–79
--- NOTE | 2019-10-20 03:45 | Progress Note ---
DATE: 10/19/2019 CARDIOLOGY PROGRESS NOTE SUBJECTIVE: Slightly less congested, not tolerating feedings due to residual. Discussed with gastrointestinal and plans in place for ____ tube conversion. OBJECTIVE: VITAL SIGNS: Blood pressure 130/97 earlier, now 142/68, heart rate 72, respiratory rate 18, and afebrile. LUNGS: Bilateral breath sounds. Rhonchi. HEART: Regular rhythm and rate. Normal S1 and S2 with a 1/6 systolic murmur at base. ABDOMEN: Soft and nontender. G-tube intact. EXTREMITIES: No edema. LABORATORY DATA: White count 8.8 and hemoglobin 9.3. Sodium 150, bicarbonate 34, chloride 110, BUN 26, creatinine 1.7, and albumin 2.7. TSH 5.8. Pro-natriuretic peptide 4825. IMPRESSION: 1. Aspiration dysphagia, gastroparesis. 2. Acute on chronic diastolic congestive heart failure. 3. Dehydration. 4. Hypernatremia. 5. Paroxysmal atrial ectopy. 6. Acute on chronic renal failure, improved. 7. Moderate protein-calorie malnutrition. 8. Hypothyroidism. 9. Hypertensive heart disease with labile blood pressure. PLAN: 1. Hypotonic IV fluids. 2. No diuretics. 3. Increase thyroid replacement. 4. Monitor volume status, cardiorenal function and trend natriuretic peptide assay. 5. Stable for GJ tube conversion from cardiovascular standpoint. 6. Titrate antihypertensives for better blood pressure control. Kavon Peña M.D. DR: TITA JOB#: [id number] CC:
--- NOTE | 2019-10-20 03:51 | NUR ---
NURSE NOTES: Pt. sleeping at this time. No signs of respiratory distress. Will continue to monitor.
[2019-10-20] MEDS: Glycopyrrolate 0.2mg/ml 1ml Vial IV SCH ×3 (06:35→21:31)
[2019-10-20] MEDS: Metoclopramide 10mg/2ml Inj IVP SCH ×3 (06:35→21:32)
[2019-10-20 07:12] LABS: ALANINE AMINOTRANSFERASE 22 U/L (12-78); ALBUMIN 2.6 G/DL (3.4-5.0); ALBUMIN/GLOBULIN RATIO 0.5 (1.0-2.7); ALKALINE PHOSPHATASE 119 U/L (46-116); ANION GAP 6 mmol/L (5-15); ASPARTATE AMINO TRANSFERASE 12 U/L (15-37); BASOPHILS % (AUTO) 0.3 % (0.0-2.0); BILIRUBIN,TOTAL 0.6 MG/DL (0.2-1.0); BLOOD UREA NITROGEN 19 mg/dL (7-18); CALCIUM 9.9 MG/DL (8.5-10.1); CARBON DIOXIDE 32 MMOL/L (21-32); CHLORIDE 106 MMOL/L (98-107); CREATININE 1.5 MG/DL (0.55-1.30); EOSINOPHILS % (AUTO) 3.4 % (0.0-3.0); HEMATOCRIT 32.7 % (37.0-47.0); HEMOGLOBIN 10.1 G/DL (12.0-16.0); MEAN CORPUSCULAR VOLUME 89 FL (80-99); MONOCYTES % (AUTO) 5.6 % (1.0-10.0); NEUTROPHILS % (AUTO) 71.7 % (45.0-75.0); PLATELET COUNT 238 K/UL (150-450); POTASSIUM 3.6 MMOL/L (3.5-5.1); RED BLOOD COUNT 3.66 M/UL (4.20-5.40); RED CELL DISTRIBUTION WIDTH 15.4 % (11.6-14.8); SODIUM 144 MMOL/L (136-145); WHITE BLOOD COUNT 7.6 K/UL (4.8-10.8)
--- NOTE | 2019-10-20 07:30 | NUR ---
HAND-OFF: Report given to FELY Almaguer.
--- NOTE | 2019-10-20 07:39 | Anethesia Preoperative Eval ---
Anesthesia Pre-op PMH/ROS General Date of Evaluation: Oct 20, 2019 Time of Evaluation: 07:33 Anesthesiologist: Brandon ASA Score: ASA 4 Mallampati Score Class I : Soft palate, uvula, fauces, pillars visible Class II: Soft palate, uvula, fauces visible Class III: Soft palate, base of uvula visible Class IV: Only hard plate visible Mallampati Classification: Class III Surgeon: Janki Diagnosis: Dysphagia Surgical Procedure: Reposition of feeding tube Anesthesia History: none Family History: no anesthesia problems Allergies: Coded Allergies: No Known Allergies (Verified , 12/31/09) Medications: see eMAR Patient NPO?: Yes Past Medical History Cardiovascular: Reports: HTN, arrhythmia, other - CHF; Denies: CAD, HI, valve dz Pulmonary: Reports: other - aspirational pneumonia; Denies: asthma, COPD, ERIC Gastrointestinal/Genitourinary: Reports: GERD, CRI; Denies: ESRD, other Neurologic/Psychiatric: Reports: dementia, CVA; Denies: depression/anxiety, TIA, other Endocrine: Reports: DM, hypothyroidism; Denies: steroids, other HEENT: Reports: cataract (L); Denies: cataract (R), glaucoma, [place] (L), [place] (R), other Hematology/Immune: Reports: anemia Musculoskeletal/Integumentary: Reports: DJD, other - contracted; Denies: OA, RA, DDD, edema PMH Narrative: as above PSxH Narrative: see H&P Anesthesia Pre-op Phys. Exam Physician Exam Last Vital Signs Date Time Temp Pulse Resp B/P (MAP) Pulse Ox O2 Delivery O2 Flow Rate FiO2 10/20/19 04:00 98.7 74 18 138/66 (90) 99 10/19/19 21:00 Nasal Cannula 2.0 10/19/19 19:46 28 Constitutional: NAD Neurologic: other - unable to obtaine Cardiovascular: RRR Respiratory: other - diminished breath sounds, bilateral rheyls and cracles Gastrointestinal: S/NT/ND Airway Exam Mallampati Score: Class III MO: limited Neck: stiff ROM: limited Teeth: missing Dentures: no upper, no lower Anesthesia Pre-op A/P Labs Hematology Test 10/20/19 05:40 White Blood Count 7.6 K/UL (4.8-10.8) Red Blood Count 3.66 M/UL (4.20-5.40) L Hemoglobin 10.1 G/DL (12.0-16.0) L Hematocrit 32.7 % (37.0-47.0) L Mean Corpuscular Volume 89 FL (80-99) Mean Corpuscular Hemoglobin 27.6 PG (27.0-31.0) Mean Corpuscular Hemoglobin Concent 30.9 G/DL (32.0-36.0) L Red Cell Distribution Width 15.4 % (11.6-14.8) H Platelet Count 238 K/UL (150-450) Mean Platelet Volume 5.6 FL (6.5-10.1) L Neutrophils (%) (Auto) 71.7 % (45.0-75.0) Lymphocytes (%) (Auto) 19.0 % (20.0-45.0) L Monocytes (%) (Auto) 5.6 % (1.0-10.0) Eosinophils (%) (Auto) 3.4 % (0.0-3.0) H Basophils (%) (Auto) 0.3 % (0.0-2.0) Chemistry Test 10/20/19 05:40 Sodium Level 144 MMOL/L (136-145) Potassium Level 3.6 MMOL/L (3.5-5.1) Chloride Level 106 MMOL/L (98-107) Carbon Dioxide Level 32 MMOL/L (21-32) Anion Gap 6 mmol/L (5-15) Blood Urea Nitrogen 19 mg/dL (7-18) H Creatinine 1.5 MG/DL (0.55-1.30) H Estimat Glomerular Filtration Rate 40.5 mL/min (>60) Glucose Level 328 MG/DL (74-106) H Calcium Level 9.9 MG/DL (8.5-10.1) Total Bilirubin 0.6 MG/DL (0.2-1.0) Aspartate Amino Transf (AST/SGOT) 12 U/L (15-37) L Alanine Aminotransferase (ALT/SGPT) 22 U/L (12-78) Alkaline Phosphatase 119 U/L (46-116) H Total Protein 8.0 G/DL (6.4-8.2) Albumin 2.6 G/DL (3.4-5.0) L Globulin 5.4 g/dL Albumin/Globulin Ratio 0.5 (1.0-2.7) L Risk Assessment & Plan Assessment: ASA 4 Plan: MAC Status Change Before Surgery: Jony Momin MD Oct 20, 2019 07:39
--- NOTE | 2019-10-20 07:39 | NUR ---
NURSE NOTES: Patient opens eyes when name called and to touch,respirations unlabored. 02 on vai N/C at 2L ,IV fluids infusing as ordered.G-tube to gravity with dark green drainage noted..Patient has a purwick with light yellow urine noted.Patient is NPO for schedule procedure today.Bed alarm light is on.HOB is elevated.
[2019-10-20] MEDS ORDERED: fentaNYL 100 mcg/2 mL IV ONE (08:00)
[2019-10-20] MEDS ORDERED: Propofol 200mg/20ml IV ONE (08:00)
[2019-10-20] MEDS: Aspirin Baby 81mg GT SCH (08:07)
[2019-10-20] MEDS: Heparin 5000 units/ml inj SUBQ SCH ×2 (08:07→21:33)
[2019-10-20] MEDS: Albuterol/Ipratropium 3ml neb HHN SCH (08:11)
[2019-10-20] MEDS ORDERED: NS 500ML IVPB ONE (08:30)
--- NOTE | 2019-10-20 08:30 | Pre-Procedure Note/Attestation ---
Pre-Procedure Note/Attestation Complete Prior to Procedure Planned Procedure: not applicable Procedure Narrative: EGD with G to J Indications for Procedure Pre-Operative Diagnosis: dysphagia, gastroparesis Attestation I attest that I discussed the nature of the procedure; its benefits; risks and complications; and alternatives (and the risks and benefits of such alternatives ), prior to the procedure, with the patient (or the patient's legal sales service representative). I attest that, if there was a reasonable possibility of needing a blood transfusion, the patient (or the patient's legal sales service representative) was given the [facility] standardized written summary, pursuant to the Luis Devante Blood Safety Act ([place] Health and Safety Code # 1645, as amended). I attest that I re-evaluated the patient just prior to the surgery and that there has been no change in the patient's H&P, except as documented below: Darrell Griffith MD Oct 20, 2019 08:30
--- NOTE | 2019-10-20 08:30 | General Progress Note ---
Assessment/Plan Status: stable Assessment/Plan: Assessment - h/o gastroparesis and TF intolerance - s/p G-J conversion, Mid Sep, at [facility] - OBS - resp distress - contracted Recommendations - Hold feeds - GT to gravity - abx , pulm toilet - EGD with G --> J today Subjective Allergies: Coded Allergies: No Known Allergies (Verified , 12/31/09) Subjective above noted breathing OK d/w sister this am re procedure, including anesthesia to be given Objective Last 24 Hour Vital Signs Date Time Temp Pulse Resp B/P (MAP) Pulse Ox O2 Delivery O2 Flow Rate FiO2 10/20/19 04:00 98.7 74 18 138/66 (90) 99 10/20/19 00:00 99.0 72 20 136/69 (91) 100 10/19/19 21:00 Nasal Cannula 2.0 10/19/19 20:00 99.0 72 18 142/68 (92) 98 10/19/19 19:46 99 Nasal Cannula 2.0 28 10/19/19 19:45 65 18 100 Nasal Cannula 2.0 28 59 18 98 10/19/19 16:42 70 19 100 Nasal Cannula 2.0 28 67 16 100 10/19/19 16:00 98.6 87 18 130/97 (108) 100 10/19/19 13:41 78 19 98 Nasal Cannula 2.0 28 10/19/19 13:40 75 17 96 Nasal Cannula 2.0 28 10/19/19 13:25 77 18 97 Nasal Cannula 2.0 28 70 15 96 10/19/19 12:00 98.4 61 19 123/73 (90) 99 10/19/19 09:09 95 Nasal Cannula 2.0 28 10/19/19 09:00 Nasal Cannula 4.0 10/19/19 08:47 81 18 96 Nasal Cannula 2.0 28 75 16 95 Intake and Output 10/19/19 10/20/19 19:00 07:00 Intake Total 300 ml 750 ml Output Total 250 ml 500 ml Balance 50 ml 250 ml IV Total 300 ml 750 ml Output Urine Total 500 ml Other 250 ml # Voids 2 Laboratory Tests 10/20/19 05:40: White Blood Count 7.6, Red Blood Count 3.66L, Hemoglobin 10.1L, Hematocrit 32.7L , Mean Corpuscular Volume 89, Mean Corpuscular Hemoglobin 27.6, Mean Corpuscular Hemoglobin Concent 30.9L, Red Cell Distribution Width 15.4H, Platelet Count 238, Mean Platelet Volume 5.6L, Neutrophils (%) (Auto) 71.7, Lymphocytes (%) (Auto) 19.0L, Monocytes (%) (Auto) 5.6, Eosinophils (%) (Auto) 3.4H, Basophils (%) (Auto) 0.3, Sodium Level 144, Potassium Level 3.6, Chloride Level 106, Carbon Dioxide Level 32, Anion Gap 6, Blood Urea Nitrogen 19H, Creatinine 1.5H, Estimat Glomerular Filtration Rate 40.5, Glucose Level 328H, Calcium Level 9.9, Total Bilirubin 0.6, Aspartate Amino Transf (AST/SGOT) 12L, Alanine Aminotransferase (ALT/SGPT) 22, Alkaline Phosphatase 119H, Total Protein 8.0, Albumin 2.6L, Globulin 5.4, Albumin/Globulin Ratio 0.5L Height (Feet): 5 Height (Inches): 5.00 Weight (Pounds): 144 Objective confused bedbound, contracted coarse ronchi - improved RR abd soft, (+) 22Fr GT ext contracted and stiff OBS Darrell Griffith MD Oct 20, 2019 08:30
[2019-10-20] MEDS: levETIRAcetam 500mg/5ml Liquid GT SCH ×2 (09:00→21:31)
--- NOTE | 2019-10-20 09:20 | Immediate Post-Op Evaluation ---
Immediate Post-Op Evalulation Immediate Post-Op Evalulation Procedure: EGD reposition of feeeding tube G-tube to J tube conversion Date of Evaluation: Oct 20, 2019 Time of Evaluation: 09:19 IV Fluids: 300 Blood Products: none Estimated Blood Loss: none Urinary Output: none Blood Pressure Systolic: 142 Blood Pressure Diastolic: 58 Pulse Rate: 64 Respiratory Rate: 22 O2 Sat by Pulse Oximetry: 98 Temperature (Fahrenheit): 97.6 Pain Score (1-10): 1 Nausea: No Vomiting: No Complications none Patient Status: reacts, patent, none Hydration Status: adequate Jony Taylor MD Oct 20, 2019 09:20
--- NOTE | 2019-10-20 15:29 | NUR ---
CASE MANAGEMENT:REVIEW SI;S/P EGD W/ G-TUBE TO J-TUBE CONVERSION 98.1 79 22 162/46 92% 3L NC FIO2 @ 28% BUN 19 CR 1.5 BG 328 AST 12 IS;LEVAQUIN GT QD PREVACID GT QD KEPPRA GT BID REGLAN IV Q8 HRS MED SURG STATUS DCP;[facility]
--- NOTE | 2019-10-20 16:18 | NUR ---
*-* INSURANCE *-* ALL CLINICALS AND REVIEWS HAVE BEEN FAXED TO: REF# [id number] # [phone] FAX# [phone] REVIEWS/CLINICALS
--- NOTE | 2019-10-20 16:30 | General Progress Note ---
Assessment/Plan Problem List: (1) Diabetes mellitus ICD Codes: E11.9 - Type 2 diabetes mellitus without complications SNOMED: 21190675 (2) Encephalopathy acute ICD Codes: G93.40 - Encephalopathy, unspecified SNOMED: 3697259 (3) Pneumonia ICD Codes: J18.9 - Pneumonia, unspecified organism SNOMED: 249798811 (4) HTN (hypertension) ICD Codes: I10 - Essential (primary) hypertension SNOMED: 63088757 (5) CHF (congestive heart failure) ICD Codes: I50.9 - Heart failure, unspecified SNOMED: 27879460 Qualifiers: Qualified Codes: I50.9 - Heart failure, unspecified (6) ARF (acute renal failure) ICD Codes: N17.9 - Acute kidney failure, unspecified SNOMED: 97396519 Qualifiers: Qualified Codes: N17.9 - Acute kidney failure, unspecified Status: stable Assessment/Plan: resp care suctioning iv abx hypotonic ivf. follow up labs glycopyrolate and atropine drops reglan follow up cultures gi eval appreciated ct chest reviewed- suspect aspiration of feeds d/w sister nicola and wesley- agrees with J tube Subjective Time patient seen: 06:45 ROS Limited/Unobtainable: Yes Constitutional: Reports: malaise, weakness HEENT: Reports: no symptoms Cardiovascular: Reports: no symptoms Respiratory: Reports: cough, shortness of breath, sputum Gastrointestinal/Abdominal: Reports: difficulty swallowing, poor appetite, poor fluid intake Genitourinary: Reports: no symptoms Neurologic/Psychiatric: Reports: pre-existing deficit, seizure Endocrine: Reports: no symptoms Hematologic/Lymphatic: Reports: anemia Allergies: Coded Allergies: No Known Allergies (Verified , 12/31/09) All Systems: reviewed and negative except above Subjective less congested. not tolerating feeds. high residuals. Na trending down. Objective Last 24 Hour Vital Signs Date Time Temp Pulse Resp B/P (MAP) Pulse Ox O2 Delivery O2 Flow Rate FiO2 10/20/19 12:00 98.1 79 18 126/75 (92) 92 10/20/19 09:35 97.8 64 20 141/54 100 Nasal Cannula 3 10/20/19 09:25 64 21 146/57 100 Nasal Cannula 3 10/20/19 09:20 65 22 148/67 100 Nasal Cannula 3 10/20/19 09:20 64 22 98 10/20/19 09:15 97.1 67 21 162/46 100 Nasal Cannula 3 10/20/19 09:00 Nasal Cannula 2.0 10/20/19 08:00 98.6 75 18 129/42 (71) 100 10/20/19 04:00 98.7 74 18 138/66 (90) 99 10/20/19 00:00 99.0 72 20 136/69 (91) 100 10/19/19 21:00 Nasal Cannula 2.0 10/19/19 20:00 99.0 72 18 142/68 (92) 98 10/19/19 19:46 99 Nasal Cannula 2.0 28 10/19/19 19:45 65 18 100 Nasal Cannula 2.0 28 59 18 98 10/19/19 16:42 70 19 100 Nasal Cannula 2.0 28 67 16 100 Intake and Output 10/19/19 10/20/19 19:00 07:00 Intake Total 300 ml 750 ml Output Total 250 ml 500 ml Balance 50 ml 250 ml IV Total 300 ml 750 ml Output Urine Total 500 ml Other 250 ml # Voids 2 Laboratory Tests 10/20/19 05:40: White Blood Count 7.6, Red Blood Count 3.66L, Hemoglobin 10.1L, Hematocrit 32.7L , Mean Corpuscular Volume 89, Mean Corpuscular Hemoglobin 27.6, Mean Corpuscular Hemoglobin Concent 30.9L, Red Cell Distribution Width 15.4H, Platelet Count 238, Mean Platelet Volume 5.6L, Neutrophils (%) (Auto) 71.7, Lymphocytes (%) (Auto) 19.0L, Monocytes (%) (Auto) 5.6, Eosinophils (%) (Auto) 3.4H, Basophils (%) (Auto) 0.3, Sodium Level 144, Potassium Level 3.6, Chloride Level 106, Carbon Dioxide Level 32, Anion Gap 6, Blood Urea Nitrogen 19H, Creatinine 1.5H, Estimat Glomerular Filtration Rate 40.5, Glucose Level 328H, Calcium Level 9.9, Total Bilirubin 0.6, Aspartate Amino Transf (AST/SGOT) 12L, Alanine Aminotransferase (ALT/SGPT) 22, Alkaline Phosphatase 119H, Total Protein 8.0, Albumin 2.6L, Globulin 5.4, Albumin/Globulin Ratio 0.5L Height (Feet): 5 Height (Inches): 5.00 Weight (Pounds): 144 Objective General Appearance: WD/WN, alert, confused Neck: supple Cardiovascular: normal rate Respiratory/Chest: decreased crackles/rales, rhonchi - bilaterally Abdomen: normal bowel sounds, non tender, soft, no organomegaly Edema: no edema noted Arm (L), no edema noted Arm (R), no edema noted Leg (L), no edema noted Leg (R), no edema noted Pedal (L), no edema noted Pedal (R), no edema noted Generalized Neurologic: alert, disoriented, unresponsive, aphasia Jeffrey Crowder MD Oct 20, 2019 16:30
--- NOTE | 2019-10-20 17:15 | Pulmonology Progress Note ---
Assessment/Plan Assessment/Plan 1. Urinary tract infection. 2. mucous plugging and retained secretions; and associated Pneumonia 3. Renal failure. 4. Hypertension. 5. Congestive heart failure. 6. Seizure History 7. Diabetes 8. Hypernatremia 9. EDGAR PLAN hypotonic fluids with caution repeat imaging start antibiotics and CPT monitor fluid status meds noted oxygen as is respiratory care as is add levaquin based on urine culture results close followup for change impression, plan, and exam edited and reviewed in detail care discussed with RN Subjective Allergies: Coded Allergies: No Known Allergies (Verified , 12/31/09) Subjective care noted events noted and discussed on oxygen CT chest reviewed Objective Last 24 Hour Vital Signs Date Time Temp Pulse Resp B/P (MAP) Pulse Ox O2 Delivery O2 Flow Rate FiO2 10/20/19 16:00 98.0 72 18 127/79 (95) 99 10/20/19 12:00 98.1 79 18 126/75 (92) 92 10/20/19 09:35 97.8 64 20 141/54 100 Nasal Cannula 3 10/20/19 09:25 64 21 146/57 100 Nasal Cannula 3 10/20/19 09:20 65 22 148/67 100 Nasal Cannula 3 10/20/19 09:20 64 22 98 10/20/19 09:15 97.1 67 21 162/46 100 Nasal Cannula 3 10/20/19 09:00 Nasal Cannula 2.0 10/20/19 08:00 98.6 75 18 129/42 (71) 100 10/20/19 04:00 98.7 74 18 138/66 (90) 99 10/20/19 00:00 99.0 72 20 136/69 (91) 100 10/19/19 21:00 Nasal Cannula 2.0 10/19/19 20:00 99.0 72 18 142/68 (92) 98 10/19/19 19:46 99 Nasal Cannula 2.0 28 10/19/19 19:45 65 18 100 Nasal Cannula 2.0 28 59 18 98 Intake and Output 10/19/19 10/20/19 19:00 07:00 Intake Total 300 ml 750 ml Output Total 250 ml 500 ml Balance 50 ml 250 ml IV Total 300 ml 750 ml Output Urine Total 500 ml Other 250 ml # Voids 2 Objective WDWN NAD reduced breath sounds bilaterally without rhonchi or wheeze [id number] without MRG NABS nontender no HSM no CCE nonfocal reviewed and edited Laboratory Tests 10/20/19 05:40: White Blood Count 7.6, Red Blood Count 3.66L, Hemoglobin 10.1L, Hematocrit 32.7L , Mean Corpuscular Volume 89, Mean Corpuscular Hemoglobin 27.6, Mean Corpuscular Hemoglobin Concent 30.9L, Red Cell Distribution Width 15.4H, Platelet Count 238, Mean Platelet Volume 5.6L, Neutrophils (%) (Auto) 71.7, Lymphocytes (%) (Auto) 19.0L, Monocytes (%) (Auto) 5.6, Eosinophils (%) (Auto) 3.4H, Basophils (%) (Auto) 0.3, Sodium Level 144, Potassium Level 3.6, Chloride Level 106, Carbon Dioxide Level 32, Anion Gap 6, Blood Urea Nitrogen 19H, Creatinine 1.5H, Estimat Glomerular Filtration Rate 40.5, Glucose Level 328H, Calcium Level 9.9, Total Bilirubin 0.6, Aspartate Amino Transf (AST/SGOT) 12L, Alanine Aminotransferase (ALT/SGPT) 22, Alkaline Phosphatase 119H, Total Protein 8.0, Albumin 2.6L, Globulin 5.4, Albumin/Globulin Ratio 0.5L Current Medications Medications (Trade) Dose Ordered Sig/Aaron Route PRN Reason Start Time Stop Time Status Last Admin Dose Admin Aspirin (ASA) 81 mg DAILY GT 10/19/19 09:00 11/14/19 08:59 10/19/19 10:04 Atropine Sulfate (Atropine Opth Jami) 1 drop Q8HR SL 10/18/19 22:00 11/16/19 09:59 10/20/19 15:05 Clonidine HCl (Catapres Tab) 0.1 mg Q6H PRN GT SBP>160 10/18/19 21:08 11/17/19 21:07 Dextrose 1,000 ml @ 75 mls/hr [id number] IV 10/18/19 21:15 11/17/19 19:02 10/20/19 15:02 Gabapentin (Neurontin) 100 mg BID@0900,2100 GT 10/18/19 22:00 11/17/19 21:59 10/19/19 21:24 Glycopyrrolate (Robinul) 0.2 mg Q8HR IV 10/18/19 22:00 11/16/19 13:59 10/20/19 15:02 Heparin Sodium (Porcine) (Heparin 5000 units/ml) 5,000 units EVERY 12 HOURS SUBQ 10/18/19 22:00 11/17/19 21:59 10/19/19 21:25 Lactulose (Cephulac) 20 gm DAILYPRN PRN GT Constipation 10/18/19 21:09 11/17/19 21:08 Lansoprazole (Prevacid) 30 mg DAILY GT 10/19/19 09:00 11/14/19 08:59 10/19/19 09:51 Levetiracetam (Keppra) 1,000 mg BID@0900,2100 GT 10/18/19 22:00 11/17/19 21:59 10/19/19 21:23 Levofloxacin (Levaquin) 250 mg DAILY GT 10/19/19 09:00 10/26/19 08:59 10/19/19 09:54 Levothyroxine Sodium (Synthroid) 75 mcg DAILY@0630 GT 10/19/19 06:30 11/15/19 06:29 10/19/19 05:46 Magnesium Hydroxide (Mom) 30 ml DAILYPRN PRN GT Constipation 10/18/19 21:10 11/17/19 21:09 Metoclopramide HCl (Reglan) 2.5 mg Q8HR IVP 10/18/19 22:00 11/17/19 21:59 10/20/19 15:05 Polyethylene Glycol (Miralax) 17 gm BEDTIME GT 10/18/19 22:00 11/17/19 21:59 10/19/19 21:24 Torey Douglass MD Oct 20, 2019 17:15
--- NOTE | 2019-10-20 18:00 | NUR ---
NURSE NOTES:Patient resting,oral care was given.IV fluids continue to infuse as ordered. dressing to abdomen clean and and dry.
--- NOTE | 2019-10-20 19:43 | NUR ---
HAND-OFF: Report given to Jeanie GEIGER.
--- NOTE | 2019-10-20 19:56 | NUR ---
NURSE NOTES: Received patient in bed, asleep, non verbal, no acute distress noted, IV site is clean dry and intact, call light is within reach, bed is lowered, locked, alarm is on, will continue to monitor for comfort and safety.
[2019-10-20] MEDS: Miralax 17gm pkt GT SCH (21:00)
--- NOTE | 2019-10-20 21:47 | General Progress Note ---
Assessment/Plan Status: stable Assessment/Plan: Assessment - DM - h/o gastroparesis and TF intolerance - s/p G-J conversion, Mid Sep, at [facility] - OBS - resp distress - contracted Recommendations - may need to start SSI - GT to gravity - abx , pulm toilet - EGD with G --> J today Subjective Allergies: Coded Allergies: No Known Allergies (Verified , 12/31/09) Subjective above noted breathing OK d/w sister this am re procedure, including anesthesia to be given FS noted to be high Objective Last 24 Hour Vital Signs Date Time Temp Pulse Resp B/P (MAP) Pulse Ox O2 Delivery O2 Flow Rate FiO2 10/20/19 19:58 99 Nasal Cannula 2.0 28 10/20/19 16:00 98.0 72 18 127/79 (95) 99 10/20/19 12:00 98.1 79 18 126/75 (92) 92 10/20/19 09:35 97.8 64 20 141/54 100 Nasal Cannula 3 10/20/19 09:25 64 21 146/57 100 Nasal Cannula 3 10/20/19 09:20 65 22 148/67 100 Nasal Cannula 3 10/20/19 09:20 64 22 98 10/20/19 09:15 97.1 67 21 162/46 100 Nasal Cannula 3 10/20/19 09:00 Nasal Cannula 2.0 10/20/19 08:00 98.6 75 18 129/42 (71) 100 10/20/19 04:00 98.7 74 18 138/66 (90) 99 10/20/19 00:00 99.0 72 20 136/69 (91) 100 Intake and Output 10/19/19 10/20/19 19:00 07:00 Intake Total 300 ml 750 ml Output Total 250 ml 500 ml Balance 50 ml 250 ml IV Total 300 ml 750 ml Output Urine Total 500 ml Other 250 ml # Voids 2 Laboratory Tests 10/20/19 05:40: White Blood Count 7.6, Red Blood Count 3.66L, Hemoglobin 10.1L, Hematocrit 32.7L , Mean Corpuscular Volume 89, Mean Corpuscular Hemoglobin 27.6, Mean Corpuscular Hemoglobin Concent 30.9L, Red Cell Distribution Width 15.4H, Platelet Count 238, Mean Platelet Volume 5.6L, Neutrophils (%) (Auto) 71.7, Lymphocytes (%) (Auto) 19.0L, Monocytes (%) (Auto) 5.6, Eosinophils (%) (Auto) 3.4H, Basophils (%) (Auto) 0.3, Sodium Level 144, Potassium Level 3.6, Chloride Level 106, Carbon Dioxide Level 32, Anion Gap 6, Blood Urea Nitrogen 19H, Creatinine 1.5H, Estimat Glomerular Filtration Rate 40.5, Glucose Level 328H, Calcium Level 9.9, Total Bilirubin 0.6, Aspartate Amino Transf (AST/SGOT) 12L, Alanine Aminotransferase (ALT/SGPT) 22, Alkaline Phosphatase 119H, Total Protein 8.0, Albumin 2.6L, Globulin 5.4, Albumin/Globulin Ratio 0.5L Height (Feet): 5 Height (Inches): 5.00 Weight (Pounds): 144 Objective confused bedbound, contracted coarse ronchi - improved RR abd soft, (+) 22Fr GT ext contracted and stiff OBS Darrell Griffith MD Oct 20, 2019 21:47
[2019-10-20] MEDS: Piperacillin/Tazobactam 3.375 GM in NS 110 ML IVPB SCH (22:02)
[2019-10-21] VITALS: BP 153/54
--- NOTE | 2019-10-21 01:00 | Progress Note ---
DATE: 10/20/2019 CARDIOLOGY PROGRESS NOTE SUBJECTIVE: The patient is status post G to J-tube conversion. No complication. Still with congestion. OBJECTIVE: VITAL SIGNS: Blood pressure 127/79, pulse 72, respiratory rate 18, and T-max 99.7 degrees. LUNGS: Scattered rhonchi. CARDIAC: Regular rhythm and rate. Normal S1 and S2 with a 1/6 systolic murmur at base. ABDOMEN: Soft. GJ tube site intact. EXTREMITIES: Trace edema. LABORATORY DATA: White count 7.6 and hemoglobin 10.1. Potassium 3.6, BUN 19, and creatinine 1.5. Albumin 2.6. IMPRESSION: 1. Status post G to J-tube conversion. 2. Acute on chronic renal failure, improved. 3. Dehydration corrected. 4. Seizure disorder. 5. Dementia. 6. Acute on chronic diastolic congestive heart failure. 7. Hypertensive heart disease. 8. Aspiration. 9. Healthcare-associated pneumonia. PLAN: 1. Antimicrobials. 2. Respiratory hygiene. 3. Discontinue IV fluids once feedings are tolerated. 4. No plans for diuresis at this time. 5. P.r.n. antihypertensives for now. Kavon Peña M.D. DR: STU JOB#: [id number] CC:
[2019-10-21 04:00] VITALS: BP 132/89
[2019-10-21] MEDS: Piperacillin/Tazobactam 3.375 GM in NS 110 ML IVPB SCH ×3 (05:31→22:06)
[2019-10-21] MEDS: Glycopyrrolate 0.2mg/ml 1ml Vial IV SCH ×3 (05:32→21:15)
[2019-10-21] MEDS: Metoclopramide 10mg/2ml Inj IVP SCH ×3 (05:32→21:15)
[2019-10-21] MEDS: Albuterol/Ipratropium 3ml neb HHN SCH ×4 (07:22→18:53)
--- NOTE | 2019-10-21 07:30 | NUR ---
NURSE NOTES: Received report from FELY Malagon. Rounds done with RN and Dr. Griffith. Patient nonverbal. On nasal cannula 2L/min. No signs of distress or labored breathing. IV intact, patent, and infusing antibiotics. G port of GT-JT conversion to gravity, J port infusing feeding. Bed in lowest position with side rails up x3. Will continue with plan of care.
--- NOTE | 2019-10-21 07:30 | Operative Note - Dictated ---
DATE OF OPERATION: 10/20/2019 GASTROENTEROLOGY PROCEDURE REPORT PROCEDURE: Upper gastrointestinal endoscopy with conversion of gastrostomy to jejunostomy catheter. SURGEON: Darrell Griffith M.D. ANESTHESIA: Please see the separate anesthesiologist notes for details. PREOPERATIVE DIAGNOSIS: Dysphagia and gastroparesis. POSTOPERATIVE DIAGNOSES: 1. Status post gastrostomy to jejunostomy conversion. 2. Gastritis, status post biopsy. DESCRIPTION OF PROCEDURE: The procedure its risks, indications, alternatives, and possible complications were explained to the family and an informed consent was obtained. The patient was then sedated in supine position. A diagnostic upper endoscope was introduced into oropharynx and advanced to the duodenum. The mucosa of the stomach revealed diffuse gastritis with some erosions. Biopsies were sent to pathology for review. The previous gastrostomy tube was removed and has been replaced with a gastrojejunostomy catheter, which was advanced into the duodenum and double clip anchors placed. Position was verified endoscopically. The endoscope was removed and the patient was sent to recovery in good condition. COMPLICATIONS: None. RECOMMENDATIONS: 1. Restart tube feeding. 2. Check and treat Helicobacter pylori if positive. 3. Acid suppression. Darrell Griffith M.D. DR: DELIA JOB#: [id number] CC: JUAN MANUEL
[2019-10-21 08:00] VITALS: BP 131/64
--- NOTE | 2019-10-21 09:00 | Pulmonology Progress Note ---
Assessment/Plan Assessment/Plan 1. Urinary tract infection. 2. mucous plugging and retained secretions; and associated Pneumonia 3. Renal failure. 4. Hypertension. 5. Congestive heart failure. 6. Seizure History 7. Diabetes 8. Hypernatremia 9. EDGAR PLAN monitor need for fluids repeat imaging continue antibiotics and CPT with noted mucous plugging monitor fluid status meds noted oxygen as is respiratory care as is levaquin based on urine culture results close followup for change impression, plan, and exam edited and reviewed in detail care discussed with RN Subjective ROS Limited/Unobtainable: Yes Allergies: Coded Allergies: No Known Allergies (Verified , 12/31/09) Subjective care noted events noted and discussed on oxygen comfortable overnight Objective Last 24 Hour Vital Signs Date Time Temp Pulse Resp B/P (MAP) Pulse Ox O2 Delivery O2 Flow Rate FiO2 10/21/19 07:30 69 18 100 Nasal Cannula 2.0 28 71 19 98 10/21/19 07:20 98 Nasal Cannula 2.0 28 10/21/19 07:20 71 19 98 Nasal Cannula 2.0 28 10/21/19 04:00 98.9 72 18 132/89 (103) 97 10/21/19 00:00 99.5 76 20 153/54 (87) 98 10/20/19 22:35 Nasal Cannula 2.0 10/20/19 20:00 99.7 78 24 138/61 (86) 97 10/20/19 19:58 99 Nasal Cannula 2.0 28 10/20/19 16:00 98.0 72 18 127/79 (95) 99 10/20/19 12:00 98.1 79 18 126/75 (92) 92 10/20/19 09:35 97.8 64 20 141/54 100 Nasal Cannula 3 10/20/19 09:25 64 21 146/57 100 Nasal Cannula 3 10/20/19 09:20 65 22 148/67 100 Nasal Cannula 3 10/20/19 09:20 64 22 98 10/20/19 09:15 97.1 67 21 162/46 100 Nasal Cannula 3 10/20/19 09:00 Nasal Cannula 2.0 Intake and Output 10/20/19 10/21/19 19:00 07:00 Intake Total 1880 ml 320 ml Balance 1880 ml 320 ml Free Water 100 ml IV Total 1880 ml Tube Feeding 220 ml Objective WDWN NAD reduced breath sounds bilaterally without rhonchi or wheeze [id number] without MRG NABS nontender no HSM no CCE nonfocal reviewed and edited Current Medications Medications (Trade) Dose Ordered Sig/Aaron Route PRN Reason Start Time Stop Time Status Last Admin Dose Admin Albuterol/ Ipratropium (Albuterol/ Ipratropium) 3 ml QIDRT HHN 10/21/19 07:00 10/26/19 06:59 10/21/19 07:22 Aspirin (ASA) 81 mg DAILY GT 10/19/19 09:00 11/14/19 08:59 10/19/19 10:04 Atropine Sulfate (Atropine Opth Jami) 1 drop Q8HR SL 10/18/19 22:00 11/16/19 09:59 10/21/19 05:31 Clonidine HCl (Catapres Tab) 0.1 mg Q6H PRN GT SBP>160 10/18/19 21:08 11/17/19 21:07 Gabapentin (Neurontin) 100 mg BID@0900,2100 GT 10/18/19 22:00 11/17/19 21:59 10/20/19 21:32 Glycopyrrolate (Robinul) 0.2 mg Q8HR IV 10/18/19 22:00 11/16/19 13:59 10/21/19 05:32 Heparin Sodium (Porcine) (Heparin 5000 units/ml) 5,000 units EVERY 12 HOURS SUBQ 10/18/19 22:00 11/17/19 21:59 10/20/19 21:33 Lactulose (Cephulac) 20 gm DAILYPRN PRN GT Constipation 10/18/19 21:09 11/17/19 21:08 Lansoprazole (Prevacid) 30 mg DAILY GT 10/19/19 09:00 11/14/19 08:59 10/19/19 09:51 Levetiracetam (Keppra) 1,000 mg BID@0900,2100 GT 10/18/19 22:00 11/17/19 21:59 10/20/19 21:31 Levofloxacin (Levaquin) 250 mg DAILY GT 10/19/19 09:00 10/26/19 08:59 10/19/19 09:54 Levothyroxine Sodium (Synthroid) 75 mcg DAILY@0630 GT 10/19/19 06:30 11/15/19 06:29 10/21/19 05:32 Magnesium Hydroxide (Mom) 30 ml DAILYPRN PRN GT Constipation 10/18/19 21:10 11/17/19 21:09 Metoclopramide HCl (Reglan) 2.5 mg Q8HR IVP 10/18/19 22:00 11/17/19 21:59 10/21/19 05:32 Piperacillin Sod/ Tazobactam Sod 3.375 gm/Sodium Chloride 110 ml @ 27.5 mls/hr EVERY 8 HOURS IVPB 10/20/19 22:00 10/25/19 21:59 10/21/19 05:31 Polyethylene Glycol (Miralax) 17 gm BEDTIME GT 10/18/19 22:00 11/17/19 21:59 10/19/19 21:24 Torey Douglass MD Oct 21, 2019 09:00
[2019-10-21] MEDS: levETIRAcetam 500mg/5ml Liquid GT SCH ×2 (09:30→21:15)
[2019-10-21] MEDS: Aspirin Baby 81mg GT SCH (09:31)
[2019-10-21] MEDS: Heparin 5000 units/ml inj SUBQ SCH ×2 (09:33→21:16)
--- NOTE | 2019-10-21 10:20 | Infectious Diseases Prog Note ---
Assessment/Plan Assessment/Plan antibiotics : zosyn, levoquin A 1. pseudomonas UTI 2. renal failure improving 3. hypertension 4. CHF 5. aspiration pneumonia P 1. continue po levoquin 3 more days 2. continue zosyn 3. sputum culture 4. will follow up cultures Subjective ROS Limited/Unobtainable: Yes Allergies: Coded Allergies: No Known Allergies (Verified , 12/31/09) Objective Vital Signs Last 24 Hour Vital Signs Date Time Temp Pulse Resp B/P (MAP) Pulse Ox O2 Delivery O2 Flow Rate FiO2 10/21/19 07:30 69 18 100 Nasal Cannula 2.0 28 71 19 98 10/21/19 07:20 98 Nasal Cannula 2.0 28 10/21/19 07:20 71 19 98 Nasal Cannula 2.0 28 10/21/19 04:00 98.9 72 18 132/89 (103) 97 10/21/19 00:00 99.5 76 20 153/54 (87) 98 10/20/19 22:35 Nasal Cannula 2.0 10/20/19 20:00 99.7 78 24 138/61 (86) 97 10/20/19 19:58 99 Nasal Cannula 2.0 28 10/20/19 16:00 98.0 72 18 127/79 (95) 99 10/20/19 12:00 98.1 79 18 126/75 (92) 92 Height (Feet): 5 Height (Inches): 5.00 Weight (Pounds): 144 Respiratory/Chest: rhonchi - bilaterally - decreased Cardiovascular: normal rate, regular rhythm, no gallop/murmur Abdomen: soft, non tender, other - GT Extremities: other - + edema Current Medications Medications (Trade) Dose Ordered Sig/Aaron Route PRN Reason Start Time Stop Time Status Last Admin Dose Admin Albuterol/ Ipratropium (Albuterol/ Ipratropium) 3 ml QIDRT HHN 10/21/19 07:00 10/26/19 06:59 10/21/19 07:22 Aspirin (ASA) 81 mg DAILY GT 10/19/19 09:00 11/14/19 08:59 10/21/19 09:31 Atropine Sulfate (Atropine Opth Jami) 1 drop Q8HR SL 10/18/19 22:00 11/16/19 09:59 10/21/19 05:31 Clonidine HCl (Catapres Tab) 0.1 mg Q6H PRN GT SBP>160 10/18/19 21:08 11/17/19 21:07 Gabapentin (Neurontin) 100 mg BID@0900,2100 GT 10/18/19 22:00 11/17/19 21:59 10/21/19 09:31 Glycopyrrolate (Robinul) 0.2 mg Q8HR IV 10/18/19 22:00 11/16/19 13:59 10/21/19 05:32 Heparin Sodium (Porcine) (Heparin 5000 units/ml) 5,000 units EVERY 12 HOURS SUBQ 10/18/19 22:00 11/17/19 21:59 10/21/19 09:33 Lactulose (Cephulac) 20 gm DAILYPRN PRN GT Constipation 10/18/19 21:09 11/17/19 21:08 Lansoprazole (Prevacid) 30 mg DAILY GT 10/19/19 09:00 11/14/19 08:59 10/21/19 09:31 Levetiracetam (Keppra) 1,000 mg BID@0900,2100 GT 10/18/19 22:00 11/17/19 21:59 10/21/19 09:30 Levofloxacin (Levaquin) 250 mg DAILY GT 10/19/19 09:00 10/26/19 08:59 10/21/19 09:30 Levothyroxine Sodium (Synthroid) 75 mcg DAILY@0630 GT 10/19/19 06:30 11/15/19 06:29 10/21/19 05:32 Magnesium Hydroxide (Mom) 30 ml DAILYPRN PRN GT Constipation 10/18/19 21:10 11/17/19 21:09 Metoclopramide HCl (Reglan) 2.5 mg Q8HR IVP 10/18/19 22:00 11/17/19 21:59 10/21/19 05:32 Piperacillin Sod/ Tazobactam Sod 3.375 gm/Sodium Chloride 110 ml @ 27.5 mls/hr EVERY 8 HOURS IVPB 10/20/19 22:00 10/25/19 21:59 10/21/19 05:31 Polyethylene Glycol (Miralax) 17 gm BEDTIME GT 10/18/19 22:00 11/17/19 21:59 10/19/19 21:24 Tyrel Prieto MD Oct 21, 2019 10:20
[2019-10-21 11:12] LABS: BASOPHILS % (AUTO) 0.4 % (0.0-2.0); EOSINOPHILS % (AUTO) 2.3 % (0.0-3.0); HEMATOCRIT 31.6 % (37.0-47.0); LYMPHOCYTES % (AUTO) 16.9 % (20.0-45.0); MEAN CORPUSCULAR VOLUME 89 FL (80-99); MONOCYTES % (AUTO) 4.7 % (1.0-10.0); NEUTROPHILS % (AUTO) 75.8 % (45.0-75.0); PLATELET COUNT 205 K/UL (150-450); RED BLOOD COUNT 3.54 M/UL (4.20-5.40); RED CELL DISTRIBUTION WIDTH 15.2 % (11.6-14.8); WHITE BLOOD COUNT 10.1 K/UL (4.8-10.8)
--- NOTE | 2019-10-21 11:52 | NUR ---
RD ASSESSMENT & RECOMMENDATIONS SEE CARE ACTIVITY FOR COMPLETE ASSESSMENT DAILY ESTIMATED NEEDS: Needs based on DM, wound, CHF, bedbound 57.4kg abw 23-30 kcals/kg 2584-5869 total kcals 1.25-1.5 g protein/kg 72-86 g total protein 20-25 mL/kg 7148-5883 total fluid mLs NUTRITION DIAGNOSIS: 1) Altered nutrition related lab values r/t DM, CKD, cardiac hx as evidenced by pt w/ elev BUN (90 ->19), Cr (2.2 ->1.5), elev BG (335, 447), elev BNP (4825) 2) Swallowing difficulty r/t dysphagia as evidenced by pt is GT dep,now s/p GT-> Jt conversion. CURRENT TF:Glucerna 1.2 @55 x22 ENTERAL NUTRITION RECOMMENDATIONS: Glucerna 1.2 @ 60ml/hr x 22 hrs to provide 1320ml, 1584 kcal, 79g pro, 1063ml free H2O * As able advance by 5ml to goal rate of 60ml/hr x22 hrsto better meet est nutritional needs * Hold 1 hr before and after Synthroid med * HOB over 30 degrees/ water flush per MD Monitor lytes closely, need to change TF to Nepro ADDITIONAL RECOMMENDATIONS: 1) Monitor lytes closely, need for TF change (Pt on Nepro [employer] THER[employer]IST, possible h/o electrolyte imbalance) 2) Wound care- Maik 1pkt BID via PEG once pt tolerates TF 3) Calibrate bed scale for accurate wt ( Per SNF, ST=805.8lbs) 4) Add NISS: BG elev, monitor need for long acting insulin
[2019-10-21 11:53] LABS: ANION GAP 7 mmol/L (5-15); BLOOD UREA NITROGEN 20 mg/dL (7-18); CALCIUM 9.6 MG/DL (8.5-10.1); CARBON DIOXIDE 34 MMOL/L (21-32); CHLORIDE 103 MMOL/L (98-107); CREATININE 1.7 MG/DL (0.55-1.30); SODIUM 143 MMOL/L (136-145)
[2019-10-21 12:00] VITALS: BP 127/69
--- NOTE | 2019-10-21 14:46 | General Progress Note ---
Assessment/Plan Problem List: (1) Diabetes mellitus ICD Codes: E11.9 - Type 2 diabetes mellitus without complications SNOMED: 34943517 (2) Encephalopathy acute ICD Codes: G93.40 - Encephalopathy, unspecified SNOMED: 0667513 (3) Pneumonia ICD Codes: J18.9 - Pneumonia, unspecified organism SNOMED: 038204590 (4) HTN (hypertension) ICD Codes: I10 - Essential (primary) hypertension SNOMED: 27384238 (5) CHF (congestive heart failure) ICD Codes: I50.9 - Heart failure, unspecified SNOMED: 02416943 Qualifiers: Qualified Codes: I50.9 - Heart failure, unspecified (6) ARF (acute renal failure) ICD Codes: N17.9 - Acute kidney failure, unspecified SNOMED: 80844788 Qualifiers: Qualified Codes: N17.9 - Acute kidney failure, unspecified Status: stable Assessment/Plan: resp care suctioning iv abx glycopyrolate and atropine drops reglan j tube feeds monitor for leaking insulin coverage dc planning if tolerating feeds Subjective ROS Limited/Unobtainable: No Constitutional: Reports: malaise, weakness HEENT: Reports: no symptoms Cardiovascular: Reports: chest pain Respiratory: Reports: cough, shortness of breath, sputum Gastrointestinal/Abdominal: Reports: no symptoms, difficulty swallowing Genitourinary: Reports: no symptoms Neurologic/Psychiatric: Reports: pre-existing deficit, seizure Endocrine: Reports: no symptoms Hematologic/Lymphatic: Reports: no symptoms Allergies: Coded Allergies: No Known Allergies (Verified , 12/31/09) All Systems: reviewed and negative except above Subjective less congested. s/p j tube placement. tolerating feeds so far. some leakage noted. Objective Last 24 Hour Vital Signs Date Time Temp Pulse Resp B/P (MAP) Pulse Ox O2 Delivery O2 Flow Rate FiO2 10/21/19 12:00 98.7 81 18 127/69 (88) 98 10/21/19 11:20 76 20 100 Nasal Cannula 2.0 28 74 18 97 10/21/19 09:00 Nasal Cannula 2.0 10/21/19 08:00 97.9 79 20 131/64 (86) 99 10/21/19 07:30 69 18 100 Nasal Cannula 2.0 28 71 19 98 10/21/19 07:20 98 Nasal Cannula 2.0 28 10/21/19 07:20 71 19 98 Nasal Cannula 2.0 28 10/21/19 04:00 98.9 72 18 132/89 (103) 97 10/21/19 00:00 99.5 76 20 153/54 (87) 98 10/20/19 22:35 Nasal Cannula 2.0 10/20/19 20:00 99.7 78 24 138/61 (86) 97 10/20/19 19:58 99 Nasal Cannula 2.0 28 10/20/19 16:00 98.0 72 18 127/79 (95) 99 Intake and Output 10/20/19 10/21/19 19:00 07:00 Intake Total 1880 ml 320 ml Balance 1880 ml 320 ml Free Water 100 ml IV Total 1880 ml Tube Feeding 220 ml Laboratory Tests 10/21/19 10:55: White Blood Count 10.1, Red Blood Count 3.54L, Hemoglobin 10.0L, Hematocrit 31.6L, Mean Corpuscular Volume 89, Mean Corpuscular Hemoglobin 28.3, Mean Corpuscular Hemoglobin Concent 31.7L, Red Cell Distribution Width 15.2H, Platelet Count 205, Mean Platelet Volume 5.9L, Neutrophils (%) (Auto) 75.8H, Lymphocytes (%) (Auto) 16.9L, Monocytes (%) (Auto) 4.7, Eosinophils (%) (Auto) 2.3, Basophils (%) (Auto) 0.4, Sodium Level 143, Potassium Level 4.0, Chloride Level 103, Carbon Dioxide Level 34H, Anion Gap 7, Blood Urea Nitrogen 20H, Creatinine 1.7H, Estimat Glomerular Filtration Rate 35.0, Glucose Level 428#H, Calcium Level 9.6, Magnesium Level 1.8, Pro-B-Type Natriuretic Peptide 9060H Height (Feet): 5 Height (Inches): 5.00 Weight (Pounds): 144 Objective General Appearance: WD/WN, alert, confused Neck: supple Cardiovascular: normal rate Respiratory/Chest: decreased crackles/rales, rhonchi - bilaterally Abdomen: normal bowel sounds, non tender, soft, no organomegaly Edema: no edema noted Arm (L), no edema noted Arm (R), no edema noted Leg (L), no edema noted Leg (R), no edema noted Pedal (L), no edema noted Pedal (R), no edema noted Generalized Neurologic: alert, disoriented, unresponsive, aphasia Jeffrey Crowder MD Oct 21, 2019 14:46
--- NOTE | 2019-10-21 14:58 | Endoscopy Procedure Note ---
Endoscopy Procedure Note General Indication for Procedure: dysphagia Procedures Performed: EGD Operative Findings/Diagnosis: EGD g to J Specimen: none Pt Tolerated Procedure Well: Yes Estimated Blood Loss: none Anesthesia Anesthesiologist: see record Anesthesia: MAC Medications Medication Given: see anesthesia record Inserted Devices Implant(s) used?: No GI Core Measures 50 yrs or older w/o bx or poly: Not Applicable 10yrs. F/U recommended: Not Applicable Darrell Griffith MD Oct 21, 2019 14:58
--- NOTE | 2019-10-21 14:59 | Brief Operative Note ---
Immediate Post Operative Note Operative Note Chief Complaint: dysphagia Pre-op Diagnosis: dysphagia, gastroparesis Procedure: EGD g to J Post-op Diagnosis: same Surgeon: negra Specimen: none Complications: none Condition: stable Fluids: per anesthesia Drains: none Implant(s) used?: No Darrell Griffith MD Oct 21, 2019 14:59
[2019-10-21 16:00] VITALS: BP 134/61
--- NOTE | 2019-10-21 16:32 | NUR ---
CASE MANAGEMENT:REVIEW SI;G-TUBE TO J-TUBE CONVERSION 99.5 81 20 131/64 96% 2L NC FIO2 28% BUN 20 CR 1.7 BG 428 BNP 9060 IS;ZOSYM IV Q8 HRS DUO NEB HHN Q8 HRS LEVAQUIN J-TUBE QD KEPPRA J-TUBE BID MED SURG STATUS DCP;[facility]
[2019-10-21] MEDS: NovoLOG Insulin Flexpen SUBQ SCH ×2 (18:05→22:07)
--- NOTE | 2019-10-21 18:13 | General Progress Note ---
Assessment/Plan Status: stable Assessment/Plan: Assessment - DM - h/o gastroparesis and TF intolerance - s/p G-J conversion - OBS - resp distress - contracted Recommendations - may need to start SSI - abx , pulm toilet - J tube feeds - G tube to gravity Subjective Allergies: Coded Allergies: No Known Allergies (Verified , 12/31/09) Subjective above noted breathing OK d/w RN re feeding orders Objective Last 24 Hour Vital Signs Date Time Temp Pulse Resp B/P (MAP) Pulse Ox O2 Delivery O2 Flow Rate FiO2 10/21/19 15:36 73 18 99 Nasal Cannula 2.0 28 72 16 96 10/21/19 12:00 98.7 81 18 127/69 (88) 98 10/21/19 11:20 76 20 100 Nasal Cannula 2.0 28 74 18 97 10/21/19 09:00 Nasal Cannula 2.0 10/21/19 08:00 97.9 79 20 131/64 (86) 99 10/21/19 07:30 69 18 100 Nasal Cannula 2.0 28 71 19 98 10/21/19 07:20 98 Nasal Cannula 2.0 28 10/21/19 07:20 71 19 98 Nasal Cannula 2.0 28 10/21/19 04:00 98.9 72 18 132/89 (103) 97 10/21/19 00:00 99.5 76 20 153/54 (87) 98 10/20/19 22:35 Nasal Cannula 2.0 10/20/19 20:00 99.7 78 24 138/61 (86) 97 10/20/19 19:58 99 Nasal Cannula 2.0 28 Intake and Output 10/20/19 10/21/19 19:00 07:00 Intake Total 1880 ml 320 ml Balance 1880 ml 320 ml Free Water 100 ml IV Total 1880 ml Tube Feeding 220 ml Laboratory Tests 10/21/19 10:55: White Blood Count 10.1, Red Blood Count 3.54L, Hemoglobin 10.0L, Hematocrit 31.6L, Mean Corpuscular Volume 89, Mean Corpuscular Hemoglobin 28.3, Mean Corpuscular Hemoglobin Concent 31.7L, Red Cell Distribution Width 15.2H, Platelet Count 205, Mean Platelet Volume 5.9L, Neutrophils (%) (Auto) 75.8H, Lymphocytes (%) (Auto) 16.9L, Monocytes (%) (Auto) 4.7, Eosinophils (%) (Auto) 2.3, Basophils (%) (Auto) 0.4, Sodium Level 143, Potassium Level 4.0, Chloride Level 103, Carbon Dioxide Level 34H, Anion Gap 7, Blood Urea Nitrogen 20H, Creatinine 1.7H, Estimat Glomerular Filtration Rate 35.0, Glucose Level 428#H, Calcium Level 9.6, Magnesium Level 1.8, Pro-B-Type Natriuretic Peptide 9060H Height (Feet): 5 Height (Inches): 5.00 Weight (Pounds): 144 Objective confused bedbound, contracted coarse ronchi - improved RR abd soft, (+) 22Fr GT ext contracted and stiff OBS Darrell Griffith MD Oct 21, 2019 18:13
--- NOTE | 2019-10-21 19:13 | NUR ---
HAND-OFF: Report given to FELY Ware (Rita).
--- NOTE | 2019-10-21 19:30 | NUR ---
NURSE NOTES: Received patient in bed, non verbal, oriented x1, confused, total care. IV site is clean dry and intact, no acute distress noted, J tube feeding is tolerated well, 0 residual, call light is within reach, bed is lowered, locked and alarm is on. Will continue to monitor for comfort and safety.
[2019-10-21 20:00] VITALS: BP 150/71
[2019-10-21] MEDS: Miralax 17gm pkt GT SCH (21:00)
[2019-10-22 00:09] VITALS: BP 136/65
--- NOTE | 2019-10-22 03:30 | NUR ---
RAPID RESPONSE: See Rapid Response sheet which remains on paper. Rapid Response was called for the patient due to respiratory distress, and cough, patient appeared uncomfortable, MD was notified, patient was deep suctioned, and breathing treatment was administered. Lasix was administered as ordered. Patient was closely monitored, and per MD orders was transferred to [facility] unit. Family was notified of a transfer.
[2019-10-22 04:00] VITALS: BP 135/78
--- NOTE | 2019-10-22 04:00 | NUR ---
NURSE NOTES: Pt report received from RAMÓN GEIGER MED S. pt is alert and oriented times 1. pt is on venturi able to sat at 99%, no acute signs symptoms of resp distress. pt is on cardiac care nurse showing NSR, no abnormalities noted. pt bed is low, locked, armed, bed rails up times 3, call light within reach. will follow plan of care.
--- NOTE | 2019-10-22 06:10 | Progress Note ---
DATE: 10/21/2019 CARDIOLOGY PROGRESS NOTE OBJECTIVE: VITAL SIGNS: Afebrile, blood pressure 127/69, pulse 81, respirations 18. GENERAL: No distress, tolerating feedings. G to J-tube conversion completed. Feedings tolerated. LUNGS: Clear. CARDIAC: Regular. Normal S1, S2 with a fourth heart sound. ABDOMEN: Soft with no focal tenderness. EXTREMITIES: No edema. IMPRESSION: 1. Dysphagia and gastroparesis, status post G to J-tube conversion. 2. Type 2 diabetes mellitus. 3. Hypertensive heart disease. 4. Chronic diastolic congestive heart failure. PLAN: 1. Medication regimen reviewed and reconciled. 2. Continue current therapy. 3. Discharge planning. 4. She is tolerating feedings without residuals. Kavon Peña M.D. DR: GOVIND JOB#: [id number] CC:
[2019-10-22] MEDS: Metoclopramide 10mg/2ml Inj IVP SCH ×3 (06:55→21:35)
[2019-10-22] MEDS: Glycopyrrolate 0.2mg/ml 1ml Vial IV SCH ×3 (06:56→21:35)
[2019-10-22] MEDS: Piperacillin/Tazobactam 3.375 GM in NS 110 ML IVPB SCH ×3 (07:00→21:59)
[2019-10-22] MEDS: Albuterol/Ipratropium 3ml neb HHN SCH ×4 (07:05→20:15)
[2019-10-22] MEDS: NovoLOG Insulin Flexpen SUBQ SCH ×4 (07:12→21:33)
--- NOTE | 2019-10-22 07:25 | NUR ---
NURSE NOTES: Received bedside report from Ricardo Torrez RN. Pt. in bed, sleeping but response to tactile stimuli. No sign of distress. No grimacing noted. GTF on hold for now per Dr. Crowder order. Bed in low position, locked. Call light within reach. Will cont. to monitor.
--- NOTE | 2019-10-22 07:40 | NUR ---
HAND-OFF: Report given to PHIL ROBERTSON CHARGE. Addendum: 10/22/19 at 0907 by JENNIFER BARROW RN HAND-OFF: Report given to SOPHIA ROBERTSON. PT remains stable.
[2019-10-22 08:00] VITALS: BP 130/76
--- NOTE | 2019-10-22 09:27 | Pulmonology Progress Note ---
Assessment/Plan Assessment/Plan 1. Urinary tract infection. 2. mucous plugging and retained secretions; 3. Renal failure. 4. Hypertension. 5. Congestive heart failure. 6. Seizure History 7. Diabetes 8. Hypernatremia 9. EDGAR 10. acute hypoxemic respiratory failure PLAN repeat ABG repeat imaging continue antibiotics and CPT suction PRN monitor in [facility] BIPAP pending ABG monitor fluid status meds noted oxygen as is respiratory care as is levaquin based on urine culture results close followup for change; prognosis guarded impression, plan, and exam edited and reviewed in detail care discussed with RN Subjective ROS Limited/Unobtainable: Yes Allergies: Coded Allergies: No Known Allergies (Verified , 12/31/09) Subjective care noted events noted and discussed went into respiratory distress needed suctioning now on 100% confirmed DNR Objective Last 24 Hour Vital Signs Date Time Temp Pulse Resp B/P (MAP) Pulse Ox O2 Delivery O2 Flow Rate FiO2 10/22/19 07:05 105 16 100 Venturi Mask 8.0 40 100 16 99 10/22/19 07:04 98 Venturi Mask 8.0 40 10/22/19 04:57 79 10/22/19 04:00 98.2 96 19 135/78 (97) 98 10/22/19 00:09 99.0 91 18 136/65 (88) 97 10/21/19 21:47 Nasal Cannula 2.0 10/21/19 20:00 99.5 89 24 150/71 (97) 98 10/21/19 18:53 99 Nasal Cannula 2.0 28 10/21/19 18:53 89 18 100 Nasal Cannula 2.0 28 87 18 99 10/21/19 16:00 98.9 83 19 134/61 (85) 100 10/21/19 15:36 73 18 99 Nasal Cannula 2.0 28 72 16 96 10/21/19 12:00 98.7 81 18 127/69 (88) 98 10/21/19 11:20 76 20 100 Nasal Cannula 2.0 28 74 18 97 Intake and Output 10/21/19 10/22/19 19:00 07:00 Intake Total 215 ml 165 ml Balance 215 ml 165 ml Free Water 50 ml Tube Feeding 165 ml 165 ml Objective WDWN on nonrebreather mask reduced breath sounds bilaterally with noted rhonchi [id number] without MRG NABS nontender no HSM no CCE nonfocal reduced LOC reviewed and edited Laboratory Tests 10/21/19 10:55: White Blood Count 10.1, Red Blood Count 3.54L, Hemoglobin 10.0L, Hematocrit 31.6L, Mean Corpuscular Volume 89, Mean Corpuscular Hemoglobin 28.3, Mean Corpuscular Hemoglobin Concent 31.7L, Red Cell Distribution Width 15.2H, Platelet Count 205, Mean Platelet Volume 5.9L, Neutrophils (%) (Auto) 75.8H, Lymphocytes (%) (Auto) 16.9L, Monocytes (%) (Auto) 4.7, Eosinophils (%) (Auto) 2.3, Basophils (%) (Auto) 0.4, Sodium Level 143, Potassium Level 4.0, Chloride Level 103, Carbon Dioxide Level 34H, Anion Gap 7, Blood Urea Nitrogen 20H, Creatinine 1.7H, Estimat Glomerular Filtration Rate 35.0, Glucose Level 428#H, Calcium Level 9.6, Magnesium Level 1.8, Pro-B-Type Natriuretic Peptide 9060H Current Medications Medications (Trade) Dose Ordered Sig/Aaron Route PRN Reason Start Time Stop Time Status Last Admin Dose Admin Albuterol/ Ipratropium (Albuterol/ Ipratropium) 3 ml QIDRT HHN 10/21/19 07:00 10/26/19 06:59 10/22/19 07:05 Aspirin (ASA) 81 mg DAILY GT 10/19/19 09:00 11/14/19 08:59 10/21/19 09:31 Atropine Sulfate (Atropine Opth Jami) 1 drop Q8HR SL 10/18/19 22:00 11/16/19 09:59 10/22/19 06:59 Clonidine HCl (Catapres Tab) 0.1 mg Q6H PRN GT SBP>160 10/18/19 21:08 11/17/19 21:07 Dextrose (Dextrose 50%) 25 ml Q30M PRN IV Hypoglycemia 10/21/19 14:45 11/20/19 14:44 Dextrose (Dextrose 50%) 50 ml Q30M PRN IV Hypoglycemia 10/21/19 14:45 11/20/19 14:44 Furosemide (Lasix) 40 mg DAILY IV 10/22/19 09:00 11/21/19 08:59 Gabapentin (Neurontin) 100 mg BID@0900,2100 GT 10/18/19 22:00 11/17/19 21:59 10/21/19 21:15 Glycopyrrolate (Robinul) 0.2 mg Q8HR IV 10/18/19 22:00 11/16/19 13:59 10/22/19 06:56 Heparin Sodium (Porcine) (Heparin 5000 units/ml) 5,000 units EVERY 12 HOURS SUBQ 10/18/19 22:00 11/17/19 21:59 10/21/19 21:16 Insulin Aspart (NovoLOG) BEFORE MEALS AND HS SUBQ 10/21/19 16:30 11/20/19 16:29 10/22/19 07:12 Lactulose (Cephulac) 20 gm DAILYPRN PRN GT Constipation 10/18/19 21:09 11/17/19 21:08 Lansoprazole (Prevacid) 30 mg DAILY GT 10/19/19 09:00 11/14/19 08:59 10/21/19 09:31 Levetiracetam (Keppra) 1,000 mg BID@0900,2100 GT 10/18/19 22:00 11/17/19 21:59 10/21/19 21:15 Levofloxacin (Levaquin) 250 mg DAILY GT 10/19/19 09:00 10/26/19 08:59 10/21/19 09:30 Levothyroxine Sodium (Synthroid) 75 mcg DAILY@0630 GT 10/19/19 06:30 11/15/19 06:29 10/22/19 06:56 Magnesium Hydroxide (Mom) 30 ml DAILYPRN PRN GT Constipation 10/18/19 21:10 11/17/19 21:09 Metoclopramide HCl (Reglan) 2.5 mg Q8HR IVP 10/18/19 22:00 11/17/19 21:59 10/22/19 06:55 Piperacillin Sod/ Tazobactam Sod 3.375 gm/Sodium Chloride 110 ml @ 27.5 mls/hr EVERY 8 HOURS IVPB 10/20/19 22:00 10/25/19 21:59 10/22/19 07:00 Polyethylene Glycol (Miralax) 17 gm BEDTIME GT 10/18/19 22:00 11/17/19 21:59 10/19/19 21:24 Torey Douglass MD Oct 22, 2019 09:27
[2019-10-22] MEDS: levETIRAcetam 500mg/5ml Liquid GT SCH ×2 (09:52→21:28)
[2019-10-22] MEDS: Aspirin Baby 81mg GT SCH (09:52)
[2019-10-22] MEDS: Heparin 5000 units/ml inj SUBQ SCH ×2 (09:54→21:30)
[2019-10-22 12:00] VITALS: BP 125/60
--- NOTE | 2019-10-22 13:30 | General Progress Note ---
Assessment/Plan Problem List: (1) Diabetes mellitus ICD Codes: E11.9 - Type 2 diabetes mellitus without complications SNOMED: 62925599 (2) Encephalopathy acute ICD Codes: G93.40 - Encephalopathy, unspecified SNOMED: 3340514 (3) Pneumonia ICD Codes: J18.9 - Pneumonia, unspecified organism SNOMED: 614962801 (4) HTN (hypertension) ICD Codes: I10 - Essential (primary) hypertension SNOMED: 17552593 (5) CHF (congestive heart failure) ICD Codes: I50.9 - Heart failure, unspecified SNOMED: 39415557 Qualifiers: Qualified Codes: I50.9 - Heart failure, unspecified (6) ARF (acute renal failure) ICD Codes: N17.9 - Acute kidney failure, unspecified SNOMED: 22336948 Qualifiers: Qualified Codes: N17.9 - Acute kidney failure, unspecified Status: stable Assessment/Plan: resp care/o2 suctioning/resp rx follow up cxr lasix x 1 iv abx glycopyrolate and atropine drops reglan j tube feeds monitor for leaking insulin coverage dc planning if tolerating feeds Subjective ROS Limited/Unobtainable: Yes Constitutional: Reports: malaise, weakness HEENT: Reports: no symptoms Cardiovascular: Reports: edema Respiratory: Reports: shortness of breath, sputum Gastrointestinal/Abdominal: Reports: difficulty swallowing Genitourinary: Reports: no symptoms Neurologic/Psychiatric: Reports: pre-existing deficit, seizure Endocrine: Reports: no symptoms Hematologic/Lymphatic: Reports: anemia Allergies: Coded Allergies: No Known Allergies (Verified , 12/31/09) All Systems: reviewed and negative except above Subjective acutely more congested last night. no fevers. pink frothy sputum. transferred to sdu. feeds held. Objective Last 24 Hour Vital Signs Date Time Temp Pulse Resp B/P (MAP) Pulse Ox O2 Delivery O2 Flow Rate FiO2 10/22/19 12:00 98.7 94 24 125/60 (81) 100 10/22/19 09:20 92 35 97 40 10/22/19 09:00 Nasal Cannula 2.0 10/22/19 08:00 98.9 104 23 130/76 (94) 97 10/22/19 07:53 100 10/22/19 07:05 105 16 100 Venturi Mask 8.0 40 100 16 99 10/22/19 07:04 98 Venturi Mask 8.0 40 10/22/19 04:57 79 10/22/19 04:00 98.2 96 19 135/78 (97) 98 10/22/19 00:09 99.0 91 18 136/65 (88) 97 10/21/19 21:47 Nasal Cannula 2.0 10/21/19 20:00 99.5 89 24 150/71 (97) 98 10/21/19 18:53 99 Nasal Cannula 2.0 28 10/21/19 18:53 89 18 100 Nasal Cannula 2.0 28 87 18 99 10/21/19 16:00 98.9 83 19 134/61 (85) 100 10/21/19 15:36 73 18 99 Nasal Cannula 2.0 28 72 16 96 Intake and Output 10/21/19 10/22/19 19:00 07:00 Intake Total 215 ml 165 ml Balance 215 ml 165 ml Free Water 50 ml Tube Feeding 165 ml 165 ml Laboratory Tests 10/22/19 12:32: Arterial Blood pH 7.514H, Arterial Blood Partial Pressure CO2 38.6, Arterial Blood Partial Pressure O2 119.0H, Arterial Blood HCO3 30.4H, Arterial Blood Oxygen Saturation 98.3, Arterial Blood Base Excess 7H, Danilo Test Positive Height (Feet): 5 Height (Inches): 5.00 Weight (Pounds): 144 Objective General Appearance: WD/WN, alert, confused Neck: supple Cardiovascular: normal rate Respiratory/Chest: decreased crackles/rales, rhonchi - bilaterally Abdomen: normal bowel sounds, non tender, soft, no organomegaly Edema: no edema noted Arm (L), no edema noted Arm (R), no edema noted Leg (L), no edema noted Leg (R), no edema noted Pedal (L), no edema noted Pedal (R), no edema noted Generalized Neurologic: alert, disoriented, unresponsive, aphasia Jeffrey Crowder MD Oct 22, 2019 13:30
--- NOTE | 2019-10-22 14:54 | General Progress Note ---
Assessment/Plan Status: stable Assessment/Plan: Assessment - DM - h/o gastroparesis and TF intolerance - s/p G-J conversion - OBS - resp distress - contracted Recommendations - may need to start SSI - abx , pulm toilet - Feeds on hold - G tube to LIS Subjective Allergies: Coded Allergies: No Known Allergies (Verified , 12/31/09) Subjective above noted on BIPAP transferred to [facility] d/w RN Objective Last 24 Hour Vital Signs Date Time Temp Pulse Resp B/P (MAP) Pulse Ox O2 Delivery O2 Flow Rate FiO2 10/22/19 12:00 98.7 94 24 125/60 (81) 100 10/22/19 11:45 91 10/22/19 09:20 92 35 97 40 10/22/19 09:00 Nasal Cannula 2.0 10/22/19 08:00 98.9 104 23 130/76 (94) 97 10/22/19 07:53 100 10/22/19 07:05 105 16 100 Venturi Mask 8.0 40 100 16 99 10/22/19 07:04 98 Venturi Mask 8.0 40 10/22/19 04:57 79 10/22/19 04:00 98.2 96 19 135/78 (97) 98 10/22/19 00:09 99.0 91 18 136/65 (88) 97 10/21/19 21:47 Nasal Cannula 2.0 10/21/19 20:00 99.5 89 24 150/71 (97) 98 10/21/19 18:53 99 Nasal Cannula 2.0 28 10/21/19 18:53 89 18 100 Nasal Cannula 2.0 28 87 18 99 10/21/19 16:00 98.9 83 19 134/61 (85) 100 10/21/19 15:36 73 18 99 Nasal Cannula 2.0 28 72 16 96 Intake and Output 10/21/19 10/22/19 19:00 07:00 Intake Total 215 ml 165 ml Balance 215 ml 165 ml Free Water 50 ml Tube Feeding 165 ml 165 ml Laboratory Tests 10/22/19 12:32: Arterial Blood pH 7.514H, Arterial Blood Partial Pressure CO2 38.6, Arterial Blood Partial Pressure O2 119.0H, Arterial Blood HCO3 30.4H, Arterial Blood Oxygen Saturation 98.3, Arterial Blood Base Excess 7H, Danilo Test Positive Height (Feet): 5 Height (Inches): 5.00 Weight (Pounds): 144 Objective confused bedbound, contracted coarse BS RR abd soft, (+) GJ tube ext contracted and stiff OBS Darrell Griffith MD Oct 22, 2019 14:54
--- NOTE | 2019-10-22 15:05 | Diagnostic Imaging Report ---
EXAM: XR Chest, 1 View CLINICAL HISTORY: SOB TECHNIQUE: Frontal view of the chest. COMPARISON: 10/15/19 FINDINGS: Lungs: Mild diffuse interstitial opacity throughout both lungs. Pleural space: Cannot rule out small bilateral pleural effusions. No pneumothorax. Heart: Suspect mild cardiomegaly. Mediastinum: Unremarkable. Bones/joints: Suspect anterior dislocation of right humerus shoulder, similar to on the prior study. Osteopenia. Moderate degenerative changes. Vasculature: Calcified aorta. IMPRESSION: 1. Persistent mild pulmonary edema 2. Suspect anterior dislocation of right humerus shoulder, similar to on the prior study.
[2019-10-22 16:00] VITALS: BP 102/43
--- NOTE | 2019-10-22 19:27 | NUR ---
HAND-OFF: Report given to Sriram RN. Pt. remain stable.
--- NOTE | 2019-10-22 19:28 | NUR ---
NURSE NOTES: Received report from Aleida GEIGER. Pt is AO x0 on Bipap. Call light is within reach and rails are up x3. Got endorsed from AM shift that tube feeding got stopped per MD order and connected to LIS. Suction is on. Got endorsed that JT/GT is not functioning properly. Will continue the plan of care.
[2019-10-22 20:00] VITALS: BP 126/86
[2019-10-22] MEDS: Miralax 17gm pkt GT SCH (21:28)
--- NOTE | 2019-10-22 22:30 | Progress Note ---
DATE: 10/22/2019 CARDIOLOGY PROGRESS NOTE SUBJECTIVE: The patient's condition deteriorated early this morning. She developed acute respiratory distress and congestion. She was given bronchodilator therapy and intravenous furosemide transferred to a cardiac monitored unit. Her ABG was obtained and notable for pH 7.51, pCO2 39, and pO2 119. PHYSICAL EXAMINATION: LUNGS: Bilateral breath sounds, rhonchi, and rales. CARDIAC: Regular rhythm and rate. Normal S1 and S2 with a fourth heart sound. ABDOMEN: Soft. EXTREMITIES: Trace edema. IMPRESSION: 1. Aspiration. 2. Acute respiratory insufficiency. 3. Acute on chronic diastolic congestive heart failure. 4. Healthcare-associated pneumonia. PLAN: 1. Antimicrobials. 2. Bronchodilators. 3. Respiratory hygiene. 4. Diuresis. 5. Continue DVT prophylaxis. 6. Cardiac monitoring. 7. Follow up chest radiograph and laboratory studies. 8. Trend natriuretic peptide assay. Kavon Peña M.D. DR: KEN JOB#: [id number] CC:
[2019-10-23] VITALS: BP 111/56
[2019-10-23 04:00] VITALS: BP 130/61
[2019-10-23 04:47] LABS: HEMATOCRIT 30.3 % (37.0-47.0); HEMOGLOBIN 9.8 G/DL (12.0-16.0); MEAN CORPUSCULAR VOLUME 88 FL (80-99); PLATELET COUNT 190 K/UL (150-450); RED BLOOD COUNT 3.45 M/UL (4.20-5.40); RED CELL DISTRIBUTION WIDTH 15.1 % (11.6-14.8)
[2019-10-23 04:53] LABS: WHITE BLOOD COUNT 29.8 K/UL (4.8-10.8)
[2019-10-23 05:28] LABS: ALANINE AMINOTRANSFERASE 10 U/L (12-78); ALBUMIN 2.4 G/DL (3.4-5.0); ALBUMIN/GLOBULIN RATIO 0.5 (1.0-2.7); ALKALINE PHOSPHATASE 89 U/L (46-116); ANION GAP 11 mmol/L (5-15); ASPARTATE AMINO TRANSFERASE 14 U/L (15-37); BILIRUBIN,TOTAL 0.8 MG/DL (0.2-1.0); BLOOD UREA NITROGEN 31 mg/dL (7-18); CALCIUM 9.6 MG/DL (8.5-10.1); CARBON DIOXIDE 32 MMOL/L (21-32); CHLORIDE 106 MMOL/L (98-107); CREATININE 2.3 MG/DL (0.55-1.30); POTASSIUM 3.3 MMOL/L (3.5-5.1); SODIUM 149 MMOL/L (136-145)
--- NOTE | 2019-10-23 05:30 | NUR ---
NURSE NOTES: Notified MD Crowder about WBC results. Will wait for further orders.
[2019-10-23] MEDS: Metoclopramide 10mg/2ml Inj IVP SCH ×3 (05:33→21:24)
[2019-10-23] MEDS: Glycopyrrolate 0.2mg/ml 1ml Vial IV SCH ×3 (05:33→21:24)
[2019-10-23] MEDS: NovoLOG Insulin Flexpen SUBQ SCH ×3 (05:36→18:09)
[2019-10-23] MEDS: Piperacillin/Tazobactam 3.375 GM in NS 110 ML IVPB SCH ×3 (05:47→21:23)
--- NOTE | 2019-10-23 07:07 | NUR ---
HAND-OFF: Report given to Aleida GEIGER.
--- NOTE | 2019-10-23 07:20 | NUR ---
NURSE NOTES: Received bedside report from Sriram GEIGER. Pt. in bed, sleeping but response to tactile stimuli. No sign of distress. On Bipap at present 12/5 Fi O2 40%. No grimacing noted. GTF cont on hold. Bed in low position, locked. Call light within reach. Will cont. to monitor.
--- NOTE | 2019-10-23 07:40 | NUR ---
NURSE NOTES: Pt. seen by Dr. Crowder and informed him regarding WBC 29.8 and K+ 3.3 and told RN he will put in order.
[2019-10-23] MEDS: Albuterol/Ipratropium 3ml neb HHN SCH ×4 (07:42→19:14)
--- NOTE | 2019-10-23 07:50 | NUR ---
RESPIRATORY NOTE: Pt placed on venturi mask at 8L 40%. Tolerating well. No SOB. No respiratory distress noted. Spo2 99%, HR 88 RR 20. Will continue to monitor. RN aware.
--- NOTE | 2019-10-23 07:54 | General Progress Note ---
Assessment/Plan Problem List: (1) Diabetes mellitus ICD Codes: E11.9 - Type 2 diabetes mellitus without complications SNOMED: 96123470 (2) Encephalopathy acute ICD Codes: G93.40 - Encephalopathy, unspecified SNOMED: 1603164 (3) Pneumonia ICD Codes: J18.9 - Pneumonia, unspecified organism SNOMED: 290356516 (4) HTN (hypertension) ICD Codes: I10 - Essential (primary) hypertension SNOMED: 41520076 (5) CHF (congestive heart failure) ICD Codes: I50.9 - Heart failure, unspecified SNOMED: 26896519 Qualifiers: Qualified Codes: I50.9 - Heart failure, unspecified (6) ARF (acute renal failure) ICD Codes: N17.9 - Acute kidney failure, unspecified SNOMED: 52917407 Qualifiers: Qualified Codes: N17.9 - Acute kidney failure, unspecified Status: stable Assessment/Plan: resp care/o2 suctioning try off bipap monitor cxr iv abx reglan j tube to LIS monitor wbc insulin coverage Subjective ROS Limited/Unobtainable: No Constitutional: Reports: malaise, weakness HEENT: Reports: no symptoms Cardiovascular: Reports: no symptoms Respiratory: Reports: cough, shortness of breath, sputum Gastrointestinal/Abdominal: Reports: difficulty swallowing Genitourinary: Reports: no symptoms Neurologic/Psychiatric: Reports: pre-existing deficit, seizure Endocrine: Reports: no symptoms Hematologic/Lymphatic: Reports: no symptoms Allergies: Coded Allergies: No Known Allergies (Verified , 12/31/09) All Systems: reviewed and negative except above Subjective on bipap. alert. less congested. 600cc output from j tube(to LIS) wbc up to 29K Cr trending up Objective Last 24 Hour Vital Signs Date Time Temp Pulse Resp B/P (MAP) Pulse Ox O2 Delivery O2 Flow Rate FiO2 10/23/19 07:46 80 26 100 Bi-Pap 40 82 30 100 10/23/19 07:44 100 Bi-Pap 40 10/23/19 07:44 82 21 100 40 10/23/19 05:00 85 21 98 40 10/23/19 04:00 84 10/23/19 04:00 97.6 84 16 130/61 (84) 98 10/23/19 02:48 82 19 97 40 10/23/19 00:45 77 26 97 40 10/23/19 00:00 97.8 94 14 111/56 (74) 96 10/23/19 00:00 90 10/23/19 00:00 Bi-pap 10/22/19 22:50 82 28 96 40 10/22/19 21:00 Bi-pap 10/22/19 20:41 87 28 98 40 10/22/19 20:17 80 28 99 Bi-Pap 40 78 30 97 10/22/19 20:16 78 30 97 Bi-Pap 40 78 30 96 40 10/22/19 20:15 97 Bi-Pap 40 10/22/19 20:00 97.5 88 20 126/86 (99) 100 10/22/19 20:00 95 10/22/19 18:03 86 22 97 Bi-Pap 40 94 28 99 40 10/22/19 17:00 85 22 97 Bi-Pap 30 94 28 99 40 10/22/19 16:00 97.7 92 23 102/43 (62) 97 10/22/19 15:32 107 10/22/19 14:59 86 22 97 Bi-Pap 40 94 28 99 40 10/22/19 12:47 95 28 98 Bi-Pap 40 94 28 99 40 10/22/19 12:00 98.7 94 24 125/60 (81) 100 10/22/19 11:45 91 10/22/19 09:20 92 35 97 40 10/22/19 09:00 Nasal Cannula 2.0 10/22/19 08:00 98.9 104 23 130/76 (94) 97 10/22/19 07:53 100 Intake and Output 10/22/19 10/23/19 19:00 07:00 Output Total 850 ml 550 ml Balance -850 ml -550 ml Output Urine Total 850 ml 250 ml Other 300 ml Laboratory Tests 10/22/19 12:32: Arterial Blood pH 7.514H, Arterial Blood Partial Pressure CO2 38.6, Arterial Blood Partial Pressure O2 119.0H, Arterial Blood HCO3 30.4H, Arterial Blood Oxygen Saturation 98.3, Arterial Blood Base Excess 7H, Danilo Test Positive 10/23/19 03:53: White Blood Count 29.8*H, Red Blood Count 3.45L, Hemoglobin 9.8L, Hematocrit 30.3L, Mean Corpuscular Volume 88, Mean Corpuscular Hemoglobin 28.4, Mean Corpuscular Hemoglobin Concent 32.4, Red Cell Distribution Width 15.1H, Platelet Count 190, Mean Platelet Volume 5.9L, Neutrophils (%) (Auto) , Lymphocytes (%) (Auto) , Monocytes (%) (Auto) , Eosinophils (%) (Auto) , Basophils (%) (Auto) , Neutrophils % (Manual) [Pending], Lymphocytes % (Manual) [Pending], Platelet Estimate [Pending], Platelet Morphology [Pending], Sodium Level 149H, Potassium Level 3.3L, Chloride Level 106, Carbon Dioxide Level 32, Anion Gap 11, Blood Urea Nitrogen 31H, Creatinine 2.3H, Estimat Glomerular Filtration Rate 24.7, Glucose Level 257H, Calcium Level 9.6, Magnesium Level 1.9 , Total Bilirubin 0.8, Aspartate Amino Transf (AST/SGOT) 14L, Alanine Aminotransferase (ALT/SGPT) 10L, Alkaline Phosphatase 89, Pro-B-Type Natriuretic Peptide 4594H, Total Protein 7.4, Albumin 2.4L, Globulin 5.0, Albumin/Globulin Ratio 0.5L Height (Feet): 5 Height (Inches): 5.00 Weight (Pounds): 144 Objective General Appearance: WD/WN, alert, confused. on bipap Neck: supple Cardiovascular: normal rate Respiratory/Chest: decreased crackles/rales, rhonchi - bilaterally(less) Abdomen: normal bowel sounds, non tender, soft, no organomegaly Edema: no edema noted Arm (L), no edema noted Arm (R), no edema noted Leg (L), no edema noted Leg (R), no edema noted Pedal (L), no edema noted Pedal (R), no edema noted Generalized Neurologic: alert, disoriented, unresponsive, aphasia Jeffrey Crowder MD Oct 23, 2019 07:54
[2019-10-23 08:00] VITALS: BP 114/51
[2019-10-23] MEDS ORDERED: Sodium Chloride for KCL Premix x 2hrs IV SCH (08:30)
[2019-10-23] MEDS: levETIRAcetam 500mg/5ml Liquid GT SCH ×2 (08:53→20:53)
[2019-10-23] MEDS: Aspirin Baby 81mg GT SCH (08:53)
[2019-10-23] MEDS: Heparin 5000 units/ml inj SUBQ SCH ×2 (08:55→20:55)
[2019-10-23] MEDS ORDERED: NS 500ML ONE (10:25)
--- NOTE | 2019-10-23 10:58 | Pulmonology Progress Note ---
Assessment/Plan Assessment/Plan 1. Urinary tract infection. 2. mucous plugging and retained secretions; 3. Renal failure. 4. Hypertension. 5. Congestive heart failure. 6. Seizure History 7. Diabetes 8. Hypernatremia 9. EDGAR 10. acute hypoxemic respiratory failure PLAN repeat ABG for change repeat imaging and monitor continue antibiotics and CPT suction PRN monitor in SHAY BIPAP pending ABG monitor fluid status meds noted oxygen as is respiratory care as is on Lasix levaquin based on urine culture results close followup for change; prognosis guarded impression, plan, and exam edited and reviewed in detail care discussed with RN Subjective ROS Limited/Unobtainable: Yes Allergies: Coded Allergies: No Known Allergies (Verified , 12/31/09) Subjective care noted events noted and discussed went into respiratory distress needed suctioning now on 100% confirmed DNR Objective Last 24 Hour Vital Signs Date Time Temp Pulse Resp B/P (MAP) Pulse Ox O2 Delivery O2 Flow Rate FiO2 10/23/19 10:41 80 24 100 Venturi Mask 8.0 40 82 24 100 10/23/19 08:00 99.4 82 17 114/51 (72) 98 10/23/19 07:46 80 26 100 Bi-Pap 40 82 30 100 10/23/19 07:44 100 Bi-Pap 40 10/23/19 07:44 82 21 100 40 10/23/19 05:00 85 21 98 40 10/23/19 04:00 84 10/23/19 04:00 97.6 84 16 130/61 (84) 98 10/23/19 02:48 82 19 97 40 10/23/19 00:45 77 26 97 40 10/23/19 00:00 97.8 94 14 111/56 (74) 96 10/23/19 00:00 90 10/23/19 00:00 Bi-pap 10/22/19 22:50 82 28 96 40 10/22/19 21:00 Bi-pap 10/22/19 20:41 87 28 98 40 10/22/19 20:17 80 28 99 Bi-Pap 40 78 30 97 10/22/19 20:16 78 30 97 Bi-Pap 40 78 30 96 40 10/22/19 20:15 97 Bi-Pap 40 10/22/19 20:00 97.5 88 20 126/86 (99) 100 10/22/19 20:00 95 10/22/19 18:03 86 22 97 Bi-Pap 40 94 28 99 40 10/22/19 17:00 85 22 97 Bi-Pap 30 94 28 99 40 10/22/19 16:00 97.7 92 23 102/43 (62) 97 10/22/19 15:32 107 10/22/19 14:59 86 22 97 Bi-Pap 40 94 28 99 40 10/22/19 12:47 95 28 98 Bi-Pap 40 94 28 99 40 10/22/19 12:00 98.7 94 24 125/60 (81) 100 10/22/19 11:45 91 Intake and Output 10/22/19 10/23/19 19:00 07:00 Output Total 850 ml 550 ml Balance -850 ml -550 ml Output Urine Total 850 ml 250 ml Other 300 ml Objective WDWN on nonrebreather mask reduced breath sounds bilaterally with noted rhonchi [id number] without MRG NABS nontender no HSM no CCE nonfocal reduced LOC reviewed and edited Laboratory Tests 10/22/19 12:32: Arterial Blood pH 7.514H, Arterial Blood Partial Pressure CO2 38.6, Arterial Blood Partial Pressure O2 119.0H, Arterial Blood HCO3 30.4H, Arterial Blood Oxygen Saturation 98.3, Arterial Blood Base Excess 7H, Danilo Test Positive 10/23/19 03:53: White Blood Count 29.8*H, Red Blood Count 3.45L, Hemoglobin 9.8L, Hematocrit 30.3L, Mean Corpuscular Volume 88, Mean Corpuscular Hemoglobin 28.4, Mean Corpuscular Hemoglobin Concent 32.4, Red Cell Distribution Width 15.1H, Platelet Count 190, Mean Platelet Volume 5.9L, Neutrophils (%) (Auto) , Lymphocytes (%) (Auto) , Monocytes (%) (Auto) , Eosinophils (%) (Auto) , Basophils (%) (Auto) , Differential Total Cells Counted 100, Neutrophils % ( Manual) 87H, Lymphocytes % (Manual) 11L, Monocytes % (Manual) 2, Eosinophils % ( Manual) 0, Basophils % (Manual) 0, Band Neutrophils 0, Platelet Estimate Adequate, Platelet Morphology Normal, Hypochromasia 2+, Anisocytosis 1+, Sodium Level 149H, Potassium Level 3.3L, Chloride Level 106, Carbon Dioxide Level 32, Anion Gap 11, Blood Urea Nitrogen 31H, Creatinine 2.3H, Estimat Glomerular Filtration Rate 24.7, Glucose Level 257H, Calcium Level 9.6, Magnesium Level 1.9 , Total Bilirubin 0.8, Aspartate Amino Transf (AST/SGOT) 14L, Alanine Aminotransferase (ALT/SGPT) 10L, Alkaline Phosphatase 89, Pro-B-Type Natriuretic Peptide 4594H, Total Protein 7.4, Albumin 2.4L, Globulin 5.0, Albumin/Globulin Ratio 0.5L Current Medications Medications (Trade) Dose Ordered Sig/Aaron Route PRN Reason Start Time Stop Time Status Last Admin Dose Admin Albuterol/ Ipratropium (Albuterol/ Ipratropium) 3 ml QIDRT HHN 10/21/19 07:00 10/26/19 06:59 10/23/19 10:39 Aspirin (ASA) 81 mg DAILY GT 10/19/19 09:00 11/14/19 08:59 10/23/19 08:53 Atropine Sulfate (Atropine Opth Jami) 1 drop Q8HR SL 10/18/19 22:00 11/16/19 09:59 10/23/19 05:33 Clonidine HCl (Catapres Tab) 0.1 mg Q6H PRN GT SBP>160 10/18/19 21:08 11/17/19 21:07 Dextrose (Dextrose 50%) 25 ml Q30M PRN IV Hypoglycemia 10/21/19 14:45 11/20/19 14:44 Dextrose (Dextrose 50%) 50 ml Q30M PRN IV Hypoglycemia 10/21/19 14:45 11/20/19 14:44 Gabapentin (Neurontin) 100 mg BID@0900,2100 GT 10/18/19 22:00 11/17/19 21:59 10/23/19 08:53 Glycopyrrolate (Robinul) 0.2 mg Q8HR IV 10/18/19 22:00 11/16/19 13:59 10/23/19 05:33 Heparin Sodium (Porcine) (Heparin 5000 units/ml) 5,000 units EVERY 12 HOURS SUBQ 10/18/19 22:00 11/17/19 21:59 10/23/19 08:55 Insulin Aspart (NovoLOG) BEFORE MEALS AND HS SUBQ 10/21/19 16:30 11/20/19 16:29 10/23/19 05:36 Lactulose (Cephulac) 20 gm DAILYPRN PRN GT Constipation 10/18/19 21:09 11/17/19 21:08 Lansoprazole (Prevacid) 30 mg DAILY GT 10/19/19 09:00 11/14/19 08:59 10/23/19 08:53 Levetiracetam (Keppra) 1,000 mg BID@0900,2100 GT 10/18/19 22:00 11/17/19 21:59 10/23/19 08:53 Levofloxacin (Levaquin) 250 mg DAILY GT 10/19/19 09:00 10/26/19 08:59 10/23/19 08:53 Levothyroxine Sodium (Synthroid) 75 mcg DAILY@0630 GT 10/19/19 06:30 11/15/19 06:29 10/22/19 06:56 Magnesium Hydroxide (Mom) 30 ml DAILYPRN PRN GT Constipation 10/18/19 21:10 11/17/19 21:09 Metoclopramide HCl (Reglan) 2.5 mg Q8HR IVP 10/18/19 22:00 11/17/19 21:59 10/23/19 05:33 Piperacillin Sod/ Tazobactam Sod 3.375 gm/Sodium Chloride 110 ml @ 27.5 mls/hr EVERY 8 HOURS IVPB 10/20/19 22:00 10/25/19 21:59 10/23/19 05:47 Polyethylene Glycol (Miralax) 17 gm BEDTIME GT 10/18/19 22:00 11/17/19 21:59 10/22/19 21:28 Torey Douglass MD Oct 23, 2019 10:58
--- NOTE | 2019-10-23 11:00 | General Progress Note ---
Assessment/Plan Status: stable Assessment/Plan: Assessment - DM - h/o gastroparesis and GT TF intolerance - s/p G-J conversion - tolerated J port fees - OBS - resp distress, presumed due to reflux of gastric contents - contracted Recommendations - Restart TF via j port - abx - pulm toilet - G tube to LIS to protect against aspiration Subjective Allergies: Coded Allergies: No Known Allergies (Verified , 12/31/09) Subjective above noted transitioning off of BIPAP more awake less distress d/w RN Objective Last 24 Hour Vital Signs Date Time Temp Pulse Resp B/P (MAP) Pulse Ox O2 Delivery O2 Flow Rate FiO2 10/23/19 10:41 80 24 100 Venturi Mask 8.0 40 82 24 100 10/23/19 08:00 99.4 82 17 114/51 (72) 98 10/23/19 07:46 80 26 100 Bi-Pap 40 82 30 100 10/23/19 07:44 100 Bi-Pap 40 10/23/19 07:44 82 21 100 40 10/23/19 05:00 85 21 98 40 10/23/19 04:00 84 10/23/19 04:00 97.6 84 16 130/61 (84) 98 10/23/19 02:48 82 19 97 40 10/23/19 00:45 77 26 97 40 10/23/19 00:00 97.8 94 14 111/56 (74) 96 10/23/19 00:00 90 10/23/19 00:00 Bi-pap 10/22/19 22:50 82 28 96 40 10/22/19 21:00 Bi-pap 10/22/19 20:41 87 28 98 40 10/22/19 20:17 80 28 99 Bi-Pap 40 78 30 97 10/22/19 20:16 78 30 97 Bi-Pap 40 78 30 96 40 10/22/19 20:15 97 Bi-Pap 40 10/22/19 20:00 97.5 88 20 126/86 (99) 100 10/22/19 20:00 95 10/22/19 18:03 86 22 97 Bi-Pap 40 94 28 99 40 10/22/19 17:00 85 22 97 Bi-Pap 30 94 28 99 40 10/22/19 16:00 97.7 92 23 102/43 (62) 97 10/22/19 15:32 107 2/15/20 14:59 86 22 97 Bi-Pap 40 94 28 99 40 10/22/19 12:47 95 28 98 Bi-Pap 40 94 28 99 40 10/22/19 12:00 98.7 94 24 125/60 (81) 100 10/22/19 11:45 91 Intake and Output 10/22/19 10/23/19 19:00 07:00 Output Total 850 ml 550 ml Balance -850 ml -550 ml Output Urine Total 850 ml 250 ml Other 300 ml Laboratory Tests 10/22/19 12:32: Arterial Blood pH 7.514H, Arterial Blood Partial Pressure CO2 38.6, Arterial Blood Partial Pressure O2 119.0H, Arterial Blood HCO3 30.4H, Arterial Blood Oxygen Saturation 98.3, Arterial Blood Base Excess 7H, Danilo Test Positive 10/23/19 03:53: White Blood Count 29.8*H, Red Blood Count 3.45L, Hemoglobin 9.8L, Hematocrit 30.3L, Mean Corpuscular Volume 88, Mean Corpuscular Hemoglobin 28.4, Mean Corpuscular Hemoglobin Concent 32.4, Red Cell Distribution Width 15.1H, Platelet Count 190, Mean Platelet Volume 5.9L, Neutrophils (%) (Auto) , Lymphocytes (%) (Auto) , Monocytes (%) (Auto) , Eosinophils (%) (Auto) , Basophils (%) (Auto) , Differential Total Cells Counted 100, Neutrophils % ( Manual) 87H, Lymphocytes % (Manual) 11L, Monocytes % (Manual) 2, Eosinophils % ( Manual) 0, Basophils % (Manual) 0, Band Neutrophils 0, Platelet Estimate Adequate, Platelet Morphology Normal, Hypochromasia 2+, Anisocytosis 1+, Sodium Level 149H, Potassium Level 3.3L, Chloride Level 106, Carbon Dioxide Level 32, Anion Gap 11, Blood Urea Nitrogen 31H, Creatinine 2.3H, Estimat Glomerular Filtration Rate 24.7, Glucose Level 257H, Calcium Level 9.6, Magnesium Level 1.9 , Total Bilirubin 0.8, Aspartate Amino Transf (AST/SGOT) 14L, Alanine Aminotransferase (ALT/SGPT) 10L, Alkaline Phosphatase 89, Pro-B-Type Natriuretic Peptide 4594H, Total Protein 7.4, Albumin 2.4L, Globulin 5.0, Albumin/Globulin Ratio 0.5L Height (Feet): 5 Height (Inches): 5.00 Weight (Pounds): 144 Objective confused bedbound, contracted coarse BS RR abd soft, (+) GJ tube ext contracted and stiff OBS Darrell Griffith MD Oct 23, 2019 11:00
[2019-10-23] MEDS ORDERED: D5NS 1000ml IV ONE (11:06)
--- NOTE | 2019-10-23 11:15 | NUR ---
NURSE NOTES: Seen by Dr. Griffith with new order for "J" port for feeds only. "G" port for meds. only. and place "G" port to low intermittent suction clamp x 1 hour after meds. Flush both ports with 50cc. of water each q4hrs. And start Glucerna 1.2 continuos at 25cc/hr on "J" tube.
[2019-10-23 12:00] VITALS: BP 118/44
--- NOTE | 2019-10-23 12:03 | Infectious Diseases Prog Note ---
Assessment/Plan Assessment/Plan A; 1. Urinary tract infection with Pseudomonas 2. Acute renal failure. 3. Hypertension. 4. Congestive heart failure. 5. 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 DNR status PLAN: 1. Continue Zosyn. 2. Continue Levaquin X 1 day 3. Repeat CXR Subjective ROS Limited/Unobtainable: Yes Constitutional: Denies: fever Respiratory: Reports: shortness of breath, dry cough, other - started on oxygen today Gastrointestinal/Abdominal: Denies: diarrhea Allergies: Coded Allergies: No Known Allergies (Verified , 12/31/09) Objective Vital Signs Last 24 Hour Vital Signs Date Time Temp Pulse Resp B/P (MAP) Pulse Ox O2 Delivery O2 Flow Rate FiO2 10/23/19 10:41 80 24 100 Venturi Mask 8.0 40 82 24 100 10/23/19 08:00 99.4 82 17 114/51 (72) 98 10/23/19 07:46 80 26 100 Bi-Pap 40 82 30 100 10/23/19 07:44 100 Bi-Pap 40 10/23/19 07:44 82 21 100 40 10/23/19 05:00 85 21 98 40 10/23/19 04:00 84 10/23/19 04:00 97.6 84 16 130/61 (84) 98 10/23/19 02:48 82 19 97 40 10/23/19 00:45 77 26 97 40 10/23/19 00:00 97.8 94 14 111/56 (74) 96 10/23/19 00:00 90 10/23/19 00:00 Bi-pap 10/22/19 22:50 82 28 96 40 10/22/19 21:00 Bi-pap 10/22/19 20:41 87 28 98 40 10/22/19 20:17 80 28 99 Bi-Pap 40 78 30 97 10/22/19 20:16 78 30 97 Bi-Pap 40 78 30 96 40 10/22/19 20:15 97 Bi-Pap 40 10/22/19 20:00 97.5 88 20 126/86 (99) 100 10/22/19 20:00 95 10/22/19 18:03 86 22 97 Bi-Pap 40 94 28 99 40 10/22/19 17:00 85 22 97 Bi-Pap 30 94 28 99 40 10/22/19 16:00 97.7 92 23 102/43 (62) 97 10/22/19 15:32 107 10/22/19 14:59 86 22 97 Bi-Pap 40 94 28 99 40 10/22/19 12:47 95 28 98 Bi-Pap 40 94 28 99 40 10/22/19 12:00 98.7 94 24 125/60 (81) 100 Height (Feet): 5 Height (Inches): 5.00 Weight (Pounds): 144 HEENT: mucous membranes moist Respiratory/Chest: decreased breath sounds, other - oxygen by mask Cardiovascular: normal rate Abdomen: soft, non tender, other - J tube Extremities: no edema Neurologic/Psychiatric: disoriented, other - opens eyes Laboratory Tests Test 10/22/19 12:32 10/23/19 03:53 Arterial Blood pH 7.514 (7.350-7.450) Arterial Blood Partial Pressure CO2 38.6 mmHg (35.0-45.0) Arterial Blood Partial Pressure O2 119.0 mmHg (75.0-100.0) H Arterial Blood HCO3 30.4 mmol/L (22.0-26.0) H Arterial Blood Oxygen Saturation 98.3 % (95-100) Arterial Blood Base Excess 7 (-2-2) H Danilo Test Positive White Blood Count 29.8 K/UL (4.8-10.8) *H Red Blood Count 3.45 M/UL (4.20-5.40) L Hemoglobin 9.8 G/DL (12.0-16.0) L Hematocrit 30.3 % (37.0-47.0) L Mean Corpuscular Volume 88 FL (80-99) Mean Corpuscular Hemoglobin 28.4 PG (27.0-31.0) Mean Corpuscular Hemoglobin Concent 32.4 G/DL (32.0-36.0) Red Cell Distribution Width 15.1 % (11.6-14.8) H Platelet Count 190 K/UL (150-450) Mean Platelet Volume 5.9 FL (6.5-10.1) L Neutrophils (%) (Auto) % (45.0-75.0) Lymphocytes (%) (Auto) % (20.0-45.0) Monocytes (%) (Auto) % (1.0-10.0) Eosinophils (%) (Auto) % (0.0-3.0) Basophils (%) (Auto) % (0.0-2.0) Differential Total Cells Counted 100 Neutrophils % (Manual) 87 % (45-75) H Lymphocytes % (Manual) 11 % (20-45) L Monocytes % (Manual) 2 % (1-10) Eosinophils % (Manual) 0 % (0-3) Basophils % (Manual) 0 % (0-2) Band Neutrophils 0 % (0-8) Platelet Estimate Adequate Platelet Morphology Normal Hypochromasia 2+ Anisocytosis 1+ Sodium Level 149 MMOL/L (136-145) H Potassium Level 3.3 MMOL/L (3.5-5.1) L Chloride Level 106 MMOL/L (98-107) Carbon Dioxide Level 32 MMOL/L (21-32) Anion Gap 11 mmol/L (5-15) Blood Urea Nitrogen 31 mg/dL (7-18) H Creatinine 2.3 MG/DL (0.55-1.30) H Estimat Glomerular Filtration Rate 24.7 mL/min (>60) Glucose Level 257 MG/DL (74-106) H Calcium Level 9.6 MG/DL (8.5-10.1) Magnesium Level 1.9 MG/DL (1.8-2.4) Total Bilirubin 0.8 MG/DL (0.2-1.0) Aspartate Amino Transf (AST/SGOT) 14 U/L (15-37) L Alanine Aminotransferase (ALT/SGPT) 10 U/L (12-78) L Alkaline Phosphatase 89 U/L (46-116) Pro-B-Type Natriuretic Peptide 4594 pg/mL (0-125) H Total Protein 7.4 G/DL (6.4-8.2) Albumin 2.4 G/DL (3.4-5.0) L Globulin 5.0 g/dL Albumin/Globulin Ratio 0.5 (1.0-2.7) L Current Medications Medications (Trade) Dose Ordered Sig/Aaron Route PRN Reason Start Time Stop Time Status Last Admin Dose Admin Albuterol/ Ipratropium (Albuterol/ Ipratropium) 3 ml QIDRT HHN 10/21/19 07:00 10/26/19 06:59 10/23/19 10:39 Aspirin (ASA) 81 mg DAILY GT 10/19/19 09:00 11/14/19 08:59 10/23/19 08:53 Atropine Sulfate (Atropine Opth Jami) 1 drop Q8HR SL 10/18/19 22:00 11/16/19 09:59 10/23/19 05:33 Clonidine HCl (Catapres Tab) 0.1 mg Q6H PRN GT SBP>160 10/18/19 21:08 11/17/19 21:07 Dextrose (Dextrose 50%) 25 ml Q30M PRN IV Hypoglycemia 10/21/19 14:45 11/20/19 14:44 Dextrose (Dextrose 50%) 50 ml Q30M PRN IV Hypoglycemia 10/21/19 14:45 11/20/19 14:44 Gabapentin (Neurontin) 100 mg BID@0900,2100 GT 10/18/19 22:00 11/17/19 21:59 10/23/19 08:53 Glycopyrrolate (Robinul) 0.2 mg Q8HR IV 10/18/19 22:00 11/16/19 13:59 10/23/19 05:33 Heparin Sodium (Porcine) (Heparin 5000 units/ml) 5,000 units EVERY 12 HOURS SUBQ 10/18/19 22:00 11/17/19 21:59 10/23/19 08:55 Insulin Aspart (NovoLOG) BEFORE MEALS AND HS SUBQ 10/21/19 16:30 11/20/19 16:29 10/23/19 05:36 Lactulose (Cephulac) 20 gm DAILYPRN PRN GT Constipation 10/18/19 21:09 11/17/19 21:08 Lansoprazole (Prevacid) 30 mg DAILY GT 10/19/19 09:00 11/14/19 08:59 10/23/19 08:53 Levetiracetam (Keppra) 1,000 mg BID@0900,2100 GT 10/18/19 22:00 11/17/19 21:59 10/23/19 08:53 Levofloxacin (Levaquin) 250 mg DAILY GT 10/19/19 09:00 10/26/19 08:59 10/23/19 08:53 Levothyroxine Sodium (Synthroid) 75 mcg DAILY@0630 GT 10/19/19 06:30 11/15/19 06:29 10/22/19 06:56 Magnesium Hydroxide (Mom) 30 ml DAILYPRN PRN GT Constipation 10/18/19 21:10 11/17/19 21:09 Metoclopramide HCl (Reglan) 2.5 mg Q8HR IVP 10/18/19 22:00 11/17/19 21:59 10/23/19 05:33 Piperacillin Sod/ Tazobactam Sod 3.375 gm/Sodium Chloride 110 ml @ 27.5 mls/hr EVERY 8 HOURS IVPB 10/20/19 22:00 10/25/19 21:59 10/23/19 05:47 Polyethylene Glycol (Miralax) 17 gm BEDTIME GT 10/18/19 22:00 11/17/19 21:59 10/22/19 21:28 Sodium Chloride 1,000 ml @ 50 mls/hr Q20H IV 10/23/19 11:15 11/22/19 11:14 Bay Richter MD Oct 23, 2019 12:03
[2019-10-23 16:00] VITALS: BP 132/73
--- NOTE | 2019-10-23 19:30 | NUR ---
NURSE NOTES: Received Pt is resting on the bed, confused and non-verbal. On O2 8L via Venturi mask, FiO2 40% and SaO2 98% noted. Iv site intact and no sign of infiltration noted. On J-tube feeding with Glucerna 1.2 @ 25cc/hr and no residual noted. On low intermittent suction on G-tube site and noted dark greenish color drainage. On purewicks and in placed. Placed fall and seizure precaution. Will continue to care plan.
--- NOTE | 2019-10-23 19:30 | NUR ---
HAND-OFF: Report given to Krystian GEIGER. Pt. remain stable.
[2019-10-23 20:00] VITALS: BP 149/68
[2019-10-23] MEDS: Miralax 17gm pkt GT SCH (21:23)
--- NOTE | 2019-10-23 21:45 | NUR ---
NURSE NOTES: Collected urine and sputum specimen. Will continue to monitor any change of condition.
[2019-10-23 22:13] LABS: APPEARANCE,URINE CLOUDY; BILIRUBIN, URINE NEGATIVE (NEGATIVE); COLOR,URINE PALE YELLOW; GLUCOSE, URINE (UA) 4+ (NEGATIVE); KETONES,URINE 3+ (NEGATIVE); LEUKOCYTE ESTERASE ,URINE 2+ (NEGATIVE); NITRITE,URINE NEGATIVE (NEGATIVE); PH,URINE 5 (4.5-8.0); PROTEIN,URINE 3+ (NEGATIVE); UROBILINOGEN,URINE NORMAL MG/DL (0.0-1.0)
[2019-10-23] MEDS: Potassium Chloride 20 MEQ in 1/2 NS 1000ml 1,000 ML IV SCH (22:39)
--- NOTE | 2019-10-23 23:00 | Progress Note ---
DATE: 10/23/2019 CARDIOLOGY PROGRESS NOTE SUBJECTIVE: The patient still has congestion requiring BiPAP support. He has drainage from J-tube. PHYSICAL EXAMINATION: VITAL SIGNS: Blood pressure 130/61, pulse 84, respiratory rate 16. LUNGS: Bilateral breath sounds and rhonchi. HEART: Regular rhythm and rate. Normal S1 and S2 with a fourth heart sound. ABDOMEN: Soft, slightly distended. EXTREMITIES: No edema. LABORATORY AND DIAGNOSTIC DATA: White count 29, hemoglobin 9.8. Sodium 149, potassium 3.3, BUN 31, creatinine 2.3. Magnesium 1.9. Pro-natriuretic peptide 4500. Albumin 2.4. IMPRESSION: 1. Sepsis. 2. Leukocytosis. 3. Dehydration. 4. . 5. Hypokalemia. 6. Acute renal failure. 7. Severe protein-calorie malnutrition. 8. Acute on chronic diastolic congestive heart failure. PLAN: 1. Antimicrobials. 2. Respiratory hygiene. 3. Hypotonic IV fluids. 4. Hold diuretics. 5. Replace potassium. 6. Check magnesium. 7. Feedings on hold until residuals decreased. Kavon Peña M.D. DR: Morris JOB#: [id number] CC:
[2019-10-24] VITALS: BP 122/56
[2019-10-24] MEDS: NovoLOG Insulin Flexpen SUBQ SCH ×5 (00:15→23:41)
[2019-10-24 04:00] VITALS: BP 145/63
[2019-10-24 05:26] LABS: HEMATOCRIT 26.6 % (37.0-47.0); HEMOGLOBIN 8.5 G/DL (12.0-16.0); MEAN CORPUSCULAR VOLUME 89 FL (80-99); PLATELET COUNT 202 K/UL (150-450); RED CELL DISTRIBUTION WIDTH 15.4 % (11.6-14.8); WHITE BLOOD COUNT 18.6 K/UL (4.8-10.8)
[2019-10-24 05:32] LABS: ALANINE AMINOTRANSFERASE 10 U/L (12-78); ALBUMIN 2.3 G/DL (3.4-5.0); ALBUMIN/GLOBULIN RATIO 0.5 (1.0-2.7); ALKALINE PHOSPHATASE 86 U/L (46-116); ANION GAP 9 mmol/L (5-15); ASPARTATE AMINO TRANSFERASE 10 U/L (15-37); BILIRUBIN,TOTAL 0.5 MG/DL (0.2-1.0); BLOOD UREA NITROGEN 34 mg/dL (7-18); CALCIUM 9.5 MG/DL (8.5-10.1); CARBON DIOXIDE 34 MMOL/L (21-32); CHLORIDE 109 MMOL/L (98-107); CREATININE 2.5 MG/DL (0.55-1.30); POTASSIUM 3.8 MMOL/L (3.5-5.1); SODIUM 152 MMOL/L (136-145)
[2019-10-24] MEDS: Metoclopramide 10mg/2ml Inj IVP SCH ×3 (05:40→21:28)
[2019-10-24] MEDS: Piperacillin/Tazobactam 3.375 GM in NS 110 ML IVPB SCH ×3 (05:40→21:31)
[2019-10-24] MEDS: Glycopyrrolate 0.2mg/ml 1ml Vial IV SCH ×3 (05:40→21:28)
--- NOTE | 2019-10-24 07:25 | NUR ---
HAND-OFF: Report given to FELY Silva. Pt is sleeping on the bed and no sign of acute distress noted.
--- NOTE | 2019-10-24 07:30 | NUR ---
NURSE NOTES: Received report from FELY Boland. Patient is resting in bed, in stable condition. No s/sx of SOB, breathing is even and unlabored. Bed is in lowest position, brakes engaged. Denies any presence of pain or discomfort at this time. Call light is kept within easy reach. Will continue to monitor patient.
[2019-10-24] MEDS: Albuterol/Ipratropium 3ml neb HHN SCH ×4 (07:46→19:37)
[2019-10-24 08:00] VITALS: BP 141/60
--- NOTE | 2019-10-24 08:20 | Pulmonology Progress Note ---
Assessment/Plan Assessment/Plan 1. Urinary tract infection. 2. mucous plugging and retained secretions; 3. Renal failure. 4. Hypertension. 5. Congestive heart failure. 6. Seizure History 7. Diabetes 8. Hypernatremia 9. EDGAR 10. acute hypoxemic respiratory failure PLAN repeat ABG for change and monitor repeat imaging and monitor continue antibiotics and CPT to help with secretions suction PRN monitor in SHAY BIPAP as needed monitor fluid status meds noted oxygen as is respiratory care as is on Lasix ID follow up prognosis poor close followup for change; prognosis guarded impression, plan, and exam edited and reviewed in detail care discussed with RN Subjective ROS Limited/Unobtainable: Yes Allergies: Coded Allergies: No Known Allergies (Verified , 12/31/09) Subjective care noted events noted and discussed was on BIPAP overnight now on 100% confirmed DNR Objective Last 24 Hour Vital Signs Date Time Temp Pulse Resp B/P (MAP) Pulse Ox O2 Delivery O2 Flow Rate FiO2 10/24/19 07:45 99 20 100 Venturi Mask 8.0 40 98 20 100 10/24/19 07:43 99 Venturi Mask 8.0 40 10/24/19 05:18 82 19 100 10/24/19 04:00 103 10/24/19 04:00 Bi-pap 10/24/19 04:00 97.6 80 20 145/63 (90) 100 10/24/19 02:50 86 19 99 10/24/19 01:11 84 19 98 10/24/19 00:00 Bi-pap 10/24/19 00:00 97.8 87 20 122/56 (78) 99 10/24/19 00:00 86 10/23/19 20:00 Bi-pap 10/23/19 20:00 118 10/23/19 20:00 97.7 110 20 149/68 (95) 100 10/23/19 19:33 8.0 40 10/23/19 19:14 86 18 100 Venturi Mask 8.0 40 87 20 100 10/23/19 19:14 100 Venturi Mask 8.0 40 10/23/19 16:00 99.1 86 19 132/73 (92) 100 10/23/19 15:24 88 10/23/19 14:04 80 20 100 Venturi Mask 8.0 40 87 20 100 10/23/19 12:00 99.0 86 18 118/44 (68) 99 10/23/19 11:49 84 10/23/19 10:41 80 24 100 Venturi Mask 8.0 40 82 24 100 10/23/19 09:00 Bi-pap Intake and Output 10/23/19 10/24/19 19:00 07:00 Intake Total 400 ml 1370.5 ml Output Total 200 ml 1100 ml Balance 200 ml 270.5 ml Free Water 150 ml 150 ml IV Total 50 ml 945.5 ml Tube Feeding 200 ml 275 ml Output Urine Total 550 ml Other 200 ml 550 ml Objective WDWN on nonrebreather mask reduced breath sounds bilaterally with scattered rhonchi [id number] without MRG NABS nontender no HSM no CC mild edema nonfocal reduced LOC reviewed and edited Microbiology Date/Time Source Procedure Growth Status 10/23/19 21:44 Urine,Clean Catch Urine Culture - Preliminary NO GROWTH Resulted Laboratory Tests 10/23/19 21:44: Urine Color Pale yellow, Urine Appearance Cloudy, Urine pH 5, Urine Specific [place] 1.010, Urine Protein 3+H, Urine Glucose (UA) 4+H, Urine Ketones 3+H, Urine Blood 3+H, Urine Nitrite Negative, Urine Bilirubin Negative, Urine Urobilinogen Normal, Urine Leukocyte Esterase 2+H, Urine RBC 0-2, Urine WBC 15- 20H, Urine Squamous Epithelial Cells Occasional, Urine Amorphous Sediment ManyH , Urine Bacteria ModerateH, Urine Yeast FewH 10/24/19 03:30: White Blood Count 18.6H, Red Blood Count 3.00L, Hemoglobin 8.5L, Hematocrit 26.6L, Mean Corpuscular Volume 89, Mean Corpuscular Hemoglobin 28.2, Mean Corpuscular Hemoglobin Concent 31.9L, Red Cell Distribution Width 15.4H, Platelet Count 202, Mean Platelet Volume 6.2L, Neutrophils (%) (Auto) , Lymphocytes (%) (Auto) , Monocytes (%) (Auto) , Eosinophils (%) (Auto) , Basophils (%) (Auto) , Neutrophils % (Manual) [Pending], Lymphocytes % (Manual) [Pending], Platelet Estimate [Pending], Platelet Morphology [Pending], Sodium Level 152H, Potassium Level 3.8, Chloride Level 109H, Carbon Dioxide Level 34H, Anion Gap 9, Blood Urea Nitrogen 34H, Creatinine 2.5H, Estimat Glomerular Filtration Rate 22.5, Glucose Level 315H, Calcium Level 9.5, Total Bilirubin 0.5 , Aspartate Amino Transf (AST/SGOT) 10L, Alanine Aminotransferase (ALT/SGPT) 10L , Alkaline Phosphatase 86, Total Protein 7.0, Albumin 2.3L, Globulin 4.7, Albumin/Globulin Ratio 0.5L Current Medications Medications (Trade) Dose Ordered Sig/Aaron Route PRN Reason Start Time Stop Time Status Last Admin Dose Admin Albuterol/ Ipratropium (Albuterol/ Ipratropium) 3 ml QIDRT HHN 10/21/19 07:00 10/26/19 06:59 10/24/19 07:46 Aspirin (ASA) 81 mg DAILY GT 10/19/19 09:00 11/14/19 08:59 10/23/19 08:53 Atropine Sulfate (Atropine Opth Jami) 1 drop Q8HR SL 10/18/19 22:00 11/16/19 09:59 10/24/19 05:41 Clonidine HCl (Catapres Tab) 0.1 mg Q6H PRN GT SBP>160 10/18/19 21:08 11/17/19 21:07 Dextrose (Dextrose 50%) 25 ml Q30M PRN IV Hypoglycemia 10/21/19 14:45 11/20/19 14:44 Dextrose (Dextrose 50%) 50 ml Q30M PRN IV Hypoglycemia 10/21/19 14:45 11/20/19 14:44 Gabapentin (Neurontin) 100 mg BID@0900,2100 GT 10/18/19 22:00 11/17/19 21:59 10/23/19 20:53 Glycopyrrolate (Robinul) 0.2 mg Q8HR IV 10/18/19 22:00 11/16/19 13:59 10/24/19 05:40 Heparin Sodium (Porcine) (Heparin 5000 units/ml) 5,000 units EVERY 12 HOURS SUBQ 10/18/19 22:00 11/17/19 21:59 10/23/19 20:55 Insulin Aspart (NovoLOG) Q6HR SUBQ 10/24/19 00:00 11/20/19 16:29 10/24/19 05:55 Lactulose (Cephulac) 20 gm DAILYPRN PRN GT Constipation 10/18/19 21:09 11/17/19 21:08 Lansoprazole (Prevacid) 30 mg DAILY GT 10/19/19 09:00 11/14/19 08:59 10/23/19 08:53 Levetiracetam (Keppra) 1,000 mg BID@0900,2100 GT 10/18/19 22:00 11/17/19 21:59 10/23/19 20:53 Levofloxacin (Levaquin) 250 mg DAILY GT 10/19/19 09:00 10/26/19 08:59 10/23/19 08:53 Levothyroxine Sodium (Synthroid) 75 mcg DAILY@0630 GT 10/19/19 06:30 11/15/19 06:29 10/24/19 06:00 Magnesium Hydroxide (Mom) 30 ml DAILYPRN PRN GT Constipation 10/18/19 21:10 11/17/19 21:09 Metoclopramide HCl (Reglan) 2.5 mg Q8HR IVP 10/18/19 22:00 11/17/19 21:59 10/24/19 05:40 Piperacillin Sod/ Tazobactam Sod 3.375 gm/Sodium Chloride 110 ml @ 27.5 mls/hr EVERY 8 HOURS IVPB 10/20/19 22:00 10/25/19 21:59 10/24/19 05:40 Polyethylene Glycol (Miralax) 17 gm BEDTIME GT 10/18/19 22:00 11/17/19 21:59 10/23/19 21:23 Potassium Chloride 20 meq/ Sodium Chloride 1,010 ml @ 75 mls/hr [id number] IV 10/23/19 22:30 11/22/19 22:29 10/23/19 22:39 Torey Douglass MD Oct 24, 2019 08:20
[2019-10-24] MEDS: levETIRAcetam 500mg/5ml Liquid GT SCH ×2 (09:15→20:08)
[2019-10-24] MEDS: Aspirin Baby 81mg GT SCH (09:15)
[2019-10-24] MEDS: Heparin 5000 units/ml inj SUBQ SCH ×2 (09:49→20:14)
[2019-10-24] MEDS: Levemir Flexpen SUBQ SCH ×2 (09:50→17:25)
--- NOTE | 2019-10-24 10:28 | NUR ---
NURSE NOTES: Called microbiology and spoke with Candace to follow up on sputum sample. Per Candace sputum sample is being processed. Noted. Will continue to monitor patient.
--- NOTE | 2019-10-24 10:36 | Infectious Diseases Prog Note ---
Assessment/Plan Assessment/Plan antibiotics : zosyn, levoquin A 1. pseudomonas UTI s/p rx 2. renal failure 3. hypertension 4. CHF 5. aspiration pneumonia 6. leucocytosis improving P 1. d/c po levoquin 2. continue zosyn 3. will follow up cultures Subjective ROS Limited/Unobtainable: Yes Allergies: Coded Allergies: No Known Allergies (Verified , 12/31/09) Objective Vital Signs Last 24 Hour Vital Signs Date Time Temp Pulse Resp B/P (MAP) Pulse Ox O2 Delivery O2 Flow Rate FiO2 10/24/19 09:00 Bi-pap 10/24/19 08:00 98.2 104 20 141/60 (87) 100 10/24/19 08:00 87 10/24/19 07:45 99 20 100 Venturi Mask 8.0 40 98 20 100 10/24/19 07:43 99 Venturi Mask 8.0 40 10/24/19 05:18 82 19 100 10/24/19 04:00 103 10/24/19 04:00 Bi-pap 10/24/19 04:00 97.6 80 20 145/63 (90) 100 10/24/19 02:50 86 19 99 10/24/19 01:11 84 19 98 10/24/19 00:00 Bi-pap 10/24/19 00:00 97.8 87 20 122/56 (78) 99 10/24/19 00:00 86 10/23/19 20:00 Bi-pap 10/23/19 20:00 118 10/23/19 20:00 97.7 110 20 149/68 (95) 100 10/23/19 19:33 8.0 40 10/23/19 19:14 86 18 100 Venturi Mask 8.0 40 87 20 100 10/23/19 19:14 100 Venturi Mask 8.0 40 10/23/19 16:00 99.1 86 19 132/73 (92) 100 10/23/19 15:24 88 10/23/19 14:04 80 20 100 Venturi Mask 8.0 40 87 20 100 10/23/19 12:00 99.0 86 18 118/44 (68) 99 10/23/19 11:49 84 10/23/19 10:41 80 24 100 Venturi Mask 8.0 40 82 24 100 Height (Feet): 5 Height (Inches): 5.00 Weight (Pounds): 144 HEENT: status post trach Respiratory/Chest: lungs clear Cardiovascular: normal rate, regular rhythm, no gallop/murmur Abdomen: soft, non tender, other - GT Extremities: no edema Microbiology Date/Time Source Procedure Growth Status 10/23/19 21:44 Urine,Clean Catch Urine Culture - Preliminary NO GROWTH Resulted Laboratory Tests Test 10/23/19 21:44 10/24/19 03:30 Urine Color Pale yellow Urine Appearance Cloudy Urine pH 5 (4.5-8.0) Urine Specific [place] 1.010 (1.005-1.035) Urine Protein 3+ (NEGATIVE) H Urine Glucose (UA) 4+ (NEGATIVE) H Urine Ketones 3+ (NEGATIVE) H Urine Blood 3+ (NEGATIVE) H Urine Nitrite Negative (NEGATIVE) Urine Bilirubin Negative (NEGATIVE) Urine Urobilinogen Normal MG/DL (0.0-1.0) Urine Leukocyte Esterase 2+ (NEGATIVE) H Urine RBC 0-2 /HPF (0 - 2) Urine WBC 15-20 /HPF (0 - 2) H Urine Squamous Epithelial Cells Occasional /LPF Urine Amorphous Sediment Many /LPF (NONE) H Urine Bacteria Moderate /HPF (NONE) H Urine Yeast Few /HPF (NONE) H White Blood Count 18.6 K/UL (4.8-10.8) H Red Blood Count 3.00 M/UL (4.20-5.40) L Hemoglobin 8.5 G/DL (12.0-16.0) L Hematocrit 26.6 % (37.0-47.0) L Mean Corpuscular Volume 89 FL (80-99) Mean Corpuscular Hemoglobin 28.2 PG (27.0-31.0) Mean Corpuscular Hemoglobin Concent 31.9 G/DL (32.0-36.0) L Red Cell Distribution Width 15.4 % (11.6-14.8) H Platelet Count 202 K/UL (150-450) Mean Platelet Volume 6.2 FL (6.5-10.1) L Neutrophils (%) (Auto) % (45.0-75.0) Lymphocytes (%) (Auto) % (20.0-45.0) Monocytes (%) (Auto) % (1.0-10.0) Eosinophils (%) (Auto) % (0.0-3.0) Basophils (%) (Auto) % (0.0-2.0) Differential Total Cells Counted 100 Neutrophils % (Manual) 86 % (45-75) H Lymphocytes % (Manual) 4 % (20-45) L Monocytes % (Manual) 8 % (1-10) Eosinophils % (Manual) 2 % (0-3) Basophils % (Manual) 0 % (0-2) Band Neutrophils 0 % (0-8) Platelet Estimate Adequate Platelet Morphology Normal Hypochromasia 1+ Anisocytosis 1+ Sodium Level 152 MMOL/L (136-145) H Potassium Level 3.8 MMOL/L (3.5-5.1) Chloride Level 109 MMOL/L (98-107) H Carbon Dioxide Level 34 MMOL/L (21-32) H Anion Gap 9 mmol/L (5-15) Blood Urea Nitrogen 34 mg/dL (7-18) H Creatinine 2.5 MG/DL (0.55-1.30) H Estimat Glomerular Filtration Rate 22.5 mL/min (>60) Glucose Level 315 MG/DL (74-106) H Calcium Level 9.5 MG/DL (8.5-10.1) Total Bilirubin 0.5 MG/DL (0.2-1.0) Aspartate Amino Transf (AST/SGOT) 10 U/L (15-37) L Alanine Aminotransferase (ALT/SGPT) 10 U/L (12-78) L Alkaline Phosphatase 86 U/L (46-116) Total Protein 7.0 G/DL (6.4-8.2) Albumin 2.3 G/DL (3.4-5.0) L Globulin 4.7 g/dL Albumin/Globulin Ratio 0.5 (1.0-2.7) L Current Medications Medications (Trade) Dose Ordered Sig/Aaron Route PRN Reason Start Time Stop Time Status Last Admin Dose Admin Albuterol/ Ipratropium (Albuterol/ Ipratropium) 3 ml QIDRT HHN 10/21/19 07:00 10/26/19 06:59 10/24/19 07:46 Aspirin (ASA) 81 mg DAILY GT 10/19/19 09:00 11/14/19 08:59 10/24/19 09:15 Atropine Sulfate (Atropine Opth Jami) 1 drop Q8HR SL 2/11/20 22:00 11/16/19 09:59 10/24/19 05:41 Clonidine HCl (Catapres Tab) 0.1 mg Q6H PRN GT SBP>160 10/18/19 21:08 11/17/19 21:07 Dextrose (Dextrose 50%) 25 ml Q30M PRN IV Hypoglycemia 10/21/19 14:45 11/20/19 14:44 Dextrose (Dextrose 50%) 50 ml Q30M PRN IV Hypoglycemia 10/21/19 14:45 11/20/19 14:44 Gabapentin (Neurontin) 100 mg BID@0900,2100 GT 10/18/19 22:00 11/17/19 21:59 10/24/19 09:15 Glycopyrrolate (Robinul) 0.2 mg Q8HR IV 10/18/19 22:00 11/16/19 13:59 10/24/19 05:40 Heparin Sodium (Porcine) (Heparin 5000 units/ml) 5,000 units EVERY 12 HOURS SUBQ 10/18/19 22:00 11/17/19 21:59 10/24/19 09:49 Insulin Aspart (NovoLOG) Q6HR SUBQ 10/24/19 00:00 11/20/19 16:29 10/24/19 05:55 Insulin Detemir (Levemir) 5 units BID SUBQ 10/24/19 10:00 11/23/19 09:59 10/24/19 09:50 Lactulose (Cephulac) 20 gm DAILYPRN PRN GT Constipation 10/18/19 21:09 11/17/19 21:08 Lansoprazole (Prevacid) 30 mg DAILY GT 10/19/19 09:00 11/14/19 08:59 10/24/19 09:15 Levetiracetam (Keppra) 1,000 mg BID@0900,2100 GT 10/18/19 22:00 11/17/19 21:59 10/24/19 09:15 Levofloxacin (Levaquin) 250 mg DAILY GT 10/19/19 09:00 10/26/19 08:59 10/24/19 09:15 Levothyroxine Sodium (Synthroid) 75 mcg DAILY@0630 GT 10/19/19 06:30 11/15/19 06:29 10/24/19 06:00 Magnesium Hydroxide (Mom) 30 ml DAILYPRN PRN GT Constipation 10/18/19 21:10 11/17/19 21:09 Metoclopramide HCl (Reglan) 2.5 mg Q8HR IVP 10/18/19 22:00 11/17/19 21:59 10/24/19 05:40 Piperacillin Sod/ Tazobactam Sod 3.375 gm/Sodium Chloride 110 ml @ 27.5 mls/hr EVERY 8 HOURS IVPB 10/20/19 22:00 10/25/19 21:59 10/24/19 05:40 Polyethylene Glycol (Miralax) 17 gm BEDTIME GT 10/18/19 22:00 11/17/19 21:59 10/23/19 21:23 Potassium Chloride 20 meq/ Sodium Chloride 1,010 ml @ 75 mls/hr [id number] IV 10/23/19 22:30 11/22/19 22:29 10/23/19 22:39 Tyrel Prieto MD Oct 24, 2019 10:36
--- NOTE | 2019-10-24 10:48 | NUR ---
RD ASSESSMENT & RECOMMENDATIONS SEE CARE ACTIVITY FOR COMPLETE ASSESSMENT DAILY ESTIMATED NEEDS: Needs based on DM, wound, CHF, bedbound 57.4kg abw 23-30 kcals/kg 9304-9572 total kcals 1.25-1.5 g protein/kg 72-86 g total protein 20-25 mL/kg 9305-7434 total fluid mLs NUTRITION DIAGNOSIS: 1) Altered nutrition related lab values r/t DM, CKD, cardiac hx as evidenced by pt w/ elev BUN (90 ->19), Cr (2.2 ->1.5), elev BG (200's, 300's) elev BNP (4825) 2) Swallowing difficulty r/t dysphagia as evidenced by pt is GT dep,now s/p GT-> Jt conversion. CURRENT TF:Glucerna 1.2 @25 x22 ENTERAL NUTRITION RECOMMENDATIONS: Glucerna 1.2 @ 60ml/hr x 22 hrs to provide 1320ml, 1584 kcal, 79g pro, 1063ml free H2O * As able advance by 5ml to goal rate of 60ml/hr x22 hrs to better meet est nutritional needs * Hold 1 hr before and after Synthroid med * HOB over 30 degrees/ water flush per MD Monitor lytes closely, need to change TF to Nepro ADDITIONAL RECOMMENDATIONS: 1) Monitor lytes closely, need for TF change (Pt on Nepro STOCK RAISER, possible h/o electrolyte imbalance) 2) Wound care- Maik 1pkt BID via PEG once pt tolerates TF 3) Calibrate bed scale for accurate wt (Per [facility], [place]=816.8lbs) 4) Add NISS: BG elev, monitor need for long acting insulin Monitor for hypoglycemia while pt is NPO 5) Consider DC 1/2NS from IVF: hypernatremia
--- NOTE | 2019-10-24 11:14 | Diagnostic Imaging Report ---
Indication: Cough Technique: One view of the chest Comparison: 10/22/2019 Findings: Interim marked increase in reticular and airspace disease within the right lung. Increased dense consolidation in the left perihilar region and left lung base and suggestion of increased pleural fluid. The heart size is borderline enlarged. The aorta is tortuous and ectatic. Right shoulder dislocation again demonstrated Impression: Increasing bilateral parenchymal disease and left-sided pleural disease, as described, over 2 days
[2019-10-24 12:00] VITALS: BP 143/60
[2019-10-24] MEDS: Potassium Chloride 20 MEQ in 1/2 NS 1000ml 1,000 ML IV SCH (12:10)
--- NOTE | 2019-10-24 13:09 | NUR ---
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 98.2 HR 88 RR 20 B/P 143/60 VM 50% O2 SAT @ 99% WBC 18.6 NA 152 BUN 34 CR 2.5 IS: ZOSYN IV IVF NS W/KCL @ 75ML/HR ALB HHN STEP DOWN STATUS
[2019-10-24 16:00] VITALS: BP 139/67
--- NOTE | 2019-10-24 19:14 | NUR ---
HAND-OFF: Report given to FELY Vila.
--- NOTE | 2019-10-24 19:19 | NUR ---
NURSE NOTES: called MD LYNCH/ [facility] urgent line in regards to orders. awaiting call back. pt remains stable.
--- NOTE | 2019-10-24 19:22 | NUR ---
NURSE NOTES: pt report received from Ricardo Bain day shift RN SDU. pt remains stable. pt is alert and orient times 1. pt is on 4 L NC able to sat at 100% O2 no acute signs symptoms of acute resp distress. 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 pt bed is low, locked, armed, call light within reach. will follow plan of care.
[2019-10-24 20:00] VITALS: BP 126/67
--- NOTE | 2019-10-24 20:00 | NUR ---
NURSE NOTES: spoke with MD LYNCH and stated pt has a peripheral IV on R foot that was started prior to transfer to SDU unit and a medical history of DM. pt R foot appears asymptomatic and R Foot IV appears patent. stated to MD that i was able to start another L hand 20 G IV that is patent, asymptomatic, and no adverse observation on L hand, new IV. stated to DC R foot IV and continue fluids on L hand, new IV. pt appears stable.
[2019-10-24] MEDS: Miralax 17gm pkt GT SCH (20:08)
--- NOTE | 2019-10-24 20:34 | General Progress Note ---
Assessment/Plan Status: stable Assessment/Plan: Assessment - DM - h/o gastroparesis and GT TF intolerance - s/p G-J conversion - tolerated J port fees - OBS - resp distress, presumed due to reflux of gastric contents - contracted Recommendations - Restart TF via j port - abx - pulm toilet - G tube to LIS to protect against aspiration Subjective Allergies: Coded Allergies: No Known Allergies (Verified , 12/31/09) Subjective above noted tolerating J feeds d/w RN Objective Last 24 Hour Vital Signs Date Time Temp Pulse Resp B/P (MAP) Pulse Ox O2 Delivery O2 Flow Rate FiO2 10/24/19 19:38 96 20 100 Nasal Cannula 4.0 36 93 20 100 10/24/19 19:38 100 Nasal Cannula 4.0 36 10/24/19 16:00 4.0 10/24/19 16:00 98.2 73 20 139/67 (91) 100 10/24/19 16:00 96 10/24/19 15:39 93 20 100 Nasal Cannula 4.0 36 95 20 100 10/24/19 12:00 82 10/24/19 12:00 98.2 88 20 143/60 (87) 99 10/24/19 12:00 4.0 10/24/19 11:39 85 20 99 Venturi Mask 8.0 40 86 20 99 10/24/19 09:00 Bi-pap 10/24/19 08:00 98.2 104 20 141/60 (87) 100 10/24/19 08:00 87 10/24/19 08:00 8.0 40 10/24/19 07:45 99 20 100 Venturi Mask 8.0 40 98 20 100 10/24/19 07:43 99 Venturi Mask 8.0 40 10/24/19 05:18 82 19 100 10/24/19 04:00 103 10/24/19 04:00 Bi-pap 10/24/19 04:00 97.6 80 20 145/63 (90) 100 10/24/19 02:50 86 19 99 10/24/19 01:11 84 19 98 10/24/19 00:00 Bi-pap 10/24/19 00:00 97.8 87 20 122/56 (78) 99 10/24/19 00:00 86 Intake and Output 10/23/19 10/24/19 19:00 07:00 Intake Total 400 ml 1370.5 ml Output Total 200 ml 1100 ml Balance 200 ml 270.5 ml Free Water 150 ml 150 ml IV Total 50 ml 945.5 ml Tube Feeding 200 ml 275 ml Output Urine Total 550 ml Other 200 ml 550 ml Laboratory Tests 10/23/19 21:44: Urine Color Pale yellow, Urine Appearance Cloudy, Urine pH 5, Urine Specific [place] 1.010, Urine Protein 3+H, Urine Glucose (UA) 4+H, Urine Ketones 3+H, Urine Blood 3+H, Urine Nitrite Negative, Urine Bilirubin Negative, Urine Urobilinogen Normal, Urine Leukocyte Esterase 2+H, Urine RBC 0-2, Urine WBC 15- 20H, Urine Squamous Epithelial Cells Occasional, Urine Amorphous Sediment ManyH , Urine Bacteria ModerateH, Urine Yeast FewH 10/24/19 03:30: White Blood Count 18.6H, Red Blood Count 3.00L, Hemoglobin 8.5L, Hematocrit 26.6L, Mean Corpuscular Volume 89, Mean Corpuscular Hemoglobin 28.2, Mean Corpuscular Hemoglobin Concent 31.9L, Red Cell Distribution Width 15.4H, Platelet Count 202, Mean Platelet Volume 6.2L, Neutrophils (%) (Auto) , Lymphocytes (%) (Auto) , Monocytes (%) (Auto) , Eosinophils (%) (Auto) , Basophils (%) (Auto) , Differential Total Cells Counted 100, Neutrophils % ( Manual) 86H, Lymphocytes % (Manual) 4L, Monocytes % (Manual) 8, Eosinophils % ( Manual) 2, Basophils % (Manual) 0, Band Neutrophils 0, Platelet Estimate Adequate, Platelet Morphology Normal, Hypochromasia 1+, Anisocytosis 1+, Sodium Level 152H, Potassium Level 3.8, Chloride Level 109H, Carbon Dioxide Level 34H, Anion Gap 9, Blood Urea Nitrogen 34H, Creatinine 2.5H, Estimat Glomerular Filtration Rate 22.5, Glucose Level 315H, Calcium Level 9.5, Total Bilirubin 0.5 , Aspartate Amino Transf (AST/SGOT) 10L, Alanine Aminotransferase (ALT/SGPT) 10L , Alkaline Phosphatase 86, Total Protein 7.0, Albumin 2.3L, Globulin 4.7, Albumin/Globulin Ratio 0.5L Height (Feet): 5 Height (Inches): 5.00 Weight (Pounds): 144 Objective confused bedbound, contracted coarse BS RR abd soft, (+) GJ tube ext contracted and stiff OBS Darrell Griffith MD Oct 24, 2019 20:33
[2019-10-25] VITALS: BP 131/57
[2019-10-25] MEDS: Potassium Chloride 20 MEQ in 1/2 NS 1000ml 1,000 ML IV SCH ×2 (00:32→13:42)
--- NOTE | 2019-10-25 03:15 | Progress Note ---
DATE: 10/24/2019 CARDIOLOGY PROGRESS NOTE SUBJECTIVE: J-tube feedings have been initiated. Residuals are minimal at this time. The patient has some congestion and has required BiPAP support intermittently. OBJECTIVE: VITAL SIGNS: Blood pressure 145/63, pulse 80, and respiratory rate 20. LUNGS: Bilateral breath sounds. Rhonchi. HEART: Regular rhythm and rate. Normal S1 and S2. A 1/6 systolic murmur at apex. ABDOMEN: Soft. GJ tube intact. EXTREMITIES: Trace edema. LABORATORY DATA: White count 18.6 and hemoglobin 8.5. Sodium 152, potassium 3.8, bicarbonate 34, BUN 34, and creatinine 2.5. Albumin 2.3. Urinalysis with 15 to 20 white cells yesterday. Culture of the urine, however, is negative. IMPRESSION: 1. Urinary tract infection with Pseudomonas and sepsis recovering due to aspiration. 2. Gastroparesis, status post gastrostomy to jejunostomy tube conversion. 3. Hypertensive heart disease. 4. Acute on chronic diastolic congestive heart failure. 5. Paroxysmal bronchospasm. 6. Dehydration. 7. Hypernatremia. 8. Acute kidney injury. 9. Status post acute hypoxic respiratory failure. PLAN: 1. Respiratory hygiene. 2. BiPAP support. 3. Antimicrobials. 4. Nutrition by J-tube support. 5. BiPAP as needed. 6. Free water replacement. 7. Monitor metabolic parameters, cardiorenal parameters, and electrolytes with adjustments in therapy accordingly. Kavon Peña M.D. DR: STU JOB#: [id number] CC:
[2019-10-25 04:00] VITALS: BP 122/58
[2019-10-25 04:55] LABS: BASOPHILS % (AUTO) 0.3 % (0.0-2.0); EOSINOPHILS % (AUTO) 2.6 % (0.0-3.0); HEMOGLOBIN 8.9 G/DL (12.0-16.0); LYMPHOCYTES % (AUTO) 11.1 % (20.0-45.0); MEAN CORPUSCULAR VOLUME 89 FL (80-99); PLATELET COUNT 244 K/UL (150-450); RED BLOOD COUNT 3.14 M/UL (4.20-5.40); RED CELL DISTRIBUTION WIDTH 15.9 % (11.6-14.8)
[2019-10-25 05:26] LABS: ALANINE AMINOTRANSFERASE 11 U/L (12-78); ALBUMIN 2.3 G/DL (3.4-5.0); ALBUMIN/GLOBULIN RATIO 0.5 (1.0-2.7); ALKALINE PHOSPHATASE 87 U/L (46-116); ANION GAP 6 mmol/L (5-15); ASPARTATE AMINO TRANSFERASE 10 U/L (15-37); BILIRUBIN,TOTAL 0.4 MG/DL (0.2-1.0); BLOOD UREA NITROGEN 31 mg/dL (7-18); CALCIUM 9.7 MG/DL (8.5-10.1); CARBON DIOXIDE 36 MMOL/L (21-32); CHLORIDE 110 MMOL/L (98-107); CREATININE 2.3 MG/DL (0.55-1.30); POTASSIUM 3.9 MMOL/L (3.5-5.1); SODIUM 152 MMOL/L (136-145)
[2019-10-25] MEDS: NovoLOG Insulin Flexpen SUBQ SCH ×3 (05:33→17:39)
[2019-10-25] MEDS: Glycopyrrolate 0.2mg/ml 1ml Vial IV SCH ×3 (05:38→22:57)
[2019-10-25] MEDS: Metoclopramide 10mg/2ml Inj IVP SCH ×3 (05:38→22:57)
[2019-10-25] MEDS: Piperacillin/Tazobactam 3.375 GM in NS 110 ML IVPB SCH (05:39)
[2019-10-25] MEDS: Albuterol/Ipratropium 3ml neb HHN SCH ×4 (07:17→18:21)
--- NOTE | 2019-10-25 07:28 | NUR ---
HAND-OFF: Report given to SIMONE RN SDU. pt remains stable.
--- NOTE | 2019-10-25 07:30 | NUR ---
NURSE NOTES: Received report from FELY Silva. The patient is resting on the bed and responding to minimal stimuli but non-verbal at this time. The patient's bed in the lowest position, call light in reach, and fall, aspiration, and seizure precaution reinforced. IV site intact and patent and running IVF per order. Tube feeding running via J tube per order and minimal residual noted. Intermittent suction via G tube and still has greenish residual coming out. The patient's POLST confirmed again for DNR and DNI that was brought by correction. Will continue plan of care.
[2019-10-25 08:00] VITALS: BP 118/60
[2019-10-25] MEDS: Aspirin Baby 81mg GT SCH (08:54)
[2019-10-25] MEDS: levETIRAcetam 500mg/5ml Liquid GT SCH ×2 (08:55→20:11)
[2019-10-25] MEDS: Levemir Flexpen SUBQ SCH ×2 (08:56→17:38)
[2019-10-25] MEDS: Heparin 5000 units/ml inj SUBQ SCH ×2 (08:56→20:17)
--- NOTE | 2019-10-25 08:56 | Pulmonology Progress Note ---
Assessment/Plan Assessment/Plan 1. Urinary tract infection. 2. mucous plugging and retained secretions; 3. Renal failure. 4. Hypertension. 5. Congestive heart failure. 6. Seizure History 7. Diabetes 8. Hypernatremia 9. EDGAR 10. acute hypoxemic respiratory failure PLAN repeat ABG noted repeat imaging and monitor mobilize secretions suction PRN monitor in SHAY BIPAP as needed monitor fluid status meds noted oxygen as is respiratory care as is DNR ID follow up prognosis poor close followup for change; prognosis guarded impression, plan, and exam edited and reviewed in detail care discussed with RN Subjective ROS Limited/Unobtainable: Yes Allergies: Coded Allergies: No Known Allergies (Verified , 12/31/09) Subjective care noted events noted and discussed on NC per RT care confirmed DNR Objective Last 24 Hour Vital Signs Date Time Temp Pulse Resp B/P (MAP) Pulse Ox O2 Delivery O2 Flow Rate FiO2 10/25/19 08:00 97.5 102 20 118/60 (79) 100 10/25/19 07:45 105 10/25/19 07:27 101 21 100 Nasal Cannula 3.0 32 105 22 100 10/25/19 07:16 99 Nasal Cannula 3.0 32 10/25/19 04:00 4.0 10/25/19 04:00 98.9 92 20 122/58 (79) 99 10/25/19 04:00 88 10/25/19 00:00 93 10/25/19 00:00 4.0 10/25/19 00:00 98.0 91 20 131/57 (81) 98 10/24/19 21:00 Bi-pap 10/24/19 20:00 90 10/24/19 20:00 98.0 101 20 126/67 (86) 99 10/24/19 19:38 96 20 100 Nasal Cannula 4.0 36 93 20 100 10/24/19 19:38 100 Nasal Cannula 4.0 36 10/24/19 16:00 4.0 10/24/19 16:00 98.2 73 20 139/67 (91) 100 10/24/19 16:00 96 10/24/19 15:39 93 20 100 Nasal Cannula 4.0 36 95 20 100 10/24/19 12:00 82 10/24/19 12:00 98.2 88 20 143/60 (87) 99 10/24/19 12:00 4.0 10/24/19 11:39 85 20 99 Venturi Mask 8.0 40 86 20 99 10/24/19 09:00 Bi-pap Intake and Output 10/24/19 10/25/19 19:00 07:00 Intake Total 1360.0 ml 735.0 ml Output Total 200 ml 250 ml Balance 1160.0 ml 485.0 ml Free Water 200 ml 150 ml IV Total 860.0 ml 335.0 ml Tube Feeding 300 ml 250 ml Output Urine Total 200 ml 200 ml Gastric Drainage Total 50 ml # Voids 2 # Bowel Movements 2 Objective WDWN on nonrebreather mask reduced breath sounds bilaterally with some rhonchi [id number] without MRG NABS nontender no HSM no CC minimal edema nonfocal reduced LOC reviewed and edited Microbiology Date/Time Source Procedure Growth Status 10/23/19 10:17 Blood Blood Culture - Preliminary NO GROWTH AFTER 24 HOURS Resulted 10/23/19 21:44 Sputum Gram Stain - Final Resulted 10/23/19 21:44 Sputum Culture - Preliminary Staphylococcus Aureus Resulted 10/23/19 21:44 Urine,Clean Catch Urine Culture - Preliminary NO GROWTH AFTER 24 HOURS Resulted Laboratory Tests 10/25/19 03:50: White Blood Count 15.0H, Red Blood Count 3.14L, Hemoglobin 8.9L, Hematocrit 28.0L, Mean Corpuscular Volume 89, Mean Corpuscular Hemoglobin 28.3, Mean Corpuscular Hemoglobin Concent 31.7L, Red Cell Distribution Width 15.9H, Platelet Count 244, Mean Platelet Volume 6.4L, Neutrophils (%) (Auto) 78.0H, Lymphocytes (%) (Auto) 11.1L, Monocytes (%) (Auto) 8.0, Eosinophils (%) (Auto) 2.6, Basophils (%) (Auto) 0.3, Sodium Level 152H, Potassium Level 3.9, Chloride Level 110H, Carbon Dioxide Level 36H, Anion Gap 6, Blood Urea Nitrogen 31H, Creatinine 2.3H, Estimat Glomerular Filtration Rate 24.7, Glucose Level 126#H, Calcium Level 9.7, Magnesium Level 2.1, Total Bilirubin 0.4, Aspartate Amino Transf (AST/SGOT) 10L, Alanine Aminotransferase (ALT/SGPT) 11L, Alkaline Phosphatase 87, Pro-B-Type Natriuretic Peptide 3558H, Total Protein 7.4, Albumin 2.3L, Globulin 5.1, Albumin/Globulin Ratio 0.5L Current Medications Medications (Trade) Dose Ordered Sig/Aaron Route PRN Reason Start Time Stop Time Status Last Admin Dose Admin Albuterol/ Ipratropium (Albuterol/ Ipratropium) 3 ml QIDRT HHN 10/21/19 07:00 10/26/19 06:59 10/25/19 07:17 Aspirin (ASA) 81 mg DAILY GT 10/19/19 09:00 11/14/19 08:59 10/24/19 09:15 Atropine Sulfate (Atropine Opth Jami) 1 drop Q8HR SL 10/18/19 22:00 11/16/19 09:59 10/25/19 05:37 Clonidine HCl (Catapres Tab) 0.1 mg Q6H PRN GT SBP>160 10/18/19 21:08 11/17/19 21:07 Dextrose (Dextrose 50%) 25 ml Q30M PRN IV Hypoglycemia 10/21/19 14:45 11/20/19 14:44 Dextrose (Dextrose 50%) 50 ml Q30M PRN IV Hypoglycemia 10/21/19 14:45 11/20/19 14:44 Gabapentin (Neurontin) 100 mg BID@0900,2100 GT 10/18/19 22:00 11/17/19 21:59 10/24/19 20:08 Glycopyrrolate (Robinul) 0.2 mg Q8HR IV 10/18/19 22:00 11/16/19 13:59 10/25/19 05:38 Heparin Sodium (Porcine) (Heparin 5000 units/ml) 5,000 units EVERY 12 HOURS SUBQ 10/18/19 22:00 11/17/19 21:59 10/24/19 20:14 Insulin Aspart (NovoLOG) Q6HR SUBQ 10/24/19 00:00 11/20/19 16:29 10/24/19 23:41 Insulin Detemir (Levemir) 5 units BID SUBQ 10/24/19 10:00 11/23/19 09:59 10/24/19 17:25 Lactulose (Cephulac) 20 gm DAILYPRN PRN GT Constipation 10/18/19 21:09 11/17/19 21:08 Lansoprazole (Prevacid) 30 mg DAILY GT 10/19/19 09:00 11/14/19 08:59 10/24/19 09:15 Levetiracetam (Keppra) 1,000 mg BID@0900,2100 GT 10/18/19 22:00 11/17/19 21:59 10/24/19 20:08 Levothyroxine Sodium (Synthroid) 75 mcg DAILY@0630 GT 10/19/19 06:30 11/15/19 06:29 10/25/19 05:38 Magnesium Hydroxide (Mom) 30 ml DAILYPRN PRN GT Constipation 10/18/19 21:10 11/17/19 21:09 Metoclopramide HCl (Reglan) 2.5 mg Q8HR IVP 10/18/19 22:00 11/17/19 21:59 10/25/19 05:38 Piperacillin Sod/ Tazobactam Sod 3.375 gm/Sodium Chloride 110 ml @ 27.5 mls/hr EVERY 8 HOURS IVPB 10/24/19 14:00 10/29/19 13:59 10/25/19 05:39 Polyethylene Glycol (Miralax) 17 gm BEDTIME GT 10/18/19 22:00 11/17/19 21:59 10/24/19 20:08 Potassium Chloride 20 meq/ Sodium Chloride 1,010 ml @ 100 mls/hr Q10H6M IV 10/25/19 22:30 11/24/19 22:29 Torey Douglass MD Oct 25, 2019 08:56
--- NOTE | 2019-10-25 10:30 | NUR ---
NURSE NOTES: RT wean off oxygen from 3L to 2L NC and saturation is 98%. The patient is tolerating well. The patient is stable without acute distress or shortness of breath. Will continue plan of care.
--- NOTE | 2019-10-25 10:53 | Infectious Diseases Prog Note ---
Assessment/Plan Assessment/Plan antibiotics : zosyn A 1. pseudomonas UTI s/p rx 2. renal failure 3. hypertension 4. CHF 5. aspiration pneumonia with staph aureus 6. leucocytosis improving P 1. d/c zosyn 2. start linezolid 3. will follow up cultures Subjective ROS Limited/Unobtainable: Yes Allergies: Coded Allergies: No Known Allergies (Verified , 12/31/09) Objective Vital Signs Last 24 Hour Vital Signs Date Time Temp Pulse Resp B/P (MAP) Pulse Ox O2 Delivery O2 Flow Rate FiO2 10/25/19 08:00 97.5 102 20 118/60 (79) 100 10/25/19 08:00 3.0 10/25/19 07:45 105 10/25/19 07:27 101 21 100 Nasal Cannula 3.0 32 105 22 100 10/25/19 07:16 99 Nasal Cannula 3.0 32 10/25/19 04:00 4.0 10/25/19 04:00 98.9 92 20 122/58 (79) 99 10/25/19 04:00 88 10/25/19 00:00 93 10/25/19 00:00 4.0 10/25/19 00:00 98.0 91 20 131/57 (81) 98 10/24/19 21:00 Bi-pap 10/24/19 20:00 90 10/24/19 20:00 98.0 101 20 126/67 (86) 99 10/24/19 19:38 96 20 100 Nasal Cannula 4.0 36 93 20 100 10/24/19 19:38 100 Nasal Cannula 4.0 36 10/24/19 16:00 4.0 10/24/19 16:00 98.2 73 20 139/67 (91) 100 10/24/19 16:00 96 10/24/19 15:39 93 20 100 Nasal Cannula 4.0 36 95 20 100 10/24/19 12:00 82 10/24/19 12:00 98.2 88 20 143/60 (87) 99 10/24/19 12:00 4.0 10/24/19 11:39 85 20 99 Venturi Mask 8.0 40 86 20 99 Height (Feet): 5 Height (Inches): 5.00 Weight (Pounds): 144 Respiratory/Chest: lungs clear Cardiovascular: normal rate, regular rhythm, no gallop/murmur Abdomen: soft, non tender, other - GT Extremities: no edema Microbiology Date/Time Source Procedure Growth Status 10/23/19 10:17 Blood Blood Culture - Preliminary NO GROWTH AFTER 24 HOURS Resulted 10/23/19 21:44 Sputum Gram Stain - Final Resulted 10/23/19 21:44 Sputum Culture - Preliminary Staphylococcus Aureus Resulted 10/23/19 21:44 Urine,Clean Catch Urine Culture - Preliminary NO GROWTH AFTER 24 HOURS Resulted Laboratory Tests Test 10/25/19 03:50 White Blood Count 15.0 K/UL (4.8-10.8) H Red Blood Count 3.14 M/UL (4.20-5.40) L Hemoglobin 8.9 G/DL (12.0-16.0) L Hematocrit 28.0 % (37.0-47.0) L Mean Corpuscular Volume 89 FL (80-99) Mean Corpuscular Hemoglobin 28.3 PG (27.0-31.0) Mean Corpuscular Hemoglobin Concent 31.7 G/DL (32.0-36.0) L Red Cell Distribution Width 15.9 % (11.6-14.8) H Platelet Count 244 K/UL (150-450) Mean Platelet Volume 6.4 FL (6.5-10.1) L Neutrophils (%) (Auto) 78.0 % (45.0-75.0) H Lymphocytes (%) (Auto) 11.1 % (20.0-45.0) L Monocytes (%) (Auto) 8.0 % (1.0-10.0) Eosinophils (%) (Auto) 2.6 % (0.0-3.0) Basophils (%) (Auto) 0.3 % (0.0-2.0) Sodium Level 152 MMOL/L (136-145) H Potassium Level 3.9 MMOL/L (3.5-5.1) Chloride Level 110 MMOL/L (98-107) H Carbon Dioxide Level 36 MMOL/L (21-32) H Anion Gap 6 mmol/L (5-15) Blood Urea Nitrogen 31 mg/dL (7-18) H Creatinine 2.3 MG/DL (0.55-1.30) H Estimat Glomerular Filtration Rate 24.7 mL/min (>60) Glucose Level 126 MG/DL (74-106) #H Calcium Level 9.7 MG/DL (8.5-10.1) Magnesium Level 2.1 MG/DL (1.8-2.4) Total Bilirubin 0.4 MG/DL (0.2-1.0) Aspartate Amino Transf (AST/SGOT) 10 U/L (15-37) L Alanine Aminotransferase (ALT/SGPT) 11 U/L (12-78) L Alkaline Phosphatase 87 U/L (46-116) Pro-B-Type Natriuretic Peptide 3558 pg/mL (0-125) H Total Protein 7.4 G/DL (6.4-8.2) Albumin 2.3 G/DL (3.4-5.0) L Globulin 5.1 g/dL Albumin/Globulin Ratio 0.5 (1.0-2.7) L Current Medications Medications (Trade) Dose Ordered Sig/Aaron Route PRN Reason Start Time Stop Time Status Last Admin Dose Admin Albuterol/ Ipratropium (Albuterol/ Ipratropium) 3 ml QIDRT HHN 10/21/19 07:00 10/26/19 06:59 10/25/19 10:37 Aspirin (ASA) 81 mg DAILY GT 10/19/19 09:00 11/14/19 08:59 10/25/19 08:54 Atropine Sulfate (Atropine Opth Jami) 1 drop Q8HR SL 10/18/19 22:00 11/16/19 09:59 10/25/19 05:37 Clonidine HCl (Catapres Tab) 0.1 mg Q6H PRN GT SBP>160 10/18/19 21:08 11/17/19 21:07 Dextrose (Dextrose 50%) 25 ml Q30M PRN IV Hypoglycemia 10/21/19 14:45 11/20/19 14:44 Dextrose (Dextrose 50%) 50 ml Q30M PRN IV Hypoglycemia 10/21/19 14:45 11/20/19 14:44 Gabapentin (Neurontin) 100 mg BID@0900,2100 GT 10/18/19 22:00 11/17/19 21:59 10/25/19 08:55 Glycopyrrolate (Robinul) 0.2 mg Q8HR IV 10/18/19 22:00 11/16/19 13:59 10/25/19 05:38 Heparin Sodium (Porcine) (Heparin 5000 units/ml) 5,000 units EVERY 12 HOURS SUBQ 10/18/19 22:00 11/17/19 21:59 10/25/19 08:56 Insulin Aspart (NovoLOG) Q6HR SUBQ 10/24/19 00:00 11/20/19 16:29 10/24/19 23:41 Insulin Detemir (Levemir) 5 units BID SUBQ 10/24/19 10:00 11/23/19 09:59 10/25/19 08:56 Lactulose (Cephulac) 20 gm DAILYPRN PRN GT Constipation 10/18/19 21:09 11/17/19 21:08 Lansoprazole (Prevacid) 30 mg DAILY GT 10/19/19 09:00 11/14/19 08:59 10/25/19 08:55 Levetiracetam (Keppra) 1,000 mg BID@0900,2100 GT 10/18/19 22:00 11/17/19 21:59 10/25/19 08:55 Levothyroxine Sodium (Synthroid) 75 mcg DAILY@0630 GT 10/19/19 06:30 11/15/19 06:29 10/25/19 05:38 Magnesium Hydroxide (Mom) 30 ml DAILYPRN PRN GT Constipation 10/18/19 21:10 11/17/19 21:09 Metoclopramide HCl (Reglan) 2.5 mg Q8HR IVP 10/18/19 22:00 11/17/19 21:59 10/25/19 05:38 Piperacillin Sod/ Tazobactam Sod 3.375 gm/Sodium Chloride 110 ml @ 27.5 mls/hr EVERY 8 HOURS IVPB 10/24/19 14:00 10/29/19 13:59 10/25/19 05:39 Polyethylene Glycol (Miralax) 17 gm BEDTIME GT 10/18/19 22:00 11/17/19 21:59 10/24/19 20:08 Potassium Chloride 20 meq/ Sodium Chloride 1,010 ml @ 100 mls/hr Q10H6M IV 10/25/19 22:30 11/24/19 22:29 Tyrel rPieto MD Oct 25, 2019 10:53
[2019-10-25 12:00] VITALS: BP 133/74
--- NOTE | 2019-10-25 12:00 | NUR ---
NURSE NOTES: The patient is stable without acute distress or shortness of breath. G tube for intermittent suction, J tube for feeding per order. The patient is tolerating well for 2L NC. The patient had moderate amount of bowel movement. The patient is stable without acute distress or shortness of breath. Will continue plan of care.
--- NOTE | 2019-10-25 15:35 | NUR ---
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 97.5 HR 102 RR 20 B/P 118/60 NC 3L O2 SAT 98% WBC 15.0 NA 152 CO2 36 BUN 31 CR 2.3 BNP 3558 IS: IVF NS KCL @ 100ML/HR REGLAN IV ZYVOX ALB HHN STEP DOWN STATUS
[2019-10-25 16:00] VITALS: BP 153/84
--- NOTE | 2019-10-25 16:00 | NUR ---
NURSE NOTES: The patient is stable without acute distress or shortness of breath. The patient is tolerating 2L NC well. J tube feeding per order and minimal residual noted. Intermittent suction via G tube and still has greenish residual coming out. Will continue plan of care.
--- NOTE | 2019-10-25 18:00 | NUR ---
NURSE NOTES: The patient is stable without acute distress or shortness of breath. Will continue plan of care.
[2019-10-25] MEDS ORDERED: NS 275ml ONE (18:41)
[2019-10-25] MEDS ORDERED: 1/2 NS 1000ml IV ONE (18:41)
--- NOTE | 2019-10-25 19:20 | NUR ---
HAND-OFF: Report given to FELY Ramos. The patient is resting on the bed without acute distress or shortness of breath. The patient's bed in the lowest position, call light in reach, and fall, aspiration, and seizure precaution reinforced. IV site intact and patent and running IVF per order. J tube running tube feeding formula per order. G tube connected to low intermittent suction per order. Oxygen therapy per order. Endorsed plan of care.
--- NOTE | 2019-10-25 19:22 | NUR ---
NURSE NOTES: Received report from FELY Cisneros. Patient resting in bed, asleep. No signs of distress. On O2 at 2L via NC. Breathing even and unlabored. GT feeding running at desired rate, tolerating well. Safety precautions in place. HOB elevated. Bed locked and lowest position. Call light within reach. Will continue to monitor.
[2019-10-25 20:00] VITALS: BP 131/71
[2019-10-25] MEDS: Miralax 17gm pkt GT SCH (20:12)
--- NOTE | 2019-10-25 22:20 | General Progress Note ---
Assessment/Plan Status: stable Assessment/Plan: Assessment - DM - h/o gastroparesis and GT TF intolerance - s/p G-J conversion - tolerated J port fees - OBS - resp distress, presumed due to reflux of gastric contents - contracted Recommendations - Advance TF via j port - abx - pulm toilet - G tube to LIS to protect against aspiration Subjective Allergies: Coded Allergies: No Known Allergies (Verified , 12/31/09) Subjective above noted tolerating J feeds at 25 d/w RN - advised to increase to 50/hr Objective Last 24 Hour Vital Signs Date Time Temp Pulse Resp B/P (MAP) Pulse Ox O2 Delivery O2 Flow Rate FiO2 10/25/19 21:00 Nasal Cannula 2.0 10/25/19 20:00 2.0 10/25/19 20:00 98.9 100 24 131/71 (91) 100 10/25/19 19:25 100 10/25/19 18:22 98 Nasal Cannula 3.0 32 10/25/19 18:22 86 17 100 Nasal Cannula 2.0 28 79 18 98 10/25/19 16:00 Nasal Cannula 2.0 10/25/19 16:00 98.2 104 20 153/84 (107) 100 10/25/19 16:00 2.0 10/25/19 15:27 108 10/25/19 14:57 102 17 100 Nasal Cannula 2.0 28 107 16 100 10/25/19 12:00 Nasal Cannula 2.0 10/25/19 12:00 97.9 100 24 133/74 (93) 97 10/25/19 12:00 2.0 10/25/19 11:46 102 10/25/19 10:47 88 20 100 Nasal Cannula 3.0 32 86 21 100 10/25/19 09:00 Nasal Cannula 3.0 10/25/19 08:00 97.5 102 20 118/60 (79) 100 10/25/19 08:00 3.0 10/25/19 07:45 105 10/25/19 07:27 101 21 100 Nasal Cannula 3.0 32 105 22 100 10/25/19 07:16 99 Nasal Cannula 3.0 32 10/25/19 04:00 4.0 10/25/19 04:00 98.9 92 20 122/58 (79) 99 10/25/19 04:00 88 10/25/19 00:00 93 10/25/19 00:00 4.0 10/25/19 00:00 98.0 91 20 131/57 (81) 98 Intake and Output 10/24/19 10/25/19 19:00 07:00 Intake Total 1360.0 ml 760.0 ml Output Total 200 ml 250 ml Balance 1160.0 ml 510.0 ml Free Water 200 ml 150 ml IV Total 860.0 ml 335.0 ml Tube Feeding 300 ml 275 ml Output Urine Total 200 ml 200 ml Gastric Drainage Total 50 ml # Voids 2 # Bowel Movements 2 Laboratory Tests 10/25/19 03:50: White Blood Count 15.0H, Red Blood Count 3.14L, Hemoglobin 8.9L, Hematocrit 28.0L, Mean Corpuscular Volume 89, Mean Corpuscular Hemoglobin 28.3, Mean Corpuscular Hemoglobin Concent 31.7L, Red Cell Distribution Width 15.9H, Platelet Count 244, Mean Platelet Volume 6.4L, Neutrophils (%) (Auto) 78.0H, Lymphocytes (%) (Auto) 11.1L, Monocytes (%) (Auto) 8.0, Eosinophils (%) (Auto) 2.6, Basophils (%) (Auto) 0.3, Sodium Level 152H, Potassium Level 3.9, Chloride Level 110H, Carbon Dioxide Level 36H, Anion Gap 6, Blood Urea Nitrogen 31H, Creatinine 2.3H, Estimat Glomerular Filtration Rate 24.7, Glucose Level 126#H, Calcium Level 9.7, Magnesium Level 2.1, Total Bilirubin 0.4, Aspartate Amino Transf (AST/SGOT) 10L, Alanine Aminotransferase (ALT/SGPT) 11L, Alkaline Phosphatase 87, Pro-B-Type Natriuretic Peptide 3558H, Total Protein 7.4, Albumin 2.3L, Globulin 5.1, Albumin/Globulin Ratio 0.5L Height (Feet): 5 Height (Inches): 5.00 Weight (Pounds): 144 Objective confused bedbound, contracted coarse BS RR abd soft, (+) GJ tube ext contracted and stiff OBS Darrell Griffith MD Oct 25, 2019 22:20
[2019-10-26] VITALS: BP 127/57
[2019-10-26] MEDS: Potassium Chloride 20 MEQ in 1/2 NS 1000ml 1,000 ML IV SCH ×3 (00:07→22:15)
[2019-10-26] MEDS: NovoLOG Insulin Flexpen SUBQ SCH ×4 (00:19→17:25)
--- NOTE | 2019-10-26 03:00 | Progress Note ---
DATE: 10/25/2019 CARDIOLOGY PROGRESS NOTE SUBJECTIVE: The patient is tolerating feedings now, less congestion, afebrile, oxygen saturation adequate on 3 liters nasal cannula. OBJECTIVE: VITAL SIGNS: Blood pressure 122/58, pulse 102, respirations 20. LUNGS: Coarse breath sounds. Rhonchi. HEART: Regular rhythm and rate. Normal S1 and S2. ABDOMEN: Soft. GJ tube intact. EXTREMITIES: No edema. LABORATORY DATA: White count 15, hemoglobin 8.9. Potassium 3.9, sodium 152, bicarb 36, chloride 110, BUN 31, creatinine 2.3. Pro-natriuretic peptide 3553. Albumin 2.2. IMPRESSION: 1. Dehydration. 2. Hypernatremia. 3. Hyperchloremia. 4. Metabolic alkalosis. 5. Acute on chronic renal failure. 6. Acute on chronic diastolic congestive heart failure. 7. Aspiration pneumonia. 8. Pseudomonas urinary tract infection. 9. Staph aureus pulmonary infection. PLAN: 1. Continued antimicrobials per Infectious Disease senior treasury consultant. 2. Hypotonic IV fluids. 3. Aspiration precautions. 4. Respiratory hygiene. 5. Promotility agents. 6. DVT prophylaxis. 7. Titrate anti-failure and antihypertensive regimen based on clinical parameters. Kavon Peña M.D. DR: ANN-MARIE JOB#: [id number] CC:
[2019-10-26 04:00] VITALS: BP 119/52
[2019-10-26 05:41] LABS: BASOPHILS % (AUTO) 0.5 % (0.0-2.0); EOSINOPHILS % (AUTO) 3.8 % (0.0-3.0); HEMATOCRIT 28.6 % (37.0-47.0); HEMOGLOBIN 8.9 G/DL (12.0-16.0); LYMPHOCYTES % (AUTO) 14.2 % (20.0-45.0); MEAN CORPUSCULAR VOLUME 89 FL (80-99); MONOCYTES % (AUTO) 10.2 % (1.0-10.0); NEUTROPHILS % (AUTO) 71.2 % (45.0-75.0); PLATELET COUNT 263 K/UL (150-450); RED CELL DISTRIBUTION WIDTH 15.5 % (11.6-14.8); WHITE BLOOD COUNT 9.3 K/UL (4.8-10.8)
[2019-10-26] MEDS: Metoclopramide 10mg/2ml Inj IVP SCH ×3 (05:48→22:55)
[2019-10-26] MEDS: Glycopyrrolate 0.2mg/ml 1ml Vial IV SCH ×3 (05:48→22:55)
--- NOTE | 2019-10-26 06:00 | NUR ---
NURSE NOTES: Unable to perform weekly weights at this time. Bed scale is not working.
[2019-10-26 06:08] LABS: ANION GAP 7 mmol/L (5-15); BLOOD UREA NITROGEN 31 mg/dL (7-18); CALCIUM 9.6 MG/DL (8.5-10.1); CARBON DIOXIDE 32 MMOL/L (21-32); CHLORIDE 108 MMOL/L (98-107); CREATININE 2.1 MG/DL (0.55-1.30); POTASSIUM 4.7 MMOL/L (3.5-5.1); SODIUM 147 MMOL/L (136-145)
--- NOTE | 2019-10-26 07:10 | NUR ---
HAND-OFF: Report given to Latrice Martins Pt in stable condition.
--- NOTE | 2019-10-26 07:45 | Pulmonology Progress Note ---
Assessment/Plan Assessment/Plan Pulmonary Progress Note HPI: Patient is an 79-year-old woman with history of Diabetes, Renal failure, Seizures, admitted with cough, congestion and respiratory distress, noted to have Psudomonal UTI, basal atelectasis on CT chest PAST MEDICAL HISTORY: 1. History of diabetes. 2. Pneumonia. 3. Renal failure. 4. Congestive heart failure. 5. Hypertension 6. Hypothyroidism 7. Previous G tube ALLERGIES: No known drug allergies. Assessment/Plan 1. Urinary tract infection. 2. mucous plugging and retained secretions; 3. Renal failure. 4. Hypertension. 5. Congestive heart failure. 6. Seizure History 7. Diabetes 8. Hypernatremia 9. EDGAR 10. acute hypoxemic respiratory failure PLAN repeat imaging PRN mobilize secretions suction PRN monitor in SHAY BIPAP as needed monitor fluid status meds noted oxygen as is respiratory care as is DNR ID follow up prognosis poor close followup for change; prognosis guarded impression, plan, and exam edited and reviewed in detail care discussed with RN Subjective ROS Limited/Unobtainable: Yes Allergies: Coded Allergies: No Known Allergies (Verified , 12/31/09) Subjective care noted events noted and discussed on NC per RT care confirmed DNR Objective Vital Signs Noted Objective WDWN on nonrebreather mask reduced breath sounds bilaterally with some rhonchi [id number] without MRG NABS nontender no HSM no CC minimal edema nonfocal reduced LOC reviewed and edited Microbiology Date/Time Source Procedure Growth Status 10/23/19 10:17 Blood Blood Culture - Preliminary NO GROWTH AFTER 24 HOURS Resulted 10/23/19 21:44 Sputum Gram Stain - Final Resulted 10/23/19 21:44 Sputum Culture - Preliminary Staphylococcus Aureus Resulted 10/23/19 21:44 Urine,Clean Catch Urine Culture - Preliminary NO GROWTH AFTER 24 HOURS Resulted Laboratory Tests Noted Current Medications Medications (Trade) Dose Ordered Sig/Aaron Route PRN Reason Start Time Stop Time Status Last Admin Dose Admin Albuterol/ Ipratropium (Albuterol/ Ipratropium) 3 ml QIDRT HHN 10/21/19 07:00 10/26/19 06:59 10/25/19 07:17 Aspirin (ASA) 81 mg DAILY GT 10/19/19 09:00 11/14/19 08:59 10/24/19 09:15 Atropine Sulfate (Atropine Opth Jami) 1 drop Q8HR SL 10/18/19 22:00 11/16/19 09:59 10/25/19 05:37 Clonidine HCl (Catapres Tab) 0.1 mg Q6H PRN GT SBP>160 10/18/19 21:08 11/17/19 21:07 Dextrose (Dextrose 50%) 25 ml Q30M PRN IV Hypoglycemia 10/21/19 14:45 11/20/19 14:44 Dextrose (Dextrose 50%) 50 ml Q30M PRN IV Hypoglycemia 10/21/19 14:45 11/20/19 14:44 Gabapentin (Neurontin) 100 mg BID@0900,2100 GT 10/18/19 22:00 11/17/19 21:59 10/24/19 20:08 Glycopyrrolate (Robinul) 0.2 mg Q8HR IV 10/18/19 22:00 11/16/19 13:59 10/25/19 05:38 Heparin Sodium (Porcine) (Heparin 5000 units/ml) 5,000 units EVERY 12 HOURS SUBQ 10/18/19 22:00 11/17/19 21:59 10/24/19 20:14 Insulin Aspart (NovoLOG) Q6HR SUBQ 10/24/19 00:00 11/20/19 16:29 10/24/19 23:41 Insulin Detemir (Levemir) 5 units BID SUBQ 10/24/19 10:00 11/23/19 09:59 10/24/19 17:25 Lactulose (Cephulac) 20 gm DAILYPRN PRN GT Constipation 10/18/19 21:09 11/17/19 21:08 Lansoprazole (Prevacid) 30 mg DAILY GT 10/19/19 09:00 11/14/19 08:59 10/24/19 09:15 Levetiracetam (Keppra) 1,000 mg BID@0900,2100 GT 10/18/19 22:00 11/17/19 21:59 10/24/19 20:08 Levothyroxine Sodium (Synthroid) 75 mcg DAILY@0630 GT 10/19/19 06:30 11/15/19 06:29 10/25/19 05:38 Magnesium Hydroxide (Mom) 30 ml DAILYPRN PRN GT Constipation 10/18/19 21:10 11/17/19 21:09 Metoclopramide HCl (Reglan) 2.5 mg Q8HR IVP 10/18/19 22:00 11/17/19 21:59 10/25/19 05:38 Piperacillin Sod/ Tazobactam Sod 3.375 gm/Sodium Chloride 110 ml @ 27.5 mls/hr EVERY 8 HOURS IVPB 10/24/19 14:00 10/29/19 13:59 10/25/19 05:39 Polyethylene Glycol (Miralax) 17 gm BEDTIME GT 10/18/19 22:00 11/17/19 21:59 10/24/19 20:08 Potassium Chloride 20 meq/ Sodium Chloride 1,010 ml @ 100 mls/hr Q10H6M IV 10/25/19 22:30 11/24/19 22:29 Subjective ROS Limited/Unobtainable: No Allergies: Coded Allergies: No Known Allergies (Verified , 12/31/09) Objective Last 24 Hour Vital Signs Date Time Temp Pulse Resp B/P (MAP) Pulse Ox O2 Delivery O2 Flow Rate FiO2 10/26/19 04:00 97.7 84 20 119/52 (74) 100 10/26/19 04:00 2.0 10/26/19 03:39 87 10/26/19 01:21 90 126/66 10/26/19 00:00 97.9 87 22 127/57 (80) 100 10/25/19 23:29 91 10/25/19 21:00 Nasal Cannula 2.0 10/25/19 20:00 2.0 10/25/19 20:00 98.9 100 24 131/71 (91) 100 10/25/19 19:25 100 10/25/19 18:22 98 Nasal Cannula 3.0 32 10/25/19 18:22 86 17 100 Nasal Cannula 2.0 28 79 18 98 10/25/19 16:00 Nasal Cannula 2.0 10/25/19 16:00 98.2 104 20 153/84 (107) 100 10/25/19 16:00 2.0 10/25/19 15:27 108 10/25/19 14:57 102 17 100 Nasal Cannula 2.0 28 107 16 100 10/25/19 12:00 Nasal Cannula 2.0 10/25/19 12:00 97.9 100 24 133/74 (93) 97 10/25/19 12:00 2.0 10/25/19 11:46 102 10/25/19 10:47 88 20 100 Nasal Cannula 3.0 32 86 21 100 10/25/19 09:00 Nasal Cannula 3.0 10/25/19 08:00 97.5 102 20 118/60 (79) 100 10/25/19 08:00 3.0 10/25/19 07:45 105 Intake and Output 10/25/19 10/26/19 19:00 07:00 Intake Total 450 ml 545 ml Output Total 1000 ml Balance -550 ml 545 ml Free Water 150 ml 150 ml Tube Feeding 300 ml 395 ml Output Urine Total 1000 ml # Voids 3 # Bowel Movements 2 3 Microbiology Date/Time Source Procedure Growth Status 10/23/19 10:17 Blood Blood Culture - Preliminary NO GROWTH AFTER 48 HOURS Resulted 10/23/19 21:44 Sputum Gram Stain - Final Resulted 10/23/19 21:44 Sputum Culture - Preliminary Staphylococcus Aureus Resulted 10/23/19 21:44 Urine,Clean Catch Urine Culture - Final NO GROWTH AFTER 48 HOURS Complete Laboratory Tests 10/26/19 03:45: White Blood Count 9.3, Red Blood Count 3.20L, Hemoglobin 8.9L, Hematocrit 28.6L , Mean Corpuscular Volume 89, Mean Corpuscular Hemoglobin 27.9, Mean Corpuscular Hemoglobin Concent 31.2L, Red Cell Distribution Width 15.5H, Platelet Count 263, Mean Platelet Volume 5.8L, Neutrophils (%) (Auto) 71.2, Lymphocytes (%) (Auto) 14.2L, Monocytes (%) (Auto) 10.2H, Eosinophils (%) (Auto ) 3.8H, Basophils (%) (Auto) 0.5, Sodium Level 147H, Potassium Level 4.7, Chloride Level 108H, Carbon Dioxide Level 32, Anion Gap 7, Blood Urea Nitrogen 31H, Creatinine 2.1H, Estimat Glomerular Filtration Rate 27.4, Glucose Level 178H, Calcium Level 9.6, Magnesium Level 2.2 Current Medications Medications (Trade) Dose Ordered Sig/Aaron Route PRN Reason Start Time Stop Time Status Last Admin Dose Admin Aspirin (ASA) 81 mg DAILY GT 10/19/19 09:00 11/14/19 08:59 2/18/20 08:54 Atropine Sulfate (Atropine Opth Jami) 1 drop Q8HR SL 10/18/19 22:00 11/16/19 09:59 10/26/19 05:47 Clonidine HCl (Catapres Tab) 0.1 mg Q6H PRN GT SBP>160 10/18/19 21:08 11/17/19 21:07 Dextrose (Dextrose 50%) 25 ml Q30M PRN IV Hypoglycemia 10/21/19 14:45 11/20/19 14:44 Dextrose (Dextrose 50%) 50 ml Q30M PRN IV Hypoglycemia 10/21/19 14:45 11/20/19 14:44 Gabapentin (Neurontin) 100 mg BID@0900,2100 GT 10/18/19 22:00 11/17/19 21:59 10/25/19 20:12 Glycopyrrolate (Robinul) 0.2 mg Q8HR IV 10/18/19 22:00 11/16/19 13:59 10/26/19 05:48 Heparin Sodium (Porcine) (Heparin 5000 units/ml) 5,000 units EVERY 12 HOURS SUBQ 10/18/19 22:00 11/17/19 21:59 10/25/19 20:17 Insulin Aspart (NovoLOG) Q6HR SUBQ 10/24/19 00:00 11/20/19 16:29 10/26/19 05:44 Insulin Detemir (Levemir) 5 units BID SUBQ 10/24/19 10:00 11/23/19 09:59 10/25/19 17:38 Lactulose (Cephulac) 20 gm DAILYPRN PRN GT Constipation 10/18/19 21:09 11/17/19 21:08 Lansoprazole (Prevacid) 30 mg DAILY GT 10/19/19 09:00 11/14/19 08:59 10/25/19 08:55 Levetiracetam (Keppra) 1,000 mg BID@0900,2100 GT 10/18/19 22:00 11/17/19 21:59 10/25/19 20:11 Levothyroxine Sodium (Synthroid) 75 mcg DAILY@0630 GT 10/19/19 06:30 11/15/19 06:29 10/26/19 05:47 Linezolid (Zyvox) 600 mg EVERY 12 HOURS ORAL 10/25/19 11:00 10/30/19 10:59 10/25/19 20:12 Magnesium Hydroxide (Mom) 30 ml DAILYPRN PRN GT Constipation 10/18/19 21:10 11/17/19 21:09 Metoclopramide HCl (Reglan) 2.5 mg Q8HR IVP 10/18/19 22:00 11/17/19 21:59 10/26/19 05:48 Metoprolol Tartrate (Lopressor) 25 mg Q12HR ORAL 10/26/19 00:30 11/25/19 00:29 10/26/19 01:21 Polyethylene Glycol (Miralax) 17 gm BEDTIME GT 10/18/19 22:00 11/17/19 21:59 10/25/19 20:12 Potassium Chloride 20 meq/ Sodium Chloride 1,010 ml @ 100 mls/hr Q10H6M IV 10/25/19 22:30 11/24/19 22:29 10/26/19 00:07 Kavon Seals MD Oct 26, 2019 07:45
[2019-10-26 08:00] VITALS: BP 133/69
--- NOTE | 2019-10-26 08:06 | NUR ---
NURSE NOTES: received pt in the bed, awake, nonverbal, vital signs stable, no co pain, no SOB, skin warm and dry to touch, no wound, JTube to feeding, GT to low interm suction and medication, o2 2L, o2 sat 100%, bed in low position, HOB elevated.
[2019-10-26] MEDS: Heparin 5000 units/ml inj SUBQ SCH ×2 (08:34→20:29)
[2019-10-26] MEDS: levETIRAcetam 500mg/5ml Liquid GT SCH ×2 (08:34→20:25)
[2019-10-26] MEDS: Levemir Flexpen SUBQ SCH ×2 (08:34→17:23)
[2019-10-26] MEDS: Aspirin Baby 81mg GT SCH (08:35)
--- NOTE | 2019-10-26 10:49 | Infectious Diseases Prog Note ---
Assessment/Plan Assessment/Plan antibiotics : linezolid 2.18.20 - A 1. pseudomonas UTI s/p rx 2. renal failure improving 3. hypertension 4. CHF 5. aspiration pneumonia with staph aureus 6. leucocytosis resolved P 1. continue linezolid 2. will follow up cultures Subjective ROS Limited/Unobtainable: Yes Allergies: Coded Allergies: No Known Allergies (Verified , 12/31/09) Objective Vital Signs Last 24 Hour Vital Signs Date Time Temp Pulse Resp B/P (MAP) Pulse Ox O2 Delivery O2 Flow Rate FiO2 10/26/19 08:35 95 133/69 10/26/19 08:00 Nasal Cannula 2.0 10/26/19 08:00 2.0 10/26/19 08:00 98.1 95 18 133/69 (90) 100 10/26/19 08:00 83 10/26/19 07:20 87 20 100 Nasal Cannula 2.0 28 10/26/19 07:19 100 Nasal Cannula 3.0 32 10/26/19 04:00 Nasal Cannula 2.0 10/26/19 04:00 97.7 84 20 119/52 (74) 100 10/26/19 04:00 2.0 10/26/19 03:39 87 10/26/19 01:21 90 126/66 10/26/19 00:00 Nasal Cannula 2.0 10/26/19 00:00 97.9 87 22 127/57 (80) 100 10/25/19 23:29 91 10/25/19 21:00 Nasal Cannula 2.0 10/25/19 20:00 2.0 10/25/19 20:00 98.9 100 24 131/71 (91) 100 10/25/19 19:25 100 10/25/19 18:22 98 Nasal Cannula 3.0 32 10/25/19 18:22 86 17 100 Nasal Cannula 2.0 28 79 18 98 10/25/19 16:00 Nasal Cannula 2.0 10/25/19 16:00 98.2 104 20 153/84 (107) 100 10/25/19 16:00 2.0 10/25/19 15:27 108 10/25/19 14:57 102 17 100 Nasal Cannula 2.0 28 107 16 100 10/25/19 12:00 Nasal Cannula 2.0 10/25/19 12:00 97.9 100 24 133/74 (93) 97 10/25/19 12:00 2.0 10/25/19 11:46 102 Height (Feet): 5 Height (Inches): 5.00 Weight (Pounds): 144 Respiratory/Chest: lungs clear Cardiovascular: normal rate, regular rhythm, no gallop/murmur Abdomen: soft, non tender, other - GT Extremities: no edema Microbiology Date/Time Source Procedure Growth Status 10/23/19 21:44 Sputum Gram Stain - Final Resulted 10/23/19 21:44 Sputum Culture - Preliminary Staphylococcus Aureus Resulted 10/23/19 21:44 Urine,Clean Catch Urine Culture - Final NO GROWTH AFTER 48 HOURS Complete Laboratory Tests Test 10/26/19 03:45 White Blood Count 9.3 K/UL (4.8-10.8) Red Blood Count 3.20 M/UL (4.20-5.40) L Hemoglobin 8.9 G/DL (12.0-16.0) L Hematocrit 28.6 % (37.0-47.0) L Mean Corpuscular Volume 89 FL (80-99) Mean Corpuscular Hemoglobin 27.9 PG (27.0-31.0) Mean Corpuscular Hemoglobin Concent 31.2 G/DL (32.0-36.0) L Red Cell Distribution Width 15.5 % (11.6-14.8) H Platelet Count 263 K/UL (150-450) Mean Platelet Volume 5.8 FL (6.5-10.1) L Neutrophils (%) (Auto) 71.2 % (45.0-75.0) Lymphocytes (%) (Auto) 14.2 % (20.0-45.0) L Monocytes (%) (Auto) 10.2 % (1.0-10.0) H Eosinophils (%) (Auto) 3.8 % (0.0-3.0) H Basophils (%) (Auto) 0.5 % (0.0-2.0) Sodium Level 147 MMOL/L (136-145) H Potassium Level 4.7 MMOL/L (3.5-5.1) Chloride Level 108 MMOL/L (98-107) H Carbon Dioxide Level 32 MMOL/L (21-32) Anion Gap 7 mmol/L (5-15) Blood Urea Nitrogen 31 mg/dL (7-18) H Creatinine 2.1 MG/DL (0.55-1.30) H Estimat Glomerular Filtration Rate 27.4 mL/min (>60) Glucose Level 178 MG/DL (74-106) H Calcium Level 9.6 MG/DL (8.5-10.1) Magnesium Level 2.2 MG/DL (1.8-2.4) Current Medications Medications (Trade) Dose Ordered Sig/Aaron Route PRN Reason Start Time Stop Time Status Last Admin Dose Admin Aspirin (ASA) 81 mg DAILY GT 10/19/19 09:00 11/14/19 08:59 10/26/19 08:35 Atropine Sulfate (Atropine Opth Jami) 1 drop Q8HR SL 10/18/19 22:00 11/16/19 09:59 10/26/19 05:47 Clonidine HCl (Catapres Tab) 0.1 mg Q6H PRN GT SBP>160 10/18/19 21:08 11/17/19 21:07 Dextrose (Dextrose 50%) 25 ml Q30M PRN IV Hypoglycemia 10/21/19 14:45 11/20/19 14:44 Dextrose (Dextrose 50%) 50 ml Q30M PRN IV Hypoglycemia 10/21/19 14:45 11/20/19 14:44 Gabapentin (Neurontin) 100 mg BID@0900,2100 GT 10/18/19 22:00 11/17/19 21:59 10/26/19 08:34 Glycopyrrolate (Robinul) 0.2 mg Q8HR IV 10/18/19 22:00 11/16/19 13:59 10/26/19 05:48 Heparin Sodium (Porcine) (Heparin 5000 units/ml) 5,000 units EVERY 12 HOURS SUBQ 10/18/19 22:00 11/17/19 21:59 10/26/19 08:34 Insulin Aspart (NovoLOG) Q6HR SUBQ 10/24/19 00:00 11/20/19 16:29 10/26/19 05:44 Insulin Detemir (Levemir) 5 units BID SUBQ 10/24/19 10:00 11/23/19 09:59 10/26/19 08:34 Lactulose (Cephulac) 20 gm DAILYPRN PRN GT Constipation 10/18/19 21:09 11/17/19 21:08 Lansoprazole (Prevacid) 30 mg DAILY GT 10/19/19 09:00 11/14/19 08:59 10/26/19 08:35 Levetiracetam (Keppra) 1,000 mg BID@0900,2100 GT 10/18/19 22:00 11/17/19 21:59 10/26/19 08:34 Levothyroxine Sodium (Synthroid) 75 mcg DAILY@0630 GT 10/19/19 06:30 11/15/19 06:29 10/26/19 05:47 Linezolid (Zyvox) 600 mg EVERY 12 HOURS ORAL 10/25/19 11:00 10/30/19 10:59 10/26/19 08:34 Magnesium Hydroxide (Mom) 30 ml DAILYPRN PRN GT Constipation 10/18/19 21:10 11/17/19 21:09 Metoclopramide HCl (Reglan) 2.5 mg Q8HR IVP 10/18/19 22:00 11/17/19 21:59 10/26/19 05:48 Metoprolol Tartrate (Lopressor) 25 mg Q12HR ORAL 10/26/19 00:30 11/25/19 00:29 10/26/19 08:35 Polyethylene Glycol (Miralax) 17 gm BEDTIME GT 10/18/19 22:00 11/17/19 21:59 10/25/19 20:12 Potassium Chloride 20 meq/ Sodium Chloride 1,010 ml @ 100 mls/hr Q10H6M IV 10/25/19 22:30 11/24/19 22:29 10/26/19 00:07 Tyrel Prieto MD Oct 26, 2019 10:49
[2019-10-26 12:01] VITALS: BP 132/68
--- NOTE | 2019-10-26 12:09 | NUR ---
NURSE NOTES: vital signs stable, tolerate feeding well, repositioned, continue monitoring.
--- NOTE | 2019-10-26 12:50 | NUR ---
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 99.0 HR 97 RR 20 B/P 132/68 2L NC O2 SAT @98% NA 147 BUN 31 CR. 2.1 IS: IVF NS KCL @ 100ML/HR HEPARIN SUBC LOPRESSOR JT STEP DOWN STATUS
[2019-10-26 16:00] VITALS: BP 125/57
--- NOTE | 2019-10-26 19:10 | NUR ---
NURSE NOTES: received report from Rupesh GEIGER. Patient resting in bed. No signs of distress. Will continue to monitor
--- NOTE | 2019-10-26 19:14 | NUR ---
HAND-OFF: Report given to DANO GEIGER, NO DISTRESS NOTED..
[2019-10-26 20:00] VITALS: BP 128/78
--- NOTE | 2019-10-26 20:12 | General Progress Note ---
Assessment/Plan Status: stable Assessment/Plan: Assessment - DM - h/o gastroparesis and GT TF intolerance - s/p G-J conversion - tolerated J port fees - OBS - resp distress, presumed due to reflux of gastric contents - contracted Recommendations - TF via j port - abx - pulm toilet - G tube to LIS to protect against aspiration Subjective Allergies: Coded Allergies: No Known Allergies (Verified , 12/31/09) Subjective above noted tolerating J feeds Objective Last 24 Hour Vital Signs Date Time Temp Pulse Resp B/P (MAP) Pulse Ox O2 Delivery O2 Flow Rate FiO2 10/26/19 16:00 Nasal Cannula 2.0 10/26/19 16:00 2.0 10/26/19 16:00 99.0 84 20 125/57 (79) 100 10/26/19 15:31 85 10/26/19 12:01 99.0 97 20 132/68 (89) 100 10/26/19 12:00 2.0 10/26/19 12:00 Nasal Cannula 2.0 10/26/19 11:27 97 10/26/19 08:35 95 133/69 10/26/19 08:00 Nasal Cannula 2.0 10/26/19 08:00 2.0 10/26/19 08:00 98.1 95 18 133/69 (90) 100 10/26/19 08:00 83 10/26/19 07:20 87 20 100 Nasal Cannula 2.0 28 10/26/19 07:19 100 Nasal Cannula 3.0 32 10/26/19 04:00 Nasal Cannula 2.0 10/26/19 04:00 97.7 84 20 119/52 (74) 100 10/26/19 04:00 2.0 10/26/19 03:39 87 10/26/19 01:21 90 126/66 10/26/19 00:00 Nasal Cannula 2.0 10/26/19 00:00 97.9 87 22 127/57 (80) 100 10/25/19 23:29 91 10/25/19 21:00 Nasal Cannula 2.0 Intake and Output 10/25/19 10/26/19 19:00 07:00 Intake Total 450 ml 640 ml Output Total 1000 ml 1100 ml Balance -550 ml -460 ml Free Water 150 ml 200 ml Tube Feeding 300 ml 440 ml Output Urine Total 1000 ml 400 ml Gastric Drainage Total 700 ml # Voids 3 # Bowel Movements 2 4 Laboratory Tests 10/26/19 03:45: White Blood Count 9.3, Red Blood Count 3.20L, Hemoglobin 8.9L, Hematocrit 28.6L , Mean Corpuscular Volume 89, Mean Corpuscular Hemoglobin 27.9, Mean Corpuscular Hemoglobin Concent 31.2L, Red Cell Distribution Width 15.5H, Platelet Count 263, Mean Platelet Volume 5.8L, Neutrophils (%) (Auto) 71.2, Lymphocytes (%) (Auto) 14.2L, Monocytes (%) (Auto) 10.2H, Eosinophils (%) (Auto ) 3.8H, Basophils (%) (Auto) 0.5, Sodium Level 147H, Potassium Level 4.7, Chloride Level 108H, Carbon Dioxide Level 32, Anion Gap 7, Blood Urea Nitrogen 31H, Creatinine 2.1H, Estimat Glomerular Filtration Rate 27.4, Glucose Level 178H, Calcium Level 9.6, Magnesium Level 2.2 Height (Feet): 5 Height (Inches): 5.00 Weight (Pounds): 144 Objective confused bedbound, contracted coarse BS RR abd soft, (+) GJ tube ext contracted and stiff OBS Darrell Griffith MD Oct 26, 2019 20:12
[2019-10-26] MEDS: Miralax 17gm pkt GT SCH (20:25)
--- NOTE | 2019-10-26 22:30 | NUR ---
NURSE NOTES: Called and left message for Dr. Peña. Awaiting for call back
[2019-10-27] VITALS: BP 135/71
--- NOTE | 2019-10-27 02:30 | Progress Note ---
DATE: 10/26/2019 CARDIOLOGY PROGRESS NOTE SUBJECTIVE: The patient is still with cough and congestion. However, oxygen requirements have decreased considerably. She is now on a nasal cannula. The patient continues to have GJ tube output and is off nutrition feedings at this time. OBJECTIVE: VITAL SIGNS: Blood pressure 125/57, pulse 84, respirations 20, and temperature 99 degrees. LUNGS: Bilateral breath sounds. Scattered rhonchi. CARDIAC: Regular rhythm and rate. Normal S1 and S2. ABDOMEN: Soft. GJ tube intact and satisfaction. IMPRESSION: 1. Gastroparesis, status post G to J tube conversion. 2. Acute on chronic diastolic congestive heart failure. 3. Dehydration. 4. Hyponatremia. 5. Aspiration pneumonia. 6. Sepsis. 7. Type 2 diabetes mellitus. PLAN: 1. Continue suction. 2. Hold nutrition. 3. Respiratory hygiene. 4. Antimicrobials. 5. Skin care discussed with the patient's sister by telephone. Kavon Peña M.D. DR: STU JOB#: [id number] CC:
[2019-10-27 04:00] VITALS: BP 129/60
[2019-10-27] MEDS: Metoclopramide 10mg/2ml Inj IVP SCH ×3 (05:48→21:08)
[2019-10-27] MEDS: Glycopyrrolate 0.2mg/ml 1ml Vial IV SCH ×3 (05:49→21:08)
[2019-10-27] MEDS: NovoLOG Insulin Flexpen SUBQ SCH ×4 (05:50→17:07)
--- NOTE | 2019-10-27 07:10 | NUR ---
HAND-OFF: Report given to FELY Silva. Patient in stable condition.
--- NOTE | 2019-10-27 07:29 | NUR ---
NURSE NOTES: Received report from FELY Ramos. Patient is resting in bed, in stable condition. No s/sx of SOB, breathing is even and unlabored, pt is on 2LNC with SpO2 100%. Observed no presence of pain or discomfort at this time. Bed is in lowest position, brakes engaged. Call light is kept within easy reach. Will continue to monitor patient.
[2019-10-27 08:00] VITALS: BP 120/70
[2019-10-27] MEDS: Aspirin Baby 81mg GT SCH (09:02)
[2019-10-27] MEDS: levETIRAcetam 500mg/5ml Liquid GT SCH ×2 (09:02→21:06)
[2019-10-27] MEDS: Levemir Flexpen SUBQ SCH ×2 (09:05→17:08)
[2019-10-27] MEDS: Heparin 5000 units/ml inj SUBQ SCH ×2 (09:05→21:09)
--- NOTE | 2019-10-27 09:52 | Infectious Diseases Prog Note ---
Assessment/Plan Assessment/Plan A; 1. Urinary tract infection with Pseudomonas treated 2. Acute renal failure. 3. Hypertension. 4. Congestive heart failure. 5. 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 DNR status 8. MRSA pneumonia PLAN: 1. Continue Linezolid Subjective ROS Limited/Unobtainable: Yes Constitutional: Denies: fever Allergies: Coded Allergies: No Known Allergies (Verified , 12/31/09) Objective Vital Signs Last 24 Hour Vital Signs Date Time Temp Pulse Resp B/P (MAP) Pulse Ox O2 Delivery O2 Flow Rate FiO2 10/27/19 09:02 80 120/70 10/27/19 08:00 Nasal Cannula 2.0 10/27/19 08:00 99.2 80 22 120/70 (87) 98 10/27/19 08:00 2.0 10/27/19 07:12 99 Nasal Cannula 3.0 32 10/27/19 04:00 97.9 94 22 129/60 (83) 100 10/27/19 04:00 2.0 10/27/19 04:00 Nasal Cannula 2.0 10/27/19 03:44 82 10/27/19 00:00 Nasal Cannula 2.0 10/27/19 00:00 97.9 97 22 135/71 (92) 100 10/26/19 23:26 91 10/26/19 21:26 100 Nasal Cannula 3.0 32 10/26/19 20:26 80 128/78 10/26/19 20:00 2.0 10/26/19 20:00 Nasal Cannula 2.0 10/26/19 20:00 98.6 80 22 128/78 (95) 100 10/26/19 19:05 84 10/26/19 16:00 Nasal Cannula 2.0 10/26/19 16:00 2.0 10/26/19 16:00 99.0 84 20 125/57 (79) 100 10/26/19 15:31 85 10/26/19 12:01 99.0 97 20 132/68 (89) 100 10/26/19 12:00 2.0 10/26/19 12:00 Nasal Cannula 2.0 10/26/19 11:27 97 Height (Feet): 5 Height (Inches): 5.00 Weight (Pounds): 137 General Appearance: no acute distress HEENT: mucous membranes moist Respiratory/Chest: lungs clear, other - oxygen by nasal cannula Cardiovascular: normal rate Abdomen: soft, non tender, other - Gt feeding Extremities: no edema Neurologic/Psychiatric: aphasia, other - Opens eyes Current Medications Medications (Trade) Dose Ordered Sig/Aaron Route PRN Reason Start Time Stop Time Status Last Admin Dose Admin Aspirin (ASA) 81 mg DAILY GT 10/19/19 09:00 11/14/19 08:59 10/27/19 09:02 Atropine Sulfate (Atropine Opth Jami) 1 drop Q8HR SL 10/18/19 22:00 11/16/19 09:59 10/27/19 05:48 Clonidine HCl (Catapres Tab) 0.1 mg Q6H PRN GT SBP>160 10/18/19 21:08 11/17/19 21:07 Dextrose (Dextrose 50%) 25 ml Q30M PRN IV Hypoglycemia 10/21/19 14:45 11/20/19 14:44 Dextrose (Dextrose 50%) 50 ml Q30M PRN IV Hypoglycemia 10/21/19 14:45 11/20/19 14:44 Gabapentin (Neurontin) 100 mg BID@0900,2100 GT 10/18/19 22:00 11/17/19 21:59 10/27/19 09:02 Glycopyrrolate (Robinul) 0.2 mg Q8HR IV 10/18/19 22:00 11/16/19 13:59 10/27/19 05:49 Heparin Sodium (Porcine) (Heparin 5000 units/ml) 5,000 units EVERY 12 HOURS SUBQ 10/18/19 22:00 11/17/19 21:59 10/27/19 09:05 Insulin Aspart (NovoLOG) Q6HR SUBQ 10/24/19 00:00 11/20/19 16:29 10/27/19 05:50 Insulin Detemir (Levemir) 5 units BID SUBQ 10/24/19 10:00 11/23/19 09:59 10/27/19 09:05 Lactulose (Cephulac) 20 gm DAILYPRN PRN GT Constipation 10/18/19 21:09 11/17/19 21:08 Lansoprazole (Prevacid) 30 mg DAILY GT 10/19/19 09:00 11/14/19 08:59 10/27/19 09:02 Levetiracetam (Keppra) 1,000 mg BID@0900,2100 GT 10/18/19 22:00 11/17/19 21:59 10/27/19 09:02 Levothyroxine Sodium (Synthroid) 75 mcg DAILY@0630 GT 10/19/19 06:30 11/15/19 06:29 10/27/19 06:19 Linezolid (Zyvox) 600 mg EVERY 12 HOURS ORAL 10/25/19 11:00 10/30/19 10:59 10/27/19 09:02 Magnesium Hydroxide (Mom) 30 ml DAILYPRN PRN GT Constipation 10/18/19 21:10 11/17/19 21:09 Metoclopramide HCl (Reglan) 2.5 mg Q8HR IVP 10/18/19 22:00 11/17/19 21:59 10/27/19 05:48 Metoprolol Tartrate (Lopressor) 25 mg Q12HR ORAL 10/26/19 00:30 11/25/19 00:29 10/27/19 09:02 Polyethylene Glycol (Miralax) 17 gm BEDTIME GT 10/18/19 22:00 11/17/19 21:59 10/26/19 20:25 Potassium Chloride 20 meq/ Sodium Chloride 1,010 ml @ 100 mls/hr Q10H6M IV 10/25/19 22:30 11/24/19 22:29 10/26/19 22:15 Bay Richter MD Oct 27, 2019 09:52
--- NOTE | 2019-10-27 10:01 | General Progress Note ---
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 Objective Last 24 Hour Vital Signs Date Time Temp Pulse Resp B/P (MAP) Pulse Ox O2 Delivery O2 Flow Rate FiO2 10/27/19 09:02 80 120/70 10/27/19 08:00 Nasal Cannula 2.0 10/27/19 08:00 99.2 80 22 120/70 (87) 98 10/27/19 08:00 2.0 10/27/19 07:12 99 Nasal Cannula 3.0 32 10/27/19 04:00 97.9 94 22 129/60 (83) 100 10/27/19 04:00 2.0 10/27/19 04:00 Nasal Cannula 2.0 10/27/19 03:44 82 10/27/19 00:00 Nasal Cannula 2.0 10/27/19 00:00 97.9 97 22 135/71 (92) 100 10/26/19 23:26 91 10/26/19 21:26 100 Nasal Cannula 3.0 32 10/26/19 20:26 80 128/78 10/26/19 20:00 2.0 10/26/19 20:00 Nasal Cannula 2.0 10/26/19 20:00 98.6 80 22 128/78 (95) 100 10/26/19 19:05 84 10/26/19 16:00 Nasal Cannula 2.0 10/26/19 16:00 2.0 10/26/19 16:00 99.0 84 20 125/57 (79) 100 10/26/19 15:31 85 10/26/19 12:01 99.0 97 20 132/68 (89) 100 10/26/19 12:00 2.0 10/26/19 12:00 Nasal Cannula 2.0 10/26/19 11:27 97 Intake and Output 10/26/19 10/27/19 19:00 07:00 Intake Total 1915 ml 1300 ml Output Total 1500 ml 1350 ml Balance 415 ml -50 ml Free Water 150 ml 100 ml IV Total 1200 ml 700 ml Tube Feeding 565 ml 500 ml Output Urine Total 900 ml 800 ml Gastric Drainage Total 600 ml 550 ml # Bowel Movements 1 2 Height (Feet): 5 Height (Inches): 5.00 Weight (Pounds): 137 Objective confused bedbound, contracted coarse BS RR abd soft, (+) GJ tube ext contracted and stiff OBS Darrell Griffith MD Oct 27, 2019 10:01
[2019-10-27 12:00] VITALS: BP 151/76
--- NOTE | 2019-10-27 13:10 | NUR ---
RD ASSESSMENT & RECOMMENDATIONS SEE CARE ACTIVITY FOR COMPLETE ASSESSMENT DAILY ESTIMATED NEEDS: Needs based on DM, wound, CHF, bedbound 57.4kg abw 23-30 kcals/kg 6823-6527 total kcals 1.25-1.5 g protein/kg 72-86 g total protein 20-25 mL/kg 3053-8656 total fluid mLs NUTRITION DIAGNOSIS: 1) Altered nutrition related lab values r/t DM, CKD, cardiac hx as evidenced by pt w/ elev BUN (90 ->19), Cr (2.2 ->1.5), elev BG (200's, 300's) elev BNP (4825) 2) Swallowing difficulty r/t dysphagia as evidenced by pt is GT dep,now s/p GT-> Jt conversion. CURRENT TF: Glucerna 1.2 @50 x22 ENTERAL NUTRITION RECOMMENDATIONS: Glucerna 1.2 @ 60ml/hr x 22 hrs to provide 1320ml, 1584 kcal, 79g pro, 1063ml free H2O * As able advance by 5ml to goal rate of 60ml/hr x22 hrs to better meet est nutritional needs * Hold 1 hr before and after Synthroid med * HOB over 30 degrees/ water flush per MD Monitor lytes closely, need to change TF to Nepro ADDITIONAL RECOMMENDATIONS: 1) Monitor lytes closely, need for TF change (Pt on Nepro RAT CULTURIST, possible h/o electrolyte imbalance) 2) Wound care- Maik 1pkt BID via PEG once pt tolerates TF 3) Calibrate bed scale for accurate wt (Per SNF, GJ=510.8lbs) 4) Add NISS: BG elev, monitor need for long acting insulin -> now on levemir 5 units BID 5) Monitor for hypoglycemia while pt is NPO
--- NOTE | 2019-10-27 13:36 | NUR ---
*-* INSURANCE *-* ALL CLINICALS AND REVIEWS HAVE BEEN FAXED TO: YUMIKO MONTOYA:CHUCK REF# [id number] # [phone] FAX# [phone] REVIEWS/CLINICALS
[2019-10-27] MEDS: Potassium Chloride 20 MEQ in 1/2 NS 1000ml 1,000 ML IV SCH (14:26)
--- NOTE | 2019-10-27 14:39 | NUR ---
CASE MANAGEMENT: REVIEW 10/27/2019 SI:Urinary tract infection with Pseudomonas treated T 99.3 HR 85 RR 20 B/P 151/76 SATS 100% ON 2L/NC LABS: NONE TODAY IS: KCL +2O MEQ IV @ 100 mL/HR LINEZOLID PO Q12H LEVEMIR SUBQ BID GABAPENTIN GT BID KEPPRA GT BID ASA GT QD LOPRESSOR GT Q12H INSULIN ASPART SUBQ Q6H SDU PLAN OF CARE: - TF via j port @ 50 mL/HR - abx - pulm toilet - G tube to LIS to protect against aspiration - Elevate HOB
--- NOTE | 2019-10-27 14:43 | NUR ---
CASE MANAGEMENT: NOTE VERBAL REPORT AND UPDATE PROVIDED TO [facility] [phone]
--- NOTE | 2019-10-27 15:25 | NUR ---
NURSE NOTES:WOUND CARE FOLLOW-UP NOTES:Pt skin assessed with Primary nurse in attendance. Non-blanching erythema without induration Sacrum. Both hips and trochanteric areas without evidence of skin breakdown. Dark discoloration without erythema or induration noted to L trochanter.Both heels are boggy but blanchable. No new skin breakdown noted. All wound prevention protocols continued as ordered. Pt has an APM/Florina overlay mattress and is being positioned as per tolerance within protocols.
[2019-10-27 16:00] VITALS: BP 109/80
--- NOTE | 2019-10-27 17:11 | Pulmonology Progress Note ---
Assessment/Plan Assessment/Plan 1. Urinary tract infection. 2. mucous plugging and retained secretions; 3. Renal failure. 4. Hypertension. 5. Congestive heart failure. 6. Seizure History 7. Diabetes 8. Hypernatremia 9. EDGAR 10. acute hypoxemic respiratory failure PLAN repeat ABG noted repeat imaging but appears worse mobilize secretions suction PRN monitor in SHAY BIPAP as needed monitor fluid status meds noted DNR oxygen as is respiratory care as is DNR ID follow up prognosis poor close followup for change; prognosis guarded impression, plan, and exam edited and reviewed in detail care discussed with RN Subjective ROS Limited/Unobtainable: Yes Allergies: Coded Allergies: No Known Allergies (Verified , 12/31/09) Subjective care noted events noted and discussed on NC per RT care confirmed DNR reviewed changes Objective Last 24 Hour Vital Signs Date Time Temp Pulse Resp B/P (MAP) Pulse Ox O2 Delivery O2 Flow Rate FiO2 10/27/19 16:00 Nasal Cannula 2.0 10/27/19 16:00 2.0 10/27/19 16:00 99.9 89 20 109/80 (90) 100 10/27/19 12:00 Nasal Cannula 2.0 10/27/19 12:00 85 10/27/19 12:00 2.0 10/27/19 12:00 99.3 85 20 151/76 (101) 100 10/27/19 09:02 80 120/70 10/27/19 08:00 Nasal Cannula 2.0 10/27/19 08:00 99.2 80 22 120/70 (87) 98 10/27/19 08:00 88 10/27/19 08:00 2.0 10/27/19 07:12 99 Nasal Cannula 3.0 32 10/27/19 04:00 97.9 94 22 129/60 (83) 100 10/27/19 04:00 2.0 10/27/19 04:00 Nasal Cannula 2.0 10/27/19 03:44 82 10/27/19 00:00 Nasal Cannula 2.0 10/27/19 00:00 97.9 97 22 135/71 (92) 100 10/26/19 23:26 91 10/26/19 21:26 100 Nasal Cannula 3.0 32 10/26/19 20:26 80 128/78 10/26/19 20:00 2.0 10/26/19 20:00 Nasal Cannula 2.0 10/26/19 20:00 98.6 80 22 128/78 (95) 100 10/26/19 19:05 84 Intake and Output 10/26/19 10/27/19 19:00 07:00 Intake Total 1915 ml 1300 ml Output Total 1500 ml 1350 ml Balance 415 ml -50 ml Free Water 150 ml 100 ml IV Total 1200 ml 700 ml Tube Feeding 565 ml 500 ml Output Urine Total 900 ml 800 ml Gastric Drainage Total 600 ml 550 ml # Bowel Movements 1 2 Objective WDWN on nonrebreather mask reduced breath sounds bilaterally with some rhonchi [id number] without MRG NABS nontender no HSM no CC minimal edema nonfocal reduced LOC reviewed and edited Current Medications Medications (Trade) Dose Ordered Sig/Aaron Route PRN Reason Start Time Stop Time Status Last Admin Dose Admin Aspirin (ASA) 81 mg DAILY GT 10/19/19 09:00 11/14/19 08:59 10/27/19 09:02 Atropine Sulfate (Atropine Opth Jami) 1 drop Q8HR SL 10/18/19 22:00 11/16/19 09:59 10/27/19 13:08 Clonidine HCl (Catapres Tab) 0.1 mg Q6H PRN GT SBP>160 10/18/19 21:08 11/17/19 21:07 Dextrose (Dextrose 50%) 25 ml Q30M PRN IV Hypoglycemia 10/21/19 14:45 11/20/19 14:44 Dextrose (Dextrose 50%) 50 ml Q30M PRN IV Hypoglycemia 10/21/19 14:45 11/20/19 14:44 Gabapentin (Neurontin) 100 mg BID@0900,2100 GT 10/18/19 22:00 11/17/19 21:59 10/27/19 09:02 Glycopyrrolate (Robinul) 0.2 mg Q8HR IV 10/18/19 22:00 11/16/19 13:59 10/27/19 13:05 Heparin Sodium (Porcine) (Heparin 5000 units/ml) 5,000 units EVERY 12 HOURS SUBQ 10/18/19 22:00 11/17/19 21:59 10/27/19 09:05 Insulin Aspart (NovoLOG) Q6HR SUBQ 10/24/19 00:00 11/20/19 16:29 10/27/19 13:07 Insulin Detemir (Levemir) 5 units BID SUBQ 10/24/19 10:00 11/23/19 09:59 10/27/19 09:05 Lactulose (Cephulac) 20 gm DAILYPRN PRN GT Constipation 10/18/19 21:09 11/17/19 21:08 Lansoprazole (Prevacid) 30 mg DAILY GT 10/19/19 09:00 11/14/19 08:59 10/27/19 09:02 Levetiracetam (Keppra) 1,000 mg BID@0900,2100 GT 10/18/19 22:00 11/17/19 21:59 10/27/19 09:02 Levothyroxine Sodium (Synthroid) 75 mcg DAILY@0630 GT 10/19/19 06:30 11/15/19 06:29 10/27/19 06:19 Linezolid (Zyvox) 600 mg EVERY 12 HOURS ORAL 10/25/19 11:00 10/30/19 10:59 10/27/19 09:02 Magnesium Hydroxide (Mom) 30 ml DAILYPRN PRN GT Constipation 10/18/19 21:10 11/17/19 21:09 Metoclopramide HCl (Reglan) 2.5 mg Q8HR IVP 10/18/19 22:00 11/17/19 21:59 10/27/19 13:06 Metoprolol Tartrate (Lopressor) 25 mg Q12HR ORAL 10/26/19 00:30 11/25/19 00:29 10/27/19 09:02 Polyethylene Glycol (Miralax) 17 gm BEDTIME GT 10/18/19 22:00 11/17/19 21:59 10/26/19 20:25 Potassium Chloride 20 meq/ Sodium Chloride 1,010 ml @ 100 mls/hr Q10H6M IV 10/25/19 22:30 11/24/19 22:29 10/27/19 14:26 Torey Douglass MD Oct 27, 2019 17:11
--- NOTE | 2019-10-27 19:25 | NUR ---
NURSE NOTES: Received pt from FELY Silva. Pt is observed resting in bed, awake and responsive to name. Pt noted to be nonverbal with no signs or symptoms of pain noted upon physical assessment. Pt is currently on 2L NC with no s/sx of respiratory distress noted and an O2 saturation of 98%. Pt remains SR with a HR of 89 noted and no s/sx of cardiac distress noted. GJTube noted. Gtube currently running Glucerna 1.2 at 50mL/hr as prescribed and J tube remains connected to intermittent low suction. L hand 20G IV catheter noted which remains asymptomatic, intact and infusing 1/2NS +20meq kcl at 100mL/hr as prescribed. Skin alterations noted, diagnostics reviewed and family remains present at bedside. Aspiration precautions maintained. Pt remains resting in bed; bed remains in lowest position with safety wheels engaged, call light within reach, side rails up x3 and bed alarm activated.
--- NOTE | 2019-10-27 19:25 | NUR ---
HAND-OFF: Report given to FELY Adam.
[2019-10-27 20:00] VITALS: BP 151/73
--- NOTE | 2019-10-27 20:20 | NUR ---
NURSE NOTES: Left message regarding k level of 4.7 and fluids containing potassium; no lasix being given. Will await call back. Will continue to monitor.
[2019-10-27] MEDS: Miralax 17gm pkt GT SCH (21:00)
--- NOTE | 2019-10-27 21:30 | NUR ---
NURSE NOTES: Pt noted to have two liquid stools today; miralax held r/t side effect diarrhea. Will continue to monitor.
--- NOTE | 2019-10-27 23:45 | Progress Note ---
DATE: 10/27/2019 CARDIOLOGY PROGRESS NOTE SUBJECTIVE: The patient continues to have residuals gastroparesis. She is status post GJ-tube conversion. Monitored rhythm sinus with atrial ectopy. OBJECTIVE: VITAL SIGNS: Blood pressure 120/70, pulse 80, respiratory rate 22, temperature max 99.2, saturation 99% to 100% on 2 liters. LUNGS: Bilateral breath sounds. Few rhonchi. CARDIAC: Regular rhythm rate. Normal S1, S2 with a fourth heart sound. ABDOMEN: Slightly distended, but soft. GJ-tube intact. EXTREMITIES: There is no edema. LABORATORY DATA: No new laboratories today. IMPRESSION: 1. Recovering sepsis. 2. Gastroparesis. 3. Dehydration and hypernatremia. 4. Aspiration pneumonia. 5. Diabetes mellitus. 6. Acute on chronic diastolic congestive heart failure. 7. Hypertensive heart disease. PLAN: 1. IV fluid hydration. 2. Replace electrolytes. 3. Trend natriuretic peptide assay. 4. Insulin coverage by sliding scale. 5. Hold feedings per GI. 6. Await resolution of gastroparesis. 7. Respiratory hygiene. 8. Antimicrobials per Infectious Disease production consultant. 9. Discussed progress and further care plan with the patient's sister yesterday by telephone. Kavon Peña M.D. DR: GOVIND JOB#: [id number] CC:
[2019-10-28] VITALS: BP 139/74
[2019-10-28] MEDS: NovoLOG Insulin Flexpen SUBQ SCH ×5 (00:08→23:33)
--- NOTE | 2019-10-28 00:10 | NUR ---
NURSE NOTES: Pt provided with a bed bath, linen change, oral care and suctioning for excess secretions. Pt tolerated care well. Pt remains resting in bed; bed remains in lowest position with safety wheels engaged, bed alarm activated, call light within reach and side rails up x3. Aspiration, fall and seizure precautions continue to be observed. Will continue to monitor.
[2019-10-28] MEDS: Potassium Chloride 20 MEQ in 1/2 NS 1000ml 1,000 ML IV SCH ×2 (00:11→10:09)
[2019-10-28 04:00] VITALS: BP 130/77
[2019-10-28] MEDS: Metoclopramide 10mg/2ml Inj IVP SCH ×3 (05:44→22:10)
[2019-10-28] MEDS: Glycopyrrolate 0.2mg/ml 1ml Vial IV SCH ×3 (05:44→22:10)
--- NOTE | 2019-10-28 05:50 | NUR ---
NURSE NOTES: IV catheter noted to be occluded. Right hand 22g IV catheter placed on first attempt without incident. IV catheter remains intact, patent and asymptomatic. Dressing is clean, dry and intact. Pt tolerated care well. Pt remains resting in bed; bed remains in lowest position with safety wheels engaged, bed alarm activated, call light within reach and side rails up x3. Aspiration, fall and seizure precautions continue to be observed. Will continue to monitor.
--- NOTE | 2019-10-28 07:23 | NUR ---
NURSE NOTES: Dr Crowder and Dr Griffith at bedside to evaluate patient. BMP ordered for today. Will carry out orders.
--- NOTE | 2019-10-28 07:41 | NUR ---
HAND-OFF: Report given to Latrice Haddad RN. Pt remains stable at this time.
--- NOTE | 2019-10-28 07:45 | NUR ---
NURSE NOTES: Report received from Cira Adam RN.Pt resting in bed asleep noted no resp distress ,no signs of pain or discomfort afebrile SR on the monitor,pt with 2 types of feeding tube,JT is for feeding ,Glucerna 1.2 at 50 ml/hr ,no residual noted,the 2nd one is GTto LIS , with Q4 hours water flushes to both tubes.Pt has a Pure wick in placed draining yellow urine,skin warm and dry, IV Heplock to RT hand intact,SR up x2 HOB elevated bed lock in lowest position will continue with plans of care.
[2019-10-28 08:00] VITALS: BP 136/81
[2019-10-28] MEDS: levETIRAcetam 500mg/5ml Liquid GT SCH ×2 (09:59→21:03)
[2019-10-28] MEDS: Aspirin Baby 81mg GT SCH (09:59)
[2019-10-28] MEDS: Heparin 5000 units/ml inj SUBQ SCH ×2 (10:01→21:05)
--- NOTE | 2019-10-28 10:05 | Infectious Diseases Prog Note ---
Assessment/Plan Assessment/Plan antibiotics : linezolid 2.18.20 - A 1. pseudomonas UTI s/p rx 2. renal failure improving 3. hypertension 4. CHF 5. aspiration pneumonia with staph aureus 6. leucocytosis resolved P 1. continue linezolid 3 more days 2. will follow up cultures Subjective ROS Limited/Unobtainable: Yes Allergies: Coded Allergies: No Known Allergies (Verified , 12/31/09) Objective Vital Signs Last 24 Hour Vital Signs Date Time Temp Pulse Resp B/P (MAP) Pulse Ox O2 Delivery O2 Flow Rate FiO2 10/28/19 08:00 2.0 10/28/19 08:00 98.8 98 20 136/81 (99) 98 10/28/19 08:00 96 10/28/19 07:28 98 Nasal Cannula 2.0 28 10/28/19 04:00 2.0 10/28/19 04:00 98.2 83 24 130/77 (94) 99 10/28/19 04:00 Nasal Cannula 2.0 10/28/19 03:30 88 10/28/19 00:00 Nasal Cannula 2.0 10/28/19 00:00 98.0 89 24 139/74 (95) 99 10/27/19 23:31 87 10/27/19 21:53 99 Nasal Cannula 3.0 32 10/27/19 21:07 95 151/89 10/27/19 20:00 2.0 10/27/19 20:00 83 10/27/19 20:00 99.1 87 22 151/73 (99) 100 10/27/19 20:00 Nasal Cannula 2.0 10/27/19 18:30 Nasal Cannula 2.0 10/27/19 16:00 Nasal Cannula 2.0 10/27/19 16:00 78 10/27/19 16:00 2.0 10/27/19 16:00 99.9 89 20 109/80 (90) 100 10/27/19 12:00 Nasal Cannula 2.0 10/27/19 12:00 85 10/27/19 12:00 2.0 10/27/19 12:00 99.3 85 20 151/76 (101) 100 Height (Feet): 5 Height (Inches): 5.00 Weight (Pounds): 137 Respiratory/Chest: lungs clear Cardiovascular: normal rate, regular rhythm, no gallop/murmur Abdomen: soft, non tender, other - GT Extremities: no edema Laboratory Tests Test 10/28/19 08:45 Sodium Level Pending Potassium Level Pending Chloride Level Pending Carbon Dioxide Level Pending Blood Urea Nitrogen Pending Creatinine Pending Estimat Glomerular Filtration Rate Pending Glucose Level Pending Calcium Level Pending Current Medications Medications (Trade) Dose Ordered Sig/Aaron Route PRN Reason Start Time Stop Time Status Last Admin Dose Admin Aspirin (ASA) 81 mg DAILY GT 10/19/19 09:00 11/14/19 08:59 10/27/19 09:02 Atropine Sulfate (Atropine Opth Jami) 1 drop Q8HR SL 10/18/19 22:00 11/16/19 09:59 10/28/19 05:46 Clonidine HCl (Catapres Tab) 0.1 mg Q6H PRN GT SBP>160 10/18/19 21:08 11/17/19 21:07 Dextrose (Dextrose 50%) 25 ml Q30M PRN IV Hypoglycemia 10/21/19 14:45 11/20/19 14:44 Dextrose (Dextrose 50%) 50 ml Q30M PRN IV Hypoglycemia 10/21/19 14:45 11/20/19 14:44 Gabapentin (Neurontin) 100 mg BID@0900,2100 GT 10/18/19 22:00 11/17/19 21:59 10/27/19 21:07 Glycopyrrolate (Robinul) 0.2 mg Q8HR IV 10/18/19 22:00 11/16/19 13:59 10/28/19 05:44 Heparin Sodium (Porcine) (Heparin 5000 units/ml) 5,000 units EVERY 12 HOURS SUBQ 10/18/19 22:00 11/17/19 21:59 10/27/19 21:09 Insulin Aspart (NovoLOG) Q6HR SUBQ 10/24/19 00:00 11/20/19 16:29 10/28/19 05:42 Insulin Detemir (Levemir) 5 units BID SUBQ 10/24/19 10:00 11/23/19 09:59 10/27/19 17:08 Lactulose (Cephulac) 20 gm DAILYPRN PRN GT Constipation 10/18/19 21:09 3/12/20 21:08 Lansoprazole (Prevacid) 30 mg DAILY GT 10/19/19 09:00 11/14/19 08:59 10/27/19 09:02 Levetiracetam (Keppra) 1,000 mg BID@0900,2100 GT 10/18/19 22:00 11/17/19 21:59 10/27/19 21:06 Levothyroxine Sodium (Synthroid) 75 mcg DAILY@0630 GT 10/19/19 06:30 11/15/19 06:29 10/28/19 05:43 Linezolid (Zyvox) 600 mg EVERY 12 HOURS ORAL 10/25/19 11:00 10/30/19 10:59 10/27/19 21:07 Magnesium Hydroxide (Mom) 30 ml DAILYPRN PRN GT Constipation 10/18/19 21:10 11/17/19 21:09 Metoclopramide HCl (Reglan) 2.5 mg Q8HR IVP 10/18/19 22:00 11/17/19 21:59 10/28/19 05:44 Metoprolol Tartrate (Lopressor) 25 mg Q12HR ORAL 10/26/19 00:30 11/25/19 00:29 10/27/19 21:07 Polyethylene Glycol (Miralax) 17 gm BEDTIME GT 10/18/19 22:00 11/17/19 21:59 10/26/19 20:25 Potassium Chloride 20 meq/ Sodium Chloride 1,010 ml @ 100 mls/hr Q10H6M IV 10/25/19 22:30 11/24/19 22:29 10/28/19 00:11 Tyrel Prieto MD Oct 28, 2019 10:05
[2019-10-28] MEDS: Levemir Flexpen SUBQ SCH ×2 (10:07→18:16)
[2019-10-28 10:11] LABS: ANION GAP 6 mmol/L (5-15); BLOOD UREA NITROGEN 33 mg/dL (7-18); CALCIUM 9.4 MG/DL (8.5-10.1); CARBON DIOXIDE 31 MMOL/L (21-32); CHLORIDE 102 MMOL/L (98-107); CREATININE 1.9 MG/DL (0.55-1.30); SODIUM 138 MMOL/L (136-145)
[2019-10-28 10:26] LABS: POTASSIUM 6.4 MMOL/L (3.5-5.1)
--- NOTE | 2019-10-28 10:40 | NUR ---
NURSE NOTES: Dr Crowder notified re critical value K level 6.4,call returned with orders to Discontinue IVF and give Kayexelate 30 gm per GT,order done and will carry out.
[2019-10-28 12:00] VITALS: BP 131/95
[2019-10-28] MEDS ORDERED: Sodium Polystyrene Sulfonate 15gm Powder ORAL SCH (12:00)
[2019-10-28] MEDS ORDERED: Sodium Polystyrene Sulfon/Sorb 15gm/60ml Susp ORAL SCH (12:00)
--- NOTE | 2019-10-28 13:09 | NUR ---
CASE MANAGEMENT: REVIEW 10/28/2019 SI:Urinary tract infection with Pseudomonas treated T 99 HR 88 RR 20 B/P 131/95 SATS 97% ON 2L/NC LABS: K 6.4 BUN 33 CR 1.9 GLU 236 IS: KCL +2O MEQ IV @ 100 mL/HR LINEZOLID PO Q12H LEVEMIR SUBQ BID GABAPENTIN GT BID KEPPRA GT BID ASA GT QD LOPRESSOR GT Q12H INSULIN ASPART SUBQ Q6H SDU PLAN OF CARE: continue linezolid 3 more days - TF via j port @ 50 mL/HR - abx - pulm toilet - G tube to LIS to protect against aspiration - Elevate HOB
--- NOTE | 2019-10-28 13:13 | NUR ---
INSURANCE REVIEW FAXED TO SRI:CHUCK REF# [id number] # [phone] FAX# [phone] REVIEWS/CLINICALS
--- NOTE | 2019-10-28 15:00 | NUR ---
NURSE NOTES: Pt resting quietly in bed no resp distress presented,coughing on and off oral secretions suctioned PRN.
[2019-10-28 16:00] VITALS: BP 149/77
--- NOTE | 2019-10-28 16:01 | General Progress Note ---
Assessment/Plan Problem List: (1) Diabetes mellitus ICD Codes: E11.9 - Type 2 diabetes mellitus without complications SNOMED: 83808479 (2) Encephalopathy acute ICD Codes: G93.40 - Encephalopathy, unspecified SNOMED: 5110987 (3) Pneumonia ICD Codes: J18.9 - Pneumonia, unspecified organism SNOMED: 300650077 (4) HTN (hypertension) ICD Codes: I10 - Essential (primary) hypertension SNOMED: 14175116 (5) CHF (congestive heart failure) ICD Codes: I50.9 - Heart failure, unspecified SNOMED: 44474612 Qualifiers: Qualified Codes: I50.9 - Heart failure, unspecified (6) ARF (acute renal failure) ICD Codes: N17.9 - Acute kidney failure, unspecified SNOMED: 13484238 Qualifiers: Qualified Codes: N17.9 - Acute kidney failure, unspecified Status: stable Assessment/Plan: resp care/o2 suctioning monitor off bipap o2 monitor cxr iv abx reglan j port to LIS monitor wbc insulin coverage clinically improving Subjective ROS Limited/Unobtainable: No Constitutional: Reports: malaise, weakness HEENT: Reports: no symptoms Cardiovascular: Reports: no symptoms Respiratory: Reports: cough, shortness of breath Gastrointestinal/Abdominal: Reports: difficulty swallowing Genitourinary: Reports: no symptoms Neurologic/Psychiatric: Reports: pre-existing deficit, seizure Endocrine: Reports: no symptoms Hematologic/Lymphatic: Reports: anemia Allergies: Coded Allergies: No Known Allergies (Verified , 12/31/09) All Systems: reviewed and negative except above Subjective no events. off bipap, minimal congestion and sob. tolerating feeds thru J tube. 200-300 yellowish fluid output from G port of j tube. wbc trending down. on iv abx. poorly responsive at baseline Objective Last 24 Hour Vital Signs Date Time Temp Pulse Resp B/P (MAP) Pulse Ox O2 Delivery O2 Flow Rate FiO2 10/28/19 12:08 2.0 10/28/19 12:08 Nasal Cannula 2.0 10/28/19 12:00 82 10/28/19 12:00 99.0 88 20 131/95 (107) 97 10/28/19 09:59 96 136/81 10/28/19 08:00 2.0 10/28/19 08:00 98.8 98 20 136/81 (99) 98 2/21/20 08:00 Nasal Cannula 2.0 10/28/19 08:00 96 10/28/19 07:28 98 Nasal Cannula 2.0 28 10/28/19 04:00 2.0 10/28/19 04:00 98.2 83 24 130/77 (94) 99 10/28/19 04:00 Nasal Cannula 2.0 10/28/19 03:30 88 10/28/19 00:00 Nasal Cannula 2.0 10/28/19 00:00 98.0 89 24 139/74 (95) 99 10/27/19 23:31 87 10/27/19 21:53 99 Nasal Cannula 3.0 32 10/27/19 21:07 95 151/89 10/27/19 20:00 2.0 10/27/19 20:00 83 10/27/19 20:00 99.1 87 22 151/73 (99) 100 10/27/19 20:00 Nasal Cannula 2.0 10/27/19 18:30 Nasal Cannula 2.0 10/27/19 16:00 Nasal Cannula 2.0 10/27/19 16:00 78 10/27/19 16:00 2.0 10/27/19 16:00 99.9 89 20 109/80 (90) 100 Intake and Output 10/27/19 10/28/19 19:00 07:00 Intake Total 950 ml 1848.32 ml Output Total 1500 ml 260 ml Balance -550 ml 1588.32 ml Free Water 250 ml 200 ml IV Total 100 ml 1098.32 ml Tube Feeding 600 ml 550 ml Output Urine Total 550 ml Other 950 ml 260 ml # Voids 2 # Bowel Movements 6 Laboratory Tests 10/28/19 08:45: Sodium Level 138, Potassium Level 6.4*H, Chloride Level 102, Carbon Dioxide Level 31, Anion Gap 6, Blood Urea Nitrogen 33H, Creatinine 1.9H, Estimat Glomerular Filtration Rate 30.9, Glucose Level 236H, Calcium Level 9.4 Height (Feet): 5 Height (Inches): 5.00 Weight (Pounds): 137 Objective General Appearance: WD/WN, alert, confused. on bipap Neck: supple Cardiovascular: normal rate Respiratory/Chest: decreased crackles/rales, rhonchi - bilaterally(less) Abdomen: normal bowel sounds, non tender, soft, no organomegaly Edema: no edema noted Arm (L), no edema noted Arm (R), no edema noted Leg (L), no edema noted Leg (R), no edema noted Pedal (L), no edema noted Pedal (R), no edema noted Generalized Neurologic: alert, disoriented, unresponsive, aphasia Jeffrey Crowder MD Oct 28, 2019 16:01
--- NOTE | 2019-10-28 17:13 | Pulmonology Progress Note ---
Assessment/Plan Assessment/Plan 1. Urinary tract infection. 2. mucous plugging and retained secretions; 3. Renal failure. 4. Hypertension. 5. Congestive heart failure. 6. Seizure History 7. Diabetes 8. Hypernatremia 9. EDGAR with elevated K 10. acute hypoxemic respiratory failure PLAN monitor CXR repeat in am K per PMD mobilize secretions suction PRN monitor in SHAY BIPAP as needed monitor fluid status meds noted DNR oxygen as is respiratory care as is DNR ID follow up prognosis poor close followup for change; prognosis guarded impression, plan, and exam edited and reviewed in detail care discussed with RN Subjective Allergies: Coded Allergies: No Known Allergies (Verified , 12/31/09) Subjective care noted events noted and discussed on NC per RT care confirmed DNR reviewed changes Objective Last 24 Hour Vital Signs Date Time Temp Pulse Resp B/P (MAP) Pulse Ox O2 Delivery O2 Flow Rate FiO2 10/28/19 16:00 2.0 10/28/19 16:00 Nasal Cannula 2.0 10/28/19 16:00 99.6 67 20 149/77 (101) 100 10/28/19 12:08 2.0 10/28/19 12:08 Nasal Cannula 2.0 10/28/19 12:00 82 10/28/19 12:00 99.0 88 20 131/95 (107) 97 10/28/19 09:59 96 136/81 10/28/19 08:00 2.0 10/28/19 08:00 98.8 98 20 136/81 (99) 98 10/28/19 08:00 Nasal Cannula 2.0 10/28/19 08:00 96 10/28/19 07:28 98 Nasal Cannula 2.0 28 10/28/19 04:00 2.0 10/28/19 04:00 98.2 83 24 130/77 (94) 99 10/28/19 04:00 Nasal Cannula 2.0 10/28/19 03:30 88 10/28/19 00:00 Nasal Cannula 2.0 10/28/19 00:00 98.0 89 24 139/74 (95) 99 10/27/19 23:31 87 10/27/19 21:53 99 Nasal Cannula 3.0 32 10/27/19 21:07 95 151/89 10/27/19 20:00 2.0 10/27/19 20:00 83 10/27/19 20:00 99.1 87 22 151/73 (99) 100 10/27/19 20:00 Nasal Cannula 2.0 10/27/19 18:30 Nasal Cannula 2.0 Intake and Output 10/27/19 10/28/19 19:00 07:00 Intake Total 950 ml 1848.32 ml Output Total 1500 ml 260 ml Balance -550 ml 1588.32 ml Free Water 250 ml 200 ml IV Total 100 ml 1098.32 ml Tube Feeding 600 ml 550 ml Output Urine Total 550 ml Other 950 ml 260 ml # Voids 2 # Bowel Movements 6 Objective WDWN on nonrebreather mask reduced breath sounds bilaterally with some rhonchi [id number] without MRG NABS nontender no HSM no CC minimal edema nonfocal reduced LOC reviewed and edited Laboratory Tests 10/28/19 08:45: Sodium Level 138, Potassium Level 6.4*H, Chloride Level 102, Carbon Dioxide Level 31, Anion Gap 6, Blood Urea Nitrogen 33H, Creatinine 1.9H, Estimat Glomerular Filtration Rate 30.9, Glucose Level 236H, Calcium Level 9.4 Current Medications Medications (Trade) Dose Ordered Sig/Aaron Route PRN Reason Start Time Stop Time Status Last Admin Dose Admin Aspirin (ASA) 81 mg DAILY GT 10/19/19 09:00 11/14/19 08:59 10/28/19 09:59 Atropine Sulfate (Atropine Opth Jami) 1 drop Q8HR SL 10/18/19 22:00 11/16/19 09:59 10/28/19 14:40 Clonidine HCl (Catapres Tab) 0.1 mg Q6H PRN GT SBP>160 10/18/19 21:08 11/17/19 21:07 Dextrose (Dextrose 50%) 25 ml Q30M PRN IV Hypoglycemia 10/21/19 14:45 11/20/19 14:44 Dextrose (Dextrose 50%) 50 ml Q30M PRN IV Hypoglycemia 10/21/19 14:45 11/20/19 14:44 Gabapentin (Neurontin) 100 mg BID@0900,2100 GT 10/18/19 22:00 11/17/19 21:59 10/28/19 09:59 Glycopyrrolate (Robinul) 0.2 mg Q8HR IV 10/18/19 22:00 11/16/19 13:59 10/28/19 14:40 Heparin Sodium (Porcine) (Heparin 5000 units/ml) 5,000 units EVERY 12 HOURS SUBQ 10/18/19 22:00 11/17/19 21:59 10/28/19 10:01 Insulin Aspart (NovoLOG) Q6HR SUBQ 10/24/19 00:00 11/20/19 16:29 10/28/19 11:57 Insulin Detemir (Levemir) 5 units BID SUBQ 10/24/19 10:00 11/23/19 09:59 10/28/19 10:07 Lactulose (Cephulac) 20 gm DAILYPRN PRN GT Constipation 10/18/19 21:09 11/17/19 21:08 Lansoprazole (Prevacid) 30 mg DAILY GT 10/19/19 09:00 11/14/19 08:59 10/28/19 09:58 Levetiracetam (Keppra) 1,000 mg BID@0900,2100 GT 10/18/19 22:00 11/17/19 21:59 10/28/19 09:59 Levothyroxine Sodium (Synthroid) 75 mcg DAILY@0630 GT 10/19/19 06:30 11/15/19 06:29 10/28/19 05:43 Linezolid (Zyvox) 600 mg EVERY 12 HOURS ORAL 10/25/19 11:00 10/30/19 10:59 10/28/19 09:58 Magnesium Hydroxide (Mom) 30 ml DAILYPRN PRN GT Constipation 10/18/19 21:10 11/17/19 21:09 Metoclopramide HCl (Reglan) 2.5 mg Q8HR IVP 10/18/19 22:00 11/17/19 21:59 10/28/19 14:40 Metoprolol Tartrate (Lopressor) 25 mg Q12HR ORAL 10/26/19 00:30 11/25/19 00:29 10/28/19 09:59 Polyethylene Glycol (Miralax) 17 gm BEDTIME GT 10/18/19 22:00 11/17/19 21:59 10/26/19 20:25 Torey Douglass MD Oct 28, 2019 17:13
--- NOTE | 2019-10-28 17:31 | General Progress Note ---
Assessment/Plan Status: stable Assessment/Plan: Assessment - DM - h/o gastroparesis and GT TF intolerance - s/p G-J conversion - tolerated J port fees - OBS - resp distress, presumed due to reflux of gastric contents - contracted - elevated k Recommendations - TF via j port - abx - pulm toilet - G tube to LIS to protect against aspiration - Elevate HOB - kayexlatate Subjective Allergies: Coded Allergies: No Known Allergies (Verified , 12/31/09) Subjective above noted tolerating J feeds d/w cleaning staff supervisor Objective Last 24 Hour Vital Signs Date Time Temp Pulse Resp B/P (MAP) Pulse Ox O2 Delivery O2 Flow Rate FiO2 10/28/19 16:00 116 10/28/19 16:00 2.0 10/28/19 16:00 Nasal Cannula 2.0 10/28/19 16:00 99.6 67 20 149/77 (101) 100 10/28/19 12:08 2.0 10/28/19 12:08 Nasal Cannula 2.0 10/28/19 12:00 82 10/28/19 12:00 99.0 88 20 131/95 (107) 97 10/28/19 09:59 96 136/81 10/28/19 08:00 2.0 10/28/19 08:00 98.8 98 20 136/81 (99) 98 10/28/19 08:00 Nasal Cannula 2.0 10/28/19 08:00 96 10/28/19 07:28 98 Nasal Cannula 2.0 28 10/28/19 04:00 2.0 10/28/19 04:00 98.2 83 24 130/77 (94) 99 10/28/19 04:00 Nasal Cannula 2.0 10/28/19 03:30 88 10/28/19 00:00 Nasal Cannula 2.0 10/28/19 00:00 98.0 89 24 139/74 (95) 99 10/27/19 23:31 87 10/27/19 21:53 99 Nasal Cannula 3.0 32 10/27/19 21:07 95 151/89 10/27/19 20:00 2.0 10/27/19 20:00 83 10/27/19 20:00 99.1 87 22 151/73 (99) 100 10/27/19 20:00 Nasal Cannula 2.0 10/27/19 18:30 Nasal Cannula 2.0 Intake and Output 10/27/19 10/28/19 19:00 07:00 Intake Total 950 ml 1848.32 ml Output Total 1500 ml 260 ml Balance -550 ml 1588.32 ml Free Water 250 ml 200 ml IV Total 100 ml 1098.32 ml Tube Feeding 600 ml 550 ml Output Urine Total 550 ml Other 950 ml 260 ml # Voids 2 # Bowel Movements 6 Laboratory Tests 10/28/19 08:45: Sodium Level 138, Potassium Level 6.4*H, Chloride Level 102, Carbon Dioxide Level 31, Anion Gap 6, Blood Urea Nitrogen 33H, Creatinine 1.9H, Estimat Glomerular Filtration Rate 30.9, Glucose Level 236H, Calcium Level 9.4 Height (Feet): 5 Height (Inches): 5.00 Weight (Pounds): 137 Objective confused bedbound, contracted coarse BS RR abd soft, (+) GJ tube ext contracted and stiff OBS Darrell Griffith MD Oct 28, 2019 17:31
--- NOTE | 2019-10-28 19:15 | NUR ---
NURSE NOTES: Received pt from Shu Haddad RN. pt is observed in bed, nonverbal, unable to make needs known. no s/sx of pain noted at this time. pt is on 2 L O2 via NC, tolerating well, saturation at 99%, no s/sx of respiratory distress noted. electronic device monitor shows ST with HR of 104, no s/sx of acute cardiac distress noted. GJ tube noted, patent and intact. J tube running Glucerna 1.2 at 50 cc/hr; G tube connected to intermittent suction. HOB elevated to 45 degrees. RH 22 g IV site is patent and intact, asymptomatic. skin alterations noted. Purewick connected to suction, christa urine noted in canister. bed in lowest position and locked, padded siderails up X3, call light within reach. will continue to monitor.
--- NOTE | 2019-10-28 19:20 | NUR ---
HAND-OFF: Report given to Carol Woody RN.
[2019-10-28 20:00] VITALS: BP 151/87
[2019-10-28] MEDS: Miralax 17gm pkt GT SCH (21:03)
--- NOTE | 2019-10-28 22:50 | NUR ---
NURSE NOTES: pt noted to have copious amounts of thin secretions. orally suctioned. pt tolerated well. saturation 98%, no s/sx of respiratory distress noted. d/t risk for aspiration, feeding stopped at this time. will continue to monitor.
[2019-10-29] VITALS: BP_SYST 10; BP_SYST 132; BP_DIAS 76; BP_DIAS 78
--- NOTE | 2019-10-29 01:45 | Progress Note ---
DATE: 10/28/2019 CARDIOLOGY PROGRESS NOTE SUBJECTIVE: The patient is less congested. No shortness of breath. Off BiPAP. Tolerating feedings. There was significant G-tube output. Poorly responsive. OBJECTIVE: VITAL SIGNS: Blood pressure 151/87, heart rate 108, respiratory rate 22, and temperature max 99.9 degrees. LUNGS: Bilateral breath sounds. CARDIAC: Regular rhythm and rate. Normal S1 and S2. ABDOMEN: Soft. GJ-tube is intact. EXTREMITIES: Trace edema. LABORATORY DATA: Sodium 138, potassium 6.4, BUN 33, creatinine 1.9, and bicarbonate 31. IMPRESSION: 1. Hyperkalemia. 2. Gastroparesis. 3. Aspiration. 4. Sepsis. 5. Hypertensive heart disease. 6. Labile blood pressure. 7. [id number] kidney injury. PLAN: 1. Cautious nutrition by J-tube with G-tube . 2. Antimicrobials. 3. Respiratory hygiene. 4. Titrate antihypertensives. 5. Kayexalate x1. 6. Repeat chemistry panel. 7. Hold diuretics at this time. 8. Remains high risk. Kavon Peña M.D. DR: KEN JOB#: [id number] CC:
[2019-10-29 04:00] VITALS: BP 123/68
[2019-10-29] MEDS: Glycopyrrolate 0.2mg/ml 1ml Vial IV SCH ×3 (06:15→22:32)
[2019-10-29] MEDS: Metoclopramide 10mg/2ml Inj IVP SCH ×3 (06:15→22:32)
[2019-10-29] MEDS: NovoLOG Insulin Flexpen SUBQ SCH ×3 (06:20→18:07)
--- NOTE | 2019-10-29 07:15 | NUR ---
NURSE NOTES: Report received from Carol GEIGER. Patient brought to unit in hospital bed. Patient diagnosed with CHF and EDGAR. Patient is currently awake and alert x 1. Was endorsed that this is baseline for the patient. Patient noted to have J tube and G tube. J tube is to have glucerna 1.2 running at 50 cc / hr. Will obtain feeding pump. G tube is to be used for medications only. G tube hooked up to intermittent suction, to be held for 1 hour after medications are given. Both tubes are to be flushed 50 cc every four hours. Dressing clean dry and in tact. 22 janina IV noted left hand. Intact and flushes. Patient noted to have small skin tear on left hand. No other skin issues. Patient on 2 liters of oxygen via nasal canula. Patient does not appear to be in respiratory distress at this time. Will continue to follow plan of care.
[2019-10-29 07:35] LABS: ALANINE AMINOTRANSFERASE 7 U/L (12-78); ALBUMIN 2.3 G/DL (3.4-5.0); ALBUMIN/GLOBULIN RATIO 0.5 (1.0-2.7); ALKALINE PHOSPHATASE 90 U/L (46-116); ANION GAP 4 mmol/L (5-15); ASPARTATE AMINO TRANSFERASE 15 U/L (15-37); BILIRUBIN,TOTAL 0.3 MG/DL (0.2-1.0); BLOOD UREA NITROGEN 35 mg/dL (7-18); CALCIUM 9.4 MG/DL (8.5-10.1); CARBON DIOXIDE 34 MMOL/L (21-32); CHLORIDE 101 MMOL/L (98-107); SODIUM 139 MMOL/L (136-145)
--- NOTE | 2019-10-29 07:45 | NUR ---
NURSE NOTES: Laboratory called. Potassium of 6.0. Doctor Lakesha made aware. kayexylate 60 g x 1 order. 1400 BMP ordered. Orders placed by Juan Carlos GEIGER. Charge nurse Shanika made aware.
--- NOTE | 2019-10-29 07:49 | NUR ---
TRANSFER TO FLOOR: Patient transferred to , room 401-2 per MD order. Report given to FELY Rangel. Medications given to receiving RN. Family and or S/O informed of transfer. pt is in stable condition. endorsed plan of care.
[2019-10-29 08:00] VITALS: BP 143/80
[2019-10-29] MEDS ORDERED: Sodium Polystyrene Sulfonate 15gm Powder ORAL SCH ×2 (08:00)
[2019-10-29] MEDS: Aspirin Baby 81mg GT SCH (08:30)
[2019-10-29] MEDS: levETIRAcetam 500mg/5ml Liquid GT SCH ×2 (08:30→21:05)
--- NOTE | 2019-10-29 08:37 | NUR ---
NURSE NOTES: Nursing supervisor dry cleaning aware of critical value. patient to stay on 4E.
[2019-10-29] MEDS: Levemir Flexpen SUBQ SCH ×2 (08:44→18:06)
[2019-10-29] MEDS: Heparin 5000 units/ml inj SUBQ SCH ×2 (08:47→21:07)
--- NOTE | 2019-10-29 09:02 | Diagnostic Imaging Report ---
EXAM: XR Chest, 1 View CLINICAL HISTORY: Shortness of breath TECHNIQUE: Frontal view of the chest. COMPARISON: Chest x-rays dated 10/24/19 FINDINGS: Lungs: Persistent pulmonary vascular congestion and perihilar opacities. No significant change in bibasilar opacities. Pleural space: No significant change in the small left pleural effusion. Heart: Unremarkable. No cardiomegaly. Mediastinum: Unremarkable. Bones/joints: Unremarkable. Vasculature: Atherosclerotic calcifications are noted within the aortic arch. Tubes, lines and devices: Partial visualization of radiodense tubing in the upper abdomen and left upper abdominal quadrant. IMPRESSION: No significant interval change from the prior exam, with persistent pulmonary vascular congestion, bibasilar consolidation, and small left effusion.
--- NOTE | 2019-10-29 10:53 | Pulmonology Progress Note ---
Assessment/Plan Assessment/Plan Pulmonary Progress Note HPI: Patient is an 79-year-old woman with history of Diabetes, Renal failure, Seizures, admitted with cough, congestion and respiratory distress, noted to have Psudomonal UTI, basal atelectasis on CT chest PAST MEDICAL HISTORY: 1. History of diabetes. 2. Pneumonia. 3. Renal failure. 4. Congestive heart failure. 5. Hypertension 6. Hypothyroidism 7. Previous G tube Assessment/Plan 1. Urinary tract infection. 2. mucous plugging and retained secretions; 3. Renal failure. 4. Hypertension. 5. Congestive heart failure. 6. Seizure History 7. Diabetes 8. Hypernatremia 9. EDGAR with elevated K 10. acute hypoxemic respiratory failure PLAN monitor CXR repeat in am K per PMD mobilize secretions suction PRN monitor in SHAY BIPAP as needed monitor fluid status meds noted DNR oxygen as is respiratory care as is DNR ID follow up prognosis poor close followup for change; prognosis guarded impression, plan, and exam edited and reviewed in detail care discussed with RN Subjective Allergies: Coded Allergies: No Known Allergies (Verified , 12/31/09) Subjective care noted events noted and discussed on NC per RT care confirmed DNR reviewed changes Objective Vital Signs Noted Objective WDWN on nonrebreather mask reduced breath sounds bilaterally with some rhonchi [id number] without MRG NABS nontender no HSM no CC minimal edema nonfocal reduced LOC reviewed and edited Laboratory Tests Noted Medications Medications (Trade) Dose Ordered Sig/Aaron Route PRN Reason Start Time Stop Time Status Last Admin Dose Admin Aspirin (ASA) 81 mg DAILY GT 10/19/19 09:00 11/14/19 08:59 10/28/19 09:59 Atropine Sulfate (Atropine Opth Jami) 1 drop Q8HR SL 10/18/19 22:00 11/16/19 09:59 10/28/19 14:40 Clonidine HCl (Catapres Tab) 0.1 mg Q6H PRN GT SBP>160 10/18/19 21:08 11/17/19 21:07 Dextrose (Dextrose 50%) 25 ml Q30M PRN IV Hypoglycemia 10/21/19 14:45 11/20/19 14:44 Dextrose (Dextrose 50%) 50 ml Q30M PRN IV Hypoglycemia 10/21/19 14:45 11/20/19 14:44 Gabapentin (Neurontin) 100 mg BID@0900,2100 GT 10/18/19 22:00 11/17/19 21:59 10/28/19 09:59 Glycopyrrolate (Robinul) 0.2 mg Q8HR IV 10/18/19 22:00 11/16/19 13:59 10/28/19 14:40 Heparin Sodium (Porcine) (Heparin 5000 units/ml) 5,000 units EVERY 12 HOURS SUBQ 10/18/19 22:00 11/17/19 21:59 10/28/19 10:01 Insulin Aspart (NovoLOG) Q6HR SUBQ 10/24/19 00:00 11/20/19 16:29 10/28/19 11:57 Insulin Detemir (Levemir) 5 units BID SUBQ 10/24/19 10:00 11/23/19 09:59 10/28/19 10:07 Lactulose (Cephulac) 20 gm DAILYPRN PRN GT Constipation 10/18/19 21:09 11/17/19 21:08 Lansoprazole (Prevacid) 30 mg DAILY GT 10/19/19 09:00 11/14/19 08:59 10/28/19 09:58 Levetiracetam (Keppra) 1,000 mg BID@0900,2100 GT 10/18/19 22:00 11/17/19 21:59 10/28/19 09:59 Levothyroxine Sodium (Synthroid) 75 mcg DAILY@0630 GT 10/19/19 06:30 11/15/19 06:29 10/28/19 05:43 Linezolid (Zyvox) 600 mg EVERY 12 HOURS ORAL 10/25/19 11:00 10/30/19 10:59 10/28/19 09:58 Magnesium Hydroxide (Mom) 30 ml DAILYPRN PRN GT Constipation 10/18/19 21:10 11/17/19 21:09 Metoclopramide HCl (Reglan) 2.5 mg Q8HR IVP 10/18/19 22:00 11/17/19 21:59 10/28/19 14:40 Metoprolol Tartrate (Lopressor) 25 mg Q12HR ORAL 10/26/19 00:30 11/25/19 00:29 10/28/19 09:59 Polyethylene Glycol (Miralax) 17 gm BEDTIME GT 10/18/19 22:00 11/17/19 21:59 10/26/19 20:25 Subjective ROS Limited/Unobtainable: No Allergies: Coded Allergies: No Known Allergies (Verified , 12/31/09) Objective Last 24 Hour Vital Signs Date Time Temp Pulse Resp B/P (MAP) Pulse Ox O2 Delivery O2 Flow Rate FiO2 10/29/19 08:31 81 144/59 10/29/19 08:00 2.0 10/29/19 08:00 98.2 90 20 143/80 (101) 100 10/29/19 08:00 Nasal Cannula 2.0 10/29/19 06:40 100 Nasal Cannula 2.0 28 10/29/19 04:00 98.9 89 18 123/68 (86) 100 10/29/19 04:00 Nasal Cannula 2.0 10/29/19 04:00 2.0 10/29/19 04:00 70 10/29/19 00:00 99.9 95 20 132/78 (96) 97 10/29/19 00:00 95 10/29/19 00:00 Nasal Cannula 2.0 10/28/19 21:03 108 151/87 10/28/19 20:00 2.0 10/28/19 20:00 97.9 108 22 151/87 (108) 100 10/28/19 20:00 Nasal Cannula 2.0 10/28/19 20:00 103 10/28/19 19:22 100 Nasal Cannula 2.0 28 10/28/19 16:00 116 10/28/19 16:00 2.0 10/28/19 16:00 Nasal Cannula 2.0 10/28/19 16:00 99.6 67 20 149/77 (101) 100 10/28/19 12:08 2.0 10/28/19 12:08 Nasal Cannula 2.0 10/28/19 12:00 82 10/28/19 12:00 99.0 88 20 131/95 (107) 97 Intake and Output 10/28/19 10/29/19 19:00 07:00 Intake Total 1000 ml 550 ml Output Total 1000 ml 350 ml Balance 0 ml 200 ml Free Water 150 ml 300 ml Tube Feeding 650 ml 200 ml Other 200 ml 50 ml Output Urine Total 1000 ml 350 ml # Bowel Movements 4 1 Laboratory Tests 10/29/19 04:41: Sodium Level 139, Potassium Level 6.0*H, Chloride Level 101, Carbon Dioxide Level 34H, Anion Gap 4L, Blood Urea Nitrogen 35H, Creatinine 2.0H, Estimat Glomerular Filtration Rate 29.1, Glucose Level 189H, Calcium Level 9.4, Total Bilirubin 0.3, Aspartate Amino Transf (AST/SGOT) 15, Alanine Aminotransferase ( ALT/SGPT) 7L, Alkaline Phosphatase 90, Total Protein 7.3, Albumin 2.3L, Globulin 5.0, Albumin/Globulin Ratio 0.5L Current Medications Medications (Trade) Dose Ordered Sig/Aaron Route PRN Reason Start Time Stop Time Status Last Admin Dose Admin Aspirin (ASA) 81 mg DAILY GT 10/29/19 09:00 11/14/19 08:59 10/29/19 08:30 Atropine Sulfate (Atropine Opth Jami) 1 drop Q8HR SL 10/29/19 14:00 11/16/19 09:59 Clonidine HCl (Catapres Tab) 0.1 mg Q6H PRN GT SBP>160 10/29/19 09:15 11/17/19 21:07 Dextrose (Dextrose 50%) 25 ml Q30M PRN IV Hypoglycemia 10/29/19 08:15 11/20/19 14:44 Dextrose (Dextrose 50%) 50 ml Q30M PRN IV Hypoglycemia 10/29/19 08:15 11/20/19 14:44 Gabapentin (Neurontin) 100 mg BID@0900,2100 GT 10/29/19 09:00 11/17/19 21:59 10/29/19 08:30 Glycopyrrolate (Robinul) 0.2 mg Q8HR IV 10/29/19 14:00 11/16/19 13:59 Heparin Sodium (Porcine) (Heparin 5000 units/ml) 5,000 units EVERY 12 HOURS SUBQ 10/29/19 09:00 11/17/19 21:59 10/29/19 08:47 Insulin Aspart (NovoLOG) Q6HR SUBQ 10/29/19 12:00 11/20/19 16:29 Insulin Detemir (Levemir) 5 units BID SUBQ 10/29/19 09:00 11/23/19 09:59 10/29/19 08:44 Lactulose (Cephulac) 20 gm DAILYPRN PRN GT Constipation 10/29/19 21:15 11/17/19 21:08 Lansoprazole (Prevacid) 30 mg DAILY GT 10/29/19 09:00 11/14/19 08:59 10/29/19 08:30 Levetiracetam (Keppra) 1,000 mg BID@0900,2100 GT 10/29/19 09:00 11/17/19 21:59 10/29/19 08:30 Levothyroxine Sodium (Synthroid) 75 mcg DAILY@0630 GT 10/30/19 06:30 11/15/19 06:29 Linezolid (Zyvox) 600 mg EVERY 12 HOURS ORAL 10/29/19 09:00 10/30/19 10:59 10/29/19 08:31 Magnesium Hydroxide (Mom) 30 ml DAILYPRN PRN GT Constipation 10/29/19 21:15 11/17/19 21:09 Metoclopramide HCl (Reglan) 2.5 mg Q8HR IVP 10/29/19 14:00 11/17/19 21:59 Metoprolol Tartrate (Lopressor) 25 mg Q12HR ORAL 10/29/19 09:00 11/25/19 00:29 10/29/19 08:31 Polyethylene Glycol (Miralax) 17 gm BEDTIME GT 10/29/19 21:00 11/17/19 21:59 Kavon Seals MD Oct 29, 2019 10:53
--- NOTE | 2019-10-29 11:02 | General Progress Note ---
Assessment/Plan Problem List: (1) Diabetes mellitus ICD Codes: E11.9 - Type 2 diabetes mellitus without complications SNOMED: 31293953 (2) Encephalopathy acute ICD Codes: G93.40 - Encephalopathy, unspecified SNOMED: 5771809 (3) Pneumonia ICD Codes: J18.9 - Pneumonia, unspecified organism SNOMED: 401860013 (4) HTN (hypertension) ICD Codes: I10 - Essential (primary) hypertension SNOMED: 65890186 (5) CHF (congestive heart failure) ICD Codes: I50.9 - Heart failure, unspecified SNOMED: 13989259 Qualifiers: Qualified Codes: I50.9 - Heart failure, unspecified (6) ARF (acute renal failure) ICD Codes: N17.9 - Acute kidney failure, unspecified SNOMED: 24980860 Qualifiers: Qualified Codes: N17.9 - Acute kidney failure, unspecified Status: stable Assessment/Plan: resp care/o2 suctioning monitor off bipap o2 monitor cxr iv abx reglan j port to LIS monitor wbc insulin coverage repeat kayexylate clinically improving Subjective ROS Limited/Unobtainable: Yes Constitutional: Reports: malaise, weakness HEENT: Reports: no symptoms Cardiovascular: Reports: edema Respiratory: Reports: shortness of breath, sputum Gastrointestinal/Abdominal: Reports: difficulty swallowing Genitourinary: Reports: no symptoms Neurologic/Psychiatric: Reports: pre-existing deficit, seizure Endocrine: Reports: no symptoms Hematologic/Lymphatic: Reports: anemia Allergies: Coded Allergies: No Known Allergies (Verified , 12/31/09) All Systems: reviewed and negative except above Subjective no events. off bipap, minimal congestion and sob. tolerating feeds thru J tube. k still elevated. wbc trending down. on iv abx. poorly responsive at baseline Objective Last 24 Hour Vital Signs Date Time Temp Pulse Resp B/P (MAP) Pulse Ox O2 Delivery O2 Flow Rate FiO2 10/29/19 08:31 81 144/59 10/29/19 08:00 2.0 10/29/19 08:00 98.2 90 20 143/80 (101) 100 10/29/19 08:00 Nasal Cannula 2.0 10/29/19 06:40 100 Nasal Cannula 2.0 28 10/29/19 04:00 98.9 89 18 123/68 (86) 100 10/29/19 04:00 Nasal Cannula 2.0 10/29/19 04:00 2.0 10/29/19 04:00 70 10/29/19 00:00 99.9 95 20 132/78 (96) 97 10/29/19 00:00 95 10/29/19 00:00 Nasal Cannula 2.0 10/28/19 21:03 108 151/87 10/28/19 20:00 2.0 10/28/19 20:00 97.9 108 22 151/87 (108) 100 10/28/19 20:00 Nasal Cannula 2.0 10/28/19 20:00 103 10/28/19 19:22 100 Nasal Cannula 2.0 28 10/28/19 16:00 116 10/28/19 16:00 2.0 10/28/19 16:00 Nasal Cannula 2.0 10/28/19 16:00 99.6 67 20 149/77 (101) 100 10/28/19 12:08 2.0 10/28/19 12:08 Nasal Cannula 2.0 10/28/19 12:00 82 10/28/19 12:00 99.0 88 20 131/95 (107) 97 Intake and Output 10/28/19 10/29/19 19:00 07:00 Intake Total 1000 ml 550 ml Output Total 1000 ml 350 ml Balance 0 ml 200 ml Free Water 150 ml 300 ml Tube Feeding 650 ml 200 ml Other 200 ml 50 ml Output Urine Total 1000 ml 350 ml # Bowel Movements 4 1 Laboratory Tests 10/29/19 04:41: Sodium Level 139, Potassium Level 6.0*H, Chloride Level 101, Carbon Dioxide Level 34H, Anion Gap 4L, Blood Urea Nitrogen 35H, Creatinine 2.0H, Estimat Glomerular Filtration Rate 29.1, Glucose Level 189H, Calcium Level 9.4, Total Bilirubin 0.3, Aspartate Amino Transf (AST/SGOT) 15, Alanine Aminotransferase ( ALT/SGPT) 7L, Alkaline Phosphatase 90, Total Protein 7.3, Albumin 2.3L, Globulin 5.0, Albumin/Globulin Ratio 0.5L Height (Feet): 5 Height (Inches): 5.00 Weight (Pounds): 137 Objective General Appearance: WD/WN, alert, confused. on bipap Neck: supple Cardiovascular: normal rate Respiratory/Chest: decreased crackles/rales, rhonchi - bilaterally(less) Abdomen: normal bowel sounds, non tender, soft, no organomegaly Edema: no edema noted Arm (L), no edema noted Arm (R), no edema noted Leg (L), no edema noted Leg (R), no edema noted Pedal (L), no edema noted Pedal (R), no edema noted Generalized Neurologic: alert, disoriented, unresponsive, aphasia Jeffrey Crowder MD Oct 29, 2019 11:02
[2019-10-29 12:00] VITALS: BP 141/59
[2019-10-29 14:39] LABS: ANION GAP 6 mmol/L (5-15); BLOOD UREA NITROGEN 35 mg/dL (7-18); CALCIUM 8.9 MG/DL (8.5-10.1); CARBON DIOXIDE 33 MMOL/L (21-32); CHLORIDE 101 MMOL/L (98-107); POTASSIUM 5.3 MMOL/L (3.5-5.1); SODIUM 140 MMOL/L (136-145)
[2019-10-29 16:00] VITALS: BP 110/60
[2019-10-29] MEDS ORDERED: NS 275ml ONE (16:39)
--- NOTE | 2019-10-29 19:26 | NUR ---
HAND-OFF: Report given to Vesna GEIGER. Patient in stable condition.
--- NOTE | 2019-10-29 19:33 | NUR ---
NURSE NOTES: Received patient in bed, patient is non verbal, confused, disoriented, IV site is clean dry and intact, no acute distress noted, patient is on J tube feeding, tolerating well with no residual. Fall precautions and aspiration precautions are enforced, call light is within reach, bed is lowered, locked, alarm is on. Will continue to monitor for comfort and safety.
[2019-10-29 20:00] VITALS: BP 148/78
[2019-10-29] MEDS: Miralax 17gm pkt GT SCH (21:06)
[2019-10-29] MEDS ORDERED: Milk of Magnesia 30ml Ud GT PRN (21:15)
[2019-10-29] MEDS ORDERED: Lactulose 20gm/30ml UDC GT PRN (21:15)
[2019-10-30] VITALS: BP 147/78
[2019-10-30] MEDS: NovoLOG Insulin Flexpen SUBQ SCH ×5 (00:24→23:26)
--- NOTE | 2019-10-30 02:15 | Progress Note ---
DATE: 10/29/2019 SUBJECTIVE: The patient with with less congestion, requiring suctioning, tolerating feedings. Elevated potassium requiring Kayexalate, tolerating feedings through . Chest x-ray reveals pulmonary venous congestion today. PHYSICAL EXAMINATION: VITAL SIGNS: Blood pressure 143/80, heart rate 90, respiratory rate 20. LUNGS: Bilateral breath sounds with rhonchi. HEART: Regular rhythm and rate. Normal S1, S2. GASTROINTESTINAL: Feeding tube intact. EXTREMITIES: No edema. LABORATORY AND DIAGNOSTIC DATA: Sodium 140, potassium 5.3, bicarb 33, BUN 35, creatinine 2. PLAN: 1. Additional diuresis. 2. Antimicrobials. 3. Respiratory hygiene. 4. Monitor electrolytes. 5. Nutrition by tube. Kavon Peña M.D. DR: Morris JOB#: [id number] CC:
[2019-10-30 04:33] VITALS: BP 137/74
[2019-10-30] MEDS: Metoclopramide 10mg/2ml Inj IVP SCH ×3 (05:26→21:11)
[2019-10-30] MEDS: Glycopyrrolate 0.2mg/ml 1ml Vial IV SCH ×3 (05:26→21:10)
--- NOTE | 2019-10-30 07:00 | NUR ---
NURSE NOTES:Handoff received from FELY Malagon. Patient received sleeping in bed, no acute signs of distress noted. Tube feeding held as synthroid given PM shift, will restart when doing medication admin this AM. Patient is on 3 liters nasal cannula, breathing unlabored. Patient has both a Jtube and Gtube. IV site is clean dry and intact, saline locked. Bed in the low and locked position with call light within reach, will continue to monitor patient.
--- NOTE | 2019-10-30 07:14 | NUR ---
HAND-OFF: Report given to Jesus GEIGER.
[2019-10-30 08:00] VITALS: BP 109/67
[2019-10-30] MEDS: Aspirin Baby 81mg GT SCH (09:21)
[2019-10-30] MEDS: levETIRAcetam 500mg/5ml Liquid GT SCH ×2 (09:22→21:09)
[2019-10-30] MEDS: Heparin 5000 units/ml inj SUBQ SCH ×2 (09:23→21:10)
[2019-10-30] MEDS: Levemir Flexpen SUBQ SCH ×2 (09:26→17:07)
--- NOTE | 2019-10-30 09:48 | Infectious Diseases Prog Note ---
Assessment/Plan Assessment/Plan A; 1. Urinary tract infection with Pseudomonas treated 2. Acute renal failure. 3. Hypertension. 4. Congestive heart failure. 5. 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 DNR status 8. MRSA pneumonia PLAN: 1. Continue Linezolid Until tomorrow Subjective ROS Limited/Unobtainable: Yes Allergies: Coded Allergies: No Known Allergies (Verified , 12/31/09) Objective Vital Signs Last 24 Hour Vital Signs Date Time Temp Pulse Resp B/P (MAP) Pulse Ox O2 Delivery O2 Flow Rate FiO2 10/30/19 09:22 101 109/67 10/30/19 08:00 98.7 101 20 109/67 (81) 96 10/30/19 08:00 2.0 10/30/19 04:33 97.8 74 18 137/74 (95) 98 10/30/19 03:43 2.0 40 10/30/19 00:00 98.7 78 20 147/78 (101) 94 10/29/19 21:44 Nasal Cannula 2.0 10/29/19 21:06 78 129/87 10/29/19 21:00 2.0 40 10/29/19 20:00 98.7 78 18 148/78 (101) 94 10/29/19 20:00 Nasal Cannula 2.0 10/29/19 19:41 99 Nasal Cannula 2.0 28 10/29/19 16:00 98.2 86 19 110/60 (77) 100 10/29/19 16:00 Nasal Cannula 2.0 10/29/19 12:55 2.0 40 10/29/19 12:00 Nasal Cannula 2.0 10/29/19 12:00 2.0 10/29/19 12:00 98.5 80 19 141/59 (86) 100 Height (Feet): 5 Height (Inches): 5.00 Weight (Pounds): 137 General Appearance: no acute distress HEENT: mucous membranes moist Respiratory/Chest: lungs clear, other - oxygen by nasal cannula Cardiovascular: tachycardia Abdomen: soft, non tender, other - GT feeding Neurologic/Psychiatric: aphasia, other - awake Laboratory Tests Test 10/29/19 14:13 Sodium Level 140 MMOL/L (136-145) Potassium Level 5.3 MMOL/L (3.5-5.1) H Chloride Level 101 MMOL/L (98-107) Carbon Dioxide Level 33 MMOL/L (21-32) H Anion Gap 6 mmol/L (5-15) Blood Urea Nitrogen 35 mg/dL (7-18) H Creatinine 2.0 MG/DL (0.55-1.30) H Estimat Glomerular Filtration Rate 29.1 mL/min (>60) Glucose Level 193 MG/DL (74-106) H Calcium Level 8.9 MG/DL (8.5-10.1) Current Medications Medications (Trade) Dose Ordered Sig/Aaron Route PRN Reason Start Time Stop Time Status Last Admin Dose Admin Aspirin (ASA) 81 mg DAILY GT 10/29/19 09:00 11/14/19 08:59 10/30/19 09:21 Atropine Sulfate (Atropine Opth Jami) 1 drop Q8HR SL 10/29/19 14:00 11/16/19 09:59 10/30/19 05:26 Clonidine HCl (Catapres Tab) 0.1 mg Q6H PRN GT SBP>160 10/29/19 09:15 11/17/19 21:07 Dextrose (Dextrose 50%) 25 ml Q30M PRN IV Hypoglycemia 10/29/19 08:15 11/20/19 14:44 Dextrose (Dextrose 50%) 50 ml Q30M PRN IV Hypoglycemia 10/29/19 08:15 11/20/19 14:44 Gabapentin (Neurontin) 100 mg BID@0900,2100 GT 10/29/19 09:00 11/17/19 21:59 10/30/19 09:21 Glycopyrrolate (Robinul) 0.2 mg Q8HR IV 10/29/19 14:00 11/16/19 13:59 10/30/19 05:26 Heparin Sodium (Porcine) (Heparin 5000 units/ml) 5,000 units EVERY 12 HOURS SUBQ 10/29/19 09:00 11/17/19 21:59 10/30/19 09:23 Insulin Aspart (NovoLOG) Q6HR SUBQ 10/29/19 12:00 11/20/19 16:29 10/30/19 05:50 Insulin Detemir (Levemir) 5 units BID SUBQ 10/29/19 09:00 11/23/19 09:59 10/30/19 09:26 Lactulose (Cephulac) 20 gm DAILYPRN PRN GT Constipation 10/29/19 21:15 11/17/19 21:08 Lansoprazole (Prevacid) 30 mg DAILY GT 10/29/19 09:00 11/14/19 08:59 10/30/19 09:21 Levetiracetam (Keppra) 1,000 mg BID@0900,2100 GT 10/29/19 09:00 11/17/19 21:59 10/30/19 09:22 Levothyroxine Sodium (Synthroid) 75 mcg DAILY@0630 GT 10/30/19 06:00 11/15/19 05:59 10/30/19 05:49 Linezolid (Zyvox) 600 mg EVERY 12 HOURS ORAL 10/29/19 09:00 10/31/19 23:59 10/30/19 09:21 Magnesium Hydroxide (Mom) 30 ml DAILYPRN PRN GT Constipation 10/29/19 21:15 11/17/19 21:09 Metoclopramide HCl (Reglan) 2.5 mg Q8HR IVP 10/29/19 14:00 11/17/19 21:59 10/30/19 05:26 Metoprolol Tartrate (Lopressor) 25 mg Q12HR ORAL 10/29/19 09:00 11/25/19 00:29 10/30/19 09:22 Polyethylene Glycol (Miralax) 17 gm BEDTIME GT 10/29/19 21:00 11/17/19 21:59 10/29/19 21:06 Bay Richter MD Oct 30, 2019 09:48
[2019-10-30 12:00] VITALS: BP 131/62
--- NOTE | 2019-10-30 12:40 | General Progress Note ---
Assessment/Plan Problem List: (1) Diabetes mellitus ICD Codes: E11.9 - Type 2 diabetes mellitus without complications SNOMED: 36657891 (2) Encephalopathy acute ICD Codes: G93.40 - Encephalopathy, unspecified SNOMED: 1087194 (3) Pneumonia ICD Codes: J18.9 - Pneumonia, unspecified organism SNOMED: 199640629 (4) HTN (hypertension) ICD Codes: I10 - Essential (primary) hypertension SNOMED: 91571462 (5) CHF (congestive heart failure) ICD Codes: I50.9 - Heart failure, unspecified SNOMED: 84963925 Qualifiers: Qualified Codes: I50.9 - Heart failure, unspecified (6) ARF (acute renal failure) ICD Codes: N17.9 - Acute kidney failure, unspecified SNOMED: 71836409 Qualifiers: Qualified Codes: N17.9 - Acute kidney failure, unspecified Status: stable Assessment/Plan: resp care/o2 suctioning monitor off bipap o2 monitor cxr iv abx diuresis per cards reglan j port to LIS monitor wbc insulin coverage clinically improving dc planning tomorrow if ok with all Subjective ROS Limited/Unobtainable: No Constitutional: Reports: malaise, weakness HEENT: Reports: no symptoms Cardiovascular: Reports: no symptoms Respiratory: Reports: cough, shortness of breath, SOB at rest Gastrointestinal/Abdominal: Reports: difficulty swallowing Genitourinary: Reports: no symptoms Neurologic/Psychiatric: Reports: pre-existing deficit, seizure Endocrine: Reports: no symptoms Hematologic/Lymphatic: Reports: no symptoms Allergies: Coded Allergies: No Known Allergies (Verified , 12/31/09) All Systems: reviewed and negative except above Subjective no events. off bipap, minimal congestion and sob. tolerating feeds thru J tube. labs pending. on iv lasix. Objective Last 24 Hour Vital Signs Date Time Temp Pulse Resp B/P (MAP) Pulse Ox O2 Delivery O2 Flow Rate FiO2 10/30/19 12:00 2.0 10/30/19 11:31 Nasal Cannula 2.0 10/30/19 09:22 101 109/67 10/30/19 08:00 98.7 101 20 109/67 (81) 96 10/30/19 08:00 2.0 10/30/19 04:33 97.8 74 18 137/74 (95) 98 10/30/19 03:43 2.0 40 10/30/19 00:00 98.7 78 20 147/78 (101) 94 10/29/19 21:44 Nasal Cannula 2.0 10/29/19 21:06 78 129/87 10/29/19 21:00 2.0 40 10/29/19 20:00 98.7 78 18 148/78 (101) 94 10/29/19 20:00 Nasal Cannula 2.0 10/29/19 19:41 99 Nasal Cannula 2.0 28 10/29/19 16:00 98.2 86 19 110/60 (77) 100 10/29/19 16:00 Nasal Cannula 2.0 10/29/19 12:55 2.0 40 Intake and Output 10/29/19 10/30/19 19:00 07:00 Intake Total 1250 ml 650 ml Output Total 650 ml 400 ml Balance 600 ml 250 ml Free Water 300 ml 100 ml Tube Feeding 650 ml 550 ml Other 300 ml Output Urine Total 500 ml 400 ml Gastric Drainage Total 150 ml Laboratory Tests 10/29/19 14:13: Sodium Level 140, Potassium Level 5.3H, Chloride Level 101, Carbon Dioxide Level 33H, Anion Gap 6, Blood Urea Nitrogen 35H, Creatinine 2.0H, Estimat Glomerular Filtration Rate 29.1, Glucose Level 193H, Calcium Level 8.9 Height (Feet): 5 Height (Inches): 5.00 Weight (Pounds): 137 Objective General Appearance: WD/WN, alert, confused. on bipap Neck: supple Cardiovascular: normal rate Respiratory/Chest: decreased crackles/rales, rhonchi - bilaterally(less) Abdomen: normal bowel sounds, non tender, soft, no organomegaly Edema: no edema noted Arm (L), no edema noted Arm (R), no edema noted Leg (L), no edema noted Leg (R), no edema noted Pedal (L), no edema noted Pedal (R), no edema noted Generalized Neurologic: alert, disoriented, unresponsive, aphasia Jeffrey Crowder MD Oct 30, 2019 12:40
--- NOTE | 2019-10-30 13:50 | NUR ---
NURSE NOTES: Patient's daughter visited patient and wanted to know why the patient had a DNR bracelet. I explained to the patient that the patient's Next Of Kin signed a DNR and DNI POLST on 04/25/2019 according to the POLST in the patient's chart. Patient was on the phone to the NOK Anastasiya Ugalde who also confirmed that both her and the daughter would like the patient to be on full code with the daughter stating " I want everything to be done to try and save my mother" Contacted Dr Peña and left a message regarding the families wishes.
--- NOTE | 2019-10-30 15:11 | NUR ---
NURSE NOTES: Tried calling patient's sister to notify her that MD changed the resuscitation status to full code. Did not get an answer however the Sister called back a couple of minutes later. I informed the sister that the patient is now changed to full code. Sister asked some questions about the code status and patient returning to baseline. I informed the patient that she would have to speak to the Dr about the circumstances surrounding full code status. I explained that Full code means they will use all means to resuscitate the patient including CPR, defibrillation, intubation and medications, but was unable to elaborate more on her questions as I explained that information would need to come from an MD.
--- NOTE | 2019-10-30 15:14 | Pulmonology Progress Note ---
Assessment/Plan Assessment/Plan Pulmonary Progress Note HPI: Patient is an 79-year-old woman with history of Diabetes, Renal failure, Seizures, admitted with cough, congestion and respiratory distress, noted to have Psudomonal UTI, basal atelectasis on CT chest PAST MEDICAL HISTORY: 1. History of diabetes. 2. Pneumonia. 3. Renal failure. 4. Congestive heart failure. 5. Hypertension 6. Hypothyroidism 7. Previous G tube Assessment/Plan 1. Urinary tract infection. 2. mucous plugging and retained secretions; 3. Renal failure. 4. Hypertension. 5. Congestive heart failure. 6. Seizure History 7. Diabetes 8. Hypernatremia 9. EDGAR with elevated K 10. acute hypoxemic respiratory failure PLAN monitor CXR mobilize secretions suction PRN monitor in Med Surg BIPAP as needed monitor fluid status meds noted DNR oxygen as is respiratory care as is ID follow up prognosis poor close followup for change; prognosis guarded impression, plan, and exam edited and reviewed in detail care discussed with RN Subjective Allergies: Coded Allergies: No Known Allergies (Verified , 12/31/09) Subjective care noted events noted and discussed on NC per RT care confirmed DNR reviewed changes Objective Vital Signs Noted Objective WDWN on NC reduced breath sounds bilaterally [id number] without MRG NABS nontender no HSM no CC minimal edema nonfocal reduced LOC reviewed and edited Laboratory Tests Noted Medications Medications (Trade) Dose Ordered Sig/Aaron Route PRN Reason Start Time Stop Time Status Last Admin Dose Admin Aspirin (ASA) 81 mg DAILY GT 10/19/19 09:00 11/14/19 08:59 10/28/19 09:59 Atropine Sulfate (Atropine Opth Jami) 1 drop Q8HR SL 10/18/19 22:00 11/16/19 09:59 10/28/19 14:40 Clonidine HCl (Catapres Tab) 0.1 mg Q6H PRN GT SBP>160 10/18/19 21:08 11/17/19 21:07 Dextrose (Dextrose 50%) 25 ml Q30M PRN IV Hypoglycemia 10/21/19 14:45 11/20/19 14:44 Dextrose (Dextrose 50%) 50 ml Q30M PRN IV Hypoglycemia 10/21/19 14:45 11/20/19 14:44 Gabapentin (Neurontin) 100 mg BID@0900,2100 GT 10/18/19 22:00 11/17/19 21:59 10/28/19 09:59 Glycopyrrolate (Robinul) 0.2 mg Q8HR IV 10/18/19 22:00 11/16/19 13:59 10/28/19 14:40 Heparin Sodium (Porcine) (Heparin 5000 units/ml) 5,000 units EVERY 12 HOURS SUBQ 10/18/19 22:00 11/17/19 21:59 10/28/19 10:01 Insulin Aspart (NovoLOG) Q6HR SUBQ 10/24/19 00:00 11/20/19 16:29 10/28/19 11:57 Insulin Detemir (Levemir) 5 units BID SUBQ 10/24/19 10:00 11/23/19 09:59 10/28/19 10:07 Lactulose (Cephulac) 20 gm DAILYPRN PRN GT Constipation 10/18/19 21:09 11/17/19 21:08 Lansoprazole (Prevacid) 30 mg DAILY GT 10/19/19 09:00 11/14/19 08:59 10/28/19 09:58 Levetiracetam (Keppra) 1,000 mg BID@0900,2100 GT 10/18/19 22:00 11/17/19 21:59 10/28/19 09:59 Levothyroxine Sodium (Synthroid) 75 mcg DAILY@0630 GT 10/19/19 06:30 11/15/19 06:29 10/28/19 05:43 Linezolid (Zyvox) 600 mg EVERY 12 HOURS ORAL 10/25/19 11:00 10/30/19 10:59 10/28/19 09:58 Magnesium Hydroxide (Mom) 30 ml DAILYPRN PRN GT Constipation 10/18/19 21:10 11/17/19 21:09 Metoclopramide HCl (Reglan) 2.5 mg Q8HR IVP 10/18/19 22:00 11/17/19 21:59 10/28/19 14:40 Metoprolol Tartrate (Lopressor) 25 mg Q12HR ORAL 10/26/19 00:30 11/25/19 00:29 10/28/19 09:59 Polyethylene Glycol (Miralax) 17 gm BEDTIME GT 10/18/19 22:00 11/17/19 21:59 10/26/19 20:25 Subjective ROS Limited/Unobtainable: No Allergies: Coded Allergies: No Known Allergies (Verified , 12/31/09) Objective Last 24 Hour Vital Signs Date Time Temp Pulse Resp B/P (MAP) Pulse Ox O2 Delivery O2 Flow Rate FiO2 10/30/19 12:00 98.7 99 20 131/62 (85) 99 10/30/19 12:00 2.0 10/30/19 11:31 Nasal Cannula 2.0 10/30/19 09:22 101 109/67 10/30/19 08:00 98.7 101 20 109/67 (81) 96 10/30/19 08:00 2.0 10/30/19 04:33 97.8 74 18 137/74 (95) 98 10/30/19 03:43 2.0 40 10/30/19 00:00 98.7 78 20 147/78 (101) 94 10/29/19 21:44 Nasal Cannula 2.0 10/29/19 21:06 78 129/87 10/29/19 21:00 2.0 40 10/29/19 20:00 98.7 78 18 148/78 (101) 94 10/29/19 20:00 Nasal Cannula 2.0 10/29/19 19:41 99 Nasal Cannula 2.0 28 10/29/19 16:00 98.2 86 19 110/60 (77) 100 10/29/19 16:00 Nasal Cannula 2.0 Intake and Output 10/29/19 10/30/19 19:00 07:00 Intake Total 1250 ml 650 ml Output Total 650 ml 400 ml Balance 600 ml 250 ml Free Water 300 ml 100 ml Tube Feeding 650 ml 550 ml Other 300 ml Output Urine Total 500 ml 400 ml Gastric Drainage Total 150 ml Current Medications Medications (Trade) Dose Ordered Sig/Aaron Route PRN Reason Start Time Stop Time Status Last Admin Dose Admin Aspirin (ASA) 81 mg DAILY GT 10/29/19 09:00 11/14/19 08:59 10/30/19 09:21 Atropine Sulfate (Atropine Opth Jami) 1 drop Q8HR SL 10/29/19 14:00 11/16/19 09:59 10/30/19 14:52 Clonidine HCl (Catapres Tab) 0.1 mg Q6H PRN GT SBP>160 10/29/19 09:15 11/17/19 21:07 Dextrose (Dextrose 50%) 25 ml Q30M PRN IV Hypoglycemia 10/29/19 08:15 11/20/19 14:44 Dextrose (Dextrose 50%) 50 ml Q30M PRN IV Hypoglycemia 10/29/19 08:15 11/20/19 14:44 Gabapentin (Neurontin) 100 mg BID@0900,2100 GT 10/29/19 09:00 11/17/19 21:59 10/30/19 09:21 Glycopyrrolate (Robinul) 0.2 mg Q8HR IV 10/29/19 14:00 11/16/19 13:59 10/30/19 14:50 Heparin Sodium (Porcine) (Heparin 5000 units/ml) 5,000 units EVERY 12 HOURS SUBQ 10/29/19 09:00 11/17/19 21:59 10/30/19 09:23 Insulin Aspart (NovoLOG) Q6HR SUBQ 10/29/19 12:00 11/20/19 16:29 10/30/19 12:29 Insulin Detemir (Levemir) 5 units BID SUBQ 10/29/19 09:00 11/23/19 09:59 10/30/19 09:26 Lactulose (Cephulac) 20 gm DAILYPRN PRN GT Constipation 10/29/19 21:15 11/17/19 21:08 Lansoprazole (Prevacid) 30 mg DAILY GT 10/29/19 09:00 11/14/19 08:59 10/30/19 09:21 Levetiracetam (Keppra) 1,000 mg BID@0900,2100 GT 10/29/19 09:00 11/17/19 21:59 10/30/19 09:22 Levothyroxine Sodium (Synthroid) 75 mcg DAILY@0630 GT 10/30/19 06:00 11/15/19 05:59 10/30/19 05:49 Linezolid (Zyvox) 600 mg EVERY 12 HOURS ORAL 10/29/19 09:00 10/31/19 23:59 10/30/19 09:21 Magnesium Hydroxide (Mom) 30 ml DAILYPRN PRN GT Constipation 10/29/19 21:15 11/17/19 21:09 Metoclopramide HCl (Reglan) 2.5 mg Q8HR IVP 10/29/19 14:00 11/17/19 21:59 10/30/19 14:50 Metoprolol Tartrate (Lopressor) 25 mg Q12HR ORAL 10/29/19 09:00 11/25/19 00:29 10/30/19 09:22 Polyethylene Glycol (Miralax) 17 gm BEDTIME GT 10/29/19 21:00 11/17/19 21:59 10/29/19 21:06 Kavon Seals MD Oct 30, 2019 15:14
[2019-10-30 16:00] VITALS: BP 122/68
[2019-10-30 17:29] LABS: BASOPHILS % (AUTO) 0.6 % (0.0-2.0); HEMATOCRIT 30.3 % (37.0-47.0); HEMOGLOBIN 9.6 G/DL (12.0-16.0); LYMPHOCYTES % (AUTO) 22.2 % (20.0-45.0); MEAN CORPUSCULAR VOLUME 87 FL (80-99); MONOCYTES % (AUTO) 11.7 % (1.0-10.0); NEUTROPHILS % (AUTO) 63.5 % (45.0-75.0); PLATELET COUNT 573 K/UL (150-450); RED BLOOD COUNT 3.46 M/UL (4.20-5.40); RED CELL DISTRIBUTION WIDTH 15.6 % (11.6-14.8); WHITE BLOOD COUNT 8.4 K/UL (4.8-10.8)
[2019-10-30 17:46] LABS: ALANINE AMINOTRANSFERASE 10 U/L (12-78); ALBUMIN 2.4 G/DL (3.4-5.0); ALBUMIN/GLOBULIN RATIO 0.5 (1.0-2.7); ALKALINE PHOSPHATASE 105 U/L (46-116); ANION GAP 8 mmol/L (5-15); ASPARTATE AMINO TRANSFERASE 18 U/L (15-37); BILIRUBIN,TOTAL 0.3 MG/DL (0.2-1.0); BLOOD UREA NITROGEN 45 mg/dL (7-18); CALCIUM 8.9 MG/DL (8.5-10.1); CARBON DIOXIDE 34 MMOL/L (21-32); CHLORIDE 101 MMOL/L (98-107); CREATININE 2.4 MG/DL (0.55-1.30); POTASSIUM 4.6 MMOL/L (3.5-5.1); SODIUM 143 MMOL/L (136-145)
--- NOTE | 2019-10-30 19:12 | NUR ---
HAND-OFF: Report given to FELY Damico.
--- NOTE | 2019-10-30 19:20 | NUR ---
NURSE NOTES: Received patient asleep, no SOB, comfortable, tolerating her J-tube feeding well. Kept clean and dry.
[2019-10-30 20:22] VITALS: BP 125/58
[2019-10-30] MEDS: Miralax 17gm pkt GT SCH (21:09)
[2019-10-31] VITALS (8 sets, daily range): BP systolic 99–137; BP diastolic 50–71
--- NOTE | 2019-10-31 02:45 | Progress Note ---
DATE: 10/30/2019 CARDIOLOGY PROGRESS NOTE SUBJECTIVE: The patient's sister has requested DNR to be removed. Code status is now full. Tolerating feedings. No respiratory distress with minimal congestion. OBJECTIVE: VITAL SIGNS: Blood pressure 109/67, , respiratory rate 20, and heart rate in the range of 74 to 101. LUNGS: Bilateral breath sounds. Few rhonchi. CARDIAC: Regular rhythm and rate. Normal S1 and S2. ABDOMEN: Soft. GJ tube intact. EXTREMITIES: Trace edema. LABORATORY DATA: White count 8 and hemoglobin 9.6. Potassium 4.6, sodium 143, bicarbonate 34, BUN 45, and creatinine 2.4. Albumin 2.4. IMPRESSION: 1. Acute on chronic renal failure. 2. Hypertensive heart disease. 3. Chronic diastolic congestive heart failure. 4. Insulin-requiring diabetes mellitus, status post G to J-tube conversion. 5. Severe protein-calorie malnutrition. 6. Anemia of chronic disease and chronic kidney disease. PLAN: 1. Recheck renal function. 2. Maintain adequate hydration. 3. Titrate antihypertensive regimen. 4. Full Code. Kavon Peña M.D. DR: KEN JOB#: [id number] CC:
[2019-10-31] MEDS: NovoLOG Insulin Flexpen SUBQ SCH ×4 (05:15→23:54)
[2019-10-31] MEDS: Metoclopramide 10mg/2ml Inj IVP SCH ×3 (05:15→21:26)
[2019-10-31] MEDS: Glycopyrrolate 0.2mg/ml 1ml Vial IV SCH ×3 (05:15→21:26)
--- NOTE | 2019-10-31 07:00 | NUR ---
NURSE NOTES:NURSE NOTES handoff received from FELY Damico. Patient received sleeping in bed, no acute signs of distress noted, patient on 2 liters nasal cannula. Patient has Jtube and Gtube, with J tube running Glucerna 1.2 at 50ml/hr and Gtube connected to low intermittent suction. bed in the low and locked position with call light within reach, bed alarm is on, will continue to monitor patient.
--- NOTE | 2019-10-31 07:05 | NUR ---
HAND-OFF: Report given to Jesus Oliveira RN.
--- NOTE | 2019-10-31 07:21 | NUR ---
NURSE NOTES:Handoff received from FELY Martínez. Patient received awake and alert and able to make needs known, no acute signs of distress noted. Patient is on room air, patient has right subclavian port a cath running TKO fluids. Patient nephrostomy leaking- reinforced with Optifoam, patient also has Colonostomy. plan to replace Nephrostomy today. Patient did not eat breakfast per night RN. Will continue to monitor patient. Addendum: 10/31/19 at 0743 by Jesus Oliveira RN IGNORE, CHARTED ON WRONG PATIENT.
--- NOTE | 2019-10-31 07:27 | General Progress Note ---
Assessment/Plan Problem List: (1) Diabetes mellitus ICD Codes: E11.9 - Type 2 diabetes mellitus without complications SNOMED: 91012211 (2) Encephalopathy acute ICD Codes: G93.40 - Encephalopathy, unspecified SNOMED: 8797017 (3) Pneumonia ICD Codes: J18.9 - Pneumonia, unspecified organism SNOMED: 112078412 (4) HTN (hypertension) ICD Codes: I10 - Essential (primary) hypertension SNOMED: 26772237 (5) CHF (congestive heart failure) ICD Codes: I50.9 - Heart failure, unspecified SNOMED: 79049898 Qualifiers: Qualified Codes: I50.9 - Heart failure, unspecified (6) ARF (acute renal failure) ICD Codes: N17.9 - Acute kidney failure, unspecified SNOMED: 69774284 Qualifiers: Qualified Codes: N17.9 - Acute kidney failure, unspecified Status: stable Assessment/Plan: resp care/o2 suctioning monitor off bipap o2 monitor cxr iv abx diuresis per cards reglan j port to LIS monitor wbc insulin coverage clinically improving dc planning if labs ok Subjective ROS Limited/Unobtainable: Yes Constitutional: Reports: malaise, weakness HEENT: Reports: no symptoms Cardiovascular: Reports: no symptoms Respiratory: Reports: cough, sputum Gastrointestinal/Abdominal: Reports: difficulty swallowing Genitourinary: Reports: no symptoms Neurologic/Psychiatric: Reports: pre-existing deficit, seizure Endocrine: Reports: no symptoms Hematologic/Lymphatic: Reports: no symptoms Allergies: Coded Allergies: No Known Allergies (Verified , 12/31/09) All Systems: reviewed and negative except above Subjective no events. off bipap, minimal congestion and sob. tolerating feeds thru J tube. labs pending. Objective Last 24 Hour Vital Signs Date Time Temp Pulse Resp B/P (MAP) Pulse Ox O2 Delivery O2 Flow Rate FiO2 10/31/19 04:11 97.5 83 21 99/50 (66) 96 10/31/19 04:10 2.0 10/31/19 00:08 98.5 87 22 110/52 (71) 96 10/31/19 00:02 2.0 10/30/19 21:09 97 125/58 10/30/19 20:22 98.6 97 23 125/58 (80) 96 10/30/19 20:05 Nasal Cannula 2.0 10/30/19 20:05 2.0 10/30/19 19:37 96 Nasal Cannula 2.0 28 10/30/19 16:00 2.0 10/30/19 16:00 98.8 103 20 122/68 (86) 98 10/30/19 12:00 98.7 99 20 131/62 (85) 99 10/30/19 12:00 2.0 10/30/19 11:32 95 Nasal Cannula 2.0 28 10/30/19 11:31 Nasal Cannula 2.0 10/30/19 09:22 101 109/67 10/30/19 08:00 98.7 101 20 109/67 (81) 96 10/30/19 08:00 2.0 Intake and Output 10/30/19 10/31/19 19:00 07:00 Intake Total 50 ml 770 ml Output Total 500 ml Balance -450 ml 770 ml Free Water 220 ml Tube Feeding 50 ml 550 ml Output Urine Total 500 ml # Voids 2 # Bowel Movements 2 Laboratory Tests 10/30/19 17:15: White Blood Count 8.4, Red Blood Count 3.46L, Hemoglobin 9.6L, Hematocrit 30.3L , Mean Corpuscular Volume 87, Mean Corpuscular Hemoglobin 27.8, Mean Corpuscular Hemoglobin Concent 31.8L, Red Cell Distribution Width 15.6H, Platelet Count 573H, Mean Platelet Volume 5.2L, Neutrophils (%) (Auto) 63.5, Lymphocytes (%) (Auto) 22.2, Monocytes (%) (Auto) 11.7H, Eosinophils (%) (Auto) 2.0, Basophils (%) (Auto) 0.6, Sodium Level 143, Potassium Level 4.6, Chloride Level 101, Carbon Dioxide Level 34H, Anion Gap 8, Blood Urea Nitrogen 45H, Creatinine 2.4H, Estimat Glomerular Filtration Rate 23.5, Glucose Level 258H, Calcium Level 8.9, Total Bilirubin 0.3, Aspartate Amino Transf (AST/SGOT) 18, Alanine Aminotransferase (ALT/SGPT) 10L, Alkaline Phosphatase 105, Total Protein 7.5, Albumin 2.4L, Globulin 5.1, Albumin/Globulin Ratio 0.5L Height (Feet): 5 Height (Inches): 5.00 Weight (Pounds): 137 Objective General Appearance: WD/WN, alert, confused. on bipap Neck: supple Cardiovascular: normal rate Respiratory/Chest: decreased crackles/rales, rhonchi - bilaterally(less) Abdomen: normal bowel sounds, non tender, soft, no organomegaly Edema: no edema noted Arm (L), no edema noted Arm (R), no edema noted Leg (L), no edema noted Leg (R), no edema noted Pedal (L), no edema noted Pedal (R), no edema noted Generalized Neurologic: alert, disoriented, unresponsive, aphasia Jeffrey Crowder MD Oct 31, 2019 07:27
--- NOTE | 2019-10-31 07:50 | NUR ---
NURSE NOTES:Lab called to ask if labs entered from MD were to be timed or duplicate order, explained that the DR did not speak to me about the labs. Lab stated she would frank the order as duplicate order.
--- NOTE | 2019-10-31 08:19 | Pulmonology Progress Note ---
Assessment/Plan Assessment/Plan 1. Urinary tract infection. 2. mucous plugging and retained secretions; 3. Renal failure. 4. Hypertension. 5. Congestive heart failure. 6. Seizure History 7. Diabetes 8. Hypernatremia 9. EDGAR with elevated K 10. acute hypoxemic respiratory failure PLAN monitor CXR for change monitor labs mobilize secretions suction PRN monitor in SHAY BIPAP as needed monitor fluid status meds noted oxygen as is respiratory care as is ID follow up prognosis poor close followup for change; prognosis guarded impression, plan, and exam edited and reviewed in detail care discussed with RN Subjective ROS Limited/Unobtainable: Yes Allergies: Coded Allergies: No Known Allergies (Verified , 12/31/09) Subjective care noted events noted and discussed on NC per RT care full code by orders reviewed changes still with infiltrates on cxr Objective Last 24 Hour Vital Signs Date Time Temp Pulse Resp B/P (MAP) Pulse Ox O2 Delivery O2 Flow Rate FiO2 10/31/19 04:11 97.5 83 21 99/50 (66) 96 10/31/19 04:10 2.0 10/31/19 00:08 98.5 87 22 110/52 (71) 96 10/31/19 00:02 2.0 10/30/19 21:09 97 125/58 10/30/19 20:22 98.6 97 23 125/58 (80) 96 10/30/19 20:05 Nasal Cannula 2.0 10/30/19 20:05 2.0 10/30/19 19:37 96 Nasal Cannula 2.0 28 10/30/19 16:00 2.0 10/30/19 16:00 98.8 103 20 122/68 (86) 98 10/30/19 12:00 98.7 99 20 131/62 (85) 99 10/30/19 12:00 2.0 10/30/19 11:32 95 Nasal Cannula 2.0 28 10/30/19 11:31 Nasal Cannula 2.0 10/30/19 09:22 101 109/67 Intake and Output 10/30/19 10/31/19 19:00 07:00 Intake Total 50 ml 770 ml Output Total 500 ml Balance -450 ml 770 ml Free Water 220 ml Tube Feeding 50 ml 550 ml Output Urine Total 500 ml # Voids 2 # Bowel Movements 2 Objective WDWN on oxygen reduced breath sounds bilaterally with scattered rhonchi [id number] without MRG NABS nontender no HSM no CC mild edema nonfocal reduced LOC reviewed and edited Laboratory Tests 10/30/19 17:15: White Blood Count 8.4, Red Blood Count 3.46L, Hemoglobin 9.6L, Hematocrit 30.3L , Mean Corpuscular Volume 87, Mean Corpuscular Hemoglobin 27.8, Mean Corpuscular Hemoglobin Concent 31.8L, Red Cell Distribution Width 15.6H, Platelet Count 573H, Mean Platelet Volume 5.2L, Neutrophils (%) (Auto) 63.5, Lymphocytes (%) (Auto) 22.2, Monocytes (%) (Auto) 11.7H, Eosinophils (%) (Auto) 2.0, Basophils (%) (Auto) 0.6, Sodium Level 143, Potassium Level 4.6, Chloride Level 101, Carbon Dioxide Level 34H, Anion Gap 8, Blood Urea Nitrogen 45H, Creatinine 2.4H, Estimat Glomerular Filtration Rate 23.5, Glucose Level 258H, Calcium Level 8.9, Total Bilirubin 0.3, Aspartate Amino Transf (AST/SGOT) 18, Alanine Aminotransferase (ALT/SGPT) 10L, Alkaline Phosphatase 105, Total Protein 7.5, Albumin 2.4L, Globulin 5.1, Albumin/Globulin Ratio 0.5L 10/31/19 06:30: Sodium Level [Pending], Potassium Level [Pending], Chloride Level [Pending], Carbon Dioxide Level [Pending], Blood Urea Nitrogen [Pending], Creatinine [ Pending], Estimat Glomerular Filtration Rate [Pending], Glucose Level [Pending] , Calcium Level [Pending], Magnesium Level [Pending], Pro-B-Type Natriuretic Peptide [Pending] Current Medications Medications (Trade) Dose Ordered Sig/Aaron Route PRN Reason Start Time Stop Time Status Last Admin Dose Admin Aspirin (ASA) 81 mg DAILY GT 10/29/19 09:00 11/14/19 08:59 10/30/19 09:21 Atropine Sulfate (Atropine Opth Jami) 1 drop Q8HR SL 10/29/19 14:00 11/16/19 09:59 10/31/19 05:15 Clonidine HCl (Catapres Tab) 0.1 mg Q6H PRN GT SBP>160 10/29/19 09:15 3/12/20 21:07 Dextrose (Dextrose 50%) 25 ml Q30M PRN IV Hypoglycemia 10/29/19 08:15 11/20/19 14:44 Dextrose (Dextrose 50%) 50 ml Q30M PRN IV Hypoglycemia 10/29/19 08:15 11/20/19 14:44 Gabapentin (Neurontin) 100 mg BID@0900,2100 GT 10/29/19 09:00 11/17/19 21:59 10/30/19 21:09 Glycopyrrolate (Robinul) 0.2 mg Q8HR IV 10/29/19 14:00 11/16/19 13:59 10/31/19 05:15 Heparin Sodium (Porcine) (Heparin 5000 units/ml) 5,000 units EVERY 12 HOURS SUBQ 10/29/19 09:00 11/17/19 21:59 10/30/19 21:10 Insulin Aspart (NovoLOG) Q6HR SUBQ 10/29/19 12:00 11/20/19 16:29 10/30/19 23:26 Insulin Detemir (Levemir) 5 units BID SUBQ 10/29/19 09:00 11/23/19 09:59 10/30/19 17:07 Lactulose (Cephulac) 20 gm DAILYPRN PRN GT Constipation 10/29/19 21:15 11/17/19 21:08 Lansoprazole (Prevacid) 30 mg DAILY GT 10/29/19 09:00 11/14/19 08:59 10/30/19 09:21 Levetiracetam (Keppra) 1,000 mg BID@0900,2100 GT 10/29/19 09:00 11/17/19 21:59 10/30/19 21:09 Levothyroxine Sodium (Synthroid) 75 mcg DAILY@0630 GT 10/30/19 06:00 11/15/19 05:59 10/31/19 05:15 Linezolid (Zyvox) 600 mg EVERY 12 HOURS ORAL 10/29/19 09:00 10/31/19 23:59 10/30/19 21:09 Magnesium Hydroxide (Mom) 30 ml DAILYPRN PRN GT Constipation 10/29/19 21:15 11/17/19 21:09 Metoclopramide HCl (Reglan) 2.5 mg Q8HR IVP 10/29/19 14:00 11/17/19 21:59 10/31/19 05:15 Metoprolol Tartrate (Lopressor) 25 mg Q12HR ORAL 10/29/19 09:00 11/25/19 00:29 10/30/19 21:09 Polyethylene Glycol (Miralax) 17 gm BEDTIME GT 10/29/19 21:00 11/17/19 21:59 10/30/19 21:09 Torey Douglass MD Oct 31, 2019 08:19
[2019-10-31 08:28] LABS: ANION GAP 6 mmol/L (5-15); BLOOD UREA NITROGEN 44 mg/dL (7-18); CALCIUM 9.1 MG/DL (8.5-10.1); CARBON DIOXIDE 37 MMOL/L (21-32); CHLORIDE 102 MMOL/L (98-107); CREATININE 2.2 MG/DL (0.55-1.30); POTASSIUM 4.2 MMOL/L (3.5-5.1); SODIUM 145 MMOL/L (136-145)
[2019-10-31] MEDS: levETIRAcetam 500mg/5ml Liquid GT SCH ×2 (09:47→21:25)
[2019-10-31] MEDS: Aspirin Baby 81mg GT SCH (09:47)
[2019-10-31] MEDS: Heparin 5000 units/ml inj SUBQ SCH ×2 (09:48→21:26)
[2019-10-31] MEDS: Levemir Flexpen SUBQ SCH ×2 (09:52→18:02)
--- NOTE | 2019-10-31 10:19 | Infectious Diseases Prog Note ---
Assessment/Plan Assessment/Plan A; 1. Urinary tract infection with Pseudomonas treated 2. Acute renal failure. 3. Hypertension. 4. Congestive heart failure. 5. 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 DNR status 8. MRSA pneumonia PLAN: 1. Continue Linezolid Until tonight Subjective ROS Limited/Unobtainable: Yes Allergies: Coded Allergies: No Known Allergies (Verified , 12/31/09) Objective Vital Signs Last 24 Hour Vital Signs Date Time Temp Pulse Resp B/P (MAP) Pulse Ox O2 Delivery O2 Flow Rate FiO2 10/31/19 09:47 87 134/61 10/31/19 09:00 Nasal Cannula 2.0 10/31/19 09:00 2.0 10/31/19 08:00 97.6 87 18 134/61 (85) 97 10/31/19 04:11 97.5 83 21 99/50 (66) 96 10/31/19 04:10 2.0 10/31/19 00:08 98.5 87 22 110/52 (71) 96 10/31/19 00:02 2.0 10/30/19 21:09 97 125/58 10/30/19 20:22 98.6 97 23 125/58 (80) 96 10/30/19 20:05 Nasal Cannula 2.0 10/30/19 20:05 2.0 10/30/19 19:37 96 Nasal Cannula 2.0 28 10/30/19 16:00 2.0 10/30/19 16:00 98.8 103 20 122/68 (86) 98 10/30/19 12:00 98.7 99 20 131/62 (85) 99 10/30/19 12:00 2.0 10/30/19 11:32 95 Nasal Cannula 2.0 28 10/30/19 11:31 Nasal Cannula 2.0 Height (Feet): 5 Height (Inches): 5.00 Weight (Pounds): 137 General Appearance: no acute distress HEENT: mucous membranes moist Respiratory/Chest: lungs clear Cardiovascular: normal rate Abdomen: soft, non tender, other - GJ tube Extremities: no edema Neurologic/Psychiatric: aphasia Laboratory Tests Test 10/30/19 17:15 10/31/19 06:30 White Blood Count 8.4 K/UL (4.8-10.8) Red Blood Count 3.46 M/UL (4.20-5.40) L Hemoglobin 9.6 G/DL (12.0-16.0) L Hematocrit 30.3 % (37.0-47.0) L Mean Corpuscular Volume 87 FL (80-99) Mean Corpuscular Hemoglobin 27.8 PG (27.0-31.0) Mean Corpuscular Hemoglobin Concent 31.8 G/DL (32.0-36.0) L Red Cell Distribution Width 15.6 % (11.6-14.8) H Platelet Count 573 K/UL (150-450) H Mean Platelet Volume 5.2 FL (6.5-10.1) L Neutrophils (%) (Auto) 63.5 % (45.0-75.0) Lymphocytes (%) (Auto) 22.2 % (20.0-45.0) Monocytes (%) (Auto) 11.7 % (1.0-10.0) H Eosinophils (%) (Auto) 2.0 % (0.0-3.0) Basophils (%) (Auto) 0.6 % (0.0-2.0) Sodium Level 143 MMOL/L (136-145) 145 MMOL/L (136-145) Potassium Level 4.6 MMOL/L (3.5-5.1) 4.2 MMOL/L (3.5-5.1) Chloride Level 101 MMOL/L (98-107) 102 MMOL/L (98-107) Carbon Dioxide Level 34 MMOL/L (21-32) H 37 MMOL/L (21-32) H Anion Gap 8 mmol/L (5-15) 6 mmol/L (5-15) Blood Urea Nitrogen 45 mg/dL (7-18) H 44 mg/dL (7-18) H Creatinine 2.4 MG/DL (0.55-1.30) H 2.2 MG/DL (0.55-1.30) H Estimat Glomerular Filtration Rate 23.5 mL/min (>60) 25.9 mL/min (>60) Glucose Level 258 MG/DL (74-106) H 137 MG/DL (74-106) #H Calcium Level 8.9 MG/DL (8.5-10.1) 9.1 MG/DL (8.5-10.1) Total Bilirubin 0.3 MG/DL (0.2-1.0) Aspartate Amino Transf (AST/SGOT) 18 U/L (15-37) Alanine Aminotransferase (ALT/SGPT) 10 U/L (12-78) L Alkaline Phosphatase 105 U/L (46-116) Total Protein 7.5 G/DL (6.4-8.2) Albumin 2.4 G/DL (3.4-5.0) L Globulin 5.1 g/dL Albumin/Globulin Ratio 0.5 (1.0-2.7) L Magnesium Level 2.8 MG/DL (1.8-2.4) H Pro-B-Type Natriuretic Peptide 686 pg/mL (0-125) H Current Medications Medications (Trade) Dose Ordered Sig/Aaron Route PRN Reason Start Time Stop Time Status Last Admin Dose Admin Aspirin (ASA) 81 mg DAILY GT 10/29/19 09:00 11/14/19 08:59 10/31/19 09:47 Atropine Sulfate (Atropine Opth Jami) 1 drop Q8HR SL 10/29/19 14:00 11/16/19 09:59 10/31/19 05:15 Clonidine HCl (Catapres Tab) 0.1 mg Q6H PRN GT SBP>160 10/29/19 09:15 11/17/19 21:07 Dextrose (Dextrose 50%) 25 ml Q30M PRN IV Hypoglycemia 10/29/19 08:15 11/20/19 14:44 Dextrose (Dextrose 50%) 50 ml Q30M PRN IV Hypoglycemia 10/29/19 08:15 11/20/19 14:44 Gabapentin (Neurontin) 100 mg BID@0900,2100 GT 10/29/19 09:00 11/17/19 21:59 10/31/19 09:47 Glycopyrrolate (Robinul) 0.2 mg Q8HR IV 10/29/19 14:00 11/16/19 13:59 10/31/19 05:15 Heparin Sodium (Porcine) (Heparin 5000 units/ml) 5,000 units EVERY 12 HOURS SUBQ 10/29/19 09:00 11/17/19 21:59 10/31/19 09:48 Insulin Aspart (NovoLOG) Q6HR SUBQ 10/29/19 12:00 11/20/19 16:29 10/30/19 23:26 Insulin Detemir (Levemir) 5 units BID SUBQ 10/29/19 09:00 11/23/19 09:59 10/31/19 09:52 Lactulose (Cephulac) 20 gm DAILYPRN PRN GT Constipation 10/29/19 21:15 11/17/19 21:08 Lansoprazole (Prevacid) 30 mg DAILY GT 10/29/19 09:00 11/14/19 08:59 10/31/19 09:47 Levetiracetam (Keppra) 1,000 mg BID@0900,2100 GT 10/29/19 09:00 11/17/19 21:59 10/31/19 09:47 Levothyroxine Sodium (Synthroid) 75 mcg DAILY@0630 GT 10/30/19 06:00 11/15/19 05:59 10/31/19 05:15 Linezolid (Zyvox) 600 mg EVERY 12 HOURS ORAL 10/29/19 09:00 10/31/19 23:59 10/31/19 09:47 Magnesium Hydroxide (Mom) 30 ml DAILYPRN PRN GT Constipation 10/29/19 21:15 11/17/19 21:09 Metoclopramide HCl (Reglan) 2.5 mg Q8HR IVP 10/29/19 14:00 11/17/19 21:59 10/31/19 05:15 Metoprolol Tartrate (Lopressor) 25 mg Q12HR ORAL 10/29/19 09:00 11/25/19 00:29 10/31/19 09:47 Polyethylene Glycol (Miralax) 17 gm BEDTIME GT 10/29/19 21:00 11/17/19 21:59 10/30/19 21:09 Bay Richter MD Oct 31, 2019 10:19
--- NOTE | 2019-10-31 12:08 | NUR ---
NURSE NOTES:Dr Peña called and said patient is to be discharged today with continued hospital medications.
[2019-10-31] MEDS ORDERED: CLONIDINE0.1 MG ORAL (12:20)
[2019-10-31] MEDS ORDERED: ASPIRIN81 MG GT (12:20)
[2019-10-31] MEDS ORDERED: [UNRECOGNIZED DRUG - OTHER] IV (12:22)
[2019-10-31] MEDS ORDERED: NOVOLOG100 UNITS1 SUBQ (12:23)
[2019-10-31] MEDS ORDERED: LEVEMIR FL100 UNIT/1 SUBQ (12:25)
[2019-10-31] MEDS ORDERED: LACTULOSE20 GM/301 GT (12:26)
[2019-10-31] MEDS ORDERED: LANSOPRAZOLE30 MG GT (12:27)
[2019-10-31] MEDS ORDERED: KEPPRA1000 MG GT (12:29)
[2019-10-31] MEDS ORDERED: SYNTHROID75 MCG GT (12:30)
[2019-10-31] MEDS ORDERED: LINEZOLID600 MG GT (12:30)
[2019-10-31] MEDS ORDERED: METOCLOPRAM5 MG/1 M1 IVP (12:32)
[2019-10-31] MEDS ORDERED: METOPROLOL TART25 MG ORAL (12:33)
[2019-10-31] MEDS ORDERED: MIRALAX17 G2 ORAL (12:34)
--- NOTE | 2019-10-31 14:52 | NUR ---
CASE MANAGEMENT:DISCHARGE PLAN PATIENT REFERRED BACK TO [facility] P: [phone] D: [phone] Addendum: 11/01/19 at 0930 by STEWART EVANS LVN LVN LATE NOTE PER ALMA ROSA AT [facility], NO BEDS AVAILABLE. SHE WILL REACH OUT TO ANOTHER LOCATION FOR BED AVAILABILITY.
--- NOTE | 2019-10-31 15:31 | NUR ---
RD ASSESSMENT & RECOMMENDATIONS SEE CARE ACTIVITY FOR COMPLETE ASSESSMENT DAILY ESTIMATED NEEDS: Needs based on DM, wound, CHF, bedbound 57.4kg abw 23-30 kcals/kg 6256-5124 total kcals 1.25-1.5 g protein/kg 72-86 g total protein 20-25 mL/kg 9830-1319 total fluid mLs NUTRITION DIAGNOSIS: 1) Altered nutrition related lab values r/t DM, CKD, cardiac hx as evidenced by pt w/ elev BUN (90 ->44), Cr (2.2), elev BG (200's, 300's ->POC glu 108-237) elev BNP (4825 -> 686) 2) Swallowing difficulty r/t dysphagia as evidenced by pt is GT dep,now s/p GT-> Jt conversion. CURRENT TF:Glucerna 1.2 @50 x22 ENTERAL NUTRITION RECOMMENDATIONS: Glucerna 1.2 @ 60ml/hr x 22 hrs to provide 1320ml, 1584 kcal, 79g pro, 1063ml free H2O * As able advance by 5ml to goal rate of 60ml/hr x22 hrs to better meet est nutritional needs * Hold 1 hr before and after Synthroid med * HOB over 30 degrees/ water flush per MD Monitor lytes closely, need to change TF to Nepro ADDITIONAL RECOMMENDATIONS: 1) Monitor lytes closely, need for TF change (Pt on Nepro [employer]ING [employer]IST, possible h/o electrolyte imbalance) 2) Wound care- Maik 1pkt BID via PEG once pt tolerates TF 3) Calibrate bed scale for accurate wt (Per SNF, UR=100.8lbs) 4) Consider increasing Levemir for improved BG control . .
--- NOTE | 2019-10-31 16:52 | NUR ---
*-* INSURANCE *-* ALL CLINICALS AND REVIEWS HAVE BEEN FAXED TO: YUMIKO MONTOYA:CHUCK REF# [id number] # [phone] FAX# [phone] REVIEWS/CLINICALS
--- NOTE | 2019-10-31 19:13 | NUR ---
HAND-OFF: Report given to FELY Damico.
--- NOTE | 2019-10-31 19:47 | NUR ---
NURSE NOTES: Received patient awake, confused, non-verbal, resting in bed, no SOB, tolerating her J-tube feeding well.
[2019-10-31] MEDS: Miralax 17gm pkt GT SCH (21:25)
--- NOTE | 2019-10-31 21:35 | General Progress Note ---
Assessment/Plan Status: stable Assessment/Plan: Assessment - DM - h/o gastroparesis and GT TF intolerance - s/p G-J conversion - tolerated J port fees - OBS - resp distress, presumed due to reflux of gastric contents - contracted Recommendations - TF via j port - abx - pulm toilet - G tube to LIS to protect against aspiration - Elevate HOB Subjective Allergies: Coded Allergies: No Known Allergies (Verified , 12/31/09) Subjective above noted tolerating J feeds d/w staff educator Objective Last 24 Hour Vital Signs Date Time Temp Pulse Resp B/P (MAP) Pulse Ox O2 Delivery O2 Flow Rate FiO2 10/31/19 21:00 93 105/56 10/31/19 20:30 Nasal Cannula 2.0 10/31/19 20:30 2.0 10/31/19 20:20 96 Nasal Cannula 2.0 28 10/31/19 20:00 98.1 93 18 105/56 (72) 98 10/31/19 16:00 2.0 10/31/19 16:00 97.6 84 18 137/68 (91) 98 10/31/19 12:00 2.0 10/31/19 12:00 97.5 82 19 130/68 (88) 100 10/31/19 10:59 96 Nasal Cannula 2.0 28 10/31/19 10:58 75 16 99 Nasal Cannula 2.0 28 10/31/19 09:47 87 134/61 10/31/19 09:00 Nasal Cannula 2.0 10/31/19 09:00 2.0 10/31/19 08:00 97.6 87 18 134/61 (85) 97 10/31/19 04:11 97.5 83 21 99/50 (66) 96 10/31/19 04:10 2.0 10/31/19 00:08 98.5 87 22 110/52 (71) 96 10/31/19 00:02 2.0 Intake and Output 10/30/19 10/31/19 19:00 07:00 Intake Total 50 ml 770 ml Output Total 500 ml Balance -450 ml 770 ml Free Water 220 ml Tube Feeding 50 ml 550 ml Output Urine Total 500 ml # Voids 2 # Bowel Movements 2 Laboratory Tests 10/31/19 06:30: Sodium Level 145, Potassium Level 4.2, Chloride Level 102, Carbon Dioxide Level 37H, Anion Gap 6, Blood Urea Nitrogen 44H, Creatinine 2.2H, Estimat Glomerular Filtration Rate 25.9, Glucose Level 137#H, Calcium Level 9.1, Magnesium Level 2.8H, Pro-B-Type Natriuretic Peptide 686H Height (Feet): 5 Height (Inches): 5.00 Weight (Pounds): 137 Objective confused bedbound, contracted coarse BS RR abd soft, (+) GJ tube ext contracted and stiff OBS Darrell Griffith MD Oct 31, 2019 21:35
--- NOTE | 2019-11-01 02:30 | Progress Note ---
DATE: 10/31/2019 CARDIOLOGY PROGRESS NOTE SUBJECTIVE: The patient is awaiting transfer to care home facility for long-term care. OBJECTIVE: VITAL SIGNS: Blood pressure 105/56, heart rate 93, respiratory rate 18, afebrile, and oxygen saturation on 2 L 96%. NECK: Few rhonchi. Good breath sounds. CARDIAC: Regular rhythm and rate. Normal S1, S2 with a 1/6 systolic murmur at base. ABDOMEN: Soft, nontender. GJ-tube intact. IMPRESSION: 1. Chronic encephalopathy due to cerebrovascular disease. 2. Dysphagia with GJ-tube. 3. Severe protein-calorie malnutrition, on supplements. 4. Hypertensive heart disease with stabilized blood pressure control. 5. Dehydration. 6. Hypernatremia, corrected. 7. Prerenal azotemia. 8. Acute on chronic kidney injury and contraction alkalosis, continuing to require volume support. 9. Chronic diastolic congestive heart failure, compensated. 10. Disposition, care home facility once bed is secured. Kavon Peña M.D. DR: Kenia JOB#: [id number] CC:
[2019-11-01 04:23] VITALS: BP 137/51
[2019-11-01] MEDS: Glycopyrrolate 0.2mg/ml 1ml Vial IV SCH (05:43)
[2019-11-01] MEDS: Metoclopramide 10mg/2ml Inj IVP SCH (05:43)
[2019-11-01] MEDS: NovoLOG Insulin Flexpen SUBQ SCH ×2 (05:44→12:44)
--- NOTE | 2019-11-01 05:45 | NUR ---
NURSE NOTES: Blood sugar-64, 1 cup orange juice given, Dr Crowder informed.
--- NOTE | 2019-11-01 06:31 | NUR ---
NURSE NOTES: Re-checked blood sugar-94. Dr Crowder notified.
--- NOTE | 2019-11-01 07:10 | NUR ---
NURSE NOTES handoff received from FELY Damico. Patient received sleeping in bed, no acute signs of distress noted, patient on 2 liters nasal cannula. Patient has Jtube and Gtube, with J tube on hold as Synthroid given, will restart feeding at 0730 and reconnected Gtube to low intermittent suction. bed in the low and locked position with call light within reach, bed alarm is on, will continue to monitor patient.
--- NOTE | 2019-11-01 07:11 | NUR ---
HAND-OFF: Report given to Jesus Oliveira RN.
--- NOTE | 2019-11-01 07:43 | NUR ---
NURSE NOTES:restarted Jtube feeding and reconnected intermittent suction to Gtube.
[2019-11-01 08:00] VITALS: BP 130/59
[2019-11-01] MEDS: levETIRAcetam 500mg/5ml Liquid GT SCH (09:02)
[2019-11-01] MEDS: Aspirin Baby 81mg GT SCH (09:02)
[2019-11-01] MEDS: Heparin 5000 units/ml inj SUBQ SCH (09:03)
--- NOTE | 2019-11-01 09:08 | Pulmonology Progress Note ---
Assessment/Plan Assessment/Plan 1. Urinary tract infection. 2. mucous plugging and retained secretions; 3. Renal failure. 4. Hypertension. 5. Congestive heart failure. 6. Seizure History 7. Diabetes 8. Hypernatremia 9. EDGAR with elevated K 10. acute hypoxemic respiratory failure PLAN monitor CXR monitor labs mobilize secretions suction PRN monitor on med floor for now BIPAP as needed monitor fluid status meds noted oxygen as is respiratory care and close follow up remains fragile recommend advance directives ID follow up prognosis poor close followup for change; prognosis guarded impression, plan, and exam edited and reviewed in detail care discussed with RN Subjective Allergies: Coded Allergies: No Known Allergies (Verified , 12/31/09) Subjective care noted overnight care reviewed on NC per RT care full code by orders reviewed changes repeat imaging pending Objective Last 24 Hour Vital Signs Date Time Temp Pulse Resp B/P (MAP) Pulse Ox O2 Delivery O2 Flow Rate FiO2 11/01/19 08:42 Nasal Cannula 2.0 11/01/19 08:00 2.0 11/01/19 08:00 98.3 83 18 130/59 (82) 98 11/01/19 04:23 98.0 78 17 137/51 (79) 97 11/01/19 04:00 2.0 10/31/19 23:56 98.3 97 19 112/71 (85) 98 10/31/19 23:55 2.0 10/31/19 21:00 93 105/56 10/31/19 20:30 Nasal Cannula 2.0 10/31/19 20:30 2.0 10/31/19 20:20 96 Nasal Cannula 2.0 28 10/31/19 20:00 98.1 93 18 105/56 (72) 98 10/31/19 16:00 2.0 10/31/19 16:00 97.6 84 18 137/68 (91) 98 10/31/19 12:00 2.0 10/31/19 12:00 97.5 82 19 130/68 (88) 100 10/31/19 10:59 96 Nasal Cannula 2.0 28 10/31/19 10:58 75 16 99 Nasal Cannula 2.0 28 10/31/19 09:47 87 134/61 Intake and Output 10/31/19 11/01/19 19:00 07:00 Intake Total 300 ml 770 ml Output Total 200 ml Balance 100 ml 770 ml Free Water 200 ml 220 ml Tube Feeding 100 ml 550 ml Gastric Drainage Total 200 ml # Voids 2 # Bowel Movements 1 1 Objective WDWN on oxygen reduced breath sounds bilaterally with scattered rhonchi [id number] without MRG NABS nontender no HSM no CC mild edema nonfocal reduced LOC reviewed and edited Current Medications Medications (Trade) Dose Ordered Sig/Aaron Route PRN Reason Start Time Stop Time Status Last Admin Dose Admin Aspirin (ASA) 81 mg DAILY GT 10/29/19 09:00 11/14/19 08:59 10/31/19 09:47 Atropine Sulfate (Atropine Opth Jami) 1 drop Q8HR SL 10/29/19 14:00 11/16/19 09:59 11/01/19 05:44 Clonidine HCl (Catapres Tab) 0.1 mg Q6H PRN GT SBP>160 10/29/19 09:15 11/17/19 21:07 Dextrose (Dextrose 50%) 25 ml Q30M PRN IV Hypoglycemia 10/29/19 08:15 11/20/19 14:44 Dextrose (Dextrose 50%) 50 ml Q30M PRN IV Hypoglycemia 10/29/19 08:15 11/20/19 14:44 Gabapentin (Neurontin) 100 mg BID@0900,2100 GT 10/29/19 09:00 11/17/19 21:59 10/31/19 21:25 Glycopyrrolate (Robinul) 0.2 mg Q8HR IV 10/29/19 14:00 11/16/19 13:59 11/01/19 05:43 Heparin Sodium (Porcine) (Heparin 5000 units/ml) 5,000 units EVERY 12 HOURS SUBQ 10/29/19 09:00 11/17/19 21:59 10/31/19 21:26 Insulin Aspart (NovoLOG) Q6HR SUBQ 10/29/19 12:00 11/20/19 16:29 10/31/19 18:02 Insulin Detemir (Levemir) 5 units BID SUBQ 11/01/19 18:00 11/23/19 17:59 Lactulose (Cephulac) 20 gm DAILYPRN PRN GT Constipation 10/29/19 21:15 11/17/19 21:08 Lansoprazole (Prevacid) 30 mg DAILY GT 10/29/19 09:00 11/14/19 08:59 10/31/19 09:47 Levetiracetam (Keppra) 1,000 mg BID@0900,2100 GT 10/29/19 09:00 11/17/19 21:59 10/31/19 21:25 Levothyroxine Sodium (Synthroid) 75 mcg DAILY@0630 GT 10/30/19 06:00 11/15/19 05:59 11/01/19 05:43 Magnesium Hydroxide (Mom) 30 ml DAILYPRN PRN GT Constipation 10/29/19 21:15 11/17/19 21:09 Metoclopramide HCl (Reglan) 2.5 mg Q8HR IVP 10/29/19 14:00 11/17/19 21:59 11/01/19 05:43 Metoprolol Tartrate (Lopressor) 25 mg Q12HR ORAL 10/29/19 09:00 11/25/19 00:29 10/31/19 09:47 Polyethylene Glycol (Miralax) 17 gm BEDTIME GT 10/29/19 21:00 11/17/19 21:59 10/31/19 21:25 Torey Douglass MD Nov 01, 2019 09:07
--- NOTE | 2019-11-01 10:54 | Infectious Diseases Prog Note ---
Assessment/Plan Assessment/Plan antibiotics : linezolid 2.18.20 - A 1. pseudomonas UTI s/p rx 2. renal failure improving 3. hypertension 4. CHF 5. aspiration pneumonia with MRSA 6. leucocytosis resolved P 1. d/c linezolid 2. observe off antibiotics Subjective ROS Limited/Unobtainable: Yes Allergies: Coded Allergies: No Known Allergies (Verified , 12/31/09) Objective Vital Signs Last 24 Hour Vital Signs Date Time Temp Pulse Resp B/P (MAP) Pulse Ox O2 Delivery O2 Flow Rate FiO2 11/01/19 09:02 83 130/59 11/01/19 08:42 Nasal Cannula 2.0 11/01/19 08:00 2.0 11/01/19 08:00 98.3 83 18 130/59 (82) 98 11/01/19 07:00 100 Nasal Cannula 2.0 28 11/01/19 04:23 98.0 78 17 137/51 (79) 97 11/01/19 04:00 2.0 10/31/19 23:56 98.3 97 19 112/71 (85) 98 10/31/19 23:55 2.0 10/31/19 21:00 93 105/56 10/31/19 20:30 Nasal Cannula 2.0 10/31/19 20:30 2.0 10/31/19 20:20 96 Nasal Cannula 2.0 28 10/31/19 20:00 98.1 93 18 105/56 (72) 98 10/31/19 16:00 2.0 10/31/19 16:00 97.6 84 18 137/68 (91) 98 10/31/19 12:00 2.0 10/31/19 12:00 97.5 82 19 130/68 (88) 100 10/31/19 10:59 96 Nasal Cannula 2.0 28 10/31/19 10:58 75 16 99 Nasal Cannula 2.0 28 Height (Feet): 5 Height (Inches): 5.00 Weight (Pounds): 137 Respiratory/Chest: lungs clear Cardiovascular: normal rate, regular rhythm, no gallop/murmur Abdomen: soft, non tender, other - GT Extremities: no edema Current Medications Medications (Trade) Dose Ordered Sig/Aaron Route PRN Reason Start Time Stop Time Status Last Admin Dose Admin Aspirin (ASA) 81 mg DAILY GT 10/29/19 09:00 11/14/19 08:59 11/01/19 09:02 Atropine Sulfate (Atropine Opth Jami) 1 drop Q8HR SL 10/29/19 14:00 11/16/19 09:59 11/01/19 05:44 Clonidine HCl (Catapres Tab) 0.1 mg Q6H PRN GT SBP>160 10/29/19 09:15 11/17/19 21:07 Dextrose (Dextrose 50%) 25 ml Q30M PRN IV Hypoglycemia 10/29/19 08:15 11/20/19 14:44 Dextrose (Dextrose 50%) 50 ml Q30M PRN IV Hypoglycemia 10/29/19 08:15 11/20/19 14:44 Gabapentin (Neurontin) 100 mg BID@0900,2100 GT 10/29/19 09:00 11/17/19 21:59 11/01/19 09:02 Glycopyrrolate (Robinul) 0.2 mg Q8HR IV 10/29/19 14:00 11/16/19 13:59 11/01/19 05:43 Heparin Sodium (Porcine) (Heparin 5000 units/ml) 5,000 units EVERY 12 HOURS SUBQ 10/29/19 09:00 11/17/19 21:59 11/01/19 09:03 Insulin Aspart (NovoLOG) Q6HR SUBQ 10/29/19 12:00 11/20/19 16:29 10/31/19 18:02 Insulin Detemir (Levemir) 5 units BID SUBQ 11/01/19 18:00 11/23/19 17:59 Lactulose (Cephulac) 20 gm DAILYPRN PRN GT Constipation 10/29/19 21:15 11/17/19 21:08 Lansoprazole (Prevacid) 30 mg DAILY GT 10/29/19 09:00 11/14/19 08:59 11/01/19 09:02 Levetiracetam (Keppra) 1,000 mg BID@0900,2100 GT 10/29/19 09:00 11/17/19 21:59 11/01/19 09:02 Levothyroxine Sodium (Synthroid) 75 mcg DAILY@0630 GT 10/30/19 06:00 11/15/19 05:59 11/01/19 05:43 Magnesium Hydroxide (Mom) 30 ml DAILYPRN PRN GT Constipation 10/29/19 21:15 11/17/19 21:09 Metoclopramide HCl (Reglan) 2.5 mg Q8HR IVP 10/29/19 14:00 11/17/19 21:59 11/01/19 05:43 Metoprolol Tartrate (Lopressor) 25 mg Q12HR ORAL 10/29/19 09:00 11/25/19 00:29 11/01/19 09:02 Polyethylene Glycol (Miralax) 17 gm BEDTIME GT 10/29/19 21:00 11/17/19 21:59 10/31/19 21:25 Tyrel Prieto MD Nov 01, 2019 10:54
--- NOTE | 2019-11-01 11:35 | NUR ---
*-*DISCHARGE PLAN-*-* PATIENT HAS BEEN ACCEPTED BACK TO: [facility] P: [phone] D: [phone] ROOM# 16.B [facility] S[facility]W [id number] EAT 12:45PM/ 1245PM Addendum: 11/01/19 at 1138 by KADEEM CERDA CM *-*DISCHARGE PLAN-*-* PATIENT IS BEING DISCHARGED BACK TO: [facility] P: [phone] D: [phone] ROOM# 16.[facility] S[facility]W [id number] EAT 12:45PM/ 1245PM
[2019-11-01 12:00] VITALS: BP 133/64
--- NOTE | 2019-11-01 12:37 | NUR ---
NURSE NOTES:m Called Dr Griffith as patient is on low intermittent continuos suction, the facility cannot provide this. wanted to see if patient is still okay to be discharged, stated that Gtube must be suctioned/ open to gravity. will call roxanna fulton and update.
--- NOTE | 2019-11-01 13:00 | NUR ---
NURSE NOTES: called [facility] and spoke to Ann, explained that patient's G tube must be open to gravity to allow gastric secretions to drain, also explained that the Gtube should be clamped for 1 hour after administering meds through the Gtube. explained that the Jtube is NOT for meds but for tube feedings only. Also explained that Both the J and G tube needs to be flushed every 4 hours with 50ml of water.
--- NOTE | 2019-11-01 13:20 | NUR ---
NURSE NOTES: Patient discharged and left via gurney with EMS, patient left with the G tube open to gravity, explained to EMS that Gtube cannot be clamped per MD orders, except for 1 hour after meds. Patient left stable, IV removed slight bleeding noted, pressure applied until bleeding stopped, applied gauze. Patient did not have any belongings and was unable to sign the belongings list.
[2019-11-01] MEDS ORDERED: Levemir Flexpen SUBQ SCH (18:00)
--- NOTE | 2019-11-01 22:30 | Progress Note ---
DATE: 11/01/2019 CARDIOLOGY PROGRESS NOTE SUBJECTIVE: The patient's condition has improved. No respiratory distress. Tolerating feedings. Blood pressure parameters stable. OBJECTIVE: VITAL SIGNS: Blood pressure 130/59, pulse 83, respiratory rate 18, and oxygen saturation adequate on 2 liters. No hypoxia on room air. LUNGS: Good breath sounds. No wheezing. CARDIAC: Regular rhythm and rate. Normal S1, S2. ABDOMEN: Soft. EXTREMITIES: No edema. ASSESSMENT AND PLAN: 1. The patient will continue with free water replacement by G-tube at group home facility as well as usual nutrition. 2. No maintenance diuretic therapy has recommended. 3. Cardiovascular regimen reviewed and discussed with Dr. Crowder. Kavon Peña M.D. DR: MESHA JOB#: [id number] CC:
--- NOTE | 2019-11-01 23:30 | Discharge Summary ---
DATE OF ADMISSION: 10/15/2019 DATE OF DISCHARGE: 11/01/2019 ADMISSION DIAGNOSES: 1. Pneumonia. 2. Congestion. 3. History of cerebral palsy. 4. Hypertension. 5. Chronic kidney disease. 6. Stroke. 7. Seizure disorder. 8. Diabetes. 9. Congestive heart failure. 10. Encephalopathy. 11. Anemia. DISCHARGE DIAGNOSES: 1. Pneumonia. 2. Congestion. 3. History of cerebral palsy. 4. Hypertension. 5. Chronic kidney disease. 6. Stroke. 7. Seizure disorder. 8. Diabetes . 9. Congestive heart failure. 10. Encephalopathy. 11. Anemia. 12. Status post G-tube placement. HOSPITAL COURSE: The patient is a pleasant but unfortunate female with a history of encephalopathy, stroke diabetes, dysphagia status post G-tube. She has prior history of stroke, chronic kidney disease, congestive heart failure. She was [facility] a [facility] facility with complaints of congestion. She was diagnosed with pneumonia. She was initially admitted to a monitored bed. She received intravenous antibiotics. She had received respiratory treatments. Her G-tube became clogged and was switched out for J-tube which she had consistent high residuals and episodes of vomiting with congestion. She had respiratory failure prompting placement on BiPAP for 24 to 48 hours. Feeds were held and she was hydrated cautiously. She underwent placement of J-tube and after placement of the J-tube, she tolerated feedings with J-tube low intermittent suction. She was stable upon discharge. She will be discharged back to her regular jail facility. She will follow up there in one to two days. DISCHARGE MEDICATIONS: Please see discharge list for discharge medications. DIET: J-tube feedings. ACTIVITIES: Ad-emily. FOLLOWUP: The patient to followup in one to two days at jail facility. Jeffrey Crowder M.D. DR: Elsi JOB#: [id number] CC:
== END 2019-11-01 13:27 | DRG 137 ==
LOC: EDBD 23:48 → EDUNIT# 23:48 → EMR 23:59 → 2E 10-15 02:46 → EDBEDREQ 10-15 02:56 → 2E 10-18 12:03 → 4E 10-18 20:28 → 2W 10-22 05:52 → 4E 10-29 06:45
PROC: 0D20XUZ Change Feeding Device in Upper Intestinal Tract, External Approach (ICD-10-PCS; 2019-10-16)
PROC: 0DHA8UZ Insertion of Feeding Device into Jejunum, Via Natural or Artificial Opening Endoscopic (ICD-10-PCS; principal; 2019-10-21)
PROC: 0DD68ZX Extraction of Stomach, Via Natural or Artificial Opening Endoscopic, Diagnostic (ICD-10-PCS; principal; 2019-10-21)
DX: J69.0 Pneumonitis due to inhalation of food and vomit (principal); G92 Toxic encephalopathy; N17.9 Acute kidney failure, unspecified; J15.212 Pneumonia due to Methicillin resistant Staphylococcus aureus; G80.9 Cerebral palsy, unspecified; I13.0 Hypertensive heart and chronic kidney disease with heart failure and stage 1 through stage 4 chronic kidney disease, or unspecified chronic kidney disease; I50.32 Chronic diastolic (congestive) heart failure; N18.9 Chronic kidney disease, unspecified; E11.22 Type 2 diabetes mellitus with diabetic chronic kidney disease; E11.65 Type 2 diabetes mellitus with hyperglycemia; E11.40 Type 2 diabetes mellitus with diabetic neuropathy, unspecified; Z86.73 Personal history of transient ischemic attack (TIA), and cerebral infarction without residual deficits; G40.909 Epilepsy, unspecified, not intractable, without status epilepticus; N39.0 Urinary tract infection, site not specified; B96.5 Pseudomonas (aeruginosa) (mallei) (pseudomallei) as the cause of diseases classified elsewhere; Z66 Do not resuscitate; D64.9 Anemia, unspecified; E87.6 Hypokalemia; R13.10 Dysphagia, unspecified; K94.23 Gastrostomy malfunction; E87.0 Hyperosmolality and hypernatremia; E86.0 Dehydration; E87.8 Other disorders of electrolyte and fluid balance, not elsewhere classified; E87.3 Alkalosis; E43 Unspecified severe protein-calorie malnutrition; Z68.22 Body mass index [BMI] 22.0-22.9, adult; K31.84 Gastroparesis; K29.70 Gastritis, unspecified, without bleeding
CPT/HCPCS: 36415; 36600; 71045; 71250; 80048; 80053; 81003; 82803; 82962; 83540; 83550; 83735; 83880; 84443; 84484; 85007; 85025; 87040; 87070; 87081; 87086; 87181; 87205; 93005; 93306; 94003; 94150; 94640; 94660; 94664; 96374; 99285; J1815; J2765; J7620; J8499; S5561

== ENCOUNTER 2019-11-02 20:15 | Inpatient (IN) | payer MEDICARE, MEDICAID ==
[~2019-11-02] VITALS: Ht 162.6 cm; Wt 70.1 kg
[2019-11-02] VITALS: BP 117/68
[2019-11-02 20:15] VITALS: BP 124/62
[~2019-11-02 20:15] MED LIST changes: +ASPIRIN81 MG GT; +CLONIDINE0.1 MG ORAL; +LANSOPRAZOLE30 MG GT; +LINEZOLID600 MG GT; +METOCLOPRAM5 MG/1 M1 IVP; +METOPROLOL TART25 MG ORAL; +MIRALAX17 G2 ORAL; +SYNTHROID75 MCG GT; +[UNRECOGNIZED DRUG - OTHER] IV
--- NOTE | 2019-11-02 20:15 | NUR ---
ED Nurse Note: Patient brought in by ambulance RA68 d/t low O2 sat, per EMS patient sats at 80-85% on room air prior to arrival. Patient nonverbal and arousable only to deep pain. Patient nonambulatory, full assist. Right hand 22g IV established, blood collected and sent to lab. Urine and swabs sent to lab. Patient has a left lower abdomen G-tube, patent and draining. Patient placed in gown and on assistant professor of art. Patient stable upon assessment.
--- NOTE | 2019-11-02 20:44 | Emergency Room Report ---
History of Present Illness General Chief Complaint: Dyspnea/Respdistress Source: Medical Record, EMS (Jose Miguel Olson MD) Present Illness HPI 79-year-old female presents ED for evaluation. Brought in by EMS from shelter facility. Reportedly hypoxic per nursing staff today. Placed on nonrebreather mask. Patient arrives with improved O2 sats. Appears altered. Patient unable provide any additional history at this time. Recently discharged here for treatment of pneumonia. No signs of distress on arrival. No reported fevers or chills. No other aggravating relieving factors. Denies any other associated symptoms (Jose Miguel Olson MD) Allergies: Coded Allergies: No Known Allergies (Verified , 12/31/09) Patient History Past Medical History: none, DM, HTN, CHF Past Surgical History: none Pertinent Family History: none Social History: Denies: smoking, alcohol use, drug use Last Menstrual Period: n/a Now: No Immunizations: UTD Reviewed Nursing Documentation: PMH: Agreed; PSxH: Agreed (Jose Miguel Olson MD) Nursing Documentation-PMH Past Medical History: No History, Except For Hx Cardiac Problems: Yes - CHf; anemia Hx Hypertension: Yes Hx Pacemaker: No Hx Asthma: No Hx COPD: No Hx Diabetes: Yes Hx Cancer: No Hx Dialysis: No - CKD Hx Neurological Problems: Yes - hypothyroid Hx Cerebrovascular Accident: No Hx Seizures: No Hx Cerebral Palsy: Yes (Jose Miguel Olson MD) Review of Systems All Other Systems: limited (Jose Miguel Olson MD) Physical Exam Vital Signs Date Time Temp Pulse Resp B/P (MAP) Pulse Ox O2 Delivery O2 Flow Rate FiO2 11/02/19 20:11 99.5 101 25 158/98 (118) 92 Non-Rebreather 15.0 Sp02 EP Interpretation: reviewed, normal General Appearance: GCS 15, non-toxic, lethargic Head: normocephalic, atraumatic Eyes: bilateral eye normal inspection, bilateral eye PERRL ENT: hearing grossly normal, normal pharynx, no angioedema, normal voice Neck: full range of motion, supple/symm/no masses Respiratory: chest non-tender, crackles, rales, speaking full sentences Cardiovascular #1: regular rate, rhythm, no edema Cardiovascular #2: 2+ carotid (R), 2+ carotid (L), 2+ radial (R), 2+ radial (L) , 2+ dorsalis pedis (R), 2+ dorsalis pedis (L) Gastrointestinal: normal bowel sounds, non tender, soft, non-distended, no guarding, no rebound Rectal: deferred Genitourinary: normal inspection, no CVA tenderness Musculoskeletal: back normal, non-tender Neurologic: other - nonverbal Psychiatric: other - nonverbal Reflexes: 3+ bicep (R), 3+ bicep (L), 3+ tricep (R), 3+ tricep (L), 3+ knee (R) , 3+ knee (L) Skin: other - see nursing skin notes Lymphatic: no adenopathy (Jose Miguel Olson MD) Medical Decision Making Medicare Attestation The history of Venessa Ugalde has been reviewed and management options for her have been examined and discussed by Jose Miguel Olson. I have personally examined and interviewed the patient. (Jose Miguel Olson MD) Diagnostic Impression: Primary Impression: Dyspnea Additional Impression: CHF (congestive heart failure) ER Course Patient is a fairly complex patient with multiple differential to consideration including but not limited to cardiac cardiopulmonary and vascular emergencies Please refer to the initial note for the initial presentation Patient's ABG reveals a compensated normal pH Patient is on 2 L nasal cannula and doing well X-ray shows some mild congestion however it appears mildly improved from previous Diuretics are provided and patient admitted for further care and observation status Labs Test 11/02/19 20:22 11/02/19 20:45 11/02/19 20:56 White Blood Count 15.3 K/UL (4.8-10.8) Red Blood Count 3.62 M/UL (4.20-5.40) Hemoglobin 10.0 G/DL (12.0-16.0) Hematocrit 32.5 % (37.0-47.0) Mean Corpuscular Volume 90 FL (80-99) Mean Corpuscular Hemoglobin 27.7 PG (27.0-31.0) Mean Corpuscular Hemoglobin Concent 30.9 G/DL (32.0-36.0) Red Cell Distribution Width 17.8 % (11.6-14.8) Platelet Count 699 K/UL (150-450) Mean Platelet Volume 5.9 FL (6.5-10.1) Neutrophils (%) (Auto) 72.8 % (45.0-75.0) Lymphocytes (%) (Auto) 18.2 % (20.0-45.0) Monocytes (%) (Auto) 6.4 % (1.0-10.0) Eosinophils (%) (Auto) 1.3 % (0.0-3.0) Basophils (%) (Auto) 1.3 % (0.0-2.0) Sodium Level 147 MMOL/L (136-145) Potassium Level 5.1 MMOL/L (3.5-5.1) Chloride Level 97 MMOL/L (98-107) Carbon Dioxide Level 42 MMOL/L (21-32) Anion Gap 7 mmol/L (5-15) Blood Urea Nitrogen 60 mg/dL (7-18) Creatinine 3.0 MG/DL (0.55-1.30) Estimat Glomerular Filtration Rate 18.2 mL/min (>60) Glucose Level 335 MG/DL (74-106) Lactic Acid Level 1.00 mmol/L (0.4-2.0) Calcium Level 9.8 MG/DL (8.5-10.1) Total Bilirubin 0.5 MG/DL (0.2-1.0) Aspartate Amino Transf (AST/SGOT) 24 U/L (15-37) Alanine Aminotransferase (ALT/SGPT) 18 U/L (12-78) Alkaline Phosphatase 119 U/L (46-116) Troponin I 0.000 ng/mL (0.000-0.056) Pro-B-Type Natriuretic Peptide 519 pg/mL (0-125) Total Protein 8.0 G/DL (6.4-8.2) Albumin 3.0 G/DL (3.4-5.0) Globulin 5.0 g/dL Albumin/Globulin Ratio 0.6 (1.0-2.7) Urine Color Yellow Urine Appearance Slightly cloudy Urine pH 8 (4.5-8.0) Urine Specific Hunter 1.015 (1.005-1.035) Urine Protein 3+ (NEGATIVE) Urine Glucose (UA) Negative (NEGATIVE) Urine Ketones 1+ (NEGATIVE) Urine Blood 4+ (NEGATIVE) Urine Nitrite Negative (NEGATIVE) Urine Bilirubin Negative (NEGATIVE) Urine Urobilinogen Normal MG/DL (0.0-1.0) Urine Leukocyte Esterase 3+ (NEGATIVE) Urine RBC 5-10 /HPF (0 - 2) Urine WBC 30-40 /HPF (0 - 2) Urine Squamous Epithelial Cells Few /LPF (NONE/OCC) Urine Bacteria Moderate /HPF (NONE) Urine Yeast Few /HPF (NONE) Arterial Blood pH 7.437 (7.350-7.450) Arterial Blood Partial Pressure CO2 60.7 mmHg (35.0-45.0) Arterial Blood Partial Pressure O2 148.6 mmHg (75.0-100.0) Arterial Blood HCO3 40.0 mmol/L (22.0-26.0) Arterial Blood Oxygen Saturation 98.7 % (95-100) Arterial Blood Base Excess 13.7 (-2-2) Danilo Test Positive (Pinky Armenta DO) EKG Diagnostic Results Rate: normal Rhythm: NSR ST Segments: no acute changes ASA given to the pt in ED: No (Jose Miguel Olosn MD) Rhythm Strip Diag. Results EP Interpretation: yes Rhythm: NSR, no PVC's, no ectopy (Jose Miguel Olson MD) EP Interpretation: yes Rate: 77 Rhythm: NSR, no PVC's, no ectopy (Pinky Armenta DO) Chest X-Ray Diagnostic Results Chest X-Ray Diagnostic Results : Chest X-Ray Ordered: Yes # of Views/Limited/Complete: 1 View Indication: Shortness of Breath EP Interpretation: Yes Interpretation: no consolidation, no pneumothorax, other - Bilateral effusions, pulmonary congestion Impression: Other - CHF Electronically Signed by: Pinky Armenta DO (Pinky Armenta DO) Last Vital Signs Date Time Temp Pulse Resp B/P (MAP) Pulse Ox O2 Delivery O2 Flow Rate FiO2 11/02/19 20:11 99.5 101 25 158/98 (118) 92 Non-Rebreather 15.0 (Jose Miguel Olson MD) Status: improved (Pinky Armenta DO) Disposition: PLACE IN OBSERVATION Condition: Serious Jose Miguel Olson MD Nov 02, 2019 20:44 Pinky Armenta DO Nov 03, 2019 00:59
[2019-11-02] MEDS ORDERED: Solu-MEDROL 125mg Inj IVP ONE (20:45)
[2019-11-02] MEDS ORDERED: Albuterol/Ipratropium 3ml neb HHN ONE (20:45)
[2019-11-02 21:05] LABS: BASOPHILS % (AUTO) 1.3 % (0.0-2.0); EOSINOPHILS % (AUTO) 1.3 % (0.0-3.0); HEMATOCRIT 32.5 % (37.0-47.0); LYMPHOCYTES % (AUTO) 18.2 % (20.0-45.0); MEAN CORPUSCULAR VOLUME 90 FL (80-99); MONOCYTES % (AUTO) 6.4 % (1.0-10.0); NEUTROPHILS % (AUTO) 72.8 % (45.0-75.0); PLATELET COUNT 699 K/UL (150-450); RED BLOOD COUNT 3.62 M/UL (4.20-5.40); RED CELL DISTRIBUTION WIDTH 17.8 % (11.6-14.8); WHITE BLOOD COUNT 15.3 K/UL (4.8-10.8)
--- NOTE | 2019-11-02 21:09 | NUR ---
ED Nurse Note: RT at bedside.
[2019-11-02 21:19] LABS: ALANINE AMINOTRANSFERASE 18 U/L (12-78); ALBUMIN/GLOBULIN RATIO 0.6 (1.0-2.7); ALKALINE PHOSPHATASE 119 U/L (46-116); ANION GAP 7 mmol/L (5-15); ASPARTATE AMINO TRANSFERASE 24 U/L (15-37); BILIRUBIN,TOTAL 0.5 MG/DL (0.2-1.0); BLOOD UREA NITROGEN 60 mg/dL (7-18); CALCIUM 9.8 MG/DL (8.5-10.1); CHLORIDE 97 MMOL/L (98-107); POTASSIUM 5.1 MMOL/L (3.5-5.1); SODIUM 147 MMOL/L (136-145)
[2019-11-02 21:21] LABS: CARBON DIOXIDE 42 MMOL/L (21-32)
[2019-11-02 21:33] LABS: APPEARANCE,URINE SLIGHTLY CLOUDY; BILIRUBIN, URINE NEGATIVE (NEGATIVE); GLUCOSE, URINE (UA) NEGATIVE (NEGATIVE); KETONES,URINE 1+ (NEGATIVE); LEUKOCYTE ESTERASE ,URINE 3+ (NEGATIVE); NITRITE,URINE NEGATIVE (NEGATIVE); PH,URINE 8 (4.5-8.0); PROTEIN,URINE 3+ (NEGATIVE); UROBILINOGEN,URINE NORMAL MG/DL (0.0-1.0)
[2019-11-02 21:36] LABS: COLOR,URINE YELLOW
--- NOTE | 2019-11-02 22:04 | NUR ---
patient's emergency contact Kenzie- [phone] Anastasiya- [phone]
--- NOTE | 2019-11-02 22:13 | NUR ---
ED Nurse Note: Family at bedside.
--- NOTE | 2019-11-02 22:25 | NUR ---
ED Nurse Note: Skin intact. Patient has redness on bilateral heels, coccyx and left upper hip. Reported to FELY Peña in telemetry.
[2019-11-02] MEDS ORDERED: Lactulose 20gm/30ml UDC GT PRN (22:30)
[2019-11-02] MEDS ORDERED: Milk of Magnesia 30ml Ud GT PRN (22:30)
--- NOTE | 2019-11-02 22:39 | NUR ---
ED Nurse Note: Report given to FELY Peña in telemetry.
--- NOTE | 2019-11-02 22:40 | NUR ---
TRANSFER TO FLOOR: Patient transferred to telemetry as ordered, per ERMD. Report given to FELY Peña. Family informed of transfer. Patient transported via gurney with ACLS protocol on hospital monitor accompanied by 1 RN and iv technician in stable condition.
--- NOTE | 2019-11-02 23:00 | NUR ---
NURSE NOTES: Patient arrived to the unit at 2245 via gurney accompanied by the [employer] and the permit technician. Received report from FELY Nagy. Patient is in bed, obtunded, cannot respond verbally. Withdraws to painful stimuli. Breathing regular and unlabored with no S/S of SOB noted at this time. Patient is on a 2L NC with saturation of 98%. Placed patient on a threat monitoring analyst, showing sinus rhythm. IV access on the R hand 22G, patent, intact, and saline locked. Placed optifoam on bony prominences as well as bilateral heels for protection. Patient has a G-port, double lumen with access to J-tube and G-tube. Per MD orders, the G-tube is connected to low-intermittent suctioning. Primary MD placed admitting orders, orders noted and carried out. No belongings were brought with the patient, noted on the sheet and signed with transferring RN. Patient's family is at bed-side. Bed remains in the lowest position and breaks engaged. All other needs attended to, patient remains stable, will continue to monitor.
--- NOTE | 2019-11-02 23:00 | NUR ---
NURSE NOTES: Contacted Dr. Crowder for diet orders for the patient. No response yet, will await for new orders.
[2019-11-03] VITALS (9 sets, daily range): BP systolic 89–158; BP diastolic 46–92
[2019-11-03] MEDS: Piperacillin/Tazobactam 3.375 GM in NS 110 ML IVPB SCH ×2 (00:21→12:09)
[2019-11-03] MEDS: Albuterol/Ipratropium 3ml neb HHN SCH ×7 (03:26→23:24)
--- NOTE | 2019-11-03 06:00 | NUR ---
NURSE NOTES: Still no diet orders received from primary MD, did not administer AM medications due to no information on the route of administration. Insulin was given per MD orders. Patient remains stable.
[2019-11-03] MEDS: NovoLOG Insulin Flexpen SUBQ SCH ×4 (06:20→21:09)
[2019-11-03] MEDS ORDERED: Albuterol/Ipratropium 3ml neb HHN SCH (07:00)
[2019-11-03 07:21] LABS: ALANINE AMINOTRANSFERASE < 6 U/L (12-78); ALBUMIN 2.7 G/DL (3.4-5.0); ALBUMIN/GLOBULIN RATIO 0.5 (1.0-2.7); ALKALINE PHOSPHATASE 106 U/L (46-116); ANION GAP 11 mmol/L (5-15); ASPARTATE AMINO TRANSFERASE 16 U/L (15-37); BILIRUBIN,TOTAL 0.5 MG/DL (0.2-1.0); BLOOD UREA NITROGEN 67 mg/dL (7-18); CALCIUM 9.7 MG/DL (8.5-10.1); CHLORIDE 96 MMOL/L (98-107); CREATININE 3.4 MG/DL (0.55-1.30); POTASSIUM 4.7 MMOL/L (3.5-5.1); SODIUM 147 MMOL/L (136-145)
--- NOTE | 2019-11-03 07:28 | NUR ---
HAND-OFF: Report given to FELY Jones. Patient remains stable, plan of care endorsed. Informed about no diet order as well as morning insulin reading.
[2019-11-03 07:38] LABS: CARBON DIOXIDE 41 MMOL/L (21-32)
[2019-11-03 07:42] LABS: HEMOGLOBIN 9.7 G/DL (12.0-16.0); MEAN CORPUSCULAR VOLUME 90 FL (80-99); PLATELET COUNT 625 K/UL (150-450); RED BLOOD COUNT 3.46 M/UL (4.20-5.40); RED CELL DISTRIBUTION WIDTH 15.8 % (11.6-14.8); WHITE BLOOD COUNT 13.1 K/UL (4.8-10.8)
--- NOTE | 2019-11-03 07:52 | NUR ---
NURSE NOTES: Received report from FELY Peña. Pt in bed, obtunded, eyes open spontaneously, pt does not follow commands or verbal cues, pt's respirations are regular and unlabored at this time, G-tube port is set to low intermittent suction, RN asked Dr. Crowdre is okay for pt to receive medications, no diet order in system at this time, RNs adjusted pt's position, bed in lowest position, call light within reach, RN will plan for frequent repositioning and monitoring of pt as she is obtunded
--- NOTE | 2019-11-03 08:40 | NUR ---
This BP was rechecked from 0800 vitals obtained from [facility]. This was taken at 0840 and charted at 0956, another check was done prior to Admin of Metoprolol at 0957 BP 90/52, Metoprolol not given due to decrease in BP, MD Crowder notified, pt at rest, no apparent distress Addendum: 11/03/19 at 0959 by ANASTASIA VELEZ RN Amended: Links added.
--- NOTE | 2019-11-03 09:32 | NUR ---
NURSE NOTES: Rn asked again if okay to give meds to pt, ordered to start feeds "Nutrn 1.5 @20ml/hr" RN notified MD FOSTER does not carry this type of feeds and that SNF documentation states pt is on Glucerna 1.5 @ goal of 50ml/hr, asked if okay to start this type of feeds at 20ml/hr, also per SNF documentation flush order is 50ml H2O Q4HR for g and j tubes, asked if should be continued. RN asked Dr. Griffith for clarification for used of G-tube and J-tube. MD Griffith stated J is for feeds and G is for meds, G to LIS, clamp for 1 hour after meds and flush each with 50cc Q6. RN asked for clarification from MD Griffith for feeding and suction and flush order that is different from SNF order and Dr. Lakesha agustin
[2019-11-03] MEDS: Docusate 100mg/10ml Liq GT SCH ×2 (09:52→17:34)
[2019-11-03] MEDS: Aspirin Baby 81mg GT SCH (09:53)
[2019-11-03] MEDS: Heparin 5000 units/ml inj SUBQ SCH ×2 (09:54→21:08)
[2019-11-03] MEDS: Levemir Flexpen SUBQ SCH ×2 (09:55→17:35)
--- NOTE | 2019-11-03 13:19 | Diagnostic Imaging Report ---
. Indication: Shortness of breath Technique: One view of the chest Comparison: 10/29/2019 Findings: Slightly better inspiration currently. There appears to be increased interstitial and airspace disease throughout the left lung. Reticular interstitial and airspace disease in the right lung appears similar to the prior exam allowing for differences in degree of inspiration. The heart is borderline enlarged. The aorta is tortuous and calcified Impression: Bilateral interstitial and airspace disease-infiltrates versus edema, worse than on the left over 4 days, unchanged on the right
--- NOTE | 2019-11-03 13:37 | NUR ---
NURSE NOTES: Notified Dr. Crowder pt has Accelerated Junctional rhythm with controlled heart rate, BP has been low 89-90's SBP, DBP 46-52 last BP 100/60 HR 85
--- NOTE | 2019-11-03 14:30 | History and Physical Report ---
DATE OF ADMISSION: 11/02/2019 CHIEF COMPLAINT: Congestion and shortness of breath. HISTORY OF PRESENT ILLNESS: The patient is an unfortunate 79-year-old female. She has a history of stroke, encephalopathy, hypertension, diabetes, seizure disorder. She was recently hospitalized for aspiration pneumonia as well as urinary tract infection. [facility]. On the night of transfer, the patient desaturated and became hypoxic requiring placement on a non-rebreather. She was markedly congested. She recently had a G-tube placed. The G-tube port had been to gravity with some output. Despite aggressive pulmonary toilet, suctioning, and breathing treatments at the [facility], the patient's oxygen saturations did not improve and she was transferred to the emergency room. On evaluation there, she was given a dose of intravenous steroids, a dose of intravenous Lasix. She received a breathing treatment. Oxygen saturations did improve. Laboratories were significant for white count of 15,000. Sodium 147, BUN of 16, and creatinine of 3. She also had a UA showed 30 to 40 wbc's. Per report from the ER, chest x-ray was improved compared to prior x-rays done during the last admission. The patient is now admitted, been placed on observation. PAST MEDICAL HISTORY: As above. PAST SURGICAL HISTORY: Includes a prior history of a G-tube. CURRENT MEDICATIONS: Reconciled and reviewed. ALLERGIES: None. FAMILY HISTORY: None. SOCIAL HISTORY: There is no known history of tobacco, ethanol, or drugs. The patient is a Full Code. REVIEW OF SYSTEMS: Unobtainable. PHYSICAL EXAMINATION: VITAL SIGNS: Temperature 97.2, pulse 83, respirations 16, blood pressure 158/92. GENERAL: The patient is a chronically ill-appearing female, in no apparent distress. She is awake, but nonverbal. She does not follow commands. NECK: Supple. There is no jugular venous distention. HEART: Regular rate and rhythm. LUNGS: Significant for few scattered rhonchi. ABDOMEN: Soft, nontender, nondistended. EXTREMITIES: Without clubbing or cyanosis. The patient has contractures. NEUROLOGIC: She is nonverbal at baseline. Does not follow commands. LABORATORY DATA: White count 15,000, hemoglobin 10, hematocrit 32. Sodium 147, potassium 5, chloride 97, bicarb 42, BUN 60, creatinine was 3. UA showed 30 to 40 wbc's. Chest x-ray results are currently pending. ASSESSMENT: This is an 79-year-old female with multiple medical problems including a prior history of stroke, encephalopathy, dementia, seizure disorder, diabetes, chronic kidney disease, congestive heart failure, COPD admitted with congestion and hypoxemia, suspect multifactorial possibly due to aspiration, cannot rule out an underlying pneumonia. PROBLEM LIST: 1. Diabetes. 2. Hypertension. 3. History of chronic kidney disease. 4. History of CHF. 5. Dysphagia. 6. Encephalopathy. 7. Seizure disorder. PLAN: 1. Aggressive pulmonary toilet. 2. Respiratory treatments. 3. Cautious resumption of feeds. 4. Monitor residuals. 5. Keep G port to low intermittent suction. 6. Follow up pending chest x-ray. 7. Pulmonary evaluation. 8. The patient's overall status is stable. Her long-term prognosis for meaningful recovery is poor. This has been discussed with family members at length and they have been made aware. Jeffrey Crowder M.D. DR: CHRISTIANO JOB#: [id number] CC:
--- NOTE | 2019-11-03 16:42 | NUR ---
NURSE NOTES: Called [facility] regarding code status, on previous admission pt was DNR. [facility] stated to call Dr. Crowder, their paperwork is DNR. RN asked Dr. Crowder for updated information on code status
--- NOTE | 2019-11-03 17:45 | Consultation ---
DATE OF CONSULTATION: 11/03/2019 PULMONARY CONSULTATION REASON FOR CONSULTATION: Respiratory distress. HISTORY OF PRESENT ILLNESS: This is an 79-year-old female, who [facility] from [facility] facility. The patient is noted to be hypoxemic. The patient was placed on nonrebreather and brought over to the emergency room. The patient was just recently discharged with pneumonia and now readmitted for similar findings and symptoms. The patient is admitted and I was called to assist and evaluate. The patient is currently on nasal cannula, saturating adequately, mild distress, but has no imminent respiratory embarrassment. The patient is unable to give much in the way of history. The patient's prior history was reviewed and discussed. PAST MEDICAL HISTORY: Diabetes, hypertension, and CHF. The patient does have history of anemia, hypothyroidism, chronic kidney disease, and diabetes. MEDICATIONS: Reviewed. ALLERGIES: Reviewed and reconciled. FAMILY HISTORY: Noncontributory due to the above. REVIEW OF SYSTEMS: Unobtainable due to the patient's present state. PHYSICAL EXAMINATION: GENERAL: An ill-appearing female. VITAL SIGNS: Currently, vital signs temperature 97.2, pulse 83, blood pressure 158/92, and sats 100% on 2 liters. HEENT: Negative. Oropharynx moist. NECK: Supple. LUNGS: Moderate breath sounds. Scattered rhonchi overall. CARDIAC: S1, S2. Regular rate and rhythm without murmurs, rubs, gallops. ABDOMEN: Soft, nontender, and nondistended. EXTREMITIES: No cyanosis or clubbing. There is mild edema. NEUROLOGIC: Confused, but responds to pain x4. LABORATORY DATA: Reviewed. White count 13, hemoglobin 9.7, and platelets 625,000. Chemistries noted. Bicarbonate is 21, BUN 67, and creatinine 3.4. Arterial blood gas is 7.43/60/148/40. IMPRESSION: Chronic respiratory failure, chronic hypercapnia, chronic hypoxemia, alkalosis due to compensation, leukocytosis of unclear significance, chronic renal failure, and chronic kidney disease. RECOMMENDATIONS: 1. Supportive care as outlined. 2. Resume intravenous antibiotics and monitor. 3. Followup x-rays and monitor. 4. DVT prophylaxis. 5. Avoid sedation. 6. Monitor arterial blood gases and assist and optimize overall care. 7. Nebulized therapy and consider BiPAP if the patient worsens. 8. We will follow clinically for change. Torey Douglass M.D. DR: ACE JOB#: [id number] CC:
--- NOTE | 2019-11-03 19:35 | NUR ---
NURSE NOTES: Received report from FELY Jones. Patient is in bed, responsive to slight painful stimuli. Breathing regular and unlabored with no s/s of SOB noted at this time. Patient remains on a 2L NC, with saturations in the 90's. Family members currently at bed-side. Patient's G/J port is connected to Glucerna 1.2 with the goal of 50ml/hr as per MD orders. IV access patent, intact, and saline locked. Patient currently tolerating well. Bed remains in the lowest position with breaks engaged. All other needs attended to, patient remains stable, will continue to monitor.
--- NOTE | 2019-11-03 19:37 | NUR ---
HAND-OFF: Report given to FELY Peña.
[2019-11-03] MEDS: Miralax 17gm pkt GT SCH (21:08)
[2019-11-04] VITALS: BP 106/59
[2019-11-04] MEDS: Piperacillin/Tazobactam 3.375 GM in NS 110 ML IVPB SCH ×2 (01:09→11:46)
[2019-11-04] MEDS: Albuterol/Ipratropium 3ml neb HHN SCH ×6 (03:29→23:07)
[2019-11-04 04:00] VITALS: BP 102/52
--- NOTE | 2019-11-04 05:15 | Progress Note ---
DATE: 11/03/2019 CARDIOLOGY PROGRESS NOTE SUBJECTIVE: The patient was readmitted yesterday with respiratory distress. She was given steroids, intravenous diuretics, and bronchodilators by inhalation. A chest x-ray, slightly improved from prior x-ray. PHYSICAL EXAMINATION: LUNGS: Bilateral breath sounds. Rhonchi. CARDIAC: Regular rhythm and rate. Normal S1, S2. ABDOMEN: Soft. GJ tube intact. EXTREMITIES: No edema. LABORATORY DATA: White count 15, hemoglobin 10. Sodium 147, potassium 5, chloride 97, bicarb 42, BUN 60, creatinine 3. IMPRESSION: 1. Aspiration with possible pneumonia. 2. Chronic diastolic congestive heart failure. 3. Acute on chronic kidney injury. 4. Contraction alkalosis. 5. Dehydration. 6. Hyponatremia. 7. Urinary tract infection. 8. Dysphagia with G-tube. 9. Hypertensive heart disease with labile blood pressure. PLAN: 1. Hypotonic IV fluids. 2. No diuretics. 3. Respiratory hygiene. 4. Bronchodilators. 5. Empiric antimicrobials. 6. DVT prophylaxis. 7. Nutrition by feeding tube. 8. Titrate antihypertensives based on clinical parameters. 9. Avoid tight blood pressure control. Kavon Peña M.D. DR: GOVIND JOB#: [id number] CC:
[2019-11-04] MEDS: NovoLOG Insulin Flexpen SUBQ SCH ×4 (06:30→21:00)
--- NOTE | 2019-11-04 07:55 | NUR ---
6HAND-OFF: Report given to FELY Reed. Pastient is in stable condition. Plan of care endorsed.
[2019-11-04 08:00] VITALS: BP 99/53
--- NOTE | 2019-11-04 08:26 | NUR ---
NURSE NOTES: Patient very obtunded only responds to painful stimuli. RR even and unlabored on 2L NC. No s/sx of distress. Feeding infusing through jtube. Side rails upx2, call light within reach, bed low and locked. Will continue to monitor.
--- NOTE | 2019-11-04 08:32 | Pulmonology Progress Note ---
Assessment/Plan Assessment/Plan Chronic respiratory failure, chronic hypercapnia, chronic hypoxemia, alkalosis due to compensation, leukocytosis of unclear significance, chronic renal failure, and chronic kidney disease. PLAN care noted respiratory care monitor oxygen needs antibiotics noted and reviewed meds noted monitor for aspiration elevate head impression, plan, and exam edited and reviewed in detail care discussed with RN Subjective ROS Limited/Unobtainable: Yes Allergies: Coded Allergies: No Known Allergies (Verified , 12/31/09) Subjective confused on oxygen mild congestion Objective Last 24 Hour Vital Signs Date Time Temp Pulse Resp B/P (MAP) Pulse Ox O2 Delivery O2 Flow Rate FiO2 11/04/19 08:00 97.5 90 18 99/53 (68) 94 11/04/19 07:40 90 18 100 Nasal Cannula 2.0 28 88 16 98 11/04/19 07:26 98 Nasal Cannula 2.0 28 11/04/19 04:00 97.5 93 17 102/52 (69) 95 11/04/19 04:00 92 11/04/19 03:39 81 18 99 Nasal Cannula 2.0 28 11/04/19 03:29 79 18 98 Nasal Cannula 2.0 28 11/04/19 00:00 98.1 96 16 106/59 (75) 97 11/04/19 00:00 96 11/03/19 23:34 73 18 99 Nasal Cannula 2.0 28 11/03/19 23:24 71 18 98 Nasal Cannula 2.0 28 11/03/19 21:00 Nasal Cannula 2.0 11/03/19 20:31 86 18 99 Nasal Cannula 2.0 28 11/03/19 20:21 85 18 99 Nasal Cannula 2.0 28 11/03/19 20:21 99 Nasal Cannula 2.0 28 11/03/19 20:00 97.5 85 16 109/57 (74) 97 11/03/19 20:00 85 11/03/19 17:35 91 11/03/19 16:22 100/57 (71) 11/03/19 16:00 98.3 84 17 90/51 (64) 96 11/03/19 15:15 86 16 98 Nasal Cannula 2.0 28 80 16 98 11/03/19 12:20 85 100/60 (73) 11/03/19 12:00 98.2 88 18 89/46 (60) 100 11/03/19 11:45 85 11/03/19 11:15 78 16 100 Nasal Cannula 2.0 28 72 16 100 11/03/19 09:57 85 90/52 (65) 11/03/19 09:56 89 127/73 (91) 11/03/19 09:00 85 90/52 11/03/19 08:51 Nasal Cannula 2.0 Intake and Output 11/03/19 11/04/19 19:00 07:00 Intake Total 95.0 ml 320 ml Balance 95.0 ml 320 ml IV Total 55.0 ml Tube Feeding 40 ml 320 ml # Voids 8 # Bowel Movements 1 1 Objective WDWN NAD reduced breath sounds bilaterally without rhonchi or wheeze [id number] without MRG NABS nontender no HSM no CCE reduced ROM nonfocal Microbiology Date/Time Source Procedure Growth Status 11/02/19 20:30 Blood Blood Culture - Preliminary NO GROWTH AFTER 24 HOURS Resulted 11/02/19 20:15 Blood Blood Culture - Preliminary NO GROWTH AFTER 24 HOURS Resulted 11/02/19 20:45 Nasal Nares - Final Complete 11/02/19 20:45 Nasal Nares - Final Complete 11/02/19 20:38 Rectum Received Current Medications Medications (Trade) Dose Ordered Sig/Aaron Route PRN Reason Start Time Stop Time Status Last Admin Dose Admin Albuterol/ Ipratropium (Albuterol/ Ipratropium) 3 ml Q4HRT HHN 11/02/19 23:00 11/07/19 22:59 11/04/19 07:26 Aspirin (ASA) 81 mg DAILY GT 11/03/19 09:00 12/03/19 08:59 11/03/19 09:53 Clonidine HCl (Catapres Tab) 0.1 mg EVERY 6 HOURS PRN GT SBP>160 11/02/19 22:30 12/02/19 22:29 Dextrose (Dextrose 50%) 25 ml Q30M PRN IV Hypoglycemia 11/02/19 22:30 12/02/19 22:29 Dextrose (Dextrose 50%) 50 ml Q30M PRN IV Hypoglycemia 11/02/19 22:30 12/02/19 22:29 Docusate Sodium (Colace) 100 mg BID GT 11/03/19 09:00 12/03/19 08:59 11/03/19 17:34 Gabapentin (Neurontin) 100 mg BID GT 11/03/19 09:00 12/03/19 08:59 11/03/19 17:34 Heparin Sodium (Porcine) (Heparin 5000 units/ml) 5,000 units EVERY 12 HOURS SUBQ 11/03/19 09:00 12/03/19 08:59 11/03/19 21:08 Insulin Aspart (NovoLOG) BEFORE MEALS AND HS SUBQ 11/03/19 06:30 12/03/19 06:29 11/03/19 21:09 Insulin Detemir (Levemir) 6 units BID SUBQ 11/03/19 09:00 12/03/19 08:59 11/03/19 17:35 Lactulose (Cephulac) 20 gm DAILY PRN GT Constipation 11/02/19 22:30 12/02/19 22:29 Lansoprazole (Prevacid) 30 mg DAILY@0630 GT 11/03/19 06:30 12/03/19 06:29 11/04/19 06:34 Levetiracetam (Keppra) 1,000 mg BID GT 11/03/19 09:00 12/03/19 08:59 11/03/19 17:34 Levothyroxine Sodium (Synthroid) 75 mcg DAILY@0630 GT 11/03/19 06:30 12/03/19 06:29 11/04/19 06:34 Magnesium Hydroxide (Mom) 30 ml DAILY PRN GT Constipation 11/02/19 22:30 12/02/19 22:29 Metoprolol Tartrate (Lopressor) 25 mg EVERY 12 HOURS GT 11/03/19 09:00 12/03/19 08:59 Piperacillin Sod/ Tazobactam Sod 3.375 gm/Sodium Chloride 110 ml @ 27.5 mls/hr Q12H IVPB 11/03/19 00:00 11/10/19 00:00 11/04/19 01:09 Polyethylene Glycol (Miralax) 17 gm BEDTIME GT 11/03/19 21:00 12/03/19 20:59 11/03/19 21:08 Torey Douglass MD Nov 04, 2019 08:31
[2019-11-04] MEDS: Aspirin Baby 81mg GT SCH (10:06)
[2019-11-04] MEDS: Docusate 100mg/10ml Liq GT SCH ×2 (10:07→18:23)
[2019-11-04] MEDS: Heparin 5000 units/ml inj SUBQ SCH ×2 (10:15→22:44)
[2019-11-04] MEDS: Levemir Flexpen SUBQ SCH ×2 (10:16→18:26)
--- NOTE | 2019-11-04 10:30 | Infectious Diseases Prog Note ---
Assessment/Plan Assessment/Plan antibiotics ; zosyn A 1. pneumonia 2. leucocytosis improving 3. diabetes mellitus 4. hypertension 5. seizures 6. CHF 7. stroke P 1. continue zosyn 2. will follow up cultures Subjective ROS Limited/Unobtainable: Yes Allergies: Coded Allergies: No Known Allergies (Verified , 12/31/09) Objective Vital Signs Last 24 Hour Vital Signs Date Time Temp Pulse Resp B/P (MAP) Pulse Ox O2 Delivery O2 Flow Rate FiO2 11/04/19 09:00 Nasal Cannula 2.0 11/04/19 09:00 90 99/53 11/04/19 08:00 97.5 90 18 99/53 (68) 94 11/04/19 07:40 90 18 100 Nasal Cannula 2.0 28 88 16 98 11/04/19 07:26 98 Nasal Cannula 2.0 28 11/04/19 04:00 97.5 93 17 102/52 (69) 95 11/04/19 04:00 92 11/04/19 03:39 81 18 99 Nasal Cannula 2.0 28 11/04/19 03:29 79 18 98 Nasal Cannula 2.0 28 11/04/19 00:00 98.1 96 16 106/59 (75) 97 11/04/19 00:00 96 11/03/19 23:34 73 18 99 Nasal Cannula 2.0 28 11/03/19 23:24 71 18 98 Nasal Cannula 2.0 28 11/03/19 21:00 Nasal Cannula 2.0 11/03/19 20:31 86 18 99 Nasal Cannula 2.0 28 11/03/19 20:21 85 18 99 Nasal Cannula 2.0 28 11/03/19 20:21 99 Nasal Cannula 2.0 28 11/03/19 20:00 97.5 85 16 109/57 (74) 97 11/03/19 20:00 85 11/03/19 17:35 91 11/03/19 16:22 100/57 (71) 11/03/19 16:00 98.3 84 17 90/51 (64) 96 11/03/19 15:15 86 16 98 Nasal Cannula 2.0 28 80 16 98 11/03/19 12:20 85 100/60 (73) 11/03/19 12:00 98.2 88 18 89/46 (60) 100 11/03/19 11:45 85 11/03/19 11:15 78 16 100 Nasal Cannula 2.0 28 72 16 100 Height (Feet): 5 Height (Inches): 4.00 Weight (Pounds): 160 Respiratory/Chest: lungs clear Cardiovascular: normal rate, regular rhythm, no gallop/murmur Abdomen: soft, non tender, other - GT Extremities: no edema Microbiology Date/Time Source Procedure Growth Status 11/02/19 20:30 Blood Blood Culture - Preliminary NO GROWTH AFTER 24 HOURS Resulted 11/02/19 20:15 Blood Blood Culture - Preliminary NO GROWTH AFTER 24 HOURS Resulted 11/02/19 20:45 Nasal Nares - Final Complete 11/02/19 20:45 Nasal Nares - Final Complete 11/02/19 20:45 Urine,Clean Catch Urine Culture - Preliminary NO GROWTH AFTER 24 HOURS Resulted 11/02/19 20:38 Rectum Received Current Medications Medications (Trade) Dose Ordered Sig/Aaron Route PRN Reason Start Time Stop Time Status Last Admin Dose Admin Albuterol/ Ipratropium (Albuterol/ Ipratropium) 3 ml Q4HRT HHN 11/02/19 23:00 11/07/19 22:59 11/04/19 10:12 Aspirin (ASA) 81 mg DAILY GT 11/03/19 09:00 12/03/19 08:59 11/04/19 10:06 Clonidine HCl (Catapres Tab) 0.1 mg EVERY 6 HOURS PRN GT SBP>160 11/02/19 22:30 12/02/19 22:29 Dextrose (Dextrose 50%) 25 ml Q30M PRN IV Hypoglycemia 11/02/19 22:30 12/02/19 22:29 Dextrose (Dextrose 50%) 50 ml Q30M PRN IV Hypoglycemia 11/02/19 22:30 12/02/19 22:29 Docusate Sodium (Colace) 100 mg BID GT 11/03/19 09:00 12/03/19 08:59 11/04/19 10:07 Gabapentin (Neurontin) 100 mg BID GT 11/03/19 09:00 12/03/19 08:59 11/04/19 10:07 Heparin Sodium (Porcine) (Heparin 5000 units/ml) 5,000 units EVERY 12 HOURS SUBQ 11/03/19 09:00 12/03/19 08:59 11/04/19 10:15 Insulin Aspart (NovoLOG) BEFORE MEALS AND HS SUBQ 11/03/19 06:30 12/03/19 06:29 11/03/19 21:09 Insulin Detemir (Levemir) 6 units BID SUBQ 11/03/19 09:00 12/03/19 08:59 11/04/19 10:16 Lactulose (Cephulac) 20 gm DAILY PRN GT Constipation 11/02/19 22:30 12/02/19 22:29 Lansoprazole (Prevacid) 30 mg DAILY@0630 GT 11/03/19 06:30 12/03/19 06:29 11/04/19 06:34 Levetiracetam (Keppra) 1,000 mg BID GT 11/03/19 09:00 12/03/19 08:59 11/04/19 10:07 Levothyroxine Sodium (Synthroid) 75 mcg DAILY@0630 GT 11/03/19 06:30 12/03/19 06:29 11/04/19 06:34 Magnesium Hydroxide (Mom) 30 ml DAILY PRN GT Constipation 11/02/19 22:30 12/02/19 22:29 Metoprolol Tartrate (Lopressor) 25 mg EVERY 12 HOURS GT 11/03/19 09:00 12/03/19 08:59 Piperacillin Sod/ Tazobactam Sod 3.375 gm/Sodium Chloride 110 ml @ 27.5 mls/hr Q12H IVPB 11/03/19 00:00 11/10/19 00:00 11/04/19 01:09 Polyethylene Glycol (Miralax) 17 gm BEDTIME GT 11/03/19 21:00 12/03/19 20:59 11/03/19 21:08 Tyrel Prieto MD Nov 04, 2019 10:30
[2019-11-04 12:00] VITALS: BP 112/58
--- NOTE | 2019-11-04 12:14 | NUR ---
RD ASSESSMENT & RECOMMENDATIONS SEE CARE ACTIVITY FOR COMPLETE ASSESSMENT DAILY ESTIMATED NEEDS: Needs based on DM, CHF, bedbound 57.7kg abw 23-30 kcals/kg 9963-4621 total kcals 1.2-1.5 g protein/kg 69-87 g total protein 25-30 mL/kg 1584-1628 total fluid mLs NUTRITION DIAGNOSIS: 1) Altered nutrition related lab values r/t DM, CKD, as evidenced by pt w/ elev BUN (67), Cr (3.4), elev BG (300's,400's) 2) Swallowing difficulty r/t dysphagia as evidenced by pt is Jtube dep. (CURRENT TF: Glucerna 1.2 @50 x20 Current TF meets 90% est kcal and 87% est pro needs) ENTERAL NUTRITION RECOMMENDATIONS: Glucerna 1.2 @ 60ml/hr x 22 hrs to provide 1320ml, 1584 kcal, 79g pro, 1063ml free H2O * As able advance TF to rate of 60ml/hr * INCREASE TF RUN to 22 hrs to better meet est nutritional needs * Hold 1 hr before and after Synthroid med * HOB over 30 degrees/ water flush per MD Monitor lytes closely, need to change TF to Nepro ADDITIONAL RECOMMENDATIONS: 1) Monitor lytes closely, need for TF change (Pt on Nepro [employer], possible h/o electrolyte imbalance) 2) BG 300's, 400's-> possible need for increase in Levemir 3) Calibrate bed scale for accurate wt: bed scale 147.6# vs EMR wt 160# 4) Increase water flushes for possible water deficits (elev Na) .
--- NOTE | 2019-11-04 14:34 | NUR ---
CASE MANAGEMENT:INITIAL REVIEW 79 YR OLD FEMALE BIBA FROM [facility] CC;SOB. RESPIRATORY DISTRESS. SI;DYSPNEA. CHF. 100.8 101 25 158/98 98% 3L NC FIO2 @ 32% WBC 15.3 H/H 10.0/32.5 NA 147 CL 97 CO2 42 BUN 60 CR 3.0 BG 335 ABG - pCO2 60.7 pO2 148.6 HCO3 40.0 BASE EXCESS 13.7 UA+ PROTEIN, KETONES, BLOOD, LEUKOCYTE, RBC, WBC, BACTERIA, YEAST IS;IV SALINE LOCK DUO NEB HHN ONCE SOLU MEDROL OV ONCE ADMITTED TO TELEMETRY TELE STATUS DCP;FORM ASHLYN
--- NOTE | 2019-11-04 14:49 | NUR ---
*-* INSURANCE *-* ALL CLINICALS AND REVIEWS HAVE BEEN FAXED TO: [employer] NO CM OR TRACKING YET # [phone] FAX# [phone] REVIEWS/CLINICALS
[2019-11-04 16:00] VITALS: BP 124/55
--- NOTE | 2019-11-04 19:02 | General Progress Note ---
Assessment/Plan Problem List: (1) Dementia ICD Codes: F03.90 - Unspecified dementia without behavioral disturbance SNOMED: 29326667 (2) UTI (urinary tract infection) ICD Codes: N39.0 - Urinary tract infection, site not specified SNOMED: 96255552 (3) Diabetes mellitus ICD Codes: E11.9 - Type 2 diabetes mellitus without complications SNOMED: 28954356 (4) Pneumonia ICD Codes: J18.9 - Pneumonia, unspecified organism SNOMED: 625801845 (5) ARF (acute renal failure) ICD Codes: N17.9 - Acute kidney failure, unspecified SNOMED: 90560724 (6) Shortness of breath ICD Codes: R06.02 - Shortness of breath SNOMED: 287053470 (7) CHF (congestive heart failure) ICD Codes: I50.9 - Heart failure, unspecified SNOMED: 04536630 Status: stable, progressing Assessment/Plan: resp rx suctioning as needed j tube feeds g port to suction iv abx per id follow up cultures cautious iv hydration sz rx d/w sister nicola x 30 mins. aware of poc. aware that pts prognosis for meaningful is poor. she is hopeful pt will become ambulatory and conversant again Subjective ROS Limited/Unobtainable: Yes Constitutional: Reports: malaise, weakness HEENT: Reports: no symptoms Cardiovascular: Reports: no symptoms Respiratory: Reports: cough, shortness of breath, sputum Gastrointestinal/Abdominal: Reports: difficulty swallowing Genitourinary: Reports: no symptoms Neurologic/Psychiatric: Reports: pre-existing deficit, seizure Endocrine: Reports: no symptoms Hematologic/Lymphatic: Reports: anemia Allergies: Coded Allergies: No Known Allergies (Verified , 12/31/09) All Systems: reviewed and negative except above Subjective no events. awake. minimal congestion. tolerating J tube feeds. G tube to LIS- minimal output currently. no fever or chills. no sob. bun/cr trending up. Objective Last 24 Hour Vital Signs Date Time Temp Pulse Resp B/P (MAP) Pulse Ox O2 Delivery O2 Flow Rate FiO2 11/04/19 16:00 97.7 91 18 124/55 (78) 95 11/04/19 16:00 88 11/04/19 14:22 95 18 99 Nasal Cannula 2.0 28 89 16 98 11/04/19 12:00 87 11/04/19 12:00 98.2 88 18 112/58 (76) 99 11/04/19 10:22 85 16 98 Nasal Cannula 2.0 28 82 16 97 11/04/19 09:00 Nasal Cannula 2.0 11/04/19 09:00 90 99/53 11/04/19 08:00 97.5 90 18 99/53 (68) 94 11/04/19 07:56 88 11/04/19 07:40 90 18 100 Nasal Cannula 2.0 28 88 16 98 11/04/19 07:26 98 Nasal Cannula 2.0 28 11/04/19 04:00 97.5 93 17 102/52 (69) 95 11/04/19 04:00 92 11/04/19 03:39 81 18 99 Nasal Cannula 2.0 28 11/04/19 03:29 79 18 98 Nasal Cannula 2.0 28 11/04/19 00:00 98.1 96 16 106/59 (75) 97 11/04/19 00:00 96 11/03/19 23:34 73 18 99 Nasal Cannula 2.0 28 11/03/19 23:24 71 18 98 Nasal Cannula 2.0 28 11/03/19 21:00 Nasal Cannula 2.0 11/03/19 20:31 86 18 99 Nasal Cannula 2.0 28 11/03/19 20:21 85 18 99 Nasal Cannula 2.0 11/03/19 20:21 99 Nasal Cannula 2.0 28 11/03/19 20:00 97.5 85 16 109/57 (74) 97 11/03/19 20:00 85 Intake and Output 11/03/19 11/04/19 19:00 07:00 Intake Total 95.0 ml 320 ml Balance 95.0 ml 320 ml IV Total 55.0 ml Tube Feeding 40 ml 320 ml # Voids 8 # Bowel Movements 1 1 Height (Feet): 5 Height (Inches): 4.00 Weight (Pounds): 160 General Appearance: WD/WN, alert, confused EENT: PERRL/EOMI Neck: non-tender, normal alignment, supple Cardiovascular: normal peripheral pulses, normal rate, regular rhythm, no JVD Respiratory/Chest: lungs clear, normal breath sounds, no respiratory distress, no accessory muscle use Abdomen: normal bowel sounds, non tender, soft, no organomegaly Edema: no edema noted Arm (L), no edema noted Arm (R), no edema noted Leg (L), no edema noted Leg (R), no edema noted Pedal (L), no edema noted Pedal (R), no edema noted Generalized Edema: trace edema Neurologic: alert, disoriented, unresponsive, aphasia Skin: normal pigmentation Jeffrey Crowder MD Nov 04, 2019 19:02
--- NOTE | 2019-11-04 19:32 | NUR ---
HAND-OFF: Report given to Elvia Solomon RN. Patient stable. Plan of care endorsed.
--- NOTE | 2019-11-04 19:35 | NUR ---
NURSE NOTES: Patient very obtunded, only responds to painful stimuli. RR even and unlabored on 2L NC. No s/sx of distress. Feeding infusing through J tube. G tube to suction. Side rails upx2, call light within reach, bed low and locked, side rails padded, bed alarm on. Will continue to monitor, pt sister at bedside.
[2019-11-04 20:00] VITALS: BP 117/56
[2019-11-04] MEDS: Miralax 17gm pkt GT SCH (21:00)
[2019-11-05] VITALS: BP 105/55
[2019-11-05] MEDS: Piperacillin/Tazobactam 3.375 GM in NS 110 ML IVPB SCH ×2 (00:19→14:05)
--- NOTE | 2019-11-05 00:45 | Progress Note ---
DATE: 11/04/2019 CARDIOLOGY PROGRESS NOTE SUBJECTIVE: The patient's condition is tenuous. She has congestion. She is on J-tube feedings. Output is minimal from the G-tube. OBJECTIVE: VITAL SIGNS: Blood pressure 124/55, heart rate 91, respiratory rate 18, and afebrile. LUNGS: Bilateral breath sounds and rhonchi. CARDIAC: Regular rhythm and rate. Normal S1 and S2. Murmur unchanged. EXTREMITIES: No edema. LABORATORY DATA: White count 13 yesterday. IMPRESSION: 1. Dehydration. 2. Hypernatremia. 3. Metabolic alkalosis. 4. Acute on chronic renal failure. 5. Dysphagia with aspiration and pneumonia. 6. Hypertensive heart disease with chronic diastolic congestive heart failure. PLAN: 1. Free water replacement. 2. Antimicrobials. 3. Respiratory hygiene. 4. Nutrition by feeding tube. 5. Titrate antihypertensive regimen based on clinical parameters. 6. No diuresis at this time. Kavon Peña M.D. DR: KEN JOB#: [id number] CC:
[2019-11-05] MEDS: Albuterol/Ipratropium 3ml neb HHN SCH ×6 (03:26→22:57)
[2019-11-05 04:00] VITALS: BP 115/62
[2019-11-05] MEDS ORDERED: Milk of Magnesia 30ml Ud GT PRN (06:15)
[2019-11-05] MEDS ORDERED: Lactulose 20gm/30ml UDC GT PRN (06:15)
--- NOTE | 2019-11-05 06:20 | NUR ---
HAND-OFF: Report given to FELY Araujo.
[2019-11-05] MEDS: NovoLOG Insulin Flexpen SUBQ SCH ×4 (06:30→21:35)
--- NOTE | 2019-11-05 06:34 | NUR ---
NURSE NOTES: Received patient per bed awake, , nonverbal, obtunded. no sobb. no facial grimacing noted. with iv line on the right hand running 1/2 ns @ 75 ml/hr. with jt &gt in placed running glucerna 1.2 @ 40 with a goal of 50.flush 50 ml Q4 in both jtube and gtube. J tube for feeds and gtube for meds. o2 cannula at 2 lpm. keep head of bed elevated. provided rest and comfort. bed locked and inlowest position.call light and light button within easy reach. bilateral heels elevated. will continue plan of care. vital signs of 108/64mmhg, 94bpm, 98.0F, 20cpm, 100%
--- NOTE | 2019-11-05 07:32 | NUR ---
HAND-OFF: Report given to xochilt flannery rn.
[2019-11-05 08:00] VITALS: BP 113/69
--- NOTE | 2019-11-05 08:04 | NUR ---
NURSE NOTES: patient is in the bed asleep. respiration is even and unlabored on 02 @2l/min via NC. no facial grimace for pain noted. right hand 22 g IV site is in-place, and patent. no redness, swelling and warmth noted on IV site. GTF is infusing properly, tubing is patent. HOB is elevated. placed call light is within reach, will continue to follow plan fo care.
[2019-11-05 08:38] LABS: ALANINE AMINOTRANSFERASE 13 U/L (12-78); ALBUMIN 2.6 G/DL (3.4-5.0); ALBUMIN/GLOBULIN RATIO 0.5 (1.0-2.7); ALKALINE PHOSPHATASE 97 U/L (46-116); ANION GAP 7 mmol/L (5-15); ASPARTATE AMINO TRANSFERASE 23 U/L (15-37); BILIRUBIN,TOTAL 0.4 MG/DL (0.2-1.0); BLOOD UREA NITROGEN 76 mg/dL (7-18); CALCIUM 9.8 MG/DL (8.5-10.1); CARBON DIOXIDE 39 MMOL/L (21-32); CHLORIDE 101 MMOL/L (98-107); CREATININE 3.7 MG/DL (0.55-1.30); POTASSIUM 4.1 MMOL/L (3.5-5.1); SODIUM 149 MMOL/L (136-145)
--- NOTE | 2019-11-05 10:29 | Pulmonology Progress Note ---
Assessment/Plan Assessment/Plan Chronic respiratory failure, chronic hypercapnia, chronic hypoxemia, alkalosis due to compensation, leukocytosis of unclear significance, chronic renal failure, and chronic kidney disease. PLAN care noted respiratory care as is for now monitor for worsening congestion adjust meds for noted labs monitor oxygen needs antibiotics noted and reviewed meds noted monitor for aspiration elevate head impression, plan, and exam edited and reviewed in detail care discussed with RN Subjective ROS Limited/Unobtainable: Yes Allergies: Coded Allergies: No Known Allergies (Verified , 12/31/09) Subjective confused on oxygen mild congestion overall care reviewed changes in labs noted Objective Last 24 Hour Vital Signs Date Time Temp Pulse Resp B/P (MAP) Pulse Ox O2 Delivery O2 Flow Rate FiO2 11/05/19 08:00 98.5 89 19 113/69 (84) 99 11/05/19 07:26 99 Nasal Cannula 2.0 28 11/05/19 07:26 84 18 100 Nasal Cannula 2.0 28 88 18 99 11/05/19 04:00 97.5 94 16 115/62 (79) 99 11/05/19 04:00 93 11/05/19 03:28 96 16 99 Nasal Cannula 2.0 28 94 16 98 11/05/19 00:00 90 11/05/19 00:00 96.0 92 19 105/55 (72) 92 11/04/19 23:09 63 18 98 Nasal Cannula 2.0 28 60 18 97 11/04/19 21:01 Nasal Cannula 2.0 11/04/19 21:00 74 110/50 11/04/19 20:00 88 11/04/19 20:00 97.2 94 20 117/56 (76) 100 11/04/19 19:38 90 18 99 Nasal Cannula 2.0 28 88 18 98 11/04/19 19:37 98 Nasal Cannula 2.0 28 11/04/19 16:00 97.7 91 18 124/55 (78) 95 11/04/19 16:00 88 11/04/19 14:22 95 18 99 Nasal Cannula 2.0 28 89 16 98 11/04/19 12:00 87 11/04/19 12:00 98.2 88 18 112/58 (76) 99 Intake and Output 11/04/19 11/05/19 19:00 07:00 Intake Total 40 ml Balance 40 ml Tube Feeding 40 ml # Voids 3 2 # Bowel Movements 2 1 Objective WDWN NAD reduced breath sounds bilaterally without rhonchi or wheeze [id number] without MRG NABS nontender no HSM no CCE reduced ROM nonfocal Microbiology Date/Time Source Procedure Growth Status 11/02/19 20:30 Blood Blood Culture - Preliminary NO GROWTH AFTER 48 HOURS Resulted 11/02/19 20:15 Blood Blood Culture - Preliminary NO GROWTH AFTER 48 HOURS Resulted 11/02/19 20:45 Nasal Nares - Final Complete 11/02/19 20:45 Nasal Nares - Final Complete 11/02/19 20:38 Nasal Nares MRSA Culture - Final NO METHICILLIN RESISTANT STAPH AUREUS... Complete 11/02/19 20:45 Urine,Clean Catch Urine Culture - Final NO GROWTH AFTER 48 HOURS Complete 11/02/19 20:38 Rectum VRE Culture - Final NO VANCOMYCIN RESISTANT ENTEROCOCCUS ... Complete Laboratory Tests 11/05/19 07:30: Sodium Level 149H, Potassium Level 4.1, Chloride Level 101, Carbon Dioxide Level 39H, Anion Gap 7, Blood Urea Nitrogen 76H, Creatinine 3.7H, Estimat Glomerular Filtration Rate 14.3, Glucose Level 130H, Calcium Level 9.8, Magnesium Level 4.0H, Total Bilirubin 0.4, Aspartate Amino Transf (AST/SGOT) 23 , Alanine Aminotransferase (ALT/SGPT) 13, Alkaline Phosphatase 97, Pro-B-Type Natriuretic Peptide 550H, Total Protein 8.0, Albumin 2.6L, Globulin 5.4, Albumin /Globulin Ratio 0.5L Current Medications Medications (Trade) Dose Ordered Sig/Aaron Route PRN Reason Start Time Stop Time Status Last Admin Dose Admin Albuterol/ Ipratropium (Albuterol/ Ipratropium) 3 ml Q4HRT HHN 11/05/19 07:00 11/07/19 22:59 11/05/19 07:26 Aspirin (ASA) 81 mg DAILY GT 11/05/19 09:00 12/03/19 08:59 Clonidine HCl (Catapres Tab) 0.1 mg Q6H PRN GT SBP>160 11/05/19 06:00 12/05/19 05:59 Dextrose (Dextrose 50%) 25 ml Q30M PRN IV Hypoglycemia 11/05/19 06:30 12/02/19 22:29 Dextrose (Dextrose 50%) 50 ml Q30M PRN IV Hypoglycemia 11/05/19 06:30 12/02/19 22:29 Docusate Sodium (Colace) 100 mg BID GT 11/05/19 09:00 12/03/19 08:59 Gabapentin (Neurontin) 100 mg BID GT 11/05/19 09:00 12/03/19 08:59 Heparin Sodium (Porcine) (Heparin 5000 units/ml) 5,000 units EVERY 12 HOURS SUBQ 11/05/19 09:00 12/03/19 08:59 Insulin Aspart (NovoLOG) BEFORE MEALS AND HS SUBQ 11/05/19 06:30 12/03/19 06:29 Insulin Detemir (Levemir) 6 units BID SUBQ 11/05/19 09:00 12/03/19 08:59 Lactulose (Cephulac) 20 gm DAILY PRN GT Constipation 11/05/19 06:15 12/02/19 06:14 Lansoprazole (Prevacid) 30 mg DAILY@0630 GT 11/05/19 06:30 12/03/19 06:29 11/05/19 06:23 Levetiracetam (Keppra) 1,000 mg Q12HR GT 11/05/19 09:00 12/03/19 08:59 Levothyroxine Sodium (Synthroid) 75 mcg DAILY@0630 GT 11/05/19 06:30 12/03/19 06:29 11/05/19 06:23 Magnesium Hydroxide (Mom) 30 ml DAILY PRN GT Constipation 11/05/19 06:15 12/02/19 06:14 Metoprolol Tartrate (Lopressor) 25 mg EVERY 12 HOURS GT 11/05/19 09:00 12/03/19 08:59 Piperacillin Sod/ Tazobactam Sod 3.375 gm/Sodium Chloride 110 ml @ 27.5 mls/hr Q12H IVPB 11/05/19 12:00 11/10/19 00:00 Polyethylene Glycol (Miralax) 17 gm BEDTIME GT 11/05/19 21:00 12/03/19 20:59 Sodium Chloride 1,000 ml @ 75 mls/hr [id number] IV 11/05/19 06:00 12/04/19 19:59 11/05/19 06:24 Torey Douglass MD Nov 05, 2019 10:29
[2019-11-05] MEDS: Docusate 100mg/10ml Liq GT SCH ×2 (10:35→17:08)
[2019-11-05] MEDS: Aspirin Baby 81mg GT SCH (10:36)
[2019-11-05] MEDS: Levemir Flexpen SUBQ SCH ×2 (10:38→17:09)
[2019-11-05] MEDS: Heparin 5000 units/ml inj SUBQ SCH ×2 (10:40→20:48)
[2019-11-05 12:00] VITALS: BP 108/53
--- NOTE | 2019-11-05 12:30 | Consultation ---
DATE OF CONSULTATION: 11/04/2019 GASTROENTEROLOGY CONSULTATION CONSULTING PHYSICIAN: Darrell Griffith M.D. CHIEF COMPLAINT: I was asked to see this patient by Dr. Jeffrey Crowder, for gastrojejunostomy feeding management. HISTORY OF PRESENT ILLNESS: The patient is an unfortunate 79-year-old woman, who was debilitated, bedbound, and nonresponsive, who was brought back from a half-way for respiratory distress. The patient has had a longstanding history of dysphagia and has required a feeding tube for enteral feeding access. More recently as she was found to have difficulty tolerating her feedings with gastroparesis and residuals of aspiration and therefore the gastrostomy was converted to jejunostomy catheter. This was done at an outside hospital and then subsequently more recently when she was admitted to [facility] with the tube that was removed and replaced and once again converted to jejunostomy catheter. The patient was doing well and the gastrostomy tube was left to maintain suction during the hospital stay. She was discharged to half-way, but now she returns for recurrent respiratory distress and aspiration. The gastrostomy tube was confirmed to have been placed to gravity drainage throughout the stay at the half-way. The patient herself is completely nonverbal and unable to provide any history. Most of the information is only available from the chart. PAST MEDICAL HISTORY: History of stroke, encephalopathy, bedbound state, contractures, hypertension, diabetes, seizure disorder, dysphagia, gastroparesis. PAST SURGICAL HISTORY: Status post gastrojejunostomy catheter placement. FAMILY HISTORY: Noncontributory. SOCIAL HISTORY: The patient resides in a half-way and her daughter looks after her affairs. There is no history of smoking or drinking. REVIEW OF SYSTEMS: Otherwise negative. PHYSICAL EXAMINATION: GENERAL: Debilitated woman, seen in her room. HEENT: Normocephalic, atraumatic. NECK: Supple. CHEST: Revealed scattered rhonchi. CARDIOVASCULAR: Revealed regular rate. ABDOMEN: Soft. Gastrojejunostomy catheter in good position. EXTREMITIES: Revealed contractures. LABORATORY DATA: Noted. ASSESSMENT: This patient presents with respiratory distress, which is being treated and the patient is improving. The patient is at risk for aspiration of oral secretions and therefore she will require aggressive oral hygiene and even despite that she may still continue to aspirate due to poor airway control. She also is at risk for her regurgitation of gastric contents and therefore gastric port should be placed to low intermittent suction and feeding can be continued through jejunostomy catheter. The patient's overall prognosis is poor due to her obtunded state, the contractures, bedbound state, aspiration risk, and overall weakness. RECOMMENDATIONS: 1. Continue jejunostomy tube feeding. 2. Elevate head of bed. 3. Gastrostomy tube to low intermittent suction. 4. Jejunostomy tube feeding. 5. Pulmonary toilet. 6. Oral hygiene. Thank you for asking me to participate in the care of this patient. Darrell Griffith M.D. DR: DELAI JOB#: [id number] CC: JUAN MANUEL
[2019-11-05] MEDS ORDERED: 1/2 NS 1000ml IV ONE (12:51)
[2019-11-05] MEDS ORDERED: Tubing IV Secondary IV ONE (12:51)
--- NOTE | 2019-11-05 13:56 | NUR ---
NURSE NOTES: pt coughing unable to expectorate sputum, appears congested, suctioned x2 pt via nasotrach , moderate output of yellowish sputum. no sob no distress. pt tolerated well. hob elevated to 30 degrees. cleaned pt, kept pt comfortable. ivf running. bed in lowest position, locked.
[2019-11-05 16:00] VITALS: BP 118/70
--- NOTE | 2019-11-05 16:01 | General Progress Note ---
Assessment/Plan Status: stable, progressing Assessment/Plan: Assessment - gastroparesis - OBS - dysphagia Recommendations - J tube feeds - GT to LIS - oral hygiene Subjective Allergies: Coded Allergies: No Known Allergies (Verified , 12/31/09) Subjective Above noted tolerating TF G to LIS Objective Last 24 Hour Vital Signs Date Time Temp Pulse Resp B/P (MAP) Pulse Ox O2 Delivery O2 Flow Rate FiO2 11/05/19 15:42 91 18 99 Nasal Cannula 2.0 28 88 18 99 11/05/19 12:00 98.9 97 17 108/53 (71) 99 11/05/19 11:06 87 16 99 Nasal Cannula 2.0 28 89 18 99 11/05/19 09:00 89 105/59 11/05/19 09:00 Nasal Cannula 2.0 11/05/19 08:00 98.5 89 19 113/69 (84) 99 11/05/19 07:26 99 Nasal Cannula 2.0 28 11/05/19 07:26 84 18 100 Nasal Cannula 2.0 28 88 18 99 11/05/19 04:00 97.5 94 16 115/62 (79) 99 11/05/19 04:00 93 11/05/19 03:28 96 16 99 Nasal Cannula 2.0 28 94 16 98 11/05/19 00:00 90 11/05/19 00:00 96.0 92 19 105/55 (72) 92 11/04/19 23:09 63 18 98 Nasal Cannula 2.0 28 60 18 97 11/04/19 21:01 Nasal Cannula 2.0 11/04/19 21:00 74 110/50 11/04/19 20:00 88 11/04/19 20:00 97.2 94 20 117/56 (76) 100 11/04/19 19:38 90 18 99 Nasal Cannula 2.0 28 88 18 98 11/04/19 19:37 98 Nasal Cannula 2.0 28 11/04/19 16:00 97.7 91 18 124/55 (78) 95 11/04/19 16:00 88 Intake and Output 11/04/19 11/05/19 19:00 07:00 Intake Total 40 ml Balance 40 ml Tube Feeding 40 ml # Voids 3 2 # Bowel Movements 2 1 Laboratory Tests 11/05/19 07:30: Sodium Level 149H, Potassium Level 4.1, Chloride Level 101, Carbon Dioxide Level 39H, Anion Gap 7, Blood Urea Nitrogen 76H, Creatinine 3.7H, Estimat Glomerular Filtration Rate 14.3, Glucose Level 130H, Calcium Level 9.8, Magnesium Level 4.0H, Total Bilirubin 0.4, Aspartate Amino Transf (AST/SGOT) 23 , Alanine Aminotransferase (ALT/SGPT) 13, Alkaline Phosphatase 97, Pro-B-Type Natriuretic Peptide 550H, Total Protein 8.0, Albumin 2.6L, Globulin 5.4, Albumin /Globulin Ratio 0.5L Height (Feet): 5 Height (Inches): 4.00 Weight (Pounds): 160 Objective WDWN NCAT supple CTA RRR Abd soft ND NT no edema Darrell Griffith MD Nov 05, 2019 16:01
--- NOTE | 2019-11-05 19:00 | NUR ---
NURSE NOTES: During shift,re-position done, proper incontinent skin care done, no skin issue. GJ is intact, Gastric drainage is 250cc, brownish output,suction and oral care done.
--- NOTE | 2019-11-05 19:25 | NUR ---
NURSE NOTES: Received patient on bed, asleep but easily arousable. on o2 cannula at 2lpm. no sob. with jt/gtube intact and patent running glucerna 1.2 at 45 ml/hr. gtube connected to low intermittent suction. with iv line on the right hand running 1/2 ns @75 ml/hr. provided rest and comfort.keep head of bed elevated. bed locked and in lowest position. call light and light button withinn easy reach. will continue plan of care.
--- NOTE | 2019-11-05 19:32 | NUR ---
HAND-OFF: Report given to
--- NOTE | 2019-11-05 19:40 | NUR ---
HAND-OFF: Report given to tish white.
--- NOTE | 2019-11-05 19:45 | NUR ---
NURSE NOTES: RECEIVED PATIENT FROM FELY LAMAS. PATIENT IS AWAKE, AAOX0, NON-VERBAL, ON NC 2L , NO ACUTE DISTRESS NOTED. J-TUBE AND G-TUBE IN PLACE, INTACT AND PATENT, FLUSHES WELL. PATIENT IS TOLERATING FEEDING WELL. IV ON RIGHT HAND IS INTACT AND PATENT. OLD SCAR NOTED ON SACRAL, PICTURE TAKEN AND UPLOADED. BED IS LOCKED AND LOW, BED ALARMS ACTIVE, SIDE RAILS UP X2 AND CALL LIGHT IS WITHIN REACH. WILL CONTINUE TO MONITOR.
[2019-11-05 20:00] VITALS: BP 133/63
[2019-11-05] MEDS: Miralax 17gm pkt GT SCH (20:49)
[2019-11-06] VITALS: BP 132/73
[2019-11-06] MEDS: Piperacillin/Tazobactam 3.375 GM in NS 110 ML IVPB SCH ×2 (01:03→11:19)
--- NOTE | 2019-11-06 01:45 | Progress Note ---
DATE: 11/05/2019 CARDIOLOGY PROGRESS NOTE SUBJECTIVE: Tolerating feeds. G-tube to low intermittent suction. J tube with feedings. Less congested, on respiratory hygiene. OBJECTIVE: VITAL SIGNS: Blood pressure 118/70, pulse 84, respirations 18, afebrile, oxygen saturation 98% on 2 liters. LUNGS: Coarse breath sounds. Few rhonchi. CARDIAC: Regular rhythm and rate. Normal S1, S2. A 1/6 systolic murmur at base. ABDOMEN: Soft. EXTREMITIES: No edema. LABORATORY DATA: Cultures to date negative. Magnesium is 4. Pro-natriuretic peptide 550. Albumin 2.6. BUN 76, creatinine 3.7, sodium 149, potassium 4.1, bicarb 39. IMPRESSION: 1. Acute on chronic renal failure. 2. Dehydration. 3. Hypernatremia. 4. Contraction alkalosis. 5. Chronic diastolic congestive heart failure. 6. Hypertensive heart disease. 7. Dysphagia. 8. G-tube. 9. Advanced dementia. 10. Moderate protein-calorie malnutrition. PLAN: 1. No diuretic therapy on board. 2. Titrate insulin dosing. 3. Maintain beta-carmen. 4. Continue free water replacement by IV route at increased rate. 5. Monitor volume status and cardiorenal function closely. Kavon Peña M.D. DR: JANEY JOB#: [id number] CC:
[2019-11-06] MEDS: Albuterol/Ipratropium 3ml neb HHN SCH ×6 (02:31→22:49)
[2019-11-06 04:00] VITALS: BP 129/80
[2019-11-06] MEDS: NovoLOG Insulin Flexpen SUBQ SCH ×4 (06:27→20:45)
[2019-11-06 07:21] LABS: BASOPHILS % (AUTO) 0.7 % (0.0-2.0); EOSINOPHILS % (AUTO) 3.9 % (0.0-3.0); HEMOGLOBIN 8.7 G/DL (12.0-16.0); LYMPHOCYTES % (AUTO) 19.1 % (20.0-45.0); MEAN CORPUSCULAR VOLUME 89 FL (80-99); MONOCYTES % (AUTO) 9.5 % (1.0-10.0); NEUTROPHILS % (AUTO) 66.7 % (45.0-75.0); PLATELET COUNT 472 K/UL (150-450); RED BLOOD COUNT 3.14 M/UL (4.20-5.40); RED CELL DISTRIBUTION WIDTH 15.5 % (11.6-14.8); WHITE BLOOD COUNT 8.8 K/UL (4.8-10.8)
--- NOTE | 2019-11-06 07:28 | NUR ---
HAND-OFF: Report given to FELY Melendez.
--- NOTE | 2019-11-06 07:32 | General Progress Note ---
Assessment/Plan Status: stable, progressing Assessment/Plan: Assessment - gastroparesis - OBS - dysphagia - s/p GJ tube Recommendations - J tube feeds - GT to LIS - oral hygiene - Elevate HOB Subjective Allergies: Coded Allergies: No Known Allergies (Verified , 12/31/09) Subjective Above noted tolerating TF G to LIS Objective Last 24 Hour Vital Signs Date Time Temp Pulse Resp B/P (MAP) Pulse Ox O2 Delivery O2 Flow Rate FiO2 11/06/19 04:00 98.3 92 17 129/80 (96) 96 11/06/19 02:31 87 18 99 Nasal Cannula 2.0 28 81 18 97 11/06/19 00:00 97.0 93 16 132/73 (92) 93 11/05/19 22:57 85 18 100 Nasal Cannula 2.0 28 87 18 98 11/05/19 21:00 Nasal Cannula 2.0 11/05/19 20:44 86 133/63 11/05/19 20:00 98.0 86 16 133/63 (86) 96 11/05/19 19:58 98 Nasal Cannula 2.0 28 11/05/19 19:58 88 18 100 Nasal Cannula 2.0 28 84 18 97 11/05/19 16:00 97.5 84 18 118/70 (86) 98 11/05/19 15:42 91 18 99 Nasal Cannula 2.0 28 88 18 99 11/05/19 12:00 98.9 97 17 108/53 (71) 99 11/05/19 11:06 87 16 99 Nasal Cannula 2.0 28 89 18 99 11/05/19 09:00 89 105/59 11/05/19 09:00 Nasal Cannula 2.0 11/05/19 08:00 98.5 89 19 113/69 (84) 99 Intake and Output 11/05/19 11/06/19 19:00 07:00 Intake Total 1872.5 ml 810.0 ml Output Total 500 ml 600 ml Balance 1372.5 ml 210.0 ml Free Water 400 ml 100 ml IV Total 982.5 ml 110.0 ml Tube Feeding 490 ml 600 ml Output Gastric Drainage Total 500 ml 600 ml # Voids 2 # Bowel Movements 2 Laboratory Tests 11/06/19 06:55: White Blood Count [Pending], Red Blood Count [Pending], Hemoglobin [Pending], Hematocrit [Pending], Mean Corpuscular Volume [Pending], Mean Corpuscular Hemoglobin [Pending], Mean Corpuscular Hemoglobin Concent [Pending], Red Cell Distribution Width [Pending], Platelet Count [Pending], Mean Platelet Volume [ Pending], Neutrophils (%) (Auto) [Pending], Lymphocytes (%) (Auto) [Pending], Monocytes (%) (Auto) [Pending], Eosinophils (%) (Auto) [Pending], Basophils (%) (Auto) [Pending], Sodium Level [Pending], Potassium Level [Pending], Chloride Level [Pending], Carbon Dioxide Level [Pending], Blood Urea Nitrogen [Pending], Creatinine [Pending], Estimat Glomerular Filtration Rate [Pending], Glucose Level [Pending], Calcium Level [Pending] Height (Feet): 5 Height (Inches): 4.00 Weight (Pounds): 160 Objective WDWN NCAT supple CTA RRR Abd soft ND NT no edema Darrell Griffith MD Nov 06, 2019 07:32
--- NOTE | 2019-11-06 07:40 | NUR ---
NURSE NOTES: received patient in bed, asleep no sign of distress , on O2 at 2Lpm , no fascial grimace noted, on J-tube in place intact and patent, feeding clamped at this time will resume at 9 am, G-tube conneted to LCWS, On fall and aspiration precaution, HOB elevated at all times , kept clean dry and comfortable, needs met and anticipated tish andrade
[2019-11-06 07:54] LABS: ANION GAP 6 mmol/L (5-15); BLOOD UREA NITROGEN 66 mg/dL (7-18); CALCIUM 9.1 MG/DL (8.5-10.1); CHLORIDE 100 MMOL/L (98-107); CREATININE 3.4 MG/DL (0.55-1.30); SODIUM 148 MMOL/L (136-145)
[2019-11-06 08:00] VITALS: BP 109/55
[2019-11-06 08:01] LABS: CARBON DIOXIDE 44 MMOL/L (21-32)
[2019-11-06] MEDS: Aspirin Baby 81mg GT SCH (08:33)
[2019-11-06] MEDS: Docusate 100mg/10ml Liq GT SCH ×2 (08:33→17:12)
[2019-11-06] MEDS: Heparin 5000 units/ml inj SUBQ SCH ×2 (08:37→20:35)
[2019-11-06] MEDS: Levemir Flexpen SUBQ SCH ×2 (08:37→17:14)
--- NOTE | 2019-11-06 08:48 | Pulmonology Progress Note ---
Assessment/Plan Assessment/Plan Chronic respiratory failure, chronic hypercapnia, chronic hypoxemia, alkalosis due to compensation, leukocytosis of unclear significance, chronic renal failure, and chronic kidney disease. PLAN care noted respiratory care without change monitor for worsening congestion adjust meds for noted labs monitor oxygen needs and adjust antibiotics noted and reviewed meds noted monitor for aspiration/suction and encourage cough elevate head impression, plan, and exam edited and reviewed in detail care discussed with RN Subjective ROS Limited/Unobtainable: Yes Allergies: Coded Allergies: No Known Allergies (Verified , 12/31/09) Subjective confused remains on oxygen mild congestion still present overall care reviewed changes in labs noted Objective Last 24 Hour Vital Signs Date Time Temp Pulse Resp B/P (MAP) Pulse Ox O2 Delivery O2 Flow Rate FiO2 11/06/19 08:34 82 109/55 11/06/19 08:00 97.9 82 19 109/55 (73) 96 11/06/19 04:00 98.3 92 17 129/80 (96) 96 11/06/19 02:31 87 18 99 Nasal Cannula 2.0 28 81 18 97 11/06/19 00:00 97.0 93 16 132/73 (92) 93 11/05/19 22:57 85 18 100 Nasal Cannula 2.0 28 87 18 98 11/05/19 21:00 Nasal Cannula 2.0 11/05/19 20:44 86 133/63 11/05/19 20:00 98.0 86 16 133/63 (86) 96 11/05/19 19:58 98 Nasal Cannula 2.0 28 11/05/19 19:58 88 18 100 Nasal Cannula 2.0 28 84 18 97 11/05/19 16:00 97.5 84 18 118/70 (86) 98 11/05/19 15:42 91 18 99 Nasal Cannula 2.0 28 88 18 99 11/05/19 12:00 98.9 97 17 108/53 (71) 99 11/05/19 11:06 87 16 99 Nasal Cannula 2.0 28 89 18 99 11/05/19 09:00 89 105/59 11/05/19 09:00 Nasal Cannula 2.0 Intake and Output 11/05/19 11/06/19 19:00 07:00 Intake Total 1872.5 ml 810.0 ml Output Total 500 ml 600 ml Balance 1372.5 ml 210.0 ml Free Water 400 ml 100 ml IV Total 982.5 ml 110.0 ml Tube Feeding 490 ml 600 ml Output Gastric Drainage Total 500 ml 600 ml # Voids 2 # Bowel Movements 2 Objective WDWN NAD reduced breath sounds bilaterally without rhonchi or wheeze [id number] without MRG NABS nontender no HSM no CCE reduced ROM nonfocal Microbiology Date/Time Source Procedure Growth Status 11/05/19 23:30 Sputum Gram Stain - Final Resulted 11/05/19 23:30 Sputum Sputum Culture Pending Resulted Laboratory Tests 11/06/19 06:55: White Blood Count 8.8, Red Blood Count 3.14L, Hemoglobin 8.7L, Hematocrit 28.0L , Mean Corpuscular Volume 89, Mean Corpuscular Hemoglobin 27.7, Mean Corpuscular Hemoglobin Concent 31.0L, Red Cell Distribution Width 15.5H, Platelet Count 472H, Mean Platelet Volume 5.4L, Neutrophils (%) (Auto) 66.7, Lymphocytes (%) (Auto) 19.1L, Monocytes (%) (Auto) 9.5, Eosinophils (%) (Auto) 3.9H, Basophils (%) (Auto) 0.7, Sodium Level 148H, Potassium Level 4.0, Chloride Level 100, Carbon Dioxide Level 44*H, Anion Gap 6, Blood Urea Nitrogen 66H, Creatinine 3.4H, Estimat Glomerular Filtration Rate 15.8, Glucose Level 146H, Calcium Level 9.1 Current Medications Medications (Trade) Dose Ordered Sig/Aaron Route PRN Reason Start Time Stop Time Status Last Admin Dose Admin Albuterol/ Ipratropium (Albuterol/ Ipratropium) 3 ml Q4HRT HHN 11/05/19 07:00 11/07/19 22:59 11/06/19 02:31 Aspirin (ASA) 81 mg DAILY GT 11/05/19 09:00 12/03/19 08:59 11/06/19 08:33 Clonidine HCl (Catapres Tab) 0.1 mg Q6H PRN GT SBP>160 11/05/19 06:00 12/05/19 05:59 Dextrose (Dextrose 50%) 25 ml Q30M PRN IV Hypoglycemia 11/05/19 06:30 12/02/19 22:29 Dextrose (Dextrose 50%) 50 ml Q30M PRN IV Hypoglycemia 11/05/19 06:30 12/02/19 22:29 Docusate Sodium (Colace) 100 mg BID GT 11/05/19 09:00 12/03/19 08:59 11/06/19 08:33 Gabapentin (Neurontin) 100 mg BID GT 11/05/19 09:00 12/03/19 08:59 11/06/19 08:34 Heparin Sodium (Porcine) (Heparin 5000 units/ml) 5,000 units EVERY 12 HOURS SUBQ 11/05/19 09:00 12/03/19 08:59 11/06/19 08:37 Insulin Aspart (NovoLOG) BEFORE MEALS AND HS SUBQ 11/05/19 06:30 12/03/19 06:29 11/06/19 06:27 Insulin Detemir (Levemir) 6 units BID SUBQ 11/05/19 09:00 12/03/19 08:59 11/06/19 08:37 Lactulose (Cephulac) 20 gm DAILY PRN GT Constipation 11/05/19 06:15 12/02/19 06:14 Lansoprazole (Prevacid) 30 mg DAILY@0630 GT 11/05/19 06:30 12/03/19 06:29 11/06/19 06:18 Levetiracetam (Keppra) 1,000 mg Q12HR GT 11/05/19 09:00 12/03/19 08:59 11/06/19 08:34 Levothyroxine Sodium (Synthroid) 75 mcg DAILY@0630 GT 11/05/19 06:30 12/03/19 06:29 11/06/19 06:18 Magnesium Hydroxide (Mom) 30 ml DAILY PRN GT Constipation 11/05/19 06:15 12/02/19 06:14 Metoprolol Tartrate (Lopressor) 25 mg EVERY 12 HOURS GT 11/05/19 09:00 12/03/19 08:59 11/06/19 08:34 Piperacillin Sod/ Tazobactam Sod 3.375 gm/Sodium Chloride 110 ml @ 27.5 mls/hr Q12H IVPB 11/05/19 12:00 11/10/19 00:00 11/06/19 01:03 Polyethylene Glycol (Miralax) 17 gm BEDTIME GT 11/05/19 21:00 12/03/19 20:59 Sodium Chloride 1,000 ml @ 100 mls/hr Q10H IV 11/06/19 06:00 12/06/19 05:59 11/06/19 06:18 Torey Douglass MD Nov 06, 2019 08:48
--- NOTE | 2019-11-06 10:41 | Infectious Diseases Prog Note ---
Assessment/Plan Assessment/Plan antibiotics ; zosyn A 1. pneumonia 2. leucocytosis improving 3. diabetes mellitus 4. hypertension 5. seizures 6. CHF 7. stroke 8. renal failure P 1. continue zosyn 2. will follow up cultures Subjective ROS Limited/Unobtainable: Yes Allergies: Coded Allergies: No Known Allergies (Verified , 12/31/09) Objective Vital Signs Last 24 Hour Vital Signs Date Time Temp Pulse Resp B/P (MAP) Pulse Ox O2 Delivery O2 Flow Rate FiO2 11/06/19 08:40 Nasal Cannula 2.0 11/06/19 08:34 82 109/55 11/06/19 08:00 97.9 82 19 109/55 (73) 96 11/06/19 04:00 98.3 92 17 129/80 (96) 96 11/06/19 02:31 87 18 99 Nasal Cannula 2.0 28 81 18 97 11/06/19 00:00 97.0 93 16 132/73 (92) 93 11/05/19 22:57 85 18 100 Nasal Cannula 2.0 28 87 18 98 11/05/19 21:00 Nasal Cannula 2.0 11/05/19 20:44 86 133/63 11/05/19 20:00 98.0 86 16 133/63 (86) 96 11/05/19 19:58 98 Nasal Cannula 2.0 28 11/05/19 19:58 88 18 100 Nasal Cannula 2.0 28 84 18 97 11/05/19 16:00 97.5 84 18 118/70 (86) 98 11/05/19 15:42 91 18 99 Nasal Cannula 2.0 28 88 18 99 11/05/19 12:00 98.9 97 17 108/53 (71) 99 11/05/19 11:06 87 16 99 Nasal Cannula 2.0 28 89 18 99 Height (Feet): 5 Height (Inches): 4.00 Weight (Pounds): 160 Respiratory/Chest: lungs clear Cardiovascular: normal rate, regular rhythm, no gallop/murmur Abdomen: soft, non tender, other - GT Extremities: no edema Microbiology Date/Time Source Procedure Growth Status 11/05/19 23:30 Sputum Gram Stain - Final Resulted 11/05/19 23:30 Sputum Sputum Culture Pending Resulted Laboratory Tests Test 11/06/19 06:55 White Blood Count 8.8 K/UL (4.8-10.8) Red Blood Count 3.14 M/UL (4.20-5.40) L Hemoglobin 8.7 G/DL (12.0-16.0) L Hematocrit 28.0 % (37.0-47.0) L Mean Corpuscular Volume 89 FL (80-99) Mean Corpuscular Hemoglobin 27.7 PG (27.0-31.0) Mean Corpuscular Hemoglobin Concent 31.0 G/DL (32.0-36.0) L Red Cell Distribution Width 15.5 % (11.6-14.8) H Platelet Count 472 K/UL (150-450) H Mean Platelet Volume 5.4 FL (6.5-10.1) L Neutrophils (%) (Auto) 66.7 % (45.0-75.0) Lymphocytes (%) (Auto) 19.1 % (20.0-45.0) L Monocytes (%) (Auto) 9.5 % (1.0-10.0) Eosinophils (%) (Auto) 3.9 % (0.0-3.0) H Basophils (%) (Auto) 0.7 % (0.0-2.0) Sodium Level 148 MMOL/L (136-145) H Potassium Level 4.0 MMOL/L (3.5-5.1) Chloride Level 100 MMOL/L (98-107) Carbon Dioxide Level 44 MMOL/L (21-32) *H Anion Gap 6 mmol/L (5-15) Blood Urea Nitrogen 66 mg/dL (7-18) H Creatinine 3.4 MG/DL (0.55-1.30) H Estimat Glomerular Filtration Rate 15.8 mL/min (>60) Glucose Level 146 MG/DL (74-106) H Calcium Level 9.1 MG/DL (8.5-10.1) Current Medications Medications (Trade) Dose Ordered Sig/Aaron Route PRN Reason Start Time Stop Time Status Last Admin Dose Admin Albuterol/ Ipratropium (Albuterol/ Ipratropium) 3 ml Q4HRT HHN 11/05/19 07:00 11/07/19 22:59 11/06/19 02:31 Aspirin (ASA) 81 mg DAILY GT 11/05/19 09:00 12/03/19 08:59 11/06/19 08:33 Clonidine HCl (Catapres Tab) 0.1 mg Q6H PRN GT SBP>160 11/05/19 06:00 12/05/19 05:59 Dextrose (Dextrose 50%) 25 ml Q30M PRN IV Hypoglycemia 11/05/19 06:30 12/02/19 22:29 Dextrose (Dextrose 50%) 50 ml Q30M PRN IV Hypoglycemia 11/05/19 06:30 12/02/19 22:29 Docusate Sodium (Colace) 100 mg BID GT 11/05/19 09:00 12/03/19 08:59 11/06/19 08:33 Gabapentin (Neurontin) 100 mg BID GT 11/05/19 09:00 12/03/19 08:59 11/06/19 08:34 Heparin Sodium (Porcine) (Heparin 5000 units/ml) 5,000 units EVERY 12 HOURS SUBQ 11/05/19 09:00 12/03/19 08:59 11/06/19 08:37 Insulin Aspart (NovoLOG) BEFORE MEALS AND HS SUBQ 11/05/19 06:30 12/03/19 06:29 11/06/19 06:27 Insulin Detemir (Levemir) 6 units BID SUBQ 11/05/19 09:00 12/03/19 08:59 11/06/19 08:37 Lactulose (Cephulac) 20 gm DAILY PRN GT Constipation 11/05/19 06:15 12/02/19 06:14 Lansoprazole (Prevacid) 30 mg DAILY@0630 GT 11/05/19 06:30 12/03/19 06:29 11/06/19 06:18 Levetiracetam (Keppra) 1,000 mg Q12HR GT 11/05/19 09:00 12/03/19 08:59 11/06/19 08:34 Levothyroxine Sodium (Synthroid) 75 mcg DAILY@0630 GT 11/05/19 06:30 12/03/19 06:29 11/06/19 06:18 Magnesium Hydroxide (Mom) 30 ml DAILY PRN GT Constipation 11/05/19 06:15 12/02/19 06:14 Metoprolol Tartrate (Lopressor) 25 mg EVERY 12 HOURS GT 11/05/19 09:00 12/03/19 08:59 11/06/19 08:34 Piperacillin Sod/ Tazobactam Sod 3.375 gm/Sodium Chloride 110 ml @ 27.5 mls/hr Q12H IVPB 11/05/19 12:00 11/10/19 00:00 11/06/19 01:03 Polyethylene Glycol (Miralax) 17 gm BEDTIME GT 11/05/19 21:00 12/03/19 20:59 Sodium Chloride 1,000 ml @ 100 mls/hr Q10H IV 11/06/19 06:00 12/06/19 05:59 11/06/19 06:18 Tyrel Prieto MD Nov 06, 2019 10:41
--- NOTE | 2019-11-06 11:20 | General Progress Note ---
Assessment/Plan Problem List: (1) Dementia ICD Codes: F03.90 - Unspecified dementia without behavioral disturbance SNOMED: 62602941 (2) UTI (urinary tract infection) ICD Codes: N39.0 - Urinary tract infection, site not specified SNOMED: 52691885 (3) Diabetes mellitus ICD Codes: E11.9 - Type 2 diabetes mellitus without complications SNOMED: 06743947 (4) Pneumonia ICD Codes: J18.9 - Pneumonia, unspecified organism SNOMED: 553216939 (5) ARF (acute renal failure) ICD Codes: N17.9 - Acute kidney failure, unspecified SNOMED: 49807812 (6) Shortness of breath ICD Codes: R06.02 - Shortness of breath SNOMED: 871481454 (7) CHF (congestive heart failure) ICD Codes: I50.9 - Heart failure, unspecified SNOMED: 45244684 Status: stable, progressing Assessment/Plan: resp rx suctioning as needed j tube feeds g port to suction iv abx per id follow up cultures cautious iv hydration as needed sz rx d/w sister nicola x 30 mins. aware of poc. aware that pts prognosis for meaningful is poor. she is hopeful pt will become ambulatory and conversant again dc planning Subjective ROS Limited/Unobtainable: No Constitutional: Reports: malaise, weakness HEENT: Reports: no symptoms Cardiovascular: Reports: no symptoms Respiratory: Reports: cough Gastrointestinal/Abdominal: Reports: difficulty swallowing Genitourinary: Reports: no symptoms Neurologic/Psychiatric: Reports: pre-existing deficit, seizure Endocrine: Reports: no symptoms Hematologic/Lymphatic: Reports: anemia Allergies: Coded Allergies: No Known Allergies (Verified , 12/31/09) All Systems: reviewed and negative except above Subjective no events. awake. minimal congestion. tolerating J tube feeds. G tube to LIS- minimal output currently. no fever or chills. no sob. labs reviewed Objective Last 24 Hour Vital Signs Date Time Temp Pulse Resp B/P (MAP) Pulse Ox O2 Delivery O2 Flow Rate FiO2 11/06/19 08:40 Nasal Cannula 2.0 11/06/19 08:34 82 109/55 11/06/19 08:00 97.9 82 19 109/55 (73) 96 11/06/19 04:00 98.3 92 17 129/80 (96) 96 11/06/19 02:31 87 18 99 Nasal Cannula 2.0 28 81 18 97 11/06/19 00:00 97.0 93 16 132/73 (92) 93 11/05/19 22:57 85 18 100 Nasal Cannula 2.0 28 87 18 98 11/05/19 21:00 Nasal Cannula 2.0 11/05/19 20:44 86 133/63 11/05/19 20:00 98.0 86 16 133/63 (86) 96 11/05/19 19:58 98 Nasal Cannula 2.0 28 11/05/19 19:58 88 18 100 Nasal Cannula 2.0 28 84 18 97 11/05/19 16:00 97.5 84 18 118/70 (86) 98 11/05/19 15:42 91 18 99 Nasal Cannula 2.0 28 88 18 99 11/05/19 12:00 98.9 97 17 108/53 (71) 99 Intake and Output 11/05/19 11/06/19 19:00 07:00 Intake Total 1872.5 ml 875.0 ml Output Total 500 ml 600 ml Balance 1372.5 ml 275.0 ml Free Water 400 ml 100 ml IV Total 982.5 ml 175.0 ml Tube Feeding 490 ml 600 ml Output Gastric Drainage Total 500 ml 600 ml # Voids 2 # Bowel Movements 2 Laboratory Tests 11/06/19 06:55: White Blood Count 8.8, Red Blood Count 3.14L, Hemoglobin 8.7L, Hematocrit 28.0L , Mean Corpuscular Volume 89, Mean Corpuscular Hemoglobin 27.7, Mean Corpuscular Hemoglobin Concent 31.0L, Red Cell Distribution Width 15.5H, Platelet Count 472H, Mean Platelet Volume 5.4L, Neutrophils (%) (Auto) 66.7, Lymphocytes (%) (Auto) 19.1L, Monocytes (%) (Auto) 9.5, Eosinophils (%) (Auto) 3.9H, Basophils (%) (Auto) 0.7, Sodium Level 148H, Potassium Level 4.0, Chloride Level 100, Carbon Dioxide Level 44*H, Anion Gap 6, Blood Urea Nitrogen 66H, Creatinine 3.4H, Estimat Glomerular Filtration Rate 15.8, Glucose Level 146H, Calcium Level 9.1 Height (Feet): 5 Height (Inches): 4.00 Weight (Pounds): 160 General Appearance: WD/WN, alert, confused Neck: non-tender, normal alignment, supple Cardiovascular: normal peripheral pulses, normal rate, regular rhythm Respiratory/Chest: chest wall non-tender, lungs clear, normal breath sounds, no respiratory distress Abdomen: normal bowel sounds, non tender, soft, no organomegaly Edema: no edema noted Arm (L), no edema noted Arm (R), no edema noted Leg (L), no edema noted Leg (R), no edema noted Pedal (L), no edema noted Pedal (R), no edema noted Generalized Neurologic: alert, disoriented, unresponsive, aphasia Jeffrey Crowder MD Nov 06, 2019 11:20
[2019-11-06 11:47] VITALS: BP 102/50
[2019-11-06 15:54] VITALS: BP 115/59
--- NOTE | 2019-11-06 19:25 | NUR ---
HAND-OFF: Report given to FELY Wild RN.
[2019-11-06 20:00] VITALS: BP 104/64
[2019-11-06] MEDS: Miralax 17gm pkt GT SCH (20:25)
--- NOTE | 2019-11-06 21:30 | NUR ---
NURSE NOTES: RECEIVED PATIENT FROM FELY PIERCE. PATIENT IS AWAKE, AAOX0, NON-VERBAL, ON NC 2L , NO ACUTE DISTRESS NOTED. J-TUBE AND G-TUBE IN PLACE, INTACT AND PATENT, FLUSHES WELL. G-TUBE SUCTION IN PLACE, ON LOW INTERMITTENT SUCTION. PATIENT IS TOLERATING FEEDING WELL. IV ON RIGHT HAND IS INTACT AND PATENT. OLD SCAR NOTED ON SACRAL, OPTIFOAM APPLIED. BED IS LOCKED AND LOW, BED ALARMS ACTIVE, SIDE RAILS UP X2 AND CALL LIGHT IS WITHIN REACH. WILL CONTINUE TO MONITOR.
--- NOTE | 2019-11-06 22:15 | Progress Note ---
DATE: 11/06/2019 CARDIOLOGY PROGRESS NOTE SUBJECTIVE: The patient minimal congestion, tolerating feedings, no shortness of breath. OBJECTIVE: VITAL SIGNS: Blood pressure 109/55, pule 82, respiratory rate 19. LUNGS: Bilateral breath sounds. Few rhonchi. CARDIAC: Regular rhythm and rate. Normal S1, S2. ABDOMEN: Soft. GJ tube intact. EXTREMITIES: No edema. LABORATORY DATA: White count 8.8, hemoglobin 8.7. Sodium 148, potassium 4, bicarb 44, BUN 66, creatinine 3.4. IMPRESSION: 1. Acute on chronic renal failure. 2. Contraction alkalosis. 3. Dehydration. 4. Hypernatremia. 5. Aspiration risk. 6. Status post aspiration pneumonia. 7. Chronic diastolic congestive heart failure. 8. Anemia of chronic kidney disease. 9. Advanced dementia. PLAN: 1. Respiratory hygiene. 2. Antimicrobials. 3. Continue hypotonic IV fluid hydration. 4. Monitor laboratory studies. 5. No diuretic therapy. 6. Beta-carmen as is. 7. Respiratory hygiene. Kavon Peña M.D. DR: Morris JOB#: [id number] CC:
[2019-11-07] VITALS: BP 110/60
[2019-11-07] MEDS: Piperacillin/Tazobactam 3.375 GM in NS 110 ML IVPB SCH ×2 (00:29→11:48)
[2019-11-07] MEDS: Albuterol/Ipratropium 3ml neb HHN SCH ×5 (02:59→19:38)
[2019-11-07 04:00] VITALS: BP 190/86
[2019-11-07] MEDS: NovoLOG Insulin Flexpen SUBQ SCH ×4 (06:19→21:00)
[2019-11-07 06:37] LABS: BASOPHILS % (AUTO) 0.5 % (0.0-2.0); HEMATOCRIT 28.8 % (37.0-47.0); LYMPHOCYTES % (AUTO) 19.5 % (20.0-45.0); MEAN CORPUSCULAR VOLUME 89 FL (80-99); MONOCYTES % (AUTO) 9.8 % (1.0-10.0); NEUTROPHILS % (AUTO) 65.2 % (45.0-75.0); PLATELET COUNT 424 K/UL (150-450); RED BLOOD COUNT 3.23 M/UL (4.20-5.40); RED CELL DISTRIBUTION WIDTH 15.3 % (11.6-14.8); WHITE BLOOD COUNT 7.8 K/UL (4.8-10.8)
[2019-11-07 07:22] LABS: ALANINE AMINOTRANSFERASE 34 U/L (12-78); ALBUMIN 2.4 G/DL (3.4-5.0); ALBUMIN/GLOBULIN RATIO 0.5 (1.0-2.7); ALKALINE PHOSPHATASE 109 U/L (46-116); ANION GAP 11 mmol/L (5-15); ASPARTATE AMINO TRANSFERASE 40 U/L (15-37); BILIRUBIN,TOTAL 0.5 MG/DL (0.2-1.0); CALCIUM 8.9 MG/DL (8.5-10.1); CARBON DIOXIDE 35 MMOL/L (21-32); CHLORIDE 101 MMOL/L (98-107); CREATININE 3.1 MG/DL (0.55-1.30); POTASSIUM 4.1 MMOL/L (3.5-5.1); SODIUM 147 MMOL/L (136-145)
[2019-11-07 07:29] LABS: BLOOD UREA NITROGEN 56 mg/dL (7-18)
--- NOTE | 2019-11-07 07:48 | NUR ---
HAND-OFF: Report given to FELY Rodriguez.
[2019-11-07 08:00] VITALS: BP 113/58
--- NOTE | 2019-11-07 08:07 | NUR ---
NURSE NOTES: Received patient in bed awake. No SOB or acute distress. IV line intact and patent. GTube and JTube intact, feeding off, to turn on at 9am. HOB elevated. Bed locked in lowest position. Call light within reach. Will continue plan of care.
--- NOTE | 2019-11-07 08:43 | Pulmonology Progress Note ---
Assessment/Plan Assessment/Plan Chronic respiratory failure, chronic hypercapnia, chronic hypoxemia, alkalosis due to compensation, leukocytosis of unclear significance, chronic renal failure, and chronic kidney disease. PLAN care noted repeat cxr and abg for change and further intervention respiratory care as is monitor for worsening congestion adjust meds for noted labs monitor oxygen needs and adjust antibiotics noted and reviewed meds noted monitor for aspiration/suction and encourage cough elevate head impression, plan, and exam edited and reviewed in detail care discussed with RN Subjective ROS Limited/Unobtainable: Yes Allergies: Coded Allergies: No Known Allergies (Verified , 12/31/09) Subjective confused on oxygen mild congestion still present overall care reviewed changes in labs noted Objective Last 24 Hour Vital Signs Date Time Temp Pulse Resp B/P (MAP) Pulse Ox O2 Delivery O2 Flow Rate FiO2 11/07/19 08:00 98.4 80 18 113/58 (76) 99 11/07/19 07:59 77 16 100 Nasal Cannula 2.0 28 79 16 97 11/07/19 07:59 97 Nasal Cannula 2.0 28 11/07/19 04:00 97.9 89 23 190/86 (120) 95 11/07/19 02:59 74 16 100 Nasal Cannula 2.0 28 77 15 98 11/07/19 00:00 97.8 83 21 110/60 (77) 95 11/06/19 22:47 87 18 100 Nasal Cannula 2.0 28 84 18 98 11/06/19 21:00 Nasal Cannula 2.0 11/06/19 20:25 86 104/64 11/06/19 20:00 98.0 86 22 104/64 (77) 97 11/06/19 18:54 97 Nasal Cannula 2.0 28 11/06/19 18:52 88 18 99 Nasal Cannula 2.0 28 87 18 97 11/06/19 15:54 98.0 89 17 115/59 (77) 97 11/06/19 15:22 85 18 99 Nasal Cannula 2.0 28 82 18 95 11/06/19 11:47 96.2 80 19 102/50 (67) 91 11/06/19 08:59 97 Nasal Cannula 2.0 28 Intake and Output 11/06/19 11/07/19 19:00 07:00 Intake Total 1830.0 ml 1710.0 ml Output Total 600 ml Balance 1230.0 ml 1710.0 ml Intake Oral 0 ml Free Water 250 ml 150 ml IV Total 1080.0 ml 1010.0 ml Tube Feeding 500 ml 550 ml Output Gastric Drainage Total 600 ml # Voids 2 4 # Bowel Movements 1 2 Objective WDWN NAD reduced breath sounds bilaterally without rhonchi or wheeze [id number] without MRG NABS nontender no HSM no CCE reduced ROM nonfocal Microbiology Date/Time Source Procedure Growth Status 11/05/19 23:30 Sputum Gram Stain - Final Resulted 11/05/19 23:30 Sputum Culture - Preliminary Gram Negative Arslan Resulted Laboratory Tests 11/07/19 05:50: White Blood Count 7.8, Red Blood Count 3.23L, Hemoglobin 9.0L, Hematocrit 28.8L , Mean Corpuscular Volume 89, Mean Corpuscular Hemoglobin 28.0, Mean Corpuscular Hemoglobin Concent 31.4L, Red Cell Distribution Width 15.3H, Platelet Count 424, Mean Platelet Volume 5.7L, Neutrophils (%) (Auto) 65.2, Lymphocytes (%) (Auto) 19.5L, Monocytes (%) (Auto) 9.8, Eosinophils (%) (Auto) 5.0H, Basophils (%) (Auto) 0.5, Sodium Level 147H, Potassium Level 4.1, Chloride Level 101, Carbon Dioxide Level 35H, Anion Gap 11, Blood Urea Nitrogen 56H, Creatinine 3.1H, Estimat Glomerular Filtration Rate 17.6, Glucose Level 269 #H, Calcium Level 8.9, Total Bilirubin 0.5, Aspartate Amino Transf (AST/SGOT) 40H, Alanine Aminotransferase (ALT/SGPT) 34, Alkaline Phosphatase 109, Total Protein 7.5, Albumin 2.4L, Globulin 5.1, Albumin/Globulin Ratio 0.5L Current Medications Medications (Trade) Dose Ordered Sig/Aaron Route PRN Reason Start Time Stop Time Status Last Admin Dose Admin Albuterol/ Ipratropium (Albuterol/ Ipratropium) 3 ml Q4HRT HHN 11/05/19 07:00 11/07/19 22:59 11/07/19 08:12 Aspirin (ASA) 81 mg DAILY GT 11/05/19 09:00 12/03/19 08:59 11/06/19 08:33 Clonidine HCl (Catapres Tab) 0.1 mg Q6H PRN GT SBP>160 11/05/19 06:00 12/05/19 05:59 Dextrose (Dextrose 50%) 25 ml Q30M PRN IV Hypoglycemia 11/05/19 06:30 12/02/19 22:29 Dextrose (Dextrose 50%) 50 ml Q30M PRN IV Hypoglycemia 11/05/19 06:30 12/02/19 22:29 Docusate Sodium (Colace) 100 mg BID GT 11/05/19 09:00 12/03/19 08:59 11/06/19 17:12 Gabapentin (Neurontin) 100 mg BID GT 11/05/19 09:00 12/03/19 08:59 11/06/19 17:12 Heparin Sodium (Porcine) (Heparin 5000 units/ml) 5,000 units EVERY 12 HOURS SUBQ 11/05/19 09:00 12/03/19 08:59 11/06/19 20:35 Insulin Aspart (NovoLOG) BEFORE MEALS AND HS SUBQ 11/05/19 06:30 12/03/19 06:29 11/07/19 06:19 Insulin Detemir (Levemir) 6 units BID SUBQ 11/05/19 09:00 12/03/19 08:59 11/06/19 17:14 Lactulose (Cephulac) 20 gm DAILY PRN GT Constipation 11/05/19 06:15 12/02/19 06:14 Lansoprazole (Prevacid) 30 mg DAILY@0630 GT 11/05/19 06:30 12/03/19 06:29 11/07/19 06:19 Levetiracetam (Keppra) 1,000 mg Q12HR GT 11/05/19 09:00 12/03/19 08:59 11/06/19 20:33 Levothyroxine Sodium (Synthroid) 75 mcg DAILY@0630 GT 11/05/19 06:30 12/03/19 06:29 11/07/19 06:19 Magnesium Hydroxide (Mom) 30 ml DAILY PRN GT Constipation 11/05/19 06:15 12/02/19 06:14 Metoprolol Tartrate (Lopressor) 25 mg EVERY 12 HOURS GT 11/05/19 09:00 12/03/19 08:59 11/06/19 08:34 Piperacillin Sod/ Tazobactam Sod 3.375 gm/Sodium Chloride 110 ml @ 27.5 mls/hr Q12H IVPB 11/05/19 12:00 11/10/19 00:00 11/07/19 00:29 Polyethylene Glycol (Miralax) 17 gm BEDTIME GT 11/05/19 21:00 12/03/19 20:59 Sodium Chloride 1,000 ml @ 100 mls/hr Q10H IV 11/06/19 06:00 12/06/19 05:59 11/07/19 02:00 Torey Douglass MD Nov 07, 2019 08:43
[2019-11-07] MEDS: Docusate 100mg/10ml Liq GT SCH ×2 (09:07→17:36)
[2019-11-07] MEDS: Aspirin Baby 81mg GT SCH (09:07)
[2019-11-07] MEDS: Heparin 5000 units/ml inj SUBQ SCH ×2 (09:09→21:16)
[2019-11-07] MEDS: Levemir Flexpen SUBQ SCH ×2 (09:11→17:38)
--- NOTE | 2019-11-07 10:46 | Infectious Diseases Prog Note ---
Assessment/Plan Assessment/Plan antibiotics ; zosyn A 1. pneumonia 2. leucocytosis improving 3. diabetes mellitus 4. hypertension 5. seizures 6. CHF 7. stroke 8. renal failure P 1. continue zosyn 2. will follow up cultures Subjective ROS Limited/Unobtainable: Yes Allergies: Coded Allergies: No Known Allergies (Verified , 12/31/09) Objective Vital Signs Last 24 Hour Vital Signs Date Time Temp Pulse Resp B/P (MAP) Pulse Ox O2 Delivery O2 Flow Rate FiO2 11/07/19 09:08 80 113/58 11/07/19 08:00 98.4 80 18 113/58 (76) 99 11/07/19 07:59 77 16 100 Nasal Cannula 2.0 28 79 16 97 11/07/19 07:59 97 Nasal Cannula 2.0 28 11/07/19 04:00 97.9 89 23 190/86 (120) 95 11/07/19 02:59 74 16 100 Nasal Cannula 2.0 28 77 15 98 11/07/19 00:00 97.8 83 21 110/60 (77) 95 11/06/19 22:47 87 18 100 Nasal Cannula 2.0 28 84 18 98 11/06/19 21:00 Nasal Cannula 2.0 11/06/19 20:25 86 104/64 11/06/19 20:00 98.0 86 22 104/64 (77) 97 11/06/19 18:54 97 Nasal Cannula 2.0 28 11/06/19 18:52 88 18 99 Nasal Cannula 2.0 28 87 18 97 11/06/19 15:54 98.0 89 17 115/59 (77) 97 11/06/19 15:22 85 18 99 Nasal Cannula 2.0 28 82 18 95 11/06/19 11:47 96.2 80 19 102/50 (67) 91 Height (Feet): 5 Height (Inches): 4.00 Weight (Pounds): 160 Respiratory/Chest: rhonchi - bilaterally Cardiovascular: normal rate, regular rhythm, no gallop/murmur Abdomen: soft, non tender, other - GT Extremities: no edema Microbiology Date/Time Source Procedure Growth Status 11/05/19 23:30 Sputum Gram Stain - Final Resulted 11/05/19 23:30 Sputum Culture - Preliminary Gram Negative Arslan Resulted Laboratory Tests Test 11/07/19 05:50 11/07/19 09:01 White Blood Count 7.8 K/UL (4.8-10.8) Red Blood Count 3.23 M/UL (4.20-5.40) L Hemoglobin 9.0 G/DL (12.0-16.0) L Hematocrit 28.8 % (37.0-47.0) L Mean Corpuscular Volume 89 FL (80-99) Mean Corpuscular Hemoglobin 28.0 PG (27.0-31.0) Mean Corpuscular Hemoglobin Concent 31.4 G/DL (32.0-36.0) L Red Cell Distribution Width 15.3 % (11.6-14.8) H Platelet Count 424 K/UL (150-450) Mean Platelet Volume 5.7 FL (6.5-10.1) L Neutrophils (%) (Auto) 65.2 % (45.0-75.0) Lymphocytes (%) (Auto) 19.5 % (20.0-45.0) L Monocytes (%) (Auto) 9.8 % (1.0-10.0) Eosinophils (%) (Auto) 5.0 % (0.0-3.0) H Basophils (%) (Auto) 0.5 % (0.0-2.0) Sodium Level 147 MMOL/L (136-145) H Potassium Level 4.1 MMOL/L (3.5-5.1) Chloride Level 101 MMOL/L (98-107) Carbon Dioxide Level 35 MMOL/L (21-32) H Anion Gap 11 mmol/L (5-15) Blood Urea Nitrogen 56 mg/dL (7-18) H Creatinine 3.1 MG/DL (0.55-1.30) H Estimat Glomerular Filtration Rate 17.6 mL/min (>60) Glucose Level 269 MG/DL (74-106) #H Calcium Level 8.9 MG/DL (8.5-10.1) Total Bilirubin 0.5 MG/DL (0.2-1.0) Aspartate Amino Transf (AST/SGOT) 40 U/L (15-37) H Alanine Aminotransferase (ALT/SGPT) 34 U/L (12-78) Alkaline Phosphatase 109 U/L (46-116) Total Protein 7.5 G/DL (6.4-8.2) Albumin 2.4 G/DL (3.4-5.0) L Globulin 5.1 g/dL Albumin/Globulin Ratio 0.5 (1.0-2.7) L Arterial Blood pH 7.460 (7.350-7.450) Arterial Blood Partial Pressure CO2 58.9 mmHg (35.0-45.0) *H Arterial Blood Partial Pressure O2 219.2 mmHg (75.0-100.0) H Arterial Blood HCO3 41.2 mmol/L (22.0-26.0) *H Arterial Blood Oxygen Saturation 98.5 % (95-100) Arterial Blood Base Excess 15.5 (-2-2) *H Danilo Test Positive Current Medications Medications (Trade) Dose Ordered Sig/Aaorn Route PRN Reason Start Time Stop Time Status Last Admin Dose Admin Albuterol/ Ipratropium (Albuterol/ Ipratropium) 3 ml Q4HRT HHN 11/05/19 07:00 11/07/19 22:59 11/07/19 08:12 Aspirin (ASA) 81 mg DAILY GT 11/05/19 09:00 12/03/19 08:59 11/07/19 09:07 Clonidine HCl (Catapres Tab) 0.1 mg Q6H PRN GT SBP>160 11/05/19 06:00 12/05/19 05:59 Dextrose (Dextrose 50%) 25 ml Q30M PRN IV Hypoglycemia 11/05/19 06:30 12/02/19 22:29 Dextrose (Dextrose 50%) 50 ml Q30M PRN IV Hypoglycemia 11/05/19 06:30 12/02/19 22:29 Docusate Sodium (Colace) 100 mg BID GT 11/05/19 09:00 12/03/19 08:59 11/07/19 09:07 Gabapentin (Neurontin) 100 mg BID GT 11/05/19 09:00 12/03/19 08:59 11/07/19 09:08 Heparin Sodium (Porcine) (Heparin 5000 units/ml) 5,000 units EVERY 12 HOURS SUBQ 11/05/19 09:00 12/03/19 08:59 11/07/19 09:09 Insulin Aspart (NovoLOG) BEFORE MEALS AND HS SUBQ 11/05/19 06:30 12/03/19 06:29 11/07/19 06:19 Insulin Detemir (Levemir) 6 units BID SUBQ 11/05/19 09:00 12/03/19 08:59 11/07/19 09:11 Lactulose (Cephulac) 20 gm DAILY PRN GT Constipation 11/05/19 06:15 12/02/19 06:14 Lansoprazole (Prevacid) 30 mg DAILY@0630 GT 11/05/19 06:30 12/03/19 06:29 11/07/19 06:19 Levetiracetam (Keppra) 1,000 mg Q12HR GT 11/05/19 09:00 12/03/19 08:59 11/07/19 09:08 Levothyroxine Sodium (Synthroid) 75 mcg DAILY@0630 GT 11/05/19 06:30 12/03/19 06:29 11/07/19 06:19 Magnesium Hydroxide (Mom) 30 ml DAILY PRN GT Constipation 11/05/19 06:15 12/02/19 06:14 Metoprolol Tartrate (Lopressor) 25 mg EVERY 12 HOURS GT 11/05/19 09:00 12/03/19 08:59 11/07/19 09:08 Piperacillin Sod/ Tazobactam Sod 3.375 gm/Sodium Chloride 110 ml @ 27.5 mls/hr Q12H IVPB 11/05/19 12:00 11/10/19 00:00 11/07/19 00:29 Polyethylene Glycol (Miralax) 17 gm BEDTIME GT 11/05/19 21:00 12/03/19 20:59 Sodium Chloride 1,000 ml @ 100 mls/hr Q10H IV 11/06/19 06:00 12/06/19 05:59 11/07/19 02:00 Tyrel Prieto MD Nov 07, 2019 10:46
--- NOTE | 2019-11-07 10:46 | NUR ---
RD ASSESSMENT & RECOMMENDATIONS SEE CARE ACTIVITY FOR COMPLETE ASSESSMENT DAILY ESTIMATED NEEDS: Needs based on DM, CHF, bedbound 57.7kg abw 23-30 kcals/kg 6324-7605 total kcals 1.2-1.5 g protein/kg 69-87 g total protein 25-30 mL/kg 5136-0563 total fluid mLs NUTRITION DIAGNOSIS: 1) Altered nutrition related lab values r/t DM, CKD, as evidenced by pt w/ elev BUN (67-> 56), Cr (3.4-> 3.1), elev BG (300's,400's, now improved) 2) Swallowing difficulty r/t dysphagia as evidenced by pt is Jtube dep. CURRENT TF:Glucerna 1.2 @50 x20 ENTERAL NUTRITION RECOMMENDATIONS: Glucerna 1.2 @ 60ml/hr x 22 hrs to provide 1320ml, 1584 kcal, 79g pro, 1063ml free H2O * As able advance TF to rate of 60ml/hr * INCREASE TF RUN to 22 hrs to better meet est nutritional needs * Hold 1 hr before and after Synthroid med * HOB over 30 degrees/ water flush per MD ---- With current accuchecks in the 200's. rec to maintain current TF order, Would INCREASE water flushes to 100ml q4 hrs to better meet hydration needs. 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
--- NOTE | 2019-11-07 10:51 | NUR ---
NURSE NOTES: ABG results relayed to Dr Crowder. Awaiting orders.
--- NOTE | 2019-11-07 11:23 | Diagnostic Imaging Report ---
Indication: Dyspnea Comparison: 11/02/2019 A single view chest radiograph was obtained. Findings: There is mild right basal atelectasis. The heart is enlarged. Mild interstitial edema may be present with some prominence of pulmonary vascularity noted. Bones are osteopenic. IMPRESSION: Suspected mild interstitial edema. Mild right basal atelectasis.
[2019-11-07 12:00] VITALS: BP 117/67
--- NOTE | 2019-11-07 13:40 | General Progress Note ---
Assessment/Plan Problem List: (1) Dementia ICD Codes: F03.90 - Unspecified dementia without behavioral disturbance SNOMED: 41275186 (2) UTI (urinary tract infection) ICD Codes: N39.0 - Urinary tract infection, site not specified SNOMED: 87870981 (3) Diabetes mellitus ICD Codes: E11.9 - Type 2 diabetes mellitus without complications SNOMED: 41243044 (4) Pneumonia ICD Codes: J18.9 - Pneumonia, unspecified organism SNOMED: 119572993 (5) ARF (acute renal failure) ICD Codes: N17.9 - Acute kidney failure, unspecified SNOMED: 86183844 (6) Shortness of breath ICD Codes: R06.02 - Shortness of breath SNOMED: 660846008 (7) CHF (congestive heart failure) ICD Codes: I50.9 - Heart failure, unspecified SNOMED: 76358925 Status: stable, progressing Assessment/Plan: resp rx suctioning as needed j tube feeds g port to suction iv abx per id follow up cultures cautious iv hydration as needed sz rx dc planning will need LIS device at [facility]- d/w correctional case manager Subjective ROS Limited/Unobtainable: Yes Constitutional: Reports: malaise, weakness HEENT: Reports: no symptoms Cardiovascular: Reports: no symptoms Respiratory: Reports: cough, sputum Gastrointestinal/Abdominal: Reports: difficulty swallowing Genitourinary: Reports: no symptoms Neurologic/Psychiatric: Reports: pre-existing deficit, seizure Endocrine: Reports: no symptoms Hematologic/Lymphatic: Reports: no symptoms Allergies: Coded Allergies: No Known Allergies (Verified , 12/31/09) All Systems: reviewed and negative except above Subjective no events. awake. minimal congestion. tolerating J tube feeds. G tube to LIS- minimal output currently. no fever or chills. no sob. labs reviewed Objective Last 24 Hour Vital Signs Date Time Temp Pulse Resp B/P (MAP) Pulse Ox O2 Delivery O2 Flow Rate FiO2 11/07/19 12:00 98.6 76 18 117/67 (84) 99 11/07/19 11:30 79 16 100 Nasal Cannula 2.0 28 78 16 97 11/07/19 09:08 80 113/58 11/07/19 09:00 Nasal Cannula 2.0 11/07/19 08:00 98.4 80 18 113/58 (76) 99 11/07/19 07:59 77 16 100 Nasal Cannula 2.0 28 79 16 97 11/07/19 07:59 97 Nasal Cannula 2.0 28 11/07/19 04:00 97.9 89 23 190/86 (120) 95 11/07/19 02:59 74 16 100 Nasal Cannula 2.0 28 77 15 98 11/07/19 00:00 97.8 83 21 110/60 (77) 95 11/06/19 22:47 87 18 100 Nasal Cannula 2.0 28 84 18 98 11/06/19 21:00 Nasal Cannula 2.0 11/06/19 20:25 86 104/64 11/06/19 20:00 98.0 86 22 104/64 (77) 97 11/06/19 18:54 97 Nasal Cannula 2.0 28 11/06/19 18:52 88 18 99 Nasal Cannula 2.0 28 87 18 97 11/06/19 15:54 98.0 89 17 115/59 (77) 97 11/06/19 15:22 85 18 99 Nasal Cannula 2.0 28 82 18 95 Intake and Output 11/06/19 11/07/19 19:00 07:00 Intake Total 1830.0 ml 1710.0 ml Output Total 600 ml Balance 1230.0 ml 1710.0 ml Intake Oral 0 ml Free Water 250 ml 150 ml IV Total 1080.0 ml 1010.0 ml Tube Feeding 500 ml 550 ml Output Gastric Drainage Total 600 ml # Voids 2 4 # Bowel Movements 1 2 Laboratory Tests 11/07/19 05:50: White Blood Count 7.8, Red Blood Count 3.23L, Hemoglobin 9.0L, Hematocrit 28.8L , Mean Corpuscular Volume 89, Mean Corpuscular Hemoglobin 28.0, Mean Corpuscular Hemoglobin Concent 31.4L, Red Cell Distribution Width 15.3H, Platelet Count 424, Mean Platelet Volume 5.7L, Neutrophils (%) (Auto) 65.2, Lymphocytes (%) (Auto) 19.5L, Monocytes (%) (Auto) 9.8, Eosinophils (%) (Auto) 5.0H, Basophils (%) (Auto) 0.5, Sodium Level 147H, Potassium Level 4.1, Chloride Level 101, Carbon Dioxide Level 35H, Anion Gap 11, Blood Urea Nitrogen 56H, Creatinine 3.1H, Estimat Glomerular Filtration Rate 17.6, Glucose Level 269 #H, Calcium Level 8.9, Total Bilirubin 0.5, Aspartate Amino Transf (AST/SGOT) 40H, Alanine Aminotransferase (ALT/SGPT) 34, Alkaline Phosphatase 109, Total Protein 7.5, Albumin 2.4L, Globulin 5.1, Albumin/Globulin Ratio 0.5L 11/07/19 09:01: Arterial Blood pH 7.460H, Arterial Blood Partial Pressure CO2 58.9*H, Arterial Blood Partial Pressure O2 219.2H, Arterial Blood HCO3 41.2*H, Arterial Blood Oxygen Saturation 98.5, Arterial Blood Base Excess 15.5*H, Danilo Test Positive Height (Feet): 5 Height (Inches): 4.00 Weight (Pounds): 160 Objective General Appearance: WD/WN, alert, confused Neck: non-tender, normal alignment, supple Cardiovascular: normal peripheral pulses, normal rate, regular rhythm Respiratory/Chest: chest wall non-tender, lungs clear, normal breath sounds, no respiratory distress Abdomen: normal bowel sounds, non tender, soft, no organomegaly Edema: no edema noted Arm (L), no edema noted Arm (R), no edema noted Leg (L), no edema noted Leg (R), no edema noted Pedal (L), no edema noted Pedal (R), no edema noted Generalized Neurologic: alert, disoriented, unresponsive, aphasia Jeffrey Crowder MD Nov 07, 2019 13:40
--- NOTE | 2019-11-07 14:07 | NUR ---
*-* INSURANCE *-* ALL CLINICALS AND REVIEWS HAVE BEEN FAXED TO: [employer] NO CM OR TRACKING YET # [phone] FAX# [phone] REVIEWS/CLINICALS
--- NOTE | 2019-11-07 14:15 | NUR ---
NURSE NOTES: O2 decreased to 1LPM as ordered by Dr Crowder.
[2019-11-07 16:00] VITALS: BP 124/76
--- NOTE | 2019-11-07 19:48 | NUR ---
HAND-OFF: Report given to minsu.
--- NOTE | 2019-11-07 19:50 | NUR ---
NURSE NOTES: Received report from FELY Rodriguez. Patient non-verbal. Breathing unlabored on 1L O2 via NC without distress. No s/s of discomfort or pain noted at this time. IV noted on right hand intact and patent running IVF ordered. Gtube and Jtube noted intact. Jtube running feeding and Gtube placed on low intermittent suctioning. Purewick on and working. Bed placed at the lowest with alarm, brake, and siderails up for patient safety. Call light placed within reach. Will continue to monitor and provide care as ordered.
[2019-11-07 20:00] VITALS: BP 127/50
[2019-11-07] MEDS: Miralax 17gm pkt GT SCH (21:00)
--- NOTE | 2019-11-07 22:09 | General Progress Note ---
Assessment/Plan Status: stable, progressing Assessment/Plan: Assessment - gastroparesis - OBS - dysphagia - s/p GJ tube Recommendations - J tube feeds - GT to LIS - oral hygiene - Elevate HOB Subjective Allergies: Coded Allergies: No Known Allergies (Verified , 12/31/09) Subjective Above noted tolerating TF G to LIS D/w sales engagement manager Objective Last 24 Hour Vital Signs Date Time Temp Pulse Resp B/P (MAP) Pulse Ox O2 Delivery O2 Flow Rate FiO2 11/07/19 21:13 87 121/84 11/07/19 19:48 88 20 98 Nasal Cannula 2.0 28 11/07/19 19:38 96 Nasal Cannula 2.0 28 11/07/19 19:38 85 18 96 Nasal Cannula 2.0 28 11/07/19 16:00 98.0 81 18 124/76 (92) 99 11/07/19 15:15 77 16 98 Nasal Cannula 2.0 28 74 16 96 11/07/19 12:00 98.6 76 18 117/67 (84) 99 11/07/19 11:30 79 16 100 Nasal Cannula 2.0 28 78 16 97 11/07/19 09:08 80 113/58 11/07/19 09:00 Nasal Cannula 2.0 11/07/19 08:00 98.4 80 18 113/58 (76) 99 11/07/19 07:59 77 16 100 Nasal Cannula 2.0 28 79 16 97 11/07/19 07:59 97 Nasal Cannula 2.0 28 11/07/19 04:00 97.9 89 23 190/86 (120) 95 11/07/19 02:59 74 16 100 Nasal Cannula 2.0 28 77 15 98 11/07/19 00:00 97.8 83 21 110/60 (77) 95 11/06/19 22:47 87 18 100 Nasal Cannula 2.0 28 84 18 98 Intake and Output 11/06/19 11/07/19 19:00 07:00 Intake Total 1830.0 ml 1710.0 ml Output Total 600 ml Balance 1230.0 ml 1710.0 ml Intake Oral 0 ml Free Water 250 ml 150 ml IV Total 1080.0 ml 1010.0 ml Tube Feeding 500 ml 550 ml Output Gastric Drainage Total 600 ml # Voids 2 4 # Bowel Movements 1 2 Laboratory Tests 11/07/19 05:50: White Blood Count 7.8, Red Blood Count 3.23L, Hemoglobin 9.0L, Hematocrit 28.8L , Mean Corpuscular Volume 89, Mean Corpuscular Hemoglobin 28.0, Mean Corpuscular Hemoglobin Concent 31.4L, Red Cell Distribution Width 15.3H, Platelet Count 424, Mean Platelet Volume 5.7L, Neutrophils (%) (Auto) 65.2, Lymphocytes (%) (Auto) 19.5L, Monocytes (%) (Auto) 9.8, Eosinophils (%) (Auto) 5.0H, Basophils (%) (Auto) 0.5, Sodium Level 147H, Potassium Level 4.1, Chloride Level 101, Carbon Dioxide Level 35H, Anion Gap 11, Blood Urea Nitrogen 56H, Creatinine 3.1H, Estimat Glomerular Filtration Rate 17.6, Glucose Level 269 #H, Calcium Level 8.9, Total Bilirubin 0.5, Aspartate Amino Transf (AST/SGOT) 40H, Alanine Aminotransferase (ALT/SGPT) 34, Alkaline Phosphatase 109, Total Protein 7.5, Albumin 2.4L, Globulin 5.1, Albumin/Globulin Ratio 0.5L 11/07/19 09:01: Arterial Blood pH 7.460H, Arterial Blood Partial Pressure CO2 58.9*H, Arterial Blood Partial Pressure O2 219.2H, Arterial Blood HCO3 41.2*H, Arterial Blood Oxygen Saturation 98.5, Arterial Blood Base Excess 15.5*H, Danilo Test Positive Height (Feet): 5 Height (Inches): 4.00 Weight (Pounds): 160 Objective WDWN NCAT supple CTA RRR Abd soft ND NT no edema Darrell Griffith MD Nov 07, 2019 22:09
[2019-11-08] VITALS: BP 108/62
[2019-11-08] MEDS: Piperacillin/Tazobactam 3.375 GM in NS 110 ML IVPB SCH (00:06)
[2019-11-08 04:00] VITALS: BP 105/55
--- NOTE | 2019-11-08 05:30 | NUR ---
NURSE NOTES: Provided proper incontinence care. Patient has BM x 1, soft and brown. Placed prophylactic dressing on sacral. Will continue to monitor.
[2019-11-08] MEDS: NovoLOG Insulin Flexpen SUBQ SCH ×4 (05:55→21:00)
--- NOTE | 2019-11-08 06:00 | Progress Note ---
DATE: 11/07/2019 CARDIOLOGY PROGRESS NOTE SUBJECTIVE: Still has congestion, requiring suctioning, aggressive respiratory management on feedings by J-tube. G-tube is to suction. PHYSICAL EXAMINATION: VITAL SIGNS: Blood pressure 127/50, pulse 81, respirations 16, afebrile, oxygen saturation 94% on 2 liters. LUNGS: Coarse breath sounds. Rhonchi. CARDIAC: Regular rhythm and rate. Normal S1, S2 with a fourth heart sound. ABDOMEN: Soft. EXTREMITIES: Trace edema. G-tube site intact. DIAGNOSTIC AND LABORATORY DATA: Chest x-ray reveals mild interstitial edema and atelectasis. is positive for gram-negative angeline. White count 7.8, hemoglobin 9. Sodium 147, potassium 4.1, bicarb 35, BUN 56, creatinine 3.1. ABG, 7.46, 59, 219. IMPRESSION: I do not feel the patient has acute congestive heart failure presently and radiographic findings are likely pulmonary related to infection. Blood pressure parameters were adequately controlled. Oxygenation is improved. Dehydration, hypernatremia, and alkalosis have improved with cautious hydration. PLAN: 1. Taper off IV fluids. 2. No diuresis. 3. Respiratory hygiene, antimicrobials, and insulin titration. 4. Maintain beta-blockade as it is. Kavon Peña M.D. DR: GOVIND JOB#: [id number] CC:
--- NOTE | 2019-11-08 07:20 | NUR ---
HAND-OFF: Report given to FELY Brewster. Plan of care endorsed.
--- NOTE | 2019-11-08 07:51 | NUR ---
NURSE NOTES: PT RESTING IN BED, CALM, IN NO APPARENT DISTRESS AT THIS TIME. PT IN HIGH-QUINTERO'S POSITION. PT WITH LOW INTERMITTENT SUCTION CONNECTED TO G-TUBE. TUBE FEEDING ON HOLD UNTIL 0900 ORDERED. BED IN LOWEST POSITION WITH BEDSIDE RAILS X3 RAISED. BED ALARM ON ZONE 1. WILL CONTINUE TO MONITOR.
[2019-11-08 08:00] VITALS: BP 102/53
[2019-11-08] MEDS: Docusate 100mg/10ml Liq GT SCH ×2 (08:39→17:07)
[2019-11-08] MEDS: Aspirin Baby 81mg GT SCH (08:39)
[2019-11-08] MEDS: Heparin 5000 units/ml inj SUBQ SCH ×2 (08:54→21:09)
[2019-11-08] MEDS: Levemir Flexpen SUBQ SCH ×2 (08:57→17:13)
--- NOTE | 2019-11-08 09:04 | Pulmonology Progress Note ---
Assessment/Plan Assessment/Plan Chronic respiratory failure, chronic hypercapnia, chronic hypoxemia, alkalosis due to compensation, leukocytosis of unclear significance, chronic renal failure, and chronic kidney disease. PLAN care noted findings noted for now continue same; avoid sedation respiratory care as is monitor for worsening congestion adjust meds for noted labs monitor oxygen needs and adjust antibiotics noted and reviewed meds noted monitor for aspiration/suction and encourage cough elevate head impression, plan, and exam edited and reviewed in detail care discussed with RN Subjective ROS Limited/Unobtainable: Yes Allergies: Coded Allergies: No Known Allergies (Verified , 12/31/09) Subjective confused on oxygen ABG noted no obvious distress mild congestion still present overall care reviewed changes in labs noted Objective Last 24 Hour Vital Signs Date Time Temp Pulse Resp B/P (MAP) Pulse Ox O2 Delivery O2 Flow Rate FiO2 11/08/19 08:00 97.6 92 16 102/53 (69) 94 11/08/19 07:38 98 Nasal Cannula 2.0 28 11/08/19 04:00 98.3 79 16 105/55 (72) 98 11/08/19 00:53 82 100 11/08/19 00:00 98.0 85 16 108/62 (77) 11/07/19 21:13 87 121/84 11/07/19 21:00 Nasal Cannula 2.0 11/07/19 20:00 97.9 81 16 127/50 (75) 94 11/07/19 19:48 88 20 98 Nasal Cannula 2.0 28 11/07/19 19:38 96 Nasal Cannula 2.0 28 11/07/19 19:38 85 18 96 Nasal Cannula 2.0 28 11/07/19 16:00 98.0 81 18 124/76 (92) 99 11/07/19 15:15 77 16 98 Nasal Cannula 2.0 28 74 16 96 11/07/19 12:00 98.6 76 18 117/67 (84) 99 11/07/19 11:30 79 16 100 Nasal Cannula 2.0 28 78 16 97 11/07/19 09:08 80 113/58 Intake and Output 11/07/19 11/08/19 19:00 07:00 Intake Total 710.0 ml 1300.0 ml Output Total 2600 ml Balance 710.0 ml -1300.0 ml Free Water 150 ml IV Total 710.0 ml 650.0 ml Tube Feeding 500 ml Output Urine Total 1000 ml Gastric Drainage Total 1600 ml # Voids 1 # Bowel Movements 2 Objective WDWN NAD reduced breath sounds bilaterally without rhonchi or wheeze [id number] without MRG NABS nontender no HSM no CCE reduced ROM nonfocal Microbiology Date/Time Source Procedure Growth Status 11/05/19 23:30 Sputum Gram Stain - Final Resulted 11/05/19 23:30 Sputum Culture - Preliminary Escherichia Coli Pseudomonas Aeruginosa Resulted Current Medications Medications (Trade) Dose Ordered Sig/Aaron Route PRN Reason Start Time Stop Time Status Last Admin Dose Admin Aspirin (ASA) 81 mg DAILY GT 11/05/19 09:00 12/03/19 08:59 11/08/19 08:39 Clonidine HCl (Catapres Tab) 0.1 mg Q6H PRN GT SBP>160 11/05/19 06:00 12/05/19 05:59 Dextrose (Dextrose 50%) 25 ml Q30M PRN IV Hypoglycemia 11/05/19 06:30 12/02/19 22:29 Dextrose (Dextrose 50%) 50 ml Q30M PRN IV Hypoglycemia 11/05/19 06:30 12/02/19 22:29 Docusate Sodium (Colace) 100 mg BID GT 11/05/19 09:00 12/03/19 08:59 11/08/19 08:39 Gabapentin (Neurontin) 100 mg BID GT 11/05/19 09:00 12/03/19 08:59 11/08/19 08:39 Heparin Sodium (Porcine) (Heparin 5000 units/ml) 5,000 units EVERY 12 HOURS SUBQ 11/05/19 09:00 12/03/19 08:59 11/08/19 08:54 Insulin Aspart (NovoLOG) BEFORE MEALS AND HS SUBQ 11/05/19 06:30 12/03/19 06:29 11/07/19 11:49 Insulin Detemir (Levemir) 6 units BID SUBQ 11/05/19 09:00 12/03/19 08:59 11/08/19 08:57 Lactulose (Cephulac) 20 gm DAILY PRN GT Constipation 11/05/19 06:15 12/02/19 06:14 Lansoprazole (Prevacid) 30 mg DAILY@0630 GT 11/05/19 06:30 12/03/19 06:29 11/08/19 06:03 Levetiracetam (Keppra) 1,000 mg Q12HR GT 11/05/19 09:00 12/03/19 08:59 11/08/19 08:39 Levothyroxine Sodium (Synthroid) 75 mcg DAILY@0630 GT 11/05/19 06:30 12/03/19 06:29 11/08/19 06:03 Magnesium Hydroxide (Mom) 30 ml DAILY PRN GT Constipation 11/05/19 06:15 12/02/19 06:14 Metoprolol Tartrate (Lopressor) 25 mg EVERY 12 HOURS GT 11/05/19 09:00 12/03/19 08:59 11/07/19 21:13 Piperacillin Sod/ Tazobactam Sod 3.375 gm/Sodium Chloride 110 ml @ 27.5 mls/hr Q12H IVPB 11/05/19 12:00 11/10/19 00:00 11/08/19 00:06 Polyethylene Glycol (Miralax) 17 gm BEDTIME GT 11/05/19 21:00 12/03/19 20:59 Sodium Chloride 1,000 ml @ 40 mls/hr Q24H IV 11/08/19 06:00 12/08/19 05:59 11/08/19 08:42 Torey Douglass MD Nov 08, 2019 09:04
--- NOTE | 2019-11-08 10:25 | Infectious Diseases Prog Note ---
"Assessment/Plan Assessment/Plan antibiotics ; zosyn A 1. e.coli | pseudomonas pneumonia 2. leucocytosis resolved 3. diabetes mellitus 4. hypertension 5. seizures 6. CHF 7. stroke 8. renal failure P 1. d/c zosyn 2. start levoquin 3. will follow up cultures Subjective ROS Limited/Unobtainable: Yes Allergies: Coded Allergies: No Known Allergies (Verified , 12/31/09) Objective Vital Signs Last 24 Hour Vital Signs Date Time Temp Pulse Resp B/P (MAP) Pulse Ox O2 Delivery O2 Flow Rate FiO2 11/08/19 09:00 Nasal Cannula 2.0 11/08/19 09:00 92 102/53 11/08/19 08:00 97.6 92 16 102/53 (69) 94 11/08/19 07:38 98 Nasal Cannula 2.0 28 11/08/19 04:00 98.3 79 16 105/55 (72) 98 11/08/19 00:53 82 100 11/08/19 00:00 98.0 85 16 108/62 (77) 11/07/19 21:13 87 121/84 11/07/19 21:00 Nasal Cannula 2.0 11/07/19 20:00 97.9 81 16 127/50 (75) 94 11/07/19 19:48 88 20 98 Nasal Cannula 2.0 28 11/07/19 19:38 96 Nasal Cannula 2.0 28 11/07/19 19:38 85 18 96 Nasal Cannula 2.0 28 11/07/19 16:00 98.0 81 18 124/76 (92) 99 11/07/19 15:15 77 16 98 Nasal Cannula 2.0 28 74 16 96 11/07/19 12:00 98.6 76 18 117/67 (84) 99 11/07/19 11:30 79 16 100 Nasal Cannula 2.0 28 78 16 97 Height (Feet): 5 Height (Inches): 4.00 Weight (Pounds): 160 Respiratory/Chest: lungs clear Cardiovascular: normal rate, regular rhythm, no gallop/murmur Abdomen: soft, non tender, other - GT Extremities: no edema Microbiology Date/Time Source Procedure Growth Status 11/05/19 23:30 Sputum Gram Stain - Final Resulted 11/05/19 23:30 Sputum Culture - Preliminary Escherichia Coli Pseudomonas Aeruginosa Resulted Current Medications Medications (Trade) Dose Ordered Sig/Aaron Route PRN Reason Start Time Stop Time Status Last Admin Dose Admin Aspirin (ASA) 81 mg DAILY GT 11/05/19 09:00 12/03/19 08:59 11/08/19 08:39 Clonidine HCl (Catapres Tab) 0.1 mg Q6H PRN GT SBP>160 11/05/19 06:00 12/05/19 05:59 Dextrose (Dextrose 50%) 25 ml Q30M PRN IV Hypoglycemia 11/05/19 06:30 12/02/19 22:29 Dextrose (Dextrose 50%) 50 ml Q30M PRN IV Hypoglycemia 11/05/19 06:30 12/02/19 22:29 Docusate Sodium (Colace) 100 mg BID GT 11/05/19 09:00 12/03/19 08:59 11/08/19 08:39 Gabapentin (Neurontin) 100 mg BID GT 11/05/19 09:00 12/03/19 08:59 11/08/19 08:39 Heparin Sodium (Porcine) (Heparin 5000 units/ml) 5,000 units EVERY 12 HOURS SUBQ 11/05/19 09:00 12/03/19 08:59 11/08/19 08:54 Insulin Aspart (NovoLOG) BEFORE MEALS AND HS SUBQ 11/05/19 06:30 12/03/19 06:29 11/07/19 11:49 Insulin Detemir (Levemir) 6 units BID SUBQ 11/05/19 09:00 12/03/19 08:59 11/08/19 08:57 Lactulose (Cephulac) 20 gm DAILY PRN GT Constipation 11/05/19 06:15 12/02/19 06:14 Lansoprazole (Prevacid) 30 mg DAILY@0630 GT 11/05/19 06:30 12/03/19 06:29 11/08/19 06:03 Levetiracetam (Keppra) 1,000 mg Q12HR GT 11/05/19 09:00 12/03/19 08:59 11/08/19 08:39 Levothyroxine Sodium (Synthroid) 75 mcg DAILY@0630 GT 11/05/19 06:30 12/03/19 06:29 11/08/19 06:03 Magnesium Hydroxide (Mom) 30 ml DAILY PRN GT Constipation 11/05/19 06:15 12/02/19 06:14 Metoprolol Tartrate (Lopressor) 25 mg EVERY 12 HOURS GT 11/05/19 09:00 12/03/19 08:59 11/07/19 21:13 Piperacillin Sod/ Tazobactam Sod 3.375 gm/Sodium Chloride 110 ml @ 27.5 mls/hr Q12H IVPB 11/05/19 12:00 11/10/19 00:00 11/08/19 00:06 Polyethylene Glycol (Miralax) 17 gm BEDTIME GT 11/05/19 21:00 12/03/19 20:59 Sodium Chloride 1,000 ml @ 40 mls/hr Q24H IV 11/08/19 06:00 12/08/19 05:59 11/08/19 08:42 Tyrel Prieto MD Nov 08, 2019 10:25"
--- NOTE | 2019-11-08 11:53 | NUR ---
DISCHARGE PLANNING: PATIENT NEEDING SUCTION MACHINE FOR DISCHARGE CLINICAL INFORMATION SENT TO: JUAN RAMON T: [phone] F:[phone] WAITING FOR RESPONSE DCP: DC TO [facility] WITH SUCTION MACHINE
[2019-11-08 12:00] VITALS: BP 101/55
[2019-11-08] MEDS: Meropenem 500mg in NS 55ml IVPB SCH (15:07)
--- NOTE | 2019-11-08 15:46 | General Progress Note ---
Assessment/Plan Problem List: (1) Dementia ICD Codes: F03.90 - Unspecified dementia without behavioral disturbance SNOMED: 51978313 (2) UTI (urinary tract infection) ICD Codes: N39.0 - Urinary tract infection, site not specified SNOMED: 84752193 (3) Diabetes mellitus ICD Codes: E11.9 - Type 2 diabetes mellitus without complications SNOMED: 95261795 (4) Pneumonia ICD Codes: J18.9 - Pneumonia, unspecified organism SNOMED: 290271199 (5) ARF (acute renal failure) ICD Codes: N17.9 - Acute kidney failure, unspecified SNOMED: 22434274 (6) Shortness of breath ICD Codes: R06.02 - Shortness of breath SNOMED: 607758016 (7) CHF (congestive heart failure) ICD Codes: I50.9 - Heart failure, unspecified SNOMED: 45506155 Status: stable, progressing Assessment/Plan: resp rx suctioning as needed j tube feeds g port to suction iv abx per id follow up cultures cautious iv hydration as needed sz rx dc planning will need LIS device at [facility]- d/w protective services case worker Subjective ROS Limited/Unobtainable: Yes Constitutional: Reports: malaise, weakness HEENT: Reports: no symptoms Cardiovascular: Reports: no symptoms Respiratory: Reports: cough Gastrointestinal/Abdominal: Reports: difficulty swallowing Genitourinary: Reports: no symptoms Neurologic/Psychiatric: Reports: pre-existing deficit, seizure Endocrine: Reports: no symptoms Hematologic/Lymphatic: Reports: anemia Allergies: Coded Allergies: No Known Allergies (Verified , 12/31/09) All Systems: reviewed and negative except above Subjective no events. awake. minimal congestion. tolerating J tube feeds. G tube to LIS- minimal output currently. no fever or chills. no sob. labs reviewed. on low rate ivf Objective Last 24 Hour Vital Signs Date Time Temp Pulse Resp B/P (MAP) Pulse Ox O2 Delivery O2 Flow Rate FiO2 11/08/19 12:00 97.8 94 17 101/55 (70) 95 11/08/19 09:00 Nasal Cannula 2.0 11/08/19 09:00 92 102/53 11/08/19 08:00 97.6 92 16 102/53 (69) 94 11/08/19 07:38 98 Nasal Cannula 2.0 28 11/08/19 04:00 98.3 79 16 105/55 (72) 98 11/08/19 00:53 82 100 11/08/19 00:00 98.0 85 16 108/62 (77) 11/07/19 21:13 87 121/84 11/07/19 21:00 Nasal Cannula 2.0 11/07/19 20:00 97.9 81 16 127/50 (75) 94 11/07/19 19:48 88 20 98 Nasal Cannula 2.0 28 11/07/19 19:38 96 Nasal Cannula 2.0 28 11/07/19 19:38 85 18 96 Nasal Cannula 2.0 28 11/07/19 16:00 98.0 81 18 124/76 (92) 99 Intake and Output 11/07/19 11/08/19 19:00 07:00 Intake Total 710.0 ml 1300.0 ml Output Total 2600 ml Balance 710.0 ml -1300.0 ml Free Water 150 ml IV Total 710.0 ml 650.0 ml Tube Feeding 500 ml Output Urine Total 1000 ml Gastric Drainage Total 1600 ml # Voids 1 # Bowel Movements 2 Height (Feet): 5 Height (Inches): 4.00 Weight (Pounds): 160 Objective General Appearance: WD/WN, alert, confused Neck: non-tender, normal alignment, supple Cardiovascular: normal peripheral pulses, normal rate, regular rhythm Respiratory/Chest: chest wall non-tender, lungs clear, normal breath sounds, no respiratory distress Abdomen: normal bowel sounds, non tender, soft, no organomegaly Edema: no edema noted Arm (L), no edema noted Arm (R), no edema noted Leg (L), no edema noted Leg (R), no edema noted Pedal (L), no edema noted Pedal (R), no edema noted Generalized Neurologic: alert, disoriented, unresponsive, aphasia Jeffrey Crowder MD Nov 08, 2019 15:45
[2019-11-08 15:58] VITALS: BP 120/60
--- NOTE | 2019-11-08 16:24 | NUR ---
CASE MANAGEMENT: INITIAL REVIEW 11/07/19 SI: DEMENTIA . UTI . DM . PNA . ARF 98.0 81 18 124/76 99 % ON 2L NC H/H 9.0/28.8 NA+ 147 CO2-35 BUN 56 CREAT 3.1 BG 269 ABG: pH 7.46 pCO2 58.9 pO2 219.2 HCO3 41.2 IS:IV MEROPENEM BID IV NS @40ML/HR HEPARIN SQ BID NOVOLOG SQ AC&HS LEVEMIR SQ BID ASA GT QD NEURONTIN GT BID KEPPRA GT BID \: 4E MED SURG UNIT PLAN: DC PLANNING WITH SUCTION MACHINE CASE MANAGEMENT: REVIEW 11/08/19 SI: DEMENTIA . UTI . DM . PNA . ARF 97.6 92 16 102/53 94% ON 2L NC IS:IV MEROPENEM BID IV NS @40ML/HR HEPARIN SQ BID NOVOLOG SQ AC&HS LEVEMIR SQ BID ASA GT QD NEURONTIN GT BID KEPPRA GT BID \: 4E MED SURG UNIT PLAN: ORDER SUCTION MACHING WITH JUAN RAMON T: [phone] WAITING FOR REVIEW
--- NOTE | 2019-11-08 16:34 | NUR ---
DISCHARGE PLANNING: PATIENT NEEDING SUCTION MACHINE FOR DISCHARGE CLINICAL INFORMATION SENT TO: JUAN RAMON T: [phone] MACHINE MAY DELIVER TONIGHT DCP: DC TO [facility] WITH SUCTION MACHINE
--- NOTE | 2019-11-08 18:17 | General Progress Note ---
Assessment/Plan Status: stable, progressing Assessment/Plan: Assessment - gastroparesis - OBS - dysphagia - s/p GJ tube Recommendations - J tube feeds - GT to LIS - oral hygiene - Elevate HOB Subjective Allergies: Coded Allergies: No Known Allergies (Verified , 12/31/09) Subjective Above noted tolerating TF G to LIS D/w pt escort Objective Last 24 Hour Vital Signs Date Time Temp Pulse Resp B/P (MAP) Pulse Ox O2 Delivery O2 Flow Rate FiO2 11/08/19 15:58 97.8 86 16 120/60 (80) 99 11/08/19 12:00 97.8 94 17 101/55 (70) 95 11/08/19 09:00 Nasal Cannula 2.0 11/08/19 09:00 92 102/53 11/08/19 08:00 97.6 92 16 102/53 (69) 94 11/08/19 07:38 98 Nasal Cannula 2.0 28 11/08/19 04:00 98.3 79 16 105/55 (72) 98 11/08/19 00:53 82 100 11/08/19 00:00 98.0 85 16 108/62 (77) 11/07/19 21:13 87 121/84 11/07/19 21:00 Nasal Cannula 2.0 11/07/19 20:00 97.9 81 16 127/50 (75) 94 11/07/19 19:48 88 20 98 Nasal Cannula 2.0 28 11/07/19 19:38 96 Nasal Cannula 2.0 28 11/07/19 19:38 85 18 96 Nasal Cannula 2.0 28 Intake and Output 11/07/19 11/08/19 19:00 07:00 Intake Total 710.0 ml 1300.0 ml Output Total 2600 ml Balance 710.0 ml -1300.0 ml Free Water 150 ml IV Total 710.0 ml 650.0 ml Tube Feeding 500 ml Output Urine Total 1000 ml Gastric Drainage Total 1600 ml # Voids 1 # Bowel Movements 2 Height (Feet): 5 Height (Inches): 4.00 Weight (Pounds): 160 Objective WDWN NCAT supple CTA RRR Abd soft ND NT no edema Darrell Griffith MD Nov 08, 2019 18:17
--- NOTE | 2019-11-08 19:00 | NUR ---
HAND-OFF: Report given to Aashish VILLAR RN.
--- NOTE | 2019-11-08 19:05 | NUR ---
NURSE NOTES: Patient asleep. Breathing unlabored on 1L O2 via NC without distress. No s/s of pain or discomfort noted at this time. IV noted intact on right hand and left hand. Left hand running IVF as ordered. Jtube feeding running as ordered and Gtube suction on LIS. Purewick on and working. Bed placed at the lowest with alarm, brake, and siderails up and padded for patient safety. Call light placed within reach. Will continue to monitor and provide care as ordered.
[2019-11-08 20:00] VITALS: BP 105/50
[2019-11-08] MEDS: Miralax 17gm pkt GT SCH (21:00)
[2019-11-09] VITALS: BP 105/60
[2019-11-09] MEDS: Meropenem 500mg in NS 55ml IVPB SCH (02:30)
[2019-11-09 04:00] VITALS: BP 106/52
--- NOTE | 2019-11-09 04:00 | Progress Note ---
DATE: 11/08/2019 CARDIOLOGY PROGRESS NOTE SUBJECTIVE: Minimally congested. Tolerating feedings. Needs G-tube to suction. J-tube ____ port. OBJECTIVE: VITAL SIGNS: Blood pressure 102/53, pulse 92, respirations 16. No fevers. Oxygen saturations 94% on 2 liters. LUNGS: Coarse breath sounds. Scattered rhonchi. CARDIAC: Regular rhythm and rate. Normal S1 and S2. ABDOMEN: Soft. EXTREMITIES: Trace edema. LABORATORY DATA: Sputum is positive for E coli and Pseudomonas. IMPRESSION: 1. Polymicrobial pneumonia. 2. Dysphagia. 3. Gastroparesis. 4. Type 2 diabetes mellitus. 5. Hypertensive heart disease. 6. Chronic diastolic congestive heart failure. PLAN: 1. Recheck laboratory studies. 2. Continue G-tube care as described above. 3. Monitor volume status and cardiorenal function. 4. Trend natriuretic peptide assay. Kavon Peña M.D. DR: TITA JOB#: [id number] CC:
[2019-11-09] MEDS: NovoLOG Insulin Flexpen SUBQ SCH ×3 (05:51→17:24)
[2019-11-09 06:43] LABS: BASOPHILS % (AUTO) 0.4 % (0.0-2.0); EOSINOPHILS % (AUTO) 3.3 % (0.0-3.0); HEMATOCRIT 30.5 % (37.0-47.0); HEMOGLOBIN 9.8 G/DL (12.0-16.0); LYMPHOCYTES % (AUTO) 21.6 % (20.0-45.0); MEAN CORPUSCULAR VOLUME 88 FL (80-99); MONOCYTES % (AUTO) 6.3 % (1.0-10.0); NEUTROPHILS % (AUTO) 68.5 % (45.0-75.0); PLATELET COUNT 399 K/UL (150-450); RED BLOOD COUNT 3.46 M/UL (4.20-5.40); WHITE BLOOD COUNT 8.8 K/UL (4.8-10.8)
--- NOTE | 2019-11-09 07:12 | NUR ---
HAND-OFF: Report given to FELY Brewster. Plan of care endorsed.
[2019-11-09 07:34] LABS: ALANINE AMINOTRANSFERASE 31 U/L (12-78); ALBUMIN 2.4 G/DL (3.4-5.0); ALBUMIN/GLOBULIN RATIO 0.4 (1.0-2.7); ALKALINE PHOSPHATASE 105 U/L (46-116); ANION GAP 10 mmol/L (5-15); ASPARTATE AMINO TRANSFERASE 29 U/L (15-37); BILIRUBIN,TOTAL 0.3 MG/DL (0.2-1.0); BLOOD UREA NITROGEN 45 mg/dL (7-18); CALCIUM 9.7 MG/DL (8.5-10.1); CARBON DIOXIDE 38 MMOL/L (21-32); CHLORIDE 99 MMOL/L (98-107); CREATININE 2.6 MG/DL (0.55-1.30); POTASSIUM 3.5 MMOL/L (3.5-5.1); SODIUM 147 MMOL/L (136-145)
--- NOTE | 2019-11-09 07:53 | NUR ---
NURSE NOTES: PT RESTING IN BED, IN HIGH QUINTERO' S POSITION. CALM AND IN NO APPARENT DISTRESS. GTUBE FEEDINGS HELD ORDERED UNTIL 0900HRS. BED IN LOWEST POSITION WITH BEDSIDE RAILS X3 RAISED. BED ALARM ON ZONE 1. WILL CONTINUE TO MONITOR.
[2019-11-09 08:00] VITALS: BP 108/62
--- NOTE | 2019-11-09 08:13 | General Progress Note ---
Assessment/Plan Status: stable, progressing Assessment/Plan: Assessment - gastroparesis - OBS - dysphagia - s/p GJ tube Recommendations - J tube feeds - GT to LIS - oral hygiene - Elevate HOB Subjective Allergies: Coded Allergies: No Known Allergies (Verified , 12/31/09) Subjective Above noted tolerating TF G to LIS D/w manual arts therapist Objective Last 24 Hour Vital Signs Date Time Temp Pulse Resp B/P (MAP) Pulse Ox O2 Delivery O2 Flow Rate FiO2 11/09/19 04:00 99.5 81 20 106/52 (70) 99 11/09/19 00:00 98.9 83 20 105/60 (75) 97 11/08/19 21:08 85 120/65 11/08/19 21:00 Nasal Cannula 2.0 11/08/19 20:00 99.0 85 20 105/50 (68) 97 11/08/19 19:34 97 Nasal Cannula 2.0 28 11/08/19 15:58 97.8 86 16 120/60 (80) 99 11/08/19 12:00 97.8 94 17 101/55 (70) 95 11/08/19 09:00 Nasal Cannula 2.0 11/08/19 09:00 92 102/53 Intake and Output 11/08/19 11/09/19 19:00 07:00 Intake Total 1195 ml 705 ml Output Total 950 ml 1700 ml Balance 245 ml -995 ml Free Water 150 ml 150 ml IV Total 495 ml 55 ml Tube Feeding 550 ml 500 ml Output Urine Total 450 ml 900 ml Gastric Drainage Total 500 ml 800 ml # Voids 1 # Bowel Movements 2 Laboratory Tests 11/09/19 05:08: White Blood Count 8.8, Red Blood Count 3.46L, Hemoglobin 9.8L, Hematocrit 30.5L , Mean Corpuscular Volume 88, Mean Corpuscular Hemoglobin 28.4, Mean Corpuscular Hemoglobin Concent 32.1, Red Cell Distribution Width 15.0H, Platelet Count 399, Mean Platelet Volume 6.1L, Neutrophils (%) (Auto) 68.5, Lymphocytes (%) (Auto) 21.6, Monocytes (%) (Auto) 6.3, Eosinophils (%) (Auto) 3.3H, Basophils (%) (Auto) 0.4, Sodium Level 147H, Potassium Level 3.5, Chloride Level 99, Carbon Dioxide Level 38H, Anion Gap 10, Blood Urea Nitrogen 45H, Creatinine 2.6H, Estimat Glomerular Filtration Rate 21.5, Glucose Level 133H, Calcium Level 9.7, Magnesium Level 3.2H, Total Bilirubin 0.3, Aspartate Amino Transf (AST/SGOT) 29, Alanine Aminotransferase (ALT/SGPT) 31, Alkaline Phosphatase 105, Pro-B-Type Natriuretic Peptide 610H, Total Protein 7.8, Albumin 2.4L, Globulin 5.4, Albumin/Globulin Ratio 0.4L Height (Feet): 5 Height (Inches): 4.00 Weight (Pounds): 154 Objective WDWN NCAT supple CTA RRR Abd soft ND NT no edema Darrell Griffith MD Nov 09, 2019 08:13
--- NOTE | 2019-11-09 08:13 | General Progress Note ---
Assessment/Plan Problem List: (1) Dementia ICD Codes: F03.90 - Unspecified dementia without behavioral disturbance SNOMED: 98625340 (2) UTI (urinary tract infection) ICD Codes: N39.0 - Urinary tract infection, site not specified SNOMED: 62522183 (3) Diabetes mellitus ICD Codes: E11.9 - Type 2 diabetes mellitus without complications SNOMED: 72058315 (4) Pneumonia ICD Codes: J18.9 - Pneumonia, unspecified organism SNOMED: 835846431 (5) ARF (acute renal failure) ICD Codes: N17.9 - Acute kidney failure, unspecified SNOMED: 66645134 (6) Shortness of breath ICD Codes: R06.02 - Shortness of breath SNOMED: 503453074 (7) CHF (congestive heart failure) ICD Codes: I50.9 - Heart failure, unspecified SNOMED: 14118988 Status: stable, progressing Assessment/Plan: resp rx suctioning as needed j tube feeds g port to suction iv abx per id increase water fluhes sz rx dc planning will need LIS device at [facility]- d/w briefcase sewer Subjective ROS Limited/Unobtainable: No Constitutional: Reports: malaise, weakness HEENT: Reports: no symptoms Cardiovascular: Reports: no symptoms Respiratory: Reports: cough, shortness of breath, sputum Gastrointestinal/Abdominal: Reports: difficulty swallowing Genitourinary: Reports: no symptoms Neurologic/Psychiatric: Reports: pre-existing deficit, seizure Endocrine: Reports: no symptoms Hematologic/Lymphatic: Reports: no symptoms Allergies: Coded Allergies: No Known Allergies (Verified , 12/31/09) All Systems: reviewed and negative except above Subjective no events. awake. minimal congestion. tolerating J tube feeds. G tube to LIS- minimal output currently. no fever or chills. no sob. labs reviewed. off ivf. na up. Objective Last 24 Hour Vital Signs Date Time Temp Pulse Resp B/P (MAP) Pulse Ox O2 Delivery O2 Flow Rate FiO2 11/09/19 04:00 99.5 81 20 106/52 (70) 99 11/09/19 00:00 98.9 83 20 105/60 (75) 97 11/08/19 21:08 85 120/65 11/08/19 21:00 Nasal Cannula 2.0 11/08/19 20:00 99.0 85 20 105/50 (68) 97 11/08/19 19:34 97 Nasal Cannula 2.0 28 11/08/19 15:58 97.8 86 16 120/60 (80) 99 11/08/19 12:00 97.8 94 17 101/55 (70) 95 11/08/19 09:00 Nasal Cannula 2.0 11/08/19 09:00 92 102/53 Intake and Output 11/08/19 11/09/19 19:00 07:00 Intake Total 1195 ml 705 ml Output Total 950 ml 1700 ml Balance 245 ml -995 ml Free Water 150 ml 150 ml IV Total 495 ml 55 ml Tube Feeding 550 ml 500 ml Output Urine Total 450 ml 900 ml Gastric Drainage Total 500 ml 800 ml # Voids 1 # Bowel Movements 2 Laboratory Tests 11/09/19 05:08: White Blood Count 8.8, Red Blood Count 3.46L, Hemoglobin 9.8L, Hematocrit 30.5L , Mean Corpuscular Volume 88, Mean Corpuscular Hemoglobin 28.4, Mean Corpuscular Hemoglobin Concent 32.1, Red Cell Distribution Width 15.0H, Platelet Count 399, Mean Platelet Volume 6.1L, Neutrophils (%) (Auto) 68.5, Lymphocytes (%) (Auto) 21.6, Monocytes (%) (Auto) 6.3, Eosinophils (%) (Auto) 3.3H, Basophils (%) (Auto) 0.4, Sodium Level 147H, Potassium Level 3.5, Chloride Level 99, Carbon Dioxide Level 38H, Anion Gap 10, Blood Urea Nitrogen 45H, Creatinine 2.6H, Estimat Glomerular Filtration Rate 21.5, Glucose Level 133H, Calcium Level 9.7, Magnesium Level 3.2H, Total Bilirubin 0.3, Aspartate Amino Transf (AST/SGOT) 29, Alanine Aminotransferase (ALT/SGPT) 31, Alkaline Phosphatase 105, Pro-B-Type Natriuretic Peptide 610H, Total Protein 7.8, Albumin 2.4L, Globulin 5.4, Albumin/Globulin Ratio 0.4L Height (Feet): 5 Height (Inches): 4.00 Weight (Pounds): 154 Objective General Appearance: WD/WN, alert, confused Neck: non-tender, normal alignment, supple Cardiovascular: normal peripheral pulses, normal rate, regular rhythm Respiratory/Chest: chest wall non-tender, lungs clear, normal breath sounds, no respiratory distress Abdomen: normal bowel sounds, non tender, soft, no organomegaly Edema: no edema noted Arm (L), no edema noted Arm (R), no edema noted Leg (L), no edema noted Leg (R), no edema noted Pedal (L), no edema noted Pedal (R), no edema noted Generalized Neurologic: alert, disoriented, unresponsive, aphasia Jeffrey Crowder MD Nov 09, 2019 08:13
[2019-11-09] MEDS: Docusate 100mg/10ml Liq GT SCH ×2 (08:21→18:31)
[2019-11-09] MEDS: Aspirin Baby 81mg GT SCH (08:21)
[2019-11-09] MEDS: Heparin 5000 units/ml inj SUBQ SCH (08:24)
[2019-11-09] MEDS: Levemir Flexpen SUBQ SCH ×2 (08:25→18:36)
--- NOTE | 2019-11-09 10:16 | Pulmonology Progress Note ---
Assessment/Plan Assessment/Plan Pulmonary Progress Note Assessment/Plan Chronic respiratory failure, chronic hypercapnia, chronic hypoxemia, alkalosis due to compensation, leukocytosis of unclear significance, chronic renal failure, and chronic kidney disease. PLAN care noted findings noted for now continue same; avoid sedation respiratory care as is monitor for worsening congestion adjust meds for noted labs monitor oxygen needs and adjust antibiotics noted and reviewed meds noted monitor for aspiration/suction and encourage cough elevate head impression, plan, and exam edited and reviewed in detail care discussed with RN Subjective ROS Limited/Unobtainable: Yes Allergies: Coded Allergies: No Known Allergies (Verified , 12/31/09) Subjective confused on oxygen ABG noted no obvious distress overall care reviewed changes in labs noted Objective Vital Signs Noted Objective WDWN NAD reduced breath sounds bilaterally without rhonchi or wheeze [id number] without MRG NABS nontender no HSM no CCE reduced ROM nonfocal Microbiology Date/Time Source Procedure Growth Status 11/05/19 23:30 Sputum Gram Stain - Final Resulted 11/05/19 23:30 Sputum Culture - Preliminary Escherichia Coli Pseudomonas Aeruginosa Resulted Current Medications Medications (Trade) Dose Ordered Sig/Aaron Route PRN Reason Start Time Stop Time Status Last Admin Dose Admin Aspirin (ASA) 81 mg DAILY GT 11/05/19 09:00 12/03/19 08:59 11/08/19 08:39 Clonidine HCl (Catapres Tab) 0.1 mg Q6H PRN GT SBP>160 11/05/19 06:00 12/05/19 05:59 Dextrose (Dextrose 50%) 25 ml Q30M PRN IV Hypoglycemia 11/05/19 06:30 12/02/19 22:29 Dextrose (Dextrose 50%) 50 ml Q30M PRN IV Hypoglycemia 11/05/19 06:30 12/02/19 22:29 Docusate Sodium (Colace) 100 mg BID GT 11/05/19 09:00 12/03/19 08:59 11/08/19 08:39 Gabapentin (Neurontin) 100 mg BID GT 11/05/19 09:00 12/03/19 08:59 11/08/19 08:39 Heparin Sodium (Porcine) (Heparin 5000 units/ml) 5,000 units EVERY 12 HOURS SUBQ 11/05/19 09:00 12/03/19 08:59 11/08/19 08:54 Insulin Aspart (NovoLOG) BEFORE MEALS AND HS SUBQ 11/05/19 06:30 12/03/19 06:29 11/07/19 11:49 Insulin Detemir (Levemir) 6 units BID SUBQ 11/05/19 09:00 12/03/19 08:59 11/08/19 08:57 Lactulose (Cephulac) 20 gm DAILY PRN GT Constipation 11/05/19 06:15 12/02/19 06:14 Lansoprazole (Prevacid) 30 mg DAILY@0630 GT 11/05/19 06:30 12/03/19 06:29 11/08/19 06:03 Levetiracetam (Keppra) 1,000 mg Q12HR GT 11/05/19 09:00 12/03/19 08:59 11/08/19 08:39 Levothyroxine Sodium (Synthroid) 75 mcg DAILY@0630 GT 11/05/19 06:30 12/03/19 06:29 11/08/19 06:03 Magnesium Hydroxide (Mom) 30 ml DAILY PRN GT Constipation 11/05/19 06:15 12/02/19 06:14 Metoprolol Tartrate (Lopressor) 25 mg EVERY 12 HOURS GT 11/05/19 09:00 12/03/19 08:59 11/07/19 21:13 Piperacillin Sod/ Tazobactam Sod 3.375 gm/Sodium Chloride 110 ml @ 27.5 mls/hr Q12H IVPB 11/05/19 12:00 11/10/19 00:00 11/08/19 00:06 Polyethylene Glycol (Miralax) 17 gm BEDTIME GT 11/05/19 21:00 12/03/19 20:59 Sodium Chloride 1,000 ml @ 40 mls/hr Q24H IV 11/08/19 06:00 12/08/19 05:59 11/08/19 08:42 Subjective ROS Limited/Unobtainable: No Allergies: Coded Allergies: No Known Allergies (Verified , 12/31/09) Objective Last 24 Hour Vital Signs Date Time Temp Pulse Resp B/P (MAP) Pulse Ox O2 Delivery O2 Flow Rate FiO2 11/09/19 09:00 Nasal Cannula 2.0 11/09/19 08:21 84 108/62 11/09/19 08:00 98.0 84 19 108/62 (77) 99 11/09/19 04:00 99.5 81 20 106/52 (70) 99 11/09/19 00:00 98.9 83 20 105/60 (75) 97 11/08/19 21:08 85 120/65 11/08/19 21:00 Nasal Cannula 2.0 11/08/19 20:00 99.0 85 20 105/50 (68) 97 11/08/19 19:34 97 Nasal Cannula 2.0 28 11/08/19 15:58 97.8 86 16 120/60 (80) 99 11/08/19 12:00 97.8 94 17 101/55 (70) 95 Intake and Output 11/08/19 11/09/19 19:00 07:00 Intake Total 1195 ml 705 ml Output Total 950 ml 1700 ml Balance 245 ml -995 ml Free Water 150 ml 150 ml IV Total 495 ml 55 ml Tube Feeding 550 ml 500 ml Output Urine Total 450 ml 900 ml Gastric Drainage Total 500 ml 800 ml # Voids 1 # Bowel Movements 2 Laboratory Tests 11/09/19 05:08: White Blood Count 8.8, Red Blood Count 3.46L, Hemoglobin 9.8L, Hematocrit 30.5L , Mean Corpuscular Volume 88, Mean Corpuscular Hemoglobin 28.4, Mean Corpuscular Hemoglobin Concent 32.1, Red Cell Distribution Width 15.0H, Platelet Count 399, Mean Platelet Volume 6.1L, Neutrophils (%) (Auto) 68.5, Lymphocytes (%) (Auto) 21.6, Monocytes (%) (Auto) 6.3, Eosinophils (%) (Auto) 3.3H, Basophils (%) (Auto) 0.4, Sodium Level 147H, Potassium Level 3.5, Chloride Level 99, Carbon Dioxide Level 38H, Anion Gap 10, Blood Urea Nitrogen 45H, Creatinine 2.6H, Estimat Glomerular Filtration Rate 21.5, Glucose Level 133H, Calcium Level 9.7, Magnesium Level 3.2H, Total Bilirubin 0.3, Aspartate Amino Transf (AST/SGOT) 29, Alanine Aminotransferase (ALT/SGPT) 31, Alkaline Phosphatase 105, Pro-B-Type Natriuretic Peptide 610H, Total Protein 7.8, Albumin 2.4L, Globulin 5.4, Albumin/Globulin Ratio 0.4L Current Medications Medications (Trade) Dose Ordered Sig/Aaron Route PRN Reason Start Time Stop Time Status Last Admin Dose Admin Aspirin (ASA) 81 mg DAILY GT 11/05/19 09:00 12/03/19 08:59 11/09/19 08:21 Clonidine HCl (Catapres Tab) 0.1 mg Q6H PRN GT SBP>160 11/05/19 06:00 12/05/19 05:59 Dextrose (Dextrose 50%) 25 ml Q30M PRN IV Hypoglycemia 11/05/19 06:30 12/02/19 22:29 Dextrose (Dextrose 50%) 50 ml Q30M PRN IV Hypoglycemia 11/05/19 06:30 12/02/19 22:29 Docusate Sodium (Colace) 100 mg BID GT 11/05/19 09:00 12/03/19 08:59 11/08/19 08:39 Gabapentin (Neurontin) 100 mg BID GT 11/05/19 09:00 12/03/19 08:59 11/09/19 08:21 Heparin Sodium (Porcine) (Heparin 5000 units/ml) 5,000 units EVERY 12 HOURS SUBQ 11/05/19 09:00 12/03/19 08:59 11/09/19 08:24 Insulin Aspart (NovoLOG) BEFORE MEALS AND HS SUBQ 11/05/19 06:30 12/03/19 06:29 11/08/19 11:43 Insulin Detemir (Levemir) 6 units BID SUBQ 11/05/19 09:00 12/03/19 08:59 11/09/19 08:25 Lactulose (Cephulac) 20 gm DAILY PRN GT Constipation 11/05/19 06:15 12/02/19 06:14 Lansoprazole (Prevacid) 30 mg DAILY@0630 GT 11/05/19 06:30 12/03/19 06:29 11/09/19 05:53 Levetiracetam (Keppra) 1,000 mg Q12HR GT 11/05/19 09:00 12/03/19 08:59 11/09/19 08:21 Levothyroxine Sodium (Synthroid) 75 mcg DAILY@0630 GT 11/05/19 06:30 12/03/19 06:29 11/09/19 05:53 Magnesium Hydroxide (Mom) 30 ml DAILY PRN GT Constipation 11/05/19 06:15 12/02/19 06:14 Meropenem 500 mg/ Sodium Chloride 55 ml @ 110 mls/hr Q12H IVPB 11/08/19 15:00 11/13/19 14:59 11/09/19 02:30 Metoprolol Tartrate (Lopressor) 25 mg EVERY 12 HOURS GT 11/05/19 09:00 12/03/19 08:59 11/08/19 21:08 Polyethylene Glycol (Miralax) 17 gm BEDTIME GT 11/05/19 21:00 12/03/19 20:59 Kavon Seals MD Nov 09, 2019 10:16
--- NOTE | 2019-11-09 10:30 | Infectious Diseases Prog Note ---
"Assessment/Plan Assessment/Plan antibiotics ; meropenem A 1. e.coli | pseudomonas pneumonia 2. leucocytosis resolved 3. diabetes mellitus 4. hypertension 5. seizures 6. CHF 7. stroke 8. renal failure improving P 1. d/c meropenem 2. start and continue po ciprofloxacin 5 more days 3. will follow up cultures Subjective ROS Limited/Unobtainable: Yes Allergies: Coded Allergies: No Known Allergies (Verified , 12/31/09) Objective Vital Signs Last 24 Hour Vital Signs Date Time Temp Pulse Resp B/P (MAP) Pulse Ox O2 Delivery O2 Flow Rate FiO2 11/09/19 09:00 Nasal Cannula 2.0 11/09/19 08:21 84 108/62 11/09/19 08:00 98.0 84 19 108/62 (77) 99 11/09/19 04:00 99.5 81 20 106/52 (70) 99 11/09/19 00:00 98.9 83 20 105/60 (75) 97 11/08/19 21:08 85 120/65 11/08/19 21:00 Nasal Cannula 2.0 11/08/19 20:00 99.0 85 20 105/50 (68) 97 11/08/19 19:34 97 Nasal Cannula 2.0 28 11/08/19 15:58 97.8 86 16 120/60 (80) 99 11/08/19 12:00 97.8 94 17 101/55 (70) 95 Height (Feet): 5 Height (Inches): 4.00 Weight (Pounds): 154 Respiratory/Chest: lungs clear Cardiovascular: normal rate, regular rhythm, no gallop/murmur Abdomen: soft, non tender Extremities: no edema Laboratory Tests Test 11/09/19 05:08 White Blood Count 8.8 K/UL (4.8-10.8) Red Blood Count 3.46 M/UL (4.20-5.40) L Hemoglobin 9.8 G/DL (12.0-16.0) L Hematocrit 30.5 % (37.0-47.0) L Mean Corpuscular Volume 88 FL (80-99) Mean Corpuscular Hemoglobin 28.4 PG (27.0-31.0) Mean Corpuscular Hemoglobin Concent 32.1 G/DL (32.0-36.0) Red Cell Distribution Width 15.0 % (11.6-14.8) H Platelet Count 399 K/UL (150-450) Mean Platelet Volume 6.1 FL (6.5-10.1) L Neutrophils (%) (Auto) 68.5 % (45.0-75.0) Lymphocytes (%) (Auto) 21.6 % (20.0-45.0) Monocytes (%) (Auto) 6.3 % (1.0-10.0) Eosinophils (%) (Auto) 3.3 % (0.0-3.0) H Basophils (%) (Auto) 0.4 % (0.0-2.0) Sodium Level 147 MMOL/L (136-145) H Potassium Level 3.5 MMOL/L (3.5-5.1) Chloride Level 99 MMOL/L (98-107) Carbon Dioxide Level 38 MMOL/L (21-32) H Anion Gap 10 mmol/L (5-15) Blood Urea Nitrogen 45 mg/dL (7-18) H Creatinine 2.6 MG/DL (0.55-1.30) H Estimat Glomerular Filtration Rate 21.5 mL/min (>60) Glucose Level 133 MG/DL (74-106) H Calcium Level 9.7 MG/DL (8.5-10.1) Magnesium Level 3.2 MG/DL (1.8-2.4) H Total Bilirubin 0.3 MG/DL (0.2-1.0) Aspartate Amino Transf (AST/SGOT) 29 U/L (15-37) Alanine Aminotransferase (ALT/SGPT) 31 U/L (12-78) Alkaline Phosphatase 105 U/L (46-116) Pro-B-Type Natriuretic Peptide 610 pg/mL (0-125) H Total Protein 7.8 G/DL (6.4-8.2) Albumin 2.4 G/DL (3.4-5.0) L Globulin 5.4 g/dL Albumin/Globulin Ratio 0.4 (1.0-2.7) L Current Medications Medications (Trade) Dose Ordered Sig/Aaron Route PRN Reason Start Time Stop Time Status Last Admin Dose Admin Aspirin (ASA) 81 mg DAILY GT 11/05/19 09:00 12/03/19 08:59 11/09/19 08:21 Clonidine HCl (Catapres Tab) 0.1 mg Q6H PRN GT SBP>160 11/05/19 06:00 12/05/19 05:59 Dextrose (Dextrose 50%) 25 ml Q30M PRN IV Hypoglycemia 11/05/19 06:30 12/02/19 22:29 Dextrose (Dextrose 50%) 50 ml Q30M PRN IV Hypoglycemia 11/05/19 06:30 12/02/19 22:29 Docusate Sodium (Colace) 100 mg BID GT 11/05/19 09:00 12/03/19 08:59 11/08/19 08:39 Gabapentin (Neurontin) 100 mg BID GT 11/05/19 09:00 12/03/19 08:59 11/09/19 08:21 Heparin Sodium (Porcine) (Heparin 5000 units/ml) 5,000 units EVERY 12 HOURS SUBQ 11/05/19 09:00 12/03/19 08:59 11/09/19 08:24 Insulin Aspart (NovoLOG) BEFORE MEALS AND HS SUBQ 11/05/19 06:30 12/03/19 06:29 11/08/19 11:43 Insulin Detemir (Levemir) 6 units BID SUBQ 11/05/19 09:00 12/03/19 08:59 11/09/19 08:25 Lactulose (Cephulac) 20 gm DAILY PRN GT Constipation 11/05/19 06:15 12/02/19 06:14 Lansoprazole (Prevacid) 30 mg DAILY@0630 GT 11/05/19 06:30 12/03/19 06:29 11/09/19 05:53 Levetiracetam (Keppra) 1,000 mg Q12HR GT 11/05/19 09:00 12/03/19 08:59 11/09/19 08:21 Levothyroxine Sodium (Synthroid) 75 mcg DAILY@0630 GT 11/05/19 06:30 12/03/19 06:29 11/09/19 05:53 Magnesium Hydroxide (Mom) 30 ml DAILY PRN GT Constipation 11/05/19 06:15 12/02/19 06:14 Meropenem 500 mg/ Sodium Chloride 55 ml @ 110 mls/hr Q12H IVPB 11/08/19 15:00 11/13/19 14:59 11/09/19 02:30 Metoprolol Tartrate (Lopressor) 25 mg EVERY 12 HOURS GT 11/05/19 09:00 12/03/19 08:59 11/08/19 21:08 Polyethylene Glycol (Miralax) 17 gm BEDTIME GT 11/05/19 21:00 12/03/19 20:59 Tyrel Prieto MD Nov 09, 2019 10:30"
[2019-11-09 12:00] VITALS: BP 109/64
--- NOTE | 2019-11-09 14:38 | NUR ---
HOLIDAY DETECTOR OPERATOR NOTE FOLLOW UP CALL MADE TO JUAN RAMON @ [phone]. PER AKBAR, CONFIRMED SUCTION MACHINE DELIVERED TO [facility] [place] [facility] AND RECEIVED BY NELIDA. CALL MADE TO CHRISTIAN POLK @ [phone]. SPOKE WITH UGO AND INFORMED SUCTION MACHINE HAS BEEN RECEIVED AND PATIENT WILL RETURN TO SNF WITH SUCTION. PATIENT ROOM ASSIGNMENT TO: [facility]
--- NOTE | 2019-11-09 14:51 | NUR ---
NURSE NOTES: RN RECEIVED CONTINUOUS SUCTION MACHINE. RN SPOKE TO STEWART (RUMPER) AND MADE AWARE. PER STEWART, ASK DR LUX IF PT CAN BE DISCHARGED. RN LEFT MESSAGE FOR DR LUX.
[2019-11-09] MEDS ORDERED: KEPPRA1000 MG ORAL (15:04)
[2019-11-09] MEDS ORDERED: LEVEMIR FL100 UNIT/1 SUBQ (15:06)
[2019-11-09] MEDS ORDERED: NOVOLOG100 UNITS1 (15:06)
[2019-11-09] MEDS ORDERED: DEXTROSE 50%-WA50 ML IV (15:10)
--- NOTE | 2019-11-09 15:11 | NUR ---
[facility] SCHEDULED WITH [facility] @ EXT [id number] WITH ETA @ 1615 PM. FELY KRAUSE AWARE. Addendum: 11/09/19 at 1517 by STEWART EVANS LVN LVN CALL MADE TO PATIENTS RP/SISTER NAVDEEP PALENCIA @ [phone] WITH NO ANSWER. VOICEMAIL LEFT REQUESTING CALL BACK.
--- NOTE | 2019-11-09 15:11 | NUR ---
NURSE NOTES: RN RECEIVED ORDER FOR DISCHARGE WITH HOSPITAL MEDS FROM DR LUX. RN LEFT MESSAGE FOR DR WHITEHEAD REGARDING ANTIBIOTIC ORDERS UPON DISCHARGE. AWAITING NEW ORDERS.
[2019-11-09] MEDS ORDERED: CIPRO250 MG/51 PO (15:24)
[2019-11-09 16:00] VITALS: BP 108/65
--- NOTE | 2019-11-09 16:25 | NUR ---
NURSE NOTES: RN SPOKE TO PT'S SISTER, NAVDEEP AND PT'S DAUGHTER AND MADE AWARE OF DISCHARGE. DAUGHTER MADE AWARE OF LEAVING WITH CONTINUOUS SUCTION MACHINE. RN GAVE REPORT TO FELY PRIETO, AT [facility] AND MADE AWARE OF BLOOD SUGAR CHECKS AC/HS, CONTINUOUS SUCTION MACHINE FOR G-TUBE, AND FEEDING TO GO THROUGH VIA J-TUBE. CONNER VERBALIZED UNDERSTANDING.
--- NOTE | 2019-11-09 16:54 | NUR ---
*-* INSURANCE *-* ALL CLINICALS AND REVIEWS HAVE BEEN FAXED TO: [employer] OR TRACKING YET # [phone] FAX# [phone] REVIEWS/CLINICALS
--- NOTE | 2019-11-09 17:46 | NUR ---
NURSE NOTES: PER [facility], RUNNING LATE 45MIN TO 1 HOUR.
[2019-11-09] MEDS ORDERED: NS 500ML ONE (19:29)
[2019-11-09] MEDS ORDERED: Tubing IV Secondary IV ONE (19:29)
[2019-11-09] MEDS ORDERED: NS 275ml ONE (19:29)
--- NOTE | 2019-11-09 19:30 | NUR ---
NURSE NOTES: [facility] AT BEDSIDE. REPORT GIVEN. ENDORSED TO TAKE CONTINUOUS SUCTION MACHINE. IV ACCESSES DISCONTINUED. NO OTHER BELONGINGS.
--- NOTE | 2019-11-10 | Progress Note ---
DATE: 11/09/2019 CARDIOLOGY PROGRESS NOTE SUBJECTIVE: The patient remains minimally congested. No distress for several days. Tolerating feedings and without any hypoxic episodes. OBJECTIVE: VITAL SIGNS: Blood pressure 106/52, pulse 81, respirations 20, temperature max 99.5. LUNGS: Bilateral breath sounds. No wheezes or rales. CARDIAC: Regular rhythm and rate. Normal S1, S2 with a fourth heart sound. A 1/6 systolic murmur at apex. ABDOMEN: Soft. EXTREMITIES: No edema. LABORATORY DATA: Reviewed. IMPRESSION: 1. Healthcare-associated pneumonia, resolved. Aspiration risk persist, but improved with improvement of gastroparesis. 2. Chronic diastolic congestive heart failure, clinically compensated. 3. Acute on chronic kidney injury, improving. 4. Dehydration and hypernatremia, improving. PLAN: 1. Maintain free water by G-tube. 2. Continue protein supplement and nutrition by feeding tube. 3. Respiratory hygiene. 4. Aspiration precautions. 5. No diuretics. 6. Continue beta-carmen. Kavon Peña M.D. DR: FILIBERTO JOB#: [id number] CC:
--- NOTE | 2019-11-10 11:00 | NUR ---
*-* INSURANCE *-* ALL CLINICALS AND REVIEWS HAVE BEEN FAXED TO: [employer] OR TRACKING YET # [phone] FAX# [phone] REVIEWS/CLINICALS
--- NOTE | 2019-11-10 15:06 | Discharge Summary ---
Discharge Summary Discharge Summary _ DATE OF ADMISSION: 11/02/2019 DATE OF DISCHARGE: 11/09/2019 DISCHARGED BY: Dr. Crowder REASON FOR ADMISSION: 79 years old female with past medical history of CVA, hypertension, seizure disorder, diabetes mellitus, encephalopathy, recently was recently hospitalized for aspiration pneumonia and UTI. She was discharged to alf facility in stable condition. On the night of the transfer patient desaturated and became hypoxic and required placement of nonrebreather mask. Patient was markedly congested. Patient recently had JG-tube placement. G-tube port had been placed to gravity with some output. Despite aggressive pulmonary toilet, suctioning and breathing treatments at the [facility], hypoxia did not improve . Patient was transferred to emergency room for further evaluation and management. In emergency department she received a dose of IV steroids and IV Lasix. Patient received nebulizing treatment with bronchodilator. Oxygen saturation improved. Laboratory work-up was significant for leukocytosis WBC 15, sodium 147, BUN 16, creatinine 3. Urinalysis revealed pyuria. Chest x-ray improved compared to prior chest x-ray. Patient subsequently admitted for further management. CONSULTANTS: home care physical therapist Dr. Peña pulmonary Dr. Douglass ID specialist Dr. Prieto [facility]: Patient admitted and started with aggressive pulmonary toilet. Supplemental oxygen provided and titrated to keep pulse oximetry above 92%. Nebulizing treatment with bronchodilator provided [id number] and as needed. Feeding was cautiously resumed via J port with strict aspiration precaution. Residuals were monitored. G port was kept to low intermittent suction. Antihypertensive regimen was titrated based on clinical parameters. No diuretic was initiated. Antibiotic regimen optimized as per ID specialist recommendation. Blood cultures were negative. Influenza screen was negative. Urine culture was negative. Sputum culture revealed E. coli and Pseudomonas. Patient was on IV antibiotics while in the hospital and changed to oral ciprofloxacin to continue for additional 5 days at the facility to complete the course. Leukocytosis resolved , no fevers. Renal parameters and electrolytes were closely monitored , creatinine from 3.0 down to 2.6. Electrolyte corrected as needed. GI specialist closely followed. Tube feeding with the tube feeding formula and goal rate aklong with protein supplements provided as per survey research manager recommendation via J-tube. Strict aspiration explained precaution maintained. Thorough oral hygiene provided. DVT prophylaxis provided Antiplatelet therapy with aspirin and beta-blockade continued. Blood sugar was managed with long-acting Levemir and sliding scale of short acting i insulin as needed. Seizure precaution maintained. No evidence of seizure activity while in the hospital. Keppra continued. Patient clinically stabilized and was ready for transfer to alf facility for continuation of care. FINAL DIAGNOSES: Pneumonia with E. coli and Pseudomonas Chronic respiratory failure Chronic hypercapnia and hypoxemia Leukocytosis Encephalopathy Hypertensive heart disease with chronic diastolic congestive heart failure Acute on chronic renal failure Dehydration and hypernatremia CHF Diabetes mellitus type 2 Dysphagia with aspiration Seizure disorder Gastroparesis Dysphagia Status post GJ tube Metabolic alkalosis DISCHARGE MEDICATIONS: See Medication Reconciliation list. DISCHARGE INSTRUCTIONS: Patient was discharged to the alf facility. Follow up with medical doctor at the facility. I have been assigned to dictate discharge summary for this account. I was not involved in the patient's management. Chica Brizuela NP Nov 10, 2019 15:06
== END 2019-11-09 19:30 | DRG 137 ==
LOC: EDBD 20:15 → EMR 20:30 → OBSVTOIN 21:20 → 2E 21:20 → EDBEDREQ 22:11 → SDSOVERFLO 11-03 10:39 → 2E 11-03 10:41 → 4E 11-05 06:03
DX: J69.0 Pneumonitis due to inhalation of food and vomit (principal); J15.5 Pneumonia due to Escherichia coli; J15.1 Pneumonia due to Pseudomonas; J96.11 Chronic respiratory failure with hypoxia; I13.0 Hypertensive heart and chronic kidney disease with heart failure and stage 1 through stage 4 chronic kidney disease, or unspecified chronic kidney disease; N18.9 Chronic kidney disease, unspecified; I50.32 Chronic diastolic (congestive) heart failure; N17.9 Acute kidney failure, unspecified; E87.1 Hypo-osmolality and hyponatremia; E87.0 Hyperosmolality and hypernatremia; E44.0 Moderate protein-calorie malnutrition; K31.84 Gastroparesis; Z43.1 Encounter for attention to gastrostomy; R13.10 Dysphagia, unspecified; G93.40 Encephalopathy, unspecified; Z86.73 Personal history of transient ischemic attack (TIA), and cerebral infarction without residual deficits; J96.12 Chronic respiratory failure with hypercapnia; E86.0 Dehydration; E11.22 Type 2 diabetes mellitus with diabetic chronic kidney disease; N39.0 Urinary tract infection, site not specified; G40.909 Epilepsy, unspecified, not intractable, without status epilepticus; E11.43 Type 2 diabetes mellitus with diabetic autonomic (poly)neuropathy; E87.3 Alkalosis; E03.9 Hypothyroidism, unspecified; F03.90 Unspecified dementia, unspecified severity, without behavioral disturbance, psychotic disturbance, mood disturbance, and anxiety
CPT/HCPCS: 36415; 36600; 71045; 80048; 80053; 80299; 81003; 82803; 82962; 83605; 83735; 83880; 84484; 85007; 85025; 86710; 87040; 87070; 87081; 87086; 87181; 87205; 93005; 94640; 94664; 96365; 96366; 96372; 96374; 96375; 99284; J1815; J7620; S5561

== ENCOUNTER 2019-11-14 10:16 | Inpatient (IN) | payer MEDICARE, MEDICAID ==
[2019-11-14] VITALS (12 sets, daily range): BP systolic 75–135; BP diastolic 48–77
[~2019-11-14] VITALS: Ht 160 cm; Wt 93.0 kg
[~2019-11-14 10:16] MED LIST changes: +CIPRO250 MG/51 PO; +DEXTROSE 50%-WA50 ML IV; +KEPPRA1000 MG ORAL; +NOVOLOG100 UNITS1; +Piperacillin/Tazobactam 3.375 GM in NS 110 ML IVPB ONE; +Vancomycin 1 GM in NS 275 ML IV ONE
--- NOTE | 2019-11-14 10:20 | NUR ---
ED Nurse Note:pt. was BIBA from SNF with respiratory distress and seizures, pt arrived s/p CPR at the facility and on non-rebreather mask, placed on campus monitor, pt. is non responsive
--- NOTE | 2019-11-14 10:30 | NUR ---
ED Nurse Note:pt. was given anectine 100mg IV per MD order at 1025 and pt. was intubated at 1029 then placed on mechanical ventilator, given IV fluids blood sent to labs, pt. was suction by electrical equipment technician -blood secritions
--- NOTE | 2019-11-14 10:42 | Emergency Room Report ---
History of Present Illness General Chief Complaint: Dyspnea/Respdistress Source: Medical Record, EMS Present Illness HPI 87-year-old female presented from her alf facility due to recurrent seizure and altered mental status. Apparently patient was being cleaned today and had a generalized tonic-clonic seizure afterward patient seemed unresponsive and CPR provided by detention staff which was discontinued on EMS arrival. In route to ER patient did have a recurrent seizure lasting approximately 1 minute. No medications were given. Patient recently admitted for pneumonia and discharged on ciprofloxacin. At baseline apparently patient is not alert or oriented. On arrival patient in moderate to severe respiratory distress Allergies: Coded Allergies: No Known Allergies (Verified , 12/31/09) Patient History Past Medical History: see triage record Reviewed Nursing Documentation: PMH: Agreed; PSxH: Agreed Nursing Documentation-PMH Hx Cardiac Problems: Yes - CHf; anemia Hx Hypertension: Yes Hx Pacemaker: No Hx Asthma: No Hx COPD: No Hx Diabetes: Yes Hx Cancer: No Hx Dialysis: No - CKD Hx Neurological Problems: Yes - hypothyroid Hx Cerebrovascular Accident: No Hx Seizures: No Hx Cerebral Palsy: Yes Review of Systems All Other Systems: limited Narrative Limited due to patient's arrival and altered mental status Physical Exam Vital Signs Date Time Temp Pulse Resp B/P (MAP) Pulse Ox O2 Delivery O2 Flow Rate FiO2 11/14/19 10:14 80 14 110/58 (75) 96 Simple Mask 15.0 Sp02 EP Interpretation: reviewed, normal General Appearance: moderate distress, Chronically Ill Head: normocephalic, atraumatic Eyes: bilateral eye PERRL, bilateral eye EOMI ENT: moist mucus membranes Neck: normal inspection, supple Respiratory: no retraction, other - Agonal respirations noted with rhonchorous breath sounds in the right lung base Cardiovascular #1: normal peripheral pulses, regular rate, rhythm, no murmur Gastrointestinal: soft, non-distended, other - G-tube present Neurologic: no focal defects, other - Patient obtunded, unresponsive Skin: normal color, warm/dry Procedures Critical Care Time Critical Care Time Critical care time is managed on the patient due to presentation with acute respiratory failure requiring my acute intervention. Critical care time is approximately 38 minutes and excludes procedures. Intubation Intubation : Consent: Emergent Intubation Method: orotracheal Tube Size (cm): 7.5 Medications: Succinylcholine Breath Sounds after Intubation: equal Intubation Complications: no complications Post Intubation Xray: Yes Progress/Xray Impression: Good position Attempts: One Patient Tolerated: Well Complications: None Medical Decision Making Diagnostic Impression: Primary Impression: Acute respiratory failure Additional Impressions: Recurrent seizures Aspiration pneumonia ER Course Differential diagnosis included but not limited to worsening pneumonia, sepsis, acute on chronic respiratory failure, recurrent seizure to name a few. Patient presented with agonal respiration and rhonchorous breath sounds suspicion for aspiration pneumonia. Due to her poor respiratory status with inability to protect airway I decided to intubate. Patient intubated by me see intubation note for further details. Chest x-ray showed some haziness in the right lower lobe. White blood cell count elevated to greater than 20,000. Broad-spectrum IV antibiotics given. IV fluids given. Family was updated at the bedside. I spoke with patient's primary care physician who agreed to admit to the ICU. Procedure: XRAY Chest 1v Indication: Shortness of breath. Postintubation Comparison: 11/07/2019 A single view chest radiograph was obtained. Findings: Endotracheal tube is 3 cm above the azar in good position. Interstitial densities persist within the lungs are bilaterally. Heart is mildly enlarged. IMPRESSION: Endotracheal tube in good position Laboratory Tests Test 11/14/19 10:20 11/14/19 11:10 11/14/19 12:00 11/14/19 12:40 White Blood Count 24.2 K/UL (4.8-10.8) *H Red Blood Count 3.43 M/UL (4.20-5.40) L Hemoglobin 9.7 G/DL (12.0-16.0) L Hematocrit 30.4 % (37.0-47.0) L Mean Corpuscular Volume 89 FL (80-99) Mean Corpuscular Hemoglobin 28.2 PG (27.0-31.0) Mean Corpuscular Hemoglobin Concent 31.8 G/DL (32.0-36.0) L Red Cell Distribution Width 15.1 % (11.6-14.8) H Platelet Count 231 K/UL (150-450) Mean Platelet Volume 6.6 FL (6.5-10.1) Neutrophils (%) (Auto) % (45.0-75.0) Lymphocytes (%) (Auto) % (20.0-45.0) Monocytes (%) (Auto) % (1.0-10.0) Eosinophils (%) (Auto) % (0.0-3.0) Basophils (%) (Auto) % (0.0-2.0) Differential Total Cells Counted 100 Neutrophils % (Manual) 82 % (45-75) H Lymphocytes % (Manual) 8 % (20-45) L Monocytes % (Manual) 10 % (1-10) Eosinophils % (Manual) 0 % (0-3) Basophils % (Manual) 0 % (0-2) Band Neutrophils 0 % (0-8) Platelet Estimate Adequate Platelet Morphology Normal Anisocytosis 1+ Prothrombin Time 10.4 SEC (9.30-11.50) Prothrombin Time INR 1.0 (0.9-1.1) Activated Partial Thromboplast Time 27 SEC (23-33) Sodium Level 150 MMOL/L (136-145) H Potassium Level 5.9 MMOL/L (3.5-5.1) H Chloride Level 92 MMOL/L (98-107) L Carbon Dioxide Level > 45 MMOL/L (21-32) *H Blood Urea Nitrogen 186 mg/dL (7-18) H Creatinine 8.8 MG/DL (0.55-1.30) H Estimate Glomerular Filtration Rate 5.2 mL/min (>60) Glucose Level 287 MG/DL (74-106) H Lactic Acid Level 3.70 mmol/L (0.4-2.0) H 3.20 mmol/L (0.66-2.22) H Calcium Level 9.5 MG/DL (8.5-10.1) Magnesium Level 5.6 MG/DL (1.8-2.4) *H Total Bilirubin 0.4 MG/DL (0.2-1.0) Aspartate Amino Transferase (AST) 25 U/L (15-37) Alanine Aminotransferase (ALT) 21 U/L (12-78) Alkaline Phosphatase 109 U/L (46-116) Total Creatine Kinase 122 U/L (26-308) Creatine Kinase MB < 0.5 NG/ML (0.0-3.6) Creatine Kinase MB Relative Index 0.4 Troponin I 0.080 ng/mL (0.000-0.056) Total Protein 8.9 G/DL (6.4-8.2) H Albumin 2.6 G/DL (3.4-5.0) L Globulin 6.3 g/dL Albumin/Globulin Ratio 0.4 (1.0-2.7) L Urine Color Pale yellow Urine Appearance Slightly cloudy Urine pH 8 (4.5-8.0) Urine Specific [place] 1.015 (1.005-1.035) Urine Protein 3+ (NEGATIVE) H Urine Glucose (UA) 2+ (NEGATIVE) H Urine Ketones Negative (NEGATIVE) Urine Blood 4+ (NEGATIVE) H Urine Nitrite Negative (NEGATIVE) Urine Bilirubin 1+ (NEGATIVE) H Urine Ictotest Negative (NEGATIVE) Urine Urobilinogen Normal MG/DL (0.0-1.0) Urine Leukocyte Esterase 3+ (NEGATIVE) H Urine RBC 5-10 /HPF (0 - 2) H Urine WBC 30-40 /HPF (0 - 2) H Urine Squamous Epithelial Cells Moderate /LPF (NONE/OCC) H Urine Amorphous Sediment Few /LPF (NONE) H Urine Bacteria Moderate /HPF (NONE) H Urine Mucus Few /LPF (NONE/OCC) H Urine Yeast Few /HPF (NONE) H Arterial Blood pH 7.686 (7.350-7.450) Arterial Blood Partial Pressure CO2 36.9 mmHg (35.0-45.0) Arterial Blood Partial Pressure O2 284.7 mmHg (75.0-100.0) H Arterial Blood HCO3 43.2 mmol/L (22.0-26.0) *H Arterial Blood Oxygen Saturation 99.2 % (95-100) Arterial Blood Base Excess 21.2 (-2-2) *H Danilo Test Positive Microbiology Date/Time Source Procedure Growth Status 11/14/19 00:00 Nasal Nares - Final Complete 11/14/19 00:00 Nasal Nares - Final Complete EKG Diagnostic Results Rate: normal Rhythm: NSR ST Segments: no acute changes Rhythm Strip Diag. Results EP Interpretation: yes Rate: 90 Rhythm: NSR, no PVC's, no ectopy Last Vital Signs Date Time Temp Pulse Resp B/P (MAP) Pulse Ox O2 Delivery O2 Flow Rate FiO2 11/14/19 10:14 80 14 110/58 (75) 96 Simple Mask 15.0 Status: improved Disposition: ADMITTED INPATIENT Condition: Critical Jeffry Camacho M.D. Nov 14, 2019 10:42
[2019-11-14] MEDS ORDERED: CIPRO250 MG/51 PO (10:48)
[2019-11-14 10:49] LABS: HEMATOCRIT 30.4 % (37.0-47.0); HEMOGLOBIN 9.7 G/DL (12.0-16.0); MEAN CORPUSCULAR VOLUME 89 FL (80-99); PLATELET COUNT 231 K/UL (150-450); RED BLOOD COUNT 3.43 M/UL (4.20-5.40); RED CELL DISTRIBUTION WIDTH 15.1 % (11.6-14.8)
[2019-11-14 10:51] LABS: WHITE BLOOD COUNT 24.2 K/UL (4.8-10.8)
--- NOTE | 2019-11-14 11:02 | NUR ---
ED Nurse Note:dilma was incerted per MD order, continue monitor cardiac status
--- NOTE | 2019-11-14 11:05 | NUR ---
ED Nurse Note: DR. RIVERA ON THE PHONE WITH NAVDEEP PALENCIA RP/SISTER.
[2019-11-14] MEDS ORDERED: Succinylcholine 20mg/ml 10ml vial IV ONE (11:15)
[2019-11-14 11:34] LABS: ALANINE AMINOTRANSFERASE 21 U/L (12-78); ALBUMIN 2.6 G/DL (3.4-5.0); ALBUMIN/GLOBULIN RATIO 0.4 (1.0-2.7); ALKALINE PHOSPHATASE 109 U/L (46-116); ASPARTATE AMINO TRANSFERASE 25 U/L (15-37); BILIRUBIN,TOTAL 0.4 MG/DL (0.2-1.0); BLOOD UREA NITROGEN 186 mg/dL (7-18); CALCIUM 9.5 MG/DL (8.5-10.1); CHLORIDE 92 MMOL/L (98-107); CKMB < 0.5 NG/ML (0.0-3.6); CREATINE KINASE 122 U/L (26-308); CREATININE 8.8 MG/DL (0.55-1.30); POTASSIUM 5.9 MMOL/L (3.5-5.1); SODIUM 150 MMOL/L (136-145)
[2019-11-14 11:35] LABS: APPEARANCE,URINE SLIGHTLY CLOUDY; BILIRUBIN, URINE 1+ (NEGATIVE); COLOR,URINE PALE YELLOW; GLUCOSE, URINE (UA) 2+ (NEGATIVE); KETONES,URINE NEGATIVE (NEGATIVE); LEUKOCYTE ESTERASE ,URINE 3+ (NEGATIVE); NITRITE,URINE NEGATIVE (NEGATIVE); PH,URINE 8 (4.5-8.0); PROTEIN,URINE 3+ (NEGATIVE); UROBILINOGEN,URINE NORMAL MG/DL (0.0-1.0)
[2019-11-14 11:38] LABS: CARBON DIOXIDE > 45 MMOL/L (21-32)
--- NOTE | 2019-11-14 11:40 | NUR ---
ED Nurse Note: patient sister and brother is at bedside at this time.
--- NOTE | 2019-11-14 12:06 | Diagnostic Imaging Report ---
Indication: Shortness of breath. Postintubation Comparison: 11/07/2019 A single view chest radiograph was obtained. Findings: Endotracheal tube is 3 cm above the azar in good position. Interstitial densities persist within the lungs are bilaterally. Heart is mildly enlarged. IMPRESSION: Endotracheal tube in good position
--- NOTE | 2019-11-14 12:27 | NUR ---
ED Nurse Note:lactic reflax was sent to labs, skin is intact
--- NOTE | 2019-11-14 13:36 | NUR ---
ED Nurse Note:called report to ICU report given to Marleen GEIGER, respiratory called for transfer to ICU
--- NOTE | 2019-11-14 13:55 | NUR ---
NURSE NOTES: Received patient from ED Nurse Makayla RN. Patient is obtunded, receiving oxygen via ETT 7.5 24cm at the lip, vent settingsL AC 16, TV 500, Fio2 45%, PEEP 5. Barron catheter is intact and draining, IV site is Left wrist 20g intact and asymptomatic. G-tube/J-tube not patent and leaking, Dr. Crowder notified, Trifunnel replacement tube inserted in place. Bed is locked, placed in lowest position, side rails up x3, 2 side rails padded, bed alarm on, call light within reach. Will continue to monitor.
[2019-11-14] MEDS ORDERED: Albuterol/Ipratropium 3ml neb HHN PRN (14:15)
[2019-11-14] MEDS ORDERED: Sodium Polystyrene Sulfonate 15gm Powder PEG SCH ×2 (14:15→14:30)
[2019-11-14] MEDS ORDERED: LORazepam Inj 2mg/ml 1ml IV PRN (14:15)
[2019-11-14] MEDS ORDERED: Sodium Polystyrene Sulfonate Enema RECTAL PRN (14:30)
[2019-11-14] MEDS: levETIRAcetam 500mg/NS100ml 100 ML IVPB SCH ×2 (15:19→22:42)
[2019-11-14] MEDS: Pantoprazole Inj IVP SCH (15:25)
[2019-11-14] MEDS ORDERED: Vancomycin 500mg/D5W 110ml IVPB ONE ×2 (15:30)
[2019-11-14] MEDS ORDERED: Succinylcholine 20mg/ml 10ml vial ONE (16:13)
[2019-11-14] MEDS ORDERED: Piperacillin/Tazobactam 3.375 GM in NS 110 ML IVPB SCH (17:00)
--- NOTE | 2019-11-14 17:45 | History and Physical Report ---
DATE OF ADMISSION: 11/14/2019 CHIEF COMPLAINT: Respiratory failure, seizure, cardiac arrest. HISTORY OF PRESENT ILLNESS: The patient is an 79-year-old female. She has multiple medical problems including prior history of stroke, chronic kidney disease, congestive heart failure, diabetes. She was recently hospitalized for aspiration pneumonia. She was discharged back to the long term facility. Last week, I actually [facility] the [facility]. At that time, she was doing well. On the morning of transfer, the patient's J-tube became clogged. The patient was in the process of being transferred back to the hospital for J-tube change. She was being cleaned by one of the CNAs and while she has been cleaning, had a seizure and an apparent cardiac arrest. CPR was initiated and by the time the paramedics arrived, she had a pulse. She was intubated in the emergency room. Laboratories were significant for white count of 24,000. Sodium was 150, potassium was 5.9. Troponin 0.08. Creatinine was 8.8, a little less than a week it was 2.6. She had 30 to 40 wbc's. Chest x-ray showed interstitial densities bilaterally. The patient has been pancultured and started on IV antibiotics. Now admitted for further evaluation and care. She is unresponsive currently. She is orally intubated. PAST MEDICAL HISTORY: As above. PAST SURGICAL HISTORY: Includes a history of G-tube and a J-tube. CURRENT MEDICATIONS: Reconciled and reviewed. ALLERGIES: None. FAMILY HISTORY: None. SOCIAL HISTORY: Negative for tobacco, ethanol, or drugs. REVIEW OF SYSTEMS: Unobtainable. PHYSICAL EXAMINATION: VITAL SIGNS: Temperature 98 degrees, pulse 96, respirations 16, blood pressure 99/66. GENERAL: The patient is a chronically ill-appearing female, currently orally intubated. NECK: Supple. HEART: Regular rate and rhythm. LUNGS: Clear. ABDOMEN: Soft, nontender, nondistended. EXTREMITIES: Without clubbing or cyanosis. The patient has some mild edema of the lower extremities. NEUROLOGICAL: The pupils are 4 mm and sluggishly responsive. The patient does not withdraw to pain and is unresponsive. LABORATORY DATA: White count 24, hemoglobin 9.7, platelets 231. Sodium 150, potassium 5.9, chloride 90, bicarb 45, BUN 186, creatinine was 8.8. ASSESSMENT: This is an elderly female with multiple medical problems admitted with complaints of seizures, respiratory failure, possible cardiac arrest, aspiration pneumonia, acute on chronic renal failure, hyperkalemia. PLAN: 1. Continue vent support. 2. Broad-spectrum antibiotics. 3. Respiratory treatments. 4. Aggressive fluid resuscitation. 5. Barron catheter to manage urine output. 6. IV seizure medications will be given. 7. Renal, Cardiology, Infectious Disease, Pulmonary consultations will be obtained. 8. Plan of care has been discussed at length with the family in the emergency room. They have elected to make the patient DNR. They are considering withdrawal of care and comfort measures depending on her course over the next 24 to 48 hours. Jeffrey Crowder M.D. DR: CHRISTIANO JOB#: [id number] CC:
[2019-11-14] MEDS: Piperacillin/Tazobactam 3.375 GM in NS 110 ML IVPB SCH (17:46)
--- NOTE | 2019-11-14 19:26 | NUR ---
NURSE NOTES: Reported ABG results to Dr. Crowder, new vent setting orders received.
--- NOTE | 2019-11-14 19:28 | NUR ---
NURSE NOTES: Reported hypotensive blood pressure of 75/[address] Crowder, order for 500ml NS bolus received.
--- NOTE | 2019-11-14 19:51 | NUR ---
HAND-OFF: Report given to Krystian GEIGER.
--- NOTE | 2019-11-14 20:00 | NUR ---
NURSE NOTES: Received report from FELY Martínez. Pt is sleeping on the bed and lethargic. Pt has ETT#7.5 and Placed 24cm on the lip line. Vent dependent setting with AC: 12, T: 400, P5, FiO2: 40% and SaO2 99% noted. Given endotracheal and oral suction. Still suctioned bloody secretion via ETT and mouth. Provided oral care. Pt has G-tube and dressing is intact. On NPO. IV site intact and no sign of infiltration noted. On running with 1/2NS @ 100cc/hr. PT's BP was low and given NS 500cc IV bolus as ordered. Inserted new IV line on Lt. forearm area, On Barron cath and patent and yellowish and sedimented urine urinated and hourly 25-30cc/hr and MD aware. No sign of seizure activity at this time. No sign of pain by FLACC scale at this time. Dressing is clean and dry on wound area. changed position. Will continue to care plan and continue to monitor any change of condition.
--- NOTE | 2019-11-14 20:55 | NUR ---
NURSE NOTES: Get the ABG result and notified Dr. Crowder and no new order noted.
[2019-11-14] MEDS ORDERED: NovoLOG Insulin Flexpen SUBQ SCH (21:00)
--- NOTE | 2019-11-14 21:00 | NUR ---
NURSE NOTES: Notred K level is 5.9 Given Kayaxalate enema as ordered. Noted large BM. Cleaned Pt and applied lotion and cream. Will continue to monitor any change of condition.
--- NOTE | 2019-11-14 22:00 | NUR ---
NURSE NOTES: Pt is sleeping on the bed. Noted BP: 85/48mmHg, HR: 79's. On environmental monitoring technician wiht SR. Already got the NS 500cc IV bolus. On running with 1/2 NS @ 100cc/hr and noted urine output 30cc/hr. Left message Dr. Crowder and awaiting call back. Will continue to monitor any change of condition.
--- NOTE | 2019-11-14 22:15 | NUR ---
NURSE NOTES: Get call back from Dr. Crowder and new order received. Carried out. Left message to Family; Anastasiya Ugalde; sister for consent for PICC line and awaiting call back. Will continue to monitor any change of condition.
[2019-11-14] MEDS ORDERED: DOPamine 400mg/250ml 250 ML IV PRN (23:00)
--- NOTE | 2019-11-14 23:00 | NUR ---
NURSE NOTES: Left message to Family; Anastasiya Ugalde; sister for get the consent for PICC line insertion and awaiting call back.
--- NOTE | 2019-11-14 23:15 | NUR ---
NURSE NOTES: Obtained consent for PICC line and central line placement from Krissy Ugalde; Daughter; [phone].
[2019-11-14] MEDS ORDERED: Lidocaine 1% Plain 30 ml INJ ONE (23:30)
[2019-11-15] VITALS (35 sets, daily range): BP systolic 85–122; BP diastolic 47–68
--- NOTE | 2019-11-15 00:30 | NUR ---
NURSE NOTES: ER Dr. Montoya inserted central line on Rt. femoral area. Applied central line dressing with bio patch. visited and assessed Pt.
[2019-11-15] MEDS: DOPamine 400mg/250ml 250 ML IV SCH ×2 (01:17→15:17)
--- NOTE | 2019-11-15 02:00 | NUR ---
NURSE NOTES: Pt is sleeping on the bed and no sign of acute distress noted. Tolerated well with current Vent setting. On running with dopamine 4mcg/kg/hr and checked BP 111/60mmHg. Given suction. Changed position. Placed fall and seizure precaution. Will continue to monitor any change of condition.
--- NOTE | 2019-11-15 04:00 | NUR ---
NURSE NOTES: Morning care was done. Cleaned Pt and applied lotion and Cream. Given suction,. Still noted slight blood color secretion via ETT. Provided oral care. Repositioned. On running with dopamine drip 4mcg/kr/min and BP checke 103/61mmHg. No seizure episode at this time. Placed fall and seizure precaution. Will continue to care plan .
--- NOTE | 2019-11-15 04:01 | Emergency Room Report ---
History of Present Illness General Chief Complaint: Dyspnea/Respdistress Source: Medical Record, EMS Present Illness HPI Patient presents with respiratory failure and recurrent seizure. She is already on the ventilator in the ICU via trach. I was asked to place a central line in her because the for pressors. She was hypotensive. Allergies: Coded Allergies: No Known Allergies (Verified , 12/31/09) Nursing Documentation-PMH Past Medical History Deferred: Patient Unconscious Past Medical History: No History, Except For Hx Cardiac Problems: Yes - CHf; anemia Hx Hypertension: Yes Hx Pacemaker: No Hx Asthma: No Hx COPD: No Hx Diabetes: Yes Hx Cancer: No Hx Dialysis: No - CKD Hx Neurological Problems: Yes - hypothyroid Hx Cerebrovascular Accident: No Hx Seizures: No Hx Cerebral Palsy: Yes Physical Exam Vital Signs Date Time Temp Pulse Resp B/P (MAP) Pulse Ox O2 Delivery O2 Flow Rate FiO2 11/14/19 10:14 80 14 110/58 (75) 96 Simple Mask 15.0 11/14/19 10:42 100 11/14/19 12:32 98.0 Procedures Central Line Central Line : Consent: Other Central Line Lumen: triple Maximal Sterile Barrier Tech: yes cap, yes mask, yes sterile gown, yes sterile gloves, yes large sterile sheet, yes hand hygiene, yes chlorhexidine prep Central Line Postion: femoral (R) Complications: none Central Line Post Position: sutured, good blood return Attempts: One Patient Tolerated: Well Complications: None Medical Decision Making Diagnostic Impression: Primary Impression: Acute respiratory failure Additional Impressions: Aspiration pneumonia Recurrent seizures Last Vital Signs Date Time Temp Pulse Resp B/P (MAP) Pulse Ox O2 Delivery O2 Flow Rate FiO2 11/15/19 03:30 92 16 101/57 (72) 98 11/15/19 03:26 40 11/15/19 00:00 Mechanical Ventilator 11/14/19 20:00 98.7 11/14/19 13:38 15.0 Disposition: ADMITTED INPATIENT Condition: Critical Referrals: Jeffrey Crowder MD (PCP) Giuliano Montoya MD Nov 15, 2019 04:01
[2019-11-15] MEDS: Piperacillin/Tazobactam 3.375 GM in NS 110 ML IVPB SCH (04:53)
--- NOTE | 2019-11-15 05:15 | Consultation ---
DATE OF CONSULTATION: 11/14/2019 CARDIOLOGY CONSULTATION CONSULTING PHYSICIAN: Kavon Peña M.D. REQUESTING PHYSICIAN: Jeffrey Crowder M.D. REASON FOR CONSULTATION: Shock. HISTORY OF PRESENT ILLNESS: This 79-year-old female has multiple medical problems, was hospitalized repeatedly over the past month. She was recently [facility] facility. She was doing quite well several days ago. Her J-tube became clogged and while being transferred to the hospital for an intervention on the clogged J-tube, she apparently had a seizure and subsequent cardiac arrest. The patient had CPR initiated. Paramedics arrived. Her pulse had been obtained. The patient was intubated in the emergency room. She remains hypotensive with abnormal laboratory studies and I have been asked to assist with cardiovascular care. PAST MEDICAL HISTORY: GJ tube, dementia, hypertensive heart disease, chronic kidney disease, diverticular disease, type 2 diabetes mellitus, diastolic dysfunction, and cerebrovascular disease with advanced dementia. ALLERGIES: None. FAMILY HISTORY: Noncontributory. SOCIAL HISTORY: Nonsmoker. No alcohol or substance abuse. MEDICATIONS: Prior to admission, reviewed and reconciled. REVIEW OF SYSTEMS: Not obtainable from the patient. Of note most recent echocardiogram with normal ejection fraction, concentric hypertrophy, and mild degenerative valve disease. PHYSICAL EXAMINATION: VITAL SIGNS: Afebrile, blood pressure 80/50, pulse 118, and respiratory rate 16. HEENT: Temporal wasting. Orally intubated. Mechanically ventilated. Thin secretions. LUNGS: Bilateral breath sounds and rhonchi. CARDIAC: Regular rhythm and rate. Normal S1 and S2. No murmur appreciated. ABDOMEN: Soft. GJ tube intact. EXTREMITIES: There are contractures with no edema. LABORATORY AND DIAGNOSTIC DATA: BUN 186, bicarb 45, creatinine 8.8, chloride 90, potassium 5.9, and sodium 150. White count 24 and hemoglobin 9.7. EKG, sinus tachycardia with nonspecific ST-T wave changes. IMPRESSION: 1. Status post cardiopulmonary arrest. 2. Respiratory failure. 3. Shock due to sepsis and hypovolemia. 4. Acute renal failure. 5. Hyperkalemia. 6. Dehydration and hypernatremia. PLAN: 1. Ventilator support. 2. Broad-spectrum antimicrobials. 3. Aggressive saline hydration once blood pressure parameters stabilize. 4. Hypotonic IV fluids should be aggressively given. 5. IV seizure therapy. 6. Seizure precautions. 7. DVT prophylaxis. 8. No antihypertensive drugs. 9. We will likely need to initiate dopamine support if blood pressure fails to respond to volume resuscitation and central venous access. This to be obtained at this time. Kavon Peña M.D. DR: Justin JOB#: [id number] CC:
[2019-11-15 05:18] LABS: HEMATOCRIT 22.1 % (37.0-47.0); HEMOGLOBIN 7.3 G/DL (12.0-16.0); MEAN CORPUSCULAR VOLUME 86 FL (80-99); PLATELET COUNT 156 K/UL (150-450); RED BLOOD COUNT 2.57 M/UL (4.20-5.40); RED CELL DISTRIBUTION WIDTH 14.9 % (11.6-14.8)
[2019-11-15 05:27] LABS: WHITE BLOOD COUNT 22.2 K/UL (4.8-10.8)
[2019-11-15] MEDS: NovoLOG Insulin Flexpen SUBQ SCH ×4 (06:00→17:19)
[2019-11-15 06:07] LABS: ALANINE AMINOTRANSFERASE 22 U/L (12-78); ALBUMIN 2.8 G/DL (3.4-5.0); ALBUMIN/GLOBULIN RATIO 0.5 (1.0-2.7); ALKALINE PHOSPHATASE 115 U/L (46-116); ASPARTATE AMINO TRANSFERASE 33 U/L (15-37); BILIRUBIN,TOTAL 0.4 MG/DL (0.2-1.0); BLOOD UREA NITROGEN 178 mg/dL (7-18); CALCIUM 8.8 MG/DL (8.5-10.1); CHLORIDE 93 MMOL/L (98-107); CREATININE 8.8 MG/DL (0.55-1.30); SODIUM 151 MMOL/L (136-145)
[2019-11-15] MEDS ORDERED: Heparin1,000 units/500ml Premix(Conc:2 units/ml) IV PRN ×2 (06:08→08:30)
[2019-11-15] MEDS ORDERED: Lidocaine 1% Plain 30 ml INJ PRN ×2 (06:15→08:24)
[2019-11-15 06:17] LABS: CARBON DIOXIDE > 45 MMOL/L (21-32)
[2019-11-15 06:18] LABS: POTASSIUM 7.2 MMOL/L (3.5-5.1)
--- NOTE | 2019-11-15 06:30 | NUR ---
NURSE NOTES: Noted abnormal lab result and Left message to Dr. Crowder and awaiting call back.
--- NOTE | 2019-11-15 07:00 | NUR ---
NURSE NOTES: Get call back from Dr. Crowder and new order received. Obtained consent for blood transfusion from Krissy Ugalde; Daughter; [phone] by phone.
--- NOTE | 2019-11-15 07:30 | Consultation ---
DATE OF CONSULTATION: 11/14/2019 PULMONARY CONSULTATION CONSULTING PHYSICIAN: Torey Douglass M.D. REASON FOR CONSULTATION: Respiratory failure. HISTORY OF PRESENT ILLNESS: This is an 79-year-old female who has had multiple admissions to the medical center. The patient is now readmitted to the ICU. The patient is currently ventilator dependent. The patient currently without pain pain. The patient now is being hyperventilated. She apparently arrived with seizures, altered mental status, and she was found to be unresponsive. CPR was undertaken. The patient with history of pneumonia and history of hypercapnia. The patient's care was discussed and reviewed. The patient is currently in the ICU. The patient currently is critical in status. The patient is noted to be in severe respiratory distress. PAST MEDICAL HISTORY: CHF, anemia, Dementia, hypercapnia, hypothyroidism, pneumonia history. MEDICATIONS: Reviewed. ALLERGIES: Reviewed. SOCIAL HISTORY: Resides in a shelter facility. Currently disabled. FAMILY HISTORY: Unavailable. REVIEW OF SYSTEMS: Not obtainable. PHYSICAL EXAMINATION: GENERAL: The patient is an ill-appearing female overall, on the ventilator. poorly responsive VITAL SIGNS: Blood pressure 96/66, 100% saturation, heart rate 96, and temperature is 98. HEENT: Negative. NECK: Supple. The patient is orally intubated. LUNGS: With coarse breath sounds. Moderate air entry. CARDIAC: S1 and S2. Currently regular rate and rhythm without murmurs, rubs, or gallops. ABDOMEN: Soft. Reduced bowel sounds. EXTREMITIES: No cyanosis or clubbing. SKIN: Noted and reviewed. NEUROLOGIC: sedated LABORATORY AND DIAGNOSTIC DATA: all reviewed. Sodium 150, potassium 5.9, BUN 186, creatinine 8.8. Troponin is 0.080. White count is 24, hemoglobin 9.7, hematocrit 30. Chest x-ray with interstitial changes and enlarged heart. IMPRESSION: Respiratory failure, acute on chronic. Alkalemia due to hyperventilation, chronic metabolic alkalosis, chronic respiratory acidosis, leukocytosis, possible sepsis, anemia, hyponatremia, hyperkalemia, chronic renal failure, severe protein-calorie malnutrition. RECOMMENDATIONS: Supportive care. IV hydration. monitor ventilator and follow up clinically as needed. taper fio2. Antibiotics for possible sepsis. Nebulized therapy with close monitoring in the ICU and assess for possible weaning off the respirator. We will follow clinically for further changes and interventions and optimization. ICU care reviewed in detail. Patient is critical at present Torey Douglass M.D. DR: JOANIE JOB#: [id number] CC: JUAN MANUEL
--- NOTE | 2019-11-15 07:33 | NUR ---
NURSE NOTES: LATE ENTRY; RECEIVED REPORT FROM [facility]. Wallace PT OBTUNDED. PUPILS 4MM SLUGGISH. REACTION TO DEEP PAIN WITHDRAWALS, LIFTS EYEBROWS, WON'T OPEN EYES. UPPER AND LOWER EXTREMITY WEAKNESS. GAG REFLEX HYPOACTIVE. SECRETIONS RED, MODERATE, THIN. LUNG SOUNDS DIMINISHED THROUGH OUT. PT INTUBATED ETT TUBE 7.5, 24CM AT LIP. VENT SETTINGS: AC 12, VT 400, FI02 40%, PEEP 5. SATING 98%. HOB 35. PT NPO EXCEPT MEDS AND ICE CHIPS. G-TUBE IN PLACE. ABDOMEN DISTENDED, SOFT. BOWEL SOUNDS HYPOACTIVE. GREEN GASTRIC CONTENT SEEN THROUGH CLEAR TUBING. NO BM AT THIS TIME. AN DRAINING PALE URINE. RUNNING 1/2 NS AT 150ML/HR DOPAMINE 4MCG/KG/MIN. CONTACT PRECAUTIONS. BED LOCKED, IN LOW POSITION.
--- NOTE | 2019-11-15 07:36 | NUR ---
HAND-OFF: Report given to FELY Canela. Pt is resting on the bed and tolerated well with current Vent setting. BP is stable. Dr. Crowder visited and assessed PT.
--- NOTE | 2019-11-15 08:25 | NUR ---
NURSE NOTES: LATE ENTRY: CALLED MD LUX REGARDING KAYEXALATE POWDER NGT AND PER RECTAL ROUTE. AWAITING CALL BACK.
--- NOTE | 2019-11-15 08:30 | General Progress Note ---
Assessment/Plan Problem List: (1) Shock ICD Codes: R57.9 - Shock, unspecified SNOMED: 33393040 (2) Anemia due to acute blood loss ICD Codes: D62 - Acute posthemorrhagic anemia SNOMED: 847896938 (3) Hyperkalemia ICD Codes: E87.5 - Hyperkalemia SNOMED: 63712464 (4) Recurrent seizures ICD Codes: G40.909 - Epilepsy, unspecified, not intractable, without status epilepticus SNOMED: 52801042, 55937844 (5) Aspiration pneumonia ICD Codes: J69.0 - Pneumonitis due to inhalation of food and vomit SNOMED: 869986103 (6) ARF (acute renal failure) ICD Codes: N17.9 - Acute kidney failure, unspecified SNOMED: 16614015 (7) ATN (acute tubular necrosis) ICD Codes: N17.0 - Acute kidney failure with tubular necrosis SNOMED: 38049237 Status: not improved, deteriorating Assessment/Plan: cont vent support resp care suctioning as needed iv abx pressors check ekg insulin and d50 kayexylate renal eval called- transfuse critical and guarded grim prognosis Subjective ROS Limited/Unobtainable: No Constitutional: Reports: malaise, weakness HEENT: Reports: no symptoms Cardiovascular: Reports: no symptoms Respiratory: Reports: cough Gastrointestinal/Abdominal: Reports: no symptoms Genitourinary: Reports: no symptoms Neurologic/Psychiatric: Reports: pre-existing deficit Endocrine: Reports: no symptoms Hematologic/Lymphatic: Reports: anemia Allergies: Coded Allergies: No Known Allergies (Verified , 12/31/09) All Systems: reviewed and negative except above Subjective hypotensive. low h/h noted. bloody secretion. high k noted. on dopamine. appears comfortable. no reports of szs, Objective Last 24 Hour Vital Signs Date Time Temp Pulse Resp B/P (MAP) Pulse Ox O2 Delivery O2 Flow Rate FiO2 11/15/19 07:13 88 12 40 11/15/19 07:00 88 13 94/47 (63) 99 11/15/19 07:00 94/47 11/15/19 06:30 88 16 11/15/19 06:27 98/52 11/15/19 06:00 89 13 98/52 (67) 99 11/15/19 05:30 89 15 100/54 (69) 99 11/15/19 05:00 96/54 11/15/19 05:00 89 16 96/54 (68) 98 11/15/19 04:30 90 16 104/56 (72) 98 11/15/19 04:00 92 11/15/19 04:00 Mechanical Ventilator 11/15/19 04:00 98.7 92 16 103/61 (75) 99 11/15/19 04:00 103/61 11/15/19 04:00 40 11/15/19 03:30 92 16 101/57 (72) 98 11/15/19 03:26 91 12 40 11/15/19 03:00 95/61 11/15/19 03:00 91 16 95/61 (72) 98 11/15/19 02:45 91 16 103/62 (76) 98 11/15/19 02:30 91 13 103/55 (71) 99 11/15/19 02:15 99 12 111/55 (73) 99 11/15/19 02:00 99 12 111/60 (77) 99 11/15/19 02:00 110/57 11/15/19 01:45 100 12 110/57 (74) 99 11/15/19 01:30 107/57 11/15/19 01:30 91 12 107/57 (74) 99 11/15/19 01:17 84/48 11/15/19 01:15 91 12 85/48 (60) 99 11/15/19 01:00 91 12 86/54 (65) 99 11/15/19 00:36 85 15 40 11/15/19 00:00 Mechanical Ventilator 11/15/19 00:00 82 11/15/19 00:00 40 11/15/19 00:00 98.7 90 12 108/58 (75) 99 11/14/19 23:00 72 12 84/48 (60) 99 11/14/19 22:44 77 12 40 11/14/19 22:00 76 12 85/48 (60) 99 11/14/19 21:00 74 12 90/55 (67) 99 11/14/19 20:44 81 18 40 11/14/19 20:00 81 11/14/19 20:00 40 11/14/19 20:00 Mechanical Ventilator 11/14/19 20:00 98.7 80 12 111/48 (69) 99 11/14/19 19:33 40 11/14/19 19:30 81 12 102/54 (70) 98 11/14/19 19:12 84 16 50 11/14/19 19:00 84 16 83/50 (61) 97 11/14/19 18:00 85 16 75/51 (59) 100 11/14/19 17:19 88 16 100 11/14/19 17:00 85 16 76/54 (61) 100 11/14/19 16:01 Endotrachael Tube 11/14/19 16:00 97.8 83 16 97/56 (70) 100 11/14/19 15:43 83 11/14/19 15:14 86 16 100 11/14/19 15:00 86 16 77/54 (62) 100 11/14/19 14:10 89 16 100 11/14/19 14:06 94 11/14/19 13:38 98.0 96 16 96/66 100 Mechanical Ventilator 15.0 100 11/14/19 13:27 95 16 100 11/14/19 12:32 98.0 96 16 96/66 100 Mechanical Ventilator 15.0 100 11/14/19 11:01 102 26 Mechanical Ventilator 15.0 100 11/14/19 10:59 102 26 135/77 96 Mechanical Ventilator 15.0 100 11/14/19 10:42 101 22 100 11/14/19 10:14 80 14 110/58 (75) 96 Simple Mask 15.0 Intake and Output 11/14/19 11/15/19 19:00 07:00 Intake Total 500.57 ml 2391.262 ml Output Total 55 ml 525 ml Balance 445.57 ml 1866.262 ml Intake IV Total 500.57 ml 2391.262 ml Output Urine Total 55 ml 525 ml # Voids 1 # Bowel Movements 2 3 Laboratory Tests 11/14/19 10:20: White Blood Count 24.2*H, Red Blood Count 3.43L, Hemoglobin 9.7L, Hematocrit 30.4L, Mean Corpuscular Volume 89, Mean Corpuscular Hemoglobin 28.2, Mean Corpuscular Hemoglobin Concent 31.8L, Red Cell Distribution Width 15.1H, Platelet Count 231, Mean Platelet Volume 6.6, Neutrophils (%) (Auto) , Lymphocytes (%) (Auto) , Monocytes (%) (Auto) , Eosinophils (%) (Auto) , Basophils (%) (Auto) , Differential Total Cells Counted 100, Neutrophils % ( Manual) 82H, Lymphocytes % (Manual) 8L, Monocytes % (Manual) 10, Eosinophils % ( Manual) 0, Basophils % (Manual) 0, Band Neutrophils 0, Platelet Estimate Adequate, Platelet Morphology Normal, Anisocytosis 1+, Prothrombin Time 10.4, Prothromb Time International Ratio 1.0, Activated Partial Thromboplast Time 27, Sodium Level 150H, Potassium Level 5.9H, Chloride Level 92L, Carbon Dioxide Level > 45*H, Blood Urea Nitrogen 186H, Creatinine 8.8H, Estimat Glomerular Filtration Rate 5.2, Glucose Level 287H, Lactic Acid Level 3.70H, Calcium Level 9.5, Magnesium Level 5.6*H, Total Bilirubin 0.4, Aspartate Amino Transf (AST/ SGOT) 25, Alanine Aminotransferase (ALT/SGPT) 21, Alkaline Phosphatase 109, Total Creatine Kinase 122, Creatine Kinase MB < 0.5, Creatine Kinase MB Relative Index 0.4, Troponin I 0.080H, Total Protein 8.9H, Albumin 2.6L, Globulin 6.3, Albumin/Globulin Ratio 0.4L 11/14/19 11:10: Urine Color Pale yellow, Urine Appearance Slightly cloudy, Urine pH 8, Urine Specific [place] 1.015, Urine Protein 3+H, Urine Glucose (UA) 2+H, Urine Ketones Negative, Urine Blood 4+H, Urine Nitrite Negative, Urine Bilirubin 1+H, Urine Ictotest Negative, Urine Urobilinogen Normal, Urine Leukocyte Esterase 3+H , Urine RBC 5-10H, Urine WBC 30-40H, Urine Squamous Epithelial Cells ModerateH, Urine Amorphous Sediment FewH, Urine Bacteria ModerateH, Urine Mucus FewH, Urine Yeast FewH 11/14/19 12:00: Lactic Acid Level 3.20H 11/14/19 12:40: Arterial Blood pH 7.686*H, Arterial Blood Partial Pressure CO2 36.9, Arterial Blood Partial Pressure O2 284.7H, Arterial Blood HCO3 43.2*H, Arterial Blood Oxygen Saturation 99.2, Arterial Blood Base Excess 21.2*H, Danilo Test Positive 11/14/19 18:06: Arterial Blood pH 7.736*H, Arterial Blood Partial Pressure CO2 29.0L, Arterial Blood Partial Pressure O2 275.7H, Arterial Blood HCO3 38.1H, Arterial Blood Oxygen Saturation 99.1, Arterial Blood Base Excess 17.4*H, Danilo Test Positive 11/14/19 20:40: Arterial Blood pH 7.616*H, Arterial Blood Partial Pressure CO2 39.9, Arterial Blood Partial Pressure O2 111.8H, Arterial Blood HCO3 39.7H, Arterial Blood Oxygen Saturation 97.5, Arterial Blood Base Excess 16.9*H, Danilo Test Positive 11/14/19 23:50: Lactic Acid Level 2.70H 11/15/19 04:40: Lactic Acid Level 2.60H, White Blood Count 22.2*H, Red Blood Count 2.57L, Hemoglobin 7.3L, Hematocrit 22.1L, Mean Corpuscular Volume 86, Mean Corpuscular Hemoglobin 28.3, Mean Corpuscular Hemoglobin Concent 32.9, Red Cell Distribution Width 14.9H, Platelet Count 156, Mean Platelet Volume 6.5, Neutrophils (%) (Auto) , Lymphocytes (%) (Auto) , Monocytes (%) (Auto) , Eosinophils (%) (Auto) , Basophils (%) (Auto) , Neutrophils % (Manual) [Pending] , Lymphocytes % (Manual) [Pending], Platelet Estimate [Pending], Platelet Morphology [Pending], Sodium Level 151H, Potassium Level 7.2*H, Chloride Level 93L, Carbon Dioxide Level > 45*H, Blood Urea Nitrogen 178H, Creatinine 8.8H, Estimat Glomerular Filtration Rate 5.2, Glucose Level 228H, Calcium Level 8.8, Total Bilirubin 0.4, Aspartate Amino Transf (AST/SGOT) 33, Alanine Aminotransferase (ALT/SGPT) 22, Alkaline Phosphatase 115, Total Protein 8.2, Albumin 2.8L, Globulin 5.4, Albumin/Globulin Ratio 0.5L Height (Feet): 5 Height (Inches): 3.00 Weight (Pounds): 175 General Appearance: WD/WN, lethargic, confused Neck: supple, normal inspection Cardiovascular: normal rate Respiratory/Chest: chest wall non-tender, lungs clear, normal breath sounds, no respiratory distress, no accessory muscle use Abdomen: normal bowel sounds, non tender, soft, no organomegaly, no mass Edema: no edema noted Arm (L), no edema noted Arm (R), no edema noted Leg (L), no edema noted Leg (R), no edema noted Pedal (L), no edema noted Pedal (R), no edema noted Generalized Edema: trace edema Neurologic: disoriented Jeffrey Crowder MD Nov 15, 2019 08:30
[2019-11-15] MEDS ORDERED: Heparin1,000 units/500ml Premix(Conc:2 units/ml) IV ONE (09:00)
[2019-11-15] MEDS ORDERED: Sodium Polystyrene Sulfonate Enema RECTAL SCH (09:00)
[2019-11-15] MEDS ORDERED: Lidocaine 1% Plain 30 ml INJ ONE (09:00)
--- NOTE | 2019-11-15 09:04 | Critical Care Progress Note ---
Assessment/Plan Assessment/Plan Respiratory failure, acute on chronic. Alkalemia due to hyperventilation, chronic metabolic alkalosis, chronic respiratory acidosis, leukocytosis, possible sepsis, anemia, hyponatremia, hyperkalemia, chronic renal failure, severe protein-calorie malnutrition. PLAN care noted IV antibiotics respiratory care Ventilatory support meds noted SNF meds supportive care suction no wean for now oxygen therapy prognosis guarded medications/laboratory data/nursing notes/ICU care reviewed in detail note reviewed and edited care discussed with RN and RT ICU time spent >40 minutes Critical Care - Subjective Interval Events: ICU care reviewed on vent still hyperventilating reduced LOC lines reviewed ROS Limited/Unobtainable: Yes Condition: critical EKG Rhythm: Sinus Rhythm I&O: Intake and Output 11/14/19 11/15/19 19:00 07:00 Intake Total 500.57 ml 2391.262 ml Output Total 55 ml 525 ml Balance 445.57 ml 1866.262 ml Intake IV Total 500.57 ml 2391.262 ml Output Urine Total 55 ml 525 ml # Voids 1 # Bowel Movements 2 3 Critical Care - Objective ET-Tube: 7.5 ET Position: 24 Last 24 Hour Vital Signs Date Time Temp Pulse Resp B/P (MAP) Pulse Ox O2 Delivery O2 Flow Rate FiO2 11/15/19 08:00 40 11/15/19 07:13 88 12 40 11/15/19 07:00 88 13 94/47 (63) 99 11/15/19 07:00 94/47 11/15/19 06:30 88 16 11/15/19 06:27 98/52 11/15/19 06:00 89 13 98/52 (67) 99 11/15/19 05:30 89 15 100/54 (69) 99 11/15/19 05:00 96/54 11/15/19 05:00 89 16 96/54 (68) 98 11/15/19 04:30 90 16 104/56 (72) 98 11/15/19 04:00 92 11/15/19 04:00 Mechanical Ventilator 11/15/19 04:00 98.7 92 16 103/61 (75) 99 11/15/19 04:00 103/61 11/15/19 04:00 40 11/15/19 03:30 92 16 101/57 (72) 98 11/15/19 03:26 91 12 40 11/15/19 03:00 95/61 11/15/19 03:00 91 16 95/61 (72) 98 11/15/19 02:45 91 16 103/62 (76) 98 11/15/19 02:30 91 13 103/55 (71) 99 11/15/19 02:15 99 12 111/55 (73) 99 11/15/19 02:00 99 12 111/60 (77) 99 11/15/19 02:00 110/57 11/15/19 01:45 100 12 110/57 (74) 99 11/15/19 01:30 107/57 11/15/19 01:30 91 12 107/57 (74) 99 11/15/19 01:17 84/48 11/15/19 01:15 91 12 85/48 (60) 99 11/15/19 01:00 91 12 86/54 (65) 99 11/15/19 00:36 85 15 40 11/15/19 00:00 Mechanical Ventilator 11/15/19 00:00 82 11/15/19 00:00 40 11/15/19 00:00 98.7 90 12 108/58 (75) 99 11/14/19 23:00 72 12 84/48 (60) 99 11/14/19 22:44 77 12 40 11/14/19 22:00 76 12 85/48 (60) 99 11/14/19 21:00 74 12 90/55 (67) 99 11/14/19 20:44 81 18 40 11/14/19 20:00 81 11/14/19 20:00 40 11/14/19 20:00 Mechanical Ventilator 11/14/19 20:00 98.7 80 12 111/48 (69) 99 11/14/19 19:33 40 11/14/19 19:30 81 12 102/54 (70) 98 11/14/19 19:12 84 16 50 11/14/19 19:00 84 16 83/50 (61) 97 11/14/19 18:00 85 16 75/51 (59) 100 11/14/19 17:19 88 16 100 11/14/19 17:00 85 16 76/54 (61) 100 11/14/19 16:01 Endotrachael Tube 11/14/19 16:00 97.8 83 16 97/56 (70) 100 11/14/19 15:43 83 11/14/19 15:14 86 16 100 11/14/19 15:00 86 16 77/54 (62) 100 11/14/19 14:10 89 16 100 11/14/19 14:06 94 11/14/19 13:38 98.0 96 16 96/66 100 Mechanical Ventilator 15.0 100 11/14/19 13:27 95 16 100 11/14/19 12:32 98.0 96 16 96/66 100 Mechanical Ventilator 15.0 100 11/14/19 11:01 102 26 Mechanical Ventilator 15.0 100 11/14/19 10:59 102 26 135/77 96 Mechanical Ventilator 15.0 100 11/14/19 10:42 101 22 100 11/14/19 10:14 80 14 110/58 (75) 96 Simple Mask 15.0 Labs: Labs Test 11/14/19 10:20 11/14/19 11:10 11/14/19 12:00 11/14/19 12:40 White Blood Count 24.2 K/UL (4.8-10.8) Red Blood Count 3.43 M/UL (4.20-5.40) Hemoglobin 9.7 G/DL (12.0-16.0) Hematocrit 30.4 % (37.0-47.0) Mean Corpuscular Volume 89 FL (80-99) Mean Corpuscular Hemoglobin 28.2 PG (27.0-31.0) Mean Corpuscular Hemoglobin Concent 31.8 G/DL (32.0-36.0) Red Cell Distribution Width 15.1 % (11.6-14.8) Platelet Count 231 K/UL (150-450) Mean Platelet Volume 6.6 FL (6.5-10.1) Neutrophils (%) (Auto) % (45.0-75.0) Lymphocytes (%) (Auto) % (20.0-45.0) Monocytes (%) (Auto) % (1.0-10.0) Eosinophils (%) (Auto) % (0.0-3.0) Basophils (%) (Auto) % (0.0-2.0) Differential Total Cells Counted 100 Neutrophils % (Manual) 82 % (45-75) Lymphocytes % (Manual) 8 % (20-45) Monocytes % (Manual) 10 % (1-10) Eosinophils % (Manual) 0 % (0-3) Basophils % (Manual) 0 % (0-2) Band Neutrophils 0 % (0-8) Platelet Estimate Adequate Platelet Morphology Normal Anisocytosis 1+ Prothrombin Time 10.4 SEC (9.30-11.50) Prothromb Time International Ratio 1.0 (0.9-1.1) Activated Partial Thromboplast Time 27 SEC (23-33) Sodium Level 150 MMOL/L (136-145) Potassium Level 5.9 MMOL/L (3.5-5.1) Chloride Level 92 MMOL/L (98-107) Carbon Dioxide Level > 45 MMOL/L (21-32) Blood Urea Nitrogen 186 mg/dL (7-18) Creatinine 8.8 MG/DL (0.55-1.30) Estimat Glomerular Filtration Rate 5.2 mL/min (>60) Glucose Level 287 MG/DL (74-106) Lactic Acid Level 3.70 mmol/L (0.4-2.0) 3.20 mmol/L (0.66-2.22) Calcium Level 9.5 MG/DL (8.5-10.1) Magnesium Level 5.6 MG/DL (1.8-2.4) Total Bilirubin 0.4 MG/DL (0.2-1.0) Aspartate Amino Transf (AST/SGOT) 25 U/L (15-37) Alanine Aminotransferase (ALT/SGPT) 21 U/L (12-78) Alkaline Phosphatase 109 U/L (46-116) Total Creatine Kinase 122 U/L (26-308) Creatine Kinase MB < 0.5 NG/ML (0.0-3.6) Creatine Kinase MB Relative Index 0.4 Troponin I 0.080 ng/mL (0.000-0.056) Total Protein 8.9 G/DL (6.4-8.2) Albumin 2.6 G/DL (3.4-5.0) Globulin 6.3 g/dL Albumin/Globulin Ratio 0.4 (1.0-2.7) Urine Color Pale yellow Urine Appearance Slightly cloudy Urine pH 8 (4.5-8.0) Urine Specific [place] 1.015 (1.005-1.035) Urine Protein 3+ (NEGATIVE) Urine Glucose (UA) 2+ (NEGATIVE) Urine Ketones Negative (NEGATIVE) Urine Blood 4+ (NEGATIVE) Urine Nitrite Negative (NEGATIVE) Urine Bilirubin 1+ (NEGATIVE) Urine Ictotest Negative (NEGATIVE) Urine Urobilinogen Normal MG/DL (0.0-1.0) Urine Leukocyte Esterase 3+ (NEGATIVE) Urine RBC 5-10 /HPF (0 - 2) Urine WBC 30-40 /HPF (0 - 2) Urine Squamous Epithelial Cells Moderate /LPF (NONE/OCC) Urine Amorphous Sediment Few /LPF (NONE) Urine Bacteria Moderate /HPF (NONE) Urine Mucus Few /LPF (NONE/OCC) Urine Yeast Few /HPF (NONE) Arterial Blood pH 7.686 (7.350-7.450) Arterial Blood Partial Pressure CO2 36.9 mmHg (35.0-45.0) Arterial Blood Partial Pressure O2 284.7 mmHg (75.0-100.0) Arterial Blood HCO3 43.2 mmol/L (22.0-26.0) Arterial Blood Oxygen Saturation 99.2 % (95-100) Arterial Blood Base Excess 21.2 (-2-2) Danilo Test Positive Test 11/14/19 18:06 11/14/19 20:40 11/14/19 23:50 11/15/19 04:40 Arterial Blood pH 7.736 (7.350-7.450) 7.616 (7.350-7.450) Arterial Blood Partial Pressure CO2 29.0 mmHg (35.0-45.0) 39.9 mmHg (35.0-45.0) Arterial Blood Partial Pressure O2 275.7 mmHg (75.0-100.0) 111.8 mmHg (75.0-100.0) Arterial Blood HCO3 38.1 mmol/L (22.0-26.0) 39.7 mmol/L (22.0-26.0) Arterial Blood Oxygen Saturation 99.1 % (95-100) 97.5 % (95-100) Arterial Blood Base Excess 17.4 (-2-2) 16.9 (-2-2) Danilo Test Positive Positive Lactic Acid Level 2.70 mmol/L (0.4-2.0) 2.60 mmol/L (0.66-2.22) White Blood Count 22.2 K/UL (4.8-10.8) Red Blood Count 2.57 M/UL (4.20-5.40) Hemoglobin 7.3 G/DL (12.0-16.0) Hematocrit 22.1 % (37.0-47.0) Mean Corpuscular Volume 86 FL (80-99) Mean Corpuscular Hemoglobin 28.3 PG (27.0-31.0) Mean Corpuscular Hemoglobin Concent 32.9 G/DL (32.0-36.0) Red Cell Distribution Width 14.9 % (11.6-14.8) Platelet Count 156 K/UL (150-450) Mean Platelet Volume 6.5 FL (6.5-10.1) Neutrophils (%) (Auto) % (45.0-75.0) Lymphocytes (%) (Auto) % (20.0-45.0) Monocytes (%) (Auto) % (1.0-10.0) Eosinophils (%) (Auto) % (0.0-3.0) Basophils (%) (Auto) % (0.0-2.0) Differential Total Cells Counted 100 Neutrophils % (Manual) 84 % (45-75) Lymphocytes % (Manual) 9 % (20-45) Monocytes % (Manual) 7 % (1-10) Eosinophils % (Manual) 0 % (0-3) Basophils % (Manual) 0 % (0-2) Band Neutrophils 0 % (0-8) Platelet Estimate Adequate Platelet Morphology Normal Hypochromasia 3+ Anisocytosis 1+ Sodium Level 151 MMOL/L (136-145) Potassium Level 7.2 MMOL/L (3.5-5.1) Chloride Level 93 MMOL/L (98-107) Carbon Dioxide Level > 45 MMOL/L (21-32) Blood Urea Nitrogen 178 mg/dL (7-18) Creatinine 8.8 MG/DL (0.55-1.30) Estimat Glomerular Filtration Rate 5.2 mL/min (>60) Glucose Level 228 MG/DL (74-106) Calcium Level 8.8 MG/DL (8.5-10.1) Total Bilirubin 0.4 MG/DL (0.2-1.0) Aspartate Amino Transf (AST/SGOT) 33 U/L (15-37) Alanine Aminotransferase (ALT/SGPT) 22 U/L (12-78) Alkaline Phosphatase 115 U/L (46-116) Total Protein 8.2 G/DL (6.4-8.2) Albumin 2.8 G/DL (3.4-5.0) Globulin 5.4 g/dL Albumin/Globulin Ratio 0.5 (1.0-2.7) Objective: WDWN ETT in place reduced LOC reduced breath sounds bilaterally without rhonchi or wheeze [id number] without MRG NABS nontender no HSM; no distention no CCE nonfocal Micro: Microbiology Date/Time Source Procedure Growth Status 11/14/19 11:10 Sputum Induced Gram Stain - Final Resulted 11/14/19 11:10 Sputum Induced Sputum Culture Pending Resulted 11/14/19 00:00 Nasal Nares - Final Complete 11/14/19 00:00 Nasal Nares - Final Complete 11/14/19 11:10 Urine,Clean Catch Urine Culture - Preliminary Resulted Accucheck: 95 Torey Douglass MD Nov 15, 2019 09:04
--- NOTE | 2019-11-15 09:15 | NUR ---
*-* NO INSURANCE INFORMATION IN THE BAR UNABLE TO SEND CLINICALS OR REVIEWS *-*
--- NOTE | 2019-11-15 09:19 | NUR ---
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 97.6 HR 80 RR 14 B/P 110/58 AC 16 TV 500 FIO2 100% PEEP 5 WBC 24.2 NA 150 MG 5.6 CO2>45 MG 5.6 TROP 0.080 PH 7.68 PCO2 36.9 PO2 284.7 HCO3 43.2 O2 98.2 UA+ BLOOD,LEUKOCYTE ESTERASE,RBC,WBC,EPITHELIAL SQUAMOUS CELLS.RBC,WBC IS: IV BOLUS NS X 1 LITER VANCO IV ZOSYN IV DOPAMINE GTT ADMITTED TO ICU @ 1628 ICU STATUS DCP RETURN TO CVP
[2019-11-15] MEDS: Pantoprazole Inj IVP SCH (09:26)
[2019-11-15] MEDS: levETIRAcetam 500mg/NS100ml 100 ML IVPB SCH ×2 (09:26→21:18)
[2019-11-15] MEDS ORDERED: Insulin Human Regular 100units/ml 3ml IV SCH (10:00)
--- NOTE | 2019-11-15 10:00 | NUR ---
NURSE NOTES: LATE ENTRY: KAYEXALATE ENEMA ADMINISTERED PER RECTAL ROUTE. PT HAD PREVIOUS BM, SMALL BROWN, SOFT. PT CLEANED ADMINISTERED FULL AMOUNT. PT UNABLE TO RETAIN ALL FLUIDS.
--- NOTE | 2019-11-15 10:41 | NUR ---
SUSPENSION CORD TIER NOTE Pt has admitted to [facility] on 11/14/2019. Per chart review, pt resides at [address] [place] [address]. Emergency contacts listed: Anastasiya Ugalde (sister) [phone] and Krissy Ugalde (daughter) [phone]. SW spoke a/ Krissy Ugalde. PEr Krissy, the first point of contact will be Anastasiya Ugalde. Both Anastasiya and Krissy are POA for pt. Krissy states Pt is DNR&DNI but she encouraged SW to confirm the code status w/ Anastasiya Ugalde. MARISELA left a vm to Anastasiya Ugalde [phone] for call back. Signed: 11/15/19 at 1044 by ED ANTONIO <Co-Signature Required>
--- NOTE | 2019-11-15 11:00 | NUR ---
NURSE NOTES: LATE ENTRY: CALLED MD WHITEHEAD HERE TO SEE PT. INFORMED THAT WBC TRENDING DOWN NOW 22.2. AFEBRILE. ON DOPAMINE AT 6MCG/KG/MIN. WILL PLACE OWN ORDERS.
--- NOTE | 2019-11-15 11:52 | Diagnostic Imaging Report ---
Indication: Lower extremity edema, respiratory failure, shortness of breath Technique: Grayscale and duplex images of the bilateral lower extremity veins Comparison: 09/13/2016 Findings: Bilaterally, grayscale and duplex images demonstrate no evidence of intraluminal thrombus. Normal phasic Doppler waveforms, demonstrating normal augmentation response and no evidence of valvular insufficiency. Greater saphenous vein(s) and tibial veins are patent. Normal compressibility. No significant interim change Impression: Negative for evidence of lower extremity deep venous thrombosis bilaterally
--- NOTE | 2019-11-15 12:00 | NUR ---
NURSE NOTES: LATE ENTRY: CALLED MD LUX REGARDING KAYEXALATE POWDER NGT AND PER RECTAL ROUTE. AWAITING CALL BACK. PER PHARMACY REQUEST.
--- NOTE | 2019-11-15 12:28 | NUR ---
RD ASSESSMENT & RECOMMENDATIONS SEE CARE ACTIVITY FOR COMPLETE ASSESSMENT DAILY ESTIMATED NEEDS: Needs based on Critical care, sepsis, wound, ARF/ 57.7kg abw 22-30 kcals/kg 8732-7366 total kcals 0.8-1.3 (increase w/ renal fxn improvement) g protein/kg 46-75 g total protein 25-30 mL/kg 7830-0827 total fluid mLs NUTRITION DIAGNOSIS: 1) Swallowing difficulty r/t dysphagia as evidenced by pt is Jtube dep, currently orally intubated, NPO. 2) Altered nutrition related lab values r/t respiratory failure, DM, ARF, sepsis as evidenced by COW >45*, elev pH 7.616*, elev K (7.2*), elev creat (8.8), elev BUN (178), elev BG (228), elev LA, elev wbc (22.2*) CURRENT TF:NPO ENTERAL NUTRITION RECOMMENDATIONS: Nepro @ 40ml/hr x 22 hrs to provide 880ml, 1584kcal, 71g prot, 640ml free water * Rec Nepro at this time given ARF, +hyperkalemia w/ creat 8.8. * When medically appropriate, initiate Nepro @ 20ml/hr x 6 hrs, advance 10ml q 4-6 hrs as tolerated to goal rate * Hold 1 hr before and after Synthroid med * HOB over 30 degrees/ water flush per MD ---- W/ improved renal fxn and normalized lytes, rec Glucerna 1.2 @ 60ml/hr x 22 hrs to provide 1320ml, 1584 kcal, 79g pro, 1063ml free H2O ADDITIONAL RECOMMENDATIONS: 1) Monitor lytes and renal fxn closely -> admitted w/ creat > 8.0, creat previous adm < 2.0 -> K critically elev, s/p kayexalate. 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
--- NOTE | 2019-11-15 13:00 | NUR ---
NURSE NOTES: LATE ENTRY; CALLED BLOOD BANK, WILL CALL BACK AGAIN.
--- NOTE | 2019-11-15 13:40 | NUR ---
NURSE NOTES: LATE ENTRY: MD. LINDSEY HERE TO SEE PT. INFORMED OF BUN/CRE 178, 8.8. NA 151, HOURLY OUT PUT RANGING 15-25 ML/HR. A FEBRILE. MAINTENANCE FLUID 1/2 NS AT 150ML/HR. DOPAMINE AT 6MCG/KG/MIN. REQUESTED TO SPEAK WITH FAMILY ABOUT CONSENT FOR H/D. CALLED PERSON TO CONTACT YOLI PALENCIA. Addendum: 11/15/19 at 1635 by Oriana Allan RN REQUESTED BAG OF TAP WATER TO RUN 50ML/HR. WILL ADMINISTER POST PLACEMENT CONFIRMATION
--- NOTE | 2019-11-15 14:00 | NUR ---
NURSE NOTES: LATE ENTRY: CALLED MD LUX REGARDING KAYEXALATE POWDER NGT AND PER RECTAL ROUTE. SPOKE WITH MD LYNCH. ADMINISTER PER GT ROUTE FOR KAYEXALATE FOR HYPERKALEMIA. WAS ALSO UPDATED ON FAMILY REQUEST FOR DNR/DNI, AND NO H.D.
[2019-11-15] MEDS ORDERED: Sodium Polystyrene Sulfonate 15gm Powder GT SCH (14:30)
--- NOTE | 2019-11-15 15:43 | NUR ---
NURSE NOTES: radiology here to take KUB for gt placement/ fxn. Family at bedside.
--- NOTE | 2019-11-15 15:59 | NUR ---
*-* INSURANCE *-* ALL CLINICALS AND REVIEWS HAVE BEEN FAXED TO: [employer] [facility] #[phone] fax# [phone]
--- NOTE | 2019-11-15 16:33 | NUR ---
NURSE NOTES: second call placed to blood bank. will call back later.
--- NOTE | 2019-11-15 16:55 | Diagnostic Imaging Report ---
Indication: Post gastrostomy placement Technique: Supine view of the abdomen after injection of water-soluble contrast into gastrostomy Comparison: 06/12/2019 Findings: Contrast opacifies the stomach. No contrast extravasation is demonstrated. The bowel gas pattern is unremarkable. Impression: Satisfactory position of gastrostomy tube
[2019-11-15] MEDS: Meropenem 500 MG in NS 55 ML IVPB SCH (17:16)
--- NOTE | 2019-11-15 17:51 | NUR ---
NURSE NOTES: transfusion obtained pretransfusion vs 98.5, hr 86, bp 102/57. 2 witness
--- NOTE | 2019-11-15 18:05 | NUR ---
NURSE NOTES: 09/07 units prbc transfusing. will monitor pt jackeline. vss.
--- NOTE | 2019-11-15 19:39 | NUR ---
HAND-OFF: Report given to MANI MUSTAFA R.N. ENDORSED FINISH OF 09/07 UNITS PRBC. ORDER FOR SCD'S
--- NOTE | 2019-11-15 19:40 | NUR ---
NURSE NOTES: Received report from FELY Allan. Pt is sleeping on the bed and obtunded. Pt has ETT#7.5 and Placed 24cm on the Rt. side lip line. Vent dependent setting with AC: 12, T: 400, P5, FiO2: 40% and SaO2 99% noted. Given endotracheal and oral suction. Still suctioned slight bloody secretion via ETT. Provided oral care. On NPO but running with free water @ 50cc/hr via G-tube and no residual noted. IV site intact and no sign of infiltration noted. Dressing is intact on Rt. femoral central line area. On running with 1/2NS @ 150cc/hr. On dopamine drip @ 4mcg/kg/min and BP is stable at this time. On running with PRBC 1unit blood transfusion. No sign of side effect of blood transfusion. On Barron cath and patent and yellowish urine urinated. No sign of seizure activity at this time. No sign of pain by FLACC scale at this time. Dressing is clean and dry on wound area. changed position. Keep P-200 mattress for wound management. Will continue to care plan and continue to monitor any change of condition.
--- NOTE | 2019-11-15 19:45 | Consultation ---
DATE OF CONSULTATION: 11/15/2019 INFECTIOUS DISEASE CONSULTATION CONSULTING PHYSICIAN: Tyrel Prieto M.D. REFERRING PHYSICIAN: Jeffrey Crowder M.D. REASON FOR CONSULTATION: Pneumonia. HISTORY OF PRESENT ILLNESS: This is an 79-year-old lady with history of stroke, chronic kidney disease, diabetes, and congestive heart failure, who was recently treated for an aspiration pneumonia and then subsequently her J-tube became clogged. She was transferred back to the hospital for a J-tube change. By then, she underwent cardiac arrest, had a seizure, and now she has been intubated. There is a concern for pneumonia and an Infectious Diseases consultation has been obtained for antibiotics. PAST MEDICAL HISTORY: 1. History of diabetes. 2. Congestive heart failure. 3. Stroke. 4. Chronic kidney disease. 5. Status post J-tube placement. SOCIAL HISTORY: No history of smoking, alcohol, or drug use. FAMILY HISTORY: Noncontributory. REVIEW OF SYSTEMS: Unable to obtain currently. MEDICATIONS: As an inpatient, she is on chlorhexidine gluconate, subcutaneous heparin, lidocaine, dopamine, insulin, Zosyn, levetiracetam, IV vancomycin, Protonix, Ativan, albuterol and ipratropium. ALLERGIES: No known drug allergies. PHYSICAL EXAMINATION: VITAL SIGNS: Temperature of 98.3, T-max of 98.7, pulse of 85, respiratory rate of 12, and blood pressure 90/47. O2 saturation of 99% HEENT: Pupils are equally reactive to light and accommodation. The patient is intubated. NECK: Supple. No adenopathy. No JVD. CARDIOVASCULAR: Regular rate and rhythm. No murmurs. LUNGS: Clear to auscultation bilaterally. No crackles. No wheezes. ABDOMEN: Soft and nontender. J-tube site appears clean. EXTREMITIES: No cyanosis, no clubbing, no edema. Right groin catheter noted. LABORATORY AND DIAGNOSTIC DATA: White count of 24.1 on 11/14/2019, white count of 22.2 on 11/15/2019, hemoglobin 7.3, hematocrit 22.1, MCV 86, platelet count of 156,000. Neutrophils of 84%. Sodium 151, potassium 7.2, chloride 93, bicarb 45, BUN 178, creatinine 8.8. Glucose of 228. Calcium of 8.8. AST 33, ALT 22, alkaline phosphatase 115. Total protein 8.2, albumin 2.8. UA is showing 30 to 40 white cells. Urine culture is pending. Sputum cultures are pending. Chest x-ray is showing interstitial densities within the lungs bilaterally. Ultrasound of legs showed no evidence of DVT bilaterally. ASSESSMENT: This is an 79-year-old lady with history of stroke, diabetes, congestive heart failure, and chronic kidney disease, who comes in and is found to have, 1. Likely aspiration pneumonia. 2. Diabetes. 3. Chronic kidney disease. 4. Congestive heart failure. 5. Shock. PLAN: 1. Discontinue vancomycin and Zosyn. 2. We will start the patient on linezolid and meropenem. 3. We will follow up cultures and adjust antibiotics accordingly. I would like to thank Dr. Crowder for this consultation. Tyrel Prieto M.D. DR: DIANE JOB#: [id number] CC:
[2019-11-15] MEDS ORDERED: Dyna-Hex 2% Top Sol 2oz TOPIC SCH (20:00)
[2019-11-15] MEDS: Dyna-Hex 2% Top Sol 2oz TOPIC SCH (20:02)
[2019-11-15 20:16] LABS: ALANINE AMINOTRANSFERASE 12 U/L (12-78); ALBUMIN 2.1 G/DL (3.4-5.0); ALBUMIN/GLOBULIN RATIO 0.4 (1.0-2.7); ALKALINE PHOSPHATASE 85 U/L (46-116); ANION GAP 14 mmol/L (5-15); ASPARTATE AMINO TRANSFERASE 19 U/L (15-37); BILIRUBIN,TOTAL 0.6 MG/DL (0.2-1.0); BLOOD UREA NITROGEN 135 mg/dL (7-18); CALCIUM 7.1 MG/DL (8.5-10.1); CARBON DIOXIDE 32 MMOL/L (21-32); CHLORIDE 93 MMOL/L (98-107); CREATININE 6.9 MG/DL (0.55-1.30); POTASSIUM 4.3 MMOL/L (3.5-5.1); SODIUM 139 MMOL/L (136-145)
--- NOTE | 2019-11-15 21:00 | NUR ---
NURSE NOTES: Pt is resting on the bed and no sign of acute distress noted. PRBC 1 unit blood transfusion finished without adverse reaction. Checked V/S BP:122/68, HR: 93, BT: 98.9F. Will continue to monitor any change of condition.
--- NOTE | 2019-11-15 21:15 | Consultation ---
DATE OF CONSULTATION: 11/15/2019 NEPHROLOGY CONSULTATION CONSULTING PHYSICIAN: Gwendolyn Moise M.D. REFERRING PHYSICIAN: Jeffrey Crowder M.D. REASON FOR CONSULTATION: Hyperkalemia, acute renal failure, and uremia. HISTORY OF PRESENT ILLNESS: The patient is an 79-year-old female known to me with many medical problems including history of mental retardation, seizure, history of hypertension, history of acute renal failure, history of chronic kidney disease, and history of hypothyroidism, who was brought into [facility] for altered mental status. The patient was intubated and admitted in ICU, found to have potassium more than 7, BUN was 178. I was called for management of renal disease and electrolyte imbalance. Upon arrival, the patient was unresponsive and intubated. Nurses at the bedside decided to speak to the family regarding the need for dialysis for hyperkalemia and severe uremia. I spoke in detail to the daughter regarding the patient's condition and comorbid condition and possibility of dialysis and other modalities for the treatment. At this point, the patient's daughter refused dialysis at this time. PAST MEDICAL HISTORY: Including history of dementia, history of hypertension, history of CHF, history of hypothyroidism, history of mental retardation, and history of PEG placement. MEDICATIONS: Reviewed. ALLERGIES: No known drug allergies. SOCIAL HISTORY: She lives at retirement. There is no history of tobacco, alcohol, or drug use. FAMILY HISTORY: Noncontributory. REVIEW OF SYSTEMS: Unable to obtain due to the patient's condition. PHYSICAL EXAMINATION: VITAL SIGNS: The patient has temperature of 98 degrees, blood pressure of 96/55, pulse rate of 88. HEAD AND NECK: Intubated. Extraocular movements are intact. Pupils are reactive to light and accommodation. LUNGS: Bilateral rhonchi. CARDIAC: Regular rate and rhythm. S1-S2. No murmur. No rub. ABDOMEN: Soft, nontender, and nondistended. EXTREMITIES: No edema. No clubbing. No cyanosis. LABORATORY DATA: The patient had WBC count of 22,000, hemoglobin of 7.3, hematocrit of 22, and platelet count of 156,000. Chemistry reveals sodium 151, potassium 7.2, chloride 93, bicarb 45, BUN 178, and creatinine of 8.8. Glucose of 223. AST of 33, ALT of 22. UA, which revealed specific gravity of 1.015, protein 3+, glucose 2+, blood 4+, wbc's of 30 to 40, rbc's of 5 to 10. ASSESSMENT: 1. Hyperkalemia. 2. Hypernatremia. 3. Acute renal failure. 4. Chronic kidney disease. 5. Hypotension. 6. Respiratory failure. PLAN: Plan is to start the patient on D5W at 70 mL/hour, free water flushes, and low potassium feedings. Based on the patient's family wish, we will hold the dialysis at this time. Gwendolyn Moise M.D. DR: ALFREDO JOB#: [id number] CC:
--- NOTE | 2019-11-15 22:00 | NUR ---
NURSE NOTES: Pt is sleeping on the bed and no sign of acute distress noted. Tolerated well with current Vent setting ans SaO2 100% noted. On running with Dopamine 4mcg/kg/min and BP is stable. Checked 100/55mmHg. Suction and oral care was done. Repositioned. Will continue to monitor any change of condition.
[2019-11-16] VITALS (29 sets, daily range): BP systolic 81–139; BP diastolic 39–79
--- NOTE | 2019-11-16 | NUR ---
NURSE NOTES: No sign of acute distress noted. V/S stable with dopamine drip as tartrated. Suction and oral care was done. No sign of pain by FLACC scale. Changed position. No sign of seizure. Placed fall and seizure precaution. Will continue to care plan.
[2019-11-16] MEDS: NovoLOG Insulin Flexpen SUBQ SCH ×4 (00:22→17:16)
--- NOTE | 2019-11-16 02:00 | NUR ---
NURSE NOTES: Pt is sleeping on the bed and V/S stable with dopamine drip @ 4mcg/kg/min. On running with free water @ 50cc/hr via G-tube and noted 15cc residual. Pt has Barron and drainage well. Repositioned. Given endotracheal and oral suction. Provided oral care. Will continue to monitor any change of condition.
--- NOTE | 2019-11-16 02:45 | Progress Note ---
DATE: 11/15/2019 CARDIOLOGY PROGRESS NOTE SUBJECTIVE: The patient in the intensive care unit. Condition remains critical. Prognosis guarded. The patient remains orally intubated, mechanically ventilated. She remains unresponsive. Abnormal laboratory studies have revealed acute renal failure and severe hyperkalemia. PHYSICAL EXAMINATION: VITAL SIGNS: Blood pressure 100/55, pulse 88, respirations 12, afebrile. Orally intubated. LUNGS: Bilateral breath sounds. Rhonchi. CARDIAC: Regular rhythm and rate. Normal S1, S2. ABDOMEN: Soft, slightly distended. No guarding. GJ tube intact. EXTREMITIES: 1+ edema. LABORATORY DATA: White count 22, hemoglobin 7.3. Sodium 155, potassium 7.2, bicarb 45, BUN 178, creatinine 8.8. Albumin 2.8. IMPRESSION: 1. Shock. 2. Sepsis. 3. Hypovolemia. 4. Dehydration. 5. Acute renal failure. 6. Acute myocardial ischemia. 7. Acute and chronic diastolic congestive heart failure. 8. Metabolic and toxic encephalopathies. 9. Critical and guarded. PLAN: Hypotonic IV fluids. Family members do not wish to proceed with dialysis, ventilator support. Pressors would taper as able. DVT prophylaxis. Kayexalate ordered. Kavon Peña M.D. DR: GOVIND JOB#: [id number] CC:
--- NOTE | 2019-11-16 04:00 | NUR ---
NURSE NOTES: Morning care was done. Noted BM. Cleaned Pt and applied lotion and cream. Rt. femoral central line dressing dislodged. Changed Dressing on Rt. femoral TLC area. Given suction and oral care. Keep dopamine drip BP control and BP is stable. Turn and repositioned. Placed fall and seizure precaution. Will continue to monitor any change of condition.
--- NOTE | 2019-11-16 06:00 | NUR ---
NURSE NOTES: No sign of acute distress noted. BP is stable with dopamine drip @ 4mcg/kg/hr. Tolerated well with current Vent setting. Repositioned. Given suction and oral care. Will continue to monitor any change of condition.
[2019-11-16 07:09] LABS: HEMATOCRIT 25.4 % (37.0-47.0); HEMOGLOBIN 8.6 G/DL (12.0-16.0); MEAN CORPUSCULAR VOLUME 85 FL (80-99); PLATELET COUNT 147 K/UL (150-450); RED BLOOD COUNT 2.99 M/UL (4.20-5.40); RED CELL DISTRIBUTION WIDTH 14.6 % (11.6-14.8)
[2019-11-16 07:11] LABS: WHITE BLOOD COUNT 23.4 K/UL (4.8-10.8)
[2019-11-16 07:14] LABS: ALANINE AMINOTRANSFERASE 8 U/L (12-78); ALBUMIN 1.8 G/DL (3.4-5.0); ALBUMIN/GLOBULIN RATIO 0.4 (1.0-2.7); ALKALINE PHOSPHATASE 84 U/L (46-116); ANION GAP 18 mmol/L (5-15); ASPARTATE AMINO TRANSFERASE 19 U/L (15-37); BILIRUBIN,TOTAL 0.6 MG/DL (0.2-1.0); BLOOD UREA NITROGEN 125 mg/dL (7-18); CALCIUM 6.8 MG/DL (8.5-10.1); CARBON DIOXIDE 26 MMOL/L (21-32); CHLORIDE 90 MMOL/L (98-107); CREATININE 6.3 MG/DL (0.55-1.30); POTASSIUM 3.9 MMOL/L (3.5-5.1); SODIUM 134 MMOL/L (136-145)
--- NOTE | 2019-11-16 07:41 | NUR ---
HAND-OFF: Report given to FELY Rice. Pt is sleeping on the bed and no sign of acute distress noted. Noted WBC; 23.4. Dr. paulino aware. No fever noted.
--- NOTE | 2019-11-16 08:00 | NUR ---
NURSE NOTES: Received change of shift report from Krystian GEIGER. Pt is obtunded, orally intubated, ETT 7.5 at 24cm lipline with vent settings AC12, VT400, Peep 5, FIO2 40% at 100% O2Sat and bilateral rhonchi. NSR on bus driver/monitor, HR 75 while on Dopamine drip at 4mcg/kg/min and IV fluid 0.45% NS infusing at 150ml/hour via right femoral TCL. Pt has GT currently with free water infusing at 50ml/hour. Abdomen is large, round, soft, nontender to touch with hypoactive bowel sounds. Barron catheter is present draining clear/yellow urine. Skin has sacral and buttocks pressure ulcer and bilateral heels DTI, covered with optifoam dressings. Pt is on P200 pressure releasing mattress with bilateral SCDs for DVT prophylaxis. HOB at 30degrees, bed locked, three side rails up, and call light within reach. Will continue with plan of care.
--- NOTE | 2019-11-16 08:18 | General Progress Note ---
Assessment/Plan Problem List: (1) Shock ICD Codes: R57.9 - Shock, unspecified SNOMED: 36052085 (2) Anemia due to acute blood loss ICD Codes: D62 - Acute posthemorrhagic anemia SNOMED: 708529423 (3) Hyperkalemia ICD Codes: E87.5 - Hyperkalemia SNOMED: 18969554 (4) Recurrent seizures ICD Codes: G40.909 - Epilepsy, unspecified, not intractable, without status epilepticus SNOMED: 63416031, 47778927 (5) Aspiration pneumonia ICD Codes: J69.0 - Pneumonitis due to inhalation of food and vomit SNOMED: 475626623 (6) ARF (acute renal failure) ICD Codes: N17.9 - Acute kidney failure, unspecified SNOMED: 47451857 (7) ATN (acute tubular necrosis) ICD Codes: N17.0 - Acute kidney failure with tubular necrosis SNOMED: 31891886 Status: stable Assessment/Plan: cont vent support resp care suctioning as needed iv abx pressors ivf monitor renal fxn monitor labs and cbc transfuse as needed critical and guarded grim prognosis Subjective ROS Limited/Unobtainable: Yes Constitutional: Reports: malaise, weakness HEENT: Reports: no symptoms Cardiovascular: Reports: edema Respiratory: Reports: cough, shortness of breath, sputum Gastrointestinal/Abdominal: Reports: difficulty swallowing Genitourinary: Reports: no symptoms Neurologic/Psychiatric: Reports: pre-existing deficit, seizure Endocrine: Reports: no symptoms Hematologic/Lymphatic: Reports: anemia Allergies: Coded Allergies: No Known Allergies (Verified , 12/31/09) All Systems: reviewed and negative except above Subjective still hypotensive on low dose dopamine. no fevers. GT replaced. K better. family declined HD. renal fxn and urine output improving. Objective Last 24 Hour Vital Signs Date Time Temp Pulse Resp B/P (MAP) Pulse Ox O2 Delivery O2 Flow Rate FiO2 11/16/19 07:23 104 15 40 11/16/19 07:00 89 18 115/52 (73) 97 11/16/19 07:00 115/57 11/16/19 06:30 86 13 11/16/19 06:00 105/50 11/16/19 06:00 87 18 105/50 (68) 100 11/16/19 05:00 96 13 115/70 (85) 98 11/16/19 05:00 115/70 11/16/19 04:52 85 15 40 11/16/19 04:00 40 11/16/19 04:00 119/50 11/16/19 04:00 88 11/16/19 04:00 98.0 87 13 119/50 (73) 98 11/16/19 04:00 Mechanical Ventilator 11/16/19 03:37 93 24 40 11/16/19 03:00 108/56 11/16/19 03:00 88 14 108/56 (73) 98 11/16/19 02:00 99/47 11/16/19 02:00 86 12 99/47 (64) 98 11/16/19 01:16 91 17 40 11/16/19 01:00 94 12 100/46 (64) 98 11/16/19 01:00 100/46 11/16/19 00:00 98.3 91 12 98/61 (73) 98 11/16/19 00:00 40 11/16/19 00:00 98/61 11/16/19 00:00 Mechanical Ventilator 11/16/19 00:00 82 11/15/19 23:37 95 15 40 11/15/19 23:00 94 12 100/66 (77) 100 11/15/19 23:00 100/66 11/15/19 22:00 100/55 11/15/19 22:00 88 12 100/55 (70) 100 11/15/19 21:09 95 12 40 11/15/19 21:00 122/68 11/15/19 21:00 93 12 122/68 (86) 100 11/15/19 20:00 40 11/15/19 20:00 111/61 11/15/19 20:00 98.3 93 12 111/61 (78) 100 11/15/19 20:00 Mechanical Ventilator 11/15/19 20:00 93 11/15/19 19:30 89 13 107/55 (72) 100 11/15/19 19:30 96 13 40 11/15/19 19:00 96 13 109/63 (78) 100 11/15/19 18:00 89 15 101/58 (72) 100 11/15/19 17:28 85 24 40 11/15/19 17:00 86 13 114/56 (75) 100 11/15/19 16:00 98.4 89 12 106/51 (69) 100 11/15/19 16:00 40 11/15/19 16:00 Mechanical Ventilator 11/15/19 16:00 90 11/15/19 15:47 89 12 40 11/15/19 15:17 97/52 11/15/19 15:00 85 12 97/52 (67) 98 11/15/19 14:00 87 12 99/54 (69) 98 11/15/19 13:29 87 12 40 11/15/19 13:00 86 12 98/55 (69) 98 11/15/19 12:00 Mechanical Ventilator 11/15/19 12:00 40 11/15/19 12:00 97.7 87 12 96/51 (66) 99 11/15/19 12:00 96/51 11/15/19 12:00 88 11/15/19 11:00 89 12 88/47 (61) 98 11/15/19 11:00 88/48 11/15/19 10:00 90 12 99/49 (66) 97 11/15/19 10:00 99/49 11/15/19 09:29 85 12 40 11/15/19 09:00 106/55 11/15/19 09:00 88 12 106/55 (72) 99 Intake and Output 11/15/19 11/16/19 19:00 07:00 Intake Total 2668.203 ml 3071.964 ml Output Total 235 ml 695 ml Balance 2433.203 ml 2376.964 ml Intake Free Water 600 ml IV Total 2668.203 ml 2221.964 ml Blood Product 250 ml Output Urine Total 235 ml 695 ml # Bowel Movements 2 2 Laboratory Tests 11/15/19 09:50: Lactic Acid Level 0.90 11/15/19 16:00: Urine Eosinophils None seen, Urine Random Creatinine [Pending], Urine Random Microalbumin [Pending], Urine Random Total Protein 128H, Urine Random Sodium 86 , Urine Creatinine 24.5L, Urine Microalbumin/Creatinine Ratio [Pending] 11/15/19 19:43: Sodium Level 139#, Potassium Level 4.3, Chloride Level 93L, Carbon Dioxide Level 32, Anion Gap 14, Blood Urea Nitrogen 135H, Creatinine 6.9H, Estimat Glomerular Filtration Rate 6.9, Glucose Level 221H, Calcium Level 7.1L, Total Bilirubin 0.6, Aspartate Amino Transf (AST/SGOT) 19, Alanine Aminotransferase ( ALT/SGPT) 12, Alkaline Phosphatase 85, Total Protein 7.1, Albumin 2.1L, Globulin 5.0, Albumin/Globulin Ratio 0.4L 11/16/19 06:25: Sodium Level 134L, Potassium Level 3.9, Chloride Level 90L, Carbon Dioxide Level 26, Anion Gap 18H, Blood Urea Nitrogen 125H, Creatinine 6.3H, Estimat Glomerular Filtration Rate 7.8, Glucose Level 259H, Calcium Level 6.8L, Total Bilirubin 0.6, Aspartate Amino Transf (AST/SGOT) 19, Alanine Aminotransferase ( ALT/SGPT) 8L, Alkaline Phosphatase 84, Total Protein 6.5, Albumin 1.8L, Globulin 4.7, Albumin/Globulin Ratio 0.4L, White Blood Count 23.4*H, Red Blood Count 2.99L, Hemoglobin 8.6L, Hematocrit 25.4L, Mean Corpuscular Volume 85, Mean Corpuscular Hemoglobin 28.6, Mean Corpuscular Hemoglobin Concent 33.7, Red Cell Distribution Width 14.6, Platelet Count 147L, Mean Platelet Volume 6.5, Neutrophils (%) (Auto) , Lymphocytes (%) (Auto) , Monocytes (%) (Auto) , Eosinophils (%) (Auto) , Basophils (%) (Auto) , Neutrophils % (Manual) [Pending] , Lymphocytes % (Manual) [Pending], Platelet Estimate [Pending], Platelet Morphology [Pending] Height (Feet): 5 Height (Inches): 3.00 Weight (Pounds): 174 General Appearance: WD/WN, lethargic Neck: normal alignment, supple, normal inspection Cardiovascular: normal rate, regular rhythm Respiratory/Chest: no respiratory distress, no accessory muscle use, rhonchi - bilaterally Abdomen: normal bowel sounds, non tender, soft, no organomegaly, no mass Extremities: normal range of motion, non-tender Neurologic: unresponsive, aphasia Jeffrey Crowder MD Nov 16, 2019 08:18
[2019-11-16] MEDS ORDERED: Lidocaine 1% Plain 30 ml INJ PRN (08:30)
[2019-11-16] MEDS ORDERED: Heparin1,000 units/500ml Premix(Conc:2 units/ml) IV PRN (08:31)
[2019-11-16] MEDS: levETIRAcetam 500mg/NS100ml 100 ML IVPB SCH ×2 (08:41→20:30)
[2019-11-16] MEDS: Pantoprazole Inj IVP SCH (08:42)
--- NOTE | 2019-11-16 10:00 | NUR ---
NURSE NOTES: AM meds were administered. Oral care was done. VS remain stable while pt is on Dopamine at 4mcg/kg/min. Pt was cleaned and repositioned.
[2019-11-16] MEDS: DOPamine 400mg/250ml 250 ML IV SCH ×2 (11:18→21:25)
--- NOTE | 2019-11-16 11:54 | Infectious Diseases Prog Note ---
Assessment/Plan Assessment/Plan antibiotics : linezolid, meropenem A 1. gram negative pneumonia 2. renal failure 3. diabetes mellitus 4. CHF 5. CVA 6. respiratory failure P 1. continue linezolid, meropenem 2. will follow up cultures Subjective ROS Limited/Unobtainable: Yes Allergies: Coded Allergies: No Known Allergies (Verified , 12/31/09) Objective Vital Signs Last 24 Hour Vital Signs Date Time Temp Pulse Resp B/P (MAP) Pulse Ox O2 Delivery O2 Flow Rate FiO2 11/16/19 11:28 101 24 40 11/16/19 11:18 96/57 11/16/19 09:25 83 14 40 11/16/19 08:00 Mechanical Ventilator 11/16/19 08:00 40 11/16/19 07:23 104 15 40 11/16/19 07:00 89 18 115/52 (73) 97 11/16/19 07:00 115/57 11/16/19 06:30 86 13 11/16/19 06:00 105/50 11/16/19 06:00 87 18 105/50 (68) 100 11/16/19 05:00 96 13 115/70 (85) 98 11/16/19 05:00 115/70 11/16/19 04:52 85 15 40 11/16/19 04:00 40 11/16/19 04:00 119/50 11/16/19 04:00 88 11/16/19 04:00 98.0 87 13 119/50 (73) 98 11/16/19 04:00 Mechanical Ventilator 11/16/19 03:37 93 24 40 11/16/19 03:00 108/56 11/16/19 03:00 88 14 108/56 (73) 98 11/16/19 02:00 99/47 11/16/19 02:00 86 12 99/47 (64) 98 11/16/19 01:16 91 17 40 11/16/19 01:00 94 12 100/46 (64) 98 11/16/19 01:00 100/46 11/16/19 00:00 98.3 91 12 98/61 (73) 98 11/16/19 00:00 40 11/16/19 00:00 98/61 11/16/19 00:00 Mechanical Ventilator 11/16/19 00:00 82 11/15/19 23:37 95 15 40 11/15/19 23:00 94 12 100/66 (77) 100 11/15/19 23:00 100/66 11/15/19 22:00 100/55 11/15/19 22:00 88 12 100/55 (70) 100 11/15/19 21:09 95 12 40 11/15/19 21:00 122/68 11/15/19 21:00 93 12 122/68 (86) 100 11/15/19 20:00 40 11/15/19 20:00 111/61 11/15/19 20:00 98.3 93 12 111/61 (78) 100 11/15/19 20:00 Mechanical Ventilator 11/15/19 20:00 93 11/15/19 19:30 89 13 107/55 (72) 100 11/15/19 19:30 96 13 40 11/15/19 19:00 96 13 109/63 (78) 100 11/15/19 18:00 89 15 101/58 (72) 100 11/15/19 17:28 85 24 40 11/15/19 17:00 86 13 114/56 (75) 100 11/15/19 16:00 98.4 89 12 106/51 (69) 100 11/15/19 16:00 40 11/15/19 16:00 Mechanical Ventilator 11/15/19 16:00 90 11/15/19 15:47 89 12 40 11/15/19 15:17 97/52 11/15/19 15:00 85 12 97/52 (67) 98 11/15/19 14:00 87 12 99/54 (69) 98 11/15/19 13:29 87 12 40 11/15/19 13:00 86 12 98/55 (69) 98 11/15/19 12:00 Mechanical Ventilator 11/15/19 12:00 40 11/15/19 12:00 97.7 87 12 96/51 (66) 99 11/15/19 12:00 96/51 11/15/19 12:00 88 Height (Feet): 5 Height (Inches): 3.00 Weight (Pounds): 174 HEENT: other - intubated Respiratory/Chest: lungs clear Cardiovascular: normal rate, regular rhythm, no gallop/murmur Abdomen: soft, non tender, other - GT Extremities: other - + edema, right groin catheter Microbiology Date/Time Source Procedure Growth Status 11/14/19 10:30 Blood Blood Culture - Preliminary NO GROWTH AFTER 24 HOURS Resulted 11/14/19 10:20 Blood Blood Culture - Preliminary NO GROWTH AFTER 24 HOURS Resulted 11/14/19 11:10 Nasal Nares MRSA Culture - Final Staphylococcus Aureus - Mrsa Complete 11/14/19 11:10 Sputum Induced Gram Stain - Final Resulted 11/14/19 11:10 Sputum Culture - Preliminary Gram Negative Bacillus 1 Resulted 11/14/19 00:00 Nasal Nares - Final Complete 11/14/19 00:00 Nasal Nares - Final Complete 11/14/19 11:10 Urine,Clean Catch Urine Culture - Preliminary Mixed Urogenital Contaminants Resulted Laboratory Tests Test 11/15/19 16:00 11/15/19 19:43 11/16/19 06:25 Urine Eosinophils None seen (NONE SEEN) Urine Random Creatinine Pending Urine Random Microalbumin Pending Urine Random Total Protein 128 MG/DL (< 11.9) H Urine Random Sodium 86 mmol/L (20-110) Urine Creatinine 24.5 MG/DL (30.0-125.0) L Urine Microalbumin/Creatinine Ratio Pending Sodium Level 139 MMOL/L (136-145) # 134 MMOL/L (136-145) L Potassium Level 4.3 MMOL/L (3.5-5.1) 3.9 MMOL/L (3.5-5.1) Chloride Level 93 MMOL/L (98-107) L 90 MMOL/L (98-107) L Carbon Dioxide Level 32 MMOL/L (21-32) 26 MMOL/L (21-32) Anion Gap 14 mmol/L (5-15) 18 mmol/L (5-15) H Blood Urea Nitrogen 135 mg/dL (7-18) H 125 mg/dL (7-18) H Creatinine 6.9 MG/DL (0.55-1.30) H 6.3 MG/DL (0.55-1.30) H Estimat Glomerular Filtration Rate 6.9 mL/min (>60) 7.8 mL/min (>60) Glucose Level 221 MG/DL (74-106) H 259 MG/DL (74-106) H Calcium Level 7.1 MG/DL (8.5-10.1) L 6.8 MG/DL (8.5-10.1) L Total Bilirubin 0.6 MG/DL (0.2-1.0) 0.6 MG/DL (0.2-1.0) Aspartate Amino Transf (AST/SGOT) 19 U/L (15-37) 19 U/L (15-37) Alanine Aminotransferase (ALT/SGPT) 12 U/L (12-78) 8 U/L (12-78) L Alkaline Phosphatase 85 U/L (46-116) 84 U/L (46-116) Total Protein 7.1 G/DL (6.4-8.2) 6.5 G/DL (6.4-8.2) Albumin 2.1 G/DL (3.4-5.0) L 1.8 G/DL (3.4-5.0) L Globulin 5.0 g/dL 4.7 g/dL Albumin/Globulin Ratio 0.4 (1.0-2.7) L 0.4 (1.0-2.7) L White Blood Count 23.4 K/UL (4.8-10.8) *H Red Blood Count 2.99 M/UL (4.20-5.40) L Hemoglobin 8.6 G/DL (12.0-16.0) L Hematocrit 25.4 % (37.0-47.0) L Mean Corpuscular Volume 85 FL (80-99) Mean Corpuscular Hemoglobin 28.6 PG (27.0-31.0) Mean Corpuscular Hemoglobin Concent 33.7 G/DL (32.0-36.0) Red Cell Distribution Width 14.6 % (11.6-14.8) Platelet Count 147 K/UL (150-450) L Mean Platelet Volume 6.5 FL (6.5-10.1) Neutrophils (%) (Auto) % (45.0-75.0) Lymphocytes (%) (Auto) % (20.0-45.0) Monocytes (%) (Auto) % (1.0-10.0) Eosinophils (%) (Auto) % (0.0-3.0) Basophils (%) (Auto) % (0.0-2.0) Differential Total Cells Counted 100 Neutrophils % (Manual) 89 % (45-75) H Lymphocytes % (Manual) 7 % (20-45) L Monocytes % (Manual) 2 % (1-10) Eosinophils % (Manual) 2 % (0-3) Basophils % (Manual) 0 % (0-2) Band Neutrophils 0 % (0-8) Platelet Estimate Decreased L Platelet Morphology Normal Hypochromasia 1+ Anisocytosis 1+ Current Medications Medications (Trade) Dose Ordered Sig/Aaron Route PRN Reason Start Time Stop Time Status Last Admin Dose Admin Albuterol/ Ipratropium (Albuterol/ Ipratropium) 3 ml Q4H PRN HHN Shortness of Breath 11/14/19 14:15 11/19/19 14:14 Chlorhexidine Gluconate (Arabella-Hex 2%) 1 applic DAILY@2000 TOPIC 11/15/19 20:00 12/15/19 19:59 11/15/19 20:02 Dextrose (Dextrose 50%) 25 ml Q30M PRN IV Hypoglycemia 11/14/19 19:00 12/14/19 18:59 Dextrose (Dextrose 50%) 50 ml Q30M PRN IV Hypoglycemia 11/14/19 19:00 12/14/19 18:59 Dopamine HCl/ Dextrose 250 ml @ 0 mls/hr Q24H IV 11/15/19 01:15 12/15/19 01:14 11/16/19 11:18 Heparin Sodium/ Sodium Chloride (Heparin 1000 units/500ml Premix) 1,000 unit ONCE PRN IV PICC 11/16/19 08:31 11/16/19 23:59 Insulin Aspart (NovoLOG) Q6HR SUBQ 11/15/19 00:00 12/14/19 20:59 11/16/19 06:11 Levetiracetam 100 ml @ 400 mls/hr Q12HR IVPB 11/14/19 15:00 12/14/19 14:59 11/16/19 08:41 Lidocaine HCl (Xylocaine 1% 30ml) 30 ml ONCE PRN INJ PICC 11/16/19 08:30 11/16/19 23:59 Linezolid 300 ml @ 300 mls/hr Q12H IVPB 11/15/19 15:00 11/22/19 14:59 11/16/19 02:43 Lorazepam (Ativan 2mg/ml 1ml) 2 mg Q1HR PRN IV For Seizures 11/14/19 14:15 11/21/19 14:14 Meropenem 500 mg/ Sodium Chloride 55 ml @ 110 mls/hr Q24H IVPB 11/15/19 17:00 11/20/19 16:59 11/15/19 17:16 Pantoprazole (Protonix) 40 mg DAILY IVP 11/14/19 14:15 12/14/19 14:14 11/16/19 08:42 Sodium Chloride 1,000 ml @ 150 mls/hr Q6H40M IV 11/15/19 00:00 12/15/19 00:00 11/16/19 08:43 Tyrel Prieto MD Nov 16, 2019 11:53
--- NOTE | 2019-11-16 12:00 | NUR ---
NURSE NOTES: Pt was seen by wound care nurse, wound dressings were changed. Pt had BM x1, soft/brown. Pt was cleaned, gown/bed linens were changed. Oral care was done. Pt was seen by Dr Crowder. No new orders were received at this time.
--- NOTE | 2019-11-16 14:00 | NUR ---
NURSE NOTES: Pt was repositioned. Dopamine drip was titrated up to 10mcg/kg/min to maintain SBP above 90.
--- NOTE | 2019-11-16 14:08 | NUR ---
*-* INSURANCE *-* ALL CLINICALS AND REVIEWS HAVE BEEN FAXED TO: [employer] #[phone] fax# [phone]
--- NOTE | 2019-11-16 15:23 | NUR ---
NURSE NOTES:WOUND CARE NOTES:Pt presented on admission with multiple pressure injuries.DTPI sacrum . Base of injury is indurated,purple with areas that are maroon in colour. An area of fluctuance noted at sacrococcygeal area. Borders are irregular (L)8.5cm x (W)9.3cm.Historical scar also noted within base of Sacral pressure injury. DTPI medial L heel. Base of injury fluctuant,maroon with surrounding non-blanching erythema. (L)1.7cm x (W)1.6cm. DTPI medial R heel. Base of injury is maroon and fluctuant(L)3.1cm x (W)2.5cm. Tx.Plan:Apply Moisture Barrier Paste to Sacrum. Cover with Optifoam drsg. Change every 3 days and prn. Apply Cavilon Skin Barrier to both heels. Cover each heel with Optifoam drsg. Change every 7 days and prn. APM/VALERIE Mattress. Reposition at least every 2 hours or as tolerated. Off-load heels with pillow.
--- NOTE | 2019-11-16 15:58 | NUR ---
SUPERINTENDENT CONSTRUCTION NOTE MARISELA did not receive a call back from pt's sister, Anastasiya Ugalde [phone]. MARISELA left another vm for call back. Signed: 11/16/19 at 1559 by ED ANTONIO <Co-Signature Required>
--- NOTE | 2019-11-16 16:30 | NUR ---
RADIOLOGY NOTE: LEFT UPPER EXTREMITY PICC PLACED.
[2019-11-16] MEDS: Meropenem 500 MG in NS 55 ML IVPB SCH (17:13)
--- NOTE | 2019-11-16 17:21 | Brief Operative Note ---
Immediate Post Operative Note Operative Note Chief Complaint: needs development technical lead IV access Procedure: PICC Post-op Diagnosis: same as pre-op Surgeon: Dat Munguia Anesthesia: local Specimen: none Complications: none Fluids: none Implant(s) used?: No Allen Munguia MD Nov 16, 2019 17:21
--- NOTE | 2019-11-16 17:30 | Diagnostic Imaging Report ---
Indications: Needs long-term IV access Technique: Procedure performed at bedside. Procedural timeout performed. Ultrasound confirms patent compressible left basilic vein. Total sterile technique, including sterile probe cover and sterile gel, sterile gloves, hand hygiene, hat, mask,, sterile gown, large sterile drape, and preparation with 2% chlorhexidine utilized. Local anesthesia with 1% lidocaine. Under real-time ultrasound guidance, puncture of the vein using 21-gauge needle, passage 0.018 guidewire, exchange for 4 Nigerian peel-away sheath. 4 Nigerian Bard dual-lumen power PICC cut to 47 cm. It was inserted through the peel-away sheath. Peel-away sheath and guidewire removed. Catheter fixed to the skin. Both catheter ports aspirated and flushed. Patient tolerated procedure well, without immediate complication. Followup chest x-ray obtained, documents catheter tip position at the high right atrium Impression: Successful bedside placement of left arm PICC under sonographic guidance, as described above.
--- NOTE | 2019-11-16 18:00 | NUR ---
NURSE NOTES: Dopamine drip is maintained at 10mcg/kg/min to keep SBP above 90. VS currently stable. Pt was cleaned and repositioned.
--- NOTE | 2019-11-16 18:46 | Pulmonolgy Critical Care Note ---
Critical Care - Asmt/Plan Assessment/Plan: Pulmonary CCM Progress Note Assessment/Plan Respiratory failure, acute on chronic. Alkalemia due to hyperventilation, chronic metabolic alkalosis, chronic respiratory acidosis, leukocytosis, possible sepsis, anemia, hyponatremia, hyperkalemia, chronic renal failure, severe protein-calorie malnutrition. PLAN care noted IV antibiotics respiratory care Ventilatory support meds noted SNF meds supportive care suction no wean for now oxygen therapy prognosis guarded medications/laboratory data/nursing notes/ICU care reviewed in detail note reviewed and edited care discussed with RN and RT ICU time spent >40 minutes Critical Care - Subjective Interval Events: ICU care reviewed on vent ABG improved reduced LOC lines reviewed ROS Limited/Unobtainable: Yes Condition: critical EKG Rhythm: Sinus Rhythm Critical Care - Objective ET-Tube: 7.5 ET Position: 24 Vital Signs Noted Labs noted Objective: WDWN ETT in place reduced LOC reduced breath sounds bilaterally without rhonchi or wheeze [id number] without MRG NABS nontender no HSM; no distention no CCE nonfocal Micro: Microbiology Date/Time Source Procedure Growth Status 11/14/19 11:10 Sputum Induced Gram Stain - Final Resulted 11/14/19 11:10 Sputum Induced Sputum Culture Pending Resulted 11/14/19 00:00 Nasal Nares - Final Complete 11/14/19 00:00 Nasal Nares - Final Complete 11/14/19 11:10 Urine,Clean Catch Urine Culture - Preliminary Resulted Critical Care - Objective Last 24 Hour Vital Signs Date Time Temp Pulse Resp B/P (MAP) Pulse Ox O2 Delivery O2 Flow Rate FiO2 11/16/19 18:00 99 18 138/77 (97) 100 11/16/19 17:17 94 20 60 11/16/19 17:00 100 18 106/54 (71) 100 11/16/19 16:00 96 11/16/19 16:00 95 18 110/60 (77) 100 11/16/19 15:20 108 17 40 11/16/19 15:00 100 18 115/73 (87) 96 11/16/19 14:00 98 18 112/59 (76) 96 11/16/19 13:00 86 15 81/39 (53) 95 11/16/19 12:44 110 15 40 11/16/19 12:00 Mechanical Ventilator 11/16/19 12:00 95 11/16/19 12:00 99.0 94 17 97/79 (85) 96 11/16/19 12:00 40 11/16/19 11:28 101 24 40 11/16/19 11:18 96/57 11/16/19 11:00 90 15 96/57 (70) 96 11/16/19 10:00 93 15 98/54 (69) 96 11/16/19 09:25 83 14 40 11/16/19 09:00 89 12 103/57 (72) 96 11/16/19 08:00 99.0 94 15 102/51 (68) 97 11/16/19 08:00 90 11/16/19 08:00 Mechanical Ventilator 11/16/19 08:00 40 11/16/19 07:23 104 15 40 11/16/19 07:00 89 18 115/52 (73) 97 11/16/19 07:00 115/57 11/16/19 06:30 86 13 11/16/19 06:00 105/50 11/16/19 06:00 87 18 105/50 (68) 100 11/16/19 05:00 96 13 115/70 (85) 98 11/16/19 05:00 115/70 11/16/19 04:52 85 15 40 11/16/19 04:00 40 11/16/19 04:00 119/50 11/16/19 04:00 88 11/16/19 04:00 98.0 87 13 119/50 (73) 98 11/16/19 04:00 Mechanical Ventilator 11/16/19 03:37 93 24 40 11/16/19 03:00 108/56 11/16/19 03:00 88 14 108/56 (73) 98 11/16/19 02:00 99/47 11/16/19 02:00 86 12 99/47 (64) 98 11/16/19 01:16 91 17 40 11/16/19 01:00 94 12 100/46 (64) 98 11/16/19 01:00 100/46 11/16/19 00:00 98.3 91 12 98/61 (73) 98 11/16/19 00:00 40 11/16/19 00:00 98/61 11/16/19 00:00 Mechanical Ventilator 11/16/19 00:00 82 11/15/19 23:37 95 15 40 11/15/19 23:00 94 12 100/66 (77) 100 11/15/19 23:00 100/66 11/15/19 22:00 100/55 11/15/19 22:00 88 12 100/55 (70) 100 11/15/19 21:09 95 12 40 11/15/19 21:00 122/68 11/15/19 21:00 93 12 122/68 (86) 100 11/15/19 20:00 40 11/15/19 20:00 111/61 11/15/19 20:00 98.3 93 12 111/61 (78) 100 11/15/19 20:00 Mechanical Ventilator 11/15/19 20:00 93 11/15/19 19:30 89 13 107/55 (72) 100 11/15/19 19:30 96 13 40 11/15/19 19:00 96 13 109/63 (78) 100 Micro: Microbiology Date/Time Source Procedure Growth Status 11/14/19 10:30 Blood Blood Culture - Preliminary NO GROWTH AFTER 24 HOURS Resulted 11/14/19 10:20 Blood Blood Culture - Preliminary NO GROWTH AFTER 24 HOURS Resulted 11/14/19 11:10 Nasal Nares MRSA Culture - Final Staphylococcus Aureus - Mrsa Complete 11/14/19 11:10 Sputum Induced Gram Stain - Final Resulted 11/14/19 11:10 Sputum Culture - Preliminary Gram Negative Bacillus 1 Resulted 11/14/19 00:00 Nasal Nares - Final Complete 11/14/19 00:00 Nasal Nares - Final Complete 11/14/19 11:10 Urine,Clean Catch Urine Culture - Preliminary Mixed Urogenital Contaminants Resulted Accucheck: 212 Critical Care - Subjective ROS Limited/Unobtainable: No FI02: 60 Vent Support Breath Rate: 12 Vent Support Mode: AC Vent Tidal Volume: 350 Sputum Amount: Moderate PEEP: 5.0 PIP: 29 I&O: Intake and Output 11/15/19 11/16/19 19:00 07:00 Intake Total 2668.203 ml 3071.964 ml Output Total 235 ml 695 ml Balance 2433.203 ml 2376.964 ml Intake Free Water 600 ml IV Total 2668.203 ml 2221.964 ml Blood Product 250 ml Output Urine Total 235 ml 695 ml # Bowel Movements 2 2 ET-Tube: 7.5 ET Position: 24 Kavon Seals MD Nov 16, 2019 18:46
--- NOTE | 2019-11-16 19:30 | NUR ---
HAND-OFF: Report given to Nicki GEIGER. Endorsed plan of care.
--- NOTE | 2019-11-16 20:00 | NUR ---
NURSE NOTES: Received pt obtunded, orally intubated on ac mode, On Dopamine drip at 8mcg/kg/min to keep sbp>90' SR on the monitor. Afebrile. Will continue to monitor.
[2019-11-16] MEDS: Dyna-Hex 2% Top Sol 2oz TOPIC SCH (20:27)
--- NOTE | 2019-11-16 20:27 | NUR ---
NURSE NOTES: Pt was restless. Ativan 2mg ivp was given.
--- NOTE | 2019-11-16 22:00 | NUR ---
NURSE NOTES: Resting well at this time. No distress noted.
[2019-11-17] VITALS (43 sets, daily range): BP systolic 95–136; BP diastolic 50–78
--- NOTE | 2019-11-17 | NUR ---
NURSE NOTES: Suctioned tk whitish secretions lg in amt. 02 sat>92%.
[2019-11-17] MEDS: NovoLOG Insulin Flexpen SUBQ SCH ×4 (01:12→17:17)
--- NOTE | 2019-11-17 02:00 | NUR ---
NURSE NOTES: Repositioned for comfort.
--- NOTE | 2019-11-17 04:00 | NUR ---
NURSE NOTES: Febrile 102F- cooling measures started.
--- NOTE | 2019-11-17 04:00 | Progress Note ---
DATE: 11/16/2019 CARDIOLOGY PROGRESS NOTE SUBJECTIVE: Condition remains critical. Prognosis is guarded. The patient remains in the intensive care unit. Pressor support still required. G-tube replaced. Potassium correction is in progress. Family declined dialysis, which is appropriate based on her overall debility and prognosis. PHYSICAL EXAMINATION: VITAL SIGNS: Blood pressure 115/52, heart rate 89, and respiratory rate 18. HEENT: On ventilator support via endotracheal tube. LUNGS: Bilateral breath sounds and rhonchi. CARDIAC: Regular rhythm and rate. Normal S1 and S2. ABDOMEN: Soft. GJ tube intact. EXTREMITIES: No edema. LABORATORY DATA: White count 23 and hemoglobin 8.6. Sodium 134, potassium 3.9, bicarb 26, BUN 125, and creatinine 6.3. Albumin 1.8. ABG - 7.45, 35, and 58. IMPRESSION: 1. Sepsis. 2. Shock. 3. Anemia. 4. Toxic and metabolic encephalopathies with hyperkalemia, corrected. 5. Acute renal failure. 6. Severe protein-calorie malnutrition. 7. Acute myocardial ischemia. 8. Resolved lactic acidosis. PLAN: 1. Wean off pressors as able. 2. Antimicrobials. 3. Volume resuscitation. 4. May consider maintaining renal dose dopamine for additional period. 5. DNR. 6. Continue ICU care. Kavon Peña M.D. DR: KEN JOB#: [id number] CC:
[2019-11-17 04:42] LABS: ALANINE AMINOTRANSFERASE 14 U/L (12-78); ALBUMIN 1.5 G/DL (3.4-5.0); ALBUMIN/GLOBULIN RATIO 0.3 (1.0-2.7); ALKALINE PHOSPHATASE 87 U/L (46-116); ANION GAP 17 mmol/L (5-15); ASPARTATE AMINO TRANSFERASE 12 U/L (15-37); BILIRUBIN,TOTAL 0.4 MG/DL (0.2-1.0); BLOOD UREA NITROGEN 110 mg/dL (7-18); CALCIUM 6.6 MG/DL (8.5-10.1); CARBON DIOXIDE 24 MMOL/L (21-32); CHLORIDE 88 MMOL/L (98-107); CREATININE 6.5 MG/DL (0.55-1.30); POTASSIUM 3.4 MMOL/L (3.5-5.1); SODIUM 129 MMOL/L (136-145)
--- NOTE | 2019-11-17 06:00 | NUR ---
NURSE NOTES: Dr paulino was at bedside and was aware with pts condition.
--- NOTE | 2019-11-17 06:00 | NUR ---
NURSE NOTES: Dopamine at 6mcg/min. SBP>90
--- NOTE | 2019-11-17 07:14 | NUR ---
RESPIRATORY NOTE: Received pt on ETT size 7.5@24cm lip line, secured by anchor fast. Pt is obtunded, pt is on vent settings: AC 12- 350ml- 60%- peep 5. No SOB or resp distress noted. Titrated FiO2 down to 50%, still saturates at 100%. Will continue to monitor pt.
--- NOTE | 2019-11-17 07:15 | NUR ---
NURSE NOTES: Received report from FELY Caceres. Patient asleep. Noted with ETT 7.5/24cm with vent setting AC 12, VT 350, Peep 5 and FiO2 60%. O2 sat 100% on the monitor. Gtube intact and clamped, NPO status. Left upper arm PICC line intact and clean. Running with Dopamine 6mcg/kg/min. HR 91 on the monitor. kept dry, clean and comfortable. On aspiration precaution and seizure precaution. Will continue plan of care.
--- NOTE | 2019-11-17 07:25 | NUR ---
NURSE NOTES: Seen Dr. Crowder and assessed patient. Updated pt's condition, K = 3.4 today. Tylenol 650mg is ordered.
--- NOTE | 2019-11-17 08:09 | NUR ---
HAND-OFF: Report given to Claudy Jacinto.
[2019-11-17] MEDS: DOPamine 400mg/250ml 250 ML IV SCH ×2 (08:17→21:53)
[2019-11-17] MEDS: Pantoprazole Inj IVP SCH (08:17)
[2019-11-17] MEDS: Acetaminophen 650mg/20.3ml GT PRN (08:17)
[2019-11-17] MEDS: levETIRAcetam 500mg/NS100ml 100 ML IVPB SCH ×2 (08:19→21:20)
--- NOTE | 2019-11-17 08:35 | NUR ---
NURSE NOTES: All due medication given as ordered. Repositioned patient. Provided oral care.
--- NOTE | 2019-11-17 08:48 | Critical Care Progress Note ---
Assessment/Plan Assessment/Plan Respiratory failure, acute on chronic. Alkalemia due to hyperventilation, chronic metabolic alkalosis, chronic respiratory acidosis, leukocytosis, sepsis, anemia, hyponatremia, hyperkalemia, chronic renal failure, severe protein-calorie malnutrition. hyponatremia PLAN hypotonic fluids per renal ??? dc and reduce rate care noted and reviewed IV antibiotics- cultures noted respiratory care reviewed Ventilatory support and wean meds noted SNF meds supportive care suction try to remove support from vent oxygen therapy and titrate prognosis guarded medications/laboratory data/nursing notes/ICU care reviewed in detail note reviewed and edited care discussed with RN and RT ICU time spent >40 minutes Critical Care - Subjective Interval Events: care noted vent settings reviewed in ICU 48 hour events reviewed ROS Limited/Unobtainable: Yes Condition: critical EKG Rhythm: Sinus Rhythm Residuals: minimal Tube Feeding Tolerated: yes I&O: Intake and Output 11/16/19 11/17/19 19:00 07:00 Intake Total 1948.819 ml 2276.571 ml Output Total 445 ml 525 ml Balance 1503.819 ml 1751.571 ml Intake Free Water 600 ml IV Total 1348.819 ml 2276.571 ml Output Urine Total 445 ml 525 ml # Bowel Movements 4 3 Critical Care - Objective ET-Tube: 7.5 ET Position: 24 Last 24 Hour Vital Signs Date Time Temp Pulse Resp B/P (MAP) Pulse Ox O2 Delivery O2 Flow Rate FiO2 11/17/19 08:17 114/55 11/17/19 07:41 93 22 50 11/17/19 06:30 100 22 119/56 (77) 100 11/17/19 06:00 99.4 102 21 101/50 (67) 100 11/17/19 06:00 94 13 11/17/19 05:30 105 24 110/55 (73) 100 11/17/19 05:15 117 23 60 11/17/19 05:00 101.0 102 21 101/50 (67) 100 11/17/19 04:30 103 22 136/78 (97) 100 11/17/19 04:00 94 11/17/19 04:00 102.0 102 21 101/50 (67) 100 11/17/19 04:00 Mechanical Ventilator 11/17/19 04:00 60 11/17/19 03:30 103 22 100 11/17/19 03:06 104 24 60 11/17/19 03:00 102 21 101/50 (67) 100 11/17/19 02:30 103 23 101/60 (74) 100 11/17/19 02:00 104 24 101/61 (74) 100 11/17/19 01:30 103 23 108/56 (73) 100 11/17/19 01:00 102 24 120/59 (79) 100 11/17/19 01:00 100 24 60 11/17/19 00:30 103 24 120/59 (79) 100 11/17/19 00:00 98.6 100 27 120/57 (78) 97 11/17/19 00:00 60 11/17/19 00:00 Mechanical Ventilator 11/16/19 23:30 96 24 60 11/16/19 23:30 100 21 118/67 (84) 100 11/16/19 23:00 101 22 138/70 (92) 100 11/16/19 22:30 101 18 121/66 (84) 100 11/16/19 22:00 101 24 116/56 (76) 100 11/16/19 21:30 99 28 60 11/16/19 21:30 99 18 100/60 (73) 100 11/16/19 21:25 116/68 11/16/19 21:00 101 23 138/70 (92) 96 11/16/19 20:30 100 24 138/70 (92) 97 11/16/19 20:00 Mechanical Ventilator 11/16/19 20:00 98 11/16/19 20:00 98.8 101 29 127/60 (82) 100 11/16/19 20:00 60 11/16/19 19:30 98 18 60 11/16/19 19:30 102 27 139/70 (93) 100 11/16/19 19:00 138/70 11/16/19 19:00 104 18 138/70 (92) 100 11/16/19 18:00 99 18 138/77 (97) 100 11/16/19 18:00 138/77 11/16/19 17:17 94 20 60 11/16/19 17:00 106/54 11/16/19 17:00 100 18 106/54 (71) 100 11/16/19 16:00 96 3/11/20 16:00 110/60 11/16/19 16:00 Mechanical Ventilator 11/16/19 16:00 95 18 110/60 (77) 100 11/16/19 16:00 40 11/16/19 15:20 108 17 40 11/16/19 15:00 119/71 11/16/19 15:00 100 18 115/73 (87) 96 11/16/19 14:00 119/70 11/16/19 14:00 98 18 112/59 (76) 96 11/16/19 13:00 81/39 11/16/19 13:00 86 15 81/39 (53) 95 11/16/19 12:44 110 15 40 11/16/19 12:00 93/53 11/16/19 12:00 Mechanical Ventilator 11/16/19 12:00 95 11/16/19 12:00 99.0 94 17 97/79 (85) 96 11/16/19 12:00 40 11/16/19 11:28 101 24 40 11/16/19 11:18 96/57 11/16/19 11:00 96/57 11/16/19 11:00 90 15 96/57 (70) 96 11/16/19 10:00 93 15 98/54 (69) 96 11/16/19 10:00 98/54 11/16/19 09:25 83 14 40 11/16/19 09:00 89 12 103/57 (72) 96 11/16/19 09:00 103/57 Labs: Labs Test 11/14/19 10:20 11/14/19 11:10 11/14/19 12:00 11/14/19 12:40 White Blood Count 24.2 K/UL (4.8-10.8) Red Blood Count 3.43 M/UL (4.20-5.40) Hemoglobin 9.7 G/DL (12.0-16.0) Hematocrit 30.4 % (37.0-47.0) Mean Corpuscular Volume 89 FL (80-99) Mean Corpuscular Hemoglobin 28.2 PG (27.0-31.0) Mean Corpuscular Hemoglobin Concent 31.8 G/DL (32.0-36.0) Red Cell Distribution Width 15.1 % (11.6-14.8) Platelet Count 231 K/UL (150-450) Mean Platelet Volume 6.6 FL (6.5-10.1) Neutrophils (%) (Auto) % (45.0-75.0) Lymphocytes (%) (Auto) % (20.0-45.0) Monocytes (%) (Auto) % (1.0-10.0) Eosinophils (%) (Auto) % (0.0-3.0) Basophils (%) (Auto) % (0.0-2.0) Differential Total Cells Counted 100 Neutrophils % (Manual) 82 % (45-75) Lymphocytes % (Manual) 8 % (20-45) Monocytes % (Manual) 10 % (1-10) Eosinophils % (Manual) 0 % (0-3) Basophils % (Manual) 0 % (0-2) Band Neutrophils 0 % (0-8) Platelet Estimate Adequate Platelet Morphology Normal Anisocytosis 1+ Prothrombin Time 10.4 SEC (9.30-11.50) Prothromb Time International Ratio 1.0 (0.9-1.1) Activated Partial Thromboplast Time 27 SEC (23-33) Sodium Level 150 MMOL/L (136-145) Potassium Level 5.9 MMOL/L (3.5-5.1) Chloride Level 92 MMOL/L (98-107) Carbon Dioxide Level > 45 MMOL/L (21-32) Blood Urea Nitrogen 186 mg/dL (7-18) Creatinine 8.8 MG/DL (0.55-1.30) Estimat Glomerular Filtration Rate 5.2 mL/min (>60) Glucose Level 287 MG/DL (74-106) Lactic Acid Level 3.70 mmol/L (0.4-2.0) 3.20 mmol/L (0.66-2.22) Calcium Level 9.5 MG/DL (8.5-10.1) Magnesium Level 5.6 MG/DL (1.8-2.4) Total Bilirubin 0.4 MG/DL (0.2-1.0) Aspartate Amino Transf (AST/SGOT) 25 U/L (15-37) Alanine Aminotransferase (ALT/SGPT) 21 U/L (12-78) Alkaline Phosphatase 109 U/L (46-116) Total Creatine Kinase 122 U/L (26-308) Creatine Kinase MB < 0.5 NG/ML (0.0-3.6) Creatine Kinase MB Relative Index 0.4 Troponin I 0.080 ng/mL (0.000-0.056) Total Protein 8.9 G/DL (6.4-8.2) Albumin 2.6 G/DL (3.4-5.0) Globulin 6.3 g/dL Albumin/Globulin Ratio 0.4 (1.0-2.7) Urine Color Pale yellow Urine Appearance Slightly cloudy Urine pH 8 (4.5-8.0) Urine Specific Bowie 1.015 (1.005-1.035) Urine Protein 3+ (NEGATIVE) Urine Glucose (UA) 2+ (NEGATIVE) Urine Ketones Negative (NEGATIVE) Urine Blood 4+ (NEGATIVE) Urine Nitrite Negative (NEGATIVE) Urine Bilirubin 1+ (NEGATIVE) Urine Ictotest Negative (NEGATIVE) Urine Urobilinogen Normal MG/DL (0.0-1.0) Urine Leukocyte Esterase 3+ (NEGATIVE) Urine RBC 5-10 /HPF (0 - 2) Urine WBC 30-40 /HPF (0 - 2) Urine Squamous Epithelial Cells Moderate /LPF (NONE/OCC) Urine Amorphous Sediment Few /LPF (NONE) Urine Bacteria Moderate /HPF (NONE) Urine Mucus Few /LPF (NONE/OCC) Urine Yeast Few /HPF (NONE) Arterial Blood pH 7.686 (7.350-7.450) Arterial Blood Partial Pressure CO2 36.9 mmHg (35.0-45.0) Arterial Blood Partial Pressure O2 284.7 mmHg (75.0-100.0) Arterial Blood HCO3 43.2 mmol/L (22.0-26.0) Arterial Blood Oxygen Saturation 99.2 % (95-100) Arterial Blood Base Excess 21.2 (-2-2) Danilo Test Positive Test 11/14/19 18:06 11/14/19 20:40 11/14/19 23:50 11/15/19 04:40 Arterial Blood pH 7.736 (7.350-7.450) 7.616 (7.350-7.450) Arterial Blood Partial Pressure CO2 29.0 mmHg (35.0-45.0) 39.9 mmHg (35.0-45.0) Arterial Blood Partial Pressure O2 275.7 mmHg (75.0-100.0) 111.8 mmHg (75.0-100.0) Arterial Blood HCO3 38.1 mmol/L (22.0-26.0) 39.7 mmol/L (22.0-26.0) Arterial Blood Oxygen Saturation 99.1 % (95-100) 97.5 % (95-100) Arterial Blood Base Excess 17.4 (-2-2) 16.9 (-2-2) Danilo Test Positive Positive Lactic Acid Level 2.70 mmol/L (0.4-2.0) 2.60 mmol/L (0.66-2.22) White Blood Count 22.2 K/UL (4.8-10.8) Red Blood Count 2.57 M/UL (4.20-5.40) Hemoglobin 7.3 G/DL (12.0-16.0) Hematocrit 22.1 % (37.0-47.0) Mean Corpuscular Volume 86 FL (80-99) Mean Corpuscular Hemoglobin 28.3 PG (27.0-31.0) Mean Corpuscular Hemoglobin Concent 32.9 G/DL (32.0-36.0) Red Cell Distribution Width 14.9 % (11.6-14.8) Platelet Count 156 K/UL (150-450) Mean Platelet Volume 6.5 FL (6.5-10.1) Neutrophils (%) (Auto) % (45.0-75.0) Lymphocytes (%) (Auto) % (20.0-45.0) Monocytes (%) (Auto) % (1.0-10.0) Eosinophils (%) (Auto) % (0.0-3.0) Basophils (%) (Auto) % (0.0-2.0) Differential Total Cells Counted 100 Neutrophils % (Manual) 84 % (45-75) Lymphocytes % (Manual) 9 % (20-45) Monocytes % (Manual) 7 % (1-10) Eosinophils % (Manual) 0 % (0-3) Basophils % (Manual) 0 % (0-2) Band Neutrophils 0 % (0-8) Platelet Estimate Adequate Platelet Morphology Normal Hypochromasia 3+ Anisocytosis 1+ Sodium Level 151 MMOL/L (136-145) Potassium Level 7.2 MMOL/L (3.5-5.1) Chloride Level 93 MMOL/L (98-107) Carbon Dioxide Level > 45 MMOL/L (21-32) Blood Urea Nitrogen 178 mg/dL (7-18) Creatinine 8.8 MG/DL (0.55-1.30) Estimat Glomerular Filtration Rate 5.2 mL/min (>60) Glucose Level 228 MG/DL (74-106) Calcium Level 8.8 MG/DL (8.5-10.1) Total Bilirubin 0.4 MG/DL (0.2-1.0) Aspartate Amino Transf (AST/SGOT) 33 U/L (15-37) Alanine Aminotransferase (ALT/SGPT) 22 U/L (12-78) Alkaline Phosphatase 115 U/L (46-116) Total Protein 8.2 G/DL (6.4-8.2) Albumin 2.8 G/DL (3.4-5.0) Globulin 5.4 g/dL Albumin/Globulin Ratio 0.5 (1.0-2.7) Test 11/15/19 09:50 11/15/19 16:00 11/15/19 19:43 11/16/19 06:25 Lactic Acid Level 0.90 mmol/L (0.4-2.0) Urine Eosinophils None seen (NONE SEEN) Urine Random Total Protein 128 MG/DL (< 11.9) Urine Random Sodium 86 mmol/L (20-110) Urine Creatinine 24.5 MG/DL (30.0-125.0) Sodium Level 139 MMOL/L (136-145) 134 MMOL/L (136-145) Potassium Level 4.3 MMOL/L (3.5-5.1) 3.9 MMOL/L (3.5-5.1) Chloride Level 93 MMOL/L (98-107) 90 MMOL/L (98-107) Carbon Dioxide Level 32 MMOL/L (21-32) 26 MMOL/L (21-32) Anion Gap 14 mmol/L (5-15) 18 mmol/L (5-15) Blood Urea Nitrogen 135 mg/dL (7-18) 125 mg/dL (7-18) Creatinine 6.9 MG/DL (0.55-1.30) 6.3 MG/DL (0.55-1.30) Estimat Glomerular Filtration Rate 6.9 mL/min (>60) 7.8 mL/min (>60) Glucose Level 221 MG/DL (74-106) 259 MG/DL (74-106) Calcium Level 7.1 MG/DL (8.5-10.1) 6.8 MG/DL (8.5-10.1) Total Bilirubin 0.6 MG/DL (0.2-1.0) 0.6 MG/DL (0.2-1.0) Aspartate Amino Transf (AST/SGOT) 19 U/L (15-37) 19 U/L (15-37) Alanine Aminotransferase (ALT/SGPT) 12 U/L (12-78) 8 U/L (12-78) Alkaline Phosphatase 85 U/L (46-116) 84 U/L (46-116) Total Protein 7.1 G/DL (6.4-8.2) 6.5 G/DL (6.4-8.2) Albumin 2.1 G/DL (3.4-5.0) 1.8 G/DL (3.4-5.0) Globulin 5.0 g/dL 4.7 g/dL Albumin/Globulin Ratio 0.4 (1.0-2.7) 0.4 (1.0-2.7) White Blood Count 23.4 K/UL (4.8-10.8) Red Blood Count 2.99 M/UL (4.20-5.40) Hemoglobin 8.6 G/DL (12.0-16.0) Hematocrit 25.4 % (37.0-47.0) Mean Corpuscular Volume 85 FL (80-99) Mean Corpuscular Hemoglobin 28.6 PG (27.0-31.0) Mean Corpuscular Hemoglobin Concent 33.7 G/DL (32.0-36.0) Red Cell Distribution Width 14.6 % (11.6-14.8) Platelet Count 147 K/UL (150-450) Mean Platelet Volume 6.5 FL (6.5-10.1) Neutrophils (%) (Auto) % (45.0-75.0) Lymphocytes (%) (Auto) % (20.0-45.0) Monocytes (%) (Auto) % (1.0-10.0) Eosinophils (%) (Auto) % (0.0-3.0) Basophils (%) (Auto) % (0.0-2.0) Differential Total Cells Counted 100 Neutrophils % (Manual) 89 % (45-75) Lymphocytes % (Manual) 7 % (20-45) Monocytes % (Manual) 2 % (1-10) Eosinophils % (Manual) 2 % (0-3) Basophils % (Manual) 0 % (0-2) Band Neutrophils 0 % (0-8) Platelet Estimate Decreased Platelet Morphology Normal Hypochromasia 1+ Anisocytosis 1+ Test 11/16/19 17:02 11/17/19 03:35 Arterial Blood pH 7.458 (7.350-7.450) Arterial Blood Partial Pressure CO2 34.9 mmHg (35.0-45.0) Arterial Blood Partial Pressure O2 58.1 mmHg (75.0-100.0) Arterial Blood HCO3 24.2 mmol/L (22.0-26.0) Arterial Blood Oxygen Saturation 88.3 % (95-100) Arterial Blood Base Excess 0.5 (-2-2) Danilo Test Positive Sodium Level 129 MMOL/L (136-145) Potassium Level 3.4 MMOL/L (3.5-5.1) Chloride Level 88 MMOL/L (98-107) Carbon Dioxide Level 24 MMOL/L (21-32) Anion Gap 17 mmol/L (5-15) Blood Urea Nitrogen 110 mg/dL (7-18) Creatinine 6.5 MG/DL (0.55-1.30) Estimat Glomerular Filtration Rate 7.5 mL/min (>60) Glucose Level 293 MG/DL (74-106) Calcium Level 6.6 MG/DL (8.5-10.1) Total Bilirubin 0.4 MG/DL (0.2-1.0) Aspartate Amino Transf (AST/SGOT) 12 U/L (15-37) Alanine Aminotransferase (ALT/SGPT) 14 U/L (12-78) Alkaline Phosphatase 87 U/L (46-116) Total Protein 6.2 G/DL (6.4-8.2) Albumin 1.5 G/DL (3.4-5.0) Globulin 4.7 g/dL Albumin/Globulin Ratio 0.3 (1.0-2.7) Objective: WDWN ETT in place reduced LOC reduced breath sounds bilaterally without rhonchi or wheeze [id number] without MRG NABS nontender no HSM; no distention no CCE nonfocal Micro: Microbiology Date/Time Source Procedure Growth Status 11/14/19 10:30 Blood Blood Culture - Preliminary NO GROWTH AFTER 48 HOURS Resulted 11/14/19 10:20 Blood Blood Culture - Preliminary NO GROWTH AFTER 48 HOURS Resulted 11/14/19 11:10 Nasal Nares MRSA Culture - Final Staphylococcus Aureus - Mrsa Complete 11/14/19 11:10 Sputum Induced Gram Stain - Final Resulted 11/14/19 11:10 Sputum Culture - Preliminary Gram Negative Bacillus 1 Gram Negative Bacillus 2 Staphylococcus Aureus Usual Respiratory Smita Resulted 11/14/19 11:10 Urine,Clean Catch Urine Culture - Final Mixed Urogenital Contaminants Complete Accucheck: 232 Torey Douglass MD Nov 17, 2019 08:48
--- NOTE | 2019-11-17 09:53 | General Progress Note ---
Assessment/Plan Status: stable Assessment/Plan: Assessment - h/o gastroparesis and GT feed intolerance - GJ tube dislodged and replaced with G tube - Resp failure, intubated - OBS - Sepeis, shock - CRF - Poor Px Recommendations - OK to use GT for meds. Hold feeds - abx supportive care - elevate HOB - wean off pressors and vent as tolerated - can re-address G to J conversion once stabilized Subjective Allergies: Coded Allergies: No Known Allergies (Verified , 12/31/09) Subjective Above noted d/w RN dopamine down to 6 mcg on vent no feeds d/w sister, Anastasiya Ugalde - requests conservative approach no plans for GJ tube replacement, given overall poor health Objective Last 24 Hour Vital Signs Date Time Temp Pulse Resp B/P (MAP) Pulse Ox O2 Delivery O2 Flow Rate FiO2 11/17/19 09:08 89 19 40 11/17/19 08:47 99.4 11/17/19 08:17 114/55 11/17/19 07:41 93 22 50 11/17/19 06:30 100 22 119/56 (77) 100 11/17/19 06:00 99.4 102 21 101/50 (67) 100 11/17/19 06:00 94 13 11/17/19 05:30 105 24 110/55 (73) 100 11/17/19 05:15 117 23 60 11/17/19 05:00 101.0 102 21 101/50 (67) 100 11/17/19 04:30 103 22 136/78 (97) 100 11/17/19 04:00 94 11/17/19 04:00 102.0 102 21 101/50 (67) 100 11/17/19 04:00 Mechanical Ventilator 11/17/19 04:00 60 11/17/19 03:30 103 22 100 11/17/19 03:06 104 24 60 11/17/19 03:00 102 21 101/50 (67) 100 11/17/19 02:30 103 23 101/60 (74) 100 11/17/19 02:00 104 24 101/61 (74) 100 11/17/19 01:30 103 23 108/56 (73) 100 11/17/19 01:00 102 24 120/59 (79) 100 11/17/19 01:00 100 24 60 11/17/19 00:30 103 24 120/59 (79) 100 11/17/19 00:00 98.6 100 27 120/57 (78) 97 11/17/19 00:00 60 11/17/19 00:00 Mechanical Ventilator 11/16/19 23:30 96 24 60 11/16/19 23:30 100 21 118/67 (84) 100 11/16/19 23:00 101 22 138/70 (92) 100 11/16/19 22:30 101 18 121/66 (84) 100 11/16/19 22:00 101 24 116/56 (76) 100 11/16/19 21:30 99 28 60 11/16/19 21:30 99 18 100/60 (73) 100 11/16/19 21:25 116/68 11/16/19 21:00 101 23 138/70 (92) 96 11/16/19 20:30 100 24 138/70 (92) 97 11/16/19 20:00 Mechanical Ventilator 11/16/19 20:00 98 11/16/19 20:00 98.8 101 29 127/60 (82) 100 11/16/19 20:00 60 11/16/19 19:30 98 18 60 11/16/19 19:30 102 27 139/70 (93) 100 11/16/19 19:00 138/70 11/16/19 19:00 104 18 138/70 (92) 100 11/16/19 18:00 99 18 138/77 (97) 100 11/16/19 18:00 138/77 11/16/19 17:17 94 20 60 11/16/19 17:00 106/54 11/16/19 17:00 100 18 106/54 (71) 100 11/16/19 16:00 96 11/16/19 16:00 110/60 11/16/19 16:00 Mechanical Ventilator 11/16/19 16:00 95 18 110/60 (77) 100 11/16/19 16:00 40 11/16/19 15:20 108 17 40 11/16/19 15:00 119/71 11/16/19 15:00 100 18 115/73 (87) 96 11/16/19 14:00 119/70 11/16/19 14:00 98 18 112/59 (76) 96 11/16/19 13:00 81/39 11/16/19 13:00 86 15 81/39 (53) 95 11/16/19 12:44 110 15 40 11/16/19 12:00 93/53 11/16/19 12:00 Mechanical Ventilator 11/16/19 12:00 95 11/16/19 12:00 99.0 94 17 97/79 (85) 96 11/16/19 12:00 40 11/16/19 11:28 101 24 40 11/16/19 11:18 96/57 11/16/19 11:00 96/57 11/16/19 11:00 90 15 96/57 (70) 96 11/16/19 10:00 93 15 98/54 (69) 96 11/16/19 10:00 98/54 Intake and Output 11/16/19 11/17/19 19:00 07:00 Intake Total 1948.819 ml 2276.571 ml Output Total 445 ml 525 ml Balance 1503.819 ml 1751.571 ml Intake Free Water 600 ml IV Total 1348.819 ml 2276.571 ml Output Urine Total 445 ml 525 ml # Bowel Movements 4 3 Laboratory Tests 11/16/19 17:02: Arterial Blood pH 7.458H, Arterial Blood Partial Pressure CO2 34.9L, Arterial Blood Partial Pressure O2 58.1L, Arterial Blood HCO3 24.2, Arterial Blood Oxygen Saturation 88.3*L, Arterial Blood Base Excess 0.5, Danilo Test Positive 11/17/19 03:35: Sodium Level 129L, Potassium Level 3.4L, Chloride Level 88L, Carbon Dioxide Level 24, Anion Gap 17H, Blood Urea Nitrogen 110H, Creatinine 6.5H, Estimat Glomerular Filtration Rate 7.5, Glucose Level 293H, Calcium Level 6.6L, Total Bilirubin 0.4, Aspartate Amino Transf (AST/SGOT) 12L, Alanine Aminotransferase ( ALT/SGPT) 14, Alkaline Phosphatase 87, Total Protein 6.2L, Albumin 1.5L, Globulin 4.7, Albumin/Globulin Ratio 0.3L Height (Feet): 5 Height (Inches): 3.00 Weight (Pounds): 172 Objective Debilitated AA woman in ICU on vent NCAT (+) ETT coarse BS/ronchi RR abd soft, NT, GT in good position no edema Non verbal Khorrami,Payman MD Nov 17, 2019 09:53
--- NOTE | 2019-11-17 10:22 | NUR ---
NURSE NOTES: Repositioned patient.
--- NOTE | 2019-11-17 11:55 | NUR ---
NURSE NOTES: Titrated O2 down to 30%. Will continue to monitor closely.
--- NOTE | 2019-11-17 11:58 | Infectious Diseases Prog Note ---
Assessment/Plan Assessment/Plan A 1. Staph aureus & gram negative pneumonia 2. Acute renal failure 3. diabetes mellitus 4. CHF 5. CVA 6.Acute respiratory failure 7. Septic shock 8. MRSA carrier P 1. continue linezolid, meropenem 2. will follow up cultures Subjective ROS Limited/Unobtainable: Yes Constitutional: Reports: fever Respiratory: Reports: other - failed weaning Cardiovascular: Reports: other - on Dopamine Allergies: Coded Allergies: No Known Allergies (Verified , 12/31/09) Objective Vital Signs Last 24 Hour Vital Signs Date Time Temp Pulse Resp B/P (MAP) Pulse Ox O2 Delivery O2 Flow Rate FiO2 11/17/19 11:07 97 17 30 11/17/19 10:00 86 19 107/58 (74) 100 11/17/19 09:08 89 19 40 11/17/19 09:00 99.4 89 19 112/53 (72) 100 11/17/19 08:47 99.4 11/17/19 08:30 100.4 90 21 119/65 (83) 100 11/17/19 08:17 114/55 11/17/19 08:00 100 21 105/56 (72) 100 11/17/19 08:00 Mechanical Ventilator 11/17/19 08:00 50 11/17/19 08:00 87 11/17/19 07:41 93 22 50 11/17/19 07:30 92 21 114/55 (74) 100 11/17/19 07:00 92 20 109/61 (77) 100 11/17/19 06:30 100 22 119/56 (77) 100 11/17/19 06:00 99.4 102 21 101/50 (67) 100 11/17/19 06:00 94 13 11/17/19 05:30 105 24 110/55 (73) 100 11/17/19 05:15 117 23 60 11/17/19 05:00 101.0 102 21 101/50 (67) 100 11/17/19 04:30 103 22 136/78 (97) 100 11/17/19 04:00 94 11/17/19 04:00 102.0 102 21 101/50 (67) 100 11/17/19 04:00 Mechanical Ventilator 11/17/19 04:00 60 11/17/19 03:30 103 22 100 11/17/19 03:06 104 24 60 11/17/19 03:00 102 21 101/50 (67) 100 11/17/19 02:30 103 23 101/60 (74) 100 11/17/19 02:00 104 24 101/61 (74) 100 11/17/19 01:30 103 23 108/56 (73) 100 11/17/19 01:00 102 24 120/59 (79) 100 11/17/19 01:00 100 24 60 11/17/19 00:30 103 24 120/59 (79) 100 11/17/19 00:00 98.6 100 27 120/57 (78) 97 11/17/19 00:00 60 11/17/19 00:00 Mechanical Ventilator 11/16/19 23:30 96 24 60 11/16/19 23:30 100 21 118/67 (84) 100 11/16/19 23:00 101 22 138/70 (92) 100 11/16/19 22:30 101 18 121/66 (84) 100 11/16/19 22:00 101 24 116/56 (76) 100 11/16/19 21:30 99 28 60 11/16/19 21:30 99 18 100/60 (73) 100 11/16/19 21:25 116/68 11/16/19 21:00 101 23 138/70 (92) 96 11/16/19 20:30 100 24 138/70 (92) 97 11/16/19 20:00 Mechanical Ventilator 11/16/19 20:00 98 11/16/19 20:00 98.8 101 29 127/60 (82) 100 11/16/19 20:00 60 11/16/19 19:30 98 18 60 11/16/19 19:30 102 27 139/70 (93) 100 11/16/19 19:00 138/70 11/16/19 19:00 104 18 138/70 (92) 100 11/16/19 18:00 99 18 138/77 (97) 100 11/16/19 18:00 138/77 11/16/19 17:17 94 20 60 11/16/19 17:00 106/54 11/16/19 17:00 100 18 106/54 (71) 100 11/16/19 16:00 96 11/16/19 16:00 110/60 11/16/19 16:00 Mechanical Ventilator 11/16/19 16:00 95 18 110/60 (77) 100 11/16/19 16:00 40 11/16/19 15:20 108 17 40 11/16/19 15:00 119/71 11/16/19 15:00 100 18 115/73 (87) 96 11/16/19 14:00 119/70 11/16/19 14:00 98 18 112/59 (76) 96 11/16/19 13:00 81/39 11/16/19 13:00 86 15 81/39 (53) 95 11/16/19 12:44 110 15 40 11/16/19 12:00 93/53 11/16/19 12:00 Mechanical Ventilator 11/16/19 12:00 95 11/16/19 12:00 99.0 94 17 97/79 (85) 96 11/16/19 12:00 40 Height (Feet): 5 Height (Inches): 3.00 Weight (Pounds): 172 HEENT: other - orally intubated Respiratory/Chest: lungs clear, other - on ventilator Cardiovascular: normal rate, other - left arm PICC line Abdomen: soft, non tender, other - GT feeding Extremities: other - generalized edema Neurologic/Psychiatric: unresponsiveness Laboratory Tests Test 11/16/19 17:02 11/17/19 03:35 Arterial Blood pH 7.458 (7.350-7.450) Arterial Blood Partial Pressure CO2 34.9 mmHg (35.0-45.0) L Arterial Blood Partial Pressure O2 58.1 mmHg (75.0-100.0) L Arterial Blood HCO3 24.2 mmol/L (22.0-26.0) Arterial Blood Oxygen Saturation 88.3 % (95-100) *L Arterial Blood Base Excess 0.5 (-2-2) Danilo Test Positive Sodium Level 129 MMOL/L (136-145) L Potassium Level 3.4 MMOL/L (3.5-5.1) L Chloride Level 88 MMOL/L (98-107) L Carbon Dioxide Level 24 MMOL/L (21-32) Anion Gap 17 mmol/L (5-15) H Blood Urea Nitrogen 110 mg/dL (7-18) H Creatinine 6.5 MG/DL (0.55-1.30) H Estimat Glomerular Filtration Rate 7.5 mL/min (>60) Glucose Level 293 MG/DL (74-106) H Calcium Level 6.6 MG/DL (8.5-10.1) L Total Bilirubin 0.4 MG/DL (0.2-1.0) Aspartate Amino Transf (AST/SGOT) 12 U/L (15-37) L Alanine Aminotransferase (ALT/SGPT) 14 U/L (12-78) Alkaline Phosphatase 87 U/L (46-116) Total Protein 6.2 G/DL (6.4-8.2) L Albumin 1.5 G/DL (3.4-5.0) L Globulin 4.7 g/dL Albumin/Globulin Ratio 0.3 (1.0-2.7) L Current Medications Medications (Trade) Dose Ordered Sig/Aaron Route PRN Reason Start Time Stop Time Status Last Admin Dose Admin Acetaminophen (Tylenol) 650 mg Q4H PRN GT Mild Pain/Temp > 100.5 11/17/19 07:30 12/17/19 07:29 11/17/19 08:17 Albuterol/ Ipratropium (Albuterol/ Ipratropium) 3 ml Q4H PRN HHN Shortness of Breath 11/14/19 14:15 11/19/19 14:14 Chlorhexidine Gluconate (Arabella-Hex 2%) 1 applic DAILY@2000 TOPIC 11/15/19 20:00 12/15/19 19:59 11/16/19 20:27 Dextrose (Dextrose 50%) 25 ml Q30M PRN IV Hypoglycemia 11/14/19 19:00 12/14/19 18:59 Dextrose (Dextrose 50%) 50 ml Q30M PRN IV Hypoglycemia 11/14/19 19:00 12/14/19 18:59 Dopamine HCl/ Dextrose 250 ml @ 0 mls/hr Q24H IV 11/15/19 01:15 12/15/19 01:14 11/17/19 08:17 Insulin Aspart (NovoLOG) Q6HR SUBQ 11/15/19 00:00 12/14/19 20:59 11/17/19 11:26 Levetiracetam 100 ml @ 400 mls/hr Q12HR IVPB 11/14/19 15:00 12/14/19 14:59 11/17/19 08:19 Linezolid 300 ml @ 300 mls/hr Q12H IVPB 11/15/19 15:00 11/22/19 14:59 11/17/19 03:20 Lorazepam (Ativan 2mg/ml 1ml) 2 mg Q1HR PRN IV For Seizures 11/14/19 14:15 11/21/19 14:14 11/16/19 20:27 Meropenem 500 mg/ Sodium Chloride 55 ml @ 110 mls/hr Q24H IVPB 11/15/19 17:00 11/20/19 16:59 11/16/19 17:13 Pantoprazole (Protonix) 40 mg DAILY IVP 11/14/19 14:15 12/14/19 14:14 11/17/19 08:17 Sodium Chloride 1,000 ml @ 150 mls/hr Q6H40M IV 11/15/19 00:00 12/15/19 00:00 11/17/19 11:26 Bay Richter MD Nov 17, 2019 11:58
--- NOTE | 2019-11-17 14:02 | NUR ---
NURSE NOTES: Seen by daughter and grandson. Repositioned patient.
--- NOTE | 2019-11-17 14:48 | NUR ---
*-* INSURANCE *-* ALL CLINICALS AND REVIEWS HAVE BEEN FAXED TO: [employer] #[phone] fax# [phone]
[2019-11-17] MEDS ORDERED: 1/2 NS 1000ml IV ONE ×2 (15:38→15:39)
[2019-11-17] MEDS ORDERED: Tubing IV Secondary IV ONE ×2 (15:38→15:39)
[2019-11-17] MEDS ORDERED: NS 275ml ONE ×2 (15:38→15:39)
[2019-11-17] MEDS ORDERED: D5 1/2NS 1000ml IV ONE (15:38)
[2019-11-17] MEDS ORDERED: Tubing IV Blood Pump IV ONE (15:38)
[2019-11-17] MEDS ORDERED: NS 500ML ONE (15:39)
--- NOTE | 2019-11-17 15:52 | NUR ---
CASE MANAGEMENT: REVIEW 11/17/2019 SI:Anemia due to acute blood loss. T 99 HR 89 RR 20 B/P 106/55 SATS 100% ON MECH VENT FIO2 30 LABS: NA 129 K 3.4 CL 88 BUN 110 CR 6.5 GLU 293 CA 6.6 IS:NS @ 150 ML/HR LINEZOLID IV Q12H KEPPRA IV Q12H DOPAMINE IV PER PARAMETERS MEROPENEM IV Q24H INSULIN ASPART SUBQ Q6H ICU PLAN OF CARE: can re-address G to J conversion once stabilized OK to use GT for meds. Hold feeds
--- NOTE | 2019-11-17 16:20 | NUR ---
NURSE NOTES: Bed bath and oral care given. Kept dry, clean and comfortable.
--- NOTE | 2019-11-17 16:45 | Consultation ---
DATE OF CONSULTATION: 11/15/2019 GASTROENTEROLOGY CONSULTATION CONSULTING PHYSICIAN: Darrell Griffith M.D. REFERRING PHYSICIAN: Jeffrey Crowder M.D. CHIEF COMPLAINT: I was asked to see this patient by Dr. Jeffrey Crowder for evaluation of gastrostomy catheter. HISTORY OF PRESENT ILLNESS: The patient is an unfortunate 79-year-old woman who was recently discharged from the hospital, who was brought back to the hospital and is now in respiratory failure in the ICU, on the ventilator. The patient has longstanding history of dysphagia and she has required a gastrostomy catheter for long-term enteral feeding and access. However, she has also been shown to have tube feeding intolerance and regurgitation when fed by the gastrostomy route and therefore, her gastrostomy tube has been converted to a gastrojejunostomy catheter and she has been tolerating feeding well. Her last conversion was on 10/21/2019, which is about a month ago. Her catheter apparently was dislodged at the [place] [facility] where she is at and was replaced it with a standard gastrostomy tube, in which has not been used for feeding. She is in the state of sepsis at this time in the ICU with multiple metabolic derangements as outlined in the chart. The patient herself is unable to provide any history and most information is only available from the chart and previous records. PAST MEDICAL HISTORY: History of congestive heart failure, anemia, dementia, hypercapnia, hypothyroidism, history of pneumonia, history of gastroparesis, dysphagia status post gastrostomy tube placement, bedbound state, status post gastrojejunostomy conversion. ALLERGIES: None. FAMILY HISTORY: Not contributory. SOCIAL HISTORY: The patient at this time resides in a [place] [facility] and her and her sister has made decisions for her. REVIEW OF SYSTEMS: Unobtainable. PHYSICAL EXAMINATION: GENERAL: Debilitated woman, seen in the ICU on the ventilator. HEENT: Normocephalic, atraumatic. Endotracheal tube was in place. NECK: Supple. CHEST: Reveals scattered rhonchi. CARDIOVASCULAR: Revealed regular rate. ABDOMEN: Soft with gastrostomy tube in good position. EXTREMITIES: Revealed no edema. LABORATORY DATA: Noted. ASSESSMENT: This patient has had a gastrostomy tube placed in the past, which has been recently converted to a gastrojejunostomy catheter due to tube feeding intolerance. At this time, it has been reverted back to a simple gastrostomy tube, which can be used for medications. However, I would hold off on feeding through this catheter since she normally has tube feeding intolerance and her current state of sepsis that is likely to be even worse. This would potentially contribute to reflux and further aspiration. For the time being, I will keep her NPO and just use the catheter for oral medications, which can be given through the gastrostomy tube. I have discussed the management with the patient's family and discussed different options with them. RECOMMENDATIONS: 1. Elevate head of bed. 2. Keep the patient NPO except medications. 3. Okay to use gastrostomy tube for the medications. 4. Antibiotics and supportive care. 5. I discussed with the family. Thank you for asking me to participate in the care this patient. (This is a delayed entry note. The patient was seen on 11/15/2019). Darrell Griffith M.D. DR: CHEN JOB#: [id number] CC:
--- NOTE | 2019-11-17 16:52 | NUR ---
RESPIRATORY NOTE: anchor fast has been changed. no redness or skin irritation around facial area. ETT is secured properly Addendum: 11/17/19 at 1656 by KEYONNA MCCLURE RT Amended: Links added.
[2019-11-17] MEDS: Meropenem 500 MG in NS 55 ML IVPB SCH (17:16)
--- NOTE | 2019-11-17 17:22 | General Progress Note ---
Assessment/Plan Problem List: (1) Shock ICD Codes: R57.9 - Shock, unspecified SNOMED: 60694188 (2) Anemia due to acute blood loss ICD Codes: D62 - Acute posthemorrhagic anemia SNOMED: 272407648 (3) Hyperkalemia ICD Codes: E87.5 - Hyperkalemia SNOMED: 03637612 (4) Recurrent seizures ICD Codes: G40.909 - Epilepsy, unspecified, not intractable, without status epilepticus SNOMED: 41115891, 23960923 (5) Aspiration pneumonia ICD Codes: J69.0 - Pneumonitis due to inhalation of food and vomit SNOMED: 156199852 (6) ARF (acute renal failure) ICD Codes: N17.9 - Acute kidney failure, unspecified SNOMED: 01144680 (7) ATN (acute tubular necrosis) ICD Codes: N17.0 - Acute kidney failure with tubular necrosis SNOMED: 94870653 Status: stable Assessment/Plan: cont vent support resp care suctioning as needed iv abx pressors ivf monitor renal fxn monitor labs and cbc transfuse as needed critical and guarded grim prognosis family considering withdrawl of care Subjective ROS Limited/Unobtainable: Yes Constitutional: Reports: malaise, weakness HEENT: Reports: no symptoms Cardiovascular: Reports: edema Respiratory: Reports: shortness of breath, sputum Gastrointestinal/Abdominal: Reports: no symptoms Genitourinary: Reports: no symptoms Neurologic/Psychiatric: Reports: pre-existing deficit Endocrine: Reports: no symptoms Hematologic/Lymphatic: Reports: anemia Allergies: Coded Allergies: No Known Allergies (Verified , 12/31/09) All Systems: reviewed and negative except above Subjective still hypotensive on low dose dopamine 6 mcg. no fevers. GT replaced. renal fxn unchanged. family declined HD. renal fxn and urine output improving. Objective Last 24 Hour Vital Signs Date Time Temp Pulse Resp B/P (MAP) Pulse Ox O2 Delivery O2 Flow Rate FiO2 11/17/19 16:53 92 26 30 11/17/19 16:00 30 11/17/19 16:00 Mechanical Ventilator 11/17/19 16:00 90 11/17/19 16:00 91 21 132/57 (82) 97 11/17/19 15:30 92 21 132/57 (82) 97 11/17/19 15:00 95 21 99/57 (71) 97 11/17/19 14:35 94 21 30 11/17/19 14:30 94 22 97/54 (68) 100 11/17/19 14:00 95 21 97/52 (67) 97 11/17/19 13:30 89 21 95/58 (70) 100 11/17/19 13:00 90 23 107/56 (73) 100 11/17/19 12:36 89 24 30 11/17/19 12:30 89 22 101/57 (72) 100 11/17/19 12:00 30 11/17/19 12:00 92 11/17/19 12:00 99.0 89 20 106/55 (72) 100 11/17/19 12:00 Mechanical Ventilator 11/17/19 11:30 88 19 111/61 (78) 100 11/17/19 11:07 97 17 30 11/17/19 11:00 97 20 115/64 (81) 100 11/17/19 11:00 111/61 11/17/19 10:30 88 21 112/60 (77) 100 11/17/19 10:00 112/60 11/17/19 10:00 40 11/17/19 10:00 86 19 107/58 (74) 100 11/17/19 09:08 89 19 40 11/17/19 09:00 112/53 11/17/19 09:00 99.4 89 19 112/53 (72) 100 11/17/19 08:47 99.4 11/17/19 08:30 100.4 90 21 119/65 (83) 100 11/17/19 08:17 114/55 11/17/19 08:00 100 21 105/56 (72) 100 11/17/19 08:00 Mechanical Ventilator 11/17/19 08:00 50 11/17/19 08:00 105/65 11/17/19 08:00 87 11/17/19 07:41 93 22 50 11/17/19 07:30 92 21 114/55 (74) 100 11/17/19 07:00 92 20 109/61 (77) 100 11/17/19 07:00 109/61 11/17/19 06:30 100 22 119/56 (77) 100 11/17/19 06:00 99.4 102 21 101/50 (67) 100 11/17/19 06:00 94 13 11/17/19 05:30 105 24 110/55 (73) 100 11/17/19 05:15 117 23 60 11/17/19 05:00 101.0 102 21 101/50 (67) 100 11/17/19 04:30 103 22 136/78 (97) 100 11/17/19 04:00 94 11/17/19 04:00 102.0 102 21 101/50 (67) 100 11/17/19 04:00 Mechanical Ventilator 11/17/19 04:00 60 11/17/19 03:30 103 22 100 11/17/19 03:06 104 24 60 11/17/19 03:00 102 21 101/50 (67) 100 11/17/19 02:30 103 23 101/60 (74) 100 11/17/19 02:00 104 24 101/61 (74) 100 11/17/19 01:30 103 23 108/56 (73) 100 11/17/19 01:00 102 24 120/59 (79) 100 11/17/19 01:00 100 24 60 11/17/19 00:30 103 24 120/59 (79) 100 11/17/19 00:00 98.6 100 27 120/57 (78) 97 11/17/19 00:00 60 11/17/19 00:00 Mechanical Ventilator 11/16/19 23:30 96 24 60 11/16/19 23:30 100 21 118/67 (84) 100 11/16/19 23:00 101 22 138/70 (92) 100 11/16/19 22:30 101 18 121/66 (84) 100 11/16/19 22:00 101 24 116/56 (76) 100 11/16/19 21:30 99 28 60 11/16/19 21:30 99 18 100/60 (73) 100 11/16/19 21:25 116/68 11/16/19 21:00 101 23 138/70 (92) 96 11/16/19 20:30 100 24 138/70 (92) 97 11/16/19 20:00 Mechanical Ventilator 11/16/19 20:00 98 11/16/19 20:00 98.8 101 29 127/60 (82) 100 3/11/20 20:00 60 11/16/19 19:30 98 18 60 11/16/19 19:30 102 27 139/70 (93) 100 11/16/19 19:00 138/70 11/16/19 19:00 104 18 138/70 (92) 100 11/16/19 18:00 99 18 138/77 (97) 100 11/16/19 18:00 138/77 11/16/19 17:17 94 20 60 Intake and Output 11/16/19 11/17/19 19:00 07:00 Intake Total 1948.819 ml 2294.942 ml Output Total 445 ml 635 ml Balance 1503.819 ml 1659.942 ml Intake Free Water 600 ml IV Total 1348.819 ml 2294.942 ml Output Urine Total 445 ml 635 ml # Bowel Movements 4 3 Laboratory Tests 11/17/19 03:35: Sodium Level 129L, Potassium Level 3.4L, Chloride Level 88L, Carbon Dioxide Level 24, Anion Gap 17H, Blood Urea Nitrogen 110H, Creatinine 6.5H, Estimat Glomerular Filtration Rate 7.5, Glucose Level 293H, Calcium Level 6.6L, Total Bilirubin 0.4, Aspartate Amino Transf (AST/SGOT) 12L, Alanine Aminotransferase ( ALT/SGPT) 14, Alkaline Phosphatase 87, Total Protein 6.2L, Albumin 1.5L, Globulin 4.7, Albumin/Globulin Ratio 0.3L Height (Feet): 5 Height (Inches): 3.00 Weight (Pounds): 172 Objective General Appearance: WD/WN, lethargic Neck: normal alignment, supple, normal inspection Cardiovascular: normal rate, regular rhythm Respiratory/Chest: no respiratory distress, no accessory muscle use, rhonchi - bilaterally Abdomen: normal bowel sounds, non tender, soft, no organomegaly, no mass Extremities: normal range of motion, non-tender Neurologic: unresponsive, aphasia Jeffrey Crowder MD Nov 17, 2019 17:22
--- NOTE | 2019-11-17 17:40 | NUR ---
NURSE NOTES: Seen by Dr. Peña and assessed patient. With new orders. Will continue plan of care.
--- NOTE | 2019-11-17 18:00 | NUR ---
NURSE NOTES: Patient is still obtunded. No SOB/distress noted. Still running dopamine 6mcg/kg/min. ETT 7.5/24cm with vent setting AC 12, VT 350, Peep 5 and FiO2 30%. Fluid running NS @125ml/hr. Will continue plan of care.
--- NOTE | 2019-11-17 18:29 | Nephrology Progress Note ---
Assessment/Plan Assessment 1. Hyperkalemia resolved 2. Hyponatremia 3. Acute renal failure. 4. Chronic kidney disease. 5. Hypotension. 6. Respiratory failure. Plan d/c ivf low k feeding monitoring renal function avoid NSAID replace electrolyte Subjective ROS Limited/Unobtainable: Yes Subjective intubated Objective Objective Last 24 Hour Vital Signs Date Time Temp Pulse Resp B/P (MAP) Pulse Ox O2 Delivery O2 Flow Rate FiO2 11/17/19 17:00 92 19 126/73 (90) 96 11/17/19 16:53 92 26 30 11/17/19 16:30 93 19 121/65 (83) 96 11/17/19 16:00 30 11/17/19 16:00 Mechanical Ventilator 11/17/19 16:00 90 11/17/19 16:00 91 21 132/57 (82) 97 11/17/19 15:30 92 21 132/57 (82) 97 11/17/19 15:00 95 21 99/57 (71) 97 11/17/19 14:35 94 21 30 11/17/19 14:30 94 22 97/54 (68) 100 11/17/19 14:00 95 21 97/52 (67) 97 11/17/19 13:30 89 21 95/58 (70) 100 11/17/19 13:00 90 23 107/56 (73) 100 11/17/19 12:36 89 24 30 11/17/19 12:30 89 22 101/57 (72) 100 11/17/19 12:00 30 11/17/19 12:00 92 11/17/19 12:00 99.0 89 20 106/55 (72) 100 11/17/19 12:00 Mechanical Ventilator 11/17/19 11:30 88 19 111/61 (78) 100 11/17/19 11:07 97 17 30 11/17/19 11:00 97 20 115/64 (81) 100 11/17/19 11:00 111/61 11/17/19 10:30 88 21 112/60 (77) 100 11/17/19 10:00 112/60 11/17/19 10:00 40 11/17/19 10:00 86 19 107/58 (74) 100 11/17/19 09:08 89 19 40 11/17/19 09:00 112/53 11/17/19 09:00 99.4 89 19 112/53 (72) 100 11/17/19 08:47 99.4 11/17/19 08:30 100.4 90 21 119/65 (83) 100 11/17/19 08:17 114/55 11/17/19 08:00 100 21 105/56 (72) 100 11/17/19 08:00 Mechanical Ventilator 11/17/19 08:00 50 11/17/19 08:00 105/65 11/17/19 08:00 87 11/17/19 07:41 93 22 50 11/17/19 07:30 92 21 114/55 (74) 100 11/17/19 07:00 92 20 109/61 (77) 100 11/17/19 07:00 109/61 11/17/19 06:30 100 22 119/56 (77) 100 11/17/19 06:00 99.4 102 21 101/50 (67) 100 11/17/19 06:00 94 13 11/17/19 05:30 105 24 110/55 (73) 100 11/17/19 05:15 117 23 60 11/17/19 05:00 101.0 102 21 101/50 (67) 100 11/17/19 04:30 103 22 136/78 (97) 100 11/17/19 04:00 94 11/17/19 04:00 102.0 102 21 101/50 (67) 100 11/17/19 04:00 Mechanical Ventilator 11/17/19 04:00 60 11/17/19 03:30 103 22 100 11/17/19 03:06 104 24 60 11/17/19 03:00 102 21 101/50 (67) 100 11/17/19 02:30 103 23 101/60 (74) 100 11/17/19 02:00 104 24 101/61 (74) 100 11/17/19 01:30 103 23 108/56 (73) 100 11/17/19 01:00 102 24 120/59 (79) 100 11/17/19 01:00 100 24 60 11/17/19 00:30 103 24 120/59 (79) 100 11/17/19 00:00 98.6 100 27 120/57 (78) 97 11/17/19 00:00 60 11/17/19 00:00 Mechanical Ventilator 11/16/19 23:30 96 24 60 11/16/19 23:30 100 21 118/67 (84) 100 11/16/19 23:00 101 22 138/70 (92) 100 11/16/19 22:30 101 18 121/66 (84) 100 11/16/19 22:00 101 24 116/56 (76) 100 11/16/19 21:30 99 28 60 11/16/19 21:30 99 18 100/60 (73) 100 11/16/19 21:25 116/68 11/16/19 21:00 101 23 138/70 (92) 96 11/16/19 20:30 100 24 138/70 (92) 97 11/16/19 20:00 Mechanical Ventilator 11/16/19 20:00 98 11/16/19 20:00 98.8 101 29 127/60 (82) 100 11/16/19 20:00 60 11/16/19 19:30 98 18 60 11/16/19 19:30 102 27 139/70 (93) 100 11/16/19 19:00 138/70 11/16/19 19:00 104 18 138/70 (92) 100 Intake and Output 11/16/19 11/17/19 19:00 07:00 Intake Total 1948.819 ml 2294.942 ml Output Total 445 ml 635 ml Balance 1503.819 ml 1659.942 ml Intake Free Water 600 ml IV Total 1348.819 ml 2294.942 ml Output Urine Total 445 ml 635 ml # Bowel Movements 4 3 Laboratory Tests 11/17/19 03:35: Sodium Level 129L, Potassium Level 3.4L, Chloride Level 88L, Carbon Dioxide Level 24, Anion Gap 17H, Blood Urea Nitrogen 110H, Creatinine 6.5H, Estimat Glomerular Filtration Rate 7.5, Glucose Level 293H, Calcium Level 6.6L, Total Bilirubin 0.4, Aspartate Amino Transf (AST/SGOT) 12L, Alanine Aminotransferase ( ALT/SGPT) 14, Alkaline Phosphatase 87, Total Protein 6.2L, Albumin 1.5L, Globulin 4.7, Albumin/Globulin Ratio 0.3L Height (Feet): 5 Height (Inches): 3.00 Weight (Pounds): 172 Objective HEAD AND NECK: Intubated. Extraocular movements are intact. Pupils are reactive to light and accommodation. LUNGS: Bilateral rhonchi. CARDIAC: Regular rate and rhythm. S1-S2. No murmur. No rub. ABDOMEN: Soft, nontender, and nondistended. EXTREMITIES: No edema. No clubbing. No cyanosis. Gwendolyn Moise MD Nov 17, 2019 18:29
--- NOTE | 2019-11-17 18:45 | NUR ---
NURSE NOTES: Patient is anxious and keeps biting ETT. Told her not to bite the tube but unable to communicate. Called Dr. Crowder, new order read back and confirmed.
--- NOTE | 2019-11-17 19:30 | NUR ---
HAND-OFF: Report given to FELY Gomez. Endorsed plan of care.
--- NOTE | 2019-11-17 19:35 | Consultation ---
History of Present Illness General Date patient seen: Nov 17, 2019 Chief Complaint: Dyspnea/Respdistress Present Illness HPI This is a very unfortunate 79-year-old female who was recently hospitalized who presents to [facility] for evaluation of respiratory distress now currently in the intensive care unit on support. Patient prior dysphasia unable to tolerate diet PEG tube placement with complication of regurgitation and not tolerance who has been deteriorating for some time now and identified now to have decubitus ulcers requiring care and management. Surgery called to evaluate and assist with care. Patient seen, patient evaluated, chart reviewed Allergies: Coded Allergies: No Known Allergies (Verified , 12/31/09) Medication History Scheduled Aspirin* (Aspirin*), 81 MG GT DAILY, (Reported) Docusate Sodium* (Docusate Sodium*), 100 MG GT TWICE A DAY, (Reported) Gabapentin* (Gabapentin*), 100 MG GT BID, (Reported) Insulin Aspart (Novolog Flexpen), 0 AC+HS, (Reported) Insulin Detemir (Levemir Flexpen), 6 UNITS SUBQ BID, (Reported) Levetiracetam (Keppra), 1,000 MG GT BID, (Reported) Levothyroxine Sodium* (Synthroid*), 75 MCG GT DAILY, (Reported) Metoprolol Tartrate* (Metoprolol Tartrate*), 25 MG ORAL EVERY 12 HOURS, ( Reported) Polyethylene Glycol 3350* (Miralax*), 17 GM ORAL BEDTIME, (Reported) Scheduled PRN Clonidine Hcl* (Catapres*), 0.1 MG GT EVERY 6 HOURS PRN for SBP>160, (Reported) Lactulose (Lactulose*), 30 ML GT DAILY PRN for Constipation, (Reported) Lansoprazole* (Lansoprazole*), 30 MG GT DAILY PRN for Per rx protocol, (Reported ) Miscellaneous Medications Ciprofloxacin (Cipro), 250 MG PO, (Reported) Discontinued Medications Acetaminophen (Tylenol), 325-650 MG GT Q4HR PRN for Pain Scale (3-5), (Reported) Discontinued Reason: Therapy completed Ciprofloxacin (Cipro), 250 MG PO Q12HR, (Reported) Discontinued Reason: Therapy completed Dextrose 50 % in Water (Dextrose 50%-Water Syringe), 50 ML IV Q30MIN PRN for Hypoglycemia, (Reported) Discontinued Reason: Therapy completed Heparin Sod (Porcine) (Heparin Sodium*), 5,000 UNITS SUBQ EVERY 12 HOURS, ( Reported) Discontinued Reason: Therapy completed Insulin Aspart (Novolog Flexpen), SUBQ Q6HR PRN for Per rx protocol, (Reported) Discontinued Reason: Therapy completed Insulin Detemir (Levemir Flexpen), 5 SUBQ BID, (Reported) Discontinued Reason: Therapy completed Insulin Glargine (Lantus), 8 UNITS SUBQ BEDTIME, (Reported) Discontinued Reason: Therapy completed Insulin Regular, Human (Humulin R), Unknown Dose SUBQ AC, (Reported) Discontinued Reason: Therapy completed Ipratropium/Albuterol Sulfate (DuoNeb 0.5-3(2.5)mg/3ml), 3 ML HHN QID, (Reported ) Discontinued Reason: Therapy completed Levetiracetam (Keppra), 1,000 MG ORAL Q12HR, (Reported) Discontinued Reason: Therapy completed Magnesium Hydroxide* (Milk Of Magnesia*), 30 ML GT DAILY PRN for Constipation, ( Reported) Discontinued Reason: Therapy completed Pantoprazole* (Pantoprazole*), 40 MG GT DAILY, (Reported) Discontinued Reason: Therapy completed Patient History Limited by: medical condition History Provided By: Medical Record, PMD Healthcare decision maker Resuscitation status Do Not Resuscitate Advanced Directive on File Past Medical/Surgical History Past Medical/Surgical History: (1) Diabetes (2) Hip fracture (3) Fall (4) HTN (hypertension) (5) Encephalopathy acute (6) Weakness (7) Shortness of breath (8) Diabetes mellitus (9) Dementia (10) CHF (congestive heart failure) (11) UTI (urinary tract infection) (12) Pneumonia (13) Acute respiratory failure (14) Aspiration pneumonia (15) Recurrent seizures (16) Hyperkalemia (17) ATN (acute tubular necrosis) (18) Anemia due to acute blood loss (19) Shock (20) ARF (acute renal failure) Review of Systems ROS Narrative Cannot obtain given patient's current medical condition Physical Exam General Appearance: mild distress Lines, tubes and drains: other HEENT: normocephalic, mucous membranes moist Neck: supple, other Respiratory/Chest: on vent Cardiovascular/Chest: normal rate Abdomen: soft, no organomegaly, no mass, feeding tube, other Extremities: normal inspection Skin Exam: warm/dry Neurologic: other Last 24 Hour Vital Signs Date Time Temp Pulse Resp B/P (MAP) Pulse Ox O2 Delivery O2 Flow Rate FiO2 11/17/19 19:00 119/69 11/17/19 19:00 96 27 119/69 (86) 100 11/17/19 18:30 96 27 122/69 (86) 100 11/17/19 18:00 115/70 11/17/19 18:00 94 22 115/70 (85) 98 11/17/19 17:30 93 23 122/67 (85) 95 11/17/19 17:00 92 19 126/73 (90) 96 11/17/19 17:00 121/65 11/17/19 16:53 92 26 30 11/17/19 16:30 93 19 121/65 (83) 96 11/17/19 16:00 30 11/17/19 16:00 Mechanical Ventilator 11/17/19 16:00 132/57 11/17/19 16:00 90 11/17/19 16:00 91 21 132/57 (82) 97 11/17/19 16:00 98.2 91 21 132/57 (82) 97 11/17/19 15:30 92 21 132/57 (82) 97 11/17/19 15:00 95 21 99/57 (71) 97 11/17/19 15:00 99/57 11/17/19 14:35 94 21 30 11/17/19 14:30 94 22 97/54 (68) 100 11/17/19 14:00 97/52 11/17/19 14:00 95 21 97/52 (67) 97 11/17/19 13:30 89 21 95/58 (70) 100 11/17/19 13:00 90 23 107/56 (73) 100 11/17/19 13:00 107/56 11/17/19 12:36 89 24 30 11/17/19 12:30 89 22 101/57 (72) 100 11/17/19 12:00 30 11/17/19 12:00 106/55 11/17/19 12:00 92 11/17/19 12:00 99.0 89 20 106/55 (72) 100 11/17/19 12:00 Mechanical Ventilator 11/17/19 11:30 88 19 111/61 (78) 100 11/17/19 11:07 97 17 30 11/17/19 11:00 97 20 115/64 (81) 100 11/17/19 11:00 111/61 11/17/19 10:30 88 21 112/60 (77) 100 11/17/19 10:00 112/60 11/17/19 10:00 40 11/17/19 10:00 86 19 107/58 (74) 100 11/17/19 09:08 89 19 40 11/17/19 09:00 112/53 11/17/19 09:00 99.4 89 19 112/53 (72) 100 11/17/19 08:47 99.4 11/17/19 08:30 100.4 90 21 119/65 (83) 100 11/17/19 08:17 114/55 11/17/19 08:00 100 21 105/56 (72) 100 11/17/19 08:00 Mechanical Ventilator 11/17/19 08:00 50 11/17/19 08:00 105/65 11/17/19 08:00 87 11/17/19 07:41 93 22 50 11/17/19 07:30 92 21 114/55 (74) 100 11/17/19 07:00 92 20 109/61 (77) 100 11/17/19 07:00 109/61 11/17/19 06:30 100 22 119/56 (77) 100 11/17/19 06:00 99.4 102 21 101/50 (67) 100 11/17/19 06:00 94 13 11/17/19 05:30 105 24 110/55 (73) 100 11/17/19 05:15 117 23 60 11/17/19 05:00 101.0 102 21 101/50 (67) 100 11/17/19 04:30 103 22 136/78 (97) 100 11/17/19 04:00 94 11/17/19 04:00 102.0 102 21 101/50 (67) 100 11/17/19 04:00 Mechanical Ventilator 11/17/19 04:00 60 11/17/19 03:30 103 22 100 11/17/19 03:06 104 24 60 11/17/19 03:00 102 21 101/50 (67) 100 11/17/19 02:30 103 23 101/60 (74) 100 11/17/19 02:00 104 24 101/61 (74) 100 11/17/19 01:30 103 23 108/56 (73) 100 11/17/19 01:00 102 24 120/59 (79) 100 11/17/19 01:00 100 24 60 11/17/19 00:30 103 24 120/59 (79) 100 11/17/19 00:00 98.6 100 27 120/57 (78) 97 11/17/19 00:00 60 11/17/19 00:00 Mechanical Ventilator 11/16/19 23:30 96 24 60 11/16/19 23:30 100 21 118/67 (84) 100 11/16/19 23:00 101 22 138/70 (92) 100 11/16/19 22:30 101 18 121/66 (84) 100 11/16/19 22:00 101 24 116/56 (76) 100 11/16/19 21:30 99 28 60 11/16/19 21:30 99 18 100/60 (73) 100 11/16/19 21:25 116/68 11/16/19 21:00 101 23 138/70 (92) 96 11/16/19 20:30 100 24 138/70 (92) 97 11/16/19 20:00 Mechanical Ventilator 11/16/19 20:00 98 11/16/19 20:00 98.8 101 29 127/60 (82) 100 11/16/19 20:00 60 Intake and Output 11/16/19 11/17/19 19:00 07:00 Intake Total 1948.819 ml 2294.942 ml Output Total 445 ml 635 ml Balance 1503.819 ml 1659.942 ml Intake Free Water 600 ml IV Total 1348.819 ml 2294.942 ml Output Urine Total 445 ml 635 ml # Bowel Movements 4 3 Laboratory Tests Test 11/17/19 03:35 Sodium Level 129 MMOL/L (136-145) L Potassium Level 3.4 MMOL/L (3.5-5.1) L Chloride Level 88 MMOL/L (98-107) L Carbon Dioxide Level 24 MMOL/L (21-32) Anion Gap 17 mmol/L (5-15) H Blood Urea Nitrogen 110 mg/dL (7-18) H Creatinine 6.5 MG/DL (0.55-1.30) H Estimat Glomerular Filtration Rate 7.5 mL/min (>60) Glucose Level 293 MG/DL (74-106) H Calcium Level 6.6 MG/DL (8.5-10.1) L Total Bilirubin 0.4 MG/DL (0.2-1.0) Aspartate Amino Transf (AST/SGOT) 12 U/L (15-37) L Alanine Aminotransferase (ALT/SGPT) 14 U/L (12-78) Alkaline Phosphatase 87 U/L (46-116) Total Protein 6.2 G/DL (6.4-8.2) L Albumin 1.5 G/DL (3.4-5.0) L Globulin 4.7 g/dL Albumin/Globulin Ratio 0.3 (1.0-2.7) L Height (Feet): 5 Height (Inches): 3.00 Weight (Pounds): 172 Medications Current Medications Medications (Trade) Dose Ordered Sig/Aaron Route PRN Reason Start Time Stop Time Status Last Admin Dose Admin Acetaminophen (Tylenol) 650 mg Q4H PRN GT Mild Pain/Temp > 100.5 11/17/19 07:30 12/17/19 07:29 11/17/19 08:17 Albuterol/ Ipratropium (Albuterol/ Ipratropium) 3 ml Q4H PRN HHN Shortness of Breath 11/14/19 14:15 11/19/19 14:14 Chlorhexidine Gluconate (Arabella-Hex 2%) 1 applic DAILY@2000 TOPIC 11/15/19 20:00 12/15/19 19:59 11/16/19 20:27 Dextrose (Dextrose 50%) 25 ml Q30M PRN IV Hypoglycemia 11/14/19 19:00 12/14/19 18:59 Dextrose (Dextrose 50%) 50 ml Q30M PRN IV Hypoglycemia 11/14/19 19:00 12/14/19 18:59 Dopamine HCl/ Dextrose 250 ml @ 0 mls/hr Q24H IV 11/15/19 01:15 12/15/19 01:14 11/17/19 08:17 Insulin Aspart (NovoLOG) Q6HR SUBQ 11/15/19 00:00 12/14/19 20:59 11/17/19 17:17 Levetiracetam 100 ml @ 400 mls/hr Q12HR IVPB 11/14/19 15:00 12/14/19 14:59 11/17/19 08:19 Linezolid 300 ml @ 300 mls/hr Q12H IVPB 11/15/19 15:00 11/22/19 14:59 11/17/19 14:53 Lorazepam (Ativan 2mg/ml 1ml) 1 mg Q4H PRN IV For Anxiety 11/17/19 18:45 11/24/19 18:44 Lorazepam (Ativan 2mg/ml 1ml) 2 mg Q1HR PRN IV For Seizures 11/14/19 14:15 11/21/19 14:14 11/16/19 20:27 Meropenem 500 mg/ Sodium Chloride 55 ml @ 110 mls/hr Q24H IVPB 11/15/19 17:00 11/20/19 16:59 11/17/19 17:16 Pantoprazole (Protonix) 40 mg DAILY IVP 11/14/19 14:15 12/14/19 14:14 11/17/19 08:17 Sodium Chloride 1,000 ml @ 75 mls/hr [id number] IV 11/18/19 17:15 12/18/19 17:14 Assessment/Plan Problem List: (1) Decubitus skin ulcer Assessment & Plan: Pt presented on admission with multiple pressure injuries. DTPI sacrum . Base of injury is indurated,purple with areas that are maroon in colour. An area of fluctuance noted at sacrococcygeal area. Borders are irregular (L)8.5cm x (W)9.3cm.Historical scar also noted within base of Sacral pressure injury. DTPI medial L heel. Base of injury fluctuant,maroon with surrounding non- blanching erythema. (L)1.7cm x (W)1.6cm. DTPI medial R heel. Base of injury is maroon and fluctuant(L)3.1cm x (W)2.5cm. Tx.Plan: Apply Moisture Barrier Paste to Sacrum. Cover with Optifoam drsg. Change every 3 days and prn. Apply Cavilon Skin Barrier to both heels. Cover each heel with Optifoam drsg. Change every 7 days and prn. APM/VALERIE Mattress. Reposition at least every 2 hours or as tolerated. Off-load heels with pillow. Patient is at high risk for deterioration of wounds opening of DTI and formation of worsening decubitus will need close monitoring and significant amount of care to ensure improvement. Nutritional optimization. Will follow with recommendations thank you ICD Codes: L89.90 - Pressure ulcer of unspecified site, unspecified stage SNOMED: 740314254 (2) Failure to thrive in adult Assessment & Plan: Not tolerating tube feeds regurgitation high residuals DAILY ESTIMATED NEEDS: Needs based on Critical care, sepsis, wound, ARF/ 57.7kg abw 22-30 kcals/kg 0479-9771 total kcals 0.8-1.3 (increase w/ renal fxn improvement) g protein/kg 46-75 g total protein 25-30 mL/kg 2409-0899 total fluid mLs NUTRITION DIAGNOSIS: 1) Swallowing difficulty r/t dysphagia as evidenced by pt is Jtube dep, currently orally intubated, NPO. 2) Altered nutrition related lab values r/t respiratory failure, DM, ARF, sepsis as evidenced by COW >45*, elev pH 7.616*, elev K (7.2*), elev creat (8.8), elev BUN (178), elev BG (228), elev LA, elev wbc (22.2*) CURRENT TF:NPO ENTERAL NUTRITION RECOMMENDATIONS: Nepro @ 40ml/hr x 22 hrs to provide 880ml, 1584kcal, 71g prot, 640ml free water * Rec Nepro at this time given ARF, +hyperkalemia w/ creat 8.8. * When medically appropriate, initiate Nepro @ 20ml/hr x 6 hrs, advance 10ml q 4 -6 hrs as tolerated to goal rate * Hold 1 hr before and after Synthroid med * HOB over 30 degrees/ water flush per MD ---- W/ improved renal fxn and normalized lytes, rec Glucerna 1.2 @ 60ml/hr x 22 hrs to provide 1320ml, 1584 kcal, 79g pro, 1063ml free H2O ADDITIONAL RECOMMENDATIONS: 1) Monitor lytes and renal fxn closely -> admitted w/ creat > 8.0, creat previous adm < 2.0 -> K critically elev, s/p kayexalate. 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 ICD Codes: R62.7 - Adult failure to thrive SNOMED: 643467462 (3) Acute respiratory failure Assessment & Plan: As per pulmonology available if trach needs ICD Codes: J96.00 - Acute respiratory failure, unspecified whether with hypoxia or hypercapnia SNOMED: 59276558 Jared Mcarthur Nov 17, 2019 19:35
--- NOTE | 2019-11-17 19:35 | NUR ---
NURSE NOTES: Received report from FELY Loco. Patient in bed with eyes closed, Noted with ETT 7.5/24cm with vent setting AC 12, VT 350, Peep 5 and FiO2 30%. O2 sat 100% on the monitor. No s/s of acute distress noted. G-tube intact and clamped, NPO, no residual. Left upper arm PICC line intact infusing with Dopamine 6mcg/kg/min. HR 96 on the monitor.Code status DNR/DNI, comfort measure continued. kept dry, clean and comfortable. Contact and seizure precaution maintain and observed.P200 mattress for wound management. Will continue plan of care.
[2019-11-17] MEDS: Dyna-Hex 2% Top Sol 2oz TOPIC SCH (21:20)
--- NOTE | 2019-11-17 21:30 | NUR ---
NURSE NOTES: Left upper arm PICC line intact and clean. Running with Dopamine 6mcg/kg/min. HR 96 on the monitor. kept dry, clean and comfortable. Comfort measure provided. Turned and repositioned.Will continue plan of care.
[2019-11-17] MEDS: LORazepam Inj 2mg/ml 1ml IV PRN (23:50)
--- NOTE | 2019-11-17 23:53 | NUR ---
NURSE NOTES: Patient with episode of anxiety biting tubing., talk therapy, repositioned provided not effective, explained the risk and benefits of Ativan prior to administration. Ativan IVP given effective will continue to monitor.
[2019-11-18] VITALS (35 sets, daily range): BP systolic 94–146; BP diastolic 52–84
--- NOTE | 2019-11-18 | Progress Note ---
DATE: 11/17/2019 CARDIOLOGY PROGRESS NOTE SUBJECTIVE: Condition remains critical. Prognosis guarded. The patient remains in the intensive care unit. She remains on ventilator support requiring pressors for adequate perfusion. OBJECTIVE: VITAL SIGNS: Blood pressure 99/57, pulse 95, respirations 21, temperature 99, and T-max 100.4. HEENT: Orally intubated. LUNGS: Bilateral breath sounds. HEART: Regular rhythm and rate. Normal S1, S2 with a fourth heart sound. ABDOMEN: Soft. EXTREMITIES: No edema. LABORATORY DATA: Sodium 129, potassium 3.4, bicarb 24, chloride 88, BUN 110, and creatinine 6.5. Albumin 1.5. IMPRESSION: 1. Polymicrobial pneumonia, healthcare acquired. 2. Respiratory failure. 3. Sepsis with shock. 4. Dehydration and hyponatremia, corrected. Hyponatremia which is dilutional hyponatremia. PLAN: 1. Taper pressors. 2. Isotonic hydration. 3. Nutrition by feeding tube. 4. Antimicrobials. 5. Respiratory hygiene. 6. Replace electrolytes as needed. 7. DNR. Kavon Peña M.D. DR: RICHY JOB#: [id number] CC:
[2019-11-18] MEDS: NovoLOG Insulin Flexpen SUBQ SCH ×4 (01:06→18:43)
--- NOTE | 2019-11-18 02:00 | NUR ---
NURSE NOTES: Turned and repositioned patient. Bed bath given tolerated well. comfort measure provided.
--- NOTE | 2019-11-18 06:00 | NUR ---
NURSE NOTES: Patient blood glucose 138mg/dl no s/s. no s/s of acute distress noted.
--- NOTE | 2019-11-18 07:30 | NUR ---
HAND-OFF: Report given to Binu GEIGER.
--- NOTE | 2019-11-18 07:31 | NUR ---
NURSE NOTES: Received patient from Patricia GEIGER. Patient is obtunded, Sinus Rhythm on the heart monitor. HR 96. Receiving oxygen via ET tube 7.5, 24cm at the lip line. Vent settings: AC 12, TV 350, Fio2 30%. IV site is left Upper arm PICC, receiving dopamine drip at 6mcg/kg/min. Right forearm 22g patent and asymptomatic. Barron catheter is intact and draining. Bed is locked, placed in lowest position, side rails up x3, bed alarm on, head of bed elevated, call light within reach. Will continue to monitor.
--- NOTE | 2019-11-18 08:37 | Critical Care Progress Note ---
Assessment/Plan Assessment/Plan Respiratory failure, acute on chronic. Alkalemia due to hyperventilation, chronic metabolic alkalosis, chronic respiratory acidosis, leukocytosis, sepsis, anemia, hyponatremia, hyperkalemia, chronic renal failure, severe protein-calorie malnutrition. hyponatremia PLAN fluids discontinued care noted and reviewed IV antibiotics- cultures noted respiratory care reviewed Ventilatory support and wean if able meds noted SNF meds supportive care suction and monitor imaging try to remove support from vent as able oxygen therapy and titrate prognosis guarded still appears infected and need to monitor counts sodium still low medications/laboratory data/nursing notes/ICU care reviewed in detail note reviewed and edited care discussed with RN and RT ICU time spent >40 minutes Critical Care - Subjective Interval Events: care noted on vent events reviewed ICU care noted ROS Limited/Unobtainable: Yes Condition: critical EKG Rhythm: Sinus Rhythm Residuals: minimal Tube Feeding Tolerated: yes I&O: Intake and Output 11/17/19 11/18/19 19:00 07:00 Intake Total 2075.131 ml 620.609 ml Output Total 1420 ml 1275 ml Balance 655.131 ml -654.391 ml Intake Free Water 50 ml IV Total 2025.131 ml 620.609 ml Output Urine Total 1420 ml 1275 ml Critical Care - Objective ET-Tube: 7.5 ET Position: 24 Last 24 Hour Vital Signs Date Time Temp Pulse Resp B/P (MAP) Pulse Ox O2 Delivery O2 Flow Rate FiO2 11/18/19 07:00 104 22 131/62 (85) 97 11/18/19 07:00 136/55 11/18/19 06:50 103 20 30 11/18/19 06:30 104 20 11/18/19 06:00 104 20 116/58 (77) 96 11/18/19 06:00 125/65 11/18/19 05:14 106 19 30 11/18/19 05:00 104 16 123/60 (81) 94 11/18/19 05:00 119/61 11/18/19 04:00 30 11/18/19 04:00 98.2 105 20 98/57 (71) 98 11/18/19 04:00 116/59 11/18/19 04:00 Mechanical Ventilator 11/18/19 04:00 108 11/18/19 03:06 112 22 30 11/18/19 03:00 141/91 11/18/19 03:00 106 31 117/79 (92) 93 11/18/19 02:30 103 28 105/52 (69) 95 11/18/19 02:00 105/52 11/18/19 02:00 105 22 103/57 (72) 98 11/18/19 01:30 97 17 94/58 (70) 98 11/18/19 01:30 96 19 30 11/18/19 01:00 96 16 108/67 (81) 98 11/18/19 01:00 94/58 11/18/19 00:30 97 18 115/60 (78) 99 11/18/19 00:00 30 11/18/19 00:00 115/60 11/18/19 00:00 96 11/18/19 00:00 98.0 103 29 106/62 (77) 96 11/18/19 00:00 Mechanical Ventilator 11/17/19 23:30 99 24 30 11/17/19 23:00 96 20 119/63 (81) 98 11/17/19 23:00 119/63 11/17/19 22:30 95 17 123/63 (83) 100 11/17/19 22:00 94 19 121/64 (83) 98 11/17/19 22:00 121/64 11/17/19 21:53 115/66 11/17/19 21:05 100 22 30 11/17/19 21:00 124/71 11/17/19 21:00 102 21 124/71 (88) 97 11/17/19 20:30 95 22 120/65 (83) 95 11/17/19 20:00 98.4 94 20 122/65 (84) 100 11/17/19 20:00 122/65 11/17/19 20:00 Mechanical Ventilator 11/17/19 20:00 96 11/17/19 20:00 30 11/17/19 19:30 98 25 60 11/17/19 19:00 119/69 11/17/19 19:00 96 27 119/69 (86) 100 11/17/19 18:30 96 27 122/69 (86) 100 11/17/19 18:00 115/70 11/17/19 18:00 94 22 115/70 (85) 98 11/17/19 17:30 93 23 122/67 (85) 95 11/17/19 17:00 92 19 126/73 (90) 96 11/17/19 17:00 121/65 11/17/19 16:53 92 26 30 11/17/19 16:30 93 19 121/65 (83) 96 11/17/19 16:00 30 11/17/19 16:00 Mechanical Ventilator 11/17/19 16:00 132/57 11/17/19 16:00 90 11/17/19 16:00 91 21 132/57 (82) 97 11/17/19 16:00 98.2 91 21 132/57 (82) 97 11/17/19 15:30 92 21 132/57 (82) 97 11/17/19 15:00 95 21 99/57 (71) 97 11/17/19 15:00 99/57 11/17/19 14:35 94 21 30 11/17/19 14:30 94 22 97/54 (68) 100 11/17/19 14:00 97/52 11/17/19 14:00 95 21 97/52 (67) 97 11/17/19 13:30 89 21 95/58 (70) 100 11/17/19 13:00 90 23 107/56 (73) 100 11/17/19 13:00 107/56 11/17/19 12:36 89 24 30 11/17/19 12:30 89 22 101/57 (72) 100 11/17/19 12:00 30 11/17/19 12:00 106/55 11/17/19 12:00 92 11/17/19 12:00 99.0 89 20 106/55 (72) 100 11/17/19 12:00 Mechanical Ventilator 11/17/19 11:30 88 19 111/61 (78) 100 11/17/19 11:07 97 17 30 11/17/19 11:00 97 20 115/64 (81) 100 11/17/19 11:00 111/61 11/17/19 10:30 88 21 112/60 (77) 100 11/17/19 10:00 112/60 11/17/19 10:00 40 11/17/19 10:00 86 19 107/58 (74) 100 11/17/19 09:08 89 19 40 11/17/19 09:00 112/53 11/17/19 09:00 99.4 89 19 112/53 (72) 100 11/17/19 08:47 99.4 Labs: Labs Test 11/15/19 09:50 11/15/19 16:00 11/15/19 19:43 11/16/19 06:25 Lactic Acid Level 0.90 mmol/L (0.4-2.0) Urine Eosinophils None seen (NONE SEEN) Urine Random Total Protein 128 MG/DL (< 11.9) Urine Random Sodium 86 mmol/L (20-110) Urine Creatinine 24.5 MG/DL (30.0-125.0) Sodium Level 139 MMOL/L (136-145) 134 MMOL/L (136-145) Potassium Level 4.3 MMOL/L (3.5-5.1) 3.9 MMOL/L (3.5-5.1) Chloride Level 93 MMOL/L (98-107) 90 MMOL/L (98-107) Carbon Dioxide Level 32 MMOL/L (21-32) 26 MMOL/L (21-32) Anion Gap 14 mmol/L (5-15) 18 mmol/L (5-15) Blood Urea Nitrogen 135 mg/dL (7-18) 125 mg/dL (7-18) Creatinine 6.9 MG/DL (0.55-1.30) 6.3 MG/DL (0.55-1.30) Estimat Glomerular Filtration Rate 6.9 mL/min (>60) 7.8 mL/min (>60) Glucose Level 221 MG/DL (74-106) 259 MG/DL (74-106) Calcium Level 7.1 MG/DL (8.5-10.1) 6.8 MG/DL (8.5-10.1) Total Bilirubin 0.6 MG/DL (0.2-1.0) 0.6 MG/DL (0.2-1.0) Aspartate Amino Transf (AST/SGOT) 19 U/L (15-37) 19 U/L (15-37) Alanine Aminotransferase (ALT/SGPT) 12 U/L (12-78) 8 U/L (12-78) Alkaline Phosphatase 85 U/L (46-116) 84 U/L (46-116) Total Protein 7.1 G/DL (6.4-8.2) 6.5 G/DL (6.4-8.2) Albumin 2.1 G/DL (3.4-5.0) 1.8 G/DL (3.4-5.0) Globulin 5.0 g/dL 4.7 g/dL Albumin/Globulin Ratio 0.4 (1.0-2.7) 0.4 (1.0-2.7) White Blood Count 23.4 K/UL (4.8-10.8) Red Blood Count 2.99 M/UL (4.20-5.40) Hemoglobin 8.6 G/DL (12.0-16.0) Hematocrit 25.4 % (37.0-47.0) Mean Corpuscular Volume 85 FL (80-99) Mean Corpuscular Hemoglobin 28.6 PG (27.0-31.0) Mean Corpuscular Hemoglobin Concent 33.7 G/DL (32.0-36.0) Red Cell Distribution Width 14.6 % (11.6-14.8) Platelet Count 147 K/UL (150-450) Mean Platelet Volume 6.5 FL (6.5-10.1) Neutrophils (%) (Auto) % (45.0-75.0) Lymphocytes (%) (Auto) % (20.0-45.0) Monocytes (%) (Auto) % (1.0-10.0) Eosinophils (%) (Auto) % (0.0-3.0) Basophils (%) (Auto) % (0.0-2.0) Differential Total Cells Counted 100 Neutrophils % (Manual) 89 % (45-75) Lymphocytes % (Manual) 7 % (20-45) Monocytes % (Manual) 2 % (1-10) Eosinophils % (Manual) 2 % (0-3) Basophils % (Manual) 0 % (0-2) Band Neutrophils 0 % (0-8) Platelet Estimate Decreased Platelet Morphology Normal Hypochromasia 1+ Anisocytosis 1+ Test 11/16/19 17:02 11/17/19 03:35 Arterial Blood pH 7.458 (7.350-7.450) Arterial Blood Partial Pressure CO2 34.9 mmHg (35.0-45.0) Arterial Blood Partial Pressure O2 58.1 mmHg (75.0-100.0) Arterial Blood HCO3 24.2 mmol/L (22.0-26.0) Arterial Blood Oxygen Saturation 88.3 % (95-100) Arterial Blood Base Excess 0.5 (-2-2) Danilo Test Positive Sodium Level 129 MMOL/L (136-145) Potassium Level 3.4 MMOL/L (3.5-5.1) Chloride Level 88 MMOL/L (98-107) Carbon Dioxide Level 24 MMOL/L (21-32) Anion Gap 17 mmol/L (5-15) Blood Urea Nitrogen 110 mg/dL (7-18) Creatinine 6.5 MG/DL (0.55-1.30) Estimat Glomerular Filtration Rate 7.5 mL/min (>60) Glucose Level 293 MG/DL (74-106) Calcium Level 6.6 MG/DL (8.5-10.1) Total Bilirubin 0.4 MG/DL (0.2-1.0) Aspartate Amino Transf (AST/SGOT) 12 U/L (15-37) Alanine Aminotransferase (ALT/SGPT) 14 U/L (12-78) Alkaline Phosphatase 87 U/L (46-116) Total Protein 6.2 G/DL (6.4-8.2) Albumin 1.5 G/DL (3.4-5.0) Globulin 4.7 g/dL Albumin/Globulin Ratio 0.3 (1.0-2.7) Objective: [facility] ETT in place reduced LOC reduced breath sounds bilaterally without rhonchi or wheeze [id number] without MRG NABS nontender no HSM; no distention no CCE nonfocal reviewed and edited Accucheck: 138 Torey Douglass MD Nov 18, 2019 08:37
[2019-11-18] MEDS: levETIRAcetam 500mg/NS100ml 100 ML IVPB SCH ×2 (09:02→21:27)
[2019-11-18] MEDS: Pantoprazole Inj IVP SCH (09:02)
[2019-11-18 09:58] LABS: HEMATOCRIT 29.4 % (37.0-47.0); HEMOGLOBIN 9.9 G/DL (12.0-16.0); MEAN CORPUSCULAR VOLUME 83 FL (80-99); PLATELET COUNT 157 K/UL (150-450); RED BLOOD COUNT 3.55 M/UL (4.20-5.40); RED CELL DISTRIBUTION WIDTH 13.5 % (11.6-14.8)
[2019-11-18 10:26] LABS: ALANINE AMINOTRANSFERASE 14 U/L (12-78); ALBUMIN 1.7 G/DL (3.4-5.0); ALBUMIN/GLOBULIN RATIO 0.3 (1.0-2.7); ALKALINE PHOSPHATASE 98 U/L (46-116); ANION GAP 19 mmol/L (5-15); ASPARTATE AMINO TRANSFERASE 16 U/L (15-37); BILIRUBIN,TOTAL 0.4 MG/DL (0.2-1.0); BLOOD UREA NITROGEN 91 mg/dL (7-18); CALCIUM 7.1 MG/DL (8.5-10.1); CARBON DIOXIDE 21 MMOL/L (21-32); CHLORIDE 89 MMOL/L (98-107); CREATININE 5.8 MG/DL (0.55-1.30); POTASSIUM 3.4 MMOL/L (3.5-5.1); SODIUM 129 MMOL/L (136-145)
[2019-11-18 10:59] LABS: PHOSPHORUS 9.1 MG/DL (2.5-4.9)
[2019-11-18] MEDS: DOPamine 400mg/250ml 250 ML IV SCH (11:04)
--- NOTE | 2019-11-18 11:20 | NUR ---
RD ASSESSMENT & RECOMMENDATIONS SEE CARE ACTIVITY FOR COMPLETE ASSESSMENT DAILY ESTIMATED NEEDS: Needs based on Critical care, sepsis, wound, ARF/ 57.7kg abw 22-30 kcals/kg 1301-1095 total kcals 0.8-1.3 (increase w/ renal fxn improvement) g protein/kg 46-75 g total protein 25-30 mL/kg 6499-7012 total fluid mLs NUTRITION DIAGNOSIS: 1) Swallowing difficulty r/t dysphagia as evidenced by pt is Jtube dep, currently orally intubated, NPO. 2) Altered nutrition related lab values r/t respiratory failure, DM, ARF, sepsis as evidenced by COW >45*, elev pH 7.616*, elev K (7.2*), elev creat (8.8), elev BUN (178), elev BG (228), elev LA, elev wbc (22.2*) CURRENT TF:NPO ENTERAL NUTRITION RECOMMENDATIONS: Nepro @ 40ml/hr x 22 hrs to provide 880ml, 1584kcal, 71g prot, 640ml free water * Rec Nepro at this time given ARF, +hyperkalemia w/ creat 8.8. * When medically appropriate, initiate Nepro @ 20ml/hr x 6 hrs, advance 10ml q 4-6 hrs as tolerated to goal rate * Hold 1 hr before and after Synthroid med * HOB over 30 degrees/ water flush per MD ---- W/ improved renal fxn and normalized lytes, rec Glucerna 1.2 @ 60ml/hr x 22 hrs to provide 1320ml, 1584 kcal, 79g pro, 1063ml free H2O ADDITIONAL RECOMMENDATIONS: 1) Monitor lytes and renal fxn closely -> admitted w/ creat >8.0, creat previous adm < 2.0 -> K critically elev, s/p kayexalate. -> Rec Nepro at this time 2) Wound care: add Maik BID as tolerated/ f/up w/ WC eval 3) Calibrated bedscale wt- w/ added p200 mattress + pump .
--- NOTE | 2019-11-18 11:58 | Infectious Diseases Prog Note ---
"Assessment/Plan Assessment/Plan antibiotics : linezolid, meropenem A 1. 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 renal failure improving 3. diabetes mellitus 4. CHF 5. CVA 6. respiratory failure 7. leucocytosis improving P 1. continue linezolid 2. d.c meropenem 3. start ceftriaxone 4. will follow up cultures Subjective ROS Limited/Unobtainable: Yes Allergies: Coded Allergies: No Known Allergies (Verified , 12/31/09) Objective Vital Signs Last 24 Hour Vital Signs Date Time Temp Pulse Resp B/P (MAP) Pulse Ox O2 Delivery O2 Flow Rate FiO2 11/18/19 11:08 106 22 30 11/18/19 11:04 124/66 11/18/19 10:00 101 20 97 11/18/19 09:30 101 21 127/63 (84) 97 11/18/19 09:10 101 21 40 11/18/19 09:00 102 19 127/69 (88) 97 11/18/19 08:30 102 19 130/61 (84) 97 11/18/19 08:00 30 11/18/19 08:00 99.5 102 19 132/66 (88) 97 11/18/19 08:00 Mechanical Ventilator 11/18/19 07:00 104 22 131/62 (85) 97 11/18/19 07:00 136/55 11/18/19 06:50 103 20 30 11/18/19 06:30 104 20 11/18/19 06:00 104 20 116/58 (77) 96 11/18/19 06:00 125/65 11/18/19 05:14 106 19 30 11/18/19 05:00 104 16 123/60 (81) 94 11/18/19 05:00 119/61 11/18/19 04:00 30 11/18/19 04:00 98.2 105 20 98/57 (71) 98 11/18/19 04:00 116/59 11/18/19 04:00 Mechanical Ventilator 11/18/19 04:00 108 11/18/19 03:06 112 22 30 11/18/19 03:00 141/91 11/18/19 03:00 106 31 117/79 (92) 93 11/18/19 02:30 103 28 105/52 (69) 95 3/13/20 02:00 105/52 11/18/19 02:00 105 22 103/57 (72) 98 11/18/19 01:30 97 17 94/58 (70) 98 11/18/19 01:30 96 19 30 11/18/19 01:00 96 16 108/67 (81) 98 11/18/19 01:00 94/58 11/18/19 00:30 97 18 115/60 (78) 99 11/18/19 00:00 30 11/18/19 00:00 115/60 11/18/19 00:00 96 11/18/19 00:00 98.0 103 29 106/62 (77) 96 11/18/19 00:00 Mechanical Ventilator 11/17/19 23:30 99 24 30 11/17/19 23:00 96 20 119/63 (81) 98 11/17/19 23:00 119/63 11/17/19 22:30 95 17 123/63 (83) 100 11/17/19 22:00 94 19 121/64 (83) 98 11/17/19 22:00 121/64 11/17/19 21:53 115/66 11/17/19 21:05 100 22 30 11/17/19 21:00 124/71 11/17/19 21:00 102 21 124/71 (88) 97 11/17/19 20:30 95 22 120/65 (83) 95 11/17/19 20:00 98.4 94 20 122/65 (84) 100 11/17/19 20:00 122/65 11/17/19 20:00 Mechanical Ventilator 11/17/19 20:00 96 11/17/19 20:00 30 11/17/19 19:30 98 25 60 11/17/19 19:00 119/69 11/17/19 19:00 96 27 119/69 (86) 100 11/17/19 18:30 96 27 122/69 (86) 100 11/17/19 18:00 115/70 11/17/19 18:00 94 22 115/70 (85) 98 11/17/19 17:30 93 23 122/67 (85) 95 11/17/19 17:00 92 19 126/73 (90) 96 11/17/19 17:00 121/65 11/17/19 16:53 92 26 30 11/17/19 16:30 93 19 121/65 (83) 96 11/17/19 16:00 30 11/17/19 16:00 Mechanical Ventilator 11/17/19 16:00 132/57 11/17/19 16:00 90 11/17/19 16:00 91 21 132/57 (82) 97 11/17/19 16:00 98.2 91 21 132/57 (82) 97 11/17/19 15:30 92 21 132/57 (82) 97 11/17/19 15:00 95 21 99/57 (71) 97 11/17/19 15:00 99/57 11/17/19 14:35 94 21 30 11/17/19 14:30 94 22 97/54 (68) 100 11/17/19 14:00 97/52 11/17/19 14:00 95 21 97/52 (67) 97 11/17/19 13:30 89 21 95/58 (70) 100 11/17/19 13:00 90 23 107/56 (73) 100 11/17/19 13:00 107/56 11/17/19 12:36 89 24 30 11/17/19 12:30 89 22 101/57 (72) 100 11/17/19 12:00 30 11/17/19 12:00 106/55 11/17/19 12:00 92 11/17/19 12:00 99.0 89 20 106/55 (72) 100 11/17/19 12:00 Mechanical Ventilator Height (Feet): 5 Height (Inches): 3.00 Weight (Pounds): 177 HEENT: other - intubated Respiratory/Chest: lungs clear Cardiovascular: normal rate, regular rhythm, no gallop/murmur Abdomen: soft, non tender, other - GT Extremities: no edema, other - left arm PICC Laboratory Tests Test 11/18/19 09:00 White Blood Count 14.0 K/UL (4.8-10.8) H Red Blood Count 3.55 M/UL (4.20-5.40) L Hemoglobin 9.9 G/DL (12.0-16.0) L Hematocrit 29.4 % (37.0-47.0) L Mean Corpuscular Volume 83 FL (80-99) Mean Corpuscular Hemoglobin 27.7 PG (27.0-31.0) Mean Corpuscular Hemoglobin Concent 33.5 G/DL (32.0-36.0) Red Cell Distribution Width 13.5 % (11.6-14.8) Platelet Count 157 K/UL (150-450) Mean Platelet Volume 6.1 FL (6.5-10.1) L Neutrophils (%) (Auto) % (45.0-75.0) Lymphocytes (%) (Auto) % (20.0-45.0) Monocytes (%) (Auto) % (1.0-10.0) Eosinophils (%) (Auto) % (0.0-3.0) Basophils (%) (Auto) % (0.0-2.0) Differential Total Cells Counted 100 Neutrophils % (Manual) 87 % (45-75) H Lymphocytes % (Manual) 9 % (20-45) L Monocytes % (Manual) 2 % (1-10) Eosinophils % (Manual) 2 % (0-3) Basophils % (Manual) 0 % (0-2) Band Neutrophils 0 % (0-8) Platelet Estimate Adequate Platelet Morphology Normal Hypochromasia 1+ Sodium Level 129 MMOL/L (136-145) L Potassium Level 3.4 MMOL/L (3.5-5.1) L Chloride Level 89 MMOL/L (98-107) L Carbon Dioxide Level 21 MMOL/L (21-32) Anion Gap 19 mmol/L (5-15) H Blood Urea Nitrogen 91 mg/dL (7-18) H Creatinine 5.8 MG/DL (0.55-1.30) H Estimat Glomerular Filtration Rate 8.5 mL/min (>60) Glucose Level 247 MG/DL (74-106) H Calcium Level 7.1 MG/DL (8.5-10.1) L Phosphorus Level 9.1 MG/DL (2.5-4.9) H Magnesium Level 2.5 MG/DL (1.8-2.4) H Total Bilirubin 0.4 MG/DL (0.2-1.0) Aspartate Amino Transf (AST/SGOT) 16 U/L (15-37) Alanine Aminotransferase (ALT/SGPT) 14 U/L (12-78) Alkaline Phosphatase 98 U/L (46-116) Total Protein 6.8 G/DL (6.4-8.2) Albumin 1.7 G/DL (3.4-5.0) L Globulin 5.1 g/dL Albumin/Globulin Ratio 0.3 (1.0-2.7) L Current Medications Medications (Trade) Dose Ordered Sig/Aaron Route PRN Reason Start Time Stop Time Status Last Admin Dose Admin Acetaminophen (Tylenol) 650 mg Q4H PRN GT Mild Pain/Temp > 100.5 11/17/19 07:30 12/17/19 07:29 11/17/19 08:17 Albuterol/ Ipratropium (Albuterol/ Ipratropium) 3 ml Q4H PRN HHN Shortness of Breath 11/14/19 14:15 11/19/19 14:14 Chlorhexidine Gluconate (Arabella-Hex 2%) 1 applic DAILY@2000 TOPIC 11/15/19 20:00 12/15/19 19:59 11/17/19 21:20 Dextrose (Dextrose 50%) 25 ml Q30M PRN IV Hypoglycemia 11/14/19 19:00 12/14/19 18:59 Dextrose (Dextrose 50%) 50 ml Q30M PRN IV Hypoglycemia 11/14/19 19:00 12/14/19 18:59 Dopamine HCl/ Dextrose 250 ml @ 0 mls/hr Q24H IV 11/15/19 01:15 12/15/19 01:14 11/18/19 11:04 Insulin Aspart (NovoLOG) Q6HR SUBQ 11/15/19 00:00 12/14/19 20:59 11/18/19 01:06 Levetiracetam 100 ml @ 400 mls/hr Q12HR IVPB 11/14/19 15:00 12/14/19 14:59 11/18/19 09:02 Linezolid 300 ml @ 300 mls/hr Q12H IVPB 11/15/19 15:00 11/22/19 14:59 11/18/19 03:53 Lorazepam (Ativan 2mg/ml 1ml) 1 mg Q4H PRN IV For Anxiety 11/17/19 18:45 11/24/19 18:44 11/17/19 23:50 Lorazepam (Ativan 2mg/ml 1ml) 2 mg Q1HR PRN IV For Seizures 11/14/19 14:15 11/21/19 14:14 11/16/19 20:27 Meropenem 500 mg/ Sodium Chloride 55 ml @ 110 mls/hr Q24H IVPB 11/15/19 17:00 11/20/19 16:59 11/17/19 17:16 Pantoprazole (Protonix) 40 mg DAILY IVP 11/14/19 14:15 12/14/19 14:14 11/18/19 09:02 Sodium Chloride 1,000 ml @ 75 mls/hr [id number] IV 11/18/19 17:15 12/18/19 17:14 Tyrel Prieto MD Nov 18, 2019 11:58"
--- NOTE | 2019-11-18 12:41 | Surgery Progress Note ---
Surgery Progress Note Subjective Additional Comments ill appearing on support lab noted Objective Last 24 Hour Vital Signs Date Time Temp Pulse Resp B/P (MAP) Pulse Ox O2 Delivery O2 Flow Rate FiO2 11/18/19 11:08 106 22 30 11/18/19 11:04 124/66 11/18/19 10:00 101 20 97 11/18/19 09:30 101 21 127/63 (84) 97 11/18/19 09:10 101 21 40 11/18/19 09:00 102 19 127/69 (88) 97 11/18/19 08:30 102 19 130/61 (84) 97 11/18/19 08:00 30 11/18/19 08:00 99.5 102 19 132/66 (88) 97 11/18/19 08:00 Mechanical Ventilator 11/18/19 07:00 104 22 131/62 (85) 97 11/18/19 07:00 136/55 11/18/19 06:50 103 20 30 11/18/19 06:30 104 20 11/18/19 06:00 104 20 116/58 (77) 96 11/18/19 06:00 125/65 11/18/19 05:14 106 19 30 11/18/19 05:00 104 16 123/60 (81) 94 11/18/19 05:00 119/61 11/18/19 04:00 30 11/18/19 04:00 98.2 105 20 98/57 (71) 98 11/18/19 04:00 116/59 11/18/19 04:00 Mechanical Ventilator 11/18/19 04:00 108 11/18/19 03:06 112 22 30 11/18/19 03:00 141/91 11/18/19 03:00 106 31 117/79 (92) 93 11/18/19 02:30 103 28 105/52 (69) 95 11/18/19 02:00 105/52 11/18/19 02:00 105 22 103/57 (72) 98 11/18/19 01:30 97 17 94/58 (70) 98 11/18/19 01:30 96 19 30 11/18/19 01:00 96 16 108/67 (81) 98 11/18/19 01:00 94/58 11/18/19 00:30 97 18 115/60 (78) 99 11/18/19 00:00 30 11/18/19 00:00 115/60 11/18/19 00:00 96 11/18/19 00:00 98.0 103 29 106/62 (77) 96 11/18/19 00:00 Mechanical Ventilator 11/17/19 23:30 99 24 30 11/17/19 23:00 96 20 119/63 (81) 98 11/17/19 23:00 119/63 11/17/19 22:30 95 17 123/63 (83) 100 11/17/19 22:00 94 19 121/64 (83) 98 11/17/19 22:00 121/64 11/17/19 21:53 115/66 11/17/19 21:05 100 22 30 11/17/19 21:00 124/71 11/17/19 21:00 102 21 124/71 (88) 97 11/17/19 20:30 95 22 120/65 (83) 95 11/17/19 20:00 98.4 94 20 122/65 (84) 100 11/17/19 20:00 122/65 11/17/19 20:00 Mechanical Ventilator 11/17/19 20:00 96 11/17/19 20:00 30 11/17/19 19:30 98 25 60 11/17/19 19:00 119/69 11/17/19 19:00 96 27 119/69 (86) 100 11/17/19 18:30 96 27 122/69 (86) 100 11/17/19 18:00 115/70 11/17/19 18:00 94 22 115/70 (85) 98 11/17/19 17:30 93 23 122/67 (85) 95 11/17/19 17:00 92 19 126/73 (90) 96 11/17/19 17:00 121/65 11/17/19 16:53 92 26 30 11/17/19 16:30 93 19 121/65 (83) 96 11/17/19 16:00 30 11/17/19 16:00 Mechanical Ventilator 11/17/19 16:00 132/57 11/17/19 16:00 90 11/17/19 16:00 91 21 132/57 (82) 97 11/17/19 16:00 98.2 91 21 132/57 (82) 97 11/17/19 15:30 92 21 132/57 (82) 97 11/17/19 15:00 95 21 99/57 (71) 97 11/17/19 15:00 99/57 11/17/19 14:35 94 21 30 11/17/19 14:30 94 22 97/54 (68) 100 11/17/19 14:00 97/52 11/17/19 14:00 95 21 97/52 (67) 97 11/17/19 13:30 89 21 95/58 (70) 100 11/17/19 13:00 90 23 107/56 (73) 100 11/17/19 13:00 107/56 I&O Intake and Output 11/17/19 11/18/19 19:00 07:00 Intake Total 2075.131 ml 620.609 ml Output Total 1420 ml 1275 ml Balance 655.131 ml -654.391 ml Intake Free Water 50 ml IV Total 2025.131 ml 620.609 ml Output Urine Total 1420 ml 1275 ml Dressing: other Wound: other Drains: other Cardiovascular: RSR Respiratory: decreased breath sounds Abdomen: soft, non-tender, present bowel sounds Extremities: no cyanosis Laboratory Tests Test 11/18/19 09:00 White Blood Count 14.0 K/UL (4.8-10.8) H Red Blood Count 3.55 M/UL (4.20-5.40) L Hemoglobin 9.9 G/DL (12.0-16.0) L Hematocrit 29.4 % (37.0-47.0) L Mean Corpuscular Volume 83 FL (80-99) Mean Corpuscular Hemoglobin 27.7 PG (27.0-31.0) Mean Corpuscular Hemoglobin Concent 33.5 G/DL (32.0-36.0) Red Cell Distribution Width 13.5 % (11.6-14.8) Platelet Count 157 K/UL (150-450) Mean Platelet Volume 6.1 FL (6.5-10.1) L Neutrophils (%) (Auto) % (45.0-75.0) Lymphocytes (%) (Auto) % (20.0-45.0) Monocytes (%) (Auto) % (1.0-10.0) Eosinophils (%) (Auto) % (0.0-3.0) Basophils (%) (Auto) % (0.0-2.0) Differential Total Cells Counted 100 Neutrophils % (Manual) 87 % (45-75) H Lymphocytes % (Manual) 9 % (20-45) L Monocytes % (Manual) 2 % (1-10) Eosinophils % (Manual) 2 % (0-3) Basophils % (Manual) 0 % (0-2) Band Neutrophils 0 % (0-8) Platelet Estimate Adequate Platelet Morphology Normal Hypochromasia 1+ Sodium Level 129 MMOL/L (136-145) L Potassium Level 3.4 MMOL/L (3.5-5.1) L Chloride Level 89 MMOL/L (98-107) L Carbon Dioxide Level 21 MMOL/L (21-32) Anion Gap 19 mmol/L (5-15) H Blood Urea Nitrogen 91 mg/dL (7-18) H Creatinine 5.8 MG/DL (0.55-1.30) H Estimat Glomerular Filtration Rate 8.5 mL/min (>60) Glucose Level 247 MG/DL (74-106) H Calcium Level 7.1 MG/DL (8.5-10.1) L Phosphorus Level 9.1 MG/DL (2.5-4.9) H Magnesium Level 2.5 MG/DL (1.8-2.4) H Total Bilirubin 0.4 MG/DL (0.2-1.0) Aspartate Amino Transf (AST/SGOT) 16 U/L (15-37) Alanine Aminotransferase (ALT/SGPT) 14 U/L (12-78) Alkaline Phosphatase 98 U/L (46-116) Total Protein 6.8 G/DL (6.4-8.2) Albumin 1.7 G/DL (3.4-5.0) L Globulin 5.1 g/dL Albumin/Globulin Ratio 0.3 (1.0-2.7) L Plan Problems: (1) Decubitus skin ulcer Assessment & Plan: Pt presented on admission with multiple pressure injuries. DTPI sacrum . Base of injury is indurated,purple with areas that are maroon in colour. An area of fluctuance noted at sacrococcygeal area. Borders are irregular (L)8.5cm x (W)9.3cm.Historical scar also noted within base of Sacral pressure injury. DTPI medial L heel. Base of injury fluctuant,maroon with surrounding non- blanching erythema. (L)1.7cm x (W)1.6cm. DTPI medial R heel. Base of injury is maroon and fluctuant(L)3.1cm x (W)2.5cm. Tx.Plan: Apply Moisture Barrier Paste to Sacrum. Cover with Optifoam drsg. Change every 3 days and prn. Apply Cavilon Skin Barrier to both heels. Cover each heel with Optifoam drsg. Change every 7 days and prn. APM/VALERIE Mattress. Reposition at least every 2 hours or as tolerated. Off-load heels with pillow. Patient is at high risk for deterioration of wounds opening of DTI and formation of worsening decubitus will need close monitoring and significant amount of care to ensure improvement. Nutritional optimization. Will follow with recommendations thank you (2) Failure to thrive in adult Assessment & Plan: Not tolerating tube feeds regurgitation high residuals DAILY ESTIMATED NEEDS: Needs based on Critical care, sepsis, wound, ARF/ 57.7kg abw 22-30 kcals/kg 6455-3721 total kcals 0.8-1.3 (increase w/ renal fxn improvement) g protein/kg 46-75 g total protein 25-30 mL/kg 6263-3088 total fluid mLs NUTRITION DIAGNOSIS: 1) Swallowing difficulty r/t dysphagia as evidenced by pt is Jtube dep, currently orally intubated, NPO. 2) Altered nutrition related lab values r/t respiratory failure, DM, ARF, sepsis as evidenced by COW >45*, elev pH 7.616*, elev K (7.2*), elev creat (8.8), elev BUN (178), elev BG (228), elev LA, elev wbc (22.2*) CURRENT TF:NPO ENTERAL NUTRITION RECOMMENDATIONS: Nepro @ 40ml/hr x 22 hrs to provide 880ml, 1584kcal, 71g prot, 640ml free water * Rec Nepro at this time given ARF, +hyperkalemia w/ creat 8.8. * When medically appropriate, initiate Nepro @ 20ml/hr x 6 hrs, advance 10ml q 4 -6 hrs as tolerated to goal rate * Hold 1 hr before and after Synthroid med * HOB over 30 degrees/ water flush per MD ---- W/ improved renal fxn and normalized lytes, rec Glucerna 1.2 @ 60ml/hr x 22 hrs to provide 1320ml, 1584 kcal, 79g pro, 1063ml free H2O ADDITIONAL RECOMMENDATIONS: 1) Monitor lytes and renal fxn closely -> admitted w/ creat > 8.0, creat previous adm < 2.0 -> K critically elev, s/p kayexalate. 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 (3) Acute respiratory failure Assessment & Plan: As per pulmonology available if trach needs Jared Mcarthur Nov 18, 2019 12:41
--- NOTE | 2019-11-18 14:16 | NUR ---
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
--- NOTE | 2019-11-18 14:42 | General Progress Note ---
Assessment/Plan Problem List: (1) Shock ICD Codes: R57.9 - Shock, unspecified SNOMED: 85520030 (2) Anemia due to acute blood loss ICD Codes: D62 - Acute posthemorrhagic anemia SNOMED: 591250237 (3) Hyperkalemia ICD Codes: E87.5 - Hyperkalemia SNOMED: 29883374 (4) Recurrent seizures ICD Codes: G40.909 - Epilepsy, unspecified, not intractable, without status epilepticus SNOMED: 39207420, 47497402 (5) Aspiration pneumonia ICD Codes: J69.0 - Pneumonitis due to inhalation of food and vomit SNOMED: 274253107 (6) ARF (acute renal failure) ICD Codes: N17.9 - Acute kidney failure, unspecified SNOMED: 81794906 (7) ATN (acute tubular necrosis) ICD Codes: N17.0 - Acute kidney failure with tubular necrosis SNOMED: 12307385 Status: stable Assessment/Plan: cont vent support resp care suctioning as needed iv abx pressors ivf monitor renal fxn monitor labs and cbc transfuse as needed critical and guarded grim prognosis family considering withdrawl of care Subjective ROS Limited/Unobtainable: Yes Constitutional: Reports: malaise, weakness HEENT: Reports: no symptoms Cardiovascular: Reports: edema Respiratory: Reports: shortness of breath, sputum Gastrointestinal/Abdominal: Reports: difficulty swallowing Genitourinary: Reports: no symptoms Neurologic/Psychiatric: Reports: pre-existing deficit, seizure Endocrine: Reports: no symptoms Hematologic/Lymphatic: Reports: anemia Allergies: Coded Allergies: No Known Allergies (Verified , 12/31/09) All Systems: reviewed and negative except above Subjective still hypotensive on low dose dopamine. good uop. no fevers. GT replaced. renal fxn unchanged. family declined HD. renal fxn and urine output improving. Objective Last 24 Hour Vital Signs Date Time Temp Pulse Resp B/P (MAP) Pulse Ox O2 Delivery O2 Flow Rate FiO2 11/18/19 14:00 99 21 117/63 (81) 98 11/18/19 13:04 101 21 30 11/18/19 13:00 101 20 110/64 (79) 98 11/18/19 12:30 99 19 121/67 (85) 98 11/18/19 12:01 98 11/18/19 12:00 Mechanical Ventilator 11/18/19 12:00 98.5 99 19 124/64 (84) 97 11/18/19 12:00 30 11/18/19 11:30 102 20 128/63 (84) 97 11/18/19 11:08 106 22 30 11/18/19 11:04 124/66 11/18/19 11:00 103 33 124/66 (85) 99 11/18/19 10:00 101 20 97 11/18/19 09:30 101 21 127/63 (84) 97 11/18/19 09:10 101 21 40 11/18/19 09:00 102 19 127/69 (88) 97 11/18/19 08:30 102 19 130/61 (84) 97 11/18/19 08:00 30 11/18/19 08:00 99.5 102 19 132/66 (88) 97 11/18/19 08:00 Mechanical Ventilator 11/18/19 07:30 101 11/18/19 07:00 104 22 131/62 (85) 97 11/18/19 07:00 136/55 11/18/19 06:50 103 20 30 11/18/19 06:30 104 20 11/18/19 06:00 104 20 116/58 (77) 96 11/18/19 06:00 125/65 11/18/19 05:14 106 19 30 11/18/19 05:00 104 16 123/60 (81) 94 11/18/19 05:00 119/61 11/18/19 04:00 30 11/18/19 04:00 98.2 105 20 98/57 (71) 98 11/18/19 04:00 116/59 11/18/19 04:00 Mechanical Ventilator 11/18/19 04:00 108 11/18/19 03:06 112 22 30 11/18/19 03:00 141/91 11/18/19 03:00 106 31 117/79 (92) 93 11/18/19 02:30 103 28 105/52 (69) 95 11/18/19 02:00 105/52 11/18/19 02:00 105 22 103/57 (72) 98 11/18/19 01:30 97 17 94/58 (70) 98 11/18/19 01:30 96 19 30 11/18/19 01:00 96 16 108/67 (81) 98 11/18/19 01:00 94/58 11/18/19 00:30 97 18 115/60 (78) 99 11/18/19 00:00 30 11/18/19 00:00 115/60 11/18/19 00:00 96 11/18/19 00:00 98.0 103 29 106/62 (77) 96 11/18/19 00:00 Mechanical Ventilator 11/17/19 23:30 99 24 30 11/17/19 23:00 96 20 119/63 (81) 98 11/17/19 23:00 119/63 11/17/19 22:30 95 17 123/63 (83) 100 11/17/19 22:00 94 19 121/64 (83) 98 11/17/19 22:00 121/64 11/17/19 21:53 115/66 11/17/19 21:05 100 22 30 11/17/19 21:00 124/71 11/17/19 21:00 102 21 124/71 (88) 97 11/17/19 20:30 95 22 120/65 (83) 95 11/17/19 20:00 98.4 94 20 122/65 (84) 100 11/17/19 20:00 122/65 11/17/19 20:00 Mechanical Ventilator 11/17/19 20:00 96 11/17/19 20:00 30 11/17/19 19:30 98 25 60 11/17/19 19:00 119/69 11/17/19 19:00 96 27 119/69 (86) 100 11/17/19 18:30 96 27 122/69 (86) 100 11/17/19 18:00 115/70 11/17/19 18:00 94 22 115/70 (85) 98 11/17/19 17:30 93 23 122/67 (85) 95 11/17/19 17:00 92 19 126/73 (90) 96 11/17/19 17:00 121/65 11/17/19 16:53 92 26 30 11/17/19 16:30 93 19 121/65 (83) 96 11/17/19 16:00 30 11/17/19 16:00 Mechanical Ventilator 11/17/19 16:00 132/57 11/17/19 16:00 90 11/17/19 16:00 91 21 132/57 (82) 97 11/17/19 16:00 98.2 91 21 132/57 (82) 97 11/17/19 15:30 92 21 132/57 (82) 97 11/17/19 15:00 95 21 99/57 (71) 97 11/17/19 15:00 99/57 Intake and Output 11/17/19 11/18/19 19:00 07:00 Intake Total 2075.131 ml 620.609 ml Output Total 1420 ml 1275 ml Balance 655.131 ml -654.391 ml Intake Free Water 50 ml IV Total 2025.131 ml 620.609 ml Output Urine Total 1420 ml 1275 ml Laboratory Tests 11/18/19 09:00: White Blood Count 14.0H, Red Blood Count 3.55L, Hemoglobin 9.9L, Hematocrit 29.4L, Mean Corpuscular Volume 83, Mean Corpuscular Hemoglobin 27.7, Mean Corpuscular Hemoglobin Concent 33.5, Red Cell Distribution Width 13.5, Platelet Count 157, Mean Platelet Volume 6.1L, Neutrophils (%) (Auto) , Lymphocytes (%) ( Auto) , Monocytes (%) (Auto) , Eosinophils (%) (Auto) , Basophils (%) (Auto) , Differential Total Cells Counted 100, Neutrophils % (Manual) 87H, Lymphocytes % (Manual) 9L, Monocytes % (Manual) 2, Eosinophils % (Manual) 2, Basophils % ( Manual) 0, Band Neutrophils 0, Platelet Estimate Adequate, Platelet Morphology Normal, Hypochromasia 1+, Sodium Level 129L, Potassium Level 3.4L, Chloride Level 89L, Carbon Dioxide Level 21, Anion Gap 19H, Blood Urea Nitrogen 91H, Creatinine 5.8H, Estimat Glomerular Filtration Rate 8.5, Glucose Level 247H, Calcium Level 7.1L, Phosphorus Level 9.1H, Magnesium Level 2.5H, Total Bilirubin 0.4, Aspartate Amino Transf (AST/SGOT) 16, Alanine Aminotransferase ( ALT/SGPT) 14, Alkaline Phosphatase 98, Total Protein 6.8, Albumin 1.7L, Globulin 5.1, Albumin/Globulin Ratio 0.3L Height (Feet): 5 Height (Inches): 3.00 Weight (Pounds): 177 Objective General Appearance: WD/WN, lethargic Neck: normal alignment, supple, normal inspection Cardiovascular: normal rate, regular rhythm Respiratory/Chest: no respiratory distress, no accessory muscle use, rhonchi - bilaterally Abdomen: normal bowel sounds, non tender, soft, no organomegaly, no mass Extremities: normal range of motion, non-tender Neurologic: unresponsive, aphasia Jeffrey Crowder MD Nov 18, 2019 14:41
[2019-11-18] MEDS: Acetaminophen 650mg/20.3ml GT PRN ×2 (15:46→20:33)
--- NOTE | 2019-11-18 15:53 | NUR ---
NURSE NOTES: Patient's temperature at 1545 was 101.2 degrees Fahrenheit checked both in left and right axilla. Ice packs were placed on patient and PRN Tylenol was given.
[2019-11-18] MEDS: cefTRIAXone 1 GM in D5W 55 ML IVPB SCH (16:45)
--- NOTE | 2019-11-18 18:23 | NUR ---
NURSE NOTES: Gave bed bath to patient and repositioned, patient tolerated well, no signs of acute distress, patient is afebrile. Will continue to monitor.
--- NOTE | 2019-11-18 19:30 | NUR ---
NURSE NOTES: Received report from FELY Schmid. Patient in bed with eyes closed, Noted with ETT 7.5/24cm with vent setting AC 12, VT 350, Peep 5 and FiO2 30%. O2 sat 95% on the monitor. No s/s of acute distress noted. G-tube intact and clamped, NPO, no residual. Left upper arm PICC line intact infusing with Dopamine 6mcg/kg/min. HR 99 on the monitor.Code status DNR/DNI, comfort measure continued. kept dry, clean and comfortable. Temp 99.6 axillary, cooling measure provided. Contact and seizure precaution maintain and observed. P200 mattress for wound management. Will continue plan of care.
--- NOTE | 2019-11-18 20:00 | NUR ---
NURSE NOTES: noted patient with multiple close blister on left upper thigh, left groin area, left lower abdomen and left upper arm will continue to monitor patient Q shift. Charge nurse aware.
[2019-11-18] MEDS: Dyna-Hex 2% Top Sol 2oz TOPIC SCH (20:31)
--- NOTE | 2019-11-18 22:00 | NUR ---
NURSE NOTES: Repositioned. oral care provided. suction patient. comfort measure provided
--- NOTE | 2019-11-18 22:01 | General Progress Note ---
Assessment/Plan Status: stable Assessment/Plan: Assessment - h/o gastroparesis and GT feed intolerance - GJ tube dislodged and replaced with G tube - Resp failure, intubated - OBS - Sepeis, shock - CRF - Poor Px Recommendations - OK to use GT for meds. Hold feeds - abx supportive care - elevate HOB - wean off pressors and vent as tolerated - can re-address G to J conversion once stabilized Subjective Allergies: Coded Allergies: No Known Allergies (Verified , 12/31/09) Subjective Above noted d/w RN Objective Last 24 Hour Vital Signs Date Time Temp Pulse Resp B/P (MAP) Pulse Ox O2 Delivery O2 Flow Rate FiO2 11/18/19 21:22 91 21 30 11/18/19 21:03 99.0 11/18/19 19:00 137/70 11/18/19 19:00 98 29 137/70 (92) 96 11/18/19 18:57 99 24 30 11/18/19 18:00 92 24 122/84 (97) 96 11/18/19 18:00 122/56 11/18/19 17:00 125/56 11/18/19 17:00 94 17 116/70 (85) 97 11/18/19 16:52 93 24 30 11/18/19 16:01 94 11/18/19 16:00 Mechanical Ventilator 11/18/19 16:00 123/62 11/18/19 16:00 30 11/18/19 16:00 101.2 94 17 121/62 (81) 98 11/18/19 15:30 96 19 117/62 (80) 98 11/18/19 15:00 97 17 121/53 (75) 98 11/18/19 15:00 121/53 11/18/19 14:42 99 25 30 11/18/19 14:00 116/65 11/18/19 14:00 99 21 117/63 (81) 98 11/18/19 13:04 101 21 30 11/18/19 13:00 101 20 110/64 (79) 98 11/18/19 13:00 116/58 11/18/19 12:30 99 19 121/67 (85) 98 11/18/19 12:01 98 11/18/19 12:00 Mechanical Ventilator 11/18/19 12:00 98.5 99 19 124/64 (84) 97 11/18/19 12:00 30 11/18/19 12:00 124/64 11/18/19 11:30 102 20 128/63 (84) 97 11/18/19 11:08 106 22 30 11/18/19 11:04 124/66 11/18/19 11:00 103 33 124/66 (85) 99 11/18/19 10:00 101 20 97 11/18/19 09:30 101 21 127/63 (84) 97 11/18/19 09:10 101 21 40 11/18/19 09:00 102 19 127/69 (88) 97 11/18/19 08:30 102 19 130/61 (84) 97 11/18/19 08:00 30 11/18/19 08:00 99.5 102 19 132/66 (88) 97 11/18/19 08:00 Mechanical Ventilator 11/18/19 07:30 101 11/18/19 07:00 104 22 131/62 (85) 97 11/18/19 07:00 136/55 11/18/19 06:50 103 20 30 11/18/19 06:30 104 20 11/18/19 06:00 104 20 116/58 (77) 96 11/18/19 06:00 125/65 11/18/19 05:14 106 19 30 11/18/19 05:00 104 16 123/60 (81) 94 11/18/19 05:00 119/61 11/18/19 04:00 30 11/18/19 04:00 98.2 105 20 98/57 (71) 98 11/18/19 04:00 116/59 11/18/19 04:00 Mechanical Ventilator 11/18/19 04:00 108 11/18/19 03:06 112 22 30 11/18/19 03:00 141/91 11/18/19 03:00 106 31 117/79 (92) 93 11/18/19 02:30 103 28 105/52 (69) 95 11/18/19 02:00 105/52 11/18/19 02:00 105 22 103/57 (72) 98 11/18/19 01:30 97 17 94/58 (70) 98 11/18/19 01:30 96 19 30 11/18/19 01:00 96 16 108/67 (81) 98 11/18/19 01:00 94/58 11/18/19 00:30 97 18 115/60 (78) 99 11/18/19 00:00 30 11/18/19 00:00 115/60 11/18/19 00:00 96 11/18/19 00:00 98.0 103 29 106/62 (77) 96 11/18/19 00:00 Mechanical Ventilator 11/17/19 23:30 99 24 30 11/17/19 23:00 96 20 119/63 (81) 98 11/17/19 23:00 119/63 11/17/19 22:30 95 17 123/63 (83) 100 Intake and Output 11/17/19 11/18/19 19:00 07:00 Intake Total 2075.131 ml 620.609 ml Output Total 1420 ml 1275 ml Balance 655.131 ml -654.391 ml Intake Free Water 50 ml IV Total 2025.131 ml 620.609 ml Output Urine Total 1420 ml 1275 ml Laboratory Tests 11/18/19 09:00: White Blood Count 14.0H, Red Blood Count 3.55L, Hemoglobin 9.9L, Hematocrit 29.4L, Mean Corpuscular Volume 83, Mean Corpuscular Hemoglobin 27.7, Mean Corpuscular Hemoglobin Concent 33.5, Red Cell Distribution Width 13.5, Platelet Count 157, Mean Platelet Volume 6.1L, Neutrophils (%) (Auto) , Lymphocytes (%) ( Auto) , Monocytes (%) (Auto) , Eosinophils (%) (Auto) , Basophils (%) (Auto) , Differential Total Cells Counted 100, Neutrophils % (Manual) 87H, Lymphocytes % (Manual) 9L, Monocytes % (Manual) 2, Eosinophils % (Manual) 2, Basophils % ( Manual) 0, Band Neutrophils 0, Platelet Estimate Adequate, Platelet Morphology Normal, Hypochromasia 1+, Sodium Level 129L, Potassium Level 3.4L, Chloride Level 89L, Carbon Dioxide Level 21, Anion Gap 19H, Blood Urea Nitrogen 91H, Creatinine 5.8H, Estimat Glomerular Filtration Rate 8.5, Glucose Level 247H, Calcium Level 7.1L, Phosphorus Level 9.1H, Magnesium Level 2.5H, Total Bilirubin 0.4, Aspartate Amino Transf (AST/SGOT) 16, Alanine Aminotransferase ( ALT/SGPT) 14, Alkaline Phosphatase 98, Total Protein 6.8, Albumin 1.7L, Globulin 5.1, Albumin/Globulin Ratio 0.3L Height (Feet): 5 Height (Inches): 3.00 Weight (Pounds): 177 Objective Debilitated AA woman in ICU on vent NCAT (+) ETT coarse BS/karol RR abd soft, NT, GT in good position no edema Non verbal Darrell Griffith MD Nov 18, 2019 22:01
[2019-11-19] VITALS (52 sets, daily range): BP systolic 55–162; BP diastolic 33–103
--- NOTE | 2019-11-19 | NUR ---
NURSE NOTES: Continue on Dopamine drip at 6mcg/min BP 133/73 HR 84. perera draining. no moaning no facial grimaces. will continue plan of care.
[2019-11-19] MEDS: NovoLOG Insulin Flexpen SUBQ SCH ×4 (00:45→17:30)
--- NOTE | 2019-11-19 02:00 | NUR ---
NURSE NOTES: Bed bath given tolerated well
[2019-11-19] MEDS: LORazepam Inj 2mg/ml 1ml IV PRN ×2 (02:04→19:57)
[2019-11-19] MEDS: DOPamine 400mg/250ml 250 ML IV SCH ×2 (02:04→19:56)
--- NOTE | 2019-11-19 04:00 | NUR ---
NURSE NOTES: Titrated Dopamine drip to 2mcg/min BP 158/82. Barron draining. no moaning no facial grimaces. will continue plan of acre.
--- NOTE | 2019-11-19 06:00 | NUR ---
NURSE NOTES: Continue on Dopamine drip at 2mcg/min BP 135/75 HR 92. Barron draining. no moaning no facial grimaces. will continue plan of care. no s/s of acute distress noted..
--- NOTE | 2019-11-19 06:30 | NUR ---
NURSE NOTES: Seen and examined by Dr Crowder no new order at this time. No s/s of hypo/hyperglycemia.
--- NOTE | 2019-11-19 07:00 | NUR ---
NURSE NOTES: Titrated Dopamine drip at 6mcg/min BP 77/46 HR 93. Barron draining. no moaning no facial grimaces. will continue plan of care. Seizure precaution maintained and observed.
--- NOTE | 2019-11-19 07:35 | NUR ---
HAND-OFF: Report given to Jenni GEIGER.
--- NOTE | 2019-11-19 07:36 | NUR ---
NURSE NOTES: Received patient from FELY Gomez. Patient opens eyes to name/shaking but does not track and does not attempt to communicate. Patient orally intubated with ET tube 7.5cm with 24cm at the lip line and ventilator setting of AC 14, tidal volume 350, FiO2 30%, and PEEP 5. Patient tolerating with no sign of acute distress. Will follow up with RT regarding weaning trial. Patient NPO at this time per family request. Patient has gastrostomy tube that is patent, asymptomatic, and clamped at this time. No residual. patient has perera for urine retention with pale yellow urine output. Patient has sacral partial thickness pressure injury, left heel DTI, right hip blister and abdomen/right thigh multiple small blisters. Patient has generalized edema noted. Patient has left upper arm PICC line that is patent, asymptomatic, and dressing dry and intact. Patient on dopamine at 6mcg/kg/min. Patient on NS at 75mL/hr. Patient has potassium of 3.4 this morning. Will ensure the tissue packer is aware when she rounds on the patient. Patient showing no sign of acute distress. Patient bed in low position with bed alarm on and call light in reach. Patient repositioned and oral care performed at this time. Will continue to monitor and titrate dopamine per protocol.
--- NOTE | 2019-11-19 09:01 | Critical Care Progress Note ---
Assessment/Plan Assessment/Plan Respiratory failure, acute on chronic. Alkalemia due to hyperventilation, chronic metabolic alkalosis, chronic respiratory acidosis, leukocytosis, sepsis, anemia, hyponatremia, hyperkalemia, chronic renal failure, severe protein-calorie malnutrition. hyponatremia PLAN ins and outs noted care noted and reviewed IV antibiotics- cultures noted respiratory care reviewed Ventilatory support discuss wean meds noted SNF meds supportive care suction and monitor imaging off load oxygen therapy and titrate prognosis guarded monitor lytes; renal noted still with significant elevation in WBC medications/laboratory data/nursing notes/ICU care reviewed in detail note reviewed and edited care discussed with RN and RT ICU time spent >40 minutes Critical Care - Subjective Interval Events: on vent care noted altered on oxygen ICU care noted ROS Limited/Unobtainable: Yes Condition: critical EKG Rhythm: Sinus Rhythm Residuals: minimal Tube Feeding Tolerated: yes I&O: Intake and Output 11/18/19 11/19/19 19:00 07:00 Intake Total 770.718 ml 1328.465 ml Output Total 1130 ml 975 ml Balance -359.282 ml 353.465 ml IV Total 770.718 ml 1328.465 ml Output Urine Total 1130 ml 975 ml # Bowel Movements 2 Critical Care - Objective ET-Tube: 7.5 ET Position: 24 Last 24 Hour Vital Signs Date Time Temp Pulse Resp B/P (MAP) Pulse Ox O2 Delivery O2 Flow Rate FiO2 11/19/19 07:42 97 26 30 11/19/19 07:30 101 25 141/82 (101) 99 11/19/19 07:20 98 21 104/78 (87) 93 11/19/19 07:16 89 17 55/33 (40) 100 11/19/19 07:14 88 20 86/54 (65) 100 11/19/19 07:00 76/41 11/19/19 07:00 87 17 76/41 (53) 100 11/19/19 06:30 95 24 135/75 (95) 100 11/19/19 06:30 88 17 11/19/19 06:00 135/75 11/19/19 06:00 94 30 154/95 (114) 100 11/19/19 05:00 160/80 11/19/19 05:00 91 15 160/80 (106) 100 11/19/19 05:00 96 32 30 11/19/19 04:30 89 16 157/79 (105) 100 11/19/19 04:00 93 11/19/19 04:00 Mechanical Ventilator 11/19/19 04:00 158/82 11/19/19 04:00 98.0 92 19 158/82 (107) 100 11/19/19 04:00 30 11/19/19 03:30 92 20 162/79 (106) 100 11/19/19 03:02 91 21 30 11/19/19 03:00 162/79 11/19/19 03:00 95 20 158/81 (106) 100 11/19/19 02:41 88 20 94/52 (66) 100 11/19/19 02:04 132/94 11/19/19 02:00 97 29 132/94 (107) 100 11/19/19 02:00 110/54 11/19/19 01:30 87 17 124/76 (92) 100 11/19/19 01:00 124/76 11/19/19 01:00 83 20 142/73 (96) 100 11/19/19 00:30 83 19 133/73 (93) 100 11/19/19 00:00 30 11/19/19 00:00 86 11/19/19 00:00 133/73 11/19/19 00:00 98.7 85 20 127/72 (90) 100 11/19/19 00:00 Mechanical Ventilator 11/18/19 23:30 86 17 127/74 (91) 100 11/18/19 23:04 89 25 30 11/18/19 23:00 87 16 131/81 (98) 100 11/18/19 23:00 127/74 11/18/19 22:30 90 21 126/74 (91) 100 11/18/19 22:00 126/74 11/18/19 22:00 90 22 146/75 (98) 100 11/18/19 21:30 95 19 145/74 (97) 100 11/18/19 21:22 91 21 30 11/18/19 21:03 99.0 11/18/19 21:00 93 20 138/72 (94) 100 11/18/19 21:00 145/74 11/18/19 20:30 96 21 139/72 (94) 100 11/18/19 20:00 100 11/18/19 20:00 139/72 11/18/19 20:00 99.4 99 30 139/70 (93) 100 11/18/19 20:00 30 11/18/19 20:00 Mechanical Ventilator 11/18/19 19:00 137/70 11/18/19 19:00 98 29 137/70 (92) 96 11/18/19 18:57 99 24 30 11/18/19 18:00 92 24 122/84 (97) 96 11/18/19 18:00 122/56 11/18/19 17:00 125/56 11/18/19 17:00 94 17 116/70 (85) 97 11/18/19 16:52 93 24 30 11/18/19 16:01 94 11/18/19 16:00 Mechanical Ventilator 11/18/19 16:00 123/62 11/18/19 16:00 30 11/18/19 16:00 101.2 94 17 121/62 (81) 98 11/18/19 15:30 96 19 117/62 (80) 98 11/18/19 15:00 97 17 121/53 (75) 98 11/18/19 15:00 121/53 11/18/19 14:42 99 25 30 11/18/19 14:00 116/65 11/18/19 14:00 99 21 117/63 (81) 98 11/18/19 13:04 101 21 30 11/18/19 13:00 101 20 110/64 (79) 98 11/18/19 13:00 116/58 11/18/19 12:30 99 19 121/67 (85) 98 11/18/19 12:01 98 11/18/19 12:00 Mechanical Ventilator 11/18/19 12:00 98.5 99 19 124/64 (84) 97 11/18/19 12:00 30 11/18/19 12:00 124/64 11/18/19 11:30 102 20 128/63 (84) 97 11/18/19 11:08 106 22 30 11/18/19 11:04 124/66 11/18/19 11:00 103 33 124/66 (85) 99 11/18/19 10:00 101 20 97 11/18/19 09:30 101 21 127/63 (84) 97 11/18/19 09:10 101 21 40 11/18/19 09:00 102 19 127/69 (88) 97 Labs: Labs Test 11/16/19 17:02 11/17/19 03:35 11/18/19 09:00 Arterial Blood pH 7.458 (7.350-7.450) Arterial Blood Partial Pressure CO2 34.9 mmHg (35.0-45.0) Arterial Blood Partial Pressure O2 58.1 mmHg (75.0-100.0) Arterial Blood HCO3 24.2 mmol/L (22.0-26.0) Arterial Blood Oxygen Saturation 88.3 % (95-100) Arterial Blood Base Excess 0.5 (-2-2) Danilo Test Positive Sodium Level 129 MMOL/L (136-145) 129 MMOL/L (136-145) Potassium Level 3.4 MMOL/L (3.5-5.1) 3.4 MMOL/L (3.5-5.1) Chloride Level 88 MMOL/L (98-107) 89 MMOL/L (98-107) Carbon Dioxide Level 24 MMOL/L (21-32) 21 MMOL/L (21-32) Anion Gap 17 mmol/L (5-15) 19 mmol/L (5-15) Blood Urea Nitrogen 110 mg/dL (7-18) 91 mg/dL (7-18) Creatinine 6.5 MG/DL (0.55-1.30) 5.8 MG/DL (0.55-1.30) Estimat Glomerular Filtration Rate 7.5 mL/min (>60) 8.5 mL/min (>60) Glucose Level 293 MG/DL (74-106) 247 MG/DL (74-106) Calcium Level 6.6 MG/DL (8.5-10.1) 7.1 MG/DL (8.5-10.1) Total Bilirubin 0.4 MG/DL (0.2-1.0) 0.4 MG/DL (0.2-1.0) Aspartate Amino Transf (AST/SGOT) 12 U/L (15-37) 16 U/L (15-37) Alanine Aminotransferase (ALT/SGPT) 14 U/L (12-78) 14 U/L (12-78) Alkaline Phosphatase 87 U/L (46-116) 98 U/L (46-116) Total Protein 6.2 G/DL (6.4-8.2) 6.8 G/DL (6.4-8.2) Albumin 1.5 G/DL (3.4-5.0) 1.7 G/DL (3.4-5.0) Globulin 4.7 g/dL 5.1 g/dL Albumin/Globulin Ratio 0.3 (1.0-2.7) 0.3 (1.0-2.7) White Blood Count 14.0 K/UL (4.8-10.8) Red Blood Count 3.55 M/UL (4.20-5.40) Hemoglobin 9.9 G/DL (12.0-16.0) Hematocrit 29.4 % (37.0-47.0) Mean Corpuscular Volume 83 FL (80-99) Mean Corpuscular Hemoglobin 27.7 PG (27.0-31.0) Mean Corpuscular Hemoglobin Concent 33.5 G/DL (32.0-36.0) Red Cell Distribution Width 13.5 % (11.6-14.8) Platelet Count 157 K/UL (150-450) Mean Platelet Volume 6.1 FL (6.5-10.1) Neutrophils (%) (Auto) % (45.0-75.0) Lymphocytes (%) (Auto) % (20.0-45.0) Monocytes (%) (Auto) % (1.0-10.0) Eosinophils (%) (Auto) % (0.0-3.0) Basophils (%) (Auto) % (0.0-2.0) Differential Total Cells Counted 100 Neutrophils % (Manual) 87 % (45-75) Lymphocytes % (Manual) 9 % (20-45) Monocytes % (Manual) 2 % (1-10) Eosinophils % (Manual) 2 % (0-3) Basophils % (Manual) 0 % (0-2) Band Neutrophils 0 % (0-8) Platelet Estimate Adequate Platelet Morphology Normal Hypochromasia 1+ Phosphorus Level 9.1 MG/DL (2.5-4.9) Magnesium Level 2.5 MG/DL (1.8-2.4) Objective: WDWN ETT in place reduced LOC reduced breath sounds bilaterally without rhonchi or wheeze [id number] without MRG NABS nontender no HSM; no distention feeding tube in place no CCE nonfocal with reduced ROM reviewed and edited Accucheck: 176 Torey Douglass MD Nov 19, 2019 09:01
[2019-11-19] MEDS: Pantoprazole Inj IVP SCH (09:31)
[2019-11-19] MEDS: levETIRAcetam 500mg/NS100ml 100 ML IVPB SCH ×2 (09:31→20:08)
--- NOTE | 2019-11-19 09:35 | NUR ---
RESPIRATORY NOTE: Pt is placed on CPAP +5 PS 8. SaO2 100%, HR 96. RSBI 78, NIG -26, VC 420. No SOB noted. Will continue to monitor. FELY Arteaga aware.
[2019-11-19] MEDS ORDERED: Tubing IV Secondary IV ONE (09:57)
[2019-11-19] MEDS ORDERED: NS 275ml ONE (09:57)
--- NOTE | 2019-11-19 10:00 | NUR ---
NURSE NOTES: Patient on weaning trial with CPAP PS 8, PEEP 5, and FiO2 30%. Patient tolerating with no sign of acute distress. Will continue to monitor. Patient repositioned. Bed in low position with bed alarm on and call light in reach.
--- NOTE | 2019-11-19 10:26 | General Progress Note ---
Assessment/Plan Problem List: (1) Shock ICD Codes: R57.9 - Shock, unspecified SNOMED: 19271554 (2) Anemia due to acute blood loss ICD Codes: D62 - Acute posthemorrhagic anemia SNOMED: 409076278 (3) Hyperkalemia ICD Codes: E87.5 - Hyperkalemia SNOMED: 18740761 (4) Recurrent seizures ICD Codes: G40.909 - Epilepsy, unspecified, not intractable, without status epilepticus SNOMED: 92576061, 28519734 (5) Aspiration pneumonia ICD Codes: J69.0 - Pneumonitis due to inhalation of food and vomit SNOMED: 686257028 (6) ARF (acute renal failure) ICD Codes: N17.9 - Acute kidney failure, unspecified SNOMED: 72255278 (7) ATN (acute tubular necrosis) ICD Codes: N17.0 - Acute kidney failure with tubular necrosis SNOMED: 75870736 Status: stable Assessment/Plan: cont vent support resp care suctioning as needed iv abx pressors ivf monitor renal fxn monitor labs and cbc transfuse as needed critical and guarded grim prognosis family considering withdrawl of care Subjective Allergies: Coded Allergies: No Known Allergies (Verified , 12/31/09) Subjective still hypotensive. on lower dose dopamine. good uop. no fevers. GT replaced. renal fxn unchanged. family declined HD. renal fxn and urine output improving. Objective Last 24 Hour Vital Signs Date Time Temp Pulse Resp B/P (MAP) Pulse Ox O2 Delivery O2 Flow Rate FiO2 11/19/19 09:35 96 25 30 30 11/19/19 07:42 97 26 30 11/19/19 07:30 101 25 141/82 (101) 99 11/19/19 07:20 98 21 104/78 (87) 93 11/19/19 07:16 89 17 55/33 (40) 100 11/19/19 07:14 88 20 86/54 (65) 100 11/19/19 07:00 76/41 11/19/19 07:00 87 17 76/41 (53) 100 11/19/19 06:30 95 24 135/75 (95) 100 11/19/19 06:30 88 17 11/19/19 06:00 135/75 11/19/19 06:00 94 30 154/95 (114) 100 11/19/19 05:00 160/80 11/19/19 05:00 91 15 160/80 (106) 100 11/19/19 05:00 96 32 30 11/19/19 04:30 89 16 157/79 (105) 100 11/19/19 04:00 93 11/19/19 04:00 Mechanical Ventilator 11/19/19 04:00 158/82 11/19/19 04:00 98.0 92 19 158/82 (107) 100 11/19/19 04:00 30 11/19/19 03:30 92 20 162/79 (106) 100 11/19/19 03:02 91 21 30 11/19/19 03:00 162/79 11/19/19 03:00 95 20 158/81 (106) 100 11/19/19 02:41 88 20 94/52 (66) 100 11/19/19 02:04 132/94 11/19/19 02:00 97 29 132/94 (107) 100 11/19/19 02:00 110/54 11/19/19 01:30 87 17 124/76 (92) 100 11/19/19 01:00 124/76 11/19/19 01:00 83 20 142/73 (96) 100 11/19/19 00:30 83 19 133/73 (93) 100 11/19/19 00:00 30 11/19/19 00:00 86 11/19/19 00:00 133/73 11/19/19 00:00 98.7 85 20 127/72 (90) 100 11/19/19 00:00 Mechanical Ventilator 11/18/19 23:30 86 17 127/74 (91) 100 11/18/19 23:04 89 25 30 11/18/19 23:00 87 16 131/81 (98) 100 11/18/19 23:00 127/74 11/18/19 22:30 90 21 126/74 (91) 100 11/18/19 22:00 126/74 11/18/19 22:00 90 22 146/75 (98) 100 11/18/19 21:30 95 19 145/74 (97) 100 11/18/19 21:22 91 21 30 11/18/19 21:03 99.0 3/13/20 21:00 93 20 138/72 (94) 100 11/18/19 21:00 145/74 11/18/19 20:30 96 21 139/72 (94) 100 11/18/19 20:00 100 11/18/19 20:00 139/72 11/18/19 20:00 99.4 99 30 139/70 (93) 100 11/18/19 20:00 30 11/18/19 20:00 Mechanical Ventilator 11/18/19 19:00 137/70 11/18/19 19:00 98 29 137/70 (92) 96 11/18/19 18:57 99 24 30 11/18/19 18:00 92 24 122/84 (97) 96 11/18/19 18:00 122/56 11/18/19 17:00 125/56 11/18/19 17:00 94 17 116/70 (85) 97 11/18/19 16:52 93 24 30 11/18/19 16:01 94 11/18/19 16:00 Mechanical Ventilator 11/18/19 16:00 123/62 11/18/19 16:00 30 11/18/19 16:00 101.2 94 17 121/62 (81) 98 11/18/19 15:30 96 19 117/62 (80) 98 11/18/19 15:00 97 17 121/53 (75) 98 11/18/19 15:00 121/53 11/18/19 14:42 99 25 30 11/18/19 14:00 116/65 11/18/19 14:00 99 21 117/63 (81) 98 11/18/19 13:04 101 21 30 11/18/19 13:00 101 20 110/64 (79) 98 11/18/19 13:00 116/58 11/18/19 12:30 99 19 121/67 (85) 98 11/18/19 12:01 98 11/18/19 12:00 Mechanical Ventilator 11/18/19 12:00 98.5 99 19 124/64 (84) 97 11/18/19 12:00 30 11/18/19 12:00 124/64 11/18/19 11:30 102 20 128/63 (84) 97 11/18/19 11:08 106 22 30 11/18/19 11:04 124/66 11/18/19 11:00 103 33 124/66 (85) 99 Intake and Output 11/18/19 11/19/19 19:00 07:00 Intake Total 770.718 ml 1328.465 ml Output Total 1130 ml 975 ml Balance -359.282 ml 353.465 ml IV Total 770.718 ml 1328.465 ml Output Urine Total 1130 ml 975 ml # Bowel Movements 2 Height (Feet): 5 Height (Inches): 3.00 Weight (Pounds): 177 Objective General Appearance: WD/WN, lethargic Neck: normal alignment, supple, normal inspection Cardiovascular: normal rate, regular rhythm Respiratory/Chest: no respiratory distress, no accessory muscle use, rhonchi - bilaterally Abdomen: normal bowel sounds, non tender, soft, no organomegaly, no mass Extremities: normal range of motion, non-tender Neurologic: unresponsive, aphasia Jeffrey Crowder MD Nov 19, 2019 10:26
--- NOTE | 2019-11-19 12:00 | NUR ---
NURSE NOTES: Patient mentation remains the same. Patient remains orally intubated with ET tube 7.5cm with 24cm at the lip line and ventilator setting of AC 14, tidal volume 350, FiO2 30%, and PEEP 5. Patient tolerating with no sign of acute distress. Patint tolerated weaning trial. Will follow up with Dr Douglass regarding weaning trial and ABG and ask how he would like to proceed. Patient remains NPO at this time. Gastrostomy tube patent, asymptomatic, and clamped at this time. Barron patent, draining with pale yellow urine output. All wounds covered with dressing and dry/intact. Left upper arm PICC line remains patent, asymptomatic, and dressing dry and intact and running dopamine at 4mcg/kg/min and NS at 75mL/hr. Patient showing no sign of acute distress. Patient bed in low position with bed alarm on and call light in reach. Patient repositioned and oral care performed at this time. Will continue to monitor and titrate dopamine per protocol.
--- NOTE | 2019-11-19 12:59 | Surgery Progress Note ---
Surgery Progress Note Subjective Additional Comments weaning vent doing well on weaning but not alert or awake or responsive currently labs noted exam stable will discuss with pulm about extubation Objective Last 24 Hour Vital Signs Date Time Temp Pulse Resp B/P (MAP) Pulse Ox O2 Delivery O2 Flow Rate FiO2 11/19/19 10:42 91 25 30 30 11/19/19 09:35 96 25 30 30 11/19/19 08:00 94 11/19/19 07:42 97 26 30 11/19/19 07:30 101 25 141/82 (101) 99 11/19/19 07:20 98 21 104/78 (87) 93 11/19/19 07:16 89 17 55/33 (40) 100 11/19/19 07:14 88 20 86/54 (65) 100 11/19/19 07:00 76/41 11/19/19 07:00 87 17 76/41 (53) 100 11/19/19 06:30 95 24 135/75 (95) 100 11/19/19 06:30 88 17 11/19/19 06:00 135/75 11/19/19 06:00 94 30 154/95 (114) 100 11/19/19 05:00 160/80 11/19/19 05:00 91 15 160/80 (106) 100 11/19/19 05:00 96 32 30 11/19/19 04:30 89 16 157/79 (105) 100 11/19/19 04:00 93 11/19/19 04:00 Mechanical Ventilator 11/19/19 04:00 158/82 11/19/19 04:00 98.0 92 19 158/82 (107) 100 11/19/19 04:00 30 11/19/19 03:30 92 20 162/79 (106) 100 11/19/19 03:02 91 21 30 11/19/19 03:00 162/79 11/19/19 03:00 95 20 158/81 (106) 100 11/19/19 02:41 88 20 94/52 (66) 100 11/19/19 02:04 132/94 11/19/19 02:00 97 29 132/94 (107) 100 11/19/19 02:00 110/54 11/19/19 01:30 87 17 124/76 (92) 100 3/14/20 01:00 124/76 11/19/19 01:00 83 20 142/73 (96) 100 11/19/19 00:30 83 19 133/73 (93) 100 11/19/19 00:00 30 11/19/19 00:00 86 11/19/19 00:00 133/73 11/19/19 00:00 98.7 85 20 127/72 (90) 100 11/19/19 00:00 Mechanical Ventilator 11/18/19 23:30 86 17 127/74 (91) 100 11/18/19 23:04 89 25 30 11/18/19 23:00 87 16 131/81 (98) 100 11/18/19 23:00 127/74 11/18/19 22:30 90 21 126/74 (91) 100 11/18/19 22:00 126/74 11/18/19 22:00 90 22 146/75 (98) 100 11/18/19 21:30 95 19 145/74 (97) 100 11/18/19 21:22 91 21 30 11/18/19 21:03 99.0 11/18/19 21:00 93 20 138/72 (94) 100 11/18/19 21:00 145/74 11/18/19 20:30 96 21 139/72 (94) 100 11/18/19 20:00 100 11/18/19 20:00 139/72 11/18/19 20:00 99.4 99 30 139/70 (93) 100 11/18/19 20:00 30 11/18/19 20:00 Mechanical Ventilator 11/18/19 19:00 137/70 11/18/19 19:00 98 29 137/70 (92) 96 11/18/19 18:57 99 24 30 11/18/19 18:00 92 24 122/84 (97) 96 11/18/19 18:00 122/56 11/18/19 17:00 125/56 11/18/19 17:00 94 17 116/70 (85) 97 11/18/19 16:52 93 24 30 11/18/19 16:01 94 11/18/19 16:00 Mechanical Ventilator 11/18/19 16:00 123/62 11/18/19 16:00 30 11/18/19 16:00 101.2 94 17 121/62 (81) 98 3/13/20 15:30 96 19 117/62 (80) 98 11/18/19 15:00 97 17 121/53 (75) 98 11/18/19 15:00 121/53 11/18/19 14:42 99 25 30 11/18/19 14:00 116/65 11/18/19 14:00 99 21 117/63 (81) 98 11/18/19 13:04 101 21 30 11/18/19 13:00 101 20 110/64 (79) 98 11/18/19 13:00 116/58 I&O Intake and Output 11/18/19 11/19/19 19:00 07:00 Intake Total 770.718 ml 1328.465 ml Output Total 1130 ml 975 ml Balance -359.282 ml 353.465 ml IV Total 770.718 ml 1328.465 ml Output Urine Total 1130 ml 975 ml # Bowel Movements 2 Dressing: other Wound: other Drains: other Cardiovascular: RSR Respiratory: decreased breath sounds Abdomen: soft, non-tender, present bowel sounds Extremities: no tenderness, no cyanosis Laboratory Tests Test 11/19/19 10:55 Arterial Blood pH 7.438 (7.350-7.450) Arterial Blood Partial Pressure CO2 34.6 mmHg (35.0-45.0) L Arterial Blood Partial Pressure O2 111.3 mmHg (75.0-100.0) H Arterial Blood HCO3 22.9 mmol/L (22.0-26.0) Arterial Blood Oxygen Saturation 97.7 % (95-100) Arterial Blood Base Excess -1.0 (-2-2) Danilo Test Positive Plan Problems: (1) Decubitus skin ulcer Assessment & Plan: Pt presented on admission with multiple pressure injuries. DTPI sacrum . Base of injury is indurated,purple with areas that are maroon in colour. An area of fluctuance noted at sacrococcygeal area. Borders are irregular (L)8.5cm x (W)9.3cm.Historical scar also noted within base of Sacral pressure injury. DTPI medial L heel. Base of injury fluctuant,maroon with surrounding non- blanching erythema. (L)1.7cm x (W)1.6cm. DTPI medial R heel. Base of injury is maroon and fluctuant(L)3.1cm x (W)2.5cm. Tx.Plan: Apply Moisture Barrier Paste to Sacrum. Cover with Optifoam drsg. Change every 3 days and prn. Apply Cavilon Skin Barrier to both heels. Cover each heel with Optifoam drsg. Change every 7 days and prn. APM/VALERIE Mattress. Reposition at least every 2 hours or as tolerated. Off-load heels with pillow. Patient is at high risk for deterioration of wounds opening of DTI and formation of worsening decubitus will need close monitoring and significant amount of care to ensure improvement. Nutritional optimization. Will follow with recommendations thank you (2) Failure to thrive in adult Assessment & Plan: Not tolerating tube feeds regurgitation high residuals DAILY ESTIMATED NEEDS: Needs based on Critical care, sepsis, wound, ARF/ 57.7kg abw 22-30 kcals/kg 0258-8460 total kcals 0.8-1.3 (increase w/ renal fxn improvement) g protein/kg 46-75 g total protein 25-30 mL/kg 9022-3713 total fluid mLs NUTRITION DIAGNOSIS: 1) Swallowing difficulty r/t dysphagia as evidenced by pt is Jtube dep, currently orally intubated, NPO. 2) Altered nutrition related lab values r/t respiratory failure, DM, ARF, sepsis as evidenced by COW >45*, elev pH 7.616*, elev K (7.2*), elev creat (8.8), elev BUN (178), elev BG (228), elev LA, elev wbc (22.2*) CURRENT TF:NPO ENTERAL NUTRITION RECOMMENDATIONS: Nepro @ 40ml/hr x 22 hrs to provide 880ml, 1584kcal, 71g prot, 640ml free water * Rec Nepro at this time given ARF, +hyperkalemia w/ creat 8.8. * When medically appropriate, initiate Nepro @ 20ml/hr x 6 hrs, advance 10ml q 4 -6 hrs as tolerated to goal rate * Hold 1 hr before and after Synthroid med * HOB over 30 degrees/ water flush per MD ---- W/ improved renal fxn and normalized lytes, rec Glucerna 1.2 @ 60ml/hr x 22 hrs to provide 1320ml, 1584 kcal, 79g pro, 1063ml free H2O ADDITIONAL RECOMMENDATIONS: 1) Monitor lytes and renal fxn closely -> admitted w/ creat > 8.0, creat previous adm < 2.0 -> K critically elev, s/p kayexalate. -> Rec Nepro at this time 2) Wound care: add Maik BID as tolerated/ f/up w/ WC eval 3) Calibrated bedscale wt- w/ added p200 mattress + pump 4) Pt on Synthroid DISTRESSER:currently not on the med list. (3) Acute respiratory failure Assessment & Plan: As per pulmonology available if trach needs Jared Mcarthur Nov 19, 2019 12:59
--- NOTE | 2019-11-19 13:30 | NUR ---
Pt tolerating CPAP mode. Placed pt back on AC mode, no new orders for now. Will continue to monitor. FELY Arteaga aware.
--- NOTE | 2019-11-19 13:55 | NUR ---
NURSE NOTES: Patient tolerated weaning trial from 0945 this morning on CPAP PS 8 with FiO2 30% and PEEP 5. RSBI 77, Nif -24, and vital capacity 400. Notified Dr Douglass regarding these results and ABG result during weaning trial. Received order to place patient back on AC 12, tidal volume 350, FiO2 30% and PEEP 5 and do another weaning trial in the AM. Notified RT. Patient back on AC mode. Will continue to monitor. Patient repositioned.
--- NOTE | 2019-11-19 16:00 | NUR ---
NURSE NOTES: Patient mentation remains the same. Patient remains orally intubated with ET tube 7.5cm with 24cm at the lip line and ventilator setting of AC 14, tidal volume 350, FiO2 30%, and PEEP 5. Patient tolerating with no sign of acute distress. Patient remains NPO at this time. Gastrostomy tube patent, asymptomatic, and clamped at this time. Barron patent, draining with pale yellow urine output. All wounds covered with dressing and dry/intact. Left upper arm PICC line remains patent, asymptomatic, and dressing dry and intact and running dopamine at 4mcg/kg/min and NS at 75mL/hr. Patient showing no sign of acute distress. Patient bed in low position with bed alarm on and call light in reach. Patient repositioned and oral care performed at this time. Will continue to monitor and titrate dopamine per protocol.
--- NOTE | 2019-11-19 17:21 | General Progress Note ---
Assessment/Plan Status: stable Assessment/Plan: Assessment - h/o gastroparesis and GT feed intolerance - GJ tube dislodged and replaced with G tube - Resp failure, intubated - OBS - Sepeis, shock - CRF - Poor Px Recommendations - OK to use GT for meds. Hold feeds - abx supportive care - elevate HOB - wean off pressors and vent as tolerated - can re-address G to J conversion once stabilized Subjective Allergies: Coded Allergies: No Known Allergies (Verified , 12/31/09) Subjective Above noted d/w RN Objective Last 24 Hour Vital Signs Date Time Temp Pulse Resp B/P (MAP) Pulse Ox O2 Delivery O2 Flow Rate FiO2 11/19/19 17:06 90 25 30 11/19/19 15:30 89 21 129/63 (85) 100 11/19/19 15:01 90 21 30 11/19/19 15:00 88 17 122/63 (82) 99 11/19/19 14:30 89 14 122/64 (83) 99 11/19/19 14:00 89 16 122/64 (83) 99 11/19/19 13:33 100 11/19/19 13:30 93 26 124/70 (88) 100 11/19/19 13:30 93 26 30 11/19/19 13:00 89 24 123/64 (83) 100 11/19/19 12:30 91 26 105/62 (76) 100 11/19/19 12:00 Mechanical Ventilator 11/19/19 12:00 89 11/19/19 12:00 98.3 92 24 122/71 (88) 100 11/19/19 12:00 30 11/19/19 11:30 92 24 121/65 (83) 100 11/19/19 11:00 92 25 122/70 (87) 100 11/19/19 10:42 91 25 30 30 11/19/19 10:30 91 25 124/73 (90) 100 11/19/19 10:00 93 25 122/75 (91) 100 11/19/19 09:35 96 25 30 30 11/19/19 09:30 94 26 114/62 (79) 100 11/19/19 09:00 90 26 146/75 (98) 100 11/19/19 08:30 90 18 149/76 (100) 100 3/14/20 08:00 30 11/19/19 08:00 94 11/19/19 08:00 Mechanical Ventilator 11/19/19 08:00 91 18 150/78 (102) 100 11/19/19 07:42 97 26 30 11/19/19 07:30 101 25 141/82 (101) 99 11/19/19 07:20 98 21 104/78 (87) 93 11/19/19 07:16 89 17 55/33 (40) 100 11/19/19 07:14 88 20 86/54 (65) 100 11/19/19 07:00 76/41 11/19/19 07:00 87 17 76/41 (53) 100 11/19/19 06:30 95 24 135/75 (95) 100 11/19/19 06:30 88 17 11/19/19 06:00 135/75 11/19/19 06:00 94 30 154/95 (114) 100 11/19/19 05:00 160/80 11/19/19 05:00 91 15 160/80 (106) 100 11/19/19 05:00 96 32 30 11/19/19 04:30 89 16 157/79 (105) 100 11/19/19 04:00 93 11/19/19 04:00 Mechanical Ventilator 11/19/19 04:00 158/82 11/19/19 04:00 98.0 92 19 158/82 (107) 100 11/19/19 04:00 30 11/19/19 03:30 92 20 162/79 (106) 100 11/19/19 03:02 91 21 30 11/19/19 03:00 162/79 11/19/19 03:00 95 20 158/81 (106) 100 11/19/19 02:41 88 20 94/52 (66) 100 11/19/19 02:04 132/94 11/19/19 02:00 97 29 132/94 (107) 100 11/19/19 02:00 110/54 11/19/19 01:30 87 17 124/76 (92) 100 11/19/19 01:00 124/76 11/19/19 01:00 83 20 142/73 (96) 100 11/19/19 00:30 83 19 133/73 (93) 100 11/19/19 00:00 30 11/19/19 00:00 86 11/19/19 00:00 133/73 11/19/19 00:00 98.7 85 20 127/72 (90) 100 11/19/19 00:00 Mechanical Ventilator 11/18/19 23:30 86 17 127/74 (91) 100 11/18/19 23:04 89 25 30 11/18/19 23:00 87 16 131/81 (98) 100 11/18/19 23:00 127/74 11/18/19 22:30 90 21 126/74 (91) 100 11/18/19 22:00 126/74 11/18/19 22:00 90 22 146/75 (98) 100 11/18/19 21:30 95 19 145/74 (97) 100 11/18/19 21:22 91 21 30 11/18/19 21:03 99.0 11/18/19 21:00 93 20 138/72 (94) 100 11/18/19 21:00 145/74 11/18/19 20:30 96 21 139/72 (94) 100 11/18/19 20:00 100 11/18/19 20:00 139/72 11/18/19 20:00 99.4 99 30 139/70 (93) 100 11/18/19 20:00 30 11/18/19 20:00 Mechanical Ventilator 11/18/19 19:00 137/70 11/18/19 19:00 98 29 137/70 (92) 96 11/18/19 18:57 99 24 30 11/18/19 18:00 92 24 122/84 (97) 96 11/18/19 18:00 122/56 Intake and Output 11/18/19 11/19/19 19:00 07:00 Intake Total 770.718 ml 1328.465 ml Output Total 1130 ml 975 ml Balance -359.282 ml 353.465 ml IV Total 770.718 ml 1328.465 ml Output Urine Total 1130 ml 975 ml # Bowel Movements 2 Laboratory Tests 11/19/19 10:55: Arterial Blood pH 7.438, Arterial Blood Partial Pressure CO2 34.6L, Arterial Blood Partial Pressure O2 111.3H, Arterial Blood HCO3 22.9, Arterial Blood Oxygen Saturation 97.7, Arterial Blood Base Excess -1.0, Danilo Test Positive Height (Feet): 5 Height (Inches): 3.00 Weight (Pounds): 177 Objective Debilitated AA woman in ICU on vent NCAT (+) ETT coarse BS/karol RR abd soft, NT, GT in good position no edema Non verbal Darrell Griffith MD Nov 19, 2019 17:21
[2019-11-19] MEDS: cefTRIAXone 1 GM in D5W 55 ML IVPB SCH (17:26)
--- NOTE | 2019-11-19 18:00 | NUR ---
NURSE NOTES: Bed bath done at this time. Blood pressure stable with dopamine running at 4mcg/kg/min at this time. Will continue to monitor. patient repositioned. Will continue to monitor.
--- NOTE | 2019-11-19 19:15 | NUR ---
HAND-OFF: Report given to FELY Gomez. Patient VS stable at this time. Dopamine running at 4mcg/kg/min. Endorsed to follow up with monitor.
--- NOTE | 2019-11-19 19:30 | NUR ---
NURSE NOTES: Received report from FELY Arteaga. Patient in bed with eyes closed, Noted with ETT 7.5/24cm with vent setting AC 12, TV 350, Peep 5 and FiO2 30%. O2 sat 100% on the monitor. No s/s of acute distress noted. G-tube intact and clamped, NPO, no residual. Left upper arm PICC line intact infusing with Dopamine 4mcg/kg/min. HR 96 on the monitor.Code status DNR/DNI, comfort measure continued. kept dry, clean and comfortable. Temp 98 axillary. Contact and seizure precaution maintain and observed. P200 mattress for wound management. Will continue plan of care.
[2019-11-19] MEDS: Dyna-Hex 2% Top Sol 2oz TOPIC SCH (19:56)
--- NOTE | 2019-11-19 22:00 | NUR ---
NURSE NOTES: Titrated Dopamine drip to 6mcg/min BP 80/48. no s/s of acute distress noted. suctioned.Barron draining. no moaning no facial grimaces. will continue plan of care.
[2019-11-20] VITALS (46 sets, daily range): BP systolic 100–169; BP diastolic 53–84
--- NOTE | 2019-11-20 | NUR ---
NURSE NOTES: Titrated Dopamine drip to 4mcg/min BP 146/78 no s/s of acute distress noted. suctioned.Barron draining. no moaning no facial grimaces. will continue plan of care.
--- NOTE | 2019-11-20 02:00 | Progress Note ---
DATE: 11/18/2019 CARDIOLOGY PROGRESS NOTE SUBJECTIVE: The patient remains on ventilator support. Weaning efforts have been unsuccessful. She remains on dopamine for blood pressure stabilization. Monitored rhythm, sinus and sinus tachycardia with atrial ectopy. OBJECTIVE: VITAL SIGNS: Blood pressure 117/63, heart rate , respiratory rate 21, and T-max 99.5. HEENT: Orally intubated. LUNGS: Bilateral breath sounds rhonchi. CARDIAC: Regular rhythm and rate. Normal S1 and S2 with a 1/6 systolic murmur at the apex. ABDOMEN: Soft. GJ tube intact. EXTREMITIES: There is trace dependent edema. LABORATORY DATA: White count is 14 and hemoglobin 9.9. Sodium 129, potassium 3.4, bicarb 21, BUN 91, and creatinine 5.8. Albumin 1.7. IMPRESSION: 1. Multiorgan system failure. 2. Respiratory failure. 3. Acute on chronic diastolic congestive heart failure. 4. Acute renal failure. 5. Severe protein-calorie malnutrition. 6. Anemia. 7. Sepsis. 8. Shock. PLAN: 1. Volume support. 2. Renal dose dopamine. 3. Continue efforts to wean. 4. DVT and stress ulcer prophylaxis. 5. Not a candidate for hemodialysis based on debility and family's wishes. Kavon Peña M.D. DR: KEN JOB#: [id number] CC:
--- NOTE | 2019-11-20 02:00 | NUR ---
NURSE NOTES: Bed bath given tolerated well.
--- NOTE | 2019-11-20 02:30 | Progress Note ---
DATE: 11/19/2019 CARDIOLOGY PROGRESS NOTE SUBJECTIVE: The patient's condition remains tenuous. Blood pressure very labile. She still is on low-dose dopamine support. Remains on ventilator support. Renal function slightly better with urine output increased. PHYSICAL EXAMINATION: LUNGS: Bilateral breath sounds with rales. HEART: Regular rhythm and rate. Normal S1 and S2. Monitor reveals sinus and sinus tachycardia with atrial ectopy. ABDOMEN: Soft with a GJ tube. EXTREMITIES: There is trace dependent edema. LABORATORY DATA: ABG, pH 7.43, pCO2 35, and pO2 111. IMPRESSION: Multiorgan system failure. PLAN: 1. Condition remains critical with guarded prognosis. 2. Care plan remains in place. 3. Discussed with staff and ICU nurses. 4. No plans for dialysis at this time. Kavon Peña M.D. DR: STU JOB#: [id number] CC:
--- NOTE | 2019-11-20 04:00 | NUR ---
NURSE NOTES: Titrated Dopamine drip to 2mcg/min BP 169/83. Barron draining. no moaning no facial grimaces. comfort measure provided. will continue plan of care.
--- NOTE | 2019-11-20 06:00 | NUR ---
NURSE NOTES: Patient continue on Dopamine drip to 2mcg/min BP 108/60. GT clamped. Blood glucose 233mg/dl. Barron draining. no moaning no facial grimaces. comfort measure provided. will continue plan of care.
[2019-11-20] MEDS: NovoLOG Insulin Flexpen SUBQ SCH ×4 (06:05→17:47)
[2019-11-20 06:32] LABS: BASOPHILS % (AUTO) 0.4 % (0.0-2.0); EOSINOPHILS % (AUTO) 4.1 % (0.0-3.0); HEMOGLOBIN 8.8 G/DL (12.0-16.0); LYMPHOCYTES % (AUTO) 11.3 % (20.0-45.0); MEAN CORPUSCULAR VOLUME 84 FL (80-99); MONOCYTES % (AUTO) 8.1 % (1.0-10.0); NEUTROPHILS % (AUTO) 76.1 % (45.0-75.0); PLATELET COUNT 180 K/UL (150-450); RED CELL DISTRIBUTION WIDTH 13.5 % (11.6-14.8); WHITE BLOOD COUNT 9.5 K/UL (4.8-10.8)
[2019-11-20 07:04] LABS: ALANINE AMINOTRANSFERASE 8 U/L (12-78); ALBUMIN 1.5 G/DL (3.4-5.0); ALBUMIN/GLOBULIN RATIO 0.3 (1.0-2.7); ALKALINE PHOSPHATASE 83 U/L (46-116); ANION GAP 17 mmol/L (5-15); ASPARTATE AMINO TRANSFERASE 14 U/L (15-37); BILIRUBIN,TOTAL 0.3 MG/DL (0.2-1.0); BLOOD UREA NITROGEN 78 mg/dL (7-18); CARBON DIOXIDE 23 MMOL/L (21-32); CHLORIDE 98 MMOL/L (98-107); SODIUM 137 MMOL/L (136-145)
[2019-11-20 07:06] LABS: POTASSIUM 2.5 MMOL/L (3.5-5.1)
--- NOTE | 2019-11-20 07:11 | NUR ---
HAND-OFF: Report given to Jenni GEIGER.
--- NOTE | 2019-11-20 07:12 | NUR ---
NURSE NOTES: Received patient from FELY Gomez. Patient obtunded. Patient opens eyes but does not track. Pupils sluggish to respond to light and sound. 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 Patient orally intubated with size 7.5cm ET tube and 24cm at the lip line on ventilator setting of AC 12, tidal volume 350, FiO2 30%, and PEEP 5. Patient tolerating with no sign of acute distress. patient NPO at this time per family request. Patient has perera for urine retention with cloudy yellow urine with sediment. Patient has sacral partial thickness pressure injury, left heel DTI, abdomen and right upper thigh blisters, left hip pink/scarred area. Patient is edematous generalized, non-pitting. Patient has left upper arm PICC line that is patent, asymptomatic, and running dopamine at 2mcg/kg/min at this time and normal saline at 75mL/hr. Blood pressure stable. Patient has potassium of 2.5 this morning. Will ask for coverage from Dr Crowder. Will follow up. Patient bed in low position with bed alarm on and call light in reach at this time. Will continue to monitor. Oral care done at this time. patient repositioned.
--- NOTE | 2019-11-20 07:28 | NUR ---
RESPIRATORY NOTES: Patient failed weaning on CPAP PS +8 PEEP +5 FIO2 30%. Patients RR immediately increased to >45bpm, RSBI 125. Placed back onto ACVC.
--- NOTE | 2019-11-20 07:28 | NUR ---
NURSE NOTES: Called Dr Crowder and notified him regarding potassium of 2.5. Received telephone order for K-Dur 30mEq PO once. Order read back, verified, and placed at this time.
--- NOTE | 2019-11-20 08:24 | NUR ---
NURSE NOTES: Dr Crowder rounded on the patient. Notified him that patient failed initial weaning trial this morning per RT. Notified him that patient blood pressure 146/76 and I will turn off dopamine drip. Received order to leave patient on Dopamine drip for renal perfusion at a minimum dose of 2mcg/kg/min. Order read back, verified, and placed at this time.
[2019-11-20] MEDS: Pantoprazole Inj IVP SCH (09:16)
[2019-11-20] MEDS: levETIRAcetam 500mg/NS100ml 100 ML IVPB SCH ×2 (09:17→20:37)
--- NOTE | 2019-11-20 09:30 | NUR ---
RESPIRATORY NOTES: Weaning attempted again. Patient passed on CPAP PS +8 PEEP +5 FIO2 30%. RSBI 80, VT 325mL, VE 8.2, RR 25. Will continue to monitor.
--- NOTE | 2019-11-20 09:51 | Diagnostic Imaging Report ---
EXAM: XR Chest, 1 View CLINICAL HISTORY: ABN CHST TECHNIQUE: Frontal view of the chest. COMPARISON: Chest x-ray 11/14/19 FINDINGS: Lungs: Worsened perihilar pulmonary edema and pulmonary vascular congestion. Subsegmental atelectasis versus infiltrates in the retro- cardiac region/left lung base. Pleural space: Small left pleural effusion. Heart: Unremarkable. No cardiomegaly. Mediastinum: Unremarkable. Bones/joints: Unremarkable. Vasculature: Atherosclerotic calcifications are noted within the aortic arch. Tubes, lines and devices: Stable positioning of an endotracheal tube. Telemetry leads overlie the thorax. IMPRESSION: 1. Findings concerning for worsening CHF. 2. Worsened perihilar pulmonary edema and pulmonary vascular congestion. 3. Small left pleural effusion. 4. Subsegmental atelectasis versus infiltrates in the retro-cardiac region/left lung base.
--- NOTE | 2019-11-20 10:54 | Infectious Diseases Prog Note ---
Assessment/Plan Assessment/Plan A 1. Staph aureus & E. coli pneumonia 2. Acute renal failure 3. diabetes mellitus 4. CHF 5. CVA 6.Acute respiratory failure 7. 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 continue linezolid & ceftriaxone 2. will follow up cultures Subjective ROS Limited/Unobtainable: Yes Constitutional: Denies: fever Allergies: Coded Allergies: No Known Allergies (Verified , 12/31/09) Objective Vital Signs Last 24 Hour Vital Signs Date Time Temp Pulse Resp B/P (MAP) Pulse Ox O2 Delivery O2 Flow Rate FiO2 11/20/19 10:30 88 23 115/61 (79) 100 11/20/19 10:00 86 24 100/53 (69) 100 11/20/19 09:30 88 22 107/59 (75) 100 11/20/19 09:29 88 22 30 30 11/20/19 09:00 88 19 112/61 (78) 100 11/20/19 08:30 91 19 105/60 (75) 100 11/20/19 08:00 97.8 99 25 146/76 (99) 100 11/20/19 08:00 Mechanical Ventilator 11/20/19 08:00 30 11/20/19 07:25 103 28 30 11/20/19 07:00 111/59 11/20/19 07:00 90 22 111/59 (76) 100 11/20/19 06:30 89 17 11/20/19 06:00 89 23 108/60 (76) 100 11/20/19 06:00 108/60 11/20/19 05:30 86 20 125/72 (89) 100 11/20/19 05:00 125/72 11/20/19 05:00 88 17 123/67 (85) 100 11/20/19 05:00 90 19 30 11/20/19 04:30 92 15 165/81 (109) 100 11/20/19 04:00 97.8 94 18 169/83 (111) 100 11/20/19 04:00 88 11/20/19 04:00 169/83 11/20/19 04:00 Mechanical Ventilator 11/20/19 04:00 30 11/20/19 03:30 92 17 156/84 (108) 100 11/20/19 03:08 90 21 30 11/20/19 03:00 137/80 11/20/19 03:00 91 21 137/80 (99) 100 11/20/19 02:30 92 23 134/76 (95) 100 11/20/19 02:00 90 17 134/69 (90) 100 11/20/19 02:00 134/69 11/20/19 01:30 92 20 133/74 (93) 100 11/20/19 01:30 89 19 30 11/20/19 01:00 88 17 133/70 (91) 100 11/20/19 01:00 133/70 11/20/19 00:30 91 20 149/76 (100) 100 11/20/19 00:00 30 11/20/19 00:00 146/78 11/20/19 00:00 98.2 94 25 146/78 (100) 100 11/20/19 00:00 Mechanical Ventilator 11/20/19 00:00 89 11/19/19 23:40 92 17 30 11/19/19 23:30 91 17 147/74 (98) 100 11/19/19 23:00 91 18 156/73 (100) 100 11/19/19 22:30 90 18 148/76 (100) 100 11/19/19 22:00 90 19 80/48 (59) 100 11/19/19 22:00 80/48 11/19/19 21:30 94 20 135/66 (89) 99 11/19/19 21:20 97 24 30 11/19/19 21:19 101 35 144/70 (94) 100 11/19/19 21:11 99 33 90/55 (67) 98 11/19/19 21:00 81/41 11/19/19 21:00 94 28 81/41 (54) 97 11/19/19 20:30 99 17 106/60 (75) 100 11/19/19 20:00 Mechanical Ventilator 11/19/19 20:00 98.0 89 19 160/75 (103) 99 11/19/19 20:00 30 11/19/19 20:00 160/75 11/19/19 20:00 88 11/19/19 19:56 142/70 11/19/19 19:34 92 27 142/70 (94) 99 11/19/19 19:30 91 21 88/59 (69) 100 11/19/19 19:05 87 26 30 11/19/19 19:00 153/70 11/19/19 18:30 88 19 124/74 (91) 100 11/19/19 18:00 146/72 11/19/19 18:00 88 19 146/72 (96) 100 11/19/19 17:30 88 20 157/73 (101) 100 11/19/19 17:06 90 25 30 11/19/19 17:00 143/103 11/19/19 17:00 90 21 143/103 (116) 100 11/19/19 16:30 88 18 123/61 (81) 100 11/19/19 16:00 30 11/19/19 16:00 98.0 87 17 143/103 (116) 100 11/19/19 16:00 87 11/19/19 16:00 123/58 11/19/19 16:00 Mechanical Ventilator 11/19/19 15:30 89 21 129/63 (85) 100 11/19/19 15:01 90 21 30 11/19/19 15:00 122/63 11/19/19 15:00 88 17 122/63 (82) 99 11/19/19 14:30 89 14 122/64 (83) 99 11/19/19 14:00 89 16 122/64 (83) 99 11/19/19 13:33 100 11/19/19 13:30 93 26 124/70 (88) 100 11/19/19 13:30 93 26 30 11/19/19 13:00 89 24 123/64 (83) 100 11/19/19 12:30 91 26 105/62 (76) 100 11/19/19 12:00 Mechanical Ventilator 11/19/19 12:00 89 11/19/19 12:00 98.3 92 24 122/71 (88) 100 11/19/19 12:00 30 11/19/19 11:30 92 24 121/65 (83) 100 11/19/19 11:00 92 25 122/70 (87) 100 Height (Feet): 5 Height (Inches): 3.00 Weight (Pounds): 176 HEENT: other - orally intubated Respiratory/Chest: lungs clear, other - on ventilator Cardiovascular: normal rate Abdomen: soft, non tender, other - GT feeding Extremities: other - generalized edema, , SCD of legs Neurologic/Psychiatric: unresponsiveness Laboratory Tests Test 11/19/19 10:55 11/20/19 05:56 Arterial Blood pH 7.438 (7.350-7.450) Arterial Blood Partial Pressure CO2 34.6 mmHg (35.0-45.0) L Arterial Blood Partial Pressure O2 111.3 mmHg (75.0-100.0) H Arterial Blood HCO3 22.9 mmol/L (22.0-26.0) Arterial Blood Oxygen Saturation 97.7 % (95-100) Arterial Blood Base Excess -1.0 (-2-2) Danilo Test Positive White Blood Count 9.5 K/UL (4.8-10.8) Red Blood Count 3.10 M/UL (4.20-5.40) L Hemoglobin 8.8 G/DL (12.0-16.0) L Hematocrit 26.0 % (37.0-47.0) L Mean Corpuscular Volume 84 FL (80-99) Mean Corpuscular Hemoglobin 28.3 PG (27.0-31.0) Mean Corpuscular Hemoglobin Concent 33.7 G/DL (32.0-36.0) Red Cell Distribution Width 13.5 % (11.6-14.8) Platelet Count 180 K/UL (150-450) Mean Platelet Volume 5.6 FL (6.5-10.1) L Neutrophils (%) (Auto) 76.1 % (45.0-75.0) H Lymphocytes (%) (Auto) 11.3 % (20.0-45.0) L Monocytes (%) (Auto) 8.1 % (1.0-10.0) Eosinophils (%) (Auto) 4.1 % (0.0-3.0) H Basophils (%) (Auto) 0.4 % (0.0-2.0) Sodium Level 137 MMOL/L (136-145) Potassium Level 2.5 MMOL/L (3.5-5.1) *L Chloride Level 98 MMOL/L (98-107) Carbon Dioxide Level 23 MMOL/L (21-32) Anion Gap 17 mmol/L (5-15) H Blood Urea Nitrogen 78 mg/dL (7-18) H Creatinine 5.0 MG/DL (0.55-1.30) H Estimat Glomerular Filtration Rate 10.1 mL/min (>60) Glucose Level 267 MG/DL (74-106) H Calcium Level 7.0 MG/DL (8.5-10.1) L Magnesium Level 2.0 MG/DL (1.8-2.4) Total Bilirubin 0.3 MG/DL (0.2-1.0) Aspartate Amino Transf (AST/SGOT) 14 U/L (15-37) L Alanine Aminotransferase (ALT/SGPT) 8 U/L (12-78) L Alkaline Phosphatase 83 U/L (46-116) Pro-B-Type Natriuretic Peptide 3463 pg/mL (0-125) H Total Protein 5.8 G/DL (6.4-8.2) L Albumin 1.5 G/DL (3.4-5.0) L Globulin 4.3 g/dL Albumin/Globulin Ratio 0.3 (1.0-2.7) L Current Medications Medications (Trade) Dose Ordered Sig/Aaron Route PRN Reason Start Time Stop Time Status Last Admin Dose Admin Acetaminophen (Tylenol) 650 mg Q4H PRN GT Mild Pain/Temp > 100.5 11/17/19 07:30 12/17/19 07:29 11/18/19 20:33 Ceftriaxone Sodium 1 gm/ Dextrose 55 ml @ 110 mls/hr Q24H IVPB 11/18/19 17:00 11/25/19 16:59 11/19/19 17:26 Chlorhexidine Gluconate (Arabella-Hex 2%) 1 applic DAILY@2000 TOPIC 11/15/19 20:00 12/15/19 19:59 11/19/19 19:56 Dextrose (Dextrose 50%) 25 ml Q30M PRN IV Hypoglycemia 11/14/19 19:00 12/14/19 18:59 Dextrose (Dextrose 50%) 50 ml Q30M PRN IV Hypoglycemia 11/14/19 19:00 12/14/19 18:59 Dopamine HCl/ Dextrose 250 ml @ 6.124 mls/ hr Q24H IV 11/21/19 01:15 12/15/19 01:14 Insulin Aspart (NovoLOG) Q6HR SUBQ 11/15/19 00:00 12/14/19 20:59 11/20/19 06:05 Levetiracetam 100 ml @ 400 mls/hr Q12HR IVPB 11/14/19 15:00 12/14/19 14:59 11/20/19 09:17 Linezolid 300 ml @ 300 mls/hr Q12H IVPB 11/15/19 15:00 11/22/19 14:59 11/20/19 02:58 Lorazepam (Ativan 2mg/ml 1ml) 1 mg Q4H PRN IV For Anxiety 11/17/19 18:45 11/24/19 18:44 11/19/19 19:57 Lorazepam (Ativan 2mg/ml 1ml) 2 mg Q1HR PRN IV For Seizures 11/14/19 14:15 11/21/19 14:14 11/16/19 20:27 Pantoprazole (Protonix) 40 mg DAILY IVP 11/14/19 14:15 12/14/19 14:14 11/20/19 09:16 Sodium Chloride 1,000 ml @ 75 mls/hr [id number] IV 11/18/19 17:15 12/18/19 17:14 11/20/19 09:17 Bay Richter MD Nov 20, 2019 10:54
--- NOTE | 2019-11-20 11:27 | Critical Care Progress Note ---
Assessment/Plan Assessment/Plan Respiratory failure, acute on chronic. Alkalemia due to hyperventilation, chronic metabolic alkalosis, chronic respiratory acidosis, leukocytosis, sepsis, anemia, hyponatremia, hyperkalemia, chronic renal failure, severe protein-calorie malnutrition. hyponatremia PLAN ins and outs noted care noted and reviewed IV antibiotics- ID noted respiratory care reviewed Ventilatory support - AC discuss wean with nursing and physicians meds noted SNF meds supportive care suction and monitor imaging off load oxygen therapy and titrate prognosis guarded monitor lytes; renal noted and reviewed normal wbc medications/laboratory data/nursing notes/ICU care reviewed in detail note reviewed and edited care discussed with RN and RT ICU time spent >40 minutes Critical Care - Subjective Interval Events: events noted was weaning but not ready for extubation back on full support overnight care reviewed ROS Limited/Unobtainable: Yes Condition: critical EKG Rhythm: Sinus Rhythm Residuals: minimal Tube Feeding Tolerated: yes I&O: Intake and Output 11/19/19 11/20/19 19:00 07:00 Intake Total 61.235 ml 1363.720 ml Output Total 1099 ml 1080 ml Balance -1037.765 ml 283.720 ml IV Total 61.235 ml 1363.720 ml Output Urine Total 1099 ml 1080 ml # Bowel Movements 1 2 Critical Care - Objective CXR: worsening pulmonary edema ET-Tube: 7.5 ET Position: 24 Last 24 Hour Vital Signs Date Time Temp Pulse Resp B/P (MAP) Pulse Ox O2 Delivery O2 Flow Rate FiO2 11/20/19 10:30 88 23 115/61 (79) 100 11/20/19 10:00 86 24 100/53 (69) 100 11/20/19 09:30 88 22 107/59 (75) 100 11/20/19 09:29 88 22 30 30 11/20/19 09:00 88 19 112/61 (78) 100 11/20/19 08:30 91 19 105/60 (75) 100 11/20/19 08:00 97.8 99 25 146/76 (99) 100 11/20/19 08:00 Mechanical Ventilator 11/20/19 08:00 30 11/20/19 07:25 103 28 30 11/20/19 07:00 111/59 11/20/19 07:00 90 22 111/59 (76) 100 11/20/19 06:30 89 17 11/20/19 06:00 89 23 108/60 (76) 100 11/20/19 06:00 108/60 11/20/19 05:30 86 20 125/72 (89) 100 11/20/19 05:00 125/72 11/20/19 05:00 88 17 123/67 (85) 100 11/20/19 05:00 90 19 30 11/20/19 04:30 92 15 165/81 (109) 100 11/20/19 04:00 97.8 94 18 169/83 (111) 100 11/20/19 04:00 88 11/20/19 04:00 169/83 11/20/19 04:00 Mechanical Ventilator 11/20/19 04:00 30 11/20/19 03:30 92 17 156/84 (108) 100 11/20/19 03:08 90 21 30 11/20/19 03:00 137/80 11/20/19 03:00 91 21 137/80 (99) 100 11/20/19 02:30 92 23 134/76 (95) 100 11/20/19 02:00 90 17 134/69 (90) 100 11/20/19 02:00 134/69 11/20/19 01:30 92 20 133/74 (93) 100 11/20/19 01:30 89 19 30 11/20/19 01:00 88 17 133/70 (91) 100 11/20/19 01:00 133/70 11/20/19 00:30 91 20 149/76 (100) 100 11/20/19 00:00 30 11/20/19 00:00 146/78 11/20/19 00:00 98.2 94 25 146/78 (100) 100 11/20/19 00:00 Mechanical Ventilator 11/20/19 00:00 89 11/19/19 23:40 92 17 30 11/19/19 23:30 91 17 147/74 (98) 100 11/19/19 23:00 91 18 156/73 (100) 100 11/19/19 22:30 90 18 148/76 (100) 100 11/19/19 22:00 90 19 80/48 (59) 100 11/19/19 22:00 80/48 11/19/19 21:30 94 20 135/66 (89) 99 11/19/19 21:20 97 24 30 11/19/19 21:19 101 35 144/70 (94) 100 11/19/19 21:11 99 33 90/55 (67) 98 11/19/19 21:00 81/41 11/19/19 21:00 94 28 81/41 (54) 97 11/19/19 20:30 99 17 106/60 (75) 100 11/19/19 20:00 Mechanical Ventilator 11/19/19 20:00 98.0 89 19 160/75 (103) 99 11/19/19 20:00 30 11/19/19 20:00 160/75 11/19/19 20:00 88 11/19/19 19:56 142/70 11/19/19 19:34 92 27 142/70 (94) 99 11/19/19 19:30 91 21 88/59 (69) 100 11/19/19 19:05 87 26 30 11/19/19 19:00 153/70 11/19/19 18:30 88 19 124/74 (91) 100 11/19/19 18:00 146/72 11/19/19 18:00 88 19 146/72 (96) 100 11/19/19 17:30 88 20 157/73 (101) 100 11/19/19 17:06 90 25 30 11/19/19 17:00 143/103 11/19/19 17:00 90 21 143/103 (116) 100 11/19/19 16:30 88 18 123/61 (81) 100 11/19/19 16:00 30 11/19/19 16:00 98.0 87 17 143/103 (116) 100 11/19/19 16:00 87 11/19/19 16:00 123/58 11/19/19 16:00 Mechanical Ventilator 11/19/19 15:30 89 21 129/63 (85) 100 11/19/19 15:01 90 21 30 11/19/19 15:00 122/63 11/19/19 15:00 88 17 122/63 (82) 99 11/19/19 14:30 89 14 122/64 (83) 99 11/19/19 14:00 89 16 122/64 (83) 99 11/19/19 13:33 100 11/19/19 13:30 93 26 124/70 (88) 100 11/19/19 13:30 93 26 30 11/19/19 13:00 89 24 123/64 (83) 100 11/19/19 12:30 91 26 105/62 (76) 100 11/19/19 12:00 Mechanical Ventilator 11/19/19 12:00 89 11/19/19 12:00 98.3 92 24 122/71 (88) 100 11/19/19 12:00 30 11/19/19 11:30 92 24 121/65 (83) 100 Labs: Labs Test 11/18/19 09:00 11/19/19 10:55 11/20/19 05:56 White Blood Count 14.0 K/UL (4.8-10.8) 9.5 K/UL (4.8-10.8) Red Blood Count 3.55 M/UL (4.20-5.40) 3.10 M/UL (4.20-5.40) Hemoglobin 9.9 G/DL (12.0-16.0) 8.8 G/DL (12.0-16.0) Hematocrit 29.4 % (37.0-47.0) 26.0 % (37.0-47.0) Mean Corpuscular Volume 83 FL (80-99) 84 FL (80-99) Mean Corpuscular Hemoglobin 27.7 PG (27.0-31.0) 28.3 PG (27.0-31.0) Mean Corpuscular Hemoglobin Concent 33.5 G/DL (32.0-36.0) 33.7 G/DL (32.0-36.0) Red Cell Distribution Width 13.5 % (11.6-14.8) 13.5 % (11.6-14.8) Platelet Count 157 K/UL (150-450) 180 K/UL (150-450) Mean Platelet Volume 6.1 FL (6.5-10.1) 5.6 FL (6.5-10.1) Neutrophils (%) (Auto) % (45.0-75.0) 76.1 % (45.0-75.0) Lymphocytes (%) (Auto) % (20.0-45.0) 11.3 % (20.0-45.0) Monocytes (%) (Auto) % (1.0-10.0) 8.1 % (1.0-10.0) Eosinophils (%) (Auto) % (0.0-3.0) 4.1 % (0.0-3.0) Basophils (%) (Auto) % (0.0-2.0) 0.4 % (0.0-2.0) Differential Total Cells Counted 100 Neutrophils % (Manual) 87 % (45-75) Lymphocytes % (Manual) 9 % (20-45) Monocytes % (Manual) 2 % (1-10) Eosinophils % (Manual) 2 % (0-3) Basophils % (Manual) 0 % (0-2) Band Neutrophils 0 % (0-8) Platelet Estimate Adequate Platelet Morphology Normal Hypochromasia 1+ Sodium Level 129 MMOL/L (136-145) 137 MMOL/L (136-145) Potassium Level 3.4 MMOL/L (3.5-5.1) 2.5 MMOL/L (3.5-5.1) Chloride Level 89 MMOL/L (98-107) 98 MMOL/L (98-107) Carbon Dioxide Level 21 MMOL/L (21-32) 23 MMOL/L (21-32) Anion Gap 19 mmol/L (5-15) 17 mmol/L (5-15) Blood Urea Nitrogen 91 mg/dL (7-18) 78 mg/dL (7-18) Creatinine 5.8 MG/DL (0.55-1.30) 5.0 MG/DL (0.55-1.30) Estimat Glomerular Filtration Rate 8.5 mL/min (>60) 10.1 mL/min (>60) Glucose Level 247 MG/DL (74-106) 267 MG/DL (74-106) Calcium Level 7.1 MG/DL (8.5-10.1) 7.0 MG/DL (8.5-10.1) Phosphorus Level 9.1 MG/DL (2.5-4.9) Magnesium Level 2.5 MG/DL (1.8-2.4) 2.0 MG/DL (1.8-2.4) Total Bilirubin 0.4 MG/DL (0.2-1.0) 0.3 MG/DL (0.2-1.0) Aspartate Amino Transf (AST/SGOT) 16 U/L (15-37) 14 U/L (15-37) Alanine Aminotransferase (ALT/SGPT) 14 U/L (12-78) 8 U/L (12-78) Alkaline Phosphatase 98 U/L (46-116) 83 U/L (46-116) Total Protein 6.8 G/DL (6.4-8.2) 5.8 G/DL (6.4-8.2) Albumin 1.7 G/DL (3.4-5.0) 1.5 G/DL (3.4-5.0) Globulin 5.1 g/dL 4.3 g/dL Albumin/Globulin Ratio 0.3 (1.0-2.7) 0.3 (1.0-2.7) Arterial Blood pH 7.438 (7.350-7.450) Arterial Blood Partial Pressure CO2 34.6 mmHg (35.0-45.0) Arterial Blood Partial Pressure O2 111.3 mmHg (75.0-100.0) Arterial Blood HCO3 22.9 mmol/L (22.0-26.0) Arterial Blood Oxygen Saturation 97.7 % (95-100) Arterial Blood Base Excess -1.0 (-2-2) Danilo Test Positive Pro-B-Type Natriuretic Peptide 3463 pg/mL (0-125) Objective: WDWN ETT in place reduced LOC reduced breath sounds bilaterally without rhonchi or wheeze [id number] without MRG NABS nontender no HSM; no distention feeding tube in place no CC some edema nonfocal with reduced ROM reviewed and edited Accucheck: 233 Torey Douglass MD Nov 20, 2019 11:27
--- NOTE | 2019-11-20 12:00 | NUR ---
NURSE NOTES: Patient mentation remains the same. Sinus rhythm on the panel monitor with 1st degree heart block. Patient remains orally intubated with size 7.5cm ET tube and 24cm at the lip line. Patient weaning on CPAP with pressure support 8, FiO2 30%, and PEEP 5. Patient tolerating with no sign of acute distress. Patient remains NPO. Gastrostomy tube remains patent and asymptomatic and clamped. Barron remains patent with cloudy yellow urine with sediment. Wound dressing dry and intact. Patient remains on low air loss mattress. Patient turned every two hours to protect skin. Patient remains edematous generalized, non-pitting. Left upper arm PICC line remains patent, asymptomatic, and running dopamine at 2mcg/kg/min at this time and normal saline at 75mL/hr. Blood pressure stable. Patient bed in low position with bed alarm on and call light in reach at this time. Will continue to monitor. Oral care done at this time. patient repositioned.
--- NOTE | 2019-11-20 12:50 | General Progress Note ---
Assessment/Plan Problem List: (1) Shock ICD Codes: R57.9 - Shock, unspecified SNOMED: 07543482 (2) Anemia due to acute blood loss ICD Codes: D62 - Acute posthemorrhagic anemia SNOMED: 474410762 (3) Hyperkalemia ICD Codes: E87.5 - Hyperkalemia SNOMED: 39153979 (4) Recurrent seizures ICD Codes: G40.909 - Epilepsy, unspecified, not intractable, without status epilepticus SNOMED: 24004236, 82201104 (5) Aspiration pneumonia ICD Codes: J69.0 - Pneumonitis due to inhalation of food and vomit SNOMED: 819554744 (6) ARF (acute renal failure) ICD Codes: N17.9 - Acute kidney failure, unspecified SNOMED: 31525358 (7) ATN (acute tubular necrosis) ICD Codes: N17.0 - Acute kidney failure with tubular necrosis SNOMED: 58586338 Status: stable Assessment/Plan: cont vent support resp care suctioning as needed iv abx pressors at renal dose ivf monitor renal fxn monitor labs and cbc transfuse as needed critical and guarded grim prognosis family considering withdrawl of care Subjective ROS Limited/Unobtainable: Yes Constitutional: Reports: malaise, weakness HEENT: Reports: no symptoms Cardiovascular: Reports: edema Respiratory: Reports: shortness of breath Gastrointestinal/Abdominal: Reports: difficulty swallowing Genitourinary: Reports: no symptoms Neurologic/Psychiatric: Reports: pre-existing deficit, seizure Endocrine: Reports: no symptoms Hematologic/Lymphatic: Reports: anemia Allergies: Coded Allergies: No Known Allergies (Verified , 12/31/09) All Systems: reviewed and negative except above Subjective bp improved. on lower dose dopamine. good uop. no fevers. GT replaced. renal fxn unchanged. family declined HD. renal fxn and urine output improving. Objective Last 24 Hour Vital Signs Date Time Temp Pulse Resp B/P (MAP) Pulse Ox O2 Delivery O2 Flow Rate FiO2 11/20/19 12:00 97.7 88 25 119/58 (78) 100 11/20/19 11:30 88 26 119/58 (78) 100 11/20/19 11:29 87 26 30 30 11/20/19 11:00 88 24 115/61 (79) 100 11/20/19 10:30 88 23 115/61 (79) 100 11/20/19 10:00 86 24 100/53 (69) 100 11/20/19 09:30 88 22 107/59 (75) 100 11/20/19 09:29 88 22 30 30 11/20/19 09:00 88 19 112/61 (78) 100 11/20/19 08:30 91 19 105/60 (75) 100 11/20/19 08:00 97.8 99 25 146/76 (99) 100 11/20/19 08:00 Mechanical Ventilator 11/20/19 08:00 30 11/20/19 07:25 103 28 30 11/20/19 07:00 111/59 11/20/19 07:00 90 22 111/59 (76) 100 11/20/19 06:30 89 17 11/20/19 06:00 89 23 108/60 (76) 100 11/20/19 06:00 108/60 11/20/19 05:30 86 20 125/72 (89) 100 11/20/19 05:00 125/72 11/20/19 05:00 88 17 123/67 (85) 100 11/20/19 05:00 90 19 30 11/20/19 04:30 92 15 165/81 (109) 100 11/20/19 04:00 97.8 94 18 169/83 (111) 100 11/20/19 04:00 88 11/20/19 04:00 169/83 11/20/19 04:00 Mechanical Ventilator 11/20/19 04:00 30 11/20/19 03:30 92 17 156/84 (108) 100 11/20/19 03:08 90 21 30 11/20/19 03:00 137/80 11/20/19 03:00 91 21 137/80 (99) 100 11/20/19 02:30 92 23 134/76 (95) 100 11/20/19 02:00 90 17 134/69 (90) 100 11/20/19 02:00 134/69 11/20/19 01:30 92 20 133/74 (93) 100 11/20/19 01:30 89 19 30 11/20/19 01:00 88 17 133/70 (91) 100 11/20/19 01:00 133/70 11/20/19 00:30 91 20 149/76 (100) 100 11/20/19 00:00 30 11/20/19 00:00 146/78 11/20/19 00:00 98.2 94 25 146/78 (100) 100 11/20/19 00:00 Mechanical Ventilator 11/20/19 00:00 89 11/19/19 23:40 92 17 30 11/19/19 23:30 91 17 147/74 (98) 100 11/19/19 23:00 91 18 156/73 (100) 100 11/19/19 22:30 90 18 148/76 (100) 100 11/19/19 22:00 90 19 80/48 (59) 100 11/19/19 22:00 80/48 11/19/19 21:30 94 20 135/66 (89) 99 11/19/19 21:20 97 24 30 11/19/19 21:19 101 35 144/70 (94) 100 11/19/19 21:11 99 33 90/55 (67) 98 11/19/19 21:00 81/41 11/19/19 21:00 94 28 81/41 (54) 97 11/19/19 20:30 99 17 106/60 (75) 100 11/19/19 20:00 Mechanical Ventilator 11/19/19 20:00 98.0 89 19 160/75 (103) 99 11/19/19 20:00 30 11/19/19 20:00 160/75 11/19/19 20:00 88 11/19/19 19:56 142/70 11/19/19 19:34 92 27 142/70 (94) 99 11/19/19 19:30 91 21 88/59 (69) 100 11/19/19 19:05 87 26 30 11/19/19 19:00 153/70 11/19/19 18:30 88 19 124/74 (91) 100 11/19/19 18:00 146/72 11/19/19 18:00 88 19 146/72 (96) 100 11/19/19 17:30 88 20 157/73 (101) 100 11/19/19 17:06 90 25 30 11/19/19 17:00 143/103 11/19/19 17:00 90 21 143/103 (116) 100 11/19/19 16:30 88 18 123/61 (81) 100 11/19/19 16:00 30 11/19/19 16:00 98.0 87 17 143/103 (116) 100 11/19/19 16:00 87 11/19/19 16:00 123/58 11/19/19 16:00 Mechanical Ventilator 11/19/19 15:30 89 21 129/63 (85) 100 11/19/19 15:01 90 21 30 11/19/19 15:00 122/63 11/19/19 15:00 88 17 122/63 (82) 99 11/19/19 14:30 89 14 122/64 (83) 99 11/19/19 14:00 89 16 122/64 (83) 99 11/19/19 13:33 100 11/19/19 13:30 93 26 124/70 (88) 100 11/19/19 13:30 93 26 30 11/19/19 13:00 89 24 123/64 (83) 100 Intake and Output 11/19/19 11/20/19 19:00 07:00 Intake Total 61.235 ml 1363.720 ml Output Total 1099 ml 1080 ml Balance -1037.765 ml 283.720 ml IV Total 61.235 ml 1363.720 ml Output Urine Total 1099 ml 1080 ml # Bowel Movements 1 2 Laboratory Tests 11/20/19 05:56: White Blood Count 9.5, Red Blood Count 3.10L, Hemoglobin 8.8L, Hematocrit 26.0L , Mean Corpuscular Volume 84, Mean Corpuscular Hemoglobin 28.3, Mean Corpuscular Hemoglobin Concent 33.7, Red Cell Distribution Width 13.5, Platelet Count 180, Mean Platelet Volume 5.6L, Neutrophils (%) (Auto) 76.1H, Lymphocytes (%) (Auto) 11.3L, Monocytes (%) (Auto) 8.1, Eosinophils (%) (Auto) 4.1H, Basophils (%) (Auto) 0.4, Sodium Level 137, Potassium Level 2.5*L, Chloride Level 98, Carbon Dioxide Level 23, Anion Gap 17H, Blood Urea Nitrogen 78H, Creatinine 5.0H, Estimat Glomerular Filtration Rate 10.1, Glucose Level 267H, Calcium Level 7.0L, Magnesium Level 2.0, Total Bilirubin 0.3, Aspartate Amino Transf (AST/SGOT) 14L, Alanine Aminotransferase (ALT/SGPT) 8L, Alkaline Phosphatase 83, Pro-B-Type Natriuretic Peptide 3463H, Total Protein 5.8L, Albumin 1.5L, Globulin 4.3, Albumin/Globulin Ratio 0.3L 11/20/19 11:39: Arterial Blood pH 7.443, Arterial Blood Partial Pressure CO2 31.8L, Arterial Blood Partial Pressure O2 113.2H, Arterial Blood HCO3 21.3L, Arterial Blood Oxygen Saturation 97.8, Arterial Blood Base Excess -2.3L, Danilo Test Positive Height (Feet): 5 Height (Inches): 3.00 Weight (Pounds): 176 Objective General Appearance: WD/WN, lethargic Neck: normal alignment, supple, normal inspection Cardiovascular: normal rate, regular rhythm Respiratory/Chest: no respiratory distress, no accessory muscle use, rhonchi - bilaterally Abdomen: normal bowel sounds, non tender, soft, no organomegaly, no mass Extremities: normal range of motion, non-tender Neurologic: unresponsive, aphasia Jeffrey Crowder MD Nov 20, 2019 12:50
--- NOTE | 2019-11-20 13:01 | Surgery Progress Note ---
Surgery Progress Note Subjective Additional Comments ill appearing in ICU labs noted imaging reviewed on support Objective Last 24 Hour Vital Signs Date Time Temp Pulse Resp B/P (MAP) Pulse Ox O2 Delivery O2 Flow Rate FiO2 11/20/19 12:00 97.7 88 25 119/58 (78) 100 11/20/19 11:30 88 26 119/58 (78) 100 11/20/19 11:29 87 26 30 30 11/20/19 11:00 88 24 115/61 (79) 100 11/20/19 10:30 88 23 115/61 (79) 100 11/20/19 10:00 86 24 100/53 (69) 100 11/20/19 09:30 88 22 107/59 (75) 100 11/20/19 09:29 88 22 30 30 11/20/19 09:00 88 19 112/61 (78) 100 11/20/19 08:30 91 19 105/60 (75) 100 11/20/19 08:00 97.8 99 25 146/76 (99) 100 11/20/19 08:00 Mechanical Ventilator 11/20/19 08:00 30 11/20/19 07:25 103 28 30 11/20/19 07:00 111/59 11/20/19 07:00 90 22 111/59 (76) 100 11/20/19 06:30 89 17 11/20/19 06:00 89 23 108/60 (76) 100 11/20/19 06:00 108/60 11/20/19 05:30 86 20 125/72 (89) 100 11/20/19 05:00 125/72 11/20/19 05:00 88 17 123/67 (85) 100 11/20/19 05:00 90 19 30 11/20/19 04:30 92 15 165/81 (109) 100 11/20/19 04:00 97.8 94 18 169/83 (111) 100 11/20/19 04:00 88 11/20/19 04:00 169/83 11/20/19 04:00 Mechanical Ventilator 11/20/19 04:00 30 11/20/19 03:30 92 17 156/84 (108) 100 11/20/19 03:08 90 21 30 11/20/19 03:00 137/80 11/20/19 03:00 91 21 137/80 (99) 100 11/20/19 02:30 92 23 134/76 (95) 100 11/20/19 02:00 90 17 134/69 (90) 100 11/20/19 02:00 134/69 11/20/19 01:30 92 20 133/74 (93) 100 11/20/19 01:30 89 19 30 11/20/19 01:00 88 17 133/70 (91) 100 11/20/19 01:00 133/70 11/20/19 00:30 91 20 149/76 (100) 100 11/20/19 00:00 30 11/20/19 00:00 146/78 11/20/19 00:00 98.2 94 25 146/78 (100) 100 11/20/19 00:00 Mechanical Ventilator 11/20/19 00:00 89 11/19/19 23:40 92 17 30 11/19/19 23:30 91 17 147/74 (98) 100 11/19/19 23:00 91 18 156/73 (100) 100 11/19/19 22:30 90 18 148/76 (100) 100 11/19/19 22:00 90 19 80/48 (59) 100 11/19/19 22:00 80/48 11/19/19 21:30 94 20 135/66 (89) 99 11/19/19 21:20 97 24 30 11/19/19 21:19 101 35 144/70 (94) 100 11/19/19 21:11 99 33 90/55 (67) 98 11/19/19 21:00 81/41 11/19/19 21:00 94 28 81/41 (54) 97 11/19/19 20:30 99 17 106/60 (75) 100 11/19/19 20:00 Mechanical Ventilator 11/19/19 20:00 98.0 89 19 160/75 (103) 99 11/19/19 20:00 30 11/19/19 20:00 160/75 11/19/19 20:00 88 11/19/19 19:56 142/70 11/19/19 19:34 92 27 142/70 (94) 99 11/19/19 19:30 91 21 88/59 (69) 100 11/19/19 19:05 87 26 30 11/19/19 19:00 153/70 3/14/20 18:30 88 19 124/74 (91) 100 11/19/19 18:00 146/72 11/19/19 18:00 88 19 146/72 (96) 100 11/19/19 17:30 88 20 157/73 (101) 100 11/19/19 17:06 90 25 30 11/19/19 17:00 143/103 11/19/19 17:00 90 21 143/103 (116) 100 11/19/19 16:30 88 18 123/61 (81) 100 11/19/19 16:00 30 11/19/19 16:00 98.0 87 17 143/103 (116) 100 11/19/19 16:00 87 11/19/19 16:00 123/58 11/19/19 16:00 Mechanical Ventilator 11/19/19 15:30 89 21 129/63 (85) 100 11/19/19 15:01 90 21 30 11/19/19 15:00 122/63 11/19/19 15:00 88 17 122/63 (82) 99 11/19/19 14:30 89 14 122/64 (83) 99 11/19/19 14:00 89 16 122/64 (83) 99 11/19/19 13:33 100 11/19/19 13:30 93 26 124/70 (88) 100 11/19/19 13:30 93 26 30 I&O Intake and Output 11/19/19 11/20/19 19:00 07:00 Intake Total 61.235 ml 1363.720 ml Output Total 1099 ml 1080 ml Balance -1037.765 ml 283.720 ml IV Total 61.235 ml 1363.720 ml Output Urine Total 1099 ml 1080 ml # Bowel Movements 1 2 Dressing: other Wound: other Drains: other Cardiovascular: RSR Respiratory: decreased breath sounds Abdomen: soft, non-tender, present bowel sounds Extremities: no cyanosis Laboratory Tests Test 11/20/19 05:56 11/20/19 11:39 White Blood Count 9.5 K/UL (4.8-10.8) Red Blood Count 3.10 M/UL (4.20-5.40) L Hemoglobin 8.8 G/DL (12.0-16.0) L Hematocrit 26.0 % (37.0-47.0) L Mean Corpuscular Volume 84 FL (80-99) Mean Corpuscular Hemoglobin 28.3 PG (27.0-31.0) Mean Corpuscular Hemoglobin Concent 33.7 G/DL (32.0-36.0) Red Cell Distribution Width 13.5 % (11.6-14.8) Platelet Count 180 K/UL (150-450) Mean Platelet Volume 5.6 FL (6.5-10.1) L Neutrophils (%) (Auto) 76.1 % (45.0-75.0) H Lymphocytes (%) (Auto) 11.3 % (20.0-45.0) L Monocytes (%) (Auto) 8.1 % (1.0-10.0) Eosinophils (%) (Auto) 4.1 % (0.0-3.0) H Basophils (%) (Auto) 0.4 % (0.0-2.0) Sodium Level 137 MMOL/L (136-145) Potassium Level 2.5 MMOL/L (3.5-5.1) *L Chloride Level 98 MMOL/L (98-107) Carbon Dioxide Level 23 MMOL/L (21-32) Anion Gap 17 mmol/L (5-15) H Blood Urea Nitrogen 78 mg/dL (7-18) H Creatinine 5.0 MG/DL (0.55-1.30) H Estimat Glomerular Filtration Rate 10.1 mL/min (>60) Glucose Level 267 MG/DL (74-106) H Calcium Level 7.0 MG/DL (8.5-10.1) L Magnesium Level 2.0 MG/DL (1.8-2.4) Total Bilirubin 0.3 MG/DL (0.2-1.0) Aspartate Amino Transf (AST/SGOT) 14 U/L (15-37) L Alanine Aminotransferase (ALT/SGPT) 8 U/L (12-78) L Alkaline Phosphatase 83 U/L (46-116) Pro-B-Type Natriuretic Peptide 3463 pg/mL (0-125) H Total Protein 5.8 G/DL (6.4-8.2) L Albumin 1.5 G/DL (3.4-5.0) L Globulin 4.3 g/dL Albumin/Globulin Ratio 0.3 (1.0-2.7) L Arterial Blood pH 7.443 (7.350-7.450) Arterial Blood Partial Pressure CO2 31.8 mmHg (35.0-45.0) L Arterial Blood Partial Pressure O2 113.2 mmHg (75.0-100.0) H Arterial Blood HCO3 21.3 mmol/L (22.0-26.0) L Arterial Blood Oxygen Saturation 97.8 % (95-100) Arterial Blood Base Excess -2.3 (-2-2) L Danilo Test Positive Plan Problems: (1) Decubitus skin ulcer Assessment & Plan: Pt presented on admission with multiple pressure injuries. DTPI sacrum . Base of injury is indurated,purple with areas that are maroon in colour. An area of fluctuance noted at sacrococcygeal area. Borders are irregular (L)8.5cm x (W)9.3cm.Historical scar also noted within base of Sacral pressure injury. DTPI medial L heel. Base of injury fluctuant,maroon with surrounding non- blanching erythema. (L)1.7cm x (W)1.6cm. DTPI medial R heel. Base of injury is maroon and fluctuant(L)3.1cm x (W)2.5cm. Tx.Plan: Apply Moisture Barrier Paste to Sacrum. Cover with Optifoam drsg. Change every 3 days and prn. Apply Cavilon Skin Barrier to both heels. Cover each heel with Optifoam drsg. Change every 7 days and prn. APM/VALERIE Mattress. Reposition at least every 2 hours or as tolerated. Off-load heels with pillow. Patient is at high risk for deterioration of wounds opening of DTI and formation of worsening decubitus will need close monitoring and significant amount of care to ensure improvement. Nutritional optimization. Will follow with recommendations thank you (2) Failure to thrive in adult Assessment & Plan: Not tolerating tube feeds regurgitation high residuals DAILY ESTIMATED NEEDS: Needs based on Critical care, sepsis, wound, ARF/ 57.7kg abw 22-30 kcals/kg 7088-8824 total kcals 0.8-1.3 (increase w/ renal fxn improvement) g protein/kg 46-75 g total protein 25-30 mL/kg 1459-8485 total fluid mLs NUTRITION DIAGNOSIS: 1) Swallowing difficulty r/t dysphagia as evidenced by pt is Jtube dep, currently orally intubated, NPO. 2) Altered nutrition related lab values r/t respiratory failure, DM, ARF, sepsis as evidenced by COW >45*, elev pH 7.616*, elev K (7.2*), elev creat (8.8), elev BUN (178), elev BG (228), elev LA, elev wbc (22.2*) CURRENT TF:NPO ENTERAL NUTRITION RECOMMENDATIONS: Nepro @ 40ml/hr x 22 hrs to provide 880ml, 1584kcal, 71g prot, 640ml free water * Rec Nepro at this time given ARF, +hyperkalemia w/ creat 8.8. * When medically appropriate, initiate Nepro @ 20ml/hr x 6 hrs, advance 10ml q 4 -6 hrs as tolerated to goal rate * Hold 1 hr before and after Synthroid med * HOB over 30 degrees/ water flush per MD ---- W/ improved renal fxn and normalized lytes, rec Glucerna 1.2 @ 60ml/hr x 22 hrs to provide 1320ml, 1584 kcal, 79g pro, 1063ml free H2O ADDITIONAL RECOMMENDATIONS: 1) Monitor lytes and renal fxn closely -> admitted w/ creat > 8.0, creat previous adm < 2.0 -> K critically elev, s/p kayexalate. 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 (3) Acute respiratory failure Assessment & Plan: As per pulmonology available if trach needs Jared Mcarthur Nov 20, 2019 13:01
--- NOTE | 2019-11-20 13:30 | NUR ---
NURSE NOTES: Patient ventilator reporting that patient not getting full volume. Patient has been on CPAP with pressure support 8, FiO2 30%, PEEP 5 since 929. ABG done. Will notify Dr Douglass regarding weaning trial and ABG result.
--- NOTE | 2019-11-20 13:30 | NUR ---
RESPIRATORY NOTES: Weaning stopped at 1330 due to SOB. Placed back onto ACVC settings.
[2019-11-20] MEDS ORDERED: LORazepam Inj 2mg/ml 1ml IV PRN (14:00)
[2019-11-20] MEDS ORDERED: NS 275ml ONE (14:05)
[2019-11-20] MEDS ORDERED: Tubing IV Secondary IV ONE (14:05)
--- NOTE | 2019-11-20 16:00 | NUR ---
NURSE NOTES: Patient mentation remains the same. Sinus rhythm on the shipping technician with 1st degree heart block. Patient remains orally intubated with size 7.5cm ET tube and 24cm at the lip line. Ventilator setting AC 12, TV 350, FIO2 30%, and PEEP 5. Patient tolerating with no sign of acute distress. Patient remains NPO. Gastrostomy tube remains patent and asymptomatic and clamped. Barron remains patent with cloudy yellow urine with sediment. Wound dressing dry and intact. Patient remains on low air loss mattress. Patient turned every two hours to protect skin. Patient remains edematous generalized, non-pitting. Left upper arm PICC line remains patent, asymptomatic, and running dopamine at 2mcg/kg/min at this time and normal saline at 75mL/hr. Blood pressure stable. Patient bed in low position with bed alarm on and call light in reach at this time. Will continue to monitor. Oral care done at this time. patient repositioned.
[2019-11-20] MEDS: cefTRIAXone 1 GM in D5W 55 ML IVPB SCH (17:47)
--- NOTE | 2019-11-20 18:00 | NUR ---
NURSE NOTES: Bed bath done at this time. Patient repositioned. Patient showing no sign of acute distress. Wound dressing changed. Bed in low position with bed alarm on and call light in reach. Will continue to monitor.
--- NOTE | 2019-11-20 18:03 | General Progress Note ---
Assessment/Plan Status: stable Assessment/Plan: Assessment - h/o gastroparesis and GT feed intolerance - GJ tube dislodged and replaced with G tube - Resp failure, intubated - OBS - Sepeis, shock - CRF - Poor Px Recommendations - OK to use GT for meds. Hold feeds - abx / supportive care - elevate HOB - can re-address G to J conversion once stabilized Subjective Allergies: Coded Allergies: No Known Allergies (Verified , 12/31/09) Subjective Above noted undergoing weaning attempts Objective Last 24 Hour Vital Signs Date Time Temp Pulse Resp B/P (MAP) Pulse Ox O2 Delivery O2 Flow Rate FiO2 11/20/19 16:00 30 11/20/19 16:00 Mechanical Ventilator 11/20/19 16:00 97.4 86 23 134/61 (85) 100 11/20/19 15:30 86 18 116/59 (78) 100 11/20/19 15:29 83 17 30 11/20/19 15:00 87 17 124/60 (81) 100 11/20/19 14:30 83 16 118/65 (82) 100 11/20/19 14:00 86 18 130/58 (82) 100 11/20/19 13:30 89 18 129/57 (81) 100 11/20/19 13:29 87 17 30 30 11/20/19 13:00 87 23 137/62 (87) 100 11/20/19 12:30 89 24 126/61 (82) 100 11/20/19 12:00 Mechanical Ventilator 11/20/19 12:00 89 11/20/19 12:00 97.7 88 25 119/58 (78) 100 11/20/19 12:00 30 11/20/19 11:30 88 26 119/58 (78) 100 11/20/19 11:29 87 26 30 30 11/20/19 11:00 88 24 115/61 (79) 100 11/20/19 10:30 88 23 115/61 (79) 100 11/20/19 10:00 86 24 100/53 (69) 100 11/20/19 09:30 88 22 107/59 (75) 100 11/20/19 09:29 88 22 30 30 11/20/19 09:00 88 19 112/61 (78) 100 11/20/19 08:30 91 19 105/60 (75) 100 11/20/19 08:00 89 11/20/19 08:00 97.8 99 25 146/76 (99) 100 11/20/19 08:00 Mechanical Ventilator 11/20/19 08:00 30 11/20/19 07:25 103 28 30 11/20/19 07:00 111/59 11/20/19 07:00 90 22 111/59 (76) 100 11/20/19 06:30 89 17 11/20/19 06:00 89 23 108/60 (76) 100 11/20/19 06:00 108/60 11/20/19 05:30 86 20 125/72 (89) 100 11/20/19 05:00 125/72 11/20/19 05:00 88 17 123/67 (85) 100 11/20/19 05:00 90 19 30 11/20/19 04:30 92 15 165/81 (109) 100 11/20/19 04:00 97.8 94 18 169/83 (111) 100 11/20/19 04:00 88 11/20/19 04:00 169/83 11/20/19 04:00 Mechanical Ventilator 11/20/19 04:00 30 11/20/19 03:30 92 17 156/84 (108) 100 11/20/19 03:08 90 21 30 11/20/19 03:00 137/80 11/20/19 03:00 91 21 137/80 (99) 100 11/20/19 02:30 92 23 134/76 (95) 100 11/20/19 02:00 90 17 134/69 (90) 100 11/20/19 02:00 134/69 11/20/19 01:30 92 20 133/74 (93) 100 11/20/19 01:30 89 19 30 11/20/19 01:00 88 17 133/70 (91) 100 11/20/19 01:00 133/70 11/20/19 00:30 91 20 149/76 (100) 100 11/20/19 00:00 30 11/20/19 00:00 146/78 11/20/19 00:00 98.2 94 25 146/78 (100) 100 11/20/19 00:00 Mechanical Ventilator 11/20/19 00:00 89 11/19/19 23:40 92 17 30 11/19/19 23:30 91 17 147/74 (98) 100 11/19/19 23:00 91 18 156/73 (100) 100 11/19/19 22:30 90 18 148/76 (100) 100 11/19/19 22:00 90 19 80/48 (59) 100 11/19/19 22:00 80/48 11/19/19 21:30 94 20 135/66 (89) 99 11/19/19 21:20 97 24 30 11/19/19 21:19 101 35 144/70 (94) 100 11/19/19 21:11 99 33 90/55 (67) 98 11/19/19 21:00 81/41 11/19/19 21:00 94 28 81/41 (54) 97 11/19/19 20:30 99 17 106/60 (75) 100 11/19/19 20:00 Mechanical Ventilator 11/19/19 20:00 98.0 89 19 160/75 (103) 99 11/19/19 20:00 30 11/19/19 20:00 160/75 11/19/19 20:00 88 11/19/19 19:56 142/70 11/19/19 19:34 92 27 142/70 (94) 99 11/19/19 19:30 91 21 88/59 (69) 100 11/19/19 19:05 87 26 30 11/19/19 19:00 153/70 11/19/19 18:30 88 19 124/74 (91) 100 Intake and Output 11/19/19 11/20/19 19:00 07:00 Intake Total 61.235 ml 1363.720 ml Output Total 1099 ml 1080 ml Balance -1037.765 ml 283.720 ml IV Total 61.235 ml 1363.720 ml Output Urine Total 1099 ml 1080 ml # Bowel Movements 1 2 Laboratory Tests 11/20/19 05:56: White Blood Count 9.5, Red Blood Count 3.10L, Hemoglobin 8.8L, Hematocrit 26.0L , Mean Corpuscular Volume 84, Mean Corpuscular Hemoglobin 28.3, Mean Corpuscular Hemoglobin Concent 33.7, Red Cell Distribution Width 13.5, Platelet Count 180, Mean Platelet Volume 5.6L, Neutrophils (%) (Auto) 76.1H, Lymphocytes (%) (Auto) 11.3L, Monocytes (%) (Auto) 8.1, Eosinophils (%) (Auto) 4.1H, Basophils (%) (Auto) 0.4, Sodium Level 137, Potassium Level 2.5*L, Chloride Level 98, Carbon Dioxide Level 23, Anion Gap 17H, Blood Urea Nitrogen 78H, Creatinine 5.0H, Estimat Glomerular Filtration Rate 10.1, Glucose Level 267H, Calcium Level 7.0L, Magnesium Level 2.0, Total Bilirubin 0.3, Aspartate Amino Transf (AST/SGOT) 14L, Alanine Aminotransferase (ALT/SGPT) 8L, Alkaline Phosphatase 83, Pro-B-Type Natriuretic Peptide 3463H, Total Protein 5.8L, Albumin 1.5L, Globulin 4.3, Albumin/Globulin Ratio 0.3L 11/20/19 11:39: Arterial Blood pH 7.443, Arterial Blood Partial Pressure CO2 31.8L, Arterial Blood Partial Pressure O2 113.2H, Arterial Blood HCO3 21.3L, Arterial Blood Oxygen Saturation 97.8, Arterial Blood Base Excess -2.3L, Danilo Test Positive Height (Feet): 5 Height (Inches): 3.00 Weight (Pounds): 176 Objective Debilitated AA woman in ICU on vent NCAT (+) ETT coarse BS/karol RR abd soft, NT, GT in good position no edema Non verbal Darrell rGiffith MD Nov 20, 2019 18:03
--- NOTE | 2019-11-20 19:30 | NUR ---
HAND-OFF: Report given to FELY Thornton. Patient showing no sign of acute distress. Endorsed to follow up.
--- NOTE | 2019-11-20 19:40 | NUR ---
RESPIRATORY NOTE: Received pt on ordered vent settings. No resp distress noted. ETT is patent and secured. Suctioned pt prn. Vent alarms are on and audible. Vent is plugged into red outlet. Will monitor pt progress.
--- NOTE | 2019-11-20 20:00 | NUR ---
-NURSE NOTES: received report from brionna rn pt orally intubated -vent o2 sat 98 o/o no acute resp distress reposition nd suction
[2019-11-20] MEDS: Dyna-Hex 2% Top Sol 2oz TOPIC SCH (20:36)
--- NOTE | 2019-11-20 22:00 | NUR ---
NURSE NOTES: reposition and suction no acute distress noted
[2019-11-21] VITALS (44 sets, daily range): BP systolic 105–164; BP diastolic 63–94
--- NOTE | 2019-11-21 | NUR ---
NURSE NOTES: condition un change
[2019-11-21] MEDS: NovoLOG Insulin Flexpen SUBQ SCH ×4 (00:41→17:53)
[2019-11-21] MEDS: DOPamine 400mg/250ml 250 ML IV SCH (02:42)
--- NOTE | 2019-11-21 04:00 | NUR ---
NURSE NOTES: COMPLETE BED BATH
--- NOTE | 2019-11-21 06:00 | NUR ---
NURSE NOTES: BS 167 INSULIN GIVEN ORDER
--- NOTE | 2019-11-21 07:10 | NUR ---
NURSE NOTES: Received patient from FELY Thornton. Patient opens eyes but does not track. Patient pupils sluggish to respond. 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 Patient orally intubated with ET tube 7.5 and 24cm at the lip line. Ventilator setting AC 12, tidal volume 350, FiO2 30%, and PEEP 5. Patient tolerating with no distress. Patient NPO per family request. Patient has perera for urine retention that is patent, asymptomatic, and draining cloudy yellow urine. Patient has sacral stage 2 partial thickness pressure injury, left heel deep tissue injury, left hip pink frank, and right thigh/abdomen closed blisters. Patient on P200 mattress at this time. Patient will be turned every 2 hours. Left upper arm PICC noted with dressing dry and intact. Patient receiving dopamine at 2mcg/kg/min and normal saline at 75mL/hr. Patient does not have labs orders for this morning. Will ask Dr Crowder if he would like labs ordered this morning when he rounds on the patient. Patient bed in low position with bed alarm on and call light in reach at this time. Will continue to monitor. Patient repositioned and oral care performed at this time.
--- NOTE | 2019-11-21 07:25 | NUR ---
NURSE NOTES: Dr Crowder rounded on the patient. Notified him that no labs were ordered for this morning. Received order for CBC and CMP. Orders read back, verified, and placed. Notified him that Dr Peña has ordered for the dopamine to be kept at 4mcg/kg/min but the drip is currently running at 2mcg/kg/min and the blood pressure is elevated. Dr Crowder reported that it is okay to keep the dopamine at 2mcg/kg/min. Order read back, verified, and placed as an other nursing order.
--- NOTE | 2019-11-21 07:44 | Progress Note ---
DATE: 11/20/2019 CARDIOLOGY PROGRESS NOTE SUBJECTIVE: The patient remains on pressors, tapering doses of dopamine, however in progress. OBJECTIVE: VITAL SIGNS: Blood pressure 119/58, pulse 88, respiratory rate 25, afebrile. Orally intubated. Mechanically ventilated. LUNGS: Bilateral breath sounds. Rhonchi. CARDIAC: Regular rhythm and rate. Normal S1, S2. A 1/6 systolic murmur at the apex. ABDOMEN: Soft, nontender. G-tube intact. Nutrition by feeding tube once GJ-tube conversion complete. EXTREMITIES: Trace edema. LABORATORY AND DIAGNOSTIC DATA: White count 9.5, hemoglobin 8.8. Sodium 137, potassium 2.5, BUN , creatinine 5. Pro-natriuretic peptide 3400. ABG 7.44, 32, 113. Chest x-ray today revealed increasing congestive heart failure and pulmonary edema with small pleural effusion on the left and retrocardiac infiltrate. IMPRESSION: 1. Respiratory failure. 2. Healthcare-associated pneumonia. 3. Acute on chronic diastolic congestive heart failure. 4. Acute renal failure. 5. Sepsis with shock. 6. Hypokalemia. 7. Severe protein-calorie malnutrition. 8. Pleural effusion. PLAN: 1. Weaning off dopamine. 2. No plans for dialysis. 3. Antimicrobials, ventilator support. 4. No diuretic therapy at this time. 5. DVT prophylaxis. 6. Nutrition by feeding tube. Kavon Peña M.D. DR: GOVIND JOB#: [id number] CC:
--- NOTE | 2019-11-21 08:13 | General Progress Note ---
Assessment/Plan Problem List: (1) Shock ICD Codes: R57.9 - Shock, unspecified SNOMED: 79765404 (2) Anemia due to acute blood loss ICD Codes: D62 - Acute posthemorrhagic anemia SNOMED: 328673291 (3) Hyperkalemia ICD Codes: E87.5 - Hyperkalemia SNOMED: 54532188 (4) Recurrent seizures ICD Codes: G40.909 - Epilepsy, unspecified, not intractable, without status epilepticus SNOMED: 44016331, 17222871 (5) Aspiration pneumonia ICD Codes: J69.0 - Pneumonitis due to inhalation of food and vomit SNOMED: 820655202 (6) ARF (acute renal failure) ICD Codes: N17.9 - Acute kidney failure, unspecified SNOMED: 51593135 (7) ATN (acute tubular necrosis) ICD Codes: N17.0 - Acute kidney failure with tubular necrosis SNOMED: 10037220 Status: stable Assessment/Plan: cont vent support resp care suctioning as needed iv abx pressors at renal dose ivf monitor renal fxn monitor labs and cbc transfuse as needed critical and guarded grim prognosis family considering withdrawl of care Subjective ROS Limited/Unobtainable: Yes Constitutional: Reports: fever, malaise HEENT: Reports: no symptoms Cardiovascular: Reports: no symptoms Respiratory: Reports: cough, shortness of breath Gastrointestinal/Abdominal: Reports: difficulty swallowing Genitourinary: Reports: no symptoms Neurologic/Psychiatric: Reports: pre-existing deficit, seizure Endocrine: Reports: no symptoms Hematologic/Lymphatic: Reports: no symptoms Allergies: Coded Allergies: No Known Allergies (Verified , 12/31/09) All Systems: reviewed and negative except above Subjective bp improved. on lower dose dopamine. good uop. no fevers. GT replaced. renal fxn improving. family declined HD. renal fxn and urine output improving. labs pending for this am Objective Last 24 Hour Vital Signs Date Time Temp Pulse Resp B/P (MAP) Pulse Ox O2 Delivery O2 Flow Rate FiO2 11/21/19 07:30 93 23 155/68 (97) 100 11/21/19 07:28 88 19 30 11/21/19 07:00 89 19 151/68 (95) 100 11/21/19 06:30 89 21 153/70 (97) 100 11/21/19 06:30 89 17 3/20 06:00 91 22 154/64 (94) 100 11/21/19 05:30 92 23 133/79 (97) 100 11/21/19 05:00 99 24 164/75 (104) 86 11/21/19 04:53 98 27 30 11/21/19 04:30 95 24 150/80 (103) 86 11/21/19 04:00 91 18 152/72 (98) 90 11/21/19 04:00 Mechanical Ventilator 11/21/19 04:00 30 11/21/19 04:00 91 11/21/19 03:30 95 152/63 (92) 86 11/21/19 03:07 93 28 30 11/21/19 03:00 88 22 145/70 (95) 100 11/21/19 02:42 130/94 11/21/19 02:30 88 19 132/94 (107) 100 11/21/19 02:00 89 21 139/73 (95) 100 11/21/19 01:30 88 20 142/70 (94) 100 11/21/19 01:06 94 21 30 11/21/19 01:00 85 17 133/73 (93) 100 11/21/19 00:30 86 19 140/78 (98) 100 11/21/19 00:00 Mechanical Ventilator 11/21/19 00:00 30 11/21/19 00:00 93 11/21/19 00:00 91 21 146/69 (94) 100 11/21/19 00:00 98.6 91 21 146/69 (94) 100 11/20/19 23:30 90 23 142/65 (90) 100 11/20/19 23:00 89 26 146/70 (95) 99 11/20/19 22:55 85 18 30 11/20/19 22:30 86 18 141/66 (91) 100 11/20/19 22:00 86 18 136/64 (88) 100 11/20/19 21:30 87 21 142/68 (92) 100 11/20/19 21:12 86 17 30 11/20/19 21:00 85 20 140/66 (90) 100 11/20/19 20:30 86 19 133/67 (89) 100 11/20/19 20:00 89 11/20/19 20:00 98.0 92 22 152/69 (96) 100 11/20/19 20:00 30 11/20/19 20:00 Mechanical Ventilator 11/20/19 19:40 84 18 30 30 11/20/19 19:30 87 19 140/63 (88) 100 11/20/19 19:00 140/63 11/20/19 19:00 91 23 139/64 (89) 100 11/20/19 18:30 86 18 131/63 (85) 100 11/20/19 18:17 131/63 11/20/19 18:00 86 20 136/62 (86) 100 11/20/19 17:30 86 17 131/62 (85) 100 11/20/19 17:00 87 17 133/58 (83) 100 11/20/19 17:00 131/62 11/20/19 17:00 86 17 30 11/20/19 16:30 86 17 126/67 (86) 100 11/20/19 16:04 126/67 11/20/19 16:00 89 11/20/19 16:00 30 11/20/19 16:00 Mechanical Ventilator 11/20/19 16:00 97.4 86 23 134/61 (85) 100 11/20/19 15:30 86 18 116/59 (78) 100 11/20/19 15:29 83 17 30 11/20/19 15:04 116/59 11/20/19 15:00 87 17 124/60 (81) 100 11/20/19 14:30 83 16 118/65 (82) 100 11/20/19 14:00 118/65 11/20/19 14:00 86 18 130/58 (82) 100 11/20/19 13:30 89 18 129/57 (81) 100 11/20/19 13:29 87 17 30 30 11/20/19 13:00 129/57 11/20/19 13:00 87 23 137/62 (87) 100 11/20/19 12:30 89 24 126/61 (82) 100 11/20/19 12:00 Mechanical Ventilator 11/20/19 12:00 89 11/20/19 12:00 97.7 88 25 119/58 (78) 100 11/20/19 12:00 131/71 11/20/19 12:00 30 11/20/19 11:30 88 26 119/58 (78) 100 11/20/19 11:29 87 26 30 30 11/20/19 11:00 88 24 115/61 (79) 100 11/20/19 11:00 119/58 11/20/19 10:30 88 23 115/61 (79) 100 11/20/19 10:00 115/61 11/20/19 10:00 86 24 100/53 (69) 100 11/20/19 09:30 88 22 107/59 (75) 100 11/20/19 09:29 88 22 30 30 11/20/19 09:00 107/59 11/20/19 09:00 88 19 112/61 (78) 100 11/20/19 08:30 91 19 105/60 (75) 100 Intake and Output 11/20/19 11/21/19 19:00 07:00 Intake Total 1428.488 ml 450 ml Output Total 825 ml 890 ml Balance 603.488 ml -440 ml IV Total 1428.488 ml 450 ml Output Urine Total 825 ml 890 ml # Bowel Movements 1 3 Laboratory Tests 11/20/19 11:39: Arterial Blood pH 7.443, Arterial Blood Partial Pressure CO2 31.8L, Arterial Blood Partial Pressure O2 113.2H, Arterial Blood HCO3 21.3L, Arterial Blood Oxygen Saturation 97.8, Arterial Blood Base Excess -2.3L, Danilo Test Positive Height (Feet): 5 Height (Inches): 3.00 Weight (Pounds): 170 Objective General Appearance: WD/WN, lethargic Neck: normal alignment, supple, normal inspection Cardiovascular: normal rate, regular rhythm Respiratory/Chest: no respiratory distress, no accessory muscle use, rhonchi - bilaterally Abdomen: normal bowel sounds, non tender, soft, no organomegaly, no mass Extremities: normal range of motion, non-tender Neurologic: unresponsive, aphasia Jeffrey Crowder MD Nov 21, 2019 08:13
[2019-11-21] MEDS: Pantoprazole Inj IVP SCH (09:08)
[2019-11-21] MEDS: levETIRAcetam 500mg/NS100ml 100 ML IVPB SCH ×2 (09:08→20:56)
[2019-11-21 09:48] LABS: BASOPHILS % (AUTO) 0.4 % (0.0-2.0); EOSINOPHILS % (AUTO) 3.7 % (0.0-3.0); HEMATOCRIT 28.6 % (37.0-47.0); HEMOGLOBIN 9.6 G/DL (12.0-16.0); LYMPHOCYTES % (AUTO) 10.7 % (20.0-45.0); MEAN CORPUSCULAR VOLUME 84 FL (80-99); MONOCYTES % (AUTO) 9.7 % (1.0-10.0); NEUTROPHILS % (AUTO) 75.5 % (45.0-75.0); PLATELET COUNT 201 K/UL (150-450); RED BLOOD COUNT 3.38 M/UL (4.20-5.40); RED CELL DISTRIBUTION WIDTH 13.8 % (11.6-14.8); WHITE BLOOD COUNT 11.4 K/UL (4.8-10.8)
[2019-11-21 09:53] LABS: ALANINE AMINOTRANSFERASE 11 U/L (12-78); ALBUMIN 1.6 G/DL (3.4-5.0); ALBUMIN/GLOBULIN RATIO 0.4 (1.0-2.7); ALKALINE PHOSPHATASE 94 U/L (46-116); ANION GAP 21 mmol/L (5-15); ASPARTATE AMINO TRANSFERASE 17 U/L (15-37); BILIRUBIN,TOTAL 0.3 MG/DL (0.2-1.0); BLOOD UREA NITROGEN 59 mg/dL (7-18); CALCIUM 6.7 MG/DL (8.5-10.1); CARBON DIOXIDE 18 MMOL/L (21-32); CHLORIDE 101 MMOL/L (98-107); CREATININE 4.4 MG/DL (0.55-1.30); SODIUM 140 MMOL/L (136-145)
[2019-11-21 09:55] LABS: POTASSIUM 2.5 MMOL/L (3.5-5.1)
--- NOTE | 2019-11-21 11:44 | Infectious Diseases Prog Note ---
"Assessment/Plan Assessment/Plan antibiotics : linezolid, meropenem A 1. 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 renal failure improving 3. diabetes mellitus 4. CHF 5. CVA 6. respiratory failure 7. leucocytosis improving P 1. continue linezolid 2 more days 2. continue ceftriaxone 3 more days 3. will follow up cultures Subjective ROS Limited/Unobtainable: Yes Allergies: Coded Allergies: No Known Allergies (Verified , 12/31/09) Objective Vital Signs Last 24 Hour Vital Signs Date Time Temp Pulse Resp B/P (MAP) Pulse Ox O2 Delivery O2 Flow Rate FiO2 11/21/19 10:55 89 20 30 11/21/19 09:20 90 16 30 11/21/19 09:00 89 18 140/72 (94) 100 11/21/19 08:30 90 19 154/67 (96) 100 11/21/19 08:00 97.5 92 20 156/72 (100) 100 11/21/19 07:30 93 23 155/68 (97) 100 11/21/19 07:28 88 19 30 11/21/19 07:00 89 19 151/68 (95) 100 11/21/19 06:30 89 21 153/70 (97) 100 11/21/19 06:30 89 17 11/21/19 06:00 91 22 154/64 (94) 100 11/21/19 05:30 92 23 133/79 (97) 100 11/21/19 05:00 99 24 164/75 (104) 86 11/21/19 04:53 98 27 30 11/21/19 04:30 95 24 150/80 (103) 86 11/21/19 04:00 91 18 152/72 (98) 90 11/21/19 04:00 Mechanical Ventilator 11/21/19 04:00 30 11/21/19 04:00 91 11/21/19 03:30 95 152/63 (92) 86 11/21/19 03:07 93 28 30 11/21/19 03:00 88 22 145/70 (95) 100 11/21/19 02:42 130/94 11/21/19 02:30 88 19 132/94 (107) 100 11/21/19 02:00 89 21 139/73 (95) 100 11/21/19 01:30 88 20 142/70 (94) 100 11/21/19 01:06 94 21 30 11/21/19 01:00 85 17 133/73 (93) 100 11/21/19 00:30 86 19 140/78 (98) 100 11/21/19 00:00 Mechanical Ventilator 11/21/19 00:00 30 11/21/19 00:00 93 11/21/19 00:00 91 21 146/69 (94) 100 11/21/19 00:00 98.6 91 21 146/69 (94) 100 11/20/19 23:30 90 23 142/65 (90) 100 11/20/19 23:00 89 26 146/70 (95) 99 11/20/19 22:55 85 18 30 11/20/19 22:30 86 18 141/66 (91) 100 11/20/19 22:00 86 18 136/64 (88) 100 11/20/19 21:30 87 21 142/68 (92) 100 11/20/19 21:12 86 17 30 11/20/19 21:00 85 20 140/66 (90) 100 11/20/19 20:30 86 19 133/67 (89) 100 11/20/19 20:00 89 11/20/19 20:00 98.0 92 22 152/69 (96) 100 11/20/19 20:00 30 11/20/19 20:00 Mechanical Ventilator 11/20/19 19:40 84 18 30 30 11/20/19 19:30 87 19 140/63 (88) 100 11/20/19 19:00 140/63 11/20/19 19:00 91 23 139/64 (89) 100 11/20/19 18:30 86 18 131/63 (85) 100 11/20/19 18:17 131/63 11/20/19 18:00 86 20 136/62 (86) 100 11/20/19 17:30 86 17 131/62 (85) 100 11/20/19 17:00 87 17 133/58 (83) 100 11/20/19 17:00 131/62 11/20/19 17:00 86 17 30 11/20/19 16:30 86 17 126/67 (86) 100 11/20/19 16:04 126/67 11/20/19 16:00 89 11/20/19 16:00 30 11/20/19 16:00 Mechanical Ventilator 11/20/19 16:00 97.4 86 23 134/61 (85) 100 11/20/19 15:30 86 18 116/59 (78) 100 11/20/19 15:29 83 17 30 11/20/19 15:04 116/59 11/20/19 15:00 87 17 124/60 (81) 100 11/20/19 14:30 83 16 118/65 (82) 100 11/20/19 14:00 118/65 11/20/19 14:00 86 18 130/58 (82) 100 11/20/19 13:30 89 18 129/57 (81) 100 11/20/19 13:29 87 17 30 30 11/20/19 13:00 129/57 11/20/19 13:00 87 23 137/62 (87) 100 11/20/19 12:30 89 24 126/61 (82) 100 11/20/19 12:00 Mechanical Ventilator 11/20/19 12:00 89 11/20/19 12:00 97.7 88 25 119/58 (78) 100 11/20/19 12:00 131/71 11/20/19 12:00 30 Height (Feet): 5 Height (Inches): 3.00 Weight (Pounds): 170 HEENT: other - intubated Respiratory/Chest: lungs clear Cardiovascular: normal rate, regular rhythm, no gallop/murmur Abdomen: soft, non tender, other - Gt Extremities: other - + edema, left arm PICC Laboratory Tests Test 11/21/19 08:30 White Blood Count 11.4 K/UL (4.8-10.8) H Red Blood Count 3.38 M/UL (4.20-5.40) L Hemoglobin 9.6 G/DL (12.0-16.0) L Hematocrit 28.6 % (37.0-47.0) L Mean Corpuscular Volume 84 FL (80-99) Mean Corpuscular Hemoglobin 28.3 PG (27.0-31.0) Mean Corpuscular Hemoglobin Concent 33.5 G/DL (32.0-36.0) Red Cell Distribution Width 13.8 % (11.6-14.8) Platelet Count 201 K/UL (150-450) Mean Platelet Volume 4.7 FL (6.5-10.1) L Neutrophils (%) (Auto) 75.5 % (45.0-75.0) H Lymphocytes (%) (Auto) 10.7 % (20.0-45.0) L Monocytes (%) (Auto) 9.7 % (1.0-10.0) Eosinophils (%) (Auto) 3.7 % (0.0-3.0) H Basophils (%) (Auto) 0.4 % (0.0-2.0) Sodium Level 140 MMOL/L (136-145) Potassium Level 2.5 MMOL/L (3.5-5.1) *L Chloride Level 101 MMOL/L (98-107) Carbon Dioxide Level 18 MMOL/L (21-32) L Anion Gap 21 mmol/L (5-15) H Blood Urea Nitrogen 59 mg/dL (7-18) H Creatinine 4.4 MG/DL (0.55-1.30) H Estimat Glomerular Filtration Rate 11.6 mL/min (>60) Glucose Level 219 MG/DL (74-106) H Calcium Level 6.7 MG/DL (8.5-10.1) L Total Bilirubin 0.3 MG/DL (0.2-1.0) Aspartate Amino Transf (AST/SGOT) 17 U/L (15-37) Alanine Aminotransferase (ALT/SGPT) 11 U/L (12-78) L Alkaline Phosphatase 94 U/L (46-116) Total Protein 6.1 G/DL (6.4-8.2) L Albumin 1.6 G/DL (3.4-5.0) L Globulin 4.5 g/dL Albumin/Globulin Ratio 0.4 (1.0-2.7) L Current Medications Medications (Trade) Dose Ordered Sig/Aaron Route PRN Reason Start Time Stop Time Status Last Admin Dose Admin Acetaminophen (Tylenol) 650 mg Q4H PRN GT Mild Pain/Temp > 100.5 11/17/19 07:30 12/17/19 07:29 11/18/19 20:33 Ceftriaxone Sodium 1 gm/ Dextrose 55 ml @ 110 mls/hr Q24H IVPB 11/18/19 17:00 11/25/19 16:59 11/20/19 17:47 Chlorhexidine Gluconate (Arabella-Hex 2%) 1 applic DAILY@2000 TOPIC 11/15/19 20:00 12/15/19 19:59 11/20/19 20:36 Dextrose (Dextrose 50%) 25 ml Q30M PRN IV Hypoglycemia 11/14/19 19:00 12/14/19 18:59 Dextrose (Dextrose 50%) 50 ml Q30M PRN IV Hypoglycemia 11/14/19 19:00 12/14/19 18:59 Dopamine HCl/ Dextrose 250 ml @ 6.124 mls/ hr Q24H IV 11/21/19 01:15 12/15/19 01:14 11/21/19 02:42 Insulin Aspart (NovoLOG) Q6HR SUBQ 11/15/19 00:00 12/14/19 20:59 11/21/19 06:33 Levetiracetam 100 ml @ 400 mls/hr Q12HR IVPB 11/14/19 15:00 12/14/19 14:59 11/21/19 09:08 Linezolid 300 ml @ 300 mls/hr Q12H IVPB 11/15/19 15:00 11/22/19 14:59 11/21/19 02:49 Lorazepam (Ativan 2mg/ml 1ml) 1 mg Q4H PRN IV For Anxiety 11/17/19 18:45 11/24/19 18:44 11/19/19 19:57 Lorazepam (Ativan 2mg/ml 1ml) 2 mg Q1H PRN IV For Seizures 11/20/19 14:00 11/27/19 13:59 Pantoprazole (Protonix) 40 mg DAILY IVP 11/14/19 14:15 12/14/19 14:14 11/21/19 09:08 Sodium Chloride 1,000 ml @ 75 mls/hr [id number] IV 11/18/19 17:15 12/18/19 17:14 11/20/19 22:35 Tyrel Prieto MD Nov 21, 2019 11:44"
--- NOTE | 2019-11-21 12:00 | NUR ---
NURSE NOTES: Patient mentation remains the same. Patient showing sinus rhythm on the manager monitoring. Patient remains orally intubated with ET tube 7.5 and 24cm at the lip line. Ventilator setting AC 12, tidal volume 350, FiO2 30%, and PEEP 5. Patient tolerating with no distress. Patient remains NPO. Barron patent, asymptomatic, and draining cloudy yellow urine. All wound dressings dry and intact. Patient will continue to be turned every 2 hours. Left upper arm PICC noted dressing remains dry and intact. Dopamine running at 2mcg/kg/min and normal saline running at 75mL/hr. Patient bed in low position with bed alarm on and call light in reach at this time. Will continue to monitor. Patient repositioned and oral care performed at this time.
--- NOTE | 2019-11-21 14:09 | NUR ---
*-* INSURANCE *-* ALL CLINICALS AND REVIEWS HAVE BEEN FAXED TO: [employer] #[phone] fax# [phone]
--- NOTE | 2019-11-21 15:11 | NUR ---
PHARMACEUTICAL SPECIALTY REPRESENTATIVECHILD ADOLESCENT PSYCHIATRIST SI: RESP FAILURE ETT/VENT SUPPORT T. 97.5 HR 92 RR 20 B/P 154/70 AC 12 TV 350 FIO2 30% PEEP 5 WBC 11.4 K 2.5 AGAP 21 IS: IVF NS @ 75ML/HR CETRIAXONE IV ZYVOX IV KEPPRA ICU STATUS
--- NOTE | 2019-11-21 15:51 | Surgery Progress Note ---
Surgery Progress Note Subjective Symptoms: tolerating diet, voiding well, other Objective Last 24 Hour Vital Signs Date Time Temp Pulse Resp B/P (MAP) Pulse Ox O2 Delivery O2 Flow Rate FiO2 11/21/19 15:20 94 22 30 11/21/19 11:57 88 11/21/19 11:30 89 20 150/68 (95) 100 11/21/19 11:00 89 20 149/71 (97) 100 11/21/19 10:55 89 20 30 11/21/19 10:30 89 19 149/67 (94) 100 11/21/19 10:00 89 20 149/67 (94) 100 11/21/19 09:30 90 19 152/72 (98) 100 11/21/19 09:20 90 16 30 11/21/19 09:00 89 18 140/72 (94) 100 11/21/19 08:30 90 19 154/67 (96) 100 11/21/19 08:00 99 11/21/19 08:00 97.5 92 20 156/72 (100) 100 11/21/19 08:00 Mechanical Ventilator 11/21/19 08:00 30 11/21/19 07:30 93 23 155/68 (97) 100 11/21/19 07:28 88 19 30 11/21/19 07:00 89 19 151/68 (95) 100 11/21/19 06:30 89 21 153/70 (97) 100 11/21/19 06:30 89 17 11/21/19 06:00 91 22 154/64 (94) 100 11/21/19 05:30 92 23 133/79 (97) 100 11/21/19 05:00 99 24 164/75 (104) 86 11/21/19 04:53 98 27 30 11/21/19 04:30 95 24 150/80 (103) 86 11/21/19 04:00 91 18 152/72 (98) 90 11/21/19 04:00 Mechanical Ventilator 11/21/19 04:00 30 11/21/19 04:00 91 11/21/19 03:30 95 152/63 (92) 86 11/21/19 03:07 93 28 30 11/21/19 03:00 88 22 145/70 (95) 100 11/21/19 02:42 130/94 11/21/19 02:30 88 19 132/94 (107) 100 11/21/19 02:00 89 21 139/73 (95) 100 11/21/19 01:30 88 20 142/70 (94) 100 11/21/19 01:06 94 21 30 11/21/19 01:00 85 17 133/73 (93) 100 11/21/19 00:30 86 19 140/78 (98) 100 11/21/19 00:00 Mechanical Ventilator 11/21/19 00:00 30 11/21/19 00:00 93 11/21/19 00:00 91 21 146/69 (94) 100 11/21/19 00:00 98.6 91 21 146/69 (94) 100 11/20/19 23:30 90 23 142/65 (90) 100 11/20/19 23:00 89 26 146/70 (95) 99 11/20/19 22:55 85 18 30 11/20/19 22:30 86 18 141/66 (91) 100 11/20/19 22:00 86 18 136/64 (88) 100 11/20/19 21:30 87 21 142/68 (92) 100 11/20/19 21:12 86 17 30 11/20/19 21:00 85 20 140/66 (90) 100 11/20/19 20:30 86 19 133/67 (89) 100 11/20/19 20:00 89 11/20/19 20:00 98.0 92 22 152/69 (96) 100 11/20/19 20:00 30 11/20/19 20:00 Mechanical Ventilator 11/20/19 19:40 84 18 30 30 11/20/19 19:30 87 19 140/63 (88) 100 11/20/19 19:00 140/63 11/20/19 19:00 91 23 139/64 (89) 100 11/20/19 18:30 86 18 131/63 (85) 100 11/20/19 18:17 131/63 11/20/19 18:00 86 20 136/62 (86) 100 11/20/19 17:30 86 17 131/62 (85) 100 11/20/19 17:00 87 17 133/58 (83) 100 11/20/19 17:00 131/62 11/20/19 17:00 86 17 30 11/20/19 16:30 86 17 126/67 (86) 100 11/20/19 16:04 126/67 11/20/19 16:00 89 11/20/19 16:00 30 11/20/19 16:00 Mechanical Ventilator 11/20/19 16:00 97.4 86 23 134/61 (85) 100 I&O Intake and Output 11/20/19 11/21/19 19:00 07:00 Intake Total 1428.488 ml 450 ml Output Total 825 ml 890 ml Balance 603.488 ml -440 ml IV Total 1428.488 ml 450 ml Output Urine Total 825 ml 890 ml # Bowel Movements 1 3 Dressing: saturated Wound: other Cardiovascular: RSR Respiratory: decreased breath sounds Abdomen: non-tender, present bowel sounds, non-distended Extremities: no tenderness, no cyanosis Laboratory Tests Test 11/21/19 08:30 White Blood Count 11.4 K/UL (4.8-10.8) H Red Blood Count 3.38 M/UL (4.20-5.40) L Hemoglobin 9.6 G/DL (12.0-16.0) L Hematocrit 28.6 % (37.0-47.0) L Mean Corpuscular Volume 84 FL (80-99) Mean Corpuscular Hemoglobin 28.3 PG (27.0-31.0) Mean Corpuscular Hemoglobin Concent 33.5 G/DL (32.0-36.0) Red Cell Distribution Width 13.8 % (11.6-14.8) Platelet Count 201 K/UL (150-450) Mean Platelet Volume 4.7 FL (6.5-10.1) L Neutrophils (%) (Auto) 75.5 % (45.0-75.0) H Lymphocytes (%) (Auto) 10.7 % (20.0-45.0) L Monocytes (%) (Auto) 9.7 % (1.0-10.0) Eosinophils (%) (Auto) 3.7 % (0.0-3.0) H Basophils (%) (Auto) 0.4 % (0.0-2.0) Sodium Level 140 MMOL/L (136-145) Potassium Level 2.5 MMOL/L (3.5-5.1) *L Chloride Level 101 MMOL/L (98-107) Carbon Dioxide Level 18 MMOL/L (21-32) L Anion Gap 21 mmol/L (5-15) H Blood Urea Nitrogen 59 mg/dL (7-18) H Creatinine 4.4 MG/DL (0.55-1.30) H Estimat Glomerular Filtration Rate 11.6 mL/min (>60) Glucose Level 219 MG/DL (74-106) H Calcium Level 6.7 MG/DL (8.5-10.1) L Total Bilirubin 0.3 MG/DL (0.2-1.0) Aspartate Amino Transf (AST/SGOT) 17 U/L (15-37) Alanine Aminotransferase (ALT/SGPT) 11 U/L (12-78) L Alkaline Phosphatase 94 U/L (46-116) Total Protein 6.1 G/DL (6.4-8.2) L Albumin 1.6 G/DL (3.4-5.0) L Globulin 4.5 g/dL Albumin/Globulin Ratio 0.4 (1.0-2.7) L Plan Problems: (1) Decubitus skin ulcer Assessment & Plan: Pt presented on admission with multiple pressure injuries. DTPI sacrum . Base of injury is indurated,purple with areas that are maroon in colour. An area of fluctuance noted at sacrococcygeal area. Borders are irregular (L)8.5cm x (W)9.3cm.Historical scar also noted within base of Sacral pressure injury. DTPI medial L heel. Base of injury fluctuant,maroon with surrounding non- blanching erythema. (L)1.7cm x (W)1.6cm. DTPI medial R heel. Base of injury is maroon and fluctuant(L)3.1cm x (W)2.5cm. Tx.Plan: Apply Moisture Barrier Paste to Sacrum. Cover with Optifoam drsg. Change every 3 days and prn. Apply Cavilon Skin Barrier to both heels. Cover each heel with Optifoam drsg. Change every 7 days and prn. APM/VALERIE Mattress. Reposition at least every 2 hours or as tolerated. Off-load heels with pillow. Patient is at high risk for deterioration of wounds opening of DTI and formation of worsening decubitus will need close monitoring and significant amount of care to ensure improvement. Nutritional optimization. Will follow with recommendations thank you (2) Failure to thrive in adult Assessment & Plan: Not tolerating tube feeds regurgitation high residuals DAILY ESTIMATED NEEDS: Needs based on Critical care, sepsis, wound, ARF/ 57.7kg abw 22-30 kcals/kg 0829-6215 total kcals 0.8-1.3 (increase w/ renal fxn improvement) g protein/kg 46-75 g total protein 25-30 mL/kg 9265-8642 total fluid mLs NUTRITION DIAGNOSIS: 1) Swallowing difficulty r/t dysphagia as evidenced by pt is Jtube dep, currently orally intubated, NPO. 2) Altered nutrition related lab values r/t respiratory failure, DM, ARF, sepsis as evidenced by COW >45*, elev pH 7.616*, elev K (7.2*), elev creat (8.8), elev BUN (178), elev BG (228), elev LA, elev wbc (22.2*) CURRENT TF:NPO ENTERAL NUTRITION RECOMMENDATIONS: Nepro @ 40ml/hr x 22 hrs to provide 880ml, 1584kcal, 71g prot, 640ml free water * Rec Nepro at this time given ARF, +hyperkalemia w/ creat 8.8. * When medically appropriate, initiate Nepro @ 20ml/hr x 6 hrs, advance 10ml q 4 -6 hrs as tolerated to goal rate * Hold 1 hr before and after Synthroid med * HOB over 30 degrees/ water flush per MD ---- W/ improved renal fxn and normalized lytes, rec Glucerna 1.2 @ 60ml/hr x 22 hrs to provide 1320ml, 1584 kcal, 79g pro, 1063ml free H2O ADDITIONAL RECOMMENDATIONS: 1) Monitor lytes and renal fxn closely -> admitted w/ creat > 8.0, creat previous adm < 2.0 -> K critically elev, s/p kayexalate. -> Rec Nepro at this time 2) Wound care: add Maik BID as tolerated/ f/up w/ WC eval 3) Calibrated bedscale wt- w/ added p200 mattress + pump 4) Pt on Synthroid GLOVE SEWER:currently not on the med list. (3) Acute respiratory failure Assessment & Plan: As per pulmonology available if trach needs Jared Mcarthur Nov 21, 2019 15:51
--- NOTE | 2019-11-21 15:58 | NUR ---
NURSE NOTES: Called Dr Crowder's office. Dr Peña answered the phone. Notified him that patient K is 2.5 today. Received order for 40mEq K-Dur once. Order read back, verified, and placed.
--- NOTE | 2019-11-21 16:00 | NUR ---
NURSE NOTES: Patient mentation remains the same. Patient showing sinus rhythm on the cytopathologist. Patient remains orally intubated with ET tube 7.5 and 24cm at the lip line. Ventilator setting AC 12, tidal volume 350, FiO2 30%, and PEEP 5. Patient tolerating with no distress. Patient remains NPO. Barron patent, asymptomatic, and draining cloudy yellow urine. All wound dressings dry and intact. Patient will continue to be turned every 2 hours. Left upper arm PICC noted dressing remains dry and intact. Dopamine running at 2mcg/kg/min and normal saline running at 75mL/hr. Patient bed in low position with bed alarm on and call light in reach at this time. Will continue to monitor. Patient repositioned and oral care performed at this time.
[2019-11-21] MEDS: cefTRIAXone 1 GM in D5W 55 ML IVPB SCH (17:49)
--- NOTE | 2019-11-21 17:57 | Critical Care Progress Note ---
Assessment/Plan Assessment/Plan Respiratory failure, acute on chronic. Alkalemia due to hyperventilation, chronic metabolic alkalosis, chronic respiratory acidosis, leukocytosis, sepsis, anemia, hyponatremia, hyperkalemia, chronic renal failure, severe protein-calorie malnutrition. hyponatremia PLAN ins and outs noted care noted and reviewed IV antibiotics- ID noted and recommendations reviewed respiratory care reviewed and weaning parameters Ventilatory support - AC and taper rate discuss wean with nursing and physicians meds noted SNF meds supportive care suction and monitor imaging off load oxygen therapy and titrate prognosis guarded monitor skin exam monitor lytes; renal noted and reviewed normal wbc medications/laboratory data/nursing notes/ICU care reviewed in detail note reviewed and edited care discussed with RN and RT ICU time spent >40 minutes Critical Care - Subjective Interval Events: on vent RT noted difficulty with wean ICU care reviewed and discussed ROS Limited/Unobtainable: Yes Condition: critical EKG Rhythm: Sinus Rhythm Residuals: minimal Tube Feeding Tolerated: yes I&O: Intake and Output 11/20/19 11/21/19 19:00 07:00 Intake Total 1428.488 ml 450 ml Output Total 825 ml 890 ml Balance 603.488 ml -440 ml IV Total 1428.488 ml 450 ml Output Urine Total 825 ml 890 ml # Bowel Movements 1 3 Critical Care - Objective ET-Tube: 7.5 ET Position: 24 Last 24 Hour Vital Signs Date Time Temp Pulse Resp B/P (MAP) Pulse Ox O2 Delivery O2 Flow Rate FiO2 11/21/19 17:15 87 16 30 11/21/19 16:00 88 11/21/19 15:20 94 22 30 11/21/19 11:57 88 11/21/19 11:30 89 20 150/68 (95) 100 11/21/19 11:00 89 20 149/71 (97) 100 11/21/19 10:55 89 20 30 11/21/19 10:30 89 19 149/67 (94) 100 11/21/19 10:00 89 20 149/67 (94) 100 11/21/19 09:30 90 19 152/72 (98) 100 11/21/19 09:20 90 16 30 11/21/19 09:00 89 18 140/72 (94) 100 11/21/19 08:30 90 19 154/67 (96) 100 11/21/19 08:00 99 11/21/19 08:00 97.5 92 20 156/72 (100) 100 11/21/19 08:00 Mechanical Ventilator 11/21/19 08:00 30 11/21/19 07:30 93 23 155/68 (97) 100 11/21/19 07:28 88 19 30 11/21/19 07:00 89 19 151/68 (95) 100 11/21/19 06:30 89 21 153/70 (97) 100 11/21/19 06:30 89 17 11/21/19 06:00 91 22 154/64 (94) 100 11/21/19 05:30 92 23 133/79 (97) 100 11/21/19 05:00 99 24 164/75 (104) 86 11/21/19 04:53 98 27 30 11/21/19 04:30 95 24 150/80 (103) 86 11/21/19 04:00 91 18 152/72 (98) 90 11/21/19 04:00 Mechanical Ventilator 11/21/19 04:00 30 11/21/19 04:00 91 11/21/19 03:30 95 152/63 (92) 86 11/21/19 03:07 93 28 30 11/21/19 03:00 88 22 145/70 (95) 100 11/21/19 02:42 130/94 11/21/19 02:30 88 19 132/94 (107) 100 11/21/19 02:00 89 21 139/73 (95) 100 11/21/19 01:30 88 20 142/70 (94) 100 11/21/19 01:06 94 21 30 11/21/19 01:00 85 17 133/73 (93) 100 11/21/19 00:30 86 19 140/78 (98) 100 11/21/19 00:00 Mechanical Ventilator 11/21/19 00:00 30 11/21/19 00:00 93 11/21/19 00:00 91 21 146/69 (94) 100 11/21/19 00:00 98.6 91 21 146/69 (94) 100 11/20/19 23:30 90 23 142/65 (90) 100 11/20/19 23:00 89 26 146/70 (95) 99 11/20/19 22:55 85 18 30 11/20/19 22:30 86 18 141/66 (91) 100 11/20/19 22:00 86 18 136/64 (88) 100 11/20/19 21:30 87 21 142/68 (92) 100 11/20/19 21:12 86 17 30 11/20/19 21:00 85 20 140/66 (90) 100 11/20/19 20:30 86 19 133/67 (89) 100 11/20/19 20:00 89 11/20/19 20:00 98.0 92 22 152/69 (96) 100 11/20/19 20:00 30 11/20/19 20:00 Mechanical Ventilator 11/20/19 19:40 84 18 30 30 11/20/19 19:30 87 19 140/63 (88) 100 11/20/19 19:00 140/63 11/20/19 19:00 91 23 139/64 (89) 100 11/20/19 18:30 86 18 131/63 (85) 100 11/20/19 18:17 131/63 11/20/19 18:00 86 20 136/62 (86) 100 Labs: Labs Test 11/19/19 10:55 11/20/19 05:56 11/20/19 11:39 11/21/19 08:30 Arterial Blood pH 7.438 (7.350-7.450) 7.443 (7.350-7.450) Arterial Blood Partial Pressure CO2 34.6 mmHg (35.0-45.0) 31.8 mmHg (35.0-45.0) Arterial Blood Partial Pressure O2 111.3 mmHg (75.0-100.0) 113.2 mmHg (75.0-100.0) Arterial Blood HCO3 22.9 mmol/L (22.0-26.0) 21.3 mmol/L (22.0-26.0) Arterial Blood Oxygen Saturation 97.7 % (95-100) 97.8 % (95-100) Arterial Blood Base Excess -1.0 (-2-2) -2.3 (-2-2) Danilo Test Positive Positive White Blood Count 9.5 K/UL (4.8-10.8) 11.4 K/UL (4.8-10.8) Red Blood Count 3.10 M/UL (4.20-5.40) 3.38 M/UL (4.20-5.40) Hemoglobin 8.8 G/DL (12.0-16.0) 9.6 G/DL (12.0-16.0) Hematocrit 26.0 % (37.0-47.0) 28.6 % (37.0-47.0) Mean Corpuscular Volume 84 FL (80-99) 84 FL (80-99) Mean Corpuscular Hemoglobin 28.3 PG (27.0-31.0) 28.3 PG (27.0-31.0) Mean Corpuscular Hemoglobin Concent 33.7 G/DL (32.0-36.0) 33.5 G/DL (32.0-36.0) Red Cell Distribution Width 13.5 % (11.6-14.8) 13.8 % (11.6-14.8) Platelet Count 180 K/UL (150-450) 201 K/UL (150-450) Mean Platelet Volume 5.6 FL (6.5-10.1) 4.7 FL (6.5-10.1) Neutrophils (%) (Auto) 76.1 % (45.0-75.0) 75.5 % (45.0-75.0) Lymphocytes (%) (Auto) 11.3 % (20.0-45.0) 10.7 % (20.0-45.0) Monocytes (%) (Auto) 8.1 % (1.0-10.0) 9.7 % (1.0-10.0) Eosinophils (%) (Auto) 4.1 % (0.0-3.0) 3.7 % (0.0-3.0) Basophils (%) (Auto) 0.4 % (0.0-2.0) 0.4 % (0.0-2.0) Sodium Level 137 MMOL/L (136-145) 140 MMOL/L (136-145) Potassium Level 2.5 MMOL/L (3.5-5.1) 2.5 MMOL/L (3.5-5.1) Chloride Level 98 MMOL/L (98-107) 101 MMOL/L (98-107) Carbon Dioxide Level 23 MMOL/L (21-32) 18 MMOL/L (21-32) Anion Gap 17 mmol/L (5-15) 21 mmol/L (5-15) Blood Urea Nitrogen 78 mg/dL (7-18) 59 mg/dL (7-18) Creatinine 5.0 MG/DL (0.55-1.30) 4.4 MG/DL (0.55-1.30) Estimat Glomerular Filtration Rate 10.1 mL/min (>60) 11.6 mL/min (>60) Glucose Level 267 MG/DL (74-106) 219 MG/DL (74-106) Calcium Level 7.0 MG/DL (8.5-10.1) 6.7 MG/DL (8.5-10.1) Magnesium Level 2.0 MG/DL (1.8-2.4) Total Bilirubin 0.3 MG/DL (0.2-1.0) 0.3 MG/DL (0.2-1.0) Aspartate Amino Transf (AST/SGOT) 14 U/L (15-37) 17 U/L (15-37) Alanine Aminotransferase (ALT/SGPT) 8 U/L (12-78) 11 U/L (12-78) Alkaline Phosphatase 83 U/L (46-116) 94 U/L (46-116) Pro-B-Type Natriuretic Peptide 3463 pg/mL (0-125) Total Protein 5.8 G/DL (6.4-8.2) 6.1 G/DL (6.4-8.2) Albumin 1.5 G/DL (3.4-5.0) 1.6 G/DL (3.4-5.0) Globulin 4.3 g/dL 4.5 g/dL Albumin/Globulin Ratio 0.3 (1.0-2.7) 0.4 (1.0-2.7) Objective: WDWN ETT in place reduced LOC reduced breath sounds bilaterally without rhonchi or wheeze [id number] without MRG NABS nontender no HSM; no distention feeding tube in place no CC some edema nonfocal with reduced ROM reviewed and edited Accucheck: [id number] Torey Douglass MD Nov 21, 2019 17:57
--- NOTE | 2019-11-21 18:00 | NUR ---
NURSE NOTES: Vital signs stable. patient had small, green bowel movement. Patient repositioned. Bed bath performed.
--- NOTE | 2019-11-21 19:05 | NUR ---
HAND-OFF: Report given to FELY Caceres. patient vital signs stable. Endorsed to follow up.
--- NOTE | 2019-11-21 20:00 | NUR ---
NURSE NOTES: received from brionna winston pt obtunded orally intubated -vent o2 sat 100 % no acute resp distress note no dopomine drip at 2mcg/min for renal perfusion reposition and suction
[2019-11-21] MEDS: Dyna-Hex 2% Top Sol 2oz TOPIC SCH (20:07)
--- NOTE | 2019-11-21 22:00 | NUR ---
NURSE NOTES: reposition and suction condition un change
--- NOTE | 2019-11-21 22:29 | General Progress Note ---
Assessment/Plan Status: stable Assessment/Plan: Assessment - h/o gastroparesis and GT feed intolerance - GJ tube dislodged and replaced with G tube - Resp failure, intubated - OBS - Sepeis, shock - CRF - Poor Px Recommendations - OK to use GT for meds. Hold feeds - abx / supportive care - elevate HOB - can re-address G to J conversion once stabilized Subjective Allergies: Coded Allergies: No Known Allergies (Verified , 12/31/09) Subjective Above noted d/w RN undergoing weaning attempts Objective Last 24 Hour Vital Signs Date Time Temp Pulse Resp B/P (MAP) Pulse Ox O2 Delivery O2 Flow Rate FiO2 11/21/19 21:00 91 21 148/70 (96) 100 11/21/19 21:00 148/70 11/21/19 20:00 91 11/21/19 20:00 Mechanical Ventilator 11/21/19 20:00 30 11/21/19 20:00 145/70 11/21/19 20:00 98.0 93 26 153/75 (101) 100 11/21/19 19:43 89 20 30 11/21/19 19:30 88 19 150/75 (100) 100 11/21/19 19:00 150/75 11/21/19 19:00 91 22 138/73 (94) 100 11/21/19 18:30 89 21 149/67 (94) 100 11/21/19 18:00 92 23 149/67 (94) 100 11/21/19 18:00 154/71 11/21/19 17:30 88 18 156/68 (97) 100 11/21/19 17:30 87 19 149/74 (99) 100 11/21/19 17:15 87 16 30 11/21/19 17:00 90 21 158/67 (97) 100 11/21/19 17:00 89 18 156/68 (97) 100 11/21/19 17:00 156/68 11/21/19 16:30 88 19 153/68 (96) 100 11/21/19 16:30 98.5 87 18 158/68 (98) 100 11/21/19 16:00 88 11/21/19 16:00 97.5 86 20 150/68 (95) 100 11/21/19 16:00 Mechanical Ventilator 11/21/19 16:00 30 11/21/19 16:00 153/68 11/21/19 16:00 86 18 153/68 (96) 100 11/21/19 15:30 99 32 164/74 (104) 100 11/21/19 15:30 94 22 150/68 (95) 100 11/21/19 15:20 94 22 30 11/21/19 15:00 90 24 144/70 (94) 100 11/21/19 15:00 164/74 11/21/19 15:00 87 16 164/74 (104) 100 11/21/19 14:30 86 22 152/68 (96) 100 11/21/19 14:30 85 17 143/69 (93) 100 11/21/19 14:00 105/82 11/21/19 14:00 86 17 105/82 (90) 100 11/21/19 14:00 86 18 164/72 (102) 100 11/21/19 13:30 88 20 151/69 (96) 100 11/21/19 13:30 94 22 150/68 (95) 100 11/21/19 13:00 151/69 11/21/19 13:00 87 16 164/74 (104) 100 11/21/19 13:00 88 19 148/67 (94) 100 11/21/19 12:30 98.9 88 18 151/67 (95) 100 11/21/19 12:30 90 21 151/67 (95) 100 11/21/19 12:00 Mechanical Ventilator 11/21/19 12:00 97.5 88 18 119/73 (88) 100 11/21/19 12:00 119/73 11/21/19 12:00 90 20 119/73 (88) 100 11/21/19 12:00 30 11/21/19 11:57 88 11/21/19 11:30 89 20 150/68 (95) 100 11/21/19 11:00 150/68 11/21/19 11:00 89 20 149/71 (97) 100 11/21/19 10:55 89 20 30 11/21/19 10:30 89 19 149/67 (94) 100 11/21/19 10:00 89 20 149/67 (94) 100 11/21/19 10:00 149/67 11/21/19 09:30 90 19 152/72 (98) 100 11/21/19 09:20 90 16 30 11/21/19 09:00 89 18 140/72 (94) 100 11/21/19 09:00 140/72 11/21/19 08:30 90 19 154/67 (96) 100 11/21/19 08:00 99 11/21/19 08:00 156/72 11/21/19 08:00 97.5 92 20 156/72 (100) 100 11/21/19 08:00 Mechanical Ventilator 11/21/19 08:00 30 11/21/19 07:30 93 23 155/68 (97) 100 11/21/19 07:28 88 19 30 11/21/19 07:00 155/68 11/21/19 07:00 89 19 151/68 (95) 100 11/21/19 06:30 89 21 153/70 (97) 100 11/21/19 06:30 89 17 11/21/19 06:00 91 22 154/64 (94) 100 11/21/19 05:30 92 23 133/79 (97) 100 11/21/19 05:00 99 24 164/75 (104) 86 11/21/19 04:53 98 27 30 11/21/19 04:30 95 24 150/80 (103) 86 11/21/19 04:00 91 18 152/72 (98) 90 11/21/19 04:00 Mechanical Ventilator 11/21/19 04:00 30 11/21/19 04:00 91 11/21/19 03:30 95 152/63 (92) 86 11/21/19 03:07 93 28 30 11/21/19 03:00 88 22 145/70 (95) 100 11/21/19 02:42 130/94 11/21/19 02:30 88 19 132/94 (107) 100 11/21/19 02:00 89 21 139/73 (95) 100 11/21/19 01:30 88 20 142/70 (94) 100 11/21/19 01:06 94 21 30 11/21/19 01:00 85 17 133/73 (93) 100 11/21/19 00:30 86 19 140/78 (98) 100 11/21/19 00:00 Mechanical Ventilator 11/21/19 00:00 30 11/21/19 00:00 93 11/21/19 00:00 91 21 146/69 (94) 100 11/21/19 00:00 98.6 91 21 146/69 (94) 100 11/20/19 23:30 90 23 142/65 (90) 100 11/20/19 23:00 89 26 146/70 (95) 99 11/20/19 22:55 85 18 30 11/20/19 22:30 86 18 141/66 (91) 100 Intake and Output 11/20/19 11/21/19 19:00 07:00 Intake Total 1428.488 ml 531.124 ml Output Total 825 ml 890 ml Balance 603.488 ml -358.876 ml IV Total 1428.488 ml 531.124 ml Output Urine Total 825 ml 890 ml # Bowel Movements 1 3 Laboratory Tests 11/21/19 08:30: White Blood Count 11.4H, Red Blood Count 3.38L, Hemoglobin 9.6L, Hematocrit 28.6L, Mean Corpuscular Volume 84, Mean Corpuscular Hemoglobin 28.3, Mean Corpuscular Hemoglobin Concent 33.5, Red Cell Distribution Width 13.8, Platelet Count 201, Mean Platelet Volume 4.7L, Neutrophils (%) (Auto) 75.5H, Lymphocytes (%) (Auto) 10.7L, Monocytes (%) (Auto) 9.7, Eosinophils (%) (Auto) 3.7H, Basophils (%) (Auto) 0.4, Sodium Level 140, Potassium Level 2.5*L, Chloride Level 101, Carbon Dioxide Level 18L, Anion Gap 21H, Blood Urea Nitrogen 59H, Creatinine 4.4H, Estimat Glomerular Filtration Rate 11.6, Glucose Level 219H, Calcium Level 6.7L, Total Bilirubin 0.3, Aspartate Amino Transf (AST/SGOT) 17, Alanine Aminotransferase (ALT/SGPT) 11L, Alkaline Phosphatase 94, Total Protein 6.1L, Albumin 1.6L, Globulin 4.5, Albumin/Globulin Ratio 0.4L Height (Feet): 5 Height (Inches): 3.00 Weight (Pounds): 180 Objective Debilitated AA woman in ICU on vent NCAT (+) ETT coarse BS/ronchi RR abd soft, NT, GT in good position no edema Non verbal Khorrami,Payman MD Nov 21, 2019 22:29
[2019-11-22] VITALS (36 sets, daily range): BP systolic 137–166; BP diastolic 64–85
--- NOTE | 2019-11-22 | NUR ---
NURSE NOTES: reposition and suction urinary output 50-100 cc/hr
[2019-11-22] MEDS: DOPamine 400mg/250ml 250 ML IV SCH ×2 (01:53→20:22)
--- NOTE | 2019-11-22 02:00 | NUR ---
NURSE NOTES: reposition and suction
--- NOTE | 2019-11-22 03:30 | Progress Note ---
DATE: 11/21/2019 CARDIOLOGY PROGRESS NOTE SUBJECTIVE: Dopamine taper is ongoing. Blood pressure is better. Urine output improved. Potassium decreased. OBJECTIVE: VITAL SIGNS: Blood pressure 151/68, pulse 89, and respirations 19. LUNGS: Bilateral breath sounds. CARDIAC: Regular rhythm and rate. Normal S1, S2. ABDOMEN: Soft. G-tube intact. EXTREMITIES: 1+ dependent edema. LABORATORY DATA: White count 11.4 and hemoglobin 9.6. Sodium 140, potassium 3.5, bicarb 18, BUN 59, creatinine 4.4, and albumin 1.6. IMPRESSION: 1. Respiratory failure. 2. Sepsis with shock. 3. Hypokalemia. 4. Acute renal failure. 5. Severe protein-calorie malnutrition. 6. Advanced dementia. 7. Hypertensive heart disease. PLAN: 1. Ventilator support. 2. Weaning off dopamine. 3. Replace potassium. 4. No dialysis planned. 5. Protein supplement by feeding tube. 6. DVT prophylaxis. 7. cardiac medications pending, resolution of shock. Kavon Peña M.D. DR: CATY JOB#: [id number] CC:
--- NOTE | 2019-11-22 04:00 | NUR ---
NURSE NOTES: Pt diuresing well at this time with Dopamine renal dose. ST on the monitor. Bp 166/86. Will continue to monitor.
--- NOTE | 2019-11-22 04:43 | NUR ---
NURSE NOTES: Suctioned tk blood tinged secretions lg in amt. 02 sat >95%.
[2019-11-22] MEDS: NovoLOG Insulin Flexpen SUBQ SCH ×5 (05:41→20:24)
--- NOTE | 2019-11-22 06:00 | NUR ---
NURSE NOTES: dr paulino in and seen pt
--- NOTE | 2019-11-22 07:21 | NUR ---
HAND-OFF: Report given to amanda winston usingsbar.
--- NOTE | 2019-11-22 07:22 | NUR ---
NURSE NOTES: Report received from FELY Thornton. Pt is awake in bed. Opens eyes spontaneously. No eye contact. Does not follow commands. Non-verbal. Sinus rhythm to sinus tachy on measurement coordinator. ETT 7.5/24cm at lip line. Bite block noted. AC 12, TV 350, FiO2 30%, RR 30's, P 5. Small amount of thin white secretion noted from mouth. G-tube in place and kept NPO as ordered. Barron in place draining to gravity. Pitting edema +3 on bilateral upper and +2 on lower extremities. Blisters on groin area intact. TAMIKO PICC line patent and asymptomatic. Dopamine at 2 mcg/kg/min and NS at 75cc/hr running as ordered. Bed in lowest position. Side rails up x3. Continued seizure precaution. Will resume plan of care.
[2019-11-22 08:14] LABS: BASOPHILS % (AUTO) 0.3 % (0.0-2.0); EOSINOPHILS % (AUTO) 3.5 % (0.0-3.0); HEMOGLOBIN 9.3 G/DL (12.0-16.0); LYMPHOCYTES % (AUTO) 13.8 % (20.0-45.0); MEAN CORPUSCULAR VOLUME 84 FL (80-99); MONOCYTES % (AUTO) 6.8 % (1.0-10.0); NEUTROPHILS % (AUTO) 75.6 % (45.0-75.0); PLATELET COUNT 234 K/UL (150-450); RED BLOOD COUNT 3.34 M/UL (4.20-5.40); RED CELL DISTRIBUTION WIDTH 14.1 % (11.6-14.8)
[2019-11-22] MEDS: Pantoprazole Inj IVP SCH (08:28)
[2019-11-22] MEDS: levETIRAcetam 500mg/NS100ml 100 ML IVPB SCH ×2 (08:28→20:23)
[2019-11-22 08:46] LABS: ANION GAP 22 mmol/L (5-15); BLOOD UREA NITROGEN 48 mg/dL (7-18); CALCIUM 6.9 MG/DL (8.5-10.1); CARBON DIOXIDE 17 MMOL/L (21-32); CHLORIDE 102 MMOL/L (98-107); SODIUM 141 MMOL/L (136-145)
[2019-11-22 08:51] LABS: POTASSIUM 2.5 MMOL/L (3.5-5.1)
--- NOTE | 2019-11-22 08:54 | NUR ---
RD ASSESSMENT & RECOMMENDATIONS SEE CARE ACTIVITY FOR COMPLETE ASSESSMENT DAILY ESTIMATED NEEDS: Needs based on Critical care, sepsis, wound, ARF/ 57.7kg abw 22-30 kcals/kg 1308-2748 total kcals 0.8-1.3 (increase w/ renal fxn improvement) g protein/kg 46-75 g total protein 25-30 mL/kg 7801-4390 total fluid mLs NUTRITION DIAGNOSIS: 1) Swallowing difficulty r/t dysphagia as evidenced by pt is Jtube dep, currently orally intubated, NPO. 2) Altered nutrition related lab values r/t respiratory failure, DM, ARF, sepsis as evidenced by upon adm CO2 >45* and elev pH 7.616*, now improved, elev K (7.2*->2.5*), elev creat(8.8->4.4), elev BUN (178->59), elev BG (200's), elev LA, elev wbc (22.2*-> 11.4) CURRENT TF:NPO ENTERAL NUTRITION RECOMMENDATIONS: Glucerna 1.2 @ 55ml/hr x 24 hrs to provide 1320ml, 1584 kcal, 79g pro, 1063ml free H2O PT IS NPO AT THIS TIME PER FAMILY REQUEST. MONITOR POC CLOSELY, REC TO RESUME TF IS PART OF POC. NPO DAY 8 TODAY -> IF TF PART OF POC : Rec Glucerna 1.2 given improving renal fxn : Initiate Glucerna 1.2 @ 15ml/hr x 6 hrs, advance 10ml q 4-6 hrs as tolerated to goal rate : HOB Over 30 degrees/ water flush per MD : Pt at HIGH RISK for refeeding syndrome, monitor lytes daily, replete as needed. ADDITIONAL RECOMMENDATIONS: * MONITOR POC- NPO DAY 8 TODAY, PT NPO PER FAMILY REQUEST PER RN TF REC ABOVE IF PART OF POC * Monitor lytes and renal fxn closely -> admitted w/ creat >8.0-> now 4.4 improving * Wound care: add Maik BID via GT + Vit C 250 mg daily * Calibrated bedscale wt- w/ added p200 mattress + pump
--- NOTE | 2019-11-22 08:59 | NUR ---
CASE MANAGEMENT:REVIEW 11/22/19 SI: RESPIRATORY FAILURE~ INTUBATED. SEPSIS. ACUTE RENAL FAILURE 98.2 104 28 148/73 100% ON VENT SUPPORT WBC+11.0 H/H-9.3/28.0 K-2.5 BUN+48 CR+4.0 IS: DOPAMINE GTT IVF@75/HR IV ROCEPHIN Q24 IV LINEZOLID Q12 IV KEPPRA IV PROTONIX QD : ICU STATUS DCP: PATIENT IS FROM [facility]
--- NOTE | 2019-11-22 09:07 | NUR ---
NURSE NOTES: Called and left a message to Dr Crowder regarding low K 2.5. today. Awaiting call back for new orders.
--- NOTE | 2019-11-22 09:41 | NUR ---
NURSE NOTES: Order for K replacement received from Dr Crowder and noted. Will proceed his orders.
--- NOTE | 2019-11-22 10:57 | Infectious Diseases Prog Note ---
"Assessment/Plan Assessment/Plan antibiotics : linezolid, meropenem A 1. 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 renal failure improving 3. diabetes mellitus 4. CHF 5. CVA 6. respiratory failure 7. leucocytosis improving P 1. continue linezolid 1 more day 2. continue ceftriaxone 2 more days 3. will follow up cultures Subjective ROS Limited/Unobtainable: Yes Allergies: Coded Allergies: No Known Allergies (Verified , 12/31/09) Objective Vital Signs Last 24 Hour Vital Signs Date Time Temp Pulse Resp B/P (MAP) Pulse Ox O2 Delivery O2 Flow Rate FiO2 11/22/19 10:00 94 18 144/69 (94) 100 11/22/19 09:26 95 19 30 11/22/19 09:00 96 19 141/70 (93) 100 11/22/19 08:30 97 19 155/78 (103) 100 11/22/19 08:00 Mechanical Ventilator 11/22/19 08:00 30 11/22/19 08:00 98.2 96 19 145/77 (99) 100 11/22/19 07:30 104 28 148/73 (98) 100 11/22/19 07:00 100 20 30 11/22/19 07:00 97 20 149/72 (97) 100 11/22/19 06:30 89 17 11/22/19 06:30 96 23 154/72 (99) 100 11/22/19 06:00 97 21 158/72 (100) 100 11/22/19 05:30 99 20 153/81 (105) 100 11/22/19 05:00 98.0 98 24 162/81 (108) 100 11/22/19 04:35 104 28 30 11/22/19 04:00 96 11/22/19 04:00 30 11/22/19 04:00 98.0 98 24 162/81 (108) 100 11/22/19 04:00 Mechanical Ventilator 11/22/19 03:00 101 25 160/70 (100) 100 11/22/19 02:39 99 24 30 11/22/19 02:00 94 22 155/79 (104) 100 11/22/19 01:53 150/87 11/22/19 01:31 101 27 30 11/22/19 01:00 91 22 145/70 (95) 100 11/22/19 00:00 30 11/22/19 00:00 94 11/22/19 00:00 Mechanical Ventilator 11/22/19 00:00 96 23 139/64 (89) 100 11/21/19 23:52 98 23 30 11/21/19 23:00 90 19 146/67 (93) 100 11/21/19 23:00 146/67 11/21/19 22:00 91 18 139/65 (89) 100 11/21/19 22:00 155/89 11/21/19 21:14 93 25 30 11/21/19 21:00 91 21 148/70 (96) 100 11/21/19 21:00 148/70 11/21/19 20:00 91 11/21/19 20:00 Mechanical Ventilator 11/21/19 20:00 30 11/21/19 20:00 145/70 11/21/19 20:00 98.0 93 26 153/75 (101) 100 11/21/19 19:43 89 20 30 11/21/19 19:30 88 19 150/75 (100) 100 11/21/19 19:00 150/75 11/21/19 19:00 91 22 138/73 (94) 100 11/21/19 18:30 89 21 149/67 (94) 100 11/21/19 18:00 92 23 149/67 (94) 100 11/21/19 18:00 154/71 11/21/19 17:30 88 18 156/68 (97) 100 11/21/19 17:30 87 19 149/74 (99) 100 11/21/19 17:15 87 16 30 11/21/19 17:00 90 21 158/67 (97) 100 11/21/19 17:00 89 18 156/68 (97) 100 11/21/19 17:00 156/68 11/21/19 16:30 88 19 153/68 (96) 100 11/21/19 16:30 98.5 87 18 158/68 (98) 100 11/21/19 16:00 88 11/21/19 16:00 97.5 86 20 150/68 (95) 100 11/21/19 16:00 Mechanical Ventilator 11/21/19 16:00 30 11/21/19 16:00 153/68 3/16/20 16:00 86 18 153/68 (96) 100 11/21/19 15:30 99 32 164/74 (104) 100 11/21/19 15:30 94 22 150/68 (95) 100 11/21/19 15:20 94 22 30 11/21/19 15:00 90 24 144/70 (94) 100 11/21/19 15:00 164/74 11/21/19 15:00 87 16 164/74 (104) 100 11/21/19 14:30 86 22 152/68 (96) 100 11/21/19 14:30 85 17 143/69 (93) 100 11/21/19 14:00 105/82 11/21/19 14:00 86 17 105/82 (90) 100 11/21/19 14:00 86 18 164/72 (102) 100 11/21/19 13:30 88 20 151/69 (96) 100 11/21/19 13:30 94 22 150/68 (95) 100 11/21/19 13:00 151/69 11/21/19 13:00 87 16 164/74 (104) 100 11/21/19 13:00 88 19 148/67 (94) 100 11/21/19 12:30 98.9 88 18 151/67 (95) 100 11/21/19 12:30 90 21 151/67 (95) 100 11/21/19 12:00 Mechanical Ventilator 11/21/19 12:00 97.5 88 18 119/73 (88) 100 11/21/19 12:00 119/73 11/21/19 12:00 90 20 119/73 (88) 100 11/21/19 12:00 30 11/21/19 11:57 88 11/21/19 11:30 89 20 150/68 (95) 100 11/21/19 11:00 150/68 11/21/19 11:00 89 20 149/71 (97) 100 Height (Feet): 5 Height (Inches): 3.00 Weight (Pounds): 174 HEENT: other - intubated Respiratory/Chest: lungs clear Cardiovascular: normal rate, regular rhythm, no gallop/murmur Abdomen: soft, non tender Extremities: other - + edema, left arm PICC Laboratory Tests Test 11/22/19 03:00 White Blood Count 11.0 K/UL (4.8-10.8) H Red Blood Count 3.34 M/UL (4.20-5.40) L Hemoglobin 9.3 G/DL (12.0-16.0) L Hematocrit 28.0 % (37.0-47.0) L Mean Corpuscular Volume 84 FL (80-99) Mean Corpuscular Hemoglobin 28.0 PG (27.0-31.0) Mean Corpuscular Hemoglobin Concent 33.4 G/DL (32.0-36.0) Red Cell Distribution Width 14.1 % (11.6-14.8) Platelet Count 234 K/UL (150-450) Mean Platelet Volume 4.5 FL (6.5-10.1) L Neutrophils (%) (Auto) 75.6 % (45.0-75.0) H Lymphocytes (%) (Auto) 13.8 % (20.0-45.0) L Monocytes (%) (Auto) 6.8 % (1.0-10.0) Eosinophils (%) (Auto) 3.5 % (0.0-3.0) H Basophils (%) (Auto) 0.3 % (0.0-2.0) Sodium Level 141 MMOL/L (136-145) Potassium Level 2.5 MMOL/L (3.5-5.1) *L Chloride Level 102 MMOL/L (98-107) Carbon Dioxide Level 17 MMOL/L (21-32) L Anion Gap 22 mmol/L (5-15) H Blood Urea Nitrogen 48 mg/dL (7-18) H Creatinine 4.0 MG/DL (0.55-1.30) H Estimat Glomerular Filtration Rate 13.1 mL/min (>60) Glucose Level 175 MG/DL (74-106) H Calcium Level 6.9 MG/DL (8.5-10.1) L Cortisol AM Sample Pending Current Medications Medications (Trade) Dose Ordered Sig/Aaron Route PRN Reason Start Time Stop Time Status Last Admin Dose Admin Acetaminophen (Tylenol) 650 mg Q4H PRN GT Mild Pain/Temp > 100.5 11/17/19 07:30 12/17/19 07:29 11/18/19 20:33 Ceftriaxone Sodium 1 gm/ Dextrose 55 ml @ 110 mls/hr Q24H IVPB 11/18/19 17:00 11/25/19 16:59 11/21/19 17:49 Chlorhexidine Gluconate (Arabella-Hex 2%) 1 applic DAILY@2000 TOPIC 11/15/19 20:00 12/15/19 19:59 11/21/19 20:07 Dextrose (Dextrose 50%) 25 ml Q30M PRN IV Hypoglycemia 11/14/19 19:00 12/14/19 18:59 Dextrose (Dextrose 50%) 50 ml Q30M PRN IV Hypoglycemia 11/14/19 19:00 12/14/19 18:59 Dopamine HCl/ Dextrose 250 ml @ 6.124 mls/ hr Q24H IV 11/21/19 01:15 12/15/19 01:14 11/22/19 01:53 Insulin Aspart (NovoLOG) Q6HR SUBQ 11/15/19 00:00 12/14/19 20:59 11/22/19 05:41 Levetiracetam 100 ml @ 400 mls/hr Q12HR IVPB 11/14/19 15:00 12/14/19 14:59 11/22/19 08:28 Linezolid 300 ml @ 300 mls/hr Q12H IVPB 11/15/19 15:00 11/23/19 14:59 11/22/19 03:23 Lorazepam (Ativan 2mg/ml 1ml) 1 mg Q4H PRN IV For Anxiety 11/17/19 18:45 11/24/19 18:44 11/19/19 19:57 Lorazepam (Ativan 2mg/ml 1ml) 2 mg Q1H PRN IV For Seizures 11/20/19 14:00 11/27/19 13:59 Pantoprazole (Protonix) 40 mg DAILY IVP 11/14/19 14:15 12/14/19 14:14 11/22/19 08:28 Potassium Chloride 100 ml @ 50 mls/hr Q2H IVPB 11/22/19 10:00 11/22/19 13:59 11/22/19 10:10 Potassium Chloride (K-Dur) 40 meq ONCE ORAL 11/22/19 16:00 11/22/19 17:00 Sodium Chloride 1,000 ml @ 75 mls/hr [id number] IV 11/18/19 17:15 12/18/19 17:14 11/22/19 01:53 Tyrel Prieto MD Nov 22, 2019 10:57"
--- NOTE | 2019-11-22 12:41 | Surgery Progress Note ---
Surgery Progress Note Subjective Additional Comments ill appearing hypo k wbc 11k labs reviewed cxr noted Objective Last 24 Hour Vital Signs Date Time Temp Pulse Resp B/P (MAP) Pulse Ox O2 Delivery O2 Flow Rate FiO2 11/22/19 12:30 102 24 30 11/22/19 12:00 30 11/22/19 12:00 98.3 100 26 151/74 (99) 100 11/22/19 12:00 151/74 11/22/19 12:00 Mechanical Ventilator 11/22/19 11:17 65 18 30 11/22/19 11:00 94 18 144/69 (94) 100 11/22/19 11:00 96 19 142/71 (94) 100 11/22/19 11:00 142/71 11/22/19 10:00 94 18 144/69 (94) 100 11/22/19 10:00 144/69 11/22/19 09:26 95 19 30 11/22/19 09:00 96 19 141/70 (93) 100 11/22/19 09:00 141/70 11/22/19 08:30 97 19 155/78 (103) 100 11/22/19 08:09 96 11/22/19 08:00 145/77 11/22/19 08:00 Mechanical Ventilator 11/22/19 08:00 30 11/22/19 08:00 98.2 96 19 145/77 (99) 100 11/22/19 07:30 104 28 148/73 (98) 100 11/22/19 07:00 100 20 30 11/22/19 07:00 97 20 149/72 (97) 100 11/22/19 07:00 149/72 11/22/19 06:30 89 17 11/22/19 06:30 96 23 154/72 (99) 100 11/22/19 06:00 97 21 158/72 (100) 100 11/22/19 05:30 99 20 153/81 (105) 100 11/22/19 05:00 98.0 98 24 162/81 (108) 100 11/22/19 04:35 104 28 30 11/22/19 04:00 96 11/22/19 04:00 30 11/22/19 04:00 98.0 98 24 162/81 (108) 100 11/22/19 04:00 Mechanical Ventilator 11/22/19 03:00 101 25 160/70 (100) 100 11/22/19 02:39 99 24 30 11/22/19 02:00 94 22 155/79 (104) 100 11/22/19 01:53 150/87 11/22/19 01:31 101 27 30 11/22/19 01:00 91 22 145/70 (95) 100 11/22/19 00:00 30 11/22/19 00:00 94 11/22/19 00:00 Mechanical Ventilator 11/22/19 00:00 96 23 139/64 (89) 100 11/21/19 23:52 98 23 30 11/21/19 23:00 90 19 146/67 (93) 100 11/21/19 23:00 146/67 11/21/19 22:00 91 18 139/65 (89) 100 11/21/19 22:00 155/89 11/21/19 21:14 93 25 30 11/21/19 21:00 91 21 148/70 (96) 100 11/21/19 21:00 148/70 11/21/19 20:00 91 11/21/19 20:00 Mechanical Ventilator 11/21/19 20:00 30 11/21/19 20:00 145/70 11/21/19 20:00 98.0 93 26 153/75 (101) 100 11/21/19 19:43 89 20 30 11/21/19 19:30 88 19 150/75 (100) 100 11/21/19 19:00 150/75 11/21/19 19:00 91 22 138/73 (94) 100 11/21/19 18:30 89 21 149/67 (94) 100 11/21/19 18:00 92 23 149/67 (94) 100 11/21/19 18:00 154/71 11/21/19 17:30 88 18 156/68 (97) 100 11/21/19 17:30 87 19 149/74 (99) 100 11/21/19 17:15 87 16 30 11/21/19 17:00 90 21 158/67 (97) 100 11/21/19 17:00 89 18 156/68 (97) 100 11/21/19 17:00 156/68 11/21/19 16:30 88 19 153/68 (96) 100 11/21/19 16:30 98.5 87 18 158/68 (98) 100 11/21/19 16:00 88 11/21/19 16:00 97.5 86 20 150/68 (95) 100 11/21/19 16:00 Mechanical Ventilator 11/21/19 16:00 30 11/21/19 16:00 153/68 11/21/19 16:00 86 18 153/68 (96) 100 11/21/19 15:30 99 32 164/74 (104) 100 11/21/19 15:30 94 22 150/68 (95) 100 11/21/19 15:20 94 22 30 11/21/19 15:00 90 24 144/70 (94) 100 11/21/19 15:00 164/74 11/21/19 15:00 87 16 164/74 (104) 100 11/21/19 14:30 86 22 152/68 (96) 100 11/21/19 14:30 85 17 143/69 (93) 100 11/21/19 14:00 105/82 11/21/19 14:00 86 17 105/82 (90) 100 11/21/19 14:00 86 18 164/72 (102) 100 11/21/19 13:30 88 20 151/69 (96) 100 11/21/19 13:30 94 22 150/68 (95) 100 11/21/19 13:00 151/69 11/21/19 13:00 87 16 164/74 (104) 100 11/21/19 13:00 88 19 148/67 (94) 100 I&O Intake and Output 11/21/19 11/22/19 19:00 07:00 Intake Total 1428.488 ml 1211.240 ml Output Total 1450 ml 950 ml Balance -21.512 ml 261.240 ml IV Total 1428.488 ml 1211.240 ml Output Urine Total 1450 ml 950 ml Dressing: other Wound: other Drains: other Cardiovascular: RSR Respiratory: decreased breath sounds Abdomen: soft, non-tender, present bowel sounds Extremities: no cyanosis, other Laboratory Tests Test 11/22/19 03:00 White Blood Count 11.0 K/UL (4.8-10.8) H Red Blood Count 3.34 M/UL (4.20-5.40) L Hemoglobin 9.3 G/DL (12.0-16.0) L Hematocrit 28.0 % (37.0-47.0) L Mean Corpuscular Volume 84 FL (80-99) Mean Corpuscular Hemoglobin 28.0 PG (27.0-31.0) Mean Corpuscular Hemoglobin Concent 33.4 G/DL (32.0-36.0) Red Cell Distribution Width 14.1 % (11.6-14.8) Platelet Count 234 K/UL (150-450) Mean Platelet Volume 4.5 FL (6.5-10.1) L Neutrophils (%) (Auto) 75.6 % (45.0-75.0) H Lymphocytes (%) (Auto) 13.8 % (20.0-45.0) L Monocytes (%) (Auto) 6.8 % (1.0-10.0) Eosinophils (%) (Auto) 3.5 % (0.0-3.0) H Basophils (%) (Auto) 0.3 % (0.0-2.0) Sodium Level 141 MMOL/L (136-145) Potassium Level 2.5 MMOL/L (3.5-5.1) *L Chloride Level 102 MMOL/L (98-107) Carbon Dioxide Level 17 MMOL/L (21-32) L Anion Gap 22 mmol/L (5-15) H Blood Urea Nitrogen 48 mg/dL (7-18) H Creatinine 4.0 MG/DL (0.55-1.30) H Estimat Glomerular Filtration Rate 13.1 mL/min (>60) Glucose Level 175 MG/DL (74-106) H Calcium Level 6.9 MG/DL (8.5-10.1) L Cortisol AM Sample Pending Plan Problems: (1) Decubitus skin ulcer Assessment & Plan: Pt presented on admission with multiple pressure injuries. DTPI sacrum . Base of injury is indurated,purple with areas that are maroon in colour. An area of fluctuance noted at sacrococcygeal area. Borders are irregular (L)8.5cm x (W)9.3cm.Historical scar also noted within base of Sacral pressure injury. DTPI medial L heel. Base of injury fluctuant,maroon with surrounding non- blanching erythema. (L)1.7cm x (W)1.6cm. DTPI medial R heel. Base of injury is maroon and fluctuant(L)3.1cm x (W)2.5cm. Tx.Plan: Apply Moisture Barrier Paste to Sacrum. Cover with Optifoam drsg. Change every 3 days and prn. Apply Cavilon Skin Barrier to both heels. Cover each heel with Optifoam drsg. Change every 7 days and prn. APM/VALERIE Mattress. Reposition at least every 2 hours or as tolerated. Off-load heels with pillow. Patient is at high risk for deterioration of wounds opening of DTI and formation of worsening decubitus will need close monitoring and significant amount of care to ensure improvement. Nutritional optimization. Will follow with recommendations thank you (2) Failure to thrive in adult Assessment & Plan: Not tolerating tube feeds regurgitation high residuals DAILY ESTIMATED NEEDS: Needs based on Critical care, sepsis, wound, ARF/ 57.7kg abw 22-30 kcals/kg 8599-9910 total kcals 0.8-1.3 (increase w/ renal fxn improvement) g protein/kg 46-75 g total protein 25-30 mL/kg 1327-5758 total fluid mLs NUTRITION DIAGNOSIS: 1) Swallowing difficulty r/t dysphagia as evidenced by pt is Jgemmaube dep, currently orally intubated, NPO. 2) Altered nutrition related lab values r/t respiratory failure, DM, ARF, sepsis as evidenced by COW >45*, elev pH 7.616*, elev K (7.2*), elev creat (8.8), elev BUN (178), elev BG (228), elev LA, elev wbc (22.2*) CURRENT TF:NPO ENTERAL NUTRITION RECOMMENDATIONS: Nepro @ 40ml/hr x 22 hrs to provide 880ml, 1584kcal, 71g prot, 640ml free water * Rec Nepro at this time given ARF, +hyperkalemia w/ creat 8.8. * When medically appropriate, initiate Nepro @ 20ml/hr x 6 hrs, advance 10ml q 4 -6 hrs as tolerated to goal rate * Hold 1 hr before and after Synthroid med * HOB over 30 degrees/ water flush per MD ---- W/ improved renal fxn and normalized lytes, rec Glucerna 1.2 @ 60ml/hr x 22 hrs to provide 1320ml, 1584 kcal, 79g pro, 1063ml free H2O ADDITIONAL RECOMMENDATIONS: 1) Monitor lytes and renal fxn closely -> admitted w/ creat > 8.0, creat previous adm < 2.0 -> K critically elev, s/p kayexalate. 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 (3) Acute respiratory failure Assessment & Plan: As per pulmonology available if trach needs dnr/dni Jared Mcarthur Nov 22, 2019 12:40
--- NOTE | 2019-11-22 12:41 | NUR ---
NURSE NOTES: Dr Mcarthur here to see the patient. Updated him with pt's current condition. Turned and repositioned pt. No acute distress noted.
--- NOTE | 2019-11-22 14:08 | NUR ---
*-* INSURANCE *-* ALL CLINICALS AND REVIEWS HAVE BEEN FAXED TO: [employer] #[phone] fax# [phone]
--- NOTE | 2019-11-22 15:30 | NUR ---
NURSE NOTES: Pressure injury noted on the right lower lip corner where the ETT was, since patient kept biting the tube. ETT was moved to the left corner of the mouth by RT. Picture was taken and uploaded. A&D ointment applied on the right lower lip.
--- NOTE | 2019-11-22 17:08 | Critical Care Progress Note ---
Assessment/Plan Assessment/Plan Respiratory failure, acute on chronic. Alkalemia due to hyperventilation, chronic metabolic alkalosis, chronic respiratory acidosis, leukocytosis, sepsis, anemia, hyponatremia, hyperkalemia, chronic renal failure, severe protein-calorie malnutrition. hyponatremia PLAN repeat imaging care noted and reviewed ID noted and discussed respiratory care reviewed and weaning parameters Ventilatory support - AC and taper off as able discuss wean with nursing and physicians meds noted SNF meds supportive care suction and monitor imaging off load oxygen therapy and titrate prognosis not improved monitor skin exam monitor lytes; renal noted and reviewed hope to avoid trach; monitor parameters medications/laboratory data/nursing notes/ICU care reviewed in detail note reviewed and edited care discussed with RN and RT ICU time spent >40 minutes Critical Care - Subjective Interval Events: events noted difficulty with weaning on full support ICU care noted vitals and labs reviewed d/w staff ROS Limited/Unobtainable: Yes Condition: critical EKG Rhythm: Sinus Rhythm Residuals: minimal Tube Feeding Tolerated: yes I&O: Intake and Output 11/21/19 11/22/19 19:00 07:00 Intake Total 1428.488 ml 1211.240 ml Output Total 1450 ml 950 ml Balance -21.512 ml 261.240 ml IV Total 1428.488 ml 1211.240 ml Output Urine Total 1450 ml 950 ml Critical Care - Objective ET-Tube: 7.5 ET Position: 24 Last 24 Hour Vital Signs Date Time Temp Pulse Resp B/P (MAP) Pulse Ox O2 Delivery O2 Flow Rate FiO2 11/22/19 16:00 98.1 93 18 151/80 (103) 100 11/22/19 16:00 151/80 11/22/19 16:00 30 11/22/19 15:30 Mechanical Ventilator 11/22/19 15:25 96 11/22/19 15:02 97 24 30 11/22/19 15:00 164/85 11/22/19 15:00 96 28 164/85 (111) 100 11/22/19 14:30 93 19 149/85 (106) 100 11/22/19 14:00 91 17 146/69 (94) 100 11/22/19 14:00 146/69 11/22/19 13:30 91 16 145/71 (95) 100 11/22/19 13:00 94 18 138/67 (90) 100 11/22/19 13:00 164/85 11/22/19 12:30 102 24 30 11/22/19 12:30 102 24 151/74 (99) 100 11/22/19 12:00 30 11/22/19 12:00 98.3 100 26 151/74 (99) 100 11/22/19 12:00 151/74 11/22/19 12:00 Mechanical Ventilator 11/22/19 11:46 93 11/22/19 11:30 95 18 140/66 (90) 100 11/22/19 11:17 65 18 30 11/22/19 11:00 96 19 142/71 (94) 100 11/22/19 11:00 94 18 144/69 (94) 100 11/22/19 11:00 96 19 142/71 (94) 100 11/22/19 11:00 142/71 11/22/19 10:30 96 19 140/66 (90) 100 11/22/19 10:00 94 18 144/69 (94) 100 11/22/19 10:00 144/69 11/22/19 09:30 97 19 137/65 (89) 100 11/22/19 09:26 95 19 30 11/22/19 09:00 96 19 141/70 (93) 100 11/22/19 09:00 141/70 11/22/19 08:30 97 19 155/78 (103) 100 11/22/19 08:09 96 11/22/19 08:00 145/77 11/22/19 08:00 Mechanical Ventilator 11/22/19 08:00 30 11/22/19 08:00 98.2 96 19 145/77 (99) 100 11/22/19 07:30 104 28 148/73 (98) 100 11/22/19 07:00 100 20 30 11/22/19 07:00 97 20 149/72 (97) 100 11/22/19 07:00 149/72 11/22/19 06:30 89 17 11/22/19 06:30 96 23 154/72 (99) 100 11/22/19 06:00 97 21 158/72 (100) 100 11/22/19 05:30 99 20 153/81 (105) 100 11/22/19 05:00 98.0 98 24 162/81 (108) 100 11/22/19 04:35 104 28 30 11/22/19 04:00 96 11/22/19 04:00 30 11/22/19 04:00 98.0 98 24 162/81 (108) 100 11/22/19 04:00 Mechanical Ventilator 11/22/19 03:00 101 25 160/70 (100) 100 11/22/19 02:39 99 24 30 11/22/19 02:00 94 22 155/79 (104) 100 11/22/19 01:53 150/87 11/22/19 01:31 101 27 30 11/22/19 01:00 91 22 145/70 (95) 100 11/22/19 00:00 30 11/22/19 00:00 94 11/22/19 00:00 Mechanical Ventilator 11/22/19 00:00 96 23 139/64 (89) 100 11/21/19 23:52 98 23 30 11/21/19 23:00 90 19 146/67 (93) 100 11/21/19 23:00 146/67 11/21/19 22:00 91 18 139/65 (89) 100 11/21/19 22:00 155/89 11/21/19 21:14 93 25 30 11/21/19 21:00 91 21 148/70 (96) 100 11/21/19 21:00 148/70 11/21/19 20:00 91 11/21/19 20:00 Mechanical Ventilator 11/21/19 20:00 30 11/21/19 20:00 145/70 11/21/19 20:00 98.0 93 26 153/75 (101) 100 11/21/19 19:43 89 20 30 11/21/19 19:30 88 19 150/75 (100) 100 11/21/19 19:00 150/75 11/21/19 19:00 91 22 138/73 (94) 100 11/21/19 18:30 89 21 149/67 (94) 100 11/21/19 18:00 92 23 149/67 (94) 100 11/21/19 18:00 154/71 11/21/19 17:30 88 18 156/68 (97) 100 11/21/19 17:30 87 19 149/74 (99) 100 11/21/19 17:15 87 16 30 Labs: Laboratory Tests Test 11/22/19 03:00 White Blood Count 11.0 K/UL (4.8-10.8) H Red Blood Count 3.34 M/UL (4.20-5.40) L Hemoglobin 9.3 G/DL (12.0-16.0) L Hematocrit 28.0 % (37.0-47.0) L Mean Corpuscular Volume 84 FL (80-99) Mean Corpuscular Hemoglobin 28.0 PG (27.0-31.0) Mean Corpuscular Hemoglobin Concent 33.4 G/DL (32.0-36.0) Red Cell Distribution Width 14.1 % (11.6-14.8) Platelet Count 234 K/UL (150-450) Mean Platelet Volume 4.5 FL (6.5-10.1) L Neutrophils (%) (Auto) 75.6 % (45.0-75.0) H Lymphocytes (%) (Auto) 13.8 % (20.0-45.0) L Monocytes (%) (Auto) 6.8 % (1.0-10.0) Eosinophils (%) (Auto) 3.5 % (0.0-3.0) H Basophils (%) (Auto) 0.3 % (0.0-2.0) Sodium Level 141 MMOL/L (136-145) Potassium Level 2.5 MMOL/L (3.5-5.1) *L Chloride Level 102 MMOL/L (98-107) Carbon Dioxide Level 17 MMOL/L (21-32) L Anion Gap 22 mmol/L (5-15) H Blood Urea Nitrogen 48 mg/dL (7-18) H Creatinine 4.0 MG/DL (0.55-1.30) H Estimat Glomerular Filtration Rate 13.1 mL/min (>60) Glucose Level 175 MG/DL (74-106) H Calcium Level 6.9 MG/DL (8.5-10.1) L Cortisol AM Sample 16.1 UG/DL Objective: WDWN ETT in place reduced LOC as prior reduced breath sounds bilaterally without rhonchi or wheeze [id number] without MRG NABS nontender no HSM; no distention feeding tube in place no CC some edema overall same skin noted nonfocal with reduced ROM reviewed and edited Accucheck: 136 Torey Douglass MD Nov 22, 2019 17:08
--- NOTE | 2019-11-22 17:30 | NUR ---
NURSE NOTES: Turned and repositioned pt. No acute distress noted. Pt is still on Dopamine drip at 2mcg/kg/min and NS at 75cc/hr. BP and HR stable. Will continue to monitor.
[2019-11-22] MEDS: cefTRIAXone 1 GM in D5W 55 ML IVPB SCH (17:57)
--- NOTE | 2019-11-22 19:19 | NUR ---
HAND-OFF: Report given to FELY Thornton.
--- NOTE | 2019-11-22 20:00 | NUR ---
NURSE NOTES: received report from amanda winston pt obtunded orally intubated -vent with o2 sat 100% no acute resp distress on dop drip at 2ncg /min reposition and suction urinary output good
--- NOTE | 2019-11-22 20:01 | General Progress Note ---
Assessment/Plan Problem List: (1) Shock ICD Codes: R57.9 - Shock, unspecified SNOMED: 50420937 (2) Anemia due to acute blood loss ICD Codes: D62 - Acute posthemorrhagic anemia SNOMED: 736585787 (3) Hyperkalemia ICD Codes: E87.5 - Hyperkalemia SNOMED: 24433106 (4) Recurrent seizures ICD Codes: G40.909 - Epilepsy, unspecified, not intractable, without status epilepticus SNOMED: 53122698, 08727949 (5) Aspiration pneumonia ICD Codes: J69.0 - Pneumonitis due to inhalation of food and vomit SNOMED: 352307870 (6) ARF (acute renal failure) ICD Codes: N17.9 - Acute kidney failure, unspecified SNOMED: 38238461 (7) ATN (acute tubular necrosis) ICD Codes: N17.0 - Acute kidney failure with tubular necrosis SNOMED: 68150654 Status: stable Assessment/Plan: cont vent support resp care suctioning as needed iv abx pressors at renal dose ivf monitor renal fxn monitor labs and cbc transfuse as needed critical and guarded grim prognosis family considering withdrawl of care Subjective ROS Limited/Unobtainable: No Constitutional: Reports: malaise, weakness HEENT: Reports: no symptoms Cardiovascular: Reports: no symptoms Respiratory: Reports: shortness of breath, sputum Gastrointestinal/Abdominal: Reports: difficulty swallowing Genitourinary: Reports: no symptoms Neurologic/Psychiatric: Reports: depressed, pre-existing deficit Endocrine: Reports: no symptoms Hematologic/Lymphatic: Reports: anemia Allergies: Coded Allergies: No Known Allergies (Verified , 12/31/09) All Systems: reviewed and negative except above Subjective bp improved. on lower dose dopamine. good uop. no fevers. GT replaced. renal fxn improving. family declined HD. renal fxn and urine output improving. Objective Last 24 Hour Vital Signs Date Time Temp Pulse Resp B/P (MAP) Pulse Ox O2 Delivery O2 Flow Rate FiO2 11/22/19 19:44 99 26 30 11/22/19 19:00 94 18 147/71 (96) 100 11/22/19 19:00 147/71 11/22/19 18:00 148/74 11/22/19 18:00 94 18 148/74 (98) 100 11/22/19 17:30 103 23 156/77 (103) 100 11/22/19 17:26 100 23 30 11/22/19 17:00 150/70 11/22/19 17:00 90 15 150/70 (96) 100 11/22/19 16:30 92 18 155/73 (100) 100 11/22/19 16:00 98.1 93 18 151/80 (103) 100 11/22/19 16:00 151/80 11/22/19 16:00 30 11/22/19 15:30 94 20 154/81 (105) 100 11/22/19 15:30 Mechanical Ventilator 11/22/19 15:25 96 11/22/19 15:02 97 24 30 11/22/19 15:00 164/85 11/22/19 15:00 96 28 164/85 (111) 100 11/22/19 14:30 93 19 149/85 (106) 100 11/22/19 14:00 91 17 146/69 (94) 100 11/22/19 14:00 146/69 11/22/19 13:30 91 16 145/71 (95) 100 11/22/19 13:00 94 18 138/67 (90) 100 11/22/19 13:00 164/85 11/22/19 12:30 102 24 30 11/22/19 12:30 102 24 151/74 (99) 100 11/22/19 12:00 30 11/22/19 12:00 98.3 100 26 151/74 (99) 100 11/22/19 12:00 151/74 11/22/19 12:00 Mechanical Ventilator 11/22/19 11:46 93 11/22/19 11:30 95 18 140/66 (90) 100 11/22/19 11:17 65 18 30 11/22/19 11:00 96 19 142/71 (94) 100 11/22/19 11:00 94 18 144/69 (94) 100 11/22/19 11:00 96 19 142/71 (94) 100 11/22/19 11:00 142/71 11/22/19 10:30 96 19 140/66 (90) 100 11/22/19 10:00 94 18 144/69 (94) 100 11/22/19 10:00 144/69 11/22/19 09:30 97 19 137/65 (89) 100 11/22/19 09:26 95 19 30 11/22/19 09:00 96 19 141/70 (93) 100 11/22/19 09:00 141/70 11/22/19 08:30 97 19 155/78 (103) 100 11/22/19 08:09 96 11/22/19 08:00 145/77 11/22/19 08:00 Mechanical Ventilator 11/22/19 08:00 30 11/22/19 08:00 98.2 96 19 145/77 (99) 100 11/22/19 07:30 104 28 148/73 (98) 100 11/22/19 07:00 100 20 30 11/22/19 07:00 97 20 149/72 (97) 100 11/22/19 07:00 149/72 11/22/19 06:30 89 17 11/22/19 06:30 96 23 154/72 (99) 100 11/22/19 06:00 97 21 158/72 (100) 100 11/22/19 05:30 99 20 153/81 (105) 100 11/22/19 05:00 98.0 98 24 162/81 (108) 100 11/22/19 04:35 104 28 30 11/22/19 04:00 96 11/22/19 04:00 30 11/22/19 04:00 98.0 98 24 162/81 (108) 100 11/22/19 04:00 Mechanical Ventilator 11/22/19 03:00 101 25 160/70 (100) 100 11/22/19 02:39 99 24 30 11/22/19 02:00 94 22 155/79 (104) 100 11/22/19 01:53 150/87 11/22/19 01:31 101 27 30 11/22/19 01:00 91 22 145/70 (95) 100 11/22/19 00:00 30 11/22/19 00:00 94 11/22/19 00:00 Mechanical Ventilator 11/22/19 00:00 96 23 139/64 (89) 100 11/21/19 23:52 98 23 30 11/21/19 23:00 90 19 146/67 (93) 100 11/21/19 23:00 146/67 11/21/19 22:00 91 18 139/65 (89) 100 11/21/19 22:00 155/89 11/21/19 21:14 93 25 30 11/21/19 21:00 91 21 148/70 (96) 100 11/21/19 21:00 148/70 Intake and Output 11/21/19 11/22/19 19:00 07:00 Intake Total 1428.488 ml 1211.240 ml Output Total 1450 ml 950 ml Balance -21.512 ml 261.240 ml IV Total 1428.488 ml 1211.240 ml Output Urine Total 1450 ml 950 ml Laboratory Tests 11/22/19 03:00: White Blood Count 11.0H, Red Blood Count 3.34L, Hemoglobin 9.3L, Hematocrit 28.0L, Mean Corpuscular Volume 84, Mean Corpuscular Hemoglobin 28.0, Mean Corpuscular Hemoglobin Concent 33.4, Red Cell Distribution Width 14.1, Platelet Count 234, Mean Platelet Volume 4.5L, Neutrophils (%) (Auto) 75.6H, Lymphocytes (%) (Auto) 13.8L, Monocytes (%) (Auto) 6.8, Eosinophils (%) (Auto) 3.5H, Basophils (%) (Auto) 0.3, Sodium Level 141, Potassium Level 2.5*L, Chloride Level 102, Carbon Dioxide Level 17L, Anion Gap 22H, Blood Urea Nitrogen 48H, Creatinine 4.0H, Estimat Glomerular Filtration Rate 13.1, Glucose Level 175H, Calcium Level 6.9L, Cortisol AM Sample 16.1 Height (Feet): 5 Height (Inches): 3.00 Weight (Pounds): 174 Objective General Appearance: WD/WN, lethargic Neck: normal alignment, supple, normal inspection Cardiovascular: normal rate, regular rhythm Respiratory/Chest: no respiratory distress, no accessory muscle use, rhonchi - bilaterally Abdomen: normal bowel sounds, non tender, soft, no organomegaly, no mass Extremities: normal range of motion, non-tender Neurologic: unresponsive, aphasia Jeffrey Crowder MD Nov 22, 2019 20:01
[2019-11-22] MEDS: Dyna-Hex 2% Top Sol 2oz TOPIC SCH (20:21)
--- NOTE | 2019-11-22 20:55 | General Progress Note ---
Assessment/Plan Status: stable Assessment/Plan: Assessment - h/o gastroparesis and GT feed intolerance - GJ tube dislodged and replaced with G tube - Resp failure, intubated - OBS - Sepeis, shock - CRF - Poor Px Recommendations - OK to use GT for meds - will begin low dose feeds for now - abx / supportive care - elevate HOB - can re-address G to J conversion once stabilized Subjective Allergies: Coded Allergies: No Known Allergies (Verified , 12/31/09) Subjective Above noted d/w RN Still intubated no feeds for several days Objective Last 24 Hour Vital Signs Date Time Temp Pulse Resp B/P (MAP) Pulse Ox O2 Delivery O2 Flow Rate FiO2 11/22/19 20:22 140/73 11/22/19 19:44 99 26 30 11/22/19 19:00 94 18 147/71 (96) 100 11/22/19 19:00 147/71 11/22/19 18:00 148/74 11/22/19 18:00 94 18 148/74 (98) 100 11/22/19 17:30 103 23 156/77 (103) 100 11/22/19 17:26 100 23 30 11/22/19 17:00 150/70 11/22/19 17:00 90 15 150/70 (96) 100 11/22/19 16:30 92 18 155/73 (100) 100 11/22/19 16:00 98.1 93 18 151/80 (103) 100 11/22/19 16:00 151/80 11/22/19 16:00 30 11/22/19 15:30 94 20 154/81 (105) 100 11/22/19 15:30 Mechanical Ventilator 11/22/19 15:25 96 11/22/19 15:02 97 24 30 11/22/19 15:00 164/85 11/22/19 15:00 96 28 164/85 (111) 100 11/22/19 14:30 93 19 149/85 (106) 100 11/22/19 14:00 91 17 146/69 (94) 100 11/22/19 14:00 146/69 11/22/19 13:30 91 16 145/71 (95) 100 11/22/19 13:00 94 18 138/67 (90) 100 11/22/19 13:00 164/85 11/22/19 12:30 102 24 30 11/22/19 12:30 102 24 151/74 (99) 100 11/22/19 12:00 30 11/22/19 12:00 98.3 100 26 151/74 (99) 100 11/22/19 12:00 151/74 11/22/19 12:00 Mechanical Ventilator 11/22/19 11:46 93 11/22/19 11:30 95 18 140/66 (90) 100 11/22/19 11:17 65 18 30 11/22/19 11:00 96 19 142/71 (94) 100 11/22/19 11:00 94 18 144/69 (94) 100 11/22/19 11:00 96 19 142/71 (94) 100 11/22/19 11:00 142/71 11/22/19 10:30 96 19 140/66 (90) 100 11/22/19 10:00 94 18 144/69 (94) 100 11/22/19 10:00 144/69 11/22/19 09:30 97 19 137/65 (89) 100 11/22/19 09:26 95 19 30 11/22/19 09:00 96 19 141/70 (93) 100 11/22/19 09:00 141/70 11/22/19 08:30 97 19 155/78 (103) 100 11/22/19 08:09 96 11/22/19 08:00 145/77 11/22/19 08:00 Mechanical Ventilator 11/22/19 08:00 30 11/22/19 08:00 98.2 96 19 145/77 (99) 100 11/22/19 07:30 104 28 148/73 (98) 100 11/22/19 07:00 100 20 30 11/22/19 07:00 97 20 149/72 (97) 100 11/22/19 07:00 149/72 11/22/19 06:30 89 17 11/22/19 06:30 96 23 154/72 (99) 100 11/22/19 06:00 97 21 158/72 (100) 100 11/22/19 05:30 99 20 153/81 (105) 100 11/22/19 05:00 98.0 98 24 162/81 (108) 100 11/22/19 04:35 104 28 30 11/22/19 04:00 96 11/22/19 04:00 30 11/22/19 04:00 98.0 98 24 162/81 (108) 100 11/22/19 04:00 Mechanical Ventilator 11/22/19 03:00 101 25 160/70 (100) 100 11/22/19 02:39 99 24 30 11/22/19 02:00 94 22 155/79 (104) 100 11/22/19 01:53 150/87 11/22/19 01:31 101 27 30 11/22/19 01:00 91 22 145/70 (95) 100 11/22/19 00:00 30 11/22/19 00:00 94 11/22/19 00:00 Mechanical Ventilator 11/22/19 00:00 96 23 139/64 (89) 100 11/21/19 23:52 98 23 30 11/21/19 23:00 90 19 146/67 (93) 100 11/21/19 23:00 146/67 11/21/19 22:00 91 18 139/65 (89) 100 11/21/19 22:00 155/89 11/21/19 21:14 93 25 30 11/21/19 21:00 91 21 148/70 (96) 100 11/21/19 21:00 148/70 Intake and Output 11/21/19 11/22/19 19:00 07:00 Intake Total 1428.488 ml 1211.240 ml Output Total 1450 ml 950 ml Balance -21.512 ml 261.240 ml IV Total 1428.488 ml 1211.240 ml Output Urine Total 1450 ml 950 ml Laboratory Tests 11/22/19 03:00: White Blood Count 11.0H, Red Blood Count 3.34L, Hemoglobin 9.3L, Hematocrit 28.0L, Mean Corpuscular Volume 84, Mean Corpuscular Hemoglobin 28.0, Mean Corpuscular Hemoglobin Concent 33.4, Red Cell Distribution Width 14.1, Platelet Count 234, Mean Platelet Volume 4.5L, Neutrophils (%) (Auto) 75.6H, Lymphocytes (%) (Auto) 13.8L, Monocytes (%) (Auto) 6.8, Eosinophils (%) (Auto) 3.5H, Basophils (%) (Auto) 0.3, Sodium Level 141, Potassium Level 2.5*L, Chloride Level 102, Carbon Dioxide Level 17L, Anion Gap 22H, Blood Urea Nitrogen 48H, Creatinine 4.0H, Estimat Glomerular Filtration Rate 13.1, Glucose Level 175H, Calcium Level 6.9L, Cortisol AM Sample 16.1 Height (Feet): 5 Height (Inches): 3.00 Weight (Pounds): 174 Objective Debilitated AA woman in ICU on vent NCAT (+) ETT coarse BS/karol RR abd soft, NT, GT in good position no edema Non verbal Darrell Griffith MD Nov 22, 2019 20:55
--- NOTE | 2019-11-22 22:00 | NUR ---
NURSE NOTES: reposition and suction
--- NOTE | 2019-11-22 22:30 | Progress Note ---
DATE: 11/22/2019 CARDIOLOGY PROGRESS NOTE SUBJECTIVE: The patient is on lower dopamine dosing as per review and is much improved. G-tube has been replaced. Feedings ongoing, remains on ventilator support. Already intubated. PHYSICAL EXAMINATION: LUNGS: Bilateral breath sounds. Thin secretions. CARDIAC: Regular rhythm and rate. Normal S1, S2. No new murmur. ABDOMEN: Soft. G-tube intact. EXTREMITIES: Trace edema noted. LABORATORY DATA: White count 11, hemoglobin 9.3. Sodium 141, potassium 2.5. BUN 48, creatinine 4. IMPRESSION: 1. Hypokalemia. 2. Recovering renal failure. 3. Status post shock due to sepsis. 4. Respiratory failure. 5. Acute renal failure. PLAN: 1. Renal dose dopamine. 2. Potassium replacement. 3. Hold antihypertensives. 4. Respiratory hygiene. 5. Nutrition by feeding tube. 6. Recheck magnesium level and to follow up potassium level following replacement therapy. Kavon Peña M.D. DR: MESHA JOB#: [id number] CC:
[2019-11-23] VITALS (41 sets, daily range): BP systolic 122–175; BP diastolic 59–158
--- NOTE | 2019-11-23 | NUR ---
reposition and suction
--- NOTE | 2019-11-23 02:00 | NUR ---
NURSE NOTES: condition unchange
--- NOTE | 2019-11-23 04:00 | NUR ---
NURSE NOTES: bed bath done tolerating tube feeding
--- NOTE | 2019-11-23 06:00 | NUR ---
NURSE NOTES: dr paulino in and seen pt
[2019-11-23] MEDS: NovoLOG Insulin Flexpen SUBQ SCH ×4 (06:06→23:48)
[2019-11-23 06:22] LABS: BASOPHILS % (AUTO) 0.3 % (0.0-2.0); EOSINOPHILS % (AUTO) 3.7 % (0.0-3.0); HEMATOCRIT 26.8 % (37.0-47.0); LYMPHOCYTES % (AUTO) 11.8 % (20.0-45.0); MEAN CORPUSCULAR VOLUME 85 FL (80-99); NEUTROPHILS % (AUTO) 79.3 % (45.0-75.0); PLATELET COUNT 237 K/UL (150-450); RED BLOOD COUNT 3.17 M/UL (4.20-5.40); RED CELL DISTRIBUTION WIDTH 14.1 % (11.6-14.8); WHITE BLOOD COUNT 10.9 K/UL (4.8-10.8)
[2019-11-23 07:03] LABS: ALANINE AMINOTRANSFERASE 7 U/L (12-78); ALBUMIN 1.6 G/DL (3.4-5.0); ALBUMIN/GLOBULIN RATIO 0.3 (1.0-2.7); ALKALINE PHOSPHATASE 97 U/L (46-116); ANION GAP 17 mmol/L (5-15); ASPARTATE AMINO TRANSFERASE 14 U/L (15-37); BILIRUBIN,TOTAL 0.2 MG/DL (0.2-1.0); BLOOD UREA NITROGEN 44 mg/dL (7-18); CALCIUM 7.4 MG/DL (8.5-10.1); CARBON DIOXIDE 19 MMOL/L (21-32); CHLORIDE 108 MMOL/L (98-107); CREATININE 3.5 MG/DL (0.55-1.30); POTASSIUM 3.2 MMOL/L (3.5-5.1); SODIUM 144 MMOL/L (136-145)
--- NOTE | 2019-11-23 07:19 | NUR ---
HAND-OFF: Report given to brionna winston using sbar.
--- NOTE | 2019-11-23 07:21 | NUR ---
HAND-OFF: Report given to [brionna rn using sbar].
--- NOTE | 2019-11-23 07:22 | NUR ---
NURSE NOTES: Received patient from FELY Thornton. patient opens eyes but does not track at this time. patient showing sinus rhythm o the master mechanic with rate of 98 beats per minute at this time. Patient orally intubated with 7.5 ET tube and 24cm at the lip line. Skin breakdown noted on lower lip due to duration of intubation and need for bite block as patient bites ET tube preventing her from getting full volume of breath. Will follow up with wound care nurse about possible protection/treatment for this area. Ventilator setting AC 12, tidal volume 350, fiO2 30%, and PEEP 5. Patient has gastrostomy tube that is patent and asymptomatic at this time. Patient has tube feeding of nepro running at 20mL/hr at this time. Will monitor for vomiting/residual. Patient has perera for urine retention that is patent ans draining cloudy yellow urine with sediment. MD was made aware. Will ensure that the ID MD is aware. patient has sacral partial thickness pressure injury, left heel DTI, and right thigh/abdomen and left upper arm closed blisters. Patient is edematous generalized, non-pitting. Will continue to monitor. Patient on low air loss mattress. Will ensure patient is turned every two hours. Patient has left upper arm PICC line that is dry with dressing dry and intact. patient has IV fluid of normal saline running at 75mL/hr at this time and dopamine running at 2mcg/kg/min. MD ordered for dopamine to be continued at this rate even though blood pressure is elevated at 147/74. Patient has serum potassium level of 3.2 and serum magnesium of 1.6. Will notify Dr Crowder. Patient bed in low position with bed alarm on and call light in reach at this time. Patient repositioned and oral care performed at this time.
--- NOTE | 2019-11-23 07:28 | NUR ---
NURSE NOTES: Spoke with Dr Crowder via telephone call. Notified him regarding serum potassium value of 3.2 and serum magnesium level if 1.6. Received telephone order for 2g Magnesium IVPB once and 40mEq KCl IVPB once. Orders read back, verified, and placed at this time.
[2019-11-23] MEDS: levETIRAcetam 500mg/NS100ml 100 ML IVPB SCH ×2 (09:02→20:40)
[2019-11-23] MEDS: Pantoprazole Inj IVP SCH (09:02)
--- NOTE | 2019-11-23 10:30 | NUR ---
NURSE NOTES: Patient failed weaning trial per RT Jesenia. Patient was unable to get good volume when instructed to take a deep breath. Patient unable to follow commands given mental status. Patient placed back on original ventilator setting of AC 12, tidal volume 350, FiO2 30%, and PEEP 5. Will notify MD when they round on the patient. Will continue to monitor. Patient repositioned at this time.
--- NOTE | 2019-11-23 10:57 | Infectious Diseases Prog Note ---
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 renal failure improving 3. diabetes mellitus 4. CHF 5. CVA 6. respiratory failure 7. leucocytosis improving P 1. d/c linezolid 2. continue ceftriaxone 1 more day 3. will follow up cultures Subjective ROS Limited/Unobtainable: Yes Allergies: Coded Allergies: No Known Allergies (Verified , 12/31/09) Objective Vital Signs Last 24 Hour Vital Signs Date Time Temp Pulse Resp B/P (MAP) Pulse Ox O2 Delivery O2 Flow Rate FiO2 11/23/19 10:00 96 17 122/59 (80) 100 11/23/19 09:30 105 26 169/99 (122) 100 11/23/19 09:10 95 19 30 11/23/19 09:00 100 25 169/99 (122) 100 11/23/19 08:30 98.4 98 19 140/84 (102) 100 11/23/19 08:00 103 11/23/19 08:00 98 20 140/81 (100) 100 11/23/19 08:00 Mechanical Ventilator 11/23/19 08:00 30 11/23/19 07:30 99 22 138/80 (99) 100 11/23/19 07:29 100 23 30 11/23/19 07:00 101 23 153/82 (105) 100 11/23/19 06:30 89 17 11/23/19 06:00 101 26 151/73 (99) 100 11/23/19 05:30 98 24 30 11/23/19 05:00 110 26 175/158 (164) 100 11/23/19 04:00 98.0 106 18 162/87 (112) 100 11/23/19 04:00 108 11/23/19 04:00 Mechanical Ventilator 11/23/19 04:00 30 11/23/19 03:05 105 25 30 11/23/19 03:00 109 24 156/80 (105) 92 11/23/19 02:00 100 23 154/78 (103) 100 11/23/19 01:05 101 21 30 11/23/19 01:00 96 19 155/73 (100) 100 11/23/19 00:00 96 11/23/19 00:00 30 11/23/19 00:00 98.0 95 17 154/75 (101) 100 11/23/19 00:00 Mechanical Ventilator 11/22/19 23:00 95 18 100 11/22/19 23:00 95 18 151/72 (98) 100 11/22/19 22:52 96 19 30 11/22/19 22:00 92 18 147/73 (97) 100 11/22/19 21:01 94 24 30 11/22/19 21:00 92 18 147/73 (97) 100 11/22/19 20:22 140/73 11/22/19 20:00 98.5 100 26 140/73 (95) 100 11/22/19 20:00 Mechanical Ventilator 11/22/19 20:00 30 11/22/19 20:00 91 11/22/19 19:44 99 26 30 11/22/19 19:00 94 18 147/71 (96) 100 11/22/19 19:00 147/71 11/22/19 18:00 148/74 11/22/19 18:00 94 18 148/74 (98) 100 11/22/19 17:30 103 23 156/77 (103) 100 11/22/19 17:26 100 23 30 11/22/19 17:00 150/70 11/22/19 17:00 90 15 150/70 (96) 100 11/22/19 16:30 92 18 155/73 (100) 100 11/22/19 16:00 98.1 93 18 151/80 (103) 100 11/22/19 16:00 151/80 11/22/19 16:00 30 11/22/19 15:30 94 20 154/81 (105) 100 11/22/19 15:30 Mechanical Ventilator 11/22/19 15:25 96 11/22/19 15:02 97 24 30 11/22/19 15:00 164/85 11/22/19 15:00 96 28 164/85 (111) 100 11/22/19 14:30 93 19 149/85 (106) 100 11/22/19 14:00 91 17 146/69 (94) 100 11/22/19 14:00 146/69 11/22/19 13:30 91 16 145/71 (95) 100 11/22/19 13:00 94 18 138/67 (90) 100 11/22/19 13:00 164/85 11/22/19 12:30 102 24 30 11/22/19 12:30 102 24 151/74 (99) 100 11/22/19 12:00 30 11/22/19 12:00 98.3 100 26 151/74 (99) 100 11/22/19 12:00 151/74 11/22/19 12:00 Mechanical Ventilator 11/22/19 11:46 93 11/22/19 11:30 95 18 140/66 (90) 100 11/22/19 11:17 65 18 30 11/22/19 11:00 96 19 142/71 (94) 100 11/22/19 11:00 94 18 144/69 (94) 100 11/22/19 11:00 96 19 142/71 (94) 100 11/22/19 11:00 142/71 Height (Feet): 5 Height (Inches): 3.00 Weight (Pounds): 180 HEENT: other - intubated Respiratory/Chest: lungs clear Cardiovascular: normal rate, regular rhythm, no gallop/murmur Abdomen: soft, non tender, other - GT Extremities: other - + edema, left arm PICC Laboratory Tests Test 11/23/19 05:50 White Blood Count 10.9 K/UL (4.8-10.8) H Red Blood Count 3.17 M/UL (4.20-5.40) L Hemoglobin 9.0 G/DL (12.0-16.0) L Hematocrit 26.8 % (37.0-47.0) L Mean Corpuscular Volume 85 FL (80-99) Mean Corpuscular Hemoglobin 28.3 PG (27.0-31.0) Mean Corpuscular Hemoglobin Concent 33.4 G/DL (32.0-36.0) Red Cell Distribution Width 14.1 % (11.6-14.8) Platelet Count 237 K/UL (150-450) Mean Platelet Volume 4.3 FL (6.5-10.1) L Neutrophils (%) (Auto) 79.3 % (45.0-75.0) H Lymphocytes (%) (Auto) 11.8 % (20.0-45.0) L Monocytes (%) (Auto) 5.0 % (1.0-10.0) Eosinophils (%) (Auto) 3.7 % (0.0-3.0) H Basophils (%) (Auto) 0.3 % (0.0-2.0) Sodium Level 144 MMOL/L (136-145) Potassium Level 3.2 MMOL/L (3.5-5.1) L Chloride Level 108 MMOL/L (98-107) H Carbon Dioxide Level 19 MMOL/L (21-32) L Anion Gap 17 mmol/L (5-15) H Blood Urea Nitrogen 44 mg/dL (7-18) H Creatinine 3.5 MG/DL (0.55-1.30) H Estimat Glomerular Filtration Rate 15.2 mL/min (>60) Glucose Level 230 MG/DL (74-106) H Calcium Level 7.4 MG/DL (8.5-10.1) L Magnesium Level 1.6 MG/DL (1.8-2.4) L Total Bilirubin 0.2 MG/DL (0.2-1.0) Aspartate Amino Transf (AST/SGOT) 14 U/L (15-37) L Alanine Aminotransferase (ALT/SGPT) 7 U/L (12-78) L Alkaline Phosphatase 97 U/L (46-116) Total Protein 6.2 G/DL (6.4-8.2) L Albumin 1.6 G/DL (3.4-5.0) L Globulin 4.6 g/dL Albumin/Globulin Ratio 0.3 (1.0-2.7) L Thyroid Stimulating Hormone (TSH) 5.538 uiU/mL (0.358-3.740) Current Medications Medications (Trade) Dose Ordered Sig/Aaron Route PRN Reason Start Time Stop Time Status Last Admin Dose Admin Acetaminophen (Tylenol) 650 mg Q4H PRN GT Mild Pain/Temp > 100.5 11/17/19 07:30 12/17/19 07:29 11/18/19 20:33 Ceftriaxone Sodium 1 gm/ Dextrose 55 ml @ 110 mls/hr Q24H IVPB 11/18/19 17:00 11/25/19 16:59 11/22/19 17:57 Chlorhexidine Gluconate (Arabella-Hex 2%) 1 applic DAILY@2000 TOPIC 11/15/19 20:00 12/15/19 19:59 11/22/19 20:21 Dextrose (Dextrose 50%) 25 ml Q30M PRN IV Hypoglycemia 11/14/19 19:00 12/14/19 18:59 Dextrose (Dextrose 50%) 50 ml Q30M PRN IV Hypoglycemia 11/14/19 19:00 12/14/19 18:59 Dopamine HCl/ Dextrose 250 ml @ 6.124 mls/ hr Q24H IV 11/21/19 01:15 12/15/19 01:14 11/22/19 20:22 Insulin Aspart (NovoLOG) Q6HR SUBQ 11/15/19 00:00 12/14/19 20:59 11/23/19 06:06 Levetiracetam 100 ml @ 400 mls/hr Q12HR IVPB 11/14/19 15:00 12/14/19 14:59 11/23/19 09:02 Lorazepam (Ativan 2mg/ml 1ml) 1 mg Q4H PRN IV For Anxiety 11/17/19 18:45 11/24/19 18:44 11/19/19 19:57 Lorazepam (Ativan 2mg/ml 1ml) 2 mg Q1H PRN IV For Seizures 11/20/19 14:00 11/27/19 13:59 Magnesium Sulfate 100 ml @ 100 mls/hr Q1H IVPB 11/23/19 09:00 11/23/19 10:59 11/23/19 10:16 Pantoprazole (Protonix) 40 mg DAILY IVP 11/14/19 14:15 12/14/19 14:14 11/23/19 09:02 Potassium Chloride 100 ml @ 50 mls/hr Q2H IVPB 11/23/19 09:00 11/23/19 12:59 11/23/19 09:02 Sodium Chloride 1,000 ml @ 75 mls/hr [id number] IV 11/18/19 17:15 12/18/19 17:14 11/23/19 05:00 Tyrel Prieto MD Nov 23, 2019 10:57"
--- NOTE | 2019-11-23 12:00 | NUR ---
NURSE NOTES: Patient mentation remains unchanged. Sinus rhythm on the conveyor monitor with rate of 97 beats per minute at this time. Patient remains orally intubated with 7.5 ET tube and 24cm at the lip line. gauze remains in place protecting lower lip while bite block in place. Skin barrier cream applied. Ventilator setting AC 12, tidal volume 350, fiO2 30%, and PEEP 5. gastrostomy tube patent and asymptomatic at this time. Tube feeding of nepro running at 30mL/hr at this time. Will monitor for vomiting/residual. 30 mL residual noted. Barron remains patent and draining cloudy yellow urine with sediment. Patient continues to have generalized non-pitting edema. Will continue to monitor. All wounds covered with dressing dry and intact. Will ensure patient is turned every two hours. Left upper arm PICC line remains patent with dressing dry and intact. patient has IV fluid of normal saline running at 75mL/hr at this time and dopamine running at 2mcg/kg/min. Patient bed in low position with bed alarm on and call light in reach at this time. Patient repositioned and oral care performed at this time.
[2019-11-23] MEDS ORDERED: Sterile Water Irrig 1000ml IRRIG ONE (12:47)
[2019-11-23] MEDS ORDERED: 1/2 NS 1000ml IV ONE (12:47)
[2019-11-23] MEDS ORDERED: NS 275ml ONE ×2 (12:47→14:20)
--- NOTE | 2019-11-23 12:57 | Surgery Progress Note ---
Surgery Progress Note Subjective Additional Comments ill appearing on vents support unable o wean Objective Last 24 Hour Vital Signs Date Time Temp Pulse Resp B/P (MAP) Pulse Ox O2 Delivery O2 Flow Rate FiO2 11/23/19 12:30 96 18 131/64 (86) 99 11/23/19 12:00 98.0 99 19 146/70 (95) 100 11/23/19 12:00 98 11/23/19 12:00 Mechanical Ventilator 11/23/19 12:00 30 11/23/19 11:30 101 31 169/91 (117) 99 11/23/19 11:17 96 19 30 11/23/19 11:00 99 20 129/69 (89) 100 11/23/19 10:30 103 22 137/71 (93) 100 11/23/19 10:00 96 17 122/59 (80) 100 11/23/19 09:30 105 26 169/99 (122) 100 11/23/19 09:10 95 19 30 11/23/19 09:00 100 25 169/99 (122) 100 11/23/19 08:30 98.4 98 19 140/84 (102) 100 11/23/19 08:00 103 11/23/19 08:00 98 20 140/81 (100) 100 11/23/19 08:00 Mechanical Ventilator 11/23/19 08:00 30 11/23/19 07:30 99 22 138/80 (99) 100 11/23/19 07:29 100 23 30 11/23/19 07:00 101 23 153/82 (105) 100 11/23/19 06:30 89 17 11/23/19 06:00 101 26 151/73 (99) 100 11/23/19 05:30 98 24 30 11/23/19 05:00 110 26 175/158 (164) 100 11/23/19 04:00 98.0 106 18 162/87 (112) 100 11/23/19 04:00 108 11/23/19 04:00 Mechanical Ventilator 11/23/19 04:00 30 11/23/19 03:05 105 25 30 11/23/19 03:00 109 24 156/80 (105) 92 11/23/19 02:00 100 23 154/78 (103) 100 11/23/19 01:05 101 21 30 11/23/19 01:00 96 19 155/73 (100) 100 11/23/19 00:00 96 11/23/19 00:00 30 11/23/19 00:00 98.0 95 17 154/75 (101) 100 11/23/19 00:00 Mechanical Ventilator 11/22/19 23:00 95 18 100 11/22/19 23:00 95 18 151/72 (98) 100 11/22/19 22:52 96 19 30 11/22/19 22:00 92 18 147/73 (97) 100 11/22/19 21:01 94 24 30 11/22/19 21:00 92 18 147/73 (97) 100 11/22/19 20:22 140/73 11/22/19 20:00 98.5 100 26 140/73 (95) 100 11/22/19 20:00 Mechanical Ventilator 11/22/19 20:00 30 11/22/19 20:00 91 11/22/19 19:44 99 26 30 11/22/19 19:00 94 18 147/71 (96) 100 11/22/19 19:00 147/71 11/22/19 18:00 148/74 11/22/19 18:00 94 18 148/74 (98) 100 11/22/19 17:30 103 23 156/77 (103) 100 11/22/19 17:26 100 23 30 11/22/19 17:00 150/70 11/22/19 17:00 90 15 150/70 (96) 100 11/22/19 16:30 92 18 155/73 (100) 100 11/22/19 16:00 98.1 93 18 151/80 (103) 100 11/22/19 16:00 151/80 11/22/19 16:00 30 11/22/19 15:30 94 20 154/81 (105) 100 11/22/19 15:30 Mechanical Ventilator 11/22/19 15:25 96 11/22/19 15:02 97 24 30 11/22/19 15:00 164/85 11/22/19 15:00 96 28 164/85 (111) 100 11/22/19 14:30 93 19 149/85 (106) 100 11/22/19 14:00 91 17 146/69 (94) 100 3/17/20 14:00 146/69 11/22/19 13:30 91 16 145/71 (95) 100 11/22/19 13:00 94 18 138/67 (90) 100 11/22/19 13:00 164/85 I&O Intake and Output 11/22/19 11/23/19 19:00 07:00 Intake Total 1578.488 ml 883.992 ml Output Total 1060 ml 1100 ml Balance 518.488 ml -216.008 ml Intake Free Water 30 ml IV Total 1578.488 ml 723.992 ml Tube Feeding 130 ml Output Urine Total 1060 ml 1100 ml Dressing: saturated Wound: other Drains: other Cardiovascular: RSR Respiratory: decreased breath sounds Abdomen: soft, non-tender, present bowel sounds Extremities: no cyanosis, other Laboratory Tests Test 11/23/19 05:50 White Blood Count 10.9 K/UL (4.8-10.8) H Red Blood Count 3.17 M/UL (4.20-5.40) L Hemoglobin 9.0 G/DL (12.0-16.0) L Hematocrit 26.8 % (37.0-47.0) L Mean Corpuscular Volume 85 FL (80-99) Mean Corpuscular Hemoglobin 28.3 PG (27.0-31.0) Mean Corpuscular Hemoglobin Concent 33.4 G/DL (32.0-36.0) Red Cell Distribution Width 14.1 % (11.6-14.8) Platelet Count 237 K/UL (150-450) Mean Platelet Volume 4.3 FL (6.5-10.1) L Neutrophils (%) (Auto) 79.3 % (45.0-75.0) H Lymphocytes (%) (Auto) 11.8 % (20.0-45.0) L Monocytes (%) (Auto) 5.0 % (1.0-10.0) Eosinophils (%) (Auto) 3.7 % (0.0-3.0) H Basophils (%) (Auto) 0.3 % (0.0-2.0) Sodium Level 144 MMOL/L (136-145) Potassium Level 3.2 MMOL/L (3.5-5.1) L Chloride Level 108 MMOL/L (98-107) H Carbon Dioxide Level 19 MMOL/L (21-32) L Anion Gap 17 mmol/L (5-15) H Blood Urea Nitrogen 44 mg/dL (7-18) H Creatinine 3.5 MG/DL (0.55-1.30) H Estimat Glomerular Filtration Rate 15.2 mL/min (>60) Glucose Level 230 MG/DL (74-106) H Calcium Level 7.4 MG/DL (8.5-10.1) L Magnesium Level 1.6 MG/DL (1.8-2.4) L Total Bilirubin 0.2 MG/DL (0.2-1.0) Aspartate Amino Transf (AST/SGOT) 14 U/L (15-37) L Alanine Aminotransferase (ALT/SGPT) 7 U/L (12-78) L Alkaline Phosphatase 97 U/L (46-116) Total Protein 6.2 G/DL (6.4-8.2) L Albumin 1.6 G/DL (3.4-5.0) L Globulin 4.6 g/dL Albumin/Globulin Ratio 0.3 (1.0-2.7) L Thyroid Stimulating Hormone (TSH) 5.538 uiU/mL (0.358-3.740) Plan Problems: (1) Decubitus skin ulcer Assessment & Plan: Pt presented on admission with multiple pressure injuries. DTPI sacrum . Base of injury is indurated,purple with areas that are maroon in colour. An area of fluctuance noted at sacrococcygeal area. Borders are irregular (L)8.5cm x (W)9.3cm.Historical scar also noted within base of Sacral pressure injury. DTPI medial L heel. Base of injury fluctuant,maroon with surrounding non- blanching erythema. (L)1.7cm x (W)1.6cm. DTPI medial R heel. Base of injury is maroon and fluctuant(L)3.1cm x (W)2.5cm. Tx.Plan: Apply Moisture Barrier Paste to Sacrum. Cover with Optifoam drsg. Change every 3 days and prn. Apply Cavilon Skin Barrier to both heels. Cover each heel with Optifoam drsg. Change every 7 days and prn. APM/VALERIE Mattress. Reposition at least every 2 hours or as tolerated. Off-load heels with pillow. Patient is at high risk for deterioration of wounds opening of DTI and formation of worsening decubitus will need close monitoring and significant amount of care to ensure improvement. Nutritional optimization. Will follow with recommendations thank you (2) Failure to thrive in adult Assessment & Plan: Not tolerating tube feeds regurgitation high residuals DAILY ESTIMATED NEEDS: Needs based on Critical care, sepsis, wound, ARF/ 57.7kg abw 22-30 kcals/kg [id number] total kcals 0.8-1.3 (increase w/ renal fxn improvement) g protein/kg 46-75 g total protein 25-30 mL/kg [id number] total fluid mLs NUTRITION DIAGNOSIS: 1) Swallowing difficulty r/t dysphagia as evidenced by pt is Jtube dep, currently orally intubated, NPO. 2) Altered nutrition related lab values r/t respiratory failure, DM, ARF, sepsis as evidenced by COW >45*, elev pH 7.616*, elev K (7.2*), elev creat (8.8), elev BUN (178), elev BG (228), elev LA, elev wbc (22.2*) CURRENT TF:NPO ENTERAL NUTRITION RECOMMENDATIONS: Nepro @ 40ml/hr x 22 hrs to provide 880ml, 1584kcal, 71g prot, 640ml free water * Rec Nepro at this time given ARF, +hyperkalemia w/ creat 8.8. * When medically appropriate, initiate Nepro @ 20ml/hr x 6 hrs, advance 10ml q 4 -6 hrs as tolerated to goal rate * Hold 1 hr before and after Synthroid med * HOB over 30 degrees/ water flush per MD ---- W/ improved renal fxn and normalized lytes, rec Glucerna 1.2 @ 60ml/hr x 22 hrs to provide 1320ml, 1584 kcal, 79g pro, 1063ml free H2O ADDITIONAL RECOMMENDATIONS: 1) Monitor lytes and renal fxn closely -> admitted w/ creat > 8.0, creat previous adm < 2.0 -> K critically elev, s/p kayexalate. -> Rec Nepro at this time 2) Wound care: add Maik BID as tolerated/ f/up w/ WC eval 3) Calibrated bedscale wt- w/ added p200 mattress + pump 4) Pt on Synthroid [employer]:currently not on the med list. (3) Acute respiratory failure Assessment & Plan: As per pulmonology available if trach needs dnr/dni family considering care plan not interested in trach at this time Jared Mcarthur Nov 23, 2019 12:57
--- NOTE | 2019-11-23 13:31 | NUR ---
CASE MANAGEMENT:REVIEW SI;RESPIRATORY FAILURE - ORALLY INTUBATED SEPSIS. ACUTE RENAL FAILURE. 98.0 105 31 169/99 99% MECH VENT AC 12 TV 350 PEEP 5.0 FIO2 @ 30% WBC 18 H/H 9.0/26.8 K+ 3.2 CL 108 CO2 19 BUN 44 CR 3.5 BG 230 CA 7.4 MG 1.6 TSH 5.538 IS;DOPAMINE GTT IVF NS @ 75 ML/HR ROCEPHIN IV Q24 HRS ATIVAN IV Q4 HRS PRN KEPPRA IV Q12 HRS ICU STATUS DCP; [facility]
--- NOTE | 2019-11-23 14:00 | NUR ---
NURSE NOTES: Patient eyes open but she does not track with her eyes. Vital signs stable. NO sign of distress. Gastric residual 80mL. Residual taken out and discarded. Will continue to monitor and hold feeding if necessary. Patient repositioned. Bed in low position with HOB at 30 degrees.
--- NOTE | 2019-11-23 16:00 | NUR ---
NURSE NOTES: Patient mentation remains unchanged. 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 Patient remains orally intubated with 7.5 ET tube and 24cm at the lip line. gauze remains in place protecting lower lip while bite block in place. Skin barrier cream applied. Ventilator setting AC 12, tidal volume 350, fiO2 30%, and PEEP 5. gastrostomy tube patent and asymptomatic at this time. Tube feeding of nepro running at 30mL/hr at this time. Will monitor for vomiting/residual. Barron remains patent and draining cloudy yellow urine with sediment. Patient continues to have generalized non-pitting edema. Will continue to monitor. All wounds covered with dressing, dry and intact. Will ensure patient is turned every two hours. Left upper arm PICC line remains patent with dressing dry and intact. patient has IV fluid of normal saline running at 75mL/hr at this time and dopamine running at 2mcg/kg/min. Patient bed in low position with bed alarm on and call light in reach at this time. Patient repositioned and oral care performed at this time.
--- NOTE | 2019-11-23 16:46 | Pulmonolgy Critical Care Note ---
Critical Care - Asmt/Plan Assessment/Plan: Pulmonary CCM Progress Note Assessment/Plan Respiratory failure, acute on chronic. Alkalemia due to hyperventilation, chronic metabolic alkalosis, chronic respiratory acidosis, leukocytosis, sepsis, anemia, hyponatremia, hyperkalemia, chronic renal failure, severe protein-calorie malnutrition. hyponatremia PLAN care noted and reviewed ID noted and discussed respiratory care reviewed and weaning parameters Ventilatory support - AC and taper off as able discuss wean with nursing and physicians meds noted SNF meds supportive care suction and monitor imaging off load oxygen therapy and titrate prognosis not improved monitor skin exam monitor lytes; renal noted and reviewed hope to avoid trach; monitor parameters medications/laboratory data/nursing notes/ICU care reviewed in detail note reviewed and edited care discussed with RN and RT ICU time spent >40 minutes Critical Care - Subjective Interval Events: events noted difficulty with weaning on full support ICU care noted vitals and labs reviewed d/w staff ROS Limited/Unobtainable: Yes Condition: critical EKG Rhythm: Sinus Rhythm Residuals: minimal Tube Feeding Tolerated: yes Critical Care - Objective ET-Tube: 7.5 ET Position: 24 Vital Signs Noted Laboratory Tests Test 11/22/19 03:00 White Blood Count 11.0 K/UL (4.8-10.8) H Red Blood Count 3.34 M/UL (4.20-5.40) L Hemoglobin 9.3 G/DL (12.0-16.0) L Hematocrit 28.0 % (37.0-47.0) L Mean Corpuscular Volume 84 FL (80-99) Mean Corpuscular Hemoglobin 28.0 PG (27.0-31.0) Mean Corpuscular Hemoglobin Concent 33.4 G/DL (32.0-36.0) Red Cell Distribution Width 14.1 % (11.6-14.8) Platelet Count 234 K/UL (150-450) Mean Platelet Volume 4.5 FL (6.5-10.1) L Neutrophils (%) (Auto) 75.6 % (45.0-75.0) H Lymphocytes (%) (Auto) 13.8 % (20.0-45.0) L Monocytes (%) (Auto) 6.8 % (1.0-10.0) Eosinophils (%) (Auto) 3.5 % (0.0-3.0) H Basophils (%) (Auto) 0.3 % (0.0-2.0) Sodium Level 141 MMOL/L (136-145) Potassium Level 2.5 MMOL/L (3.5-5.1) *L Chloride Level 102 MMOL/L (98-107) Carbon Dioxide Level 17 MMOL/L (21-32) L Anion Gap 22 mmol/L (5-15) H Blood Urea Nitrogen 48 mg/dL (7-18) H Creatinine 4.0 MG/DL (0.55-1.30) H Estimat Glomerular Filtration Rate 13.1 mL/min (>60) Glucose Level 175 MG/DL (74-106) H Calcium Level 6.9 MG/DL (8.5-10.1) L Cortisol AM Sample 16.1 UG/DL Objective: WDWN ETT in place reduced LOC as prior reduced breath sounds bilaterally without rhonchi or wheeze [id number] without MRG NABS nontender no HSM; no distention feeding tube in place no CC some edema overall same skin noted nonfocal with reduced ROM reviewed and edited Critical Care - Objective Last 24 Hour Vital Signs Date Time Temp Pulse Resp B/P (MAP) Pulse Ox O2 Delivery O2 Flow Rate FiO2 11/23/19 16:30 95 18 131/63 (85) 100 11/23/19 16:00 98.2 97 20 132/67 (88) 93 11/23/19 16:00 30 11/23/19 16:00 Mechanical Ventilator 11/23/19 15:30 98 23 141/79 (99) 98 11/23/19 15:00 94 17 125/63 (83) 100 11/23/19 15:00 125/63 11/23/19 14:46 99 22 30 11/23/19 14:30 97 19 132/72 (92) 100 11/23/19 14:00 97 20 131/70 (90) 100 11/23/19 14:00 131/70 11/23/19 13:30 95 18 136/71 (92) 100 11/23/19 13:25 97 19 30 11/23/19 13:00 136/71 11/23/19 13:00 97 20 131/70 (90) 100 11/23/19 12:30 96 18 131/64 (86) 99 11/23/19 12:00 98.0 99 19 146/70 (95) 100 11/23/19 12:00 98 11/23/19 12:00 131/64 11/23/19 12:00 Mechanical Ventilator 11/23/19 12:00 30 11/23/19 11:30 101 31 169/91 (117) 99 11/23/19 11:17 96 19 30 11/23/19 11:00 169/91 11/23/19 11:00 99 20 129/69 (89) 100 11/23/19 10:30 103 22 137/71 (93) 100 11/23/19 10:00 96 17 122/59 (80) 100 11/23/19 10:00 137/71 11/23/19 09:30 105 26 169/99 (122) 100 11/23/19 09:10 95 19 30 11/23/19 09:00 100 25 169/99 (122) 100 11/23/19 09:00 169/99 11/23/19 08:30 98.4 98 19 140/84 (102) 100 11/23/19 08:00 140/84 11/23/19 08:00 103 11/23/19 08:00 98 20 140/81 (100) 100 11/23/19 08:00 Mechanical Ventilator 11/23/19 08:00 30 11/23/19 07:30 99 22 138/80 (99) 100 11/23/19 07:29 100 23 30 11/23/19 07:00 138/80 11/23/19 07:00 101 23 153/82 (105) 100 11/23/19 06:30 89 17 11/23/19 06:00 101 26 151/73 (99) 100 11/23/19 05:30 98 24 30 11/23/19 05:00 110 26 175/158 (164) 100 11/23/19 04:00 98.0 106 18 162/87 (112) 100 11/23/19 04:00 108 11/23/19 04:00 Mechanical Ventilator 11/23/19 04:00 30 11/23/19 03:05 105 25 30 11/23/19 03:00 109 24 156/80 (105) 92 11/23/19 02:00 100 23 154/78 (103) 100 11/23/19 01:05 101 21 30 11/23/19 01:00 96 19 155/73 (100) 100 11/23/19 00:00 96 11/23/19 00:00 30 11/23/19 00:00 98.0 95 17 154/75 (101) 100 11/23/19 00:00 Mechanical Ventilator 11/22/19 23:00 95 18 100 11/22/19 23:00 95 18 151/72 (98) 100 11/22/19 22:52 96 19 30 11/22/19 22:00 92 18 147/73 (97) 100 11/22/19 21:01 94 24 30 11/22/19 21:00 92 18 147/73 (97) 100 11/22/19 20:22 140/73 11/22/19 20:00 98.5 100 26 140/73 (95) 100 11/22/19 20:00 Mechanical Ventilator 11/22/19 20:00 30 11/22/19 20:00 91 11/22/19 19:44 99 26 30 11/22/19 19:00 94 18 147/71 (96) 100 11/22/19 19:00 147/71 11/22/19 18:00 148/74 11/22/19 18:00 94 18 148/74 (98) 100 11/22/19 17:30 103 23 156/77 (103) 100 11/22/19 17:26 100 23 30 11/22/19 17:00 150/70 11/22/19 17:00 90 15 150/70 (96) 100 Accucheck: 185 Critical Care - Subjective ROS Limited/Unobtainable: No FI02: 30 Vent Support Breath Rate: 12 Vent Support Mode: AC Vent Tidal Volume: 350 Sputum Amount: Small PEEP: 5.0 PIP: 22 Tube Feeding Amount: 30 I&O: Intake and Output 11/22/19 11/23/19 19:00 07:00 Intake Total 1578.488 ml 890.116 ml Output Total 1060 ml 1100 ml Balance 518.488 ml -209.884 ml Intake Free Water 30 ml IV Total 1578.488 ml 730.116 ml Tube Feeding 130 ml Output Urine Total 1060 ml 1100 ml ET-Tube: 7.5 ET Position: 24 Kavon Seals MD Nov 23, 2019 16:46
[2019-11-23] MEDS: cefTRIAXone 1 GM in D5W 55 ML IVPB SCH (17:26)
--- NOTE | 2019-11-23 18:00 | NUR ---
NURSE NOTES: Vital signs stable. No sign of acute distress. Patient had large green soft stool. Patient repositioned and bed bath done.
--- NOTE | 2019-11-23 19:15 | NUR ---
HAND-OFF: Report given to FELY holly. no sign of acute distress. Endorsed to follow up.
--- NOTE | 2019-11-23 19:27 | NUR ---
RESPIRATORY NOTE: PT RECEIVED STABLE ON CURRENT VENT ORDERS: AC/VC 12, 350, 30%, +5. ALARMS ARE ON AND AUDIBLE. VENT CIRCUIT AND SX TUBBING ARE SECURE AND OUT OF THE WAY. NO S/S OF RESPIRATORY DISTRESS NOTED AT THIS TIME. WILL CONTINUE TO CLOSELY MONITOR.
--- NOTE | 2019-11-23 19:53 | NUR ---
NURSE NOTES: PATIENT OPEN EYES, DID NOT FOLLOW COMMANDS, ON ETT TO VENT, AV12/TV350/FIO2 30%/PEEP5, O2 SATURATION 100%, HEART RATE 90'S/MIN SR NOTED, ABDOMEN SOFT, NON TENDER, G TUBE INTACT AND PATENT, ONGOING NEPRO 30ML/HR, RESIDUE 50ML NOTED, KEPT HOB OVER 30 DEGREES, ASPIRATION AND SZ PRECAUTION, F/C INTACT AND PATENT, YELLOW URINE OUTED, PICC LINE TO LEFT UPPER ARM, INTACT AND PATENT, ONGOING IV FLUID NS AT 75ML/HR AND DOPAMINE 2MCG/KG/MIN VIA PICC LINE, ON P200 BED, MADE LOWER BED POSITION, ON BED ALARM AND LOCKED, PROVIDED CALL LIGHT WITHIN REACH, WILL CONTINUE TO MONITOR.
[2019-11-23] MEDS: Dyna-Hex 2% Top Sol 2oz TOPIC SCH (20:04)
--- NOTE | 2019-11-23 20:31 | General Progress Note ---
Assessment/Plan Status: stable Assessment/Plan: Assessment - h/o gastroparesis and GT feed intolerance - GJ tube dislodged and replaced with G tube - Resp failure, intubated - OBS - Sepeis, shock - CRF - Poor Px Recommendations - continue TF - would hold if extubated - abx / supportive care - elevate HOB - can re-address G to J conversion once stabilized Subjective Allergies: Coded Allergies: No Known Allergies (Verified , 12/31/09) Subjective Above noted d/w RN Tolerating TF rate increased Objective Last 24 Hour Vital Signs Date Time Temp Pulse Resp B/P (MAP) Pulse Ox O2 Delivery O2 Flow Rate FiO2 11/23/19 19:27 94 23 30 11/23/19 19:00 94 17 130/64 (86) 100 11/23/19 19:00 130/64 11/23/19 18:30 95 18 127/64 (85) 100 11/23/19 18:00 99 24 129/65 (86) 100 11/23/19 18:00 129/65 11/23/19 18:00 94 18 145/88 (107) 98 11/23/19 17:30 94 22 130/66 (87) 100 11/23/19 17:26 94 22 30 11/23/19 17:00 130/66 11/23/19 17:00 100 18 130/66 (87) 100 11/23/19 16:30 95 18 131/63 (85) 100 11/23/19 16:00 98.2 97 20 132/67 (88) 93 11/23/19 16:00 93 11/23/19 16:00 131/63 11/23/19 16:00 30 11/23/19 16:00 Mechanical Ventilator 11/23/19 15:30 98 23 141/79 (99) 98 11/23/19 15:00 94 17 125/63 (83) 100 11/23/19 15:00 125/63 11/23/19 14:46 99 22 30 11/23/19 14:30 97 19 132/72 (92) 100 11/23/19 14:00 97 20 131/70 (90) 100 11/23/19 14:00 131/70 11/23/19 13:30 95 18 136/71 (92) 100 11/23/19 13:25 97 19 30 11/23/19 13:00 136/71 11/23/19 13:00 97 20 131/70 (90) 100 11/23/19 12:30 96 18 131/64 (86) 99 11/23/19 12:00 98.0 99 19 146/70 (95) 100 11/23/19 12:00 98 11/23/19 12:00 131/64 11/23/19 12:00 Mechanical Ventilator 11/23/19 12:00 30 11/23/19 11:30 101 31 169/91 (117) 99 11/23/19 11:17 96 19 30 11/23/19 11:00 169/91 11/23/19 11:00 99 20 129/69 (89) 100 11/23/19 10:30 103 22 137/71 (93) 100 11/23/19 10:00 96 17 122/59 (80) 100 11/23/19 10:00 137/71 11/23/19 09:30 105 26 169/99 (122) 100 11/23/19 09:10 95 19 30 11/23/19 09:00 100 25 169/99 (122) 100 11/23/19 09:00 169/99 11/23/19 08:30 98.4 98 19 140/84 (102) 100 11/23/19 08:00 140/84 11/23/19 08:00 103 11/23/19 08:00 98 20 140/81 (100) 100 11/23/19 08:00 Mechanical Ventilator 11/23/19 08:00 30 11/23/19 07:30 99 22 138/80 (99) 100 11/23/19 07:29 100 23 30 11/23/19 07:00 138/80 11/23/19 07:00 101 23 153/82 (105) 100 11/23/19 06:30 89 17 11/23/19 06:00 101 26 151/73 (99) 100 11/23/19 05:30 98 24 30 11/23/19 05:00 110 26 175/158 (164) 100 11/23/19 04:00 98.0 106 18 162/87 (112) 100 11/23/19 04:00 108 11/23/19 04:00 Mechanical Ventilator 11/23/19 04:00 30 11/23/19 03:05 105 25 30 11/23/19 03:00 109 24 156/80 (105) 92 11/23/19 02:00 100 23 154/78 (103) 100 11/23/19 01:05 101 21 30 11/23/19 01:00 96 19 155/73 (100) 100 11/23/19 00:00 96 11/23/19 00:00 30 11/23/19 00:00 98.0 95 17 154/75 (101) 100 11/23/19 00:00 Mechanical Ventilator 11/22/19 23:00 95 18 100 11/22/19 23:00 95 18 151/72 (98) 100 11/22/19 22:52 96 19 30 11/22/19 22:00 92 18 147/73 (97) 100 11/22/19 21:01 94 24 30 11/22/19 21:00 92 18 147/73 (97) 100 Intake and Output 11/22/19 11/23/19 19:00 07:00 Intake Total 1578.488 ml 890.116 ml Output Total 1060 ml 1100 ml Balance 518.488 ml -209.884 ml Intake Free Water 30 ml IV Total 1578.488 ml 730.116 ml Tube Feeding 130 ml Output Urine Total 1060 ml 1100 ml Laboratory Tests 11/23/19 05:50: White Blood Count 10.9H, Red Blood Count 3.17L, Hemoglobin 9.0L, Hematocrit 26.8L, Mean Corpuscular Volume 85, Mean Corpuscular Hemoglobin 28.3, Mean Corpuscular Hemoglobin Concent 33.4, Red Cell Distribution Width 14.1, Platelet Count 237, Mean Platelet Volume 4.3L, Neutrophils (%) (Auto) 79.3H, Lymphocytes (%) (Auto) 11.8L, Monocytes (%) (Auto) 5.0, Eosinophils (%) (Auto) 3.7H, Basophils (%) (Auto) 0.3, Sodium Level 144, Potassium Level 3.2L, Chloride Level 108H, Carbon Dioxide Level 19L, Anion Gap 17H, Blood Urea Nitrogen 44H, Creatinine 3.5H, Estimat Glomerular Filtration Rate 15.2, Glucose Level 230H, Calcium Level 7.4L, Magnesium Level 1.6L, Total Bilirubin 0.2, Aspartate Amino Transf (AST/SGOT) 14L, Alanine Aminotransferase (ALT/SGPT) 7L, Alkaline Phosphatase 97, Total Protein 6.2L, Albumin 1.6L, Globulin 4.6, Albumin/ Globulin Ratio 0.3L, Thyroid Stimulating Hormone (TSH) 5.538H Height (Feet): 5 Height (Inches): 3.00 Weight (Pounds): 180 Objective Debilitated AA woman in ICU on vent NCAT (+) ETT coarse BS/karol RR abd soft, NT, GT in good position no edema Non verbal Darrell Griffith MD Nov 23, 2019 20:31
--- NOTE | 2019-11-23 21:58 | NUR ---
NURSE NOTES: VSS ON DOPAMINE 2MCG/KG/MIN, NO DISTRESS NOTED AT THIS TIME.
--- NOTE | 2019-11-23 22:45 | Progress Note ---
DATE: 11/23/2019 CARDIOLOGY PROGRESS NOTE SUBJECTIVE: Condition largely unchanged. The patient in the intensive care unit, orally intubated and mechanically ventilated. Tolerating feedings. Monitored sinus rhythm with occasional atrial ectopics. PHYSICAL EXAMINATION: LUNGS: Coarse breath sounds. Rhonchi, thick secretions. CARDIAC: Regular rhythm and rate. Normal S1, S2. ABDOMEN: Soft. GJ tube intact. EXTREMITIES: No edema. LABORATORY DATA: White count 10.9, hemoglobin 9. Sodium 144, potassium 3.2, bicarbonate 19, BUN 44, creatinine 3.5. Magnesium 1.6. TSH 5.5. IMPRESSION: 1. Respiratory failure, status post sepsis with shock. 2. Hypokalemia. 3. Hypomagnesemia. 4. Hypothyroidism. 5. Severe protein-calorie malnutrition. 6. Acute on chronic diastolic congestive heart failure. 7. Hypertensive heart disease. 8. Acute on chronic renal failure. 9. Type 2 diabetes mellitus. PLAN: 1. Replace potassium and magnesium. 2. Continue to monitor renal function with urine output and cardiorenal parameters. 3. Insulin coverage by sliding scale. 4. Nutrition by feeding tube. 5. Weaning efforts. 6. May need trach. 7. No diuresis at this time. 8. Type 2 diabetes mellitus. Kavon Peña M.D. DR: MESHA JOB#: [id number] CC:
[2019-11-24] VITALS (31 sets, daily range): BP systolic 125–165; BP diastolic 56–95
--- NOTE | 2019-11-24 00:26 | NUR ---
NURSE NOTES: VSS, ONGOING DOPAMINE 1MCG/KG/MIN VIA PICC LINE, NO PAIN OR SOB NOTED AT THIS TIME.
[2019-11-24] MEDS: DOPamine 400mg/250ml 250 ML IV SCH (01:14)
--- NOTE | 2019-11-24 02:34 | NUR ---
NURSE NOTES: SUCTIONED, ORAL CARE WAS DONE, NO PAIN OR DISTRESS NOTED AT THIS TIME.
--- NOTE | 2019-11-24 03:41 | NUR ---
NURSE NOTES: HELD DOPAMINE DRIP SINCE 0230AM DUE TO SBP OVER 150MMHG, BP 155/79MMHG, HR 90 SR NOTED AT THIS TIME.
--- NOTE | 2019-11-24 04:30 | NUR ---
RESPIRATORY NOTE: PT REMAINED STABLE ON CMV WITH CURRENT SETTINGS. SX PRN. AIRWAY IS SECURE AND PATENT. VENT CIRCUIT AND SX TUBBING SECURE AND OUT OF THE WAY. NO S/S OF RESPIRATORY DISTRESS NOTED AT THIS TIME.
--- NOTE | 2019-11-24 05:22 | NUR ---
NURSE NOTES: MORNING CARE WAS DONE, NO BM STATUS AT THIS TIME.
[2019-11-24] MEDS: NovoLOG Insulin Flexpen SUBQ SCH ×3 (05:53→18:30)
--- NOTE | 2019-11-24 06:51 | NUR ---
NURSE NOTES: VSS, NO HYPOTENSION NOTED, WILL CONTINUE PLAN OF CARE.
--- NOTE | 2019-11-24 07:20 | NUR ---
HAND-OFF: Report given to FELY ANDERSON.
--- NOTE | 2019-11-24 07:23 | NUR ---
NURSE NOTES: Received bedside report from FELY Michael. Observed patient in bed, awake, opens eyes spontaneously to verbal stimuli. ETT 7.5 @ 24cm noted on right lip line with shrei settings AC 12, TV 350, FiO2 30%, and PEEP 5. No respiratory distress noted at this time. RT Davina at bedside. 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 Left upper arm PICC line noted, intact dressing noted, patent, asymptomatic, NS infusing at 75ml/hr. GT noted with intact dressing, infusing TF Nepro @ 30mL/hr, HOB elevated. No n/v noted. Multiple intact blisters noted on right lower abdomen, right groin, and left upper arm; all blisters covered with optifoam at this time. Barron catheter noted, intact, draining well to gravity with pale yellow urine output and sediments noted. Bilateral lower extremities noted with SCD. No s/s of pain/discomfort at this time. Dr Crowder present at bedside, notified and made aware regarding Dopamine that was held d/t increasing BP and notified no labs were ordered for this morning. Patient has no s/s of pain/discomfort at this time. Bed locked, alarmed, and in lowest position, padded side rails up x2, and call light left within reach. Will continue plan of care and will continue to monitor patient.
--- NOTE | 2019-11-24 08:00 | NUR ---
NURSE NOTES: Patient remains orally intubated, ETT 7.5 at 24cm on left lip line. Patient is tolerating TF at this time residual <5ml. HOB remains elevated. VSS, patient is afebrile. Will continue to monitor.
[2019-11-24] MEDS: Pantoprazole Inj IVP SCH (08:12)
[2019-11-24] MEDS: levETIRAcetam 500mg/NS100ml 100 ML IVPB SCH ×2 (08:16→20:37)
--- NOTE | 2019-11-24 08:28 | Critical Care Progress Note ---
Assessment/Plan Assessment/Plan Respiratory failure, acute on chronic. Alkalemia due to hyperventilation, chronic metabolic alkalosis, chronic respiratory acidosis, leukocytosis, sepsis, anemia, hyponatremia, hyperkalemia, chronic renal failure, severe protein-calorie malnutrition. hyponatremia, tachypnea PLAN repeat imaging and review care noted and reviewed ID noted and discussed respiratory care reviewed and weaning parameters- poor at this time Ventilatory support - AC and taper off as able discuss wean with nursing and physicians meds noted SNF meds as outlined supportive care suction and monitor imaging off load oxygen therapy and titrate prognosis not improved monitor skin exam tube feeds replace mag and k as needed monitor lytes; renal noted and reviewed hope to avoid trach; monitor parameters medications/laboratory data/nursing notes/ICU care reviewed in detail note reviewed and edited care discussed with RN and RT ICU time spent >40 minutes Critical Care - Subjective Interval Events: care noted in ICU increase RR full vent support events reviewed ROS Limited/Unobtainable: Yes Condition: critical EKG Rhythm: Sinus Rhythm Residuals: minimal Tube Feeding Tolerated: yes I&O: Intake and Output 11/23/19 11/24/19 19:00 07:00 Intake Total 1848.488 ml 1372.864 ml Output Total 1215 ml 840 ml Balance 633.488 ml 532.864 ml IV Total 1528.488 ml 1042.864 ml Tube Feeding 320 ml 330 ml Output Urine Total 1215 ml 840 ml # Bowel Movements 2 Critical Care - Objective ET-Tube: 7.5 ET Position: 24 Last 24 Hour Vital Signs Date Time Temp Pulse Resp B/P (MAP) Pulse Ox O2 Delivery O2 Flow Rate FiO2 11/24/19 08:00 98.7 95 27 134/63 (86) 100 11/24/19 08:00 30 11/24/19 07:18 109 32 30 11/24/19 07:00 96 25 141/68 (92) 100 11/24/19 06:30 97 27 138/62 (87) 100 11/24/19 06:30 99 18 11/24/19 06:00 96 22 140/62 (88) 100 11/24/19 05:30 109 34 160/77 (104) 100 11/24/19 05:00 109 28 165/81 (109) 100 11/24/19 04:30 94 19 154/73 (100) 100 11/24/19 04:30 92 26 30 11/24/19 04:00 30 11/24/19 04:00 Mechanical Ventilator 11/24/19 04:00 98.1 89 16 140/80 (100) 100 11/24/19 03:30 92 21 155/79 (104) 100 11/24/19 03:20 92 22 30 11/24/19 03:15 93 11/24/19 03:00 91 19 150/69 (96) 100 11/24/19 02:30 99 24 157/72 (100) 100 11/24/19 02:30 157/72 11/24/19 02:00 97 29 146/84 (104) 100 11/24/19 02:00 146/84 11/24/19 01:30 95 24 150/85 (106) 100 11/24/19 01:20 96 23 30 11/24/19 01:14 134/95 11/24/19 01:00 90 19 134/95 (108) 100 11/24/19 01:00 134/95 11/24/19 00:30 91 20 125/62 (83) 100 11/24/19 00:00 30 11/24/19 00:00 98.2 88 17 134/63 (86) 100 11/24/19 00:00 134/63 11/24/19 00:00 Mechanical Ventilator 11/24/19 00:00 83 11/23/19 23:30 89 18 122/60 (80) 100 11/23/19 23:00 130/60 11/23/19 23:00 88 17 130/60 (83) 100 11/23/19 22:42 98 21 30 11/23/19 22:30 104 23 154/110 (125) 100 11/23/19 22:00 94 17 140/69 (92) 100 11/23/19 22:00 140/69 11/23/19 21:30 93 14 140/67 (91) 100 11/23/19 21:29 91 17 30 11/23/19 21:00 95 20 136/67 (90) 100 11/23/19 21:00 136/67 11/23/19 20:30 94 18 129/65 (86) 100 11/23/19 20:00 98.2 92 18 128/64 (85) 100 11/23/19 20:00 Mechanical Ventilator 11/23/19 20:00 128/64 11/23/19 20:00 30 11/23/19 19:30 92 16 126/61 (82) 100 11/23/19 19:29 93 11/23/19 19:27 94 23 30 11/23/19 19:00 94 17 130/64 (86) 100 11/23/19 19:00 130/64 11/23/19 18:30 95 18 127/64 (85) 100 11/23/19 18:00 99 24 129/65 (86) 100 11/23/19 18:00 129/65 11/23/19 18:00 94 18 145/88 (107) 98 11/23/19 17:30 94 22 130/66 (87) 100 11/23/19 17:26 94 22 30 11/23/19 17:00 130/66 11/23/19 17:00 100 18 130/66 (87) 100 11/23/19 16:30 95 18 131/63 (85) 100 11/23/19 16:00 98.2 97 20 132/67 (88) 93 11/23/19 16:00 93 11/23/19 16:00 131/63 11/23/19 16:00 30 11/23/19 16:00 Mechanical Ventilator 11/23/19 15:30 98 23 141/79 (99) 98 11/23/19 15:00 94 17 125/63 (83) 100 11/23/19 15:00 125/63 11/23/19 14:46 99 22 30 11/23/19 14:30 97 19 132/72 (92) 100 11/23/19 14:00 97 20 131/70 (90) 100 11/23/19 14:00 131/70 11/23/19 13:30 95 18 136/71 (92) 100 11/23/19 13:25 97 19 30 11/23/19 13:00 136/71 11/23/19 13:00 97 20 131/70 (90) 100 11/23/19 12:30 96 18 131/64 (86) 99 11/23/19 12:00 98.0 99 19 146/70 (95) 100 11/23/19 12:00 98 11/23/19 12:00 131/64 11/23/19 12:00 Mechanical Ventilator 11/23/19 12:00 30 11/23/19 11:30 101 31 169/91 (117) 99 11/23/19 11:17 96 19 30 11/23/19 11:00 169/91 11/23/19 11:00 99 20 129/69 (89) 100 11/23/19 10:30 103 22 137/71 (93) 100 11/23/19 10:00 96 17 122/59 (80) 100 11/23/19 10:00 137/71 11/23/19 09:30 105 26 169/99 (122) 100 11/23/19 09:10 95 19 30 11/23/19 09:00 100 25 169/99 (122) 100 11/23/19 09:00 169/99 11/23/19 08:30 98.4 98 19 140/84 (102) 100 Labs: Labs Test 11/21/19 08:30 11/22/19 03:00 11/23/19 05:50 White Blood Count 11.4 K/UL (4.8-10.8) 11.0 K/UL (4.8-10.8) 10.9 K/UL (4.8-10.8) Red Blood Count 3.38 M/UL (4.20-5.40) 3.34 M/UL (4.20-5.40) 3.17 M/UL (4.20-5.40) Hemoglobin 9.6 G/DL (12.0-16.0) 9.3 G/DL (12.0-16.0) 9.0 G/DL (12.0-16.0) Hematocrit 28.6 % (37.0-47.0) 28.0 % (37.0-47.0) 26.8 % (37.0-47.0) Mean Corpuscular Volume 84 FL (80-99) 84 FL (80-99) 85 FL (80-99) Mean Corpuscular Hemoglobin 28.3 PG (27.0-31.0) 28.0 PG (27.0-31.0) 28.3 PG (27.0-31.0) Mean Corpuscular Hemoglobin Concent 33.5 G/DL (32.0-36.0) 33.4 G/DL (32.0-36.0) 33.4 G/DL (32.0-36.0) Red Cell Distribution Width 13.8 % (11.6-14.8) 14.1 % (11.6-14.8) 14.1 % (11.6-14.8) Platelet Count 201 K/UL (150-450) 234 K/UL (150-450) 237 K/UL (150-450) Mean Platelet Volume 4.7 FL (6.5-10.1) 4.5 FL (6.5-10.1) 4.3 FL (6.5-10.1) Neutrophils (%) (Auto) 75.5 % (45.0-75.0) 75.6 % (45.0-75.0) 79.3 % (45.0-75.0) Lymphocytes (%) (Auto) 10.7 % (20.0-45.0) 13.8 % (20.0-45.0) 11.8 % (20.0-45.0) Monocytes (%) (Auto) 9.7 % (1.0-10.0) 6.8 % (1.0-10.0) 5.0 % (1.0-10.0) Eosinophils (%) (Auto) 3.7 % (0.0-3.0) 3.5 % (0.0-3.0) 3.7 % (0.0-3.0) Basophils (%) (Auto) 0.4 % (0.0-2.0) 0.3 % (0.0-2.0) 0.3 % (0.0-2.0) Sodium Level 140 MMOL/L (136-145) 141 MMOL/L (136-145) 144 MMOL/L (136-145) Potassium Level 2.5 MMOL/L (3.5-5.1) 2.5 MMOL/L (3.5-5.1) 3.2 MMOL/L (3.5-5.1) Chloride Level 101 MMOL/L (98-107) 102 MMOL/L (98-107) 108 MMOL/L (98-107) Carbon Dioxide Level 18 MMOL/L (21-32) 17 MMOL/L (21-32) 19 MMOL/L (21-32) Anion Gap 21 mmol/L (5-15) 22 mmol/L (5-15) 17 mmol/L (5-15) Blood Urea Nitrogen 59 mg/dL (7-18) 48 mg/dL (7-18) 44 mg/dL (7-18) Creatinine 4.4 MG/DL (0.55-1.30) 4.0 MG/DL (0.55-1.30) 3.5 MG/DL (0.55-1.30) Estimat Glomerular Filtration Rate 11.6 mL/min (>60) 13.1 mL/min (>60) 15.2 mL/min (>60) Glucose Level 219 MG/DL (74-106) 175 MG/DL (74-106) 230 MG/DL (74-106) Calcium Level 6.7 MG/DL (8.5-10.1) 6.9 MG/DL (8.5-10.1) 7.4 MG/DL (8.5-10.1) Total Bilirubin 0.3 MG/DL (0.2-1.0) 0.2 MG/DL (0.2-1.0) Aspartate Amino Transf (AST/SGOT) 17 U/L (15-37) 14 U/L (15-37) Alanine Aminotransferase (ALT/SGPT) 11 U/L (12-78) 7 U/L (12-78) Alkaline Phosphatase 94 U/L (46-116) 97 U/L (46-116) Total Protein 6.1 G/DL (6.4-8.2) 6.2 G/DL (6.4-8.2) Albumin 1.6 G/DL (3.4-5.0) 1.6 G/DL (3.4-5.0) Globulin 4.5 g/dL 4.6 g/dL Albumin/Globulin Ratio 0.4 (1.0-2.7) 0.3 (1.0-2.7) Cortisol AM Sample 16.1 UG/DL Magnesium Level 1.6 MG/DL (1.8-2.4) Thyroid Stimulating Hormone (TSH) 5.538 uiU/mL (0.358-3.740) Objective: WDWN ETT in place reduced LOC as prior reduced breath sounds bilaterally without rhonchi or wheeze [id number] without MRG NABS nontender no HSM; no distention feeding tube in place no CC some edema overall same skin noted nonfocal with reduced ROM reviewed and edited Accucheck: 152 Torey Douglass MD Nov 24, 2019 08:28
--- NOTE | 2019-11-24 09:12 | NUR ---
HAND-OFF: Report given to FELY Rice. Endorsed plan of care.
--- NOTE | 2019-11-24 09:15 | NUR ---
NURSE NOTES: Received change of shift report from Thea GEIGER. Pt opens eyes to touch, does not follow command. Pt is orally intubated, ETT 7.5 at 24cm left lipline, with vent settings AC12, VT350, Peep 5, FIO2 30% at 100%O2Sat with diminished lung sounds. NSR on environmental monitoring specialist, with weak peripheral pulses. Central line is present on left UA PICC with NS infusing at 75ml/hour. Pt has GT with feeding Nepro at 30 ml/goal with less than 5ml/residual. Abdomen is large, round, soft, nontender to touch with hypoactive bowel sounds. Barron catheter is present draining cloudy/light yellow urine. Skin has closed and open blisters on left lower abdomen/groin area and left upper arm area; sacral/buttocks stage 2, and left heel DTI, all covered with optifoam dressings. Pt is on air mattress, with SCDs on bilateral lower extremities for DVT prophylaxis. HOB at 30 degrees, bed locked, in lowest position, three side rails up and call light is placed within easy reach. Will continue to monitor pt and follow plan of care.
--- NOTE | 2019-11-24 09:25 | NUR ---
Attempted weaning. Pt on CPAP PS +10 PEEP +5, FiO2 30%. RSBI 85, VT 336. Will continue to monitor. RN aware
--- NOTE | 2019-11-24 09:28 | General Progress Note ---
Assessment/Plan Status: stable Assessment/Plan: Assessment/Plan Status: stable Assessment/Plan: Assessment - h/o gastroparesis and GT feed intolerance - GJ tube dislodged and replaced with G tube - Resp failure, intubated - OBS - Sepeis, shock - CRF - Poor Px Recommendations - continue TF - would hold if extubated - abx / supportive care - elevate HOB - can re-address G to J conversion once stabilized -back on dopamine drip Subjective ROS Limited/Unobtainable: No Allergies: Coded Allergies: No Known Allergies (Verified , 12/31/09) Objective Last 24 Hour Vital Signs Date Time Temp Pulse Resp B/P (MAP) Pulse Ox O2 Delivery O2 Flow Rate FiO2 11/24/19 09:00 95 25 140/69 (92) 100 11/24/19 08:00 98.7 95 27 134/63 (86) 100 11/24/19 08:00 Mechanical Ventilator 11/24/19 08:00 30 11/24/19 07:31 98 11/24/19 07:18 109 32 30 11/24/19 07:00 96 25 141/68 (92) 100 11/24/19 06:30 97 27 138/62 (87) 100 11/24/19 06:30 99 18 11/24/19 06:00 96 22 140/62 (88) 100 11/24/19 05:30 109 34 160/77 (104) 100 11/24/19 05:00 109 28 165/81 (109) 100 11/24/19 04:30 94 19 154/73 (100) 100 11/24/19 04:30 92 26 30 11/24/19 04:00 30 11/24/19 04:00 Mechanical Ventilator 11/24/19 04:00 98.1 89 16 140/80 (100) 100 11/24/19 03:30 92 21 155/79 (104) 100 11/24/19 03:20 92 22 30 11/24/19 03:15 93 11/24/19 03:00 91 19 150/69 (96) 100 11/24/19 02:30 99 24 157/72 (100) 100 11/24/19 02:30 157/72 11/24/19 02:00 97 29 146/84 (104) 100 11/24/19 02:00 146/84 11/24/19 01:30 95 24 150/85 (106) 100 11/24/19 01:20 96 23 30 11/24/19 01:14 134/95 11/24/19 01:00 90 19 134/95 (108) 100 11/24/19 01:00 134/95 11/24/19 00:30 91 20 125/62 (83) 100 11/24/19 00:00 30 11/24/19 00:00 98.2 88 17 134/63 (86) 100 11/24/19 00:00 134/63 11/24/19 00:00 Mechanical Ventilator 11/24/19 00:00 83 11/23/19 23:30 89 18 122/60 (80) 100 11/23/19 23:00 130/60 11/23/19 23:00 88 17 130/60 (83) 100 11/23/19 22:42 98 21 30 11/23/19 22:30 104 23 154/110 (125) 100 11/23/19 22:00 94 17 140/69 (92) 100 11/23/19 22:00 140/69 11/23/19 21:30 93 14 140/67 (91) 100 11/23/19 21:29 91 17 30 11/23/19 21:00 95 20 136/67 (90) 100 11/23/19 21:00 136/67 11/23/19 20:30 94 18 129/65 (86) 100 11/23/19 20:00 98.2 92 18 128/64 (85) 100 11/23/19 20:00 Mechanical Ventilator 11/23/19 20:00 128/64 11/23/19 20:00 30 11/23/19 19:30 92 16 126/61 (82) 100 11/23/19 19:29 93 11/23/19 19:27 94 23 30 11/23/19 19:00 94 17 130/64 (86) 100 11/23/19 19:00 130/64 11/23/19 18:30 95 18 127/64 (85) 100 11/23/19 18:00 99 24 129/65 (86) 100 11/23/19 18:00 129/65 11/23/19 18:00 94 18 145/88 (107) 98 11/23/19 17:30 94 22 130/66 (87) 100 11/23/19 17:26 94 22 30 11/23/19 17:00 130/66 11/23/19 17:00 100 18 130/66 (87) 100 11/23/19 16:30 95 18 131/63 (85) 100 11/23/19 16:00 98.2 97 20 132/67 (88) 93 11/23/19 16:00 93 11/23/19 16:00 131/63 11/23/19 16:00 30 11/23/19 16:00 Mechanical Ventilator 11/23/19 15:30 98 23 141/79 (99) 98 11/23/19 15:00 94 17 125/63 (83) 100 11/23/19 15:00 125/63 11/23/19 14:46 99 22 30 11/23/19 14:30 97 19 132/72 (92) 100 11/23/19 14:00 97 20 131/70 (90) 100 11/23/19 14:00 131/70 11/23/19 13:30 95 18 136/71 (92) 100 11/23/19 13:25 97 19 30 11/23/19 13:00 136/71 11/23/19 13:00 97 20 131/70 (90) 100 11/23/19 12:30 96 18 131/64 (86) 99 11/23/19 12:00 98.0 99 19 146/70 (95) 100 11/23/19 12:00 98 11/23/19 12:00 131/64 11/23/19 12:00 Mechanical Ventilator 11/23/19 12:00 30 11/23/19 11:30 101 31 169/91 (117) 99 11/23/19 11:17 96 19 30 11/23/19 11:00 169/91 11/23/19 11:00 99 20 129/69 (89) 100 11/23/19 10:30 103 22 137/71 (93) 100 11/23/19 10:00 96 17 122/59 (80) 100 11/23/19 10:00 137/71 11/23/19 09:30 105 26 169/99 (122) 100 Intake and Output 11/23/19 11/24/19 19:00 07:00 Intake Total 1848.488 ml 1372.864 ml Output Total 1215 ml 840 ml Balance 633.488 ml 532.864 ml IV Total 1528.488 ml 1042.864 ml Tube Feeding 320 ml 330 ml Output Urine Total 1215 ml 840 ml # Bowel Movements 2 Height (Feet): 5 Height (Inches): 3.00 Weight (Pounds): 168 General Appearance: lethargic EENT: PERRL/EOMI Neck: supple Cardiovascular: tachycardia Respiratory/Chest: decreased breath sounds Abdomen: normal bowel sounds, non tender, soft Extremities: non-tender Eder Sims MD Nov 24, 2019 09:28
--- NOTE | 2019-11-24 10:43 | Surgery Progress Note ---
Surgery Progress Note Subjective Additional Comments was back on dopamine but now off again as bp improved on vent. difficult to wean tolerating tube feeds comfortable appearing Objective Last 24 Hour Vital Signs Date Time Temp Pulse Resp B/P (MAP) Pulse Ox O2 Delivery O2 Flow Rate FiO2 11/24/19 09:00 95 25 140/69 (92) 100 11/24/19 08:00 98.7 95 27 134/63 (86) 100 11/24/19 08:00 Mechanical Ventilator 11/24/19 08:00 30 11/24/19 07:31 98 11/24/19 07:18 109 32 30 11/24/19 07:00 96 25 141/68 (92) 100 11/24/19 06:30 97 27 138/62 (87) 100 11/24/19 06:30 99 18 11/24/19 06:00 96 22 140/62 (88) 100 11/24/19 05:30 109 34 160/77 (104) 100 11/24/19 05:00 109 28 165/81 (109) 100 11/24/19 04:30 94 19 154/73 (100) 100 11/24/19 04:30 92 26 30 11/24/19 04:00 30 11/24/19 04:00 Mechanical Ventilator 11/24/19 04:00 98.1 89 16 140/80 (100) 100 11/24/19 03:30 92 21 155/79 (104) 100 11/24/19 03:20 92 22 30 11/24/19 03:15 93 11/24/19 03:00 91 19 150/69 (96) 100 11/24/19 02:30 99 24 157/72 (100) 100 11/24/19 02:30 157/72 11/24/19 02:00 97 29 146/84 (104) 100 11/24/19 02:00 146/84 11/24/19 01:30 95 24 150/85 (106) 100 11/24/19 01:20 96 23 30 11/24/19 01:14 134/95 11/24/19 01:00 90 19 134/95 (108) 100 11/24/19 01:00 134/95 11/24/19 00:30 91 20 125/62 (83) 100 11/24/19 00:00 30 3/19/20 00:00 98.2 88 17 134/63 (86) 100 11/24/19 00:00 134/63 11/24/19 00:00 Mechanical Ventilator 11/24/19 00:00 83 11/23/19 23:30 89 18 122/60 (80) 100 11/23/19 23:00 130/60 11/23/19 23:00 88 17 130/60 (83) 100 11/23/19 22:42 98 21 30 11/23/19 22:30 104 23 154/110 (125) 100 11/23/19 22:00 94 17 140/69 (92) 100 11/23/19 22:00 140/69 11/23/19 21:30 93 14 140/67 (91) 100 11/23/19 21:29 91 17 30 11/23/19 21:00 95 20 136/67 (90) 100 11/23/19 21:00 136/67 11/23/19 20:30 94 18 129/65 (86) 100 11/23/19 20:00 98.2 92 18 128/64 (85) 100 11/23/19 20:00 Mechanical Ventilator 11/23/19 20:00 128/64 11/23/19 20:00 30 11/23/19 19:30 92 16 126/61 (82) 100 11/23/19 19:29 93 11/23/19 19:27 94 23 30 11/23/19 19:00 94 17 130/64 (86) 100 11/23/19 19:00 130/64 11/23/19 18:30 95 18 127/64 (85) 100 11/23/19 18:00 99 24 129/65 (86) 100 20 18:00 129/65 11/23/19 18:00 94 18 145/88 (107) 98 11/23/19 17:30 94 22 130/66 (87) 100 11/23/19 17:26 94 22 30 11/23/19 17:00 130/66 11/23/19 17:00 100 18 130/66 (87) 100 11/23/19 16:30 95 18 131/63 (85) 100 11/23/19 16:00 98.2 97 20 132/67 (88) 93 11/23/19 16:00 93 11/23/19 16:00 131/63 11/23/19 16:00 30 11/23/19 16:00 Mechanical Ventilator 11/23/19 15:30 98 23 141/79 (99) 98 11/23/19 15:00 94 17 125/63 (83) 100 11/23/19 15:00 125/63 11/23/19 14:46 99 22 30 11/23/19 14:30 97 19 132/72 (92) 100 11/23/19 14:00 97 20 131/70 (90) 100 11/23/19 14:00 131/70 11/23/19 13:30 95 18 136/71 (92) 100 11/23/19 13:25 97 19 30 11/23/19 13:00 136/71 11/23/19 13:00 97 20 131/70 (90) 100 11/23/19 12:30 96 18 131/64 (86) 99 11/23/19 12:00 98.0 99 19 146/70 (95) 100 11/23/19 12:00 98 11/23/19 12:00 131/64 11/23/19 12:00 Mechanical Ventilator 11/23/19 12:00 30 11/23/19 11:30 101 31 169/91 (117) 99 11/23/19 11:17 96 19 30 11/23/19 11:00 169/91 11/23/19 11:00 99 20 129/69 (89) 100 I&O Intake and Output 11/23/19 11/24/19 19:00 07:00 Intake Total 1848.488 ml 1372.864 ml Output Total 1215 ml 840 ml Balance 633.488 ml 532.864 ml IV Total 1528.488 ml 1042.864 ml Tube Feeding 320 ml 330 ml Output Urine Total 1215 ml 840 ml # Bowel Movements 2 Dressing: other Wound: other Drains: other Cardiovascular: RSR Respiratory: decreased breath sounds Abdomen: soft, non-tender, present bowel sounds, non-distended Extremities: no tenderness, no cyanosis, other Plan Problems: (1) Decubitus skin ulcer Assessment & Plan: Pt presented on admission with multiple pressure injuries. DTPI sacrum . Base of injury is indurated,purple with areas that are maroon in colour. An area of fluctuance noted at sacrococcygeal area. Borders are irregular (L)8.5cm x (W)9.3cm.Historical scar also noted within base of Sacral pressure injury. DTPI medial L heel. Base of injury fluctuant,maroon with surrounding non- blanching erythema. (L)1.7cm x (W)1.6cm. DTPI medial R heel. Base of injury is maroon and fluctuant(L)3.1cm x (W)2.5cm. Tx.Plan: Apply Moisture Barrier Paste to Sacrum. Cover with Optifoam drsg. Change every 3 days and prn. Apply Cavilon Skin Barrier to both heels. Cover each heel with Optifoam drsg. Change every 7 days and prn. APM/VALERIE Mattress. Reposition at least every 2 hours or as tolerated. Off-load heels with pillow. Patient is at high risk for deterioration of wounds opening of DTI and formation of worsening decubitus will need close monitoring and significant amount of care to ensure improvement. Nutritional optimization. Will follow with recommendations thank you (2) Failure to thrive in adult Assessment & Plan: Not tolerating tube feeds regurgitation high residuals DAILY ESTIMATED NEEDS: Needs based on Critical care, sepsis, wound, ARF/ 57.7kg abw 22-30 kcals/kg 1274-0756 total kcals 0.8-1.3 (increase w/ renal fxn improvement) g protein/kg 46-75 g total protein 25-30 mL/kg 4731-3045 total fluid mLs NUTRITION DIAGNOSIS: 1) Swallowing difficulty r/t dysphagia as evidenced by pt is Jtube dep, currently orally intubated, NPO. 2) Altered nutrition related lab values r/t respiratory failure, DM, ARF, sepsis as evidenced by COW >45*, elev pH 7.616*, elev K (7.2*), elev creat (8.8), elev BUN (178), elev BG (228), elev LA, elev wbc (22.2*) CURRENT TF:NPO ENTERAL NUTRITION RECOMMENDATIONS: Nepro @ 40ml/hr x 22 hrs to provide 880ml, 1584kcal, 71g prot, 640ml free water * Rec Nepro at this time given ARF, +hyperkalemia w/ creat 8.8. * When medically appropriate, initiate Nepro @ 20ml/hr x 6 hrs, advance 10ml q 4 -6 hrs as tolerated to goal rate * Hold 1 hr before and after Synthroid med * HOB over 30 degrees/ water flush per MD ---- W/ improved renal fxn and normalized lytes, rec Glucerna 1.2 @ 60ml/hr x 22 hrs to provide 1320ml, 1584 kcal, 79g pro, 1063ml free H2O ADDITIONAL RECOMMENDATIONS: 1) Monitor lytes and renal fxn closely -> admitted w/ creat > 8.0, creat previous adm < 2.0 -> K critically elev, s/p kayexalate. 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 (3) Acute respiratory failure Assessment & Plan: As per pulmonology available if trach needs dnr/dni family considering care plan not interested in trach at this time Jared Mcarthur Nov 24, 2019 10:43
--- NOTE | 2019-11-24 10:53 | General Progress Note ---
Assessment/Plan Problem List: (1) Shock ICD Codes: R57.9 - Shock, unspecified SNOMED: 96456215 (2) Anemia due to acute blood loss ICD Codes: D62 - Acute posthemorrhagic anemia SNOMED: 812685742 (3) Hyperkalemia ICD Codes: E87.5 - Hyperkalemia SNOMED: 18937126 (4) Recurrent seizures ICD Codes: G40.909 - Epilepsy, unspecified, not intractable, without status epilepticus SNOMED: 72558676, 29295563 (5) Aspiration pneumonia ICD Codes: J69.0 - Pneumonitis due to inhalation of food and vomit SNOMED: 858734204 (6) ARF (acute renal failure) ICD Codes: N17.9 - Acute kidney failure, unspecified SNOMED: 71233225 (7) ATN (acute tubular necrosis) ICD Codes: N17.0 - Acute kidney failure with tubular necrosis SNOMED: 56774820 Status: stable Assessment/Plan: cont vent support resp care suctioning as needed iv abx pressors at renal dose ivf monitor renal fxn monitor labs and cbc transfuse as needed critical and guarded grim prognosis family considering withdrawl of care Subjective ROS Limited/Unobtainable: No Constitutional: Reports: malaise, weakness HEENT: Reports: no symptoms Cardiovascular: Reports: no symptoms Respiratory: Reports: shortness of breath, sputum Gastrointestinal/Abdominal: Reports: difficulty swallowing Genitourinary: Reports: no symptoms Neurologic/Psychiatric: Reports: pre-existing deficit, seizure Endocrine: Reports: no symptoms Hematologic/Lymphatic: Reports: no symptoms Allergies: Coded Allergies: No Known Allergies (Verified , 12/31/09) All Systems: reviewed and negative except above Subjective bp improved. off dopamine due to high bp. good uop. no fevers. GT replaced. renal fxn improving. family declined HD. renal fxn and urine output improving. Objective Last 24 Hour Vital Signs Date Time Temp Pulse Resp B/P (MAP) Pulse Ox O2 Delivery O2 Flow Rate FiO2 11/24/19 09:00 95 25 140/69 (92) 100 11/24/19 08:00 98.7 95 27 134/63 (86) 100 11/24/19 08:00 Mechanical Ventilator 11/24/19 08:00 30 11/24/19 07:31 98 3/19/20 07:18 109 32 30 11/24/19 07:00 96 25 141/68 (92) 100 11/24/19 06:30 97 27 138/62 (87) 100 11/24/19 06:30 99 18 11/24/19 06:00 96 22 140/62 (88) 100 11/24/19 05:30 109 34 160/77 (104) 100 11/24/19 05:00 109 28 165/81 (109) 100 11/24/19 04:30 94 19 154/73 (100) 100 11/24/19 04:30 92 26 30 11/24/19 04:00 30 11/24/19 04:00 Mechanical Ventilator 11/24/19 04:00 98.1 89 16 140/80 (100) 100 11/24/19 03:30 92 21 155/79 (104) 100 11/24/19 03:20 92 22 30 11/24/19 03:15 93 11/24/19 03:00 91 19 150/69 (96) 100 11/24/19 02:30 99 24 157/72 (100) 100 11/24/19 02:30 157/72 11/24/19 02:00 97 29 146/84 (104) 100 11/24/19 02:00 146/84 11/24/19 01:30 95 24 150/85 (106) 100 11/24/19 01:20 96 23 30 11/24/19 01:14 134/95 11/24/19 01:00 90 19 134/95 (108) 100 11/24/19 01:00 134/95 11/24/19 00:30 91 20 125/62 (83) 100 11/24/19 00:00 30 11/24/19 00:00 98.2 88 17 134/63 (86) 100 11/24/19 00:00 134/63 11/24/19 00:00 Mechanical Ventilator 11/24/19 00:00 83 11/23/19 23:30 89 18 122/60 (80) 100 11/23/19 23:00 130/60 11/23/19 23:00 88 17 130/60 (83) 100 11/23/19 22:42 98 21 30 11/23/19 22:30 104 23 154/110 (125) 100 11/23/19 22:00 94 17 140/69 (92) 100 20 22:00 140/69 20 21:30 93 14 140/67 (91) 100 11/23/19 21:29 91 17 30 11/23/19 21:00 95 20 136/67 (90) 100 20 21:00 136/67 11/23/19 20:30 94 18 129/65 (86) 100 11/23/19 20:00 98.2 92 18 128/64 (85) 100 11/23/19 20:00 Mechanical Ventilator 11/23/19 20:00 128/64 11/23/19 20:00 30 11/23/19 19:30 92 16 126/61 (82) 100 11/23/19 19:29 93 11/23/19 19:27 94 23 30 11/23/19 19:00 94 17 130/64 (86) 100 11/23/19 19:00 130/64 11/23/19 18:30 95 18 127/64 (85) 100 11/23/19 18:00 99 24 129/65 (86) 100 11/23/19 18:00 129/65 11/23/19 18:00 94 18 145/88 (107) 98 11/23/19 17:30 94 22 130/66 (87) 100 11/23/19 17:26 94 22 30 11/23/19 17:00 130/66 11/23/19 17:00 100 18 130/66 (87) 100 11/23/19 16:30 95 18 131/63 (85) 100 11/23/19 16:00 98.2 97 20 132/67 (88) 93 20 16:00 93 20 16:00 131/63 11/23/19 16:00 30 11/23/19 16:00 Mechanical Ventilator 11/23/19 15:30 98 23 141/79 (99) 98 11/23/19 15:00 94 17 125/63 (83) 100 11/23/19 15:00 125/63 11/23/19 14:46 99 22 30 11/23/19 14:30 97 19 132/72 (92) 100 11/23/19 14:00 97 20 131/70 (90) 100 11/23/19 14:00 131/70 11/23/19 13:30 95 18 136/71 (92) 100 11/23/19 13:25 97 19 30 11/23/19 13:00 136/71 11/23/19 13:00 97 20 131/70 (90) 100 11/23/19 12:30 96 18 131/64 (86) 99 11/23/19 12:00 98.0 99 19 146/70 (95) 100 11/23/19 12:00 98 11/23/19 12:00 131/64 11/23/19 12:00 Mechanical Ventilator 11/23/19 12:00 30 11/23/19 11:30 101 31 169/91 (117) 99 11/23/19 11:17 96 19 30 11/23/19 11:00 169/91 11/23/19 11:00 99 20 129/69 (89) 100 Intake and Output 11/23/19 11/24/19 19:00 07:00 Intake Total 1848.488 ml 1372.864 ml Output Total 1215 ml 840 ml Balance 633.488 ml 532.864 ml IV Total 1528.488 ml 1042.864 ml Tube Feeding 320 ml 330 ml Output Urine Total 1215 ml 840 ml # Bowel Movements 2 Height (Feet): 5 Height (Inches): 3.00 Weight (Pounds): 168 Objective General Appearance: WD/WN, lethargic Neck: normal alignment, supple, normal inspection Cardiovascular: normal rate, regular rhythm Respiratory/Chest: no respiratory distress, no accessory muscle use, rhonchi - bilaterally Abdomen: normal bowel sounds, non tender, soft, no organomegaly, no mass Extremities: normal range of motion, non-tender Neurologic: unresponsive, aphasia Jeffrey Crowder MD Nov 24, 2019 10:53
--- NOTE | 2019-11-24 11:15 | NUR ---
RESPIRATORY NOTE: ABG drawn. No new orders. Pt placed back on AC mode. Will continue to monitor.
--- NOTE | 2019-11-24 12:00 | NUR ---
NURSE NOTES: Pt was weaned from 0925 to 1115 on CPAP at PS of 10, with 98-100% O2Sat. ABGs were drawn and vent switched back to previous AC vent settings. VS remain stable. Pt is afebrile. Pt was cleaned and repositioned. Oral care was done. Pt was seen by Dr Richter for ID consult follow up, and was notified of noted blisters. dc'd IV antibiotics. No new orders were received.
--- NOTE | 2019-11-24 12:25 | Infectious Diseases Prog Note ---
Assessment/Plan Assessment/Plan A 1. Staph aureus & E. coli pneumonia treated 2. Acute renal failure 3. diabetes mellitus 4. CHF 5. CVA 6.Acute respiratory failure 7. 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 Discontinue ceftriaxone 2. will follow up cultures Subjective ROS Limited/Unobtainable: Yes Respiratory: Reports: other - on weaing process Skin: Reports: other - developed blisters in R groain, left arm Allergies: Coded Allergies: No Known Allergies (Verified , 12/31/09) Objective Vital Signs Last 24 Hour Vital Signs Date Time Temp Pulse Resp B/P (MAP) Pulse Ox O2 Delivery O2 Flow Rate FiO2 11/24/19 12:00 30 11/24/19 12:00 Mechanical Ventilator 11/24/19 11:20 102 11/24/19 11:00 95 21 143/64 (90) 100 11/24/19 10:00 100 23 150/70 (96) 100 11/24/19 09:00 95 25 140/69 (92) 100 11/24/19 08:00 98.7 95 27 134/63 (86) 100 11/24/19 08:00 Mechanical Ventilator 11/24/19 08:00 30 11/24/19 07:31 98 11/24/19 07:18 109 32 30 11/24/19 07:00 96 25 141/68 (92) 100 11/24/19 06:30 97 27 138/62 (87) 100 11/24/19 06:30 99 18 11/24/19 06:00 96 22 140/62 (88) 100 11/24/19 05:30 109 34 160/77 (104) 100 11/24/19 05:00 109 28 165/81 (109) 100 11/24/19 04:30 94 19 154/73 (100) 100 11/24/19 04:30 92 26 30 11/24/19 04:00 30 11/24/19 04:00 Mechanical Ventilator 11/24/19 04:00 98.1 89 16 140/80 (100) 100 11/24/19 03:30 92 21 155/79 (104) 100 11/24/19 03:20 92 22 30 11/24/19 03:15 93 11/24/19 03:00 91 19 150/69 (96) 100 11/24/19 02:30 99 24 157/72 (100) 100 11/24/19 02:30 157/72 11/24/19 02:00 97 29 146/84 (104) 100 11/24/19 02:00 146/84 11/24/19 01:30 95 24 150/85 (106) 100 11/24/19 01:20 96 23 30 11/24/19 01:14 134/95 11/24/19 01:00 90 19 134/95 (108) 100 11/24/19 01:00 134/95 11/24/19 00:30 91 20 125/62 (83) 100 11/24/19 00:00 30 11/24/19 00:00 98.2 88 17 134/63 (86) 100 11/24/19 00:00 134/63 11/24/19 00:00 Mechanical Ventilator 11/24/19 00:00 83 11/23/19 23:30 89 18 122/60 (80) 100 11/23/19 23:00 130/60 11/23/19 23:00 88 17 130/60 (83) 100 11/23/19 22:42 98 21 30 11/23/19 22:30 104 23 154/110 (125) 100 11/23/19 22:00 94 17 140/69 (92) 100 11/23/19 22:00 140/69 11/23/19 21:30 93 14 140/67 (91) 100 11/23/19 21:29 91 17 30 11/23/19 21:00 95 20 136/67 (90) 100 11/23/19 21:00 136/67 11/23/19 20:30 94 18 129/65 (86) 100 11/23/19 20:00 98.2 92 18 128/64 (85) 100 11/23/19 20:00 Mechanical Ventilator 11/23/19 20:00 128/64 18 20:00 30 11/23/19 19:30 92 16 126/61 (82) 100 11/23/19 19:29 93 11/23/19 19:27 94 23 30 11/23/19 19:00 94 17 130/64 (86) 100 11/23/19 19:00 130/64 11/23/19 18:30 95 18 127/64 (85) 100 11/23/19 18:00 99 24 129/65 (86) 100 11/23/19 18:00 129/65 11/23/19 18:00 94 18 145/88 (107) 98 11/23/19 17:30 94 22 130/66 (87) 100 11/23/19 17:26 94 22 30 11/23/19 17:00 130/66 11/23/19 17:00 100 18 130/66 (87) 100 11/23/19 16:30 95 18 131/63 (85) 100 11/23/19 16:00 98.2 97 20 132/67 (88) 93 11/23/19 16:00 93 11/23/19 16:00 131/63 11/23/19 16:00 30 11/23/19 16:00 Mechanical Ventilator 11/23/19 15:30 98 23 141/79 (99) 98 11/23/19 15:00 94 17 125/63 (83) 100 11/23/19 15:00 125/63 11/23/19 14:46 99 22 30 11/23/19 14:30 97 19 132/72 (92) 100 11/23/19 14:00 97 20 131/70 (90) 100 11/23/19 14:00 131/70 11/23/19 13:30 95 18 136/71 (92) 100 11/23/19 13:25 97 19 30 11/23/19 13:00 136/71 11/23/19 13:00 97 20 131/70 (90) 100 11/23/19 12:30 96 18 131/64 (86) 99 Height (Feet): 5 Height (Inches): 3.00 Weight (Pounds): 168 HEENT: mucous membranes moist Respiratory/Chest: lungs clear, other - orally intubated Cardiovascular: tachycardia, other - PICC line Abdomen: soft, non tender Extremities: other - edema more in arms Neurologic/Psychiatric: other - opens eyes Laboratory Tests Test 11/24/19 10:52 Arterial Blood pH 7.399 (7.350-7.450) Arterial Blood Partial Pressure CO2 33.2 mmHg (35.0-45.0) L Arterial Blood Partial Pressure O2 119.6 mmHg (75.0-100.0) H Arterial Blood HCO3 20.1 mmol/L (22.0-26.0) L Arterial Blood Oxygen Saturation 98.2 % (95-100) Arterial Blood Base Excess -4.2 (-2-2) L Danilo Test Positive Current Medications Medications (Trade) Dose Ordered Sig/Aaron Route PRN Reason Start Time Stop Time Status Last Admin Dose Admin Acetaminophen (Tylenol) 650 mg Q4H PRN GT Mild Pain/Temp > 100.5 11/17/19 07:30 12/17/19 07:29 11/18/19 20:33 Ceftriaxone Sodium 1 gm/ Dextrose 55 ml @ 110 mls/hr Q24H IVPB 11/18/19 17:00 11/25/19 16:59 11/23/19 17:26 Chlorhexidine Gluconate (Arabella-Hex 2%) 1 applic DAILY@2000 TOPIC 11/15/19 20:00 12/15/19 19:59 11/23/19 20:04 Dextrose (Dextrose 50%) 25 ml Q30M PRN IV Hypoglycemia 11/14/19 19:00 12/14/19 18:59 Dextrose (Dextrose 50%) 50 ml Q30M PRN IV Hypoglycemia 11/14/19 19:00 12/14/19 18:59 Dopamine HCl/ Dextrose 250 ml @ 6.124 mls/ hr Q24H IV 11/21/19 01:15 12/15/19 01:14 11/24/19 01:14 Insulin Aspart (NovoLOG) Q6HR SUBQ 11/15/19 00:00 12/14/19 20:59 11/24/19 05:53 Levetiracetam 100 ml @ 400 mls/hr Q12HR IVPB 11/14/19 15:00 12/14/19 14:59 11/24/19 08:16 Lorazepam (Ativan 2mg/ml 1ml) 1 mg Q4H PRN IV For Anxiety 11/17/19 18:45 11/24/19 18:44 11/19/19 19:57 Lorazepam (Ativan 2mg/ml 1ml) 2 mg Q1H PRN IV For Seizures 11/20/19 14:00 11/27/19 13:59 Pantoprazole (Protonix) 40 mg DAILY IVP 11/14/19 14:15 12/14/19 14:14 11/24/19 08:12 Sodium Chloride 1,000 ml @ 75 mls/hr [id number] IV 11/18/19 17:15 12/18/19 17:14 11/24/19 05:54 Bay Richter MD Nov 24, 2019 12:25
--- NOTE | 2019-11-24 12:25 | NUR ---
CASE MANAGEMENT:REVIEW SI;RESPIRATORY FAILURE ~ ORALLY INTUBATED SHOCK ACUTE RENAL FAILURE. ASPIRATION PNA. 98.7 109 32 160/77 100% MECH VENT AC 12 TV 350 PEEP 5 FIO2@ 30% ABG ~ pH 33.2 pO2 119.6 HCO3 20.1 BASE EXCESS -4.2 IS;IVF NS @ 75 ML/HR ROCEPHIN IV Q24 HRS INSULIN NOVOLOG SUBQ Q6 HRS PROTONIX IV QD DOPAMINE GTT ICU STATUS DCP;FROM [facility]
--- NOTE | 2019-11-24 13:13 | NUR ---
*-* INSURANCE *-* ALL CLINICALS AND REVIEWS HAVE BEEN FAXED TO: [employer] #[phone] fax# [phone]
--- NOTE | 2019-11-24 14:00 | NUR ---
NURSE NOTES: Pt was repositioned. VS remain stable. No signs/symptoms of any distress noted.
--- NOTE | 2019-11-24 16:30 | NUR ---
NURSE NOTES: Pt had BM x1, pasty/brown stool. Pt was cleaned, gown/bed linens were changed. Oral care was done. Pt was repositioned. VS remain stable.
--- NOTE | 2019-11-24 18:30 | NUR ---
NURSE NOTES: Pt was cleaned and repositioned. Oral care was done. VS remain stable. No signs/symptoms of distress noted.
--- NOTE | 2019-11-24 19:20 | NUR ---
HAND-OFF: Report given to Charlene GEIGER. Endorsed plan of care. VS remain stable.
--- NOTE | 2019-11-24 19:30 | NUR ---
NURSE NOTES: Received pt obtunded, orally intubated on ac mode, , SR on the monitor, BP stable afebrile,Pt on daily weaning, Pt tolerating Nepro at 30cc/hr, no residuals, HOB kept elevated, on aspiration precaution. Barron to gravity with moderate amt of cloudy yellow urine approximately 30-40ml/hr. NS at 75ml infusing well per TAMIKO PICC line. mOnitor I and O. Monitor lytes. Pt albarado sacral stage2, left heel DTI And Blisters Rt lower abdominal site and thigh. All are covered with optifoam drsg , dry and intact. On [id number]. Turned q 2hrs with good skin care done. Will continue to monitor.
[2019-11-24] MEDS: Dyna-Hex 2% Top Sol 2oz TOPIC SCH (19:56)
--- NOTE | 2019-11-24 21:00 | NUR ---
NURSE NOTES: Suctioned tk whitish blood tinged secretions.Oral care done. HOB kept elevated. Watch for any resp, distress.
--- NOTE | 2019-11-24 23:00 | NUR ---
NURSE NOTES: Pt had lg soft brownish stools. cleaned up pt.
[2019-11-25] VITALS (24 sets, daily range): BP systolic 111–164; BP diastolic 51–92
[2019-11-25] MEDS: NovoLOG Insulin Flexpen SUBQ SCH ×4 (00:19→18:10)
--- NOTE | 2019-11-25 01:00 | NUR ---
NURSE NOTES: Turned q 2hrs prn with good skin care done.
[2019-11-25] MEDS: DOPamine 400mg/250ml 250 ML IV SCH (01:15)
--- NOTE | 2019-11-25 02:45 | Progress Note ---
DATE: 11/24/2019 CARDIOLOGY PROGRESS NOTE SUBJECTIVE: The patient is off dopamine. Urine output is adequate. Blood pressure parameters stable. G-tube was replaced with nutrition ongoing. OBJECTIVE: VITAL SIGNS: Blood pressure 140/69, pulse 96, and respirations 25. Afebrile. Monitored rhythm, sinus with atrial ectopy. LUNGS: Bilateral breath sounds. Scattered rhonchi. CARDIAC: Regular rhythm and rate. Normal S1, S2 with a fourth heart sound. ABDOMEN: Soft. EXTREMITIES: Trace edema. LABORATORY DATA: White count 10.9 and hemoglobin 9 yesterday. ABG, pH 7.40, pCO2 33, and pO2 120. IMPRESSION: 1. Respiratory failure. 2. Sepsis. 3. Hypokalemia. 4. Hypomagnesemia. 5. Severe protein-calorie malnutrition. 6. Chronic diastolic congestive heart failure. 7. Hypertensive heart disease. 8. Acute renal failure recovering. PLAN: 1. Nutrition by G-tube. 2. Weaning efforts. 3. Recheck laboratory studies. 4. Adjust IV fluids. 5. Holding all cardiac medications at this time. 6. No diuresis for now. 7. Replace electrolytes as needed. Kavon Peña M.D. DR: RICHY JOB#: [id number] CC:
--- NOTE | 2019-11-25 03:00 | NUR ---
NURSE NOTES: Urine output been improving , Pls see I and O.
--- NOTE | 2019-11-25 05:00 | NUR ---
NURSE NOTES: Had another brownish stool. - cleaned up pt.
[2019-11-25 05:13] LABS: BASOPHILS % (AUTO) 0.3 % (0.0-2.0); EOSINOPHILS % (AUTO) 2.8 % (0.0-3.0); HEMATOCRIT 25.5 % (37.0-47.0); HEMOGLOBIN 8.3 G/DL (12.0-16.0); LYMPHOCYTES % (AUTO) 18.6 % (20.0-45.0); MEAN CORPUSCULAR VOLUME 86 FL (80-99); MONOCYTES % (AUTO) 6.3 % (1.0-10.0); PLATELET COUNT 230 K/UL (150-450); RED BLOOD COUNT 2.98 M/UL (4.20-5.40); RED CELL DISTRIBUTION WIDTH 14.5 % (11.6-14.8); WHITE BLOOD COUNT 9.7 K/UL (4.8-10.8)
[2019-11-25 05:23] LABS: ANION GAP 15 mmol/L (5-15); BLOOD UREA NITROGEN 33 mg/dL (7-18); CALCIUM 7.1 MG/DL (8.5-10.1); CARBON DIOXIDE 22 MMOL/L (21-32); CHLORIDE 113 MMOL/L (98-107); CREATININE 2.8 MG/DL (0.55-1.30); POTASSIUM 2.8 MMOL/L (3.5-5.1); SODIUM 150 MMOL/L (136-145)
--- NOTE | 2019-11-25 06:00 | NUR ---
NURSE NOTES: Accucheck 183 with 3 units nov flexpen.
--- NOTE | 2019-11-25 06:34 | NUR ---
RESPIRATORY NOTE: Received pt intubated with ETT size 7.5@ 24cm lip line, secured by anchor fasts. Pt is obtunded, unable to follow commands. Pt is on the vent with the settings: AC 12-350ml-30%FiO2-peep 5. Pt is not in distress at this time. Noted that pt's lower lip is swollen. RN aware. Alarms are set and audible, vent is plugged into the red outlet, ambu bag is at bedside. Will continue to monitor.
--- NOTE | 2019-11-25 07:00 | NUR ---
NURSE NOTES: Decrease IVF to 50ml/hr. per DR Alvarez order.
--- NOTE | 2019-11-25 07:30 | NUR ---
NURSE NOTES: LATE ENTRY: RECEIVED REPORT FROM ЕКАТЕРИНА. Rodrigo PT OBTUNDED. PUPILS 3MM SLUGGISH. REACTION TO PAIN AND SHAKING. GAG REFLEX HYPOACTIVE. SECRETIONS PINK MODERATE, THIN. LUNG SOUNDS DIMINISHED. PT INTUBATED ETT TUBE 7.5, 24CM AT LIP. VENT SETTINGS: AC 12, VT 350, FI02 30%, PEEP 5. SATING 98%. HOB 30. G-TUBE IN PLACE. ABDOMEN DISTENDED, SOFT. BOWEL SOUNDS HYPOACTIVE. NO BM AT THIS TIME. AN DRAINING CLOUDY WITH SEDIMENT URINE. BILATERAL UPPER AND LOWER EXTREMITY PITTING EDEMA 3-4+, WEEPING. RUNNING NS AT 50ML/HR. SKIN- SEE ASSESSMENT. CONTACT PRECAUTIONS. BED LOCKED, IN LOW POSITION. WILL CONTINUE TO MONITOR PT.
--- NOTE | 2019-11-25 07:35 | NUR ---
HAND-OFF: Report given to Oriana GEIGER for continuity of care..
--- NOTE | 2019-11-25 07:53 | General Progress Note ---
Assessment/Plan Status: stable Assessment/Plan: Assessment/Plan Status: stable Assessment/Plan: Assessment - h/o gastroparesis and GT feed intolerance - GJ tube dislodged and replaced with G tube - Resp failure, intubated - OBS - Sepeis, shock - CRF - Poor Px Recommendations - continue TF - would hold if extubated - abx / supportive care - elevate HOB - can re-address G to J conversion once stabilized Subjective ROS Limited/Unobtainable: No Allergies: Coded Allergies: No Known Allergies (Verified , 12/31/09) Objective Last 24 Hour Vital Signs Date Time Temp Pulse Resp B/P (MAP) Pulse Ox O2 Delivery O2 Flow Rate FiO2 11/25/19 06:34 92 17 30 11/25/19 06:30 97 18 11/25/19 06:00 97 22 150/71 (97) 100 11/25/19 05:30 89 20 30 11/25/19 05:00 96 23 138/67 (90) 100 11/25/19 04:00 Mechanical Ventilator 11/25/19 04:00 98.4 103 23 164/77 (106) 100 11/25/19 04:00 94 11/25/19 04:00 30 11/25/19 03:15 89 20 30 11/25/19 03:00 91 21 120/58 (78) 99 11/25/19 02:00 90 20 125/60 (81) 99 11/25/19 01:15 120/57 11/25/19 01:00 90 120/57 (78) 99 11/25/19 00:39 91 20 30 11/25/19 00:00 91 11/25/19 00:00 Mechanical Ventilator 11/25/19 00:00 98.0 97 142/65 (90) 99 11/25/19 00:00 30 11/24/19 23:10 97 20 30 11/24/19 23:00 91 134/62 (86) 100 11/24/19 22:00 96 140/67 (91) 95 11/24/19 21:16 102 23 30 11/24/19 21:00 103 165/76 (105) 100 11/24/19 20:00 30 11/24/19 20:00 94 11/24/19 20:00 98.0 94 21 127/60 (82) 100 11/24/19 20:00 Mechanical Ventilator 11/24/19 19:00 104 22 143/56 (85) 99 11/24/19 18:45 95 19 30 11/24/19 18:00 94 19 135/61 (85) 100 11/24/19 17:10 85 26 30 11/24/19 17:00 94 19 148/70 (96) 100 11/24/19 16:00 98.4 97 23 143/68 (93) 100 11/24/19 16:00 30 11/24/19 16:00 Mechanical Ventilator 11/24/19 16:00 100 11/24/19 15:25 98 26 30 11/24/19 15:00 96 23 148/70 (96) 100 11/24/19 14:00 98 27 145/70 (95) 100 11/24/19 13:00 94 24 150/70 (96) 100 11/24/19 12:50 97 25 100 Mechanical Ventilator 30 11/24/19 12:50 97 25 30 11/24/19 12:00 98.4 94 25 146/64 (91) 100 11/24/19 12:00 30 11/24/19 12:00 Mechanical Ventilator 11/24/19 11:20 102 11/24/19 11:15 100 11/24/19 11:00 95 21 143/64 (90) 100 11/24/19 10:40 97 25 30 11/24/19 10:00 100 23 150/70 (96) 100 11/24/19 09:25 98 28 30 11/24/19 09:00 95 25 140/69 (92) 100 11/24/19 08:00 98.7 95 27 134/63 (86) 100 11/24/19 08:00 Mechanical Ventilator 11/24/19 08:00 30 Intake and Output 11/24/19 11/25/19 19:00 07:00 Intake Total 1772.5 ml 1275 ml Output Total 515 ml 620 ml Balance 1257.5 ml 655 ml Intake Free Water 150 ml 90 ml IV Total 1262.5 ml 825 ml Tube Feeding 360 ml 360 ml Output Urine Total 515 ml 620 ml # Bowel Movements 1 1 Laboratory Tests 11/24/19 10:52: Arterial Blood pH 7.399, Arterial Blood Partial Pressure CO2 33.2L, Arterial Blood Partial Pressure O2 119.6H, Arterial Blood HCO3 20.1L, Arterial Blood Oxygen Saturation 98.2, Arterial Blood Base Excess -4.2L, Danilo Test Positive 11/25/19 04:30: White Blood Count 9.7, Red Blood Count 2.98L, Hemoglobin 8.3L, Hematocrit 25.5L , Mean Corpuscular Volume 86, Mean Corpuscular Hemoglobin 27.8, Mean Corpuscular Hemoglobin Concent 32.5, Red Cell Distribution Width 14.5, Platelet Count 230, Mean Platelet Volume 4.2L, Neutrophils (%) (Auto) 72.0, Lymphocytes ( %) (Auto) 18.6L, Monocytes (%) (Auto) 6.3, Eosinophils (%) (Auto) 2.8, Basophils (%) (Auto) 0.3, Sodium Level 150H, Potassium Level 2.8L, Chloride Level 113H, Carbon Dioxide Level 22, Anion Gap 15, Blood Urea Nitrogen 33H, Creatinine 2.8H, Estimat Glomerular Filtration Rate 19.6, Glucose Level 171H, Calcium Level 7.1L, Magnesium Level 1.8, Pro-B-Type Natriuretic Peptide 7368H Height (Feet): 5 Height (Inches): 3.00 Weight (Pounds): 172 General Appearance: lethargic EENT: normal ENT inspection Neck: supple Cardiovascular: normal rate Respiratory/Chest: decreased breath sounds Abdomen: normal bowel sounds, non tender, soft Extremities: non-tender Eder Sims MD Nov 25, 2019 07:53
--- NOTE | 2019-11-25 08:00 | NUR ---
NURSE NOTES: SPOKE WITH MD BURNETT REGARDING PT STATUS. TOLERATING FEEDING NEPRO AT 30ML. NS RATE ADJUSTED TO 50ML/HR. K 2.8 THIS AM. RECEIVED ORDER TO REPLACE 20KCL IVPB, CBC AND BMP IN AM.
--- NOTE | 2019-11-25 09:00 | NUR ---
RESPIRATORY NOTE: Placed pt on CPAP PS 8-peep 5- 30%FiO2 per weaning's order. Pt is tolerating well. FELY Gastelum and Dr. Douglass at bedside and aware. ABG in 1 hour. Will continue to monitor.
--- NOTE | 2019-11-25 09:05 | Critical Care Progress Note ---
Assessment/Plan Assessment/Plan Respiratory failure, acute on chronic. Alkalemia due to hyperventilation, chronic metabolic alkalosis, chronic respiratory acidosis, leukocytosis, sepsis, anemia, hyponatremia, hyperkalemia, chronic renal failure, severe protein-calorie malnutrition. hyponatremia, tachypnea PLAN repeat imaging care noted and reviewed ID noted and discussed respiratory care reviewed Ventilatory support - AC and taper off as able discuss wean with nursing and physicians meds noted SNF meds as outlined supportive care suction and monitor imaging off load as able oxygen therapy and titrate prognosis not improved monitor skin exam tube feeds as tolerated and monitor residuals replace mag and k as needed monitor lytes; renal noted and reviewed hope to avoid trach; d/w primary medications/laboratory data/nursing notes/ICU care reviewed in detail note reviewed and edited care discussed with RN and RT ICU time spent >40 minutes Critical Care - Subjective Interval Events: still on vent weaning poorly ICU care reviewed in detail ROS Limited/Unobtainable: Yes Condition: critical EKG Rhythm: Sinus Rhythm Residuals: minimal Tube Feeding Tolerated: yes I&O: Intake and Output 11/24/19 11/25/19 19:00 07:00 Intake Total 1772.5 ml 1275 ml Output Total 515 ml 620 ml Balance 1257.5 ml 655 ml Intake Free Water 150 ml 90 ml IV Total 1262.5 ml 825 ml Tube Feeding 360 ml 360 ml Output Urine Total 515 ml 620 ml # Bowel Movements 1 1 Critical Care - Objective ET-Tube: 7.5 ET Position: 24 Last 24 Hour Vital Signs Date Time Temp Pulse Resp B/P (MAP) Pulse Ox O2 Delivery O2 Flow Rate FiO2 11/25/19 06:34 92 17 30 11/25/19 06:30 97 18 11/25/19 06:00 97 22 150/71 (97) 100 11/25/19 05:30 89 20 30 11/25/19 05:00 96 23 138/67 (90) 100 11/25/19 04:00 Mechanical Ventilator 11/25/19 04:00 98.4 103 23 164/77 (106) 100 11/25/19 04:00 94 11/25/19 04:00 30 11/25/19 03:15 89 20 30 11/25/19 03:00 91 21 120/58 (78) 99 11/25/19 02:00 90 20 125/60 (81) 99 11/25/19 01:15 120/57 11/25/19 01:00 90 120/57 (78) 99 11/25/19 00:39 91 20 30 11/25/19 00:00 91 11/25/19 00:00 Mechanical Ventilator 11/25/19 00:00 98.0 97 142/65 (90) 99 11/25/19 00:00 30 11/24/19 23:10 97 20 30 11/24/19 23:00 91 134/62 (86) 100 11/24/19 22:00 96 140/67 (91) 95 11/24/19 21:16 102 23 30 11/24/19 21:00 103 165/76 (105) 100 11/24/19 20:00 30 11/24/19 20:00 94 11/24/19 20:00 98.0 94 21 127/60 (82) 100 11/24/19 20:00 Mechanical Ventilator 11/24/19 19:00 104 22 143/56 (85) 99 11/24/19 18:45 95 19 30 11/24/19 18:00 94 19 135/61 (85) 100 11/24/19 17:10 85 26 30 11/24/19 17:00 94 19 148/70 (96) 100 11/24/19 16:00 98.4 97 23 143/68 (93) 100 11/24/19 16:00 30 11/24/19 16:00 Mechanical Ventilator 11/24/19 16:00 100 11/24/19 15:25 98 26 30 11/24/19 15:00 96 23 148/70 (96) 100 11/24/19 14:00 98 27 145/70 (95) 100 11/24/19 13:00 94 24 150/70 (96) 100 11/24/19 12:50 97 25 100 Mechanical Ventilator 30 11/24/19 12:50 97 25 30 11/24/19 12:00 98.4 94 25 146/64 (91) 100 11/24/19 12:00 30 11/24/19 12:00 Mechanical Ventilator 11/24/19 11:20 102 11/24/19 11:15 100 11/24/19 11:00 95 21 143/64 (90) 100 11/24/19 10:40 97 25 30 11/24/19 10:00 100 23 150/70 (96) 100 11/24/19 09:25 98 28 30 Labs: Labs Test 11/23/19 05:50 11/24/19 10:52 11/25/19 04:30 White Blood Count 10.9 K/UL (4.8-10.8) 9.7 K/UL (4.8-10.8) Red Blood Count 3.17 M/UL (4.20-5.40) 2.98 M/UL (4.20-5.40) Hemoglobin 9.0 G/DL (12.0-16.0) 8.3 G/DL (12.0-16.0) Hematocrit 26.8 % (37.0-47.0) 25.5 % (37.0-47.0) Mean Corpuscular Volume 85 FL (80-99) 86 FL (80-99) Mean Corpuscular Hemoglobin 28.3 PG (27.0-31.0) 27.8 PG (27.0-31.0) Mean Corpuscular Hemoglobin Concent 33.4 G/DL (32.0-36.0) 32.5 G/DL (32.0-36.0) Red Cell Distribution Width 14.1 % (11.6-14.8) 14.5 % (11.6-14.8) Platelet Count 237 K/UL (150-450) 230 K/UL (150-450) Mean Platelet Volume 4.3 FL (6.5-10.1) 4.2 FL (6.5-10.1) Neutrophils (%) (Auto) 79.3 % (45.0-75.0) 72.0 % (45.0-75.0) Lymphocytes (%) (Auto) 11.8 % (20.0-45.0) 18.6 % (20.0-45.0) Monocytes (%) (Auto) 5.0 % (1.0-10.0) 6.3 % (1.0-10.0) Eosinophils (%) (Auto) 3.7 % (0.0-3.0) 2.8 % (0.0-3.0) Basophils (%) (Auto) 0.3 % (0.0-2.0) 0.3 % (0.0-2.0) Sodium Level 144 MMOL/L (136-145) 150 MMOL/L (136-145) Potassium Level 3.2 MMOL/L (3.5-5.1) 2.8 MMOL/L (3.5-5.1) Chloride Level 108 MMOL/L (98-107) 113 MMOL/L (98-107) Carbon Dioxide Level 19 MMOL/L (21-32) 22 MMOL/L (21-32) Anion Gap 17 mmol/L (5-15) 15 mmol/L (5-15) Blood Urea Nitrogen 44 mg/dL (7-18) 33 mg/dL (7-18) Creatinine 3.5 MG/DL (0.55-1.30) 2.8 MG/DL (0.55-1.30) Estimat Glomerular Filtration Rate 15.2 mL/min (>60) 19.6 mL/min (>60) Glucose Level 230 MG/DL (74-106) 171 MG/DL (74-106) Calcium Level 7.4 MG/DL (8.5-10.1) 7.1 MG/DL (8.5-10.1) Magnesium Level 1.6 MG/DL (1.8-2.4) 1.8 MG/DL (1.8-2.4) Total Bilirubin 0.2 MG/DL (0.2-1.0) Aspartate Amino Transf (AST/SGOT) 14 U/L (15-37) Alanine Aminotransferase (ALT/SGPT) 7 U/L (12-78) Alkaline Phosphatase 97 U/L (46-116) Total Protein 6.2 G/DL (6.4-8.2) Albumin 1.6 G/DL (3.4-5.0) Globulin 4.6 g/dL Albumin/Globulin Ratio 0.3 (1.0-2.7) Thyroid Stimulating Hormone (TSH) 5.538 uiU/mL (0.358-3.740) Arterial Blood pH 7.399 (7.350-7.450) Arterial Blood Partial Pressure CO2 33.2 mmHg (35.0-45.0) Arterial Blood Partial Pressure O2 119.6 mmHg (75.0-100.0) Arterial Blood HCO3 20.1 mmol/L (22.0-26.0) Arterial Blood Oxygen Saturation 98.2 % (95-100) Arterial Blood Base Excess -4.2 (-2-2) Danilo Test Positive Pro-B-Type Natriuretic Peptide 7368 pg/mL (0-125) Objective: WDWN ETT in place reduced LOC as prior reduced breath sounds bilaterally without rhonchi or wheeze [id number] without MRG NABS nontender no HSM; no distention feeding tube in place no CC some edema overall same skin noted nonfocal with reduced ROM reviewed and edited Accucheck: 183 Torey Douglass MD Nov 25, 2019 09:05
--- NOTE | 2019-11-25 09:45 | NUR ---
RESPIRATORY NOTE: Pt is in resp distress: HR>135bpm, RR>40bpm, saturated at 90%.Pt's lower lip are bleeding and swollen due to biting. Placed pt back to AC mode, OPA in place with a gauze between the OPA and lower lip to prevent further bleeding and pressure. Pt is slowly back to normal but still agitated. FELY Gastelum at bedside and aware. Will continue to monitor pt.
[2019-11-25] MEDS: Pantoprazole Inj IVP SCH (09:49)
[2019-11-25] MEDS: levETIRAcetam 500mg/NS100ml 100 ML IVPB SCH ×2 (09:49→21:39)
[2019-11-25] MEDS: Acetaminophen 650mg/20.3ml GT PRN (09:59)
--- NOTE | 2019-11-25 09:59 | NUR ---
NURSE NOTES: LATE ENTRY: TYLENOL 650MG GT 20.3ML Q 4HR. GIVEN FOR PAIN. PROVIDED SUCTION AND BITE BLOCK INSERTION, NOTED PT BOTTOM LIP SWELLING AND MINIMAL BLEEDING PRESENT. CN AWARE, OINTMENT AND DRESSING APPLIED. Addendum: 11/25/19 at 1702 by Oriana Allan RN PT DISPLAYING MILD SEIZURE ACTIVITY. BLINKING EYES IN PATTERN AND BACKING HEAD INTO PILLOW. NOTED INCONTINENCE AND TEETH CLENCHING. ATIVAN 2MG/ML IVP GIVEN
--- NOTE | 2019-11-25 10:32 | NUR ---
RD ASSESSMENT & RECOMMENDATIONS SEE CARE ACTIVITY FOR COMPLETE ASSESSMENT DAILY ESTIMATED NEEDS: Needs based on Critical care, sepsis, wound, ARF/ 57.7kg abw 22-30 kcals/kg 3192-9169 total kcals 0.8-1.3 (increase w/ renal fxn improvement) g protein/kg 46-75 g total protein 25-30 mL/kg 7941-1560 total fluid mLs NUTRITION DIAGNOSIS: 1) Swallowing difficulty r/t dysphagia as evidenced by pt is GJtube dep, currently orally intubated, s/p dislodged GT tube, s/p GT re-placement, on GT feeds. 2) Altered nutrition related lab values r/t respiratory failure, DM, ARF, sepsis as evidenced by upon adm CO2 >45* and elev pH 7.616*, now improved, elev K (7.2*->2.5*->2.8), elev creat(8.8->2.8), elev BUN (178->33), elev BG (171 230), elev LA, elev wbc (22.2*->wnl) 3) Increased kcal/prot needs R/T wound healing as evidenced by admitted w/ DTPI wounds @ sacrum and BL heels. CURRENT TF:Nepro @ 30ml/hr x 24 hrs ENTERAL NUTRITION RECOMMENDATIONS: Glucerna 1.5 @ 40ml/hr x 24 hrs to provide 960ml, 1440kcal, 79g prot, 729ml free water : Rec TF change to Glucerna 1.5: renal fxn cont to improve, Creat now 2.8, K consistently low, BGs elevated, Nepro is not necessary. : Initiate Glucerna 1.5 @ 20ml/hr x 6 hrs, advance 10ml q 4-6 hrs as tolerated to goal rate : HOB Over 30 degrees/ water flush per MD ADDITIONAL RECOMMENDATIONS: * Monitor lytes and renal fxn closely -> admitted w/ creat >8.0-> now 2.8 improving -> K consistently low, rec TF change as above, Nepro unnecessary * Calibrated bedscale wt- w/ added p200 mattress + pump * Wound care: add Maik BID via GT + Vit C 250 mg daily * Rec adjust or DC IVF -> pt on NS IVF + hypernatremia
--- NOTE | 2019-11-25 11:26 | Infectious Diseases Prog Note ---
"Assessment/Plan Assessment/Plan antibiotics : none A 1. MRSA | e.coli pneumonia s/p rx 2. renal failure improving 3. diabetes mellitus 4. CHF 5. CVA 6. respiratory failure 7. leucocytosis resolved P 1. continue off antibiotics 2. will follow up clinically Subjective ROS Limited/Unobtainable: Yes Allergies: Coded Allergies: No Known Allergies (Verified , 12/31/09) Objective Vital Signs Last 24 Hour Vital Signs Date Time Temp Pulse Resp B/P (MAP) Pulse Ox O2 Delivery O2 Flow Rate FiO2 11/25/19 10:59 88 18 30 11/25/19 10:50 100 11/25/19 09:45 120 38 30 11/25/19 09:00 94 22 30 30 11/25/19 06:34 92 17 30 11/25/19 06:30 97 18 11/25/19 06:00 97 22 150/71 (97) 100 11/25/19 05:30 89 20 30 11/25/19 05:00 96 23 138/67 (90) 100 11/25/19 04:00 Mechanical Ventilator 11/25/19 04:00 98.4 103 23 164/77 (106) 100 11/25/19 04:00 94 11/25/19 04:00 30 11/25/19 03:15 89 20 30 11/25/19 03:00 91 21 120/58 (78) 99 11/25/19 02:00 90 20 125/60 (81) 99 11/25/19 01:15 120/57 11/25/19 01:00 90 120/57 (78) 99 11/25/19 00:39 91 20 30 11/25/19 00:00 91 11/25/19 00:00 Mechanical Ventilator 11/25/19 00:00 98.0 97 142/65 (90) 99 11/25/19 00:00 30 11/24/19 23:10 97 20 30 11/24/19 23:00 91 134/62 (86) 100 11/24/19 22:00 96 140/67 (91) 95 11/24/19 21:16 102 23 30 11/24/19 21:00 103 165/76 (105) 100 11/24/19 20:00 30 11/24/19 20:00 94 11/24/19 20:00 98.0 94 21 127/60 (82) 100 3/19/20 20:00 Mechanical Ventilator 11/24/19 19:00 104 22 143/56 (85) 99 11/24/19 18:45 95 19 30 11/24/19 18:00 94 19 135/61 (85) 100 11/24/19 17:10 85 26 30 11/24/19 17:00 94 19 148/70 (96) 100 11/24/19 16:00 98.4 97 23 143/68 (93) 100 11/24/19 16:00 30 11/24/19 16:00 Mechanical Ventilator 11/24/19 16:00 100 11/24/19 15:25 98 26 30 11/24/19 15:00 96 23 148/70 (96) 100 11/24/19 14:00 98 27 145/70 (95) 100 11/24/19 13:00 94 24 150/70 (96) 100 11/24/19 12:50 97 25 100 Mechanical Ventilator 30 11/24/19 12:50 97 25 30 11/24/19 12:00 98.4 94 25 146/64 (91) 100 11/24/19 12:00 30 11/24/19 12:00 Mechanical Ventilator Height (Feet): 5 Height (Inches): 3.00 Weight (Pounds): 172 HEENT: other - intubated Respiratory/Chest: lungs clear Cardiovascular: normal rate, regular rhythm, no gallop/murmur Abdomen: soft, non tender, other - GT Extremities: other - + edema, left arm PICC Laboratory Tests Test 11/25/19 04:30 11/25/19 09:45 White Blood Count 9.7 K/UL (4.8-10.8) Red Blood Count 2.98 M/UL (4.20-5.40) L Hemoglobin 8.3 G/DL (12.0-16.0) L Hematocrit 25.5 % (37.0-47.0) L Mean Corpuscular Volume 86 FL (80-99) Mean Corpuscular Hemoglobin 27.8 PG (27.0-31.0) Mean Corpuscular Hemoglobin Concent 32.5 G/DL (32.0-36.0) Red Cell Distribution Width 14.5 % (11.6-14.8) Platelet Count 230 K/UL (150-450) Mean Platelet Volume 4.2 FL (6.5-10.1) L Neutrophils (%) (Auto) 72.0 % (45.0-75.0) Lymphocytes (%) (Auto) 18.6 % (20.0-45.0) L Monocytes (%) (Auto) 6.3 % (1.0-10.0) Eosinophils (%) (Auto) 2.8 % (0.0-3.0) Basophils (%) (Auto) 0.3 % (0.0-2.0) Sodium Level 150 MMOL/L (136-145) H Potassium Level 2.8 MMOL/L (3.5-5.1) L Chloride Level 113 MMOL/L (98-107) H Carbon Dioxide Level 22 MMOL/L (21-32) Anion Gap 15 mmol/L (5-15) Blood Urea Nitrogen 33 mg/dL (7-18) H Creatinine 2.8 MG/DL (0.55-1.30) H Estimat Glomerular Filtration Rate 19.6 mL/min (>60) Glucose Level 171 MG/DL (74-106) H Calcium Level 7.1 MG/DL (8.5-10.1) L Magnesium Level 1.8 MG/DL (1.8-2.4) Pro-B-Type Natriuretic Peptide 7368 pg/mL (0-125) H Arterial Blood pH 7.386 (7.350-7.450) Arterial Blood Partial Pressure CO2 30.6 mmHg (35.0-45.0) L Arterial Blood Partial Pressure O2 104.9 mmHg (75.0-100.0) H Arterial Blood HCO3 17.9 mmol/L (22.0-26.0) *L Arterial Blood Oxygen Saturation 97.5 % (95-100) Arterial Blood Base Excess -6.2 (-2-2) L Danilo Test Positive Current Medications Medications (Trade) Dose Ordered Sig/Aaron Route PRN Reason Start Time Stop Time Status Last Admin Dose Admin Acetaminophen (Tylenol) 650 mg Q4H PRN GT Mild Pain/Temp > 100.5 11/17/19 07:30 12/17/19 07:29 11/25/19 09:59 Chlorhexidine Gluconate (Arabella-Hex 2%) 1 applic DAILY@1999 TOPIC 11/15/19 20:00 12/15/19 19:59 11/24/19 19:56 Dextrose (Dextrose 50%) 25 ml Q30M PRN IV Hypoglycemia 11/14/19 19:00 12/14/19 18:59 Dextrose (Dextrose 50%) 50 ml Q30M PRN IV Hypoglycemia 11/14/19 19:00 12/14/19 18:59 Dopamine HCl/ Dextrose 250 ml @ 6.124 mls/ hr Q24H IV 11/21/19 01:15 12/15/19 01:14 11/24/19 01:14 Insulin Aspart (NovoLOG) Q6HR SUBQ 11/15/19 00:00 12/14/19 20:59 11/25/19 06:23 Levetiracetam 100 ml @ 400 mls/hr Q12HR IVPB 11/14/19 15:00 12/14/19 14:59 11/25/19 09:49 Lorazepam (Ativan 2mg/ml 1ml) 2 mg Q1H PRN IV For Seizures 11/20/19 14:00 11/27/19 13:59 11/25/19 09:59 Pantoprazole (Protonix) 40 mg DAILY IVP 11/14/19 14:15 12/14/19 14:14 11/25/19 09:49 Sodium Chloride 1,000 ml @ 50 mls/hr Q20H IV 11/25/19 07:00 12/25/19 06:59 11/25/19 07:00 Tyrel Prieto MD Nov 25, 2019 11:26"
--- NOTE | 2019-11-25 13:05 | NUR ---
NURSE NOTES: accu chk 170, 2units given subcutaneous
--- NOTE | 2019-11-25 14:00 | NUR ---
NURSE NOTES: LATE ENTRY: PT OBTUNDED. SECRETIONS RED, SMALL, THIN. PT INTUBATED ETT TUBE 7.5, 24CM AT LIP. VENT SETTINGS: AC 12, VT 350, FI02 30%, PEEP 5. SATING 98%. ONE BM, LOOSE BROWN, MODERATE AMOUNT. AN DRAINING CLOUDY WITH SEDIMENT URINE. BILATERAL UPPER AND LOWER EXTREMITY PITTING EDEMA 3-4+, WEEPING. ELEVATED ON PILLOWS RUNNING NS AT 50ML/HR. CONTACT PRECAUTIONS. BED LOCKED, IN LOW POSITION. WILL CONTINUE TO MONITOR PT.
--- NOTE | 2019-11-25 14:51 | General Progress Note ---
Assessment/Plan Problem List: (1) Shock ICD Codes: R57.9 - Shock, unspecified SNOMED: 72875654 (2) Anemia due to acute blood loss ICD Codes: D62 - Acute posthemorrhagic anemia SNOMED: 162214294 (3) Hyperkalemia ICD Codes: E87.5 - Hyperkalemia SNOMED: 40440702 (4) Recurrent seizures ICD Codes: G40.909 - Epilepsy, unspecified, not intractable, without status epilepticus SNOMED: 98982257, 99200843 (5) Aspiration pneumonia ICD Codes: J69.0 - Pneumonitis due to inhalation of food and vomit SNOMED: 700586490 (6) ARF (acute renal failure) ICD Codes: N17.9 - Acute kidney failure, unspecified SNOMED: 86560449 (7) ATN (acute tubular necrosis) ICD Codes: N17.0 - Acute kidney failure with tubular necrosis SNOMED: 39945207 Status: stable Assessment/Plan: cont vent support resp care suctioning as needed iv abx pressors at renal dose ivf monitor renal fxn monitor labs and cbc transfuse as needed critical and guarded grim prognosis family considering withdrawl of care still dnr. family reconsidering dni Subjective ROS Limited/Unobtainable: No Constitutional: Reports: malaise, weakness HEENT: Reports: no symptoms Cardiovascular: Reports: no symptoms Respiratory: Reports: cough, shortness of breath Gastrointestinal/Abdominal: Reports: difficulty swallowing Genitourinary: Reports: no symptoms Neurologic/Psychiatric: Reports: no symptoms Endocrine: Reports: no symptoms Hematologic/Lymphatic: Reports: anemia Allergies: Coded Allergies: No Known Allergies (Verified , 12/31/09) All Systems: reviewed and negative except above Subjective bp improved. off dopamine due to high bp. good uop. no fevers. GT replaced. renal fxn improving. family declined HD. renal fxn and urine output improving. Objective Last 24 Hour Vital Signs Date Time Temp Pulse Resp B/P (MAP) Pulse Ox O2 Delivery O2 Flow Rate FiO2 11/25/19 13:00 98.8 88 20 116/55 (75) 100 11/25/19 12:45 85 17 30 11/25/19 12:00 84 11/25/19 12:00 30 11/25/19 12:00 88 19 114/57 (76) 100 11/25/19 11:00 91 16 124/57 (79) 100 11/25/19 10:59 88 18 30 11/25/19 10:50 100 11/25/19 10:00 107 25 142/64 (90) 100 11/25/19 09:45 120 38 30 11/25/19 09:00 95 20 151/69 (96) 100 11/25/19 09:00 94 22 30 30 11/25/19 08:00 85 11/25/19 08:00 95 19 148/67 (94) 100 11/25/19 08:00 30 11/25/19 08:00 Mechanical Ventilator 11/25/19 07:00 98.7 94 18 161/82 (108) 100 11/25/19 06:34 92 17 30 11/25/19 06:30 97 18 11/25/19 06:00 97 22 150/71 (97) 100 11/25/19 05:30 89 20 30 11/25/19 05:00 96 23 138/67 (90) 100 11/25/19 04:00 Mechanical Ventilator 11/25/19 04:00 98.4 103 23 164/77 (106) 100 11/25/19 04:00 94 11/25/19 04:00 30 11/25/19 03:15 89 20 30 11/25/19 03:00 91 21 120/58 (78) 99 11/25/19 02:00 90 20 125/60 (81) 99 11/25/19 01:15 120/57 11/25/19 01:00 90 120/57 (78) 99 11/25/19 00:39 91 20 30 11/25/19 00:00 91 11/25/19 00:00 Mechanical Ventilator 11/25/19 00:00 98.0 97 142/65 (90) 99 11/25/19 00:00 30 11/24/19 23:10 97 20 30 11/24/19 23:00 91 134/62 (86) 100 11/24/19 22:00 96 140/67 (91) 95 11/24/19 21:16 102 23 30 11/24/19 21:00 103 165/76 (105) 100 11/24/19 20:00 30 11/24/19 20:00 94 11/24/19 20:00 98.0 94 21 127/60 (82) 100 11/24/19 20:00 Mechanical Ventilator 11/24/19 19:00 104 22 143/56 (85) 99 11/24/19 18:45 95 19 30 11/24/19 18:00 94 19 135/61 (85) 100 11/24/19 17:10 85 26 30 11/24/19 17:00 94 19 148/70 (96) 100 11/24/19 16:00 98.4 97 23 143/68 (93) 100 11/24/19 16:00 30 11/24/19 16:00 Mechanical Ventilator 11/24/19 16:00 100 11/24/19 15:25 98 26 30 11/24/19 15:00 96 23 148/70 (96) 100 Intake and Output 11/24/19 11/25/19 19:00 07:00 Intake Total 1772.5 ml 1275 ml Output Total 515 ml 620 ml Balance 1257.5 ml 655 ml Intake Free Water 150 ml 90 ml IV Total 1262.5 ml 825 ml Tube Feeding 360 ml 360 ml Output Urine Total 515 ml 620 ml # Bowel Movements 1 1 Laboratory Tests 11/25/19 04:30: White Blood Count 9.7, Red Blood Count 2.98L, Hemoglobin 8.3L, Hematocrit 25.5L , Mean Corpuscular Volume 86, Mean Corpuscular Hemoglobin 27.8, Mean Corpuscular Hemoglobin Concent 32.5, Red Cell Distribution Width 14.5, Platelet Count 230, Mean Platelet Volume 4.2L, Neutrophils (%) (Auto) 72.0, Lymphocytes ( %) (Auto) 18.6L, Monocytes (%) (Auto) 6.3, Eosinophils (%) (Auto) 2.8, Basophils (%) (Auto) 0.3, Sodium Level 150H, Potassium Level 2.8L, Chloride Level 113H, Carbon Dioxide Level 22, Anion Gap 15, Blood Urea Nitrogen 33H, Creatinine 2.8H, Estimat Glomerular Filtration Rate 19.6, Glucose Level 171H, Calcium Level 7.1L, Magnesium Level 1.8, Pro-B-Type Natriuretic Peptide 7368H 11/25/19 09:45: Arterial Blood pH 7.386, Arterial Blood Partial Pressure CO2 30.6L, Arterial Blood Partial Pressure O2 104.9H, Arterial Blood HCO3 17.9*L, Arterial Blood Oxygen Saturation 97.5, Arterial Blood Base Excess -6.2L, Danilo Test Positive Height (Feet): 5 Height (Inches): 3.00 Weight (Pounds): 172 Objective General Appearance: WD/WN, lethargic Neck: normal alignment, supple, normal inspection Cardiovascular: normal rate, regular rhythm Respiratory/Chest: no respiratory distress, no accessory muscle use, rhonchi - bilaterally Abdomen: normal bowel sounds, non tender, soft, no organomegaly, no mass Extremities: normal range of motion, non-tender Neurologic: unresponsive, aphasia Jeffrey Crowder MD Nov 25, 2019 14:51
--- NOTE | 2019-11-25 16:07 | Surgery Progress Note ---
Surgery Progress Note Subjective Additional Comments ill appearing no n/v/f/c exam stable labs noted Objective Last 24 Hour Vital Signs Date Time Temp Pulse Resp B/P (MAP) Pulse Ox O2 Delivery O2 Flow Rate FiO2 11/25/19 15:28 112 21 30 11/25/19 14:33 97 26 30 11/25/19 13:00 98.8 88 20 116/55 (75) 100 11/25/19 12:45 85 17 30 11/25/19 12:00 84 11/25/19 12:00 30 11/25/19 12:00 88 19 114/57 (76) 100 11/25/19 11:00 91 16 124/57 (79) 100 11/25/19 10:59 88 18 30 11/25/19 10:50 100 11/25/19 10:00 107 25 142/64 (90) 100 11/25/19 09:45 120 38 30 11/25/19 09:00 95 20 151/69 (96) 100 11/25/19 09:00 94 22 30 30 11/25/19 08:00 85 11/25/19 08:00 95 19 148/67 (94) 100 11/25/19 08:00 30 11/25/19 08:00 Mechanical Ventilator 11/25/19 07:00 98.7 94 18 161/82 (108) 100 11/25/19 06:34 92 17 30 11/25/19 06:30 97 18 11/25/19 06:00 97 22 150/71 (97) 100 11/25/19 05:30 89 20 30 11/25/19 05:00 96 23 138/67 (90) 100 11/25/19 04:00 Mechanical Ventilator 11/25/19 04:00 98.4 103 23 164/77 (106) 100 11/25/19 04:00 94 11/25/19 04:00 30 11/25/19 03:15 89 20 30 11/25/19 03:00 91 21 120/58 (78) 99 11/25/19 02:00 90 20 125/60 (81) 99 11/25/19 01:15 120/57 11/25/19 01:00 90 120/57 (78) 99 11/25/19 00:39 91 20 30 11/25/19 00:00 91 11/25/19 00:00 Mechanical Ventilator 11/25/19 00:00 98.0 97 142/65 (90) 99 11/25/19 00:00 30 11/24/19 23:10 97 20 30 11/24/19 23:00 91 134/62 (86) 100 11/24/19 22:00 96 140/67 (91) 95 11/24/19 21:16 102 23 30 11/24/19 21:00 103 165/76 (105) 100 11/24/19 20:00 30 11/24/19 20:00 94 11/24/19 20:00 98.0 94 21 127/60 (82) 100 11/24/19 20:00 Mechanical Ventilator 11/24/19 19:00 104 22 143/56 (85) 99 11/24/19 18:45 95 19 30 11/24/19 18:00 94 19 135/61 (85) 100 11/24/19 17:10 85 26 30 11/24/19 17:00 94 19 148/70 (96) 100 I&O Intake and Output 11/24/19 11/25/19 19:00 07:00 Intake Total 1772.5 ml 1275 ml Output Total 515 ml 620 ml Balance 1257.5 ml 655 ml Intake Free Water 150 ml 90 ml IV Total 1262.5 ml 825 ml Tube Feeding 360 ml 360 ml Output Urine Total 515 ml 620 ml # Bowel Movements 1 1 Dressing: other Wound: other Drains: other Cardiovascular: RSR Respiratory: decreased breath sounds Abdomen: soft, non-tender, present bowel sounds Extremities: no cyanosis Laboratory Tests Test 11/25/19 04:30 11/25/19 09:45 White Blood Count 9.7 K/UL (4.8-10.8) Red Blood Count 2.98 M/UL (4.20-5.40) L Hemoglobin 8.3 G/DL (12.0-16.0) L Hematocrit 25.5 % (37.0-47.0) L Mean Corpuscular Volume 86 FL (80-99) Mean Corpuscular Hemoglobin 27.8 PG (27.0-31.0) Mean Corpuscular Hemoglobin Concent 32.5 G/DL (32.0-36.0) Red Cell Distribution Width 14.5 % (11.6-14.8) Platelet Count 230 K/UL (150-450) Mean Platelet Volume 4.2 FL (6.5-10.1) L Neutrophils (%) (Auto) 72.0 % (45.0-75.0) Lymphocytes (%) (Auto) 18.6 % (20.0-45.0) L Monocytes (%) (Auto) 6.3 % (1.0-10.0) Eosinophils (%) (Auto) 2.8 % (0.0-3.0) Basophils (%) (Auto) 0.3 % (0.0-2.0) Sodium Level 150 MMOL/L (136-145) H Potassium Level 2.8 MMOL/L (3.5-5.1) L Chloride Level 113 MMOL/L (98-107) H Carbon Dioxide Level 22 MMOL/L (21-32) Anion Gap 15 mmol/L (5-15) Blood Urea Nitrogen 33 mg/dL (7-18) H Creatinine 2.8 MG/DL (0.55-1.30) H Estimat Glomerular Filtration Rate 19.6 mL/min (>60) Glucose Level 171 MG/DL (74-106) H Calcium Level 7.1 MG/DL (8.5-10.1) L Magnesium Level 1.8 MG/DL (1.8-2.4) Pro-B-Type Natriuretic Peptide 7368 pg/mL (0-125) H Arterial Blood pH 7.386 (7.350-7.450) Arterial Blood Partial Pressure CO2 30.6 mmHg (35.0-45.0) L Arterial Blood Partial Pressure O2 104.9 mmHg (75.0-100.0) H Arterial Blood HCO3 17.9 mmol/L (22.0-26.0) *L Arterial Blood Oxygen Saturation 97.5 % (95-100) Arterial Blood Base Excess -6.2 (-2-2) L Danilo Test Positive Plan Problems: (1) Decubitus skin ulcer Assessment & Plan: Pt presented on admission with multiple pressure injuries. DTPI sacrum . Base of injury is indurated,purple with areas that are maroon in colour. An area of fluctuance noted at sacrococcygeal area. Borders are irregular (L)8.5cm x (W)9.3cm.Historical scar also noted within base of Sacral pressure injury. DTPI medial L heel. Base of injury fluctuant,maroon with surrounding non- blanching erythema. (L)1.7cm x (W)1.6cm. DTPI medial R heel. Base of injury is maroon and fluctuant(L)3.1cm x (W)2.5cm. Tx.Plan: Apply Moisture Barrier Paste to Sacrum. Cover with Optifoam drsg. Change every 3 days and prn. Apply Cavilon Skin Barrier to both heels. Cover each heel with Optifoam drsg. Change every 7 days and prn. APM/VALERIE Mattress. Reposition at least every 2 hours or as tolerated. Off-load heels with pillow. Patient is at high risk for deterioration of wounds opening of DTI and formation of worsening decubitus will need close monitoring and significant amount of care to ensure improvement. Nutritional optimization. Will follow with recommendations thank you (2) Failure to thrive in adult Assessment & Plan: Not tolerating tube feeds regurgitation high residuals DAILY ESTIMATED NEEDS: Needs based on Critical care, sepsis, wound, ARF/ 57.7kg abw 22-30 kcals/kg 3515-6240 total kcals 0.8-1.3 (increase w/ renal fxn improvement) g protein/kg 46-75 g total protein 25-30 mL/kg 5059-2863 total fluid mLs NUTRITION DIAGNOSIS: 1) Swallowing difficulty r/t dysphagia as evidenced by pt is Jtube dep, currently orally intubated, NPO. 2) Altered nutrition related lab values r/t respiratory failure, DM, ARF, sepsis as evidenced by COW >45*, elev pH 7.616*, elev K (7.2*), elev creat (8.8), elev BUN (178), elev BG (228), elev LA, elev wbc (22.2*) CURRENT TF:NPO ENTERAL NUTRITION RECOMMENDATIONS: Nepro @ 40ml/hr x 22 hrs to provide 880ml, 1584kcal, 71g prot, 640ml free water * Rec Nepro at this time given ARF, +hyperkalemia w/ creat 8.8. * When medically appropriate, initiate Nepro @ 20ml/hr x 6 hrs, advance 10ml q 4 -6 hrs as tolerated to goal rate * Hold 1 hr before and after Synthroid med * HOB over 30 degrees/ water flush per MD ---- W/ improved renal fxn and normalized lytes, rec Glucerna 1.2 @ 60ml/hr x 22 hrs to provide 1320ml, 1584 kcal, 79g pro, 1063ml free H2O ADDITIONAL RECOMMENDATIONS: 1) Monitor lytes and renal fxn closely -> admitted w/ creat > 8.0, creat previous adm < 2.0 -> K critically elev, s/p kayexalate. 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 (3) Acute respiratory failure Assessment & Plan: As per pulmonology available if trach needs dnr/dni family considering care plan not interested in trach at this time Jared Mcarthur Nov 25, 2019 16:07
--- NOTE | 2019-11-25 16:10 | NUR ---
CASE MANAGEMENT:REVIEW SI;RESPIRATORY FAILURE ~ ORALLY INTUBATED SHOCK ACUTE RENAL FAILURE. ASPIRATION PNA. 98.8 112 26 114/57 100% MECH VENT AC 12 TV 350 PEEP 5 FIO2@ 30% H/H 8.3/25.5 NA 150 K+ 2.8 BUN 33 CR 2.8 BNP 7368 ABG ~ pCO2 30.6 pO2 104.9 HCO3 17.9 BASE EXCESS -6.2 IS;IVF NS @ 50 ML/HR ROCEPHIN IV Q24 HRS INSULIN NOVOLOG SUBQ Q6 HRS PROTONIX IV QD DOPAMINE GTT ICU STATUS DCP;FROM [facility]
--- NOTE | 2019-11-25 16:35 | NUR ---
NURSE NOTES: pt cleaned and repositioned. a febrile. continue to monitor pt.
--- NOTE | 2019-11-25 19:42 | NUR ---
HAND-OFF: Report given to brenda martell pt in no acute distress.
--- NOTE | 2019-11-25 19:45 | NUR ---
NURSE NOTES: Received patient and report from FELY Gastelum. Pt's obtunded, in no acute distress. Afebrile. VS stable. Orally intubated with ETT 7.5, 24LL, AC12, TV 350, PEEP5, 30%. O2 sat 98%. SR on the monitor. Noted GT running Nepro at 30ml/hr, no residuals. HOB kept elevated, on aspiration precaution. Noted Barron 16Fr to gravity, draining cloudy yellow urine. Noted left UA PICC line running NS at 50ml/hr. Altered skin problems noted, wound care initiated. Pt is on P200 mattress. Turned and patient care given. Bed in low and locked position. Call light within reach. Will continue to monitor.
[2019-11-25] MEDS ORDERED: NS 275ml ONE (21:11)
[2019-11-25] MEDS ORDERED: Tubing IV Secondary IV ONE (21:11)
[2019-11-25] MEDS ORDERED: D5NS 1000ml IV ONE (21:11)
[2019-11-25] MEDS: Dyna-Hex 2% Top Sol 2oz TOPIC SCH (21:38)
--- NOTE | 2019-11-25 22:00 | NUR ---
NURSE NOTES: Pt's resting in bed, in no acute distress. VS stable. Afebrile. Will continue to monitor.
[2019-11-26] VITALS (24 sets, daily range): BP systolic 120–184; BP diastolic 41–101
--- NOTE | 2019-11-26 | NUR ---
NURSE NOTES: Pt's resting in bed, in no acute distress. Asleep. VS stable. Will continue to monitor.
[2019-11-26] MEDS: NovoLOG Insulin Flexpen SUBQ SCH ×4 (00:25→17:40)
[2019-11-26] MEDS: DOPamine 400mg/250ml 250 ML IV SCH (01:15)
--- NOTE | 2019-11-26 02:00 | NUR ---
NURSE NOTES: Pt's resting in bed, in no acute distress. Will continue to monitor.
--- NOTE | 2019-11-26 04:00 | NUR ---
NURSE NOTES: Pt's resting in bed, in no acute distress. VS stable. Will continue to monitor.
--- NOTE | 2019-11-26 06:00 | NUR ---
NURSE NOTES: Pt's resting in bed, turned as scheduled. Morning care done. VS stable. Will continue to monitor.
[2019-11-26 06:11] LABS: HEMATOCRIT 23.4 % (37.0-47.0); HEMOGLOBIN 7.6 G/DL (12.0-16.0); MEAN CORPUSCULAR VOLUME 86 FL (80-99); PLATELET COUNT 195 K/UL (150-450); RED BLOOD COUNT 2.73 M/UL (4.20-5.40); RED CELL DISTRIBUTION WIDTH 14.5 % (11.6-14.8); WHITE BLOOD COUNT 8.8 K/UL (4.8-10.8)
[2019-11-26 06:32] LABS: ANION GAP 13 mmol/L (5-15); BLOOD UREA NITROGEN 32 mg/dL (7-18); CALCIUM 7.3 MG/DL (8.5-10.1); CARBON DIOXIDE 23 MMOL/L (21-32); CHLORIDE 115 MMOL/L (98-107); CREATININE 2.6 MG/DL (0.55-1.30); POTASSIUM 2.9 MMOL/L (3.5-5.1); SODIUM 151 MMOL/L (136-145)
--- NOTE | 2019-11-26 07:05 | NUR ---
RESPIRATORY NOTE: received pt orally intubated with ETT size 7.5 placed 24cm at the lip. pt's lower lip is swollen with OPA in place. RN aware. ETT is secured via anchor fast with no visible redness or skin irriation around facial area aside from lower lip. pt has dark blood, thick, clot like secretions when sxn'd. will attempt to wean later this morning. alarms are audible with vent plugged into the red outlet. will monitor throughout the day.
--- NOTE | 2019-11-26 07:20 | NUR ---
HAND-OFF: Report given to FELY Hawley.
--- NOTE | 2019-11-26 07:21 | NUR ---
NURSE NOTES: Received patient and report from FELY Teixeira. Patient is observed laying in bed with her eyes open, not tracking; however does move her head toward voice and responds to physical stimuli. Orally intubated with ETT 7.5, 24cm @ the lip line. Settings: AC 12, TV 350, PEEP 5, 30%. O2 sat 100%. ST (106) on the monitor. GTube running Nepro at 30ml/hr, no residual. HOB kept elevated, aspiration precautions maintained. Barron Catheter 16Fr, draining cloudy yellow urine to urometer. Noted left UA PICC line running NS at 50ml/hr. Altered skin problems noted, covered in optifoam. Pt is on P200 mattress. Bed locked and in lowest position. Call light within reach. Seizure precautions maintained. Will continue to monitor.
[2019-11-26] MEDS: KCl 20mEq 100ml Premix IVPB SCH ×2 (07:28→09:29)
--- NOTE | 2019-11-26 08:53 | NUR ---
RESPIRATORY NOTE: attempted to wean pt per MD order. placed pt on CPAP PS8 fio2 30%. prior to placing pt on CPAP pt RR was 32-35. on weaning pt RR increased >42. HR increased slightly. pt did not meet weaning criteria, but placed pt on SIMV 10 350 PS10 sot439%. will cont to monitor and leave on SIMV as nas as pt can tolerate. RN notified
--- NOTE | 2019-11-26 09:00 | NUR ---
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 HR increased. Pt did not meet weaning criteria, but placed pt on SIMV 10 350 PS10 aof362% and remains on this setting at this time.
--- NOTE | 2019-11-26 09:19 | NUR ---
RESPIRATORY NOTE: pt became restless and more tachypneic. placed back on AC. RN aware
[2019-11-26] MEDS: Pantoprazole Inj IVP SCH (09:29)
[2019-11-26] MEDS: levETIRAcetam 500mg/NS100ml 100 ML IVPB SCH ×2 (09:29→21:14)
[2019-11-26] MEDS ORDERED: NS 275ml ONE (10:08)
--- NOTE | 2019-11-26 10:16 | General Progress Note ---
Assessment/Plan Status: stable Assessment/Plan: Assessment/Plan Status: stable Assessment/Plan: Assessment - h/o gastroparesis and GT feed intolerance - GJ tube dislodged and replaced with G tube - Resp failure, intubated - OBS - Sepeis, shock - CRF - Poor Px Recommendations - continue TF - would hold if extubated - abx / supportive care - elevate HOB - can re-address G to J conversion once stabilized Subjective ROS Limited/Unobtainable: No Allergies: Coded Allergies: No Known Allergies (Verified , 12/31/09) Objective Last 24 Hour Vital Signs Date Time Temp Pulse Resp B/P (MAP) Pulse Ox O2 Delivery O2 Flow Rate FiO2 11/26/19 10:00 93 21 136/76 (96) 100 11/26/19 09:00 116 17 139/59 (85) 100 11/26/19 08:49 110 39 30 11/26/19 08:48 100 11/26/19 08:00 Mechanical Ventilator 11/26/19 08:00 99.3 104 12 144/70 (94) 100 11/26/19 08:00 30 11/26/19 08:00 110 11/26/19 07:01 105 32 30 11/26/19 07:00 103 30 146/72 (96) 100 11/26/19 06:30 98 18 11/26/19 06:00 103 26 148/67 (94) 100 11/26/19 05:18 100 17 30 11/26/19 05:00 99 1 139/61 (87) 100 11/26/19 04:00 104 31 156/74 (101) 100 11/26/19 04:00 30 11/26/19 04:00 Mechanical Ventilator 11/26/19 04:00 99 11/26/19 03:42 104 25 30 11/26/19 03:00 98.5 90 20 122/59 (80) 100 11/26/19 02:00 96 17 143/41 (75) 100 11/26/19 01:36 92 24 30 11/26/19 01:15 121/59 11/26/19 01:00 88 21 121/59 (79) 99 11/26/19 00:00 92 19 122/55 (77) 99 11/26/19 00:00 Mechanical Ventilator 11/26/19 00:00 93 11/25/19 23:03 92 20 30 11/25/19 23:00 93 24 127/59 (81) 100 11/25/19 22:00 89 22 111/55 (73) 99 11/25/19 21:16 94 25 30 11/25/19 21:00 93 20 113/51 (71) 100 11/25/19 20:00 30 11/25/19 20:00 Mechanical Ventilator 11/25/19 20:00 93 11/25/19 20:00 97 26 137/66 (89) 100 11/25/19 19:12 90 23 30 11/25/19 19:00 98.4 90 21 118/51 (73) 100 11/25/19 18:00 91 21 131/60 (83) 100 11/25/19 17:00 90 21 121/51 (74) 99 11/25/19 16:37 92 20 30 11/25/19 16:00 98.4 94 20 113/52 (72) 97 11/25/19 16:00 Mechanical Ventilator 11/25/19 16:00 30 11/25/19 16:00 90 11/25/19 15:28 112 21 30 11/25/19 15:00 94 21 128/61 (83) 100 11/25/19 14:33 97 26 30 11/25/19 14:00 97 23 129/92 (104) 11/25/19 13:00 98.8 88 20 116/55 (75) 100 11/25/19 12:45 85 17 30 11/25/19 12:00 84 11/25/19 12:00 Mechanical Ventilator 11/25/19 12:00 30 11/25/19 12:00 88 19 114/57 (76) 100 11/25/19 11:00 91 16 124/57 (79) 100 11/25/19 10:59 88 18 30 11/25/19 10:50 100 Intake and Output 11/25/19 11/26/19 19:00 07:00 Intake Total 1420 ml 1110 ml Output Total 455 ml 480 ml Balance 965 ml 630 ml Intake Free Water 50 ml IV Total 1000 ml 700 ml Tube Feeding 360 ml 360 ml Other 60 ml Output Urine Total 455 ml 480 ml # Bowel Movements 3 1 Laboratory Tests 11/26/19 05:30: White Blood Count 8.8, Red Blood Count 2.73L, Hemoglobin 7.6L, Hematocrit 23.4L , Mean Corpuscular Volume 86, Mean Corpuscular Hemoglobin 27.8, Mean Corpuscular Hemoglobin Concent 32.4, Red Cell Distribution Width 14.5, Platelet Count 195, Mean Platelet Volume 4.5L, Neutrophils (%) (Auto) , Lymphocytes (%) ( Auto) , Monocytes (%) (Auto) , Eosinophils (%) (Auto) , Basophils (%) (Auto) , Neutrophils % (Manual) [Pending], Lymphocytes % (Manual) [Pending], Platelet Estimate [Pending], Platelet Morphology [Pending], Sodium Level 151H, Potassium Level 2.9L, Chloride Level 115H, Carbon Dioxide Level 23, Anion Gap 13, Blood Urea Nitrogen 32H, Creatinine 2.6H, Estimat Glomerular Filtration Rate 21.5, Glucose Level 185H, Calcium Level 7.3L Height (Feet): 5 Height (Inches): 3.00 Weight (Pounds): 172 General Appearance: lethargic EENT: normal ENT inspection Neck: supple Cardiovascular: normal rate Respiratory/Chest: decreased breath sounds Abdomen: normal bowel sounds, non tender, soft Extremities: non-tender Eder Sims MD Nov 26, 2019 10:16
--- NOTE | 2019-11-26 11:01 | General Progress Note ---
Assessment/Plan Problem List: (1) Shock ICD Codes: R57.9 - Shock, unspecified SNOMED: 71317242 (2) Anemia due to acute blood loss ICD Codes: D62 - Acute posthemorrhagic anemia SNOMED: 528890951 (3) Hyperkalemia ICD Codes: E87.5 - Hyperkalemia SNOMED: 90519300 (4) Recurrent seizures ICD Codes: G40.909 - Epilepsy, unspecified, not intractable, without status epilepticus SNOMED: 94785653, 18238307 (5) Aspiration pneumonia ICD Codes: J69.0 - Pneumonitis due to inhalation of food and vomit SNOMED: 964848133 (6) ARF (acute renal failure) ICD Codes: N17.9 - Acute kidney failure, unspecified SNOMED: 64890645 (7) ATN (acute tubular necrosis) ICD Codes: N17.0 - Acute kidney failure with tubular necrosis SNOMED: 26807013 Status: stable Assessment/Plan: cont vent support resp care suctioning as needed iv abx pressors at renal dose lasix x1 monitor renal fxn monitor labs and cbc transfuse as needed critical and guarded grim prognosis family considering withdrawl of care still dnr. family reconsidering dni Subjective ROS Limited/Unobtainable: No Constitutional: Reports: malaise, weakness HEENT: Reports: no symptoms Cardiovascular: Reports: no symptoms, edema Respiratory: Reports: no symptoms Gastrointestinal/Abdominal: Reports: difficulty swallowing Genitourinary: Reports: no symptoms Neurologic/Psychiatric: Reports: pre-existing deficit, seizure Endocrine: Reports: no symptoms Hematologic/Lymphatic: Reports: anemia Allergies: Coded Allergies: No Known Allergies (Verified , 12/31/09) All Systems: reviewed and negative except above Subjective bp improved. off dopamine due to high bp. good uop. no fevers. GT replaced. renal fxn improving. family declined HD. renal fxn and urine output improving. decrease h/h noted. +edema Objective Last 24 Hour Vital Signs Date Time Temp Pulse Resp B/P (MAP) Pulse Ox O2 Delivery O2 Flow Rate FiO2 11/26/19 10:00 93 21 136/76 (96) 100 11/26/19 09:00 116 17 139/59 (85) 100 11/26/19 08:49 110 39 30 11/26/19 08:48 100 11/26/19 08:00 Mechanical Ventilator 11/26/19 08:00 99.3 104 12 144/70 (94) 100 11/26/19 08:00 30 11/26/19 08:00 110 11/26/19 07:01 105 32 30 11/26/19 07:00 103 30 146/72 (96) 100 11/26/19 06:30 98 18 11/26/19 06:00 103 26 148/67 (94) 100 11/26/19 05:18 100 17 30 11/26/19 05:00 99 1 139/61 (87) 100 11/26/19 04:00 104 31 156/74 (101) 100 11/26/19 04:00 30 11/26/19 04:00 Mechanical Ventilator 11/26/19 04:00 99 11/26/19 03:42 104 25 30 11/26/19 03:00 98.5 90 20 122/59 (80) 100 11/26/19 02:00 96 17 143/41 (75) 100 11/26/19 01:36 92 24 30 11/26/19 01:15 121/59 11/26/19 01:00 88 21 121/59 (79) 99 11/26/19 00:00 92 19 122/55 (77) 99 11/26/19 00:00 Mechanical Ventilator 11/26/19 00:00 93 11/25/19 23:03 92 20 30 11/25/19 23:00 93 24 127/59 (81) 100 11/25/19 22:00 89 22 111/55 (73) 99 11/25/19 21:16 94 25 30 11/25/19 21:00 93 20 113/51 (71) 100 11/25/19 20:00 30 11/25/19 20:00 Mechanical Ventilator 11/25/19 20:00 93 11/25/19 20:00 97 26 137/66 (89) 100 11/25/19 19:12 90 23 30 11/25/19 19:00 98.4 90 21 118/51 (73) 100 11/25/19 18:00 91 21 131/60 (83) 100 11/25/19 17:00 90 21 121/51 (74) 99 11/25/19 16:37 92 20 30 11/25/19 16:00 98.4 94 20 113/52 (72) 97 11/25/19 16:00 Mechanical Ventilator 11/25/19 16:00 30 11/25/19 16:00 90 11/25/19 15:28 112 21 30 11/25/19 15:00 94 21 128/61 (83) 100 11/25/19 14:33 97 26 30 11/25/19 14:00 97 23 129/92 (104) 11/25/19 13:00 98.8 88 20 116/55 (75) 100 11/25/19 12:45 85 17 30 11/25/19 12:00 84 11/25/19 12:00 Mechanical Ventilator 11/25/19 12:00 30 11/25/19 12:00 88 19 114/57 (76) 100 Intake and Output 11/25/19 11/26/19 19:00 07:00 Intake Total 1420 ml 1110 ml Output Total 455 ml 480 ml Balance 965 ml 630 ml Intake Free Water 50 ml IV Total 1000 ml 700 ml Tube Feeding 360 ml 360 ml Other 60 ml Output Urine Total 455 ml 480 ml # Bowel Movements 3 1 Laboratory Tests 11/26/19 05:30: White Blood Count 8.8, Red Blood Count 2.73L, Hemoglobin 7.6L, Hematocrit 23.4L , Mean Corpuscular Volume 86, Mean Corpuscular Hemoglobin 27.8, Mean Corpuscular Hemoglobin Concent 32.4, Red Cell Distribution Width 14.5, Platelet Count 195, Mean Platelet Volume 4.5L, Neutrophils (%) (Auto) , Lymphocytes (%) ( Auto) , Monocytes (%) (Auto) , Eosinophils (%) (Auto) , Basophils (%) (Auto) , Neutrophils % (Manual) [Pending], Lymphocytes % (Manual) [Pending], Platelet Estimate [Pending], Platelet Morphology [Pending], Sodium Level 151H, Potassium Level 2.9L, Chloride Level 115H, Carbon Dioxide Level 23, Anion Gap 13, Blood Urea Nitrogen 32H, Creatinine 2.6H, Estimat Glomerular Filtration Rate 21.5, Glucose Level 185H, Calcium Level 7.3L Height (Feet): 5 Height (Inches): 3.00 Weight (Pounds): 172 Objective General Appearance: WD/WN, lethargic Neck: normal alignment, supple, normal inspection Cardiovascular: normal rate, regular rhythm Respiratory/Chest: no respiratory distress, no accessory muscle use, rhonchi - bilaterally Abdomen: normal bowel sounds, non tender, soft, no organomegaly, no mass Extremities: normal range of motion, non-tender Neurologic: unresponsive, aphasia Jeffrey Crowder MD Nov 26, 2019 11:01
--- NOTE | 2019-11-26 12:00 | NUR ---
NURSE NOTES: Pt's resting in bed, repositioned and oral care completed as scheduled. Will continue to monitor.
--- NOTE | 2019-11-26 13:00 | NUR ---
NURSE NOTES: Pt's daughter, Krystal, called and advised that she would like pt to be extubated on Thursday and made comfort care. Will let Dr. Crowder know.
--- NOTE | 2019-11-26 14:00 | NUR ---
NURSE NOTES: Pt becomes tachypneic at times, alarming the vent. Secretions are thick, often being suctioned. No distress noted. Pt appears to be comfortably laying in bed.
--- NOTE | 2019-11-26 14:09 | Pulmonolgy Critical Care Note ---
Critical Care - Asmt/Plan Assessment/Plan: Pulmonary CCM Progress Note Assessment/Plan Respiratory failure, acute on chronic. Alkalemia due to hyperventilation, chronic metabolic alkalosis, chronic respiratory acidosis, leukocytosis, sepsis, hyponatremia, hypokalemia, chronic renal failure, severe protein-calorie malnutrition. hyponatremia, Anemia PLAN care noted and reviewed ID noted and discussed respiratory care reviewed and weaning parameters Ventilatory support - AC and wean PRN discuss wean with RT/RN meds noted SNF meds supportive care suction and monitor imaging off load oxygen therapy and titrate prognosis not improved monitor skin exam monitor lytes; renal noted and reviewed hope to avoid trach; monitor parameters medications/laboratory data/nursing notes/ICU care reviewed in detail note reviewed and edited care discussed with RN and RT ICU time spent >40 minutes Critical Care - Subjective Interval Events: events noted difficulty with weaning on full support ICU care noted vitals and labs reviewed d/w staff ROS Limited/Unobtainable: Yes Condition: critical EKG Rhythm: Sinus Rhythm Residuals: minimal Tube Feeding Tolerated: yes Critical Care - Objective ET-Tube: 7.5 ET Position: 24 Vital Signs Noted Laboratory Tests Test 11/22/19 03:00 White Blood Count 11.0 K/UL (4.8-10.8) H Red Blood Count 3.34 M/UL (4.20-5.40) L Hemoglobin 9.3 G/DL (12.0-16.0) L Hematocrit 28.0 % (37.0-47.0) L Mean Corpuscular Volume 84 FL (80-99) Mean Corpuscular Hemoglobin 28.0 PG (27.0-31.0) Mean Corpuscular Hemoglobin Concent 33.4 G/DL (32.0-36.0) Red Cell Distribution Width 14.1 % (11.6-14.8) Platelet Count 234 K/UL (150-450) Mean Platelet Volume 4.5 FL (6.5-10.1) L Neutrophils (%) (Auto) 75.6 % (45.0-75.0) H Lymphocytes (%) (Auto) 13.8 % (20.0-45.0) L Monocytes (%) (Auto) 6.8 % (1.0-10.0) Eosinophils (%) (Auto) 3.5 % (0.0-3.0) H Basophils (%) (Auto) 0.3 % (0.0-2.0) Sodium Level 141 MMOL/L (136-145) Potassium Level 2.5 MMOL/L (3.5-5.1) *L Chloride Level 102 MMOL/L (98-107) Carbon Dioxide Level 17 MMOL/L (21-32) L Anion Gap 22 mmol/L (5-15) H Blood Urea Nitrogen 48 mg/dL (7-18) H Creatinine 4.0 MG/DL (0.55-1.30) H Estimat Glomerular Filtration Rate 13.1 mL/min (>60) Glucose Level 175 MG/DL (74-106) H Calcium Level 6.9 MG/DL (8.5-10.1) L Cortisol AM Sample 16.1 UG/DL Objective: WDWN ETT in place reduced LOC as prior reduced breath sounds bilaterally without rhonchi or wheeze [id number] without MRG NABS nontender no HSM; no distention feeding tube in place no CC some edema overall same skin noted nonfocal with reduced ROM reviewed and edited Critical Care - Objective Last 24 Hour Vital Signs Date Time Temp Pulse Resp B/P (MAP) Pulse Ox O2 Delivery O2 Flow Rate FiO2 11/26/19 14:00 97 19 120/59 (79) 100 11/26/19 13:00 100 25 161/81 (107) 100 11/26/19 12:55 92 23 30 11/26/19 12:00 Mechanical Ventilator 11/26/19 12:00 106 11/26/19 12:00 99.4 95 18 127/58 (81) 100 11/26/19 12:00 30 11/26/19 11:00 113 20 184/101 (128) 100 11/26/19 10:57 115 32 30 11/26/19 10:00 93 21 136/76 (96) 100 11/26/19 09:00 116 17 139/59 (85) 100 11/26/19 08:49 110 39 30 11/26/19 08:48 100 11/26/19 08:00 Mechanical Ventilator 11/26/19 08:00 99.3 104 12 144/70 (94) 100 11/26/19 08:00 30 11/26/19 08:00 110 11/26/19 07:01 105 32 30 11/26/19 07:00 103 30 146/72 (96) 100 11/26/19 06:30 98 18 11/26/19 06:00 103 26 148/67 (94) 100 11/26/19 05:18 100 17 30 11/26/19 05:00 99 1 139/61 (87) 100 11/26/19 04:00 104 31 156/74 (101) 100 11/26/19 04:00 30 11/26/19 04:00 Mechanical Ventilator 11/26/19 04:00 99 11/26/19 03:42 104 25 30 11/26/19 03:00 98.5 90 20 122/59 (80) 100 11/26/19 02:00 96 17 143/41 (75) 100 11/26/19 01:36 92 24 30 11/26/19 01:15 121/59 11/26/19 01:00 88 21 121/59 (79) 99 11/26/19 00:00 92 19 122/55 (77) 99 11/26/19 00:00 Mechanical Ventilator 11/26/19 00:00 93 11/25/19 23:03 92 20 30 11/25/19 23:00 93 24 127/59 (81) 100 11/25/19 22:00 89 22 111/55 (73) 99 11/25/19 21:16 94 25 30 11/25/19 21:00 93 20 113/51 (71) 100 11/25/19 20:00 30 11/25/19 20:00 Mechanical Ventilator 11/25/19 20:00 93 11/25/19 20:00 97 26 137/66 (89) 100 11/25/19 19:12 90 23 30 11/25/19 19:00 98.4 90 21 118/51 (73) 100 11/25/19 18:00 91 21 131/60 (83) 100 11/25/19 17:00 90 21 121/51 (74) 99 11/25/19 16:37 92 20 30 11/25/19 16:00 98.4 94 20 113/52 (72) 97 11/25/19 16:00 Mechanical Ventilator 11/25/19 16:00 30 11/25/19 16:00 90 11/25/19 15:28 112 21 30 11/25/19 15:00 94 21 128/61 (83) 100 11/25/19 14:33 97 26 30 Accucheck: 201 Critical Care - Subjective ROS Limited/Unobtainable: No FI02: 30 Vent Support Breath Rate: 12 Vent Support Mode: AC Vent Tidal Volume: 350 Sputum Amount: Small PEEP: 5.0 PIP: 35 Tube Feeding Amount: 30 I&O: Intake and Output 11/25/19 11/26/19 19:00 07:00 Intake Total 1420 ml 1110 ml Output Total 455 ml 480 ml Balance 965 ml 630 ml Intake Free Water 50 ml IV Total 1000 ml 700 ml Tube Feeding 360 ml 360 ml Other 60 ml Output Urine Total 455 ml 480 ml # Bowel Movements 3 1 ET-Tube: 7.5 ET Position: 24 Kavon Seals MD Nov 26, 2019 14:09
--- NOTE | 2019-11-26 17:35 | NUR ---
NURSE NOTES: Pt fully cleaned after a large soft brown BM. Pt repositioned and oral care completed. Thick secretions suctioned. No distress noted.
[2019-11-26] MEDS: 1/2NS w/KCl 20mEq 1000ml 1,000 ML IV SCH (18:40)
--- NOTE | 2019-11-26 18:45 | Progress Note ---
DATE: 11/26/2019 CARDIOLOGY PROGRESS NOTE SUBJECTIVE: The patient remains on ventilator support. Off pressors now for 2 days. Urine output is improved. Dopamine has been discontinued. She has not been weanable as of yet. OBJECTIVE: VITAL SIGNS: Blood pressure 139/59, pulse 116, and respirations 17. Afebrile. LUNGS: Bilateral breath sounds. Scattered rhonchi. Orally intubated. CARDIAC: Regular rhythm and rate. Normal S1, S2. ABDOMEN: Soft. GJ-tube intact. EXTREMITIES: Trace edema. LABORATORY DATA: White count 8.8, hemoglobin 7.6, and platelet count 195,000. Sodium 151, potassium 2.9, chloride 115, bicarb 23, BUN 32, and creatinine 2.6. IMPRESSION: 1. Respiratory failure. 2. Dehydration. 3. Hypernatremia. 4. Hyperchloremia. 5. Hypokalemia with acute renal failure, improved. 6. Acute on chronic diastolic congestive heart failure. 7. Severe protein-calorie malnutrition. 8. Hypothyroidism. 9. Advanced dementia. PLAN: 1. Potassium replacement. 2. Free water replacement via IV route. 3. No need for pressors. 4. No need for diuretics. 5. Thyroid replacement ongoing via G-tube as well as protein supplements and nutrition. 6. Weaning efforts are ongoing as well, however, the patient may ultimately require trach or be considered for terminal extubation. Kavon Peña M.D. DR: RICHY JOB#: [id number] CC:
--- NOTE | 2019-11-26 19:27 | NUR ---
HAND-OFF: Report given to FELY Kelly.
--- NOTE | 2019-11-26 19:28 | NUR ---
NURSE NOTES: Endorsement received from FELY Hawley. Patient obtunded. Orally intubated with ETT 7.5, 24 lipline. AC 12, 350, PEEP 5, 30% FiO2. GT patent and intact. Receiving Nepro 30ml/hr. No residual. Barron catheter in place. Left upper arm PICC present, receiving 1/2 NS + KCl 20 meq at 75 ml/hr. SCDs in place. On P200 mattress. Head of bed elevated. Bed locked and in low position. Call light within reach. Bed alarm on. Seizure precautions implemented.
--- NOTE | 2019-11-26 20:05 | Surgery Progress Note ---
Surgery Progress Note Subjective Additional Comments Patient seen and examined bedside. No acute events. Ill-appearing in ICU. No functional movements made. On ventilatory support. Labs noted. Objective Last 24 Hour Vital Signs Date Time Temp Pulse Resp B/P (MAP) Pulse Ox O2 Delivery O2 Flow Rate FiO2 11/26/19 19:00 93 20 144/67 (92) 100 11/26/19 18:00 93 23 154/81 (105) 100 11/26/19 17:07 93 16 30 11/26/19 17:00 94 20 153/71 (98) 95 11/26/19 16:00 30 11/26/19 16:00 Mechanical Ventilator 11/26/19 16:00 90 11/26/19 16:00 98.9 91 21 148/70 (96) 100 11/26/19 15:00 91 19 148/70 (96) 100 11/26/19 14:53 98 31 30 11/26/19 14:00 97 19 120/59 (79) 100 11/26/19 13:00 100 25 161/81 (107) 100 11/26/19 12:55 92 23 30 11/26/19 12:00 Mechanical Ventilator 11/26/19 12:00 106 11/26/19 12:00 99.4 95 18 127/58 (81) 100 11/26/19 12:00 30 11/26/19 11:00 113 20 184/101 (128) 100 11/26/19 10:57 115 32 30 11/26/19 10:00 93 21 136/76 (96) 100 11/26/19 09:00 116 17 139/59 (85) 100 11/26/19 08:49 110 39 30 11/26/19 08:48 100 11/26/19 08:00 Mechanical Ventilator 11/26/19 08:00 99.3 104 12 144/70 (94) 100 11/26/19 08:00 30 11/26/19 08:00 110 11/26/19 07:01 105 32 30 11/26/19 07:00 103 30 146/72 (96) 100 11/26/19 06:30 98 18 11/26/19 06:00 103 26 148/67 (94) 100 11/26/19 05:18 100 17 30 11/26/19 05:00 99 1 139/61 (87) 100 11/26/19 04:00 104 31 156/74 (101) 100 11/26/19 04:00 30 11/26/19 04:00 Mechanical Ventilator 11/26/19 04:00 99 11/26/19 03:42 104 25 30 11/26/19 03:00 98.5 90 20 122/59 (80) 100 11/26/19 02:00 96 17 143/41 (75) 100 11/26/19 01:36 92 24 30 11/26/19 01:15 121/59 11/26/19 01:00 88 21 121/59 (79) 99 11/26/19 00:00 92 19 122/55 (77) 99 11/26/19 00:00 Mechanical Ventilator 11/26/19 00:00 93 11/25/19 23:03 92 20 30 11/25/19 23:00 93 24 127/59 (81) 100 11/25/19 22:00 89 22 111/55 (73) 99 11/25/19 21:16 94 25 30 11/25/19 21:00 93 20 113/51 (71) 100 I&O Intake and Output 11/25/19 11/26/19 19:00 07:00 Intake Total 1420 ml 1110 ml Output Total 455 ml 480 ml Balance 965 ml 630 ml Intake Free Water 50 ml IV Total 1000 ml 700 ml Tube Feeding 360 ml 360 ml Other 60 ml Output Urine Total 455 ml 480 ml # Bowel Movements 3 1 Dressing: other Wound: other Drains: other Cardiovascular: RSR Respiratory: decreased breath sounds Abdomen: soft, non-tender, present bowel sounds Extremities: no tenderness, no cyanosis Laboratory Tests Test 11/26/19 05:30 White Blood Count 8.8 K/UL (4.8-10.8) Red Blood Count 2.73 M/UL (4.20-5.40) L Hemoglobin 7.6 G/DL (12.0-16.0) L Hematocrit 23.4 % (37.0-47.0) L Mean Corpuscular Volume 86 FL (80-99) Mean Corpuscular Hemoglobin 27.8 PG (27.0-31.0) Mean Corpuscular Hemoglobin Concent 32.4 G/DL (32.0-36.0) Red Cell Distribution Width 14.5 % (11.6-14.8) Platelet Count 195 K/UL (150-450) Mean Platelet Volume 4.5 FL (6.5-10.1) L Neutrophils (%) (Auto) % (45.0-75.0) Lymphocytes (%) (Auto) % (20.0-45.0) Monocytes (%) (Auto) % (1.0-10.0) Eosinophils (%) (Auto) % (0.0-3.0) Basophils (%) (Auto) % (0.0-2.0) Differential Total Cells Counted 100 Neutrophils % (Manual) 68 % (45-75) Lymphocytes % (Manual) 22 % (20-45) Monocytes % (Manual) 7 % (1-10) Eosinophils % (Manual) 3 % (0-3) Basophils % (Manual) 0 % (0-2) Band Neutrophils 0 % (0-8) Platelet Estimate Adequate Platelet Morphology Normal Red Blood Cell Morphology Normal Sodium Level 151 MMOL/L (136-145) H Potassium Level 2.9 MMOL/L (3.5-5.1) L Chloride Level 115 MMOL/L (98-107) H Carbon Dioxide Level 23 MMOL/L (21-32) Anion Gap 13 mmol/L (5-15) Blood Urea Nitrogen 32 mg/dL (7-18) H Creatinine 2.6 MG/DL (0.55-1.30) H Estimat Glomerular Filtration Rate 21.5 mL/min (>60) Glucose Level 185 MG/DL (74-106) H Calcium Level 7.3 MG/DL (8.5-10.1) L Plan Problems: (1) Decubitus skin ulcer Assessment & Plan: Pt presented on admission with multiple pressure injuries. DTPI sacrum . Base of injury is indurated,purple with areas that are maroon in colour. An area of fluctuance noted at sacrococcygeal area. Borders are irregular (L)8.5cm x (W)9.3cm.Historical scar also noted within base of Sacral pressure injury. DTPI medial L heel. Base of injury fluctuant,maroon with surrounding non- blanching erythema. (L)1.7cm x (W)1.6cm. DTPI medial R heel. Base of injury is maroon and fluctuant(L)3.1cm x (W)2.5cm. Tx.Plan: Apply Moisture Barrier Paste to Sacrum. Cover with Optifoam drsg. Change every 3 days and prn. Apply Cavilon Skin Barrier to both heels. Cover each heel with Optifoam drsg. Change every 7 days and prn. APM/VALERIE Mattress. Reposition at least every 2 hours or as tolerated. Off-load heels with pillow. Patient is at high risk for deterioration of wounds opening of DTI and formation of worsening decubitus will need close monitoring and significant amount of care to ensure improvement. Nutritional optimization. Will follow with recommendations thank you (2) Failure to thrive in adult Assessment & Plan: Not tolerating tube feeds regurgitation high residuals DAILY ESTIMATED NEEDS: Needs based on Critical care, sepsis, wound, ARF/ 57.7kg abw 22-30 kcals/kg 2824-0082 total kcals 0.8-1.3 (increase w/ renal fxn improvement) g protein/kg 46-75 g total protein 25-30 mL/kg 3009-4389 total fluid mLs NUTRITION DIAGNOSIS: 1) Swallowing difficulty r/t dysphagia as evidenced by pt is Jtube dep, currently orally intubated, NPO. 2) Altered nutrition related lab values r/t respiratory failure, DM, ARF, sepsis as evidenced by COW >45*, elev pH 7.616*, elev K (7.2*), elev creat (8.8), elev BUN (178), elev BG (228), elev LA, elev wbc (22.2*) CURRENT TF:NPO ENTERAL NUTRITION RECOMMENDATIONS: Nepro @ 40ml/hr x 22 hrs to provide 880ml, 1584kcal, 71g prot, 640ml free water * Rec Nepro at this time given ARF, +hyperkalemia w/ creat 8.8. * When medically appropriate, initiate Nepro @ 20ml/hr x 6 hrs, advance 10ml q 4 -6 hrs as tolerated to goal rate * Hold 1 hr before and after Synthroid med * HOB over 30 degrees/ water flush per MD ---- W/ improved renal fxn and normalized lytes, rec Glucerna 1.2 @ 60ml/hr x 22 hrs to provide 1320ml, 1584 kcal, 79g pro, 1063ml free H2O ADDITIONAL RECOMMENDATIONS: 1) Monitor lytes and renal fxn closely -> admitted w/ creat > 8.0, creat previous adm < 2.0 -> K critically elev, s/p kayexalate. 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 (3) Acute respiratory failure Assessment & Plan: As per pulmonology available if trach needs dnr/dni family considering care plan not interested in trach at this time Jared Mcarthur Nov 26, 2019 20:05
--- NOTE | 2019-11-26 21:00 | NUR ---
NURSE NOTES: No signs and symptoms of pain or discomfort.
[2019-11-26] MEDS: Dyna-Hex 2% Top Sol 2oz TOPIC SCH (21:14)
--- NOTE | 2019-11-26 23:00 | NUR ---
NURSE NOTES: Tolerating feeding. Patient afebrile.
[2019-11-27] VITALS (24 sets, daily range): BP systolic 124–160; BP diastolic 51–96
[2019-11-27] MEDS: NovoLOG Insulin Flexpen SUBQ SCH ×4 (01:02→18:25)
--- NOTE | 2019-11-27 02:00 | NUR ---
NURSE NOTES: Bed bath, oral care, change of linens and dressings done.
--- NOTE | 2019-11-27 04:00 | NUR ---
NURSE NOTES: Patient repositioned. Secretions suctioned.
--- NOTE | 2019-11-27 05:51 | NUR ---
NURSE NOTES: Patient passed stool. Perineal care done.
[2019-11-27 07:07] LABS: HEMATOCRIT 23.7 % (37.0-47.0); HEMOGLOBIN 7.8 G/DL (12.0-16.0); MEAN CORPUSCULAR VOLUME 85 FL (80-99); PLATELET COUNT 201 K/UL (150-450); RED BLOOD COUNT 2.79 M/UL (4.20-5.40); RED CELL DISTRIBUTION WIDTH 14.5 % (11.6-14.8); WHITE BLOOD COUNT 11.2 K/UL (4.8-10.8)
--- NOTE | 2019-11-27 07:17 | NUR ---
HAND-OFF: Patient was seen and examined by Dr. Seals. Updated him of the blood clots and bloody secretion. Lab results still pending. No new order at this time. Report given to FELY Loco.
--- NOTE | 2019-11-27 07:26 | NUR ---
NURSE NOTES: Received report from FELY Kelly. Patient is obtunded and responsive to verbal, open her eyes without tracking. ETT 7.5/24cm with vent setting AC 12, VT 350, Peep 5 and FiO2 30%. Gtube intact and running with Ne@30ml/hr. Barron intact and draining with yellow color urine. Left upper arm PICC intact, clean and running with 1/2NS with KCL 20meq @ 75ml/hr. Kept dry, clean and comfortable. Will continue plan of care.
[2019-11-27 08:10] LABS: ALANINE AMINOTRANSFERASE 14 U/L (12-78); ALBUMIN 1.6 G/DL (3.4-5.0); ALBUMIN/GLOBULIN RATIO 0.4 (1.0-2.7); ALKALINE PHOSPHATASE 141 U/L (46-116); ANION GAP 11 mmol/L (5-15); ASPARTATE AMINO TRANSFERASE 22 U/L (15-37); BILIRUBIN,TOTAL 0.2 MG/DL (0.2-1.0); BLOOD UREA NITROGEN 31 mg/dL (7-18); CALCIUM 7.8 MG/DL (8.5-10.1); CARBON DIOXIDE 24 MMOL/L (21-32); CHLORIDE 113 MMOL/L (98-107); CREATININE 2.4 MG/DL (0.55-1.30); POTASSIUM 3.3 MMOL/L (3.5-5.1); SODIUM 148 MMOL/L (136-145)
--- NOTE | 2019-11-27 08:23 | NUR ---
NURSE NOTES: Informed Dr. Crowder that patient's K 3.3 today. New order read back and confirmed.
--- NOTE | 2019-11-27 08:30 | General Progress Note ---
Assessment/Plan Status: stable Assessment/Plan: Assessment/Plan Status: stable Assessment/Plan: Assessment - h/o gastroparesis and GT feed intolerance - GJ tube dislodged and replaced with G tube - Resp failure, intubated - OBS - Sepeis, shock - CRF - Poor Px Recommendations - continue TF - would hold if extubated - abx / supportive care - elevate HOB - can re-address G to J conversion once stabilized -pending possible terminal extubation for tomorrow Subjective ROS Limited/Unobtainable: No Allergies: Coded Allergies: No Known Allergies (Verified , 12/31/09) Objective Last 24 Hour Vital Signs Date Time Temp Pulse Resp B/P (MAP) Pulse Ox O2 Delivery O2 Flow Rate FiO2 11/27/19 07:00 94 0 139/64 (89) 100 11/27/19 06:59 94 30 30 11/27/19 06:16 100 20 11/27/19 06:00 93 16 152/72 (98) 100 11/27/19 05:25 94 30 30 11/27/19 05:00 91 17 158/77 (104) 100 11/27/19 04:00 Mechanical Ventilator 11/27/19 04:00 98.5 86 7 137/61 (86) 100 11/27/19 04:00 30 11/27/19 04:00 91 11/27/19 03:25 90 30 30 11/27/19 03:00 92 9 149/83 (105) 91 11/27/19 02:00 86 14 137/64 (88) 93 11/27/19 01:30 95 32 30 11/27/19 01:00 87 17 151/68 (95) 100 11/27/19 00:00 96 11/27/19 00:00 98.7 95 22 147/77 (100) 93 11/27/19 00:00 30 11/27/19 00:00 Mechanical Ventilator 11/26/19 23:30 100 21 30 11/26/19 23:00 88 19 153/83 (106) 100 11/26/19 22:00 89 20 147/84 (105) 100 11/26/19 21:30 90 18 30 11/26/19 21:00 98 20 162/75 (104) 100 11/26/19 20:00 Mechanical Ventilator 11/26/19 20:00 98.5 93 20 154/69 (97) 99 11/26/19 20:00 94 11/26/19 20:00 30 11/26/19 19:30 90 16 30 11/26/19 19:00 93 20 144/67 (92) 100 11/26/19 18:00 93 23 154/81 (105) 100 11/26/19 17:07 93 16 30 11/26/19 17:00 94 20 153/71 (98) 95 11/26/19 16:00 30 11/26/19 16:00 Mechanical Ventilator 11/26/19 16:00 90 11/26/19 16:00 98.9 91 21 148/70 (96) 100 11/26/19 15:00 91 19 148/70 (96) 100 11/26/19 14:53 98 31 30 11/26/19 14:00 97 19 120/59 (79) 100 11/26/19 13:00 100 25 161/81 (107) 100 11/26/19 12:55 92 23 30 11/26/19 12:00 Mechanical Ventilator 11/26/19 12:00 106 11/26/19 12:00 99.4 95 18 127/58 (81) 100 11/26/19 12:00 30 11/26/19 11:00 113 20 184/101 (128) 100 11/26/19 10:57 115 32 30 11/26/19 10:00 93 21 136/76 (96) 100 11/26/19 09:00 116 17 139/59 (85) 100 11/26/19 08:49 110 39 30 11/26/19 08:48 100 Intake and Output 11/26/19 11/27/19 19:00 07:00 Intake Total 1235 ml 1360 ml Output Total 2105 ml 1050 ml Balance -870 ml 310 ml IV Total 875 ml 1000 ml Tube Feeding 360 ml 360 ml Output Urine Total 2105 ml 1050 ml # Bowel Movements 2 Laboratory Tests 11/27/19 05:00: White Blood Count 11.2H, Red Blood Count 2.79L, Hemoglobin 7.8L, Hematocrit 23.7L, Mean Corpuscular Volume 85, Mean Corpuscular Hemoglobin 27.9, Mean Corpuscular Hemoglobin Concent 32.9, Red Cell Distribution Width 14.5, Platelet Count 201, Mean Platelet Volume 5.4L, Neutrophils (%) (Auto) , Lymphocytes (%) ( Auto) , Monocytes (%) (Auto) , Eosinophils (%) (Auto) , Basophils (%) (Auto) , Neutrophils % (Manual) [Pending], Lymphocytes % (Manual) [Pending], Platelet Estimate [Pending], Platelet Morphology [Pending], Sodium Level 148H, Potassium Level 3.3L, Chloride Level 113H, Carbon Dioxide Level 24, Anion Gap 11, Blood Urea Nitrogen 31H, Creatinine 2.4H, Estimat Glomerular Filtration Rate 23.5, Glucose Level 160H, Calcium Level 7.8L, Total Bilirubin 0.2, Aspartate Amino Transf (AST/SGOT) 22, Alanine Aminotransferase (ALT/SGPT) 14, Alkaline Phosphatase 141H, Total Protein 6.1L, Albumin 1.6L, Globulin 4.5, Albumin/ Globulin Ratio 0.4L Height (Feet): 5 Height (Inches): 3.00 Weight (Pounds): 175 General Appearance: lethargic EENT: normal ENT inspection Neck: supple Cardiovascular: normal rate Respiratory/Chest: decreased breath sounds Abdomen: normal bowel sounds, non tender, soft Extremities: non-tender Eder Sims MD Nov 27, 2019 08:30
[2019-11-27] MEDS: Pantoprazole Inj IVP SCH (08:36)
[2019-11-27] MEDS: levETIRAcetam 500mg/NS100ml 100 ML IVPB SCH ×2 (08:36→21:14)
[2019-11-27] MEDS: 1/2NS w/KCl 20mEq 1000ml 1,000 ML IV SCH ×2 (08:36→21:14)
[2019-11-27] MEDS ORDERED: Tubing IV Secondary IV ONE (09:50)
[2019-11-27] MEDS ORDERED: NS 275ml ONE (09:50)
--- NOTE | 2019-11-27 10:18 | General Progress Note ---
Assessment/Plan Problem List: (1) Shock ICD Codes: R57.9 - Shock, unspecified SNOMED: 09789114 (2) Anemia due to acute blood loss ICD Codes: D62 - Acute posthemorrhagic anemia SNOMED: 722344074 (3) Hyperkalemia ICD Codes: E87.5 - Hyperkalemia SNOMED: 93684908 (4) Recurrent seizures ICD Codes: G40.909 - Epilepsy, unspecified, not intractable, without status epilepticus SNOMED: 12881080, 15005575 (5) Aspiration pneumonia ICD Codes: J69.0 - Pneumonitis due to inhalation of food and vomit SNOMED: 581827481 (6) ARF (acute renal failure) ICD Codes: N17.9 - Acute kidney failure, unspecified SNOMED: 92094512 (7) ATN (acute tubular necrosis) ICD Codes: N17.0 - Acute kidney failure with tubular necrosis SNOMED: 06130377 Status: stable Assessment/Plan: cont vent support resp care suctioning as needed iv abx pressors at renal dose lasix x1 monitor renal fxn monitor labs and cbc transfuse as needed critical and guarded grim prognosis family considering withdrawl of care still dnr. family reconsidering dni Subjective ROS Limited/Unobtainable: Yes Constitutional: Reports: malaise, weakness HEENT: Reports: no symptoms Cardiovascular: Reports: edema Respiratory: Reports: shortness of breath, sputum Gastrointestinal/Abdominal: Reports: difficulty swallowing Genitourinary: Reports: no symptoms Neurologic/Psychiatric: Reports: anxiety Endocrine: Reports: no symptoms Hematologic/Lymphatic: Reports: anemia Allergies: Coded Allergies: No Known Allergies (Verified , 12/31/09) All Systems: reviewed and negative except above Subjective bp improved. off dopamine due to high bp. good uop. no fevers. GT replaced. renal fxn improving. family declined HD. renal fxn and urine output improving. decrease h/h noted. +edema Objective Last 24 Hour Vital Signs Date Time Temp Pulse Resp B/P (MAP) Pulse Ox O2 Delivery O2 Flow Rate FiO2 11/27/19 09:18 92 27 40 11/27/19 07:00 94 0 139/64 (89) 100 11/27/19 06:59 94 30 30 11/27/19 06:16 100 20 11/27/19 06:00 93 16 152/72 (98) 100 11/27/19 05:25 94 30 30 11/27/19 05:00 91 17 158/77 (104) 100 11/27/19 04:00 Mechanical Ventilator 11/27/19 04:00 98.5 86 7 137/61 (86) 100 11/27/19 04:00 30 11/27/19 04:00 91 11/27/19 03:25 90 30 30 11/27/19 03:00 92 9 149/83 (105) 91 11/27/19 02:00 86 14 137/64 (88) 93 11/27/19 01:30 95 32 30 11/27/19 01:00 87 17 151/68 (95) 100 11/27/19 00:00 96 11/27/19 00:00 98.7 95 22 147/77 (100) 93 11/27/19 00:00 30 11/27/19 00:00 Mechanical Ventilator 11/26/19 23:30 100 21 30 11/26/19 23:00 88 19 153/83 (106) 100 11/26/19 22:00 89 20 147/84 (105) 100 11/26/19 21:30 90 18 30 11/26/19 21:00 98 20 162/75 (104) 100 11/26/19 20:00 Mechanical Ventilator 11/26/19 20:00 98.5 93 20 154/69 (97) 99 11/26/19 20:00 94 11/26/19 20:00 30 11/26/19 19:30 90 16 30 11/26/19 19:00 93 20 144/67 (92) 100 11/26/19 18:00 93 23 154/81 (105) 100 11/26/19 17:07 93 16 30 11/26/19 17:00 94 20 153/71 (98) 95 11/26/19 16:00 30 11/26/19 16:00 Mechanical Ventilator 11/26/19 16:00 90 11/26/19 16:00 98.9 91 21 148/70 (96) 100 11/26/19 15:00 91 19 148/70 (96) 100 11/26/19 14:53 98 31 30 11/26/19 14:00 97 19 120/59 (79) 100 11/26/19 13:00 100 25 161/81 (107) 100 11/26/19 12:55 92 23 30 11/26/19 12:00 Mechanical Ventilator 11/26/19 12:00 106 11/26/19 12:00 99.4 95 18 127/58 (81) 100 11/26/19 12:00 30 11/26/19 11:00 113 20 184/101 (128) 100 11/26/19 10:57 115 32 30 Intake and Output 11/26/19 11/27/19 19:00 07:00 Intake Total 1235 ml 1360 ml Output Total 2105 ml 1050 ml Balance -870 ml 310 ml IV Total 875 ml 1000 ml Tube Feeding 360 ml 360 ml Output Urine Total 2105 ml 1050 ml # Bowel Movements 2 Laboratory Tests 11/27/19 05:00: White Blood Count 11.2H, Red Blood Count 2.79L, Hemoglobin 7.8L, Hematocrit 23.7L, Mean Corpuscular Volume 85, Mean Corpuscular Hemoglobin 27.9, Mean Corpuscular Hemoglobin Concent 32.9, Red Cell Distribution Width 14.5, Platelet Count 201, Mean Platelet Volume 5.4L, Neutrophils (%) (Auto) , Lymphocytes (%) ( Auto) , Monocytes (%) (Auto) , Eosinophils (%) (Auto) , Basophils (%) (Auto) , Neutrophils % (Manual) [Pending], Lymphocytes % (Manual) [Pending], Platelet Estimate [Pending], Platelet Morphology [Pending], Sodium Level 148H, Potassium Level 3.3L, Chloride Level 113H, Carbon Dioxide Level 24, Anion Gap 11, Blood Urea Nitrogen 31H, Creatinine 2.4H, Estimat Glomerular Filtration Rate 23.5, Glucose Level 160H, Calcium Level 7.8L, Total Bilirubin 0.2, Aspartate Amino Transf (AST/SGOT) 22, Alanine Aminotransferase (ALT/SGPT) 14, Alkaline Phosphatase 141H, Total Protein 6.1L, Albumin 1.6L, Globulin 4.5, Albumin/ Globulin Ratio 0.4L Height (Feet): 5 Height (Inches): 3.00 Weight (Pounds): 175 Objective General Appearance: WD/WN, lethargic Neck: normal alignment, supple, normal inspection Cardiovascular: normal rate, regular rhythm Respiratory/Chest: no respiratory distress, no accessory muscle use, rhonchi - bilaterally Abdomen: normal bowel sounds, non tender, soft, no organomegaly, no mass Extremities: normal range of motion, non-tender Neurologic: unresponsive, aphasia Jeffrey Crowder MD Nov 27, 2019 10:18
--- NOTE | 2019-11-27 10:40 | Infectious Diseases Prog Note ---
Assessment/Plan Assessment/Plan A 1. Staph aureus & E. coli pneumonia treated 2. Acute renal failure 3. diabetes mellitus 4. CHF 5. CVA 6.Acute respiratory failure 7. 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 will have terminal extubation tomorrow Subjective ROS Limited/Unobtainable: Yes Constitutional: Denies: fever Allergies: Coded Allergies: No Known Allergies (Verified , 12/31/09) Objective Vital Signs Last 24 Hour Vital Signs Date Time Temp Pulse Resp B/P (MAP) Pulse Ox O2 Delivery O2 Flow Rate FiO2 11/27/19 10:35 91 26 70 11/27/19 09:18 92 27 40 11/27/19 07:00 94 0 139/64 (89) 100 11/27/19 06:59 94 30 30 11/27/19 06:16 100 20 11/27/19 06:00 93 16 152/72 (98) 100 11/27/19 05:25 94 30 30 11/27/19 05:00 91 17 158/77 (104) 100 11/27/19 04:00 Mechanical Ventilator 11/27/19 04:00 98.5 86 7 137/61 (86) 100 11/27/19 04:00 30 11/27/19 04:00 91 11/27/19 03:25 90 30 30 11/27/19 03:00 92 9 149/83 (105) 91 11/27/19 02:00 86 14 137/64 (88) 93 11/27/19 01:30 95 32 30 11/27/19 01:00 87 17 151/68 (95) 100 11/27/19 00:00 96 11/27/19 00:00 98.7 95 22 147/77 (100) 93 11/27/19 00:00 30 11/27/19 00:00 Mechanical Ventilator 11/26/19 23:30 100 21 30 11/26/19 23:00 88 19 153/83 (106) 100 11/26/19 22:00 89 20 147/84 (105) 100 11/26/19 21:30 90 18 30 11/26/19 21:00 98 20 162/75 (104) 100 11/26/19 20:00 Mechanical Ventilator 11/26/19 20:00 98.5 93 20 154/69 (97) 99 11/26/19 20:00 94 11/26/19 20:00 30 11/26/19 19:30 90 16 30 11/26/19 19:00 93 20 144/67 (92) 100 11/26/19 18:00 93 23 154/81 (105) 100 11/26/19 17:07 93 16 30 11/26/19 17:00 94 20 153/71 (98) 95 11/26/19 16:00 30 11/26/19 16:00 Mechanical Ventilator 11/26/19 16:00 90 11/26/19 16:00 98.9 91 21 148/70 (96) 100 11/26/19 15:00 91 19 148/70 (96) 100 11/26/19 14:53 98 31 30 11/26/19 14:00 97 19 120/59 (79) 100 11/26/19 13:00 100 25 161/81 (107) 100 11/26/19 12:55 92 23 30 11/26/19 12:00 Mechanical Ventilator 11/26/19 12:00 106 11/26/19 12:00 99.4 95 18 127/58 (81) 100 11/26/19 12:00 30 11/26/19 11:00 113 20 184/101 (128) 100 11/26/19 10:57 115 32 30 Height (Feet): 5 Height (Inches): 3.00 Weight (Pounds): 175 HEENT: other - orally intubated, lower lip swelling Respiratory/Chest: lungs clear, other - on ventilator Cardiovascular: normal rate, other - left arm PICC line Abdomen: soft, non tender Extremities: other - edema more in upper extremities Neurologic/Psychiatric: disoriented, other - opens eyes Laboratory Tests Test 11/27/19 05:00 White Blood Count 11.2 K/UL (4.8-10.8) H Red Blood Count 2.79 M/UL (4.20-5.40) L Hemoglobin 7.8 G/DL (12.0-16.0) L Hematocrit 23.7 % (37.0-47.0) L Mean Corpuscular Volume 85 FL (80-99) Mean Corpuscular Hemoglobin 27.9 PG (27.0-31.0) Mean Corpuscular Hemoglobin Concent 32.9 G/DL (32.0-36.0) Red Cell Distribution Width 14.5 % (11.6-14.8) Platelet Count 201 K/UL (150-450) Mean Platelet Volume 5.4 FL (6.5-10.1) L Neutrophils (%) (Auto) % (45.0-75.0) Lymphocytes (%) (Auto) % (20.0-45.0) Monocytes (%) (Auto) % (1.0-10.0) Eosinophils (%) (Auto) % (0.0-3.0) Basophils (%) (Auto) % (0.0-2.0) Differential Total Cells Counted 100 Neutrophils % (Manual) 70 % (45-75) Lymphocytes % (Manual) 15 % (20-45) L Monocytes % (Manual) 12 % (1-10) H Eosinophils % (Manual) 2 % (0-3) Basophils % (Manual) 1 % (0-2) Band Neutrophils 0 % (0-8) Platelet Estimate Adequate Platelet Morphology Normal Hypochromasia 1+ Anisocytosis 1+ Sodium Level 148 MMOL/L (136-145) H Potassium Level 3.3 MMOL/L (3.5-5.1) L Chloride Level 113 MMOL/L (98-107) H Carbon Dioxide Level 24 MMOL/L (21-32) Anion Gap 11 mmol/L (5-15) Blood Urea Nitrogen 31 mg/dL (7-18) H Creatinine 2.4 MG/DL (0.55-1.30) H Estimat Glomerular Filtration Rate 23.5 mL/min (>60) Glucose Level 160 MG/DL (74-106) H Calcium Level 7.8 MG/DL (8.5-10.1) L Total Bilirubin 0.2 MG/DL (0.2-1.0) Aspartate Amino Transf (AST/SGOT) 22 U/L (15-37) Alanine Aminotransferase (ALT/SGPT) 14 U/L (12-78) Alkaline Phosphatase 141 U/L (46-116) H Total Protein 6.1 G/DL (6.4-8.2) L Albumin 1.6 G/DL (3.4-5.0) L Globulin 4.5 g/dL Albumin/Globulin Ratio 0.4 (1.0-2.7) L Current Medications Medications (Trade) Dose Ordered Sig/Aaron Route PRN Reason Start Time Stop Time Status Last Admin Dose Admin Acetaminophen (Tylenol) 650 mg Q4H PRN GT Mild Pain/Temp > 100.5 11/17/19 07:30 12/17/19 07:29 11/25/19 09:59 Chlorhexidine Gluconate (Arabella-Hex 2%) 1 applic DAILY@2000 TOPIC 11/15/19 20:00 12/15/19 19:59 11/26/19 21:14 Dextrose (Dextrose 50%) 25 ml Q30M PRN IV Hypoglycemia 11/14/19 19:00 12/14/19 18:59 Dextrose (Dextrose 50%) 50 ml Q30M PRN IV Hypoglycemia 11/14/19 19:00 12/14/19 18:59 Insulin Aspart (NovoLOG) Q6HR SUBQ 11/15/19 00:00 12/14/19 20:59 11/27/19 05:33 Levetiracetam 100 ml @ 400 mls/hr Q12HR IVPB 11/14/19 15:00 12/14/19 14:59 11/27/19 08:36 Lorazepam (Ativan 2mg/ml 1ml) 2 mg Q1H PRN IV For Seizures 11/20/19 14:00 11/27/19 13:59 11/25/19 09:59 Pantoprazole (Protonix) 40 mg DAILY IVP 11/14/19 14:15 12/14/19 14:14 11/27/19 08:36 Sodium 1,000 ml @ 75 mls/hr [id number] IV 11/26/19 19:00 12/26/19 18:59 11/27/19 08:36 Bay Richter MD Nov 27, 2019 10:40
--- NOTE | 2019-11-27 11:06 | Pulmonolgy Critical Care Note ---
Critical Care - Asmt/Plan Assessment/Plan: Pulmonary CCM Progress Note Assessment/Plan Respiratory failure, acute on chronic. Alkalemia due to hyperventilation, chronic metabolic alkalosis, chronic respiratory acidosis, leukocytosis, sepsis, hyponatremia, hypokalemia, chronic renal failure, severe protein-calorie malnutrition. hyponatremia, Anemia PLAN care noted and reviewed ID noted and discussed respiratory care reviewed and weaning parameters Ventilatory support - AC and wean PRN discuss wean with RT/RN meds noted SNF meds supportive care suction and monitor imaging off load oxygen therapy and titrate prognosis not improved monitor skin exam monitor lytes; renal noted and reviewed hope to avoid trach; monitor parameters medications/laboratory data/nursing notes/ICU care reviewed in detail note reviewed and edited care discussed with RN and RT ICU time spent >40 minutes Critical Care - Subjective Interval Events: events noted difficulty with weaning on full support ICU care noted vitals and labs reviewed d/w staff ROS Limited/Unobtainable: Yes Condition: critical EKG Rhythm: Sinus Rhythm Residuals: minimal Tube Feeding Tolerated: yes Critical Care - Objective ET-Tube: 7.5 ET Position: 24 Vital Signs Noted Laboratory Tests Noted Objective: WDWN ETT in place reduced LOC as prior reduced breath sounds bilaterally without rhonchi or wheeze [id number] without MRG NABS nontender no HSM; no distention feeding tube in place no CC some edema overall same skin noted nonfocal with reduced ROM reviewed and edited Critical Care - Objective Last 24 Hour Vital Signs Date Time Temp Pulse Resp B/P (MAP) Pulse Ox O2 Delivery O2 Flow Rate FiO2 11/27/19 10:35 91 26 70 11/27/19 10:00 94 16 159/78 (105) 93 11/27/19 09:18 92 27 40 11/27/19 09:00 92 16 146/64 (91) 100 11/27/19 08:00 98.7 94 14 152/96 (114) 100 11/27/19 07:00 94 0 139/64 (89) 100 11/27/19 06:59 94 30 30 11/27/19 06:16 100 20 11/27/19 06:00 93 16 152/72 (98) 100 11/27/19 05:25 94 30 30 11/27/19 05:00 91 17 158/77 (104) 100 11/27/19 04:00 Mechanical Ventilator 11/27/19 04:00 98.5 86 7 137/61 (86) 100 11/27/19 04:00 30 11/27/19 04:00 91 11/27/19 03:25 90 30 30 11/27/19 03:00 92 9 149/83 (105) 91 11/27/19 02:00 86 14 137/64 (88) 93 11/27/19 01:30 95 32 30 11/27/19 01:00 87 17 151/68 (95) 100 11/27/19 00:00 96 11/27/19 00:00 98.7 95 22 147/77 (100) 93 11/27/19 00:00 30 11/27/19 00:00 Mechanical Ventilator 11/26/19 23:30 100 21 30 11/26/19 23:00 88 19 153/83 (106) 100 11/26/19 22:00 89 20 147/84 (105) 100 11/26/19 21:30 90 18 30 11/26/19 21:00 98 20 162/75 (104) 100 11/26/19 20:00 Mechanical Ventilator 11/26/19 20:00 98.5 93 20 154/69 (97) 99 11/26/19 20:00 94 11/26/19 20:00 30 11/26/19 19:30 90 16 30 11/26/19 19:00 93 20 144/67 (92) 100 11/26/19 18:00 93 23 154/81 (105) 100 11/26/19 17:07 93 16 30 11/26/19 17:00 94 20 153/71 (98) 95 11/26/19 16:00 30 11/26/19 16:00 Mechanical Ventilator 11/26/19 16:00 90 11/26/19 16:00 98.9 91 21 148/70 (96) 100 11/26/19 15:00 91 19 148/70 (96) 100 11/26/19 14:53 98 31 30 11/26/19 14:00 97 19 120/59 (79) 100 11/26/19 13:00 100 25 161/81 (107) 100 11/26/19 12:55 92 23 30 11/26/19 12:00 Mechanical Ventilator 11/26/19 12:00 106 11/26/19 12:00 99.4 95 18 127/58 (81) 100 11/26/19 12:00 30 Accucheck: 152 Critical Care - Subjective ROS Limited/Unobtainable: No FI02: 70 Vent Support Breath Rate: 12 Vent Support Mode: AC Vent Tidal Volume: 350 Sputum Amount: Small PEEP: 5.0 PIP: 30 Tube Feeding Amount: 30 I&O: Intake and Output 11/26/19 11/27/19 19:00 07:00 Intake Total 1235 ml 1360 ml Output Total 2105 ml 1050 ml Balance -870 ml 310 ml IV Total 875 ml 1000 ml Tube Feeding 360 ml 360 ml Output Urine Total 2105 ml 1050 ml # Bowel Movements 2 ET-Tube: 7.5 ET Position: 24 Kavon Seals MD Nov 27, 2019 11:06
--- NOTE | 2019-11-27 11:20 | NUR ---
NURSE NOTES: Verified KCL 20meq IV order with Dr. Seals. Canceled KCL 10meq x2 IV. Will continue plan of care.
--- NOTE | 2019-11-27 12:22 | NUR ---
NURSE NOTES: Repositioned patient. Kept dry, comfortable.
--- NOTE | 2019-11-27 14:23 | NUR ---
NURSE NOTES: Repositioned patient. Fio2 100%. O2 sat fluctuating 85%-100%. Patient is responsive to verbal. No change in LOC. Will continue to monitor closely.
--- NOTE | 2019-11-27 15:07 | Surgery Progress Note ---
Surgery Progress Note Subjective Additional Comments No improvement. Ill-appearing. On vent support. Discussed with staff. Plan for terminal extubation soon. Objective Last 24 Hour Vital Signs Date Time Temp Pulse Resp B/P (MAP) Pulse Ox O2 Delivery O2 Flow Rate FiO2 11/27/19 14:49 96 19 100 11/27/19 13:14 101 24 100 11/27/19 12:00 93 11/27/19 12:00 100 11/27/19 12:00 Mechanical Ventilator 11/27/19 11:06 100 11/27/19 10:35 91 26 70 11/27/19 10:00 94 16 159/78 (105) 93 11/27/19 09:18 92 27 40 11/27/19 09:00 92 16 146/64 (91) 100 11/27/19 08:00 98.7 94 14 152/96 (114) 100 11/27/19 08:00 30 11/27/19 08:00 94 11/27/19 08:00 Mechanical Ventilator 11/27/19 07:00 94 0 139/64 (89) 100 11/27/19 06:59 94 30 30 11/27/19 06:16 100 20 11/27/19 06:00 93 16 152/72 (98) 100 11/27/19 05:25 94 30 30 11/27/19 05:00 91 17 158/77 (104) 100 11/27/19 04:00 Mechanical Ventilator 11/27/19 04:00 98.5 86 7 137/61 (86) 100 11/27/19 04:00 30 11/27/19 04:00 91 11/27/19 03:25 90 30 30 11/27/19 03:00 92 9 149/83 (105) 91 11/27/19 02:00 86 14 137/64 (88) 93 11/27/19 01:30 95 32 30 11/27/19 01:00 87 17 151/68 (95) 100 11/27/19 00:00 96 11/27/19 00:00 98.7 95 22 147/77 (100) 93 11/27/19 00:00 30 11/27/19 00:00 Mechanical Ventilator 11/26/19 23:30 100 21 30 11/26/19 23:00 88 19 153/83 (106) 100 11/26/19 22:00 89 20 147/84 (105) 100 11/26/19 21:30 90 18 30 11/26/19 21:00 98 20 162/75 (104) 100 11/26/19 20:00 Mechanical Ventilator 11/26/19 20:00 98.5 93 20 154/69 (97) 99 11/26/19 20:00 94 11/26/19 20:00 30 11/26/19 19:30 90 16 30 11/26/19 19:00 93 20 144/67 (92) 100 11/26/19 18:00 93 23 154/81 (105) 100 11/26/19 17:07 93 16 30 11/26/19 17:00 94 20 153/71 (98) 95 11/26/19 16:00 30 11/26/19 16:00 Mechanical Ventilator 11/26/19 16:00 90 11/26/19 16:00 98.9 91 21 148/70 (96) 100 I&O Intake and Output 11/26/19 11/27/19 19:00 07:00 Intake Total 1235 ml 1360 ml Output Total 2105 ml 1050 ml Balance -870 ml 310 ml IV Total 875 ml 1000 ml Tube Feeding 360 ml 360 ml Output Urine Total 2105 ml 1050 ml # Bowel Movements 2 Dressing: other Wound: other Drains: other Cardiovascular: RSR Respiratory: decreased breath sounds Abdomen: soft, non-distended, decreased bowel sounds Extremities: no cyanosis Laboratory Tests Test 11/27/19 05:00 White Blood Count 11.2 K/UL (4.8-10.8) H Red Blood Count 2.79 M/UL (4.20-5.40) L Hemoglobin 7.8 G/DL (12.0-16.0) L Hematocrit 23.7 % (37.0-47.0) L Mean Corpuscular Volume 85 FL (80-99) Mean Corpuscular Hemoglobin 27.9 PG (27.0-31.0) Mean Corpuscular Hemoglobin Concent 32.9 G/DL (32.0-36.0) Red Cell Distribution Width 14.5 % (11.6-14.8) Platelet Count 201 K/UL (150-450) Mean Platelet Volume 5.4 FL (6.5-10.1) L Neutrophils (%) (Auto) % (45.0-75.0) Lymphocytes (%) (Auto) % (20.0-45.0) Monocytes (%) (Auto) % (1.0-10.0) Eosinophils (%) (Auto) % (0.0-3.0) Basophils (%) (Auto) % (0.0-2.0) Differential Total Cells Counted 100 Neutrophils % (Manual) 70 % (45-75) Lymphocytes % (Manual) 15 % (20-45) L Monocytes % (Manual) 12 % (1-10) H Eosinophils % (Manual) 2 % (0-3) Basophils % (Manual) 1 % (0-2) Band Neutrophils 0 % (0-8) Platelet Estimate Adequate Platelet Morphology Normal Hypochromasia 1+ Anisocytosis 1+ Sodium Level 148 MMOL/L (136-145) H Potassium Level 3.3 MMOL/L (3.5-5.1) L Chloride Level 113 MMOL/L (98-107) H Carbon Dioxide Level 24 MMOL/L (21-32) Anion Gap 11 mmol/L (5-15) Blood Urea Nitrogen 31 mg/dL (7-18) H Creatinine 2.4 MG/DL (0.55-1.30) H Estimat Glomerular Filtration Rate 23.5 mL/min (>60) Glucose Level 160 MG/DL (74-106) H Calcium Level 7.8 MG/DL (8.5-10.1) L Total Bilirubin 0.2 MG/DL (0.2-1.0) Aspartate Amino Transf (AST/SGOT) 22 U/L (15-37) Alanine Aminotransferase (ALT/SGPT) 14 U/L (12-78) Alkaline Phosphatase 141 U/L (46-116) H Total Protein 6.1 G/DL (6.4-8.2) L Albumin 1.6 G/DL (3.4-5.0) L Globulin 4.5 g/dL Albumin/Globulin Ratio 0.4 (1.0-2.7) L Plan Problems: (1) Decubitus skin ulcer Assessment & Plan: Pt presented on admission with multiple pressure injuries. DTPI sacrum . Base of injury is indurated,purple with areas that are maroon in colour. An area of fluctuance noted at sacrococcygeal area. Borders are irregular (L)8.5cm x (W)9.3cm.Historical scar also noted within base of Sacral pressure injury. DTPI medial L heel. Base of injury fluctuant,maroon with surrounding non- blanching erythema. (L)1.7cm x (W)1.6cm. DTPI medial R heel. Base of injury is maroon and fluctuant(L)3.1cm x (W)2.5cm. Tx.Plan: Apply Moisture Barrier Paste to Sacrum. Cover with Optifoam drsg. Change every 3 days and prn. Apply Cavilon Skin Barrier to both heels. Cover each heel with Optifoam drsg. Change every 7 days and prn. APM/VALERIE Mattress. Reposition at least every 2 hours or as tolerated. Off-load heels with pillow. Patient is at high risk for deterioration of wounds opening of DTI and formation of worsening decubitus will need close monitoring and significant amount of care to ensure improvement. Nutritional optimization. Will follow with recommendations thank you (2) Failure to thrive in adult Assessment & Plan: Not tolerating tube feeds regurgitation high residuals DAILY ESTIMATED NEEDS: Needs based on Critical care, sepsis, wound, ARF/ 57.7kg abw 22-30 kcals/kg [id number] total kcals 0.8-1.3 (increase w/ renal fxn improvement) g protein/kg 46-75 g total protein 25-30 mL/kg 3243-5399 total fluid mLs NUTRITION DIAGNOSIS: 1) Swallowing difficulty r/t dysphagia as evidenced by pt is Jtube dep, currently orally intubated, NPO. 2) Altered nutrition related lab values r/t respiratory failure, DM, ARF, sepsis as evidenced by COW >45*, elev pH 7.616*, elev K (7.2*), elev creat (8.8), elev BUN (178), elev BG (228), elev LA, elev wbc (22.2*) CURRENT TF:NPO ENTERAL NUTRITION RECOMMENDATIONS: Nepro @ 40ml/hr x 22 hrs to provide 880ml, 1584kcal, 71g prot, 640ml free water * Rec Nepro at this time given ARF, +hyperkalemia w/ creat 8.8. * When medically appropriate, initiate Nepro @ 20ml/hr x 6 hrs, advance 10ml q 4 -6 hrs as tolerated to goal rate * Hold 1 hr before and after Synthroid med * HOB over 30 degrees/ water flush per MD ---- W/ improved renal fxn and normalized lytes, rec Glucerna 1.2 @ 60ml/hr x 22 hrs to provide 1320ml, 1584 kcal, 79g pro, 1063ml free H2O ADDITIONAL RECOMMENDATIONS: 1) Monitor lytes and renal fxn closely -> admitted w/ creat > 8.0, creat previous adm < 2.0 -> K critically elev, s/p kayexalate. 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 (3) Acute respiratory failure Assessment & Plan: As per pulmonology available if trach needs dnr/dni family considering care plan not interested in trach at this time Additional Comments Plan for terminal extubation potentially as early as tomorrow. Jared Mcarthur Nov 27, 2019 15:07
--- NOTE | 2019-11-27 16:44 | NUR ---
NURSE NOTES: Bed bath given. Provided oral care.
--- NOTE | 2019-11-27 18:21 | NUR ---
NURSE NOTES: Repositioned patient. Still on same vent setting AC 12, VT 350, Peep 5 and FiO2 100%. O2 sat 100% on the monitor.
--- NOTE | 2019-11-27 19:10 | NUR ---
HAND-OFF: Report given to FELY Kelly. Endorsed plan of care.
--- NOTE | 2019-11-27 19:11 | NUR ---
NURSE NOTES: Endorsement received from FELY Loco. Patient obtunded. Generalized edema noted. Orally intubated with ETT 7.5, 24 lipline. AC 12, 350, PEEP 5, 100% FiO2. GT patent and intact. Receiving Nepro 30ml/hr. No residual. Barron catheter in place. Left upper arm PICC present, receiving 1/2 NS + KCl 20 meq at 75 ml/hr. On P200 mattress. Head of bed elevated. Bed locked and in low position. Call light within reach. Bed alarm on. Seizure precautions implemented.
--- NOTE | 2019-11-27 19:29 | Progress Note ---
DATE: 11/27/2019 SUBJECTIVE: The patient remains on ventilator support. Tolerating nutrition by feeding tube. No residuals. PHYSICAL EXAMINATION: VITAL SIGNS: Blood pressure 139/64, heart rate 94, respiratory rate 20 to 30, afebrile. HEENT: Orally intubated. Thin secretions. LUNGS: Bilateral rhonchi. CARDIAC: Regular rhythm and rate. Normal S1, S2. ABDOMEN: Soft. EXTREMITIES: Trace edema. LABORATORY DATA: White count 11.2, hemoglobin 7.8. Sodium 148, potassium 3.3, bicarb 24, BUN 31, creatinine 2.4. Albumin 1.6. IMPRESSION: 1. Respiratory failure. 2. Recovering sepsis with shock. 3. Acute renal failure, improving. 4. Severe protein-calorie malnutrition with feeding tube. 5. Acute on chronic diastolic congestive heart failure. 6. Dehydration. 7. Hypernatremia. 8. Hyperchloremia. 9. Hypokalemia. 10. Anemia, worsening. PLAN: 1. Cautious potassium replacement. 2. Recheck magnesium. 3. Hypotonic IV fluid hydration with caution. 4. Close monitoring of volume status and cardiorenal parameters. 5. Nutrition by feeding tube. 6. Weaning as able. 7. Insulin coverage by sliding scale. 8. Presently off all antihypertensives. 9. We will adjust based on clinical parameters. Kavon Peña M.D. DR: ESTHELA JOB#: [id number] CC:
--- NOTE | 2019-11-27 21:00 | NUR ---
NURSE NOTES: Secretion suctioned, noted with pinkish sputum with some clots. Oral care done.
[2019-11-27] MEDS: Dyna-Hex 2% Top Sol 2oz TOPIC SCH (21:13)
--- NOTE | 2019-11-27 23:00 | NUR ---
NURSE NOTES: Patient passed soft brown BM. Sponge bath done, linens changed.
[2019-11-28] VITALS (21 sets, daily range): BP systolic 130–172; BP diastolic 53–96
[2019-11-28] MEDS: NovoLOG Insulin Flexpen SUBQ SCH ×4 (00:26→18:16)
--- NOTE | 2019-11-28 01:00 | NUR ---
NURSE NOTES: Asleep at this time. No signs of pain or discomfort.
--- NOTE | 2019-11-28 03:00 | NUR ---
NURSE NOTES: Sinus rhythm on the monitor. No acute events. secretions suctioned.
--- NOTE | 2019-11-28 04:30 | NUR ---
NURSE NOTES: Feeding withheld for possible extubation this morning.
--- NOTE | 2019-11-28 05:00 | NUR ---
NURSE NOTES: Patient passed soft brown BM. pericare done.
--- NOTE | 2019-11-28 07:16 | NUR ---
HAND-OFF: Report given to FELY Youssef.
--- NOTE | 2019-11-28 07:27 | NUR ---
NURSE NOTES: Received report from FELY Kelly. Observed patient in bed, obtunded. Patient is orally intubated with ET tube size 7.5, at 24cm lip line, with vent settings AC 12, TV 350, FiO2 100%, and PEEP of 5. Patient is saturating 100% at this time. GT intact and patent. HOB elevated. No n/v noted. Barron catheter noted, intact, draining well to gravity with pale yellow urine output. Left upper arm PICC line patent and asymptomatic with IV fluids infusing at prescribed rate. Dressing clean and dry. Safety precautions in place. Bed locked, alarmed, and in lowest position, side rails up. Dr Crowder present at bedside, discussed plan to extubate patient, stated that he had contacted patient's daughter but no answer. Dr Crowder instructed remote mortgage underwriter to call him if daughter shows up today and if willing to do the extubation today. Will continue plan of care and will continue to monitor patient.
[2019-11-28] MEDS: Pantoprazole Inj IVP SCH (08:31)
[2019-11-28] MEDS: levETIRAcetam 500mg/NS100ml 100 ML IVPB SCH ×2 (08:31→20:54)
--- NOTE | 2019-11-28 08:45 | NUR ---
NURSE NOTES: Patient's daughter Krissy Ugalde called, informed movie writer that she will be coming in today for the extubation. Dr Crowder notified and made aware. Dr Crowder ordered to contact him once daughter gets into the unit for further orders. Will continue to monitor patient.
--- NOTE | 2019-11-28 08:56 | Critical Care Progress Note ---
Assessment/Plan Assessment/Plan Respiratory failure, acute on chronic. Alkalemia due to hyperventilation, chronic metabolic alkalosis, chronic respiratory acidosis, leukocytosis, sepsis, anemia, hyponatremia, hyperkalemia, chronic renal failure, severe protein-calorie malnutrition. hyponatremia, tachypnea PLAN repeat imaging this week care noted and reviewed ID noted and discussed respiratory care reviewed ; increase RR with attempts to wean Ventilatory support - AC and taper off as able continue attempts meds noted SNF meds as outlined supportive care suction and monitor imaging off load as able oxygen therapy and titrate prognosis not improved monitor skin exam tube feeds as tolerated and monitor residuals replace electrolytes monitor lytes; renal noted and reviewed may need trach with lack of improvement medications/laboratory data/nursing notes/ICU care reviewed in detail note reviewed and edited care discussed with RN and RT ICU time spent >40 minutes Critical Care - Subjective Interval Events: care reviewed in ICU events noted past 72 hours respiratory care reviewed patient unable to give any update ROS Limited/Unobtainable: Yes Condition: critical EKG Rhythm: Sinus Rhythm Residuals: minimal Tube Feeding Tolerated: yes I&O: Intake and Output 11/27/19 11/28/19 19:00 07:00 Intake Total 1335 ml 1260 ml Output Total 875 ml 745 ml Balance 460 ml 515 ml Intake Free Water 50 ml IV Total 955 ml 900 ml Tube Feeding 330 ml 360 ml Output Urine Total 875 ml 745 ml # Bowel Movements 1 Critical Care - Objective ET-Tube: 7.5 ET Position: 24 Last 24 Hour Vital Signs Date Time Temp Pulse Resp B/P (MAP) Pulse Ox O2 Delivery O2 Flow Rate FiO2 11/28/19 08:00 100 11/28/19 08:00 98.8 92 2 160/76 (104) 100 11/28/19 08:00 Mechanical Ventilator 11/28/19 07:18 93 11/28/19 07:16 90 27 100 11/28/19 07:00 83 19 142/70 (94) 100 11/28/19 06:30 94 20 11/28/19 06:00 86 6 149/66 (93) 100 11/28/19 05:15 85 25 100 11/28/19 05:00 89 19 150/68 (95) 100 11/28/19 04:00 96 11/28/19 04:00 Mechanical Ventilator 11/28/19 04:00 100 11/28/19 04:00 98.5 86 19 134/58 (83) 100 11/28/19 03:25 85 20 100 11/28/19 03:00 83 15 130/59 (82) 100 11/28/19 02:00 85 19 143/66 (91) 100 11/28/19 01:21 87 30 100 11/28/19 01:00 84 19 137/73 (94) 100 11/28/19 00:00 100 11/28/19 00:00 98.8 83 21 150/67 (94) 100 11/28/19 00:00 Mechanical Ventilator 11/28/19 00:00 103 11/27/19 23:01 87 21 100 11/27/19 23:00 89 13 160/74 (102) 100 11/27/19 22:00 85 21 136/51 (79) 100 11/27/19 21:14 87 21 100 11/27/19 21:00 91 21 158/74 (102) 100 11/27/19 20:00 98.7 85 19 130/59 (82) 100 11/27/19 20:00 Mechanical Ventilator 11/27/19 20:00 100 11/27/19 20:00 86 11/27/19 19:53 86 15 100 11/27/19 19:00 86 12 148/63 (91) 100 11/27/19 18:00 92 14 144/64 (90) 100 11/27/19 17:00 90 16 124/61 (82) 97 11/27/19 16:30 94 24 100 11/27/19 16:00 100 11/27/19 16:00 Mechanical Ventilator 11/27/19 16:00 94 11/27/19 16:00 98.9 94 16 146/84 (104) 100 11/27/19 15:00 93 16 133/64 (87) 94 11/27/19 14:49 96 19 100 11/27/19 14:00 88 14 141/64 (89) 94 11/27/19 13:14 101 24 100 11/27/19 13:00 90 12 155/82 (106) 87 11/27/19 12:00 93 11/27/19 12:00 100 11/27/19 12:00 Mechanical Ventilator 11/27/19 12:00 98.5 85 18 131/51 (77) 96 11/27/19 11:06 100 11/27/19 11:00 91 16 155/77 (103) 94 11/27/19 10:35 91 26 70 11/27/19 10:00 94 16 159/78 (105) 93 11/27/19 09:18 92 27 40 11/27/19 09:00 92 16 146/64 (91) 100 Labs: Labs Test 11/25/19 09:45 11/26/19 05:30 11/27/19 05:00 Arterial Blood pH 7.386 (7.350-7.450) Arterial Blood Partial Pressure CO2 30.6 mmHg (35.0-45.0) Arterial Blood Partial Pressure O2 104.9 mmHg (75.0-100.0) Arterial Blood HCO3 17.9 mmol/L (22.0-26.0) Arterial Blood Oxygen Saturation 97.5 % (95-100) Arterial Blood Base Excess -6.2 (-2-2) Danilo Test Positive White Blood Count 8.8 K/UL (4.8-10.8) 11.2 K/UL (4.8-10.8) Red Blood Count 2.73 M/UL (4.20-5.40) 2.79 M/UL (4.20-5.40) Hemoglobin 7.6 G/DL (12.0-16.0) 7.8 G/DL (12.0-16.0) Hematocrit 23.4 % (37.0-47.0) 23.7 % (37.0-47.0) Mean Corpuscular Volume 86 FL (80-99) 85 FL (80-99) Mean Corpuscular Hemoglobin 27.8 PG (27.0-31.0) 27.9 PG (27.0-31.0) Mean Corpuscular Hemoglobin Concent 32.4 G/DL (32.0-36.0) 32.9 G/DL (32.0-36.0) Red Cell Distribution Width 14.5 % (11.6-14.8) 14.5 % (11.6-14.8) Platelet Count 195 K/UL (150-450) 201 K/UL (150-450) Mean Platelet Volume 4.5 FL (6.5-10.1) 5.4 FL (6.5-10.1) Neutrophils (%) (Auto) % (45.0-75.0) % (45.0-75.0) Lymphocytes (%) (Auto) % (20.0-45.0) % (20.0-45.0) Monocytes (%) (Auto) % (1.0-10.0) % (1.0-10.0) Eosinophils (%) (Auto) % (0.0-3.0) % (0.0-3.0) Basophils (%) (Auto) % (0.0-2.0) % (0.0-2.0) Differential Total Cells Counted 100 100 Neutrophils % (Manual) 68 % (45-75) 70 % (45-75) Lymphocytes % (Manual) 22 % (20-45) 15 % (20-45) Monocytes % (Manual) 7 % (1-10) 12 % (1-10) Eosinophils % (Manual) 3 % (0-3) 2 % (0-3) Basophils % (Manual) 0 % (0-2) 1 % (0-2) Band Neutrophils 0 % (0-8) 0 % (0-8) Platelet Estimate Adequate Adequate Platelet Morphology Normal Normal Red Blood Cell Morphology Normal Sodium Level 151 MMOL/L (136-145) 148 MMOL/L (136-145) Potassium Level 2.9 MMOL/L (3.5-5.1) 3.3 MMOL/L (3.5-5.1) Chloride Level 115 MMOL/L (98-107) 113 MMOL/L (98-107) Carbon Dioxide Level 23 MMOL/L (21-32) 24 MMOL/L (21-32) Anion Gap 13 mmol/L (5-15) 11 mmol/L (5-15) Blood Urea Nitrogen 32 mg/dL (7-18) 31 mg/dL (7-18) Creatinine 2.6 MG/DL (0.55-1.30) 2.4 MG/DL (0.55-1.30) Estimat Glomerular Filtration Rate 21.5 mL/min (>60) 23.5 mL/min (>60) Glucose Level 185 MG/DL (74-106) 160 MG/DL (74-106) Calcium Level 7.3 MG/DL (8.5-10.1) 7.8 MG/DL (8.5-10.1) Hypochromasia 1+ Anisocytosis 1+ Total Bilirubin 0.2 MG/DL (0.2-1.0) Aspartate Amino Transf (AST/SGOT) 22 U/L (15-37) Alanine Aminotransferase (ALT/SGPT) 14 U/L (12-78) Alkaline Phosphatase 141 U/L (46-116) Total Protein 6.1 G/DL (6.4-8.2) Albumin 1.6 G/DL (3.4-5.0) Globulin 4.5 g/dL Albumin/Globulin Ratio 0.4 (1.0-2.7) Objective: WDWN ETT in place; mildly tachypneic reduced LOC as prior reduced breath sounds bilaterally without rhonchi or wheeze [id number] without MRG NABS nontender no HSM; no distention feeding tube in place no CC some edema noted pitting skin noted nonfocal with reduced ROM reviewed and edited Accucheck: 186 Torey Douglass MD Nov 28, 2019 08:56
--- NOTE | 2019-11-28 09:09 | NUR ---
NURSE NOTES: Dr Douglass present at bedside, Informed and made aware regarding plan to extubate. No new orders received at this time. Will continue to monitor.
--- NOTE | 2019-11-28 10:00 | NUR ---
NURSE NOTES: Repositioned and provided oral care; suctioned via ETT and orally with thick, white secretions noted. No s/s of pain/discomfort at this time. No acute distress. TF ongoing, HOB elevated. Will continue to monitor patient.
[2019-11-28] MEDS: 1/2NS w/KCl 20mEq 1000ml 1,000 ML IV SCH ×2 (11:00→22:55)
--- NOTE | 2019-11-28 11:03 | Infectious Diseases Prog Note ---
"Assessment/Plan Assessment/Plan antibiotics : none A 1. MRSA | e.coli pneumonia s/p rx 2. renal failure improving 3. diabetes mellitus 4. CHF 5. CVA 6. respiratory failure 7. leucocytosis resolved P 1. continue off antibiotics 2. will follow up clinically Subjective ROS Limited/Unobtainable: Yes Allergies: Coded Allergies: No Known Allergies (Verified , 12/31/09) Objective Vital Signs Last 24 Hour Vital Signs Date Time Temp Pulse Resp B/P (MAP) Pulse Ox O2 Delivery O2 Flow Rate FiO2 11/28/19 10:00 87 8 156/69 (98) 100 11/28/19 09:26 87 29 100 11/28/19 09:00 90 9 154/79 (104) 100 11/28/19 08:00 100 11/28/19 08:00 98.8 92 2 160/76 (104) 100 11/28/19 08:00 Mechanical Ventilator 11/28/19 07:18 93 11/28/19 07:16 90 27 100 11/28/19 07:00 83 19 142/70 (94) 100 11/28/19 06:30 94 20 11/28/19 06:00 86 6 149/66 (93) 100 11/28/19 05:15 85 25 100 11/28/19 05:00 89 19 150/68 (95) 100 11/28/19 04:00 96 11/28/19 04:00 Mechanical Ventilator 11/28/19 04:00 100 11/28/19 04:00 98.5 86 19 134/58 (83) 100 11/28/19 03:25 85 20 100 11/28/19 03:00 83 15 130/59 (82) 100 11/28/19 02:00 85 19 143/66 (91) 100 11/28/19 01:21 87 30 100 11/28/19 01:00 84 19 137/73 (94) 100 11/28/19 00:00 100 11/28/19 00:00 98.8 83 21 150/67 (94) 100 11/28/19 00:00 Mechanical Ventilator 11/28/19 00:00 103 11/27/19 23:01 87 21 100 11/27/19 23:00 89 13 160/74 (102) 100 11/27/19 22:00 85 21 136/51 (79) 100 11/27/19 21:14 87 21 100 11/27/19 21:00 91 21 158/74 (102) 100 11/27/19 20:00 98.7 85 19 130/59 (82) 100 11/27/19 20:00 Mechanical Ventilator 11/27/19 20:00 100 11/27/19 20:00 86 11/27/19 19:53 86 15 100 11/27/19 19:00 86 12 148/63 (91) 100 11/27/19 18:00 92 14 144/64 (90) 100 11/27/19 17:00 90 16 124/61 (82) 97 11/27/19 16:30 94 24 100 11/27/19 16:00 100 11/27/19 16:00 Mechanical Ventilator 11/27/19 16:00 94 11/27/19 16:00 98.9 94 16 146/84 (104) 100 11/27/19 15:00 93 16 133/64 (87) 94 11/27/19 14:49 96 19 100 11/27/19 14:00 88 14 141/64 (89) 94 11/27/19 13:14 101 24 100 11/27/19 13:00 90 12 155/82 (106) 87 11/27/19 12:00 93 11/27/19 12:00 100 11/27/19 12:00 Mechanical Ventilator 11/27/19 12:00 98.5 85 18 131/51 (77) 96 11/27/19 11:06 100 Height (Feet): 5 Height (Inches): 3.00 Weight (Pounds): 175 HEENT: other - intubated Respiratory/Chest: rhonchi - bilaterally Cardiovascular: normal rate, regular rhythm, no gallop/murmur Abdomen: soft, non tender, other - GT Extremities: other - + edema, left arm PICC Current Medications Medications (Trade) Dose Ordered Sig/Aaron Route PRN Reason Start Time Stop Time Status Last Admin Dose Admin Acetaminophen (Tylenol) 650 mg Q4H PRN GT Mild Pain/Temp > 100.5 11/17/19 07:30 12/17/19 07:29 11/25/19 09:59 Chlorhexidine Gluconate (Arabella-Hex 2%) 1 applic DAILY@1999 TOPIC 11/15/19 20:00 12/15/19 19:59 11/27/19 21:13 Dextrose (Dextrose 50%) 25 ml Q30M PRN IV Hypoglycemia 11/14/19 19:00 12/14/19 18:59 Dextrose (Dextrose 50%) 50 ml Q30M PRN IV Hypoglycemia 11/14/19 19:00 12/14/19 18:59 Insulin Aspart (NovoLOG) Q6HR SUBQ 11/15/19 00:00 12/14/19 20:59 11/28/19 06:09 Levetiracetam 100 ml @ 400 mls/hr Q12HR IVPB 11/14/19 15:00 12/14/19 14:59 11/28/19 08:31 Pantoprazole (Protonix) 40 mg DAILY IVP 11/14/19 14:15 12/14/19 14:14 11/28/19 08:31 Sodium 1,000 ml @ 75 mls/hr [id number] IV 11/26/19 19:00 12/26/19 18:59 11/28/19 11:00 Tyrel Prieto MD Nov 28, 2019 11:03"
--- NOTE | 2019-11-28 12:00 | NUR ---
NURSE NOTES: Patient was repositioned, suctioned orally with thick, white secretion. TF ongoing, patient tolerating well. HOB elevated. Dr Griffith present at bedside, making rounds and seen patient. No new orders received. Patient has no s/s of pain/discomfort at this time. Will continue to monitor.
--- NOTE | 2019-11-28 13:22 | NUR ---
HAND-OFF: Report given to FELY Schmid. Endorsed plan of care.
--- NOTE | 2019-11-28 13:23 | NUR ---
NURSE NOTES: Received patient from Thea GEIGER. Patient is obtunded, Sinus Rhythm on the heart monitor, HR 83. Receiving oxygen via ET Tube 7.5 24cm at the lip line, vent settings: AC 12, TV 350, FiO2 100%, PEEP 5. Left Upper Arm PICC is intact and asymptomatic, receiving 1/2 NS with 20mEq KCl at 75cc/hr. G-tube is intact and receiving Nepro at 30cc/hr. Barron catheter is patent and draining. Bed is locked, placed in lowest position, side rails up x3, bed alarm on. Will continue to monitor.
--- NOTE | 2019-11-28 14:15 | NUR ---
*-* INSURANCE *-* ALL CLINICALS AND REVIEWS HAVE BEEN FAXED TO: [employer] #[phone] fax# [phone]
--- NOTE | 2019-11-28 14:55 | NUR ---
NURSE NOTES: Dr. Crowder spoke to family regarding comfort care of patient. Orders received.
[2019-11-28] MEDS ORDERED: Morphine Sulfate 2mg/ml Inj(IV/IM USE ONLY) IVP PRN (15:00)
--- NOTE | 2019-11-28 15:13 | NUR ---
RESPIRATORY NOTE: Confirmed extubation order from Dr. Crowder. Successfully terminally extubated pt. Pt placed on 3LPM NC. Will continue to monitor.
--- NOTE | 2019-11-28 15:13 | NUR ---
NURSE NOTES: Patient extubated under order of Dr. Crowder with confirmation of family. Patient will be placed on comfort care. Nasal Cannula 3L/min placed on patient. Will continue to monitor.
--- NOTE | 2019-11-28 15:50 | Surgery Progress Note ---
Surgery Progress Note Subjective Additional Comments plan terminal extubation today Objective Last 24 Hour Vital Signs Date Time Temp Pulse Resp B/P (MAP) Pulse Ox O2 Delivery O2 Flow Rate FiO2 11/28/19 15:00 94 12 160/75 (103) 100 11/28/19 14:00 82 0 134/63 (86) 100 11/28/19 13:00 85 12 130/61 (84) 100 11/28/19 12:09 98.7 103 12 172/80 (110) 100 11/28/19 12:00 Mechanical Ventilator 11/28/19 12:00 100 11/28/19 11:44 87 11/28/19 11:22 87 23 100 11/28/19 11:00 84 0 141/68 (92) 100 11/28/19 10:00 87 8 156/69 (98) 100 11/28/19 09:26 87 29 100 11/28/19 09:00 90 9 154/79 (104) 100 11/28/19 08:00 100 11/28/19 08:00 98.8 92 2 160/76 (104) 100 11/28/19 08:00 Mechanical Ventilator 11/28/19 07:18 93 11/28/19 07:16 90 27 100 11/28/19 07:00 83 19 142/70 (94) 100 11/28/19 06:30 94 20 11/28/19 06:00 86 6 149/66 (93) 100 11/28/19 05:15 85 25 100 11/28/19 05:00 89 19 150/68 (95) 100 11/28/19 04:00 96 11/28/19 04:00 Mechanical Ventilator 11/28/19 04:00 100 11/28/19 04:00 98.5 86 19 134/58 (83) 100 11/28/19 03:25 85 20 100 11/28/19 03:00 83 15 130/59 (82) 100 11/28/19 02:00 85 19 143/66 (91) 100 11/28/19 01:21 87 30 100 11/28/19 01:00 84 19 137/73 (94) 100 11/28/19 00:00 100 11/28/19 00:00 98.8 83 21 150/67 (94) 100 11/28/19 00:00 Mechanical Ventilator 11/28/19 00:00 103 11/27/19 23:01 87 21 100 11/27/19 23:00 89 13 160/74 (102) 100 11/27/19 22:00 85 21 136/51 (79) 100 11/27/19 21:14 87 21 100 11/27/19 21:00 91 21 158/74 (102) 100 11/27/19 20:00 98.7 85 19 130/59 (82) 100 11/27/19 20:00 Mechanical Ventilator 11/27/19 20:00 100 11/27/19 20:00 86 11/27/19 19:53 86 15 100 11/27/19 19:00 86 12 148/63 (91) 100 11/27/19 18:00 92 14 144/64 (90) 100 11/27/19 17:00 90 16 124/61 (82) 97 11/27/19 16:30 94 24 100 11/27/19 16:00 100 11/27/19 16:00 Mechanical Ventilator 11/27/19 16:00 94 11/27/19 16:00 98.9 94 16 146/84 (104) 100 I&O Intake and Output 11/27/19 11/28/19 19:00 07:00 Intake Total 1335 ml 1260 ml Output Total 875 ml 745 ml Balance 460 ml 515 ml Intake Free Water 50 ml IV Total 955 ml 900 ml Tube Feeding 330 ml 360 ml Output Urine Total 875 ml 745 ml # Bowel Movements 1 Dressing: other Wound: other Drains: other Cardiovascular: other Respiratory: other Abdomen: other Extremities: other Plan Problems: (1) Decubitus skin ulcer Assessment & Plan: Pt presented on admission with multiple pressure injuries. DTPI sacrum . Base of injury is indurated,purple with areas that are maroon in colour. An area of fluctuance noted at sacrococcygeal area. Borders are irregular (L)8.5cm x (W)9.3cm.Historical scar also noted within base of Sacral pressure injury. DTPI medial L heel. Base of injury fluctuant,maroon with surrounding non- blanching erythema. (L)1.7cm x (W)1.6cm. DTPI medial R heel. Base of injury is maroon and fluctuant(L)3.1cm x (W)2.5cm. Tx.Plan: Apply Moisture Barrier Paste to Sacrum. Cover with Optifoam drsg. Change every 3 days and prn. Apply Cavilon Skin Barrier to both heels. Cover each heel with Optifoam drsg. Change every 7 days and prn. APM/VALERIE Mattress. Reposition at least every 2 hours or as tolerated. Off-load heels with pillow. Patient is at high risk for deterioration of wounds opening of DTI and formation of worsening decubitus will need close monitoring and significant amount of care to ensure improvement. Nutritional optimization. Will follow with recommendations thank you (2) Failure to thrive in adult Assessment & Plan: Not tolerating tube feeds regurgitation high residuals DAILY ESTIMATED NEEDS: Needs based on Critical care, sepsis, wound, ARF/ 57.7kg abw 22-30 kcals/kg 2614-8173 total kcals 0.8-1.3 (increase w/ renal fxn improvement) g protein/kg 46-75 g total protein 25-30 mL/kg 0346-7626 total fluid mLs NUTRITION DIAGNOSIS: 1) Swallowing difficulty r/t dysphagia as evidenced by pt is Jtube dep, currently orally intubated, NPO. 2) Altered nutrition related lab values r/t respiratory failure, DM, ARF, sepsis as evidenced by COW >45*, elev pH 7.616*, elev K (7.2*), elev creat (8.8), elev BUN (178), elev BG (228), elev LA, elev wbc (22.2*) CURRENT TF:NPO ENTERAL NUTRITION RECOMMENDATIONS: Nepro @ 40ml/hr x 22 hrs to provide 880ml, 1584kcal, 71g prot, 640ml free water * Rec Nepro at this time given ARF, +hyperkalemia w/ creat 8.8. * When medically appropriate, initiate Nepro @ 20ml/hr x 6 hrs, advance 10ml q 4 -6 hrs as tolerated to goal rate * Hold 1 hr before and after Synthroid med * HOB over 30 degrees/ water flush per MD ---- W/ improved renal fxn and normalized lytes, rec Glucerna 1.2 @ 60ml/hr x 22 hrs to provide 1320ml, 1584 kcal, 79g pro, 1063ml free H2O ADDITIONAL RECOMMENDATIONS: 1) Monitor lytes and renal fxn closely -> admitted w/ creat > 8.0, creat previous adm < 2.0 -> K critically elev, s/p kayexalate. -> Rec Nepro at this time 2) Wound care: add Maik BID as tolerated/ f/up w/ WC eval 3) Calibrated bedscale wt- w/ added p200 mattress + pump 4) Pt on Synthroid BORDER POLICE:currently not on the med list. (3) Acute respiratory failure Assessment & Plan: As per pulmonology available if trach needs dnr/dni family considering care plan not interested in trach at this time Additional Comments extubation planned when daughter arrives Jared Mcarthur Nov 28, 2019 15:50
--- NOTE | 2019-11-28 16:26 | NUR ---
CASE MANAGEMENT:REVIEW SI;S/P EXTUBATION. RESP FAILURE. 98.7 113 40 170/72 93% 3L NC WBC 11.2 H/H 7.8/23.7 NA 148 K+ 3.3 BUN 31 CR 2.4 IS;IVF NS @ 75 ML/HR MORPHINE IV Q1 HR PRN NOVOLOG SUBQ Q6 HRS KEPPRA IV Q12 HRS PROTONIX IV QD ICU STATUS DCP;FROM [facility] PLAN OF CARE; COMFORT CARE TUBE FEEDINGS TOLERATED O2 THERAPY AND TITRATE
--- NOTE | 2019-11-28 18:37 | NUR ---
TRANSFER TO FLOOR: Patient transferred to Med-Surg, per Dr. Crowder. Report given to Ney Cheng. Belongings and medications given to oncoming nurse. Family and or S/O informed of transfer.
--- NOTE | 2019-11-28 19:30 | NUR ---
NURSE NOTES: RECEIVED PATIENT FROM FELY KRAUSE. PATIENT IS AWAKE, AAOX0, OBTUNDED, AND NON-VERBAL. PATIENT IS ON NC 3L, O2 SAT AT 94. TACHYPNEA NOTED. PATIENT IS ON COMFORT CARE. G-TUBE FEEDING PRESENT, INTACT AND PATENT, RUNNING NEPHRO AT 30ML/HR. PATIENT IS TOLERATING FEEDING WELL. PICC LINE IS INTACT AND PATENT. WOUND DRESSINGS INTACT AND DRY. BED IS LOCKED AND LOW, BED ALARMS ACTIVE, SIDE RAILS UP X2 AND PADDED, AND CALL LIGHT IS WITHIN REACH. WILL CONTINUE TO MONITOR.
--- NOTE | 2019-11-28 19:30 | NUR ---
NURSE NOTES: RECEIVED PT FROM ICU. NO BELONGINGS NOTED. PER CALDERON RN THERE WAS NO SHIRT AND PANTS FOUND LISTED ON BELONGINGS SHEET. PT PLACED ON 3L NC. SUCTION SET UP AT BEDSIDE. PT PLACED IN HIGH QUINTERO'S POSITION, BED IN LOWEST POSITION WITH BEDSIDE RAILS X3 RAISED. WILL CONTINUE TO MONITOR.
--- NOTE | 2019-11-28 19:31 | NUR ---
HAND-OFF: Report given to Kavita SANTOS RN.
[2019-11-28] MEDS: Dyna-Hex 2% Top Sol 2oz TOPIC SCH (20:54)
--- NOTE | 2019-11-28 21:38 | General Progress Note ---
Assessment/Plan Problem List: (1) Shock ICD Codes: R57.9 - Shock, unspecified SNOMED: 86382003 (2) Anemia due to acute blood loss ICD Codes: D62 - Acute posthemorrhagic anemia SNOMED: 359668025 (3) Hyperkalemia ICD Codes: E87.5 - Hyperkalemia SNOMED: 35071605 (4) Recurrent seizures ICD Codes: G40.909 - Epilepsy, unspecified, not intractable, without status epilepticus SNOMED: 69424065, 32450966 (5) Aspiration pneumonia ICD Codes: J69.0 - Pneumonitis due to inhalation of food and vomit SNOMED: 552433475 (6) ARF (acute renal failure) ICD Codes: N17.9 - Acute kidney failure, unspecified SNOMED: 59688288 (7) ATN (acute tubular necrosis) ICD Codes: N17.0 - Acute kidney failure with tubular necrosis SNOMED: 14693039 Status: stable Assessment/Plan: cont vent support. terminal extubation when family arrives. o2 only. no bipap after resp care suctioning as needed iv abx monitor renal fxn monitor labs and cbc transfuse as needed grim prognosis comfort care Subjective ROS Limited/Unobtainable: No Constitutional: Reports: malaise, weakness HEENT: Reports: no symptoms Cardiovascular: Reports: no symptoms Respiratory: Reports: cough, shortness of breath, sputum Gastrointestinal/Abdominal: Reports: difficulty swallowing Genitourinary: Reports: no symptoms Neurologic/Psychiatric: Reports: no symptoms Endocrine: Reports: no symptoms Hematologic/Lymphatic: Reports: anemia Allergies: Coded Allergies: No Known Allergies (Verified , 12/31/09) All Systems: reviewed and negative except above Subjective bp improved. off dopamine due to high bp. good uop. no fevers. GT replaced. renal fxn improving. renal fxn and urine output improving. decrease h/h noted. +edema unable to wean. dtr wants to remove from the vent. Objective Last 24 Hour Vital Signs Date Time Temp Pulse Resp B/P (MAP) Pulse Ox O2 Delivery O2 Flow Rate FiO2 11/28/19 18:45 96.1 105 40 141/96 (111) 96 105 11/28/19 18:00 112 42 153/69 (97) 100 11/28/19 17:00 105 47 148/53 (84) 99 11/28/19 16:00 3.0 11/28/19 16:00 Mechanical Ventilator 11/28/19 16:00 97.4 113 40 170/72 (104) 93 11/28/19 15:35 110 11/28/19 15:13 Nasal Cannula 3.0 32 11/28/19 15:00 94 12 160/75 (103) 100 11/28/19 14:00 82 12 134/63 (86) 100 11/28/19 13:15 85 24 100 11/28/19 13:00 85 12 130/61 (84) 100 11/28/19 12:09 98.7 103 12 172/80 (110) 100 11/28/19 12:00 Mechanical Ventilator 11/28/19 12:00 100 11/28/19 11:44 87 11/28/19 11:22 87 23 100 11/28/19 11:00 84 0 141/68 (92) 100 11/28/19 10:00 87 8 156/69 (98) 100 11/28/19 09:26 87 29 100 11/28/19 09:00 90 9 154/79 (104) 100 11/28/19 08:00 100 11/28/19 08:00 98.8 92 2 160/76 (104) 100 11/28/19 08:00 Mechanical Ventilator 11/28/19 07:18 93 11/28/19 07:16 90 27 100 11/28/19 07:00 83 19 142/70 (94) 100 11/28/19 06:30 94 20 11/28/19 06:00 86 6 149/66 (93) 100 11/28/19 05:15 85 25 100 11/28/19 05:00 89 19 150/68 (95) 100 11/28/19 04:00 96 11/28/19 04:00 Mechanical Ventilator 11/28/19 04:00 100 11/28/19 04:00 98.5 86 19 134/58 (83) 100 11/28/19 03:25 85 20 100 11/28/19 03:00 83 15 130/59 (82) 100 11/28/19 02:00 85 19 143/66 (91) 100 11/28/19 01:21 87 30 100 11/28/19 01:00 84 19 137/73 (94) 100 11/28/19 00:00 100 11/28/19 00:00 98.8 83 21 150/67 (94) 100 11/28/19 00:00 Mechanical Ventilator 11/28/19 00:00 103 11/27/19 23:01 87 21 100 11/27/19 23:00 89 13 160/74 (102) 100 11/27/19 22:00 85 21 136/51 (79) 100 Intake and Output 11/27/19 11/28/19 19:00 07:00 Intake Total 1335 ml 1260 ml Output Total 875 ml 745 ml Balance 460 ml 515 ml Intake Free Water 50 ml IV Total 955 ml 900 ml Tube Feeding 330 ml 360 ml Output Urine Total 875 ml 745 ml # Bowel Movements 1 Height (Feet): 5 Height (Inches): 3.00 Weight (Pounds): 175 Objective General Appearance: WD/WN, lethargic Neck: normal alignment, supple, normal inspection Cardiovascular: normal rate, regular rhythm Respiratory/Chest: no respiratory distress, no accessory muscle use, rhonchi - bilaterally Abdomen: normal bowel sounds, non tender, soft, no organomegaly, no mass Extremities: normal range of motion, non-tender Neurologic: unresponsive, aphasia Jeffrey Crowder MD Nov 28, 2019 21:38
--- NOTE | 2019-11-28 22:50 | General Progress Note ---
Assessment/Plan Status: stable Assessment/Plan: Assessment - h/o gastroparesis and GT feed intolerance - GJ tube dislodged and replaced with G tube - Resp failure - OBS - Sepeis, shock - CRF - Poor Px Recommendations - continue TF - abx - elevate HOB - end of life care Subjective Allergies: Coded Allergies: No Known Allergies (Verified , 12/31/09) Subjective Above noted d/w RN Tolerating TF end of life plans noted Objective Last 24 Hour Vital Signs Date Time Temp Pulse Resp B/P (MAP) Pulse Ox O2 Delivery O2 Flow Rate FiO2 11/28/19 20:00 98.9 108 35 143/86 (105) 94 11/28/19 20:00 Nasal Cannula 3.0 11/28/19 18:45 96.1 105 40 141/96 (111) 96 105 11/28/19 18:00 112 42 153/69 (97) 100 11/28/19 17:00 105 47 148/53 (84) 99 11/28/19 16:00 3.0 11/28/19 16:00 Mechanical Ventilator 11/28/19 16:00 97.4 113 40 170/72 (104) 93 11/28/19 15:35 110 11/28/19 15:13 Nasal Cannula 3.0 32 11/28/19 15:00 94 12 160/75 (103) 100 11/28/19 14:00 82 12 134/63 (86) 100 11/28/19 13:15 85 24 100 11/28/19 13:00 85 12 130/61 (84) 100 11/28/19 12:09 98.7 103 12 172/80 (110) 100 11/28/19 12:00 Mechanical Ventilator 11/28/19 12:00 100 11/28/19 11:44 87 11/28/19 11:22 87 23 100 11/28/19 11:00 84 0 141/68 (92) 100 11/28/19 10:00 87 8 156/69 (98) 100 11/28/19 09:26 87 29 100 11/28/19 09:00 90 9 154/79 (104) 100 11/28/19 08:00 100 11/28/19 08:00 98.8 92 2 160/76 (104) 100 11/28/19 08:00 Mechanical Ventilator 11/28/19 07:18 93 11/28/19 07:16 90 27 100 11/28/19 07:00 83 19 142/70 (94) 100 11/28/19 06:30 94 20 11/28/19 06:00 86 6 149/66 (93) 100 11/28/19 05:15 85 25 100 11/28/19 05:00 89 19 150/68 (95) 100 11/28/19 04:00 96 11/28/19 04:00 Mechanical Ventilator 11/28/19 04:00 100 11/28/19 04:00 98.5 86 19 134/58 (83) 100 11/28/19 03:25 85 20 100 11/28/19 03:00 83 15 130/59 (82) 100 11/28/19 02:00 85 19 143/66 (91) 100 11/28/19 01:21 87 30 100 11/28/19 01:00 84 19 137/73 (94) 100 11/28/19 00:00 100 11/28/19 00:00 98.8 83 21 150/67 (94) 100 11/28/19 00:00 Mechanical Ventilator 11/28/19 00:00 103 11/27/19 23:01 87 21 100 11/27/19 23:00 89 13 160/74 (102) 100 Intake and Output 11/27/19 11/28/19 19:00 07:00 Intake Total 1335 ml 1260 ml Output Total 875 ml 745 ml Balance 460 ml 515 ml Intake Free Water 50 ml IV Total 955 ml 900 ml Tube Feeding 330 ml 360 ml Output Urine Total 875 ml 745 ml # Bowel Movements 1 Height (Feet): 5 Height (Inches): 3.00 Weight (Pounds): 175 Objective Debilitated AA woman in ICU on vent NCAT (+) ETT coarse BS/ karol RR abd soft, NT, GT in good position no edema Non verbal Darrell Griffith MD Nov 28, 2019 22:50
[2019-11-28] MEDS ORDERED: Acetaminophen 650mg/20.3ml GT PRN (23:30)
[2019-11-29] VITALS: BP 147/95
[2019-11-29] MEDS: NovoLOG Insulin Flexpen SUBQ SCH ×4 (01:20→17:19)
--- NOTE | 2019-11-29 03:15 | Progress Note ---
DATE: 11/28/2019 SUBJECTIVE: The patient's blood pressure stable. She remains on ventilator support. Weaning efforts in progress, but has been largely unsuccessful. OBJECTIVE: VITAL SIGNS: Blood pressure 153/69, heart rate 112, and respiratory rate 42. LUNGS: Bilateral breath sounds. Rhonchi. CARDIAC: Regular rhythm and rate. Normal S1 and S2. ABDOMEN: Soft. GJ tube intact. EXTREMITIES: There is trace edema. IMPRESSION: 1. Respiratory failure, status post sepsis with shock. 2. Failure to wean. 3. Dehydration. 4. . 5. Acute renal failure. 6. Acute on chronic diastolic congestive heart failure. 7. Severe protein-calorie malnutrition. 8. Hypothyroidism. 9. Paroxysmal atrial arrhythmias. PLAN: 1. Free water replacement. 2. Ventilator support with weaning efforts. 3. Antimicrobials. 4. Nutrition by feeding tube. 5. Consideration for trach versus terminal extubation under discussion with family members at this time. Kavon Peña M.D. DR: TITA JOB#: [id number] CC:
[2019-11-29 04:00] VITALS: BP 160/92
[2019-11-29] MEDS: Morphine Sulfate 2mg/ml Inj(IV/IM USE ONLY) IVP PRN ×5 (04:43→23:25)
--- NOTE | 2019-11-29 07:58 | NUR ---
HAND-OFF: Report given to FELY GARVIN.
[2019-11-29 08:00] VITALS: BP 158/87
--- NOTE | 2019-11-29 08:01 | NUR ---
NURSE NOTES: awake/non verbal. on comfort measures. gt feeding infusing. o2 3lper n/c. in acute distress.
[2019-11-29] MEDS: levETIRAcetam 500mg/NS100ml 100 ML IVPB SCH ×2 (08:24→20:19)
[2019-11-29] MEDS: Pantoprazole Inj IVP SCH (08:27)
--- NOTE | 2019-11-29 09:47 | Critical Care Progress Note ---
Assessment/Plan Assessment/Plan Respiratory failure, acute on chronic. Alkalemia due to hyperventilation, chronic metabolic alkalosis, chronic respiratory acidosis, leukocytosis, sepsis, anemia, hyponatremia, hyperkalemia, chronic renal failure, severe protein-calorie malnutrition. 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 with accounting office manager - Subjective Interval Events: terminally extubated on morphine on feeds ROS Limited/Unobtainable: Yes Condition: grave EKG Rhythm: Sinus Rhythm I&O: Intake and Output 11/28/19 11/29/19 19:00 07:00 Intake Total 1110 ml 1120 ml Output Total 655 ml 600 ml Balance 455 ml 520 ml Intake Free Water 100 ml IV Total 700 ml 600 ml Tube Feeding 360 ml 420 ml Other 50 ml Output Urine Total 655 ml 600 ml # Voids 1 # Bowel Movements 1 Critical Care - Objective ET-Tube: 7.5 ET Position: 24 Last 24 Hour Vital Signs Date Time Temp Pulse Resp B/P (MAP) Pulse Ox O2 Delivery O2 Flow Rate FiO2 11/29/19 08:00 97.9 93 38 158/87 (110) 96 11/29/19 04:00 98.1 93 41 160/92 (114) 98 11/29/19 00:00 98.2 97 40 147/95 (112) 98 11/28/19 20:00 98.9 108 35 143/86 (105) 94 11/28/19 20:00 Nasal Cannula 3.0 11/28/19 18:45 96.1 105 40 141/96 (111) 96 105 11/28/19 18:00 112 42 153/69 (97) 100 11/28/19 17:00 105 47 148/53 (84) 99 11/28/19 16:00 3.0 11/28/19 16:00 Mechanical Ventilator 11/28/19 16:00 97.4 113 40 170/72 (104) 93 11/28/19 15:35 110 11/28/19 15:13 Nasal Cannula 3.0 32 11/28/19 15:00 94 12 160/75 (103) 100 11/28/19 14:00 82 12 134/63 (86) 100 11/28/19 13:15 85 24 100 11/28/19 13:00 85 12 130/61 (84) 100 3/23/20 12:09 98.7 103 12 172/80 (110) 100 11/28/19 12:00 Mechanical Ventilator 11/28/19 12:00 100 11/28/19 11:44 87 11/28/19 11:22 87 23 100 11/28/19 11:00 84 0 141/68 (92) 100 11/28/19 10:00 87 8 156/69 (98) 100 Objective: WDWN ETT in place; mildly tachypneic reduced LOC as prior reduced breath sounds bilaterally without rhonchi or wheeze [id number] without MRG NABS nontender no HSM; no distention feeding tube in place no CC some edema noted pitting skin noted nonfocal with reduced ROM reviewed and edited Accucheck: 164 Torey Douglass MD Nov 29, 2019 09:47
--- NOTE | 2019-11-29 10:26 | NUR ---
RD ASSESSMENT & RECOMMENDATIONS SEE CARE ACTIVITY FOR COMPLETE ASSESSMENT DAILY ESTIMATED NEEDS: Needs based on Critical care, sepsis, wound, ARF/ 57.7kg abw 22-30 kcals/kg 4760-1077 total kcals 0.8-1.3 (increase w/ renal fxn improvement) g protein/kg 46-75 g total protein 25-30 mL/kg 6956-7064 total fluid mLs NUTRITION DIAGNOSIS: 1) Swallowing difficulty r/t dysphagia as evidenced by pt is GJtube dep, currently orally intubated, s/p dislodged GT tube, s/p GT re-placement, on GT feeds. 2) Altered nutrition related lab values r/t respiratory failure, DM, ARF, sepsis as evidenced by upon adm CO2 >45* and elev pH 7.616*, now improved, elev K (7.2*->2.5*->3.3), elev creat(8.8->2.4), elev BUN (178->31), elev BG (160 185), elev LA, elev wbc (22.2*->11.2) * Increased kcal/prot needs R/T wound healing as evidenced by admitted w/ DTPI wounds @ sacrum and BL heels. CURRENT TF:Nepro @ 30ml/hr x 24 hrs ENTERAL NUTRITION RECOMMENDATIONS: IF PT IS TO CONTINUE TF: rec TF change to Glucerna 1.5 @ 40ml/hr x 24 hrs to provide 960ml, 1440kcal, 79g prot, 729ml free water * IF PT IS TO CONTINUE TF DURING END OF LIFE CARE REC TF CHANGE TO GLUCERNA 1.5 - pt w/ improved renal fxn, lytes consistently low, improved BG control, Nepro unnecessary -> Initiate Glucerna 1.5 @ 20ml/hr x 6 hrs, advance 10ml q 4-6 hrs as tolerated to goal rate -> HOB Over 30 degrees/ water flush per MD ADDITIONAL RECOMMENDATIONS: * MONITOR POC: S/P TERMINAL EXTUBATION, END OF LIFE CARE * Rec adjust or DC IVF -> pt on 09/08 NS @ 75ml/hr x 24 hrs currently, last Na level elevated pt is edematous * Wound healing: add Maik BID via GT . . .
--- NOTE | 2019-11-29 10:52 | Infectious Diseases Prog Note ---
"Assessment/Plan Assessment/Plan antibiotics : none A 1. MRSA | e.coli pneumonia s/p rx 2. renal failure improving 3. diabetes mellitus 4. CHF 5. CVA 6. respiratory failure 7. leucocytosis resolved P 1. patient off antibiotics, on comfort measures 2. will sign off Subjective ROS Limited/Unobtainable: Yes Allergies: Coded Allergies: No Known Allergies (Verified , 12/31/09) Objective Vital Signs Last 24 Hour Vital Signs Date Time Temp Pulse Resp B/P (MAP) Pulse Ox O2 Delivery O2 Flow Rate FiO2 11/29/19 09:00 Nasal Cannula 3.0 11/29/19 08:00 97.9 93 38 158/87 (110) 96 11/29/19 04:00 98.1 93 41 160/92 (114) 98 11/29/19 00:00 98.2 97 40 147/95 (112) 98 11/28/19 20:00 98.9 108 35 143/86 (105) 94 11/28/19 20:00 Nasal Cannula 3.0 11/28/19 18:45 96.1 105 40 141/96 (111) 96 105 11/28/19 18:00 112 42 153/69 (97) 100 11/28/19 17:00 105 47 148/53 (84) 99 11/28/19 16:00 3.0 11/28/19 16:00 Mechanical Ventilator 11/28/19 16:00 97.4 113 40 170/72 (104) 93 11/28/19 15:35 110 11/28/19 15:13 Nasal Cannula 3.0 32 11/28/19 15:00 94 12 160/75 (103) 100 11/28/19 14:00 82 12 134/63 (86) 100 11/28/19 13:15 85 24 100 11/28/19 13:00 85 12 130/61 (84) 100 11/28/19 12:09 98.7 103 12 172/80 (110) 100 11/28/19 12:00 Mechanical Ventilator 11/28/19 12:00 100 11/28/19 11:44 87 11/28/19 11:22 87 23 100 11/28/19 11:00 84 0 141/68 (92) 100 Height (Feet): 5 Height (Inches): 3.00 Weight (Pounds): 195 Respiratory/Chest: lungs clear Cardiovascular: normal rate, regular rhythm, no gallop/murmur Abdomen: soft, non tender, other - GT Extremities: other - + edema, left arm PICC Current Medications Medications (Trade) Dose Ordered Sig/Aaron Route PRN Reason Start Time Stop Time Status Last Admin Dose Admin Acetaminophen (Tylenol) 650 mg Q4H PRN GT Mild Pain/Temp > 100.5 11/28/19 23:30 12/17/19 07:29 Chlorhexidine Gluconate (Arabella-Hex 2%) 1 applic DAILY@2000 TOPIC 11/29/19 20:00 12/15/19 19:59 Dextrose (Dextrose 50%) 25 ml Q30M PRN IV Hypoglycemia 11/28/19 23:00 12/14/19 18:59 Dextrose (Dextrose 50%) 50 ml Q30M PRN IV Hypoglycemia 11/28/19 23:00 12/14/19 18:59 Insulin Aspart (NovoLOG) Q6HR SUBQ 11/29/19 00:00 12/14/19 20:59 11/29/19 06:26 Levetiracetam 100 ml @ 400 mls/hr Q12HR IVPB 11/29/19 09:00 12/14/19 14:59 11/29/19 08:24 Morphine Sulfate (Morphine Sulfate) 2 mg Q1H PRN IVP For Pain 11/28/19 23:00 12/05/19 14:59 11/29/19 06:05 Pantoprazole (Protonix) 40 mg DAILY IVP 11/29/19 09:00 12/14/19 14:14 11/29/19 08:27 Sodium 1,000 ml @ 75 mls/hr [id number] IV 11/28/19 22:45 12/26/19 18:59 11/28/19 22:55 Tyrel Prieto MD Nov 29, 2019 10:52"
--- NOTE | 2019-11-29 11:50 | NUR ---
CASE MANAGEMENT:REVIEW SI;ASPIRATION PNA. AC RENAL FAILURE. RESPIRATORY FAILURE. 96.1 108 41 160/92 94# 3L NC NO LABS AVAILABLE IS;IVF NA @ 75 ML/HR MORPHINE IV Q1 HRS PRN PROTONIX IV QD KEPPRA IV Q12 HRS TRANSFERRED FROM TELE TO MED SURG 11/28/2019 MED SURG STATUS DCP;FROM [facility] PL[facility];TRANSFUSE NEEDED RESPIRATORY CARE COMFORT CARE
[2019-11-29 12:00] VITALS: BP 129/67
--- NOTE | 2019-11-29 13:30 | Surgery Progress Note ---
Surgery Progress Note Subjective Additional Comments comfort care tube out on christy supportive care Objective Last 24 Hour Vital Signs Date Time Temp Pulse Resp B/P (MAP) Pulse Ox O2 Delivery O2 Flow Rate FiO2 11/29/19 09:00 Nasal Cannula 3.0 11/29/19 08:00 97.9 93 38 158/87 (110) 96 11/29/19 04:00 98.1 93 41 160/92 (114) 98 11/29/19 00:00 98.2 97 40 147/95 (112) 98 11/28/19 20:00 98.9 108 35 143/86 (105) 94 11/28/19 20:00 Nasal Cannula 3.0 11/28/19 18:45 96.1 105 40 141/96 (111) 96 105 11/28/19 18:00 112 42 153/69 (97) 100 11/28/19 17:00 105 47 148/53 (84) 99 11/28/19 16:00 3.0 11/28/19 16:00 Mechanical Ventilator 11/28/19 16:00 97.4 113 40 170/72 (104) 93 11/28/19 15:35 110 11/28/19 15:13 Nasal Cannula 3.0 32 11/28/19 15:00 94 12 160/75 (103) 100 11/28/19 14:00 82 12 134/63 (86) 100 I&O Intake and Output 11/28/19 11/29/19 19:00 07:00 Intake Total 1110 ml 1120 ml Output Total 655 ml 600 ml Balance 455 ml 520 ml Intake Free Water 100 ml IV Total 700 ml 600 ml Tube Feeding 360 ml 420 ml Other 50 ml Output Urine Total 655 ml 600 ml # Voids 1 # Bowel Movements 1 Dressing: other Wound: other Drains: other Cardiovascular: RSR Respiratory: decreased breath sounds Abdomen: soft, present bowel sounds Extremities: no cyanosis Plan Problems: (1) Decubitus skin ulcer Assessment & Plan: Pt presented on admission with multiple pressure injuries. DTPI sacrum . Base of injury is indurated,purple with areas that are maroon in colour. An area of fluctuance noted at sacrococcygeal area. Borders are irregular (L)8.5cm x (W)9.3cm.Historical scar also noted within base of Sacral pressure injury. DTPI medial L heel. Base of injury fluctuant,maroon with surrounding non- blanching erythema. (L)1.7cm x (W)1.6cm. DTPI medial R heel. Base of injury is maroon and fluctuant(L)3.1cm x (W)2.5cm. Tx.Plan: Apply Moisture Barrier Paste to Sacrum. Cover with Optifoam drsg. Change every 3 days and prn. Apply Cavilon Skin Barrier to both heels. Cover each heel with Optifoam drsg. Change every 7 days and prn. APM/VALERIE Mattress. Reposition at least every 2 hours or as tolerated. Off-load heels with pillow. Patient is at high risk for deterioration of wounds opening of DTI and formation of worsening decubitus will need close monitoring and significant amount of care to ensure improvement. Nutritional optimization. Will follow with recommendations thank you (2) Failure to thrive in adult Assessment & Plan: Not tolerating tube feeds regurgitation high residuals DAILY ESTIMATED NEEDS: Needs based on Critical care, sepsis, wound, ARF/ 57.7kg abw 22-30 kcals/kg 3674-3679 total kcals 0.8-1.3 (increase w/ renal fxn improvement) g protein/kg 46-75 g total protein 25-30 mL/kg 4264-1979 total fluid mLs NUTRITION DIAGNOSIS: 1) Swallowing difficulty r/t dysphagia as evidenced by pt is Jtube dep, currently orally intubated, NPO. 2) Altered nutrition related lab values r/t respiratory failure, DM, ARF, sepsis as evidenced by COW >45*, elev pH 7.616*, elev K (7.2*), elev creat (8.8), elev BUN (178), elev BG (228), elev LA, elev wbc (22.2*) CURRENT TF:NPO ENTERAL NUTRITION RECOMMENDATIONS: Nepro @ 40ml/hr x 22 hrs to provide 880ml, 1584kcal, 71g prot, 640ml free water * Rec Nepro at this time given ARF, +hyperkalemia w/ creat 8.8. * When medically appropriate, initiate Nepro @ 20ml/hr x 6 hrs, advance 10ml q 4 -6 hrs as tolerated to goal rate * Hold 1 hr before and after Synthroid med * HOB over 30 degrees/ water flush per MD Gagnon--- W/ improved renal fxn and normalized lytes, rec Glucerna 1.2 @ 60ml/hr x 22 hrs to provide 1320ml, 1584 kcal, 79g pro, 1063ml free H2O ADDITIONAL RECOMMENDATIONS: 1) Monitor lytes and renal fxn closely -> admitted w/ creat > 8.0, creat previous adm < 2.0 -> K critically elev, s/p kayexalate. 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 (3) Acute respiratory failure Assessment & Plan: As per pulmonology available if trach needs dnr/dni family considering care plan not interested in trach at this time comfort care supportive care tube out on christy Jared Mcarthur Nov 29, 2019 13:30
[2019-11-29] MEDS: 1/2NS w/KCl 20mEq 1000ml 1,000 ML IV SCH (14:13)
--- NOTE | 2019-11-29 15:23 | General Progress Note ---
Assessment/Plan Problem List: (1) Shock ICD Codes: R57.9 - Shock, unspecified SNOMED: 67683456 (2) Anemia due to acute blood loss ICD Codes: D62 - Acute posthemorrhagic anemia SNOMED: 847582182 (3) Hyperkalemia ICD Codes: E87.5 - Hyperkalemia SNOMED: 47552798 (4) Recurrent seizures ICD Codes: G40.909 - Epilepsy, unspecified, not intractable, without status epilepticus SNOMED: 97918915, 65864926 (5) Aspiration pneumonia ICD Codes: J69.0 - Pneumonitis due to inhalation of food and vomit SNOMED: 942371985 (6) ARF (acute renal failure) ICD Codes: N17.9 - Acute kidney failure, unspecified SNOMED: 95389184 (7) ATN (acute tubular necrosis) ICD Codes: N17.0 - Acute kidney failure with tubular necrosis SNOMED: 90015597 Status: stable Assessment/Plan: o2 via nasal cannula resp care suctioning as needed iv abx iv lasix x1 o2 comfort care Subjective Allergies: Coded Allergies: No Known Allergies (Verified , 12/31/09) Subjective terminally extubated. appears comfortable. transferred to med/surg. on o2. awake. no distress. Objective Last 24 Hour Vital Signs Date Time Temp Pulse Resp B/P (MAP) Pulse Ox O2 Delivery O2 Flow Rate FiO2 11/29/19 12:00 97.3 100 38 129/67 (87) 94 11/29/19 09:00 Nasal Cannula 3.0 11/29/19 08:00 97.9 93 38 158/87 (110) 96 11/29/19 04:00 98.1 93 41 160/92 (114) 98 11/29/19 00:00 98.2 97 40 147/95 (112) 98 11/28/19 20:00 98.9 108 35 143/86 (105) 94 11/28/19 20:00 Nasal Cannula 3.0 11/28/19 18:45 96.1 105 40 141/96 (111) 96 105 11/28/19 18:00 112 42 153/69 (97) 100 11/28/19 17:00 105 47 148/53 (84) 99 11/28/19 16:00 3.0 11/28/19 16:00 Mechanical Ventilator 11/28/19 16:00 97.4 113 40 170/72 (104) 93 11/28/19 15:35 110 Intake and Output 11/28/19 11/29/19 19:00 07:00 Intake Total 1110 ml 1120 ml Output Total 655 ml 600 ml Balance 455 ml 520 ml Intake Free Water 100 ml IV Total 700 ml 600 ml Tube Feeding 360 ml 420 ml Other 50 ml Output Urine Total 655 ml 600 ml # Voids 1 # Bowel Movements 1 Height (Feet): 5 Height (Inches): 3.00 Weight (Pounds): 195 Objective General Appearance: WD/WN, awake. Neck: normal alignment, supple, normal inspection Cardiovascular: normal rate, regular rhythm Respiratory/Chest: no respiratory distress, no accessory muscle use, rhonchi - bilaterally Abdomen: normal bowel sounds, non tender, soft, no organomegaly, no mass Extremities: normal range of motion, non-tender Neurologic: unresponsive, aphasia Jeffrey Crowder MD Nov 29, 2019 15:23
[2019-11-29 16:00] VITALS: BP 153/90
--- NOTE | 2019-11-29 19:23 | NUR ---
NURSE NOTES: NO SIGNIFICANT CHANGES. REMAINED ON COMFORT MEASURES.
--- NOTE | 2019-11-29 19:23 | NUR ---
HAND-OFF: Report given to Teri GEIGER.
--- NOTE | 2019-11-29 19:39 | NUR ---
NURSE NOTES: RECEIVED PATIENT FROM FELY GARVIN. PATIENT IS ASLEEP, ON NC 3L, ON COMFORT MEASURES. TACHYPNEA NOTED. G-TUBE FEEDING PRESENT, INTACT AND PATENT, RUNNING NEPHRO AT 30ML/HR. PATIENT IS TOLERATING FEEDING WELL. PICC LINE IS INTACT AND PATENT. WOUND DRESSINGS INTACT AND DRY. BED IS LOCKED AND LOW, BED ALARMS ACTIVE, SIDE RAILS UP X2 AND PADDED, AND CALL LIGHT IS WITHIN REACH. WILL CONTINUE TO MONITOR.
--- NOTE | 2019-11-29 19:58 | General Progress Note ---
Assessment/Plan Status: stable Assessment/Plan: Assessment - h/o gastroparesis and GT feed intolerance - GJ tube dislodged and replaced with G tube - Resp failure - OBS - Sepeis, shock - CRF - Poor Px Recommendations - continue TF - add low dose reglan to avoid aspiration / discomfort - abx - elevate HOB - end of life care Subjective Allergies: Coded Allergies: No Known Allergies (Verified , 12/31/09) Subjective Above noted on regular floor on comfort measures tolerating TF Objective Last 24 Hour Vital Signs Date Time Temp Pulse Resp B/P (MAP) Pulse Ox O2 Delivery O2 Flow Rate FiO2 11/29/19 16:00 97.9 104 38 153/90 (111) 98 11/29/19 12:00 97.3 100 38 129/67 (87) 94 11/29/19 09:00 Nasal Cannula 3.0 11/29/19 08:00 97.9 93 38 158/87 (110) 96 11/29/19 04:00 98.1 93 41 160/92 (114) 98 11/29/19 00:00 98.2 97 40 147/95 (112) 98 11/28/19 20:00 98.9 108 35 143/86 (105) 94 11/28/19 20:00 Nasal Cannula 3.0 Intake and Output 11/28/19 11/29/19 19:00 07:00 Intake Total 1110 ml 1120 ml Output Total 655 ml 600 ml Balance 455 ml 520 ml Intake Free Water 100 ml IV Total 700 ml 600 ml Tube Feeding 360 ml 420 ml Other 50 ml Output Urine Total 655 ml 600 ml # Voids 1 # Bowel Movements 1 Height (Feet): 5 Height (Inches): 3.00 Weight (Pounds): 195 Objective Debilitated AA woman in ICU on vent NCAT (+) ETT coarse BS/ karol RR abd soft, NT, GT in good position no edema Non verbal Darrell Griffith MD Nov 29, 2019 19:58
[2019-11-29 20:00] VITALS: BP 161/73
[2019-11-29] MEDS ORDERED: Dyna-Hex 2% Top Sol 2oz TOPIC SCH (20:00)
[2019-11-29] MEDS: Metoclopramide 10mg/10ml Liq NG SCH (21:08)
[2019-11-30] VITALS: BP 130/95
[2019-11-30] MEDS: Morphine Sulfate 2mg/ml Inj(IV/IM USE ONLY) IVP PRN ×2 (01:32→05:09)
--- NOTE | 2019-11-30 03:15 | Progress Note ---
DATE: 11/29/2019 SUBJECTIVE: The patient has been terminally extubated. She is on nasal cannula. She is in no respiratory distress. Ongoing suctioning. Antimicrobials. Comfort care. OBJECTIVE: VITAL SIGNS: Blood pressure 129/69, heart rate 100, respiratory rate 38, afebrile. LUNGS: Rhonchi. No wheezing. CARDIAC: Regular rhythm. Rapid rate. Normal S1, S2. EXTREMITIES: 1+ edema. IMPRESSION: Multiorgan system failure. PLAN: 1. Comfort management. 2. Respiratory hygiene. 3. Antimicrobials. 4. Nasal oxygen. 5. Diuresis for fluid mobilization. 6. DNR/DNI. Kavon Peña M.D. DR: MESHA JOB#: [id number] CC:
[2019-11-30 04:00] VITALS: BP 138/103
[2019-11-30] MEDS: Metoclopramide 10mg/10ml Liq NG SCH ×2 (05:08→14:09)
--- NOTE | 2019-11-30 07:28 | NUR ---
HAND-OFF: Report given to FELY Almaguer.
[2019-11-30 08:00] VITALS: BP 145/75
--- NOTE | 2019-11-30 08:00 | NUR ---
NURSE NOTES: Patient opens eyes when name called,nonverbal.02 on at 2l N/C,no distress noted at this time.G-tube feedings as ordered,no residual noted.HOB is elevated.Barron catheter is in place and draining yellow urine.Side rails padded.Bed alarm is on.
[2019-11-30] MEDS: levETIRAcetam 500mg/NS100ml 100 ML IVPB SCH (08:52)
[2019-11-30] MEDS: Pantoprazole Inj IVP SCH (08:52)
--- NOTE | 2019-11-30 09:45 | Critical Care Progress Note ---
Assessment/Plan Assessment/Plan Respiratory failure, acute on chronic. Alkalemia due to hyperventilation, chronic metabolic alkalosis, chronic respiratory acidosis, leukocytosis, sepsis, anemia, hyponatremia, hyperkalemia, chronic renal failure, severe protein-calorie malnutrition. 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 - Subjective ROS Limited/Unobtainable: Yes Condition: grave EKG Rhythm: Sinus Rhythm I&O: Intake and Output 11/29/19 11/30/19 19:00 07:00 Intake Total 540 ml 850 ml Output Total 1400 ml Balance -860 ml 850 ml Intake Free Water 50 ml 120 ml IV Total 100 ml 400 ml Tube Feeding 390 ml 330 ml Output Urine Total 1400 ml Critical Care - Objective ET-Tube: 7.5 ET Position: 24 Last 24 Hour Vital Signs Date Time Temp Pulse Resp B/P (MAP) Pulse Ox O2 Delivery O2 Flow Rate FiO2 11/30/19 08:00 97.8 98 28 145/75 (98) 94 11/30/19 04:00 99.8 101 58 138/103 (115) 96 11/30/19 00:00 97.9 103 60 130/95 (107) 97 11/29/19 21:00 Nasal Cannula 3.0 11/29/19 20:00 97.7 101 52 161/73 (102) 97 11/29/19 16:00 97.9 104 38 153/90 (111) 98 11/29/19 12:00 97.3 100 38 129/67 (87) 94 Objective: WDWN reduced LOC reduced breath sounds bilaterally without rhonchi or wheeze [id number] without MRG NABS nontender ; no distention feeding tube in place no CC skin noted reviewed and edited Accucheck: 251 Torey Douglass MD Nov 30, 2019 09:45
--- NOTE | 2019-11-30 10:23 | Surgery Progress Note ---
Surgery Progress Note Subjective Additional Comments respiratory declining prognosis guarded comfort measures likely pass today given respiratory drive Objective Last 24 Hour Vital Signs Date Time Temp Pulse Resp B/P (MAP) Pulse Ox O2 Delivery O2 Flow Rate FiO2 11/30/19 08:00 97.8 98 28 145/75 (98) 94 11/30/19 04:00 99.8 101 58 138/103 (115) 96 11/30/19 00:00 97.9 103 60 130/95 (107) 97 11/29/19 21:00 Nasal Cannula 3.0 11/29/19 20:00 97.7 101 52 161/73 (102) 97 11/29/19 16:00 97.9 104 38 153/90 (111) 98 11/29/19 12:00 97.3 100 38 129/67 (87) 94 I&O Intake and Output 11/29/19 11/30/19 19:00 07:00 Intake Total 540 ml 850 ml Output Total 1400 ml Balance -860 ml 850 ml Intake Free Water 50 ml 120 ml IV Total 100 ml 400 ml Tube Feeding 390 ml 330 ml Output Urine Total 1400 ml Dressing: other Wound: other Drains: other Cardiovascular: other Respiratory: other Abdomen: other Extremities: other Plan Problems: (1) Decubitus skin ulcer Assessment & Plan: Pt presented on admission with multiple pressure injuries. DTPI sacrum . Base of injury is indurated,purple with areas that are maroon in colour. An area of fluctuance noted at sacrococcygeal area. Borders are irregular (L)8.5cm x (W)9.3cm.Historical scar also noted within base of Sacral pressure injury. DTPI medial L heel. Base of injury fluctuant,maroon with surrounding non- blanching erythema. (L)1.7cm x (W)1.6cm. DTPI medial R heel. Base of injury is maroon and fluctuant(L)3.1cm x (W)2.5cm. Tx.Plan: Apply Moisture Barrier Paste to Sacrum. Cover with Optifoam drsg. Change every 3 days and prn. Apply Cavilon Skin Barrier to both heels. Cover each heel with Optifoam drsg. Change every 7 days and prn. APM/VALERIE Mattress. Reposition at least every 2 hours or as tolerated. Off-load heels with pillow. Patient is at high risk for deterioration of wounds opening of DTI and formation of worsening decubitus will need close monitoring and significant amount of care to ensure improvement. Nutritional optimization. Will follow with recommendations thank you (2) Failure to thrive in adult Assessment & Plan: Not tolerating tube feeds regurgitation high residuals DAILY ESTIMATED NEEDS: Needs based on Critical care, sepsis, wound, ARF/ 57.7kg abw 22-30 kcals/kg 7602-9868 total kcals 0.8-1.3 (increase w/ renal fxn improvement) g protein/kg 46-75 g total protein 25-30 mL/kg 2576-1702 total fluid mLs NUTRITION DIAGNOSIS: 1) Swallowing difficulty r/t dysphagia as evidenced by pt is Jtube dep, currently orally intubated, NPO. 2) Altered nutrition related lab values r/t respiratory failure, DM, ARF, sepsis as evidenced by COW >45*, elev pH 7.616*, elev K (7.2*), elev creat (8.8), elev BUN (178), elev BG (228), elev LA, elev wbc (22.2*) CURRENT TF:NPO ENTERAL NUTRITION RECOMMENDATIONS: Nepro @ 40ml/hr x 22 hrs to provide 880ml, 1584kcal, 71g prot, 640ml free water * Rec Nepro at this time given ARF, +hyperkalemia w/ creat 8.8. * When medically appropriate, initiate Nepro @ 20ml/hr x 6 hrs, advance 10ml q 4 -6 hrs as tolerated to goal rate * Hold 1 hr before and after Synthroid med * HOB over 30 degrees/ water flush per MD ---- W/ improved renal fxn and normalized lytes, rec Glucerna 1.2 @ 60ml/hr x 22 hrs to provide 1320ml, 1584 kcal, 79g pro, 1063ml free H2O ADDITIONAL RECOMMENDATIONS: 1) Monitor lytes and renal fxn closely -> admitted w/ creat > 8.0, creat previous adm < 2.0 -> K critically elev, s/p kayexalate. -> Rec Nepro at this time 2) Wound care: add Maik BID as tolerated/ f/up w/ WC eval 3) Calibrated bedscale wt- w/ added p200 mattress + pump 4) Pt on Synthroid HEALTH INFORMATION ADMINISTRATOR:currently not on the med list. (3) Acute respiratory failure Assessment & Plan: As per pulmonology available if trach needs dnr/dni family considering care plan not interested in trach at this time comfort care supportive care tube out on christy BlueJared Nov 30, 2019 10:23
[2019-11-30 12:00] VITALS: BP 128/89
--- NOTE | 2019-11-30 13:04 | NUR ---
DISCHARGE PLANNING PATIENT HAS BEEN REFERRED BACK TO [facility] P: [phone] F: [phone]
--- NOTE | 2019-11-30 13:06 | NUR ---
CASE MANAGEMENT:REVIEW SI;AC RENAL FAILURE. ASPIRATION PNA. RESPIRATORY FAILURE. 99.8 103 60 161/73 94% 3L NC NO LABS AVAILABLE IS;LASIX IV PROTONIX IC MORPHINE IV Q1 HR PRN KEPPRA IV Q12 HRS MED SURG STATUS DCP;FROM [facility] PLAN; SUPPORTIVE CARE OXYGEN MORPHINE PALLIATIVE CARE DC PLANNING
--- NOTE | 2019-11-30 13:25 | Infectious Diseases Prog Note ---
Assessment/Plan Assessment/Plan A 1. Staph aureus & E. coli pneumonia treated 2. Acute renal failure 3. diabetes mellitus 4. CHF 5. CVA 6.Acute respiratory failure 7. 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 on comfort care will sign off Subjective ROS Limited/Unobtainable: Yes Allergies: Coded Allergies: No Known Allergies (Verified , 12/31/09) Objective Vital Signs Last 24 Hour Vital Signs Date Time Temp Pulse Resp B/P (MAP) Pulse Ox O2 Delivery O2 Flow Rate FiO2 11/30/19 09:00 Nasal Cannula 3.0 11/30/19 08:00 97.8 98 28 145/75 (98) 94 11/30/19 04:00 99.8 101 58 138/103 (115) 96 11/30/19 00:00 97.9 103 60 130/95 (107) 97 11/29/19 21:00 Nasal Cannula 3.0 11/29/19 20:00 97.7 101 52 161/73 (102) 97 11/29/19 16:00 97.9 104 38 153/90 (111) 98 Height (Feet): 5 Height (Inches): 3.00 Weight (Pounds): 205 HEENT: mucous membranes moist Respiratory/Chest: lungs clear, other - agonal breathing Cardiovascular: normal rate Abdomen: soft, non tender, other - feeding Extremities: other - pedal edema Neurologic/Psychiatric: unresponsiveness, aphasia Current Medications Medications (Trade) Dose Ordered Sig/Aaron Route PRN Reason Start Time Stop Time Status Last Admin Dose Admin Acetaminophen (Tylenol) 650 mg Q4H PRN GT Mild Pain/Temp > 100.5 11/28/19 23:30 12/17/19 07:29 Chlorhexidine Gluconate (Arabella-Hex 2%) 1 applic DAILY@2000 TOPIC 11/29/19 20:00 12/15/19 19:59 11/29/19 20:19 Dextrose (Dextrose 50%) 25 ml Q30M PRN IV Hypoglycemia 11/28/19 23:00 12/14/19 18:59 Dextrose (Dextrose 50%) 50 ml Q30M PRN IV Hypoglycemia 11/28/19 23:00 12/14/19 18:59 Levetiracetam 100 ml @ 400 mls/hr Q12HR IVPB 11/29/19 09:00 12/14/19 14:59 11/30/19 08:52 Metoclopramide HCl (Reglan) 5 mg EVERY 8 HOURS NG 11/29/19 22:00 12/29/19 21:59 11/30/19 05:08 Morphine Sulfate (Morphine Sulfate) 2 mg Q1H PRN IVP For Pain 11/28/19 23:00 12/05/19 14:59 11/30/19 05:09 Pantoprazole (Protonix) 40 mg DAILY IVP 11/29/19 09:00 12/14/19 14:14 11/30/19 08:52 Bay Richter MD Nov 30, 2019 13:24
--- NOTE | 2019-11-30 13:43 | NUR ---
*-* INSURANCE *-* UPDATED CLINICALS AND REVIEWS HAVE BEEN FAXED TO: [employer]UM[employer] Lucas #[phone] fax# [phone]
--- NOTE | 2019-11-30 14:27 | General Progress Note ---
Assessment/Plan Problem List: (1) Shock ICD Codes: R57.9 - Shock, unspecified SNOMED: 18293354 (2) Anemia due to acute blood loss ICD Codes: D62 - Acute posthemorrhagic anemia SNOMED: 501645073 (3) Hyperkalemia ICD Codes: E87.5 - Hyperkalemia SNOMED: 65397188 (4) Recurrent seizures ICD Codes: G40.909 - Epilepsy, unspecified, not intractable, without status epilepticus SNOMED: 46822674, 09929156 (5) Aspiration pneumonia ICD Codes: J69.0 - Pneumonitis due to inhalation of food and vomit SNOMED: 218515793 (6) ARF (acute renal failure) ICD Codes: N17.9 - Acute kidney failure, unspecified SNOMED: 36177792 (7) ATN (acute tubular necrosis) ICD Codes: N17.0 - Acute kidney failure with tubular necrosis SNOMED: 58264160 Status: stable Assessment/Plan: o2 via nasal cannula resp care suctioning as needed morphine/ativan iv abx iv lasix x1 o2 comfort care d/w dtr. agrees with poc Subjective ROS Limited/Unobtainable: Yes Constitutional: Reports: malaise, weakness HEENT: Reports: no symptoms Cardiovascular: Reports: no symptoms Respiratory: Reports: shortness of breath Gastrointestinal/Abdominal: Reports: difficulty swallowing Genitourinary: Reports: no symptoms Neurologic/Psychiatric: Reports: pre-existing deficit, seizure Endocrine: Reports: no symptoms Hematologic/Lymphatic: Reports: no symptoms Allergies: Coded Allergies: No Known Allergies (Verified , 12/31/09) All Systems: reviewed and negative except above Subjective terminally extubated. appears comfortable but more sob today. transferred to med /surg. on o2. awake. no distress. + edema Objective Last 24 Hour Vital Signs Date Time Temp Pulse Resp B/P (MAP) Pulse Ox O2 Delivery O2 Flow Rate FiO2 11/30/19 12:00 98.2 97 22 128/89 (102) 93 11/30/19 09:00 Nasal Cannula 3.0 11/30/19 08:00 97.8 98 28 145/75 (98) 94 11/30/19 04:00 99.8 101 58 138/103 (115) 96 11/30/19 00:00 97.9 103 60 130/95 (107) 97 11/29/19 21:00 Nasal Cannula 3.0 11/29/19 20:00 97.7 101 52 161/73 (102) 97 11/29/19 16:00 97.9 104 38 153/90 (111) 98 Intake and Output 11/29/19 11/30/19 19:00 07:00 Intake Total 540 ml 850 ml Output Total 1400 ml Balance -860 ml 850 ml Intake Free Water 50 ml 120 ml IV Total 100 ml 400 ml Tube Feeding 390 ml 330 ml Output Urine Total 1400 ml Height (Feet): 5 Height (Inches): 3.00 Weight (Pounds): 205 Objective General Appearance: WD/WN, awake. Neck: normal alignment, supple, normal inspection Cardiovascular: normal rate, regular rhythm Respiratory/Chest: no respiratory distress, no accessory muscle use, rhonchi - bilaterally Abdomen: normal bowel sounds, non tender, soft, no organomegaly, no mass Extremities: normal range of motion, non-tender Neurologic: unresponsive, aphasia Jeffrey Crowder MD Nov 30, 2019 14:27
[2019-11-30 16:00] VITALS: BP 139/67
--- NOTE | 2019-11-30 19:09 | NUR ---
NURSE NOTES Oral care given,patient tolerating G-tube feedings,still nonverbal but will open eyes when name called.Be alarm on.
--- NOTE | 2019-11-30 19:30 | NUR ---
HAND-OFF: Report given to Camila GEIGER.
--- NOTE | 2019-11-30 19:36 | NUR ---
NURSE NOTES: Patient is in bed and asleep. On nasal cannula 3L. Comfort measures. Gtube in place and running as ordered. TAMIKO PICC line in place. Bed locked and in lowest position. HOB elevated. Bed alarm activated. Side rails padded for seizure precautions. Will continue to monitor.
--- NOTE | 2019-11-30 20:05 | NUR ---
PRONOUNCEMENT: No Code. Called to pronounce patient. Absence of spontaneous respirations, no cardiac or breath sounds on auscultation. Pupils fixed and dilated. No carotid pulse or chest movement. Patient at [address] DR Crowder notified PER Matty Buchanan, . Family was notified at [address] Crowder. .
--- NOTE | 2019-11-30 20:30 | NUR ---
NURSE NOTES: Patient at 2004. pronounced by Charge nurse, Della Lemus. Dr. Crowder notified; he notified the patient's daughter at 2029. Will follow up with family regarding arrangements. No belongings. [employer] notified at 2023.
--- NOTE | 2019-11-30 20:50 | NUR ---
NURSE NOTES: Spoke with patient's daughter. Stated she is on her way to see the patient.
--- NOTE | 2019-11-30 23:17 | General Progress Note ---
Assessment/Plan Status: stable Assessment/Plan: Assessment - h/o gastroparesis and GT feed intolerance - GJ tube dislodged and replaced with G tube - Resp failure - OBS - Sepeis, shock - CRF - Poor Px Recommendations - continue TF - reglan - abx - elevate HOB - end of life care Subjective Allergies: Coded Allergies: No Known Allergies (Verified , 12/31/09) Subjective Above noted on regular floor on comfort measures tolerating TF Objective Last 24 Hour Vital Signs Date Time Temp Pulse Resp B/P (MAP) Pulse Ox O2 Delivery O2 Flow Rate FiO2 11/30/19 16:00 97.9 98 28 139/67 (91) 96 11/30/19 12:00 98.2 97 22 128/89 (102) 93 11/30/19 09:00 Nasal Cannula 3.0 11/30/19 08:00 97.8 98 28 145/75 (98) 94 11/30/19 04:00 99.8 101 58 138/103 (115) 96 11/30/19 00:00 97.9 103 60 130/95 (107) 97 Intake and Output 11/29/19 11/30/19 19:00 07:00 Intake Total 540 ml 850 ml Output Total 1400 ml Balance -860 ml 850 ml Intake Free Water 50 ml 120 ml IV Total 100 ml 400 ml Tube Feeding 390 ml 330 ml Output Urine Total 1400 ml Height (Feet): 5 Height (Inches): 3.00 Weight (Pounds): 205 Objective Debilitated AA woman in ICU on vent NCAT (+) ETT coarse BS/ karol RR abd soft, NT, GT in good position no edema Non verbal Darrell Griffith MD Nov 30, 2019 23:17
--- NOTE | 2019-12-01 01:15 | Progress Note ---
DATE: 11/30/2019 CARDIOLOGY PROGRESS NOTE SUBJECTIVE: The patient is somewhat more congested today. OBJECTIVE: VITAL SIGNS: Blood pressure 128/89, heart rate 97, and respiratory rate 22. LUNGS: Bilateral breath sounds. Rhonchi. CARDIAC: Regular rhythm and rate. Normal S1 and S2. ABDOMEN: Soft. GJ tube intact. EXTREMITIES: Trace edema. IMPRESSION: 1. Multiorgan system failure. 2. Status post respiratory failure, now extubated terminally and placed on comfort care protocol. PLAN: 1. Antimicrobials. 2. Pain control. 3. Respiratory hygiene. 4. Diuresis to improve respiratory parameters for comfort. 5. We will follow. Kavon Peña M.D. DR: KEN JOB#: [id number] CC:
--- NOTE | 2019-12-01 11:18 | Discharge Summary ---
Discharge Summary Discharge Summary _ SUMMARY DATE OF ADMISSION: 11/14/2019 DATE OF DISCHARGE: 11/30/2019 REASON FOR ADMISSION: 79 years old female with past medical history of CVA, chronic kidney disease, congestive heart failure, diabetes mellitus, recently was hospitalized for aspiration pneumonia and was discharged to halfway facility. On the morning of transfer J-tube became clogged. Patient was in process of transfer to the hospital and was cleaned by BRANCH ADMINISTRATOR , while she had seizure and apparent cardiac arrest. CPR was initiated, and when paramedics arrived she had pulse. Patient was intubated in emergency room. Laboratory work-up revealed significant leukocytosis WBC 24. Sodium 150, potassium 5.9. Troponin - 0.08. Creatinine 8.8. ( last week 2.6). Urinalysis revealed pyuria, positive leukocyte esterase, moderate bacteria. Chest x-ray confirmed endotracheal tube placement and showed interstitia density bilaterally. Patient pancultured, started on empiric antibiotic and admitted to ICU for further management. CONSULTANTS: call center rn Dr. Peña pulmonary Dr. Douglass ID specialist Dr. Preito GI specialist Dr. Griffith metal flooring installer Dr. Moise [facility] COURSE: Patient admitted to intensive care unit. Patient started on broad-spectrum antibiotics and aggressive hydration with hypotonic solution. Ventilator support provided. Blood pressure did not respond to IV fluids. Patient required start of pressors. Hemodynamic status was closely monitored with goal to keep mean arterial blood pressure above 65. Pressors titrated accordingly. Pulmonary toilet with bronchodilator provided as needed. Patient suctioned as needed. Patient was followed-up with ABG. Ventilator settings titrated based on ABG results. Patient initially was kept n.p.o. Seizure precaution maintained. Patient was receiving IV Keppra. Echocardiogram revealed preserved ejection fraction of 60 to 65% with no evidence of left ventricular hypertrophy. Moderate mitral regurgitation. Right ventricular systolic pressure of 54 consistent with moderate pulmonary hypertension. Venous duplex bilateral lower extremity was negative for evidence of acute DVT. PICC line was placed for IV access. Nasal swab was negative for influenza. Blood cultures were negative. Sputum culture revealed MRSA and E. coli. Urine culture revealed mixed urogenital contaminants. Antibiotic further provided as per ID specialist recommendation Efforts were made to wean off pressors. Volume resuscitation provided. Dopamine changed to renal dose . Efforts were continued to wean. CODE STATUS with DNR /DNI per family wishes after admission and intubation. DVT and GI prophylaxis provided. Renal parameters and electrolytes were closely monitored. Electrolytes corrected as needed , and nephrotoxins were avoided as possible. Family did not want to proceed with dialysis . Creatinine was trending down with IV hydration. Follow-up chest x-ray revealed findings concerning for CHF. Worsening perihilar pulmonary edema and pulmonary vascular congestion. Subsegmental atelectasis versus infiltrate in the retrocardiac region/left lung base. Spot diuresis provided with close monitoring of volumes and cariorenal parametrs. GI specialist followed. Patient had gastrostomy tube placed in the past , which recently converted to gastrojejunostomy tube due to tube feeding intolerance. GI specialist reverted back to simple gastrostomy tube , to use for medication. Initially tube feeding was on hold and used only for medication. Patient eventually started on tube feeding with strict aspiration precautions. Patient had high residuals and was unable to tolerate tube feeding. Reglan provided [id number]. Head of bed was elevated at all time. Patient presented with multiply pressure injuries. Wound care provided as per surgeon recommendation. Family decided on comfort care. Per family wishes , patient was terminally extubated 11/27. Supplemental oxygen provided via nasal cannula. Pulmonary toilet provided. Patient was suctioned as needed. Comfort care provided. Pain management was addressed. Patient condition was rapidly deteriorating. Patient was pronounced on 11/29 at 20:05. Cause of : cardiopulmonary arrest FINAL DIAGNOSES: Status post cardiopulmonary arrest Acute respiratory failure requiring intubation Septic shock Staph aureus and E. coli pneumonia Acute renal failure on chronic kidney disease Toxic metabolic encephalopathy Multiorgan system failure Severe protein calorie malnutrition Electrolyte abnormalities ( multiple) Dehydration GJ tube dislodgment, status post replacement with G-tube History of gastroparesis and G-tube feeding intolerance Diabetes mellitus Acute on chronic diastolic congestive heart failure Hypertensive heart disease History of CVA Acute myocardial ischemia Advanced dementia Hypothyroidism Multiply pressure injury , present on admission Comfort care I have been assigned to dictate discharge summary for this account. I was not involved in the patient's management. Chica Brizuela NP Dec 01, 2019 11:18
--- NOTE | 2019-12-01 14:08 | NUR ---
*-* INSURANCE *-* DISCHARGE SUMMARY HAS BEEN FAXED Keisha: [employer]UM[employer] Lucas #[phone] fax# [phone]
== END 2019-11-30 20:05 | disposition expired | DRG 720 ==
LOC: EDBD 10:16 → EMR 11:01 → ICU 11:47 → EDBEDREQ 13:05 → 4E 11-28 18:35
PROC: 5A1955Z Respiratory Ventilation, Greater than 96 Consecutive Hours (ICD-10-PCS; principal; 2019-11-14)
PROC: 0BH17EZ Insertion of Endotracheal Airway into Trachea, Via Natural or Artificial Opening (ICD-10-PCS; principal; 2019-11-14)
PROC: 06HM33Z Insertion of Infusion Device into Right Femoral Vein, Percutaneous Approach (ICD-10-PCS; 2019-11-15)
PROC: 02HV33Z Insertion of Infusion Device into Superior Vena Cava, Percutaneous Approach (ICD-10-PCS; 2019-11-16)
PROC: B548ZZA Ultrasonography of Superior Vena Cava, Guidance (ICD-10-PCS; 2019-11-16)
DX: A41.9 Sepsis, unspecified organism (principal); J69.0 Pneumonitis due to inhalation of food and vomit; I46.9 Cardiac arrest, cause unspecified; I13.0 Hypertensive heart and chronic kidney disease with heart failure and stage 1 through stage 4 chronic kidney disease, or unspecified chronic kidney disease; N18.9 Chronic kidney disease, unspecified; R65.21 Severe sepsis with septic shock; E43 Unspecified severe protein-calorie malnutrition; N17.0 Acute kidney failure with tubular necrosis; J96.20 Acute and chronic respiratory failure, unspecified whether with hypoxia or hypercapnia; I50.33 Acute on chronic diastolic (congestive) heart failure; E11.22 Type 2 diabetes mellitus with diabetic chronic kidney disease; Z86.73 Personal history of transient ischemic attack (TIA), and cerebral infarction without residual deficits; G40.909 Epilepsy, unspecified, not intractable, without status epilepticus; K94.23 Gastrostomy malfunction; E86.1 Hypovolemia; E87.5 Hyperkalemia; E87.0 Hyperosmolality and hypernatremia; E86.0 Dehydration; Z68.36 Body mass index [BMI] 36.0-36.9, adult; R13.10 Dysphagia, unspecified; Z74.01 Bed confinement status; L89.156 Pressure-induced deep tissue damage of sacral region; L89.626 Pressure-induced deep tissue damage of left heel; L89.616 Pressure-induced deep tissue damage of right heel; R62.7 Adult failure to thrive; J15.212 Pneumonia due to Methicillin resistant Staphylococcus aureus; J15.5 Pneumonia due to Escherichia coli; E03.9 Hypothyroidism, unspecified; G93.41 Metabolic encephalopathy; I25.9 Chronic ischemic heart disease, unspecified; K31.84 Gastroparesis; D64.9 Anemia, unspecified; F03.90 Unspecified dementia, unspecified severity, without behavioral disturbance, psychotic disturbance, mood disturbance, and anxiety; Z51.5 Encounter for palliative care
CPT/HCPCS: 31500; 36415; 36569; 36600; 71045; 74018; 76937; 80048; 80053; 81003; 82043; 82044; 82533; 82550; 82553; 82570; 82803; 82962; 83605; 83735; 83880; 84100; 84300; 84443; 84484; 85007; 85025; 85610; 85730; 86710; 86850; 86900; 86901; 86920; 87040; 87070; 87081; 87086; 87181; 87205; 89050; 93005; 93306; 93970; 94002; 94003; 94664; 96365; 96368; 96375; 99291; J1815; J7030; J8499